=== PATIENT | female | born 1940 | race Caucasian/White ===

== ENCOUNTER 2017-07-09 15:54 | Emergency (ER) | payer MEDICARE, OTHER ==
[~2017-07-09] VITALS: Ht 175.3 cm; Wt 91.2 kg
--- OUTSIDE RECORDS SUMMARY | ~2017-07-09 | XMS | Clinical Summary ---
Demographics + + + | Address | [address] | | | [place] [address] | + + + | Home Phone [...] | + + + + + | luciana Moscoso | ECON | Unknown | | + + + + + | PARKER GOMEZ | ECON | [address] | | | | | [place] | | | | | [phone] | | + + + + + Care Team Providers + +------+ + | Care Trench Digger Name | Role | Phone | + +------+ + | Long Copeland MD | PP | | + +------+ + Source Comments [facility] Allergies + + + + + + [...] | + + + + + + Current Medications + + + +---------+------+------+-------+ | Prescription | Sig. | Disp. | Refills | Star | End | Statu | | | | | | t | Date | s | | | | | | Date | | | + + + +---------+------+------+-------+ | levothyroxine | Take 112 mcg by | | | | | Activ | | (LEVOTHROID) 112 mcg | mouth once daily. | | | | | e | | Oral Tablet | | | | | | | + + + +---------+------+------+-------+ | doxepin 75 mg Oral | Take 10 mg by mouth | | | | | Activ | | Capsule | once daily at | | | | | e | | | bedtime. | | | | | | + + + +---------+------+------+-------+ | gabapentin 300 mg | Take 300 mg by mouth | | | | | Activ | | Oral Capsule | three times daily. | | | | | e | + + + +---------+------+------+-------+ | DULoxetine | Take 60 mg by mouth | | | | | Activ | | (CYMBALTA) 60 mg | once daily. | | | | | e | | Oral Capsule, | | | | | | | | Delayed | | | | | | | | Release(E.C.) | | | | | | | + + + +---------+------+------+-------+ | simvastatin 40 mg | Take 40 mg by mouth | | | | | Activ | | Oral Tablet | once daily in the | | | | | e | | | evening. | | | | | | + + + +---------+------+------+-------+ | nabumetone | Take 750 mg by mouth | | | | | Activ | | (RELAFEN) 750 mg | two times daily. | | | | | e | | Oral Tablet | | | | | | | + + + +---------+------+------+-------+ | lisinopril 20 mg | Take 20 mg by mouth | | | | | Activ | | Oral Tablet | once daily. | | | | | e | + + + +---------+------+------+-------+ | clobetasol 0.05 % | Apply to affected | | | | | Activ | | Topical Cream | area two times | | | | | e | | | daily. Apply for up | | | | | | | | to 2 weeks. | | | | | | + + + +---------+------+------+-------+ | triamcinolone | Apply to affected | | | | | Activ | | acetonide [...] 55 | Instill 2 Sprays | | | | | Activ | | mcg Nasal Aerosol, | into each nostril | | | | | e | | [place] | once daily. | | | | | | + + + +---------+------+------+-------+ | | Take 1 Tab by mouth | | | | | Activ | | oxyCODONE-acetaminop [...] CALCIUM | Take by mouth. | | | | | Activ | | CARBONATE/VITAMIN D3 | | | | | | e | | (CALCIUM 600 + D | | | | | | | | OR) | | | | | | | + + + +---------+------+------+-------+ | ascorbic acid SR | Take 1,000 mg by | | | | | Activ | | (VITAMIN C) 1,000 mg | mouth two times | | | | | e | | Oral Tablet | daily. | | | | | | + + + +---------+------+------+-------+ | cyanocobalamin | Take 1,000 mcg by | | | | | Activ | | (VITAMIN B-12) 1,000 | mouth once daily. | | | | | e | | mcg Oral Tablet | | | | | | | + + + +---------+------+------+-------+ | folic acid 800 mcg | Take 800 mcg by | | | | | Activ | | Oral Tablet | mouth once daily. | | | | | e | + + + +---------+------+------+-------+ | cholecalciferol, | Take 1,000 Units by | | | | | Activ | | Vitamin D3, 1,000 | mouth every seven | | | | | e | | unit Oral Tablet | days. | | | | | | + + + +---------+------+------+-------+ | | Take by mouth. | | | | | Activ | | Glucosamine-Chondroi [...] ORAL | Take by mouth. | | | | | Activ | | | | | | | | e | + + + +---------+------+------+-------+ | Aspirin 81 mg Oral | Take 81 mg by mouth | | | | | Activ | | Tablet | once daily. | | | | | e | + + + +---------+------+------+-------+ | estradiol | Place 1 g into the | 42.5 g | 2 | 05/ | | Activ | | (ESTRACE) 0.01 % | vagina twice weekly | | | 10/29 | | e | | (0.1 mg/g) Vaginal | (on Friday and | | | 11 | | | | Cream | ). | | | | | | + + + +---------+------+------+-------+ | ciprofloxacin | Take 1 Tab by mouth | 14 Tab | 0 | 10/10 | | Activ | | (CIPRO) 500 mg Oral | every twelve hours. | | | 3 | | e | | Tablet | | | | 11 | | | + + + +---------+------+------+-------+ | acetaminophen | Take 1 Tab by mouth | | | 06/ | | Activ | | (TYLENOL) 500 mg | every four hours as | | | 620 | | e | | Oral Tablet | needed. | | | 11 | | | + + + +---------+------+------+-------+ Active Problems Not on file Family History + + +------+ + | [...] + +---------+ + | Alcohol Use | Drinks/We | oz/Week | Comments | | | ek | | | + + +---------+ + | Yes | | | 0-3/day- wine | + + +---------+ + + + + | Sex Assigned at | Date Recorded | | | | + + + | Not on file | | + + + Last Filed Vital Signs + + + + | Vital Sign | Reading | Time Taken | + + + + | Blood Pressure | 140/88 | 11/29/2010 10:56 AM PDT | + + + + | Pulse | 72 | 11/29/2010 10:56 AM PDT | + + + + | Temperature | 36.6 C (97.8 F) | 11/29/2010 10:56 AM PDT | + + + + | Respiratory Rate | 16 | 10/26/2010 9:21 AM PDT | + + + + | Oxygen Saturation | 97% | 10/26/2010 9:21 AM PDT | + + + + | Inhaled Oxygen | - | - | | Concentration | | | + + + + | Weight | 104.3 kg (229 lb 15 | 10/26/2010 6:00 AM PDT | | | oz) | | + + + + | Height | 174.5 cm (5' 8.7") | 10/26/2010 6:00 AM PDT | + + + + | Body Mass Index | 34.25 | 10/26/2010 6:00 AM PDT | + + + + Plan of Treatment + + + + + | Health Maintenance | Due Date | Last Done | Comments | + + + + + | MAMMOGRAM | | | | | | 9 | | | + + + + + | INFLUENZA VACCINE | | | | | (FLU SHOT) | 7 | | | + + + + + Results Not on filefrom Last 3 Months
--- OUTSIDE RECORDS SUMMARY | ~2017-07-09 | XMS | Clinical Summary ---
Demographics + + + | Address | [address] | | | [place] [address] | + + + | Home Phone [...] + | PARKER GOMEZ | ECON | [address] | | | | | [place] | | | | | [phone] | | + + + + + Care Team Providers + +------+ + | Care Reading Aide Name | Role | Phone | + +------+ + | Long Copeland MD | PP | | + +------+ + Source Comments [facility] In[facility] Allergies + + + + + + [...] | | | | e | | Aspers | once daily. | | | | [...]
[~2017-07-09 15:54] MED LIST: ADVAIR 100-501 EACH INH; ALPRAZOLAM0.25 MG PO; BREO ELLIPTA I1 EACH INH; CYCLOBENZAPRINE10 MG PO; CYMBALTA30 MG PO; DOXEPIN HCL75 MG PO; DULOXETINE HCL60 MG PO; GABAPENTIN300 MG PO; LEVAQUIN500 MG PO; LEVOTHYROXINE112 MCG PO; LISINOPRIL20 MG PO; NABUMETONE750 MG PO; NALTREXONE HCL5 GM PO; NASACORT10.8 ML NAS; OXYCODONE HCL5 MG PO; PREDNISONE20 MG PO; SIMVASTATIN20 MG PO; SIMVASTATIN40 MG PO; VENTOLIN HFA18 GM INH
[2017-07-09] MEDS ORDERED: AUGMENTIN 875-1 EACH PO (17:51)
[2017-07-09] MEDS ORDERED: METHYLPREDNISOLO4 M1 PO (17:51)
[2017-07-09] MEDS ORDERED: TESSALON PERLE100 MG PO (17:51)
== END 2017-07-09 18:22 | disposition home or self-care (01) ==
LOC: ED 15:54
DX: J40 Bronchitis, not specified as acute or chronic (principal); J06.9 Acute upper respiratory infection, unspecified; R94.5 Abnormal results of liver function studies; J44.9 Chronic obstructive pulmonary disease, unspecified; I10 Essential (primary) hypertension; E78.00 Pure hypercholesterolemia, unspecified; Z88.2 Allergy status to sulfonamides; Z88.5 Allergy status to narcotic agent; Z79.899 Other long term (current) drug therapy
CPT/HCPCS: 71046; 80053; 81001; 85025; 94640; 99283

== ENCOUNTER 2017-10-18 10:25 | Inpatient (IN) | payer MEDICARE, OTHER ==
[~2017-10-18] VITALS: Ht 175.3 cm; Wt 91.2 kg
[~2017-10-18 10:25] MED LIST changes: +AUGMENTIN 875-1 EACH PO; +METHYLPREDNISOLO4 M1 PO; +TESSALON PERLE100 MG PO
--- NOTE | 2017-10-18 15:30 | NUR ---
PT CAME TO THE UNIT VIA STRETCHER FROM THE ED AT APPROXIMATELY 1455. PT WAS ABLE TO AMBULATE INDEPENDENTLY AND TOLERATED WELL. PT WAS HOOKED UP TO LOW INTERMITTENT SUCTION VIA NG TUBE, LIGHT FROTHY DRAINAGE CONSISTENT. PT DENIES MUCH PAIN BUT TENDERNESS NOTED IN THE LEFT LOWER QUADRANT. PT STATES SHE HAS CHRONIC FIBROMYALGIA. NO DISTRESS.
--- NOTE | 2017-10-18 18:42 | NUR ---
PT HAS HAD A GOOD SHIFT, AND DUE TO HER CHRONIC FIBROMYALGIA, SHE IS HAVING GENERALIZED PAIN PRIOR TO SHIFT END, MEDICATED WITH PRN PAIN MANAGEMENT. NG IS DRAINING CONSISTENTLY, AND PT DENIES NAUSEA. PT IS FORGETFUL, BUT AWARE THAT SHE HAS THIS PROBLEM. SHE IS ALERT AND ORIENTED, AND IS A RELIABLE HISTORIAN, ALTHOUGH SHE STRUGGLES TO RECALL DETAILS. 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
--- NOTE | 2017-10-19 00:39 | NUR ---
medicated with ativan 1mg iv per anxiety
--- NOTE | 2017-10-19 02:33 | NUR ---
PATIENT IS ASLEEP, PER RN LEE LET PATIENT SLEEP, NO V/S TAKEN FOR 0200.
--- NOTE | 2017-10-19 06:16 | NUR ---
Pt continues NPO, NGT r nare patent to Low Intermediate Wall suction, drainnage of green colored thick discharge present.150cc this shift. No c/o abd pain. faint bowel tones present. Has been up to brp x1, voided, no bm. Was medicated with 1mg Ativan last night per increased anxiety and c/o h/a. effective, ice packs and wet cold towel to forehead were not effective prior to Ativan. No 0200 vitals done due to pts requests as she stated "I have been awake more than 24 hours now, I would like some sleep," data acquisition technician in room at at this time. Pt turn self in bed. HOB elevated to 30 degrees. IVF infusing w/o problems
--- NOTE | 2017-10-19 06:47 | NUR ---
Pt ambulated with PART MAKER around hallways, tolerated well, back to bed. NGT back to [facility]. pt on room air
--- NOTE | 2017-10-19 07:30 | NUR ---
PATIENT CALLED FOR [facility], THIS MARKETING ASSISTANT MANAGER LOCATED ONE. PATIENT DENIES ANY OTHER NEEDS. CALL LIGHT IN REACH.
--- NOTE | 2017-10-19 08:30 | NUR ---
PT STATES SHE FEELS MUCH BETTER TODAY, NO DISTRESS, DENIES NAUSEA AND COMPLAINS OF PAIN WITH PALPATION TO ABDOMEN. CONTINUOUS INTERMITTENT SUCTION IN PLACE, NPO, OUTPUT CONSISTENT, AMBULATING IN ROOM WITHOUT DIFFICULTY. DENIES SOB. WILL CONTINUE TO MONITOR.
--- NOTE | 2017-10-19 09:49 | NUR ---
PATIENT AWAKE IN BED, DANA UREÑA TO MOISTEN MOUTH, GIVEN PER VIRI NORRIS. VITALS AND I/OS CHARTED, CALL LIGHT IN REACH
--- NOTE | 2017-10-19 09:56 | CONS ---
[facility] [address] [place], [place] [address] Signed DATE OF CONSULTATION: CHIEF COMPLAINT: Generalized abdominal pain with nausea and vomiting. HISTORY OF PRESENT ILLNESS: Howie is a 76-year-old female with prior abdominal surgeries to include a sigmoid resection for diverticular disease with Dr. Davis, laparoscopic cholecystectomy, and a partial hysterectomy for a positive Pap smear, who over the last day was having generalized abdominal pain and cramping with abdominal distention, nausea, and vomiting. She tried to drink some water later and started vomiting again. She finally came to the emergency room for evaluation. In the emergency room, her laboratory works fine, but she does show a little distention and tenderness just below the umbilicus. A CT scan showed jejunal fluid-filled loops of small bowel measuring about 48 mm. The ileum is decompressed. Consequently, I was asked to admit her as a general surgeon on-call. In the meantime, she has been given some IV fluids and an NG tube was then placed with return of clear gastric fluid. PAST MEDICAL HISTORY: 1. Bronchiolitis. 2. Fibromyalgia. 3. Hypertension. 4. Hypercholesterolemia. 5. Small hiatal hernia. 6. Diverticulosis. 7. Osteoarthritis. 8. Irritable bowel syndrome. 9. Colonic polyps. PAST SURGICAL HISTORY: 1. Sigmoid colectomy for diverticular disease with Dr. Franck Davis. 2. Laparoscopic cholecystectomy. 3. Bilateral carpal tunnel release. 4. Bilateral foot surgeries with metal remaining in her left ankle. 5. A partial hysterectomy for positive Pap smear. 6. Multiple colonoscopies with her last one about [address] Francisco. SOCIAL HISTORY: She has smoked for a couple of years after she was and never any since. She used to drink heavy, but now she says she only has a few drinks in a month. She is re- to Matthew at [phone]. They prefer the [facility]. Howie Boyd is her primary care provider. She has 3 children. 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 They live in [place] just off a town. They prefer the [facility]. Dr. Franck Major is her orthopedic surgeon. Electronically Signed By: KAM SALAS MD 10/19/17 0956 PATIENT NAME: HOWIE GOMEZ CONSULTATION DATE OF : 36 REPORT #: [id number] PHYSICIAN: KAM SALAS MD PCP: HWOIE BAÑUELOS REPORT IS CONFIDENTIAL AND NOT TO BE RELEASED WITHOUT AUTHORIZATION [facility] [address] [place], [place] [address] Signed FAMILY HISTORY: Mom had multiple myeloma, but of congestive heart failure in her 80s. Dad developed multiple myeloma and from that. REVIEW OF SYSTEMS: She had 10 systems reviewed and I put the pertinent positives in the above. ALLERGIES: Sulfa and codeine. MEDICATIONS: 1. Doxepin. 2. Levothyroxine. 3. Oxycodone intermittently throughout the year. 4. Nasacort. 5. Advair. 6. Alprazolam. 7. Cymbalta. 8. Ventolin. 9. Probiotic. PHYSICAL EXAMINATION: VITAL SIGNS: Her blood pressure is 146/71, heart rate is 80, respiratory rate 18, and temperature is 98.5. She is 95% on 2 L nasal cannula. She is 5 feet 9 inches and 90 kg. The NG tube shows just 10 or 15 mL of clear gastric fluid. GENERAL: Howie is a 76-year-old female, lying supine in her hospital bed. She is alert, awake, and interactive. She is not systemically ill or toxic. Her memory is not the best, but given time, she is actually a pretty good historian. LUNGS: Clear to auscultation bilaterally. HEART: Regular rate and rhythm. ABDOMEN: Shows some mild distention. She is a little tender below the umbilicus, really no tympany. LABORATORY DATA: Her white blood cell count is 9.2, hemoglobin 14, neutrophils 73. Her potassium is 3.5, BUN 23, and creatinine 0.9. Liver function tests are negative. Albumin is 4.1. Chest x-ray shows the NG tube in place and her lungs are clear. CT scan of abdomen and pelvis shows her common bile duct fairly dilated after a gallbladder surgery, but it tapers nicely through the pancreas. The pancreatic duct is fine. Her jejunum is fluid-filled in about 48 mm in diameter. The ileum is decompressed, probably is transition somewhere in the middle abdomen or down headed into the pelvis. ASSESSMENT AND PLAN: Electronically Signed By: KAM SALAS MD 10/19/17 0956 PATIENT NAME: HOWIE GOMZE CONSULTATION DATE OF : 36 REPORT #: [id number] PHYSICIAN: KAM SALAS MD PCP: HOWIE BAÑUELOS REPORT IS CONFIDENTIAL AND NOT TO BE RELEASED WITHOUT AUTHORIZATION [address] [address] Signed Howie is a 76-year-old female, who presents with small bowel obstruction, most likely from some adhesions. At this point, we are going to treat her conservatively with IV fluids and NG tube decompression and see if she can straighten this out. If not, she is going to need surgery here in a few days. I have reviewed this with Howie in detail. She has expressed understanding and wishes to proceed. MD JUDD Brown/KATHRINL /[id number] cc: MD Howie Brown PA Copies: KAM SALAS MD, LINDA PA ~ Electronically Signed By: KAM SALAS MD 10/19/17 0956 PATIENT NAME: HOWIE GOMEZ CONSULTATION DATE OF : 36 REPORT #: [id number] PHYSICIAN: KAM SALAS MD PCP: HOWIE BAÑUELOS REPORT IS CONFIDENTIAL AND NOT TO BE RELEASED WITHOUT AUTHORIZATION
--- NOTE | 2017-10-19 12:44 | NUR ---
PT HAS FAMILY VISITING AT BEDSIDE. PT DENIES DISTRESS, NO NAUSEA OR PAIN. OUTPUT VIA NG CONTINUES TO BE CONSISTENT, BROWNISH GREEN. WILL CONTINUE TO MONITOR.
--- NOTE | 2017-10-19 15:08 | NUR ---
CALLED DR SALAS REGARDING PT REQUEST OF ADVAIR VS ALBULEROL. CALLED RT TO MAKE SURE WE HAVE IT, KB STATED WE HAVE PULMICORT. DR ORDERED PULMICORT. AND DC'D THE ALBULTEROL.
--- NOTE | 2017-10-19 16:00 | NUR ---
PT HAS REQUESTED PULMICORT A SUBSTITUTION FOR ADVAIR, WITH RT CONSULT. PT STATES THAT HER ALLERGIES ARE WORSENING THIS AFTERNOON. PT HAS HAD A FEW BREATHING TREATMENTS TODAY, AND DOES NOT WANT PAIN MANAGEMENT UNTIL CLOSE TO BEDTIME, REFUSED ALL OTHER PRNS. ABDOMEN IS LESS TENDER TO PALPATION THIS AFTERNOON.
--- NOTE | 2017-10-19 17:38 | NUR ---
PATIENT RESTING IN BED, TALKING WITH YOSEPH HARRINGTON. VITALS AND I&O'S TAKEN BY YOSEPH HARRINGTON. PATIENT CALL LIGHT IN REACH. NO OTHER NEEDS AT THIS TIME.
--- NOTE | 2017-10-19 18:13 | NUR ---
PT HAS HAD A CONSISTENT AMOUNT OF OUTPUT TO NG WITH INTERMITTENT SUCTION. PT HAS INCREASING ALLERGY SYMPTOMS WHICH WILL HOPEFULLY BE MANAGED BY PULMICORT. PT HAS AMBULATED SUCCESSFULLY TODAY.
--- NOTE | 2017-10-19 20:54 | NUR ---
coop with assessment, ngt r nare patent, draining dark brown-green colored thick discharge. patient stated she was passing gas
--- NOTE | 2017-10-19 22:44 | NUR ---
medicated with ativan 1mg iv c/o anxiety. sleep pack given, cooperative
--- NOTE | 2017-10-20 03:01 | NUR ---
UP TO BRP, VOIDED, BACK TO BED, CONTINUES NPO. NGT R NARE PATENT, DRAINING BROWN-GREEN DISCHARGE. PT STATS PASSING GAS, NOBM, NO C/O ABD PAIN. WAS MEDICATED EARLIER IN SHIGT WITH ATIVAN PER ANXIETY, EFFECTIVE. IVF INFUSING W/O PROBLEMS
--- NOTE | 2017-10-20 03:08 | NUR ---
PATIENT CALLED TO USE THE BATHROOM. 1 PA STANDBY. PATIENT WET THE BED. CHANGED BED LINEN. PATIENT IS BAD IN BED. HOOKED BACK SUCTION. CALL LIGHT IN REACH.
--- NOTE | 2017-10-20 05:41 | NUR ---
PT RESTING, NO FURTHER C/O ANXIETY OR RESTLESSNESS. NGT R ROXIE PATENT, DRAINING GREEN-BROWN DRAINAGE, ON LIWS. PT STATED PASSING GAS, NO BM YET. IVF INFUSING W/O PROBLEMS. NO C/O N/V. NO C/O PAIN
--- NOTE | 2017-10-20 06:33 | NUR ---
UP TO BRP, VOIDED, NO BM YET, NO C/O N/V OR PAIN. ONE PERSON ASSIST, TOLERATED WELL. SAT ON EDGE OF BED FOR SEVERAL MINUTES, BACK TO BED. NGT FLUSHES EASILY, PLACED BACK ON LIWS. NO FURTHER C/O ANXIETY.
--- NOTE | 2017-10-20 08:08 | NUR ---
PT ABOUT TO AMBULATE IN HALLS WITH SBA WITH YOSEPH HOWARD. SHOWERED THIS MORNING. THIS RN ADMINISTERED SCHEDULED MEDICATIONS. REPORTS NO PAIN. DOES HAVE CHRONIC PAIN D/T FIBROMYALGIA. NG TUBE CLAMPED FOR WALK. FLUSHED WITH 35ML TAP WATER. NO NAUSEA.
--- NOTE | 2017-10-20 08:23 | NUR ---
THIS FITNESS AND WELLNESS INSTRUCTOR ASSISTED PATIENT UP TO BATHROOM. PATIENT SET UP IN SHOWER AND SHOWERED INDEPENTLY. PATIENT'S LINENS CHANGED. PATIENT PERFORMED ORAL CARE. THIS FITNESS AND WELLNESS INSTRUCTOR ASSISTED PATIENT TO WALK APPROXIMATELY TWO LAPS [facility]OUND [facility]. PATIENT BACK IN BED. NG TUBE RECONNECTED, RN NOTIFIED TO RECONNECT IV. PATIENT CALL LIGHT IN REACH. PATIENT STATES THE DOCTOR DISCUSSED CUTTING BACK FLUIDS TO HELP WITH HER FREQUENT URINATION AND REQUESTED TO SPEAK TO THE RN ABOUT THE MATTER. RN NOTIFIED. PATIENT RESTING, NO OTHER NEEDS AT THIS TIME.
--- NOTE | 2017-10-20 09:52 | NUR ---
PATIENT UP TO BATHROOM, BACK TO BED. PATIENT DRESSED IN NEW GOWN AFTER NG DRAINAGE SOILED THE PREVIOUS GOWN. PATIENT RESTING IN BED, CALL LIGHT IN REACH. NG TUBE RECONNECTED. NO OTHER NEEDS AT THIS TIME.
--- NOTE | 2017-10-20 10:57 | NUR ---
PT CALL LIGHT ON. PT REQUESTS ASSISTANCE UP TO RESTROOM. NG TUBE CLAMPED AND SEQURED. PT ASSISTED TO RESTROOM. VOIDS W/O DIFFICULTY. PT BACK TO BED. NG TUBE BACK TO INTERMITANT SUCTION. IV INFUSING AND PLUGGED INTO WALL. BED RAILS UP. CALL LIGHT WITHIN REACH. BELONGINGS WITHIN REACH.
[2017-10-20] MEDS ORDERED: CYMBALTA60 MG PO (11:14)
[2017-10-20] MEDS ORDERED: PROBIOTIC1 EAC1 PO (11:21)
[2017-10-20] MEDS ORDERED: FISH OIL 1,0001 EAC3 PO (11:22)
[2017-10-20] MEDS ORDERED: VITAMIN B COMP1 EACH PO (11:23)
--- NOTE | 2017-10-20 11:23 | NUR ---
SISTER UPDATED ON PLAN PER PATIENT REQUEST.
[2017-10-20] MEDS ORDERED: CALCIUM + VITA1 EACH PO (11:24)
[2017-10-20] MEDS ORDERED: VITAMIN C500 M4 PO (11:25)
--- NOTE | 2017-10-20 12:52 | NUR ---
PATIENT RESTING IN BED, EYES CLOSED. PATIENT STATES SHE IS TOO EXHAUSTED TO MOVE TO SHOWER CHAIR AT THIS TIME. THIS OVERHEAD IRRIGATOR WILL REAPPROACH AT A LATER TIME.
--- NOTE | 2017-10-20 12:59 | NUR ---
PATIENT CALLED FOR ASSISTANCE, STATED SHE WAS TOO HOT. THIS RN RESIDENTIAL NOTICED PATIENTS NASOGASTRIC TUBING WAS NOT CORRECTLY CONNECTED AND SUCTION WAS NOT FUNCTIONAL. PATIENT STATES HER LOWER ABDOMEN IS PAINFUL TO TOUCH, AND ACHEY WHILE RESTING AND LAYING STILL. PATIENT RATES PAIN LEVEL AT A 2 AND STATES HER PAIN LEVEL HAD PREVIOUSLY BEEN A 0 UNTIL SHE RETURNED FROM THE BATHROOM WITH ANOTHER STAFF MEMBER'S ASSISTANCE. PATIENT STATES SHE IS UNCOMFORTABLE FROM THE PAIN, BUT HAS DIFFICULTY DESCRIBING THE PAIN. RN NOTIFIED.
--- NOTE | 2017-10-20 13:29 | NUR ---
PT LAYING IN BED, WITH TV ON. SHE WELCOMED ME IN-SHE IS ALERT AND ORIENTED. NG TUBE IN PLACE, AND APPEARS TO BE WORKING. PT EXPRESSED DISCOMFORT FROM NG TUBE. SHE ALSO TOLD ME THAT YEARS AGO SHE HAD A LARGE PART OF HER COLON REMOVED, BUT THIS IS NEW TO HER. PT EXPRESSED CONCERN THAT DR SALAS IS LEAVING OUT OF TOWN WED, AND THAT SHE WILL HAVE TO SEE A NEW SURGEON. PT REQUESTED PRAYER, AND WE PRAYED FOR STRENGTH AND COMFORT. WILL FOLLOW NEEDED
--- NOTE | 2017-10-20 13:29 | NUR ---
PATIENT RESTING IN BED, EYES CLOSED. CALL LIGHT IN REACH, NO OTHER NEEDS AT THIS TIME.
--- NOTE | 2017-10-20 14:59 | NUR ---
PATIENT CALLED FOR ASSISTANCE STATING SHE COULDNT HEAR HER NG TUBE SUCTIONING ANYMORE. THIS DIRECTOR OF STAFF DEVELOPMENT EXAMINED NG TUBE AND NOTICED TUBE DID NOT SUCTION EVEN WHEN HOOKED UP CORRECTLY ON REGULAR SUCTION. RN NOTIFIED, RN RE-EXAMINED NG TUBE AND GOT TUBE FLOWING CORRECTLY. THIS DIRECTOR OF STAFF DEVELOPMENT ASSISTED PATIENT UP TO BATHROOM, BACK TO BED. PATIENT CALL LIGHT IN REACH. NG TUBE FUNCTIONING PROPERLY. NO OTHER NEEDS AT THIS TIME.
--- NOTE | 2017-10-20 15:00 | NUR ---
FLUSHED NGT 25ML. 50ML OUTPUT FROM NGT ON THIS SHIFT.
--- NOTE | 2017-10-20 16:11 | NUR ---
red drainage noted in NG tube. NG to LIS after up to bathroom.
--- NOTE | 2017-10-20 17:09 | NUR ---
PUMP ALARMING, IV FLUID BAG EMPTY. NEW BAG HUNG. PT WATCHING TV. BED RAILSUP.CALL LIGHT WITHIN REACH.
--- NOTE | 2017-10-20 18:01 | NUR ---
NGT TO LIS. SHOWERED THIS MORNING. D5LR DECREASED TO 100ML/HR. SMALL BOWEL STUDY TOMORROW. LABS IN THE MORNING. FLUSHED NGT X2. ENCOURAGE AMBULATION IN HALLS. NPO. CEPACOL LOZENGES PRN. POSITIVE FLATUS.
--- NOTE | 2017-10-20 19:16 | NUR ---
IN ROOM FOR REPORT, PT IS AWAKE IN BED. PT DENIES NEEDS AT THIS TIME. CALL LIGHT IS WITHIN REACH.
--- NOTE | 2017-10-20 21:56 | NUR ---
IN ROOM TO ADMINISTER DILAUDID AND ATIVAN. PT STATES THROAT PAIN AND ABD PAIN ARE BOTHERING HER. ALSO HELPED HER TO THE RESTROOM AND BACK TO BED.
--- NOTE | 2017-10-20 23:07 | NUR ---
PT IS RESTING WITH EYES CLOSED, RESPIRATIONS ARE EVEN AND NONLABORED. CALL LIGHT IS WITHIN REACH.
--- NOTE | 2017-10-21 01:44 | NUR ---
PT STATES SHE IS HAVING A HARD TIME RELAXING AND IS FEELING ANXIOUS ABOUT TESTS TOMORROW. ADMINISTERED 1 MG LORAZEPAM. PT DENIES FURTHER NEEDS.
--- NOTE | 2017-10-21 04:01 | NUR ---
PT IS RESTING WITH EYES CLOSED, RESPIRATIONS ARE EVEN AND NONLABORED. CALL LIGHT IS WITHIN REACH.
--- NOTE | 2017-10-21 05:34 | NUR ---
PT IS A SBA TO THE RESTROOM AND USES A WALKER WHEN AMBULATING IN THE PURDY. NG TUBE IS DRAINING WELL WITH GREEN BILE. SHE IS NPO AT THIS TIME WITH MOUTH SWABS AT BEDSIDE. SHE REQUIRED ATIVAN X2 THROUGH THE NIGHT AND DILAUDID X1. IV IS INFUSING D5LR AT 100MLS/HR. BP IS RUNNING HIGH BUT NOT OVER PARAMETERS FOR CALLING THE DR. PT REPORTS SHE IS PASSING GAS, NO BM OR NAUSEA LAST NIGHT.
--- NOTE | 2017-10-21 06:00 | NUR ---
PT IS RESTING WITH EYES CLOSED, RESPIRATIONS ARE EVEN AND NONLABORED.
--- NOTE | 2017-10-21 08:02 | NUR ---
PATIENT ASSISTED TO RESTROOM. 1 PERSON SBA. PATIENT AMBULATED IN THE HALLWAY - X2 LARGE LAPS. PATIENT NOW SITTING UP IN CHAIR WATCHING TV. CALL LIGHT WITHIN REACH. NO OTHER NEEDS AT THIS TIME.
--- NOTE | 2017-10-21 09:20 | NUR ---
PT OFF FLOOR AT 0900 FOR SMALL BOWEL STUDY
--- NOTE | 2017-10-21 10:35 | NUR ---
PT BACK FROM BOWEL STUDY PROCEDURE.
--- NOTE | 2017-10-21 12:08 | NUR ---
results back from imaging. reported the results to dr garces. new orders received. will advance to full liquid diet. decrease IVF to 55cc/hr. and remove ng tube
--- NOTE | 2017-10-21 12:46 | NUR ---
NG TUBE REMOVED. IVF AT 55CC/HR. K RIDER INFUSING NOW. FULL LIQUID TRAY DELIVERED TO ROOM. PATIENT AMBULATED SEVERAL LAPS IN HALLS AND SITTING UP IN RECLINER NOW EATING LUNCH. PATIENT ECSTATIC ABOUT GOOD RESULTS ON IMAGING THIS MORNING.
--- NOTE | 2017-10-21 13:00 | NUR ---
PATIENT AMBULATED IN HALLWAY - X2. PATIENT SITTING UP IN CHAIR EATING LUNCH NOW. CALL LIGHT WITHIN REACH. NO OTHER NEEDS AT THIS TIME.
--- NOTE | 2017-10-21 14:04 | NUR ---
PT UP AND WALKING IN HALLS WITH YOSEPH EPSTEIN. NG TUBE OUT-PT SAYS THAT GOD HEARD OUR PRAYERS! SHE ALSO MENTIONED THAT HER SON IN LAW'S MED REPORT IS BETTER THAN PREVIOUSLY EXPECTED. PT WAS SO PLEASED AND GRATEFUL. WILL CONTINUE TO FOLLOW NEEDED
--- NOTE | 2017-10-21 14:18 | NUR ---
PATIENT SITTING UP IN BED. PATIENT STATES THAT THERE IS A BURNING FEELING WHERE THE IV IN HER LEFT HAND IS. RN NOTIFIED. RN IN ROOM. CALL LIGHT WITHIN REACH. NO OTHER NEEDS AT THIS TIME.
--- NOTE | 2017-10-21 18:04 | NUR ---
AMBULATED HALLS SEVERAL TIMES TODAY. NG TUBE REMOVED. IVF DECREASED TO 55CC/HR. ADVANCED TO FULL LIQUID DIET. LOOSE STOOLS-- LIKELY D/T CHANGE IN DIET. LIKEY HOME TOMORROW. IND/SBA IN ROOM TO BATHROOM. BP BETTER MANAGED TODAY.
--- NOTE | 2017-10-21 18:18 | NUR ---
PATIENT ASSISTED TO RESTROOM. SBA. PATIENT SITTING UP IN BED WATCHING TV NOW. FRESH ICE WATER. CALL LIGHT WITHIN REACH. NO OTHER NEEDS AT THIS TIME.
--- NOTE | 2017-10-21 19:07 | NUR ---
IN ROOM FOR REPORT, PT IS AWAKE IN BED AND DENIES NEEDS AT THIS TIME. CALL LIGHT IS WITHIN REACH.
--- NOTE | 2017-10-21 20:06 | NUR ---
PATIENT CALLED TO USE THE BATHROOM. 1 PA STANDBY. PATIENT IS BACK IN BED. CALL LIGHT IN REACH.
--- NOTE | 2017-10-21 21:00 | NUR ---
IN ROOM TO ASSESS PT AND ADMINISTER MEDICATIONS. SHE WOULD LIKE TO TAKE ATIVAN A LITTLE LATER. PT STATES SHE HAS A LITTLE PAIN IN ABD BUT STATES IT IS NORMAL FOR HER. SHE HAD SEVERAL BMS TODAY. PT DENIES FURTHER NEEDS AT THIS TIME.
--- NOTE | 2017-10-21 23:00 | NUR ---
PT'S IV INFILTRATED, IV REMOVED AND NEW ONE STARTED. PT TOLERATED WELL. PT DENIES FURTHER NEEDS AT THIS TIME.
--- NOTE | 2017-10-22 01:41 | NUR ---
PT IS RESTING WITH EYES CLOSED, RESPIRATIONS ARE EVEN AND NONLABORED.
--- NOTE | 2017-10-22 02:33 | NUR ---
IN ROOM TO ADMINISTER VASOTEC AND ASSESS PT, ALSO HELPED PT TO THE RESTROOM AND BACK TO BED. PT DENIES FURTHER NEEDS AT THIS TIME.
--- NOTE | 2017-10-22 04:28 | NUR ---
PT IS RESTING WITH EYES CLOSED, RESPIRATIONS ARE EVEN AND NONLABORED. CALL LIGHT IS WITHIN REACH.
--- NOTE | 2017-10-22 05:07 | NUR ---
PT SLEPT WELL THROUGH THE NIGHT AND DENIED PAIN. SHE HAS A NEW IV IN HER RIGHT FOREARM INFUSING D5LR @ 55MLS PER HOUR. SHE IS RECEIVING VASOTEC Q6H WHICH IS CONTROLING HER HTN. SHE AMBULATES WITH SBA AND WHEN WALKING IN PURDY USES A FWW. PLAN IS TO DC TODAY. SHE IS TOLERATING A CLEAR LIQUID DIET.
--- NOTE | 2017-10-22 08:00 | NUR ---
PT SITTING UP IN BED ATE ALL OF BREAKFAST, SVETLANA WELL. REPORTS POSITIVE FLATUS, DENIES PAIN, NAUSEA, OR OTHER CONCERNS. SBA TO RESTROOM. PT UP DOING AM CARES INDEPENDENTLY.
--- NOTE | 2017-10-22 09:25 | NUR ---
PATIENT RESTING IN BED, CALL LIGHT IN REACH, WAITING FOR DISCHARGE INSTRUCTIONS. NO OTHER NEEDS AT THIS TIME.
--- NOTE | 2017-10-28 08:16 | DS ---
[facility] [address] [address], [place] [address] Signed ADMISSION DATE: 10/21/2017 DISCHARGE DATE: 10/22/2017 FINAL DIAGNOSIS: Small bowel obstruction. PROCEDURES: 1. CT scan of abdomen and pelvis. 2. Small bowel follow-through. HISTORY OF PRESENT ILLNESS: Howie is a 76-year-old female with previous abdominal surgery to include her sigmoid colectomy for diverticular disease, laparoscopic cholecystectomy, and a partial hysterectomy. She had presented to the emergency room with 1-day history of generalized abdominal distention and pain with nausea and vomiting. Her exam showed that she had some tenderness just below the umbilicus and was mildly distended throughout. White count was normal and a chest x-ray was fine. The CT scan, however, showed that the jejunum was fluid-filled up to 48 mm in diameter and the ileum was decompressed. She also has a dilated common bile duct after the gallbladder surgery. I was asked to admit her as a general surgeon on-call. HOSPITAL COURSE: Howie was admitted as above and an NG tube was placed with return of moderately clear bilious gastric fluid. She was hydrated off for pain control and nausea medication. She was making improvements and she has a small amount of flatus over a couple of days. Her abdominal distention had resolved and the NG tube output had decreased. We therefore sent her for a small bowel follow-through yesterday and she did absolutely fine. There is no distention to the small bowel and the contrast went through to the colon within 60 minutes. Consequently, we gave her a full liquid diet yesterday, which she has tolerated quite nicely. She has continued to have flatus and a couple of good bowel movements. Her abdomen is completely benign without any distention, pain, or cramping. Due to her progress here, we are going to be discharging her home. DISCHARGE PLANS AND MEDICATIONS: Howie is going to be discharged to home with no new prescriptions. She can resume her chronic medications at home. She is welcome to increase her diet as tolerated. She can have activity as tolerated. She is welcome to follow up in my office as needed. She can certainly return in the emergency room any time if her symptoms return. She has expressed understanding and agrees the above plan. Electronically Signed By: KAM SALAS MD 10/28/17 0816 PATIENT NAME: HOWIE GOMEZ DISCHARGE SUMMARY DATE OF : 36 REPORT #: [id number] PHYSICIAN: KAM SALAS MD PCP: HOWIE BAÑUELOS REPORT IS CONFIDENTIAL AND NOT TO BE RELEASED WITHOUT AUTHORIZATION [facility] [address] [place] [id number] Signed MD JUDD Brown/KATHRINL /[id number] cc: KAY Douglass MD Copies: HOWIE BAÑUELOS ANDREW L MD ~ Electronically Signed By: KAM SALAS MD 10/28/17 0816 PATIENT NAME: HOWIE GOMEZ DISCHARGE SUMMARY DATE OF : 36 REPORT #: [id number] PHYSICIAN: KAM SALAS MD PCP: HOWIE BAÑUELOS REPORT IS CONFIDENTIAL AND NOT TO BE RELEASED WITHOUT AUTHORIZATION
== END 2017-10-22 09:30 | disposition home or self-care (01) | DRG 390 ==
LOC: ED 10:25 → MS 10:27 → ED 13:30 → MS 14:39
PROVIDERS: ADMIT Colon & Rectal Surgery
DX: K56.609 Unspecified intestinal obstruction, unspecified as to partial versus complete obstruction (principal); M79.7 Fibromyalgia; E78.00 Pure hypercholesterolemia, unspecified; I10 Essential (primary) hypertension; K44.9 Diaphragmatic hernia without obstruction or gangrene; E66.9 Obesity, unspecified; K57.90 Diverticulosis of intestine, part unspecified, without perforation or abscess without bleeding; M19.90 Unspecified osteoarthritis, unspecified site; K58.9 Irritable bowel syndrome, unspecified; Z86.010 Personal history of colon polyps; Z87.891 Personal history of nicotine dependence; Z90.49 Acquired absence of other specified parts of digestive tract; Z88.5 Allergy status to narcotic agent; Z88.2 Allergy status to sulfonamides; Z79.891 Long term (current) use of opiate analgesic; Z79.51 Long term (current) use of inhaled steroids; Z79.899 Other long term (current) drug therapy; Z68.29 Body mass index [BMI] 29.0-29.9, adult
CPT/HCPCS: 36415; 43752; 71045; 74177; 74250; 80048; 80053; 81001; 83735; 84100; 84134; 85025; 94640; 94667; 94668; 96361; 96374; 96375; 99285; J1170; J1644; J2060; J2405; J3475; J3480; J7060; J7120; Q9967

== ENCOUNTER 2018-01-26 07:31 | Day surgery (SDC) | payer MEDICARE, OTHER ==
[~2018-01-26] VITALS: Ht 175.3 cm; Wt 91.2 kg
[~2018-01-26 07:31] MED LIST changes: +CALCIUM + VITA1 EACH PO; +CYMBALTA60 MG PO; +FISH OIL 1,0001 EAC3 PO; +PROBIOTIC1 EAC1 PO; +VITAMIN B COMP1 EACH PO; +VITAMIN C500 M4 PO
--- NOTE | 2018-01-26 08:58 | NUR ---
01/26/18 0858 Astrid Parra 0851- PT ARRIVES TO PACU AWAKE AND TALKING WITH STAFF. IS DROWSY. PT REPORTS NO PAIN, NAUSEA, OR DIZZINESS. PT IS ABLE TO PASS FLATUS. 0856- PT TURNED SELF TO BACK. A PILLOW PLACED UNDER HER KNEES PER REQUEST.
--- NOTE | 2018-01-27 11:14 | OR ---
[facility] [address] [place], [place] [address] Signed DATE OF OPERATION: 01/26/2018 SURGEON: Yovana Rocha MD PREOPERATIVE DIAGNOSES: 1. History of sigmoid resection for diverticular disease greater than 10 years ago. 2. Episodic diarrhea and constipation. POSTOPERATIVE DIAGNOSES: 1. Diverticular changes of the remaining left colon, otherwise no evidence of colitis. 2. Small polyp at 60 cm (excised). PROCEDURE PERFORMED: Total colonoscopy to cecum with biopsy of cecum and excision of polyp at 60 cm. ANESTHESIA: Intravenous sedation, fentanyl 100 mcg, and versed 4 mg. INDICATION: This 77-year-old white woman is a patient of Howie Rojo. She underwent sigmoid resection for diverticular disease by Dr. Franck Davis a number of years ago, certainly greater than 10 years. She has complained of episodic diarrhea and constipation, but no blood per rectum. She was admitted to undergo colonoscopy on that basis. FINDINGS: The prep was good. Complete colonoscopy was undertaken to the cecum. There was no sign of colitis or proctitis. She did have remaining diverticular changes of the left colon. There was a polyp at 60 cm, which was excised. A biopsy of the cecum was obtained to rule out occult colitis. DESCRIPTION OF PROCEDURE: The patient was brought to the endoscopy suite and placed in lateral decubitus position and given intravenous sedation to the point of slurred speech and nystagmus. Digital rectal examination was normal. An Olympus video colonoscope was passed in the rectum and manipulated throughout the colon, noting diverticular changes in the left colon. The anastomosis was widely patent. The scope was advanced ultimately to the cecum. Ileocecal valve and appendiceal orifice appeared normal, biopsies were taken of the cecum, it did not appear Electronically Signed By: YOVANA ROCHA MD 01/27/18 1114 PATIENT NAME: HOWIE GOMEZ OPERATIVE REPORT DATE OF : 36 REPORT #: [id number] PHYSICIAN: YOVANA ROCHA MD PCP: HOWIE ROJO REPORT IS CONFIDENTIAL AND NOT TO BE RELEASED WITHOUT AUTHORIZATION [facility] [address] [place], [place] [address] Signed abnormal otherwise, however. The scope was carefully withdrawn from that point and examination undertaken showed no sign of abnormality until approximately 60 cm from the anal verge, where a small sessile polyp was noted, this was excised with cold morcellation technique. Further withdrawal of scope through the area of diverticular change and the anastomosis was without sign of other abnormality, the rectum appeared normal, retroflexed view was normal as well. Scope was removed. The patient was taken to recovery in good condition. CONCLUDING DIAGNOSIS: Symptoms of diarrhea alternating with constipation, most likely related to diverticular disease. Recommend Citrucel 1 tablespoon daily. As regard to the polyp, it is very small, possibly adenomatous, would repeat colonoscopy in 5 years sooner if clinically indicated. MD DENI Tovar/DAVID /[id number] cc: KAY Douglass Copies: HOWIE ROJO ~ Electronically Signed By: YOVANA ROCHA MD 01/27/18 1114 PATIENT NAME: JASONHOWIE DUNHAM OPERATIVE REPORT DATE OF : 36 REPORT #: [id number] PHYSICIAN: YOVANA ROCHA MD PCP: HOWIE ROJO REPORT IS CONFIDENTIAL AND NOT TO BE RELEASED WITHOUT AUTHORIZATION
== END 2018-01-26 09:37 | disposition home or self-care (01) ==
LOC: DS 07:31 → OPS 07:31 → DS 13:00 → OPS 13:00
PROVIDERS: Surgery
PROC: 0DBE8ZZ Excision of Large Intestine, Via Natural or Artificial Opening Endoscopic (ICD-10-PCS; 2018-01-26)
PROC: 0DBH8ZZ Excision of Cecum, Via Natural or Artificial Opening Endoscopic (ICD-10-PCS; principal; 2018-01-26 08:30)
DX: D12.6 Benign neoplasm of colon, unspecified (principal); K36 Other appendicitis; K57.30 Diverticulosis of large intestine without perforation or abscess without bleeding; I10 Essential (primary) hypertension; K59.00 Constipation, unspecified; E66.9 Obesity, unspecified; Z88.2 Allergy status to sulfonamides; Z88.5 Allergy status to narcotic agent; Z86.010 Personal history of colon polyps; Z90.49 Acquired absence of other specified parts of digestive tract; Z68.29 Body mass index [BMI] 29.0-29.9, adult
CPT/HCPCS: 99153; G0500; J0694; J2250; J3010; J7120

== ENCOUNTER 2019-05-06 22:16 | Inpatient (IN) | payer MEDICARE, OTHER ==
[~2019-05-06] VITALS: Ht 175.3 cm; Wt 85.5 kg
--- OUTSIDE RECORDS SUMMARY | ~2019-05-06 | XMS | Encounter Summary ---
Demographics + + + | Address | [address] | | | [place] [address] | + + + | Home Phone | | + + + | Preferred Language | Unknown | + + + | Marital Status | | + + + | Advent Affiliation | Unknown | + + + | Race | Unknown | + + + | Ethnic Group | Unknown | + + + Author + + + | Author | [facility] | | | and [place] | + + + | Organization | [facility] | | | and [place] [...] + | Matthew Ramirez | [place] | [address] | | | | | [place] | | | | | [phone] | | + + + + + Care Team Providers + +------+ + | Care Welding Specialist Name | Role | Phone | + +------+ + PCP | Unavailable | + +------+ + Encounter Details +--------+ + + + + | Date | Type | Department | Care Team | Description | +--------+ + + + + | 09/06/ | Hospital | [facility] | | | | 2004 | Encounter | MED CTR XRAY [address] | | | | | | [address] | | | | | | [place] [address] | | | | | | [phone] | | | +--------+ + + + [...]
--- OUTSIDE RECORDS SUMMARY | ~2019-05-06 | XMS | Encounter Summary ---
Demographics + + + | Address | [address] | | | [place] [address] | + + + | Home Phone | | + + + | Preferred Language | Unknown | + + + | Marital Status | | + + + | Presybeterian Affiliation | Unknown | + + + | Race | Unknown | + + + | Ethnic Group | Unknown | + + + Author + + + | Author | [facility] | | | and [place] | + + + | Organization | [facility] | | | and [place] [...] + | Matthew Ramirez | [place] | [address] | | | | | [place] | | | | | [phone] | | + + + + + Care Team Providers + +------+ + | Care Software Implementation Specialist Name | Role | Phone | + +------+ + PCP | Unavailable | + +------+ + Encounter Details +--------+ + + + + | Date | Type | Department | Care Team | Description | +--------+ + + + + | 06/15/ | Hospital | [facility] | | | | 2004 | Encounter | MED CTR XRAY [address] | | | | | | [address] | | | | | | [place] [address] | | | | | | [phone] | | | +--------+ + + + [...]
--- OUTSIDE RECORDS SUMMARY | ~2019-05-06 | XMS | Encounter Summary ---
Demographics + + + | Address | [address] | | | [place] [address] | + + + | Home Phone | | + + + | Preferred Language | Unknown | + + + | Marital Status | | + + + | Yazdanism Affiliation | NRP | + + + | Race | White | + + + | Ethnic Group | Not or | + + + Author + + + | Author | [facility] | + + + | Organization | [facility] | + + + | Address | Unknown | + + + | Phone | Unavailable | + + + Support + + + + + | Name | Relationship | Address | Phone | + + + + + | Matthew Ramirez | CHRIS | [address] | | | | | [place] | | | | | [address] | | + + + + + | Nella Haque | ECON | Unknown | | + + + + + Care Team Providers + +------+ + | Care Mortgage Advisor Name | Role | Phone | + +------+ + | Long Copeland MD | PCP | | + +------+ + Reason for Referral Diagnostic Testing (Routine) + +--------+ + + + + | Status | Reason | Specialty | Diagnoses / | Referred By | Referred To | | | | | Procedures | Contact | Contact | + +--------+ + + + + | New Request | | Radiology | Diagnoses | Cristel Galicia | | | | | | Tumor | MD [address] | | | | | | Gastric | [address] | | | | | | adenocarcino | [facility], | | | | | | ma (HCC) | [place] | | | | | | Procedures | [id number] | | | | | | PET CT SKULL | Phone: | | | | | | [facility] | [phone] | | | | | | [facility] | Fax: | | | | | | | [phone] | | + +--------+ + + + + Reason for Visit Consultation (Routine) + +--------+ + + + + | Status | Reason | Specialty | Diagnoses / | Referred By | Referred To | | | | | Procedures | Contact | Contact | + +--------+ + + + + | Authorized | | Surgical | | | Cristel Galicia | | | | Oncology | | Arpan, | MD [address] | | | | | | Luis [address], | [address] | | | | | | [address] | [facility], [place] | | | | | | [address] | [address] | | | | | | [place], | Phone: | | | | | | [place] [address] | [phone] | | | | | | Phone: | Fax: | | | | | | [phone] | [phone] | | | | | | Fax: | | | | | | | [phone] | | + +--------+ + + + + Encounter Details +--------+---------+ + + + | Date | Type | Department | Care Team | Description | +--------+---------+ + + + | 02/03/ | Office | Surgical Oncology | Cristel Galicia MD | Gastric | | 2019 | Visit | at [facility] [address] | [address] | adenocarcinoma (HCC) | | | | [address] Mail Code: | [place], [place] | (Primary Dx); Tumor | | | | [address] for [facility] | [address] | | | | | and Healing, | [phone] | | | | | [address] | | | | | | [place], [place] | | | | | | [address] | | | | | | [phone] | | | +--------+---------+ + + + [...] + + + | Blood Pressure | 148/85 | 02/03/2019 9:48 AM | | | | | PDT | | + + + + + | Pulse | 77 | 02/03/2019 9:48 AM | | | | | PDT | | + + + + + | Temperature | 36.4 C (97.6 F) | 02/03/2019 9:48 AM | | | | | PDT | | + + + + + | Respiratory Rate | 16 | 02/03/2019 9:48 AM | | | | | PDT | | + + + + + | Oxygen Saturation | 99% | 02/03/2019 9:48 AM | | | | | PDT | | + + + + + | Inhaled Oxygen | - | - | | | Concentration | | | | + + + + + | Weight | 88.1 kg (194 lb 3.2 | 02/03/2019 9:48 AM | | | | oz) | PDT | | + + + + + | Height | 175.3 cm (5' 9") | 02/03/2019 9:48 AM | | | | | PDT | | + + + + + | Body Mass Index | 28.68 | 02/03/2019 9:48 AM | | | | | PDT | | + + + + + documented in this encounter Patient Instructions Patient Instructions Nelli Vaca RN - 02/03/2019 9:00 AM PDTPlease obtain PET scan at local facility in [place]. Please contact Nelli Vaca, Nurse Coordinator for Dr. Cristel Galicia, with any questions at . We encourage all of our patients to sign up and use [employer] for communication . Please note: I am out of the office on Mondays and unable to monitor voicemail or email. If you need to get ahold of someone urgently, please call [phone]. documented in this encounter Progress Notes Cristel Galicia MD - 02/03/2019 9:00 AM PDTATTENDING PHYSICIAN STATEMENT AND SUMMARY This note has been dictated using [employer] voice recognition software. I saw Ashly Ramirez with Dr. Voss and agree with the findings as documented. I have repe ated the pertinent portions of the history and physical exam. We have discussed the active issues and developed the assessment and plan as described together. This is a 78 y.o. 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 There was no discrete mass seen. She was then sent for an endoscopic evaluation again without any discrete masses seen and multiple biopsi es from her cardia, incisura, body, all of which demonstrated evidence of cancer. A CT scan demonstrates a large gastrohepatic node suspicious for claudia metastasis. There is no evide nce of distant disease to her lungs. The distribution of her disease would require likely a total gastrectomy and I believe that this may represent lienitis plastica given the lack of a discrete lesion. I think she would benefit from a further evaluation with a PET CT scan which is indicated by NCCN guidelines given that she does not have a discrete mass and has q uestion of extra gastric disease and possible radiographically occult metastatic disease on traditional cross-sectional imaging. We discussed that a total gastrectomy with reconstruct ion in an 78-year-old patient is a challenging operation to get through both nutritionally a nd for quality of life. I would be hesitant to offer such a radical resection if she truly has lienitis plastica. I think she would be best served by complete staging with a PET CT s can and if she does appear to have only localized disease to her stomach and possibly any re gional disease I would recommend a staging laparoscopy with placement of a Mediport and plan s for starting systemic chemotherapy for several cycles. I would then have her evaluated an d if she has had a good response and is made a good nutritional recovery possibly have anoth er endoscopic evaluation and then discuss at our multidisciplinary GI tumor board if we feel that she would be a good operative candidate. In addition, there are multiple mutational d acosta for gastric cancer including HER-2 amplification, mismatch repair deficiency, and cau dlin positivity that can provide both predictive response to certain systemic regimens as we ll as clinical trial options. I will have the patient undergo the PET CT scan which will byrnes ve her set up in [facility], I will discuss her case when these results are avai lable in our multidisciplinary GI tumor board, and then contact the patient and a local [facility] oncologist with any treatment recommendations. RECOMMENDATIONS 1. PET CT scan to be ordered and performed in [facility]. 2. We will discuss her case in multidisciplinary GI tumor board and contact patient after t he above imaging is completed. 3. Order gene trails solid tumor panel for cancer profiling. I spent 10 minutes in review of the patient's imaging, historical documents, and review of evaluation up to our clinic visit today. I spent 62 min in person with the patient and family in the process of discussion and couns eling regarding treatment options. Greater than 50% of the time was spent counseling the pa tient regarding the pathology, the potential treatment options, and the next steps in the di agnosis and management of their disease. The patient and family have indicated that all questions and concerns have been addressed t o their satisfaction. Cristel Galicia MD, MPH scrap separator Division of Surgical Oncology [facility] [place], [place] Zac, Desmond Kaur MD - 9:00 AM PDT 02/03/2019 Surgical Oncology Clinic New Patient Consultation--Gastric Cancer Referring Physician: Dr. Luis Antony Reason for consultation: Newly diagnosed gastric adenocarcinoma (This note is structured to facilitate communication among oncology providers) PLAN TODAY: 1. Return to clinic after discussion at tumor board. 2. Return to [facility] for EGD with biopsies for disease surveillance 3. Will need a PET/CT scan 4. Will present case and discuss in upcoming Multi-Disciplinary Tumor board and contact pat ient with recommendations. 5. Solid tumor Gene Trails 6. Follow up [facility] path review of outside records ONCOLOGIC HISTORY Brief initial presentation: Presented on 12/17 with chronic abdominal pain; subsequently u nderwent EGD with random biopsy findings of infiltrating signet ring gastric adenocarcinoma ECOG Status at presentation: 0 Relevant mutational analysis: None yet Pre-operative Imaging: Chest CT on 02/02 demonstrates RUL 2mm nodule, likely post-inflammatory; otherwise notabl e for no metastases CT abdomen and pelvis on 02/02 demonstrates irregular gastrohepatic lymph node mildly nayeli picious for metastatic disease PET/CT - Not performed EUS - 01/13 demonstrates gastric adenocarcinoma within the lamina propria and muscularis p ropria/ submucosa Diagnostic laparoscopy - Not performed Pre-operative systemic and/or chemoradiotherapy None yet HPI: Ashly Ramirez is a 78-year-old woman with history of sigmoid colectomy for diverticular di sease (2002) and TEODORA for cervical cancer (1973), who underwent a EGD for persistent LUQ pain with random stomach biopsies notable for signet ring gastric adenocarcinoma that was found to be invading the lamina propria and muscularis propria/submucosa on subsequent EUS biopsy. She originally presented with "colon problems", and has a long history of abdominal pain. S he attributed this to her chronic pain, her IBS, and to stress because her 's dementi a is worsening. She complained of very specific LUQ pain so her PCP ordered a colonoscopy an d EGD. She underwent an EGD with random biopsies that found incidentally found gastric adeno carcinoma. She subsequently went to [place] and underwent and EUS with Dr. Stevenson on 01/13. As for her current symptoms, she endorses stomach pain all the time that she describes as " not debilitating, but just there." She has attributed this to IBS and fibromyalgia which she has been suffering from for decades.Several months ago she was more debilitated by the abdo marley pain that limited her activity that has since improved. She denies any acute worsenin g in symptoms. She also endorses several episodes of vomiting without inciting cause. Denies hematemesis. She endorses alternating constipation and diarrhea with her IBS. She denies me don, and hematochezia. She is here today from [place] with her daughter who is medical POA and decision maker. Abdominal surgical history notable for remote open appendectomy, sigmoid colectomy, laparos copic cholecystectomy, pubovaginal sling, bladder repair, bladder suspension, and urethropex y. Family history notable for daughter with breast Ca at age 61 and a sister with bilateral breast cancer. She has a 1 pack year smoking history. She drinks 1-2 drinks/week and has a h istory of alcohol use disorder. ROS: All other ROS negative other than HPI and as documented in the clinic notes. General: No constitutional symptoms of fevers, fatigue, chills, weight loss or sweats. Eyes: No changes in vision, double vision, eye pain, eye irritation, discharge, blurred vi roge or light sensitivity. Ears, Nose and Throat: No hearing loss, ringing in the ears, ear discharge, earache, noseb nory, nasal congestion, difficulty swallowing, hoarseness or sore throat. Respiratory: No shortness of breath, coughing up blood, excessive sputum, cough, chest dis comfort or wheezing. Musculoskeletal: No joint pain, swelling, stiffness, back pain, arthritis, muscle aches, m uscle cramps or loss of strength. Cardiovascular: No chest pain, skipping beats, lightheadedness, difficulty breathing uprig ht or lying down, fatigue, near fainting or fainting, palpitations, weight gain, edema, leg cramps. Gastrointestinal: No loss of appetite, excessive appetite, indigestion, vomiting, nausea, constipation, gas, abdominal pain, hemorrhoids, diarrhea, bloating, bloody stools or dark ta rry stools. Genitourinary: No urinary frequency, blood in urine, difficulty in urination, discharge, p ainful urination, incontinence, urinary urgency or genital sores. Neurologic: No unusual headaches, inability to speak, poor balance, numbness, tingling, tr emors, memory loss, disturbances in coordination or sensation of room spinning. Skin: No itching, rash, poor wound healing, night sweats, changes in skin color, dryness, flushing or suspicious lesions. Psychological: No abnormal anxiety, depression, thoughts of suicide or hallucinations. Heme/Lymphatic: No skin discoloration, abnormal bleeding or enlarged lymph nodes. Endocrine: No heat intolerance, cold intolerance, excessive hunger or excessive thirst. Allergic: No seasonal allergies, hives or rash, persistent infections or HIV exposure. PMH: Past Medical History: Diagnosis Date Arthritis Cataracts, bilateral Cervical cancer (HCC) 1996 surgically treated Chronic constipation Chronic pain Depression cymbalta Diverticula of colon Dizziness and giddiness Essential hypertension Fibromyalgia gabapentin GERD (gastroesophageal reflux disease) Hypothyroidism on replacement Lichen sclerosus PSH: Past Surgical History Procedure Laterality Date Total abdominal hysterectomy 1974 age 33, cervical cancer, no chemo/radiation Tubal ligation 1975 Appendectomy 1950 Tonsillectomy and adenoidectomy 1947 Cholecystectomy, laparoscopic 1996 Knee arthroscopy 2001 Colectomy partial / total 2003 diverticulosis, removed 12 inch Bladder surgery 1970 removed urethral scar tissue and part of muscle of bladder for frequent UTIs Bladder suspension 2005 Lynx retropubic sling Colporrhaphy 2006 posterior repair, cadaveric graft Carpal tunnel release 2007 removed part of tendon and reconstructed joint for arthritis Finger trigger release 2009 left thumb Bladder suspension 07/2010 revision of midurethral sling, placement of TOT Cystoscopy 02/2010 coaptite injection Hb tape tvt gynecare 10/26/2010 Hernia repair Cataract removal MED: Current Outpatient Medications: acetaminophen (TYLENOL) 500 mg Oral Tablet, Take 1 Tab by mouth every four hours as needed., Disp: , Rfl: ascorbic acid SR (VITAMIN C) 1,000 mg Oral Tablet, Take 1,000 mg by mouth two times daily., Disp: , Rfl: Aspirin 81 mg Oral Tablet, Take 81 mg by mouth once daily., Disp: , Rfl: BLACK COHOSH ORAL, Take by mouth., Disp: , Rfl: CALCIUM CARBONATE/VITAMIN D3 (CALCIUM 600 + D OR), Take by mouth., Disp: , Rfl: cholecalciferol, Vitamin D3, 1,000 unit Oral Tablet, Take 1,000 Units by mouth every seven days., Disp: , Rfl: ciprofloxacin (CIPRO) 500 mg Oral Tablet, Take 1 Tab by mouth every twelve hours., Disp: 14 Tab, Rfl: 0 clobetasol 0.05 % Topical Cream, Apply to affected area two times daily. Apply for up to 2 weeks. , Disp: , Rfl: cyanocobalamin (VITAMIN B-12) 1,000 mcg Oral Tablet, Take 1,000 mcg by mouth once daily., D isp: , Rfl: doxepin 75 mg Oral Capsule, Take 10 mg by mouth once daily at bedtime., Disp: , Rfl: DULoxetine (CYMBALTA) 60 mg Oral Capsule, Delayed Release(E.C.), Take 60 mg by mouth once d aily., Disp: , Rfl: estradiol (ESTRACE) 0.01 % (0.1 mg/g) Vaginal Cream, Place 1 g into the vagina twice weekly (on Friday and )., Disp: 42.5 g, Rfl: 2 folic acid 800 mcg Oral Tablet, Take 800 mcg by mouth once daily., Disp: , Rfl: gabapentin 300 mg Oral Capsule, Take 300 mg by mouth three times daily., Disp: , Rfl: Mtgouxyvqje-Lnpcgjtmu-Beo C-Mn (GLUCOSAMINE CHONDROITIN MAXSTR) 500-400 mg Oral Capsule, Ta ke by mouth., Disp: , Rfl: levothyroxine (LEVOTHROID) 112 mcg Oral Tablet, Take 112 mcg by mouth once daily., Disp: , Rfl: lisinopril 20 mg Oral Tablet, Take 20 mg by mouth once daily., Disp: , Rfl: nabumetone (RELAFEN) 750 mg Oral Tablet, Take 750 mg by mouth two times daily., Disp: , Rfl : oxyCODONE-acetaminophen 5-325 mg Oral Tablet, Take 1 Tab by mouth every four hours as neede d. Not to exceed 12 tablets per any 24 hour period. , Disp: , Rfl: simvastatin 40 mg Oral Tablet, Take 40 mg by mouth once daily in the evening., Disp: , Rfl: triamcinolone 55 mcg Nasal Aerosol, Bodfish, Instill 2 Sprays into each nostril once daily., Disp: , Rfl: triamcinolone acetonide 0.1 % Topical Cream, Apply to affected area three times daily. Diane ly thin film to affected areas. , Disp: , Rfl: ALL: is allergic to codeine and sulfa (sulfonamide antibiotics). SH: reports that she has never smoked. She has never used smokeless tobacco. She reports t hat she drinks alcohol. She reports that she does not use drugs. FH: Family history includes Cancer in her brother (throat, neck), father, mother (multiple myeloma), and sister and Heart Disease in her mother (CHF). Physical Exam BP 148/85 (BP Location: Right upper arm, Patient Position: Sitting) | Pulse 77 | Temp 36. 4 C (97.6 F) (Oral) | Resp 16 | Ht 1.753 m (5' 9") | Wt 88.1 kg (194 lb 3.2 oz) | Sp O2 99% | BMI 28.68 kg/m | BSA 2.07 m Gen: Alert, well-appearing, NAD Neuro: A&O, normal gait Psych: normal affect, speech HEENT: Anicteric, trachea midline Claudia: No cervical, supraclavicular, axillary, periumbilical or inguinal lymphadenopathy to palpation. Cor: Regular in rate and rhythm Pulm: Breathing comfortably on room air Abd: No visible masses or scars from prior incisions. Soft, nontender, nondistended. No HSM . No periumbilical nodularity. Well healed midline incision without keloid. Extr: Warm and well-perfused without clubbing, cyanosis or edema. Labs: No new labs DATA SUMMARY Cross-sectional Imagin12/31/2018: CT Chest, abdomen and pelvis Endoscopic imagin01/13/2019: EUS Impression: 1. Gastritis involving the gastric body and antrum, now status post mapping biopsies throughout the stomach 2. On EUS, no abnormal wall thickening or hypoechoic mass lesions or perigastric lymphadenopathy identified 3. On endoscopy, the restricted insufflation raised concern for linitis though, but wall layers appeared normal on EUS 4. Small submucosal lesion in the prepyloric gastric antrum which is consistent with a lipoma Pathology: 12/17/2018: Biopsies from EGD 01/13/2019: Biopsies from EUS: 01/13/2019 12:45 PDT01/13/2019 13:25 PDT ANNABELLE FULLER FINAL DIAGNOSIS: A. Gastric antrum at greater curvature, biopsy: Adenocarcinoma. Scant tumor cells are found in muscularis mucosa/submucosa. No intramucosal tumor is seen. Mild inactive chronic gastritis. Helicobacter specific immunohistochemical stain is negative with appropriate s taining of controls. B. Gastric antrum at lesser curvature, biopsy: Mild inactive chronic gastritis. No intestinal metaplasia, dysplasia or malignancy is found. C. Angularis, biopsy: Adenocarcinoma. Sparse tumor cells are found within the the lamina propria in a 1mm focus. Mild inactive chronic gastritis. D. Gastric body at greater curvature, biopsy: Adenocarcinoma. Tumor cells are found within the lamina propria in one biopsy, and within musc ularis propria/ submucosa in all of four biopsy fragments. Mild inactive chronic gastritis. E. Gastric body at lesser curvature, biopsy: Adenocarcinoma. Tumor cells are found within the lamina propria in two biopsy fragments. Mild inactive chronic gastritis. F. Gastric fundus, biopsy: Adenocarcinoma. Tumor cells are found within the lamina propria and muscularis propria/ submuc timmy in four of five biopsy fragments. Mild inactive chronic gastritis Impression: Ashly Ramirez is a 78-year-old active woman limited by her severe osteoarthritis who prese nts with uTx infiltrating signet ring gastric adenocarcinoma and concern for linitis plastic a. Clinically, she requires a complete staging and pre-chemotherapy workup with a PET/CT and Gene Trails evaluation of her tumor biology, and subsequent discussion at tumor board re: c andidacy for chemotherapy and/or surgical resection. 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 Currently, she is functionally good allowing her to regularly anrie en which she greatly enjoys. Today we discussed her diagnosis and that the surgical option f or her pathology, a complete gastrectomy, would be extremely taxing on her and her family. A lengthy discussion was had about goals of care given this information. The idea of chemothe rapy was also raised, and deferred until after her evaluation at GI cancer conference. Laparoscopic staging with peritoneal washings for cytology is indicated for clinical stage higher than T1b (supported by NCCN guidelines). With her clinical uTxNx stage (unable to sta ge during EUS), occult M1 disease is present in up to 30% of these patients. In patients uri ng considered for surgical resection without preoperative therapy, laparoscopy may be useful for the detection of radiographically occult metastatic disease in patients with T3 and/or N+ tumors identified on preoperative imaging. In patients receiving preoperative therapy, la paroscopy along with cytology of peritoneal washings is recommended as part of a separate st aging procedure. Will complete PET/CT. Will complete Gene Trails. Ashly Ramirez case will be discussed at the [facility] Multidisciplinary Gastrointestinal Cancer Conference which includes representatives from Surgical Oncology, Radiation Medicine, Medic al Oncology, Genetics, Pathology, and Body Imaging. I informed the patient that in this for um, the patient's history would be reviewed, radiology studies examined, and any available p athology analyzed. In the subsequent discussion, a treatment plan could be formulated and de tailed with the patient who would then be an active participant in their individualized evelia tment. Desmond Voss MD R1 [facility] General Surgery documented in this enc ounter Plan of Treatment + +---------+--------+ + + | Name | Type | Priori | Associated Diagnoses | Order Schedule | | | | ty | | | + +---------+--------+ + + | PET CT SKULL BASE TO | Imaging | Routin | Tumor Gastric | Expected: | | [facility] | | e | adenocarcinoma (HCC) | 02/03/2019, Expires: | | | | | | 03/05/2020 | + +---------+--------+ + + documented as of this encounter Procedures + +--------+ + + + | Procedure Name | Priori | Date/Time | Associated Diagnosis | Comments | | | ty | | | | + +--------+ + + + | OUTSIDE RADIOLOGY - | | 02/18/2019 | | Results for this | | [facility] | | 12:00 AM | | procedure are in the | | | | PDT | | results section. | + +--------+ + + + | [facility] | Routin | 01/13/2019 | Gastric | Results for this | | COMPREHENSIVE SOLID | e | 12:45 PM | adenocarcinoma (HCC) | procedure are in the | | TUMOR PANEL | | PDT | | results section. | + +--------+ + + + documented in this encounter Results OUTSIDE RADIOLOGY - [facility] (02/18/2019 12:00 AM PDT) + + + | Narrative | Performed At | + + + | | | + + + [facility] (01/13/2019 12:45 PM PDT) + + + + + + | Component | Value | Ref Range | Performed | Pathologist | | | | | At | Signature | + + + + + + | [facility] | Specimen insufficient | | [facility] | | | COMPREHENSI | for testing. | | DIAGNOSTIC | | | VE SOLID | | | | | | TUMOR PANEL | | | LABORATORIE | | | | | | S | | + + + + + + | SAMPLE | Outside sample no. | | [facility] | | | TESTED | [id number] labeled as | | DIAGNOSTIC | | | | gastric body at lesser | | | | | | curvature | | LABORATORIE | | | | | | S | | + + + + + + | INTERPRETAT | Reported diagnosis: | | [facility] | | | ION | AdenocarcinomaInsufficie | | DIAGNOSTIC | | | | nt tumor for testing. | | | | | | Comment: We appreciate | | LABORATORIE | | | | the opportunity to | | S | | | | review this case. | | | | | | Unfortunately, the | | | | | | submitted material | | | | | | contains too little | | | | | | tumor to support the | | | | | | requested testing. If | | | | | | there is another | | | | | | specimen available that | | | | | | is territory service representative of | | | | | | this tumor, we would | | | | | | welcome the opportunity | | | | | | to examine it. | | | | + + + + + + | DISCLAIMER | This test was developed | | [facility] | | | | and its performance | | DIAGNOSTIC | | | | characteristics | | | | | | determined by the [facility] | | LABORATORIE | | | | [facility] | | S | | | | Laboratories. It has | | | | | | not been cleared or | | | | | | approved by the Food and | | | | | | Drug Administration. | | | | | | FDA approval is not | | | | | | required for the | | | | | | clinical use of the | | | | | | test, and therefore | | | | | | validation was done as | | | | | | required under the | | | | | | requirements of the | | | | | | Clinical Laboratory | | | | | | Improvement Act of 1988 | | | | | | (CLIA). The [facility] | | | | | | Diagnostics | | | | | | Laboratories are fully | | | | | | licensed by the state of | | | | | | [place] under CLIA and | | | | | | are accredited by the | | | | | | [employer] | | | | | | Pathologists (CAP). | | | | | | Medical Or Surgical Instrument Maker: | | | | | | Rancho Curiel | | | | | | Liv, Ph.D.Reviewed | | | | | | and electronically | | | | | | signed by Rancho Dominguez | | | | | | Veena | | | | | | ,PhD02/25/2019 1:12 PM | | | | + + + + + + + + | Specimen | + + | Slide-Block - | | Slide-Block | + + + + + + + | Performing | Address | City/State/Zipcode | Phone Number | | Organization | | | | + + + + + | [facility] | [phone] | [place] [address] | | | DIAGNOSTIC | [address] | | | | LABORATORIES | | | | + + + + + documented in this encounter Visit Diagnoses + + | Diagnosis | + + | Gastric adenocarcinoma (HCC) - Primary Malignant neoplasm of stomach, unspecified | | site | + + | Tumor | + + documented in this encounter
--- OUTSIDE RECORDS SUMMARY | ~2019-05-06 | XMS | Encounter Summary ---
Demographics + + + | Address | [address] | | | [place] [address] | + + + | Home Phone | | + + + | Preferred Language | Unknown | + + + | Marital Status | | + + + | Zoroastrian Affiliation | NRP | + + + | Race | White | + + + | Ethnic Group | Not or | + + + Author + + + | Author | [facility] | + + + | Organization | [facility] | + + + | Address | Unknown | + + + | Phone | Unavailable | + + + Support + + + + + | Name | Relationship | Address | Phone | + + + + + | Matthew Ramirez | CHRIS | [address] | | | | | [place] | | | | | [address] | | + + + + + | Nella Lowery ECON | Unknown | | + + + + + Care Team Providers + +------+ + | Care Spindle Sander Name | Role | Phone | + +------+ + | Long Copeland MD | PCP | | + +------+ + Encounter Details +--------+ + + + + | Date | Type | Department | Care Team | Description | +--------+ + + + + | 09/04/ | Document-Sc | [facility] [address] | Cristel Galicia MD | | | 2019 | marv | [address] [facility] | [address] | | | | | [address] [place], [place] | [place], [place] | | | | | [address] | [address] | | | | | | [phone] | | | | | | | [...]
--- OUTSIDE RECORDS SUMMARY | ~2019-05-06 | XMS | Encounter Summary ---
Demographics + + + | Address | [address] | | | [place] [address] | + + + | Home Phone | | + + + | Preferred Language | Unknown | + + + | Marital Status | | + + + | Baptism Affiliation | Unknown | + + + | Race | Unknown | + + + | Ethnic Group | Unknown | + + + Author + + + | Author | [facility] | | | and [place] | + + + | Organization | [facility] | | | and [...] + | Matthew Ramirez | ECON | [address] | | | | | [place] | | | | | [address] | | + + + + + Care Team Providers + +------+ + | Care Black Ash Burner Operator Name | Role | Phone | [...] | 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 | [address] | | | | | adenocarcino | [address] | [place] | | | | | ma (HCC) | [address] | [place] [address] | | | | | Procedures | [place], [place] | Phone: | | | | | CT Chest | [address] | [phone] | | | | | Abdomen | Phone: | Fax: | | | | | Pelvis w | [phone] | [phone] | | | | | Contrast | Fax: | | | | | | CHG CT | [phone] | | | | | | SCAN,ABDOMEN | | | | | | | AND | | | | | | | PELVIS,W | | | | | | | CONTRAST [place] | | | | | | | CAT SCAN OF | | | | | | | CHEST | | | | | | | CONTRAST | | | +--------+--------+ + + + + Reason for Visit Diagnostic/Screening (Routine) +--------+--------+ + + + + | Status | Reason | Specialty | Diagnoses / | Referred By | Referred To | | | | | Procedures | Contact | Contact | +--------+--------+ + + + + | Closed | | Radiology | Diagnoses | Gayla, | [address] | | | | | 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 | [address] | | | | | adenocarcino | [address] | [place] | | | | | ma (HCC) | [address] | [place] [address] | | | | | Procedures | [place], [place] | Phone: | | | | | CT Chest | [address] | [phone] | | | | | Abdomen | Phone: | Fax: | | | | | Pelvis w | [phone] | [phone] | | | | | Contrast | Fax: | | | | | | CHG CT | [phone] | | | | | | SCAN,ABDOMEN | | | | | | | AND | | | | | | | PELVIS,W | | | | | | | CONTRAST [place] | | | | | | | CAT SCAN OF | | | | | | | CHEST | | | | | | | CONTRAST | | | +--------+--------+ + + + + Encounter Details +--------+ + + + + | Date | Type | Department | Care Team | Description | +--------+ + + + + | 12/31/ | Hospital | [facility] | Matthew Shukla MD | Gastric | | 2019 | Encounter | MED CTR [address] | [address] | adenocarcinoma (HCC) | | | | [address] [place], | [place], [place] | | | | | [place] [address] | [address] | | | | | [phone] | [phone] | | | | | | | [...] + + documented as of this encounter Medications at Time of Discharge [...] + +--------+ + + + | CT CHEST ABDOMEN | Routin | 12/31/2018 | Gastric | Results for this | | PELVIS W CONTRAST | e | 11:25 AM | adenocarcinoma (HCC) | procedure are in the | | | | PDT | | results section. | + +--------+ + + + documented in this encounter Results CT Chest Abdomen Pelvis [...] of stomach, unspecified site | + + documented in this encounter Administered Medications + +--------+ +---------+------+------+ | Medication Order | MAR | Action | Dose | Rate | Site | | | Action | Date | | | | + +--------+ +---------+------+------+ | iohexol (OMNIPAQUE 350) 350 | Given | 01/01/20 | 100 mLs | | | | mg/mL injection 100 mL 100 mL, | | 19 11:25 | | | | | Intravenous, ONCE PRN, Other, for | | AM PDT | | | | | CT contrast study, Starting Leona | | | | | | | 12/31/18 at 1125, For 1 dose, | | | | | | | Radiology | | | | | | + +--------+ +---------+------+------+ +---+---+ | | | +---+---+ documented in this encounter"
--- OUTSIDE RECORDS SUMMARY | ~2019-05-06 | XMS | Encounter Summary ---
Demographics + + + | Address | [address] | | | [place] [address] | + + + | Home Phone | | + + + | Preferred Language | Unknown | + + + | Marital Status | | + + + | Denominational Affiliation | NRP | + + + | Race | White | + + + | Ethnic Group | Not or | + + + Author + + + | Author | [facility] | + + + | Organization | [facility] | + + + | Address | Unknown | + + + | Phone | Unavailable | + + + Support + + + + + | Name | Relationship | Address | Phone | + + + + + | Matthew Ramirez | CHRIS | [address] | | | | | [place] | | | | | [address] | | + + + + + | Nella Haque | ECON | Unknown | | + + + + + Care Team Providers + +------+ + | Care Tissue Specialist Name | Role | Phone | [...] | | | | Tumor | MD [address] | | | | | | Gastric | [address] | | | | | | adenocarcino | [facility], | | | | | | ma (HCC) | [place] | | | | | | Procedures | [address] | | | | | | PET CT SKULL | Phone: | | | | | | BASE TO | [phone] | | | | | | [place] | Fax: | | | | | | | [phone] | | + +--------+ + + + [...] | | | | [address] | [facility], [place] | | | | | | [address] | [address] | | | | | | [place], | Phone: | | | | | | [place] [address] | [phone] | | | | | | Phone: | Fax: | | | | | | [phone] | [phone] | | | | | | Fax: | | | | | | | [phone] | | + +--------+ + + + + Encounter Details +--------+---------+ + + + | Date | Type | Department | Care Team | Description | +--------+---------+ + + + | 02/03/ | Office | Surgical Oncology | Cristel Galicia MD | Gastric | | 2019 | Visit | at [facility] [address] | [address] | adenocarcinoma (HCC) | | | | [address] Mail Code: | [place], [place] | (Primary Dx); Tumor | | | | [place] [facility] | [address] | | | | | and Healing, | [phone] | | | | | [address] | | | | | | [place], [place] | | | | | | [address] | | | | | | [phone] | | | +--------+---------+ + + + [...] obtain PET scan at local facility in [place]. Please contact Nelli Vaca, Nurse Coordinator for Dr. Cristel Galicia, with any questions at [phone]. We encourage all of our patients to sign up and use [facility] for communication . Please note: I am out of the office on Mondays and unable to monitor voicemail or email. If you need to get ahold of someone urgently, please call [phone]. documented in this encounter Progress Notes Cristel Galicia MD - 02/03/2019 9:00 AM PDTATTENDING PHYSICIAN STATEMENT AND SUMMARY This note has been dictated using [employer] voice recognition software. I saw Ashly Ramirez [...] undergo the PET CT scan which will brynes ve her set up in [facility], I will discuss her case when these results are avai lable in our multidisciplinary GI tumor board, and then contact the patient and a local [facility] oncologist with any treatment recommendations. RECOMMENDATIONS 1. PET CT scan to be ordered and performed in [facility]. 2. We will discuss her case in [...] o their satisfaction. Cristel Galicia MD, MPH fire tower keeper Division of Surgical Oncology [facility] [place], [place] Zac, Desmond Kaur MD - 9:00 AM PDT 02/03/2019 Surgical Oncology Clinic New Patient Consultation--Gastric Cancer Referring Physician: Dr. Luis Antony Reason for consultation: Newly diagnosed gastric adenocarcinoma (This note is structured to facilitate communication among oncology providers) PLAN TODAY: 1. Return to clinic after discussion at tumor board. 2. Return to [facility] for EGD with biopsies for disease surveillance 3. Will need a PET/CT scan 4. Will present case and discuss in upcoming Multi-Disciplinary Tumor board and contact pat ient with recommendations. 5. Solid tumor Gene Trails 6. Follow up [facility] path review of outside records ONCOLOGIC HISTORY [...] gastric adeno carcinoma. She subsequently went to [place] and underwent and EUS with Dr. Stevenson [...] and hematochezia. 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 Currently, she is functionally good allowing her to regularly arnie en which she greatly enjoys. Today we [...] Ramirez case will be discussed at the [facility] Multidisciplinary Gastrointestinal Cancer Conference which includes representatives [...] individualized evelia tment. Desmond Voss MD R1 [facility] General Surgery documented in this enc ounter [...] + | | | + + + [facility] (01/13/2019 12:45 PM [...] | [facility] | | | TESTED | [id number] E1 labeled as | | DIAGNOSTIC | [...] | | | | | | is delivery representative of | | | | | | this tumor, we would | | | | | | welcome the opportunity | | | | | | to examine it. | | | | + + + + + + | DISCLAIMER | This test was developed | | [facility] | | | | and its performance | | DIAGNOSTIC | | | | characteristics | | | | | | determined by the [facility] | | LABORATORIE | | | | [facility] | | S | | | [...] | | | | | (CLIA). The [facility] | | | | | | Diagnostics | | | | | | Laboratories are fully | | | | | | licensed by the state of | | | | | | [place] under CLIA and | | | | | | are accredited by the | | | | | | [employer] [place] | | | | | | Pathologists (CAP). | | | | | | Gem Setter: | | | | | | Rancho [...] + + + + | [facility] | [address] | [place] [address] | | | DIAGNOSTIC | [address] [...]
--- OUTSIDE RECORDS SUMMARY | ~2019-05-06 | XMS | Encounter Summary ---
Demographics + + + | Address | [address] | | | [place] [address] | + + + | Home Phone | | + + + | Preferred Language | Unknown | + + + | Marital Status | | + + + | Buddhist Affiliation | NRP | + + + [...] + | Matthew Ramirez | ECON | [address] | | | | | [place] | | | | | [address] | | + + + + + | Nella Haque | ECON | Unknown | | + + + + + Care Team Providers + +------+ + | Care Sccm Administrator Name | Role | Phone | + [...]
--- OUTSIDE RECORDS SUMMARY | ~2019-05-06 | XMS | Encounter Summary ---
Demographics + + + | Address | [address] | | | [place] [address] | + + + | Home Phone | | + + + | Preferred Language | Unknown | + + + | Marital Status | | + + + | Caodaism Affiliation | Unknown | + + + | Race | Unknown | + + + | Ethnic Group | Unknown | + + + Author + + + | Author | [facility] | | | and [place] | + + + | Organization | [facility] | | | and [place] | + + + | Address | Unknown | + + + | Phone | Unavailable | + + + Support + + + + + | Name | Relationship | Address | Phone | + + + + + | Nella Haque | ECON | Unknown | | + + + + + | Matthew Rmairez | CHRIS | [address] | | | | | [place] | | | | | [address] | | + + + + + Care Team Providers + +------+ + | Care Coke Drawer Hand Name | Role | Phone | + +------+ + PCP | Unavailable | + +------+ + Encounter Details +--------+ + + + + | Date | Type | Department | Care Team | Description | +--------+ + + + + | 09/06/ | Hospital | [facility] | | | | 2004 | Encounter | MED CTR XRAY [address] | | | | | | [address] | | | | | | [place] [address] | | | | | | [phone] | | | +--------+ + + + [...]
--- OUTSIDE RECORDS SUMMARY | ~2019-05-06 | XMS | Encounter Summary ---
Demographics + + + | Address | [address] | | | [place] [address] | + + + | Home Phone | | + + + | Preferred Language | Unknown | + + + | Marital Status | | + + + | Oriental Orthodox Affiliation | Unknown | + + + | Race | Unknown | + + + | Ethnic Group | Unknown | + + + Author + + + | Author | [facility] | | | and [place] | + + + | Organization | [facility] | | | and [place] [...] + | Matthew Ramirez | CHRIS | [address] | | | | | [place] | | | | | [address] | | + + + + + Care Team Providers + +------+ + | Care Senior Mechanical Engineer Name | Role | Phone | + +------+ + PCP | Unavailable | + +------+ + Encounter Details +--------+ + + + + | Date | Type | Department | Care Team | Description | +--------+ + + + + | 11/27/ | Hospital | [facility] | | | | 1999 | Encounter | MED CTR GENERIC OP | | | | | | CONV DEPT [address] | | | | | | [place], | | | | | | [place] [address] | | | | | | [phone] | | | +--------+ + + + [...]
--- OUTSIDE RECORDS SUMMARY | ~2019-05-06 | XMS | Encounter Summary ---
Demographics + + + | Address | [address] | | | [place] [address] | + + + | Home Phone | | + + + | Preferred Language | Unknown | + + + | Marital Status | | + + + | Congregation Affiliation | Unknown | + + + | Race | Unknown | + + + | Ethnic Group | Unknown | + + + Author + + + | Author | [facility] | | | and [place] | + + + | Organization | [facility] | | | and [place] [...] + | Matthew Ramirez | ECON | [address] | | | | | [place] | | | | | [address] | | + + + + + Care Team Providers + +------+ + | Care Loader Semiconductor Dies Name | Role | Phone | + +------+ + | Ashly Rojo PA-C | PCP | | + +------+ + Encounter Details +--------+ + + + + | Date | Type | Department | Care Team | Description | +--------+ + + + + | 01/01/ | Abstract | [facility] | No, Physician | Acute reaction to | | 2019 | | SURGERY [address] | | stress; H/O neoplasm | | | | [place], [place] | | of uncertain | | | | [address] | | behavior of skin; | | | | [phone] | | Primary localized | | | [...] of this encounter Progress Notes Adia Rosario, BUSINESS INFO CONSULTANT - 01/01/2019 11:27 AM PDTCT Chest Abdomen Pelvis w Contrast on 08/06/19 19 at [facility] FINDINGS: BONES: No osteoblastic or osteolytic lesion. [...]
--- OUTSIDE RECORDS SUMMARY | ~2019-05-06 | XMS | Encounter Summary ---
Demographics + + + | Address | [address] | | | [place] [address] | + + + | Home Phone [...] Author | [facility] | | | and Nenoana | + + + | Organization | [facility] [...] + | Matthew Ramirez | ECON | [address] | | | | | [place] | | | | | [address] | | + + + + + Care Team Providers + +------+ + | Care Front Office Administrator Name | Role | Phone | + +------+ + | Ashly Rojo PA-C | PCP | | + +------+ + Reason for Referral Diagnostic/Screening (Urgent) + +--------+ + + + + | Status | Reason | Specialty | Diagnoses / | Referred By | Referred To | | | | | Procedures | Contact | Contact | + +--------+ + + + + | Pending | | Radiology | Diagnoses | Cristel Galicia | [facility] | | Review | | | Tumor | MD [address] | [facility] | | | | | Gastric | [address] | [place] | | | | | adenocarcino | ATTICA, | MEDICAL | | | | | ma (HCC) | [place] | [place] [address] | | | | | Procedures | [id number] | [place] | | | | | PET CT Skull | Phone: | Melany [place], | | | | | [address] [place] | [phone] | [place] [address] | | | | | Thigh | Fax: | Phone: | | | | | | [phone] | [phone] | | | | | | | Fax: | | | | | | | [phone] | + +--------+ + + + + Reason for Visit Diagnostic/Screening (Urgent) + +--------+ + + + + | Status | Reason | Specialty | Diagnoses / | Referred By | Referred To | | | | | Procedures | Contact | Contact | + +--------+ + + + + | Pending | | Radiology | Diagnoses | Jose Angel Galiciaye | [facility] | | Review | | | Tumor | MD [address] | [facility] | | | | | Gastric | [address] | [facility] | | | | | adenocarcino | ATTICA, | [facility] | | | | | ma (HCC) | [place] | [place] [address] | | | | | Procedures | [id number] | [place] | | | | | PET CT Skull | Phone: | Melany Mosley, | | | | | [place] | [phone] | [place] [address] | | | | | Thigh | Fax: | Phone: | | | | | | [phone] | [phone] | | | | | | | Fax: | | | | | | | [phone] | + +--------+ + + + + Encounter Details +--------+ + + + + | Date | Type | Department | Care Team | Description | +--------+ + + + + | 10/ | Hospital | [facility] | Cristel Galicia MD | Tumor; Gastric | | 2019 | Encounter | [facility] PET SCAN | [address] | adenocarcinoma (HCC) | | | | [address] [place] | [place], [place] | | | | | [place] [address] | [address] | | | | | [phone] | [phone] | | | | | | | [...] +---------+ + + | albuterol (PROAIR | Inhale 2 puffs into | | 0 | | | | HFA) 90 mcg/puff | the lungs EVERY 4 TO | | | | | | inhaler | 6 HOURS NEEDED | | | | | | | for Wheezing. | | | | | + + [...] + +---------+ + + | Calcium | Take 2 tablets by | | 0 | | | | Carb-Cholecalciferol | mouth Daily. | | | | | | 600-200 MG-UNIT | | | | | | | TABS | | | | | | + + + +---------+ + + | Cetirizine HCl (EQ | Take 2 tablets by | | 0 | | | | ALLERGY RELIEF, | mouth 2 times daily. | | | | | | CETIRIZINE, PO) | | | | | | + [...] +---------+ + + | doxepin (SINEQUAN) | Take 75 mg by mouth | | 0 | | | | 75 MG capsule | nightly. | | | | | + + + +---------+ + + | DULoxetine | Take 30 mg by mouth | | 0 | | | | (CYMBALTA) [address] | Daily. | | | | | | capsule | | | [...] + +---------+ + + | fluticasone | 4 sprays by Nasal | | 0 | | | | (FLONASE) 50 | route every evening. | | | | | | mcg/nasal spray | 2 sprays each | | | | | | | nostril once a day | | | | | | | every evening | | | | | + + + +---------+ + + | | Inhale 1 puff into | | 0 | | | | fluticasone-salmeter | the lungs every | | | | | | ol (RHONDA ROSE | morning. Advair | | | | | | INHUB) 250-50 | Diskus 250 mcg-50 | | | | | | mcg/puff diskus | mcg/dose powder for | | | | | | inhaler | inhalation 1 puff in | | | | | | | am 1 puff in PM if | | | | | | | needed | | | | | + + + +---------+ + + | | Inhale 1 puff into | | 0 | | | | fluticasone-salmeter | the lungs Daily as | | | | | | ol (ADVAIR, WIXELA | needed (in evening | | | | | | INHUB) 250-50 | if needed in | | | | | | mcg/puff diskus | addition to the | | | | | | inhaler | daily dose). Advair | | | | | | | Diskus 250 mcg-50 | | | | | | | mcg/dose powder for | | | | | | | inhalation 1 puff in | | | | | | | am 1 puff in PM if [...] + + +---------+ + + | | Take 1 tablet by | | 0 | | | | oxyCODONE-acetaminop | mouth Twice daily | | | | | | hen (PERCOCET) 5-325 | as needed for Pain. | | | | | | mg per tablet | | | | | | + + + +---------+ + + | Probiotic Product | Take 1-2 capsules by | | 0 | | | | (PROBIOTIC DAILY PO) | mouth Daily. " | | | | | | | Perfect Biotic " | | | | | + + + +---------+ + + | vitamin B-12 | Take 1,000 mcg by | | 0 | 01/23/20 | | | (CYANOCOBALAMIN) | mouth Daily. | | | 12 | | | 1000 MCG tablet | | | | | | + + + +---------+ + + | VITAMIN E PO | Take 1 capsule by | | 0 | | | | | mouth Daily. | | | | | + + + +---------+ + + documented as of this encounter Plan of Treatment Not on filedocumented as of this encounter Procedures + +--------+ + + + | Procedure Name | Priori | Date/Time | Associated Diagnosis | Comments | | | ty | | | | + +--------+ + + + | PET CT SKULL BASE TO | DAVID | 02/18/2019 | Tumor Gastric | Results for this | | MID THIGH | | 1:20 PM | adenocarcinoma (HCC) | procedure are in the | | | | PDT | | results section. | + +--------+ + + + documented in this encounter Results PET CT Skull Base To Mid Thigh (02/18/2019 1:20 PM PDT) + + | Specimen | + + | | + + + + + | Impressions | Performed At | + + + | No abnormal activity within the gastric lumen. Very low level | [facility] | | activity in mildly prominent right axillary lymph nodes. These are | | | indeterminate. The likelihood of malignancy related pathology is | | | low given the SUV values. Focal asymmetric activity in the | | | posterior left tongue base. Consider direct visualization. | | | Dictated and Signed by: Raul Goldberg MD Electronically signed: | | | 02/18/2019 2:24 PM | | + + + + +-------- -------+ | Narrative | Perform ed At | + +-------- -------+ | Exam: PET CT | [facility] | | SKULL BASE TO MID THIGH dated 02/18/2019 9:41 AM History: Tumor; | | | Gastric adenocarcinoma (HCC) Comparison: CT chest abdomen pelvis | | | 12/31/2018 Technique: PET/CT imaging was performed from the skull base | | | through the proximalthighs following the uneventful intravenous | | | administration of 10.62 millicuriesof F-18 FDG. The glucose at the | | | time of injection is 103 mg/dL. Injection timeis 10:39 AM and scan | | | start time is 11:34 AM. Attenuation corrected,nonattenuation | | | corrected, and PET/CT fused data are reviewed on a multiplemodality | | | workstation. A low-dose CT is utilized for attenuation correction | | | andlocalization. This should not substitute for a diagnostic CT when | | | clinicallywarranted. Dose: CTDI = 8.83 mGy; DLP = 718.2 mGy per | | | centimeter Findings: PET/CT: Mediastinal background max SUV = 3.01 | | | (image 78).Liver background max SUV = 3.95 (image 121). Very mildly | | | hypermetabolic lymph node in the right retropectoral region. Thishas | | | a maximum SUV of 1.9 (image 65). This node measures 7 mm in short | | | axis. There is low level activity in a prominent lymph node in the | | | right axilla (image75). This has a maximum SUV of 1.42 and measures | | | 1 cm in short axis. No abnormal metabolic activity within the gastric | | | lumen. Mild asymmetric activity on the left posterior tongue base. | | | This is a maximumSUV of 3.7 cm image 31). Asymmetric degenerative | | | related activity in the right sternoclavicular joint. Asymmetric | | | activity in the left posterior shoulder musculature. The remainder of | | | the metabolic activity is physiologic as seen within the baseof the | | | brain, oropharyngeal soft tissues, heart, mediastinum, liver, | | | spleen,kidneys and collecting system. Additional activity is also | | | seen nonfocallythroughout the musculoskeletal system and | | | gastrointestinal tract. INCIDENTALS: Ectasia of the mid ascending | | | aorta measuring 4 cm. Stabledilatation of the common bile duct. | | | [id number] and in the right aspect of L4. | | |No abnormal metabolic activity within the gastric lumen. | | | | | |Mild asymmetric activity on the left posterior tongue base. This is a maximum | | |SUV of 3.7 cm image 31). | | | | | |Asymmetric degenerative related activity in the right sternoclavicular joint. | | |Asymmetric activity in the left posterior shoulder musculature. | | | | | |The remainder of the metabolic activity is physiologic as seen within the base | | |of the brain, oropharyngeal soft tissues, heart, mediastinum, liver, spleen, | | |kidneys and collecting system. Additional activity is also seen nonfocally | | |throughout the musculoskeletal system and gastrointestinal tract. | | | | | |INCIDENTALS: Ectasia of the mid ascending aorta measuring 4 cm. Stable | | |dilatation of the common bile duct. [id number] and in the right aspect of L4. | | | | | + +-------- -------+ + + | Procedure Note | + + | [place], Rad Results In - 02/18/2019 2:27 PM PDT Exam: PET CT SKULL BASE TO MID THIGH | | dated 02/18/2019 9:41 AMHistory: Tumor; Gastric adenocarcinoma (HCC)Comparison: CT chest | | abdomen pelvis 12/31/2018Technique: PET/CT imaging was performed from the skull base | | through the proximalthighs following the uneventful intravenous administration of 10.62 | | millicuriesof F-18 FDG. The glucose at the time of injection is 103 mg/dL. Injection | | timeis 10:39 AM and scan start time is 11:34 AM. Attenuation corrected,nonattenuation | | corrected, and PET/CT fused data are reviewed on a multiplemodality workstation. A | | low-dose CT is utilized for attenuation correction andlocalization. This should not | | substitute for a diagnostic CT when clinicallywarranted.Dose: CTDI = 8.83 mGy; DLP = | | 718.2 mGy per centimeterFindings:PET/CT: Mediastinal background max SUV = 3.01 (image | | 78).Liver background max SUV = 3.95 (image 121).Very mildly hypermetabolic lymph node in | | the right retropectoral region. Thishas a maximum SUV of 1.9 (image 65). This node | | measures 7 mm in short axis.There is low level activity in a prominent lymph node in the | | right axilla (image75). This has a maximum SUV of 1.42 and measures 1 cm in short | | axis.No abnormal metabolic activity within the gastric lumen.Mild asymmetric activity on | | the left posterior tongue base. This is a maximumSUV of 3.7 cm image 31).Asymmetric | | degenerative related activity in the right sternoclavicular joint. Asymmetric activity | | in the left posterior shoulder musculature.The remainder of the metabolic activity is | | physiologic as seen within the baseof the brain, oropharyngeal soft tissues, heart, | | mediastinum, liver, spleen,kidneys and collecting system. Additional activity is also | | seen nonfocallythroughout the musculoskeletal system and gastrointestinal | | tract.INCIDENTALS: Ectasia of the mid ascending aorta measuring 4 cm. Stabledilatation | | of the common bile duct. [id number] and in the right aspect of L4.IMPRESSION: No | | abnormal activity within the gastric lumen.Very low level activity in mildly prominent | | right axillary lymph nodes. Theseare indeterminate. The likelihood of malignancy | | related pathology is low giventhe SUV values.Focal asymmetric activity in the posterior | | left tongue base. Consider directvisualization.Dictated and Signed by: Raul Goldberg, | | Electronically signed: 02/18/2019 2:24 PM | |75). This has a maximum SUV of 1.42 and measures 1 cm in short axis. | | | |No abnormal metabolic activity within the gastric lumen. | | | |Mild asymmetric activity on the left posterior tongue base. This is a maximum | |SUV of 3.7 cm image 31). | | | |Asymmetric degenerative related activity in the right sternoclavicular joint. | |Asymmetric activity in the left posterior shoulder musculature. | | | |The remainder of the metabolic activity is physiologic as seen within the base | |of the brain, oropharyngeal soft tissues, heart, mediastinum, liver, spleen, | |kidneys and collecting system. Additional activity is also seen nonfocally | |throughout the musculoskeletal system and gastrointestinal tract. | | | |INCIDENTALS: Ectasia of the mid ascending aorta measuring 4 cm. Stable | |dilatation of the common bile duct. [id number]-im-deel and in the right aspect of L4. | | | |IMPRESSION: | | | |No abnormal activity within the gastric lumen. | | | |Very low level activity in mildly prominent right axillary lymph nodes. These | |are indeterminate. The likelihood of malignancy related pathology is low given | |the SUV values. | | | |Focal asymmetric activity in the posterior left tongue base. Consider direct | |visualization. | | | |Dictated and Signed by: Raul Goldberg MD | | Electronically signed: 02/18/2019 2:24 PM | + + + +---------+ + + | Performing | Address | City/State/Zipcode | Phone Number | | Organization | | | | + +---------+ + + | [facility] | | | | + +---------+ + + documented in this encounter Visit Diagnoses + + | Diagnosis | + + | Tumor | + + | Gastric adenocarcinoma (HCC) Malignant neoplasm of stomach, unspecified site | + + documented in this encounter Administered Medications + +--------+ + +------+------+ | Medication Order | MAR | Action | Dose | Rate | Site | | | Action | Date | | | | + +--------+ + +------+------+ | fluorine-18 FDG injection 10.62 | Given | 02/19/20 | 10.62 | | | | millicurie 10.62 millicurie, | | 19 10:39 | millicur | | | | Intravenous, ONCE, Leona 02/18/19 | | AM PDT | ies | | | | at 1045, For 1 dose | | | | | | + +--------+ + +------+------+ +---+---+ | | | +---+---+ documented in this encounter
--- OUTSIDE RECORDS SUMMARY | ~2019-05-06 | XMS | Encounter Summary ---
Demographics + + + | Address | [address] | | | [place] [address] | + + + | Home Phone | | + + + | Preferred Language | Unknown | + + + | Marital Status | | + + + | Caodaism Affiliation | NRP | + + + | Race | White | + + + | Ethnic Group | Not or | + + + Author + + + | Author | [facility] | + + + | Organization | [facility] | + + + | Address | Unknown | + + + | Phone | Unavailable | + + + Support + + + + + | Name | Relationship | Address | Phone | + + + + + | Matthew Ramirez | CHRIS | [address] | | | | | [place] | | | | | [address] | | + + + + + | Nella Haque | ECON | Unknown | | + + + + + Care Team Providers + +------+ + | Care Licensed Retail Supervisor Name | Role | Phone | + +------+ + | Long Copeland MD | PCP | | + +------+ + Reason for Visit + + + | Reason | Comments | + + + | Breast cancer | | + + + Consultation (Urgent) + +---------+ + + + + | Status | Reason | Specialty | Diagnoses / | Referred By | Referred To | | | | | Procedures | Contact | Contact | + +---------+ + + + + | Referred | Other | Hematology & | Diagnoses | Cristel Galicai | Hem Faculty | | | | Oncology | Tumor | [address] | [address] [address] | | | | | Procedures | [address] | [address] | | | | | CONSULT TO | [place], | Mailcode: | | | | | HEMATOLOGY / | [place] | [facility] | | | | | ONCOLOGY | [address] | Health and | | | | | PRACTICE | Phone: | [place], | | | | | | [phone] | [address] | | | | | | Fax: | [place], [place] | | | | | | [phone] | [address] | | | | | | | Phone: | | | | | | | [phone] | | | | | | | Fax: | | | | | | | [phone] | + +---------+ + + + + Encounter Details +--------+---------+ + + + | Date | Type | Department | Care Team | Description | +--------+---------+ + + + | 03/18/ | Office | Hematology/Medical | Rodriguez Bower MD | Breast cancer | | 2019 | Visit | [facility] at [place] | [address] | metastasized to | | | | for Health & Healing | [place], [place] | multiple sites, | | | | [address] | [address] | unspecified | | | | Mailcode: [place] | [phone] | laterality (HCC) | | | | for Health and | | (Primary Dx) | | | | Healing, [address] | | | | | | [place], [place] | | | | | | [address] | | | | | | [phone] | | | +--------+---------+ + + + [...] + + + | Blood Pressure | 163/77 | 03/18/2019 1:39 PM | | | | | PST | | + + + + + | Pulse | 89 | 03/18/2019 1:39 PM | | | | | PST | | + + + + + | Temperature | 36.7 C (98 F) | 03/18/2019 1:39 PM | | | | | PST | | + + + + + | Respiratory Rate | - | - | | + + + + + | Oxygen Saturation | 98% | 03/18/2019 1:39 PM | | | | | PST | | + + + + + | Inhaled Oxygen | - | - | | | Concentration | | | | + + + + + | Weight | 87.4 kg (192 lb 9.6 | 03/18/2019 1:39 PM | | | | oz) | PST | | + + + + + | Height | - | - | | + + + + + | Body Mass Index | 28.44 | 02/03/2019 9:48 AM | | | | | PDT | | + + + + + documented in this encounter Progress Notes Ramona Taylor MD - 03/18/2019 1:55 PM PST ONCOLOGY CLINIC NEW VISIT NOTE Author: Ramona Taylor MD Attending: Rodriguez Bower MD Reason for Consult: Metastatic breast cancer HPI: Ms. Ashly Ramirez is a 78 y.o. F with a history of diverticular disease s/p sigmoid brandon ctomy (2002), [facility] for cervical cancer (1973), who recently underwent EGD, with random stomac h biopsies concerning for metastatic breast cancer, presenting to discussion of medical ther apy. Ms. Ramirez presents today with her daughter. She confirms history as noted below. She rep orts several years of ongoing abdominal discomfort and nausea in the mornings. This was at i ts worst earlier this year in the spring, but it has actually improved since then and feels about where it has been for many years currently. She denies abdominal pain. She does feel s lightly nauseous most mornings and doesn't like to eat breakfast, but this resolves later in the day and she is able to eat lunch and dinner. No weight loss. She has alternating diarrh ea/constipation and reports a history of irritable bowel syndrome. She does have a history o f fibromyalgia and reports ongoing discomfort across her whole body; she is in a wheelchair today due to this pain. She lives in [place] with her , whom she cares for due to his dementia. Her daught er lives a few miles away. She manages her own IADLs and remains relatively active, gardenin g when weather is nice and caring for her home in the winter. Oncologic history: 12/2018: Underwent EGD for persistent LUQ pain, with 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 Antony of oncology at [facility], discussed getting EUS for further evaluati on : EUS with gastric adenocarcinoma within the lamina propria and muscularis propria/ submucosa 02/02/19: CT C/A/P with irregular gastrohepatic lymph node mildly suspicious for metastatic disease PET 02/18/19: No abnormal acitivity within gastric lumen, low level activity in mildly prominen t right axillary LNs, felt less likely malignancy given low SUV, focal asymmetric activity i n left posterior tongue base 03/04/19: Case presented at tumor board- overall picture felt to be inconsistent with a aparna gnosis of diffuse gastric cancer; in-depth pathology review showed some markers consistent w ith breast cancer (weakly ER+) Review of Systems: As noted above or in the HPI, but otherwise a 12 system review was negative. Past Medical History: Diagnosis Date Arthritis Cataracts, bilateral Cervical cancer (HCC) 1996 surgically treated Chronic constipation Chronic pain Depression cymbalta Diverticula of colon Dizziness and giddiness Essential hypertension Fibromyalgia gabapentin GERD (gastroesophageal reflux disease) Hypothyroidism on replacement Lichen sclerosus Past Surgical History: Procedure Laterality Date APPENDECTOMY 1950 BLADDER SURGERY 1970 removed urethral scar tissue and part of muscle of bladder for frequent UTIs BLADDER SUSPENSION 2005 Lynx retropubic sling BLADDER SUSPENSION 07/2010 revision of midurethral sling, placement of TOT CARPAL TUNNEL RELEASE 2007 removed part of tendon and reconstructed joint for arthritis CATARACT REMOVAL CHOLECYSTECTOMY, LAPAROSCOPIC 1996 COLECTOMY PARTIAL / TOTAL 2003 diverticulosis, removed 12 inch COLPORRHAPHY 2005 posterior repair, cadaveric graft CYSTOSCOPY 02/2010 coaptite injection FINGER TRIGGER RELEASE 2008 left thumb HB TAPE TVT GYNECARE 10/26/2010 HERNIA REPAIR KNEE ARTHROSCOPY 2001 TONSILLECTOMY AND ADENOIDECTOMY 1948 TOTAL ABDOMINAL HYSTERECTOMY 1974 age 33, cervical cancer, no chemo/radiation TUBAL LIGATION 1975 Allergies Allergen Reactions Codeine Psychosis Sulfa (Sulfonamide Antibiotics) Edema Current Medications acetaminophen (TYLENOL) 500 mg Oral Tablet, Take 1 Tab by mouth every four hours as needed. ascorbic acid SR (VITAMIN C) 1,000 mg Oral Tablet, Take 1,000 mg by mouth two times daily. Aspirin 81 mg Oral Tablet, Take 81 mg by mouth once daily. BLACK COHOSH ORAL, Take by mouth. CALCIUM CARBONATE/VITAMIN D3 (CALCIUM 600 + D OR), Take by mouth. cholecalciferol, Vitamin D3, 1,000 unit Oral Tablet, Take 1,000 Units by mouth every seven days. ciprofloxacin (CIPRO) 500 mg Oral Tablet, Take 1 Tab by mouth every twelve hours. clobetasol 0.05 % Topical Cream, Apply to affected area two times daily. Apply for up to 2 weeks. cyanocobalamin (VITAMIN B-12) 1,000 mcg Oral Tablet, Take 1,000 mcg by mouth once daily. doxepin 75 mg Oral Capsule, Take 10 mg by mouth once daily at bedtime. DULoxetine (CYMBALTA) 60 mg Oral Capsule, Delayed Release(E.C.), Take 60 mg by mouth once d aily. estradiol (ESTRACE) 0.01 % (0.1 mg/g) Vaginal Cream, Place 1 g into the vagina twice weekly (on Friday and ). folic acid 800 mcg Oral Tablet, Take 800 mcg by mouth once daily. gabapentin 300 mg Oral Capsule, Take 300 mg by mouth three times daily. Jqbvojxqjam-Wkqmxyrxp-Nzk C-Mn (GLUCOSAMINE CHONDROITIN MAXSTR) 500-400 mg Oral Capsule, Ta ke by mouth. levothyroxine (LEVOTHROID) 112 mcg Oral Tablet, Take 112 mcg by mouth once daily. lisinopril 20 mg Oral Tablet, Take 20 mg by mouth once daily. nabumetone (RELAFEN) 750 mg Oral Tablet, Take 750 mg by mouth two times daily. oxyCODONE-acetaminophen 5-325 mg Oral Tablet, Take 1 Tab by mouth every four hours as neede d. Not to exceed 12 tablets per any 24 hour period. simvastatin 40 mg Oral Tablet, Take 40 mg by mouth once daily in the evening. triamcinolone 55 mcg Nasal Aerosol, Hart, Instill 2 Sprays into each nostril once daily. triamcinolone acetonide 0.1 % Topical Cream, Apply to affected area three times daily. Diane ly thin film to affected areas. 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 Social Needs Financial resource strain: Not on file Food insecurity: Worry: Not on file Inability: Not on file Transportation needs: Medical: Not on file Non-medical: Not on file Tobacco Use Smoking status: Never Smoker Smokeless tobacco: Never Used Substance and Sexual Activity Alcohol use: Yes Comment: 0-3/day- wine Drug use: No Sexual activity: Never Comment: partner not able Lifestyle Physical activity: Days per week: Not on file Minutes per session: Not on file Stress: Not on file Relationships Social connections: Talks on phone: Not on file Gets together: Not on file Attends tenriism service: Not on file Active member of club or organization: Not on file Attends meetings of clubs or organizations: Not on file Relationship status: Not on file Other Topics Concern Not on file Social History Narrative [place] 32[place]. Son in [place]. 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 Now traveling [facility]. Family History Problem Relation Cancer Mother multiple myeloma Heart Disease Mother CHF Cancer Father multiple myeloma Cancer Sister breast Cancer Brother throat, neck Physical Exam: Last Vitals: BP 163/77 (BP Location: Left upper arm, Patient Position: Sitting) | Pulse 89 | Temp 36.7 C (98 F) (Oral) | Wt 87.4 kg (192 lb 9.6 oz) | SpO2 98% | BMI 28.44 kg/ m | BSA 2.06 m General: Alert, oriented, and does not appear to be in any acute distress. Sitting in wheel chair HEENT: PERRL with no scleral icterus or conjunctival injection. Cardiac: Extremities warm and well-perfused Pulm: Breathing comfortably on room air Extremities: Warm and well perfused, no pitting edema in the lower extremities bilaterally. Skin: No rashes, no bruising/petechiae Neuro: Cranial nerves grossly intact bilaterally. Psych: Pleasant and appropriate affect ECO Data: CBC with diff last 72 hours (or 3 results) No results for input(s): WBC, HB, HCT, PLT, NEUTROPERC, LYMPHPERC, MONOPERC, BASOPERC, EOSP ERC in the last 72 hours. Invalid input(s): BANDPCT Chemistries: Last 72 Hours (or 3 results): No results for input(s): NA, K, CL, BICARB, BUN, CR, GLU, CA, MG, PO4 in the last 72 hours. No results for input(s): AST, ALT, TBILI, AP, ALB, TP in the last 4320 hours. No results found for: FERRITIN No results found for: APTT, FIBRINOGEN Pathology: 01/13/19: Final Pathologic Diagnosis 1. Multiple specimens A to F [id number]; 01/13/19): A. Stomach, antrum at great curvature, biopsy: Rare foci of poorly-differentiated carcinoma (see comment) No evidence of Helicobacter pylori by provided immunostain B. Stomach, antrum at lesser curvature, biopsy: Gastric antral mucosa with mild chronic inflammation No evidence of malignancy C. Stomach, angularis, biopsy: Rare foci of poorly-differentiated carcinoma (see comment) D.Stomach, body at greater curvature, biopsy Rare foci of poorly-differentiated carcinoma (see comment) E. Stomach, body at lesser curvature, biopsy: Rare foci of poorly-differentiated carcinoma (see comment) F. Stomach, fundus, biopsy: Rare foci of poorly-differentiated carcinoma (see comment) Comment: We appreciate the opportunity to review this case and agree with the reported diag nosis. Rare scattered tumor cells are identified between otherwise unremarkable gastric glan ds and underlying muscularis mucosae. The tumor cells are highlighted by provided camarillo-cytoke ratin, RACHANA-3, and ER (weak) immunostains; CDX-2 is negative. No background intestinal metap lasia or dysplasia is identified. The combined immunohistologic findings favor metastatic lobular breast carcinoma, although primary gastric adenocarcinoma cannot fully be excluded. The tumor cells are too rare for ac curate hormone receptor testing. Dr. Mary Moss has reviewed this case and agrees with the interpretation. Case seen by: Rach Lim MD Pathology Resident Bonifacio Resendez MD Pathologist Pathology, [facility] My electronic signature indicates that I have personally reviewed all diagnostic slides, the gross and/or microscopic portion of this report and formulated the final diagno sis. Imagin02/18/19 PET-CT per Care Everywhere: No abnormal activity within the gastric lumen. Very low level activity in mildly prominent right axillary lymph nodes.These are indeterminate.The likelihood of malignancy related pathology is low given the SUV values. Focal asymmetric activity in the posterior left tongue base.Consider direct visualization. Dictated and Signed by: Raul Goldberg MD Electronically signed: 02/18/2019 2:24 PM Assessment and Recommendations: Ms. Ashly Ramirez is a 78 y.o. F with recently diagnosed with likely metastatic lobular breast carcinoma on gastric biopsies. #Metastatic lobular breast carcinoma: While not a common presentation, lobular breast carci noma does have more propensity to metastasize to the GI tract than invasive ductal carcinoma . On CT scan, she does have an enlarged gastrohepatic lymph node which may represent metasta tic disease; otherwise no evidence of distant disease. We discussed that endocrine therapy alone may improve her symptoms; would not add more aggr essive therapy at this point as she is overall asymptomatic. We would plan for tamoxifen rat her than an AI given her ongoing symptoms from arthritis and fibromyalgia. We also discussed further breast imaging to evaluate for primary- she is due for her annual screening mammogram, but we would recommend breast MRI for better evaluation. We also discu ssed given her family history of breast cancer (2 sisters and her daughter), she would be re commended to undergo genetic testing if she is interested in completing this. She would like to have imaging done locally and have 3 month follow-up closer to home if po ssible, especially as the winter months approach. Will discuss with Dr. Antony who she saw before. Plan: -breast MRI now to be done locally, will request Dr. Antony's office to order this to be done locally -start tamoxifen 20mg qday, prescription sent -will request that she follow-up with Dr. Antony in 3 months to see how she's tolerati ng tamoxifen -PET-CT in 6 months, will request Dr. Antony's office to order this to be done locally -follow-up with Dr. Bower in 6 months -consider genetic counseling with future visits The patient's case has been staffed with my attending physician, Dr. oBwer, who agrees with my assessment and recommendations or otherwise as noted in their addendum. Ramona Taylor MD Hematology/Oncology Fellow PGY-5 Pager [phone] Associated attestation - Rodriguez Bower MD - 03/21/2019 5:40 PM PSTI saw and examined the patient with Dr. Taylor, I agree with her assessment and plan Patient with metastatic lobular carcinoma, ER positive on EGD biopsy without any other defi nitive evidence of metastatic disease. Discussed starting endocrine therapy, and monitor steven e effects and response to therapy with PET in 6 months. She will follow with oncology locall y, we will contact their office Rodriguez Bower MD, MS ID#[id number] Office [facility]pers[facility] javascript engineer Division of Hematology and Medical Oncology [facility] Pager#[phone] documented in this encounter Plan of Treatment Not on filedocumented as of this encounter Visit Diagnoses + + | Diagnosis | + + | Breast cancer metastasized to multiple sites, unspecified laterality (HCC) - Primary | + + documented in this encounter"
--- OUTSIDE RECORDS SUMMARY | ~2019-05-06 | XMS | Encounter Summary ---
Demographics + + + | Address | [address] | | | [place] [address] | + + + | Home Phone | | + + + | Preferred Language | Unknown | + + + | Marital Status | | + + + | Faith Affiliation | Unknown | + + + | Race | Unknown | + + + | Ethnic Group | Unknown | + + + Author + + + | Author | [facility] | | | and [place] | + + + | Organization | [facility] | | | and [...] + | Matthew Ramirez | ECON | [address] | | | | | [place] | | | | | [address] | | + + + + + Care Team Providers + +------+ + | Care Special Class Welder Name | Role | Phone | + [...] + + | 01/20/ | Telephone | [facility] | Matthew Shukla MD | Results, Pathology | | 2019 | | GASTROENTEROLOGY | [address] [facility] | | | | | [address] [facility] | [place], [place] | | | | | [address] [place], [place] | [address] | | | | | [address] | [phone] | | | | | [phone] | | | +--------+ + + + [...]
--- OUTSIDE RECORDS SUMMARY | ~2019-05-06 | XMS | Encounter Summary ---
Demographics + + + | Address | [address] | | | [place] [address] | + + + | Home Phone [...] + | Matthew Ramirez | CHRIS | [address] | | | | | [place] | | | | | [address] | | + + + + + | Nella Lowery ECON | Unknown | | + + + + + Care Team Providers + +------+ + | Care Zoo Veterinarian Name | Role | Phone | + +------+ + | Long Copeland MD | PCP | | + +------+ + Encounter Details +--------+ + + + + | Date | Type | Department | Care Team | Description | +--------+ + + + + | 01/26/ | Abstract | Surgical Oncology | Cristel Galicia MD | | | 2019 | | at [facility] [address] | [address] | | | | | [address] Mail Code: | [place], [place] | | | | | [facility] | [address] | | | | | and Healing, | [phone] | | | | | [address] | | | | | | [place], [place] | | | | | | [address] | | | | | | [phone] | | | +--------+ + + + [...]
--- OUTSIDE RECORDS SUMMARY | ~2019-05-06 | XMS | Encounter Summary ---
Demographics + + + | Address | [address] | | | [place] [address] | + + + | Home Phone | | + + + | Preferred Language | Unknown | + + + | Marital Status | | + + + | Anglican Affiliation | NRP | + + + | Race | White | + + + | Ethnic Group | Not or | + + + Author + + + | Author | [facility] | + + + | Organization | [facility] | + + + | Address | Unknown | + + + | Phone | Unavailable | + + + Support + + + + + | Name | Relationship | Address | Phone | + + + + + | Matthew Ramirez | CHRIS | [address] | | | | | [place] | | | | | [address] | | + + + + + | Nella Haque | ECON | Unknown | | + + + + + Care Team Providers + +------+ + | Care Regional Sales Associate Name | Role | Phone | + [...] | | | Gastric | MD [address] | | | | | | [address]ocarcino | [address] | | | | | | ma (HCC) | [place], | | | | | | Procedures | [place] | | | | | | CT ABDOMEN | [address] | | | | | | AND PELVIS W | Phone: | | | | | | IV CONTRAST | [phone] | | | | | | | Fax: | | | | | | | [phone] | | + +--------+ + + + [...] | | | Gastric | MD [address] | | | | | | adenocarcino | [address] | | | | | | ma (HCC) | [place], | | | | | | Procedures | [place] | | | | | | CT ABDOMEN | [address] | | | | | | AND PELVIS W | Phone: | | | | | | IV CONTRAST | [phone] | | | | | | | Fax: | | | | | | | [phone] | | + +--------+ + + + + Encounter Details +--------+ + + + + | Date | Type | Department | Care Team | Description | +--------+ + + + + | 02/02/ | Hospital | Radiology/Imaging | Cristel Galicia MD | | | 2019 | Encounter | Lab at [facility] [address] | [address] | | | | | [address] Mailcode: | [place], [place] | | | | | [address] | [address] | | | | | Health and Healing, | [phone] | | | | | [address] | | | | | | Floor [facility] [place] | | | | | | [address] | | | | | | [phone] | | | +--------+ + + + [...] +---------+ + + | acetaminophen | Take 1 Tab by mouth | | 0 | /16/ | | | (TYLENOL) 500 mg | every four hours as | | | 11 | | | Oral Tablet | needed. | | | | | + + + +---------+ + + | ascorbic acid SR | Take 1,000 mg by | | 0 | | | | (VITAMIN C) 1,000 mg | mouth two times | | | | | | Oral Tablet | daily. | | | | | + + + +---------+ + + | Aspirin 81 mg Oral | Take 81 mg by mouth | | 0 | | | | Tablet | once daily. | | | | | + + + +---------+ + + | BLACK COHOSH ORAL | Take by mouth. | | 0 | | | + + + +---------+ + + | CALCIUM | Take by mouth. | | 0 | | | | CARBONATE/VITAMIN D3 | | | | | | | (CALCIUM 600 + D | | | | | | | OR) | | | | | | + + + +---------+ + + | cholecalciferol, | Take 1,000 Units by | | 0 | | | | Vitamin D3, 1,000 | mouth every seven | | | | | | unit Oral Tablet | days. | | | | | + + + +---------+ + + | ciprofloxacin | Take 1 Tab by mouth | 14 Tab | 0 | 10/22/ | | | (CIPRO) 500 mg Oral | every twelve hours. | | | 11 | | | Tablet | | | | | | + + + +---------+ + + | clobetasol 0.05 % | Apply to affected | | 0 | | | | Topical Cream | area two times | | | | | | | daily. Apply for up | | | | | | | to 2 weeks. | | | | | + + + +---------+ + + | cyanocobalamin | Take 1,000 mcg by | | 0 | | | | (VITAMIN B-12) 1,000 | mouth once daily. | | | | | | mcg Oral Tablet | | | | | | + + + +---------+ + + | doxepin 75 mg Oral | [...] + + + +---------+ + + | estradiol | Place 1 g into the | 42.5 g | 2 | 10/05/19 | | | (ESTRACE) 0.01 % | vagina twice weekly | | | 11 | | | (0.1 mg/g) Vaginal | (on Friday and | | | | | | Cream | ). | | | | | + + + +---------+ + + | folic acid 800 mcg | Take 800 mcg by | | 0 | | | | Oral Tablet | mouth once daily. | | | | | + + + +---------+ + + | gabapentin 300 mg | Take 300 mg by mouth | | 0 | | | | Oral Capsule | three times daily. | | | | | + + + +---------+ + + | | Take by mouth. | | 0 | | | | Glucosamine-Chondroi | | | | | | | t-Vit C-Mn | | | | | | | (GLUCOSAMINE | | | | | | | CHONDROITIN MAXSTR) | | | | | | | 500-400 mg Oral | | | | | | | Capsule | | | | | | + + + +---------+ + + | levothyroxine | Take 112 mcg by | | 0 | | | | (LEVOTHROID) 112 mcg | mouth once daily. | | | | | | Oral Tablet | | | | | | + + + +---------+ + + | lisinopril 20 mg | Take 20 mg by mouth | | 0 | | | | Oral Tablet | once daily. | | | | | + + + +---------+ + + | nabumetone | Take 750 mg by mouth | | 0 | | | | (RELAFEN) 750 mg | two times daily. | | | | | | Oral Tablet | | | | | | + + + +---------+ + + | | Take 1 Tab by mouth | | 0 | | | | oxyCODONE-acetaminop | every four hours as | | | | | | hen 5-325 mg Oral | needed. Not to | | | | | | Tablet | exceed 12 tablets | | | | | | | per any 24 hour | | | | | | | period. | | | | | + + + +---------+ + + | simvastatin 40 mg | Take 40 mg by mouth | | 0 | | | | Oral Tablet | once daily in the | | | | | | | evening. | | | | | + + + +---------+ + + | triamcinolone 55 | Instill 2 Sprays | | 0 | | | | mcg Nasal Aerosol, | into each nostril | | | | | | [place] | once daily. | | | | | + + + +---------+ + + | triamcinolone | Apply to affected | | 0 | | | | acetonide 0.1 % | area three times | | | | | | Topical Cream | daily. Apply thin | | | | | | | film to affected | | | | | | | areas. | | | | | + + [...] necessary, edited the report. I agree with e report as now presented. | | [...] (H) | 0.6 - 1.1 mg/dL | ME[facility] - [facility], | | | POC | | | [...] + + | DANISHA FARIAS | [address] [facility] | [place] [address] | | | OF CARE TESTS | [...]
--- OUTSIDE RECORDS SUMMARY | ~2019-05-06 | XMS | Encounter Summary ---
Demographics + + + | Address | [address] | | | [place] [address] | + + + | Home Phone | | + + + | Preferred Language | Unknown | + + + | Marital Status | | + + + | Taoist Affiliation | NRP | + + + | Race | White | + + + | Ethnic Group | Not or | + + + Author + + + | Author | [facility] | + + + | Organization | [facility] | + + + | Address | Unknown | + + + | Phone | Unavailable | + + + Support + + + + + | Name | Relationship | Address | Phone | + + + + + | Matthew Ramirez | CHRIS | [address] | | | | | [place] | | | | | [address] | | + + + + + | Nella Haque | ECON | Unknown | | + + + + + Care Team Providers + +------+ + | Care Carbon Paper Machine Operator Name | Role | Phone | + +------+ + | Long Copeland MD | PCP | | + +------+ + Encounter Details +--------+ + + + + | Date | Type | Department | Care Team | Description | +--------+ + + + + | 01/28/ | Procedure | Radiology/Imaging | | | | 2018 | Pass | Lab at [facility] [address] | | | | | | [address] Mailcode: | | | | | | [facility] | | | | | | [facility] and Healing, | | | | | | [place] [address] [facility] | | | | | | [place], [place] | | | | | | [address] | | | | | | [phone] | | | +--------+ + + + [...]
--- OUTSIDE RECORDS SUMMARY | ~2019-05-06 | XMS | Encounter Summary ---
Demographics + + + | Address | [address] | | | [place] [address] | + + + | Home Phone | | + + + | Preferred Language | Unknown | + + + | Marital Status | | + + + | Confucianism Affiliation | Unknown | + + + | Race | Unknown | + + + | Ethnic Group | Unknown | + + + Author + + + | Author | [facility] | | | and [place] | + + + | Organization | [facility] | | | and [...] + | Matthew Ramirez | ECON | [address] | | | | | [place] | | | | | [address] | | + + + + + Care Team Providers + +------+ + | Care Licensed And Certified Midwife Name | Role | Phone | + +------+ + | Ashly Rojo PA-C | PCP | | + +------+ + Encounter Details +--------+---------+ + + + | Date | Type | Department | Care Team | Description | +--------+---------+ + + + | 03/06/ | Surgery | [facility] | [facility] | [facility] | | 2017 | | [facility]TRA OP | [address] | Toes 2nd , 3rd, and | | | | [address] [place] | [address] [place], | 4th Toes | | | | [place], [place] | [place] [address] | | | | | [address] | [phone] | | | | | [phone] | | | +--------+---------+ + + + [...] Care Everywhere.Foot Surgery: Maurice pace Fifth Toe (Swedish)Foot Surgery: Flexible and Rigid Hammertoes (Swedish)Mallet, Hammer , and Claw Toes, Treating (Swedish)Mallet, Hammer, and Claw Toes, What Are (Swedish)document ed in this encounter Medications at Time [...] by: Jason BurnsElectronically | | Signed by: aJson Burns on 03/06/2017 12:52 PM | | [...] in this encounter Administered Medications + +--------+ +--------+------+ + | Medication Order | MAR | Action | Dose | Rate | Site | | | Action | Date | | | | + +--------+ +--------+------+ + | bupivacaine (PF) (MARCAINE) | Given | 10/26/20 | 16 mLs | | Foot-Rig | | 0.5% injection PRN, Starting Leona | | 17 11:48 | | | ht | | 03/06/17 at 1148, Intra-op | | AM PDT | | | | + +--------+ +--------+------+ + +---+---+ | | | +---+---+ + +---------+ +---+---+---+ | lactated ringers (LR) infusion | New Bag | 03/06/20 | | | | | at 10-100 mL/hr, Intravenous, | | 17 11:10 | | | | | CONTINUOUS, Starting Leona 03/06/17 | | AM PDT | | | | | at 1100, TKO., Pre-op | | | | | | + +---------+ +---+---+---+ +---+---+ | | | +---+---+ + +-------+ +--------+---+ + | lidocaine (PF) 1% injection | Given | 03/06/20 | 10 mLs | | Foot-Rig | | PRN, Starting Leona 03/06/17 at | | 17 11:30 | | | ht | | 1130, Intra-op | | AM PDT | | | | + +-------+ +--------+---+ + +---+---+ | | | +---+---+ documented in this encounter"
--- OUTSIDE RECORDS SUMMARY | ~2019-05-06 | XMS | Encounter Summary ---
Demographics + + + | Address | [address] | | | [place] [address] | + + + | Home Phone | | + + + | Preferred Language | Unknown | + + + | Marital Status | | + + + | Episcopalian Affiliation | Unknown | + + + | Race | Unknown | + + + | Ethnic Group | Unknown | + + + Author + + + | Author | [facility] | | | and [place] | + + + | Organization | [facility] | | | and [...] + | Matthew Ramirez | ECON | [address] | | | | | [place] | | | | | [address] | | + + + + + Care Team Providers + +------+ + | Care Assistant Signal Maintainer Name | Role | Phone | + +------+ + | Ashly Rojo PA-C | PCP | | + +------+ + Reason for Visit + + + | Reason | Comments | + + + | Coordination Of Care | | + + + Encounter Details +--------+ + + + + | Date | Type | Department | Care Team | Description | +--------+ + + + + | 03/18/ | Telephone | [facility] | Arpan | Coordination Of Care | | 2019 | | MED [facility] | Luis Richards MD [address] | | | | | [facility] [address] | [facility] | | | | | [facility] | [place] [address] | | | | | [place] [address] | [phone] | | | | | [phone] | | | +--------+ + + + [...]
--- OUTSIDE RECORDS SUMMARY | ~2019-05-06 | XMS | Encounter Summary ---
Demographics + + + | Address | [address] | | | [place] [address] | + + + | Home Phone | | + + + | Preferred Language | Unknown | + + + | Marital Status | | + + + | Jehovah'S Witness Affiliation | Unknown | + + + | Race | Unknown | + + + | Ethnic Group | Unknown | + + + Author + + + | Author | [facility] | | | and [place] | + + + | Organization | [facility] | | | and [place] | [...] + | Matthew Ramirez | CHRIS | [address] | | | | | [place] | | | | | [address] | | + + + + + Care Team Providers + +------+ + | Care Lab Head Name | Role | Phone | + +------+ + PCP | Unavailable | + +------+ + Encounter Details +--------+ + + + + | Date | Type | Department | Care Team | Description | +--------+ + + + + | 11/24/ | Hospital | [facility] | [place], | | | 2009 | Encounter | MED CTR GENERIC OP | Katerin Xavier MD | | | | | CONV DEPT [address] | | | | | | [place], | | | | | | [place] [address] | | | | | | [phone] | | | +--------+ + + + [...]
--- OUTSIDE RECORDS SUMMARY | ~2019-05-06 | XMS | Encounter Summary ---
Demographics + + + | Address | [address] | | | [place] [address] | + + + | Home Phone | | + + + | Preferred Language | Unknown | + + + | Marital Status | | + + + | Temple Affiliation | Unknown | + + + | Race | Unknown | + + + | Ethnic Group | Unknown | + + + Author + + + | Author | [facility] | | | and [place] | + + + | Organization | [facility] | | | and [...] + | Matthew Ramirez | ECON | [address] | | | | | [place] | | | | | [address] | | + + + + + Care Team Providers + +------+ + | Care Hotel Yardperson Name | Role | Phone | + +------+ + | Ashly Rojo PA-C | PCP | | + +------+ + Encounter Details +--------+ + + + + | Date | Type | Department | Care Team | Description | +--------+ + + + + | 11/17/ | Abstract | [facility] | Provider, | | | 2018 | | GASTROENTEROLOGY | MD [address] | | | | | [address] [place] | [place] | | | | | [address] | [place] [address] | | | | | [address] | | | | | | [phone] | | | +--------+ + + + [...]
--- OUTSIDE RECORDS SUMMARY | ~2019-05-06 | XMS | Encounter Summary ---
Demographics + + + | Address | [address] | | | [place] [address] | + + + | Home Phone [...] | Author | [facility] | | | and [place] | + + + | Organization | [facility] [...] + | Matthew Ramirez | ECON | [address] | | | | | [place] | | | | | [address] | | + + + + + Care Team Providers + +------+ + | Care Asset Manager Name | Role | Phone | + +------+ + | Ashly Rojo PA-C | PCP | | + +------+ + Encounter Details +--------+ + + + + | Date | Type | Department | Care Team | Description | +--------+ + + + + | 01/06/ | Imaging | [facility] | Provider, | | | 2019 | Exam | MED CTR EXTERNAL | MD [address] | | | | | IMAGING | [place] [address] | | | | | [phone] | [place] [address] | | +--------+ + + + + [...] | + +--------+ + + + | FL SMALL BOWEL WATER | Routin | 10/21/2017 | | Results for this | | SOLUBLE | e | 12:00 AM | | procedure are in the | | | | PDT | | results section. | + +--------+ + + + documented in this encounter Results FL Small Bowel Water Soluble (10/21/2017 12:00 AM PDT) + + | Specimen [...]
--- OUTSIDE RECORDS SUMMARY | ~2019-05-06 | XMS | Encounter Summary ---
Demographics + + + | Address | [address] | | | [place] [address] | + + + | Home Phone [...] | Author | [facility] | | | and [place] | + + + | Organization | [facility] | | | and [...] + | Matthew Ramirez | ECON | [address] | | | | | [place] | | | | | [address] | | + + + + + Care Team Providers + +------+ + | Care Roll Examiner Name | Role | Phone | + +------+ + | Ashly Rojo PA-C | PCP | | + +------+ + Encounter Details +--------+ + + + + | Date | Type | Department | Care Team | Description | +--------+ + + + + | 01/01/ | Imaging | [facility] | Provider, | | | 2019 | Exam | MED CTR EXTERNAL | MD [address] | | | | | IMAGING | [place] [address] | | | | | [phone] | [place] [address] | | +--------+ + + + + [...] CT ABDOMEN PELVIS W | Routin | 10/18/2017 | | Results for this | | CONTRAST | e | 12:00 AM | | procedure are in the | | | | PDT | | results section. | + +--------+ + + + documented in this encounter Results CT Abdomen Pelvis w Contrast (10/18/2017 12:00 AM PDT) + + | Specimen [...]
--- OUTSIDE RECORDS SUMMARY | ~2019-05-06 | XMS | Encounter Summary ---
Demographics + + + | Address | [address] | | | [place] [address] | + + + | Home Phone | | + + + | Preferred Language | Unknown | + + + | Marital Status | | + + + | Jain Affiliation | Unknown | + + + | Race | Unknown | + + + | Ethnic Group | Unknown | + + + Author + + + | Author | [facility] | | | and [place] | + + + | Organization | [facility] | | [...] + | Matthew Ramirez | ECON | [address] | | | | | [place] | | | | | [address] | | + + + + + Care Team Providers + +------+ + | Care Music Assistant Name | Role | Phone | [...] [place] | | | | | [phone] | [place] [address] | | +--------+ + + + + [...]
--- OUTSIDE RECORDS SUMMARY | ~2019-05-06 | XMS | Clinical Summary ---
Demographics + + + | Address | [address] | | | [place] [address] | + + + | Home Phone | | + + + | Preferred Language | Unknown | + + + | Marital Status | | + + + | Baptism Affiliation | NRP | + + + [...] + | Matthew Ramirez | ECON | [address] | | | | | [place] | | | | | [address] | | + + + + + | Nella Haque | ECON | Unknown | | + + + + + Care Team Providers + +------+ + | Care Supply Aide Name | Role | Phone | + +------+ + | Long Copeland MD | PCP | | + +------+ + Source Comments ME[facility] Allergies + + + + + [...] | | + + + +---------+------+------+-------+ | gabapentin 300 mg | Take 300 mg by mouth | | 0 | | | Activ | | Oral Capsule | three times [...] | | + + + +---------+------+------+-------+ | simvastatin 40 mg | Take 40 mg by mouth | | 0 | | | Activ | | Oral Tablet | once daily in the | | | | | e | | | evening. | | | | | | + + + +---------+------+------+-------+ | nabumetone | Take 750 mg by mouth | | 0 | | | Activ | | (RELAFEN) 750 mg | two [...] e | + + + +---------+------+------+-------+ | clobetasol 0.05 % | Apply to affected | | 0 | | | Activ | | Topical Cream | area two times | | | | | e | | | daily. Apply for up | | | | | | | | to 2 weeks. | | | | | | + + + +---------+------+------+-------+ | triamcinolone | Apply to affected | | 0 | | | Activ | | acetonide 0.1 % | area three times | | | | | e | | Topical Cream | daily. Apply thin | | | | | | | | film to affected | | | | | | | | areas. | | | | | | + + + +---------+------+------+-------+ | triamcinolone 55 | Instill 2 Sprays | | 0 | | | Activ | | mcg Nasal Aerosol, | into each nostril | | | | | e | | [place] | once daily. | | | | | | + + + +---------+------+------+-------+ | | Take 1 Tab by mouth | | 0 | | | Activ | | oxyCODONE-acetaminop | every four hours as | | | | | e | | hen 5-325 mg Oral | needed. Not to | | | | | | | Tablet | exceed 12 tablets | | | | | | | | per any 24 hour | | | | | | | | period. | | | | | | + [...] + + +---------+------+------+-------+ | cyanocobalamin | Take 1,000 mcg by | | 0 | | | Activ | | (VITAMIN B-12) 1,000 | mouth once daily. | | | | | e | | mcg Oral Tablet | | | | | | | + + + +---------+------+------+-------+ | folic acid 800 mcg | Take 800 mcg by | | 0 | | | Activ | | Oral Tablet | mouth once daily. | | | | | e | + + + +---------+------+------+-------+ | cholecalciferol, | Take 1,000 Units by | | 0 | | | Activ | | Vitamin D3, 1,000 | mouth every seven | | | | | e | | unit Oral Tablet | days. | | | | | | + + + +---------+------+------+-------+ | | Take by mouth. | | 0 | | | Activ | | Glucosamine-Chondroi | | | | | | e | | t-Vit C-Mn | | | | | | | | (GLUCOSAMINE | | | | | | | | CHONDROITIN MAXSTR) | | | | | | | | 500-400 mg Oral | | | | | | | | Capsule | | | | | | | + + + +---------+------+------+-------+ | BLACK COHOSH ORAL | Take by mouth. | | 0 | | | Activ | | | | | | | | e | + + + +---------+------+------+-------+ | Aspirin 81 mg Oral | Take 81 mg by mouth | | 0 | | | Activ | | Tablet | once daily. | | | | | e | + + + +---------+------+------+-------+ | estradiol | Place 1 g into the | 42.5 g | 2 | 05/2 | | Activ | | (ESTRACE) 0.01 % | vagina twice weekly | | | 6/20 | | e | | (0.1 mg/g) Vaginal | (on Friday and | | | 11 | | | | Cream | ). | | | | | | + + + +---------+------+------+-------+ | ciprofloxacin | Take 1 Tab by mouth | 14 Tab | 0 | 06/1 | | Activ | | (CIPRO) 500 mg Oral | every twelve hours. | | | 3/20 | | e | | Tablet | | | | 11 | | | + + + +---------+------+------+-------+ | acetaminophen | Take 1 Tab by mouth | | 0 | 06/1 | | Activ | | (TYLENOL) 500 mg | every four hours as | | | 6/20 | | e | | Oral Tablet | needed. | | | 11 | | | + + + +---------+------+------+-------+ | tamoxifen 20 mg | Take 1 tablet by | 30 | 5 | | | Activ | | oral | mouth once daily. | tablet | | 12/29 | | e | | tabletIndications: | Indications: Hormone | | | 19 | | | | hormone receptor | Receptor Positive | | | | | | | positive breast | Breast Cancer | | | | | | | cancer | | | | | | | + + + +---------+------+------+-------+ Active Problems Not on file Encounters +--------+ + + + + | Date | Type | Specialty | Care Team | Description | +--------+ + + + + | 03/18/ | Office | Hematology & | Rodriguez Bower MD | Breast cancer | | 2019 | Visit | Oncology | | metastasized to | | | | | | multiple sites, | | | | | | unspecified | | | | | | laterality (HCC) | | | | | | (Primary Dx) | +--------+ + + + + | 03/18/ | Telephone | Hematology & | Gregg Ordoñez PharmD | Oral Chemo | | 2018 | | Oncology | | (tamoxifen) | +--------+ + + + + | 03/18/ | Travel | | | | | 2018 | | | | | +--------+ + + + + | 03/04/ | Client Care Representative | Surgical Oncology | Cristel Galicia MD | Tumor (Primary Dx) | | 2018 | | | | | +--------+ + + + + | 03/04/ | Documentati | Surgical Oncology | Cristel Galicia MD | Tumor Board | | 2018 | on | | | Recommendation | +--------+ + + + + | 02/24/ | Lab | | Cristel Galicia MD | | | 2018 | Requisition | | | | +--------+ + + + + | 02/18/ | Outside | | Other, Faculty | | | 2018 | Records | | | | +--------+ + + [...] | | + + + + + Procedures + +--------+ + + [...] section. | + +--------+ + + + from Last 3 Months Results OUTSIDE RADIOLOGY - NUC MED (02/18/2019 12:00 AM PDT)Only the most recent of 2 results with in the time period is included. + + + | Narrative | Performed At | + + + | | | + + + from Last 3 Months Insurance [...] | B | | sent | | [place] | | | | | | | | [address] | | + +--------+ +--------+ + +--------+ | [employer]ARE | MODA | xxxxxxxxx | 05/12/19 | [phone] | [address] | POS | | SUPPLEMENT | MEDICA | | 19-Pre | 4 | [address] | | | | RE | | sent | | [place], | | | | SUPPLE | | | | [place] [address] | | | | MENT | | | | | | + +--------+ +--------+ + +--------+ + +--------+ +--------+ + + | Guarantor Name | Accoun | Relation to | Date | Phone | Billing Address | | | t Type | Patient | of | | | | | | | | | | + +--------+ +--------+ + + | JamesAshly Alberto | Person | Self | [birth year] | [address] | | | al/Rene | | 1941 | [phone] | [place] | | | amrik | | | [address] (Home) | [address] | + +--------+ +--------+ + + Advance [...]
--- OUTSIDE RECORDS SUMMARY | ~2019-05-06 | XMS | Encounter Summary ---
Demographics + + + | Address | [address] | | | [place] [address] | + + + | Home Phone | | + + + | Preferred Language | Unknown | + + + | Marital Status | | + + + | Episcopalian Affiliation | Unknown | + + + | Race | Unknown | + + + | Ethnic Group | Unknown | + + + Author + + + | Author | [facility] | | | and [place] | + + + | Organization | [facility] | [...] + | Matthew Ramirez | ECON | [address] | | | | | [place] | | | | | [address] | | + + + + + Care Team Providers + +------+ + | Care Cnc Maintenance Technician Name | Role | Phone | [...] | 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 | [address] | | | | | adenocarcino | [address] | [place], | | | | | ma (HCC) | [address] | [place] [address] | | | | | Procedures | [place], [place] | Phone: | | | | | CT Chest | [address] | [phone] | | | | | Abdomen | Phone: | Fax: | | | | | Pelvis w | [phone] | [phone] | | | | | Contrast | Fax: | | | | | | CHG CT | [phone] | | | | | | SCAN,ABDOMEN | | | | | | | AND | | | | | | | PELVIS,W | | | | | | | CONTRAST [place] | | | | | | | [...] | | ma (HCC) | [address] | [address] | | | | | | [place], [place] | [place], | | | | | | [address] | [place] [address] | | | | | | Phone: | Phone: | | | | | | [phone] | [phone] | | | | | | Fax: | Fax: | | | | | | [phone] | [phone] | +--------+ + + + + + Reason for Visit + + + | Reason | Comments | + + + | Results, Pathology | | + + + Encounter Details +--------+ + + + + | Date | Type | Department | Care Team | Description | +--------+ + + + + | 12/29/ | Telephone | [facility] | Matthew Shukla MD | Results, Pathology | | 2019 | | GASTROENTEROLOGY | [address] [facility] | | | | | [address] [facility] | [place], [place] | | | | | [address] [place], [place] | [address] | | | | | [address] | [phone] | | | | | [phone] | | | +--------+ + + + [...] +--------+ + + | AMB REFERRAL TO [facility] | Outpatient | Routin | Gastric | [...]
--- OUTSIDE RECORDS SUMMARY | ~2019-05-06 | XMS | Encounter Summary ---
Demographics + + + | Address | [address] | | | [place] [address] | + + + | Home Phone | | + + + | Preferred Language | Unknown | + + + | Marital Status | | + + + | Taoism Affiliation | NRP | + + + [...] + | Matthew Ramirez | CHRIS | [address] | | | | | [place] | | | | | [address] | | + + + + + | Nella Haque | ECON | Unknown | | + + + + + Care Team Providers + +------+ + | Care School Inspector Name | Role | Phone | + [...] | Hematology & | Diagnoses | Cristel Galicia | Hem Faculty | | | | Oncology | Tumor | MD [address] | [address] | | | | | Procedures | [address] | [address] | | | | | CONSULT TO | [place], | Mailcode: | | | | | HEMATOLOGY / | [place] | [facility] | | | | | ONCOLOGY | [address] | Health and | | | | | PRACTICE | Phone: | [place], | | | | | | [phone] | [address] | | | | | | Fax: | [place], [place] | | | | | | [phone] | [address] | | | | | | | Phone: | | | | | | | [phone] | | | | | | | Fax: | | | | | | | [phone] | + +---------+ + + + + Encounter Details +--------+---------+ + + + | Date | Type | Department | Care Team | Description | +--------+---------+ + + + | 03/18/ | Office | Hematology/Medical | Rodriguez Bower MD | Breast cancer | | 2019 | Visit | Oncology at [place] | [address] | metastasized to | | | | for Health & Healing | [place], [place] | multiple sites, | | | | [address] | [address] | unspecified | | | | Mailcode: [facility] | [phone] | laterality (HCC) | | | | for Health and | | (Primary Dx) | | | | Healing, [address] | | | | | | [place], [place] | | | | | | [address] | | | | | | [phone] | | | +--------+---------+ + + + [...] diverticular disease s/p sigmoid brandon ctomy (2002), [facility] for cervical cancer (1973), who recently [...] due to this pain. She lives in [place] with her , whom she cares for [...] adenocarcinoma -saw Dr. Antony of oncology at [facility], discussed getting EUS for further evaluati on [...] 300 mg by mouth three times daily. Ajfvgzjrzti-Guvevzkmg-Hsz C-Mn (GLUCOSAMINE CHONDROITIN MAXSTR) 500-400 mg Oral [...] the evening. triamcinolone 55 mcg Nasal Aerosol, [place], Instill 2 Sprays into each nostril once [...] file Gets together: Not on file Attends adventist service: Not on file Active member of club or organization: Not on file Attends meetings of clubs or organizations: Not on file Relationship status: Not on file Other Topics Concern Not on file Social History Narrative [place]. Son in [place]. 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 Now traveling [facility]. Family History Problem Relation Cancer Mother multiple [...] Diagnosis 1. Multiple specimens A to F (-[id number]; 01/13/19): A. Stomach, antrum at great curvature, [...] Pathology Resident Bonifacio Resendez MD Pathologist Pathology, [facility] My electronic signature indicates that I have [...] been staffed with my attending physician, Dr. Bower, who agrees with my assessment and recommendations or otherwise as noted in their addendum. Ramona Taylor MD Hematology/Oncology Fellow PGY-5 Pager [phone] Associated attestation - Rodriguez Bower MD - [...] contact their office Rodriguez Bower MD, MS ID#[id number] Calender Machine Operator Helpercentral supply nurse Division of Hematology and Medical Oncology [facility] Pager#[phone] documented in this encounter Plan of Treatment Not on filedocumented as of this encounter Visit Diagnoses + + | Diagnosis | + + | Breast cancer metastasized to multiple sites, unspecified laterality (HCC) - Primary | + + documented in this encounter"
--- OUTSIDE RECORDS SUMMARY | ~2019-05-06 | XMS | Encounter Summary ---
Demographics + + + | Address | [address] | | | [place] [address] | + + + | Home Phone | | + + + | Preferred Language | Unknown | + + + | Marital Status | | + + + | Zoroastrian Affiliation | Unknown | + + + | Race | Unknown | + + + | Ethnic Group | Unknown | + + + Author + + + | Author | [facility] | | | and [place]eno[place] | + + + | Organization | [facility] | [...] + | Matthew Ramirez | ECON | [address] | | | | | [place] | | | | | [address] | | + + + + + Care Team Providers + +------+ + | Care Folder Hand Name | Role | Phone | [...] | | | unspecified | | [place] [address] | | | | | type | | Phone: | | | | | Chronic | | [phone] | | | | | abdominal | | Fax: | | | | | pain | | [phone] | | | | | Benzodiazepi | [...] | | | | | | | CO | | | | | | | ESOPHAGOGAST | | | | | | | RODUODENOSCO | | | | | | | PY TRANSORAL | | | | | | | DIAGNOSTIC | | | | | | | CO EGD | | | | | | | TRANSORAL | | | | | | | BIOPSY | | | | | | | SINGLE/MULTI | | | | | | | PLE CO | | | | | | | COLONOSCOPY | | | | | | | FLX DX | | | | | | | W/COLLJ SPEC | | | | | | | WHEN PFRMD | | | | | | | CO | | | | | | | COLONOSCOPY | | | | | | | W/BIOPSY | | | | | | | SINGLE/MULTI | | | | | | | PLE CO | | | | | | | COLSC FLX | | | | | | | W/RMVL OF | | | | | | | TUMOR POLYP | | | | | | | LESION SNARE | | | | | | | TQ CO | | | | | | [...] | | | | | [address] | [address] [facility] | | | | | [place] | [place] [address] | | | | | [address] | [phone] | | | | | [phone] | | | +--------+ + + + [...] 12/17/18 1622 by | | nicolas | [id number] catheter system; | Gris Davis RN | [...]
--- OUTSIDE RECORDS SUMMARY | ~2019-05-06 | XMS | Encounter Summary ---
Demographics + + + | Address | [address] | | | [place] [address] | + + + | Home Phone [...] Author | [facility] | | | and Nenoana | + + + | Organization | [facility] | | | and Nenoana | [...] + | Matthew Ramirez | ECON | [address] | | | | | [place] | | | | | [address] | | + + + + + Care Team Providers + +------+ + | Care Flight Surgeon Name | Role | Phone | + [...] | | | unspecified | | [place] [address] | | | | | type | | Phone: | | | | | Chronic | | [phone] | | | | | abdominal | | Fax: | | | | | pain | | [phone] | | | | | Benzodiazepi | [...] | | | | | | | [place] | | | | | | | ESOPHAGOGAST | | | | | | | RODUODENOSCO | | | | | | | PY TRANSORAL | | | | | | | DIAGNOSTIC | | | | | | | FL EGD | | | | | | | TRANSORAL | | | | | | | BIOPSY | | | | | | | SINGLE/MULTI | | | | | | | PLE FL | | | | | | | COLONOSCOPY | | | | | | | FLX DX | | | | | | | W/COLLJ SPEC | | | | | | | WHEN PFRMD | | | | | | | FL | | | | | | | COLONOSCOPY | | | | | | | W/BIOPSY | | | | | | | SINGLE/MULTI | | | | | | | PLE FL | | | | | | | COLSC FLX | | | | | | | W/RMVL OF | | | | | | | TUMOR POLYP | | | | | | | LESION SNARE | | | | | | | TQ FL | | | | | | | [...] + + + + | 12/17/ | Hospital | [facility] | aMtthew Shukla MD | Rectal bleeding; | | 2019 | Encounter | [facility] | [address] | Diarrhea, | | | | [address] | [place] | unspecified type; | | | | [place] | [address] | Chronic abdominal | | | | [address] | [phone] | pain; Benzodiazepine | | | | 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 | | dependence (HCC); | | | [...] loss, | | | | | | unintentional; | | | | | | History of colonic | | | | | | polyps | +--------+ + + + + Social [...] | | | | | episodic use ([facility]) | | | | | | LUQ [...] | WAMT | | GastroenterologyPatient Name: Ashly RamirezProcedsandi Date: 12/17/2018 | PROVATION | | 3:06 PMMRN: [id number] #: [id number] of : | | | 1940dmit Type: [...] | | | the anesthesiologist and the emergency response technician in the pre-procedure | | | [...] Out: 3:26:19 | | | PM [facility], [address] [place] [address] | | | [place] [address] | | | - Await pathology results. [...] Out: 3:26:19 PM | | | [facility], [address] [place] [address] | | | [address] | | + + -+ + +---------+ [...] At | + + -+ | | BUZZMT | | GastroenterologyPatient Name: Ashly RamirezRc Date: 12/17/2018 | PROVATION | | 3:04 PMMRN: [id number] #: [id number] of : | | | 9Admit Type: AmbulatoryAge: 78Room: Endo Room 2Gender: | | | FemaleNote Status: FinalizedAttending MD: Matthew Shukla , | | | MDProcedure: ColonoscopyIndications: Abdominal | | | pain in the left upper quadrant, Hematochezia, | | | Chronic diarrhea, Weight lossProviders: Matthew Rosales | | | MD Gayla, Rina Edouard RN, Conrado Kang, [facility], | | | Devon Murdock MD [...] the anesthesiologist and the | | | emergency response technician in the pre-procedure area in the [...] | | | evaluated using the BBPS ([place] Bowel Preparation Scale) with | | | [...] | recommendations were discussed with the patient.Matthew Shukla, | | | 12/17/2018 4:05:18 PMThis report has been signed electronically.Number | | | of Addenda: 0Note Initiated On: 12/17/2018 3:04 PMScope Withdrawal | | | Time: 0 hours 16 minutes 43 seconds Scope In: 3:31:39 PMScope Out: | | | 3:55:04 PM [facility], [address] [facility], | | | [place] [address] | | | - Await pathology results. [...] Out: 3:55:04 PM | | | [facility], [address] [facility], [place] | | | [address] | | + + -+ + +---------+ + + | Performing | Address | City/State/[facility] Center[facility] | Phone Number | | Organization | [...] | COMMENT: A -- As part of [facility]' Quality Improvement | | | Program, this portion of the case has been reviewed by another member | | | of our pathology staff with subspecialty training in gastrointestinal | | | pathology. Results called to Dr. Shukla office [facility]) 12/24/18 | | | 10:15 AM. Discussed results on specimen A with Dr. Shukla 12/10`09/27 | | | 2:15 PM. LJA:smn:C2NR GROSS [...] | and its performance characteristics determined by [facility]. | | | It has not been cleared or approved by the U.S. Food and Drug | | | Administration. The FDA has determined that such clearance or | | | approval is not necessary. This test is used for clinical purposes. | | | It should not be regarded as investigational or for research. | | | [facility] is certified under the Clinical Laboratory | | | Improvement Amendments of 1988 (CLIA) as qualified to perform high | | | complexity clinical laboratory testing. PERFORMING LABORATORY: | | | The technical component was performed by [facility], [address] | | | [place] [address] (Reference Test Clerk: Marilyn Dowell MD; | | | CLIA# [id number]). Professional interpretation was performed by | | | [facility], [address] | | | [address] [place] [address] (Reference Test Clerk: Guevara Ernandez | | | ; CLIA# [id number]). ADDITIONAL NOTES: Immunohistochemical | | | and/or in situ hybridization studies were performed on this case with | | | the appropriate positive controls that react as expected. This test | | | was developed and its performance characteristics determined by | | | [facility]. It has not been cleared or approved by the U.S. | | | Food and Drug Administration. The FDA has determined that such | | | clearance or approval is not necessary. This test is used for | | | clinical purposes. It should not be regarded as investigational or | | | for research. [facility] is certified under the Clinical | | | Laboratory Improvement Amendments of 1988 (CLIA) as qualified to | | | perform high complexity clinical laboratory testing. PERFORMING | | | LABORATORY: The technical component was performed by [facility] | | | [email or web address], [address] [place] [address] (Reference Test Clerk: | | | Marilyn Dowell MD; CLIA# [id number]). Professional interpretation was | | | performed by [facility], [address] [place] [address] | | | [place] [address] (Reference Test Clerk: Darien Kapoor D.O.; CLIA#: | | | [id number]). REASON FOR ADDENDUM: To add results of [...] the FDA-approved HER-2 Pathway is performed at [facility] | | | [email or web address], on accession #[id number] from at the [...] the Vysis PathVysion kit was performed at [facility] | | | [email or web address] The assay has not been validated [...] interpretation was | | | performed by [facility], [address] [place] [address] | | | [place] [address] (Reference Test Clerk: Everardo HillOPeggy; [facility]#: | | | [id number]). Diagnostician: Guevara Ernandez MD Pathologist | | [...] [place] [facility] | | | | | [facility] | | | | + +---------+ + [...] unintentional Loss of weight | + + | History of colonic polyps Personal history of colonic polyps | + + documented in this encounter [...] ONCE PRN, | | | Wheezing, Starting [facility] 12/17/18 at | | | 1346, For 1 dose, Pre-op | | + +---+ | | | + +---+ | albuterol-ipratropium 2.5-0.5 | | | mg/3 mL nebulizer solution 3 mL | | | 3 mL, Nebulization, ONCE PRN, | | | Wheezing, Shortness of Breath, | | | Starting [facility] 12/17/18 at 1615, For | | [...] glucose < 50, | | | Starting [facility] 12/17/18 at 1346, | | | Repeat [...]
--- OUTSIDE RECORDS SUMMARY | ~2019-05-06 | XMS | Encounter Summary ---
Demographics + + + | Address | [address] | | | [place] [address] | + + + | Home Phone | | + + + | Preferred Language | Unknown | + + + | Marital Status | | + + + | Mormonism Affiliation | Unknown | + + + | Race | Unknown | + + + | Ethnic Group | Unknown | + + + Author + + + | Author | [facility] | | | and [place]eno[place] | + + + | Organization | [facility] | | | and Nenoana [...] + | Matthew Ramirez | CHRIS | [address] | | | | | [place] | | | | | [address] | | + + + + + Care Team Providers + +------+ + | Care Metal Patternmaker Apprentice Name | Role | Phone | + +------+ + PCP | Unavailable | + +------+ + Encounter Details +--------+ + + + + | Date | Type | Department | Care Team | Description | +--------+ + + + + | 01/22/ | Abstract | [place] [facility] | [facility] | | | 2011 | | Conversion Location | SR | | | | | [phone] | | | +--------+ + + + [...] + + + | Blood Pressure | 120/64 | 12/08/2009 12:00 AM | | | | | PDT | | + + + + + | Pulse | - | - | | + + + + + | Temperature | - | - | | + + + + + | Respiratory Rate | - | - | | + + + + + | Oxygen Saturation | - | - | | + + + + + | Inhaled Oxygen | - | - | | | Concentration | | | | + + + + + | Weight | 97 kg (213 lb 12.8 | 12/08/2009 12:00 AM | | | | oz) | PDT | | + + + + + | Height | 175.3 cm (5' 9") | 11/24/2009 12:00 AM | | | | | PDT | | + + + + + | Body Mass Index | 31.57 | 11/24/2009 12:00 AM | | | | | PDT | | + + + + + documented in this encounter Plan of Treatment Not on filedocumented as of this encounter Visit Diagnoses Not on filedocumented in this encounter
--- OUTSIDE RECORDS SUMMARY | ~2019-05-06 | XMS | Encounter Summary ---
Demographics + + + | Address | [address] | | | [place] [address] | + + + | Home Phone | | + + + | Preferred Language | Unknown | + + + | Marital Status | | + + + | Hoahaoism Affiliation | Unknown | + + + | Race | Unknown | + + + | Ethnic Group | Unknown | + + + Author + + + | Author | [facility] | | | and [place]eno[place] | + + + | Organization | [facility] | | [...] + | Matthew Ramirez | ECON | [address] | | | | | [place] | | | | | [address] | | + + + + + Care Team Providers + +------+ + | Care Scene And Lighting Design Lecturer Name | Role | Phone | + [...] + + | Closed | Specialty | Liver and | Diagnoses | Gayla, | Elva, | | | Services | Pancreas | 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 | MD Christopher | | | Required | Surgery | adenocarcino | [address] | [address] | | | | | ma (HCC) | [address]VD | [place] [address] | | | | | Gastric mass | [place], [place] | [place] | | | | | Procedures | [address] | [address] Phone: | | | | | Urgent- | Phone: | [phone] | | | | | EGD + EUS | [phone] | Fax: | | | | | NEXT WEEK | Fax: | [phone] | | | | | | [phone] | | +--------+ + + + + + Encounter Details +--------+ + + + + | Date | Type | Department | Care Team | Description | +--------+ + + + + | 01/06/ | Orders Only | [facility] | Matthew Shukla MD | Gastric | | 2019 | | GASTROENTEROLOGY | [address] | adenocarcinoma (HCC) | | | | [address] [facility] | [place], [place] | (Primary Dx) | | | | [address] [place] | [address] | | | | | [address] | [phone] | | | | | [phone] | | | +--------+ + + + [...] documented as of this encounter Progress Notes Arlyn Kirkland RN - 01/06/2019 3:11 PM PDTDr. Shukla notified patient needed Urgent referral to [facility] for Eval Egd/EUS of gastric adenocarcinoma r/o linitus past ica. Once approved will contact Dr. Shukla with provider information as he would like to spe ak with provider. Tdocumented in this encounter Plan of Treatment + + +--------+ + + | Name | Type | Priori | Associated Diagnoses | Order Schedule | | | | ty | | | + + +--------+ + + | AMB Referral to [facility] | Outpatient | Routin | Gastric | Ordered: 01/06/2019 | | [place] | Referral | e | adenocarcinoma (HCC) | | | Gastroenterology | | | | | | ([place]) | | | | | + + +--------+ + + documented as of this encounter Visit Diagnoses + + | Diagnosis | + + | Gastric adenocarcinoma (HCC) - Primary Malignant neoplasm of stomach, unspecified | | site | + + documented in this encounter"
--- OUTSIDE RECORDS SUMMARY | ~2019-05-06 | XMS | Encounter Summary ---
Demographics + + + | Address | [address] | | | [place] [address] | + + + | Home Phone | | + + + | Preferred Language | Unknown | + + + | Marital Status | | + + + | Tenriism Affiliation | NRP | + + + [...] + | Matthew Ramirez | CHRIS | [address] | | | | | [place] | | | | | [address] | | + + + + + | Nella Lowery ECON | Unknown | | + + + + + Care Team Providers + +------+ + | Care Cable Swager Name | Role | Phone | + [...] Amador | | | | | at Amador Neal [facility]et | [facility] | | | | | [address] | [place] [address] | | | | | Loop Mailcode: | | | | | | [id number] [facility] | | | | | | [facility] | | | | | | [place], [place] | | | | | | [address] | | | | | | [phone] | | | +--------+ + + + [...] Tab by mouth | | 0 | 10/26/19 | | | (TYLENOL) 500 mg | [...] mouth | 14 Tab | 0 | 10/23/19 | | | (CIPRO) 500 mg Oral [...] nostril | | | | | | [place] | once daily. | | | | [...] view image for the detailed interpretation from [employer] results. | CARDIOLOGY | + + + + + + + + | Performing | Address | City/State/Zipcode | Phone Number | | Organization | | | | + + + + + | [facility] | [address] | [place], [place] | | | CARDIOLOGY | [address] | [address] | | + + + + + documented in this encounter Visit Diagnoses Not on filedocumented in this encounter
--- OUTSIDE RECORDS SUMMARY | ~2019-05-06 | XMS | Encounter Summary ---
Demographics + + + | Address | [address] | | | [place] [address] | + + + | Home Phone | | + + + | Preferred Language | Unknown | + + + | Marital Status | | + + + | Tenriism Affiliation | Unknown | + + + | Race | Unknown | + + + | Ethnic Group | Unknown | + + + Author + + + | Author | [facility] | | | and [place] | + + + | Organization | [facility] | | | and [place] | [...] + | Matthew Ramirez | ECON | [address] | | | | | [place] | | | | | [address] | | + + + + + Care Team Providers + +------+ + | Care Welder Fitter Apprentice Name | Role | Phone | [...] [place] | | | | | [phone] | [place] [address] | | +--------+ + + + + [...] | + +--------+ + + + | US ABDOMEN LIMITED | Routin | 07/29/2014 | | Results for this | | | e | 12:00 AM | | procedure are in the | | | | PDT | | results section. | + +--------+ + + + documented in this encounter Results US Abdomen Limited (07/29/2014 12:00 AM PDT) + + | Specimen [...]
--- OUTSIDE RECORDS SUMMARY | ~2019-05-06 | XMS | Encounter Summary ---
Demographics + + + | Address | [address] | | | [place] [address] | + + + | Home Phone | | + + + | Preferred Language | Unknown | + + + | Marital Status | | + + + | Cheondoism Affiliation | Unknown | + + + | Race | Unknown | + + + | Ethnic Group | Unknown | + + + Author + + + | Author | [facility] | | | and [place] | + + + | Organization | [facility] | | | and Neno[place] [...] + | Matthew Ramirez | CHRIS | [address] | | | | | [place] | | | | | [address] | | + + + + + Care Team Providers + +------+ + | Care Public Space Attendant Name | Role | Phone | + +------+ + PCP | Unavailable | + +------+ + Encounter Details +--------+ + + + + | Date | Type | Department | Care Team | Description | +--------+ + + + + | 03/12/ | Hospital [facility] | | | [facility] - | Encounter | [facility] | | | | | | [address] [place] | | | | 04/17/ | | [place] [address] | | | | 2005 | | [phone] | | | +--------+ + + + [...]
--- OUTSIDE RECORDS SUMMARY | ~2019-05-06 | XMS | Encounter Summary ---
Demographics + + + | Address | [address] | | | [place] [address] | + + + | Home Phone | | + + + | Preferred Language | Unknown | + + + | Marital Status | | + + + | Jew Affiliation | NRP | + + + [...] + | Matthew Ramirez | CHRIS | [address] | | | | | [place] | | | | | [address] | | + + + + + | Nella Haque | ECON | Unknown | | + + + + + Care Team Providers + +------+ + | Care Hardware Designer Name | Role | Phone | + [...] of bladder | | 2010 | | [facility] | MD Gillian [address] | (surgery 10/26/10, | | | | [address] | [address] | urogyn) | | | | [address] | [place], [place] | | | | | [id number] [facility] | [address] | | | | | [facility], | [phone] | | | | | [place] [address] | | | | | | [phone] | | | +--------+ + + + [...] Acid, Amikacin, Aztreonam, Ciprofloxacin, Ceftriaxone, | - [place] | | Cefazolin, Ertapenem, Cefepime, Ertapenem, Cefepime, [...] [address] | [place] [address] | | | [place] | [address] | | | + + + + + documented in this encounter Visit Diagnoses + + | Diagnosis | + + | UTI (urinary tract infection) - Primary Urinary tract infection, site not specified | + + documented in this encounter"
--- OUTSIDE RECORDS SUMMARY | ~2019-05-06 | XMS | Encounter Summary ---
Demographics + + + | Address | [address] | | | [place] [address] | + + + | Home Phone | | + + + | Preferred Language | Unknown | + + + | Marital Status | | + + + | Hindu Affiliation | NRP | + + + [...] + | Matthew Ramirez | CHRIS | [address] | | | | | [place] | | | | | [address] | | + + + + + | Nella Haque | ECON | Unknown | | + + + + + Care Team Providers + +------+ + | Care Co Op Name | Role | Phone | + [...] 2019 | on | at [facility] [address] | [address] | Recommendation | | | | [address] Mail Code: | [place], [place] | | | | | [facility] | [address] | | | | | and [place], | [phone] | | | | | [address] | | | | | | [place], [place] | | | | | | [address] | | | | | | [phone] | | | +--------+ + + + [...]
--- OUTSIDE RECORDS SUMMARY | ~2019-05-06 | XMS | Encounter Summary ---
Demographics + + + | Address | [address] | | | [place] [address] | + + + | Home Phone | | + + + | Preferred Language | Unknown | + + + | Marital Status | | + + + | Bahai Affiliation | Unknown | + + + | Race | Unknown | + + + | Ethnic Group | Unknown | + + + Author + + + | Author | [facility] | | | and [place]eno[place] | + + + | Organization | [facility] | | | and [...] + | Matthew Ramirez | ECON | [address] | | | | | [place] | | | | | [address] | | + + + + + Care Team Providers + +------+ + | Care Technical Specialist Cytogenetics Name | Role | Phone | + [...] | | Procedures | [address] | [place] [address] | | | | | office visit | [place] | Phone: | | | | | | [place] [address] | [phone] | | | | | | Phone: | Fax: | | | | | | [phone] | [phone] | | | | | | Fax: | | | | | | | [phone] | | +--------+--------+ + + + + Encounter Details +--------+---------+ + + + | Date | Type | Department | Care Team | Description | +--------+---------+ + + + | 12/14/ | Office | [facility] | Matthew Shukla MD | Chronic abdominal | | 2019 | Visit | GASTROENTEROLOGY | [address] | pain (Primary Dx); | | | | [address] [facility] | [place], [place] | Diarrhea, | | | | [address] [place], [place] | [address] | unspecified type; | | | | [address] | [phone] | Rectal bleeding; | | | | [phone] | | Benzodiazepine | | | | [...] 0700 on 12/17, finishing by 0830; 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 Encouraged [...]
--- OUTSIDE RECORDS SUMMARY | ~2019-05-06 | XMS | Encounter Summary ---
Demographics + + + | Address | [address] | | | [place] [address] | + + + | Home Phone [...] Author | [facility] | | | and Nenoana | + + + | Organization | [facility] | | | and [...] + | Matthew Ramirez | CHRIS | [address] | | | | | [place] | | | | | [address] | | + + + + + Care Team Providers + +------+ + | Care Squadron Worker Name | Role | Phone | + +------+ + PCP | Unavailable | + +------+ + Encounter Details +--------+ + + + + | Date | Type | Department | Care Team | Description | +--------+ + + + + | [facility]12/ | [facility] | | | [facility] - | Encounter | [facility] | | | | | | [address] [place] | | | | 04/17/ | | [place] [address] | | | | 2005 | | [phone] | | | +--------+ + + + [...]
--- OUTSIDE RECORDS SUMMARY | ~2019-05-06 | XMS | Encounter Summary ---
Demographics + + + | Address | [address] | | | [place] [address] | + + + | Home Phone [...] | Author | [facility] | | | and [place]enoana | + + + | Organization | [facility] | | | and [...] + | Matthew Ramirez | ECON | [address] | | | | | [place] | | | | | [address] | | + + + + + Care Team Providers + +------+ + | Care Tin Can Feeder Name | Role | Phone | + +------+ + | Ashly Rojo PA-C | PCP | | + +------+ + Encounter Details +--------+ + + + + | Date | Type | Department | Care Team | Description | +--------+ + + + + | 01/05/ | Abstract | [facility] | Provider, | | | 2019 | | SURGERY [address] | MD [address] | | | | | [place], [place] | [place] | | | | | [address] | [place] [address] | | | | | [phone] | | | +--------+ + + + [...]
--- OUTSIDE RECORDS SUMMARY | ~2019-05-06 | XMS | Encounter Summary ---
Demographics + + + | Address | [address] | | | [place] [address] | + + + | Home Phone [...] + | Matthew Ramirez | CHRIS | [address] | | | | | [place] | | | | | [address] | | + + + + + | Nella Haque | ECON | Unknown | | + + + + + Care Team Providers + +------+ + | Care System Archive Analyst Name | Role | Phone | + +------+ + | Long Copeland MD | PCP | | + +------+ + Encounter Details +--------+ + + + + | Date | Type | Department | Care Team | Description | +--------+ + + + + | 01/28/ | Procedure | Radiology/Imaging | | | | 2018 | Pass | Lab at [facility] [address] | | | | | | [place] Mailcode: | | | | | | [facility] | | | | | | [facility], | | | | | | [place] [address] [facility] | | | | | | [place], [place] | | | | | | [address] | | | | | | [phone] | | | +--------+ + + + [...]
--- OUTSIDE RECORDS SUMMARY | ~2019-05-06 | XMS | Encounter Summary ---
Demographics + + + | Address | [address] | | | [place] [address] | + + + | Home Phone | | + + + | Preferred Language | Unknown | + + + | Marital Status | | + + + | Alevism Affiliation | Unknown | + + + | Race | Unknown | + + + | Ethnic Group | Unknown | + + + Author + + + | Author | [facility] | | | and [place] | + + + | Organization | [facility] | | | and [place] [...] + | Matthew Ramirez | CHRIS | [address] | | | | | [place] | | | | | [address] | | + + + + + Care Team Providers + +------+ + | Care Shield Runner Name | Role | Phone | + +------+ + PCP | Unavailable | + +------+ + Encounter Details +--------+ + + + + | Date | Type | Department | Care Team | Description | +--------+ + + + + | 07/15/ | Hospital | [facility] | | | | 2001 | Encounter | MED CTR GENERIC OP | | | | | | CONV DEPT [address] | | | | | | [place], | | | | | | [place] [address] | | | | | | [phone] | | | +--------+ + + + [...]
--- OUTSIDE RECORDS SUMMARY | ~2019-05-06 | XMS | Encounter Summary ---
Demographics + + + | Address | [address] | | | [place] [address] | + + + | Home Phone [...] + | Matthew Ramirez | CHRIS | [address] | | | | | [place] | | | | | [address] | | + + + + + | Nella Garland | ECON | Unknown | | + + + + + Care Team Providers + +------+ + | Care Audio Operator Name | Role | Phone | + +------+ + | Long Copeland MD | PCP | | + +------+ + Reason for Referral Consult to [place] (Routine) +--------+--------+ + + + + | Status | Reason | Specialty | Diagnoses / | Referred By | Referred To | | | | | Procedures | Contact | Contact | +--------+--------+ + + + + | Closed | | Obstetrics & | Diagnoses | Rios, | [facility] | | | | Gynecology | Intrinsic | Avis | [address] | | | | | sphincter | MD Gillian | [address] | | | | | deficiency | [address] | [id number] | | | | | (ISD) | [facility] | [facility] | | | | | Urinary | Rd | [place], | | | | | stress | [place], [place] | [place] [address] | | | | | incontinence | [address] | Phone: | | | | | Procedures | Phone: | [phone] | | | | | REQUEST TO | [phone] | Fax: | | | | | SURGERY | Fax: | [phone] | | | | | IMMIGRATION SERVICES OFFICER | [phone] | | | | | | [place] | | | | | | | CYSTOURETHRO | | | | | | | SCOP[place] | | | | | | | SLING OPER | | | | | | | STRES | | | | | | | INCONTINENCE | | | +--------+--------+ + + + + Reason for Visit + + + | Reason | Comments | + + + | Urinary incontinence | | + + + Benefits Check [...] | | | | | | | [address] | | | | | | | [id number] | | | | | | | [facility] | | | | | | | [facility] | | | | | | | [place] [address] | | | | | | | Phone: | | | | | | | [phone] | | | | | | | Fax: | | | | | | | [phone] | +--------+--------+ + + + + Encounter Details +--------+---------+ + + + | Date | Type | Department | Care Team | Description | +--------+---------+ + + + | 10/03/ | Office [facility] Avis Rios | Intrinsic sphincter | | 2010 | Visit | [facility] | MD Gillian [address] | deficiency (ISD) | | | | [facility] [address] | (Primary Dx); | | | | [address] | [place], [place] | Urinary | | | | /[id number] | [address] | incontinence; | | | | [facility] | [phone] | Urinary stress | | | | [place] [address] | | incontinence | | | | [phone] | | | +--------+---------+ + + + [...] + + + | Blood Pressure | 160/90 | 10/03/2010 9:38 AM | | | | | PDT | | + + + + + | Pulse | 86 | 10/03/2010 9:38 AM | | | | | PDT [...] + + + + | Weight | 102.6 kg (226 lb 3.2 | 10/03/2010 9:38 AM | | | | oz) | PDT | | + + + + + | Height | 174.6 cm (5' 8.75") | 10/03/2010 9:38 AM | | | | | PDT | | + + + + + | Body Mass Index | 33.65 | 10/03/2010 9:38 AM | | | | | PDT | | + + + + + documented in this encounter Progress Notes Avis Rios MD - 10/29/2010 4:30 PM PDTI was present with Dr. Sprague during the h istory, exam and procedures performed. I discussed the case with Dr. Sprague and agree with [facility] findings and plan as documented in her note. Jackie Velázquez M D - 10/03/2010 12:32 PM PDTHPI: Ms. Ramirez is a reporting the following problems: Urinary incontinence Provider requesting consultation: Dr. Kitty Zhou The following is a list of her major symptoms: Enuresis Constant wetness AMOUNT OF URINARY LEAKAGE Soaks maxipad Difficulty with voiding Poor stream No symptoms of prolapse No difficulty with defecation She complains of many years of urinary incontinence. It started in the with some mild stress incontinence where she crossed her legs if she needed to sneeze. Over time it became worse and she found she would spontaneously leak urine. There was no associated urinary urg ency or warning of leaking. It started as drops and slowly has progressed to being constantl y wet and requiring the large incontinence pads. She avoids drinking during the day and her incontinence is better by the afternoon. But at night with her feet up, her leg swelling dec reases and her urine output increases. In 2005 she underwent a retropubic Lynx sling placement and a posterior repair with cadaver ic graft. Her incontinence did not improve after this surgery. Per outside records, summary of urodynamics revealed normal PVR and evidence of ISD (full report not available for review ). In 02/2010 she underwent cystoscopy with coaptite injection. She reports no difference in her leakage with this procedure. In 07/2010 she underwent a TOT procedure for concern for o sherry-angulation of the urethra with the retropubic sling. Since that procedure her leakage byrnes s become much worse. She did have a post op UTI that was treated. Her past medical history is significant for for fibromyalgia and arthitis for which she ta kes gabapentin and cymbalta. She takes doxepin for depression. She also has lichen sclerosis and uses topical clobetasol prn. Her surgical history is significant for a bladder procedure in 1970 where she had transvagi nal resection of utrthral scar tissue and removal of some bladder muscle at the mouth of the bladder. She denies any problems with her incontinence until ~10yrs after that surger y. She also had an abdominal hysterectomy for cervical cancer, but does not recall if it was a radical hysterectomy. Ovaries were left and she did not require chemo/radiation. Addition ally she had the procedures above for incontinence. Dr. Zhou discussed with Ms Ramirez that there may be few treatment options at this point . The past medical history, surgical history, family history, social history, 10-point review of systems and current medications were reviewed on the patient intake questionnaire provid ed at today s visit to be found in the scanned documents in [facility]. They have also been ent ered into the [facility] database. PHYSICAL EXAM BP 160/90 | Pulse 86 | Ht 1.746 m (5' 8.75") | Wt 102.604 kg (226 lb 3.2 oz) | BMI 33.65 kg /(m^2) GENERAL: Healthy Appearing, No acute distress RESPIRATORY: Breathing without difficulty CARDIOVASCULAR: No pedal edema ABDOMEN: Well-healed low transverse incision, Well healed supraumbilical midline incision Well-healed laparoscopic incisions NEUROLOGIC GAIT: Normal SACRAL SENSATION: Grossly Intact LEFT BULBOCAVERNOSUS REFLEX: absent RIGHT BULBOCAVERNOSUS REFLEX: absent ORIENTATION: Oriented to time, place, and person Clear historian AFFECT: Normal GENERAL PELVIC EXAM EXTERNAL GENITALIA: Atrophic, anterior fusion of labia minora, URETHRA: Supine leak with cough Supine leak with valsalva BLADDER: Non tender to palpation RESTING QTIP (DEGREES): 0 STRAINING QTIP (DEGREES): 0 VAGINA Supple narrowed diameter ANTERIOR VAGINAL RUGAE Diminished POSTERIOR VAGINAL RUGAE Diminished CERVIX Surgically absent ANUS & PERINEUM: Normal Appearance SUPINE PELVIC ORGAN PROLAPSE QUANTIFICATION (POPQ) TEST Aa: -2 Ba: -2 C: -9 gh: 2 pb: 3 tvl: 10 Ap: -3 Bp: -3 Anterior Vaginal Wall Rugae Diminished Posterior Vaginal Wall Rugae Diminished The above prolapse grid can be interpreted as the following: While lying supine, her genit al hiatus (gh) is 2 cm wide and her perineal body (pb) is 3 cm during valsalva. Her anterior vaginal wall (Ba) descends -2 cm from the introitus (negative numbers inside the introitus , positive numbers outside), her posterior vaginal wall (Bp) descends -3 cm from the introit us. Her cervix (c) or vaginal cuff (if posthysterectomy) descends -9 cm from the introitus. PELVIC FLOOR MUSCLE TESTS The levator muscles were also assessed. By palpating the levator ani muscles transvaginall y while contracted, the following was noted: TEST: PELVIC FLOOR COORDINATION: Performs Correctly Symmetric TEST: PELVIC FLOOR DISPLACEMENT ABILITY: 4 (Min = 1; Max = 4) TEST: PELVIC FLOOR PRESSURE CREATION: 4 (Min = 1; Max = 4) TOTAL PELVIC FLOOR STRENGTH/ABILITY SCORE: 12 (Min = 3; Max = 12) TEST: RIGHT PELVIC FLOOR MUSCLE TENDERNESS?: Absent TEST: LEFT PELVIC FLOOR MUSCLE TENDERNESS?: Absent PROCEDURE: multichannel urodynamic testing: For full detail of study including tracings please see scanned report in Epic In summary: MCFP 368cc with no DO; MUCP 10 cm H2O and VLPP 80cm H2O at 150cc capacity; roselyn l void ASSESSMENT SYMPTOMS DISCUSSED Leakage without Provocation Continuous Wetness DATA/ LAB TESTS REVIEWED/ORDERED Previous Records Reviewed & Scanned POPQ Urethral Mobility Uroflow Urethral Pressure Profile Voiding Study DIAGNOSES Intrinsic Sphincter Deficiency Ms Ramirez is a with severe stress urinary incontinence without urge. She has failed 2 urethral sling procedures and one coaptite urethral bulking procedure. Urodynamics today reveal severe intrinsic sphincter deficiency with low urethral closure pr essure (10-11) and severe leakage with valsalva and cough. Q-tip test was negative with no u rethral mobility observed. No evidence of detrusor overactivity (max fill 368ml) She is aware that there are no additional options to resolve her urinary leakage given her ISD and fixed urethra. Typically this is addressed with transurethral injections. However, since she had worsening of her leakage after revision of her retropubic sling, we discussed at length that a revision and replacement of her TVT may improve her symptoms to the level they were at prior to her recent revision with a transobturator approach especially given re cent medical literature suggesting that the retropubic approach has better efficacy. Also di scussed the risk of post op urinary retention. RECOMMENDATIONS TREATMENT OPTIONS CONSIDERED: Surgery discussed- Proceed with TVT replacement and likely repeat coaptite injection in the future. Will restart vaginal estrogen (eRx sent). Plan for surgery October 26 with preop October 25. TVT [id number] Patient seen and discussed with Dr. Rios. Christiana Cullen RN - 10/03/2010 11:26 AM PDTUrine dipstick ordered and pt voided 295 mL of urine. Pt prepped with betadine. 14 belarusian straight cath through pts external urethra for 15 mL of clear yell ow urine (PVR). T-DOC air charged catheters placed in urethra and vagina. Verbal orders per Dr. Ernandez, read back performed. documented in this enco unter Plan of Treatment Not on filedocumented as of this encounter Procedures + +--------+ + + + | Procedure Name | Priori | Date/Time | Associated Diagnosis | Comments | | | ty | | | | + +--------+ + + + | [place] CYSTOMETROGRAM | Routin | 11/01/2010 | Intrinsic | | | W/TEMPERATURE REGULATOR PYROMETER&UP | e | 10:19 PM | sphincter deficiency | | | | | PDT | (ISD) Urinary | | | | | | stress incontinence | | + +--------+ + + + | [place] INTRAABDOMINAL | Routin | 11/01/2010 | Intrinsic | | | VOIDING PRESSURE | e | 10:19 PM | sphincter deficiency | | | STUDY,AP,GLOBAL | | PDT | (ISD) Urinary | | | | | | stress incontinence | | + +--------+ + + + | OH | Routin | 11/01/2010 | Intrinsic | | | UROFLOWMETRY,COMPLEX | e | 10:19 PM | sphincter deficiency | | | ,GLOBAL | | PDT | (ISD) Urinary | | | | | | stress incontinence | | + +--------+ + + + | [place] CYSTOMETROGRAM, | Routin | 11/01/2010 | Intrinsic | | | COMPLEX, GLOBAL | e | 10:19 PM | sphincter deficiency | | | | | PDT | (ISD) Urinary | | | | | | stress incontinence | | + +--------+ + + + | [place] INTRAABDOMINAL | Routin | 11/01/2010 | Intrinsic | | | PRESSURE TEST | e | 10:19 PM | sphincter deficiency | | | | | PDT | (ISD) Urinary | | | | | | stress incontinence | | + +--------+ + + + | UA 10 DIP POC | Routin | 10/03/2010 | Urinary | Results for this | | | e | 12:01 PM | incontinence | procedure are in the | | | | PDT | | results section. | + +--------+ + + + | OH NURSE 2 | Routin | 10/03/2010 | Urinary | | | INSERT,NON-INDWELLIN | e | 11:25 AM | incontinence | | | G BLADDER CATHETER | | PDT | | | + +--------+ + + + | LAB REPORTS | | 10/03/2010 | | Results for this | | | | 12:00 AM | | procedure are in the | | | | PDT | | results section. | + +--------+ + + + documented in this encounter Results UA DIPSTICK ONLY W/O MICRO, POC (10/03/2010 12:01 PM PDT) + + + + + + | Component | Value | Ref Range | Performed | Pathologist | | | | | At | Signature | + + + + + + | COLOR (UA | yellow | | [facility] - | | | DIP), POC | | | [facility] | | | | | | [facility] | | | | | | [facility] C[facility] | | | | | | TESTS | | + + + + + + | APPEARANCE | clear | | [facility] - | | | (UA DIP), | | | [facility] | | | POC | | | [facility] | | | | | | OF CARE | | | | | | TESTS | | + + + + + + | LEUKOCYTES | negative | Negative | [facility] - | | | (UA DIP), | | | [facility] | | | POC | | | [facility] | | | | | | OF CARE | | | | | | TESTS | | + + + + + + | NITRITES | negative | Negative | [facility] - | | | (UA DIP), | | | [facility] | | | POC | | | [facility] | | | | | | OF CARE | | | | | | TESTS | | + + + + + + | UROBILINOGE | 0.2 | 0.2 JERICHO | [facility] - | | | N (UA DIP), | | UNITS | [facility] | | | POC | | | [facility] | | | | | | OF CARE | | | | | | TESTS | | + + + + + + | PROTEIN (UA | negative | Negative to | [facility] - | | | DIP), POC | | Trace mg/dL | [facility] | | | | | | [facility] | | | | | | OF CARE | | | | | | TESTS | | + + + + + + | PH (UA | 5.0 | 5 - 8 | [facility] - | | | DIP), POC | | | [facility] | | | | | | [facility] | | | | | | OF CARE | | | | | | TESTS | | + + + + + + | BLOOD (UA | negative | Negative | [facility] - | | | DIP), POC | | | [facility] | | | | | | [facility] | | | | | | OF CARE | | | | | | TESTS | | + + + + + + | SPECIFIC | 1.010 | 1.005 - 1.03 | [facility] - | | | GRAVITY (UA | | | [facility] | | | DIP), POC | | | [facility] | | | | | | OF CARE | | | | | | TESTS | | + + + + + + | KETONES (UA | negative | Negative mg/dL | [facility] - | | | DIP), POC | | | [facility] | | | | | | [facility] | | | | | | OF CARE | | | | | | TESTS | | + + + + + + | BILIRUBIN | negative | Negative | [facility] - | | | (UA DIP), | | | [facility] | | | POC | | | [facility] | | | | | | OF CARE | | | | | | TESTS | | + + + + + + | GLUCOSE (UA | negative | Negative to | [facility] - | | | DIP), POC | | Trace mg/dL | [facility] | | | | | | [facility] | | | | | | OF CARE | | | | | | TESTS | | + + + + + + + + | Specimen | + + | Urine | + + + + + + + | Performing | Address | City/State/Zipcode | Phone Number | | Organization | | | | + + + + + | [facility] | [address] | [place], [place] | | | [facility] | [address] | [address] | | | TESTS | | | | + + + + + LAB REPORTS (10/03/2010 12:00 AM PDT) + + + | Narrative | Performed At | + + + | | | + + + + + | Procedure Note | + + | Derek Sherman - 10/03/2010 12:00 AM PDT | | | + + documented in this encounter Visit Diagnoses + + | Diagnosis | + + | Intrinsic sphincter deficiency (ISD) - Primary Intrinsic (urethral) sphincter | | deficiency (ISD) | + + | Urinary incontinence Unspecified urinary incontinence | + + | Urinary stress incontinence Female stress incontinence | + + documented in this encounter
--- OUTSIDE RECORDS SUMMARY | ~2019-05-06 | XMS | Encounter Summary ---
Demographics + + + | Address | [address] | | | [place] [address] | + + + | Home Phone | | + + + | Preferred Language | Unknown | + + + | Marital Status | | + + + | Cheondoism Affiliation | Unknown | + + + | Race | Unknown | + + + | Ethnic Group | Unknown | + + + Author + + + | Author | [facility] | | | and [place] | + + + | Organization | [facility] | | | and [place] | + + + | Address | Unknown | + + + | Phone | Unavailable | + + + Support + + + + + | Name | Relationship | Address | Phone | + + + + + | Nella Haqeu | ECON | Unknown | | + + + + + | Matthew Ramirez | ECON | [address] | | | | | [place] | | | | | [address] | | + + + + + Care Team Providers + +------+ + | Care Brim Pouncing Machine Operator Name | Role | Phone [...] | | | | | | [place] REPAIR | | | | | | | OF | | | | | | | MAINON | | | | | | | E | | | | | | | CORRECTION | | | | | | | [facility] | | | | | | | [...] Event | HOSPITAL OR INTRA OP | ROUNDING MACHINE OPERATOR [address] | | | | | [address] | [place] [address] | | | | | [place], [place] | [phone] | | | | | [address] | | | | | | [phone] | | | +--------+ + + + + Anesthesia Record + + + + + | Procedure Name | Responsible | Anesthesia Start | Anesthesia Stop Time | | | Anesthesiologist | Time | | + + + + + | CORRECTION | Mayank Honeycutt, | 07/04/17 0912 | 07/04/17 1022 | | [facility] 2, 3, 4 | ROUNDING MACHINE OPERATOR | | | | (Left Foot) | [...]
--- OUTSIDE RECORDS SUMMARY | ~2019-05-06 | XMS | Encounter Summary ---
Demographics + + + | Address | [address] | | | [place] [address] | + + + | Home Phone | | + + + | Preferred Language | Unknown | + + + | Marital Status | | + + + | Orthodox Affiliation | Unknown | + + + | Race | Unknown | + + + | Ethnic Group | Unknown | + + + Author + + + | Author | [facility] | | | and [place] | + + + | Organization | [facility] | [...] + | Matthew Ramirez | CHRIS | [address] | | | | | [place] | | | | | [address] | | + + + + + Care Team Providers + +------+ + | Care Veneer Jointer Name | Role | Phone | + +------+ + PCP | Unavailable | + +------+ + Encounter Details +--------+ + + + + | Date | Type | Department | Care Team | Description | +--------+ + + + + | 07/24/ | Hospital | [facility] | | | | 1999 | Encounter | MED CTR XRAY [address] | | | | | | [address] | | | | | | [place] [address] | | | | | | [phone] | | | +--------+ + + + [...]
--- OUTSIDE RECORDS SUMMARY | ~2019-05-06 | XMS | Encounter Summary ---
Demographics + + + | Address | [address] | | | [place] [address] | + + + | Home Phone [...] | Author | [facility] | | | and [place] | + + + | Organization | [facility] | | | and [place] [...] + | Matthew Ramirez | CHRIS | [address] | | | | | [place] | | | | | [address] | | + + + + + Care Team Providers + +------+ + | Care Locksmith Apprentice Name | Role | Phone | + +------+ + PCP | Unavailable | + +------+ + Encounter Details +--------+ + + + + | Date | Type | Department | Care Team | Description | +--------+ + + + + | 07/15/ | Hospital | [facility] | | | | 2001 | Encounter | MED CTR GENERIC OP | | | | | | CONV DEPT [address] | | | | | | [place], | | | | | | [place] [address] | | | | | | [phone] | | | +--------+ + + + [...]
--- OUTSIDE RECORDS SUMMARY | ~2019-05-06 | XMS | Encounter Summary ---
Demographics + + + | Address | [address] | | | [place] [address] | + + + | Home Phone | | + + + | Preferred Language | Unknown | + + + | Marital Status | | + + + | Mosque Affiliation | Unknown | + + + | Race | Unknown | + + + | Ethnic Group | Unknown | + + + Author + + + | Author | [facility] | | | and [place] | + + + | Organization | [facility] | | [...] + | Matthew Ramirez | ECON | [address] | | | | | [place] | | | | | [address] | | + + + + + Care Team Providers + +------+ + | Care Backup Sawyer Name | Role | Phone | [...] | | | [place], [place] | [place] [address] | | | | | [address] | [phone] | | | | | [phone] | | | +--------+---------+ + + + [...] + documented in this encounter Discharge Instructions Jsoe Vaughn DPM - 02/13/2018Jose puga documented in [...]
--- OUTSIDE RECORDS SUMMARY | ~2019-05-06 | XMS | Encounter Summary ---
Demographics + + + | Address | [address] | | | [place] [address] | + + + | Home Phone | | + + + | Preferred Language | Unknown | + + + | Marital Status | | + + + | Holiness Affiliation | NRP | + + + | Race | White | + + + | Ethnic Group | Not or | + + + Author + + + | Author | [facility] | + + + | Organization | [facility] | + + + | Address | Unknown | + + + | Phone | Unavailable | + + + Support + + + + + | Name | Relationship | Address | Phone | + + + + + | Matthew Ramirez | CHRIS | [address] | | | | | [place] | | | | | [address] | | + + + + + | Nella Lowery ECON | Unknown | | + + + + + Care Team Providers + +------+ + | Care Dock Supervisor Name | Role | Phone | [...] | | | 2018 | Requisition | [address] | [address] | | | | | [address] [place], [place] | [place], [place] | | | | | [address] | [address] | | | | | | [phone] | | | | | | | [...] Type | Priori | Associated Diagnoses | Date/Time | | | | ty | | | + +------+--------+ + + | [facility] PROCESS ONLY | Lab | Routin | Encounter for | 02/24/2019 10:44 AM | | | | e | other screening for | PDT | | | | | genetic and | | | | | | chromosomal | | | | | | anomalies | | + +------+--------+ + + documented as of this encounter Visit Diagnoses + + | Diagnosis | + + | Encounter for other screening for genetic and chromosomal anomalies | + + documented in this encounter"
--- OUTSIDE RECORDS SUMMARY | ~2019-05-06 | XMS | Encounter Summary ---
Demographics + + + | Address | [address] | | | [place] [address] | + + + | Home Phone | | + + + | Preferred Language | Unknown | + + + | Marital Status | | + + + | Orthodoxy Affiliation | Unknown | + + + | Race | Unknown | + + + | Ethnic Group | Unknown | + + + Author + + + | Author | [facility] | | | and Nenoana | + + + | Organization | [facility] | | | and Nenoana [...] + | Matthew Ramirez | ECON | [address] | | | | | [place] | | | | | [address] | | + + + + + Care Team Providers + +------+ + | Care Stringed Instrument Repairer Name | Role | Phone | + [...] | +--------+ + + + + | 01/24/ | Telephone | [facility] | Matthew Shukla MD | Results, Pathology | | 2019 | | GASTROENTEROLOGY | [address] [facility] | | | | | [address] [facility] | [place], [place] | | | | | [address] [place], [place] | [address] | | | | | [address] | [phone] | | | | | [phone] | | | +--------+ + + + [...]
--- OUTSIDE RECORDS SUMMARY | ~2019-05-06 | XMS | Encounter Summary ---
Demographics + + + | Address | [address] | | | [place] [address] | + + + | Home Phone | | + + + | Preferred Language | Unknown | + + + | Marital Status | | + + + | Anabaptism Affiliation | Unknown | + + + | Race | Unknown | + + + | Ethnic Group | Unknown | + + + Author + + + | Author | [facility] | | | and Nenoana | + + + | Organization | [facility] | | | and Nenoana [...] + | Matthew Ramirez | ECON | [address] | | | | | [place] | | | | | [address] | | + + + + + Care Team Providers + +------+ + | Care Business Solutions Consultant Name | Role | Phone | [...] + + | 12/18/ | Telephone | [facility] | Matthew Shukla MD | Sore Throat | | 2019 | | GASTROENTEROLOGY | [address] [facility] | | | | | [address] [facility] | [place], [place] | | | | | [address] [place], [place] | [address] | | | | | [address] | [phone] | | | | | [phone] | | | +--------+ + + + [...]
--- OUTSIDE RECORDS SUMMARY | ~2019-05-06 | XMS | Encounter Summary ---
Demographics + + + | Address | [address] | | | [place] [address] | + + + | Home Phone | | + + + | Preferred Language | Unknown | + + + | Marital Status | | + + + | Sabianist Affiliation | Unknown | + + + | Race | Unknown | + + + | Ethnic Group | Unknown | + + + Author + + + | Author | [facility] | | | and Nenoana | + + + | Organization | [facility] | | | and [...] + | Matthew Ramirez | ECON | [address] | | | | | [place] | | | | | [address] | | + + + + + Care Team Providers + +------+ + | Care Mapping Technician Name | Role | Phone | [...] | HOSPITAL [facility]TRA OP | D, PRODUCTION TESTER [address] | | | | | [address] | [place], [place] | | | | | [place], [place] | [address] | | | | | [address] | | | | | | [phone] | | | +--------+ + + + + Anesthesia Record + + + + + | Procedure Name | Responsible | Anesthesia Start | Anesthesia Stop Time | | | Anesthesiologist | Time | | + + + + + | Correction Josué | Luz Farias, | 03/06/17 1119 | 10/26/17 1228 | | Toes 2nd , 3rd, and | PRODUCTION TESTER | | | | 4th Toes (Right [...] | 2 | | [facility] | | | 7 | [...] | Jacklyn Dominguez | | IV | tpgp-[id number]-wrpjyk catheter system; | | VIRI Barillas | [...] | | | | | CONTINUOUS, Starting [facility] 03/06/17 | | AM PDT | | [...]
--- OUTSIDE RECORDS SUMMARY | ~2019-05-06 | XMS | Encounter Summary ---
Demographics + + + | Address | [address] | | | [place] [address] | + + + | Home Phone | | + + + | Preferred Language | Unknown | + + + | Marital Status | | + + + | Muslim Affiliation | NRP | + + + [...] + | Matthew Ramirez | CHRIS | [address] | | | | | [place] | | | | | [address] | | + + + + + | Nella Haque | ECON | Unknown | | + + + + + Care Team Providers + +------+ + | Care Fiscal Analyst Name | Role | Phone | [...] | | | | ma (HCC) | [place], | | | | | | Procedures | [place] | | | | | [place] | [address] | | | | | | CONTRAST | Phone: | | | | | | | [phone] | | | | | | | Fax: | | | | | | | [phone] | | + +--------+ + + + [...] | | | | adenocarcino | [address] | | | | | | ma (HCC) | [place], | | | | | | Procedures | [place] | | | | | | [place] | [address] | | | | | | CONTRAST | Phone: | | | | | | | [phone] | | | | | | | Fax: | | | | | | | [phone] | | + +--------+ + + + + Encounter Details +--------+ + + + + | Date | Type | Department | Care Team | Description | +--------+ + + + + | 02/02/ | Hospital | Radiology/Imaging | Cristel Galicia MD | | | 2019 | Encounter | Lab at [facility] [address] | [address] | | | | | Ron Villalobos Mailcode: | [place], [place] | | | | | [address] | [address] | | | | | Health and Healing, | [phone] | | | | | [address] | | | | | | Floor [place], [place] | | | | | | [address] | | | | | | [phone] | | | +--------+ + + + [...] + + +---------+ + + | BLACK MIKELOSH ORAL | Take by mouth. | | [...] mouth | 14 Tab | 0 | 06//20 | | | (CIPRO) 500 mg Oral [...] nostril | | | | | | [place] | once daily. | | | | [...]
--- OUTSIDE RECORDS SUMMARY | ~2019-05-06 | XMS | Encounter Summary ---
Demographics + + + | Address | [address] | | | [place] [address] | + + + | Home Phone [...] | Author | [facility] | | | and Nenoana | + + + | Organization | [facility] | | [...] + | Matthew Ramirez | ECON | [address] | | | | | [place] | | | | | [address] | | + + + + + Care Team Providers + +------+ + | Care Plating Tank Operator Name | Role | Phone | [...] [address] | [address] [place], | | | | | [facility], [place] | [place] [address] | | | | | [address] | [phone] | | | | | [phone] | | | +--------+ + + + [...] Care Everywhere.Foot Surgery: Maurice pace Fifth Toe (Norwegian)Foot Surgery: Flexible and Rigid Hammertoes (Norwegian)Mallet, Hammer , and Claw Toes, Treating (Norwegian)Mallet, Hammer, and Claw Toes, What Are (Norwegian)document ed in this encounter Medications at Time [...]
--- OUTSIDE RECORDS SUMMARY | ~2019-05-06 | XMS | Encounter Summary ---
Demographics + + + | Address | [address] | | | [place] [address] | + + + | Home Phone [...] | Author | [facility] | | | and Nenoana | + + + | Organization | [facility] | | | and Nenoana | [...] + | Matthew Ramirez | ECON | [address] | | | | | [place] | | | | | [address] | | + + + + + Care Team Providers + +------+ + | Care Informatics Physician Liaison Name | Role | Phone | + [...] | | [address] | [place] [address] | | | | | [address] | | | | | | [phone] | | | +--------+ + + + [...] | + +-------+ + + + | ESR | 14 | 0 - 20 mm/hr | | | + +-------+ + + [...] | + +---------+ + + External Lab: [facility] (08/04/2018) + +-------+ + + + | [...] | eGFR, | 53 (A) | 60 99,999 | EXTERNAL | | | External [...]
--- OUTSIDE RECORDS SUMMARY | ~2019-05-06 | XMS | Encounter Summary ---
Demographics + + + | Address | [address] | | | [place] [address] | + + + | Home Phone [...] + | Author | [facility] | | | and Nenoana | + + + | Organization | [facility] | | | [...] + | Matthew Ramirez | ECON | [address] | | | | | [place] | | | | | [address] | | + + + + + Care Team Providers + +------+ + | Care Lamp Assembler Name | Role | Phone | + [...] Christie FOLEY | | | | | [phone] | [place] [address] | | +--------+ + + + + [...]
--- OUTSIDE RECORDS SUMMARY | ~2019-05-06 | XMS | Encounter Summary ---
Demographics + + + | Address | [address] | | | [place] [address] | + + + | Home Phone [...] Author | [facility] | | | and Nenoana | + + + | Organization | [facility] | [...] + | Matthew Ramirez | ECON | [address] | | | | | [place] | | | | | [address] | | + + + + + Care Team Providers + +------+ + | Care Watch Train Inspector Name | Role | Phone | [...] + + | 12/18/ | Telephone | [facility] | Matthew Shukla MD | Sore Throat | | 2019 | | GASTROENTEROLOGY | [address] [facility] | | | | | [address] [facility] | [place], [place] | | | | | [address] [place], [place] | [address] | | | | | [address] | [phone] | | | | | [phone] | | | +--------+ + + + [...]
--- OUTSIDE RECORDS SUMMARY | ~2019-05-06 | XMS | Encounter Summary ---
Demographics + + + | Address | [address] | | | [place] [address] | + + + | Home Phone [...] + | Matthew Ramirez | CHRIS | [address] | | | | | [place] | | | | | [address] | | + + + + + | Nella Haque | ECON | Unknown | | + + + + + Care Team Providers + +------+ + | Care Top And Trim Worker Name | Role | Phone | [...] | | sphincter | MD Gillian | [address] | | | | | deficiency | [address] | [id number] | | | | | (ISD) | [facility] | [facility] | | | | | Urinary | Rd | [place], | | | | | stress | [place], [place] | [place] [address] | | | | | incontinence | [address] | Phone: | | | | | Procedures | Phone: | [phone] | | | | | REQUEST TO | [phone] | Fax: | | | | | SURGERY | Fax: | [phone] | | | | | CLINICAL APPEALS SPECIALIST | [phone] | | | | | | CT | | | | | | | CYST[address]RETHRO | | | | | | | [address] | | | | | | | SLING OPER | | | | | | | STRES | | | | | | | INCONTINENCE | | | +--------+--------+ + + + + Encounter Details +--------+---------+ + + + | Date | Type | Department | Care Team | Description | +--------+---------+ + + + | 11/29/ | Office | [facility] | Avis Rios | Postop check | | 2010 | Visit | [facility] | MD Gillian [address] | (Primary Dx) | | | | [address] | | | | | [address] | [place], [place] | | | | | [id number] [facility] | [address] | | | | | [facility], | [phone] | | | | | [place] [address] | | | | | | [phone] | | | +--------+---------+ + + + [...]
--- OUTSIDE RECORDS SUMMARY | ~2019-05-06 | XMS | Encounter Summary ---
Demographics + + + | Address | [address] | | | [place] [address] | + + + | Home Phone | | + + + | Preferred Language | Unknown | + + + | Marital Status | | + + + | Evangelical Affiliation | NRP | + + + | Race | White | + + + | Ethnic Group | Not or | + + + Author + + + | Author | [facility] | + + + | Organization | [facility] | + + + | Address | Unknown | + + + | Phone | Unavailable | + + + Support + + + + + | Name | Relationship | Address | Phone | + + + + + | Matthew Ramirez | CHRIS | [address] | | | | | [place] | | | | | [address] | | + + + + + | Nella Haque | ECON | Unknown | | + + + + + Care Team Providers + +------+ + | Care Spud Grader Name | Role | Phone | + +------+ + | Long Copeland MD | PCP | | + +------+ + Reason for Visit + + + | Reason | Comments | + + + | Preop | | + + + | Stress urinary | | | incontinence | | + + + Consult to [place] (Routine) +--------+--------+ + + + + | Status | Reason | Specialty | Diagnoses / | Referred By | Referred To | | | | | Procedures | Contact | Contact | +--------+--------+ + + + + | Closed | | Obstetrics & | Diagnoses | Gabriel, | Blake Urogyn | | | | Gynecology | Intrinsic | Avis | [address] | | | | | sphincter | MD Gillian | [address] | | | | | deficiency | [address] | [id number] | | | | | (ISD) | [facility] | [facility] | | | | | Urinary | Rd | [place], | | | | | stress | [place], [place] | [place] [address] | | | | | incontinence | [address] | Phone: | | | | | Procedures | Phone: | [phone] | | | | | REQUEST TO | [phone] | Fax: | | | | | SURGERY | Fax: | [phone] | | | | | [employer] | [phone] | | | | | | [place] | | | | | | | CYSTOU[place] | | | | | | | [place] | | | | | | | SLING OPER | | | | | | | STRES | | | | | | | INCONTINENCE | | | +--------+--------+ + + + + Encounter Details +--------+---------+ + + + | Date | Type | Department | Care Team | Description | +--------+---------+ + + + | 10/25/ | Office | [facility] | Avis Rios | Pre-op evaluation | | 2010 | Visit | [facility] | MD Gillian [address] | (Primary Dx); | | | | [address] | [address] | Urinary incontinence | | | | [address] | [place], [place] | | | | | /[id number] [facility] | [address] | | | | | [facility] | [phone] | | | | | [place] [address] | | | | | | [phone] | | | +--------+---------+ + + + [...] + + + | Blood Pressure | 140/90 | 10/25/2010 10:39 AM | | | | | PDT | | + + + + + | Pulse | 86 | 10/25/2010 10:39 AM | | | | | PDT | | + + + + + | Temperature | - | - | | + + + + + | Respiratory Rate | - | - | | + + + + + | Oxygen Saturation | 99% | 10/25/2010 10:39 AM | | | | | PDT | | + + + + + | Inhaled Oxygen | - | - | | | Concentration | | | | + + + + + | Weight | 104.4 kg (230 lb 1.6 | 10/25/2010 10:39 AM | | | | oz) | PDT | | + + + + + | Height | 174.6 cm (5' 8.74") | 10/25/2010 10:39 AM | | | | | PDT | | + + + + + | Body Mass Index | 34.24 | 10/25/2010 10:39 AM | | | | | PDT | | + + + + + documented in this encounter Patient Instructions Patient Instructions Jackie Sprague MD - 10/25/2010 10:59 AM PDTDirections to [facility] in [facility] Exit the Lobby of the [facility] and turn right to take elevator 2 to the 9th floor of the [facility]. Follow signs directing you to the [place] [facility]. The [facility] is located on the 4th floor of the [facility] and [facility] ([facility]) just next to the exit for the tram. To return to the [facility] or to any of the facilities located on [facility], you will need a tram pass. These are available at no charge to patients with scheduled appointme nts and to those people accompanying them. For a tram pass, ask the paper supervisor in the lob by of the [facility] or the person who checks you in for your [facility] appointment. Electronically minnie d by Jackie Sprague MD at 10/25/2010 10:59 AM PDT documented in this encounter Progress Notes Avis Rios MD - 10/25/2010 2:28 PM PDTI was present with Dr. Sprague during the h istory, exam and procedures performed. I discussed the case with Dr. Sprague and agree with th e findings and plan as documented in her note. LShJackie taylor M D - 10/25/2010 9:00 AM PDT Pre-Procedure History & Physical Date of Admission: 10/26/2010 History: 69 y.o. here for pre-operative visit. She has many years of urinary incont inence. Since her last visit on 10/03 she has increased knee pain and is using a cane. She also had UTI symptoms (dysuria without fever, chills or back pain) and started Cipro on Sunday 10/22 a nd has had resolution of her symptoms. In 2005 she underwent a Lynx retropubic sling placement and a posterior repair with [...] post op UTI that was treated. Her surgical history is significant for a bladder procedure in 1970 where she had transvagi nal resection of utethral scar tissue and removal of some bladder [...] she had the procedures above for incontinence. Past Medical History Diagnosis Date Arthritis Cervical cancer 1996 surgically treated Depression cymbalta Fibromyalgia gabapentin Chronic constipation Diverticula of colon Hypothyroidism on replacement Cataracts, bilateral Past Surgical History Procedure Date Total abdominal hysterectomy 1973 age 33, cervical cancer, no chemo/radiation Tubal ligation 1975 Appendectomy 1950 Tonsillectomy and adenoidectomy 1947 Cholecystectomy, laparoscopic 1996 Knee arthroscopy 2001 Colectomy partial / total 2003 diverticulosis, removed 12 inch Bladder surgery 1970 removed urethral scar tissue and part of muscle of bladder for frequent UTIs Bladder suspension 2005 retropubic sling Colporrhaphy 2005 posterior repair, cadaveric graft Carpal tunnel release 2007 removed part of tendon and reconstructed joint for arthritis Finger trigger release 2008 left thumb Bladder suspension 07/2010 revision of midurethral sling, placement of TOT Cystoscopy 02/2010 coaptite injection Current outpatient prescriptions ordered prior to encounter Medication Sig Dispense Refill ascorbic acid SR (VITAMIN C) 1,000 mg Oral Tablet Take 1,000 mg by mouth two times thais y. Aspirin 81 mg Oral Tablet Take 81 mg by mouth once daily. BLACK COHOSH ORAL Take by mouth. CALCIUM CARBONATE/VITAMIN D3 (CALCIUM 600 + D OR) Take by mouth. cholecalciferol, Vitamin D3, 1,000 unit Oral Tablet Take 1,000 Units by mouth every sev en days. ciprofloxacin (CIPRO) 500 mg Oral Tablet Take 1 Tab by mouth every twelve hours. 14 Ta b 0 clobetasol 0.05 % Topical Cream Apply to affected area two times daily. Apply for up t o 2 weeks. cyanocobalamin (VITAMIN B-12) 1,000 mcg Oral Tablet Take 1,000 mcg by mouth once daily. doxepin 75 mg Oral Capsule Take 10 mg by mouth once daily at bedtime. DULoxetine (CYMBALTA) 60 mg Oral Capsule, Delayed Release(E.C.) Take 60 mg by mouth onc e daily. estradiol (ESTRACE) 0.01 % (0.1 mg/g) Vaginal Cream Place 1 g into the vagina twice wee kly (on Friday and ). 42.5 g 2 folic acid 800 mcg Oral Tablet Take 800 mcg by mouth once daily. gabapentin 300 mg Oral Capsule Take 300 mg by mouth three times daily. Zjstekmcfbc-Nhdylqrxj-Cei C-Mn (GLUCOSAMINE CHONDROITIN MAXSTR) 500-400 mg Oral Capsule Take by mouth. levothyroxine (LEVOTHROID) 112 mcg Oral Tablet Take 112 mcg by mouth once daily. lisinopril 20 mg Oral Tablet Take 20 mg by mouth once daily. nabumetone (RELAFEN) 750 mg Oral Tablet Take 750 mg by mouth two times daily. oxyCODONE-acetaminophen 5-325 mg Oral Tablet Take 1 Tab by mouth every four hours as ne eded. Not to exceed 12 tablets per any 24 hour period. simvastatin 40 mg Oral Tablet Take 40 mg by mouth once daily in the evening. triamcinolone 55 mcg Nasal Aerosol, [place] Instill 2 Sprays into each nostril once daily . triamcinolone acetonide 0.1 % Topical Cream Apply to affected area three times daily. Apply thin film to affected areas. Allergies Allergen Reactions Codeine Psychosis Sulfa (Sulfonamide Antibiotics) Swelling Family History Problem Relation Cancer Mother multiple myeloma Cancer Father multiple myeloma Cancer Sister breast Cancer Brother throat, neck Heart Disease Mother CHF History Social History Marital Status: Spouse Name: Matthew Ramirez Number of Children: 3 Occupational History [employer] Social History Main Topics Smoking status: Never Smoker Smokeless tobacco: Never Used Alcohol Use: Yes 0-3/day- wine Drug Use: No Sexually Active: No partner not able Social History Narrative Lives with partner in [place]- 34yrs. Son in [place]. 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 Now traveling [employer]. Review of Systems: Per HPI. All other systems negative PHYSICAL EXAM: BP 140/90 | Pulse 86 | Ht 1.746 m (5' 8.74") | Wt 104.373 kg (230 lb 1.6 oz) | SpO2 99% | B MO 34.24 kg/(m^2) GENERAL: Healthy Appearing, No acute distress Heart: Regular rate. No murmur, gallops, rubs. Lungs: Clear to auscultation bilaterally. ABDOMEN: Well-healed low transverse incision, Well healed [...] as the following: While lying supine, her genita l hiatus (gh) is 2 cm wide and her perineal body (pb) is 3 cm during valsalva. Her anterior vaginal wall (Ba) descends -2 cm from the introitus (negative numbers inside the introitus, positive numbers outside), her posterior vaginal wall (Bp) descends -3 cm from the introitus . Her cervix (c) or vaginal cuff (if posthysterectomy) descends -9 cm from the introitus. PELVIC FLOOR MUSCLE TESTS The levator muscles were also assessed. By palpating the levator ani muscles transvaginally while contracted, the following was noted: TEST: PELVIC FLOOR COORDINATION: Performs Correctly Symmetric TEST: PELVIC FLOOR DISPLACEMENT ABILITY: 4 (Min = 1; Max = 4) TEST: PELVIC FLOOR PRESSURE CREATION: 4 (Min = 1; Max = 4) TOTAL PELVIC FLOOR STRENGTH/ABILITY SCORE: 12 (Min = 3; Max = 12) TEST: RIGHT PELVIC FLOOR MUSCLE TENDERNESS?: Absent TEST: LEFT PELVIC FLOOR MUSCLE TENDERNESS?: Absent Urodynamics 10/03: severe intrinsic sphincter deficiency with low urethral closure pressure (10-11) and severe leakage with valsalva and cough. Q-tip test was negative with no urethral mobility observed. No evidence of detrusor overactivity (max fill 368ml) PROVISIONAL DIAGNOSIS: Stress Urinary Incontinence and Intrinsic Sphincter Deficiency PLANNED COURSE OF ACTION: TVT and cystoscopy Stop ASA, ibuprofen. Will discontinue cipro post op tomorrow. PARQ: A PARQ session was held, additional questions with discussion were completed. Informe d consent was signed and sent to scanning. Patient is aware that goal is for improvement ba ck to where she was with the Lynx sling not for cure. Patient seen and discussed with Dr. Rios. documented in t his encounter Plan of [...] view image for the detailed interpretation from [employer] results. | CARDIOLOGY | + + + + + + + + | Performing | Address | City/State/Zipcode | Phone Number | | Organization | | | | + + + + + | [facility] | [address] | [place], [place] | | | CARDIOLOGY | [address] | [address] | | + + + + + [...] + | [facility] | [address] | [place] [address] | | | PATHOLOGY | [address] [...] | + + + + + | [facility] | [address] | [place] [address] | | | PATHOLOGY | [address] | | | + + + + + documented in this encounter Visit Diagnoses + + | Diagnosis | + + | Pre-op evaluation - Primary Preoperative examination, unspecified | + + | Urinary incontinence Unspecified urinary incontinence | + + documented in this encounter
--- OUTSIDE RECORDS SUMMARY | ~2019-05-06 | XMS | Encounter Summary ---
Demographics + + + | Address | [address] | | | [place] [address] | + + + | Home Phone [...] Author | [facility] | | | and Nenoana | + + + | Organization | [facility] [...] + | Matthew Gomez | ECON | [address] | | | | | [place] | | | | | [address] | | + + + + + Care Team Providers + +------+ + | Care Sterile Process Tech Name | Role | Phone | [...] | | | | [K31.9] | | [address] Phone: | | | | | Procedures | | [phone] | | | | | [place] | | Fax: | | | | | ESOPHAGOGAST | | [phone] | | | | | RODUODENOSCO | | | | | | | PY TRANSORAL | | | | | | | DIAGNOSTIC | | | | | | | [place] | | | | | [...] | | | [address] | [address] | | | | | [address] | | | | | | [phone] | | | +--------+---------+ + + + [...] see. D/C to home. Electronically signed by: oRsie Burgos RN 01/13/2019 13:35 documented in this [...] | [facility] | | ASHLY GOMEZ | [place] | | : 1940 AGE: 78 years SEX: Female | [facility] | | | LABORATORY | | Acct: [id number] Location: | [facility] | | [facility]; [facility] MEDICAL PROCEDURE UNIT [place]; [facility] | | | MEDICAL PROCEDURE UNIT [place] | | | Case #: [id number] Ordering: | | | SUKUMAR STEVENSON MD Client: [facility] | | | [facility] Copy To: | | | Printed: [...] fragments. | | | Mild inactive chronic gastritis.[facility]/SK 01/14/19 01:36 pmVerified | | | by: ANNABELLE FULLER MDVerify Date: 01/20/2019 09:40 [facility] | | | [facility] [address] | | | SURGICAL PATHOLOGY FINAL REPORTCollected: [...] controls stain appropriately.As a part of our design quality engineer | | | policy, this [...] determined by [facility]. This test is used for clinical | | | purposes. It should not be regarded as investigational or for | | | research. [facility] is certified under the Clinical | | | Laboratory Improvement Amendments of 1988 (CLIA) as qualified to | | | perform high complexity clinical laboratory testing. | | + + + + + + + + | Performing | Address | City/State/[facility] Centercode | Phone Number | | Organization | | | | + + + + + | [facility] SCALES | [address] [place] [address]. | [place] [address] | | | [facility] | | | | | LABORATORY EZE | | | | + + + + + EUS Upper (01/13/2019 11:39 AM PDT) + + | Specimen | + + | | + + + + + | Narrative | Performed At | + + + | [facility] | [place] | | [facility] | PROVATION | | CenterGI | | | Patient Name: Ashly Gomez Procedure | | | Date: 01/13/2019 11:39 AMMRN: [id number] | | | of : 1940 | [...] Dr. SanReferring: | | | MATTHEW SAN, [facility] HOSPITALedicines: Monitored | | | Anesthesia CareComplications: No [...] AMNumber | | | of Addenda: 0 [facility] - | | | Endoscopy Services | | | | | |SUKUMAR STEVENSON MD | | |01/13/2019 1:07:25 PM | | |This report has been signed electronically. | | | | | |Note Initiated On: 01/13/2019 11:39 AM | | |Number of Addenda: 0 | | | | | | [facility] - Endoscopy Services | | [...] | TRACEMASTER | | Duration:172 msP Horizontal [place]:28 degP Front [place]:60 degQ Onset:512 | | | msQRSD Interval:136 msQT Interval:448 msQTcB:477 msQTcF:467 msQRS | | | Horizontal [place]:150 degQRS [place]:-35 degI-40 Horizontal [place]:34 degI-40 | | | Front [place]:74 degT-40 Horizontal [place]:151 degT-40 Front [place]:-77 degT | | | Horizontal [place]:8 degT Wave [place]:51 degS-T Horizontal [place]:21 degS-T | | | Front [place]:83 degSeverity:- ABNORMAL ECG -INTERP:SINUS | | | RHYTHMINTERP:VENTRICULAR PREMATURE COMPLEXINTERP:RBBB AND | | | LAFBINTERP:LEFT VENTRICULAR HYPERTROPHYElectronically signed by: | | | ANDREAS MAXWELL 01-18-2019 07:24:33 | | |QTcF:467 ms | | |QRS Horizontal [place]:150 deg | | |QRS [place]:-35 deg | | |I-40 Horizontal [place]:34 deg | | |I-40 Front [place]:74 deg | | |T-40 Horizontal [place]:151 deg | | |T-40 Front [place]:-77 deg | | |T Horizontal [place]:8 deg | | |T Wave [place]:51 deg | | |S-T Horizontal [place]:21 deg | | |S-T Front [place]:83 deg | | |Severity:- ABNORMAL ECG - [...] | + + + + + | BIBI TRACE | [address] | [place] [address] | [phone] | + + + + + POC Glucose (01/13/2019 10:06 AM PDT) + + + + + + | Component | Value | Ref Range | Performed | Pathologist | | | | | At | Signature | + + + + + + | Glucose, | 111 (H)Comment: | 65 - 99 mg/dL | [facility] | | | POC | Performed by [facility] [address] | | [address]ED | | | | [address] [place] | | HEART | | | | [address] | | MEDICAL | | | | [...] + + | [facility] ALATORRE | [address] | [place] [address] | | | [facility] | | | | | LABORATORY [...] scheduled: AC, NPO, Daytime | | | [phone] Use NIGHT DOSE for | | | doses scheduled: HS, 3AM, | | | Nighttime 3555-3309 If the BG is | | | [...]
--- OUTSIDE RECORDS SUMMARY | ~2019-05-06 | XMS | Encounter Summary ---
Demographics + + + | Address | [address] | | | [place] [address] | + + + | Home Phone [...] + + + | Author | [facility] | + + + | Organization | [facility] | + + + | Address | Unknown | + + + | Phone | Unavailable | + + + Support + + + + + | Name | Relationship | Address | Phone | + + + + + | Matthew Ramirez | CHRIS | [address] | | | | | [place] | | | | | [address] | | + + + + + | Nella Haque | ECON | Unknown | | + + + + + Care Team Providers + +------+ + | Care Plant Maintenance Mechanic Name | Role | Phone | + +------+ + | Long Copeland MD | PCP | | + +------+ + Encounter Details +--------+ + + + + | Date | Type | Department | Care Team | Description | +--------+ + + + + | 08/22/ | Outside | UNKNOWN DEPARTMENT | Other, Faculty | | | 2019 | Records | [address] [facility] | [phone] | | | | | [address] | | | | | | [place], [place] | | | | | | [address] | | | +--------+ + + + [...]
--- OUTSIDE RECORDS SUMMARY | ~2019-05-06 | XMS | Encounter Summary ---
Demographics + + + | Address | [address] | | | [place] [address] | + + + | Home Phone [...] + | Matthew Ramirez | CHRIS | [address] | | | | | [place] | | | | | [address] | | + + + + + | Nella Garland | ECON | Unknown | | + + + + + Care Team Providers + +------+ + | Care Director Of Nurses Registry Name | Role | Phone | + [...] | | | | | Procedures | [address] | [address] | | | | | CONSULT TO | [facility], | Mailcode: | | | | | HEMATOLOGY / | [place] | [facility] | | | | | ONCOLOGY | [address] | Health and | | | | | PRACTICE | Phone: | Healing, | | | | | | [phone] | [address] | | | | | | Fax: | [place], [place] | | | | | | [phone] | [address] | | | | | | | Phone: | | | | | | | [phone] | | | | | | | Fax: | | | | | | | [phone] | + +---------+ + + + + Encounter Details +--------+ + + + + | Date | Type | Department | Care Team | Description | +--------+ + + + + | 10/24/ | Network Firewall Engineer | Surgical Oncology | Cristel Galicia MD | Tumor (Primary Dx) | | 2019 | | at [facility] [address] | [address] | | | | | [address] Mail Code: | [place], [place] | | | | | [facility] | [address] | | | | | and Healing, | [phone] | | | | | [address] | | | | | | [place], [place] | | | | | | [address] | | | | | | [phone] | | | +--------+ + + + [...]
--- OUTSIDE RECORDS SUMMARY | ~2019-05-06 | XMS | Encounter Summary ---
Demographics + + + | Address | [address] | | | [place] [address] | + + + | Home Phone [...] + | Matthew Ramirez | CHRIS | [address] | | | | | [place] | | | | | [address] | | + + + + + | Nella Haque | ECON | Unknown | | + + + + + Care Team Providers + +------+ + | Care Slubber Machine Operator Name | Role | Phone [...] | | | | ma (HCC) | [place], | | | | | | Procedures | [place] | | | | | | [place] | [address] | | | | | | CONTRAST | Phone: | | | | | | | [phone] | | | | | | | Fax: | | | | | | | [phone] | | + +--------+ + + + [...] | | | | ma (HCC) | [place], | | | | | | Procedures | [place] | | | | | | [place] | [address] | | | | | | CONTRAST | Phone: | | | | | | | [phone] | | | | | | | Fax: | | | | | | | [phone] | | + +--------+ + + + + Encounter Details +--------+ + + + + | Date | Type | Department | Care Team | Description | +--------+ + + + + | 02/02/ | Hospital | Radiology/Imaging | Cristel Galicia MD | | | 2019 | Encounter | Lab at [facility] [address] | [address] | | | | | [address] Mailcode: | [place], [place] | | | | | [address] | [address] | | | | | Health and Healing, | [phone] | | | | | [address] | | | | | | Floor [place], [place] | | | | | | [address] | | | | | | [phone] | | | +--------+ + + + [...] nostril | | | | | | [place] | once daily. | | | | [...]
--- OUTSIDE RECORDS SUMMARY | ~2019-05-06 | XMS | Encounter Summary ---
Demographics + + + | Address | [address] | | | [place] [address] | + + + | Home Phone | | + + + | Preferred Language | Unknown | + + + | Marital Status | | + + + | Druze Affiliation | Unknown | + + + | Race | Unknown | + + + | Ethnic Group | Unknown | + + + Author + + + | Author | [facility] | | | and Nenoana | + + + | Organization | [facility] [...] + | Matthew Ramirez | CHRIS | [address] | | | | | [place] | | | | | [address] | | + + + + + Care Team Providers + +------+ + | Care Loan Processing Supervisor Name | Role | Phone | + +------+ + PCP | Unavailable | + +------+ + Encounter Details +--------+ + + + + | Date | Type | Department | Care Team | Description | +--------+ + + + + | 09/06/ | Hospital | [facility] | | | | 2004 | Encounter | MED CTR XRAY [address] | | | | | | [address] | | | | | | [place] [address] | | | | | | [phone] | | | +--------+ + + + [...]
--- OUTSIDE RECORDS SUMMARY | ~2019-05-06 | XMS | Encounter Summary ---
Demographics + + + | Address | [address] | | | [place] [address] | + + + | Home Phone [...] Author | [facility] | | | and Nenoana | + + + | Organization | [facility] | | | and Nenoana [...] + | Matthew Ramirez | ECON | [address] | | | | | [place] | | | | | [address] | | + + + + + Care Team Providers + +------+ + | Care Lumber Salvager Name | Role | Phone | + [...] | | | | | | [place] REPAIR OF | | | | | [...] | +--------+ + + + + | 02/13/ | Hospital | [place] [facility] | Jose Randall | | | 2017 | Encounter | HOSPITAL OR INTRA OP | JACKIE Sanon [address] | | | | | [address] [place] | [place], | | | | | [place], [place] | [place] [address] | | | | | [address] | [phone] | | | | | [phone] | | | +--------+ + + + [...] documented in this encounter Discharge Instructions Jose Vaughn, JACKIE - 02/13/2018Jose puga documented in this encounter [...] in this encounter Administered Medications + +---------+ +------+-------+------+ | Medication Order | MAR | Action | Dose | Rate | Site | | | Action | Date | | | | + +---------+ +------+-------+------+ | ceFAZolin in dextrose (ANCEF) | New [...] | | | | | + +---------+ +------+-------+------+ +---+---+ | | | +---+---+ documented in this encounter"
--- OUTSIDE RECORDS SUMMARY | ~2019-05-06 | XMS | Encounter Summary ---
Demographics + + + | Address | [address] | | | [place] [address] | + + + | Home Phone [...] [facility] | | | and Nenoana | + + + | Organization | [facility] | | | and Nenoana | [...] + | Matthew Ramirez | ECON | [address] | | | | | [place] | | | | | [address] | | + + + + + Care Team Providers + +------+ + | Care Office Administrator Name | Role | Phone [...] + + | 03/18/ | Telephone | [facility] | Arpan | Coordination Of Care | | 2019 | | MED [facility] | Luis Richards MD [address] | | | | | ONCOLOGY CLINIC [address] | [facility] | | | | | [facility] | [place] [address] | | | | | [place] [address] | [phone] | | | | | [phone] | | | +--------+ + + + [...]
--- OUTSIDE RECORDS SUMMARY | ~2019-05-06 | XMS | Encounter Summary ---
Demographics + + + | Address | [address] | | | [place] [address] | + + + | Home Phone [...] | Author | [facility] | | | and Nenoana | + + + | Organization | [facility] | [...] + | Matthew Ramirez | ECON | [address] | | | | | [place] | | | | | [address] | | + + + + + Care Team Providers + +------+ + | Care Staff Trainer Name | Role | Phone | + +------+ + | Ashly Rojo PA-C | PCP | | + +------+ + Encounter Details +--------+ + + + + | Date | Type | Department | Care Team | Description | +--------+ + + + + | 01/05/ | Abstract | [facility] | Provider, | | | 2019 | | SURGERY [address] | MD [address] | | | | | [address] [place], [place] | [place] | | | | | [address] | [place] [address] | | | | | [phone] | | | +--------+ + + + [...]
--- OUTSIDE RECORDS SUMMARY | ~2019-05-06 | XMS | Encounter Summary ---
Demographics + + + | Address | [address] | | | [place] [address] | + + + | Home Phone | | + + + | Preferred Language | Unknown | + + + | Marital Status | | + + + | Moravian Affiliation | Unknown | + + + | Race | Unknown | + + + | Ethnic Group | Unknown | + + + Author + + + | Author | [facility] | | | and Nenoana | + + + | Organization | [facility] | | | and [...] + | Matthew Gomez | ECON | [address] | | | | | [place] | | | | | [address] | | + + + + + Care Team Providers + +------+ + | Care Senior Facilities Manager Name | Role | Phone | [...] | | | | [K31.9] | | [address] Phone: | | | | | Procedures | | [phone] | | | | | [place] | | Fax: | | | | | ESOPHAGOGAST | | [phone] | | | | | RODUODENOSCO | | | | | | | PY TRANSORAL | | | | | | | DIAGNOSTIC | | | | | | | [place] | | | | | [...] | | | [address] | [address] | | | | | [address] | | | | | | [phone] | | | +--------+---------+ + + + [...] | [facility] | | ASHLY GOMEZ | [place] | | : 1940 AGE: 78 years SEX: Female | [facility] | | | LABORATORY | | Acct: [id number] Location: | [facility] | | [facility]; [facility] MEDICAL PROCEDURE UNIT [place]; [facility] | | | MEDICAL PROCEDURE UNIT [place] | | | Case #: [id number] Ordering: | | | SUKUMAR STEVENSON MD Client: [facility] | | | [facility] Copy To: | | | [...] fragments. | | | Mild inactive chronic gastritis.[facility]/SK 01/14/19 01:36 pmVerified | | | by: ANNABELLE FULLER MDVerify Date: 01/20/2019 09:40 [facility] | | | [facility] [address] | | | SURGICAL PATHOLOGY FINAL REPORTCollected: [...] appropriately.As a part of our quality assurance technician | | | policy, this case has [...] developed and their performance characteristics determined by [facility]. This test is used for clinical | | | purposes. It should not be regarded as investigational or for | | | research. [facility] is certified under the Clinical | | | Laboratory Improvement Amendments of 1988 (CLIA) as qualified to | | | perform high complexity clinical laboratory testing. | | + + + + + + + + | Performing | Address | City/State/Rust[place] | Phone Number | | Organization | | | | + + + + + | [facility] SCALES | [address] [place] [address]. | [place] [address] | | | [facility] | | | | | LABORATORY EZE | | | | + + + + + EUS Upper (01/13/2019 11:39 AM PDT) + + | Specimen | + + | | + + + + + | Narrative | Performed At | + + + | [facility] | [place]W | | [facility] | [place] | | CenterGI | | | Patient Name: Ashly Gomez Procedure | | | Date: 01/13/2019 11:39 AMMRN: [id number] | | | of : 1940 | [...] Dr. SanReferring: | | | MATTHEW SAN, [facility]OSPITALedicines: Monitored | | | Anesthesia CareComplications: [...] AMNumber | | | of Addenda: 0 - | | | Endoscopy Services | | | | | |SUKUMAR STEVENSON MD | | |01/13/2019 1:07:25 PM | | |This report has been signed electronically. | | | | | |Note Initiated On: 01/13/2019 11:39 AM | | |Number of Addenda: 0 | | | | | | - Endoscopy Services | | + + [...] | TRACEMASTER | | Duration:172 msP Horizontal [place]:28 degP Front [place]:60 degQ Onset:512 | | | msQRSD Interval:136 msQT Interval:448 msQTcB:477 msQTcF:467 msQRS | | | Horizontal [place]:150 degQRS [place]:-35 degI-40 Horizontal [place]:34 degI-40 | | | Front [place]:74 degT-40 Horizontal [place]:151 degT-40 Front [place]:-77 degT | | | Horizontal [place]:8 degT Wave [place]:51 degS-T Horizontal [place]:21 degS-T | | | Front [place]:83 degSeverity:- ABNORMAL ECG -INTERP:SINUS | | | RHYTHMINTERP:VENTRICULAR PREMATURE COMPLEXINTERP:RBBB AND | | | LAFBINTERP:LEFT VENTRICULAR HYPERTROPHYElectronically signed by: | | | ANDREAS MAXWELL 01-18-2019 07:24:33 | | |QTcF:467 ms | | |QRS Horizontal [place]:150 deg | | |QRS [place]:-35 deg | | |I-40 Horizontal [place]:34 deg | | |I-40 Front [place]:74 deg | | |T-40 Horizontal [place]:151 deg | | |T-40 Front [place]:-77 deg | | |T Horizontal [place]:8 deg | | |T Wave [place]:51 deg | | |S-T Horizontal [place]:21 deg | | |S-T Front [place]:83 deg | | |Severity:- ABNORMAL ECG - [...] + + | [facility]I [facility] | [address] | [place] [address] | [phone] | + + + + + POC [...] Performed by [facility] [address] | | [address]CRED | | | | [address] [place] | | HEART | | | | [address] | | MEDICAL | | | | [...] + + | [facility] ALATORRE | [address] | [place] [address] | | | [facility] | | | | | LABORATORY [...] scheduled: AC, NPO, Daytime | | | 8491-8042 Use NIGHT DOSE for | | | doses scheduled: HS, 3AM, | | | Nighttime 5447-4025 If the BG is | | | [...]
--- OUTSIDE RECORDS SUMMARY | ~2019-05-06 | XMS | Encounter Summary ---
Demographics + + + | Address | [address] | | | [place] [address] | + + + | Home Phone [...] Author | [facility] | | | and [place]eno[place] | + + + | Organization | [facility] | | | and [...] + | Matthew Ramirez | ECON | [address] | | | | | [place] | | | | | [address] | | + + + + + Care Team Providers + +------+ + | Care Insight Director Name | Role | Phone | [...] HOSPITAL OR INTRA OP | JACKIE Sanon [address] | [place] 2, 3, 4 | | | | [address] [place] | [facility], | | | | | [place], [place] | [place] [address] | | | | | [address] | [phone] | | | | | [phone] | | | +--------+---------+ + + + [...]
--- OUTSIDE RECORDS SUMMARY | ~2019-05-06 | XMS | Encounter Summary ---
Demographics + + + | Address | [address] | | | [place] [address] | + + + | Home Phone [...] + | Matthew Ramirez | CHRIS | [address] | | | | | [place] | | | | | [address] | | + + + + + | Nella Haque | ECON | Unknown | | + + + + + Care Team Providers + +------+ + | Care Director Of Career Resources Name | Role | Phone | + +------+ + | Long Copeland MD | PCP | | + +------+ + Encounter Details +--------+ + + + + | Date | Type | Department | Care Team | Description | +--------+ + + + + | 08/22/ | Outside | UNKNOWN DEPARTMENT | Other, Faculty | | | 2019 | Records | [address] [facility] | [phone] | | | | | [address] | | | | | | [place], [place] | | | | | | [address] | | | +--------+ + + + [...]
--- OUTSIDE RECORDS SUMMARY | ~2019-05-06 | XMS | Encounter Summary ---
Demographics + + + | Address | [address] | | | [place] [address] | + + + | Home Phone [...] + | Matthew Ramirez | CHRIS | [address] | | | | | [place] | | | | | [address] | | + + + + + | Nella Haque | ECON | Unknown | | + + + + + Care Team Providers + +------+ + | Care Header Machine Operator Name | Role | Phone [...] | | | | ma (HCC) | [place], | | | | | | Procedures | [place] | | | | | | CT ABDOMEN | [address] | | | | | | AND PELVIS W | Phone: | | | | | | IV CONTRAST | [phone] | | | | | | | Fax: | | | | | | | [phone] | | + +--------+ + + + [...] | | | | ma (HCC) | [place], | | | | | | Procedures | [place] | | | | | | [place] | [address] | | | | | | CONTRAST | Phone: | | | | | | | [phone] | | | | | | | Fax: | | | | | | | [phone] | | + +--------+ + + + + Encounter Details +--------+ + + + + | Date | Type | Department | Care Team | Description | +--------+ + + + + | 01/28/ | Nylon Hot Wire Cutter | Surgical Oncology | Cristel Galicia MD | 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
--- OUTSIDE RECORDS SUMMARY | ~2019-05-06 | XMS | Encounter Summary ---
Demographics + + + | Address | [address] | | | [place] [address] | + + + | Home Phone [...] + | Author | [facility] | | | and Nenoana | + + + | Organization | [facility] | | [...] + | Matthew Ramirez | CHRIS | [address] | | | | | [place] | | | | | [address] | | + + + + + Care Team Providers + +------+ + | Care Quality Systems Specialist Name | Role | Phone | + +------+ + PCP | Unavailable | + +------+ + Encounter Details +--------+ + + + + | Date | Type | Department | Care Team | Description | +--------+ + + + + | 06/15/ | Hospital | [facility] | | | | 2004 | Encounter | MED CTR XRAY [address] | | | | | | [address] | | | | | | [place] [address] | | | | | | [phone] | | | +--------+ + + + [...]
--- OUTSIDE RECORDS SUMMARY | ~2019-05-06 | XMS | Encounter Summary ---
Demographics + + + | Address | [address] | | | [place] [address] | + + + | Home Phone | | + + + | Preferred Language | Unknown | + + + | Marital Status | | + + + | Religion Affiliation | NRP | + + + [...] + | Matthew Ramirez | CHRIS | [address] | | | | | [place] | | | | | [address] | | + + + + + | Nella Lowery ECON | Unknown | | + + + + + Care Team Providers + +------+ + | Care Dry Cell And Battery Assembler Name | Role | Phone | [...] | | at Amador Neal Cadet | [facility] | | | | | [address] | [place] [address] | | | | | Loop Mailcode: | | | | | | [id number] [facility] | | | | | | [facility] | | | | | | [place], [place] | | | | | | [address] | | | | | | [phone] | | | +--------+ + + + [...] nostril | | | | | | [place] | once daily. | | | | [...] view image for the detailed interpretation from [facility] results. | CARDIOLOGY | + + + + + + + + | Performing | Address | City/State/Zipcode | Phone Number | | Organization | | | | + + + + + | [facility] | [address] | [place], [place] | | | CARDIOLOGY | [address] | [address] | | + + + + + documented in this encounter Visit Diagnoses Not on filedocumented in this encounter
--- OUTSIDE RECORDS SUMMARY | ~2019-05-06 | XMS | Encounter Summary ---
Demographics + + + | Address | [address] | | | [place] [address] | + + + | Home Phone [...] Author | [facility] | | | and Nenoana | + + + | Organization | [facility] | | | and Nenoana | [...] + | Matthew Ramirez | CHRIS | [address] | | | | | [place] | | | | | [address] | | + + + + + Care Team Providers + +------+ + | Care Biological Technician Name | Role | Phone | + +------+ + PCP | Unavailable | + +------+ + Encounter Details +--------+ + + + + | Date | Type | Department | Care Team | Description | +--------+ + + + + | 06/27/ | Hospital | [facility] | | | | 2003 | Encounter | MED CTR XRAY [address] | | | | | | [address] | | | | | | [place] [address] | | | | | | [phone] | | | +--------+ + + + [...]
--- OUTSIDE RECORDS SUMMARY | ~2019-05-06 | XMS | Encounter Summary ---
Demographics + + + | Address | [address] | | | [place] [address] | + + + | Home Phone [...] + | Matthew Ramirez | CHRIS | [address] | | | | | [place] | | | | | [address] | | + + + + + | Nella Haque | ECON | Unknown | | + + + + + Care Team Providers + +------+ + | Care Rehabilitation Program Manager Name | Role | Phone | [...] | | | | ma (HCC) | [place], | | | | | | Procedures | [place] | | | | | | [place] ABDOMEN | [address] | | | | | | AND PELVIS W | Phone: | | | | | | IV CONTRAST | [phone] | | | | | | | Fax: | | | | | | | [phone] | | + +--------+ + + + [...] | | | | ma (HCC) | [place], | | | | | | Procedures | [place] | | | | | | [place] ABDOMEN | [address] | | | | | | AND PELVIS W | Phone: | | | | | | IV CONTRAST | [phone] | | | | | | | Fax: | | | | | | | [phone] | | + +--------+ + + + + Encounter Details +--------+ + + + + | Date | Type | Department | Care Team | Description | +--------+ + + + + | 02/02/ | Hospital | Radiology/Imaging | Cristel Galicia MD | | | 2019 | Encounter | Lab at [facility] [address] | [address] | | | | | [place]iselda Mailcode: | [place], [place] | | | | | [address] | [address] | | | | | Health and Healing, | [phone] | | | | | [address] | | | | | | Floor [facility] [place] | | | | | | [address] | | | | | | [phone] | | | +--------+ + + + [...] nostril | | | | | | [place] | once daily. | | | | [...] + + | DANISHA FARIAS | [address] [facility] | [place] [address] | | | OF CARE TESTS | [...]
--- OUTSIDE RECORDS SUMMARY | ~2019-05-06 | XMS | Encounter Summary ---
Demographics + + + | Address | [address] | | | [place] [address] | + + + | Home Phone | | + + + | Preferred Language | Unknown | + + + | Marital Status | | + + + | Rastafari Affiliation | Unknown | + + + | Race | Unknown | + + + | Ethnic Group | Unknown | + + + Author + + + | Author | [facility] | | | and Nenoana | + + + | Organization | [facility] | | | [...] + | Matthew Ramirez | ECON | [address] | | | | | [place] | | | | | [address] | | + + + + + Care Team Providers + +------+ + | Care Racing Board Marker Name | Role | Phone | + [...] | | | | | | DE REPAIR | | | | | | [...] HOSPITAL OR INTRA OP | JACKIE Sanon [address] | | | | | [address] [place] | [facility] [place], | | | | | [place], [place] | [place] [address] | | | | | [address] | [phone] | | | | | [phone] | | | +--------+ + + + [...]
--- OUTSIDE RECORDS SUMMARY | ~2019-05-06 | XMS | Encounter Summary ---
Demographics + + + | Address | [address] | | | [place] [address] | + + + | Home Phone [...] Author | [facility] | | | and Nenoana | + + + | Organization | [facility] | | | and [...] + | Matthew Ramirez | ECON | [address] | | | | | [place] | | | | | [address] | | + + + + + Care Team Providers + +------+ + | Care Price Economist Name | Role | Phone | + [...] Clinton Stringer, | | | | | ([facility]) | MD [address] | MD [address] | | | | | [address] | [place] | | | | | | [place], | [place], [place] | | | | | | [place] [address] | [address] | | | | | | Phone: | Phone: | | | | | | [phone] | [phone] | | | | | | Fax: | Fax: | | | | | | [phone] | [phone] | +--------+ + + + + + Encounter Details +--------+ + + + + | Date | Type | Department | Care Team | Description | +--------+ + + + + | 01/25/ | Orders Only | [facility] | Arpan, | Linitis plastica | | 2019 | | MED CTR MEDICAL | Luis Richards MD [address] | ([facility]) (Primary Dx) | | | | ONCOLOGY CLINIC [address] [place] | | | | | [place] | [place] [address] | | | | | [place] [address] | [phone] | | | | | [phone] | | | +--------+ + + + [...]
--- OUTSIDE RECORDS SUMMARY | ~2019-05-06 | XMS | Encounter Summary ---
Demographics + + + | Address | [address] | | | [place] [address] | + + + | Home Phone | | + + + | Preferred Language | Unknown | + + + | Marital Status | | + + + | Sikhism Affiliation | NRP | + + + | Race | White | + + + | Ethnic Group | Not or | + + + Author + + + | Author | [facility] | + + + | Organization | [facility] | + + + | Address | Unknown | + + + | Phone | Unavailable | + + + Support + + + + + | Name | Relationship | Address | Phone | + + + + + | Matthew Ramirez | CHRIS | [address] | | | | | [place] | | | | | [address] | | + + + + + | Nella Haque | ECON | Unknown | | + + + + + Care Team Providers + +------+ + | Care Quality Compliance Consultant Name | Role | Phone | [...] | | 2010 | | [facility] [place] | MD Gillian [address] | | | | | [address] | [facility] | | | | | [address] | [place], [place] | | | | | /[id number] [facility] | [address] | | | | | [facility], | [phone] | | | | | [place] [address] | | | | | | [phone] | | | +--------+ + + + [...]
--- OUTSIDE RECORDS SUMMARY | ~2019-05-06 | XMS | Encounter Summary ---
Demographics + + + | Address | [address] | | | [place] [address] | + + + | Home Phone | | + + + | Preferred Language | Unknown | + + + | Marital Status | | + + + | Taoist Affiliation | Unknown | + + + | Race | Unknown | + + + | Ethnic Group | Unknown | + + + Author + + + | Author | [facility] | | | and Nenoana | + + + | Organization | [facility] | [...] + | Matthew Ramirez | ECON | [address] | | | | | [place] | | | | | [address] | | + + + + + Care Team Providers + +------+ + | Care Laserist Name | Role | Phone | + [...] / | Diagnoses | Gayla | [facility] | | | Services | General | 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 | General | | | Required | Surgery | adenocarcino | [address] | Surgery [address] | | | | | [address]arg[address] ([facility]) | [address] | [address] | | | | | | [place], [place] | [place], | | | | | | [address] | [place] [address] | | | | | | Phone: | Phone: | | | | | | [phone] | [phone] | | | | | | Fax: | Fax: | | | | | | [phone] | [phone] | +--------+ + + + + + Encounter Details +--------+---------+ + + + | Date | Type | Department | Care Team | Description | +--------+---------+ + + + | 01/07/ | Office | [facility] | Ana Mendez MD | Gastric | | 2019 | Visit | SURGERY [address] | [address] [facility] | adenocarcinoma (HCC) | | | | [place], [place] | [place] [address] | (Primary Dx) | | | | [address] | [phone] | | | | | [phone] | | | +--------+---------+ + + + [...] adenoma. COMMENT: A -- As part of [facility] Quality Improvement Program, this portion of the case h as been reviewed by another member of our pathology staff with subspecialty training in lisa rointestinal pathology. Results called to Dr. Shukla office ([place]) 12/24/18 10:15 AM. Discussed results on specimen [...] Procedure: COLONOSCOPY; Surgeon: Matthew Shukla MD; Location: [facility] MEDICAL PROCEDURE UNIT FINGER SURGERY Left 2007 Thumb surgery for osteoarthritis FINGER SURGERY Left 11/2008 FINGER SURGERY Right 04/2012 Thumb surgery HAMMER TOE SURGERY Right 03/06/2017 Procedure: Correction Hammer Toes 2nd , 3rd, and 4th Toes; Surgeon: ANNIE Cuevas; Location: [facility] SURGERY HAMMER TOE SURGERY Left 07/04/2017 Procedure: CORRECTION HAMMERTOES 2, 3, 4; Surgeon: Jose Randall DPM; Location: [facility] [place] [facility] HAMMER TOE SURGERY Left 2018 x3 KNEE ARTHROSCOPY Right 2001 PUBOVAGINAL SLING 10/16/2010 TVT Retropubic sling at [facility] SIGMOID COLECTOMY 12/20/2002 Franck Davis MD - [facility] AND O 1996 TONSILLECTOMY AND ADENOIDECTOMY 1948 TOTAL KNEE ARTHROPLASTY Right 07/11/2011 TUBAL LIGATION 1976 UPPER GASTROINTESTINAL ENDOSCOPY N/A 12/17/2018 Procedure: EGD; Surgeon: Matthew Shukla MD; Location: [facility] MEDICAL PROCEDURE UNIT URETHROPEXY 07/11/2010 Revision [...] MCG tablet Take 800 mcg by mouth. Cfccgggqygm-Xnnfcfdpt-Ior C-Mn (GLUCOSAMINE CHONDR 500 COMPLEX) CAPS 2 [...] has put in an urgent referral to [facility] erologist for a repeat EGD [...] this chart may have been created with Route[employer] voice recognition software. Occasi onal wrong-word or [...]
--- OUTSIDE RECORDS SUMMARY | ~2019-05-06 | XMS | Encounter Summary ---
Demographics + + + | Address | [address] | | | [place] [address] | + + + | Home Phone [...] + | Author | [facility] | | | and Nenoana | + + + | Organization | [facility] | | | and [...] + | Matthew Ramirez | ECON | [address] | | | | | [place] | | | | | [address] | | + + + + + Care Team Providers + +------+ + | Care Property And Equipment Clerk Name | Role | Phone | [...] | | | | | ([facility]) | MD [address] | MD [address] | | | | | [address] | [place] | | | | | | [place], | [place], [place] | | | | | | [place] [address] | [address] | | | | | | Phone: | Phone: | | | | | | [phone] | [phone] | | | | | | Fax: | Fax: | | | | | | [phone] | [phone] | +--------+ + + + + + Encounter Details +--------+ + + + + | Date | Type | Department | Care Team | Description | +--------+ + + + + | 01/25/ | Orders Only | [facility] | Arpan, | Linitis plastica | | 2019 | | MED CTR MEDICAL | Luis Richards MD [address] | ([facility]) (Primary Dx) | | | | ONCOLOGY CLINIC [address] | [address] [place] | | | | | [place] | [place] [address] | | | | | [place] [address] | [phone] | | | | | [phone] | | | +--------+ + + + [...]
--- OUTSIDE RECORDS SUMMARY | ~2019-05-06 | XMS | Encounter Summary ---
Demographics + + + | Address | [address] | | | [place] [address] | + + + | Home Phone | | + + + | Preferred Language | Unknown | + + + | Marital Status | | + + + | Pentecostal Affiliation | NRP | + + + [...] + | Matthew Ramirez | ECON | [address] | | | | | [place] | | | | | [address] | | + + + + + | Nella Haque | ECON | Unknown | | + + + + + Care Team Providers + +------+ + | Care Manager Hematology Name | Role | Phone | + [...]
--- OUTSIDE RECORDS SUMMARY | ~2019-05-06 | XMS | Encounter Summary ---
Demographics + + + | Address | [address] | | | [place] [address] | + + + | Home Phone [...] Author | [facility] | | | and Nenoana | + + + | Organization | [facility] | | [...] + | Matthew Ramirez | ECON | [address] | | | | | [place] | | | | | [address] | | + + + + + Care Team Providers + +------+ + | Care Bliss Press Operator Name | Role | Phone | [...] [address] [place] | [address] [place], | | | | | [facility], [place] | [place] [address] | | | | | [address] | [phone] | | | | | [phone] | | | +--------+ + + + [...] Care Everywhere.Foot Surgery: Maurice pace Fifth Toe (Icelandic)Foot Surgery: Flexible and Rigid Hammertoes (Icelandic)Mallet, Hammer , and Claw Toes, Treating (Icelandic)Mallet, Hammer, and Claw Toes, What Are (Icelandic)document ed in this encounter Medications at Time [...]
--- OUTSIDE RECORDS SUMMARY | ~2019-05-06 | XMS | Encounter Summary ---
Demographics + + + | Address | [address] | | | [place] [address] | + + + | Home Phone [...] Author | [facility] | | | and Nenoana | + + + | Organization | [facility] | | [...] + | Matthew Ramirez | ECON | [address] | | | | | [place] | | | | | [address] | | + + + + + Care Team Providers + +------+ + | Care Senior Health Educator Name | Role | Phone | + [...] + + | 01/15/ | Telephone | [facility] | Arpan, | Patient Concerns | | 2019 | | MED [facility] MEDICAL | Luis Richards MD [address] | | | | | ONCOLOGY CLINIC [address] | [facility] | | | | | [address] [place] | [place] [address] | | | | | [place] [address] | [phone] | | | | | [phone] | | | +--------+ + + + [...]
--- OUTSIDE RECORDS SUMMARY | ~2019-05-06 | XMS | Encounter Summary ---
Demographics + + + | Address | [address] | | | [place] [address] | + + + | Home Phone [...] | Author | [facility] | | | and Nenoana | + + + | Organization | [facility] | | | and [...] + | Matthew Ramirez | CHRIS | [address] | | | | | [place] | | | | | [address] | | + + + + + Care Team Providers + +------+ + | Care Steam Shovelman Name | Role | Phone | + +------+ + PCP | Unavailable | + +------+ + Encounter Details +--------+ + + + + | Date | Type | Department | Care Team | Description | +--------+ + + + + | 03/28/ | Hospital | [facility] | | | | 1996 | Encounter | MED CTR LABORATORY | | | | | | [address] | | | | | | [place] | | | | | | [address] | | | | | | [phone] | | | +--------+ + + + [...]
--- OUTSIDE RECORDS SUMMARY | ~2019-05-06 | XMS | Encounter Summary ---
Demographics + + + | Address | [address] | | | [place] [address] | + + + | Home Phone [...] + | Matthew Ramirez | ECON | [address] | | | | | [place] | | | | | [address] | | + + + + + | Nella Haque | ECON | Unknown | | + + + + + Care Team Providers + +------+ + | Care Data Sme Name | Role | Phone | + [...]
--- OUTSIDE RECORDS SUMMARY | ~2019-05-06 | XMS | Encounter Summary ---
Demographics + + + | Address | [address] | | | [place] [address] | + + + | Home Phone | | + + + | Preferred Language | Unknown | + + + | Marital Status | | + + + | Rastafarian Affiliation | Unknown | + + + | Race | Unknown | + + + | Ethnic Group | Unknown | + + + Author + + + | Author | [facility] | | | and Nenoana | + + + | Organization | [facility] | | | and [...] + | Matthew Gomez | ECON | [address] | | | | | [place] | | | | | [address] | | + + + + + Care Team Providers + +------+ + | Care Metalizer Field Operation Name | Role | Phone | + [...] | | | | [K31.9] | | [address] Phone: | | | | | Procedures | | [phone] | | | | | [place] | | Fax: | | | | | ESOPHAGOGAST | | [phone] | | | | | RODUODENOSCO | | | | | | | PY TRANSORAL | | | | | | | DIAGNOSTIC | | | | | | | [place] | | | | | [...] | | | [address] [place] | [address] | | | | | [address] | | | | | | [phone] | | | +--------+---------+ + + + [...] | [facility] | | [address]OME[address] | [address] | | : 1940 AGE: 78 years SEX: Female | [facility] | | | LABORATORY | | Acct: [id number] Location: | [facility] | | [facility]; [facility] MEDICAL PROCEDURE UNIT [place]; [facility] | | | MEDICAL PROCEDURE UNIT [place] | | | Case #: [id number] Ordering: | | | SUKUMAR STEVENSON MD Client: [facility] | | | [facility] Copy To: | | | Printed: [...] fragments. | | | Mild inactive chronic gastritis.[facility]/SK 01/14/19 01:36 pmVerified | | | by: ANNABELLE FULLER MDVerify Date: 01/20/2019 09:40 [facility] | | | [facility] [address] | | | SURGICAL PATHOLOGY FINAL REPORTCollected: [...] appropriately.As a part of our quality assurance monitor chassis | | | policy, this case has [...] developed and their performance characteristics determined by [facility]. This test is used for clinical | | | purposes. It should not be regarded as investigational or for | | | research. [facility] is certified under the Clinical | | | Laboratory Improvement Amendments of 1988 (CLIA) as qualified to | | | perform high complexity clinical laboratory testing. | | + + + + + + + + | Performing | Address | City/State/[facility] | Phone Number | | Organization | | | | + + + + + | [facility] | [address] [place] [address]. | [place] [address] | | | [facility] | | | | | LABORATORY EZE | | | | + + + + + EUS Upper (01/13/2019 11:39 AM PDT) + + | Specimen | + + | | + + + + + | Narrative | Performed At | + + + | [facility] | [address] | | [facility] | PROVATION | | CenterGI | | | Patient Name: Ashly Gomez Procedure | | | Date: 01/13/2019 11:39 AMMRN: [id number] | | | of : 1940 | [...] Dr. SanReferring: | | | MATTHEW SAN, [facility]ITALedicines: Monitored | | | Anesthesia CareComplications: [...] AMNumber | | | of Addenda: 0 [facility] - | | | Endoscopy Services | | | | | |SUKUMAR STEVENSON MD | | |01/13/2019 1:07:25 PM | | |This report has been signed electronically. | | | | | |Note Initiated On: 01/13/2019 11:39 AM | | |Number of Addenda: 0 | | | | | | [facility] Endoscopy Services | | + + [...] | TRACEMASTER | | Duration:172 msP Horizontal [place]:28 degP Front [place]:60 degQ Onset:512 | | | msQRSD Interval:136 msQT Interval:448 msQTcB:477 msQTcF:467 msQRS | | | Horizontal [place]:150 degQRS [place]:-35 degI-40 Horizontal [place]:34 degI-40 | | | Front [place]:74 degT-40 Horizontal [place]:151 degT-40 Front [place]:-77 degT | | | Horizontal [place]:8 degT Wave [place]:51 degS-T Horizontal [place]:21 degS-T | | | Front [place]:83 degSeverity:- ABNORMAL ECG -INTERP:SINUS | | | RHYTHMINTERP:VENTRICULAR PREMATURE COMPLEXINTERP:RBBB AND | | | LAFBINTERP:LEFT VENTRICULAR HYPERTROPHYElectronically signed by: | | | ANDREAS MAXWELL 01-18-2019 07:24:33 | | |QTcF:467 ms | | |QRS Horizontal [place]:150 deg | | |QRS [place]:-35 deg | | |I-40 Horizontal [place]:34 deg | | |I-40 Front [place]:74 deg | | |T-40 Horizontal [place]:151 deg | | |T-40 Front [place]:-77 deg | | |T Horizontal [place]:8 deg | | |T Wave [place]:51 deg | | |S-T Horizontal [place]:21 deg | | |S-T Front [place]:83 deg | | |Severity:- ABNORMAL ECG - [...] + + | [facility] | [address] | [place] [address] | [phone] | + + + + + POC Glucose (01/13/2019 10:06 AM PDT) + + + + + + | Component | Value | Ref Range | Performed | Pathologist | | | | | At | Signature | + + + + + + | Glucose, | 111 (H)Comment: | 65 - 99 mg/dL | [facility] | | | POC | Performed by [facility] [address] | | SACRED | | | | [address] [place] | | HEART | | | | [address] | | MEDICAL | | | | [...] + + | [facility] | [address] | [place] [address] | | | [facility] | | | | | [...] scheduled: AC, NPO, Daytime | | | 8309-6608 Use NIGHT DOSE for | | | doses scheduled: HS, 3AM, | | | Nighttime 2875-9954 If the BG is | | | [...]
--- OUTSIDE RECORDS SUMMARY | ~2019-05-06 | XMS | Encounter Summary ---
Demographics + + + | Address | [address] | | | [place] [address] | + + + | Home Phone [...] | Author | [facility] | | | and Nenoana | + + + | Organization | [facility] | | | and Nenoana [...] + | Matthew Ramirez | ECON | [address] | | | | | [place] | | | | | [address] | | + + + + + Care Team Providers + +------+ + | Care Pet Technologist Name | Role | Phone | [...] + + | 12/24/ | Telephone | [facility] | Matthew Shukla MD | Results | | 2019 | | GASTROENTEROLOGY | [address] [facility] | | | | | [address] [facility] | [place], [place] | | | | | [address] [place], [place] | [address] | | | | | [address] | [phone] | | | | | [phone] | | | +--------+ + + + [...]
--- OUTSIDE RECORDS SUMMARY | ~2019-05-06 | XMS | Encounter Summary ---
Demographics + + + | Address | [address] | | | [place] [address] | + + + | Home Phone [...] + | Matthew Ramirez | CHRIS | [address] | | | | | [place] | | | | | [address] | | + + + + + | Nella Haque | ECON | Unknown | | + + + + + Care Team Providers + +------+ + | Care Biodiesel Product Development Manager Name | Role | Phone | [...] of bladder | | 2010 | | [facility] | MD Gillian [address] | (surgery 10/26/10, | | | | [address] | [facility] [address] | urogyn) | | | | [address] | [place], [place] | | | | | [id number] | [address] | | | | | [facility], | [phone] | | | | | [place] [address] | | | | | | [phone] | | | +--------+ + + + [...] [address] | [place] [address] | | | [place] | [address] | | | + + + + + documented in this encounter Visit Diagnoses + + | Diagnosis | + + | UTI (urinary tract infection) - Primary Urinary tract infection, site not specified | + + documented in this encounter"
--- OUTSIDE RECORDS SUMMARY | ~2019-05-06 | XMS | Encounter Summary ---
Demographics + + + | Address | [address] | | | [place] [address] | + + + | Home Phone [...] | Author | [facility] | | | and Nenoana | + + + | Organization | [facility] | | [...] + | Matthew Ramirez | ECON | [address] | | | | | [place] | | | | | [address] | | + + + + + Care Team Providers + +------+ + | Care Morgue Attendant Name | Role | Phone | [...] | | | | | | | CT REPAIR OF | | | | | [...] | | | [place], [place] | [place] [address] | | | | | [address] | [phone] | | | | | [phone] | | | +--------+ + + + [...]
--- OUTSIDE RECORDS SUMMARY | ~2019-05-06 | XMS | Encounter Summary ---
Demographics + + + | Address | [address] | | | [place] [address] | + + + | Home Phone [...] + | Matthew Ramirez | CHRIS | [address] | | | | | [place] | | | | | [address] | | + + + + + | Nella Haque | ECON | Unknown | | + + + + + Care Team Providers + +------+ + | Care Loan Service Officer Name | Role | Phone | [...] | | [address] Mail Code: | [place], [place] | | | | | [facility] | [address] | | | | | and [place], | [phone] | | | | | [address] | | | | | | [place], [place] | | | | | | [address] | | | | | | [phone] | | | +--------+ + + + [...]
--- OUTSIDE RECORDS SUMMARY | ~2019-05-06 | XMS | Encounter Summary ---
Demographics + + + | Address | [address] | | | [place] [address] | + + + | Home Phone [...] | Author | [facility] | | | and Nenoana | + + + | Organization | [facility] | [...] + | Matthew Ramirez | ECON | [address] | | | | | [place] | | | | | [address] | | + + + + + Care Team Providers + +------+ + | Care Approver Name | Role | Phone | + [...] | plastica | Luis Richards, | Clinton Strinegr, | | | | | (FORMERLY [facility]) | MD [address] | MD [address] | | | | | [address] | [address] | | | | | | [place], | [place], [place] | | | | | | [place] [address] | [address] | | | | | | Phone: | Phone: | | | | | | [phone] | [phone] | | | | | | Fax: | Fax: | | | | | | [phone] | [phone] | +--------+ + + + + + Encounter Details +--------+ + + + + | Date | Type | Department | Care Team | Description | +--------+ + + + + | 01/25/ | Orders Only | [facility] | Arpan, | Linitis plastica | | 2019 | | [facility] | Luis Richards MD [address] | ([facility]) (Primary Dx) | | | | ONCOLOGY CLINIC [address] [place] | | | | | [place] | [place] [address] | | | | | [place] [address] | [phone] | | | | | [phone] | | | +--------+ + + + [...]
--- OUTSIDE RECORDS SUMMARY | ~2019-05-06 | XMS | Encounter Summary ---
Demographics + + + | Address | [address] | | | [place] [address] | + + + | Home Phone [...] + | Matthew Ramirez | CHRIS | [address] | | | | | [place] | | | | | [address] | | + + + + + | Nella Haque | ECON | Unknown | | + + + + + Care Team Providers + +------+ + | Care Construction Driller Name | Role | Phone | + [...] | | sphincter | MD Gillian | [address] | | | | | deficiency | [address] | [id number] | | | | | (ISD) | [facility] | [facility] | | | | | Urinary | Rd | [place], | | | | | stress | [place], [place] | [place] [address] | | | | | incontinence | [address] | Phone: | | | | | Procedures | Phone: | [phone] | | | | | REQUEST TO | [phone] | Fax: | | | | | SURGERY | Fax: | [phone] | | | | | RADIOLOGY TECHNICIAN | [phone] | | | | | | [place] | | | | | | | CYSTOURETHRO | | | | | | | [place]OP[place] | | | | | | [...] | 2010 | Visit | [facility] | MD Gillian [address] | (Primary Dx) | | | | [place] [address] | | | | | [address] | [place], [place] | | | | | [id number] [facility] | [address] | | | | | [facility], | [phone] | | | | | [place] [address] | | | | | | [phone] | | | +--------+---------+ + + + [...]
--- OUTSIDE RECORDS SUMMARY | ~2019-05-06 | XMS | Encounter Summary ---
Demographics + + + | Address | [address] | | | [place] [address] | + + + | Home Phone | | + + + | Preferred Language | Unknown | + + + | Marital Status | | + + + | Judaism Affiliation | Unknown | + + + | Race | Unknown | + + + | Ethnic Group | Unknown | + + + Author + + + | Author | [facility] | | | and Nenoana | + + + | Organization | [facility] | | [...] + | Matthew Ramirez | ECON | [address] | | | | | [place] | | | | | [address] | | + + + + + Care Team Providers + +------+ + | Care Small Business Representative Name | Role | Phone | + [...] | | | | [K31.9] | | [address] Phone: | | | | | Procedures | | [phone] | | | | | [place] | | Fax: | | | | | ESOPHAGOGAST | | [phone] | | | | | RODUODENOSCO | | | | | | | PY TRANSORAL | | | | | | | DIAGNOSTIC | | | | | | | [place] EDG US | | | | | [...] INTRA OP [address] | [place] [address] | | | | | [place] | [phone] | | | | | [address] | | | | | | [phone] | | | +--------+ + + + [...] handed off to recovery nurse. VSS and [place] airway | | | 2 | | [...] 01/13/19 1323 by | | nicolas | [id number] catheter system; | Jacklyn Gore RN | [...]
--- OUTSIDE RECORDS SUMMARY | ~2019-05-06 | XMS | Encounter Summary ---
Demographics + + + | Address | [address] | | | [place] [address] | + + + | Home Phone [...] + | Matthew Ramirez | CHRIS | [address] | | | | | [place] | | | | | [address] | | + + + + + | Nella Garland | ECON | Unknown | | + + + + + Care Team Providers + +------+ + | Care Vegetable Farmer Name | Role | Phone | + [...] | | | | CONSULT TO | [facility], | Mailcode: | | | | | HEMATOLOGY / | [place] | [facility] | | | | | ONCOLOGY | [address] | Health and | | | | | PRACTICE | Phone: | Healing, | | | | | | [phone] | [address] | | | | | | Fax: | [place], [place] | | | | | | [phone] | [address] | | | | | | | Phone: | | | | | | | [phone] | | | | | | | Fax: | | | | | | | [phone] | + +---------+ + + + + Encounter Details +--------+ + + + + | Date | Type | Department | Care Team | Description | +--------+ + + + + | 10/24/ | [facility] | Surgical Oncology | Cristel Galicia MD | Tumor (Primary Dx) | | 2019 | | at [facility] [address] | [address] | | | | | [place]iselda Mail Code: | [place], [place] | | | | | [facility] | [address] | | | | | and Healing, | [phone] | | | | | [address] | | | | | | [place], [place] | | | | | | [address] | | | | | | [phone] | | | +--------+ + + + [...]
--- OUTSIDE RECORDS SUMMARY | ~2019-05-06 | XMS | Encounter Summary ---
Demographics + + + | Address | [address] | | | [place] [address] | + + + | Home Phone [...] Author | [facility] | | | and Nenoana | + + + | Organization | [facility] | | [...] + + + + + | Matthew Raimrez | ECON | [address] | | | | | [place] | | | | | [address] | | + + + + + Care Team Providers + +------+ + | Care Blast Furnace Keeper Name | Role | Phone | + [...] | | | | | | [place] REPAIR | | | | | | [...] HOSPITAL OR INTRA OP | JACKIE Sanon [address] | | | | | [address] [place] | [address] [facility] [place], | | | | | [place], [place] | [place] [address] | | | | | [address] | [phone] | | | | | [phone] | | | +--------+ + + + [...]
--- OUTSIDE RECORDS SUMMARY | ~2019-05-06 | XMS | Encounter Summary ---
Demographics + + + | Address | [address] | | | [place] [address] | + + + | Home Phone [...] | Author | [facility] | | | and Nenoana | + + + | Organization | [facility] | | | and Nenoana [...] + | Matthew Ramirez | ECON | [address] | | | | | [place] | | | | | [address] | | + + + + + Care Team Providers + +------+ + | Care Residential Builder Name | Role | Phone | + [...] | [address] | [place] [address] | | | | | [address] | | | | | | [phone] | | | +--------+ + + + [...]
--- OUTSIDE RECORDS SUMMARY | ~2019-05-06 | XMS | Encounter Summary ---
Demographics + + + | Address | [address] | | | [place] [address] | + + + | Home Phone [...] Author | [facility] | | | and Nenoana | + + + | Organization | [facility] [...] + | Matthew Ramirez | ECON | [address] | | | | | [place] | | | | | [address] | | + + + + + Care Team Providers + +------+ + | Care Supervisor Microfilm Duplicating Unit Name | Role | Phone | + [...] | | | | | | [place] [address] | | | | | | [phone] | | | +--------+ + + + [...]
--- OUTSIDE RECORDS SUMMARY | ~2019-05-06 | XMS | Encounter Summary ---
Demographics + + + | Address | [address] | | | [place] [address] | + + + | Home Phone [...] + | Matthew Ramirez | CHRIS | [address] | | | | | [place] | | | | | [address] | | + + + + + | Nella Haque | ECON | Unknown | | + + + + + Care Team Providers + +------+ + | Care Cook Helper Juice Name | Role | Phone | + [...] Visit | [facility] at | T, OUTREACH CLINICIAN-C,MPH | Preop examination; | | | | [facility] 4th Floor [address] | | Diabetes mellitus | | | | [address] | | screening; Other | | | | Mailcode: CH4S | | specified | | | | [facility] | | pre-operative | | | | and Healing, | | examination | | | | Building 1,4th Floor | | | | | | [place], [place] | | | | | | [address] | | | | | | [phone] | | | +--------+---------+ + + + [...] % (0.1 mg/g) Vaginal Cream folic acid Otsbnanfany-Kdugqajpp-Naz C-Mn (GLUCOSAMINE CHONDROITIN MAXSTR)- HOLD 7 days [...] OR NON-STEROIDAL ANTI-INFLAMMATORY DRUGS (NSAIDs) Advil, Aleve, Roxanne-Walling, Anacin, Arthopan, Ascriptin, Aspergum, Aspirin with and [...] Phenylbutazone, Piroxicam, Propoxyphene, Relafen, Robomol, Rufen, Sine-aid, [place] s cold tablets, Sulindac, Talwin, Tolectin, Triaminicin, [...] perfume, lotions or powder. Remove any nail bulgarian from at least one fingernail. Do not [...] Surgery Check in Locations Day Stay Unit [phone], [facility], fourth floor Room 4517 Surgery Check in Time Check-in times for Hospital Admissions are not available until the day prior to surgery. So meone from your surgeon's office or the hospital will contact you with your check in time. I f you do not hear from anyone by 3:00 PM please call your surgeons' office for [id number] . Going Home Your surgeon will decide [...] it is after office hours, call the [facility] chopped strand operator at [phone] and ask them to page your doc [...] Scanned H&P. H and P entered into [employer](Chart review, Media tab). Vy Sosa RN, KAELA, MPH [facility] [address] Mail Code: [facility], [place] [address] documente d in this encounter Plan [...] POINT | [address] | [place] [address] | | | OF CARE TESTS | [...] | | | DEPARTMENT | | | PANAMANIAN | | | OF | | | [...] + + | [facility] DEPARTMENT | [address] | [place] [address] | | | PATHOLOGY | [address] [...] DEPARTMENT OF | [address] | [place] [address] | | | PATHOLOGY | [address] [...] | + + + + + | [facility] DEPARTMENT OF | [address] | [place] [address] | | | PATHOLOGY | [address] [...]
--- OUTSIDE RECORDS SUMMARY | ~2019-05-06 | XMS | Encounter Summary ---
Demographics + + + | Address | [address] | | | [place] [address] | + + + | Home Phone [...] | Author | [facility] | | | and Nenoana | + + + | Organization | [facility] | | [...] + | Matthew Ramirez | CHRIS | [address] | | | | | [place] | | | | | [address] | | + + + + + Care Team Providers + +------+ + | Care Mis Manager Name | Role | Phone | [...] | SR | | | | | [phone] | | | +--------+ + + + [...]
--- OUTSIDE RECORDS SUMMARY | ~2019-05-06 | XMS | Encounter Summary ---
Demographics + + + | Address | [address] | | | [place] [address] | + + + | Home Phone [...] Author | [facility] | | | and Nenoana | + + + | Organization | [facility] | | | and [...] [place] | | | | | [address] | | + + + + + Care Team Providers + +------+ + | Care Riverboat Captain Name | Role | Phone | + +------+ + PCP | Unavailable | + +------+ + Encounter Details +--------+ + + + + | Date | Type | Department | Care Team | Description | +--------+ + + + + | 06/27/ | Hospital | [facility] | | | | 2003 | Encounter | MED CTR XRAY [address] | | | | | | [address] | | | | | | [place] [address] | | | | | | [phone] | | | +--------+ + + + [...]
--- OUTSIDE RECORDS SUMMARY | ~2019-05-06 | XMS | Encounter Summary ---
Demographics + + + | Address | [address] | | | [place] [address] | + + + | Home Phone [...] | [facility] | | | and Nenoana | + + + | Organization | [facility] | [...] + | Matthew Ramirez | CHRIS | [address] | | | | | [place] | | | | | [address] | | + + + + + Care Team Providers + +------+ + | Care Clipper Machine Name | Role | Phone | + +------+ + PCP | Unavailable | + +------+ + Encounter Details +--------+ + + + + | Date | Type | Department | Care Team | Description | +--------+ + + + + | 06/15/ | Hospital | [facility] | | | | 2004 | Encounter | MED CTR XRAY [address] | | | | | | [address] | | | | | | [place] [address] | | | | | | [phone] | | | +--------+ + + + [...]
--- OUTSIDE RECORDS SUMMARY | ~2019-05-06 | XMS | Encounter Summary ---
Demographics + + + | Address | [address] | | | [place] [address] | + + + | Home Phone | | + + + | Preferred Language | Unknown | + + + | Marital Status | | + + + | Baptist Affiliation | Unknown | + + + | Race | Unknown | + + + | Ethnic Group | Unknown | + + + Author + + + | Author | [facility] | | | and Nenoana | + + + | Organization | [facility] | [...] + | Matthew Ramirez | ECON | [address] | | | | | [place] | | | | | [address] | | + + + + + [...] | | | | | | [place] [address] | | | | | | [phone] | | | +--------+ + + + [...]
--- OUTSIDE RECORDS SUMMARY | ~2019-05-06 | XMS | Encounter Summary ---
Demographics + + + | Address | [address] | | | [place] [address] | + + + | Home Phone [...] Author | [facility] | | | and Nenoana | + + + | Organization | [facility] | | | and Nenoana | + [...] + | Matthew Ramirez | ECON | [address] | | | | | [place] | | | | | [address] | | + + + + + Care Team Providers + +------+ + | Care Director Of Supply Chain Name | Role | Phone | + [...] | [address] | [place] [address] | | | | | [address] | | | | | | [phone] | | | +--------+ + + + [...]
--- OUTSIDE RECORDS SUMMARY | ~2019-05-06 | XMS | Encounter Summary ---
Demographics + + + | Address | [address] | | | [place] [address] | + + + | Home Phone [...] + | Matthew Ramirez | CHRIS | [address] | | | | | [place] | | | | | [address] | | + + + + + | Nella Garland | ECON | Unknown | | + + + + + Care Team Providers + +------+ + | Care Senior Research Engineer Name | Role | Phone | [...] | | sphincter | MD Gillian | [address] | | | | | deficiency | [address] | [id number] | | | | | (ISD) | [facility] | [facility] | | | | | Urinary | Rd | [place], | | | | | stress | [place], [place] | [place] [address] | | | | | incontinence | [address] | Phone: | | | | | Procedures | Phone: | [phone] | | | | | REQUEST TO | [phone] | Fax: | | | | | SURGERY | Fax: | [phone] | | | | | PROFESSOR OF BIOCHEMISTRY | [phone] | | | | | | [place] | | | | | | | CYSTOURETHRO | | | | | | | [place] | | | | | | | [...] | | | | | | | [address] | | | | | | | [id number] | | | | | | | [facility] | | | | | | | [facility] | | | | | | | [place] [address] | | | | | | | Phone: | | | | | | | [phone] | | | | | | | Fax: | | | | | | | [phone] | +--------+--------+ + + + + Encounter Details +--------+---------+ + + + | Date | Type | Department | Care Team | Description | +--------+---------+ + + + | 10/03/ | [facility] Avis Rios | 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 Sprague and agree with health system findings and plan as documented in her [...] be found in the scanned documents in [facility]. They have also been ent ered into the [facility] database. PHYSICAL EXAM BP 160/90 | [...] see scanned report in Epic In summary: SNF 368cc with no DO; MUCP 10 cm [...] October 26 with preop October 25. TVT [id number] Patient seen and discussed with Dr. Rios. Christiana Cullen RN - 10/03/2010 11:26 AM PDTUrine dipstick ordered and pt voided 295 mL of urine. Pt prepped with betadine. 14 portuguese straight cath through pts external urethra for [...] | + +--------+ + + + | MO CYSTOMETROGRAM | Routin | 11/01/2010 | Intrinsic | | | W/POWDER SHOVELER&UP | e | 10:19 PM | sphincter deficiency | | | | | PDT | (ISD) Urinary | | | | | | stress incontinence | | + +--------+ + + + | [place] INTRAABDOMINAL | Routin | 11/01/2010 | Intrinsic | | | VOIDING PRESSURE | e | 10:19 PM | sphincter deficiency | | | STUDY,AP,GLOBAL | | PDT | (ISD) Urinary | | | | | | stress incontinence | | + +--------+ + + + | MO | Routin | 11/01/2010 | Intrinsic | | | UROFLOWMETRY,COMPLEX | e | 10:19 PM | sphincter deficiency | | | ,GLOBAL | | PDT | (ISD) Urinary | | | | | | stress incontinence | | + +--------+ + + + | [place] CYSTOMETROGRAM, | Routin | 11/01/2010 | Intrinsic | | | COMPLEX, GLOBAL | e | 10:19 PM | sphincter deficiency | | | | | PDT | (ISD) Urinary | | | | | | stress incontinence | | + +--------+ + + + | MO INTRAABDOMINAL | Routin | 11/01/2010 | Intrinsic [...] | + +--------+ + + + | [place] NURSE 2 | Routin | 10/03/2010 | [...] [place] | [address] | [place], [place] | | | [place] POINT OF CARE | [address] | [address] | | | TESTS | | | [...]
--- OUTSIDE RECORDS SUMMARY | ~2019-05-06 | XMS | Encounter Summary ---
Demographics + + + | Address | [address] | | | [place] [address] | + + + | Home Phone [...] Author | [facility] | | | and Nenoana | + + + | Organization | [facility] | | | and Nenoana [...] + | Matthew Ramirez | CHRIS | [address] | | | | | [place] | | | | | [address] | | + + + + + Care Team Providers + +------+ + | Care Lidar Analyst Name | Role | Phone | + +------+ + PCP | Unavailable | + +------+ + Encounter Details +--------+ + + + + | Date | Type | Department | Care Team | Description | +--------+ + + + + | 11/24/ | Hospital | [facility] | [place], | | | 2009 | Encounter | MED CTR GENERIC OP | Katerin Xavier MD | | | | | CONV DEPT [address] | | | | | | [place], | | | | | | [place] [address] | | | | | | [phone] | | | +--------+ + + + [...]
--- OUTSIDE RECORDS SUMMARY | ~2019-05-06 | XMS | Encounter Summary ---
Demographics + + + | Address | [address] | | | [place] [address] | + + + | Home Phone [...] | Author | [facility] | | | and Nenoana | + + + | Organization | [facility] | | | and Nenoana [...] + | Matthew Ramirez | ECON | [address] | | | | | [place] | | | | | [address] | | + + + + + Care Team Providers + +------+ + | Care Mathematical Physicist Name | Role | Phone | + [...] | | | unspecified | | [place] [address] | | | | | type | | Phone: | | | | | Chronic | | [phone] | | | | | abdominal | | Fax: | | | | | pain | | [phone] | | | | | Benzodiazepi | [...] | | | | | | NC | | | | | | | ESOPHAGOGAST | | | | | | | RODUODENOSCO | | | | | | | PY TRANSORAL | | | | | | | DIAGNOSTIC | | | | | | | NC EGD | | | | | | | TRANSORAL | | | | | | | BIOPSY | | | | | | | SINGLE/MULTI | | | | | | | PLE NC | | | | | | | COLONOSCOPY | | | | | | | FLX DX | | | | | | | W/COLLJ SPEC | | | | | | | WHEN PFRMD | | | | | | | NC | | | | | | | COLONOSCOPY | | | | | | | W/BIOPSY | | | | | | | SINGLE/MULTI | | | | | | | PLE NC | | | | | | | COLSC FLX | | | | | | | W/RMVL OF | | | | | | | TUMOR POLYP | | | | | | | LESION SNARE | | | | | | | TQ NC | | | | | | | [...] + + | 12/17/ | Surgery | [facility] | Matthew Shukla MD | EGD | | 2019 | | MED CTR MP INTRA OP | [address] | | | | | [address] | [place] | | | | | [place] | [address] | | | | | [address] | [phone] | | | | | [phone] | | | +--------+---------+ + + + [...] 12/17/2018 | [place]OVATION | | 3:06 PMMRN: [id number] #: [id number] of : | | | 1940dmit Type: [...] | | | the anesthesiologist and the electrical service technician in the pre-procedure | | | [...] PMScope Out: 3:26:19 | | | PM [facility], [address] [facility] | | | [place] [address] | | | - Await pathology results. [...] |Scope Out: 3:26:19 PM | | | [facility], [address] [place], [place] | | | [address] | | + + -+ + +---------+ + + | Performing | Address | City/State[facility] | Phone Number | | Organization [...] 12/17/2018 | [place] | | 3:04 PMMRN: [id number] #: [id number] of : | | | 1940dmit Type: AmbulatoryAge: 78Room: Endo Room 2Gender: | | | FemaleNote Status: FinalizedAttending MD: Matthew Shukla , | | | MDProcedure: ColonoscopyIndications: Abdominal | | | pain in the left upper quadrant, Hematochezia, | | | Chronic diarrhea, Weight lossProviders: Matthew Rosales | | | MD Gayla, Rina Edouard RN, Conrado Kang [facility], | | | Devon Murdock MD (Anesthesia [...] the anesthesiologist and the | | | electrical service technician in the pre-procedure area in the [...] | | | evaluated using the BBPS (Anacortes Bowel Preparation Scale) with | | | [...] PMScope Out: | | | 3:55:04 PM [facility], [address] [place] [address], | | | [place] [address] | | | - Await pathology results. [...] |Scope Out: 3:55:04 PM | | | [facility], [address] [facility], [place], [place] | | | [address] | | + + -+ + +---------+ [...] | COMMENT: A -- As part of [facility]' Quality Improvement | | | Program, this portion of the case has been reviewed by another member | | | of our pathology staff with subspecialty training in gastrointestinal | | | pathology. Results called to Dr. Shukla office [facility]) 12/24/18 | | | 10:15 AM. [...] | and its performance characteristics determined by [facility]. | | | It has not been cleared or approved by the U.S. Food and Drug | | | Administration. The FDA has determined that such clearance or | | | approval is not necessary. This test is used for clinical purposes. | | | It should not be regarded as investigational or for research. | | | [facility] is certified under the Clinical Laboratory | | | Improvement Amendments of 1988 (CLIA) as qualified to perform high | | | complexity clinical laboratory testing. PERFORMING LABORATORY: | | | The technical component was performed by [facility], [address] | | | [place] [address] (Legal Financial Specialist: Marilyn Dowell MD; | | | CLIA# [id number]). Professional interpretation was performed by | | | [facility], [facility], [address] [place] [address]. | | | [address] [place] [address] (Legal Financial Specialist: Guevara Ernandez | | | ; CLIA# [id number]). ADDITIONAL NOTES: Immunohistochemical | | | and/or in situ hybridization studies were performed on this case with | | | the appropriate positive controls that react as expected. This test | | | was developed and its performance characteristics determined by | | | [facility]. It has not been cleared or approved by the U.S. | | | Food and Drug Administration. The FDA has determined that such | | | clearance or approval is not necessary. This test is used for | | | clinical purposes. It should not be regarded as investigational or | | | for research. [facility] is certified under the Clinical | | | Laboratory Improvement Amendments of 1988 (CLIA) as qualified to | | | perform high complexity clinical laboratory testing. PERFORMING | | | LABORATORY: The technical component was performed by [facility] | | | [facility], [address] [place] [address] (Legal Financial Specialist: | | | Marilyn Dowell MD; CLIA# [id number]). Professional interpretation was | | | performed by [facility], [address] [place] | | | [place] [address] (Legal Financial Specialist: aDrien Kapoor D.O.; CLIA#: | | | [id number]). REASON FOR ADDENDUM: To add results of [...] the FDA-approved HER-2 Pathway is performed at [facility] | | | [place], [place], on accession #[id number] from at the [...] the Vysis PathVysion kit was performed at [facility] | | | [place], [place]. The assay has not been validated [...] interpretation was | | | performed by [facility], [address] [facility] | | | [place] [address] (Legal Financial Specialist: Darien Kapoor D.O.; CLIA#: | | | [id number]). Diagnostician: Guevara Ernandez MD Pathologist | | [...] [place] [facility] | | | | | [employer] | | | | + +---------+ + [...] ONCE PRN, | | | Wheezing, Starting [facility] 12/17/18 at | | | 1346, For 1 dose, Pre-op | | + +---+ | | | + +---+ | albuterol-ipratropium 2.5-0.5 | | | mg/3 mL nebulizer solution 3 mL | | | 3 mL, Nebulization, ONCE PRN, | | | Wheezing, Shortness of Breath, | | | Starting [facility] 12/17/18 at 1615, For | | [...]
--- OUTSIDE RECORDS SUMMARY | ~2019-05-06 | XMS | Encounter Summary ---
Demographics + + + | Address | [address] | | | [place] [address] | + + + | Home Phone | | + + + | Preferred Language | Unknown | + + + | Marital Status | | + + + | Synagogue Affiliation | NRP | + + + [...] + | Matthew Ramirez | CHRIS | [address] | | | | | [place] | | | | | [address] | | + + + + + | Nella Haque | ECON | Unknown | | + + + + + Care Team Providers + +------+ + | Care Plate Corrector Name | Role | Phone | + [...] | | | | ma (HCC) | [place], | | | | | | Procedures | [place] | | | | | | CT ABDOMEN | [address] | | | | | | AND PELVIS W | Phone: | | | | | | IV CONTRAST | [phone] | | | | | | | Fax: | | | | | | | [phone] | | + +--------+ + + + [...] | | | | ma (HCC) | [place], | | | | | | Procedures | [place] | | | | | | CT ABDOMEN | [address] | | | | | | AND PELVIS W | Phone: | | | | | | IV CONTRAST | [phone] | | | | | | | Fax: | | | | | | | [phone] | | + +--------+ + + + + Encounter Details +--------+ + + + + | Date | Type | Department | Care Team | Description | +--------+ + + + + | 02/02/ | Hospital | Radiology/Imaging | Cristel Galicia MD | | | 2019 | Encounter | Lab at [facility] [address] | [address] | | | | | [place] Mailcode: | [place], [place] | | | | | [address] | [address] | | | | | Health and Healing, | [phone] | | | | | [address] | | | | | | Floor [facility] [place] | | | | | | [address] | | | | | | [phone] | | | +--------+ + + + [...] nostril | | | | | | [place] | once daily. | | | | [...] + + | DANISHA FARIAS | [address] [facility] | [place] [address] | | | OF CARE TESTS | [...]
--- OUTSIDE RECORDS SUMMARY | ~2019-05-06 | XMS | Encounter Summary ---
Demographics + + + | Address | [address] | | | [place] [address] | + + + | Home Phone [...] | Author | [facility] | | | and Nenoana | + + + | Organization | [facility] [...] + | Matthew Ramirez | CHRIS | [address] | | | | | [place] | | | | | [address] | | + + + + + Care Team Providers + +------+ + | Care Foot Gatherer Name | Role | Phone | + +------+ + PCP | Unavailable | + +------+ + Encounter Details +--------+ + + + + | Date | Type | Department | Care Team | Description | +--------+ + + + + | 11/24/ | Hospital | [facility] | [place], | | | 2009 | Encounter | MED CTR GENERIC OP | Katerin Xavier MD | | | | | CONV DEPT [address] | | | | | | [address] [place], | | | | | | [place] [address] | | | | | | [phone] | | | +--------+ + + + [...]
--- OUTSIDE RECORDS SUMMARY | ~2019-05-06 | XMS | Encounter Summary ---
Demographics + + + | Address | [address] | | | [place] [address] | + + + | Home Phone [...] Author | [facility] | | | and Nenoana | + + + | Organization | [facility] | | | [...] + | Matthew Ramirez | ECON | [address] | | | | | [place] | | | | | [address] | | + + + + + Care Team Providers + +------+ + | Care Radar Engineer Name | Role | Phone | [...] | | | | | | | [place] REPAIR | | | | | | [...] HOSPITAL OR INTRA OP | [address] | MARSHA 2, 3, 4 | | | | [address] [place] | [facility], | | | | | [place], [place] | [place] [address] | | | | | [address] | [phone] | | | | | [phone] | | | +--------+---------+ + + + [...]
--- OUTSIDE RECORDS SUMMARY | ~2019-05-06 | XMS | Encounter Summary ---
Demographics + + + | Address | [address] | | | [place] [address] | + + + | Home Phone [...] [facility] | | | and Nenoana | + + + | Organization | [facility] [...] + | Matthew Ramirez | CHRIS | [address] | | | | | [place] | | | | | [address] | | + + + + + Care Team Providers + +------+ + | Care Corporate Development Manager Name | Role | Phone | + +------+ + PCP | Unavailable | + +------+ + Encounter Details +--------+ + + + + | Date | Type | Department | Care Team | Description | +--------+ + + + + | 02/02/ | Hospital | [facility] | | | | [facility] | Encounter | MED CTR MP INTRA OP | | | | | | [address] | | | | | | [place] | | | | | | [address] | | | | | | [phone] | | | +--------+ + + + [...]
--- OUTSIDE RECORDS SUMMARY | ~2019-05-06 | XMS | Encounter Summary ---
Demographics + + + | Address | [address] | | | [place] [address] | + + + | Home Phone | | + + + | Preferred Language | Unknown | + + + | Marital Status | | + + + | Anglican Affiliation | Unknown | + + + | Race | Unknown | + + + | Ethnic Group | Unknown | + + + Author + + + | Author | [facility] | | | and Nenoana | + + + | Organization | [facility] | [...] + | Matthew Ramirez | ECON | [address] | | | | | [place] | | | | | [address] | | + + + + + Care Team Providers + +------+ + | Care Dye Can Operator Name | Role | Phone | [...] | 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 | [address] [place] | | | | | adenocarcino | [address] | [place], | | | | | ma (HCC) | [address]VD | [place] [address] | | | | | Procedures | [place], [place] | Phone: | | | | | CT Chest | [address] | [phone] | | | | | Abdomen | Phone: | Fax: | | | | | Pelvis w | [phone] | [phone] | | | | | Contrast | Fax: | | | | | | CHG CT | [phone] | | | | | | SCAN,ABDOMEN | | | | | | | AND | | | | | | | PELVIS,W | | | | | | | CONTRAST ME | | | | | | | [...] | | ma (HCC) | [address] | [place] | | | | | | [place], [place] | [place], | | | | | | [address] | [place] [address] | | | | | | Phone: | Phone: | | | | | | [phone] | [phone] | | | | | | Fax: | Fax: | | | | | | [phone] | [phone] | +--------+ + + + + + Reason for Visit + + + | Reason | Comments | + + + | Results, Pathology | | + + + Encounter Details +--------+ + + + + | Date | Type | Department | Care Team | Description | +--------+ + + + + | 12/29/ | Telephone | [facility] | Matthew Shukla MD | Results, Pathology | | 2019 | | GASTROENTEROLOGY | [address] [facility] | | | | | [address] [facility] | [place], [place] | | | | | [address], [place] | [address] | | | | | [address] | [phone] | | | | | [phone] | | | +--------+ + + + [...] +--------+ + + | [facility] REFERRAL TO [facility] | Outpatient | Routin | Gastric [...]
--- OUTSIDE RECORDS SUMMARY | ~2019-05-06 | XMS | Encounter Summary ---
Demographics + + + | Address | [address] | | | [place] [address] | + + + | Home Phone | | + + + | Preferred Language | Unknown | + + + | Marital Status | | + + + | Mormonism Affiliation | Unknown | + + + | Race | Unknown | + + + | Ethnic Group | Unknown | + + + Author + + + | Author | [facility] | | | and Nenoana | + + + | Organization | [facility] | | [...] + | Matthew Ramirez | ECON | [address] | | | | | [place] | | | | | [address] | | + + + + + Care Team Providers + +------+ + | Care Chronograph Operator Name | Role | Phone | [...] | | | | | [place] REPAIR OF | | | | | [...] | | | [place], [place] | [place] [address] | | | | | [address] | [phone] | | | | | [phone] | | | +--------+---------+ + + + [...]
--- OUTSIDE RECORDS SUMMARY | ~2019-05-06 | XMS | Encounter Summary ---
Demographics + + + | Address | [address] | | | [place] [address] | + + + | Home Phone [...] | Author | [facility] | | | and Nenoana | + + + | Organization | [facility] | [...] + | Matthew Ramirez | ECON | [address] | | | | | [place] | | | | | [address] | | + + + + + Care Team Providers + +------+ + | Care Handkerchief Maker Name | Role | Phone | [...] | | | | | | | [place] REPAIR | | | | | | [...] HOSPITAL OR INTRA OP | [address] | | | | | [address] [place] | [facility] [place], | | | | | [place], [place] | [place] [address] | | | | | [address] | [phone] | | | | | [phone] | | | +--------+ + + + [...]
--- OUTSIDE RECORDS SUMMARY | ~2019-05-06 | XMS | Encounter Summary ---
Demographics + + + | Address | [address] | | | [place] [address] | + + + | Home Phone | | + + + | Preferred Language | Unknown | + + + | Marital Status | | + + + | Methodist Affiliation | Unknown | + + + | Race | Unknown | + + + | Ethnic Group | Unknown | + + + Author + + + | Author | [facility] | | | and Nenoana | + + + | Organization | [facility] | [...] + | Matthew Ramirez | ECON | [address] | | | | | [place] | | | | | [address] | | + + + + + Care Team Providers + +------+ + | Care Manager Ecommerce Name | Role | Phone | + [...] | | | | [K31.9] | | [address] Phone: | | | | | Procedures | | [phone] | | | | | [place] | | Fax: | | | | | ESOPHAGOGAST | | [phone] | | | | | RODUODENOSCO | | | | | | | PY TRANSORAL | | | | | | | DIAGNOSTIC | | | | | | | [place] EDG US | | | | | [...] INTRA OP [address] | [place] [address] | | | | | [place] | [phone] | | | | | [address] | | | | | | [phone] | | | +--------+ + + + [...] handed off to recovery nurse. VSS and kaltag airway | | | 2 | | [...] 01/13/19 1323 by | | nicolas | twgr-blf-zpyvxm catheter system; | Jacklyn Gore RN | [...]
--- OUTSIDE RECORDS SUMMARY | ~2019-05-06 | XMS | Encounter Summary ---
Demographics + + + | Address | [address] | | | [place] [address] | + + + | Home Phone [...] | Author | [facility] | | | and Nenoana | + + + | Organization | [facility] | | | and Nenoana [...] + | Matthew Ramirez | ECON | [address] | | | | | [place] | | | | | [address] | | + + + + + Care Team Providers + +------+ + | Care Manufacturing Sr Engineer Name | Role | Phone | [...] [place] | | | | | [phone] | [place] [address] | | +--------+ + + + + [...]
--- OUTSIDE RECORDS SUMMARY | ~2019-05-06 | XMS | Encounter Summary ---
Demographics + + + | Address | [address] | | | [place] [address] | + + + | Home Phone | | + + + | Preferred Language | Unknown | + + + | Marital Status | | + + + | Samaritan Affiliation | Unknown | + + + | Race | Unknown | + + + | Ethnic Group | Unknown | + + + Author + + + | Author | [facility] | | | and [place]eno[place] | + + + | Organization | [facility] | [...] + | Matthew Ramirez | ECON | [address] | | | | | [place] | | | | | [address] | | + + + + + Care Team Providers + +------+ + | Care Training And Development Officer Name | Role | Phone | [...] | | | | [K31.9] | | [address] Phone: | | | | | Procedures | | [phone] | | | | | [place] | | Fax: | | | | | ESOPHAGOGAST | | [phone] | | | | | RODUODENOSCO | | | | | | | PY TRANSORAL | | | | | | | DIAGNOSTIC | | | | | | | [place] EDG US | | | | | [...] INTRA OP [address] | [place] [address] | | | | | [place] | [phone] | | | | | [address] | | | | | | [phone] | | | +--------+ + + + [...] handed off to recovery nurse. VSS and [place] airway | | | 2 | | [...] 01/13/19 1323 by | | nicolas | voxf-jvn-intzrr catheter system; | Jacklyn Gore RN | [...]
--- OUTSIDE RECORDS SUMMARY | ~2019-05-06 | XMS | Encounter Summary ---
Demographics + + + | Address | [address] | | | [place] [address] | + + + | Home Phone [...] | Author | [facility] | | | and [place]eno[place] | + + + | Organization | [facility] | | [...] + | Matthew Ramirez | ECON | [address] | | | | | [place] | | | | | [address] | | + + + + + Care Team Providers + +------+ + | Care Claims Support Specialist Name | Role | Phone | [...] [place] | | | | | [phone] | [place] [address] | | +--------+ + + + + [...]
--- OUTSIDE RECORDS SUMMARY | ~2019-05-06 | XMS | Encounter Summary ---
Demographics + + + | Address | [address] | | | [place] [address] | + + + | Home Phone [...] | Author | [facility] | | | and Nenoana | + + + | Organization | [facility] | [...] + | Matthew Ramirez | ECON | [address] | | | | | [place] | | | | | [address] | | + + + + + Care Team Providers + +------+ + | Care Machinist Apprentice Wood Name | Role | Phone | + [...] | | | | | adenocarcino | [place], | MEDICAL | | | | | ma (HCC) | [place] | [place] [address] | | | | | Procedures | [address] | [place] | | | | | PET CT Skull | Phone: | [place], | | | | | [place] | [phone] | [place] [address] | | | | | Thigh | Fax: | Phone: | | | | | | [phone] | [phone] | | | | | | | Fax: | | | | | | | [phone] | + +--------+ + + + + [...] | | | | | adenocarcino | [place], | [facility] | | | | | ma (HCC) | [place] | [place] [address] [address] | | | | | Procedures | [address] | [place] | | | | | PET CT Skull | Phone: | [place], | | | | | [place] | [phone] | [place] [address] | | | | | Thigh | Fax: | Phone: | | | | | | [phone] | [phone] | | | | | | | Fax: | | | | | | | [phone] | + +--------+ + + + + Encounter Details +--------+ + + + + | Date | Type | Department | Care Team | Description | +--------+ + + + + | 10/ | Hospital | [facility] | Cristel Galicia MD | Tumor; Gastric | | 2019 | Encounter | MED CTR PET SCAN | [address] | adenocarcinoma (HCC) | | | | [address] | [place], [place] | | | | | [place] [address] | [address] | | | | | [phone] | [phone] | | | | | | | [...] the common bile duct. | | | Gqgo-nc-yogp and in the right aspect of L4. [...] | |dilatation of the common bile duct. Oamz-vh-sjqi and in the right aspect of L4. [...] | | of the common bile duct. Qzuf-jg-fsek and in the right aspect of L4.IMPRESSION: [...] | |dilatation of the common bile duct. Pvyo-kv-nady and in the right aspect of L4. [...]
--- OUTSIDE RECORDS SUMMARY | ~2019-05-06 | XMS | Encounter Summary ---
Demographics + + + | Address | [address] | | | [place] [address] | + + + | Home Phone | | + + + | Preferred Language | Unknown | + + + | Marital Status | | + + + | Rastafarian Affiliation | Unknown | + + + | Race | Unknown | + + + | Ethnic Group | Unknown | + + + Author + + + | Author | [facility] | | | and [place] | + + + | Organization | [facility] | [...] + | Matthew Ramirez | ECON | [address] | | | | | [place] | | | | | [address] | | + + + + + Care Team Providers + +------+ + | Care Audio Technician Name | Role | Phone | [...] + + | 01/24/ | Telephone | [facility] | Matthew Shukla MD | Results, Pathology | | 2019 | | GASTROENTEROLOGY | [address] [facility] | | | | | [address] [facility] | [place], [place] | | | | | [address] [place], [place] | [address] | | | | | [address] | [phone] | | | | | [phone] | | | +--------+ + + + [...]
--- OUTSIDE RECORDS SUMMARY | ~2019-05-06 | XMS | Encounter Summary ---
Demographics + + + | Address | [address] | | | [place] [address] | + + + | Home Phone [...] | Author | [facility] | | | and [place]enoana | + + + | Organization | [facility] | | | and [...] + | Matthew Ramirez | ECON | [address] | | | | | [place] | | | | | [address] | | + + + + + Care Team Providers + +------+ + | Care Cafe Server Name | Role | Phone | + [...] | | | | Gastric mass | [place], [place] | [place] | | | | | Procedures | [address] | [address] Phone: | | | | | Urgent- | Phone: | [phone] | | | | | EGD + EUS | [phone] | Fax: | | | | | NEXT WEEK | Fax: | [phone] | | | | | | [phone] | | +--------+ + + + + + Encounter Details +--------+ + + + + | Date | Type | Department | Care Team | Description | +--------+ + + + + | 01/06/ | Orders Only | [facility] | Matthew Shukla MD | Gastric | | 2019 | | GASTROENTEROLOGY | [address] | adenocarcinoma (HCC) | | | | [address] [facility] | [place], [place] | (Primary Dx) | | | | [address] [place] | [address] | | | | | [address] | [phone] | | | | | [phone] | | | +--------+ + + + [...] patient needed Urgent referral to [facility] for Eval Egd/EUS of gastric adenocarcinoma r/o [...] Gastroenterology | | | | | | ([place]) | | | | | + + +--------+ + + documented as of this encounter Visit Diagnoses + + | Diagnosis | + + | Gastric adenocarcinoma (HCC) - Primary Malignant neoplasm of stomach, unspecified | | site | + + documented in this encounter"
--- OUTSIDE RECORDS SUMMARY | ~2019-05-06 | XMS | Encounter Summary ---
Demographics + + + | Address | [address] | | | [place] [address] | + + + | Home Phone [...] + | Author | [facility] | | | and Nenoana | + + + | Organization | [facility] | | [...] + | Matthew Ramirez | ECON | [address] | | | | | [place] | | | | | [address] | | + + + + + Care Team Providers + +------+ + | Care Paste Mixing Supervisor Name | Role | Phone | [...] Christie FOLEY | | | | | [phone] | [place] [address] | | +--------+ + + + + [...]
--- OUTSIDE RECORDS SUMMARY | ~2019-05-06 | XMS | Encounter Summary ---
Demographics + + + | Address | [address] | | | [place] [address] | + + + | Home Phone [...] [facility] | | | and Nenoana | + + + | Organization | [facility] | [...] + | Matthew Ramirez | CHRIS | [address] | | | | | [place] | | | | | [address] | | + + + + + Care Team Providers + +------+ + | Care Medical Office Representative Name | Role | Phone | + +------+ + PCP | Unavailable | + +------+ + Encounter Details +--------+ + + + + | Date | Type | Department | Care Team | Description | +--------+ + + + + | 12/08/ | Hospital | [facility] | [place], | | | 2009 | Encounter | MED CTR GENERIC OP | Katerin Xavier MD | | | | | CONV DEPT [address] | | | | | | [place], | | | | | | [place] [address] | | | | | | [phone] | | | +--------+ + + + [...]
--- OUTSIDE RECORDS SUMMARY | ~2019-05-06 | XMS | Encounter Summary ---
Demographics + + + | Address | [address] | | | [place] [address] | + + + | Home Phone [...] | Author | [facility] | | | and Nenoana | + + + | Organization | [facility] | [...] + | Matthew Ramirez | ECON | [address] | | | | | [place] | | | | | [address] | | + + + + + Care Team Providers + +------+ + | Care Trekking Guide Name | Role | Phone | + [...] [address] | [address] [place], | | | | | [facility], [place] | [place] [address] | | | | | [address] | [phone] | | | | | [phone] | | | +--------+ + + + [...] Everywhere.Foot Surgery: Maurice pace Fifth Toe ([place])Foot Surgery: Flexible and Rigid Hammertoes ([place])Mallet, Hammer , and Claw Toes, Treating ([place])Mallet, Hammer, and Claw Toes, What Are ([place])document ed in this encounter Medications at Time [...]
--- OUTSIDE RECORDS SUMMARY | ~2019-05-06 | XMS | Encounter Summary ---
Demographics + + + | Address | [address] | | | [place] [address] | + + + | Home Phone [...] + | Matthew Ramirez | ECON | [address] | | | | | [place] | | | | | [address] | | + + + + + | Nella Haque | ECON | Unknown | | + + + + + Care Team Providers + +------+ + | Care Insurance Territory Manager Name | Role | Phone | [...]
--- OUTSIDE RECORDS SUMMARY | ~2019-05-06 | XMS | Encounter Summary ---
Demographics + + + | Address | [address] | | | [place] [address] | + + + | Home Phone [...] | Author | [facility] | | | and Nenoana | + + + | Organization | [facility] | | | and Nenoana [...] + | Matthew Ramirez | ECON | [address] | | | | | [place] | | | | | [address] | | + + + + + Care Team Providers + +------+ + | Care Typing Bookkeeper Name | Role | Phone | + [...] + + | 01/24/ | Telephone | [facility] | Matthew Shukla MD | Results, Pathology | | 2019 | | GASTROENTEROLOGY | [address] [facility] | | | | | [address] [facility] | [place], [place] | | | | | [address] [place], [place] | [address] | | | | | [address] | [phone] | | | | | [phone] | | | +--------+ + + + [...]
--- OUTSIDE RECORDS SUMMARY | ~2019-05-06 | XMS | Encounter Summary ---
Demographics + + + | Address | [address] | | | [place] [address] | + + + | Home Phone | | + + + | Preferred Language | Unknown | + + + | Marital Status | | + + + | Bahai Affiliation | Unknown | + + + | Race | Unknown | + + + | Ethnic Group | Unknown | + + + Author + + + | Author | [facility] | | | and [place]enoana | + + + | Organization | [facility] | | | and Nenoana | [...] + | Matthew Ramirez | CHRIS | [address] | | | | | [place] | | | | | [address] | | + + + + + Care Team Providers + +------+ + | Care Grade Tamper Name | Role | Phone | + +------+ + PCP | Unavailable | + +------+ + Encounter Details +--------+ + + + + | Date | Type | Department | Care Team | Description | +--------+ + + + + | 12/30/ | Hospital | [facility] | | | | 2001 | Encounter | MED CTR XRAY [address] | | | | | | [place] | | | | | | [place] [address] | | | | | | [phone] | | | +--------+ + + + [...]
--- OUTSIDE RECORDS SUMMARY | ~2019-05-06 | XMS | Encounter Summary ---
Demographics + + + | Address | [address] | | | [place] [address] | + + + | Home Phone [...] + | Matthew Ramirez | CHRIS | [address] | | | | | [place] | | | | | [address] | | + + + + + | Nella Haque | ECON | Unknown | | + + + + + Care Team Providers + +------+ + | Care Production Packager Name | Role | Phone | [...] | | 2010 | | [facility] | MD Gillian [address] | | | | | [address] | [facility] [address] | | | | | [address] | [place], [place] | | | | | /[id number] [facility] | [address] | | | | | [facility], | [phone] | | | | | [place] [address] | | | | | | [phone] | | | +--------+ + + + [...]
--- OUTSIDE RECORDS SUMMARY | ~2019-05-06 | XMS | Encounter Summary ---
Demographics + + + | Address | [address] | | | [place] [address] | + + + | Home Phone | | + + + | Preferred Language | Unknown | + + + | Marital Status | | + + + | Samaritan Affiliation | NRP | + + + | Race | White | + + + | Ethnic Group | Not or | + + + Author + + + | Author | [facility] | + + + | Organization | [facility] | + + + | Address | Unknown | + + + | Phone | Unavailable | + + + Support + + + + + | Name | Relationship | Address | Phone | + + + + + | Matthew Ramirez | CHRIS | [address] | | | | | [place] | | | | | [address] | | + + + + + | Nella Haque | ECON | Unknown | | + + + + + Care Team Providers + +------+ + | Care Watcher Lookout Tower Name | Role | Phone | + [...] Visit | Medicine Clinic at | T, DISCOVERY GUIDE-C,MPH | Preop examination; | | | | [facility] 4th Floor [address] | | Diabetes mellitus | | | | [address] | | screening; Other | | | | Mailcode: CH4S | | specified | | | | [facility] | | pre-operative | | | | and Healing, | | examination | | | | Building 1,4th Floor | | | | | | [place], [place] | | | | | | [address] | | | | | | [phone] | | | +--------+---------+ + + + [...] % (0.1 mg/g) Vaginal Cream folic acid Osxemrrxgij-Asrxhixmu-Cyp C-Mn (GLUCOSAMINE CHONDROITIN MAXSTR)- HOLD 7 days [...] OR NON-STEROIDAL ANTI-INFLAMMATORY DRUGS (NSAIDs) Advil, Aleve, Roxanne-Whitehouse, Anacin, Arthopan, Ascriptin, Aspergum, Aspirin with and [...] Phenylbutazone, Piroxicam, Propoxyphene, Relafen, Robomol, Rufen, Sine-aid, [place] s cold tablets, Sulindac, Talwin, Tolectin, Triaminicin, [...] perfume, lotions or powder. Remove any nail ukrainian from at least one fingernail. Do not [...] Surgery Check in Locations Day Stay Unit [phone], [facility], fourth floor Room 4516 Surgery Check in Time Check-in times for Hospital Admissions are not available until the day prior to surgery. So meone from your surgeon's office or the hospital will contact you with your check in time. I f you do not hear from anyone by 3:00 PM please call your surgeons' office for [id number] . Going Home Your surgeon will decide [...] it is after office hours, call the [facility] radial drill press operator for plastic at [phone] and ask them to page your doc [...] Scanned H&P. H and P entered into [employer](Chart review, Media tab). Vy Sosa RN, KAELA, MPH PREOPERATIVE MEDICINE CLINIC [address] Mail Code: [facility],4th [facility] [address] documente d in this encounter Plan of Treatment Not on filedocumented as of this encounter Procedures + +--------+ + + + | Procedure Name | Priori | Date/Time | Associated Diagnosis | Comments | | | ty | | | | + +--------+ + + + | [place] COLLECTION VENOUS | Routin | 10/25/2010 | [...] POINT | [address] | [place] [address] | | | OF CARE TESTS | [...] | | | DEPARTMENT | | | MALAGASY | | | OF | | | [...] DEPARTMENT | [address] | [place] [address] | | | PATHOLOGY | [address] [...] DEPARTMENT OF | [address] | [place] [address] | | | PATHOLOGY | [address] [...] | + + + + + | [facility] DEPARTMENT OF | [address] | [place] [address] | | | PATHOLOGY | [address] [...]
--- OUTSIDE RECORDS SUMMARY | ~2019-05-06 | XMS | Encounter Summary ---
Demographics + + + | Address | [address] | | | [place] [address] | + + + | Home Phone [...] + | Author | [facility] | | | and Nenoana | + + + | Organization | [facility] | | | [...] + | Matthew Ramirez | ECON | [address] | | | | | [place] | | | | | [address] | | + + + + + Care Team Providers + +------+ + | Care Building Construction Engineer Name | Role | Phone | [...] | HOSPITAL [facility] INTRA OP | D, RESEARCH AND DEVELOPMENT SPECIALIST [address] | | | | | [address] | [place], [place] | | | | | [place], [place] | [address] | | | | | [address] | | | | | | [phone] | | | +--------+ + + + + Anesthesia Record + + + + + | Procedure Name | Responsible | Anesthesia Start | Anesthesia Stop Time | | | Anesthesiologist | Time | | + + + + + | Correction Josué | Luz Farias, | 03/06/17 1119 | 10/26/17 1228 | | Toes 2nd , 3rd, and | RESEARCH AND DEVELOPMENT SPECIALIST | | | | 4th Toes (Right [...] | 2 | | [facility]. | | | 7 [...] | Jacklyn Dominguez | | IV | qfax-oxd-bxmtue catheter system; | | VIRI Barillas | [...] | | | | | CONTINUOUS, Starting [facility] 03/06/17 | | AM PDT | [...]
--- OUTSIDE RECORDS SUMMARY | ~2019-05-06 | XMS | Encounter Summary ---
Demographics + + + | Address | [address] | | | [place] [address] | + + + | Home Phone [...] | Author | [facility] | | | and [place]enoana | + + + | Organization | [facility] [...] + | Matthew Ramirez | ECON | [address] | | | | | [place] | | | | | [address] | | + + + + + Care Team Providers + +------+ + | Care Avian Keeper Name | Role | Phone | [...] + + | 01/20/ | Telephone | [facility] | Matthew Shukla MD | Results, Pathology | | 2019 | | GASTROENTEROLOGY | [address] [facility] | | | | | [address] [facility] | [place], [place] | | | | | [address] [place], [place] | [address] | | | | | [address] | [phone] | | | | | [phone] | | | +--------+ + + + [...]
--- OUTSIDE RECORDS SUMMARY | ~2019-05-06 | XMS | Encounter Summary ---
Demographics + + + | Address | [address] | | | [place] [address] | + + + | Home Phone [...] | Author | [facility] | | | and Nenoana | + + + | Organization | [facility] | | [...] + | Matthew Ramirez | ECON | [address] | | | | | [place] | | | | | [address] | | + + + + + Care Team Providers + +------+ + | Care Control Equipment Electrician Name | Role | Phone | + [...] Christie FOLEY | | | | | [phone] | [place] [address] | | +--------+ + + + + [...]
--- OUTSIDE RECORDS SUMMARY | ~2019-05-06 | XMS | Encounter Summary ---
Demographics + + + | Address | [address] | | | [place] [address] | + + + | Home Phone [...] + + + | Author | [facility] | + + + | Organization | [facility] | + + + | Address | Unknown | + + + | Phone | Unavailable | + + + Support + + + + + | Name | Relationship | Address | Phone | + + + + + | Matthew Ramirez | CHRIS | [address] | | | | | [place] | | | | | [address] | | + + + + + | Nella Haque | ECON | Unknown | | + + + + + Care Team Providers + +------+ + | Care Forest Manager Name | Role | Phone | [...] | | | | | adenocarcino | [facility], | | | | | | ma (HCC) | [place] | | | | | | Procedures | [address] | | | | | | PET CT SKULL | Phone: | | | | | | BASE TO | [phone] | | | | | | MID-THIGHS | Fax: | | | | | | | [phone] | | + +--------+ + + + [...] | | | | [address] | [facility], [place] | | | | | | [address] | [address] | | | | | | [place], | Phone: | | | | | | [place] [address] | [phone] | | | | | | Phone: | Fax: | | | | | | [phone] | [phone] | | | | | | Fax: | | | | | | | [phone] | | + +--------+ + + + + Encounter Details +--------+---------+ + + + | Date | Type | Department | Care Team | Description | +--------+---------+ + + + | 02/03/ | Office | Surgical Oncology | Cristel Galicia MD | Gastric | | 2019 | Visit | at [facility] [address] | [address] | adenocarcinoma (HCC) | | | | [address] Mail Code: | [place], [place] | (Primary Dx); Tumor | | | | [place] [facility] | [address] | | | | | and Healing, | [phone] | | | | | Building 2 | | | | | | [place], [place] | | | | | | [address] | | | | | | [phone] | | | +--------+---------+ + + + [...] obtain PET scan at local facility in [place]. Please contact Nelli Vaca, Nurse Coordinator for Dr. Cristel Galicia, with any questions at [phone]. We encourage all of our patients to sign up and use [employer] for communication . Please note: I am out of the office on Mondays and unable to monitor voicemail or email. If you need to get ahold of someone urgently, please call [phone]. documented in this encounter Progress Notes Cristel Galicia MD - 02/03/2019 9:00 AM PDTATTENDING PHYSICIAN STATEMENT AND SUMMARY This note has been dictated using [email or web address] voice recognition software. I saw Ashly Ramirez [...] will byrnes ve her set up in [facility], I will discuss her case when these results are avai lable in our multidisciplinary GI tumor board, and then contact the patient and a local [facility] oncologist with any treatment recommendations. RECOMMENDATIONS 1. PET CT scan to be ordered and performed in [facility]. 2. We will discuss her case in [...] o their satisfaction. Cristel Galicia MD, MPH filling station laborer Division of Surgical Oncology [facility] [place], [place] Zac, Desmond Kaur MD - 9:00 AM PDT 02/03/2019 Surgical Oncology Clinic New Patient Consultation--Gastric Cancer Referring Physician: Dr. Luis Antony Reason for consultation: Newly diagnosed gastric adenocarcinoma (This note is structured to facilitate communication among oncology providers) PLAN TODAY: 1. Return to clinic after discussion at tumor board. 2. Return to [facility] for EGD with biopsies for disease surveillance 3. Will need a PET/CT scan 4. Will present case and discuss in upcoming Multi-Disciplinary Tumor board and contact pat ient with recommendations. 5. Solid tumor Gene Trails 6. Follow up [facility] path review of outside records ONCOLOGIC HISTORY [...] gastric adeno carcinoma. She subsequently went to [place] and underwent and EUS with Dr. Stevenson [...] and hematochezia. 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 Currently, she is functionally good allowing [...] Ramirez case will be discussed at the [facility] Multidisciplinary Gastrointestinal Cancer Conference which includes representatives [...] individualized evelia tment. Desmond Voss MD R1 [facility] General Surgery documented in this enc ounter [...] + | | | + + + [facility]EL (01/13/2019 12:45 PM [...] | [facility] | | | TESTED | [id number] E1 labeled as | | DIAGNOSTIC | [...] | | | | | | is healthcare representative of | | | | | | this tumor, we would | | | | | | welcome the opportunity | | | | | | to examine it. | | | | + + + + + + | DISCLAIMER | This test was developed | | [facility] | | | | and its performance | | DIAGNOSTIC | | | | characteristics | | | | | | determined by the [facility] | | LABORATORIE | | | | [facility] | | S | [...] of | | | | | | [place] under CLIA and | | | | | | are accredited by the | | | | | | [employer] | | | | | | Pathologists (CAP). | | | | | | [place]: | | | | | | [place] [...] + + + + | PINKY | [address] | [place] [address] | | | DIAGNOSTIC | [address] [...]
--- OUTSIDE RECORDS SUMMARY | ~2019-05-06 | XMS | Encounter Summary ---
Demographics + + + | Address | [address] | | | [place] [address] | + + + | Home Phone [...] + | Matthew Ramirez | CHRIS | [address] | | | | | [place] | | | | | [address] | | + + + + + | Nella Haque | ECON | Unknown | | + + + + + Care Team Providers + +------+ + | Care Medical Education Coordinator Name | Role | Phone | [...] Visit | Medicine Clinic at | T, HEAVY LIFT RIGGER-C,MPH | Preop examination; | | | | [facility] 4th Floor [address] | | Diabetes mellitus | | | | [address] | | screening; Other | | | | Mailcode: CH4S | | specified | | | | [facility] | | pre-operative | | | | and Healing, | | examination | | | | Building 1,4th Floor | | | | | | [place], [place] | | | | | | [address] | | | | | | [phone] | | | +--------+---------+ + + + [...] % (0.1 mg/g) Vaginal Cream folic acid Cdruovribvh-Pzyglizop-Rkr C-Mn (GLUCOSAMINE CHONDROITIN MAXSTR)- HOLD 7 days [...] OR NON-STEROIDAL ANTI-INFLAMMATORY DRUGS (NSAIDs) Advil, Aleve, Roxanne-[place], Anacin, Arthopan, Ascriptin, Aspergum, Aspirin with and [...] Phenylbutazone, Piroxicam, Propoxyphene, Relafen, Robomol, Rufen, Sine-aid, [place] s cold tablets, Sulindac, Talwin, Tolectin, Triaminicin, [...] perfume, lotions or powder. Remove any nail tamazight from at least one fingernail. Do not [...] Surgery Check in Locations Day Stay Unit [phone], [facility], fourth floor Room 451 Surgery Check in Time Check-in times for Hospital Admissions are not available until the day prior to surgery. So meone from your surgeon's office or the hospital will contact you with your check in time. I f you do not hear from anyone by 3:00 PM please call your surgeons' office for [id number] . Going Home Your surgeon will decide [...] is after office hours, call the [facility] bark press operator at [phone] and ask them to page your doc [...] Scanned H&P. H and P entered into [employer](Chart review, Media tab). Vy Sosa RN, KAELA, MPH PREOPERATIVE MEDICINE CLINIC [address] Mail Code: [facility],4th [facility] [address] documente d in this encounter Plan of Treatment Not on filedocumented as of this encounter Procedures + +--------+ + + + | Procedure Name | Priori | Date/Time | Associated Diagnosis | Comments | | | ty | | | | + +--------+ + + + | [place] COLLECTION VENOUS | Routin | 10/25/2010 | [...] POINT | [address] | [place] [address] | | | OF CARE TESTS | [...] | | | DEPARTMENT | | | [place] | | | OF | | | [...] DEPARTMENT | [address] | [place] [address] | | | PATHOLOGY | [address] [...] DEPARTMENT OF | [address] | [place] [address] | | | PATHOLOGY | [address] [...] + + + + + | [facility] DEPARTMENT OF | [address] | [place] [address] | | | PATHOLOGY | [address] [...]
--- OUTSIDE RECORDS SUMMARY | ~2019-05-06 | XMS | Encounter Summary ---
Demographics + + + | Address | [address] | | | [place] [address] | + + + | Home Phone [...] | Author | [facility] | | | and [place] | + + + | Organization | [facility] | | [...] + | Matthew Ramirez | ECON | [address] | | | | | [place] | | | | | [address] | | + + + + + Care Team Providers + +------+ + | Care Media Arts Professor Name | Role | Phone | [...] | 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 | [address] | | | | | adenocarcino | [address] | [place], | | | | | ma (HCC) | [address] | [place] [address] | | | | | Procedures | [place], [place] | Phone: | | | | | CT Chest | [address] | [phone] | | | | | Abdomen | Phone: | Fax: | | | | | Pelvis w | [phone] | [phone] | | | | | Contrast | Fax: | | | | | | CHG CT | [phone] | | | | | | SCAN,ABDOMEN | | | | | | | AND | | | | | | | PELVIS,W | | | | | | | CONTRAST NH | | | | | | | [...] | 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 | [address] | | | | | adenocarcino | [address] | [place], | | | | | ma (HCC) | [address] | [place] [address] | | | | | Procedures | [place], [place] | Phone: | | | | | CT Chest | [address] | [phone] | | | | | Abdomen | Phone: | Fax: | | | | | Pelvis w | [phone] | [phone] | | | | | Contrast | Fax: | | | | | | CHG CT | [phone] | | | | | | SCAN,ABDOMEN | | | | | | | AND | | | | | | | PELVIS,W | | | | | | | CONTRAST NH | | | | | | | CAT SCAN OF | | | | | | | CHEST | | | | | | | CONTRAST | | | +--------+--------+ + + + + Encounter Details +--------+ + + + + | Date | Type | Department | Care Team | Description | +--------+ + + + + | 12/31/ | Hospital | [facility] | Matthew Shukla MD | Gastric | | 2019 | Encounter | MED CTR [address] | [address] | adenocarcinoma (HCC) | | | | [address] [place], | [place], [place] | | | | | [place] [address] | [address] | | | | | [phone] | [phone] | | | | | | | [...]
--- OUTSIDE RECORDS SUMMARY | ~2019-05-06 | XMS | Clinical Summary ---
Demographics + + + | Address | [address] | | | [place] [address] | + + + | Home Phone [...] | Author | [facility] | | | and Nenoana | + + + | Organization | [facility] | | | and Nenoana [...] + | Matthew Ramirez | ECON | [address] | | | | | [place] | | | | | [address] | | + + + + + Care Team Providers + +------+ + | Care Aligner Typewriter Name | Role | Phone | + [...] 2003.2. Screening | | colonoscopy in 2009 ([facility]) notable for polyps.3. Chronic | | abdominal pain, evaluated by Dr. Julien Francisco in 2015. Colonoscopy | | on October 30, 2015 ([facility]) was notable for 3 tubular adenomas and | | one hyperplastic polyp.4. Repeat colonoscopy January 26, 2018 | | ([facility]) notable for a tubular adenoma.5. Admit [facility], October 18, 2017 | | for partial small bowel obstruction. CT scan of abdomen/pelvis | | with contrast demonstrated small bowel obstruction. Symptoms | | resolved with conservative management.6. Presentation on July | | 2018 with abdominal pain, nausea and one episode of vomiting. | | CT abdomen/pelvis with contrast August 05, [address] [place] | | [facility] in [facility] demonstrated no acute inflammatory | | changes in the abdomen or pelvis.7. EGD/ Colonoscopy with random | | biopsies by Dr. Shukla, [facility] on December 17, 2018; Specimen # | | [id number] ([id number]). "A-Mucosa, stomach, | | biopsy-infiltrating gastric adenocarcinoma." Specimens | | B-duodenum, C-antrum, D-gastroesophageal junction, E-ascending | | colon, F-transverse colon, G-descending colon, and H, sigmoid | | colon were all negative for invasive malignancy.8. CT | | chest/abdomen/pelvis on December 31, 2018; No concerning gastric | | mass, no findings to suggest metastatic disease. Last Assessment | | & Plan: Ashly Ramirez is referred by Matthew Shukla Md | | [address] [place] [address] for evaluation | | and management of gastric adenocarcinoma.I met with Ashly and her | | daughter Nella, on 01/05/2019 at the [facility] | | Cancer Center. The patient's history includes chronic abdominal | | pain.Surgical history includes TEODORA/BSO for cervical cancer.Family | | history is notable for a daughter with breast cancer age 61, and | | a sister with bilateral breast cancer.Review of systems is | | notable for weight loss.Clinical exam is negative for | | sarcopenia.Laboratory exam is negative for anemia.Imaging is | | negative for metastatic disease.Assessment: gastric | | adenocarcinoma. Consider linitis plastica. Consider Brca-related | | biology.Plan; Case was discussed extensively with Dr. Shukla, who | | affirms that there was no evidence for gastric mass or ulcer and | | that the biopsy of the stomach was random. Dr. Shukla also | | reported that he discussed the pathological findings with Dr. | | Guevara Ernandez at [facility], who affirmed that the biopsy could be | | consistent with Linitis Plastica. Dr. Shukla agreed that the lack | | of endoscopic or radiographic findings is atypical and agreed | | that endoscopic ultrasound is indicated for further evaluation. | | Dr. Shukla' office will co-ordinate endoscopic ultrasound with | | [facility] in [place]. I will follow up with | | Ashly Ramirez after her next procedure to review the results | | and to establish a plan of management. | + + + + + | Rectal bleeding | 12/16/2018 | + + + + + | Overview: Added automatically from request for surgery | | [id number] | + + + + + | Diarrhea, unspecified type | 12/16/2018 | + + + + + | Overview: Added automatically from request for surgery | | [id number] | + + + + + | Chronic abdominal pain | 12/16/2018 | + + + + + | Overview: Added automatically from request for surgery | | [id number] | + + + + + | Benzodiazepine dependence | 12/16/2018 | + + + + + | Overview: Added automatically from request for surgery | | [id number] | + + + + + | Narcotic dependence, episodic use | 12/16/2018 | + + + + + | Overview: Added automatically from request for surgery | | [id number] | + + + + + | LUQ pain | 12/16/2018 | + + + + + | Overview: Added automatically from request for surgery | | [id number] | + + + + + | Alternating constipation and diarrhea | 12/16/2018 | + + + + + | Overview: Added automatically from request for surgery | | [id number] | + + + + + | Hematochezia | 12/16/2018 | + + + + + | Overview: Added automatically from request for surgery | | [id number] | + + + + + | Weight loss, unintentional | 12/16/2018 | + + + + + | Overview: Added automatically from request for surgery | | [id number] | + + + + + | [...] + + | 03/18/ | Telephone | Oncology | [facility], | Coordination Of Care | | 2018 | | | Luis Richards MD | | +--------+ + + + + | 02/18/ | Hospital | Radiology | Cristel Galicia MD | Tumor; Gastric | | 2018 | Encounter | | | adenocarcinoma (HCC) | +--------+ + + + + [...] | + + + + | INFLUENZA, [id number], | 04/29/2009 | | | UNSPECIFIED | [...] + + + + | Vaccine: Zoster (2 | | 01/07/2019 | | | of 2) | 9 | | | + + [...] | Left: | CONMED | | | [id number] | | on 07/04/2017 by Prakash, | | Toe | JOHN- 25052 | | | [id number] | | Jose Sanon DPM at [facility] | | | | | | /[address] | | [facility] | | | | | | 009833 | | | | | | | | 495040 | | | | | | | | 231229 | | | | | | | | 178399 | | | | | | | | 970445 | | | | | | | | | | | | | | | | /08979 | | | | | | | | 6 | + +------+--------+ +--------+--------+--------+ | .045 C-WireImplanted: Qty: 1 | | Left: | CONMED | | | [id number] | | on 07/04/2017 by Prakash, | | Toe | CONMED | | | [id number] | | Jose Sanon DPM at [facility] | | | JOHN. | | | /76146 | | [facility] | | | | | | 179452 | | | | | | | | 234408 | | | | | | | | 041118 | | | | | | | | 022290 | | | | | | | | 315083 | | | | | | | | | | | | | | | | /88460 | | | | | | | | 7 | + +------+--------+ +--------+--------+--------+ | .045 C-WireImplanted: Qty: 1 | | Left: | CONMED | | | [id number] | | on 07/04/2017 by Prakash | | Toe | CONMED | | | 31569 | | Jose Sanon DPM at [facility] | | | JOHN. | | | /63909 | | [facility] | | | | | | 102724 | | | | | | | | 638220 | | | | | | | | 479018 | | | | | | | | 547570 | | | | | | | | 814386 | | | | | | | | | | | | | | | | /99095 | | | | | | | | 6 | + +------+--------+ +--------+--------+--------+ | Pip DartImplanted: Qty: 1 on | | Right: | ARTHREX | | 06/11/ | AR-415 | | 02/13/2018 by Jose Randall | | Toe | ARTHREX | | 2021 | 5PS-30 | Beverley Sanon DPM at [facility] | | | INC. | | | 10 | | [facility] | | | | | | /+$$80 | | | | | | | | [id number] | | | | | | | | 059760 | | | | | | | | 77U | | | | | | | | /90876 | | | | | | | | 817 | + +------+--------+ +--------+--------+--------+ | Pip Dart Implanted: Qty: 1 on | | Right: | ARTHREX | | 11/08/ | AR-415 | | 02/13/2018 by Prakash, | | Toe | ARTHREX | | 2022 | 4PS-30 | | Jose Sanon DPM at [facility] | | | INC. | | | 10 | | [facility] | | | | | | /+$$80 | | | | | | | | [id number] | | | | | | | | 637636 | | | | | | | | 47$ | | | | | | | | /99495 | | | | | | | [...] Toe | ARTHREX | | 2020 | /[id number] | | Qty: 1 on 02/13/2018 at [facility] | | | INC. | | | [id number] | | [facility] | | | | | | 394119 | | | | | | | | 457511 | | | | | | | | 777139 | | | | | | | | 716650 | | | | | | | | 761 | | | | | | | | /47611 | | | | | | | [...] the common bile duct. | | | Swni-sc-riyp and in the right aspect of L4. [...] | |dilatation of the common bile duct. Gxlz-ve-tpgy and in the right aspect of L4. [...] | | of the common bile duct. Kqwl-tw-bbba and in the right aspect of L4.IMPRESSION: [...] | |dilatation of the common bile duct. Bypu-zm-tsnf and in the right aspect of L4. [...] + +--------+ | MEDICARE | MEDICA | [id number] | 10/11/19 | [phone] | | Medica | | | RE | | 04-Pre | 5 | | re | | | PART A | | sent | | | | | | AND B | | | | | | + +--------+ +--------+ + +--------+ | MODA | MODA | [id number] | 05/12/19 | [id number] | [address] | Indemn | | | HEALTH | | 17-Pre | 9 | [phone] | ity | | | MDCR | | sent | | [place], | | | | [place] | | | | [place] [address] | | + +--------+ +--------+ + +--------+ | MEDICARE | MEDICA | [id number] | 10/11/19 | [phone] | | Medica | | | RE | | 04-Pre | 5 | | re | | | PART A | | sent | | | | | | AND B | | | | | | + +--------+ +--------+ + +--------+ | MODA | MODA | [id number] | 05/12/19 | [id number] | [address] | Indemn | | | HEALTH | | 19-Pre | 9 | [phone] | ity | | | MDCR | | sent | | [place], | | | | [place] | | | | [place] [address] | | + +--------+ +--------+ + +--------+ + +--------+ +--------+ + + | Guarantor Name | Accoun | Relation to | Date | Phone | Billing Address | | | t Type | Patient | of | | | | | | | | | | + +--------+ +--------+ + + | Ashly Ramirez | Person | Self | [birth year] | [address] | | | al/Fam | | 1941 | [phone] | [place], [place] | | | amrik | | | 9 (Home) | [address] | + +--------+ +--------+ + + | Ashly Ramirez | Person | Self | [birth year] | | [address] | | | al/Fam | | 1941 | [phone] | [place], [place] | | | amrik | | | 9 (Home) | [address] | + +--------+ +--------+ + + Advance Directives + + + + + | Type | Date Recorded | Patient | Explanation | | | | Email Campaign Manager | | + + + + + | Power of | | | | | Hide Puller | | | | + + + [...]
--- OUTSIDE RECORDS SUMMARY | ~2019-05-06 | XMS | Encounter Summary ---
Demographics + + + | Address | [address] | | | [place] [address] | + + + | Home Phone [...] Author | [facility] | | | and Nenoana | + + + | Organization | [facility] | | | and Nenoana [...] + | Matthew Ramirez | ECON | [address] | | | | | [place] | | | | | [address] | | + + + + + Care Team Providers + +------+ + | Care Benzene Still Utility Operator Name | Role | Phone | [...] + + | 12/18/ | Telephone | [facility] | Matthew Shukla MD | Sore Throat | | 2019 | | GASTROENTEROLOGY | [address] [facility] | | | | | [address] [facility] | [place], [place] | | | | | [address] [place], [place] | [address] | | | | | [address] | [phone] | | | | | [phone] | | | +--------+ + + + [...]
--- OUTSIDE RECORDS SUMMARY | ~2019-05-06 | XMS | Encounter Summary ---
Demographics + + + | Address | [address] | | | [place] [address] | + + + | Home Phone [...] + | Matthew Ramirez | CHRIS | [address] | | | | | [place] | | | | | [address] | | + + + + + | Nella Haque | ECON | Unknown | | + + + + + Care Team Providers + +------+ + | Care Wrap Turner Name | Role | Phone | + [...] | | | | | | | [address] | | | | | | | [id number] | | | | | | | [facility] | | | | | | | [place], | | | | | | | [place] [address] | | | | | | | Phone: | | | | | | | [phone] | | | | | | | Fax: | | | | | | | [phone] | +--------+--------+ + + + + Encounter [...] [address] | | | | | [address] | [place], [place] | | | | | [id number] [facility] | [address] | | | | | [facility], | [phone] | | | | | [place] [address] | | | | | | [phone] | | | +--------+ + + + [...]
--- OUTSIDE RECORDS SUMMARY | ~2019-05-06 | XMS | Encounter Summary ---
Demographics + + + | Address | [address] | | | [place] [address] | + + + | Home Phone [...] | Author | [facility] | | | and Nenoana | + + + | Organization | [facility] | | [...] + | Matthew Ramirez | ECON | [address] | | | | | [place] | | | | | [address] | | + + + + + Care Team Providers + +------+ + | Care Inbound Ingredient Logistics Specialist Name | Role | Phone | [...] + + | 01/15/ | Telephone | [facility] | [facility], | Patient Concerns | | 2019 | | [facility] | Luis Richards MD [address] | | | | | [facility] [address] | [facility] | | | | | [address] | [place] [address] | | | | | [place] [address] | [phone] | | | | | [phone] | | | +--------+ + + + [...]
--- OUTSIDE RECORDS SUMMARY | ~2019-05-06 | XMS | Encounter Summary ---
Demographics + + + | Address | [address] | | | [place] [address] | + + + | Home Phone [...] + | Matthew Ramirez | CHRIS | [address] | | | | | [place] | | | | | [address] | | + + + + + | Nella Garland | ECON | Unknown | | + + + + + Care Team Providers + +------+ + | Care Television Analyzer Name | Role | Phone | + [...] | | | | CONSULT TO | [facility], | Mailcode: | | | | | HEMATOLOGY / | [place] | [facility] | | | | | ONCOLOGY | [address] | Health and | | | | | PRACTICE | Phone: | Healing, | | | | | | [phone] | [address] | | | | | | Fax: | [place], [place] | | | | | | [phone] | [address] | | | | | | | Phone: | | | | | | | [phone] | | | | | | | Fax: | | | | | | | [phone] | + +---------+ + + + + Encounter Details +--------+ + + + + | Date | Type | Department | Care Team | Description | +--------+ + + + + | 10/24/ | Auto Body [employer]airer [employer] | Surgical Oncology | Cristel Galicia MD | Tumor (Primary Dx) | | 2019 | | at [facility] [address] | [address] | | | | | [address] Mail Code: | [place], [place] | | | | | [facility] | [address] | | | | | and Healing, | [phone] | | | | | [address] | | | | | | [place], [place] | | | | | | [address] | | | | | | [phone] | | | +--------+ + + + [...]
--- OUTSIDE RECORDS SUMMARY | ~2019-05-06 | XMS | Encounter Summary ---
Demographics + + + | Address | [address] | | | [place] [address] | + + + | Home Phone [...] + | Matthew Ramirez | CHRIS | [address] | | | | | [place] | | | | | [address] | | + + + + + | Nella Lowery ECON | Unknown | | + + + + + Care Team Providers + +------+ + | Care Bearing Machine Operator Name | Role | Phone [...] | Requisition | [address] | [address] | | | | | [address] [place], [place] | [place], [place] | | | | | [address] | [address] | | | | | | [phone] | | | | | | | [...]
--- OUTSIDE RECORDS SUMMARY | ~2019-05-06 | XMS | Encounter Summary ---
Demographics + + + | Address | [address] | | | [place] [address] | + + + | Home Phone | | + + + | Preferred Language | Unknown | + + + | Marital Status | | + + + | Christian Affiliation | NRP | + + + [...] + | Matthew Ramirez | CHRIS | [address] | | | | | [place] | | | | | [address] | | + + + + + | Nella Lowery ECON | Unknown | | + + + + + Care Team Providers + +------+ + | Care Wardrobe Specialist Name | Role | Phone | [...] | | [address] Mail Code: | [place], [place] | | | | | [facility] | [address] | | | | | and Healing, | [phone] | | | | | [address] | | | | | | [place], [place] | | | | | | [address] | | | | | | [phone] | | | +--------+ + + + [...]
--- OUTSIDE RECORDS SUMMARY | ~2019-05-06 | XMS | Encounter Summary ---
Demographics + + + | Address | [address] | | | [place] [address] | + + + | Home Phone [...] Author | [facility] | | | and Nenoana | + + + | Organization | [facility] | | | [...] + | Matthew Ramirez | ECON | [address] | | | | | [place] | | | | | [address] | | + + + + + Care Team Providers + +------+ + | Care Labor Commissioner Name | Role | Phone | + [...] | | | unspecified | | [place] [address] | | | | | type | | Phone: | | | | | Chronic | | [phone] | | | | | abdominal | | Fax: | | | | | pain | | [phone] | | | | | Benzodiazepi | [...] | | | | | | IN | | | | | | | ESOPHAGOGAST | | | | | | | RODUODENOSCO | | | | | | | PY TRANSORAL | | | | | | | DIAGNOSTIC | | | | | | | IN EGD | | | | | | | TRANSORAL | | | | | | | BIOPSY | | | | | | | SINGLE/MULTI | | | | | | | PLE IN | | | | | | | COLONOSCOPY | | | | | | | FLX DX | | | | | | | W/COLLJ SPEC | | | | | | | WHEN PFRMD | | | | | | | IN | | | | | | | COLONOSCOPY | | | | | | | W/BIOPSY | | | | | | | SINGLE/MULTI | | | | | | | PLE IN | | | | | | | COLSC FLX | | | | | | | W/RMVL OF | | | | | | | TUMOR POLYP | | | | | | | LESION SNARE | | | | | | | TQ IN | | | | | | | [...] | | | | | [address] | [address] [facility] | | | | | [place] | [place] [address] | | | | | [address] | [phone] | | | | | [phone] | | | +--------+ + + + [...] 12/17/18 1622 by | | nicolas | [id number]-[id number] catheter system; | Gris Davis RN | [...]
--- OUTSIDE RECORDS SUMMARY | ~2019-05-06 | XMS | Encounter Summary ---
Demographics + + + | Address | [address] | | | [place] [address] | + + + | Home Phone [...] | Author | [facility] | | | and Nenoana | + + + | Organization | [facility] [...] + | Matthew Ramirez | CHRIS | [address] | | | | | [place] | | | | | [address] | | + + + + + Care Team Providers + +------+ + | Care Personnel Manager Name | Role | Phone | + +------+ + PCP | Unavailable | + +------+ + Encounter Details +--------+ + + + + | Date | Type | Department | Care Team | Description | +--------+ + + + + | 03/28/ | Hospital | [facility] | | | | 1996 | Encounter | [facility] | | | | | | [address] | | | | | | [place] | | | | | | [address] | | | | | | [phone] | | | +--------+ + + + [...]
--- OUTSIDE RECORDS SUMMARY | ~2019-05-06 | XMS | Encounter Summary ---
Demographics + + + | Address | [address] | | | [place] [address] | + + + | Home Phone [...] + | Author | [facility] | | | and Nenoana | + + + | Organization | [facility] | | | and [place]eno[place] | + + + | Address | Unknown | + + + | Phone | Unavailable | + + + Support + + + + + | Name | Relationship | Address | Phone | + + + + + | Nella Haque | ECON | Unknown | | + + + + + | aMtthew Ramirez | ECON | [address] | | | | | [place] | | | | | [address] | | + + + + + Care Team Providers + +------+ + | Care Oleo Hasher And Renderer Name | Role | Phone | + [...] | | | | | [address] [facility] | [place], [place] | | | | | [address] [place], [place] | [address] | | | | | [address] | [phone] | | | | | [phone] | | | +--------+ + + + [...]
--- OUTSIDE RECORDS SUMMARY | ~2019-05-06 | XMS | Encounter Summary ---
Demographics + + + | Address | [address] | | | [place] [address] | + + + | Home Phone [...] + + | Author | [facility] | | | and Nenoana | + + + | Organization | [facility] | | [...] + | Matthew Ramirez | ECON | [address] | | | | | [place] | | | | | [address] | | + + + + + Care Team Providers + +------+ + | Care Bobcat Driver/Labor Name | Role | Phone | + [...] | | | | | | [place] [address] | | | | | | [phone] | | | +--------+ + + + [...]
--- OUTSIDE RECORDS SUMMARY | ~2019-05-06 | XMS | Encounter Summary ---
Demographics + + + | Address | [address] | | | [place] [address] | + + + | Home Phone [...] + | Matthew Ramirez | CHRIS | [address] | | | | | [place] | | | | | [address] | | + + + + + | Nella Lowery ECON | Unknown | | + + + + + Care Team Providers + +------+ + | Care Teaching Associate Name | Role | Phone | [...] | 2019 | marv | [address] [facility] | [address] | | | | | Rd [place], [place] | [place], [place] | | | | | [address] | [address] | | | | | | [phone] | | | | | | | [...]
--- OUTSIDE RECORDS SUMMARY | ~2019-05-06 | XMS | Encounter Summary ---
Demographics + + + | Address | [address] | | | [place] [address] | + + + | Home Phone [...] + | Matthew Ramirez | CHRIS | [address] | | | | | [place] | | | | | [address] | | + + + + + | Nella Haque | ECON | Unknown | | + + + + + Care Team Providers + +------+ + | Care Outreach Consultant Name | Role | Phone | [...] | | | | ma (HCC) | [place], | | | | | | Procedures | [place] | | | | | | CT ABDOMEN | [address] | | | | | | AND PELVIS W | Phone: | | | | | | IV CONTRAST | [phone] | | | | | | | Fax: | | | | | | | [phone] | | + +--------+ + + + [...] | | | | ma (HCC) | [place], | | | | | | Procedures | [place] | | | | | | [place] | [address] | | | | | | CONTRAST | Phone: | | | | | | | [phone] | | | | | | | Fax: | | | | | | | [phone] | | + +--------+ + + + + Encounter Details +--------+ + + + + | Date | Type | Department | Care Team | Description | +--------+ + + + + | 01/28/ | [employer] | Surgical Oncology | Cristel Galicia MD | Gastric | | 2019 | | at [facility] [address] | [address] | adenocarcinoma (HCC) | | | | [address] Mail Code: | [place], [place] | (Primary Dx) | | | | [place] for [facility] | [address] | | | | | and Healing, | [phone] | | | | | [address] | | | | | | [place], [place] | | | | | | [address] | | | | | | [phone] | | | +--------+ + + + [...] MD 02/03/2019 9:53 AM | |Preliminary: Nataliya Mosie MD 02/03/2019 9:23 AM | |Dictation initiated: [...]
--- OUTSIDE RECORDS SUMMARY | ~2019-05-06 | XMS | Encounter Summary ---
Demographics + + + | Address | [address] | | | [place] [address] | + + + | Home Phone [...] Author | [facility] | | | and Nenoana | + + + | Organization | [facility] | [...] + | Matthew Ramirez | ECON | [address] | | | | | [place] | | | | | [address] | | + + + + + Care Team Providers + +------+ + | Care Adult Family Home Program Manager Name | Role | Phone [...] | | | | | | [place] [facility] | | | | | [...] | | | [place], [place] | [place] [address] | | | | | [address] | [phone] | | | | | [phone] | | | +--------+ + + + [...]
--- OUTSIDE RECORDS SUMMARY | ~2019-05-06 | XMS | Encounter Summary ---
Demographics + + + | Address | [address] | | | [place] [address] | + + + | Home Phone [...] + | Matthew Ramirez | CHRIS | [address] | | | | | [place] | | | | | [address] | | + + + + + | Nella Haque | ECON | Unknown | | + + + + + Care Team Providers + +------+ + | Care Cutter And Presser Name | Role | Phone | + +------+ + | Long Copeland MD | PCP | | + +------+ + Encounter Details +--------+ + + + + | Date | Type | Department | Care Team | Description | +--------+ + + + + | 08/22/ | Outside | UNKNOWN DEPARTMENT | Other, Faculty | | | 2019 | Records | [address] [facility] | [phone] | | | | | [address] | | | | | | [place], [place] | | | | | | [address] | | | +--------+ + + + [...]
--- OUTSIDE RECORDS SUMMARY | ~2019-05-06 | XMS | Encounter Summary ---
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 | Cristel Galicia MD | Gastric | | 2019 | | at [facility] [address] | [address] | adenocarcinoma (HCC) | | | | [address] Mail Code: | [place], [place] | (Primary Dx) | | | | [facility] | [address] | | | | | and Healing, | [phone] | | | | | Building [address] | | | | | | [place], [place] | | | | | | [address] | | | | | | [phone] | | | +--------+ + + + [...] Electronically | | Pathologic | to F [id number]; | | DEPARTMENT | signed by Bonifacio [...] PathologistPathology, | | | | | | [facility] | | | | | | UniversityMy [...] [facility] | | | Received | Institution: [place] | | DEPARTMENT | | | | [facility] | | OF | | | | [place], [place] | | PATHOLOGY | | | | [id number] Accession | | | | | | Number: | | | | | | [id number] | | | | | | Collection [...] | + + + + + | [facility] | [address] | [place] [address] | | | PATHOLOGY | [address] | | | + + + + + documented in this encounter Visit Diagnoses + + | Diagnosis | + + | Gastric adenocarcinoma (HCC) - Primary Malignant neoplasm of stomach, unspecified | | site | + + documented in this encounter"
--- OUTSIDE RECORDS SUMMARY | ~2019-05-06 | XMS | Clinical Summary ---
Demographics + + + | Address | [address] | | | [place] [address] | + + + | Home Phone [...] Author | [facility] | | | and Nenoana | + + + | Organization | [facility] | [...] + | Matthew Ramirez | ECON | [address] | | | | | [place] | | | | | [address] | | + + + + + Care Team Providers + +------+ + | Care Lead Coater Name | Role | Phone | [...] 2003.2. Screening | | colonoscopy in 2009 ([facility]) notable for polyps.3. Chronic | | abdominal pain, evaluated by Dr. Julien Francisco in 2015. Colonoscopy | | on October 30, 2015 ([facility] was notable for 3 tubular adenomas and | | one hyperplastic polyp.4. Repeat colonoscopy January 26, 2018 | | ([facility]) notable for a tubular adenoma.5. Admit [facility], October 18, 2017 | | for partial small bowel obstruction. CT scan of abdomen/pelvis | | with contrast demonstrated small bowel obstruction. Symptoms | | resolved with conservative management.6. Presentation on July | | 2018 with abdominal pain, nausea and one episode of vomiting. | | CT abdomen/pelvis with contrast August 05, 2018 at [place] | | [facility] in [facility] demonstrated no acute inflammatory | | changes in the abdomen or pelvis.7. EGD/ Colonoscopy with random | | biopsies by Dr. Shukla, [facility] on December 17, 2018; Specimen # | | [id number] (rPath). "A-Mucosa, stomach, | | biopsy-infiltrating gastric adenocarcinoma." [...] referred by Matthew Shukla Md | | [address] [place] [address] for evaluation | | and management of gastric adenocarcinoma.I met with Ashly and her | | daughter Nella, on 01/05/2019 at the [facility] | | Cancer Center. The patient's history [...] with Dr. | | Guevara Ernandez at [facility], who affirmed that the biopsy could be | | consistent with Linitis Plastica. Dr. Shukla agreed that the lack | | of endoscopic or radiographic findings is atypical and agreed | | that endoscopic ultrasound is indicated for further evaluation. | | Dr. Shukla' office will co-ordinate endoscopic ultrasound with | | [facility] in [place]. I will follow up with | | Ashly Ramirez after her next procedure to review the results | | and to establish a plan of management. | + + + + + | Rectal bleeding | 12/16/2018 | + + + + + | Overview: Added automatically from request for surgery | | [id number] | + + + + + | Diarrhea, unspecified type | 12/16/2018 | + + + + + | Overview: Added automatically from request for surgery | | [id number] | + + + + + | Chronic abdominal pain | 12/16/2018 | + + + + + | Overview: Added automatically from request for surgery | | [id number] | + + + + + | Benzodiazepine dependence | 12/16/2018 | + + + + + | Overview: Added automatically from request for surgery | | [id number] | + + + + + | Narcotic dependence, episodic use | 12/16/2018 | + + + + + | Overview: Added automatically from request for surgery | | [id number] | + + + + + | LUQ pain | 12/16/2018 | + + + + + | Overview: Added automatically from request for surgery | | [id number] | + + + + + | Alternating constipation and diarrhea | 12/16/2018 | + + + + + | Overview: Added automatically from request for surgery | | [id number] | + + + + + | Hematochezia | 12/16/2018 | + + + + + | Overview: Added automatically from request for surgery | | [id number] | + + + + + | Weight loss, unintentional | 12/16/2018 | + + + + + | Overview: Added automatically from request for surgery | | [id number] | + + + + + | [...] | + + + + | INFLUENZA, [id number], | 04/29/2009 | | | UNSPECIFIED | [...] | Left: | CONMED | | | [id number] | | on 07/04/2017 by Prakash, | | Toe | JOHN- [id number] | | | [id number] | | Jose Sanon DPM at [facility] | | | | | | /[id number] | | [facility] | | | | | | 059114 | | | | | | | | 756856 | | | | | | | | 305058 | | | | | | | | 912620 | | | | | | | | 492122 | | | | | | | | | | | | | | | | /11232 | | | | | | | | 6 | + +------+--------+ +--------+--------+--------+ | .045 C-WireImplanted: Qty: 1 | | Left: | CONMED | | | [id number] | | on 07/04/2017 by Prakash, | | Toe | CONMED | | | [id number] | | Jose Sanon DPM at [facility] | | | JOHN. | | | /[id number] | | [facility] | | | | | | 531044 | | | | | | | | 939454 | | | | | | | | 207998 | | | | | | | | 189004 | | | | | | | | 807655 | | | | | | | | | | | | | | | | /67328 | | | | | | | | 7 | + +------+--------+ +--------+--------+--------+ | .045 C-WireImplanted: Qty: 1 | | Left: | CONMED | | | [id number] | | on 07/04/2017 by Prakash | | Toe | CONMED | | | 26965 | | Jose Sanon DPM at [facility] | | | JOHN. | | | /[id number] | | [facility] | | | | | | 048140 | | | | | | | | 906441 | | | | | | | | 062507 | | | | | | | | 415571 | | | | | | | | 560817 | | | | | | | | | | | | | | | | /81074 | | | | | | | | 6 | + +------+--------+ +--------+--------+--------+ | Pip DartImplanted: Qty: 1 on | | Right: | ARTHREX | | 06/11/ | AR-415 | | 02/13/2018 by Jose Randall | | Toe | ARTHREX | | 2021 | 5PS-30 | Beverley Sanon DPM at [facility] | | | INC. | | | 10 | | [facility] | | | | | | /+$$80 | | | | | | | | [id number] | | | | | | | | [id number] | | | | | | | | 77U | | | | | | | | /09690 | | | | | | | | 817 | + +------+--------+ +--------+--------+--------+ | Pip Dart Implanted: Qty: 1 on | | Right: | ARTHREX | | 11/08/ | AR-415 | | 02/13/2018 by Prakash, | | Toe | ARTHREX | | 2022 | 4PS-30 | | Jose Sanon DPM at [facility] | | | INC[employer] | | | 10 | | [facility] | | | | | | /+$$80 | | | | | | | | [id number] | | | | | | | | 421317 | | | | | | | | 47$ | | | | | | | | /93696 | | | | | | | [...] Toe | ARTHREX | | 2020 | /[id number] | | Qty: 1 on 02/13/2018 at [facility] | | | INC. | | | [id number] | | [facility] | | | | | | 937393 | | | | | | | | 509347 | | | | | | | | 478771 | | | | | | | | 507515 | | | | | | | | 761 | | | | | | | | /42983 | | | | | | | [...] the common bile duct. | | | Unzq-jw-ngga and in the right aspect of L4. [...] | |dilatation of the common bile duct. Hdot-mg-zlkl and in the right aspect of L4. [...] | | of the common bile duct. Tmui-up-umfm and in the right aspect of L4.IMPRESSION: [...] | |dilatation of the common bile duct. Lxws-ki-xrdn and in the right aspect of L4. [...] + +--------+ | MEDICARE | MEDICA | [id number] | 10/11/19 | [phone] | | Medica | | | RE | | 04-Pre | 5 | | re | | | PART A | | sent | | | | | | AND B | | | | | | + +--------+ +--------+ + +--------+ | MODA | MODA | [id number] | 05/12/19 | [id number] | [address] | Indemn | | | HEALTH | | 17-Pre | 9 | [address] | ity | | | MDCR | | sent | | [place], | | | | [place] | | | | [place] [address] | | + +--------+ +--------+ + +--------+ | MEDICARE | MEDICA | [id number] | 10/11/19 | [phone] | | Medica | | | RE | | 04-Pre | 5 | | re | | | PART A | | sent | | | | | | AND B | | | | | | + +--------+ +--------+ + +--------+ | MODA | MODA | [id number] | 05/12/19 | [id number] | [address] | Indemn | | | HEALTH | | 19-Pre | 9 | [address] | ity | | | MDCR | | sent | | [place], | | | | [place] | | | | [place] [address] | | + +--------+ +--------+ + +--------+ + +--------+ +--------+ + + | Guarantor Name | Accoun | Relation to | Date | Phone | Billing Address | | | t Type | Patient | of | | | | | | | | | | + +--------+ +--------+ + + | Ashly Ramirez | Person | Self | [birth year] | [address] | | | al/Fam | | 1941 | [phone] | [place], [place] | | | amrik | | | 9 (Home) | [address] | + +--------+ +--------+ + + | Ashly Ramirez | Person | Self | [birth year] | | [address] | | | al/Fam | | 1941 | [phone] | [place], [place] | | | amrik | | | 9 (Home) | [address] | + +--------+ +--------+ + + Advance Directives + + + + + | Type | Date Recorded | Patient | Explanation | | | | Plate Painter Apprentice | | + + + + + | Power of | | | | | Real Estate Coordinator | | | | + + + [...]
--- OUTSIDE RECORDS SUMMARY | ~2019-05-06 | XMS | Encounter Summary ---
Demographics + + + | Address | [address] | | | [place] [address] | + + + | Home Phone [...] + | Matthew Ramirez | CHRIS | [address] | | | | | [place] | | | | | [address] | | + + + + + | Nella Haque | ECON | Unknown | | + + + + + Care Team Providers + +------+ + | Care Corn Breeder Name | Role | Phone | + [...] + + | 03/18/ | Telephone | Hematology/Medical | Gregg Ordoñez PharmD | Oral Chemo | | 2019 | | [facility] at [place] | [address] | (tamoxifen) | | | | for Health & Healing | [facility], | | | | | [address] | [place] [address] | | | | | Mailcode: [place] | | | | | | for Health and | | | | | | Healing, [facility] | | | | | | [place], [place] | | | | | | [address] | | | | | | [phone] | | | +--------+ + + + [...]
--- OUTSIDE RECORDS SUMMARY | ~2019-05-06 | XMS | Encounter Summary ---
Demographics + + + | Address | [address] | | | [place] [address] | + + + | Home Phone | | + + + | Preferred Language | Unknown | + + + | Marital Status | | + + + | Confucianism Affiliation | NRP | + + + | Race | White | + + + | Ethnic Group | Not or | + + + Author + + + | Author | [facility] | + + + | Organization | [facility] | + + + | Address | Unknown | + + + | Phone | Unavailable | + + + Support + + + + + | Name | Relationship | Address | Phone | + + + + + | Matthew Ramirez | CHRIS | [address] | | | | | [place] | | | | | [address] | | + + + + + | Nella Haque | ECON | Unknown | | + + + + + Care Team Providers + +------+ + | Care Binding Dyer Name | Role | Phone | + [...] | | | | | | | [facility] | | | | | | | [place] | | | | | | | [facility] | | | | | | | ([facility]) | | | | | | | [place], | | | | | | | [place] [address] | | | | | | | Phone: | | | | | | | [phone] | | | | | | | Fax: | | | | | | | [phone] | +--------+--------+ + + + + Encounter Details +--------+ + + + + | Date | Type | Department | Care Team | Description | +--------+ + + + + | 10/26/ | Hospital | [facility] [address] | Avis Rios | | | 2010 | Encounter | [address] | MD Gillian [address] | | | | | [facility] | [address] | | | | | [place] [facility] | [place], [place] | | | | | ([facility]) | [address] | | | | | [place], [place] | [phone] | | | | | [address] | | | | | | [phone] | | | +--------+ + + + [...] Discharge Instructions Instructions Laura Mendes RN - 10/26/2010[facility] Transvaginal Suburethral Sling WHAT YOU SHOULD KNOW A transvaginal suburethral sling is surgery to treat stress incontinence (cd-EYK-xxj-nasima) . The goal of surgery is to [...] TO REACH YOUR DOCTOR Friday call the [facility] at [phone] After hours, weekend and holidays call the Hospital Driver Utility Worker at [phone]. Ask them to page your doctor. RETURN [...] nostril | | | | | | Annona | once daily. | | | | [...]
--- OUTSIDE RECORDS SUMMARY | ~2019-05-06 | XMS | Encounter Summary ---
Demographics + + + | Address | [address] | | | [place] [address] | + + + | Home Phone [...] | [facility] | | | and Nenoana | + + + | Organization | [facility] | | [...] + | Matthew Ramirez | ECON | [address] | | | | | [place] | | | | | [address] | | + + + + + Care Team Providers + +------+ + | Care Personnel Coordinator Name | Role | Phone | [...] | | | | | | | [place] REPAIR | | | | | | [...] Event | HOSPITAL OR INTRA OP | LUMBER HANDLER [address] | | | | | [address] | [place] [address] | | | | | [place], [place] | [phone] | | | | | [address] | | | | | | [phone] | | | +--------+ + + + + Anesthesia Record + + + + + | Procedure Name | Responsible | Anesthesia Start | Anesthesia Stop Time | | | Anesthesiologist | Time | | + + + + + | CORRECTION | Mayank Honeycutt, | 07/04/17 0912 | 07/04/17 1022 | | MARSHA 2, 3, 4 | LUMBER HANDLER | | | | (Left Foot) | [...]
--- OUTSIDE RECORDS SUMMARY | ~2019-05-06 | XMS | Encounter Summary ---
Demographics + + + | Address | [address] | | | [place] [address] | + + + | Home Phone [...] | Author | [facility] | | | and Nenoana | + + + | Organization | [facility] [...] + | Matthew Ramirez | ECON | [address] | | | | | [place] | | | | | [address] | | + + + + + Care Team Providers + +------+ + | Care Mandrel Maker Name | Role | Phone | [...] | | Procedures | [address] | [place] [address] | | | | | office visit | [place] | Phone: | | | | | | [place] [address] | [phone] | | | | | | Phone: | Fax: | | | | | | [phone] | [phone] | | | | | | Fax: | | | | | | | [phone] | | +--------+--------+ + + + + Encounter Details +--------+---------+ + + + | Date | Type | Department | Care Team | Description | +--------+---------+ + + + | 12/14/ | Office | [facility] | Matthew Shukla MD | Chronic abdominal | | 2019 | Visit | GASTROENTEROLOGY | [address] | pain (Primary Dx); | | | | [address] [facility] | [place], [place] | Diarrhea, | | | | [address] [place], [place] | [address] | unspecified type; | | | | [address] | [phone] | Rectal bleeding; | | | | [phone] | | Benzodiazepine | | | | [...] 0700 on 12/17, finishing by 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 Encouraged [...]
--- OUTSIDE RECORDS SUMMARY | ~2019-05-06 | XMS | Encounter Summary ---
Demographics + + + | Address | [address] | | | [place] [address] | + + + | Home Phone [...] | Author | [facility] | | | and Nenoana | + + + | Organization | [facility] | | | and [...] + | Matthew Ramirez | ECON | [address] | | | | | [place] | | | | | [address] | | + + + + + Care Team Providers + +------+ + | Care Wood Technologist Name | Role | Phone | [...] | | | | | | | [place] REPAIR | | | | | | [...] HOSPITAL OR INTRA OP | J[address]IE [address] | MARSHA 2, 3, 4 | | | | [address] [place] | [facility] | | | | | [place], [place] | [place] [address] | | | | | [address] | [phone] | | | | | [phone] | | | +--------+---------+ + + + [...]
--- OUTSIDE RECORDS SUMMARY | ~2019-05-06 | XMS | Encounter Summary ---
Demographics + + + | Address | [address] | | | [place] [address] | + + + | Home Phone [...] | Author | [facility] | | | and Nenoana | + + + | Organization | [facility] | | | and [...] + | Matthew Ramirez | CHRIS | [address] | | | | | [place] | | | | | [address] | | + + + + + Care Team Providers + +------+ + | Care Plaster Molder Name | Role | Phone | + +------+ + PCP | Unavailable | + +------+ + Encounter Details +--------+ + + + + | Date | Type | Department | Care Team | Description | +--------+ + + + + | 12/30/ | Hospital | [facility] | | | | 2001 | Encounter | MED CTR XRAY [address] | | | | | | [address] | | | | | | [place] [address] | | | | | | [phone] | | | +--------+ + + + [...]
--- OUTSIDE RECORDS SUMMARY | ~2019-05-06 | XMS | Encounter Summary ---
Demographics + + + | Address | [address] | | | [place] [address] | + + + | Home Phone [...] Author | [facility] | | | and Nenoana | + + + | Organization | [facility] | | | [...] + | Matthew Ramirez | CHRIS | [address] | | | | | [place] | | | | | [address] | | + + + + + Care Team Providers + +------+ + | Care Activities Officer Name | Role | Phone | + +------+ + PCP | Unavailable | + +------+ + Encounter Details +--------+ + + + + | Date | Type | Department | Care Team | Description | +--------+ + + + + | 03/12/ | Hospital [facility] | | | | [facility] - | Encounter | MED CTR OP REHAB | | | | | | [address] | | | | 04/17/ | | [place] [address] | | | | 2005 | | [phone] | | | +--------+ + + + [...]
--- OUTSIDE RECORDS SUMMARY | ~2019-05-06 | XMS | Encounter Summary ---
Demographics + + + | Address | [address] | | | [place] [address] | + + + | Home Phone [...] | Author | [facility] | | | and Nenoana | + + + | Organization | [facility] | | [...] + | Matthew Ramirez | ECON | [address] | | | | | [place] | | | | | [address] | | + + + + + Care Team Providers + +------+ + | Care Supervisor Plate Forming Name | Role | Phone | + [...] + | 01/25/ | Telephone | [facility] | Arpan, | Family/caregiver | | 2019 | | [facility] | Luis Richards MD [address] | Concerns | | | | [facility] [address] [facility] | | | | | [address] | [place] [address] | | | | | [place] [address] | [phone] | | | | | [phone] | | | +--------+ + + + [...]
--- OUTSIDE RECORDS SUMMARY | ~2019-05-06 | XMS | Encounter Summary ---
Demographics + + + | Address | [address] | | | [place] [address] | + + + | Home Phone [...] | Author | [facility] | | | and Nenoana | + + + | Organization | [facility] [...] + | Matthew Ramirez | ECON | [address] | | | | | [place] | | | | | [address] | | + + + + + Care Team Providers + +------+ + | Care Warehouse Operations Associate Name | Role | Phone | [...] | | | unspecified | | [place] [address] | | | | | type | | Phone: | | | | | Chronic | | [phone] | | | | | abdominal | | Fax: | | | | | pain | | [phone] | | | | | Benzodiazepi | [...] | | | | | | VA | | | | | | | ESOPHAGOGAST | | | | | | | RODUODENOSCO | | | | | | | PY TRANSORAL | | | | | | | DIAGNOSTIC | | | | | | | VA EGD | | | | | | | TRANSORAL | | | | | | | BIOPSY | | | | | | | SINGLE/MULTI | | | | | | | PLE VA | | | | | | | COLONOSCOPY | | | | | | | FLX DX | | | | | | | W/COLLJ SPEC | | | | | | | WHEN PFRMD | | | | | | | VA | | | | | | | COLONOSCOPY | | | | | | | W/BIOPSY | | | | | | | SINGLE/MULTI | | | | | | | PLE VA | | | | | | | COLSC FLX | | | | | | | W/RMVL OF | | | | | | | TUMOR POLYP | | | | | | | LESION SNARE | | | | | | | TQ VA | | | | | | | [...] + + | 12/17/ | Hospital | [facility] | Matthew Shukla MD | Rectal bleeding; | | 2019 | Encounter | MED CTR MP INTRA OP | [address] | Diarrhea, | | | | [address] | [place] | unspecified type; | | | | [place] | [address] | Chronic abdominal | | | | [address] | [phone] | pain; Benzodiazepine | | | | [phone] | | dependence (HCC); | | | [...] 12/17/2018 | [employer] | | 3:06 PMMRN: [id number] #: [id number] of : | | | 1938dmit Type: [...] | | | the anesthesiologist and the train control electronic technician in the pre-procedure | | | [...] Out: 3:26:19 | | | PM [facility], [address] [place] [address] | | | [place] [address] | | | - Await pathology results. [...] Out: 3:26:19 PM | | | [facility], [address] [place] [address] | | | [address] | | + + -+ + +---------+ [...] 12/17/2018 | [facility]OVATION | | 3:04 PMMRN: [id number] #: [id number] of : | | | 9Admit Type: AmbulatoryAge: 78Room: Endo Room 2Gender: | | | FemaleNote Status: FinalizedAttending MD: Matthew Shukla , | | | MDProcedure: ColonoscopyIndications: Abdominal | | | pain in the left upper quadrant, Hematochezia, | | | Chronic diarrhea, Weight lossProviders: Matthew Rosales | | | MD Gayla, Rina Edouard RN, Conrado Kang, [facility], | | | Devon Murdock MD [...] the anesthesiologist and the | | | train control electronic technician in the pre-procedure area in the [...] | | | evaluated using the BBPS (Gracey Bowel Preparation Scale) with | | | [...] Out: | | | 3:55:04 PM [facility], [address] [facility], | | | [place] [address] | | | - Await pathology results. [...] Out: 3:55:04 PM | | | [facility], [address] [facility], [place] | | | [address] | | + + -+ + +---------+ + + | Performing | Address | City/State/[facility] Centercode | Phone Number | | [...] | COMMENT: A -- As part of [facility]' Quality Improvement | | | Program, this [...] | and its performance characteristics determined by [facility]. | | | It has not been cleared or approved by the U.S. Food and Drug | | | Administration. The FDA has determined that such clearance or | | | approval is not necessary. This test is used for clinical purposes. | | | It should not be regarded as investigational or for research. | | | [facility] is certified under the Clinical Laboratory | | | Improvement Amendments of 1988 (CLIA) as qualified to perform high | | | complexity clinical laboratory testing. PERFORMING LABORATORY: | | | The technical component was performed by [facility], [address] | | | [place] [address] (Hotel Supp[employer] Salesperson: Marilyn Dowell MD; | | | CLIA# [id number]). Professional interpretation was performed by | | | [facility], [address] | | | [address] [place] [address] (Hotel Supplies Salesperson: Guevara Ernandez | | | ; CLIA# [id number]). ADDITIONAL NOTES: Immunohistochemical | | | and/or in situ hybridization studies were performed on this case with | | | the appropriate positive controls that react as expected. This test | | | was developed and its performance characteristics determined by | | | [facility]. It has not been cleared or approved by the U.S. | | | Food and Drug Administration. The FDA has determined that such | | | clearance or approval is not necessary. This test is used for | | | clinical purposes. It should not be regarded as investigational or | | | for research. [facility] is certified under the Clinical | | | Laboratory Improvement Amendments of 1988 (CLIA) as qualified to | | | perform high complexity clinical laboratory testing. PERFORMING | | | LABORATORY: The technical component was performed by [facility] | | | [facility], [address] [place] [address] (Hotel Supplies Salesperson: | | | Marilyn Dowell MD; CLIA# [id number]). Professional interpretation was | | | performed by [facility], [address] [place] [address] | | | [place] [address] ([employer]el Supp[employer] Salesperson: Darien Kapoor D.O.; CLIA#: | | | [id number]). REASON FOR ADDENDUM: To add results of [...] the FDA-approved HER-2 Pathway is performed at [facility] | | | [place], on accession #[id number] from at the [...] the Vysis PathVysion kit was performed at [facility] | | | [place]. The assay has not been validated [...] interpretation was | | | performed by [facility], [address] [place] [address] | | | [place] [address] ([employer]el Supplies Salesperson: Everardo HillOPeggy; [facility]#: | | | [id number]). Diagnostician: Guevara Ernandez MD Pathologist | | [...] PRN, | | | Wheezing, Starting [facility] 12/17/18 at | | | 1346, For 1 dose, Pre-op | | + +---+ | | | + +---+ | albuterol-ipratropium 2.5-0.5 | | | mg/3 mL nebulizer solution 3 mL | | | 3 mL, Nebulization, ONCE PRN, | | | Wheezing, Shortness of Breath, | | | Starting [facility] 12/17/18 at 1615, For | | [...] < 50, | | | Starting [facility] 12/17/18 at 1346, | | | [...]
--- OUTSIDE RECORDS SUMMARY | ~2019-05-06 | XMS | Encounter Summary ---
Demographics + + + | Address | [address] | | | [place] [address] | + + + | Home Phone [...] | Author | [facility] | | | and Nenoana | + + + | Organization | [facility] | | | and Nenoana [...] + | Matthew Ramirez | ECON | [address] | | | | | [place] | | | | | [address] | | + + + + + Care Team Providers + +------+ + | Care Quality Assurance Qa Lab Technician Name | Role | Phone | [...] + | 01/25/ | Telephone | [facility] | Arpan, | Family/caregiver | | 2019 | | MED [facility] | Luis Richards MD [address] | Concerns | | | | [facility] [address] | [facility] | | | | | [address] | [place] [address] | | | | | [place] [address] | [phone] | | | | | [phone] | | | +--------+ + + + [...]
--- OUTSIDE RECORDS SUMMARY | ~2019-05-06 | XMS | Encounter Summary ---
Demographics + + + | Address | [address] | | | [place] [address] | + + + | Home Phone | | + + + | Preferred Language | Unknown | + + + | Marital Status | | + + + | Shinto Affiliation | Unknown | + + + | Race | Unknown | + + + | Ethnic Group | Unknown | + + + Author + + + | Author | [facility] | | | and Nenoana | + + + | Organization | [facility] [...] + | Matthew Ramirez | ECON | [address] | | | | | [place] | | | | | [address] | | + + + + + Care Team Providers + +------+ + | Care Television Specialist Name | Role | Phone | [...] | | | unspecified | | [place] [address] | | | | | type | | Phone: | | | | | Chronic | | [phone] | | | | | abdominal | | Fax: | | | | | pain | | [phone] | | | | | Benzodiazepi | [...] | | | | | | OR | | | | | | | ESOPHAGOGAST | | | | | | | RODUODENOSCO | | | | | | | PY TRANSORAL | | | | | | | DIAGNOSTIC | | | | | | | OR EGD | | | | | | | TRANSORAL | | | | | | | BIOPSY | | | | | | | SINGLE/MULTI | | | | | | | PLE OR | | | | | | | COLONOSCOPY | | | | | | | FLX DX | | | | | | | W/COLLJ SPEC | | | | | | | WHEN PFRMD | | | | | | | OR | | | | | | | COLONOSCOPY | | | | | | | W/BIOPSY | | | | | | | SINGLE/MULTI | | | | | | | PLE OR | | | | | | | COLSC FLX | | | | | | | W/RMVL OF | | | | | | | TUMOR POLYP | | | | | | | LESION SNARE | | | | | | | TQ OR | | | | | | [...] + + | 12/17/ | [facility] | [facility] | Matthew Shukla MD | EGD | | 2019 | | MED CTR MP INTRA OP | [address] | | | | | [address] | [place] | | | | | [place] | [address] | | | | | [address] | [phone] | | | | | [phone] | | | +--------+---------+ + + + [...] | | | | | episodic use ([facility]) | | | | | | LUQ [...] 12/17/2018 | [employer] | | 3:06 PMMRN: [id number] #: [id number] of : | | | 1940dmit Type: [...] | | | the anesthesiologist and the education technician in the pre-procedure | | | [...] PMScope Out: 3:26:19 | | | PM [facility], [address] [facility] | | | [place] [address] | | | - Await pathology results. [...] |Scope Out: 3:26:19 PM | | | [facility], [address] [place], [place] | | | [address] | | + + -+ + +---------+ + + | Performing | Address | City/State/[facility] Centercode | Phone Number | [...] 12/17/2018 | [facility]ATION | | 3:04 PMMRN: [id number] #: [id number] of : | | | 1940dmit Type: AmbulatoryAge: 78Room: Endo Room 2Gender: | | | FemaleNote Status: FinalizedAttending MD: Matthew Shukla , | | | MDProcedure: ColonoscopyIndications: Abdominal | | | pain in the left upper quadrant, Hematochezia, | | | Chronic diarrhea, Weight lossProviders: Matthew Rosales | | | MD Gayla, Rina Edouard RN, Conrado Kang [facility], | | | Devon Murdock MD (Anesthesia [...] the anesthesiologist and the | | | education technician in the pre-procedure area in the [...] | | | evaluated using the BBPS (Roy Bowel Preparation Scale) with | | | [...] PMScope Out: | | | 3:55:04 PM [facility], [address] [place] [address], | | | [place] [address] | | | - Await pathology results. [...] |Scope Out: 3:55:04 PM | | | [facility], [address] [facility], [place], [place] | | | [address] | | + + -+ + +---------+ [...] | COMMENT: A -- As part of [employer] [facility]' Quality Improvement | | | Program, this [...] | and its performance characteristics determined by [facility]. | | | It has not been cleared or approved by the U.S. Food and Drug | | | Administration. The FDA has determined that such clearance or | | | approval is not necessary. This test is used for clinical purposes. | | | It should not be regarded as investigational or for research. | | | [facility] is certified under the Clinical Laboratory | | | Improvement Amendments of 1988 (CLIA) as qualified to perform high | | | complexity clinical laboratory testing. PERFORMING LABORATORY: | | | The technical component was performed by [facility], [address] | | | [place] [address] (Plastics Worker: Marilyn Dowell MD; | | | CLIA# [id number]). Professional interpretation was performed by | | | [facility], [facility], [address] [place] [address]. | | | [address] [place] [address] (Plastics Worker: Guevara Ernandez | | | ; CLIA# [id number]). ADDITIONAL NOTES: Immunohistochemical | | | and/or in situ hybridization studies were performed on this case with | | | the appropriate positive controls that react as expected. This test | | | was developed and its performance characteristics determined by | | | [facility]. It has not been cleared or approved by the U.S. | | | Food and Drug Administration. The FDA has determined that such | | | clearance or approval is not necessary. This test is used for | | | clinical purposes. It should not be regarded as investigational or | | | for research. [facility] is certified under the Clinical | | | Laboratory Improvement Amendments of 1988 (CLIA) as qualified to | | | perform high complexity clinical laboratory testing. PERFORMING | | | LABORATORY: The technical component was performed by [facility] | | | [facility], [address] [place] [address] (Plastics Worker: | | | Marilyn Dowell MD; CLIA# [id number]). Professional interpretation was | | | performed by [facility], [address] [place] | | | [place] [address] (Plastics Worker: Darien Kapoor D.O.; CLIA#: | | | [id number]). REASON FOR ADDENDUM: To add results of [...] the FDA-approved HER-2 Pathway is performed at [facility] | | | [place], on accession #[id number] from at the [...] the Vysis PathVysion kit was performed at [facility] | | | [place]. The assay has not been validated [...] interpretation was | | | performed by [facility], [address] [facility] | | | [place] [address] (Plastics Worker: Darien Kapoor D.O.; CLIA#: | | | [id number]). Diagnostician: Guevara Ernandez MD Pathologist | | [...] [place] PATHOLOGY | | | | | [facility] | | | | + +---------+ + [...] ONCE PRN, | | | Wheezing, Starting [facility] 12/17/18 at | | | 1346, For 1 dose, Pre-op | | + +---+ | | | + +---+ | albuterol-ipratropium 2.5-0.5 | | | mg/3 mL nebulizer solution 3 mL | | | 3 mL, Nebulization, ONCE PRN, | | | Wheezing, Shortness of Breath, | | | Starting [facility] 12/17/18 at 1615, For | | [...]
--- OUTSIDE RECORDS SUMMARY | ~2019-05-06 | XMS | Encounter Summary ---
Demographics + + + | Address | [address] | | | [place] [address] | + + + | Home Phone [...] + | Matthew Ramirez | CHRIS | [address] | | | | | [place] | | | | | [address] | | + + + + + | Nella Lowery ECON | Unknown | | + + + + + Care Team Providers + +------+ + | Care Contract Driver Name | Role | Phone | [...] | | Ron Villalobos Mail Code: | [place], [place] | | | | | [facility] | [address] | | | | | and Healing, | [phone] | | | | | [address] | | | | | | [place], [place] | | | | | | [address] | | | | | | [phone] | | | +--------+ + + + [...]
--- OUTSIDE RECORDS SUMMARY | ~2019-05-06 | XMS | Encounter Summary ---
Demographics + + + | Address | [address] | | | [place] [address] | + + + | Home Phone [...] + | Matthew Ramirez | CHRIS | [address] | | | | | [place] | | | | | [address] | | + + + + + | Nella Mitchellox Beverley ECON | Unknown | | + + + + + Care Team Providers + +------+ + | Care Bilingual Interpreter Name | Role | Phone | + +------+ + | Long Copeland MD | PCP | | + +------+ + Encounter Details +--------+ + + + + | Date | Type | Department | Care Team | Description | +--------+ + + + + | 01/28/ | Sales Marketing Director | Surgical Oncology | Cristel Galicia MD | Gastric | | 2019 | | at [facility] [address] | [address] | adenocarcinoma (HCC) | | | | [address] Mail Code: | [place], [place] | (Primary Dx) | | | | [facility] | [address] | | | | | and Healing, | [phone] | | | | | [address] | | | | | | [place], [place] | | | | | | [address] | | | | | | [phone] | | | +--------+ + + + [...] Electronically | | Pathologic | to F [id number]; | | DEPARTMENT | signed by Bonifacio [...] PathologistPathology, | | | | | | [facility] [employer] [facility] | | | | | | UniversityMy [...] [facility] | | | Received | Institution: [place] | | DEPARTMENT | | | | [facility] | | OF | | | | [place], [place] | | PATHOLOGY | | | | [id number] Accession | | | | | | Number: | | | | | | [id number] | | | | | | Collection [...] | + + + + + | [facility] | [address] | [place] [address] | | | PATHOLOGY | [address] | | | + + + + + documented in this encounter Visit Diagnoses + + | Diagnosis | + + | Gastric adenocarcinoma (HCC) - Primary Malignant neoplasm of stomach, unspecified | | site | + + documented in this encounter"
--- OUTSIDE RECORDS SUMMARY | ~2019-05-06 | XMS | Encounter Summary ---
Demographics + + + | Address | [address] | | | [place] [address] | + + + | Home Phone [...] | Author | [facility] | | | and Nenoana | + + + | Organization | [facility] | | | and [...] + | Matthew Ramirez | CHRIS | [address] | | | | | [place] | | | | | [address] | | + + + + + Care Team Providers + +------+ + | Care Cafeteria Food Server Name | Role | Phone | + +------+ + PCP | Unavailable | + +------+ + Encounter Details +--------+ + + + + | Date | Type | Department | Care Team | Description | +--------+ + + + + | 11/27/ | Hospital | [facility] | | | | 1999 | Encounter | MED CTR GENERIC OP | | | | | | CONV DEPT [address] | | | | | | [place], | | | | | | [place] [address] | | | | | | [phone] | | | +--------+ + + + [...]
--- OUTSIDE RECORDS SUMMARY | ~2019-05-06 | XMS | Encounter Summary ---
Demographics + + + | Address | [address] | | | [place] [address] | + + + | Home Phone [...] | Author | [facility] | | | and Nenoana | + + + | Organization | [facility] | [...] + | Matthew Ramirez | ECON | [address] | | | | | [place] | | | | | [address] | | + + + + + Care Team Providers + +------+ + | Care Sheriff'S Sergeant Name | Role | Phone | [...] | 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 | [address] | | | | | adenocarcino | [address] | [place], | | | | | ma (HCC) | [address] | [place] [address] | | | | | Procedures | [place], [place] | Phone: | | | | | CT Chest | [address] | [phone] | | | | | Abdomen | Phone: | Fax: | | | | | Pelvis w | [phone] | [phone] | | | | | Contrast | Fax: | | | | | | CHG CT | [phone] | | | | | | SCAN,ABDOMEN | | | | | | | AND | | | | | | | PELVIS,W | | | | | | | CONTRAST MD | | | | | | [...] | | ma (HCC) | [address] | [place] | | | | | | [place], [place] | [place], | | | | | | [address] | [place] [address] | | | | | | Phone: | Phone: | | | | | | [phone] | [phone] | | | | | | Fax: | Fax: | | | | | | [phone] | [phone] | +--------+ + + + + + Reason for Visit + + + | Reason | Comments | + + + | Results, Pathology | | + + + Encounter Details +--------+ + + + + | Date | Type | Department | Care Team | Description | +--------+ + + + + | 12/29/ | Telephone | [facility] | Matthew Shukla MD | Results, Pathology | | 2019 | | GASTROENTEROLOGY | [address] [facility] | | | | | [address] [facility] | [place], [place] | | | | | [address] [place], [place] | [address] | | | | | [address] | [phone] | | | | | [phone] | | | +--------+ + + + [...] +--------+ + + | AMB REFERRAL TO [facility] | Outpatient | Routin | Gastric [...]
--- OUTSIDE RECORDS SUMMARY | ~2019-05-06 | XMS | Encounter Summary ---
Demographics + + + | Address | [address] | | | [place] [address] | + + + | Home Phone [...] | Author | [facility] | | | and Nenoana | + + + | Organization | [facility] | [...] + | Matthew Ramirez | CHRIS | [address] | | | | | [place] | | | | | [address] | | + + + + + Care Team Providers + +------+ + | Care Dog Food Dough Mixer Name | Role | Phone | + +------+ + PCP | Unavailable | + +------+ + Encounter Details +--------+ + + + + | Date | Type | Department | Care Team | Description | +--------+ + + + + | 03/20/ | Hospital | [facility] | | | | 1994 | Encounter | MED CTR XRAY [address] | | | | | | [place] | | | | | | [place] [address] | | | | | | [phone] | | | +--------+ + + + [...]
--- OUTSIDE RECORDS SUMMARY | ~2019-05-06 | XMS | Encounter Summary ---
Demographics + + + | Address | [address] | | | [place] [address] | + + + | Home Phone [...] + | Author | [facility] | | | and Nenoana | + + + | Organization | [facility] | [...] + | Matthew Ramirez | ECON | [address] | | | | | [place] | | | | | [address] | | + + + + + Care Team Providers + +------+ + | Care Director Of Purchasing Name | Role | Phone | + [...] / | Diagnoses | Gayla | [facility] | | | Services | General | 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 | General | | | Required | Surgery | adenocarcino | [address] | Surgery [address] | | | | | bhargav ([facility]) | [address] | [address] | | | | | | [place], [place] | [place], | | | | | | [address] | [place] [address] | | | | | | Phone: | Phone: | | | | | | [phone] | [phone] | | | | | | Fax: | Fax: | | | | | | [phone] | [phone] | +--------+ + + + + + Encounter Details +--------+---------+ + + + | Date | Type | Department | Care Team | Description | +--------+---------+ + + + | 01/07/ | Office | [facility] | Ana Mendez MD | Gastric | | 2019 | Visit | SURGERY [address] | [address] [facility] | adenocarcinoma (HCC) | | | | [place], [place] | [place] [address] | (Primary Dx) | | | | [address] | [phone] | | | | | [phone] | | | +--------+---------+ + + + [...] adenoma. COMMENT: A -- As part of [employer] Quality Improvement Program, this portion of the case h as been reviewed by another member of our pathology staff with subspecialty training in lisa rointestinal pathology. Results called to Dr. Shukla office ([place]) 12/24/18 10:15 AM. Discussed results on specimen [...] Impalnt Revision; Surgeon: Jose Randall DPM; Location: [facility] BLADDER REPAIR 1971 BLADDER SUSPENSION 2007 CARPAL TUNNEL RELEASE Bilateral CATARACT REMOVAL Right 03/2016 CHOLECYSTECTOMY, LAPAROSCOPIC 1997 COLECTOMY 2004 recurrent diverticulitis COLONOSCOPY 01/2018 One diminutive polyp COLONOSCOPY N/A 12/17/2018 Procedure: COLONOSCOPY; Surgeon: Matthew Shukla MD; Location: [facility] MEDICAL PROCEDURE UNIT FINGER SURGERY Left 2007 Thumb surgery for osteoarthritis FINGER SURGERY Left 11/2008 FINGER SURGERY Right 04/2012 Thumb surgery HAMMER TOE SURGERY Right 03/06/2017 Procedure: Correction Hammer Toes 2nd , 3rd, and 4th Toes; Surgeon: ANNIE Cuevas; Location: [facility] SURGERY HAMMER TOE SURGERY Left 07/04/2017 Procedure: CORRECTION HAMMERTOES 2, 3, 4; Surgeon: Jose Randall DPM; Location: [facility] [place] [facility] HAMMER TOE SURGERY Left 2018 x3 KNEE ARTHROSCOPY Right 2001 PUBOVAGINAL SLING 10/16/2010 TVT Retropubic sling at [facility] SIGMOID COLECTOMY 12/20/2002 Franck Davis MD - [facility] AND O 1996 TONSILLECTOMY AND ADENOIDECTOMY 1948 TOTAL KNEE ARTHROPLASTY Right 07/11/2011 TUBAL LIGATION 1976 UPPER GASTROINTESTINAL ENDOSCOPY N/A 12/17/2018 Procedure: EGD; Surgeon: Matthew Shukla MD; Location: [facility] MEDICAL PROCEDURE UNIT URETHROPEXY 07/11/2010 Revision [...] MCG tablet Take 800 mcg by mouth. Xmfqnsvirtv-Fdtavvguy-Nwt C-Mn (GLUCOSAMINE CHONDR 500 COMPLEX) CAPS 2 [...] has put in an urgent referral to [facility] erologist for a repeat EGD with additional [...] this chart may have been created with [employer] It [employer] Check voice recognition software. Occasi onal wrong-word or [...]
--- OUTSIDE RECORDS SUMMARY | ~2019-05-06 | XMS | Encounter Summary ---
Demographics + + + | Address | [address] | | | [place] [address] | + + + | Home Phone [...] | Author | [facility] | | | and Nenoana | + + + | Organization | [facility] | | [...] + | Matthew Ramirez | ECON | [address] | | | | | [place] | | | | | [address] | | + + + + + Care Team Providers + +------+ + | Care Supply Chain Design Manager Name | Role | Phone | [...] H/O neoplasm | | | | [place], [place] | | of uncertain | | | | [address] | | behavior of skin; | | | | [phone] | | Primary localized | | | [...] of this encounter Progress Notes Adia Rosario, MANAGER PROPERTY - 01/01/2019 11:27 AM PDTCT Chest Abdomen Pelvis w Contrast on 08/06/19 19 at [facility] FINDINGS: BONES: No osteoblastic or osteolytic [...]
--- OUTSIDE RECORDS SUMMARY | ~2019-05-06 | XMS | Encounter Summary ---
Demographics + + + | Address | [address] | | | [place] [address] | + + + | Home Phone [...] + | Matthew Ramirez | CHRIS | [address] | | | | | [place] | | | | | [address] | | + + + + + | Nella Haque | ECON | Unknown | | + + + + + Care Team Providers + +------+ + | Care Manager Lpn Name | Role | Phone | + +------+ + | Long Copeland MD | PCP | | + +------+ + Encounter Details +--------+ + + + + | Date | Type | Department | Care Team | Description | +--------+ + + + + | 10/10/ | Outside | UNKNOWN DEPARTMENT | Other, Faculty | | | 2019 | Records | [address] [facility] | [phone] | | | | | [address] | | | | | | [place], [place] | | | | | | [address] | | | +--------+ + + + [...]
--- OUTSIDE RECORDS SUMMARY | ~2019-05-06 | XMS | Encounter Summary ---
Demographics + + + | Address | [address] | | | [place] [address] | + + + | Home Phone [...] Author | [facility] | | | and Nenoana | + + + | Organization | [facility] | | [...] + | Matthew Ramirez | ECON | [address] | | | | | [place] | | | | | [address] | | + + + + + Care Team Providers + +------+ + | Care Veneer Slicing Machine Operator Name | Role | Phone [...] | | | [place], [place] | [place] [address] | | | | | [address] | [phone] | | | | | [phone] | | | +--------+---------+ + + + [...] Care Everywhere.Foot Surgery: Maurice pace Fifth Toe (Bulgarian)Foot Surgery: Flexible and Rigid Hammertoes (Bulgarian)Mallet, Hammer , and Claw Toes, Treating (Bulgarian)Mallet, Hammer, and Claw Toes, What Are (Bulgarian)document ed in this encounter Medications at Time [...]
--- OUTSIDE RECORDS SUMMARY | ~2019-05-06 | XMS | Encounter Summary ---
Demographics + + + | Address | [address] | | | [place] [address] | + + + | Home Phone [...] + | Matthew Ramirez | CHRIS | [address] | | | | | [place] | | | | | [address] | | + + + + + | Nella Haque | ECON | Unknown | | + + + + + Care Team Providers + +------+ + | Care Vocal Teacher Name | Role | Phone | [...] | | | | ma (HCC) | [place], | | | | | | Procedures | [place] | | | | | | CT ABDOMEN | [address] | | | | | | AND PELVIS W | Phone: | | | | | | IV CONTRAST | [phone] | | | | | | | Fax: | | | | | | | [phone] | | + +--------+ + + + [...] | | | | ma (HCC) | [place], | | | | | | Procedures | [place] | | | | | | [place] | [address] | | | | | | CONTRAST | Phone: | | | | | | | [phone] | | | | | | | Fax: | | | | | | | [phone] | | + +--------+ + + + + Encounter Details +--------+ + + + + | Date | Type | Department | Care Team | Description | +--------+ + + + + | 01/28/ | Gauge Maker Apprentice | Surgical Oncology | Cristel Galicia MD | Gastric | | 2019 | | at [facility] [address] | [address] | adenocarcinoma (HCC) | | | | [address] Mail Code: | [place], [place] | (Primary Dx) | | | | [place] [facility] | [address] | | | | | and Healing, | [phone] | | | | | [address] | | | | | | [place], [place] | | | | | | [address] | | | | | | [phone] | | | +--------+ + + + [...]
--- OUTSIDE RECORDS SUMMARY | ~2019-05-06 | XMS | Encounter Summary ---
Demographics + + + | Address | [address] | | | [place] [address] | + + + | Home Phone [...] [facility] | | | and [place]enoana | + + + | Organization | [facility] | | [...] + | Matthew Ramirez | ECON | [address] | | | | | [place] | | | | | [address] | | + + + + + Care Team Providers + +------+ + | Care Director Airport Name | Role | Phone | + [...] + | 01/25/ | Telephone | [facility] | Arpan, | Family/caregiver | | 2019 | | MED [facility] | Luis Richards MD [address] | Concerns | | | | ONCOLOGY CLINIC [address] | [facility] | | | | | [address] | [place] [address] | | | | | [place] [address] | [phone] | | | | | [phone] | | | +--------+ + + + [...]
--- OUTSIDE RECORDS SUMMARY | ~2019-05-06 | XMS | Encounter Summary ---
Demographics + + + | Address | [address] | | | [place] [address] | + + + | Home Phone [...] + + | Author | [facility] | | | and [place]eno[place] | + + + | Organization | [facility] | | [...] + | Matthew Ramirez | ECON | [address] | | | | | [place] | | | | | [address] | | + + + + + Care Team Providers + +------+ + | Care Needle Bar Molder Name | Role | Phone | [...] | | | | | | | [place] REPAIR OF | | | | | [...] Event | HOSPITAL OR INTRA OP | RADIOLOGY TECHNICIAN [address] | | | | | [address] | [place] [address] | | | | | [place], [place] | [phone] | | | | | [address] | | | | | | [phone] | | | +--------+ + + + + Anesthesia Record + + + + + | Procedure Name | Responsible | Anesthesia Start | Anesthesia Stop Time | | | Anesthesiologist | Time | | + + + + + | ARTHROPLASTY 3rd and | Mayank Honeycutt, | 02/13/18 1306 | 02/13/18 1440 | | 4th Digits with | RADIOLOGY TECHNICIAN | | | | Impalnt Revision | [...] Pt A&O x3, comfortable, conversing, return to [facility] in bed. | | | 4 [...] 1530 by | | eral | Antecubital; [id number] | Steve Parry RN | [place] [...]
--- OUTSIDE RECORDS SUMMARY | ~2019-05-06 | XMS | Encounter Summary ---
Demographics + + + | Address | [address] | | | [place] [address] | + + + | Home Phone [...] + | Matthew Ramirez | CHRIS | [address] | | | | | [place] | | | | | [address] | | + + + + + | Nella Haque | ECON | Unknown | | + + + + + Care Team Providers + +------+ + | Care Aluminum Molding Machine Operator Name | Role | Phone [...] | | | | ma (HCC) | [place], | | | | | | Procedures | [place] | | | | | [place] | [address] | | | | | | CONTRAST | Phone: | | | | | | | [phone] | | | | | | | Fax: | | | | | | | [phone] | | + +--------+ + + + [...] | | | | ma (HCC) | [place], | | | | | | Procedures | [place] | | | | | | [place] | [address] | | | | | | CONTRAST | Phone: | | | | | | | [phone] | | | | | | | Fax: | | | | | | | [phone] | | + +--------+ + + + + Encounter Details +--------+ + + + + | Date | Type | Department | Care Team | Description | +--------+ + + + + | 02/02/ | Hospital | Radiology/Imaging | Cristel Galicia MD | | | 2019 | Encounter | Lab at [facility] [address] | [address] | | | | | [address] Mailcode: | [place], [place] | | | | | [address] | [address] | | | | | Health and Healing, | [phone] | | | | | [address] | | | | | | Floor [place], [place] | | | | | | [address] | | | | | | [phone] | | | +--------+ + + + [...] nostril | | | | | | [place] | once daily. | | | | [...]
--- OUTSIDE RECORDS SUMMARY | ~2019-05-06 | XMS | Encounter Summary ---
Demographics + + + | Address | [address] | | | [place] [address] | + + + | Home Phone [...] Author | [facility] | | | and [place] | + + + | Organization | [facility] | | | and [place] | [...] + | Matthew Ramirez | CHRIS | [address] | | | | | [place] | | | | | [address] | | + + + + + Care Team Providers + +------+ + | Care Electric Golf Cart Repairers Name | Role | Phone | + +------+ + PCP | Unavailable | + +------+ + Encounter Details +--------+ + + + + | Date | Type | Department | Care Team | Description | +--------+ + + + + | 06/27/ | Hospital | [facility] | | | | 2003 | Encounter | MED CTR XRAY [address] | | | | | | [place] | | | | | | [place] [address] | | | | | | [phone] | | | +--------+ + + + [...]
--- OUTSIDE RECORDS SUMMARY | ~2019-05-06 | XMS | Encounter Summary ---
Demographics + + + | Address | [address] | | | [place] [address] | + + + | Home Phone [...] + | Author | [facility] | | | and [place]enoana | + + + | Organization | [facility] | | [...] + | Matthew Ramirez | ECON | [address] | | | | | [place] | | | | | [address] | | + + + + + Care Team Providers + +------+ + | Care Taffy Puller Name | Role | Phone | [...] | | | | | | [place] REPAIR OF | | | | | [...] Event | HOSPITAL OR INTRA OP | ELEMENTARY SCHOOL ART TEACHER [address] | | | | | [address] | [place] [address] | | | | | [place], [place] | [phone] | | | | | [address] | | | | | | [phone] | | | +--------+ + + + + Anesthesia Record + + + + + | Procedure Name | Responsible | Anesthesia Start | Anesthesia Stop Time | | | Anesthesiologist | Time | | + + + + + | ARTHROPLASTY 3rd and | Mayank Honeycutt, | 02/13/18 1306 | 02/13/18 1440 | | 4th Digits with | ELEMENTARY SCHOOL ART TEACHER | | | | Impalnt Revision | [...] Pt A&O x3, comfortable, conversing, return to [facility] in bed. | | | 4 [...] 1530 by | | eral | Antecubital; [id number] | Steve Parry RN | [place] [...]
--- OUTSIDE RECORDS SUMMARY | ~2019-05-06 | XMS | Encounter Summary ---
Demographics + + + | Address | [address] | | | [place] [address] | + + + | Home Phone [...] + | Matthew Ramirez | CHRIS | [address] | | | | | [place] | | | | | [address] | | + + + + + | Nella Haque | ECON | Unknown | | + + + + + Care Team Providers + +------+ + | Care Consumer Science Teacher Name | Role | Phone | [...] | | 2019 | | Oncology at [place] | [address] | (tamoxifen) | | | | for Health & Healing | [facility], | | | | | [address] | [place] [address] | | | | | Mailcode: [place] | | | | | | for Health and | | | | | | Healing, [facility] | | | | | | [place], [place] | | | | | | [address] | | | | | | [phone] | | | +--------+ + + + [...]
--- OUTSIDE RECORDS SUMMARY | ~2019-05-06 | XMS | Encounter Summary ---
Demographics + + + | Address | [address] | | | [place] [address] | + + + | Home Phone [...] Author | [facility] | | | and [place]eno[place] | + + + | Organization | [facility] [...] + | Matthew Ramirez | CHRIS | [address] | | | | | [place] | | | | | [address] | | + + + + + Care Team Providers + +------+ + | Care Etcher Electrolytic Name | Role | Phone | + +------+ + PCP | Unavailable | + +------+ + Encounter Details +--------+ + + + + | Date | Type | Department | Care Team | Description | +--------+ + + + + | 12/08/ | Hospital | [facility] | [place], | | | 2009 | Encounter | MED CTR GENERIC OP | Katerin Xavier MD | | | | | CONV DEPT [address] | | | | | | [place], | | | | | | [place] [address] | | | | | | [phone] | | | +--------+ + + + [...]
--- OUTSIDE RECORDS SUMMARY | ~2019-05-06 | XMS | Encounter Summary ---
Demographics + + + | Address | [address] | | | [place] [address] | + + + | Home Phone [...] | Author | [facility] | | | and [place] | + + + | Organization | [facility] [...] + | Matthew Ramirez | ECON | [address] | | | | | [place] | | | | | [address] | | + + + + + Care Team Providers + +------+ + | Care Cork Tile Floor Layer Name | Role | Phone | + [...] [place] | | | | | [phone] | [place] [address] | | +--------+ + + + + [...]
--- OUTSIDE RECORDS SUMMARY | ~2019-05-06 | XMS | Encounter Summary ---
Demographics + + + | Address | [address] | | | [place] [address] | + + + | Home Phone [...] | [facility] | | | and [place]eno[place] | + + + | Organization | [facility] | [...] + | Matthew Ramirez | ECON | [address] | | | | | [place] | | | | | [address] | | + + + + + Care Team Providers + +------+ + | Care Health Policy Nurse Name | Role | Phone | [...] | | | | | adenocarcino | [place], | MEDICAL | | | | | ma (HCC) | [place] | [place] [address] | | | | | Procedures | [address] | [place] | | | | | PET CT Skull | Phone: | [place], | | | | | [place] | [phone] | [place] [address] | | | | | Thigh | Fax: | Phone: | | | | | | [phone] | [phone] | | | | | | | Fax: | | | | | | | [phone] | + +--------+ + + + + [...] | | | | | adenocarcino | [place], | [facility] | | | | | ma (HCC) | [place] | [place] [address] | | | | | Procedures | [address] | [place] | | | | | PET CT Skull | Phone: | [place], | | | | | [place] | [phone] | [place] [address] | | | | | Thigh | Fax: | Phone: | | | | | | [phone] | [phone] | | | | | | | Fax: | | | | | | | [phone] | + +--------+ + + + + Encounter Details +--------+ + + + + | Date | Type | Department | Care Team | Description | +--------+ + + + + | 10/ | Hospital | [facility] | Cristel Galicia MD | Tumor; Gastric | | 2019 | Encounter | MED CTR PET SCAN | [address] | adenocarcinoma (HCC) | | | | [address] [place] [address] | [place], [place] | | | | | [place] [address] | [address] | | | | | [phone] | [phone] | | | | | | | [...] the common bile duct. | | | Rthh-hl-ccib and in the right aspect of L4. [...] | |dilatation of the common bile duct. Lfyj-wx-vsjv and in the right aspect of L4. [...] | | of the common bile duct. Tevc-rx-zsel and in the right aspect of L4.IMPRESSION: [...] | |dilatation of the common bile duct. Szps-aw-vhtn and in the right aspect of L4. [...]
--- OUTSIDE RECORDS SUMMARY | ~2019-05-06 | XMS | Encounter Summary ---
Demographics + + + | Address | [address] | | | [place] [address] | + + + | Home Phone [...] + | Matthew Ramirez | CHRIS | [address] | | | | | [place] | | | | | [address] | | + + + + + | Nella Lowery ECON | Unknown | | + + + + + Care Team Providers + +------+ + | Care Roller Painter Name | Role | Phone | + [...] | 2019 | marv | [address] [facility] | [address] | | | | | Rd [place], [place] | [place], [place] | | | | | [address] | [address] | | | | | | [phone] | | | | | | | [...]
--- OUTSIDE RECORDS SUMMARY | ~2019-05-06 | XMS | Encounter Summary ---
Demographics + + + | Address | [address] | | | [place] [address] | + + + | Home Phone [...] Author | [facility] | | | and [place] | + + + | Organization | [facility] [...] + | Matthew Ramirez | CHRIS | [address] | | | | | [place] | | | | | [address] | | + + + + + Care Team Providers + +------+ + | Care Bag Mender Name | Role | Phone | + +------+ + PCP | Unavailable | + +------+ + Encounter Details +--------+ + + + + | Date | Type | Department | Care Team | Description | +--------+ + + + + | 12/30/ | Hospital | [facility] | | | | 2001 | Encounter | MED CTR XRAY [address] | | | | | | [place] | | | | | | [place] [address] | | | | | | [phone] | | | +--------+ + + + [...]
--- OUTSIDE RECORDS SUMMARY | ~2019-05-06 | XMS | Encounter Summary ---
Demographics + + + | Address | [address] | | | [place] [address] | + + + | Home Phone [...] + | Author | [facility] | | | and [place] | + + + | Organization | [facility] | | [...] + | Matthew Ramirez | ECON | [address] | | | | | [place] | | | | | [address] | | + + + + + Care Team Providers + +------+ + | Care Strip Polisher Name | Role | Phone | + [...] | | | [place], [place] | [place] [address] | | | | | [address] | [phone] | | | | | [phone] | | | +--------+---------+ + + + [...] Care Everywhere.Foot Surgery: Maurice pace Fifth Toe (Honduran)Foot Surgery: Flexible and Rigid Hammertoes (Honduran)Mallet, Hammer , and Claw Toes, Treating (Honduran)Mallet, Hammer, and Claw Toes, What Are (Honduran)document ed in this encounter Medications at Time [...]
--- OUTSIDE RECORDS SUMMARY | ~2019-05-06 | XMS | Encounter Summary ---
Demographics + + + | Address | [address] | | | [place] [address] | + + + | Home Phone [...] | Author | [facility] | | | and [place] | + + + | Organization | [facility] [...] + | Matthew Ramirez | ECON | [address] | | | | | [place] | | | | | [address] | | + + + + + Care Team Providers + +------+ + | Care Tugboat Dispatcher Name | Role | Phone | + [...] Event | HOSPITAL OR INTRA OP | [facility] [address] | | | | | [address] | [place] [address] | | | | | [place], [place] | [phone] | | | | | [address] | | | | | | [phone] | | | +--------+ + + + + Anesthesia Record + + + + + | Procedure Name | Responsible | Anesthesia Start | Anesthesia Stop Time | | | Anesthesiologist | Time | | + + + + + | ARTHROPLASTY 3rd and | Mayank Honeycutt, | 02/13/18 1306 | 02/13/18 1440 | | 4th Digits with | [employer] LEAD | | | | Impalnt Revision | [...] Pt A&O x3, comfortable, conversing, return to [facility] in bed. | | | 4 [...] 1530 by | | eral | Antecubital; [id number]-[id number] | Steve Parry RN | [place] [...]
--- OUTSIDE RECORDS SUMMARY | ~2019-05-06 | XMS | Encounter Summary ---
Demographics + + + | Address | [address] | | | [place] [address] | + + + | Home Phone [...] + | Matthew Ramirez | CHRIS | [address] | | | | | [place] | | | | | [address] | | + + + + + | Nella Lowery ECON | Unknown | | + + + + + Care Team Providers + +------+ + | Care Pellet Post Inspector Name | Role | Phone | [...] | | at [address] | [facility] | | | | | [address] | [place] [address] | | | | | Loop Mailcode: | | | | | | [id number] [facility] | | | | | | [facility] | | | | | | [place], [place] | | | | | | [address] | | | | | | [phone] | | | +--------+ + + + [...] nostril | | | | | | [place] | once daily. | | | | [...] view image for the detailed interpretation from [employer] results. | CARDIOLOGY | + + + + + + + + | Performing | Address | City/State/Zipcode | Phone Number | | Organization | | | | + + + + + | [facility] | [address] | [place], [place] | | | CARDIOLOGY | [address] | [address] | | + + + + + documented in this encounter Visit Diagnoses Not on filedocumented in this encounter
--- OUTSIDE RECORDS SUMMARY | ~2019-05-06 | XMS | Clinical Summary ---
Demographics + + + | Address | [address] | | | [place] [address] | + + + | Home Phone [...] + | Matthew Ramirez | ECON | [address] | | | | | [place] | | | | | [address] | | + + + + + | Nella Haque | ECON | Unknown | | + + + + + Care Team Providers + +------+ + | Care Infrastructure Manager Name | Role | Phone | + +------+ + | Long Copeland MD | PCP | | + +------+ + Source Comments MEÑO is fully live on both [facility] and [facility] InPatient.[facility] Allergies + + + + [...] | | | | e | | Mans[place] | once daily. | | | | [...] + + + + | 03/04/ | Sales Utility Representative | Surgical Oncology | Cristel Galicia [...] | | | | | | | [address] | | + +--------+ +--------+ + +--------+ | MODA MEDICARE | MODA | xxxxxxxxx | 05/12/19 | [phone] | [address] | [address] | | SUPPLEMENT | MEDICA | | 19-Pre | 4 | [phone] | | | | RE | | sent | | [place], | | | | SUPPLE | | | | [place] [address] | | | | MENT | | [...] Person | Self | [birth year] | | [address] | | | al/Rene | | 1941 | [phone] | [place] | | | [place] | | | 9 (Home) | [address] | + +--------+ +--------+ + + Advance [...]
--- OUTSIDE RECORDS SUMMARY | ~2019-05-06 | XMS | Encounter Summary ---
Demographics + + + | Address | [address] | | | [place] [address] | + + + | Home Phone [...] | Author | [facility] | | | and Nenoana | + + + | Organization | [facility] | [...] + | Matthew Ramirez | ECON | [address] | | | | | [place] | | | | | [address] | | + + + + + Care Team Providers + +------+ + | Care Truck Guard Name | Role | Phone | + [...] | | [address] | [place] [address] | | | | | [address] | | | | | | [phone] | | | +--------+ + + + [...]
--- OUTSIDE RECORDS SUMMARY | ~2019-05-06 | XMS | Encounter Summary ---
Demographics + + + | Address | [address] | | | [place] [address] | + + + | Home Phone [...] + | Matthew Ramirez | CHRIS | [address] | | | | | [place] | | | | | [address] | | + + + + + | Nella Haque | ECON | Unknown | | + + + + + Care Team Providers + +------+ + | Care Entry Level Marketing Assistant Name | Role | Phone | [...] | | | | CONSULT TO | [place], | Mailcode: | | | | | HEMATOLOGY / | [place] | [facility] | | | | | ONCOLOGY | [address] | Health and | | | | | PRACTICE | Phone: | [place], | | | | | | [phone] | [address] | | | | | | Fax: | [place], [place] | | | | | | [phone] | [address] | | | | | | | Phone: | | | | | | | [phone] | | | | | | | Fax: | | | | | | | [phone] | + +---------+ + + + + Encounter Details +--------+---------+ + + + | Date | Type | Department | Care Team | Description | +--------+---------+ + + + | 03/18/ | Office | Hematology/Medical | Rodriguez Bower MD | Breast cancer | | 2019 | Visit | [facility] at [facility] | [address] | metastasized to | | | | for Health & Healing | [place], [place] | multiple sites, | | | | [address] | [address] | unspecified | | | | Mailcode: [facility] | [phone] | laterality (HCC) | | | | for Health and | | (Primary Dx) | | | | Healing, [address] | | | | | | [place], [place] | | | | | | [address] | | | | | | [phone] | | | +--------+---------+ + + + [...] diverticular disease s/p sigmoid brandon ctomy (2002), [facility] for cervical cancer (1973), who recently underwent [...] due to this pain. She lives in [place] with her , whom she cares for [...] adenocarcinoma -saw Dr. Antony of oncology at [facility], discussed getting EUS for further evaluati on [...] 300 mg by mouth three times daily. Ahupmhbyeem-Orvcepgkx-Avh C-Mn (GLUCOSAMINE CHONDROITIN MAXSTR) 500-400 mg Oral [...] the evening. triamcinolone 55 mcg Nasal Aerosol, Watson, Instill 2 Sprays into each nostril once [...] file Gets together: Not on file Attends roman catholic service: Not on file Active member of club or organization: Not on file Attends meetings of clubs or organizations: Not on file Relationship status: Not on file Other Topics Concern Not on file Social History Narrative [place] 34[place]. Son in [place]. 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 Now traveling memorial [...] Diagnosis 1. Multiple specimens A to F (-[id number]; 01/13/19): A. Stomach, antrum at great curvature, [...] Pathology Resident Bonifacio Resendez MD Pathologist Pathology, [facility] My electronic signature indicates that [...] Ramona Taylor MD Hematology/Oncology Fellow PGY-5 Pager [phone] Associated attestation - Rodriguez Bower MD - [...] contact their office Rodriguez Bower MD, MS ID#[id number] Intensive Care Unit Registered Nursebiology internship Division of Hematology and Medical Oncology [facility] Pager#[phone] documented in this encounter Plan of Treatment Not on filedocumented as of this encounter Visit Diagnoses + + | Diagnosis | + + | Breast cancer metastasized to multiple sites, unspecified laterality (HCC) - Primary | + + documented in this encounter"
--- OUTSIDE RECORDS SUMMARY | ~2019-05-06 | XMS | Encounter Summary ---
Demographics + + + | Address | [address] | | | [place] [address] | + + + | Home Phone [...] | Author | [facility] | | | and Nenoana | + + + | Organization | [facility] | | | and Nenoana [...] + | Matthew Ramirez | ECON | [address] | | | | | [place] | | | | | [address] | | + + + + + Care Team Providers + +------+ + | Care Research Manufacturing Operator Name | Role | Phone | [...] + + | 01/15/ | Telephone | [facility] | Arpan, | Patient Concerns | | 2019 | | MED [facility] | Luis Richards MD [address] | | | | | ONCOLOGY CLINIC [address] | [facility] | | | | | [address] [place] | [place] [address] | | | | | [place] [address] | [phone] | | | | | [phone] | | | +--------+ + + + [...]
--- OUTSIDE RECORDS SUMMARY | ~2019-05-06 | XMS | Encounter Summary ---
Demographics + + + | Address | [address] | | | [place] [address] | + + + | Home Phone [...] Author | [facility] | | | and Nenoana | + + + | Organization | [facility] | | | and Nenoana [...] + | Matthew Ramirez | ECON | [address] | | | | | [place] | | | | | [address] | | + + + + + Care Team Providers + +------+ + | Care Senior Program Manager Name | Role | Phone [...] | | ma (HCC) | [address] | [place] | | | | | | [place] | [place], | | | | | | [address] | [place] [address] | | | | | | Phone: | Phone: | | | | | | [phone] | [phone] | | | | | | Fax: | Fax: | | | | | | [phone] | [phone] | +--------+ + + + + + [...] W | | | | | bhargav ([facility]) | BL[address] | [place] | | | | | | [place], [place] | [place], | | | | | | [address] | [place] [address] | | | | | | Phone: | Phone: | | | | | | [phone] | [phone] | | | | | | Fax: | Fax: | | | | | | [phone] | [phone] | +--------+ + + + + + Encounter Details +--------+ + + + + | Date | Type | Department | Care Team | Description | +--------+ + + + + | 01/05/ | Hospital | [facility] | Arpan, | Gastric | | 2019 | Encounter | [facility] MED[facility] | Luis Richards MD [address] | adenocarcinoma | | | | ONCOLOGY CLINIC [address] | [address] [place] | (HCC); Malignant | | | | [address] [place] | [place] [address] | neoplasm of | | | | [place] [address] | [phone] | overlapping sites of | | | | [phone] | | stomach (HCC) | +--------+ + [...] adenocarcinoma (HCC) | starting 01/05/2019 | | ([facility]) | | | | until 01/05/2019 | [...]
--- OUTSIDE RECORDS SUMMARY | ~2019-05-06 | XMS | Encounter Summary ---
Demographics + + + | Address | [address] | | | [place] [address] | + + + | Home Phone [...] Author | [facility] | | | and Nenoana | + + + | Organization | [facility] | [...] [place] | | | | | [address] | | + + + + + Care Team Providers + +------+ + | Care Stock Broker Supervisor Name | Role | Phone | [...] | | | unspecified | | [place] [address] | | | | | type | | Phone: | | | | | Chronic | | [phone] | | | | | abdominal | | Fax: | | | | | pain | | [phone] | | | | | Benzodiazepi | [...] | | | | | [address] | [address] [facility] | | | | | [address] | [place] [address] | | | | | [address] | [phone] | | | | | [phone] | | | +--------+ + + + [...] 12/17/18 1622 by | | nicolas | iixl-xah-xkjvfz catheter system; | Gris Davis RN | [...]
--- OUTSIDE RECORDS SUMMARY | ~2019-05-06 | XMS | Encounter Summary ---
Demographics + + + | Address | [address] | | | [place] [address] | + + + | Home Phone [...] + + | Author | [facility] | | | and Nenoana | + + + | Organization | [facility] | | [...] + | Matthew Ramirez | ECON | [address] | | | | | [place] | | | | | [address] | | + + + + + Care Team Providers + +------+ + | Care Jewelry Casting Model Maker Name | Role | Phone | [...] | 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 | [address] [place] | | | | | adenocarcino | [address] | [place], | | | | | ma (HCC) | [address]VD | [place] [address] | | | | | Procedures | [place], [place] | Phone: | | | | | CT Chest | [address] | [phone] | | | | | Abdomen | Phone: | Fax: | | | | | Pelvis w | [phone] | [phone] | | | | | Contrast | Fax: | | | | | | CHG CT | [phone] | | | | | | SCAN,ABDOMEN [...] | 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 | [address] [place] | | | | | adenocarcino | [address] | [place], | | | | | ma (HCC) | [address] | [place] [address] | | | | | Procedures | [place], [place] | Phone: | | | | | CT Chest | [address] | [phone] | | | | | Abdomen | Phone: | Fax: | | | | | Pelvis w | [phone] | [phone] | | | | | Contrast | Fax: | | | | | | CHG CT | [phone] | | | | | | SCAN,ABDOMEN [...] + + | 12/31/ | Hospital | [facility] | Matthew Shukla MD | Gastric | | 2019 | Encounter | MED [facility] [address] | [address] | adenocarcinoma (HCC) | | | | [place], | [place], [place] | | | | | [place] [address] | [address] | | | | | [phone] | [phone] | | | | | | | [...]
--- OUTSIDE RECORDS SUMMARY | ~2019-05-06 | XMS | Encounter Summary ---
Demographics + + + | Address | [address] | | | [place] [address] | + + + | Home Phone [...] | Author | [facility] | | | and Nenoana | + + + | Organization | [facility] | | [...] + | Matthew Ramirez | ECON | [address] | | | | | [place] | | | | | [address] | | + + + + + Care Team Providers + +------+ + | Care Manager Portable Name | Role | Phone | + [...] + + | 12/24/ | Telephone | [facility] | Matthew Shukla MD | Results | | 2019 | | GASTROENTEROLOGY | [address] [facility] | | | | | [address] [facility] | [place], [place] | | | | | [address] [place], [place] | [address] | | | | | [address] | [phone] | | | | | [phone] | | | +--------+ + + + [...]
--- OUTSIDE RECORDS SUMMARY | ~2019-05-06 | XMS | Clinical Summary ---
Demographics + + + | Address | [address] | | | [place] [address] | + + + | Home Phone [...] Author | [facility] | | | and Nenoana | + + + | Organization | [facility] | | | and Nenoana [...] + | Matthew Ramirez | ECON | [address] | | | | | [place] | | | | | [address] | | + + + + + Care Team Providers + +------+ + | Care Band Saw Runner Name | Role | Phone | [...] 2003.2. Screening | | colonoscopy in 2009 ([place]) notable for polyps.3. Chronic | | abdominal pain, evaluated by Dr. Julien Francisco in 2015. Colonoscopy | | on October 30, 2015 ([facility]) was notable for 3 tubular adenomas and | | one hyperplastic polyp.4. Repeat colonoscopy January 26, 2018 | | ([facility]) notable for a tubular adenoma.5. Admit [facility], October 18, 2017 | | for partial small bowel obstruction. CT scan of abdomen/pelvis | | with contrast demonstrated small bowel obstruction. Symptoms | | resolved with conservative management.6. Presentation on July | | 2018 with abdominal pain, nausea and one episode of vomiting. | | CT abdomen/pelvis with contrast August 05, 2018 at [place] | | [facility] in [facility] demonstrated no acute inflammatory | | changes in the abdomen or pelvis.7. EGD/ Colonoscopy with random | | biopsies by Dr. Shukla, [facility] on December 17, 2018; Specimen # | | [id number] ([place]). "A-Mucosa, stomach, | | biopsy-infiltrating gastric adenocarcinoma." Specimens | | B-duodenum, C-antrum, D-gastroesophageal junction, E-ascending | | colon, F-transverse colon, G-descending colon, and H, sigmoid | | colon were all negative for invasive malignancy.8. CT | | chest/abdomen/pelvis on December 31, 2018; No concerning gastric | | mass, no findings to suggest metastatic disease. Last Assessment | | & Plan: Ashly Rmairez is referred by Matthew Shukla Md | | [address] [place] [address] for evaluation | | and management of gastric adenocarcinoma.I met with Ashly and her | | daughter Nella, on 01/05/2019 at the [facility] | | Cancer Center. The [...] with Dr. | | Guevara Ernandez at [facility], who affirmed that the biopsy could be | | consistent with Linitis Plastica. Dr. Shukla agreed that the lack | | of endoscopic or radiographic findings is atypical and agreed | | that endoscopic ultrasound is indicated for further evaluation. | | Dr. Shukla' office will co-ordinate endoscopic ultrasound with | | [facility] in [place]. I will follow up with | | Ashly Ramirez after her next procedure to review the results | | and to establish a plan of management. | + + + + + | Rectal bleeding | 12/16/2018 | + + + + + | Overview: Added automatically from request for surgery | | [id number] | + + + + + | Diarrhea, unspecified type | 12/16/2018 | + + + + + | Overview: Added automatically from request for surgery | | [id number] | + + + + + | Chronic abdominal pain | 12/16/2018 | + + + + + | Overview: Added automatically from request for surgery | | [id number] | + + + + + | Benzodiazepine dependence | 12/16/2018 | + + + + + | Overview: Added automatically from request for surgery | | [id number] | + + + + + | Narcotic dependence, episodic use | 12/16/2018 | + + + + + | Overview: Added automatically from request for surgery | | [id number] | + + + + + | LUQ pain | 12/16/2018 | + + + + + | Overview: Added automatically from request for surgery | | [id number] | + + + + + | Alternating constipation and diarrhea | 12/16/2018 | + + + + + | Overview: Added automatically from request for surgery | | [id number] | + + + + + | Hematochezia | 12/16/2018 | + + + + + | Overview: Added automatically from request for surgery | | [id number] | + + + + + | Weight loss, unintentional | 12/16/2018 | + + + + + | Overview: Added automatically from request for surgery | | [id number] | + + + + + | [...] | + + + + | INFLUENZA, [id number], | 04/29/2009 | | | UNSPECIFIED | [...] | Left: | CONMED | | | [id number] | | on 07/04/2017 by Prakash, | | Toe | JOHN- 14633 | | | [address] | | Jose Sanon DPM at [facility] | | | | | | /[id number] | | [facility] | | | | | | 258710 | | | | | | | | 361141 | | | | | | | | 493877 | | | | | | | | 248627 | | | | | | | | 472794 | | | | | | | | | | | | | | | | /36374 | | | | | | | | 6 | + +------+--------+ +--------+--------+--------+ | .045 C-WireImplanted: Qty: 1 | | Left: | CONMED | | | [id number] | | on 07/04/2017 by Prakash, | | Toe | CONMED | | | 05191 | | Jose Sanon DPM at [facility] | | | JOHN. | | | /[address] | | [facility] | | | | | | 815110 | | | | | | | | 314181 | | | | | | | | 764337 | | | | | | | | 401349 | | | | | | | | 403235 | | | | | | | | | | | | | | | | /11083 | | | | | | | | 7 | + +------+--------+ +--------+--------+--------+ | .045 C-WireImplanted: Qty: 1 | | Left: | CONMED | | | [id number] | | on 07/04/2017 by Prakash | | Toe | CONMED | | | [address] | | Jose Sanon DPM at [facility] | | | JOHN. | | | /28043 | | [facility] | | | | | | 703024 | | | | | | | | 320094 | | | | | | | | 088481 | | | | | | | | 871575 | | | | | | | | 284765 | | | | | | | | | | | | | | | | /19332 | | | | | | | | 6 | + +------+--------+ +--------+--------+--------+ | Pip DartImplanted: Qty: 1 on | | Right: | ARTHREX | | 06/11/ | AR-415 | | 02/13/2018 by Jose Randall | | Toe | ARTHREX | | 2021 | 5PS-30 | Beverley Sanon DPM at [facility] | | | INC. | | | 10 | | [facility] | | | | | | /+$$80 | | | | | | | | [id number] | | | | | | | | 375762 | | | | | | | | 77U | | | | | | | | /88042 | | | | | | | | 817 | + +------+--------+ +--------+--------+--------+ | Pip Dart Implanted: Qty: 1 on | | Right: | ARTHREX | | 11/08/ | AR-415 | | 02/13/2018 by Prakash, | | Toe | ARTHREX | | 2022 | 4PS-30 | | Jose Sanon DPM at [facility] | | | INC[employer] | | | 10 | | [facility] | | | | | | /+$$80 | | | | | | | | 813540 | | | | | | | | 640768 | | | | | | | | 47$ | | | | | | | | /59589 | | | | | | | [...] Toe | ARTHREX | | 2020 | /23190 | | Qty: 1 on 02/13/2018 at [facility] | | | INC. | | | [id number] | | [facility] | | | | | | 180391 | | | | | | | | 959216 | | | | | | | | 016041 | | | | | | | | 115050 | | | | | | | | 761 | | | | | | | | /13778 | | | | | | | [...] the common bile duct. | | | Qkzx-kb-zjrj and in the right aspect of L4. [...] | |dilatation of the common bile duct. Teyn-gi-gbuw and in the right aspect of L4. [...] | | of the common bile duct. Kjal-bj-kzwu and in the right aspect of L4.IMPRESSION: [...] | |dilatation of the common bile duct. Dkgh-ai-abmg and in the right aspect of L4. [...] + +--------+ | MEDICARE | MEDICA | [id number] | 10/11/19 | [phone] | | Medica | | | RE | | 04-Pre | 5 | | re | | | PART A | | sent | | | | | | AND B | | | | | | + +--------+ +--------+ + +--------+ | MODA | MODA | [id number] | 05/12/19 | [id number] | [address] | Indemn | | | HEALTH | | 17-Pre | 9 | [address] | ity | | | MDCR | | sent | | [place], | | | | [place] | | | | [place] [address] | | + +--------+ +--------+ + +--------+ | MEDICARE | MEDICA | [id number] | 10/11/19 | [phone] | | Medica | | | RE | | 04-Pre | 5 | | re | | | PART A | | sent | | | | | | AND B | | | | | | + +--------+ +--------+ + +--------+ | MODA | MODA | [id number] | 05/12/19 | [id number] | [address] | Indemn | | | HEALTH | | 19-Pre | 9 | [address] | ity | | | MDCR | | sent | | [place], | | | | [place] | | | | [place] [address] | | + +--------+ +--------+ + +--------+ + +--------+ +--------+ + + | Guarantor Name | Accoun | Relation to | Date | Phone | Billing Address | | | t Type | Patient | of | | | | | | | | | | + +--------+ +--------+ + + | Ashly Ramirez | Person | Self | [birth year] | | [address] | | | al/Fam | | 1941 | [phone] | [place], [place] | | | amrik | | | 9 (Home) | [address] | + +--------+ +--------+ + + | Ashly Ramirez | Person | Self | [birth year] | | [address] | | | al/Fam | | 1941 | [phone] | [place], [place] | | | amrik | | | 9 (Home) | [address] | + +--------+ +--------+ + + Advance Directives + + + + + | Type | Date Recorded | Patient | Explanation | | | | Rn Float | | + + + + + | Power of | | | | | Hand Candle Dipper | | | | + + + [...]
--- OUTSIDE RECORDS SUMMARY | ~2019-05-06 | XMS | Encounter Summary ---
Demographics + + + | Address | [address] | | | [place] [address] | + + + | Home Phone [...] | Author | [facility] | | | and Nenoana | + + + | Organization | [facility] [...] + | Matthew Ramirez | ECON | [address] | | | | | [place] | | | | | [address] | | + + + + + Care Team Providers + +------+ + | Care Stripper And Opaquer Apprentice Name | Role | Phone | [...] | HOSPITAL [facility] | D, SPOT FACER [address] | | | | [address] | [address] [place], [place] | | | | | [place], [place] | [address] | | | | | [address] | | | | | | [phone] | | | +--------+ + + + + Anesthesia Record + + + + + | Procedure Name | Responsible | Anesthesia Start | Anesthesia Stop Time | | | Anesthesiologist | Time | | + + + + + | Correction Josué | Luz Farias, | 03/06/17 1119 | 10/26/17 1228 | | Toes 2nd , 3rd, and | SPOT FACER | | | | 4th Toes (Right [...] | 2 | | [facility]. | | | 7 [...] | Jacklyn Dominguez | | IV | lgni-aev-kznjik catheter system; | | VIRI Barillas | [...] | | | | | CONTINUOUS, Starting [facility] 03/06/17 | | AM PDT | [...]
--- OUTSIDE RECORDS SUMMARY | ~2019-05-06 | XMS | Encounter Summary ---
Demographics + + + | Address | [address] | | | [place] [address] | + + + | Home Phone [...] | Author | [facility] | | | and Neno[place] | + + + | Organization | [facility] [...] + | Matthew Ramirez | ECON | [address] | | | | | [place] | | | | | [address] | | + + + + + Care Team Providers + +------+ + | Care Gate Person Name | Role | Phone | [...] | | | | [K31.9] | | [address] Phone: | | | | | Procedures | | [phone] | | | | | [place] | | Fax: | | | | | ESOPHAGOGAST | | [phone] | | | | | RODUODENOSCO | [...] + + | 01/13/ | Hospital | [facility] | Sukumar Stevenson MD | 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 | Encounter | [facility] | [address] [place] | of overlapping sites | | | | INTRA OP [address] | [address] | of stomach (HCC) | | | | [address] [place] | [address] | | | | | [address] | | | | | | [phone] | | | +--------+ + + + [...] | | | LABORATORY | | Acct: [id number] Location: | [facility] | | [facility]; [facility] MEDICAL PROCEDURE UNIT POOL; [facility] | | | MEDICAL PROCEDURE UNIT POOL | | | Case #: [id number] Ordering: | | | SUKUMAR STEVENSON MD Client: [facility] Sacred | | | [facility] Copy To: | | | Printed: 01/20/2019 09:40 PDT | | | SURGICAL PATHOLOGY FINAL REPORTCollected: | | | Received: | | | Responsible Pathologist:01/13/2019 12:45 PDT | | | 01/13/2019 13:25 PDT [facility] | | | DIAGNOSIS:A. Gastric [...] | | Mild inactive chronic gastritis.[facility]/SK 01/14/19 01:36 pmVerified | | | by: ANNABELLE FULLER MDVerify Date: 01/20/2019 09:40 [facility] | | | [facility] [address] | | | SURGICAL PATHOLOGY FINAL REPORTCollected: [...] controls stain appropriately.As a part of our automotive quality engineer | | | policy, this [...] developed and their performance characteristics determined by [facility]. This test is used for clinical | | | purposes. It should not be regarded as investigational or for | | | research. [facility] is certified under the Clinical | | | Laboratory Improvement Amendments of 1988 (CLIA) as qualified to | | | perform high complexity clinical laboratory testing. | | + + + + + + + + | Performing | Address | City/State/Zipcode | Phone Number | | Organization | | | | + + + + + | [facility] | [address] | [place] [address] | | | [facility] | | | | | LABORATORY EZE | | | | + + + + + EUS Upper (01/13/2019 11:39 AM PDT) + + | Specimen | + + | | + + + + + | Narrative | Performed At | + + + | [facility] | [address] | | [facility] | [place]OVATION | | CenterGI | | | Patient Name: Ashly Ramirez Procedure | | | Date: 01/13/2019 11:39 AMMRN: [id number] | | | of : 1940 | [...] AMNumber | | | of Addenda: 0 [facility] - | | | Endoscopy Services | | | | | |SUKUMAR STEVENSON MD | | |01/13/2019 1:07:25 PM | | |This report has been signed electronically. | | | | | |Note Initiated On: 01/13/2019 11:39 AM | | |Number of Addenda: 0 | | | | | | [facility] Endoscopy Services | | + [...] | TRACEMASTER | | Duration:172 msP Horizontal [place]:28 degP Front [place]:60 degQ Onset:512 | | | msQRSD Interval:136 msQT Interval:448 msQTcB:477 msQTcF:467 msQRS | | | Horizontal [place]:150 degQRS [place]:-35 degI-40 Horizontal [place]:34 degI-40 | | | Front [place]:74 degT-40 Horizontal [place]:151 degT-40 Front [place]:-77 degT | | | Horizontal [place]:8 degT Wave [place]:51 degS-T Horizontal [place]:21 degS-T | | | Front [place]:83 degSeverity:- ABNORMAL ECG -INTERP:SINUS | | | RHYTHMINTERP:VENTRICULAR PREMATURE COMPLEXINTERP:RBBB AND | | | LAFBINTERP:LEFT VENTRICULAR HYPERTROPHYElectronically signed by: | | | ANDREAS MAXWELL 01-18-2019 07:24:33 | | |QTcF:467 ms | | |QRS Horizontal [place]:150 deg | | |QRS [place]:-35 deg | | |I-40 Horizontal [place]:34 deg | | |I-40 Front [place]:74 deg | | |T-40 Horizontal [place]:151 deg | | |T-40 Front [place]:-77 deg | | |T Horizontal [place]:8 deg | | |T Wave [place]:51 deg | | |S-T Horizontal [place]:21 deg | | |S-T Front [place]:83 deg | | |Severity:- ABNORMAL ECG - [...] + + + + + | [facility]ACEMAST[facility] | [address] | [place] [address] | [phone] | + + + + + POC Glucose (01/13/2019 10:06 AM PDT) + + + + + + | Component | Value | Ref Range | Performed | Pathologist | | | | | At | Signature | + + + + + + | Glucose, | 111 (H)Comment: | 65 - 99 mg/dL | [facility] | | | POC | Performed by [facility] [address] | | [address] | | | | [address] [place], [place] | | HEART | | | | [address] | | MEDICAL | | | | [...] + + | [facility] | [address] | [place] [address] | | | [facility] | | | | | LABORATORY [...] scheduled: AC, NPO, Daytime | | | [id number] Use NIGHT DOSE for | | | doses scheduled: HS, 3AM, | | | Nighttime 5895-0240 If the BG is | | | [...]
--- OUTSIDE RECORDS SUMMARY | ~2019-05-06 | XMS | Encounter Summary ---
Demographics + + + | Address | [address] | | | [place] [address] | + + + | Home Phone [...] [facility] | | | and [place]eno[place] | + + + | Organization | [facility] | | | [...] + | Matthew Ramirez | CHRIS | [address] | | | | | [place] | | | | | [address] | | + + + + + Care Team Providers + +------+ + | Care Tobacco Drying Machine Operator Name | Role | Phone | + +------+ + PCP | Unavailable | + +------+ + Encounter Details +--------+ + + + + | Date | Type | Department | Care Team | Description | +--------+ + + + + | 01/26/ | Hospital | [facility] | | | | 2008 | Encounter | MED CTR XRAY [address] | | | | | | [address] | | | | | | [place] [address] | | | | | | [phone] | | | +--------+ + + + [...]
--- OUTSIDE RECORDS SUMMARY | ~2019-05-06 | XMS | Encounter Summary ---
Demographics + + + | Address | [address] | | | [place] [address] | + + + | Home Phone [...] + | Matthew Ramirez | CHRIS | [address] | | | | | [place] | | | | | [address] | | + + + + + | Nella Haque | ECON | Unknown | | + + + + + Care Team Providers + +------+ + | Care Compound Finisher Name | Role | Phone | [...] | | Ron Villalobos Mail Code: | [place], [place] | | | | | [facility] | [address] | | | | | and [place], | [phone] | | | | | [address] | | | | | | [place], [place] | | | | | | [address] | | | | | | [phone] | | | +--------+ + + + [...]
--- OUTSIDE RECORDS SUMMARY | ~2019-05-06 | XMS | Encounter Summary ---
Demographics + + + | Address | [address] | | | [place] [address] | + + + | Home Phone [...] Author | [facility] | | | and Nenoana | + + + | Organization | [facility] | | [...] + | Matthew Ramirez | ECON | [address] | | | | | [place] | | | | | [address] | | + + + + + Care Team Providers + +------+ + | Care Skiver Sock Linings Name | Role | Phone | + [...] | | [address] | [place] [address] | | | | | [address] | | | | | | [phone] | | | +--------+ + + + [...]
--- OUTSIDE RECORDS SUMMARY | ~2019-05-06 | XMS | Encounter Summary ---
Demographics + + + | Address | [address] | | | [place] [address] | + + + | Home Phone [...] + | Matthew Ramirez | CHRIS | [address] | | | | | [place] | | | | | [address] | | + + + + + | Nella Haque | ECON | Unknown | | + + + + + Care Team Providers + +------+ + | Care Sales Representative Business Courses Name | Role | Phone | + [...] of bladder | | 2010 | | [facility] | MD Gillian [address] | (surgery 10/26/10, | | | | [address] | [address] | urogyn) | | | | [address] | [place], [place] | | | | | [id number] | [address] | | | | | [facility], | [phone] | | | | | [place] [address] | | | | | | [phone] | | | +--------+ + + + [...] [address] | [place] [address] | | | [place] | [address] | | | + + + + + documented in this encounter Visit Diagnoses + + | Diagnosis | + + | UTI (urinary tract infection) - Primary Urinary tract infection, site not specified | + + documented in this encounter"
--- OUTSIDE RECORDS SUMMARY | ~2019-05-06 | XMS | Clinical Summary ---
Demographics + + + | Address | [address] | | | [place] [address] | + + + | Home Phone [...] + | Matthew Ramirez | ECON | [address] | | | | | [place] | | | | | [address] | | + + + + + | Nella Haque | ECON | Unknown | | + + + + + Care Team Providers + +------+ + | Care Supervisor Wire Rope Fabrication Name | Role | Phone | + +------+ + | Long Copeland MD | PCP | | + +------+ + Source Comments MEÑO is fully live on both [facility] Ambulatory and [employer] InPatient.[facility] Allergies + + + + [...] | | | | e | | Warren | once daily. | [...] + + + + | 03/04/ | Junior Software Engineer | Surgical Oncology | Cristel Galicia [...] | | | | | | | [address] | | + +--------+ +--------+ + +--------+ | [employer]A MEDICARE | MODA | xxxxxxxxx | 05/12/19 | [phone] | [address] | [address] | | SUPPLEMENT | MEDICA | | 19-Pre | 4 | [address] | | | | RE | | sent | | [place], | | | | SUPPLE | | | | [place] [address] | | | | MENT | | [...] Person | Self | [birth year] | | [address] | | | al/Rene | | 1941 | [phone] | [place] | | | amrik | | | 9 (Home) | [address] | + +--------+ +--------+ + + Advance [...]
--- OUTSIDE RECORDS SUMMARY | ~2019-05-06 | XMS | Encounter Summary ---
Demographics + + + | Address | [address] | | | [place] [address] | + + + | Home Phone [...] Author | [facility] | | | and Nenoana | + + + | Organization | [facility] | | | [...] + | Matthew Ramirez | ECON | [address] | | | | | [place] | | | | | [address] | | + + + + + Care Team Providers + +------+ + | Care Coil Former Name | Role | Phone | + [...] | | | unspecified | | [place] [address] | | | | | type | | Phone: | | | | | Chronic | | [phone] | | | | | abdominal | | Fax: | | | | | pain | | [phone] | | | | | Benzodiazepi | [...] | | | | | | [place] | | | | | | | ESOPHAGOGAST | | | | | | | RODUODENOSCO | | | | | | | PY TRANSORAL | | | | | | | DIAGNOSTIC | | | | | | | GA EGD | | | | | | | TRANSORAL | | | | | | | BIOPSY | | | | | | | SINGLE/MULTI | | | | | | | PLE GA | | | | | | | COLONOSCOPY | | | | | | | FLX DX | | | | | | | W/COLLJ SPEC | | | | | | | WHEN PFRMD | | | | | | | GA | | | | | | | COLONOSCOPY | | | | | | | W/BIOPSY | | | | | | | SINGLE/MULTI | | | | | | | PLE GA | | | | | | | COLSC FLX | | | | | | | W/RMVL OF | | | | | | | TUMOR POLYP | | | | | | | LESION SNARE | | | | | | | TQ GA | | | | | | | [...] + | 12/17/ | [facility] | [facility] | Matthew Shukla MD | EGD | | 2019 | | MED CTR MP INTRA OP | [address] | | | | | [address] | [place] | | | | | [place] | [address] | | | | | [address] | [phone] | | | | | [phone] | | | +--------+---------+ + + + [...] | | | | | episodic use ([facility]) | | | | | | LUQ [...] 12/17/2018 | [place]OVATION | | 3:06 PMMRN: [id number] #: [id number] of : | | | 1940dmit Type: [...] | | | the anesthesiologist and the ct technician in the pre-procedure | | | [...] PMScope Out: 3:26:19 | | | PM [facility], [address] [facility] | | | [place] [address] | | | - Await pathology results. [...] |Scope Out: 3:26:19 PM | | | [facility], [address] [place], [place] | | | [address] | | + + -+ + +---------+ [...] 12/17/2018 | [place]OVATION | | 3:04 PMMRN: [id number] #: [id number] of : | | | 1940dmit Type: [...] [facility], | | | Devon Murdock MD (Anesthesia [...] the anesthesiologist and the | | | ct technician in the pre-procedure area in the [...] | | | evaluated using the BBPS ([place] Bowel Preparation Scale) with | | | [...] PMScope Out: | | | 3:55:04 PM [facility], [address] [place] [address], | | | [place] [address] | | | - Await pathology results. [...] |Scope Out: 3:55:04 PM | | | [facility], [address] [facility], [place], [place] | | | [address] | | + + -+ + +---------+ [...] | COMMENT: A -- As part of [facility]' Quality Improvement | | | Program, this portion of the case has been reviewed by another member | | | of our pathology staff with subspecialty training in gastrointestinal | | | pathology. Results called to Dr. Shukla office [facility]) 12/24/18 | | | 10:15 AM. [...] | and its performance characteristics determined by [facility]. | | | It has not been cleared or approved by the U.S. Food and Drug | | | Administration. The FDA has determined that such clearance or | | | approval is not necessary. This test is used for clinical purposes. | | | It should not be regarded as investigational or for research. | | | [facility] is certified under the Clinical Laboratory | | | Improvement Amendments of 1988 (CLIA) as qualified to perform high | | | complexity clinical laboratory testing. PERFORMING LABORATORY: | | | The technical component was performed by [facility], [address] | | | [place] [address] (Dance Historian: Marilyn Dowell MD; | | | CLIA# [id number]). Professional interpretation was performed by | | | [facility], [facility], [address] [place] [address]. | | | [address] [place] [address] (Dance Historian: Guevara Ernandez | | | ; CLIA# [id number]). ADDITIONAL NOTES: Immunohistochemical | | | and/or in situ hybridization studies were performed on this case with | | | the appropriate positive controls that react as expected. This test | | | was developed and its performance characteristics determined by | | | [facility]. It has not been cleared or approved by the U.S. | | | Food and Drug Administration. The FDA has determined that such | | | clearance or approval is not necessary. This test is used for | | | clinical purposes. It should not be regarded as investigational or | | | for research. [facility] is certified under the Clinical | | | Laboratory Improvement Amendments of 1988 (CLIA) as qualified to | | | perform high complexity clinical laboratory testing. PERFORMING | | | LABORATORY: The technical component was performed by [facility] | | | [facility], [address] [place] [address] (Dance Historian: | | | Marilyn Dowell MD; CLIA# [id number]). Professional interpretation was | | | performed by [facility], [address] [place] | | | [place] [address] (Dance Historian: Darien Kapoor D.O.; CLIA#: | | | [id number]). REASON FOR ADDENDUM: To add results of [...] the FDA-approved HER-2 Pathway is performed at [facility] | | | [place], on accession #[id number] from at the [...] the Vysis PathVysion kit was performed at [facility] | | | [place]. The assay has not been validated [...] interpretation was | | | performed by [facility], [address] [facility] | | | [place] [address] (Dance Historian: Darien Kapoor D.O.; CLIA#: | | | [id number]). Diagnostician: Guevara Ernandez MD Pathologist | | [...] [place] PATHOLOGY | | | | | [employer] | | | | + +---------+ + [...] ONCE PRN, | | | Wheezing, Starting [facility] 12/17/18 at | | | 1346, For 1 dose, Pre-op | | + +---+ | | | + +---+ | albuterol-ipratropium 2.5-0.5 | | | mg/3 mL nebulizer solution 3 mL | | | 3 mL, Nebulization, ONCE PRN, | | | Wheezing, Shortness of Breath, | | | Starting [facility] 12/17/18 at 1615, For | | [...]
--- OUTSIDE RECORDS SUMMARY | ~2019-05-06 | XMS | Encounter Summary ---
Demographics + + + | Address | [address] | | | [place] [address] | + + + | Home Phone [...] + | Matthew Ramirez | CHRIS | [address] | | | | | [place] | | | | | [address] | | + + + + + | Nella Haque | ECON | Unknown | | + + + + + Care Team Providers + +------+ + | Care Apiculturist Name | Role | Phone | + +------+ + | Long Copeland MD | PCP | | + +------+ + Encounter Details +--------+ + + + + | Date | Type | Department | Care Team | Description | +--------+ + + + + | 10/10/ | Outside | UNKNOWN DEPARTMENT | Other, Faculty | | | 2019 | Records | [address] [facility] | [phone] | | | | | [address] | | | | | | [place], [place] | | | | | | [address] | | | +--------+ + + + [...]
--- OUTSIDE RECORDS SUMMARY | ~2019-05-06 | XMS | Encounter Summary ---
Demographics + + + | Address | [address] | | | [place] [address] | + + + | Home Phone | | + + + | Preferred Language | Unknown | + + + | Marital Status | | + + + | Rastafari Affiliation | Unknown | + + + | Race | Unknown | + + + | Ethnic Group | Unknown | + + + Author + + + | Author | and [facility] | | | and [place] | + + + | Organization | [facility] | | [...] + | Matthew Ramirez | ECON | [address] | | | | | [place] | | | | | [address] | | + + + + + Care Team Providers + +------+ + | Care Repair Servicer Name | Role | Phone | + [...] + + | 12/17/ | Telephone | [facility] | Matthew Shukla MD | Procedure | | 2019 | | GASTROENTEROLOGY | [address] [facility] | | | | | [address] [facility] | [place], [place] | | | | | [address] [place], [place] | [address] | | | | | [address] | [phone] | | | | | [phone] | | | +--------+ + + + [...]
--- OUTSIDE RECORDS SUMMARY | ~2019-05-06 | XMS | Encounter Summary ---
Demographics + + + | Address | [address] | | | [place] [address] | + + + | Home Phone [...] + | Author | [facility] | | | and Nenoana | + + + | Organization | [facility] | | | [...] + | Matthew Ramirez | CHRIS | [address] | | | | | [place] | | | | | [address] | | + + + + + Care Team Providers + +------+ + | Care Tanner Rotary Drum Continuous Process Name | Role | Phone | + +------+ + PCP | Unavailable | + +------+ + Encounter Details +--------+ + + + + | Date | Type | Department | Care Team | Description | +--------+ + + + + | 03/20/ | Hospital | [facility] | | | | 1994 | Encounter | MED CTR XRAY [address] | | | | | | [address] | | | | | | [place] [address] | | | | | | [phone] | | | +--------+ + + + [...]
--- OUTSIDE RECORDS SUMMARY | ~2019-05-06 | XMS | Encounter Summary ---
Demographics + + + | Address | [address] | | | [place] [address] | + + + | Home Phone [...] Author | [facility] | | | and [place]eno[place] | + + + | Organization | [facility] | [...] + | Matthew Ramirez | ECON | [address] | | | | | [place] | | | | | [address] | | + + + + + Care Team Providers + +------+ + | Care Wash House Supervisor Name | Role | Phone [...] / | Diagnoses | Gayla | [facility] | | | Services | General | 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 | General | | | Required | Surgery | adenocarcino | [address] | Surgery [address] | | | | | bhargav ([facility]) | [address] | [address] | | | | | | [place], [place] | [place], | | | | | | [address] | [place] [address] | | | | | | Phone: | Phone: | | | | | | [phone] | [phone] | | | | | | Fax: | Fax: | | | | | | [phone] | [phone] | +--------+ + + + + + Encounter Details +--------+---------+ + + + | Date | Type | Department | Care Team | Description | +--------+---------+ + + + | 01/07/ | Office | [facility] | Ana Mendez MD | Gastric | | 2019 | Visit | SURGERY [address] | [address] [facility] | adenocarcinoma (HCC) | | | | [place], [place] | [place] [address] | (Primary Dx) | | | | [address] | [phone] | | | | | [phone] | | | +--------+---------+ + + + [...] adenoma. COMMENT: A -- As part of [facility] Quality Improvement Program, this portion of the case h as been reviewed by another member of our pathology staff with subspecialty training in lisa rointestinal pathology. Results called to Dr. Shukla office ([place]) 12/24/18 10:15 AM. Discussed results on specimen [...] Impalnt Revision; Surgeon: Jose Randall DPM; Location: [facility] BLADDER REPAIR 1971 BLADDER SUSPENSION 2007 CARPAL TUNNEL RELEASE Bilateral CATARACT REMOVAL Right 03/2016 CHOLECYSTECTOMY, LAPAROSCOPIC 1997 COLECTOMY 2004 recurrent diverticulitis COLONOSCOPY 01/2018 One diminutive polyp COLONOSCOPY N/A 12/17/2018 Procedure: COLONOSCOPY; Surgeon: Matthew Shukla MD; Location: [facility] MEDICAL PROCEDURE UNIT FINGER SURGERY Left 2007 Thumb surgery for osteoarthritis FINGER SURGERY Left 11/2008 FINGER SURGERY Right 04/2012 Thumb surgery HAMMER TOE SURGERY Right 03/06/2017 Procedure: Correction Hammer Toes 2nd , 3rd, and 4th Toes; Surgeon: ANNIE Cuevas; Location: [facility] SURGERY HAMMER TOE SURGERY Left 07/04/2017 Procedure: CORRECTION HAMMERTOES 2, 3, 4; Surgeon: Jose Randall DPM; Location: [facility] DIONICIO WHEAT[facility]CT SURGERY HAMMER TOE SURGERY Left 2018 x3 KNEE ARTHROSCOPY Right 2001 PUBOVAGINAL SLING 10/16/2010 TVT Retropubic sling at [facility] SIGMOID COLECTOMY 12/20/2002 Franck Davis MD - [facility] AND O 1996 TONSILLECTOMY AND ADENOIDECTOMY 1948 TOTAL KNEE ARTHROPLASTY Right 07/11/2011 TUBAL LIGATION 1976 UPPER GASTROINTESTINAL ENDOSCOPY N/A 12/17/2018 Procedure: EGD; Surgeon: Matthew Shukla MD; Location: [facility] MEDICAL PROCEDURE UNIT URETHROPEXY 07/11/2010 [...] MCG tablet Take 800 mcg by mouth. Mdzpqfbetqa-Votggvsru-Vaq C-Mn (GLUCOSAMINE CHONDR 500 COMPLEX) CAPS 2 [...] has put in an urgent referral to [facility] erologist for a repeat EGD with [...] this chart may have been created with Shurop[employer] voice recognition software. Occasi onal wrong-word or [...]
--- OUTSIDE RECORDS SUMMARY | ~2019-05-06 | XMS | Encounter Summary ---
Demographics + + + | Address | [address] | | | [place] [address] | + + + | Home Phone [...] + | Matthew Ramirez | CHRIS | [address] | | | | | [place] | | | | | [address] | | + + + + + | Nella Mitchellox Beverley ECON | Unknown | | + + + + + Care Team Providers + +------+ + | Care Silk Screen Etcher Name | Role | Phone | + +------+ + | Long Copeland MD | PCP | | + +------+ + Encounter Details +--------+ + + + + | Date | Type | Department | Care Team | Description | +--------+ + + + + | 01/28/ | Ems Educator | Surgical Oncology | Cristel Galicia MD | Gastric | | 2019 | | at [facility] [address] | [address] | adenocarcinoma (HCC) | | | | [address] Mail Code: | [place], [place] | (Primary Dx) | | | | [facility] | [address] | | | | | and Healing, | [phone] | | | | | Building [address] | | | | | | [place], [place] | | | | | | [address] | | | | | | [phone] | | | +--------+ + + + [...] Electronically | | Pathologic | to F [id number]; | | DEPARTMENT | signed by Bonifacio [...] PathologistPathology, | | | | | | [facility] | | | | [...] [facility] | | | Received | Institution: [place] | | DEPARTMENT | | | | [facility] | | OF | | | | [place], [place] | | PATHOLOGY | | | | [id number] Accession | | | | | | Number: | | | | | | [id number] | | | | | | Collection [...] [facility] | [address] | [place] [address] | | | PATHOLOGY | [address] | | | + + + + + documented in this encounter Visit Diagnoses + + | Diagnosis | + + | Gastric adenocarcinoma (HCC) - Primary Malignant neoplasm of stomach, unspecified | | site | + + documented in this encounter"
--- OUTSIDE RECORDS SUMMARY | ~2019-05-06 | XMS | Encounter Summary ---
Demographics + + + | Address | [address] | | | [place] [address] | + + + | Home Phone [...] + | Author | [facility] | | | and Nenoana | + + + | Organization | [facility] | | [...] + | Matthew Ramirez | ECON | [address] | | | | | [place] | | | | | [address] | | + + + + + Care Team Providers + +------+ + | Care Display Fabrication Supervisor Name | Role | Phone | [...] | [address] | [place] [address] | | | | | [address] | | | | | | [phone] | | | +--------+ + + + [...]
--- OUTSIDE RECORDS SUMMARY | ~2019-05-06 | XMS | Encounter Summary ---
Demographics + + + | Address | [address] | | | [place] [address] | + + + | Home Phone [...] | Author | [facility] | | | and Nenoana | + + + | Organization | [facility] | [...] + | Matthew Ramirez | ECON | [address] | | | | | [place] | | | | | [address] | | + + + + + Care Team Providers + +------+ + | Care Coding Team Lead Name | Role | Phone | [...] + + | 01/20/ | Telephone | [facility] | Matthew Shukla MD | Results, Pathology | | 2019 | | GASTROENTEROLOGY | [address] [facility] | | | | | [address] [facility] | [place], [place] | | | | | [address] [place], [place] | [address] | | | | | [address] | [phone] | | | | | [phone] | | | +--------+ + + + [...]
--- OUTSIDE RECORDS SUMMARY | ~2019-05-06 | XMS | Encounter Summary ---
Demographics + + + | Address | [address] | | | [place] [address] | + + + | Home Phone [...] Author | [facility] | | | and Nenoana | + + + | Organization | [facility] [...] + | Matthew Ramirez | CHRIS | [address] | | | | | [place] | | | | | [address] | | + + + + + Care Team Providers + +------+ + | Care Director Of Convention Services Name | Role | Phone | + +------+ + PCP | Unavailable | + +------+ + Encounter Details +--------+ + + + + | Date | Type | Department | Care Team | Description | +--------+ + + + + | 02/02/ | [facility] | | [facility] | Encounter | MED CTR MP INTRA OP | | | | | | [address] | | | | | | [place] | | | | | | [address] | | | | | | [phone] | | | +--------+ + + + [...]
--- OUTSIDE RECORDS SUMMARY | ~2019-05-06 | XMS | Encounter Summary ---
Demographics + + + | Address | [address] | | | [place] [address] | + + + | Home Phone [...] | Author | [facility] | | | and Nenoana | + + + | Organization | [facility] | | [...] + | Matthew Ramirez | CHRIS | [address] | | | | | [place] | | | | | [address] | | + + + + + Care Team Providers + +------+ + | Care Geography Faculty Member Name | Role | Phone | + +------+ + PCP | Unavailable | + +------+ + Encounter Details +--------+ + + + + | Date | Type | Department | Care Team | Description | +--------+ + + + + | 11/27/ | Hospital | [facility] | | | | 1999 | Encounter | MED CTR GENERIC OP | | | | | | CONV DEPT [address] | | | | | | [place], | | | | | | [place] [address] | | | | | | [phone] | | | +--------+ + + + [...]
--- OUTSIDE RECORDS SUMMARY | ~2019-05-06 | XMS | Encounter Summary ---
Demographics + + + | Address | [address] | | | [place] [address] | + + + | Home Phone [...] + | Author | [facility] | | | and [place]eno[place] | + + + | Organization | [facility] | [...] + | Matthew Ramirez | CHRIS | [address] | | | | | [place] | | | | | [address] | | + + + + + Care Team Providers + +------+ + | Care Manager Shift Name | Role | Phone | + +------+ + PCP | Unavailable | + +------+ + Encounter Details +--------+ + + + + | Date | Type | Department | Care Team | Description | +--------+ + + + + | 01/26/ | Hospital | [facility] | | | | 2008 | Encounter | MED CTR XRAY [address] | | | | | | [address] | | | | | | [place] [address] | | | | | | [phone] | | | +--------+ + + + [...]
--- OUTSIDE RECORDS SUMMARY | ~2019-05-06 | XMS | Encounter Summary ---
Demographics + + + | Address | [address] | | | [place] [address] | + + + | Home Phone [...] | [facility] | | | and Nenoana | + + + | Organization | [facility] | | | [...] + | Matthew Ramirez | ECON | [address] | | | | | [place] | | | | | [address] | | + + + + + Care Team Providers + +------+ + | Care Advanced Seal Delivery System Name | Role | Phone | + [...] | | | [place], [place] | [place] [address] | | | | | [address] | [phone] | | | | | [phone] | | | +--------+---------+ + + + [...]
--- OUTSIDE RECORDS SUMMARY | ~2019-05-06 | XMS | Encounter Summary ---
Demographics + + + | Address | [address] | | | [place] [address] | + + + | Home Phone | | + + + | Preferred Language | Unknown | + + + | Marital Status | | + + + | Methodist Affiliation | NRP | + + + [...] + | Matthew Ramirez | ECON | [address] | | | | | [place] | | | | | [address] | | + + + + + | Nella Haque | ECON | Unknown | | + + + + + Care Team Providers + +------+ + | Care Automobile Glass Technician Name | Role | Phone | [...]
--- OUTSIDE RECORDS SUMMARY | ~2019-05-06 | XMS | Encounter Summary ---
Demographics + + + | Address | [address] | | | [place] [address] | + + + | Home Phone [...] + | Matthew Ramirez | CHRIS | [address] | | | | | [place] | | | | | [address] | | + + + + + | Nella Haque | ECON | Unknown | | + + + + + Care Team Providers + +------+ + | Care Director Of Golf Name | Role | Phone | + [...] | | 2010 | | [facility] | MD Gillian [address] | | | | | [address] | [facility] | | | | | [address] | [place], [place] | | | | | /[id number] [facility] | [address] | | | | | [facility], | [phone] | | | | | [place] [address] | | | | | | [phone] | | | +--------+ + + + [...]
--- OUTSIDE RECORDS SUMMARY | ~2019-05-06 | XMS | Encounter Summary ---
Demographics + + + | Address | [address] | | | [place] [address] | + + + | Home Phone [...] | Author | [facility] | | | and [place]eno[place] | + + + | Organization | [facility] | | | and [...] + | Matthew Ramirez | ECON | [address] | | | | | [place] | | | | | [address] | | + + + + + Care Team Providers + +------+ + | Care Sports Information Director Name | Role | Phone | [...] | | Procedures | [address] | [place] [address] | | | | | office visit | [place] | Phone: | | | | | | [place] [address] | [phone] | | | | | | Phone: | Fax: | | | | | | [phone] | [phone] | | | | | | Fax: | | | | | | | [phone] | | +--------+--------+ + + + + Encounter Details +--------+---------+ + + + | Date | Type | Department | Care Team | Description | +--------+---------+ + + + | 12/14/ | Office | [facility] | Matthew Shukla MD | Chronic abdominal | | 2019 | Visit | GASTROENTEROLOGY | [address] | pain (Primary Dx); | | | | [address] [facility] | [place], [place] | Diarrhea, | | | | [address] [place], [place] | [address] | unspecified type; | | | | [address] | [phone] | Rectal bleeding; | | | | [phone] | | Benzodiazepine | | | | [...] 0700 on 12/17, finishing by 0830; 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 [...]
--- OUTSIDE RECORDS SUMMARY | ~2019-05-06 | XMS | Encounter Summary ---
Demographics + + + | Address | [address] | | | [place] [address] | + + + | Home Phone [...] Author | [facility] | | | and [place]enoana | + + + | Organization | [facility] [...] + | Matthew Ramirez | ECON | [address] | | | | | [place] | | | | | [address] | | + + + + + Care Team Providers + +------+ + | Care Delivery Rep Name | Role | Phone | [...] | [address] | [place] [address] | | | | | [address] | | | | | | [phone] | | | +--------+ + + + [...]
--- OUTSIDE RECORDS SUMMARY | ~2019-05-06 | XMS | Encounter Summary ---
Demographics + + + | Address | [address] | | | [place] [address] | + + + | Home Phone [...] + | Author | [facility] | | | and Nenoana | + + + | Organization | [facility] | | [...] + | Matthew Ramirez | CHRIS | [address] | | | | | [place] | | | | | [address] | | + + + + + Care Team Providers + +------+ + | Care Control Inspector Name | Role | Phone | + +------+ + PCP | Unavailable | + +------+ + Encounter Details +--------+ + + + + | Date | Type | Department | Care Team | Description | +--------+ + + + + | 07/24/ | Hospital | [facility] | | | | 1999 | Encounter | MED CTR XRAY [address] | | | | | | [address] | | | | | | [place] [address] | | | | | | [phone] | | | +--------+ + + + [...]
--- OUTSIDE RECORDS SUMMARY | ~2019-05-06 | XMS | Encounter Summary ---
Demographics + + + | Address | [address] | | | [place] [address] | [...] Author | [facility] | | | and [place]eno[place] | + + + | Organization | [facility] | | [...] + | Matthew Ramirez | ECON | [address] | | | | | [place] | | | | | [address] | | + + + + + Care Team Providers + +------+ + | Care Conductor Symphonic Orchestra Name | Role | Phone | + +------+ + | Ashly Rojo PA-C | PCP | | + +------+ + Encounter Details +--------+ + + + + | Date | Type | Department | Care Team | Description | +--------+ + + + + | 01/05/ | Abstract | [facility] | Provider, | | | 2019 | | SURGERY [address] | [address] | | | | | [place], [place] | [address] | | | | | [address] | [place] [address] | | | | | [phone] | | | +--------+ + + + [...]
--- OUTSIDE RECORDS SUMMARY | ~2019-05-06 | XMS | Encounter Summary ---
Demographics + + + | Address | [address] | | | [place] [address] | + + + | Home Phone [...] | Author | [facility] | | | and [place] | + + + | Organization | [facility] [...] + | Matthew Ramirez | ECON | [address] | | | | | [place] | | | | | [address] | | + + + + + Care Team Providers + +------+ + | Care Virtual Assistant For Advertisers Name | Role | Phone | + [...] | | ma (HCC) | [address] | [place] | | | | | | [place] | [place], | | | | | | [address] | [place] [address] | | | | | | Phone: | Phone: | | | | | | [phone] | [phone] | | | | | | Fax: | Fax: | | | | | | [phone] | [phone] | +--------+ + + + + + [...] [address] | | | | | bhargav ([facility]) | [address] | [address] | | | | | | [place], [place] | [place], | | | | | | [address] | [place] [address] | | | | | | Phone: | Phone: | | | | | | [phone] | [phone] | | | | | | Fax: | Fax: | | | | | | [phone] | [phone] | +--------+ + + + + + Encounter Details +--------+ + + + + | Date | Type | Department | Care Team | Description | +--------+ + + + + | 01/05/ | Hospital | [facility] | Arpan, | Gastric | | 2019 | Encounter | MED CTR MEDICAL | Luis Richards MD [address] | adenocarcinoma | | | | [facility] [address] | [address] [place] | (HCC); Malignant | | | | [address] [place] | [place] [address] | neoplasm of | | | | [place] [address] | [phone] | overlapping sites of | | | | [phone] | | stomach (HCC) | +--------+ + [...] adenocarcinoma (HCC) | [facility]05/2019 | [facility] | | | | until 01/05/2019 | [...]
--- OUTSIDE RECORDS SUMMARY | ~2019-05-06 | XMS | Encounter Summary ---
Demographics + + + | Address | [address] | | | [place] [address] | + + + | Home Phone [...] | [facility] | | | and [place]eno[place] | + + + | Organization | [facility] [...] + | Matthew Ramirez | ECON | [address] | | | | | [place] | | | | | [address] | | + + + + + Care Team Providers + +------+ + | Care Street Light Inspector Name | Role | Phone | + +------+ + | Ashly Rojo PA-C | PCP | | + +------+ + Encounter Details +--------+ + + + + | Date | Type | Department | Care Team | Description | +--------+ + + + + | 12/31/ | Imaging | [facility] | Provider, | | | 2019 | Exam | MED CTR EXTERNAL | [address] | | | | | IMAGING | [address] | | | | | [phone] | [address] [place] [address] | | +--------+ + + + + [...]
--- OUTSIDE RECORDS SUMMARY | ~2019-05-06 | XMS | Encounter Summary ---
Demographics + + + | Address | [address] | | | [place] [address] | + + + | Home Phone [...] + | Matthew Ramirez | CHRIS | [address] | | | | | [place] | | | | | [address] | | + + + + + | Nella Haque | ECON | Unknown | | + + + + + Care Team Providers + +------+ + | Care Pattern Cleaner Name | Role | Phone | [...] | | 2019 | | [facility] | [address] | (tamoxifen) | | | | for Health & Healing | [facility], | | | | | [address] | [place] [address] | | | | | Mailcode: [facility] | | | | | | for Health and | | | | | | Healing, [facility] [address] | | | | | | [place], [place] | | | | | | [address] | | | | | | [phone] | | | +--------+ + + + [...]
--- OUTSIDE RECORDS SUMMARY | ~2019-05-06 | XMS | Encounter Summary ---
Demographics + + + | Address | [address] | | | [place] [address] | + + + | Home Phone [...] Author | [facility] | | | and Neno[place] | + + + | Organization | [facility] | | | [...] + | Matthew Ramirez | ECON | [address] | | | | | [place] | | | | | [address] | | + + + + + Care Team Providers + +------+ + | Care Marina Manager Name | Role | Phone | [...] + | 12/17/ | Telephone | [facility] | Matthew Shukla MD | Procedure | | 2019 | | GASTROENTEROLOGY | [address] [facility] | | | | | [address] [facility] | [place], [place] | | | | | [address] [place], [place] | [address] | | | | | [address] | [phone] | | | | | [phone] | | | +--------+ + + + [...]
--- OUTSIDE RECORDS SUMMARY | ~2019-05-06 | XMS | Encounter Summary ---
Demographics + + + | Address | [address] | | | [place] [address] | + + + | Home Phone [...] + | Matthew Ramirez | CHRIS | [address] | | | | | [place] | | | | | [address] | | + + + + + | Nella Haque | ECON | Unknown | | + + + + + Care Team Providers + +------+ + | Care Advertisement Distributor Name | Role | Phone | + [...] | | sphincter | MD Gillian | [address] | | | | | deficiency | [address] | [id number] | | | | | (ISD) | [facility] | [facility] | | | | | Urinary | Rd | [place], | | | | | stress | [place], [place] | [place] [address] | | | | | incontinence | [address] | Phone: | | | | | Procedures | Phone: | [phone] | | | | | REQUEST TO | [phone] | Fax: | | | | | SURGERY | Fax: | [phone] | | | | | MAINTENANCE SERVICE DISPATCHER | [phone] | | | | | | [place] [...] | 2010 | Visit | [facility] | MD Gillian [address] | (Primary Dx) | | | | [address] | [address] | | | | | [address] | [place], [place] | | | | | [id number] [facility] | [address] | | | | | [facility], | [phone] | | | | | [place] [address] | | | | | | [phone] | | | +--------+---------+ + + + [...]
--- OUTSIDE RECORDS SUMMARY | ~2019-05-06 | XMS | Encounter Summary ---
Demographics + + + | Address | [address] | | | [place] [address] | + + + | Home Phone [...] + | Author | [facility] | | | and [place]eno[place] | + + + | Organization | [facility] | | | [...] + | Matthew Ramirez | CHRIS | [address] | | | | | [place] | | | | | [address] | | + + + + + Care Team Providers + +------+ + | Care Hedge Trimmer Name | Role | Phone | + +------+ + PCP | Unavailable | + +------+ + Encounter Details +--------+ + + + + | Date | Type | Department | Care Team | Description | +--------+ + + + + | 07/15/ | Hospital | [facility] | | | | 2001 | Encounter | MED CTR GENERIC OP | | | | | | CONV DEPT [address] | | | | | | [place], | | | | | | [place] [address] | | | | | | [phone] | | | +--------+ + + + [...]
--- OUTSIDE RECORDS SUMMARY | ~2019-05-06 | XMS | Encounter Summary ---
Demographics + + + | Address | [address] | | | [place] [address] | + + + | Home Phone [...] + | Matthew Ramirez | CHRIS | [address] | | | | | [place] | | | | | [address] | | + + + + + | Nella Haque | ECON | Unknown | | + + + + + Care Team Providers + +------+ + | Care Re Examiner Name | Role | Phone | [...] | | | | | | | [address] | | | | | | | [id number] | | | | | | | [facility] | | | | | | | [place], | | | | | | | [place] [address] | | | | | | | Phone: | | | | | | | [phone] | | | | | | | Fax: | | | | | | | [phone] | +--------+--------+ + + + + Encounter [...] [address] | | | | | [address] | [place], [place] | | | | | [id number] [facility] | [address] | | | | | [facility], | [phone] | | | | | [place] [address] | | | | | | [phone] | | | +--------+ + + + [...]
--- OUTSIDE RECORDS SUMMARY | ~2019-05-06 | XMS | Encounter Summary ---
Demographics + + + | Address | [address] | | | [place] [address] | + + + | Home Phone [...] + | Matthew Ramirez | CHRIS | [address] | | | | | [place] | | | | | [address] | | + + + + + | Nella Haque | ECON | Unknown | | + + + + + Care Team Providers + +------+ + | Care Sql Consultant Name | Role | Phone | [...] | | sphincter | MD Gillian | [address] | | | | | deficiency | [address] | [id number] | | | | | (ISD) | [facility] | [facility] | | | | | Urinary | Rd | [place], | | | | | stress | [place], [place] | [place] [address] | | | | | incontinence | [address] | Phone: | | | | | Procedures | Phone: | [phone] | | | | | REQUEST TO | [phone] | Fax: | | | | | SURGERY | Fax: | [phone] | | | | | PLAYER PIANO TECHNICIAN | [phone] | | | | | | [place] | [...] evaluation | | 2010 | Visit | [facility] | MD Gillian [address] | (Primary Dx); | | | | [address] | [address] | Urinary incontinence | | | | [address] | [place], [place] | | | | | /[id number] [facility] | [address] | | | | | [facility] | [phone] | | | | | [place] [address] | | | | | | [phone] | | | +--------+---------+ + + + [...] to [facility] Clinic in [facility] Exit the Lobby of the [facility] and turn right to take elevator 2 to the 9th floor [facility] the [facility]. Follow signs directing you to the [place] Aerial Tram. The PMC is located on the 4th floor of the [facility] and [facility] ([facility]) just next to the exit for the tram. To return to the [facility] or to any of the facilities located on [facility], you will need a tram pass. These are available at no charge to patients with scheduled appointme nts and to those people accompanying them. For a tram pass, ask the spa receptionist in the lob by of the [facility] or the person who checks you in [...] 300 mg by mouth three times daily. Ecxvuubrcwy-Dnvcligoo-Oag C-Mn (GLUCOSAMINE CHONDROITIN MAXSTR) 500-400 mg Oral [...] the evening. triamcinolone 55 mcg Nasal Aerosol, Terry Instill 2 Sprays into each nostril once [...] Ramirez Number of Children: 3 Occupational History [employer] Social History Main Topics Smoking status: Never Smoker Smokeless tobacco: Never Used Alcohol Use: Yes 0-3/day- wine Drug Use: No Sexually Active: No partner not able Social History Narrative Lives with partner in [place]- 34yrs. Son in [place]. 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 Now traveling [employer]. Review of Systems: Per HPI. All other systems negative PHYSICAL EXAM: BP 140/90 | Pulse 86 | Ht 1.746 m (5' 8.74") | Wt 104.373 kg (230 lb 1.6 oz) | SpO2 99% | B AR 34.24 kg/(m^2) GENERAL: Healthy Appearing, No acute [...] view image for the detailed interpretation from [facility] results. | CARDIOLOGY | + + + + + + + + | Performing | Address | City/State/Zipcode | Phone Number | | Organization | | | | + + + + + | [facility] | [address] | [place], [place] | | | CARDIOLOGY | [address] | [address] | | + + + + + [...] DEPARTMENT OF | [address] | [place] [address] | | | PATHOLOGY | [address] [...] | + + + + + | [facility] | [address] | [place] [address] | | | PATHOLOGY | [address] | | | + + + + + documented in this encounter Visit Diagnoses + + | Diagnosis | + + | Pre-op evaluation - Primary Preoperative examination, unspecified | + + | Urinary incontinence Unspecified urinary incontinence | + + documented in this encounter
--- OUTSIDE RECORDS SUMMARY | ~2019-05-06 | XMS | Encounter Summary ---
Demographics + + + | Address | [address] | | | [place] [address] | + + + | Home Phone [...] + | Matthew Ramirez | CHRIS | [address] | | | | | [place] | | | | | [address] | | + + + + + | Nella Haque | ECON | Unknown | | + + + + + Care Team Providers + +------+ + | Care Group Cio Name | Role | Phone | + [...] | | | | | | | [address] | | | | | | | [id number] | | | | | | | [facility] | | | | | | | [place], | | | | | | | [place] [address] | | | | | | | Phone: | | | | | | | [phone] | | | | | | | Fax: | | | | | | | [phone] | +--------+--------+ + + + + Encounter [...] [address] | | | | | [address] | [place], [place] | | | | | [id number] | [address] | | | | | [facility], | [phone] | | | | | [place] [address] | | | | | | [phone] | | | +--------+ + + + [...]
--- OUTSIDE RECORDS SUMMARY | ~2019-05-06 | XMS | Encounter Summary ---
Demographics + + + | Address | [address] | | | [place] [address] | + + + | Home Phone [...] + | Author | [facility] | | | and Nenoana | + + + | Organization | [facility] | | | [...] + | Matthew Ramirez | ECON | [address] | | | | | [place] | | | | | [address] | | + + + + + Care Team Providers + +------+ + | Care Quality Assurance Engineer Name | Role | Phone | [...] H/O neoplasm | | | | [place], [place] | | of uncertain | | | | [address] | | behavior of skin; | | | | [phone] | | Primary localized | | | [...] of this encounter Progress Notes Adia Rosario, AUTOMATIC PAINT SPRAYER OPERATOR - 01/01/2019 11:27 AM PDTCT Chest Abdomen Pelvis w Contrast on 08/06/19 19 at [facility] FINDINGS: BONES: No osteoblastic or osteolytic [...]
--- OUTSIDE RECORDS SUMMARY | ~2019-05-06 | XMS | Encounter Summary ---
Demographics + + + | Address | [address] | | | [place] [address] | + + + | Home Phone [...] | Author | [facility] | | | and Nenoana | + + + | Organization | [facility] [...] + | Matthew Ramirez | ECON | [address] | | | | | [place] | | | | | [address] | | + + + + + Care Team Providers + +------+ + | Care Arabic Teacher Name | Role | Phone | [...] | | | | [K31.9] | | [address] Phone: | | | | | Procedures | | [phone] | | | | | [place] | | Fax: | | | | | ESOPHAGOGAST | | [phone] | | | | | RODUODENOSCO | [...] | 01/13/ | Hospital | [facility] | Sukumar Stevenson MD | 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 | Encounter | [facility] MP | [address] [place] | of overlapping sites | | | | INTRA OP [address] | [address] | of stomach (HCC) | | | | [address] [place] | [address] | | | | | [address] | | | | | | [phone] | | | +--------+ + + + [...] | | | LABORATORY | | Acct: [id number] Location: | [facility] | | [facility]; [facility] MEDICAL PROCEDURE UNIT POOL; [facility] | | | MEDICAL PROCEDURE UNIT POOL | | | Case #: [id number] Ordering: | | | SUKUMAR STEVENSON MD Client: [facility] | | | [facility] Copy To: | | | Printed: 01/20/2019 09:40 PDT | | | SURGICAL PATHOLOGY FINAL REPORTCollected: | | | Received: | | | Responsible Pathologist:01/13/2019 12:45 PDT | | | 01/13/2019 13:25 PDT ANNABELLE FULLERFORMERLY [facility] | | | DIAGNOSIS:A. Gastric antrum at [...] fragments. | | | Mild inactive chronic gastritis.[facility] 01/14/19 01:36 pmVerified | | | by: ANNABELLE FULLER MDVerify Date: 01/20/2019 09:40 [facility] | | | [facility] [address] | | | SURGICAL PATHOLOGY FINAL REPORTCollected: [...] stain appropriately.As a part of our quality control operator | | | policy, this case has [...] developed and their performance characteristics determined by [facility]. This test is used for clinical | | | purposes. It should not be regarded as investigational or for | | | research. [facility] is certified under the Clinical | | | Laboratory Improvement Amendments of 1988 (CLIA) as qualified to | | | perform high complexity clinical laboratory testing. | | + + + + + + + + | Performing | Address | City/State/Zipcode | Phone Number | | Organization | | | | + + + + + | [facility] | [address] | [place] [address] | | | [facility] | | | | | LABORATORY EZE | | | | + + + + + EUS Upper (01/13/2019 11:39 AM PDT) + + | Specimen | + + | | + + + + + | Narrative | Performed At | + + + | [place] | [place] | | [facility] | [place] | | CenterGI | | | Patient Name: Ashly Ramirez Procedure | | | Date: 01/13/2019 11:39 AMMRN: [id number] | | | of : 1940 | [...] | | | of Addenda: [address] [facility] - | | | Endoscopy Services | | | | | |SUKUMAR STEVENSON MD | | |01/13/2019 1:07:25 PM | | |This report has been signed electronically. | | | | | |Note Initiated On: 01/13/2019 11:39 AM | | |Number of Addenda: 0 | | | | | | [facility] - Endoscopy Services | | + [...] | TRACEMASTER | | Duration:172 msP Horizontal [place]:28 degP [place]:60 degQ Onset:512 | | | msQRSD Interval:136 msQT Interval:448 msQTcB:477 msQTcF:467 msQRS | | | Horizontal [place]:150 degQRS [place]:-35 degI-40 Horizontal [place]:34 degI-40 | | | Front [place]:74 degT-40 Horizontal [place]:151 degT-40 [place]:-77 degT | | | Horizontal [place]:8 degT Wave [place]:51 degS-T [place]:21 degS-T | | | [place]:83 degSeverity:- ABNORMAL ECG -INTERP:SINUS | | | RHYTHMINTERP:VENTRICULAR PREMATURE COMPLEXINTERP:RBBB AND | | | LAFBINTERP:LEFT VENTRICULAR HYPERTROPHYElectronically signed by: | | | ANDREAS MAXWELL 01-18-2019 07:24:33 | | |QTcF:467 ms | | |QRS Horizontal [place]:150 deg | | |QRS [place]:-35 deg | | |I-40 Horizontal [place]:34 deg | | |I-40 [place]:74 deg | | |T-40 Horizontal [place]:151 deg | | |T-40 [place]:-77 deg | | |T Horizontal [place]:8 deg | | |T Wave [place]:51 deg | | |S-T Horizontal [place]:21 deg | | |S-T [place]:83 deg | | |Severity:- ABNORMAL ECG - [...] + + | [facility]AST[facility] | [address] | [place] [address] | [phone] | + + + + + POC Glucose (01/13/2019 10:06 AM PDT) + + + + + + | Component | Value | Ref Range | Performed | Pathologist | | | | | At | Signature | + + + + + + | Glucose, | 111 (H)Comment: | 65 - 99 mg/dL | [facility] | | | POC | Performed by [facility] [address] | | [address] | | | | [address] [place], [place] | | HEART | | | | [address] | | MEDICAL | | | | [...] + + | [facility] | [address] | [place] [address] | | | [facility] | | | | | LABORATORY [...] scheduled: AC, NPO, Daytime | | | 2914-9224 Use NIGHT DOSE for | | | doses scheduled: HS, 3AM, | | | Nighttime 1340-6866 If the BG is | | | [...]
--- OUTSIDE RECORDS SUMMARY | ~2019-05-06 | XMS | Encounter Summary ---
Demographics + + + | Address | [address] | | | [place] [address] | + + + | Home Phone [...] + | Matthew Ramirez | CHRIS | [address] | | | | | [place] | | | | | [address] | | + + + + + | Nella Haque | ECON | Unknown | | + + + + + Care Team Providers + +------+ + | Care Forklift Picker Name | Role | Phone | [...] | | | | | | | [facility] | | | | | | | [place] | | | | | | | [facility] | | | | | | | ([facility]) | | | | | | | [place], | | | | | | | [place] [address] | | | | | | | Phone: | | | | | | | [phone] | | | | | | | Fax: | | | | | | | [phone] | +--------+--------+ + + + + Encounter Details +--------+ + + + + | Date | Type | Department | Care Team | Description | +--------+ + + + + | 10/26/ | Hospital | [facility] [address] | Avis Rios | | | 2010 | Encounter | [address] | MD Gillian [address] | | | | | [facility] | [address] | | | | | [facility] | [place], [place] | | | | | ([place]) | [address] | | | | | [place], [place] | [phone] | | | | | [address] | | | | | | [phone] | | | +--------+ + + + [...] Discharge Instructions Instructions Laura Mendes RN - 10/26/2010[facility] Transvaginal Suburethral Sling WHAT YOU SHOULD KNOW A transvaginal suburethral sling is surgery to treat stress incontinence (rx-OGB-bhl-nasima) . The goal of surgery is to [...] TO REACH YOUR DOCTOR Friday call the [facility] at [phone] After hours, weekend and holidays call the [facility] at [phone]. Ask them to page your doctor. RETURN [...] nostril | | | | | | [place] | once daily. | | | | [...]
--- OUTSIDE RECORDS SUMMARY | ~2019-05-06 | XMS | Encounter Summary ---
Demographics + + + | Address | [address] | | | [place] [address] | + + + | Home Phone [...] Author | [facility] | | | and Nenoana | + + + | Organization | [facility] [...] + | Matthew Ramirez | ECON | [address] | | | | | [place] | | | | | [address] | | + + + + + Care Team Providers + +------+ + | Care Fowl Blood Tester Name | Role | Phone | [...] | | | unspecified | | [place] [address] | | | | | type | | Phone: | | | | | Chronic | | [phone] | | | | | abdominal | | Fax: | | | | | pain | | [phone] | | | | | Benzodiazepi | [...] + + | 12/17/ | Hospital | [facility] | Matthew Shukla MD | Rectal bleeding; | | 2019 | Encounter | MED CTR MP INTRA OP | [address] | Diarrhea, | | | | [address] | [place] | unspecified type; | | | | [place] | [address] | Chronic abdominal | | | | [address] | [phone] | pain; Benzodiazepine | | | | 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 [...] |Scope Out: 3:26:19 PM | | | [facility], [address] [place] [address] | | | [address] | | + + -+ + +---------+ [...] 12/17/2018 | [facility] | | 3:04 PMMRN: [id number] #: [id number] of : | | | 9Admit Type: AmbulatoryAge: 78Room: Endo Room 2Gender: | | | FemaleNote Status: FinalizedAttending MD: Matthew Shukla , | | | MDProcedure: ColonoscopyIndications: Abdominal | | | pain in the left upper quadrant, Hematochezia, | | | Chronic diarrhea, Weight lossProviders: Matthew Rosales | | | MD Gayla, Rina Edouard RN, Conrado Kang, [facility], | | | Devon Murdock MD (Anesthesia [...] the anesthesiologist and the | | | senior engineering technician in the pre-procedure area in [...] | | | evaluated using the BBPS (Providence Bowel Preparation Scale) with | | | [...] PMScope Out: | | | 3:55:04 PM [facility], [address] [facility], | | | [place] [address] | | | - Await pathology results. [...] |Scope Out: 3:55:04 PM | | | [facility], [address] [facility], [place] | | | [address] | | + + -+ + +---------+ + + | Performing | Address | City/State/[facility] Health Servicescode | Phone Number | | Organization | [...] | COMMENT: A -- As part of [facility]' Quality Improvement | | | Program, this portion of the case has been reviewed by another member | | | of our pathology staff with subspecialty training in gastrointestinal | | | pathology. Results called to Dr. Shukla office [facility]) 12/24/18 | | | 10:15 [...] | and its performance characteristics determined by [facility]. | | | It has not been cleared or approved by the U.S. Food and Drug | | | Administration. The FDA has determined that such clearance or | | | approval is not necessary. This test is used for clinical purposes. | | | It should not be regarded as investigational or for research. | | | [facility] is certified under the Clinical Laboratory | | | Improvement Amendments of 1988 (CLIA) as qualified to perform high | | | complexity clinical laboratory testing. PERFORMING LABORATORY: | | | The technical component was performed by [facility], [address] | | | [place] [address] (Crusher Plant Operator: Marilyn Dowell MD; | | | CLIA# [id number]). Professional interpretation was performed by | | | [facility], [address] | | | [address] [place] [address] (Crusher Plant Operator: Guevara Ernandez | | | ; CLIA# [id number]). ADDITIONAL NOTES: Immunohistochemical | | | and/or in situ hybridization studies were performed on this case with | | | the appropriate positive controls that react as expected. This test | | | was developed and its performance characteristics determined by | | | [facility]. It has not been cleared or approved by the U.S. | | | Food and Drug Administration. The FDA has determined that such | | | clearance or approval is not necessary. This test is used for | | | clinical purposes. It should not be regarded as investigational or | | | for research. [facility] is certified under the Clinical | | | Laboratory Improvement Amendments of 1988 (CLIA) as qualified to | | | perform high complexity clinical laboratory testing. PERFORMING | | | LABORATORY: The technical component was performed by [facility] | | | [facility], [address] [place] [address] (Crusher Plant Operator: | | | Marilyn Dowell MD; CLIA# [id number]). Professional interpretation was | | | performed by [facility], [address] [place] [address] | | | [place] [address] (Crusher Plant Operator: Darien Kapoor D.O.; CLIA#: | | | [id number]). REASON FOR ADDENDUM: To add results of [...] the FDA-approved HER-2 Pathway is performed at [facility] | | | [place], [place], on accession #[id number] from at the [...] the Vysis PathVysion kit was performed at [facility] | | | [place]. The assay has not been validated [...] interpretation was | | | performed by [facility], [address] [place] [address] | | | [place] [address] (Crusher Plant Operator: Everardo HillOPeggy; [facility]#: | | | [id number]). Diagnostician: Guevara Ernandez MD Pathologist | | [...] ONCE PRN, | | | Wheezing, Starting [facility] 12/17/18 at | | | 1346, For 1 dose, Pre-op | | + +---+ | | | + +---+ | albuterol-ipratropium 2.5-0.5 | | | mg/3 mL nebulizer solution 3 mL | | | 3 mL, Nebulization, ONCE PRN, | | | Wheezing, Shortness of Breath, | | | Starting [facility] 12/17/18 at 1615, For | | [...] glucose < 50, | | | Starting [facility] 12/17/18 at 1346, | | | Repeat [...]
--- OUTSIDE RECORDS SUMMARY | ~2019-05-06 | XMS | Encounter Summary ---
Demographics + + + | Address | [address] | | | [place] [address] | + + + | Home Phone [...] + | Matthew Ramirez | CHRIS | [address] | | | | | [place] | | | | | [address] | | + + + + + | Nella Haque | ECON | Unknown | | + + + + + Care Team Providers + +------+ + | Care Chef Manager Name | Role | Phone | [...] | | sphincter | MD Gillian | [address] | | | | | deficiency | [address] | [id number] | | | | | (ISD) | [facility] | [facility] | | | | | Urinary | Rd | [place], | | | | | stress | [place], [place] | [place] [address] | | | | | incontinence | [address] | Phone: | | | | | Procedures | Phone: | [phone] | | | | | REQUEST TO | [phone] | Fax: | | | | | SURGERY | Fax: | [phone] | | | | | CYTOGENETICIST | [phone] | | | | | | [place] | | | | | | | CYSTOURETHRO | | | | | | | [place] | | | | | | [...] evaluation | | 2010 | Visit | [facility] | MD Gillian [address] | (Primary Dx); | | | | [address] | [address] | Urinary incontinence | | | | [address] | [place], [place] | | | | | /[id number] [facility] | [address] | | | | | [facility] | [phone] | | | | | [place] [address] | | | | | | [phone] | | | +--------+---------+ + + + [...] PDTDirections to [facility] Clinic in [facility] Exit the Lobby of the [facility] and turn right to take elevator 2 to the 9th floor of the [facility]. Follow signs directing you to the [place] [facility]. The [facility] is located on the 4th floor of the [facility] ([facility]) just next to the exit for the tram. To return to the [facility] or to any of the facilities located on [facility], you will need a tram pass. These are available at no charge to patients with scheduled appointme nts and to those people accompanying them. For a tram pass, ask the medical receptionist medical assistant in the lob by of the [facility] or the person who checks you in for your [facility] appointment. Electronically minnie d by Jackie Sprague [...] 300 mg by mouth three times daily. Giprhszdrja-Lggvtkqqn-Rtx C-Mn (GLUCOSAMINE CHONDROITIN MAXSTR) 500-400 mg Oral [...] the evening. triamcinolone 55 mcg Nasal Aerosol, [place] Instill 2 Sprays into each nostril once [...] Ramirez Number of Children: 3 Occupational History [employer] Social History Main Topics Smoking status: Never Smoker Smokeless tobacco: Never Used Alcohol Use: Yes 0-3/day- wine Drug Use: No Sexually Active: No partner not able Social History Narrative Lives with partner in [place]- 34yrs. Son in [place]. 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 Now traveling [employer]. Review of Systems: Per HPI. All other systems negative PHYSICAL EXAM: BP 140/90 | Pulse 86 | Ht 1.746 m (5' 8.74") | Wt 104.373 kg (230 lb 1.6 oz) | SpO2 99% | B MA 34.24 kg/(m^2) GENERAL: Healthy Appearing, No acute [...] view image for the detailed interpretation from [employer] results. | CARDIOLOGY | + + + + + + + + | Performing | Address | City/State/Zipcode | Phone Number | | Organization | | | | + + + + + | [facility] | [address] | [place], [place] | | | CARDIOLOGY | [address] | [address] | | + + + + + [...] DEPARTMENT OF | [address] | [place] [address] | | | PATHOLOGY | [address] [...] | + + + + + | [facility] | [address] | [place] [address] | | | PATHOLOGY | [address] | | | + + + + + documented in this encounter Visit Diagnoses + + | Diagnosis | + + | Pre-op evaluation - Primary Preoperative examination, unspecified | + + | Urinary incontinence Unspecified urinary incontinence | + + documented in this encounter
--- OUTSIDE RECORDS SUMMARY | ~2019-05-06 | XMS | Encounter Summary ---
Demographics + + + | Address | [address] | | | [place] [address] | + + + | Home Phone [...] | Author | [facility] | | | and eNnoana | + + + | Organization | [facility] | | [...] + | Matthew Ramirez | ECON | [address] | | | | | [place] | | | | | [address] | | + + + + + Care Team Providers + +------+ + | Care Creative Services Coordinator Name | Role | Phone | [...] | | | | Gastric mass | [place], [place] | [place] | | | | | Procedures | [address] | [address] Phone: | | | | | Urgent- | Phone: | [phone] | | | | | EGD + EUS | [phone] | Fax: | | | | | NEXT WEEK | Fax: | [phone] | | | | | | [phone] | | +--------+ + + + + [...] | | | | [address] [facility] | [place], [place] | (Primary Dx) | | | | [address] [place] | [address] | | | | | [address] | [phone] | | | | | [phone] | | | +--------+ + + + [...] patient needed Urgent referral to [facility] for Eval Egd/EUS of gastric adenocarcinoma r/o [...] Gastroenterology | | | | | | ([place]) | | | | | + + +--------+ + + documented as of this encounter Visit Diagnoses + + | Diagnosis | + + | Gastric adenocarcinoma (HCC) - Primary Malignant neoplasm of stomach, unspecified | | site | + + documented in this encounter"
--- OUTSIDE RECORDS SUMMARY | ~2019-05-06 | XMS | Encounter Summary ---
Demographics + + + | Address | [address] | | | [place] [address] | + + + | Home Phone [...] Author | [facility] | | | and Nenoana | + + + | Organization | [facility] [...] + | Matthew Ramirez | CHRIS | [address] | | | | | [place] | | | | | [address] | | + + + + + Care Team Providers + +------+ + | Care Ground Systems Engineer Name | Role | Phone | + +------+ + PCP | Unavailable | + +------+ + Encounter Details +--------+ + + + + | Date | Type | Department | Care Team | Description | +--------+ + + + + | 02/02/ | Hospital [facility] | | | | [facility] | Encounter | MED CTR MP INTRA OP | | | | | | [address] | | | | | | [place] | | | | | | [address] | | | | | | [phone] | | | +--------+ + + + [...]
--- OUTSIDE RECORDS SUMMARY | ~2019-05-06 | XMS | Encounter Summary ---
Demographics + + + | Address | [address] | | | [place] [address] | + + + | Home Phone [...] [facility] | | | and Nenoana | + + + | Organization | [facility] | [...] + | Matthew Ramirez | CHRIS | [address] | | | | | [place] | | | | | [address] | | + + + + + Care Team Providers + +------+ + | Care Buyer Grain Name | Role | Phone | + +------+ + PCP | Unavailable | + +------+ + Encounter Details +--------+ + + + + | Date | Type | Department | Care Team | Description | +--------+ + + + + | 01/26/ | Hospital | [facility] | | | | 2008 | Encounter | MED CTR XRAY [address] | | | | | [address] | | | | | | [place] [address] | | | | | | [phone] | | | +--------+ + + + [...]
--- OUTSIDE RECORDS SUMMARY | ~2019-05-06 | XMS | Encounter Summary ---
Demographics + + + | Address | [address] | | | [place] [address] | + + + | Home Phone [...] | [facility] | | | and Nenoana | + + + | Organization | [facility] | | | and [...] + | Matthew Ramirez | ECON | [address] | | | | | [place] | | | | | [address] | | + + + + + Care Team Providers + +------+ + | Care Program Director/Traffic Director Name | Role | Phone | [...] | | [address] | [place] [address] | | | | | [address] | | | | | | [phone] | | | +--------+ + + + [...]
--- OUTSIDE RECORDS SUMMARY | ~2019-05-06 | XMS | Encounter Summary ---
Demographics + + + | Address | [address] | | | [place] [address] | + + + | Home Phone [...] Author | [facility] | | | and Nenoana | + + + | Organization | [facility] [...] + | Matthew Ramirez | ECON | [address] | | | | | [place] | | | | | [address] | | + + + + + Care Team Providers + +------+ + | Care Administrative Professional Name | Role | Phone | [...] | | | | | | | ME REPAIR | | | | | | [...] Event | HOSPITAL OR INTRA OP | REAL ESTATE PHOTOGRAPHER [address] | | | | | [address] | [place] [address] | | | | | [place], [place] | [phone] | | | | | [address] | | | | | | [phone] | | | +--------+ + + + + Anesthesia Record + + + + + | Procedure Name | Responsible | Anesthesia Start | Anesthesia Stop Time | | | Anesthesiologist | Time | | + + + + + | CORRECTION | Mayank Honeycutt, | 07/04/17 0912 | 07/04/17 1022 | | MARSHA 2, 3, 4 | REAL ESTATE PHOTOGRAPHER | | | | (Left Foot) | [...]
--- OUTSIDE RECORDS SUMMARY | ~2019-05-06 | XMS | Encounter Summary ---
Demographics + + + | Address | [address] | | | [place] [address] | + + + | Home Phone [...] Author | [facility] | | | and Nenoana | + + + | Organization | [facility] [...] + | Matthew Ramirez | CHRIS | [address] | | | | | [place] | | | | | [address] | | + + + + + Care Team Providers + +------+ + | Care Air Route Traffic Controller Name | Role | Phone | + [...] | SR | | | | | [phone] | | | +--------+ + + + [...]
--- OUTSIDE RECORDS SUMMARY | ~2019-05-06 | XMS | Encounter Summary ---
Demographics + + + | Address | [address] | | | [place] [address] | + + + | Home Phone [...] + | Matthew Ramirez | CHRIS | [address] | | | | | [place] | | | | | [address] | | + + + + + | Nella Haque | ECON | Unknown | | + + + + + Care Team Providers + +------+ + | Care President Mortgage Company Name | Role | Phone | + +------+ + | Long Copeland MD | PCP | | + +------+ + Encounter Details +--------+ + + + + | Date | Type | Department | Care Team | Description | +--------+ + + + + | 01/28/ | Procedure | Radiology/Imaging | | | | 2018 | Pass | Lab at [facility] [address] | | | | | | [address]da Mailcode: | | | | | | [facility] | | | | | | Health and Healing, | | | | | | [place] [address] [facility] | | | | | | [place], [place] | | | | | | [address] | | | | | | [phone] | | | +--------+ + + + [...]
--- OUTSIDE RECORDS SUMMARY | ~2019-05-06 | XMS | Encounter Summary ---
Demographics + + + | Address | [address] | | | [place] [address] | + + + | Home Phone [...] + | Matthew Ramirez | CHRIS | [address] | | | | | [place] | | | | | [address] | | + + + + + | Nella Haque | ECON | Unknown | | + + + + + Care Team Providers + +------+ + | Care Sewer Pipe Press Operator Name | Role | Phone [...] | | 2019 | Records | [address] [facility] | [phone] | | | | | [address] | | | | | | [place], [place] | | | | | | [address] | | | +--------+ + + + [...]
--- OUTSIDE RECORDS SUMMARY | ~2019-05-06 | XMS | Encounter Summary ---
Demographics + + + | Address | [address] | | | [place] [address] | + + + | Home Phone [...] + | Matthew Ramirez | CHRIS | [address] | | | | | [place] | | | | | [address] | | + + + + + | Nella Haque | ECON | Unknown | | + + + + + Care Team Providers + +------+ + | Care Saw Runner Name | Role | Phone [...] | | | | | | | [facility] | | | | | | | [facility] | | | | | | | [facility] | | | | | | | ([facility]) | | | | | | | [place], | | | | | | | [place] [address] | | | | | | | Phone: | | | | | | | [phone] | | | | | | | Fax: | | | | | | | [phone] | +--------+--------+ + + + + Encounter Details +--------+ + + + + | Date | Type | Department | Care Team | Description | +--------+ + + + + | 10/26/ | Hospital | [facility] [address] | Avis Rios | | | 2010 | Encounter | [address] | MD Gillian [address] | | | | | [facility] | [address] | | | | | [facility] | [place], [place] | | | | | ([place] [facility]) | [address] | | | | | [place], [place] | [phone] | | | | | [address] | | | | | | [phone] | | | +--------+ + + + [...] Discharge Instructions Instructions Laura Mendes RN - 10/26/2010[facility] Transvaginal Suburethral Sling WHAT YOU SHOULD KNOW A transvaginal suburethral sling is surgery to treat stress incontinence (de-OSJ-lvo-nasima) . The goal of surgery is to [...] TO REACH YOUR DOCTOR Friday call the [facility] at [phone] After hours, weekend and holidays call the Hospital Proposal Engineer at [phone]. Ask them to page your doctor. RETURN [...] nostril | | | | | | Andrews | once daily. | | | | [...]
--- OUTSIDE RECORDS SUMMARY | ~2019-05-06 | XMS | Encounter Summary ---
Demographics + + + | Address | [address] | | | [place] [address] | + + + | Home Phone [...] | [facility] | | | and Neno[place] | + + + | Organization | [facility] | | [...] + | Matthew Ramirez | ECON | [address] | | | | | [place] | | | | | [address] | | + + + + + Care Team Providers + +------+ + | Care Or First Assist Registered Nurse Name | Role | Phone [...] + + | 03/18/ | Telephone | [facility] | Arpan | Coordination Of Care | | 2019 | | MED [facility] | Luis Richadrs MD [address] | | | | | ONCOLOGY CLIN[facility] [address] | [facility] | | | | | [address] [facility] | [place] [address] | | | | | [place] [address] | [phone] | | | | | [phone] | | | +--------+ + + + [...]
--- OUTSIDE RECORDS SUMMARY | ~2019-05-06 | XMS | Encounter Summary ---
Demographics + + + | Address | [address] | | | [place] [address] | + + + | Home Phone [...] | Author | [facility] | | | and [place]eno[place] | + + + | Organization | [facility] | [...] + | Matthew Ramirez | ECON | [address] | | | | | [place] | | | | | [address] | | + + + + + Care Team Providers + +------+ + | Care Quality Assurance Tester Name | Role | Phone | [...] | | | | [K31.9] | | [address] Phone: | | | | | Procedures | | [phone] | | | | | [place] | | Fax: | | | | | ESOPHAGOGAST | | [phone] | | | | | RODUODENOSCO | [...] + + | 01/13/ | Hospital | [facility] | Skuumar Stevenson MD | 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 | Encounter | [facility] | [address] [place] | of overlapping sites | | | | INTRA OP [address] | [address] | of stomach (HCC) | | | | [address] [place] | [address] | | | | | [address] | | | | | | [phone] | | | +--------+ + + + [...] | | | LABORATORY | | Acct: [id number] Location: | [facility] | | [facility]; [facility] MEDICAL PROCEDURE UNIT POOL; [facility] | | | MEDICAL PROCEDURE UNIT POOL | | | Case #: [id number] Ordering: | | | SUKUMAR STEVENSON MD Client: [facility] | | | [facility] Copy To: | | | Printed: 01/20/2019 09:40 PDT | | | SURGICAL PATHOLOGY FINAL REPORTCollected: | | | Received: | | | Responsible Pathologist:01/13/2019 12:45 PDT | | | 01/13/2019 13:25 PDT [facility] | | | DIAGNOSIS:A. Gastric antrum at [...] | | | Mild inactive chronic gastritis.[facility] 01/14/19 01:36 pmVerified | | | by: ANNABELLE FULLER MDVerify Date: 01/20/2019 09:40 [facility] | | | [facility] [address] | | | SURGICAL PATHOLOGY FINAL REPORTCollected: [...] stain appropriately.As a part of our quality engineering manager | | | policy, this case has [...] and their performance characteristics determined by [facility]. This test is used for clinical | | | purposes. It should not be regarded as investigational or for | | | research. [facility] is certified under the Clinical [...] + + | [facility] | [address] | [place] [address] | | | [facility] | | | | | LABORATORY EZE | | | | + + + + + EUS Upper (01/13/2019 11:39 AM PDT) + + | Specimen | + + | | + + + + + | Narrative | Performed At | + + + | Corinne | [address] | | [facility] | PROVATION | | CenterGI | | | Patient Name: Ashly Ramirez Procedure | | | Date: 01/13/2019 11:39 AMMRN: [id number] | | | of : 1940 | [...] AMNumber | | | of Addenda: 0 [facility] | | Endoscopy Services | | | | | |SUKUMAR STEVENSON MD | | |01/13/2019 1:07:25 PM | | |This report has been signed electronically. | | | | | |Note Initiated On: 01/13/2019 11:39 AM | | |Number of Addenda: 0 | | | | | | [facility] | | + + [...] | TRACEMASTER | | Duration:172 msP Horizontal Palmer:28 degP Front Palmer:60 degQ Onset:512 | | | msQRSD Interval:136 msQT Interval:448 msQTcB:477 msQTcF:467 msQRS | | | Horizontal Palmer:150 degQRS Palmer:-35 degI-40 Horizontal Palmer:34 degI-40 | | | Front Palmer:74 degT-40 Horizontal Palmer:151 degT-40 Front Palmer:-77 degT | | | Horizontal Palmer:8 degT Wave Palmer:51 degS-T Horizontal Palmer:21 degS-T | | | Front Palmer:83 degSeverity:- ABNORMAL ECG -INTERP:SINUS | | | RHYTHMINTERP:VENTRICULAR PREMATURE COMPLEXINTERP:RBBB AND | | | LAFBINTERP:LEFT VENTRICULAR HYPERTROPHYElectronically signed by: | | | ANDREAS MAXWELL 01-18-2019 07:24:33 | | |QTcF:467 ms | | |QRS Horizontal Palmer:150 deg | | |QRS Palmer:-35 deg | | |I-40 Horizontal Palmer:34 deg | | |I-40 Front Palmer:74 deg | | |T-40 Horizontal Palmer:151 deg | | |T-40 Front Palmer:-77 deg | | |T Horizontal Palmer:8 deg | | |T Wave Palmer:51 deg | | |S-T Horizontal Palmer:21 deg | | |S-T Front Palmer:83 deg | | |Severity:- ABNORMAL ECG - [...] + + | [facility]AST[facility] | [address] | [place] [address] | [phone] | + + + + + POC Glucose (01/13/2019 10:06 AM PDT) + + + + + + | Component | Value | Ref Range | Performed | Pathologist | | | | | At | Signature | + + + + + + | Glucose, | 111 (H)Comment: | 65 - 99 mg/dL | [facility] | | | POC | Performed by [facility] [address] | | [address] | | | | [address] [place], [place] | | HEART | | | | [address] | | MEDICAL | | | | [...] + + | [facility] | [address] | [place] [address] | | | [facility] | | | | | [...] scheduled: AC, NPO, Daytime | | | 5299-5522 Use NIGHT DOSE for | | | doses scheduled: HS, 3AM, | | | Nighttime 0764-4474 If the BG is | | | [...]
--- OUTSIDE RECORDS SUMMARY | ~2019-05-06 | XMS | Encounter Summary ---
Demographics + + + | Address | [address] | | | [place] [address] | + + + | Home Phone [...] + | Matthew Ramirez | ECON | [address] | | | | | [place] | | | | | [address] | | + + + + + | Nella Haque | ECON | Unknown | | + + + + + Care Team Providers + +------+ + | Care Chief Learning Officer Name | Role | Phone | [...]
--- OUTSIDE RECORDS SUMMARY | ~2019-05-06 | XMS | Encounter Summary ---
Demographics + + + | Address | [address] | | | [place] [address] | + + + | Home Phone [...] [facility] | | | and [place] | + + + | Organization | [facility] | [...] + | Matthew Ramirez | CHRIS | [address] | | | | | [place] | | | | | [address] | | + + + + + Care Team Providers + +------+ + | Care Director Of Occupational Therapy Name | Role | Phone | + +------+ + PCP | Unavailable | + +------+ + Encounter Details +--------+ + + + + | Date | Type | Department | Care Team | Description | +--------+ + + + + | 03/20/ | Hospital | [facility] | | | | 1994 | Encounter | MED CTR XRAY [address] | | | | | | [address] | | | | | | [place] [address] | | | | | | [phone] | | | +--------+ + + + [...]
--- OUTSIDE RECORDS SUMMARY | ~2019-05-06 | XMS | Encounter Summary ---
Demographics + + + | Address | [address] | | | [place] [address] | + + + | Home Phone [...] + | Author | [facility] | | | and [place]eno[place] | + + + | Organization | [facility] [...] + | Matthew Ramirez | ECON | [address] | | | | | [place] | | | | | [address] | | + + + + + Care Team Providers + +------+ + | Care Advanced Manufacturing Consultant Name | Role | Phone | [...] + + | 12/24/ | Telephone | [facility] | Matthew Shukla MD | Results | | 2019 | | GASTROENTEROLOGY | [address] [facility] | | | | | [address] [facility] | [place], [place] | | | | | [address] [place], [place] | [address] | | | | | [address] | [phone] | | | | | [phone] | | | +--------+ + + + [...]
--- OUTSIDE RECORDS SUMMARY | ~2019-05-06 | XMS | Encounter Summary ---
Demographics + + + | Address | [address] | | | [place] [address] | + + + | Home Phone [...] + | Matthew Ramirez | CHRIS | [address] | | | | | [place] | | | | | [address] | | + + + + + | Nella Garland | ECON | Unknown | | + + + + + Care Team Providers + +------+ + | Care Vice Chair Name | Role | Phone | + [...] | | sphincter | MD Gillian | [address] | | | | | deficiency | [address] | [id number] | | | | | (ISD) | [facility] | [facility] | | | | | Urinary | Rd | [place], | | | | | stress | [place], [place] | [place] [address] | | | | | incontinence | [address] | Phone: | | | | | Procedures | Phone: | [phone] | | | | | REQUEST TO | [phone] | Fax: | | | | | SURGERY | Fax: | [phone] | | | | | LEAD SYSTEMS ARCHITECT | [phone] | | | | | | [place] | | | | | | | CYSTOURETHRO | | | | | | | SCOP[place] | | | | | | [...] | | | | | | | [place] | | | | | | | [id number] | | | | | | | [facility] | | | | | | | [facility] | | | | | | | [place] [address] | | | | | | | Phone: | | | | | | | [phone] | | | | | | | Fax: | | | | | | | [phone] | +--------+--------+ + + + + Encounter Details +--------+---------+ + + + | Date | Type | Department | Care Team | Description | +--------+---------+ + + + | 10/03/ | [facility] Avis Rios | 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 Sprague and agree with [facility] findings and plan as documented in her [...] be found in the scanned documents in [facility]. They have also been ent ered into the [facility] database. PHYSICAL EXAM BP 160/90 | [...] October 26 with preop October 25. TVT [id number] Patient seen and discussed with Dr. Rios. Christiana Cullen RN - 10/03/2010 11:26 AM PDTUrine dipstick ordered and pt voided 295 mL of urine. Pt prepped with betadine. 14 iranian straight cath through pts external urethra for [...] + +--------+ + + + | OR CYSTOMETROGRAM | Routin | 11/01/2010 | Intrinsic | | | W/WINCH RUNNER&UP | e | 10:19 PM | sphincter deficiency | | | | | PDT | (ISD) Urinary | | | | | | stress incontinence | | + +--------+ + + + | OR INTRAABDOMINAL | Routin | 11/01/2010 | Intrinsic | | | VOIDING PRESSURE | e | 10:19 PM | sphincter deficiency | | | STUDY,AP,GLOBAL | | PDT | (ISD) Urinary | | | | | | stress incontinence | | + +--------+ + + + | [place] | Routin | 11/01/2010 | Intrinsic | | | UROFLOWMETRY,COMPLEX | e | 10:19 PM | sphincter deficiency | | | ,GLOBAL | | PDT | (ISD) Urinary | | | | | | stress incontinence | | + +--------+ + + + | OR CYSTOMETROGRAM, | Routin | 11/01/2010 | Intrinsic | | | COMPLEX, GLOBAL | e | 10:19 PM | sphincter deficiency | | | | | PDT | (ISD) Urinary | | | | | | stress incontinence | | + +--------+ + + + | OR INTRAABDOMINAL | Routin | 11/01/2010 | Intrinsic [...] + +--------+ + + + | OR NURSE 2 | Routin | 10/03/2010 | [...] [facility] | [address] | [place], [place] | | | [facility] | [address] | [address] | | | TESTS | | | [...]
--- OUTSIDE RECORDS SUMMARY | ~2019-05-06 | XMS | Encounter Summary ---
Demographics + + + | Address | [address] | | | [place] [address] | + + + | Home Phone [...] | Author | [facility] | | | and [place] | + + + | Organization | [facility] [...] + | Matthew Ramirez | CHRIS | [address] | | | | | [place] | | | | | [address] | | + + + + + Care Team Providers + +------+ + | Care Rotary Surface Grinder Name | Role | Phone | + +------+ + PCP | Unavailable | + +------+ + Encounter Details +--------+ + + + + | Date | Type | Department | Care Team | Description | +--------+ + + + + | 07/24/ | Hospital | [facility] | | | | 1999 | Encounter | MED CTR XRAY [address] | | | | | | [address] | | | | | | [place] [address] | | | | | | [phone] | | | +--------+ + + + [...]
--- OUTSIDE RECORDS SUMMARY | ~2019-05-06 | XMS | Encounter Summary ---
Demographics + + + | Address | [address] | | | [place] [address] | + + + | Home Phone [...] | [facility] | | | and [place] | + + + | Organization | [facility] | | | and Neno[place] [...] + | Matthew Ramirez | CHRIS | [address] | | | | | [place] | | | | | [address] | | + + + + + Care Team Providers + +------+ + | Care Patch Press Operator Name | Role | Phone | + +------+ + PCP | Unavailable | + +------+ + Encounter Details +--------+ + + + + | Date | Type | Department | Care Team | Description | +--------+ + + + + | 12/08/ | Hospital | [facility] | Offenstein, | | | 2009 | Encounter | MED CTR GENERIC OP | Katerin Xavier MD | | | | | CONV DEPT [address] | | | | | | [place], | | | | | | [place] [address] | | | | | | [phone] | | | +--------+ + + + [...]
--- OUTSIDE RECORDS SUMMARY | ~2019-05-06 | XMS | Encounter Summary ---
Demographics + + + | Address | [address] | | | [place] [address] | + + + | Home Phone [...] | Author | [facility] | | | and Nenoana | + + + | Organization | [facility] | | [...] + | Matthew Ramirez | ECON | [address] | | | | | [place] | | | | | [address] | | + + + + + Care Team Providers + +------+ + | Care Custom Shop Worker Name | Role | Phone | [...] | | ma (HCC) | [address] | [place] | | | | | | [place] | [place], | | | | | | [address] | [place] [address] | | | | | | Phone: | Phone: | | | | | | [phone] | [phone] | | | | | | Fax: | Fax: | | | | | | [phone] | [phone] | +--------+ + + + + + [...] | | | | bhargav ([facility]) | [address] | [address] | | | | | | [place], [place] | [place], | | | | | | [address] | [place] [address] | | | | | | Phone: | Phone: | | | | | | [phone] | [phone] | | | | | | Fax: | Fax: | | | | | | [phone] | [phone] | +--------+ + + + + + Encounter Details +--------+ + + + + | Date | Type | Department | Care Team | Description | +--------+ + + + + | 01/05/ | Hospital | [facility] | Arpan, | 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
--- OUTSIDE RECORDS SUMMARY | ~2019-05-06 | XMS | Encounter Summary ---
Demographics + + + | Address | [address] | | | [place] [address] | + + + | Home Phone [...] | Author | [facility] | | | and Nenoana | + + + | Organization | [facility] | | | and [...] + | Matthew Ramirez | ECON | [address] | | | | | [place] | | | | | [address] | | + + + + + Care Team Providers + +------+ + | Care Dairy Manufacturing Technologist Name | Role | Phone | [...] Christie [address]LEY | | | | | [phone] | [place] [address] | | +--------+ + + + + [...]
--- OUTSIDE RECORDS SUMMARY | ~2019-05-06 | XMS | Encounter Summary ---
Demographics + + + | Address | [address] | | | [place] [address] | + + + | Home Phone [...] + | Matthew Ramirez | CHRIS | [address] | | | | | [place] | | | | | [address] | | + + + + + | Nella Lowery ECON | Unknown | | + + + + + Care Team Providers + +------+ + | Care Electrical Engineering Professor Name | Role | Phone | [...] | Requisition | [address] | [address] | | | | | [address] [place], [place] | [place], [place] | | | | | [address] | [address] | | | | | | [phone] | | | | | | | [...]
--- OUTSIDE RECORDS SUMMARY | ~2019-05-06 | XMS | Encounter Summary ---
Demographics + + + | Address | [address] | | | [place] [address] | + + + | Home Phone [...] + | Author | [facility] | | | and Neno[place] | + + + | Organization | [facility] | [...] + | Matthew Ramirez | CHRIS | [address] | | | | | [place] | | | | | [address] | | + + + + + Care Team Providers + +------+ + | Care Python Developer Name | Role | Phone | + +------+ + PCP | Unavailable | + +------+ + Encounter Details +--------+ + + + + | Date | Type | Department | Care Team | Description | +--------+ + + + + | 03/28/ | Hospital | [facility] | | | | 1996 | Encounter | MED CTR LABORATORY | | | | | | [address] | | | | | | [place] | | | | | | [address] | | | | | | [phone] | | | +--------+ + + + [...]
[~2019-05-06 22:16] MED LIST changes: -ADVAIR 100-501 EACH INH; +ADVAIR 250-501 EACH INH
--- OUTSIDE RECORDS SUMMARY | 2019-05-06 22:18 | XMS ---
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 [place] VISIT COUNT (12 MO.) 1 PABLO Gilbert TOTAL 1 NOTE: Visits indicate total known visits. ED/UCC VISIT TRACKING (12 MO.) 05/06/2019 22:17 PABLO Hernandez OR TYPE: Emergency COMPLAINT: - VOMITING INPATIENT VISIT TRACKING (12 MO.) No inpatient visits to display in this time frame [email or web address]
[2019-05-06] MEDS ORDERED: TAMOXIFEN CITRA20 MG PO (22:58)
--- NOTE | 2019-05-07 04:18 | NUR ---
PT ASSESSMENT COMPLETED. SCHEDULED IV FLUIDS PROVIDED. PRN PAIN MED PROVIDED FOR LOWER ABD PAIN 5/10. PT DENIES NAUSEA. IV FLUSHED WELL. WARM BLANKET PROVIDED. NO OTHER NEEDS, CALL LIGHT IN REACH.
--- NOTE | 2019-05-07 06:10 | NUR ---
PT RESTING IN BED, EYES CLOSED. RR 16, EVEN, UNLABORED. CALL LIGHT IN REACH.
--- NOTE | 2019-05-07 06:37 | NUR ---
PT HAS SLEPT WELL THIS SHIFT. PAIN 5/10 IN LOWER ABD, WELL MANAGED WITH PRN PAIN MED. PT HAS NOT HAD NAUSEA. PT TOLERATED NG TUBE WELL WITH MILD IRRITATION TO THE BACK OF THE THROAT. IV CDI, WNL, FLUSHED WELL.
--- NOTE | 2019-05-07 07:49 | NUR ---
PT IS AWAKE EARLY, STATES SHE NAPPED ON AND OFF. ACTIVE BT'S THIS AM, STATES SHE IS PASSING FLATUS. DENIES NAUSEA THIS AM, NG PATENT. RATES PAIN 4/10 DUE TO HER FIBROMYALGIA. CALL LIGHT IN EASY REACH.
--- NOTE | 2019-05-07 09:12 | NUR ---
SBA TO WALK INTO BATHROOM TO VOID, REPORTS NAUSEA IS BETTER THIS MORNING. STATES SHE IS REALLY TIRED, DECLINED SITTING UP IN RECLINER YET, ASKED IF SHE CAN NAP A BIT LONGER. NG TO LIS. CALL LIGHT IN EASY REACH.
--- NOTE | 2019-05-07 09:20 | NUR ---
PT RESTING SUPINE IN BED ALERT AND ORIENTED. ASSESSMENT COMPLETED. CALL LIGHT AND H2O IN REACH. PT REPORTS THAT SHE IS PASSING SOME FLATUS AND DENIES NAUSEA, PAIN OR SOB. BT'S ACTIVE IN ALL QUADRANTS AND PT HAS HAD ONLY LITTLE OUTPUT THROUGH NG THROUGHOUT THE NIGHT. NO NEEDS OR CONCERNS VOICED.
--- NOTE | 2019-05-07 09:30 | NUR ---
In and spoke with Ashly. She is retired at [employer] in [place] with with dementia. Daughter, Nella, helps her and is staying with spouse while she is hospitalized. Pt. states concern she is having issues with her memory also. Retired but worked in [employer] programs. Awaiting visit from Dr. Arellano and may have procedure this afternoon. She is unsure what procedure. Would like to dc to home when she is able.
--- NOTE | 2019-05-07 10:32 | NUR ---
PT RESTING IN SEMIFOWLERS POSITION IN BED WITH NG TO LIWS. PT REPORTS GENERALIZED BODY ACHES. PT SWTATES "IT'S MY NORMAL PAIN I GET FROM MY FIBROMYALGIA". PT REQEUSTED AND RECEIVED PRN IV OFIRMEV -SEE EMAR. PT UP TO RESTROOM WITH SBA. PT AMBULATES WITH STEADY GAIT. PT BACK TO BED, NG BACK TO LIWS. PT STATES SHE IS STILL PASSING SMALL AMOUNTS OF FLATUS. CALL LIGHT IN REACH.
--- NOTE | 2019-05-07 12:58 | NUR ---
PATIENT TO SURGERY WITH VIRI TONG
[2019-05-07] MEDS ORDERED: ZESTRIL20 MG PO (14:18)
--- NOTE | 2019-05-07 16:36 | NUR ---
05/07/19 1636 Astrid Parra 1608- PT ARRIVES TO PACU EASILY AROUSABLE TO VOICE. PT FALLS BACK TO SLEEP WHEN NOT BEING STIMULATED. RESP EVEN AND UNLABORED. OXYGEN SAT LOW 90'S ON RA. 1611- PT'X OXYGEN SAT DECREASED TO 89% ON RA. PT ENCOURAGED TO TAKE DEEP BREATHS. PT IS ABLE TO DO THIS AND OXYGEN SAT INCREASED TO THE MID TO HIGH 90'S ON RA. LUNGS ARE CLEAR THROUGHOUT ON AUSCULATION.
--- NOTE | 2019-05-07 17:15 | NUR ---
Patient arrives to unit via hospital bed from PACU. Patient on RA with cpox in place, SpO2 of 92%. Report received, orders acknowledged. Assessment complete. Midline incision is covered with allevyn, no shadowing present. Patient has a TONI drain in her RLQ, draining serosanginous fluid. RLQ has a gauze taped over two laparoscopic sites. Hypoactive bowel tones in all quadrants. Patient denies pain or nausea. LR running at 125 mls/hr, IV abx running at 200 mls/hr. Pillow in place over abdomen to splint while coughing. Fuentes cath in place, NG tube in place. NG tube connected to LIWS, 150 mls of drainage noted upon arrival. Patient denies needs at this time, call light within reach.
--- NOTE | 2019-05-07 18:40 | NUR ---
Patient laying in bed watching tv. Denies pain or nausea. LR running at 125 mls/hr. NG tube in place connected to LIWS, fenton cath in place. Dressing over midline incision is C/D/I. Gauze over two lap sites in RLQ have increased shadowing from prior assesment. Shadowing outlined with pen. TONI drained 75 mls of of sanginous fluid. Patient denies further needs at this time, call light within reach.
--- NOTE | 2019-05-07 19:35 | NUR ---
PT RESTING IN BED, WATCHING TV. PT DENIES PAIN. INCISION SITES HAVE SANGUINOUS BLOOD, SMALL. BANDAGES CHANGED. TONI EMPTIED. NO OTHER NEEDS. CALL LIGHT IN REACH.
--- NOTE | 2019-05-07 19:51 | NUR ---
VITALS DONE AND CHARTED. PT NEEDS NOTHING MORE AT THIS TIME. BEDSIDE TABLE AND CALL LIGHT IN REACH.
--- NOTE | 2019-05-07 20:35 | NUR ---
ASSESSMENT, I&O AND VS COMPLETED. NG ON LOW INTERMITTENT, FIGUEROA WNL. IV FLUSHED WELL, SCDs ON. INCISION DRY AND INTACT WITH DRIED BLOOD SPOTS ON COVERING. PT DENIES PAIN. UP TO BSC. CPOX ON. NO OTHER NEEDS. CALL LIGHT IN REACH.
--- NOTE | 2019-05-07 23:25 | NUR ---
PT CALLS TO USE BR. PT BACK IN BED. NG TUBE LOW INTERMITTENT, CPOX 96@ RA, FIGUEROA INTACT, TONI DRAIN INTACT. NO OTHER NEEDS. CALL LIGHT IN REACH.
--- NOTE | 2019-05-07 23:31 | NUR ---
PT CALLED ASKING ABOUT A PILLOW FOR HER STOMACH. I GAVE HER ONE . SHE NEEDS NOTHING MORE AT THIS TIME.
--- NOTE | 2019-05-08 00:24 | NUR ---
PT RESTING IN BED, EYES CLOSED. SCHEDULED MED PROVIDED. PT WAKES, NO NEEDS. CALL LIGHT IN REACH.
--- NOTE | 2019-05-08 02:13 | NUR ---
PT UP TO BR. PRN PAIN MED PROVIDED FOR 5/10 ABD PAIN. NEW BAG OF IV FLUIDS PROVIDED. INCISION SITE BANDAGING CHANGED DUE TO DRAINAGE. TONI DRAIN EMPTIED BY August. NO OTHER NEEDS, CALL LIGHT IN REACH.
--- NOTE | 2019-05-08 05:34 | NUR ---
PT HAS SLEPT OFF AND ON THIS SHIFT. PAIN MANAGED WITH PRN PAIN MEDS. INCISION BANDAGING HAS BEEN CHANGED TWICE DUE TO SATURATION. INCISIONS WNL, STERI STRIPS OVER MIDLINE INCISION WITH ACTICOAT SURGICAL COVERING. TONI SITE COVERED WITH GAUZE AND FOAM TAPE. PT TOLERATED NG TUBE AND FIGUEROA WELL.
--- NOTE | 2019-05-08 05:57 | NUR ---
PT AWAKE IN ROOM. SCHEDULED MED PROVIDED. I&O AND VS COMPLETED. NO OTHER NEEDS. CALL LIGHT IN REACH.
--- NOTE | 2019-05-08 07:17 | NUR ---
PT UP TO TOILET PASSING LOOSE STOOL. REPORT RECEIVED
--- NOTE | 2019-05-08 08:21 | NUR ---
XRAY COMPLETE. PT RETURNS TO THE TOILET PASSING LOOSE STOOL. PERSONAL CARE ITEMS PROVIDED. PT DENIES PAIN OR OTHER DISCOMFORTS JUST C/O LOOSE STOOL REQUESTING MEDICATIONS FOR THIS. DISCUSSED MED REGIMEN AT LENGTH ENCOURAGED PT TO ENDURE THIS PASSES AND ANTICIPATE SPEAKING WITH THE MD
--- NOTE | 2019-05-08 08:53 | NUR ---
PATIENT AMBULATED TO BEDSIDE RECLIINER, THEN DECIDED TO GO BACK TO BED INSTEAD. PATIENT HOOKED BACK UP TO SUCTION, CALL LIGHT IN REACH. PATIENT STATES SHE DOES NOT FEEL UP TO A SHOWER TODAY BUT WOULD RATHER DO ONE TOMORROW. NO OTHER NEEDS AT THIS TIME.
--- NOTE | 2019-05-08 10:50 | NUR ---
Medications reconciled using pharmacy records and patient interview. Patient takes tamoxifin HX Breast CA
--- NOTE | 2019-05-08 11:48 | NUR ---
PT RESTING IN BED EYES CLOSED APPEARS COMFORTABLE
--- NOTE | 2019-05-08 12:14 | NUR ---
PT SATS 100% PULSE OX DC'D, UP AMBULATES THE [facility] SBA WITH CANE, WELL TOLERATED. PT UP IN THE CHAIR AT THIS TIME. DENIES PAIN OR DISCOMFORTS. CALL LIGHT IN HAND
--- NOTE | 2019-05-08 13:39 | NUR ---
pt resting in bed visiting with friends x2
--- NOTE | 2019-05-08 13:50 | EKG ---
[facility] [address] [facility] [place], [place] [address] Signed Normal sinus rhythm Left axis deviation Right bundle branch block Left ventricular hypertrophy with repolarization abnormality Abnormal ECG No previous ECGs available Confirmed by MARIA VICTORIA BRADFORD MD ([id number]) on 05/08/2019 1:50:28 PM Electronically Signed By: MARIA VICTORIA BRADFORD MD 05/08/19 1350 PATIENT NAME: HOWIE GOMEZ Electrocardiogram DATE OF : 36 PHYSICIAN: MARIA VICTORIA BRADFORD MD REPORT #: [id number] REPORT IS CONFIDENTIAL AND NOT TO BE RELEASED WITHOUT AUTHORIZATION
--- NOTE | 2019-05-08 14:30 | OR ---
[facility] [address] [place], [place] [address] Signed DATE OF OPERATION: 05/07/2019 SURGEON: Yovana Rocha MD PREOPERATIVE DIAGNOSES: 1. Small bowel obstruction, possible internal hernia or segmental volvulus. 2. 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 POSTOPERATIVE DIAGNOSES: 1. 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 2. Mesh entrapment of small bowel. 3. No evidence of carcinomatosis. PROCEDURE PERFORMED: Laparotomy with extensive lysis of adhesions and partial mesh excision. ANESTHESIA: General endotracheal. ANESTHESIOLOGIST: Gerard Lira CRNA. INDICATIONS: This 78-year-old white woman was admitted last night, 05/06/2019, with relatively sudden onset of low abdominal pain in the mid to suprapubic area. She has undergone sigmoid resection in the distant past for diverticular disease. She is relatively uninformed as to her other operations, which as it turns out are multiple including abdominal wall reconstruction with mesh, probable bladder suspension with retrocystic implantation of mesh, but is aware of what has been discovered as metastatic breast cancer to the stomach based on endoscopic biopsies and other evaluations elsewhere. Her CT scan which was performed last night shows a segment of bowel which appears dilated and suggestive of volvulus or possible internal hernia. Notably she suffered a mid small bowel obstruction, which was managed conservatively by Dr. Adorno in 2018. She shows no sign of toxicity or peritonitis, but given the findings on CT scan, laparotomy has been recommended. The risk of bleeding, infection, failure to cure the problem, need for other indicated procedures, particularly if metastatic breast cancer should be discovered. All reviewed in detail. She understands as does her to Electronically Signed By: YOVANA ROCHA MD 05/08/19 1430 PATIENT NAME: HOWIE GOMEZ OPERATIVE REPORT DATE OF : 36 REPORT #: [id number] PHYSICIAN: YOVANA ROCHA MD PCP: HOWIE BAÑUELOS REPORT IS CONFIDENTIAL AND NOT TO BE RELEASED WITHOUT AUTHORIZATION [facility] [address] [place], [place] [address] Signed the extent he can (dementia) and her daughter assuredly. FINDINGS: A hostile abdomen was encountered. Midline laparotomy was extended from the umbilicus to the symphysis pubis. There were dense adhesions throughout the abdomen and it is quite unlikely that an internal hernia or volvulus could have resulted in such an abdominal confine. Adhesions were noted from mesh that had been implanted for abdominal reconstruction (evidently not recalled by the patient), which formed adenitis, inflammatory change, and likely contributory to the area of apparent obstruction on CT scan. Portions of the mesh were excised. There was no free space within the peritoneal cavity essentially at all. Interloop adhesions and essentially fusion to the abdominal wall laterally on both sides was noted. The area in question showing bowel loop distention was not ischemic by any means nor compromise in any way. Adhesiolysis was undertaken to the extent possible, but full laparotomy and complete lysis of adhesions could not safely be undertaken without extreme hazard of enterotomy and likely development of fistula formation so forth. On that basis, adhesions were freed from the abdominal wall to the segment that was affected by that. Additionally, dissection was carried into the space of Retzius, where mesh was noted bilaterally. This was not a site of obstruction by any means, but may have been a secondary site of inflammation contributing to the obstructive appearance on CT scan. A drain was placed in that space as well. DESCRIPTION OF PROCEDURE: The patient was brought to the operating room, given a general endotracheal anesthetic. Note is made of a difficult intubation due to anatomic factors, but it was accomplished by the legislative aide with a bougie safely. A Fuentes catheter was placed. The abdomen was then prepared with a chlorhexidine solution and draped sterilely. She received preoperative antibiotic cefoxitin. Incisions of her abdomen included a long midline incision and a Pfannenstiel type incision along the line of skin tension. An incision was made in the previous incision just to the left of the umbilicus. Dissection carried to the symphysis pubis. Thick abdominal wall pannus was divided and electrocautery used for hemostasis. Entry of the abdomen was undertaken at the apex of the wound, showing dense omental adhesions to the area. Meticulous care was maintained to incise the fascia and develop a plane between the fascia and the abdominal contents. This was very dense in the midportion of the lower aspect of the abdomen, where mesh appeared to have been implanted in the past. Dissection was begun on the right side initially using sharp and limited amounts of electrocautery, freeing abdominal fat (omentum) from the abdominal contents. Further dissection was taken inferiorly. A plane was developed inferiorly, which ultimately proved to be the space of Retzius, where bilateral mesh implant was noted. This was not Electronically Signed By: YOVANA ROCHA MD 05/08/19 1430 PATIENT NAME: HOWIE GOMEZ OPERATIVE REPORT DATE OF : 36 REPORT #: [id number] PHYSICIAN: YOVANA ROCHA MD PCP: HOWIE BAÑUELOS REPORT IS CONFIDENTIAL AND NOT TO BE RELEASED WITHOUT AUTHORIZATION [facility] [address] [place], [place] [address] Signed into the peritoneal cavity. The Fuentes catheter and bulb could be felt in the area. The area was packed off with laparotomy packs and dissection re-initiated more proximally. Left and right-sided dissection was undertaken ultimately freeing the abdominal wall from the abdominal contents. Review of the enteric contents showed essentially a frozen abdomen. Omentum was covering much of it and was fused contiguously with some mesh as well. A plane was created between the mesh on the right side of the abdomen and omentum ultimately identifying bowel loops, which were frozen in place with interloop adhesions. There was essentially no free space within the peritoneal cavity for which a volvulus or internal hernia would likely develop and is considered most likely the obstructed appearance of the bowel was in the area contiguous with the mesh implant from the past. Attention was turned to freeing this up as much as possible. Ultimately, on the left side bowel loops could be identified, which were quite viable, but were similarly fused to the abdominal wall fascia. They were freed up as much as possible, but extreme care was taken to avoid enterotomy in any sense. It became clear that further dissection to free loops of bowel entirely would be quite unlikely, beneficial, and almost assuredly detrimental in the long run. Since the area of dense adhesions overlying the area are somewhat dilated but completely viable bowel, the operation was considered concluded and with probable but uncertain benefit in aggregate. Bowel rest and resolution of additional obstructive symptoms will be necessary in this situation. A small stab incision was made in the right lower quadrant allowing for placement of a Chucho drain in the space of Retzius. The drain was secured with nylon suture. Irrigation was undertaken in the abdomen and elsewhere fully. Clips were applied to blood vessels in the space of Retzius as needed. Midline fascia was then reapproximated with running bidirectional #1 PDS suture. Skin was closed with running subcuticular 3-0 Vicryl after irrigation of the subcutaneous space with saline. A silver sponge adherent dressing was then applied. Drain was attached to bulb suction. The patient was ultimately extubated without complication, anticipating transfer to the recovery room in good condition. Blood loss was less than 50 mL in aggregate. MD DENI Tovar/KATHRINL /[id number] Electronically Signed By: YOVANA ROCHA MD 05/08/19 1430 PATIENT NAME: HOWIE GOMEZ OPERATIVE REPORT DATE OF : 36 REPORT #: [id number] PHYSICIAN: YOVANA ROCHA MD PCP: HOWIE BAÑUELOS REPORT IS CONFIDENTIAL AND NOT TO BE RELEASED WITHOUT AUTHORIZATION [address] [address] Signed cc: MD Kassandra King, KAY Domingo Copies: AKUA GONZALEZ MD, KELLY DEAN MD HARRIES, LINDA PA ~ Electronically Signed By: YOVANA ROCHA MD 05/08/19 1430 PATIENT NAME: HOWIE GOMEZ OPERATIVE REPORT DATE OF : 36 REPORT #: [id number] PHYSICIAN: YOVANA RCOHA MD PCP: HOWIE BAÑUELOS REPORT IS CONFIDENTIAL AND NOT TO BE RELEASED WITHOUT AUTHORIZATION
--- NOTE | 2019-05-08 14:30 | HP ---
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 She is considered refuted to have linitis plastica as was possibly documented with initial endoscopy. It is notable that no breast biopsy, mastectomy, or other intervention has been done on the breast, only therapy with tamoxifen. This will not materially affect our plan for laparotomy to remedy the small bowel obstruction whatever its cause. I discussed with the patient and her , who is now present and of course her daughter Nella Frias, the particulars of operation to remedy the small bowel obstruction. They understand and wished to proceed. MD DENI Tovar/DAVID /[id number] cc: KAY Douglass MD Copies: HOWIE BAÑUELOS ROBERT C MD ~ Electronically Signed By: YOVANA ROCHA MD 05/08/19 1430 PATIENT NAME: HOWIE GOMEZ HISTORY AND PHYSICAL DATE OF : 36 REPORT #: [id number] PHYSICIAN: YOVANA ROCHA MD PCP: HOWIE BAÑUELOS REPORT IS CONFIDENTIAL AND NOT TO BE RELEASED WITHOUT AUTHORIZATION
--- NOTE | 2019-05-08 14:30 | HP ---
[facility] [address], [place] [address] Signed ADMISSION DATE: 05/06/2019 REASON FOR ADMISSION: Pelvic small bowel obstruction. HISTORY OF PRESENT ILLNESS: This 78-year-old white woman is known to me from the past having undergone surveillance colonoscopy. She has undergone a sigmoid resection more than 20 years ago for diverticular disease, but has always had left lower abdominal pain related to that. She presented to the emergency room with rather severe left lower abdominal and central pelvic abdominal pain and evaluated by Dr. Armstrong at approximately 10:20 p.m. last night. She had noted several days of abdominal pain and decreased bowel movements, pain worsening and ultimately becoming rather constant. Notably, she had a mid small bowel obstruction in 2018, managed by Dr. Adorno with nasogastric tube decompression, IV fluids and so forth, which resolved over time. Her evaluation by Dr. Armstrong included a urinalysis, which was essentially normal. White count elevation of 13.5, creatinine of 1.40. A CT scan was performed, which showed isolated dilated loops of small bowel in the left pelvis and lower abdomen considered either partial or early small bowel obstruction related to either internal hernia or adhesions. There is mild mesenteric edema. No pneumatosis. No free air. Additionally noted was prior cholecystectomy and normal kidneys. She was admitted and nasogastric tube was placed. She has had scant output from it really and she does feel somewhat better. She describes a mysterious underlying diagnosis of "breast cancer" that began as abnormal findings on upper endoscopy. Upon reviewing with personnel at the [facility], some notes were made available showing a biopsy of the stomach showing gastric adenocarcinoma. Multiple referrals ultimately culminated in consultation with Dr. Gonzalez and others, for which tamoxifen is now given as an adjunct medication for her problem. There was no breast cancer noted and mammograms have been negative. She has never had breast biopsy in relation to this issue. Biopsies as noted on upper endoscopy showed "infiltrating signet ring gastric adenocarcinoma" in the background of mild inactive chronic gastritis, also negative for H. pylori. This noted in December of 2018. It is noted on the CT scan performed that there was no sign of gastric dilatation and gastric wall thickening was not particularly appreciated. Electronically Signed By: YOVANA ROCHA MD 05/08/19 1430 PATIENT NAME: HOWIE GOMEZ HISTORY AND PHYSICAL DATE OF : 36 REPORT #: [id number] PHYSICIAN: YOVANA ROCHA MD PCP: HOWIE BAÑUELOS REPORT IS CONFIDENTIAL AND NOT TO BE RELEASED WITHOUT AUTHORIZATION [facility] [address] [place] [id number] Signed At present, the patient feels low-grade abdominal pain in the left lower and mid suprapubic area. She has had no nausea or vomiting since placement of nasogastric tube. The patient's current medication list includes albuterol inhaler 2 puffs q.4 to 6 hours for shortness of breath, alprazolam 0.25 mg p.o. t.i.d. as needed for anxiety, vitamin C 500 mg p.o. daily, calcium supplement with vitamin D3, vitamin C 500 mg daily, doxepin 75 mg at bedtime, duloxetine (Cymbalta) 60 mg p.o. daily, fluticasone Advair Diskus 1 each inhaler b.i.d., probiotic one tab daily, Synthroid 112 mcg daily, oxycodone one to two 5 mg tablets as needed for pain, tamoxifen 20 mg p.o. daily, Nasacort 1 spray each nostril daily, and vitamin B complex. REVIEW OF SYSTEMS: She denies any dysphagia or shortness of breath. She has had no hematemesis or blood per rectum. Denies dysuria. SOCIAL HISTORY: The patient is . Her has developed significant dementia. The patient sees KAY Douglass, for primary care. Her sees now Dr. Gomez. He formally saw Dr. Cabello. PHYSICAL EXAMINATION: GENERAL: This is a pleasant white woman, who does not look systemically toxic. VITAL SIGNS: Current vital signs show temperature 98.1, pulse 79, respirations 16, blood pressure 145/71, pulse oximetry 92% on room air. HEENT: Mucous membranes are reasonably moist. She has a nasogastric tube in place. There is some clear biliary fluid noted in the suction container. Trachea is midline. CHEST: Clear bilaterally. HEART: Regular. I detect no murmur. ABDOMEN: Broad and scaphoid and nondistended. There is a midline incision. She has no significant focal tenderness at this time. Mild diffuse tenderness in the lower abdomen. EXTREMITIES: Show no clubbing, cyanosis, or edema. She does not currently have sequential compression device stockings in place just yet. LABORATORY STUDIES: Showed a white count of 13.5, hematocrit 40.6, platelets 202,000. Chem profile showed elevated creatinine of 1.40, glucose 168, magnesium 2.0, potassium 4.3. Liver enzymes normal. Lipase 27. Urinalysis essentially normal. Specific gravity 1.016, white cells 5 per high-powered field, squames 2+. Imaging report as previously noted showed initial chest x-ray with nasogastric tube at GE junction, recommendation for advancement. The abdominal CT and pelvic CT show isolated dilated loops of ileum in the left pelvis and lower abdomen, questioning partial or early small bowel obstruction related to internal Electronically Signed By: YOVANA ROCHA MD 05/08/19 6032 PATIENT NAME: HOWIE GOMEZ HISTORY AND PHYSICAL DATE OF : 36 REPORT #: [id number] PHYSICIAN: YOVANA ROCHA MD PCP: HOWIE BAÑUELOS REPORT IS CONFIDENTIAL AND NOT TO BE RELEASED WITHOUT AUTHORIZATION [facility] [address], [place] [address] Signed hernia or adhesion. Note was made of prior cholecystectomy. Stomach and bowel loops were considered decompressed. ASSESSMENT: The patient has what appears to be distal small-bowel obstruction in the pelvis. She has had multiple operations in that area related to diverticular disease including sigmoid resection and possibly other interventions. She carries mysterious diagnosis of adenocarcinoma of the stomach with consideration for linitis plastica, for which ultimately tamoxifen was initiated as a palliative measure. Likely, there were receptors within tumor cells indicating a benefit from such an endeavor. She has not had gastric resection and she certainly has not had diagnosis of breast cancer proper. I have reviewed the CT scan in detail with the radiologist. There does appear to be a loop of bowel in the low pelvis that may well be related to adhesion or internal herniation for which operative management would be preferable. Additionally, however, if she does have in fact gastric adenocarcinoma, it is a rather classic and typical presentation of drop metastases to the pelvis that can cause obstructive symptoms either with a Blumer's shelf as regard to colonic obstruction or metastatic disease causing tethering of bowel loops causing obstruction in that manner. Although continued nasogastric tube decompression would be expected to be possibly beneficial for bowel obstruction as it was previously for mid bowel obstruction and without signs of internal herniation. It is likely necessary that operative intervention be undertaken in her situation. The risks of bleeding, infection, failure to cure the problem, and particularly possible need for bowel resection or bypass depending on operative findings was reviewed in detail. I had anticipated, discussed with her daughter, Nella Frias at [phone] further these findings. Her is essentially dysfunctional as regard to his dementia and the patient provides his general care. Her daughter is usually present at most of her medical interventions and will be helpful in defining patient and family expectations and goals. MD DENI Tovar/MODL /[id number] Electronically Signed By: YOVANA ROCHA MD 05/08/19 1430 PATIENT NAME: HOWIE GOMEZ HISTORY AND PHYSICAL DATE OF : 36 REPORT #: [id number] PHYSICIAN: YOVANA ROCHA MD PCP: HOWIE BAÑUELOS REPORT IS CONFIDENTIAL AND NOT TO BE RELEASED WITHOUT AUTHORIZATION [address] [address] Signed cc: MD Howie King PA Copies: AKUA GONZALEZ MD, LINDA PA ~ Electronically Signed By: YOVANA ROCHA MD 05/08/19 1430 PATIENT NAME: HOWIE GOMEZ HISTORY AND PHYSICAL DATE OF : 36 REPORT #: [id number] PHYSICIAN: YOVANA ROCHA MD PCP: HOWIE BAÑUELOS REPORT IS CONFIDENTIAL AND NOT TO BE RELEASED WITHOUT AUTHORIZATION
--- NOTE | 2019-05-08 16:51 | NUR ---
PT RESTING SOUNDLY NG TUBE AND FIGUEROA DC'D
--- NOTE | 2019-05-08 17:59 | NUR ---
PATIENT HAS BEEN RESTING AND SITTING UP VISITING WITH FAMILY MOST OF THE EVENING. PATIENT CURRENTLY SITTING UP IN BED, WATCHING TV. CALL LIGHT IN REACH. NO OTHER NEEDS AT THIS TIME.
--- NOTE | 2019-05-08 19:17 | NUR ---
SHIFT REPORT RECIEVED FROM MARCELINO MEREDITH. PT AWAKE IN ROOM, WATCHING TV. PAIN 3/10 IN LOWER ABD. PT DENIES NEED FOR FURTHER PAIN MANAGEMENT. NO OTHER NEEDS. CALL LIGHT IN REACH.
--- NOTE | 2019-05-08 19:59 | NUR ---
PT CALLED FROM RESTROOM FOR ASSISTANCE BACK TO BED. SHE STATES SHE FEELS SO MUCH BETTER AFTER HAVING THE NG TUBE REMOVED. SHE DENIES FURTHER NEEDS AT THIS TIME CALL LIGHT IS WITHIN REACH.
--- NOTE | 2019-05-08 20:23 | NUR ---
HELPED PT INTO THE BATHROOM. SHE WILL CALL WHEN SHE IS DONE.
--- NOTE | 2019-05-08 21:14 | NUR ---
PT ASSESSMENT, VS AND I&O COMPLETED. INCISIONS DRY AND WNL. TONI CDI, WNL. IV CDI, WNL, FLUSHED WELL. WARM BLANKET PROVIDED. NO OTHER NEEDS. CALL LIGHT IN REACH.
--- NOTE | 2019-05-08 23:08 | NUR ---
PT CALLS TO USE BR. UPT TO BR AND BACK TO BED. NO OTHER NEDDS. CALL LIGHT IN REACH.
--- NOTE | 2019-05-08 23:29 | NUR ---
HELPED PT TO THE BATHROOM AND BACK TO BED . SCD'S PUT BACK ON . BEDSIDE TABLE AND CALL LIGHT IN REACH. PT NEEDS NOTHING MORE AT THIS TIME.
--- NOTE | 2019-05-09 01:03 | NUR ---
HELPED PT TO THE BATHROOM AND BACK TO BED. GOT HER A WARM PACK FOR HER BED. BEDSIDE TABLE AND CALL LIGHT IN REACH. PT NEEDS NOTHING MORE AT THIS TIMEL.
--- NOTE | 2019-05-09 01:23 | NUR ---
PT RESTING IN BED, EYES CLOSED. RR 16, EVEN, UNLABORED. CALL LIGHT IN REACH.
--- NOTE | 2019-05-09 02:56 | NUR ---
PT UP TO BR. WARM PACK PROVIDED FOR NECK. ASSESSMENT COMPLETED. INCISIONS WNL.NO OTHER NEEDS. CALL LIGHT IN REACH.
--- NOTE | 2019-05-09 04:26 | NUR ---
HELPED PT TO THE BATHROOM AND BACK TO BED. POSITIONED HER IN BED TO HER COMFORT. BEDSIDE TABLE AND CALL LIGHT IN REACH. PT NEEDS NOTHING MORE AT THIS TIME.
--- NOTE | 2019-05-09 04:47 | NUR ---
PT HAS SLEPT OFF AND ON THIS SHIFT. PAIN HAS BEEN 3/10 IN ABD, PT HAS NOT WANTED MEDS FOR PAIN. PT COMPLAINS OF NECK PAIN, MANAGED WITH WARM PACKS. INCISIONS ARE WNL. SMALL AMOUNT OF RED DRAINAGE TO BANDAGES. TONI WNL. IV CDI, WNL. PT TOLERATED NPOS STATUS, SCDs AND IV WELL.
--- NOTE | 2019-05-09 05:57 | NUR ---
VS AND I&O COMPLETED. NEW BAG IV FLUIDS PROVIDED. PAIN 7/10 IN NECK AND LOWER ABD, PRN PAIN MED PROVIDED. TONI DRAINED. TONI SITE DRESSING CHANGED. PT UP TO RECLINER. WARM PACK PROVIDED FOR NECK. WASH CLOTH PROVIDED FOR FACE. NO OTHER NEEDS. CALL LIGHT IN REACH.
--- NOTE | 2019-05-09 06:02 | NUR ---
PT HAS SLEPT OFF AND ON THIS SHIFT. PAIN HAS BEEN MANAGED WITH PRN PAIN MED AND WARM PACKS. PT COMPLAINS OF NECK PAIN, MANAGED WITH WARM PACKS. INCISIONS ARE WNL. SMALL AMOUNT OF RED DRAINAGE TO BANDAGES. TONI WNL. IV CDI, WNL. PT TOLERATED NPOS STATUS, SCDs AND IV WELL.
--- NOTE | 2019-05-09 06:29 | NUR ---
PT CALLS TO HAVE NURSE CHECK IF THE IV PUMP IS PLUGGED IN WHILE SHE IS IN THE CHAIR. PUMP IS PLUGGED IN AND WORKING PROPERLY. NO OTHER NEEDS, CALL LIGHT IN REACH.
--- NOTE | 2019-05-09 07:35 | NUR ---
BEDSIDE REPORT RECEIVED PT SITTING IN CHAIR SBA BACK TO BED PT STATES SHE DOESN'T FEEL WELL, NON-SPECIFIC COMPLAINT STATES SHE JUST WA TS TO SAY DOWN FOR A BIT. REFUSES SCD'S STATES SHE WILL WALK A LOT TODAY AND HAS BEEN UP AND DOWN MUCH OF THE NIGHT
--- NOTE | 2019-05-09 07:51 | NUR ---
PATIENT RESTING IN BED, EYES CLOSED. PATIENT STATES SHE DID NOT SLEEP WELL BECAUSE SHE KEPT HAVING TO GET UP TO GO TO THE BATHROOM. PATIENT PERFORMED AM CARE. PATIENT STATES SHE WOULD LIKE TO SHOWER LATER TODAY, CALL LIGHT IN REACH. NO OTHER NEEDS AT THIS TIME.
--- NOTE | 2019-05-09 08:59 | NUR ---
PT CONTINUES RESTING IN BED APPEARS CHEERFUL AND TALKATIVE. REQUESTING NORMAL DAILY MEDS THAT ARE NOT YET SCHEDULED. ENCOURAGED PT TO SPEAK TO DR ROCHA ABOUT RESTARTING THESE MEDICATIONS WHEN HE COMES IN. PT AGREES TO WORK TOWARD GOAL OF WALKING SEVERAL TIMES TODAY. SHE CONTINUES TO TOLERATE SIPS OF CLEAR LIQUIDS. DENIES PAIN THOUGH SHE DESCRIBES "KNOWING THERE IS SOMETHING THERE" DENIES NEED OF INTERVENTION AT THIS TIME.
--- NOTE | 2019-05-09 10:51 | NUR ---
PT UP AMBULATES 2 FULL LAPS IN THE PURDY WELL TOLERATED. SHE REPORTS PASSING GAS NO LIQUID STOOL TODAY. NO NAUSEA OR OTHER DISCOMFORTS
--- NOTE | 2019-05-09 11:23 | NUR ---
PATIENT AMBULATED HALLWAY AND TOOK A SHOWER. PATIENT BACK IN BED WAITING FOR RN TO CHECK DRESSING. CALL LIGHT IN REACH. NO OTHER NEEDS AT THIS TIME.
--- NOTE | 2019-05-09 13:59 | NUR ---
DR ROCHA IN TO SEE PT NEW ORDERS WRITTEN. PT VISITING WITH FAMILY AT THIS TIME. JELLO PROVIDED AND WELL TOLERATED. HOME MEDS ORDERED PER PT REQUEST
--- NOTE | 2019-05-09 14:13 | NUR ---
PATIENT RESTING IN BED. FAMILY IN ROOM. VITAL SIGNS AND I&O DONE. CALL LIGHT WITHIN REACH. NO OTHER NEEDS AT THIS TIME
--- NOTE | 2019-05-09 15:55 | NUR ---
DR ROCHA IN TO SEE PT FOOD ORDERS ADVANCED PT TOLERATES CLEARS EATING JELLO, TEA, AND WATER NO C/O PAIN OR NAUSEA. UP IN THE ROOM SEVERAL TIMES RESTING IN BED AT THIS TIME PRESENT
--- NOTE | 2019-05-09 18:00 | NUR ---
PT HAS MASHED POTATOES AND GRAVY FOR EVENING MEAL, ALONG WITH PUDDING TOLERATES THIS WELL WITH NO C/O NAUSEA OR PAIN
--- NOTE | 2019-05-09 18:04 | NUR ---
PATIENT RESTING IN BED. VITAL SIGNS AND I&O DONE. CALL LIGHT WITHIN REACH. NO OTHER NEEDS AT THIS TIME
--- NOTE | 2019-05-09 18:55 | NUR ---
RECEIVED REPORT FROM VIRI BENSON. pt RESTING IN BED. NO REQUESTS AT THIS TIME. DISCUSSED PLAN OF CARE. WHITEBOARD UPDATED. CALL LIGHT WITHIN REACH.
--- NOTE | 2019-05-09 19:45 | NUR ---
ROUNDED CHARGE PATIENT IS RESTING IN BED CISITING WITH FAMILY AND FRIENDS. PATIENT HAS CONCERNS OF PAIN. PATIENT STATED "MY RN IS COMING AT 9PM WITH MY PAIN MEDICATION" PATIENT PROVIDED WITH WARM PACK. PATIENTS FAMILY PROVIDED WITH DRINKS. NO FURTHER NEEDS NOTED. PATIENT AND FAMMILY DENY ANY COMMENTS, QUESTIONS, OR CONCERNS.
--- NOTE | 2019-05-09 21:04 | NUR ---
VITALS AND I&OS DONE AND CHARTED. GARBAGES EMPTIED. FRESH ICE WATER GIVEN. BEDSIDE TABLE AND CALL LIGHT IN REACH. PT NEEDS NOTHING MORE AT THIS TIME.
--- NOTE | 2019-05-09 21:10 | NUR ---
ASSESSMENT DONE. pt REQUESTED PRN PAIN MEDS FOR NECK PAIN 06/21. VISITOR AT [facility]. NO FURTHER REQUESTS AT THIS TIME. MIDLINE INCISION DRESSING CDI. TONI DRAINING SCANT AMOUNT. CALL LIGHT WITHIN REACH.
--- NOTE | 2019-05-09 21:49 | NUR ---
PT CALLED TO GET HER DOOR SHUT. I WENT DOWN TO SHUT IT AND IT WAS ALREADY SHUT.
--- NOTE | 2019-05-09 21:52 | NUR ---
HELPED PT TO THE BATHROOM AND BACK TO BED WITH HER CANE. SCD'S PUT BACK ON . BEDSIDE TABLE AND CALL LIGHT IN REACH.
--- NOTE | 2019-05-09 22:14 | NUR ---
ROUNDED ON pt. RESTING WITH EYES CLOSED, RESPIRATIONS REGULAR AND UNLABORED. CALL LIGHT WITHIN REACH.
--- NOTE | 2019-05-09 23:01 | NUR ---
CALL LIGHT ON. pt UP TO TOILET AND BACK TO BED. REPORTED "I HAD A REALLY BAD DREAM." SMALL LIGHT ON FOR COMFORT. NO FURTHER REQUESTS AT THIS TIME. CALL LIGHT WITHIN REACH.
--- NOTE | 2019-05-10 01:50 | NUR ---
HELPED PT BACK TO BED FROM THE BATHROOM WITH HER CANE. SCD'S PLUGGED BACK IN. BEDSIDE TABLE AND CALL LIGHT IN REACH.
--- NOTE | 2019-05-10 02:00 | NUR ---
pt GETTING BACK IN BED. ASSESSMENT DONE. NO NEW DRAINAGE NOTED ON MIDLINE DRESSING, CDI. TONI SCANT DRAINAGE. NO REQUESTS AT THIS TIME. CALL LIGHT WITHIN REACH.
--- NOTE | 2019-05-10 03:30 | NUR ---
CALL LIGHT ON. VIRI ANDRADE TO ROOM TO ASSIST pt.
--- NOTE | 2019-05-10 05:19 | NUR ---
HELPED PT BACK FROM THE BATHROOM TO HER CHAIR WITH HER CANE. VITALS AND I&OS DONE AND CHARTED. GARBAGES EMPTIED. BEDSIDE TABLE AND CALL LIGHT NEXT TO HER IN THE CHAIR. SHE NEEDS NOTHING MORE AT THIS TIME WHEN ASKED.
--- NOTE | 2019-05-10 05:40 | NUR ---
THYROID MED GIVEN AT TIME pt NORMALLY TAKES AT HOME (SEE MAR). SITTING IN CHAIR. NO REQUESTS AT THIS TIME. CALL LIGHT WITHIN REACH.
--- NOTE | 2019-05-10 07:55 | NUR ---
CALL LIGHT ANSWERED. PATIENT RESTING IN BED. PATIENT GOES TO USE THE BATHROOM. ONE PERSON ASSISTING. LINENS CHANGED. PATIENT BACKS TO BED. PATIENT REFUSED TO TAKE A SHOWER TODAY BECAUSE SHE SAYS THAT SHE TOOK A SHOWER YESTERDAY. CALL LIGHT WITHIN REACH. NO OTHER NEEDS AT THIS TIME
--- NOTE | 2019-05-10 09:00 | NUR ---
PT UP EARLY THIS MORNING, STATES SHE IS HUNGRY TODAY, DENIES ANY PAIN, CALL LIGHT IN EASY REACH.
--- NOTE | 2019-05-10 09:46 | NUR ---
PATIENT RESTING IN BED. VITAL SIGNS AND I&O DONE. CALL LIGHT WITHIN REACH. NO OTHER NEEDS AT THIS TIME
--- NOTE | 2019-05-10 13:02 | NUR ---
PATIENT RESTING IN BED. IN ROOM. VITAL SIGNS AND I&O DONE. CALL LIGHT WITHIN REACH. NO OTHER NEEDS AT THIS TIME
--- NOTE | 2019-05-10 14:38 | NUR ---
AMBULATED LOOP AROUND NURSES STATION X2 WITH SBA USING HER CANE. IN GOOD SPIRITS, JACOBY JUST GOT HERE TO VISIT.
--- NOTE | 2019-05-10 16:03 | NUR ---
TALKED WITH PT REGARDING HER SURGERY AND ALL. PT ABLE TO REPEAT BACK COUGHING AND DEEP BREATHING MEDTHODS, CARE OF WOUND AFTER SHE GOES HOME. DIET PT STATES SHE IS NOT SURE OF SHE LIKES SALADS AND FRUITS AND NOW SHE HAS TO BE LO FIBER. STATES SHE WOULD REALLY LIKE TO TALK WITH MANAGER EDITORIAL. I TALKED WITH STEWART MEREDITH AND MESSAGE LEFT FOR GERA MANAGER EDITORIAL. PT STATES GOOD UNDERSTANDING OF HER SURGICAL PROCESS AND THE SBO. SHE ALSO TALKS FREELY ABOUT THE CHEMO SHE IS GETTING FOR HER BREAST CANCER.
--- NOTE | 2019-05-10 16:36 | NUR ---
Discussed plan for dc with Ashly. Spouse is in room and she whispers, "He has dementia." She plans on discharging when improved to home with help from daughter. [employer] brochure given for paid help. She states can vacume and do laundry. Denies further needs at home.
--- NOTE | 2019-05-10 16:49 | NUR ---
EDUCATION FOR LOW FIBER DIET REVIEWED WITH PT, HELPED HER LOOK AND MENU AND ORDER APPROP.
--- NOTE | 2019-05-10 17:21 | NUR ---
PT HAS HAD A GOOD DAY, AMBULATED LOOP AROUND NURSES STATION, DIET ADVANCED TO LOW FIBER, INDEP. NOW IN ROOM. MID LINE INCISION WELL APPROX WITH STERI STRIPS, OLD DRAINAGE ON STRIPS. DENIES PAIN. BM TODAY. GOOD URINE OUTPUT.
--- NOTE | 2019-05-10 17:34 | NUR ---
PATIENT RESTING IN BED. VITAL SIGNS AND I&O DONE. CALL LIGHT WITHIN REACH. NO OTHER NEEDS AT THIS TIME
--- NOTE | 2019-05-10 20:13 | NUR ---
RECEIVED REPORT FROM DAY SHIFT RN. PATIENT UP TO AMBULATE IN HALLWAY W/CANE. PATIENT COMPLETED X1 LAP. PATIENT DENIES ANY PAIN OR SOB. PATIENT IS BACK IN BED RESTING. CALL LIGHT IN REACH.
--- NOTE | 2019-05-10 21:05 | NUR ---
PATIENT ASSESEMENT COMPLETED. PATIENTS VITALS TAKEN AND RECORDED. INTAKE AND OUPUT RECORDED. PATIENTS EVENING MEDICATIONS GIVEN PER ORDER. PATIENT GIVEN PRN TYLENOL PER REQUEST FOR 4/10 NECK PAIN. PATIENT ALSO GIVEN PRN ANXIETY MEDICATION PER PATIENT REQUEST. PATIENT DENIES ANY ABD PAIN ONLY DISOMFORT WITH ABD MUSCLE USE. PATIENT DENIES ANY FURTHE NEEDS. CALL LIGHT IN REACH.
--- NOTE | 2019-05-10 23:23 | NUR ---
PATIENT IS RESTING IN BED WITH EYES CLOSED, RR 17. CALL LIGHT IN REACH.
--- NOTE | 2019-05-11 00:27 | NUR ---
PATIENT IS RESTING IN BED WITH EYES CLOSED, RR 16. CALL LIGHT IN REACH.
--- NOTE | 2019-05-11 02:08 | NUR ---
PATIENT IS RESTING IN BED WITH EYES CLOSED, RR 17. CALL LIGHT IN REACH.
--- NOTE | 2019-05-11 03:50 | NUR ---
PATIENT IS RESTING IN BED WITH EYES CLOSED, RR 17. CALL LIGHT IN REACH.
--- NOTE | 2019-05-11 04:34 | NUR ---
PATIENT RESTED WELL THROUGHOUT THE SHIFT. PATIENT IS ON A LOW FIBER DIET, TOLERATING WELL, AND NO COMPLAINTS OF NAUSEA NOTED. PATIENT IS A SBA W/CANE AND TO BR. PATIENT AMBULATED X1 LAP IN THE HALLWAY. SARABJIT IS IN RA. PATIENT REFUSED SCDS. PATIENT IS SL AND IV FLUSHES WELL. PATIENT RECEIVED PRN TYENOL FOR NECK PAIN. PATIENT HAS MID LINE ABD SURGICAL INCISION, STERI STRIPS PRESENT, AND SITE IS WELL APPROXIMATED AND C/D/I. PATIENT HAS DENIED ABD PAIN ONLY MILD DISCOMFORT WITH MOVEMENT. PATIENT HAS DENIED ANY NAUSEA.
--- NOTE | 2019-05-11 06:10 | NUR ---
PATIENTS VITALS TAKEN AND RECORDED. INTAKE AND OUTPUT RECORDED. PATIENTS MORNING MEDICATIONS GIVNE PER ORDER. NO FURTHER NEEDS NOTED. CALL LIGHT IN REACH.
--- NOTE | 2019-05-11 07:44 | NUR ---
CALL LIGHT ANSWERED. PATIENT SITTING UP IN BED. PATIENT ASKS FOR WIPES, CLEAN GOWN AND SOCKS. WIPES, GOWN AND SOCKS PROVIDED. PATIENT DID HER BEDBATH. CALL LIGHT WITHIN REACH. NO OTHER NEEDS AT THIS TIME
--- NOTE | 2019-05-11 08:55 | NUR ---
PT IS IN GOOD SPIRITS THIS AM, SITTING UP IN RECLINER, ATE 100% OF BREAKFAST, STATES SHE SLEPT WELL LAST NIGHT. NO PAIN OR NAUSEA THIS AM. MIDLINE INCISION WITH STERI STRIPS, OLD DRAINAGE ON STRIPS UNCHANGED. ACTIVE BOWEL SOUNDS. CALL LIGHT IN EASY REACH.
--- NOTE | 2019-05-11 09:43 | NUR ---
PATIENT SITTING UP IN CHAIR. VITAL SIGNS AND I&O DONE. CALL LIGHT WITHIN REACH. NO OTHER NEEDS AT THIS TIME
--- NOTE | 2019-05-11 10:17 | NUR ---
PATIENT ON A LOW-FIBER DIET. SHE HAS QUESTIONS, SO A NUTRITION CONSULT WAS PLACED. SHE NORMALLY LIKES THE SALAD KITS FROM [employer], BUT THE DOCTOR TOLD HER SHE CAN'T HAVE THEM FOR A LITTLE WHILE DUE TO BEING RAW AND FIBROUS. I GAVE HER A HANDOUT ON LOW-FIBER WHICH SEEMED TO HELP EASE HER MIND. I MENTIONED THAT THIS ISN'T FOREVER, JUST FOR A LITTLE WHILE FOR HER GUT TO HEAL. SHE APPRECIATED THE INFO. MY NAME AND OFFICE # PROVIDED IN CASE QUESTIONS ARISE IN THE FUTURE.
--- NOTE | 2019-05-11 11:03 | NUR ---
In to speak with Ashly. She plans go home today. Stated my concern she will be caring for her spouse with dementia. 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 Daughter will check in and out and will cook for her. Pt plans on eating soup as she is on low fiber diet now.
--- NOTE | 2019-05-11 13:07 | NUR ---
PATIENT RESTING IN BED. VITAL SIGNS AND I&O DONE. CALL LIGHT WITHIN REACH. NO OTHER NEEDS AT THIS TIME
[2019-05-11] MEDS ORDERED: IBUPROFEN600 MG PO (13:24)
[2019-05-11] MEDS ORDERED: TYLENOL EXTRA500 MG PO (13:24)
--- NOTE | 2019-05-11 14:01 | NUR ---
DISCHARGE INSTRUCTIONS REVIEWED WITH PATIENT, VEBALIZES UNDERSTANDING OF MEDICATIONS AND FOLLOW UP APPOINTMENT, DENIES ANY QUESTIONS OR CONCERNS. EXCITED TO GO HOME. DAUGHTER WILL BE HERE IN ABOUT 20 MINUTES.
== END 2019-05-11 14:20 | disposition home or self-care (01) | DRG 336 ==
LOC: ED 22:16 → MS 22:18
PROVIDERS: ADMIT Surgery
PROC: 0WCG0ZZ Extirpation of Matter from Peritoneal Cavity, Open Approach (ICD-10-PCS; 2019-05-07)
PROC: 0DN80ZZ Release Small Intestine, Open Approach (ICD-10-PCS; principal; 2019-05-07 12:33)
DX: K56.50 Intestinal adhesions [bands], unspecified as to partial versus complete obstruction (principal); C78.89 Secondary malignant neoplasm of other digestive organs; C50.919 Malignant neoplasm of unspecified site of unspecified female breast; Z88.2 Allergy status to sulfonamides; Z79.51 Long term (current) use of inhaled steroids; Z79.810 Long term (current) use of selective estrogen receptor modulators (SERMs); Z79.899 Other long term (current) drug therapy
CPT/HCPCS: 00790; 36415; 71045; 74018; 74176; 80048; 80053; 81001; 83690; 83735; 85025; 87493; 93005; 93010; 94640; 96374; 99285-25; J0131; J0330; J0694; J1644; J1885; J2060; J2405; J2704; J3010; J3475; J7030; J7060; J7121

== ENCOUNTER 2019-06-25 09:13 | Emergency (ER) | payer MEDICARE, OTHER ==
[~2019-06-25] VITALS: Ht 175.3 cm; Wt 85.5 kg
[~2019-06-25 09:13] MED LIST changes: +IBUPROFEN600 MG PO; -OXYCODONE HCL5 MG PO; +PERCOCET 10-321 EACH PO; +TAMOXIFEN CITRA20 MG PO; +TYLENOL EXTRA500 MG PO; +ZESTRIL20 MG PO
--- OUTSIDE RECORDS SUMMARY | 2019-06-25 09:16 | XMS ---
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 [place] VISIT COUNT (12 MO.) 2 [facility] TOTAL 2 NOTE: Visits indicate total known visits. ED/UCC VISIT TRACKING (12 MO.) 06/25/2019 09:14 [facility] TYPE: Emergency COMPLAINT: - ABD PAIN 05/06/2019 22:17 [facility] TYPE: Emergency COMPLAINT: - VOMITING INPATIENT VISIT TRACKING (12 MO.) 05/07/2019 12:[address] 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 - Lng trm (crnt) use of slctv estrog receptor modulators - Intestnl adhesions, unsp as to partial versus complete obst - Other long term care social worker (current) drug therapy - Unsp intestnl obst, unsp as to partial versus complete obst - Allergy status to sulfonamides status - Secondary malignant neoplasm of other digestive organs - Allergy status to sulfonamides status - Malignant neoplasm of unsp site of unspecified female breast - Intestnl adhesions, unsp as to partial versus complete obst - Lng trm (crnt) use of slctv estrog receptor modulators - Secondary malignant neoplasm of other digestive organs [email or web address]
== END 2019-06-25 13:14 | disposition home or self-care (01) ==
LOC: ED 09:13
DX: K66.0 Peritoneal adhesions (postprocedural) (postinfection) (principal); R79.89 Other specified abnormal findings of blood chemistry; J44.9 Chronic obstructive pulmonary disease, unspecified; Z85.3 Personal history of malignant neoplasm of breast; I10 Essential (primary) hypertension; Z87.891 Personal history of nicotine dependence; Z88.2 Allergy status to sulfonamides; Z79.899 Other long term (current) drug therapy; Z79.891 Long term (current) use of opiate analgesic
CPT/HCPCS: 80053; 81001; 85025; 96361; 96374; 96375; 99284-25; J1170; J2405; J7030

== ENCOUNTER 2019-06-27 18:35 | Inpatient (IN) | payer MEDICARE, OTHER ==
[~2019-06-27] VITALS: Ht 175.3 cm; Wt 85.4 kg
--- OUTSIDE RECORDS SUMMARY | 2019-06-27 18:38 | XMS ---
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 [place] VISIT COUNT (12 MO.) [address] [place] [address] TOTAL 3 NOTE: Visits indicate total known visits. ED/UCC VISIT TRACKING (12 MO.) 06/27/2019 18:36 [facility] TYPE: Emergency COMPLAINT: - ABDOMINAL PAIN 06/25/2019 09:14 [facility] TYPE: Emergency COMPLAINT: - ABD PAIN 05/06/2019 22:17 [facility] TYPE: Emergency COMPLAINT: - VOMITING INPATIENT VISIT TRACKING (12 MO.) 05/07/2019 12:[address] 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
--- NOTE | 2019-06-27 22:14 | NUR ---
14F NGT PLACED TO RIGHT NARE WITHOUT DIFFICULTY USING UROJET. PT SVETLANA WELL. XR ORDERED PER PROTOCOL.
--- NOTE | 2019-06-27 22:26 | NUR ---
PT ADMITTED TO ROOM 119 FROM ED, A/O WITH STATED MEMORY LOSS. SHE STRUGGLES TO REMEMBER PRISON/SHORT TERM EVENTS. DID REMEMBER THIS RN, AND AUTOMOTIVE TIRE TESTING SUPERVISOR FROM A PREVIOUS ADMISSION. SBA OFF STRETCHER TO BATHROOM TO VOID, IS INCONT, WEARS INCONT PRODUCTS. HAS NG TUBE IN PLACE, AWAITING CHEST XRAY FOR TUBE PLACEMENT.
--- NOTE | 2019-06-27 22:52 | NUR ---
PT ADMITTED TO ROOM 119, VIA STRECHER. AMBULATED TO BR, VOIDED, BACK TO BED. NGT R ROXIE, WAITING FOR CHEST XR TO CONFIRM PLACEMENT. AWARE OF NPO STATUS. COOPERATIVE WITH ADMIT QUESTIONS AND ASSESSMENT. ORIENTED TO ROOM AND PROCEDURES. IVF INFUSING
--- NOTE | 2019-06-27 23:12 | NUR ---
RECEIVED A PHONE CALL FROM DR CHILDS, ED PHYSICIAN REGARDING THE CHEST XRAY, NG TUBE PLACEMENT. STATED IT WAS IN STOMACH, OK TO USE.
--- NOTE | 2019-06-27 23:21 | NUR ---
LUISR OBTAINED AND READ, OK TO START NGT TO YASIR
--- NOTE | 2019-06-28 00:01 | NUR ---
PT CALLED, NEEDED BATHROOM. SBA WITH EQUIPMENT, NOTE THE DRAINAGE IN NG TUBE IS YELLOW, THICK SECRETIONS. VOIDED, BRUSHED HER TEETH AND WASHED FACE. BACK TO BED, LIGHTS OFF. DENIED NEEDS.
--- NOTE | 2019-06-28 01:14 | NUR ---
Resting, NGT patent to ILWS, draining thick clear phlegm. no cough. tolerating well, turns self in bed NPO, does own mouth care, call light at bedside, IVF infusing
--- NOTE | 2019-06-28 02:25 | NUR ---
UP TO BR, VOIDED LARGE AMOUNT OF YELLOW URINE, BACK TO BED, TOLERATED WELL. NGT ON R NARE, PATENT, DRAINING THICK GREEN COLORED DRAINAGE SCANT AMOUNT. NPO, DOES OWN MOUTH CARE, HOB ELEVATED, IVF INFUSING, NO C/O PAIN OR N/V AT THIS TIME
--- NOTE | 2019-06-28 04:17 | NUR ---
UP TO BR, VOIDED, BACK TO BED, 1PA, TOLERATED WELL, NGT PATENT, DRAINING SCANT AMOUNT OF NOW YELLOW-ORANGE COLORED THICK DRAINAGE, ILWS. IVF INFUSING
--- NOTE | 2019-06-28 04:34 | NUR ---
NGT R NARE, PATENT, ILWS, DRAINING DARK YELLOW-ORANGE COLORED THICK SMALL AMOUNT OF DRAINAGE.HOB ELEVATED. DOES OWN MOUTH CARE. IVANA, TENDER ABD. UP TO BR WITH 1PA, SLIGHTLY WEAK GAIT, DECLINED TO USE WALKER. HAS VOIDED FREQUENT AND LARGE AMOUNT OF DARK YELLOW URINE. TOLERATD BACK TO BED WELL. NO C/O ABD PAIN OR N/V. IVF INFUSING.
--- NOTE | 2019-06-28 05:55 | NUR ---
PT CALLED TO USE BATHROOM. ASSIST WITH EQUIPMENT, NG CLAMPED, DENIES NAUSEA. COLOR OF DRAINAGE IS MUCH DARKER THAN ADMIT, GREEN-BROWN. BACK TO BED, CALL LIGHT WITHIN REACH.
--- NOTE | 2019-06-28 07:43 | NUR ---
DR SALAS IN TO SEE PT WRITES RX FOR ATIVAN. PT RESTING IN BED REQUESTS ATIVAN STATES SHE IS JUST CLIMBING THE CLEMENTS. DENIES PAIN.
--- NOTE | 2019-06-28 09:00 | NUR ---
PATIENT RESTING IN BED. RN IN ROOM. VITAL SIGNS AND I&O DONE. PATIENT REFUSED TO TAKE A SHOWER TODAY. CALL LIGHT WITHIN REACH. NO OTHER NEEDS AT THIS TIME
--- NOTE | 2019-06-28 09:15 | NUR ---
SPOKE WITH PATIENT IN ROOM. PATIENT STATES SHE LIVES WITH WHO HAS SOME DEMENTIA. SHE STATES IT IS A STRESS FOR HER BECAUSE HE IS HOME ALONE WITH THEIR CATS. SHE STATES SHE HAS SOME ADULT CHILDREN WHO ARE CHECKING ON HIM. SHE INTENDS TO RETURN HOME AT DISCHARGE. PATIENT USES A CANE TO AMBULATE. SHE STILL DRIVES, DOES NOT DRIVE ANYMORE. THEY HAVE NO STAIRS SHE NEEDS TO NAVIGATE. SHE DENIES WORRY ABOUT PAYING FOR MEDICATIONS, FOOD OR UTILITIES. SHE STATES SHE WOULD LIKE RESOURCES TO POSSIBLY HELP HER WITH BEING ABLE TO LEAVE AT HOME TO DO ERRANDS, ETC. IS A . THEY LIKELY HAVE TO HIGH INCOME FOR STATE HELP. DISCUSSED I CAN HAVE CHW CALL HER AFTER DISCHARGE TO GIVE HER IDEAS. SHE IS AGREEABLE TO THIS. REFERRAL MADE TO [facility].
--- NOTE | 2019-06-28 09:44 | NUR ---
PT AGREES ATIVAN WAS HELPFUL TO HER. SHE STATES SHE IS ABLE TO DOZE OFF AND ON AND FEELS MORE RELAXED. AGREES TO CALL FOR SBA OUT OF BED
--- NOTE | 2019-06-28 11:13 | NUR ---
PT RESTING EYES CLOSED
[2019-06-28] MEDS ORDERED: ZOFRAN8 MG PO (11:30)
--- NOTE | 2019-06-28 12:16 | NUR ---
MED REC COMPLETE
--- NOTE | 2019-06-28 13:11 | NUR ---
PATIENT USING THE BATHROOM. PATIENT BACKS TO BED. ONE PERSON ASSISTING. VITAL SIGNS AND I&O DONE. CALL LIGHT WITHIN REACH. NO OTHER NEEDS AT THIS TIME
--- NOTE | 2019-06-28 14:02 | NUR ---
PT C/O GENERALIZED BODY PAIN MEDICATED PER REQUEST
--- NOTE | 2019-06-28 17:05 | NUR ---
PATIENT RESTING IN BED. VITAL SIGNS AND I&O DONE. CALL LIGHT WITHIN REACH. NO OTHER NEEDS AT THIS TIME
--- NOTE | 2019-06-28 19:00 | NUR ---
BEDSIDE REPORT RECEIVED FROM VIRI BENSON. pt RESTING IN BED. NGT TO SUCTION. IVF INFUSING WNL ORDERED. CALL CENTER OPERATOR IN ROOM TO ASSIST TO RESTROOM.
--- NOTE | 2019-06-28 21:07 | NUR ---
CALL LIGHT ANSWERED. pt C/O 11/18 LOMAS, BACK PAIN. PRN MEDICATION ADMINSITERED. ASSESSMENT COMPLETE. NGT TO LOW INT SUCTION, FLUSHED WITH 30 MLS WATER. IVF INFUSING WNL ORDERED. BOWEL TONES ACTIVE X 4, ABD SOFT, TENDER LUQ. DENIES NAUSEA. CALL LIGHT IN REACH.
--- NOTE | 2019-06-28 22:00 | NUR ---
PT CALLED, NEEDED BATHROOM, SBA. UNSTEADINSS NOTED AMBULATING BACK TO BED, PREVIOUSLY MEDICATED, MOST LIKELY MEDICATION CAUSED. BACK TO BED, PT STATED SHE WANTED DOOR SHUT SO SHE COULD SLEEP. DURING CONVERSATOIN, PT FELL ASLEEP SEVERAL TIMES. DOOR SHUT, CALL LIGHT WITH REACH. NG TO LIWS, IV INFUSING PER ORDER
--- NOTE | 2019-06-28 23:52 | NUR ---
CHECKED ON pt. RESTING IN BED WITH EYES CLOSED. BREAHTHING UNLABORED, SNORING. NGT TO LOW INT SUCTION. IVF INFUSING WNL. CALL LIGHT IN REACH.
--- NOTE | 2019-06-29 03:38 | NUR ---
CALL LIGHT ANSWERED. pt PROVIDED WITH MOUTH SWAB. NGT TO LOW INT SUCTION WITH LIGHT BROWN DRAINAGE. NEW BAG IVF INFUSING WNL ORDERED. pt DENIES ANY PAIN AT THIS TIME. REQUESTING TO SLEEP AFTER NOTING TIME OF DAY. CALL LIGHT IN REACH.
--- NOTE | 2019-06-29 05:32 | NUR ---
pt UP IN CHAIR, DROWSY. DENIES NEED FOR PRN MEDICATION, STATES "I WAIT UNTIL I REALLY NEED IT, I ALWAYS HAVE PAIN." VSS. NGT TO LOW INT SUCTION. 300 ML BROWN DRAINAGE RECORDED, NO PREVIOUS DOCUMENTATION NOTED. DENIES ADDITIONAL NEEDS AT THIS TIME. IVF INFUSING WNL ORDERED. CALL LIGHT IN REACH.
--- NOTE | 2019-06-29 06:19 | NUR ---
CALL LIGHT ANSWERED. SBA BACK TO BED FROM RESTROOM. NGT TO LOW INT SUCTION. MEDIUM FORMED BOWEL MOVEMENT NOTED WITH VOID. pt DENIES PAIN. PRN ANXIETY MEDICATION ADMINISTERED REQUESTED. RADIO PROGRAM DIRECTOR IN ROOM. IVF INFUSING WNL. CALL LIGHT IN REACH.
--- NOTE | 2019-06-29 06:24 | CONS ---
[facility] [address], [place] [address] Signed DATE OF CONSULTATION: 06/28/2019 CHIEF COMPLAINT: Generalized abdominal pain. HISTORY OF PRESENT ILLNESS: Howie is an 78-year-old female who has had multiple abdominal surgeries over her life. She had a sigmoid resection for diverticular disease many years ago with Dr. Davis. She has also had a hysterectomy for cervical cancer many years ago. She has had her bladder suspended three times and she believes mesh was placed twice. Unknown to her memory, she has had a ventral hernia repair with mesh as well. In April of this year, she just had a limited laparotomy with small bowel resection to help for a small-bowel obstruction. Apparently, she has a hostile abdomen. She has been admitted overnight and placed under with an NG tube with mild bilious fluid. When she came to emergency room, her vital signs were fine. White count was normal. The CT scan showed dilated loops of bowel, apparently that have been present previously. PAST MEDICAL HISTORY: COPD, diverticulosis, metastatic breast cancer, fibromyalgia, hypertension, hypercholesterolemia, small bowel obstructions, and cervical cancer. PAST SURGICAL HISTORY: Includes her sigmoid colectomy, right knee replacement, small bowel resection in April 2012, cholecystectomy, hand surgery, left foot surgery, hysterectomy, ventral hernia repair with mesh and bladder suspension with mesh. SOCIAL HISTORY: She quit smoking years ago. She does not drink. Howie Rojo is her primary care provider. She prefers the [facility] pharmacy. Matthew is her . FAMILY HISTORY: Not reviewed today. REVIEW OF SYSTEMS: She had 10 systems reviewed and we covered mostly her abdominal surgeries. ALLERGIES: Sulfa. MEDICATIONS: Ibuprofen, Tylenol, doxepin, levothyroxine, oxycodone, Nasacort, Advair, alprazolam, lisinopril, Cymbalta, Ventolin, probiotic, fish oil, vitamin B, calcium, vitamin D, and tamoxifen. Electronically Signed By: KAM SALAS MD 06/29/19 0624 PATIENT NAME: HOWIE GOMEZ CONSULTATION DATE OF : 36 REPORT #: [id number] PHYSICIAN: KAM SALAS MD PCP: HOWIE ROJO REPORT IS CONFIDENTIAL AND NOT TO BE RELEASED WITHOUT AUTHORIZATION [facility] [address], [place] [address] Signed PHYSICAL EXAMINATION: VITAL SIGNS: Her blood pressure is 143/70, heart rate 78, respiratory rate 16, temperature is 98.5 degrees. She is 97% on room air. She is 5 feet 9 inches and 85 kg. GENERAL: Howie is an 78-year-old female, who is lying supine in her hospital bed. She is anxious and she did ask me about having Ativan. LUNGS: Clear to auscultation bilaterally. HEART: Regular rate and rhythm. ABDOMEN: Mildly distended, but it is soft and flat. There is no peritonitis. LABORATORY DATA: Her white blood cell count 6.5, hemoglobin 10.6, neutrophils 54, BUN 18, creatinine 1.0, albumin 3.2. Liver function tests are negative. Urinalysis negative. RADIOGRAPHIC STUDIES: Chest x-ray shows clear lungs and the NG tube in place. The CT scan shows the dilated loops of small bowel particularly in the pelvis. ASSESSMENT AND PLAN: Howie is an 78-year-old female, who returns with a recurrent small-bowel obstruction, just having a small-bowel resection in April 2019. At this point, she is on conservative treatment. She was asking me for Ativan for anxiety and that is certainly reasonable. She also asked me to contact her prior surgeon, Dr. Francisco. Apparently, I took care of her once while Dr. Francisco was in. Otherwise, she always requests Dr. Francisco, certainly give him a call here within next hour or so. In the meantime, we will continue her conservative treatment. Kam Salas MD [facility] /[id number] cc: KAY Douglass MD Copies: HOWIE ROJO Electronically Signed By: KAM SALAS MD 06/29/19 0624 PATIENT NAME: HOWIE GOMEZ CONSULTATION DATE OF : 36 REPORT #: [id number] PHYSICIAN: KAM SALAS MD PCP: HOWIE ROJO REPORT IS CONFIDENTIAL AND NOT TO BE RELEASED WITHOUT AUTHORIZATION [address] [address] Signed KAM SALAS MD ~ Electronically Signed By: KAM SALAS MD 06/29/19 0624 PATIENT NAME: HOWIE GOMEZ CONSULTATION DATE OF : 36 REPORT #: [id number] PHYSICIAN: KAM SALAS MD PCP: HOWIE ROJO REPORT IS CONFIDENTIAL AND NOT TO BE RELEASED WITHOUT AUTHORIZATION
--- NOTE | 2019-06-29 06:34 | NUR ---
MEDIUM FORMED BM THIS SHIFT. BOWEL TONES ACTIVE. NGT TO LOW INT SUCTION. 300 MLS OUT OF NGT DOCUMENTED, NO PREVIOUS DOCUMENTATION NOTED, GREENISH BROWN DRAINAGE. NPO. PRN ATIVAN FOR ANXIETY. PRN DILAUDID X 2 FOR BACK AND LOMAS PAIN. ABD TENDER LUQ W PALPATION. USING CALL LIGHT APPROPRIATELY.
--- NOTE | 2019-06-29 08:17 | NUR ---
PT RESTING IN BED DOSES OFF WHEN NOT ENGAGED IN CONVERSATION, AM ASSESSMENT COMPLETE, UPPER QUADRANTS X2 ACTIVE, LOWER QUANDRANTS X2 HYPOACTIVE. NGT REPOSITIONED FOR SKIN INTEGRITY AND COMFORT. PT REPORTS SHE DOES NOT WANT NAUSEA OR PAIN MEDICATIONS AT THIS TIME.
--- NOTE | 2019-06-29 10:48 | NUR ---
PT REPORTED FEELING VERY ANXIOUS, WORRIED ABOUT HER SPOUSE. 1MG ATIVAN IV PRN GIVEN. PT REPORTS NO PAIN OR NAUSEA.
--- NOTE | 2019-06-29 12:05 | NUR ---
PT REPORTS MILD NAUSEA, 8MG IV ZOFRAN GIVEN, NGT TO GRAVITY DRAIN AT THIS TIME. PT NOW UP IN HALLS AMBULATING WITH SPOUSE
--- NOTE | 2019-06-29 12:53 | NUR ---
pt up to bathroom, pt verbalizes she thinks she might have a bm
--- NOTE | 2019-06-29 12:59 | NUR ---
pt had small formed bm.
--- NOTE | 2019-06-29 14:45 | NUR ---
PT RESTING IN BED AFTER UP TO BATHROOM, SHE HAD SMALL HARD BM AFTER SUPPOSITORY. SHE WANTS TO REST NOW FOR AN HOUR THEN SHE IS WILLING TO WALK, THEN HAVE ENEMA. PT REPORTS SHE DOES NOT NEED PAIN MEDICATION AT THIS TIME.
--- NOTE | 2019-06-29 16:15 | NUR ---
PT REQUESTED ENEMA, GIVEN, PT HAD SMALL FORMED HARD BM. PT VOICED FEELING TIRED AND WANTING TO REST AFTER ASSISTED WITH FULL BATH IN BATHROOM, SHE THEN WILL WALK AGAIN IN AN HOUR.
--- NOTE | 2019-06-29 17:58 | NUR ---
PT UP IN THE BATHROOM AFTER HAVING TWO BM, NOW HAVING ANOTHER LARGE LOOSE BM.
--- NOTE | 2019-06-29 18:09 | NUR ---
PT HAS BEEN UP AMBULATING IN HALLS THIS SHIFT. HAS HAD SUPPOSITORY AND ENEMA, HAS ACTIVE BT X4, HAS DENIED NEEDED PAIN MEDICATION THIS SHIFT, SHE DID REQUEST ANXIETY MEDICATION ONCE AND AND ZOFRAN ONCE THIS AM. SHE IS NOW HAVING MULTIPLE LOOSE BM FOLLOWING VERY HARD FORMED SMALL STOOL EARLIER.
--- NOTE | 2019-06-29 18:23 | NUR ---
PT REQUEST PAIN MEDICATION AT THIS TIME FOR 7/10 PAIN AFTER BM. RESTING IN BED NOW ALERT AND ORIENTED.
--- NOTE | 2019-06-29 19:30 | NUR ---
BEDSIDE REPORT RECEIVED FROM VIRI WRAY. SBA TO RESTROOM FOR VOID AND BACK TO BED. pt DENIES PAIN. IVF INFUSING WNL ORDERED. NGT TO GRAVITY FIGUEROA. DENIES NAUSEA. CALL LIGHT IN REACH. NO ADDITIONAL REQUESTS.
--- NOTE | 2019-06-29 21:20 | NUR ---
pt ASSESSMENT COMPLETE. pt RESTING IN BED, "UNCOMFORTABLE". PRN ATIVAN ADMINISTERED REQUESTED. DENIES PAIN AT THIS TIME, "SOME BACK PAIN". IV FLUSHED, INFUSING WNL ORDERED. NGT TO GRAVITY SUCTION, NO DRAINAGE NOTED. CALL LIGHT IN REACH. NO REQUESTS AT THIS TIME.
--- NOTE | 2019-06-29 23:29 | NUR ---
CHECKED ON pt. RESTING IN BED WITH EYES CLOSED, SNORING. BREATHING UNLABORED.
--- NOTE | 2019-06-30 00:30 | NUR ---
IV PUMP ALARMING. IV NO LONGER PATENT, D/C'D WNL. NEW IV STARTED, pt TOLERATED WELL. SBA TO RESTROOM FOR VOID AND BACK TO BED. NGT TO GRAVITY FIGUEROA DRAIN IN PLACE. IVF INFUSING WNL. CALL LIGHT IN REACH. WARM BLANKETS PROVIDED.
--- NOTE | 2019-06-30 01:34 | NUR ---
CALL LIGHT ANSWERED. SBA TO RESTROOM FOR VOID, LARGE INCONTINENCE IN ATTENDS, ATTENDS AND GOWN CHANGED. BACK IN BED. pt C/O ANXIETY, PRN MEDICATION ADMINISTERED. IVF INFUSING WNL. ASSESSMENT COMPLETE. pt WITH DELIRIUM R/T TIME OF DAY. REORIENTATION PROVIDED. CALL LIGHT IN REACH.
--- NOTE | 2019-06-30 03:15 | NUR ---
CALL LIGHT ANSWERED. pt BACK IN BED AFTER VOID INDEPENDENTLY. BED ALARM PLACED. EDUCATION PROVIDED. pt VERBALIZES UNDERSTANDING TO USE CALL LIGHT STATES "I JUST FEEL LIKE A PEST CALLING SO MUCH". CALL LIGHT IN REACH. IVF INFUSING WNL ORDERED.
--- NOTE | 2019-06-30 05:17 | NUR ---
pt ANXIOUS THIS SHIFT. PRN ATIVAN ADMINISTERED IV. NGT TO GRAVITY DRAIN, pt TOLERATING WELL. NO C/O NAUSEA OR ABD PAIN. NPO. IVF INFUSING WNL NEW IV SITE RIGHT FOREARM. BOWEL TONES ACTIVE. NO BM NOTED THIS SHIFT. SOME INCONTINENCE IN ATTENDS. pt IMPULSIVE THIS SHIFT, OUT OF BED WITHOUT USING CALL LIGHT, BED ALARM IN USE. ORIENTED TO ALL, FORGETFUL TO TIME OF DAY UPON AWAKENING.
--- NOTE | 2019-06-30 05:57 | NUR ---
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 SCRATCHING AT NOSE, TAPE LOOSENING, NGT REINFORCED WITH TAPE. SBA TO RESTROOM FOR VOID, SMALL INCONTINENCE IN ATTENDS. VSS. BACK IN BED. IVF INFUSING WNL. BED ALARM ON.
--- NOTE | 2019-06-30 06:45 | NUR ---
NGT D/C'D PER ORDER BY SN JACKSON. pt TOLERATED WELL. PROVIDED WITH PO FLUIDS. INSTRUCTED TO START SLOWLY WITH PO INTAKE, VERBALIZES UNDERSTANDING. CALL LIGHT IN REACH. BED ALARM ON.
--- NOTE | 2019-06-30 07:25 | NUR ---
PT AWAKENS TO VOICE AT BEDSIDE REPORT RETURNS TO SLEEP SNORING SOFTLY. PT APPEARS COMFORTABLE BED ALARM IS SET
--- NOTE | 2019-06-30 07:59 | NUR ---
PATIENT SLEEPING. CALL LIGHT WITHIN REACH. BED ALAR ON.
--- NOTE | 2019-06-30 09:14 | NUR ---
PATIENT SITTING UP IN CHAIR. VITAL SIGNS AND I&O DONE. CALL LIGHT WITHIN REACH. NO OTHER NEEDS AT THIS TIME
--- NOTE | 2019-06-30 10:45 | NUR ---
Spoke with Ashly. She is ambulating in the lopez. States she is feeling well. Denies needs.
--- NOTE | 2019-06-30 11:01 | NUR ---
PT UP TO THE CHAIR FOR BREAKFAST EATS A SMALL AMOUNT TOLERATES THIS WELL. CONTINUES UP IN THE CHAIR AT THIS TIME, APPEARS MORE ALERT AND CLEAR THAN AT MORNING REPORT. PT WANTS TO RETURN HOME TODAY. SHE DENIES ANY ABDOMINAL PAIN
--- NOTE | 2019-06-30 14:06 | NUR ---
PATIENT SITTING UP IN CHAIR. IN ROOM. VITAL SIGNS AND I&O OBTAINED BY STUDENT RN.
--- NOTE | 2019-06-30 14:12 | NUR ---
PT HAS SPENT MOST OF THE DAY UP IN THE CHAIR WELL AMBULATING THE PURDY. NO C/O PAIN OR NAUSEA, TOLERATES BOTH BREAKFAST AND LUNCH WELL. PRESENT IN ROOM AT THIS TIME
--- NOTE | 2019-06-30 16:18 | NUR ---
PT RESTING SOUNDLY APPEARS COMFORTABLE
--- NOTE | 2019-06-30 17:50 | NUR ---
PATIENT SITTING UP IN CHAIR. VITAL SIGNS AND I&O DONE. CALL LIGHT WITHIN REACH. NO OTHER NEEDS AT THIS TIME
--- NOTE | 2019-06-30 18:15 | NUR ---
PT UP AND AMBULATES SEVERAL LAPS AROUND THE PURDY RETURNS TO THE CHAIR IN HER ROOM FOR EVENING MEAL. CALL LIGHT AND NEEDED ITEMS IN REACH.
--- NOTE | 2019-06-30 19:15 | NUR ---
BEDSIDE REPORT RECEIVED FROM VIRI BENSON. SBA FROM CHAIR TO BED. pt DENIES PAIN. IVF INFUSING WNL ORDERED. CALL LIGHT IN REACH. NO REQUESTS AT THIS TIME. TRAY TABLE CLEARED.
--- NOTE | 2019-06-30 21:26 | NUR ---
ROUNDED CHARGE. PATIENT IS RESTING IN BED. PATIENT DENIES ANY COMMENTS, QUESTIONS OR CONCERNS. NO NEEDS NOTED. CALL LIGHT IN REACH.
--- NOTE | 2019-06-30 21:40 | NUR ---
pt ASSESSMENT COMPLETE. pt DENIES PAIN AND NAUSEA. BOWEL TONES ACTIVE, ABD SOFT, NON-TENDER. TOLERATING FULL LIQUID DIET WELL. IV FLUSHED WNL, IVF INFUSING ORDERED. PRN ANXIETY MEDICATION ADMINISTERED REQUESTED. CALL LIGHT IN REACH. WARM BLANKET PROVIDED. LIGHTS OFF IN ROOM.
--- NOTE | 2019-06-30 23:09 | NUR ---
CHECKED ON pt. RESTING IN BED WITH EYES CLOSED, SNORING. IVF INFUSING ORDERED. CALL LIGHT NEXT TO pt.
--- NOTE | 2019-06-30 23:36 | NUR ---
CALL LIGHT ANSWERED. SBA TO RESTROOM FOR VOID AND BACK TO BED. DRIBBLING NOTED ON JENNIFER PAD, CHANGED. CALL LIGHT IN REACH. IVF INFUSING WNL ORDERED.
--- NOTE | 2019-07-01 02:00 | NUR ---
CALL LIGHT ANSWERED. SBA TO RESTROOM FOR VOID AND BACK TO BED. ATTENDS CHANGED D/T DRIBBLING. pt C/O 02/18 LOMAS. COOL CLOTH PROVIDED FOR FOREHEAD, PRN TYLENOL ADMINISTERED. ASSESSMENT COMPLETE. BOWEL TONES ACTIVE X 4, ABD SOFT. DENIES NAUSEA. CALL LIGHT IN REACH. IVF INFUSING WNL ORDERED.
--- NOTE | 2019-07-01 03:53 | NUR ---
CALL LIGHT ANSWERED. SBA TO RESTROOM. VERBALIZES UNDERSTANDING TO USE CALL LIGHT WHEN FINISHED.
--- NOTE | 2019-07-01 04:51 | NUR ---
pt TOLERATING FULL LIQUID DIET, NO NAUSEA OR ABDOMINAL PAIN REPORTED. BOWEL TONES ACTIVE. PRN PAIN MEDICATIONS FOR LOMAS. SBA TO RESTROOM FOR QS VOIDS. USING CALL LIGHT APPROPRIATELY. IVF INFUSING WNL ORDERED. PRN PO ANXIETY MEDICATION X 1.
--- NOTE | 2019-07-01 05:54 | NUR ---
CALL LIGHT ANSWERED. IV PUMP ALARMING, INFUSING WNL ORDERED. pt DENIES PAIN. VSS. DENIES TOILETING NEEDS. ICE WATER PROVIDED. CALL LIGHT IN REACH.
--- NOTE | 2019-07-01 07:33 | NUR ---
PATIENT LYING IN BED AWAKE. NO REPORTS OF PAIN. PATIENT STATES SHE IS ANXIOUS TO GET HOME TO CONTINUE CARING FOR HER WHO HAS DEMENTIA. RESPIRATIONS EQUAL AND UNLABORED ON RA. CALL LIGHT IN REACH.
--- NOTE | 2019-07-01 09:30 | NUR ---
PATIENT SITTING UP IN BED DRESSED IN PERSONAL CLOTHES. SATS 99% ON RA. RESPIRATIONS EQUAL AND UNLABORED. ADMINISTERED MEDICATIONS. PATIENT REPORTED 0/10 PAIN. REFUSED TYLENOL. 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 NURSE WILL FOLLOW UP AND PROVIDE CAREGIVER SUPPORT GROUP INFORMATION TO PATIENT. CALL LIGHT IN REACH.
[2019-07-01] MEDS ORDERED: MIRALAX119 GM PO (09:34)
[2019-07-01] MEDS ORDERED: CITRUCEL500 MG PO (09:36)
--- NOTE | 2019-07-02 07:08 | DS ---
[facility] [address], [place] [address] Signed ADMISSION DATE: 06/29/2019 DISCHARGE DATE: 07/01/2019 FINAL DIAGNOSES: 1. Small bowel obstruction. 2. Constipation. PROCEDURE: CT scan of abdomen and pelvis. HISTORY OF PRESENT ILLNESS: Ashly is an 78-year-old female, who actually looks younger than her stated age. She has had multiple abdominal surgeries including a previous sigmoid colectomy, cholecystectomy, hysterectomy, ventral hernia repair with mesh, and bladder suspension x3 with mesh and more recently small bowel resection in April [address] Francisco. She came to hospital with what appeared to be generalized abdominal pain and a small bowel obstruction on her CT scan. I had been asked to admit her as a general surgeon on-call. HOSPITAL COURSE: Ashly was admitted as above and treated with conservative measures. She had an NG tube in place with IV fluids. We did review her previous records and Dr. 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 If she would need surgery, she should consider a tertiary referral center. I had reviewed that with Ashly in detail each day. She is very aware of the scar tissue she has in the abdomen. Eventually, she did quite well and was passing gas. We did give her Dulcolax suppositories and Fleet's Phospho-Soda enemas and she had multiple large bowel movements for several days, lots of flatus and we were able to increase her diet. Her abdominal exam remained quite benign, it is soft, flat, nontender without any tympany or dullness to percussion. At this point, she has made marked improvement. Yesterday, we put her on a full liquid diet along with her chronic p.o. medications. She did quite well. At this point, we are going to be discharging her to home. DISCHARGE PLANS AND MEDICATIONS: She will be discharged home without any new prescriptions. She can resume her chronic medications. We have made no changes. She does use MiraLAX and Citrucel for her constipation. I spent quite some time with Ashly instructing her on MiraLAX and Citrucel dosing. She is more than welcome to increase her dosing as needed for her constipation. However, she must stay well hydrated if she is going to use MiraLAX and Citrucel, otherwise it will actually lead to constipation. She is welcome to follow regular diet at home. She can perform her usual activities of daily living including Electronically Signed By: KAM SALAS MD 07/02/19 0708 PATIENT NAME: ASHLY GOMEZ DISCHARGE SUMMARY DATE OF : 36 REPORT #: [id number] PHYSICIAN: KAM SALAS MD PCP: ASHLY BAÑUELOS REPORT IS CONFIDENTIAL AND NOT TO BE RELEASED WITHOUT AUTHORIZATION [address] [address] Signed walking up and down stairs and showering and bathing as usual. She can follow up my office as needed. She has been with Dr. Francisco for many years and she is welcome to follow up with him in his office as needed. She has expressed understanding and agrees to above plan. Kam Salas MD ALB/MODL /[id number] cc: MD Ashly Brown PA Copies: KAM SALAS MD, LINDA PA ~ Electronically Signed By: KAM SALAS MD 07/02/19 0708 PATIENT NAME: ASHLY GOMEZ DISCHARGE SUMMARY DATE OF : 36 REPORT #: [id number] PHYSICIAN: KAM SALAS MD PCP: ASHLY BAÑUELOS REPORT IS CONFIDENTIAL AND NOT TO BE RELEASED WITHOUT AUTHORIZATION
== END 2019-07-01 10:10 | disposition home or self-care (01) | DRG 389 ==
LOC: ED 18:35 → MS 18:37
PROVIDERS: ADMIT Colon & Rectal Surgery
DX: K56.609 Unspecified intestinal obstruction, unspecified as to partial versus complete obstruction (principal); C79.9 Secondary malignant neoplasm of unspecified site; K59.00 Constipation, unspecified; K57.90 Diverticulosis of intestine, part unspecified, without perforation or abscess without bleeding; J44.9 Chronic obstructive pulmonary disease, unspecified; C50.919 Malignant neoplasm of unspecified site of unspecified female breast; M79.7 Fibromyalgia; I10 Essential (primary) hypertension; E78.00 Pure hypercholesterolemia, unspecified; Z87.891 Personal history of nicotine dependence; Z88.2 Allergy status to sulfonamides; Z85.41 Personal history of malignant neoplasm of cervix uteri; Z79.1 Long term (current) use of non-steroidal anti-inflammatories (NSAID); Z79.891 Long term (current) use of opiate analgesic; Z79.51 Long term (current) use of inhaled steroids; Z79.899 Other long term (current) drug therapy
CPT/HCPCS: 36415; 71045; 74177; 80048; 80053; 81001; 83690; 83735; 84100; 85025; 96361; 99285-25; C9113; J1170; J1650; J2060; J2405; J3475; J7030; J7121

== ENCOUNTER 2019-09-12 19:30 | Inpatient (IN) | payer MEDICARE, OTHER ==
[~2019-09-12] VITALS: Ht 175.3 cm; Wt 73.0 kg
--- OUTSIDE RECORDS SUMMARY | ~2019-09-12 | XMS | Encounter Summary ---
Demographics + + + | Address | [address] | | | [place] [address] | + + + | Home Phone | | + + + | Preferred Language | Unknown | + + + | Marital Status | | + + + | Samaritan Affiliation | NRP | + + + | Race | White | + + + | Ethnic Group | Not or | + + + Author + + + | Author | [facility] | + + + | Organization | [facility] | + + + | Address | Unknown | + + + | Phone | Unavailable | + + + Support + + + + + | Name | Relationship | Address | Phone | + + + + + | Matthew Ramirez | CHRIS | [address] | | | | | [place] | | | | | [address] | | + + + + + | Nella Lowery ECON | Unknown | | + + + + + Care Team Providers + +------+ + | Care Certified Nurse Operating Room Name | Role | Phone | + +------+ + | Long Copeland MD | PCP | | + +------+ + Encounter Details +--------+ + + + + | Date | Type | Department | Care Team | Description | +--------+ + + + + | 09/04/ | Document-Sc | [facility] [address] | Cristel Galicia MD | | | 2019 | marv | [facility] | [address] | | | | | [address] [place], [place] | [place], [place] | | | | | [address] | [address] | | | | | | [phone] | | | | | | | | +--------+ + + + + Social History + +-------+ +--------+------+ | Tobacco Use | Types | Packs/Day | Years | Date | | | | | Used | | + +-------+ +--------+------+ | Never Smoker | | | | | + +-------+ +--------+------+ + +---+---+---+ | Smokeless Tobacco: | | | | | Never Used | | | | + +---+---+---+ + + +---------+ + | Alcohol Use | Drinks/Week | oz/Week | Comments | + + +---------+ + | Yes | | | 0-3/day- wine | + + +---------+ + + + + | Sex Assigned at [...] Not on filedocumented as of this encounter Procedures + +--------+ + + + | Procedure Name | Priori | Date/Time | Associated Diagnosis | Comments | | | ty | | | | + +--------+ + + + | OUTSIDE LAB - | | 01/13/2019 | | Results for this | | PATHOLOGY | | 12:00 AM | | procedure are in the | | | | PDT | | results section. | + +--------+ + + + documented in this encounter Results OUTSIDE LAB - PATHOLOGY (01/13/2019 12:00 AM PDT) + + + | Narrative | Performed At | + + + | | | + + + documented in this encounter Visit Diagnoses Not on filedocumented in this encounter"
--- OUTSIDE RECORDS SUMMARY | ~2019-09-12 | XMS | Encounter Summary ---
Demographics + + + | Address | [address] | | | [place] [address] | + + + | Home Phone | | + + + | Preferred Language | Unknown | + + + | Marital Status | | + + + | Restorationism Affiliation | NRP | + + + | Race | White | + + + | Ethnic Group | Not or | + + + Author + + + | Author | [facility] | + + + | Organization | [facility] | + + + | Address | Unknown | + + + | Phone | Unavailable | + + + Support + + + + + | Name | Relationship | Address | Phone | + + + + + | Matthew Ramirez | CHRIS | [address] | | | | | [place] | | | | | [address] | | + + + + + | Nella Haque | ECON | Unknown | | + + + + + Care Team Providers + +------+ + | Care Bleach Supervisor Name | Role | Phone | + +------+ + | Long Copeland MD | PCP | | + +------+ + Reason for Visit + + + | Reason | Comments | + + + | Tumor Board | | | Recommendation | | + + + Encounter Details +--------+ + + + + | Date | Type | Department | Care Team | Description | +--------+ + + + + | 03/04/ | Documentati | Surgical Oncology | Cristel Galicia MD | Tumor Board | | 2019 | on | at [facility] [address] | [address] | Recommendation | | | | Ave Mail Code: | [place], [place] | | | | | [facility] | [address] | | | | | and [place], | [phone] | | | | | [address] | | | | | | [place], [place] | | | | | | [address] | | | | | | [phone] | | | +--------+ + + + [...]
--- OUTSIDE RECORDS SUMMARY | ~2019-09-12 | XMS | Encounter Summary ---
Demographics + + + | Address | [address] | | | [place] [address] | + + + | Home Phone | | + + + | Preferred Language | Unknown | + + + | Marital Status | | + + + | Restorationist Affiliation | Unknown | + + + | Race | Unknown | + + + | Ethnic Group | Unknown | + + + Author + + + | Author | [facility] | | | and Nenoana | + + + | Organization | [facility] | | | and Nenoana [...] + | Matthew Ramirez | ECON | [address] | | | | | [place] | | | | | [address] | | + + + + + Care Team Providers + +------+ + | Care Sign Manufacturer Name | Role | Phone | + +------+ + | Ashly Rojo PA-C | PCP | | + +------+ + Reason for Referral Evaluate & Treat (Urgent) +--------+ + + + + + | Status | Reason | Specialty | Diagnoses / | Referred By | Referred To | | | | | Procedures | Contact | Contact | +--------+ + + + + + | Closed | Specialty | Oncology / | Diagnoses | Gayla | [facility] | | | Services | Pediatric | 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 | Oncology | | | Required | Oncology | adenocarcino | [address] | Clinic [address] | | | | [address] (HCC) | [address] | [place] | | | | | | [place] | [place], | | | | | | [address] | [place] [address] | | | | | | Phone: | Phone: | | | | | | [phone] | [phone] | | | | | | Fax: | Fax: | | | | | | [phone] | [phone] | +--------+ + + + + + Reason for Visit + + + | Reason | Comments | + + + | Advice Only | | + + + Evaluate & Treat (Urgent) +--------+ + + + + + | Status | Reason | Specialty | Diagnoses / | Referred By | Referred To | | | | | Procedures | Contact | Contact | +--------+ + + + + + | Closed | Specialty | Oncology / | Diagnoses | Gayla | [facility] | | | Services | Pediatric | 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 | Oncology | | | Required | Oncology | adenocarcino | [address] | Clinic [address] | | | | | [address] ([facility]) | [address] | [place] | | | | | | [place], [place] | [place], | | | | | | [address] | [place] [address] | | | | | | Phone: | Phone: | | | | | | [phone] | [phone] | | | | | | Fax: | Fax: | | | | | | [phone] | [phone] | +--------+ + + + + + Encounter Details +--------+ + + + + | Date | Type | Department | Care Team | Description | +--------+ + + + + | 01/05/ | Hospital | [facility] | Arpan, | Gastric | | 2019 | Encounter | [facility] | Luis Richards MD [address] | adenocarcinoma | | | | ONCOLOGY CLINIC [address] [place] | (HCC); Malignant | | | | [address] [place] | [place] [address] | neoplasm of | | | | [place] [address] | [phone] | overlapping sites of | | | | [phone] | | stomach (HCC) | +--------+ + + + + Social [...] Comments | + + +---------+ + | Never | | | | + + +---------+ + + + + + | Alcohol Habits | Answer | Date Recorded | + + + + | How often do you have a drink containing | Never | 11/17/2018 | | alcohol? | | | + + + + | How many drinks containing alcohol do you | Not asked | | | have on a typical day when you are | | | | drinking? | | | + + + + | How often do you have six or more drinks on | Not asked | | | one occasion? | | | + + + + + + + | Sex Assigned [...] + + + | Blood Pressure | 155/83 | 01/05/2019 1:41 PM | | | | | PDT | | + + + + + | Pulse | 88 | 01/05/2019 1:41 PM | | | | | PDT | | + + + + + | Temperature | 36.5 C (97.7 F) | 01/05/2019 1:41 PM | | | | | PDT | | + + + + + | Respiratory Rate | 16 | 01/05/2019 1:41 PM | | | | | PDT | | + + + + + | Oxygen Saturation | 95% | 01/05/2019 1:41 PM | | | | | PDT | | + + + + + | Inhaled Oxygen | - | - | | | Concentration | | | | + + + + + | Weight | 86.2 kg (190 lb 0.6 | 01/05/2019 1:41 PM | | | | oz) | PDT | | + + + + + | Height | 175.3 cm (5' 9.02") | 01/05/2019 1:41 PM | | | | | PDT | | + + + + + | Body Mass Index | 28.05 | 01/05/2019 1:41 PM | | | | | PDT | | + + + + + documented in this encounter Medications at Time of Discharge + + + +---------+ + + | Medication | Sig | Dispensed | Refills | Start | End Date | | | | | | Date | | + + + +---------+ + + | acetaminophen | Take 650 mg by mouth | | 0 | | | | (TYLENOL 8 HOUR | every 8 hours as | | | | | | ARTHRITIS PAIN) 650 | needed for Pain. | | | | | | MG CR tablet | | | | | | [...] + + + +---------+ + + | Cinnamon 500 MG | Take 500 mg by mouth | | 0 | | | | CAPS | Daily. | | | | | + + + +---------+ + + | DULoxetine | Take 60 mg by mouth | | 0 | 02/15/20 | | | (CYMBALTA) [address] | Daily. | | | 17 | | | capsule | | | | | | + + + +---------+ + + | fish oil 1,000 mg | Take 1,000 mg by | | 0 | | | | capsule | mouth Daily. | | | | | + + + +---------+ + + | levothyroxine | Take 112 mcg by | | 0 | 01/23/20 | | | (SYNTHROID, | mouth Daily. | | | 12 | | | LEVOTHROID) 112 mcg | | | | | | | tablet | | | | | | + + + +---------+ + + | lisinopril | Take 20 mg by mouth | | 0 | | | | (PRINIVIL, ZESTRIL) | Daily. | | | | | | 20 mg tablet | | | | | | [...] + + + +---------+ + + | fluticasone | fluticasone | | 0 | | | | (FLONASE) 50 | propionate 50 | | | | 9 | | mcg/nasal spray | mcg/actuation nasal | | | | | | | spray,suspension | | | | | | | current 2 sprays | | | | | | | each nostril every | | | | | | | evening | | | | | + + + +---------+ + + | | Advair Diskus 250 | | 0 | | | | fluticasone-salmeter | mcg-50 mcg/dose | | | | 9 | | ol (ADVAIR DISKUS) | powder for | | | | | | 250-50 mcg/puff | inhalation 1 puff in | | | | | | diskus inhaler | am 1 puff in PM if | | | | | | | needed | | | | | + + + +---------+ + + | folic acid | Take 800 mcg by | | 0 | | | | (FOLVITE) 800 MCG | mouth Daily. | | | | 9 | | tablet | | | | [...] + + + +---------+ + + | meloxicam (MOBIC) | Take 15 mg by mouth | | 0 | | | | 15 mg tablet | Daily. | | | | 9 [...] as of this encounter Plan of Treatment + + +--------+ + + | Name | Type | Priori | Associated Diagnoses | Order Schedule | | | | ty | | | + + +--------+ + + | AMB REFERRAL TO [facility] | Outpatient | Routin | Gastric | 1 Occurrences | | Medical Oncology | Referral | e | adenocarcinoma (HCC) | starting 01/05/2019 | | ([facility]) | | | | until 01/05/2019 | + + +--------+ + + documented as of this encounter Procedures + +--------+ + + + | Procedure Name | Priori | Date/Time | Associated Diagnosis | Comments | | | ty | | | | + +--------+ + + + | LABS - EXTERNAL SCAN | | 09/21/2018 | | Results for this | | | | 12:00 AM | | procedure are in the | | | | PDT | | results section. | + +--------+ + + + | IMAGING REPORT - | | 08/05/2018 | | Results for this | | EXTERNAL SCAN | | 12:00 AM | | procedure are in the | | | | PDT | | results section. | + +--------+ + + + | PATHOLOGY - EXTERNAL | | 01/26/2018 | | Results for this | | SCAN | | 12:00 AM | | procedure are in the | | | | PDT | | results section. | + +--------+ + + + | DIAGNOSTIC REPORT - | | 01/26/2018 | | Results for this | | EXTERNAL SCAN | | 12:00 AM | | procedure are in the | | | | PDT | | results section. | + +--------+ + + + | IMAGING REPORT - | | 10/21/2017 | | Results for this | | EXTERNAL SCAN | | 12:00 AM | | procedure are in the | | | | PDT | | results section. | + +--------+ + + + documented in this encounter Results LABS - EXTERNAL SCAN (09/21/2018 12:00 AM PDT) + + + | Narrative | Performed At | + + + | Ordered by an | | | unspecified provider. | | + + + IMAGING REPORT - EXTERNAL SCAN (08/05/2018 12:00 AM PDT) + + + | Narrative | Performed At | + + + | Ordered by an | | | unspecified provider. | | + + + DIAGNOSTIC REPORT - EXTERNAL SCAN (01/26/2018 12:00 AM PDT) + + + | Narrative | Performed At | + + + | Ordered by an | | | unspecified provider. | | + + + PATHOLOGY - EXTERNAL SCAN (01/26/2018 12:00 AM PDT) + + + | Narrative | Performed At | + + + | Ordered by an | | | unspecified provider. | | + + + IMAGING REPORT - EXTERNAL SCAN (10/21/2017 12:00 AM PDT) + + + | Narrative | Performed At | + + + | Ordered by an | | | unspecified provider. | | + + + documented in this encounter Visit Diagnoses + + | Diagnosis | + + | Gastric adenocarcinoma (HCC) Malignant neoplasm of stomach, unspecified site | + + | Malignant neoplasm of overlapping sites of stomach (HCC) Malignant neoplasm of other | | specified sites of stomach | + + documented in this encounter
--- OUTSIDE RECORDS SUMMARY | ~2019-09-12 | XMS | Encounter Summary ---
Demographics + + + | Address | [address] | | | [place] [address] | + + + | Home Phone | | + + + | Preferred Language | Unknown | + + + | Marital Status | | + + + | Hoahaoism Affiliation | NRP | + + + | Race | White | + + + | Ethnic Group | Not or | + + + Author + + + | Author | [facility] | + + + | Organization | [facility] | + + + | Address | Unknown | + + + | Phone | Unavailable | + + + Support + + + + + | Name | Relationship | Address | Phone | + + + + + | Matthew Ramirez | CHRIS | [address] | | | | | [place] | | | | | [address] | | + + + + + | Nella Haque | ECON | Unknown | | + + + + + Care Team Providers + +------+ + | Care Snack Foods Mixer Operator Name | Role | Phone | + +------+ + | Long Copeland MD | PCP | | + +------+ + Reason for Visit + + + | Reason | Comments | + + + | Refill Request | | + + + Encounter Details +--------+--------+ + + + | Date | Type | Department | Care Team | Description | +--------+--------+ + + + | 08/15/ | Refill | [facility] | Rodriguez Bower MD | Refill Request | | 2020 | | [facility] | [address] [facility] | | | | | [facility] | [place], [place] | | | | | [facility] | [address] | | | | | [facility]aling [address] | [phone] | | | | | [address] [place], [place] | | | | | | [address] | | | | | | [phone] | | | +--------+--------+ + + + Social History + +-------+ [...]
--- OUTSIDE RECORDS SUMMARY | ~2019-09-12 | XMS | Encounter Summary ---
Demographics + + + | Address | [address] | | | [place] [address] | + + + | Home Phone | | + + + | Preferred Language | Unknown | + + + | Marital Status | | + + + | Islam Affiliation | Unknown | + + + | Race | Unknown | + + + | Ethnic Group | Unknown | + + + Author + + + | Author | [facility] | | | and [place]eno[place] | + + + | Organization | [facility] | | | and [...] + | Matthew Ramirez | ECON | [address] | | | | | [place] | | | | | [address] | | + + + + + Care Team Providers + +------+ + | Care Lottery Manager Name | Role | Phone | + +------+ + | Ashly Rojo PA-C | PCP | | + +------+ + Encounter Details +--------+ + + + + | Date | Type | Department | Care Team | Description | +--------+ + + + + | 01/01/ | Abstract | [facility] | No, Physician p | Acute reaction to | | 2019 | | SURGERY [address] | | stress; H/O neoplasm | | | | [place], [place] | | of uncertain | | | | [address] | | behavior of skin; | | | | [phone] | | Primary localized | | | | | | osteoarthritis of | | | | | | left knee; Mitral | | | | | | valve insufficiency, | | | | | | unspecified | | | | | | etiology; Left lower | | | | | | quadrant pain; | | | | | | Hypothyroidism, | | | | | | unspecified type; | | | | | | Fibromyalgia; | | | | | | Dysfunction of left | | | | | | eustachian tube; | | | | | | Vertigo | +--------+ + + + + Social [...] + + documented as of this encounter Progress Notes 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 No acute osseous abnormality. CHEST: Chest Wall: No subclavicular or axillary lymphadenopathy. Mediastinum and maggie: No lymphadenopathy. Heart and pericardium: Heart size is normal. No pericardial effusion. Vessels: Normal caliber of the thoracic aorta. Lungs: No significant noncalcified nodule. Punctate calcified nodule at the left lower lobe. No airspace consolidation. Minimal dependent atelectasis. Probable mild centrilobular emphysematous changes. Large airways: Unremarkable. Pleura: No pleural effusion or pneumothorax. ABDOMEN/PELVIS: Abdominal wall: No inguinal lymphadenopathy. Liver: Intrahepatic and extrahepatic biliary ductal dilatation with the common bile duct measuring up to 2.1 cm, stable appearance from prior and this setting of cholecystectomy. No mass lesion identified. Gallbladder: Surgically absent. Pancreas: Fatty infiltration. No mass or ductal dilatation. Spleen: Unremarkable. Adrenals: No nodule. Kidneys: No nephrolithiasis or hydronephrosis. No evidence of a mass lesion. Ureters: No hydroureter. Urinary Bladder: No wall thickening. Reproductive organs: Hysterectomy changes. No adnexal mass. Bowel: No concerning gastric mass lesion identified. There is a stable 10 mm lipoma at the anterior wall of the gastric antrum. No bowel obstruction. Probable appendectomy changes. Scattered colonic diverticula without pericolonic inflammation. Mild to moderate amount stool throughout the majority of the colon. Peritoneum/retroperitoneum: No ascites, free air, or lymphadenopathy. Stable postoperative changes at the anterior abdomen and posterior and left pelvis. Vessels: Normal caliber of the abdominal aorta with after sclerotic vascular disease of the aorta and major branching vessels. IMPRESSION - No concerning gastric mass identified. No findings to suggest metastatic disease. Lipoma within the anterior wall of the gastric antrum. Diverticulosis without diverticulitis. Mild to moderate colonic stool retention. Unchanged biliary ductal dilatation in the setting of prior cholecystectomy. Anterior pelvic and anterior abdominal wall postoperative changes. Dictated and Signed by: Jose Snyder MD documented in this e ncounter Plan of Treatment Not on filedocumented as of this encounter Visit Diagnoses + + | Diagnosis | + + | Acute reaction to stress Other acute reactions to stress | + + | H/O neoplasm of uncertain behavior of skin Personal history of diseases of skin and | | subcutaneous tissue | + + | Primary localized osteoarthritis of left knee | + + | Mitral valve insufficiency, unspecified etiology | + + | Left lower quadrant pain Abdominal pain, left lower quadrant | + + | Hypothyroidism, unspecified type | + + | Fibromyalgia Mylagia and myositis, unspecified | + + | Dysfunction of left eustachian tube Dysfunction of Eustachian tube | + + | Vertigo Dizziness and giddiness | + + documented in this encounter"
--- OUTSIDE RECORDS SUMMARY | ~2019-09-12 | XMS | Encounter Summary ---
Demographics + + + | Address | [address] | | | [place] [address] | + + + | Home Phone | | + + + | Preferred Language | Unknown | + + + | Marital Status | | + + + | Mu-Ism Affiliation | Unknown | + + + | Race | Unknown | + + + | Ethnic Group | Unknown | + + + Author + + + | Author | [facility] | | | and [place] | + + + | Organization | [facility] | | | and [place] [...] + | Matthew Ramirez | ECON | [address] | | | | | [place] | | | | | [address] | | + + + + + Care Team Providers + +------+ + | Care Pharmacology Teacher Name | Role | Phone | + +------+ + | Ashly Rojo PA-C | PCP | | + +------+ + Reason for Visit + + + | Reason | Comments | + + + | Patient Concerns | | + + + Encounter Details +--------+ + + + + | Date | Type | Department | Care Team | Description | +--------+ + + + + | 01/15/ | Telephone | [facility] | [place], | Patient Concerns | | 2019 | | [facility] | Luis Richards MD [address] | | | | [address] | [facility] | | | | | [address] | [place] [address] | | | | | [place] [address] | [phone] | | | | | [phone] | | | +--------+ + + + + Social History + +-------+ +--------+------+ | Tobacco Use | Types | Packs/Day | Years | Date | | | | | Used | | + +-------+ +--------+------+ | Former Smoker | | | | | + +-------+ +--------+------+ + +---+---+---+ | Smokeless Tobacco: | | | | | Never Used | | | | + +---+---+---+ + + | Comments: only smoked for 1 year | + + + + +---------+ + | Alcohol Use | Drinks/Week | oz/Week | Comments | + + +---------+ + | Yes | 3 Glasses of wine | 3.0 | | + + +---------+ + + [...]
--- OUTSIDE RECORDS SUMMARY | ~2019-09-12 | XMS | Encounter Summary ---
Demographics + + + | Address | [address] | | | [place] [address] | + + + | Home Phone | | + + + | Preferred Language | Unknown | + + + | Marital Status | | + + + | Samaritan Affiliation | Unknown | + + + | Race | Unknown | + + + | Ethnic Group | Unknown | + + + Author + + + | Author | [facility] | | | and [place] | + + + | Organization | [facility] | | | and [...] + | Matthew Ramirez | [place] | [address] | | | | | [place] | | | | | [address] | | + + + + + Care Team Providers + +------+ + | Care Director Of Global Marketing Name | Role | Phone | + +------+ + PCP | Unavailable | + +------+ + Encounter Details +--------+ + + + + | Date | Type | Department | Care Team | Description | +--------+ + + + + | 07/24/ | Hospital | [facility] | | | | 1999 | Encounter | MED CTR XRAY [address] | | | | | | [address] | | | | | | [place] [address] | | | | | | [phone] | | | +--------+ + + + [...]
--- OUTSIDE RECORDS SUMMARY | ~2019-09-12 | XMS | Encounter Summary ---
Demographics + + + | Address | [address] | | | [place] [address] | + + + | Home Phone | | + + + | Preferred Language | Unknown | + + + | Marital Status | | + + + | Yazidi Affiliation | Unknown | + + + | Race | Unknown | + + + | Ethnic Group | Unknown | + + + Author + + + | Author | [facility] | | | and [place] | + + + | Organization | [facility] | | | and [...] + | Matthew Ramirez | [place] | [address] | | | | | [place] | | | | | [address] | | + + + + + Care Team Providers + +------+ + | Care Director Funeral Name | Role | Phone | + +------+ + PCP | Unavailable | + +------+ + Encounter Details +--------+ + + + + | Date | Type | Department | Care Team | Description | +--------+ + + + + | 03/20/ | Hospital | [facility] | | | | 1994 | Encounter | MED CTR XRAY [address] | | | | | | [address] | | | | | | [place] [address] | | | | | | [phone] | | | +--------+ + + + [...]
--- OUTSIDE RECORDS SUMMARY | ~2019-09-12 | XMS | Encounter Summary ---
Demographics + + + | Address | [address] | | | [place] [address] | + + + | Home Phone | | + + + | Preferred Language | Unknown | + + + | Marital Status | | + + + | Quaker Affiliation | Unknown | + + + | Race | Unknown | + + + | Ethnic Group | Unknown | + + + Author + + + | Author | [facility] | | | and [place] | + + + | Organization | [facility] | | | and [place] [...] + | Matthew Ramirez | ECON | [address] | | | | | [place] | | | | | [address] | | + + + + + Care Team Providers + +------+ + | Care Technical Account Executive Name | Role | Phone | + +------+ + | Ashly Rojo PA-C | PCP | | + +------+ + Reason for Visit +---------+ + | Reason | Comments | +---------+ + | Results | | +---------+ + Encounter Details +--------+ + + + + | Date | Type | Department | Care Team | Description | +--------+ + + + + | 12/24/ | Telephone | [facility] | Matthew Shukla MD | Results | | 2019 | | GASTROENTEROLOGY | [address] [facility] | | | | | [address] | [place], [place] | | | | | [address] [place], [place] | [address] | | | | | [address] | [phone] | | | | | [phone] | | | +--------+ + + + [...]
--- OUTSIDE RECORDS SUMMARY | ~2019-09-12 | XMS | Encounter Summary ---
Demographics + + + | Address | [address] | | | [place] [address] | + + + | Home Phone | | + + + | Preferred Language | Unknown | + + + | Marital Status | | + + + | Baptism Affiliation | Unknown | + + + | Race | Unknown | + + + | Ethnic Group | Unknown | + + + Author + + + | Author | [facility] | | | and [place]eno[place] | + + + | Organization | [facility] | | | and [place]eno[place] | [...] + | Matthew Ramirez | ECON | [address] | | | | | [place] | | | | | [address] | | + + + + + Care Team Providers + +------+ + | Care Senior Engineering Technician Name | Role | Phone | + [...] | | | unspecified | | [place] [address] | | | | | type | | Phone: | | | | | Chronic | | [phone] | | | | | abdominal | | Fax: | | | | | pain | | [phone] | | | | | Benzodiazepi | [...] | | | | | | | MT | | | | | | | ESOPHAGOGAST | | | | | | | RODUODENOSCO | | | | | | | PY TRANSORAL | | | | | | | DIAGNOSTIC | | | | | | | MT EGD | | | | | | | TRANSORAL | | | | | | | BIOPSY | | | | | | | SINGLE/MULTI | | | | | | | PLE MT | | | | | | | COLONOSCOPY | | | | | | | FLX DX | | | | | | | W/COLLJ SPEC | | | | | | | WHEN PFRMD | | | | | | | MT | | | | | | | COLONOSCOPY | | | | | | | W/BIOPSY | | | | | | | SINGLE/MULTI | | | | | | | PLE MT | | | | | | | COLSC FLX | | | | | | | W/RMVL OF | | | | | | | TUMOR POLYP | | | | | | | LESION SNARE | | | | | | | TQ MT | | | | | | | [...] Description | +--------+---------+ + + + | 12/17/ | Surgery | [facility] | Matthew Shukla MD | EGD | | 2019 | | [facility] | [address] | | | | | [address] | [place] | | | | | [place] | [address] | | | | | [address] | [phone] | | | | | [phone] | | | +--------+---------+ + + + [...] + + + | Blood Pressure | 143/78 | 12/17/2018 4:15 PM | | | | | PDT | | + + + + + | Pulse | 77 | 12/17/2018 4:15 PM | | | | | PDT | | + + + + + | Temperature | 36.5 C (97.7 F) | 12/17/2018 4:02 PM | | | | | PDT | | + + + + + | Respiratory Rate | 12 | 12/17/2018 4:02 PM | | | | | PDT | | + + + + + | Oxygen Saturation | 99% | 12/17/2018 4:15 PM | | | | | PDT | | + + + + + | Inhaled Oxygen | - | - | | | Concentration | | | | + + + + + | Weight | 88.5 kg (195 lb 1.7 | 12/17/2018 1:45 PM | | | | oz) | PDT | | + + + + + | Height | 175.3 cm (5' 9") | 12/17/2018 1:45 PM | | | | | PDT | | + + + + + | Body Mass Index | 28.81 | 12/17/2018 1:45 PM | | | | | PDT [...] + + + +---------+ + + | ondansetron | Take 1 tablet by | 2 | 0 | 12/15/19 | | | (ZOFRAN) 4 mg tablet | mouth See Admin | tablet | | 19 | 9 | | | Instructions. If | | | | | | | nausea with prep. 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) | | | | | | Narcotic dependence, | | | | | | episodic use ([facility]) | | | | | | LUQ pain | | | | | | Alternating | | | | | | constipation and | | | | | | diarrhea | | | | | | Hematochezia Weight | | | | | | loss, unintentional | | + +--------+ + + + | EGD | | 12/17/2018 | Rectal bleeding | | | | | 3:07 PM | Diarrhea, | | | | | PDT | unspecified type | | | | | | Chronic abdominal | | | | | | pain 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 | + +--------+ + + + | COLONOSCOPY | Routin | 12/17/2018 | | Results for this | | | e | 3:04 PM | | procedure are in the | | | | PDT | | results section. | + +--------+ + + + | SURGICAL PATHOLOGY | Routin | 12/17/2018 | | Results for this | | EXAM | e | 12:00 AM | | procedure are in the | | | | PDT | | results section. | + +--------+ + + + documented in this encounter Results EGD (12/17/2018 3:06 PM PDT) + + | Specimen | + + | | + + + + -+ | Narrative | Performed At | + + -+ | | [facility] | | GastroenterologyPatient Name: Ashly RamirezPromathew Date: 12/17/2018 | [facility] | | 3:06 PMMRN: [id number] #: [id number] of : | | | 1940[place] Type: AmbulatoryAge: 78Room: Endo Room 2Gender: | | | FemaleNote Status: FinalizedAttending MD: Matthew Shukla , | | | MDProcedure: Upper GI endoscopyIndications: | | | Abdominal pain in the left upper quadrant, Heartburn, | | | Suspected esophageal reflux, Nausea with | | | vomitingProviders: Matthew Shukla MD, Rina Edouard RN, | | | Conrado Kang CMA, Devon Murdock MD | | | (Anesthesia Staff)Medicines: Monitored Anesthesia | | | CareComplications: No immediate complications.Procedure: | | | Pre-Anesthesia Assessment: - Prior to the procedure, a History | | | and Physical was performed, and patient medications and | | | allergies were reviewed. The patient is competent. The risks | | | and benefits of the procedure and the sedation options and | | | risks were discussed with the patient. All questions were | | | answered and informed consent was obtained. Patient identification and | | | proposed procedure were verified by the physician, the nurse, | | | the anesthesiologist and the furniture repair technician in the pre-procedure | | | area in the procedure room. Mental Status Examination: alert | | | and oriented. Airway Examination: normal oropharyngeal airway | | | and neck mobility. Respiratory Examination: clear to | | | auscultation. CV Examination: normal. Prophylactic Antibiotics: | | | The patient does not require prophylactic antibiotics. Prior | | | Anticoagulants: The patient has taken no previous anticoagulant or | | | antiplatelet agents. ASA Grade Assessment: III - A patient with | | | severe systemic disease. After reviewing the risks and | | | benefits, the patient was deemed in satisfactory condition to | | | undergo the procedure. The anesthesia plan was to use monitored | | | anesthesia care (MAC). Immediately prior to administration of | | | medications, the patient was re-assessed for adequacy to | | | receive sedatives. The heart rate, respiratory rate, oxygen | | | saturations, blood pressure, adequacy of pulmonary ventilation, and | | | response to care were monitored throughout the procedure. The | | | physical status of the patient was re-assessed after the | | | procedure. After obtaining informed consent, the endoscope was | | | passed under direct vision. Throughout the procedure, the | | | patient's blood pressure, pulse, and oxygen saturations were | | | monitored continuously. The Endoscope was introduced through | | | the mouth, and advanced to the third part of duodenum. The | | | upper GI endoscopy was accomplished without difficulty. The | | | patient tolerated the procedure well.Findings: LA Grade A (one | | | or more mucosal breaks less than 5 mm, not extending between | | | tops of 2 mucosal folds) esophagitis with no bleeding was found. | | | Biopsies were taken with a cold forceps for histology. Verification | | | of patient identification for the specimen was done by the | | | physician and nurse using the patient's name and date. | | | Estimated blood loss was minimal. No other significant | | | abnormalities were identified in a careful examination of the | | | esophagus. Diffuse moderate inflammation with hemorrhage | | | characterized by adherent blood, erosions, erythema and | | | friability was found in the gastric antrum. Biopsies were taken | | | with a cold forceps for histology. Verification of patient | | | identification for the specimen was done by the physician and | | | nurse using the patient's name and date. Estimated blood | | | loss was minimal. No other significant abnormalities were | | | identified in a careful examination of the stomach. The | | | cardia and gastric fundus were normal on retroflexion. The | | | examined duodenum was normal. Biopsies were taken with a cold | | | forceps for histology. Verification of patient identification for the | | | specimen was done by the physician and nurse using the | | | patient's name and date. Estimated blood loss was | | | minimal.Impression: - LA Grade A reflux esophagitis. Rule out | | | Ramirez's esophagus. Biopsied. - Chronic gastritis with | | | hemorrhage. Biopsied. - Normal examined duodenum. | | | Biopsied.Recommendation: - Patient has a contact number | | | available for emergencies. The signs and symptoms of potential | | | delayed complications were discussed with the patient. Return | | | to normal activities tomorrow. Written discharge instructions | | | were provided to the patient. - Resume previous diet. - | | | Continue present medications. - Await pathology results. - | | | Repeat upper endoscopy for surveillance based on pathology results. | | | - Return to GI clinic PRN. - Follow an antireflux regimen. | | | - No aspirin, ibuprofen, naproxen, or other non-steroidal | | | anti-inflammatory drugs. - The findings and recommendations | | | were discussed with the patient.Matthew Shukla MD12/17/2018 3:30:22 | | | PMThis report has been signed electronically.Number of Addenda: 0Note | | | Initiated On: 12/17/2018 3:06 PMScope In: 3:17:45 PMScope Out: 3:26:19 | | | PM [facility], [address] [facility] | | | [place] [address] | | | - Await pathology results. | | | - Repeat upper endoscopy for surveillance based on pathology results. | | | - Return to GI clinic PRN. | | | - Follow an antireflux regimen. | | | - No aspirin, ibuprofen, naproxen, or other non-steroidal | | | anti-inflammatory drugs. | | | - The findings and recommendations were discussed with the patient. | | |Matthew Shukla MD | | |12/17/2018 3:30:22 PM | | |This report has been signed electronically. | | |Number of Addenda: 0 | | |Note Initiated On: 12/17/2018 3:06 PM | | |Scope In: 3:17:45 PM | | |Scope Out: 3:26:19 PM | | | [facility], [address], [place] | | | [address] | | + + -+ + +---------+ + + | Performing | Address | City/State/[place] [facility]code | Phone Number | | Organization | | | | + +---------+ + + | [facility] | | | | + +---------+ + + COLONOSCOPY (12/17/2018 3:04 PM PDT) + + | Specimen | + + | | + + + + -+ | Narrative | Performed At | + + -+ | | [facility] | | GastroenterologyPatient Name: Ashly RamirezPronolanure Date: 12/17/2018 | [place] | | 3:04 PMMRN: [id number] #: [id number] of : | | | 1940dmit Type: AmbulatoryAge: 78Room: Endo Room 2Gender: | | | FemaleNote Status: FinalizedAttending MD: Matthew Shukla , | | | MDProcedure: ColonoscopyIndications: Abdominal | | | pain in the left upper quadrant, Hematochezia, | | | Chronic diarrhea, Weight lossProviders: Matthew Rosales | | | MD Gayla, Rina Edouard RN, Conrado Kang [facility], | | | Devon Murdock MD (Anesthesia Staff)Medicines: | | | Monitored Anesthesia CareComplications: No immediate | | | complications.Procedure: Pre-Anesthesia Assessment: - | | | Prior to the procedure, a History and Physical was performed, and | | | patient medications and allergies were reviewed. The patient is | | | competent. The risks and benefits of the procedure and the | | | sedation options and risks were discussed with the patient. All | | | questions were answered and informed consent was obtained. | | | Patient identification and proposed procedure were verified by | | | the physician, the nurse, the anesthesiologist and the | | | furniture repair technician in the pre-procedure area in the procedure room. | | | Mental Status Examination: alert and oriented. Airway | | | Examination: normal oropharyngeal airway and neck mobility. | | | Respiratory Examination: clear to auscultation. CV Examination: | | | normal. Prophylactic Antibiotics: The patient does not require | | | prophylactic antibiotics. Prior Anticoagulants: The patient | | | has taken no previous anticoagulant or antiplatelet agents. ASA | | | Grade Assessment: III - A patient with severe systemic | | | disease. After reviewing the risks and benefits, the patient | | | was deemed in satisfactory condition to undergo the procedure. The | | | anesthesia plan was to use monitored anesthesia care (MAC). | | | Immediately prior to administration of medications, the patient | | | was re-assessed for adequacy to receive sedatives. The heart | | | rate, respiratory rate, oxygen saturations, blood pressure, | | | adequacy of pulmonary ventilation, and response to care were | | | monitored throughout the procedure. The physical status of the | | | patient was re-assessed after the procedure. After I obtained | | | informed consent, the scope was passed under direct vision. | | | Throughout the procedure, the patient's blood pressure, pulse, | | | and oxygen saturations were monitored continuously. The Colonoscope | | | was introduced through the anus and advanced to the cecum, | | | identified by appendiceal orifice and ileocecal valve. The | | | colonoscopy was somewhat difficult due to restricted mobility | | | of the colon, a redundant colon, significant looping, a | | | tortuous colon and the patient's body habitus. The patient | | | tolerated the procedure well. The quality of the bowel | | | preparation was fair. The quality of the bowel preparation was | | | evaluated using the BBPS ([place] Bowel Preparation Scale) with | | | scores of: Right Colon = 2 (minor amount of residual staining, | | | small fragments of stool and/or opaque liquid, but mucosa seen | | | well), Transverse Colon = 2 (minor amount of residual staining, | | | small fragments of stool and/or opaque liquid, but mucosa seen | | | well) and Left Colon = 2 (minor amount of residual staining, | | | small fragments of stool and/or opaque liquid, but mucosa seen | | | well). The total BBPS score equals 6. The quality of the bowel | | | preparation was fair.Findings: The perianal and digital rectal | | | examinations were normal. A 3 mm polyp was found in the sigmoid | | | colon. The polyp was sessile. The polyp was removed with a cold | | | biopsy forceps. Resection and retrieval were complete. | | | Verification of patient identification for the specimen was | | | done by the physician and nurse using the patient's name and | | | date. Estimated blood loss was minimal. Many medium-mouthed | | | diverticula were found in the sigmoid colon. No other | | | significant abnormalities were identified in a careful | | | examination of the remainder of the colon. Unable to intubate | | | the terminal ileum despite multiple attempts and maneuvers | | | Biopsies for histology were taken with a cold forceps from the | | | right colon, left colon and transverse colon for evaluation of | | | microscopic colitis. Verification of patient identification for | | | the specimen was done by the physician and nurse using the | | | patient's name and date. Estimated blood loss was | | | minimal. Non-bleeding internal hemorrhoids were found during | | | retroflexion. The hemorrhoids were moderate, medium-sized and | | | Grade II (internal hemorrhoids that prolapse but reduce | | | spontaneously). No additional abnormalities were found on | | | retroflexion. A large amount of semi-liquid semi-solid stool was | | | found in the entire colon, making visualization difficult. | | | Lavage of the area was performed using copious amounts of tap | | | water, resulting in clearance with fair | | | visualization.Impression: - Preparation of the colon was fair. | | | - Preparation of the colon was fair. - One 3 mm polyp in | | | the sigmoid colon, removed with a cold biopsy forceps. Resected | | | and retrieved. - Diverticulosis in the sigmoid colon. - | | | Non-bleeding internal hemorrhoids. - Biopsies were taken with a | | | cold forceps from the right colon, left colon and transverse | | | colon for evaluation of microscopic colitis.Recommendation: - | | | Patient has a contact number available for emergencies. The signs and | | | symptoms of potential delayed complications were discussed with | | | the patient. Return to normal activities tomorrow. Written | | | discharge instructions were provided to the patient. - | | | High fiber diet. - Continue present medications. - Await | | | pathology results. - Repeat colonoscopy in 5 years for | | | surveillance based on pathology results. - Return to GI | | | office PRN. - No aspirin, ibuprofen, naproxen, or other | | | non-steroidal anti-inflammatory drugs. - The findings and | | | recommendations were discussed with the patient.Matthew Shukla | | | 12/17/2018 4:05:18 PMThis report has been signed electronically.Number | | | of Addenda: 0Note Initiated On: 12/17/2018 3:04 PMScope Withdrawal | | | Time: 0 hours 16 minutes 43 seconds Scope In: 3:31:39 PMScope Out: | | | 3:55:04 PM [facility], [address] [place] [address], | | | [place] [address] | | | - Await pathology results. | | | - Repeat colonoscopy in 5 years for surveillance based on pathology | | | results. | | | - Return to GI office PRN. | | | - No aspirin, ibuprofen, naproxen, or other non-steroidal | | | anti-inflammatory drugs. | | | - The findings and recommendations were discussed with the patient. | | |Matthew Shukla MD | | |12/17/2018 4:05:18 PM | | |This report has been signed electronically. | | |Number of Addenda: 0 | | |Note Initiated On: 12/17/2018 3:04 PM | | |Scope Withdrawal Time: 0 hours 16 minutes 43 seconds | | |Scope In: 3:31:39 PM | | |Scope Out: 3:55:04 PM | | | [facility], [address] [facility], [place], [place] | | | [address] | | + + -+ + +---------+ + + | Performing | Address | City/State/Zipcode | Phone Number | | Organization | | | | + +---------+ + + | [facility] | | | | + +---------+ + + Surgical Pathology Exam (12/17/2018 12:00 AM PDT) + + | Specimen | + + | | + + + + + | Narrative | Performed At | + + + | THIS IS AN ADDENDUM REPORT SPECIMEN(S): A GASTRIC | [facility] | | BIOPSY SPECIMEN(S): B DUODENAL BIOPSY SPECIMEN(S): C GASTRIC ANTRUM | INCYTE | | SPECIMEN(S): D GE JUNCTION SPECIMEN(S): E ASCENDING COLON | | | SPECIMEN(S): F TRANSVERSE COLON SPECIMEN(S): G DESCENDING COLON | | | SPECIMEN(S): H SIGMOID POLYP SPECIMEN SOURCE: A. GASTRIC BIOPSY | | | B. DUODENAL BIOPSY C. GASTRIC ANTRUM D. GE JUNCTION E. ASCENDING | | | COLON F. TRANSVERSE COLON G. DESCENDING COLON H. SIGMOID POLYP | | | CLINICAL HISTORY: K62.5 (rectal bleeding), R19.7 (diarrhea, | | | unspecified), R10.9, G89.29 (chronic abdominal pain), F13.20 | | | (benzodiazepine dependence), F11.20 (narcotic dependence, episodic | | | use), R10.12 (LUQ pain), R19.8 (alternating constipation and | | | diarrhea), K92.1 (hematochezia), R63.4 (weight loss, unintentional). | | | MICROSCOPIC DESCRIPTION: A. Sections reveal biopsies of gastric | | | mucosa. The epithelial surface is intact has retained | | | mucous-secreting ability. The lamina propria is mildly expanded by a | | | population of plasma cells, lymphocytes, and infrequent eosinophils. | | | No acute inflammatory cells, goblet cells, Paneth cells, or | | | bacteria morphologically consistent with Helicobacter are seen on | | | HE-stained sections. One of the biopsies contains an atypical | | | infiltrate on somewhat cohesive-appearing cells interspersed between | | | benign glandular epithelium. Individual cells have enlarged, | | | minimally hyperchromatic nuclei with one large red macronucleolus | | | and moderate amounts of fluffy-appearing, somewhat vacuolated | | | cytoplasm. Immunostains are obtained for CK AE1/A3, CD 138, CD 68, | | | and Melan-A, along with appropriately positive controls. The cells | | | of interest are positive for CK AE1/AE3 and negative for CD138, CD68, | | | and Melan A, though there is a background of CD138 and CD68 positive | | | cells mixed in. 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 C. | | | Sections reveal a biopsy of gastric mucosa. The epithelial surface | | | is intact and has retained mucous-secreting ability. The lamina | | | propria is mildly expanded by a population of plasma cells, | | | lymphocytes, and occasional eosinophils. No acute inflammatory | | | cells, goblet cells, Paneth cells, or bacteria morphologically | | | consistent with Helicobacter are seen on HE-stained sections. | | | Given the presence of signet ring carcinoma in specimen A, immunostain | | | for CK AE1/AE3 is obtained, along with an appropriately positive | | | control, looking for occult single malignant cells in the interstices | | | between glands. No such cells are found, and thus there is no | | | evidence of malignancy or atypia. D. Sections of | | | gastroesophageal junction reveal multiple pieces of glandular mucosa | | | consistent with proximal gastric origin. The epithelial surface is | | | intact and has retained mucous secreting ability. The lamina | | | propria is mildly expanded by a population of plasma cells, | | | lymphocytes, and occasional eosinophils. No acute inflammatory cells | | | or goblet cells are seen. No squamous mucosa is present. | | | Immunostain for CK AE1/AE3 is obtained along with an appropriately | | | positive control, and is negative for occult malignant cells in the | | | interstices between glands. E. Sections reveal biopsies of | | | colonic mucosa. The epithelial surface is intact and has retained | | | mucous-secreting ability. The basement membrane is not thickened. | | | Glands are simple and tubular and reach all the way to the | | | muscularis mucosae. The lamina propria is minimally expanded by a | | | population of plasma cells, lymphocytes, and infrequent eosinophils. | | | A small amount of edema and intramucosal hemorrhage is present. | | | No acute inflammatory cells, excess intraepithelial lymphocytes, | | | crypt abscesses, areas of fibrosis, or granulomas are seen. There is | | | no evidence of malignancy or atypia. LJA:smn FINAL PATHOLOGIC | | | DIAGNOSIS: A. 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 - Background of mild | | | inactive chronic gastritis. - Negative for the presence of bacteria | | | morphologically consistent with Helicobacter on HE-stained sections. | | | B. Mucosa, duodenum, biopsy: - Small intestinal mucosa with | | | normal villous architecture, no microscopic pathologic diagnosis. | | | C. Mucosa, antrum, biopsy: - Mild inactive chronic gastritis. - | | | Negative for signet ring carcinoma. - Negative for the presence | | | of bacteria morphologically consistent with Helicobacter on HE-stained | | | sections. D. Mucosa, gastroesophageal junction, biopsy: - | | | Glandular mucosa with mild chronic inflammation. - Negative for | | | signet ring carcinoma. E. Mucosa, ascending colon, biopsy: - | | | Minimal intramucosal hemorrhage and mild chronic colitis without | | | other distinguishing features. F. Mucosa, transverse colon, | | | biopsy: - No microscopic pathologic diagnosis. G. Mucosa, | | | descending colon, biopsy: - No microscopic pathologic diagnosis. | | | H. Mucosa, sigmoid colon, biopsy: - Tubular adenoma. | | | COMMENT: A -- As part of [email or web address]' Quality Improvement | | | Program, this portion of the case has been reviewed by another member | | | of our pathology staff with subspecialty training in gastrointestinal | | | pathology. Results called to Dr. Shukla office [facility]) 12/24/18 | | | 10:15 AM. Discussed results on specimen A with Dr. Shukla | | | 2:15 PM. LJA:smn:[id number] GROSS DESCRIPTION: Eight specimens are | | | received in eight containers, labeled "Ashly Unger." A. The | | | specimen, labeled "LS, gastric," is received in formalin and consists | | | of three caraballo soft tissue fragment(s) that measure 0.3-0.8 cm in | | | greatest dimension. The specimen is entirely submitted in cassette | | | (A1). B. The specimen, labeled "LS, duodenal biopsy," is | | | received in formalin and consists of six caraballo soft tissue fragment(s) | | | that measure 0.1-0.4 cm in greatest dimension. The specimen is | | | entirely submitted in cassette (B1). C. The specimen, labeled | | | "LS, antrum," is received in formalin and consists of seven caraballo soft | | | tissue fragment(s) that measure 0.1-0.4 cm in greatest dimension. The | | | specimen is entirely submitted in cassette (C1). D. The | | | specimen, labeled "LS, GE junction," is received in formalin and | | | consists of three caraballo soft tissue fragment(s) that measure 0.4-0.7 cm | | | in greatest dimension. The specimen is entirely submitted in cassette | | | (D1). E. The specimen, labeled "LS, ascending colon," is | | | received in formalin and consists of three caraballo soft tissue fragment(s) | | | that measure 0.2-0.4 cm in greatest dimension. The specimen is | | | entirely submitted in cassette (E1). F. The specimen, labeled | | | "LS, transverse colon," is received in formalin and consists of one | | | caraballo soft tissue fragment that measures 0.4 cm in greatest dimension. | | | The specimen is entirely submitted in cassette (F1). G. The | | | specimen, labeled "LS, descending colon," is received in formalin and | | | consists of three caraballo soft tissue fragment(s) that measure 0.2-0.3 cm | | | in greatest dimension. The specimen is entirely submitted in cassette | | | (G1). H. The specimen, labeled "LS, sigmoid polyp," is | | | received in formalin and consists of one caraballo soft tissue fragment that | | | measures 0.4 cm in greatest dimension. The specimen is entirely | | | submitted in cassette (H1). FB (under the direct supervision of a | | | pathologist) The Gross Description was prepared using a voice | | | recognition system. The report was reviewed for accuracy; however, | | | sound-alike word errors, addition and/or deletions may occur. If | | | there is any question about this report, please contact Client | | | Services. ADDITIONAL NOTES: Immunohistochemical and/or in situ | | | hybridization studies were performed on this case with the appropriate | | | positive controls that react as expected. This test was developed | | | and its performance characteristics determined by [email or web address]. | | | It has not been cleared or approved by the U.S. Food and Drug | | | Administration. The FDA has determined that such clearance or | | | approval is not necessary. This test is used for clinical purposes. | | | It should not be regarded as investigational or for research. | | | [email or web address] is certified under the Clinical Laboratory | | | Improvement Amendments of 1988 (CLIA) as qualified to perform high | | | complexity clinical laboratory testing. PERFORMING LABORATORY: | | | The technical component was performed by [email or web address], [address] | | [place] [address] (Restorative Rehab Aide: Marilyn Dowell MD; | | | CLIA# [id number]). Professional interpretation was performed by | | | [email or web address], [facility], [address] [place] [address]. | | | [address] [place] [address] (Restorative Rehab Aide: Guevara Ernandez | | | ; CLIA# [id number]). ADDITIONAL NOTES: Immunohistochemical | | | and/or in situ hybridization studies were performed on this case with | | | the appropriate positive controls that react as expected. This test | | | was developed and its performance characteristics determined by | | | [email or web address]. It has not been cleared or approved by the U.S. | | | Food and Drug Administration. The FDA has determined that such | | | clearance or approval is not necessary. This test is used for | | | clinical purposes. It should not be regarded as investigational or | | | for research. [email or web address] is certified under the Clinical | | | Laboratory Improvement Amendments of 1988 (CLIA) as qualified to | | | perform high complexity clinical laboratory testing. PERFORMING | | | LABORATORY: The technical component was performed by [facility] | | [facility], [address] [place] [address] (Restorative Rehab Aide: | | | Marilyn Dowell MD; CLIA# [id number]). Professional interpretation was | | | performed by [email or web address], [address] [place] | | | [place] [address] (Restorative Rehab Aide: Darien Kapoor D.O.; CLIA#: | | | [id number]). REASON FOR ADDENDUM: To add results of additional | | | testing. ADDENDUM PATHOLOGIC DIAGNOSIS: HER-2 protein by | | | IHC, stomach: - Negative; IHC score 1+. ARW:glc ADDENDUM | | | MICROSCOPIC EXAMINATION: Specimen type: Endoscopic biopsy. Block: | | | A1. The fixation is 10% buffered formalin. The length of fixation | | | is unknown. HER-2 protein expression by immunohistochemistry | | | using the FDA-approved HER-2 Pathway is performed at [facility] | | | [place], on accession #[id number] from at the request | | | of Dr. Ernanedz. Standardized batch control materials react | | | appropriately. The specimen is satisfactory. The presence of tumor | | | is confirmed. Scoring is according to Ruschoff validation of the | | | Tsai ToGA guidelines. Negative; tumor cell cluster of five or | | | more cells with faint or barely perceptible membranous reactivity; | | | score 1+. ARW:glc REASON FOR ADDENDUM: To add results of | | | additional testing. ADDENDUM PATHOLOGIC DIAGNOSIS: HER-2 gene | | | by FISH: - Negative for amplification. MZ:caw ADDENDUM | | | MICROSCOPIC EXAMINATION: Block: A1. Cold ischemia time: Unknown. | | | The fixation is 10% buffered formalin. The length of fixation is | | | unknown. Scoring method: Manual. Fluorescence in situ | | | hybridization (FISH) study (multiplex probe) for HER-2 gene | | | amplification using the Vysis PathVysion kit was performed at [facility] | | | [place]. The assay has not been validated for | | | decalcified specimens. Controls were processed in the same batch as | | | the patient and reacted appropriately. The patient's sample was | | | considered adequate for interpretation. - Number of | | | nuclei counted: 40. - Number of HER-2 signals counted: | | | 47. - Number of CEP 17 signals counted: 41. - | | | Average number of HER-2 signals per cell: 1.18 - | | | Average number of CEP 17 signals per cell: 1.03. - | | | HER-2:CEP 17 ratio: 1.15. Negative for HER-2 amplification | | | (ratio less than 2.0 or average HER-2 signals per cell less than 4.0 | | | regardless of ratio). MZ:caw Professional interpretation was | | | performed by [email or web address], [address] [facility] | | | [place] [address] (Restorative Rehab Aide: Darien Kapoor D.O.; CLIA#: | | | [id number]). Diagnostician: Guevara Ernandez MD Pathologist | | | Diagnostician: Darien Kapoor DO Pathologist Diagnostician: | | | Lizett Spear MD, PhD Pathologist Electronically Signed 01/29/2019 | | | | | + + + + +---------+ + + | Performing | Address | City/State/Zipcode | Phone Number | | Organization | | | | + +---------+ + + | [facility] | | | | | [employer] | | | | + +---------+ + + documented in this encounter Visit Diagnoses + + | Diagnosis | + + | Rectal bleeding Hemorrhage of rectum and anus | + + | Diarrhea, unspecified type | + + | Chronic abdominal pain Abdominal pain, unspecified site | + + | Benzodiazepine dependence (HCC) Sedative, hypnotic or anxiolytic dependence, | | unspecified | + + | Narcotic dependence, episodic use (HCC) Unspecified drug dependence, episodic | + + | LUQ pain Abdominal pain, left upper quadrant | + + | Alternating constipation and diarrhea Other symptoms involving digestive system | + + | Hematochezia Blood in stool | + + | Weight loss, unintentional Loss of weight | + + documented in this encounter Admitting Diagnoses + + | Diagnosis | + + | Rectal bleeding Hemorrhage of rectum and anus | + + | Diarrhea, unspecified type | + + | Chronic abdominal pain Abdominal pain, unspecified site | + + | Benzodiazepine dependence (HCC) Sedative, hypnotic or anxiolytic dependence, | | unspecified | + + | Narcotic dependence, episodic use (HCC) Unspecified drug dependence, episodic | + + | LUQ pain Abdominal pain, left upper quadrant | + + | Alternating constipation and diarrhea Other symptoms involving digestive system | + + | Hematochezia Blood in stool | + + | Weight loss, unintentional Loss of weight | + + documented in this encounter Administered Medications + +--------+---------+------+------+------+ | Medication Order | MAR | Action | Dose | Rate | Site | | | Action | Date | | | | + +--------+---------+------+------+------+ + +---+ | albuterol-ipratropium 2.5-0.5 | | | mg/3 mL nebulizer solution 3 mL | | | 3 mL, Nebulization, ONCE PRN, | | | Wheezing, Starting [facility] 12/17/18 at | | | 1346, For 1 dose, Pre-op | | + +---+ | | | + +---+ | albuterol-ipratropium 2.5-0.5 | | | mg/3 mL nebulizer solution 3 mL | | | 3 mL, Nebulization, ONCE PRN, | | | Wheezing, Shortness of Breath, | | | Starting [facility] 12/17/18 at 1615, For | | | 1 dose, Recovery/Phase I | | + +---+ | | | + +---+ | dextrose 50% injection 12.5-25 | | | g 12.5-25 g, Intravenous, EVERY | | | 15 MIN PRN, Low Blood Sugar, Give | | | 12.5g (25 mL) IV if blood | | | glucose 50-69 mg/dL. Give 25g | | | (50 mL) IV if blood glucose < 50, | | | Starting [facility] 12/17/18 at 1346, | | | Repeat in 15 min if blood glucose | | | remains < 70 mg/dL. Repeat | | | blood glucose in 30 min once | | | blood glucose > 70., Pre-op | | + +---+ | | | + +---+ | dextrose 50% injection 12.5-25 | | | g 12.5-25 g, Intravenous, EVERY | | | 15 MIN PRN, Low Blood Sugar, For | | | hypoglycemia. Give 12.5g (25ml) | | | IV if blood glucose 50-69 | | | mg/dL. Give 25g (50ml) IV if | | | blood glucose < 50, Starting [facility] | | | 12/17/18 at 1615, Give over 2 min. | | | Repeat in 15 min if blood | | | glucose remains < 70 mg/dL. | | | Repeat blood glucose in 30 min | | | once blood glucose > 70., | | | Recovery/Phase I | | + +---+ | | | + +---+ + +---------+ +--------+-------+---+ | lactated ringers (LR) infusion | New Bag | 12/18/19 | 1,000 | 100 | | | at 100 mL/hr, Intravenous, | | 19 2:14 | mLs | mL/hr | | | CONTINUOUS, Starting [facility] 12/17/18 | | PM PDT | | | | | at 1415, Pre-op | | | | | | + +---------+ +--------+-------+---+ + +---+ | | | + +---+ | lactated ringers (LR) infusion | | | at 10-100 mL/hr, Intravenous, | | | CONTINUOUS, Starting [facility] 12/17/18 | | | at 1415, Use this instead of NS | | | unless patient is on dialysis., | | | Pre-op | | + +---+ | | | + +---+ | ondansetron (ZOFRAN ODT) | | | disintegrating tablet 4 mg 4 mg, | | | Oral, EVERY 6 HOURS PRN, Nausea, | | | Vomiting, Starting [facility] 12/17/18 at | | | 1615, First line agent, | | | Post-op/Phase II | | + +---+ | | | + +---+ | ondansetron (ZOFRAN) injection | | | 4 mg 4 mg, Intravenous, EVERY 6 | | | HOURS PRN, Nausea, Vomiting, | | | Starting [facility] 12/17/18 at 1615, | | | First line agent. Use PO option | | | unless NPO status or unable to | | | tolerate., Post-op/Phase II | | + +---+ | | | + +---+ | sodium chloride 0.9% (NS) | | | infusion at 10-100 mL/hr, | | | Intravenous, CONTINUOUS, Starting | | | [facility] 12/17/18 at 1415, TKO. Use | | | this instead of LR if patient is | | | on dialysis., Pre-op | | + +---+ | | | + +---+ documented in this encounter
--- OUTSIDE RECORDS SUMMARY | ~2019-09-12 | XMS | Encounter Summary ---
Demographics + + + | Address | [address] | | | [place] [address] | + + + | Home Phone | | + + + | Preferred Language | Unknown | + + + | Marital Status | | + + + | Zoroastrianism Affiliation | NRP | + + + [...] + | Matthew Ramirez | CHRIS | [address] | | | | | [place] | | | | | [address] | | + + + + + | Nella Haque | ECON | Unknown | | + + + + + Care Team Providers + +------+ + | Care Bolt Sawyer Name | Role | Phone | + +------+ + | Long Copeland MD | PCP | | + +------+ + Reason for Visit + + + | Reason | Comments | + + + | Symptom Management | Constipation | + + + Encounter Details +--------+ + + + + | Date | Type | Department | Care Team | Description | +--------+ + + + + | 07/27/ | Telephone | [facility] | Rodriguez Bower MD | Symptom Management | | 2020 | | [facility] | [address] | (Constipation) | | | | [facility] | [place], [place] | | | | | for Health and | [address] | | | | | [facility] [address] | [phone] | | | | | [place], [place] | | | | | | [address] | | | | | | [phone] | | | +--------+ + + + [...]
--- OUTSIDE RECORDS SUMMARY | ~2019-09-12 | XMS | Encounter Summary ---
Demographics + + + | Address | [address] | | | [place] [address] | + + + | Home Phone | | + + + | Preferred Language | Unknown | + + + | Marital Status | | + + + | Anabaptism Affiliation | Unknown | + + + | Race | Unknown | + + + | Ethnic Group | Unknown | + + + Author + + + | Author | [facility] | | | and [place] | + + + | Organization | [facility] | | | and [place]eno[place] [...] + | Matthew Ramirez | ECON | [address] | | | | | [place] | | | | | [address] | | + + + + + Care Team Providers + +------+ + | Care Dissolver Operator Name | Role | Phone | + +------+ + | Ashly Rojo PA-C | PCP | | + +------+ + Encounter Details +--------+ + + + + | Date | Type | Department | Care Team | Description | +--------+ + + + + | 05/12/ | Documentati | [facility] | [place], | | | 2019 | on | [facility] | Luis Richards MD [address] | | | | [facility] [address] [place] | | | | | [address] | [place] [address] | | | | | [place] [address] | [phone] | | | | | [phone] | | | +--------+ + + + [...] + | Diagnosis | + + | Malignant neoplasm of overlapping sites of stomach (HCC) Malignant neoplasm of other | | specified sites of stomach | + + documented in this encounter"
--- OUTSIDE RECORDS SUMMARY | ~2019-09-12 | XMS | Encounter Summary ---
Demographics + + + | Address | [address] | | | [place] [address] | + + + | Home Phone | | + + + | Preferred Language | Unknown | + + + | Marital Status | | + + + | Adventism Affiliation | Unknown | + + + | Race | Unknown | + + + | Ethnic Group | Unknown | + + + Author + + + | Author | [facility] | | | and [place] | + + + | Organization | [facility] | | | and [place] [...] + | Matthew Ramirez | CHRIS | [address] | | | | | [place] | | | | | [address] | | + + + + + Care Team Providers + +------+ + | Care Web Press Operator Helper Offset Name | Role | Phone | + +------+ + PCP | Unavailable | + +------+ + Encounter Details +--------+ + + + + | Date | Type | Department | Care Team | Description | +--------+ + + + + | 12/08/ | Hospital | [facility] | [place], | | | 2009 | Encounter | MED [facility] OP | Katerin Xavier MD | | | | | CONV DEPT [address] | | | | | | [place], | | | | | | [place] [address] | | | | | | [phone] | | | +--------+ + + + [...]
--- OUTSIDE RECORDS SUMMARY | ~2019-09-12 | XMS | Encounter Summary ---
Demographics + + + | Address | [address] | | | [place] [address] | + + + | Home Phone | | + + + | Preferred Language | Unknown | + + + | Marital Status | | + + + | Yazidi Affiliation | Unknown | + + + | Race | Unknown | + + + | Ethnic Group | Unknown | + + + Author + + + | Author | [facility] | | | and [place] | + + + | Organization | [facility] | | | and [...] + | Matthew Ramirez | CHRIS | [address] | | | | | [place] | | | | | [address] | | + + + + + Care Team Providers + +------+ + | Care Dump Truck Operator Name | Role | Phone | + +------+ + PCP | Unavailable | + +------+ + Encounter Details +--------+ + + + + | Date | Type | Department | Care Team | Description | +--------+ + + + + | 11/27/ | Hospital | [facility] | | | | 1999 | Encounter | [facility] | | | | | | CONV DEPT [address] | | | | | | [place], | | | | | | [place] [address] | | | | | | [phone] | | | +--------+ + + + [...]
--- OUTSIDE RECORDS SUMMARY | ~2019-09-12 | XMS | Encounter Summary ---
Demographics + + + | Address | [address] | | | [place] [address] | + + + | Home Phone | | + + + | Preferred Language | Unknown | + + + | Marital Status | | + + + | Restoration Affiliation | Unknown | + + + | Race | Unknown | + + + | Ethnic Group | Unknown | + + + Author + + + | Author | [facility] | | | and [place] | + + + | Organization | [facility] | | | and [...] + | Matthew Ramirez | ECON | [address] | | | | | [place] | | | | | [address] | | + + + + + Care Team Providers + +------+ + | Care Sales Enablement Consultant Name | Role | Phone | [...] | +--------+ + + + + | 01/20/ | Telephone | [facility] | Matthew Shukla MD | Results, Pathology | | 2019 | | GASTROENTEROLOGY | [address] [facility] | | | | | [address] [facility] | [place], [place] | | | | | [address] [place], [place] | [address] | | | | | [address] | [phone] | | | | | [phone] | | | +--------+ + + + [...] | + + | Malignant neoplasm of stomach, unspecified location (HCC) - Primary | + + documented in this encounter"
--- OUTSIDE RECORDS SUMMARY | ~2019-09-12 | XMS | Encounter Summary ---
Demographics + + + | Address | [address] | | | [place] [address] | + + + | Home Phone | | + + + | Preferred Language | Unknown | + + + | Marital Status | | + + + | Jehovah'S Witness Affiliation | Unknown | + + + | Race | Unknown | + + + | Ethnic Group | Unknown | + + + Author + + + | Author | [facility] | | | and Nenoana | + + + | Organization | [facility] | | | and Nenoana [...] + | Matthew Ramirez | ECON | [address] | | | | | [place] | | | | | [address] | | + + + + + Care Team Providers + +------+ + | Care System Software Programmer Name | Role | Phone | + [...] | | | unspecified | | [place] [address] | | | | | type | | Phone: | | | | | Chronic | | [phone] | | | | | abdominal | | Fax: | | | | | pain | | [phone] | | | | | Benzodiazepi | [...] | | | | | | | NM | | | | | | | ESOPHAGOGAST | | | | | | | RODUODENOSCO | | | | | | | PY TRANSORAL | | | | | | | DIAGNOSTIC | | | | | | | NM EGD | | | | | | | TRANSORAL | | | | | | | BIOPSY | | | | | | | SINGLE/MULTI | | | | | | | PLE NM | | | | | | | COLONOSCOPY | | | | | | | FLX DX | | | | | | | W/COLLJ SPEC | | | | | | | WHEN PFRMD | | | | | | | NM | | | | | | | COLONOSCOPY | | | | | | | W/BIOPSY | | | | | | | SINGLE/MULTI | | | | | | | PLE NM | | | | | | | COLSC FLX | | | | | | | W/RMVL OF | | | | | | | TUMOR POLYP | | | | | | | LESION SNARE | | | | | | | TQ NM | | | | | | | [...] + + | 12/17/ | [facility] | [facility] | Matthew Shukla MD | EGD | | 2019 | | MED CTR MP INTRA OP | [address] | | | | | [address] | [place] | | | | | [place] | [address] | | | | | [address] | [phone] | | | | | [phone] | | | +--------+---------+ + + + [...] | | | | | episodic use ([facility]) | | | | | [...] 12/17/2018 | [place]OVATION | | 3:06 PMMRN: [id number] #: [id number] of : | | | 1940dmit Type: [...] | | | the anesthesiologist and the cryptologic technician operator/analyst in the pre-procedure | | | area [...] PMScope Out: 3:26:19 | | | PM [facility], [address] | | | [place] [address] | | | - Await pathology results. [...] |Scope Out: 3:26:19 PM | | | [facility], [address] [place], [place] | | | [address] | | + + -+ + +---------+ + + | Performing | Address | City/State[facility] | Phone Number | | Organization | [...] 12/17/2018 | [place] | | 3:04 PMMRN: [id number] #: [id number] of : | | | 1940dmit Type: AmbulatoryAge: 78Room: Endo Room 2Gender: | | | FemaleNote Status: FinalizedAttending MD: Matthew Shukla , | | | MDProcedure: ColonoscopyIndications: Abdominal | | | pain in the left upper quadrant, Hematochezia, | | | Chronic diarrhea, Weight lossProviders: Matthew Rosales | | | MD Gayla, Rina Edouard RN, Conrado Kang [facility], | | | Devon Murdock MD [...] the anesthesiologist and the | | | cryptologic technician operator/analyst in the pre-procedure area in the procedure [...] | | | evaluated using the BBPS (Tuttle Bowel Preparation Scale) with | | | [...] | recommendations were discussed with the patient.Matthew Shkula | | | 12/17/2018 4:05:18 PMThis report has been signed electronically.Number | | | of Addenda: 0Note Initiated On: 12/17/2018 3:04 PMScope Withdrawal | | | Time: 0 hours 16 minutes 43 seconds Scope In: 3:31:39 PMScope Out: | | | 3:55:04 PM [facility], [address] [place] [address], | | | [place] [address] | | | - Await pathology results. [...] |Scope Out: 3:55:04 PM | | | [facility], [address] [facility], [place], [place] | | | [address] | | + + -+ + +---------+ [...] | COMMENT: A -- As part of [facility]' Quality Improvement | | | Program, this portion of the case has been reviewed by another member | | | of our pathology staff with subspecialty training in gastrointestinal | | | pathology. Results called to Dr. Shukla office [facility]) 12/24/18 | | | 10:15 AM. Discussed [...] | and its performance characteristics determined by [facility]. | | | It has not been cleared or approved by the U.S. Food and Drug | | | Administration. The FDA has determined that such clearance or | | | approval is not necessary. This test is used for clinical purposes. | | | It should not be regarded as investigational or for research. | | | [facility] is certified under the Clinical Laboratory | | | Improvement Amendments of 1988 (CLIA) as qualified to perform high | | | complexity clinical laboratory testing. PERFORMING LABORATORY: | | | The technical component was performed by [facility], [address] | | | [place] [address] (Insurance Claims Clerk: Marilyn Dowell MD; | | | CLIA# [id number]). Professional interpretation was performed by | | | [facility], [facility], [address] [place] [address]. | | | [address] [place] [address] (Insurance Claims Clerk: Guevara Ernandez | | | ; CLIA# [id number]). ADDITIONAL NOTES: Immunohistochemical | | | and/or in situ hybridization studies were performed on this case with | | | the appropriate positive controls that react as expected. This test | | | was developed and its performance characteristics determined by | | | [facility]. It has not been cleared or approved by the U.S. | | | Food and Drug Administration. The FDA has determined that such | | | clearance or approval is not necessary. This test is used for | | | clinical purposes. It should not be regarded as investigational or | | | for research. [facility] is certified under the Clinical | | | Laboratory Improvement Amendments of 1988 (CLIA) as qualified to | | | perform high complexity clinical laboratory testing. PERFORMING | | | LABORATORY: The technical component was performed by [facility] | | | [facility], [address] [place] [address] (Insurance Claims Clerk: | | | Marilyn Dowell MD; CLIA# [id number]). Professional interpretation was | | | performed by [facility], [address] | | | [place] [address] (Insurance Claims Clerk: Darien Kapoor D.O.; CLIA#: | | | [id number]). REASON FOR ADDENDUM: To add results of [...] the FDA-approved HER-2 Pathway is performed at [facility] | | | [place], [place], on accession #[id number] from at the request | | | of Dr. Ernandez. Standardized batch control materials react | | [...] the Vysis PathVysion kit was performed at [facility] | | | [place]. The assay has not been validated [...] interpretation was | | | performed by [facility], [address] [facility] [facility] | | | [place] [address] (Insurance Claims Clerk: Darien Kapoor D.O.; CLIA#: | | | [id number]). Diagnostician: Guevara Ernandez MD Pathologist | | [...] [place] [facility] | | | | | [facility] | | | | + +---------+ + [...] ONCE PRN, | | | Wheezing, Starting [facility] 12/17/18 at | | | 1346, For 1 dose, Pre-op | | + +---+ | | | + +---+ | albuterol-ipratropium 2.5-0.5 | | | mg/3 mL nebulizer solution 3 mL | | | 3 mL, Nebulization, ONCE PRN, | | | Wheezing, Shortness of Breath, | | | Starting [facility] 12/17/18 at 1615, For | | | [...]
--- OUTSIDE RECORDS SUMMARY | ~2019-09-12 | XMS | Encounter Summary ---
Demographics + + + | Address | [address] | | | [place] [address] | + + + | Home Phone | | + + + | Preferred Language | Unknown | + + + | Marital Status | | + + + | Nondenominational Affiliation | Unknown | + + + | Race | Unknown | + + + | Ethnic Group | Unknown | + + + Author + + + | Author | [facility] | | | and Nenoana | + + + | Organization | [facility] | | | and Nenoana [...] + | Matthew Ramirez | CHRIS | [address] | | | | | [place] | | | | | [address] | | + + + + + Care Team Providers + +------+ + | Care Zipper Cutter Name | Role | Phone | + +------+ + PCP | Unavailable | + +------+ + Encounter Details +--------+ + + + + | Date | Type | Department | Care Team | Description | +--------+ + + + + | 03/12/ | Hospital | [facility] | | | | 2005 - | Encounter | [facility] OP [facility]AB | | | | | | [address] [place] | | | | 04/17/ | | [place] [address] | | | | 2005 | | [phone] | | | +--------+ + + + [...]
--- OUTSIDE RECORDS SUMMARY | ~2019-09-12 | XMS | Encounter Summary ---
Demographics + + + | Address | [address] | | | [place] [address] | + + + | Home Phone | | + + + | Preferred Language | Unknown | + + + | Marital Status | | + + + | Voodoo Affiliation | Unknown | + + + | Race | Unknown | + + + | Ethnic Group | Unknown | + + + Author + + + | Author | [facility] | | | and Nenoana | + + + | Organization | [facility] | | | and Nenoana [...] + | Matthew Ramirez | ECON | [address] | | | | | [place] | | | | | [address] | | + + + + + Care Team Providers + +------+ + | [facility] [place] Name | Role | Phone | + +------+ + | Ashly Rojo PA-C | PCP | | + +------+ + Reason for Visit + + + | Reason | Comments | + + + | New Patient | Gastric adenocarcinoma | + + + Evaluate & Treat (Urgent) +--------+ + + + + + | Status | Reason | Specialty | Diagnoses / | Referred By | Referred To | | | | | Procedures | Contact | Contact | +--------+ + + + + + | Closed | Specialty | Surgery / | Diagnoses | [facility] | [facility] | | | Services | General | 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 | General | | | Required | Surgery | adenocarcino | [address] | Surgery [address] | | | | | [address]hargav ([facility]) | [address] | | | | | | [place], [place] | [place], | | | | | | [address] | [place] [address] | | | | | | Phone: | Phone: | | | | | | [phone] | [phone] | | | | | | Fax: | Fax: | | | | | | [phone] | [phone] | +--------+ + + + + + Encounter Details +--------+---------+ + + + | Date | Type | Department | Care Team | Description | +--------+---------+ + + + | 01/07/ | Office | [facility] | Ana Mendez MD | Gastric | | 2019 | Visit | SURGERY [address] | [address] [facility] | adenocarcinoma (HCC) | | | | [place], [place] | [place] [address] | (Primary Dx) | | | | [address] | [phone] | | | | | [phone] | | | +--------+---------+ + + + [...] +---------+ + | Yes | | | occasionally | + + +---------+ + + + [...] + + + | Blood Pressure | 120/60 | 01/07/2019 2:20 PM | | | | | PDT | | + + + + + | Pulse | 64 | 01/07/2019 2:20 PM | | | | | PDT | | + + + + + | Temperature | 35.8 C (96.5 F) | 01/07/2019 2:20 PM | | | | | PDT | | + + + + + | Respiratory Rate | - | - | | + + + + + | Oxygen Saturation | 97% | 01/07/2019 2:20 PM | | | | | PDT | | + + + + + | Inhaled Oxygen | - | - | | | Concentration | | | | + + + + + | Weight | 86 kg (189 lb 9.5 | 01/07/2019 2:20 PM | | | | oz) | PDT | | + + + + + | Height | 175.3 cm (5' 9.02") | 01/07/2019 2:20 PM | | | | | PDT | | + + + + + | Body Mass Index | 27.99 | 01/07/2019 2:20 PM | | | | | PDT | | + + + + + documented in this encounter Progress Notes Ana Mendez MD - 01/07/2019 2:30 PM PDT Consult Note Referring Provider: Matthew Shukla MD HISTORY OF PRESENT ILLNESS Ashly Ramirez is a 78 y.o. female patient of Ashly Rojo PA-C here today for evalua tion of Gastric adenocarcinoma . Physician notes: Ashly is an 78-year-old female here for new diagnosis of gastric adenocarcinoma. She also has a history of IBS, fibromyalgia, and sigmoid colectomy for recurrent diverticulitis in 29 07. Recently, patient had increasing complaints of left upper quadrant abdominal pain, diar yvrose, and bloody stools. She was taken for a EGD and colonoscopy by Dr. Shukla on 12/17/2018. The appearance of the stomach showed diffuse gastritis. The biopsy labeled stomach mucosa was positive for infiltrating signet ring gastric adenocarcinoma with a background of mild c hronic gastritis. Biopsies from the duodenum, antrum, and GE junction were negative for sig net ring carcinoma. Colon biopsies were also negative. She had a CT scan of the chest/abdo men/pelvis on 12/31/2018. There was no concerning gastric mass identified or findings to sug gest metastatic disease. There is a lipoma within the anterior wall of the gastric antrum. Recent labs from 12/30/2018 demonstrate WBC of 6.5, hemoglobin 13, platelets 230 and LFTs al l within normal limits. JAMEEL Score: 3 JAMEEL Risk Score 01/07/2019 Risk for Obstructive Sleep Apnea Suspected Risk for JAMEEL Opioid Risk Tool (ORT): Total Score 1 (01/07/19 1406) Interpretation of Total Score: 0 to 3 = Low risk: 6% chance of developing problematic behav iors, 4 to 7 = Moderate risk: 28% chance of developing problematic behaviors, 8 or more = Hi gh risk: 90% chance of developing problematic behaviors. Imaging/ Pathology: SPECIMEN SOURCE: A. GASTRIC BIOPSY B. DUODENAL BIOPSY C. GASTRIC ANTRUM D. GE JUNCTION E. ASCENDING COLON F. TRANSVERSE COLON G. DESCENDING COLON H. SIGMOID POLYP FINAL PATHOLOGIC DIAGNOSIS: A. Mucosa, stomach, biopsy: - Infiltrating signet ring gastric adenocarcinoma (See comment). - Background of mild inactive chronic gastritis. - Negative for the presence of bacteria morphologically consistent with Helicobacter on H E-stained sections. B. Mucosa, duodenum, biopsy: - Small intestinal mucosa with normal villous architecture, no microscopic pathologic aparna gnosis. C. Mucosa, antrum, biopsy: - Mild inactive chronic gastritis. - Negative for signet ring carcinoma. - Negative for the presence of bacteria morphologically consistent with Helicobacter on H E-stained sections. D. Mucosa, gastroesophageal junction, biopsy: - Glandular mucosa with mild chronic inflammation. - Negative for signet ring carcinoma. E. Mucosa, ascending colon, biopsy: - Minimal intramucosal hemorrhage and mild chronic colitis without other distinguishing f eatures. F. Mucosa, transverse colon, biopsy: - No microscopic pathologic diagnosis. G. Mucosa, descending colon, biopsy: - No microscopic pathologic diagnosis. H. Mucosa, sigmoid colon, biopsy: - Tubular adenoma. COMMENT: A -- As part of [facility] Quality Improvement Program, this portion of the case h as been reviewed by another member of our pathology staff with subspecialty training in lisa rointestinal pathology. Results called to Dr. Shukla office ([place]) 12/24/18 10:15 AM. Discussed results on specimen A with Dr. Shukla 12/10`09/27 2:15 PM. LJA:smn:C2NR CT Chest abdomen pelvis on 12/31/18 FINDINGS: BONES: No osteoblastic or osteolytic lesion. [...] Dictated and Signed by: Jose Snyder MD Electronically signed: 12/31/2018 Ashly Rojo PA-C's notes were reviewed in clinic today as well as notes from Dr. Shukla. PAST MEDICAL HISTORY Past Medical History: Diagnosis Date Abdominal pain Abnormal Hepatic Enzyme Acid reflux Acute reaction to stress Allergic rhinitis Anxiety disorder Arthritis Benign paroxysmal positional vertigo Benign paroxysmal vertigo Bladder irritability Bronchitis Cataract, right eye Cervical cancer (HCC) Chronic sinusitis Complete intestinal obstruction, unspecified as to cause (HCC) COPD, mild (HCC) Diverticulitis Dizziness Esophageal reflux Essential hypertension Eustachian tube dysfunction, left Fatigue Fibromyalgia H/O alcohol abuse H/O: depression Heart murmur History of alcohol abuse History of cervical cancer History of depression Hyperlipidemia Hypertension Hypothyroidism IBS (irritable bowel syndrome) Irritable bowel disease Left lower quadrant pain Mitral regurgitation Moderate persistent asthma Neoplasm of uncertain behavior of skin Osteoarthritis Primary localized osteoarthritis of left knee Sepsis (HCC) 2016 Hx of urosepsis and sepsis Sinus infection Thyroid activity decreased Vertigo Vision loss of left eye secondary to amblyopia as a child Past Surgical History: Procedure Laterality Date APPENDECTOMY 1950 ARTHROPLASTY Left 02/13/2018 Procedure: ARTHROPLASTY 3rd and 4th Digits with Impalnt Revision; Surgeon: Jose Randall DPM; Location: [facility] BLADDER REPAIR 1971 BLADDER SUSPENSION 2007 CARPAL TUNNEL RELEASE Bilateral CATARACT REMOVAL Right 03/2016 CHOLECYSTECTOMY, LAPAROSCOPIC 1997 COLECTOMY 2004 recurrent diverticulitis COLONOSCOPY 01/2018 One diminutive polyp COLONOSCOPY N/A 12/17/2018 Procedure: COLONOSCOPY; Surgeon: Matthew Shukla MD; Location: [facility] FINGER SURGERY Left 2007 Thumb surgery for osteoarthritis FINGER SURGERY Left 11/2008 FINGER SURGERY Right 04/2012 Thumb surgery HAMMER TOE SURGERY Right 03/06/2017 Procedure: Correction Hammer Toes 2nd , 3rd, and 4th Toes; Surgeon: ANNIE Cuevas; Location: [facility] SURGERY HAMMER TOE SURGERY Left 07/04/2017 Procedure: CORRECTION HAMMERTOES 2, 3, 4; Surgeon: Jose Randall DPM; Location: [facility] SURGERY HAMMER TOE SURGERY Left 2018 x3 KNEE ARTHROSCOPY Right 2001 PUBOVAGINAL SLING 10/16/2010 TVT Retropubic sling at [facility] SIGMOID COLECTOMY 12/20/2002 Franck Davis MD - [facility] AND O 1996 TONSILLECTOMY AND ADENOIDECTOMY 1948 TOTAL KNEE ARTHROPLASTY Right 07/11/2011 TUBAL LIGATION 1976 UPPER GASTROINTESTINAL ENDOSCOPY N/A 12/17/2018 Procedure: EGD; Surgeon: Matthew Shukla MD; Location: [facility] PROC[facility]URE UNIT URETHROPEXY 07/11/2010 Revision sling urethropexy Allergies: Allergies Allergen Reactions Sulfa Antibiotics Anaphylaxis Codeine Sulfate Medications: Outpatient Encounter Medications as of 01/07/2019 Medication Sig Dispense Refill acetaminophen (TYLENOL 8 HOUR ARTHRITIS PAIN) 650 MG CR tablet Take 650 mg by mouth abraham ry 8 hours as needed for Pain. albuterol (PROAIR HFA) 90 mcg/puff inhaler 2 puffs every 4 to 6 hours as needed ALPRAZolam (XANAX) 0.25 mg tablet Take 0.25 mg by mouth as needed. Ascorbic Acid (VITAMIN C) 1000 MG tablet Take 1,000 mg by mouth Daily. Calcium Carbonate-Vitamin D (CALCIUM + D) 600-200 MG-UNIT TABS 2 tablets by mouth daily cholecalciferol (VITAMIN D-3) 1000 UNITS TABS Take 1,000 Units by mouth Daily. Cinnamon 500 MG CAPS Take 500 mg by mouth. doxepin (SINEQUAN) 75 MG capsule 2 capsules by mouth at bedtime DULoxetine (CYMBALTA) [address] capsule fish oil 1,000 mg capsule Take 1,000 mg by mouth Daily. fluticasone (FLONASE) 50 mcg/nasal spray fluticasone propionate 50 mcg/actuation nasal spray,suspension current fluticasone-salmeterol (ADVAIR DISKUS) 250-50 mcg/puff diskus inhaler Advair Diskus 250 mcg-50 mcg/dose powder for inhalation folic acid (FOLVITE) 800 MCG tablet Take 800 mcg by mouth. Wcvgkuhzxze-Apcwgmztd-Ewl C-Mn (GLUCOSAMINE CHONDR 500 COMPLEX) CAPS 2 capsules by mout h daily levothyroxine (SYNTHROID, LEVOTHROID) 112 mcg tablet Take 112 mcg by mouth Daily. lisinopril (PRINIVIL, ZESTRIL) 20 mg tablet Take 20 mg by mouth Daily. meloxicam (MOBIC) 15 mg tablet Take 15 mg by mouth Daily. oxyCODONE-acetaminophen (PERCOCET) 5-325 mg per tablet 1 to 2 tablets by mouth every 8 hours as needed vitamin B-12 (CYANOCOBALAMIN) 1000 MCG tablet Take 1,000 mcg by mouth Daily. No facility-administered encounter medications on file as of 01/07/2019. Family History Problem Relation Age of Onset Heart failure Mother Other (see comment) Mother multiple myeloma Other (see comment) Father Multiple myeloma Breast cancer Sister Both breast Cancer Sister Cervical Cancer Brother throat cancer Cancer Daughter 61 breast cancer Social History Socioeconomic History Marital status: Spouse name: Not on file Number of children: Not on file Years of education: Not on file Highest education level: Not on file Tobacco Use Smoking status: Former Smoker Smokeless tobacco: Never Used Substance and Sexual Activity Alcohol use: Yes Comment: occasionally Drug use: Never REVIEW OF SYSTEMS: Unmarked boxes mean negative response. General: []Weight loss/gain (over 10 lbs) []Fever/chills []Night sweats Hematologic: []Bleeding/brusing tendencies []Blood transfusion []Anemia Heent: []Vision loss []Hearing loss []Sinus problems/nose bleeds []Hoarseness Respiratory: []Wheezing [x]Shortness of breath [x]Cough []Spitting up blood []On oxygen []Use CPAP machine Cardiac: []Chest pain []Palpitations/heart racing []Swelling of ankles/hands []Unusual shortness of breath []Difficulty sleeping flat Gastrointestinal: []Nausea/vomiting []Difficulty swallowing [x]Heartburn []Loss of appetite []Abdominal pain [x]Stoma ch Ulcers []Diarrhea [x]Constipation []B lack or bloody stools Vascular: []Strokes/TIAs []Fainting []Difficulty with speech []Leg cramps [x]Pain in feet/legs at rest []Foot ulcers/s ores [x]Varicose veins []Phlebitis/blood clots Musculoskeletal: []Joint stiffness/swelling [x]Joint pain [x]Back pain [x]Arthritis []Gout Urologic: []Blood in urine [x]Frequent urination at night []Burning/painful urination []Kidney stones []Difficult urination []Sexual difficulties Neuro/Psychiatric: []Headaches []Seizures []Depression [x]Anxiety attacks [x]Memory loss or confusion PHYSICAL EXAM BP 120/60 | Pulse 64 | Temp 35.8 C (96.5 F) (Temporal) | Ht 1.753 m (5' 9.02") | Wt 86 kg (189 lb 9.5 oz) | SpO2 97% | BMI 27.99 kg/m Gen Diane - alert, cooperative and no distress Head - normocephalic, without obvious abnormality, atraumatic Eyes - PERRL, conjunctiva/corneas clear, EOM's intact both eyes, sclera non-icteric ENT - mucous membranes moist Neck - trachea midline Lungs - no respiratory distress, no wheezing Heart - regular rate and rhythm Abdomen - soft, nondistended and Tender to palpation in the left upper quadrant Extremities - no tenderness, no deformities Integument - well hydrated, no obvious lesions on exposed skin, non-icteric Neurologic - alert and oriented, CN II-XII grossly intact. Psychiatric - speech and behavior appropriate, normal affect Assessment /Plan Ashly was seen today for new patient. Diagnoses and all orders for this visit: Gastric adenocarcinoma (HCC) I discussed the case with Dr. Shukla. He has put in an urgent referral to [facility] erologist for a repeat EGD with additional biopsies for gastric mapping and EUS. He stated that in discussion with pathology, the biopsy was concerning for possible early lienitis reva stica. Discussed with the patient that the location of the gastric cancer will ultimately d ictate the type of surgery (distal versus subtotal versus total gastrectomy). Will follow u p on repeat biopsies and EUS. Ana Mendez MD CC PCP: Ashly Rojo PA-C Portions of this chart may have been created with [employer] voice recognition software. Occasi onal wrong-word or sound-alike substitutions may have occurred due to the inherent hidalgo itations of voice recognition software. Please read the chart carefully and recognize, using context, where these substitutions have occurred. documented in this encounter Plan of Treatment Not on filedocumented as of this encounter Visit Diagnoses + + | Diagnosis | + + | Gastric adenocarcinoma (HCC) - Primary Malignant neoplasm of stomach, unspecified | | site | + + documented in this encounter
--- OUTSIDE RECORDS SUMMARY | ~2019-09-12 | XMS | Encounter Summary ---
Demographics + + + | Address | [address] | | | [place] [address] | + + + | Home Phone [...] + + + | Author | [facility] | + + + | Organization | [facility] | + + + | Address | Unknown | + + + | Phone | Unavailable | + + + Support + + + + + | Name | Relationship | Address | Phone | + + + + + | Matthew Ramirez | CHRIS | [address] | | | | | [place] | | | | | [address] | | + + + + + | Nella Haque | ECON | Unknown | | + + + + + Care Team Providers + +------+ + | Care Baggage Checker Name | Role | Phone | + +------+ + | Long Copeland MD | PCP | | + +------+ + Reason for Visit + + + | Reason | Comments | + + + | Medication | Acetaminophen adjustment | | Adjustment | | + + + Encounter Details +--------+ + + + + | Date | Type | Department | Care Team | Description | +--------+ + + + + | 08/02/ | Telephone | [facility] | Rodriguez Bower MD | Medication | | 2020 | | Clinics at S | [address] | Adjustment | | | | [facility] | [place], [place] | (Acetaminophen | | | | for Health and | [address] | adjustment ) | | | | Healing [address] | [phone] | | | | | [place], [place] | | | | | | [address] | | | | | | [phone] | | | +--------+ + + + [...]
--- OUTSIDE RECORDS SUMMARY | ~2019-09-12 | XMS | Encounter Summary ---
Demographics + + + | Address | [address] | | | [place] [address] | + + + | Home Phone | | + + + | Preferred Language | Unknown | + + + | Marital Status | | + + + | Voodoo Affiliation | NRP | + + + | Race | White | + + + | Ethnic Group | Not or | + + + Author + + + | Author | [facility] | + + + | Organization | [facility] | + + + | Address | Unknown | + + + | Phone | Unavailable | + + + Support + + + + + | Name | Relationship | Address | Phone | + + + + + | Matthew Ramirez | CHRIS | [address] | | | | | [place] | | | | | [address] | | + + + + + | Nella Haque | ECON | Unknown | | + + + + + Care Team Providers + +------+ + | Care Coating Manager Name | Role | Phone | [...] Clinics at S | [address] [facility] | | | | | [facility] | [place], [place] | | | | | [facility] and | [address] | | | | | Healing [address] | [phone] | | | | | [address] [place], [place] | | | | | | [address] | | | | | | [phone] | | | +--------+--------+ + + + [...]
--- OUTSIDE RECORDS SUMMARY | ~2019-09-12 | XMS | Encounter Summary ---
Demographics + + + | Address | [address] | | | [place] [address] | + + + | Home Phone | | + + + | Preferred Language | Unknown | + + + | Marital Status | | + + + | Hinduism Affiliation | NRP | + + + [...] + | Matthew Ramirez | CHRIS | [address] | | | | | [place] | | | | | [address] | | + + + + + | Nella Haque | ECON | Unknown | | + + + + + Care Team Providers + +------+ + | Care Roller Name | Role | Phone | + +------+ + | Long Copeland MD | PCP | | + +------+ + Reason for Referral Diagnostic Testing (Urgent) + +--------+ + + + + | Status | Reason | Specialty | Diagnoses / | Referred By | Referred To | | | | | Procedures | Contact | Contact | + +--------+ + + + + | New Request | | Radiology | Diagnoses | Cristel Galicia | | | | | | Gastric | MD Luh Richards | | | | | | adenocarcino | [address] | | | | | | ma (HCC) | [place], | | | | | | Procedures | [place] | | | | | | CT ABDOMEN | [address] | | | | | | AND PELVIS W | Phone: | | | | | | IV CONTRAST | [phone] | | | | | | | Fax: | | | | | | | [phone] | | + +--------+ + + + + Reason for Visit Diagnostic Testing (Urgent) + +--------+ + + + + | Status | Reason | Specialty | Diagnoses / | Referred By | Referred To | | | | | Procedures | Contact | Contact | + +--------+ + + + + | New Request | | Radiology | Diagnoses | Cristel Galicia | | | | | | Gastric | MD [address] | | | | | | adenocarcino | [address] | | | | | | ma (HCC) | [place], | | | | | | Procedures | [place] | | | | | | CT ABDOMEN | [address] | | | | | | AND PELVIS W | Phone: | | | | | | IV CONTRAST | [phone] | | | | | | | Fax: | | | | | | | [phone] | | + +--------+ + + + + Encounter Details +--------+ + + + + | Date | Type | Department | Care Team | Description | +--------+ + + + + | 02/02/ | Hospital | Radiology/Imaging | Cristel Galicia MD | | | 2019 | Encounter | Lab at [facility] [address] | [address] | | | | | [address] Mailcode: | [place], [place] | | | | | [address] | [address] | | | | | Health and Healing, | [phone] | | | | | [address] | | | | | | Floor [facility] [place] | | | | | | [address] | | | | | | [phone] | | | +--------+ + + + [...] at Time of Discharge + + + +---------+--------+ + | Medication | Sig | Dispensed | Refills | Start | End Date | | | | | | Date | | + + + +---------+--------+ + | ascorbic acid SR | Take 1,000 mg by | | 0 | | | | (VITAMIN C) 1,000 mg | mouth two times | | | | | | Oral Tablet | daily. | | | | | + + + +---------+--------+ + | CALCIUM | Take by mouth. | | 0 | | | | CARBONATE/VITAMIN D3 | | | | | | | (CALCIUM 600 + D | | | | | | | OR) | | | | | | + + + +---------+--------+ + | cyanocobalamin | Take 5,000 mcg by | | 0 | | | | (VITAMIN B-12) 1,000 | mouth once daily. | | | | | | mcg Oral Tablet | | | | | | + + + +---------+--------+ + | doxepin 75 mg Oral | Take 10 mg by mouth | | 0 | | | | Capsule | once daily at | | | | | | | bedtime. | | | | | + + + +---------+--------+ + | DULoxetine | Take 60 mg by mouth | | 0 | | | | (CYMBALTA) 60 mg | once daily. | | | | | | Oral Capsule, | | | | | | | Delayed | | | | | | | Release(E.C.) | | | | | | + + + +---------+--------+ + | levothyroxine | Take 112 mcg by | | 0 | | | | (LEVOTHROID) 112 mcg | mouth once daily. | | | | | | Oral Tablet | | | | | | + + + +---------+--------+ + | lisinopril 20 mg | Take 20 mg by mouth | | 0 | | | | Oral Tablet | once daily. | | | | | + + + +---------+--------+ + | triamcinolone 55 | Instill 2 Sprays | | 0 | | | | mcg Nasal Aerosol, | into each nostril | | | | | | [place] | once daily. | | | | | + + + +---------+--------+ + documented as of this encounter Plan of Treatment Not on filedocumented as of this encounter Procedures + +--------+ + + + | Procedure Name | Priori | Date/Time | Associated Diagnosis | Comments | | | ty | | | | + +--------+ + + + | CT ABDOMEN AND | Urgent | 02/02/2019 | Gastric | Results for this | | PELVIS W IV CONTRAST | | 4:54 PM | adenocarcinoma (HCC) | procedure are in the | | | | PDT | | results section. | + +--------+ + + + | CREATININE, POC | Routin | 02/02/2019 | Gastric | Results for this | | | e | 4:15 PM | adenocarcinoma (HCC) | procedure are in the | | | | PDT | | results section. | + +--------+ + + + documented in this encounter Results CT ABDOMEN AND PELVIS W IV CONTRAST (02/02/2019 4:54 PM PDT) + + | Specimen | + + | | + + + + + | Narrative | Performed At | + + + | EXAM: CT of the abdomen and pelvis WITH intravenous contrast. | [facility] | | HISTORY: Hx of gastric adenocarcinoma, eval for surgical options. | RADIOLOGY VOICE | | COMPARISON: Outside CT chest abdomen and pelvis 12/31/2018. | RECOGNITION 2 | | TECHNIQUE: CT of the abdomen and pelvis with non-ionic iodinated | | | intravenous contrast. Coronal and sagittal reformats were generated | | | and reviewed. FINDINGS: LOWER THORAX: Unremarkable. LIVER: | | | Small, well-circumscribed hepatic dome hypodensity is stable, likely a | | | small cyst. BILIARY: Intrahepatic and extrahepatic biliary duct | | | dilation with common duct measuring up to 2.2 cm, unchanged and likely | | | secondary to prior cholecystectomy versus occult stones. The | | | gallbladder is surgically absent. PANCREAS: Marked fatty | | | infiltration, no mass or ductal dilation. SPLEEN: Unremarkable. | | | ADRENALS: Unremarkable. KIDNEYS/URETERS: Unremarkable. PELVIC | | | ORGANS/BLADDER: The uterus is surgically absent. Postsurgical changes | | | of prior bladder suspension surgeries. GI TRACT: Unchanged | | | appearance of 9 x 11 mm gastric antral lipoma. The appendix is | | | surgically absent. Stable changes of prior partial colectomy. No | | | suspicious mass identified. PERITONEUM: No free air or fluid. | | | LYMPH NODES: There is a 14 x 10 mm lymph node at the gastrohepatic | | | ligament (axial 33) that is slightly enlarged from previously measured | | | 12 x 8 mm and has border irregularity. VESSELS: Moderate | | | atherosclerotic calcifications. BONES AND SOFT TISSUES: Multilevel | | | degenerative disc disease. IMPRESSION: Since 12/31/2018, | | | irregular gastrohepatic lymph node mildly suspicious for metastatic | | | disease. I have personally reviewed the images and, if necessary, | | | edited the report. I agree with the report as now presented. | | | Final signature: Gatito Ruelas MD 02/03/2019 9:53 AM | | | Preliminary: Nataliya Moise MD 02/03/2019 9:23 AM Dictation | | | initiated: Nataliya Moise MD 02/03/2019 8:07 AM | | + + + + + | Procedure Note | + + | Service Account, Radiant Res In Interface - 02/03/2019 9:54 AM PDT EXAM: CT of the | | abdomen and pelvis WITH intravenous contrast. HISTORY: Hx of gastric adenocarcinoma, | | eval for surgical options. COMPARISON: Outside CT chest abdomen and pelvis 12/31/2018. | | TECHNIQUE: CT of the abdomen and pelvis with non-ionic iodinated intravenous contrast. | | Coronal and sagittal reformats were generated and reviewed. FINDINGS:LOWER THORAX: | | Unremarkable. LIVER: Small, well-circumscribed hepatic dome hypodensity is stable, | | likely a small cyst.BILIARY: Intrahepatic and extrahepatic biliary duct dilation with | | common duct measuring up to 2.2 cm, unchanged and likely secondary to prior | | cholecystectomy versus occult stones. The gallbladder is surgically absent.PANCREAS: | | Marked fatty infiltration, no mass or ductal dilation. SPLEEN: Unremarkable.ADRENALS: | | Unremarkable.KIDNEYS/URETERS: Unremarkable.PELVIC ORGANS/BLADDER: The uterus is | | surgically absent. Postsurgical changes of prior bladder suspension surgeries. 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 The appendix is surgically | | absent. Stable changes of prior partial colectomy. No suspicious mass | | identified.PERITONEUM: No free air or fluid. LYMPH NODES: There is a 14 x 10 mm lymph | | node at the gastrohepatic ligament (axial 33) that is slightly enlarged from previously | | measured 12 x 8 mm and has border irregularity.VESSELS: Moderate atherosclerotic | | calcifications. BONES AND SOFT TISSUES: Multilevel degenerative disc disease. | | IMPRESSION: Since 12/31/2018, irregular gastrohepatic lymph node mildly suspicious for | | metastatic disease. I have personally reviewed the images and, if necessary, edited the | | report. I agree with the report as now presented. Final signature: Gatito Ruelas MD | | 02/03/2019 9:53 AM Preliminary: Nataliya Moise MD 02/03/2019 9:23 AM Dictation | | initiated: Nataliya Moise MD 02/03/2019 8:07 AM | |LYMPH NODES: There is a 14 x 10 mm lymph node at the gastrohepatic ligament (axial 33) that is slightly enlarged from previously measured 12 x 8 mm and has border irregularity. | |VESSELS: Moderate atherosclerotic calcifications. | | | |BONES AND SOFT TISSUES: Multilevel degenerative disc disease. | | | |IMPRESSION: | | | |Since 12/31/2018, irregular gastrohepatic lymph node mildly suspicious for metastatic diseas e. | | | |I have personally reviewed the images and, if necessary, edited the report. I agree with th e report as now presented. | | | |Final signature: Gatito Ruelas MD 02/03/2019 9:53 AM | |Preliminary: Nataliya Moise MD 02/03/2019 9:23 AM | |Dictation initiated: Nataliya Moise MD 02/03/2019 8:07 AM | + + + +---------+ + + | Performing | Address | City/State/Zipcode | Phone Number | | Organization | | | | + +---------+ + + | [facility] | | | | | VOICE RECOGNITION 2 | | | | + +---------+ + + CREATININE, POC (02/02/2019 4:15 PM PDT) + +---------+ + + + | Component | Value | Ref Range | Performed | Pathologist | | | | | At | Signature | + +---------+ + + + | CREATININE, | 1.2 (H) | 0.6 - 1.1 mg/dL | [facility], | | | POC | | | POINT OF | | | | | | CARE TESTS | | + +---------+ + + + + + | Specimen | + + | Blood - Blood | | (substance) | + + + + + + + | Performing | Address | City/State/Zipcode | Phone Number | | Organization | | | | + + + + + | [facility] | [address] [facility] | [place] [address] | | | OF CARE TESTS | | | | + + + + + documented in this encounter Visit Diagnoses + + | Diagnosis | + + | Gastric adenocarcinoma (HCC) Malignant neoplasm of stomach, unspecified site | + + documented in this encounter Administered Medications + +---------+ +--------+------+------+ | Medication Order | MAR | Action | Dose | Rate | Site | | | Action | Date | | | | + +---------+ +--------+------+------+ | iohexol (OMNIPAQUE) 350 mg | IV Push | 02/03/20 | 100 mL | | | | iodine/mL injection 100 mL 100 | | 19 4:54 | | | | | mL, intravenous, ONCE, 1 dose, | | PM PDT | | | | | 02/02/19 at 1730 | | | | | | + +---------+ +--------+------+------+ +---+---+ | | | +---+---+ documented in this encounter"
--- OUTSIDE RECORDS SUMMARY | ~2019-09-12 | XMS | Encounter Summary ---
Demographics + + + | Address | [address] | | | [place] [address] | + + + | Home Phone | | + + + | Preferred Language | Unknown | + + + | Marital Status | | + + + | Spiritism Affiliation | Unknown | + + + | Race | Unknown | + + + | Ethnic Group | Unknown | + + + Author + + + | Author | [facility] | | | and [place] | + + + | Organization | [facility] | | [...] + | Matthew Ramirez | ECON | [address] | | | | | [place] | | | | | [address] | | + + + + + Care Team Providers + +------+ + | Care Senior Financial Reporting Analyst Name | Role | Phone | + +------+ + | Ashly Rojo PA-C | PCP | | + +------+ + Reason for Referral Evaluate & Treat (Routine) +--------+ + + + + + | Status | Reason | Specialty | Diagnoses / | Referred By | Referred To | | | | | Procedures | Contact | Contact | +--------+ + + + + + | Closed | Specialty | Surgical | Diagnoses | | | | | Services | Oncology | Linitis | Arpan, | Ochoa, | | | Required | | plastica | Luis Richards, | Clinton Stringer, | | | | | ([facility]) | MD [address] | MD [address] | | | | | [address] | [address] | | | | | | [place], | [place], [place] | | | | | | [place] [address] | [address] | | | | | | Phone: | Phone: | | | | | | [phone] | [phone] | | | | | | Fax: | Fax: | | | | | | [phone] | [phone] | +--------+ + + + + + Encounter Details +--------+ + + + + | Date | Type | Department | Care Team | Description | +--------+ + + + + | 01/25/ | Orders Only | [facility] | Arpan, | Linitis plastica | | 2019 | | [facility] | Luis Richards MD [address] | ([facility]) (Primary Dx) | | | | [facility] [address] [place] | | | | | [address] [place] | [place] [address] | | | | | [place] [address] | [phone] | | | | | [phone] | | | +--------+ + + + [...] | + + +--------+ + + | Surgical Oncology, | Outpatient | Routin | Linitis plastica | Ordered: 01/25/2019 | | External - AMB | Referral | e | (HCC) | | | Referral | | | | | + + +--------+ + + documented as of this encounter Visit Diagnoses + + | Diagnosis | + + | Linitis plastica (HCC) - Primary Malignant neoplasm of stomach, unspecified site | + + documented in this encounter"
--- OUTSIDE RECORDS SUMMARY | ~2019-09-12 | XMS | Encounter Summary ---
Demographics + + + | Address | [address] | | | [place] [address] | + + + | Home Phone | | + + + | Preferred Language | Unknown | + + + | Marital Status | | + + + | Faith Affiliation | NRP | + + + [...] + | Matthew Ramirez | CHRIS | [address] | | | | | [place] | | | | | [address] | | + + + + + | Nella Haque | ECON | Unknown | | + + + + + Care Team Providers + +------+ + | Care Clinical Advisor Name | Role | Phone | [...] Clinics at S | [address] [facility] | | | | | [facility] | [place], [place] | | | | | [facility] and | [address] | | | | | Healing [address] | [phone] | | | | | [address] [place], [place] | | | | | | [address] | | | | | | [phone] | | | +--------+--------+ + + + [...]
--- OUTSIDE RECORDS SUMMARY | ~2019-09-12 | XMS | Encounter Summary ---
Demographics + + + | Address | [address] | | | [place] [address] | + + + | Home Phone | | + + + | Preferred Language | Unknown | + + + | Marital Status | | + + + | Rastafarian Affiliation | Unknown | + + + | Race | Unknown | + + + | Ethnic Group | Unknown | + + + Author + + + | Author | [facility] | | | and Nenoana | + + + | Organization | [facility] | | | and Nenoana [...] + | Matthew Ramirez | ECON | [address] | | | | | [place] | | | | | [address] | | + + + + + Care Team Providers + +------+ + | Care Cost Recorder Name | Role | Phone | + [...] | | | | | | | Other | | | | | | | hammer | | | | | | | toe(s) | | | | | | | (acquired), | | | | | | | left foot | | | | | | | Procedures | | | | | | | MI REPAIR | | | | | | | OF | | | | | | | MAINON | | | | | | | E | | | | | | | CORRECTION | | | | | | | MARSHA | | | | | | | 2, 3, 4 | | | +--------+--------+ + + + + Encounter Details +--------+ + + + + | Date | Type | Department | Care Team | Description | +--------+ + + + + | 07/04/ | Anesthesia | [facility] | Mayank Honeycutt, | | | 2018 | Event | HOSP[facility] OP | PALLIATIVE CARE PHYSICIAN [address] | | | | | [address] | [place] [address] | | | | | [place], [place] | [phone] | | | | | [address] | | | | | | [phone] | | | +--------+ + + + + Anesthesia Record + + + + + | Procedure Name | Responsible | Anesthesia Start | Anesthesia Stop Time | | | Anesthesiologist | Time | | + + + + + | CORRECTION | Mayank Honeycutt, | 07/04/17 0912 | 07/04/17 1022 | | MARSHA 2, 3, 4 | PALLIATIVE CARE PHYSICIAN | | | | (Left Foot) | | | | + + + + + +----+---+ + + | Da | T | Event | Comment | | te | i | | | | | m | | | | | e | | | +----+---+ + + | 02 | 0 | | | | /2 | 9 | | | | 3/ | 0 | | | | 20 | 1 | | | | 18 | | | | +----+---+ + + | | 0 | An Checkout | Pre-use anesthesia machine/equipment checkout. | | | 9 | | | | | 1 | | | | | 2 | | | +----+---+ + + | | 0 | An Start | Reassessment prior to anesthesia induction/procedure. | | | 9 | | | | | 1 | | | | | 2 | | | +----+---+ + + | | 0 | Breathing | | | | 9 | Spontaneous | | | | 1 | ly | | | | 7 | | | +----+---+ + + | | 0 | First | | | | 9 | Inc/Proc St | | | | 2 | | | | | 9 | | | +----+---+ + + | | 1 | Moving | | | | 0 | Purposefull | | | | 2 | y | | | | 0 | | | +----+---+ + + | | 1 | An Stop | Patient handed off to recovery nurse. | | | 2 | | | | | 2 | | | +----+---+ + + +------+ | Meds | +------+ + +--------+ | Name | Total | + +--------+ | midazolam 1 mg/mL (2 mL vial) | 2 mg | + +--------+ | fentaNYL | 75 mcg | + +--------+ | propofol | 40 mg | + +--------+ | propofol | 216 mg | + +--------+ | lidocaine (PF) injection 2% | 60 mg | + +--------+ | metoprolol | 5 mg | + +--------+ | ketorolac (30 mg/mL) | 15 mg | + +--------+ | ondansetron | 4 mg | + +--------+ | ceFAZolin in dextrose (ANCEF) | 2 g | | IVPB 2 g | | + +--------+ | lactated ringers (LR) infusion | 600 mL | + +--------+ + + | Name | + + | N2O Flow Rate (L/Min) | + + | O2 Flow Rate (L/Min) | + + | Insp O2 | + + | Exp N2O | + + | Exp SEV | + + | Exp ISO | + + | Exp MATTY | + + | Air Flow Rate (L/Min) | + + + + | No blood administrations on file. | + + +--------+ + + + | Type | Details | Placement | Removal | +--------+ + + + | Periph | 07/04/17; 0855; Left; | 07/04/17 0855 by | 07/04/173 by | | nicolas | Antecubital; 20 gauge; 0; | China Rao RN | China Rao RN | | IV | catheter/device intact; short | | | | | term use; 07/04/17; 1133 | | | +--------+ + + + | Read | 07/04/17; 937; Left; foot; | 07/04/17 0938 by | 08/04/18 1342 by | | only - | 08/04/18 (Completed/Removed by | Jessica Mckeon RN | User Epic | | | Utility); 1342 (Completed/Removed | | | | Incisi | by Utility) | | | | on | | | | +--------+ + + + | Drain/ | 07/04/17; 51; #1; Left; foot; | 07/04/17950 by | 08/03/18 1643 by | | Device | evacuation tube; 08/03/18 | Jessica Mckeon RN | User Epic | | Site | (Removed/Completed by utility); | | | | | 1643 (Removed/Completed by | | | | | utility) | | | +--------+ + + + [...] in this encounter Administered Medications + +--------+ +------+------+------+ | Medication Order | MAR | Action | Dose | Rate | Site | | | Action | Date | | | | + +--------+ +------+------+------+ | ceFAZolin in dextrose (ANCEF) | Given | 07/04/19 | 2 g | | | | IVPB 2 g 2 g, Intravenous, | | 18 9:05 | | | | | Administer over 30 Minutes, Prior | | AM PST | | | | | to Incision, Starting Fri | | | | | | | 07/04/17 at 0817, For 1 dose, Give | | | | | | | within one hour prior to | | | | | | | incision., Pre-op, Indications: | | | | | | | Surgical Prophylaxis | | | | | | + +--------+ +------+------+------+ +---+---+ | | | +---+---+ + +-------+ +--------+---+---+ | fentaNYL (PF) injection | Given | 07/04/19 | 25 mcg | | | | Intravenous, PRN, Pain, Starting | | 18 9:36 | | | | | 07/04/17 at 0917, Anesthesia | | AM PST | | | | | Intra-op | | | | | | + +-------+ +--------+---+---+ +-------+ +--------+---+---+ | Given | 07/04/19 | 25 mcg | | | | | 18 9:21 | | | | | | AM PST | | | | +-------+ +--------+---+---+ | Given | 07/04/19 | 25 mcg | | | | | 18 9:17 | | | | | | AM PST | | | | +-------+ +--------+---+---+ +---+---+ | | | +---+---+ + +-------+ +-------+---+---+ | ketorolac (TORADOL) injection | Given | 07/04/19 | 15 mg | | | | Intravenous, PRN, Pain, Starting | | 18 10:01 | | | | | 07/04/17 at 1001, Anesthesia | | AM PST | | | | | Intra-op | | | | | | + +-------+ +-------+---+---+ +---+---+ | | | +---+---+ + +-------+ +-------+---+---+ | lidocaine (PF) 2% injection | Given | 07/04/19 | 60 mg | | | | Intravenous, PRN, Starting Fri | | 18 9:17 | | | | | 07/04/17 at 0917, Anesthesia | | AM PST | | | | | Intra-op | | | | | | + +-------+ +-------+---+---+ +---+---+ | | | +---+---+ + +-------+ +------+---+---+ | metoprolol tartrate (LOPRESSOR) | Given | 07/04/19 | 5 mg | | | | injection Intravenous, PRN, | | 18 9:47 | | | | | Starting 07/04/17 at 0947, | | AM PST | | | | | Anesthesia Intra-op | | | | | | + +-------+ +------+---+---+ +---+---+ | | | +---+---+ + +-------+ +------+---+---+ | midazolam (VERSED) 1 mg/mL | Given | 07/04/19 | 2 mg | | | | injection Intravenous, PRN, | | 18 9:16 | | | | | Anxiety, Starting Fri07/04/17 at | | AM PST | | | | | 0916, Anesthesia Intra-op | | | | | | + +-------+ +------+---+---+ +---+---+ | | | +---+---+ + +-------+ +------+---+---+ | ondansetron (ZOFRAN) injection | Given | 07/04/19 | 4 mg | | | | Intravenous, PRN, Nausea, | | 18 10:02 | | | | | Vomiting, Starting Fri07/04/17 at | | AM PST | | | | | 1002, Anesthesia Intra-op | | | | | | + +-------+ +------+---+---+ +---+---+ | | | +---+---+ + + + + + +---+ | propofol (DIPRIVAN) injection | Rate/Dos | 07/04/19 | 50 | 27 mL/hr | | | Intravenous, CONTINUOUS PRN, | e Change | 18 9:30 | mcg/kg/m | | | | Starting 07/04/17 at 0917, | | AM PST | in | | | | Anesthesia Intra-op | | | | | | + + + + + +---+ + + + + +---+ | Rate/Dose Change | 07/04/19 | 75 | 40.5 | | | | 18 9:20 | mcg/kg/m | mL/hr | | | | AM PST | in | | | + + + + +---+ | New Bag | 07/04/19 | 50 | 27 mL/hr | | | | 18 9:17 | mcg/kg/m | | | | | AM PST | in | | | + + + + +---+ +---+---+ | | | +---+---+ + +-------+ +-------+---+---+ | propofol (DIPRIVAN) injection | Given | 07/04/19 | 40 mg | | | | Intravenous, PRN, Starting Fri | | 18 9:17 | | | | | 07/04/17 at 0917, Anesthesia | | AM PST | | | | | Intra-op | | | | | | + +-------+ +-------+---+---+ +---+---+ | | | +---+---+ documented in this encounter"
--- OUTSIDE RECORDS SUMMARY | ~2019-09-12 | XMS | Encounter Summary ---
Demographics + + + | Address | [address] | | | [place] [address] | + + + | Home Phone | | + + + | Preferred Language | Unknown | + + + | Marital Status | | + + + | Mandaen Affiliation | Unknown | + + + | Race | Unknown | + + + | Ethnic Group | Unknown | + + + Author + + + | Author | [facility] | | | and Nenoana | + + + | Organization | [facility] | | | and Nenoana [...] + | Matthew Ramirez | CHRIS | [address] | | | | | [place] | | | | | [address] | | + + + + + Care Team Providers + +------+ + | Care Over Short And Damage Clerk Name | Role | Phone | + +------+ + PCP | Unavailable | + +------+ + Encounter Details +--------+ + + + + | Date | Type | Department | Care Team | Description | +--------+ + + + + | 07/24/ | Hospital | [facility] | | | | 1999 | Encounter | MED CTR XRAY [address] | | | | | | [address] | | | | | | [place] [address] | | | | | | [phone] | | | +--------+ + + + [...]
--- OUTSIDE RECORDS SUMMARY | ~2019-09-12 | XMS | Encounter Summary ---
Demographics + + + | Address | [address] | | | [place] [address] | + + + | Home Phone | | + + + | Preferred Language | Unknown | + + + | Marital Status | | + + + | Baptist Affiliation | Unknown | + + + | Race | Unknown | + + + | Ethnic Group | Unknown | + + + Author + + + | Author | [facility] | | | and Nenoana | + + + | Organization | [facility] | | | and [...] + | Matthew Ramirez | ECON | [address] | | | | | [place] | | | | | [address] | | + + + + + Care Team Providers + +------+ + | Care Pipeliner Name | Role | Phone | + +------+ + | Ashly Rojo PA-C | PCP | | + +------+ + Encounter Details +--------+ + + + + | Date | Type | Department | Care Team | Description | +--------+ + + + + | 03/06/ | Hospital | [facility] | [facility] | Josué toe of right | | 2017 | Encounter | HOSP[facility] OP | Fab, DPM [address] | foot | | | | [address] [place] | [address] [place], | | | | | [facility], [place] | [place] [address] | | | | | [address] | [phone] | | | | | [phone] | | | +--------+ + + + [...] + + + | Blood Pressure | 152/59 | 03/06/2017 1:30 PM | | | | | PDT | | + + + + + | Pulse | 73 | 03/06/2017 1:30 PM | | | | | PDT | | + + + + + | Temperature | 36.4 C (97.5 F) | 03/06/2017 1:30 PM | | | | | PDT | | + + + + + | Respiratory Rate | 16 | 03/06/2017 1:30 PM | | | | | PDT | | + + + + + | Oxygen Saturation | 96% | 03/06/2017 1:30 PM | | | | | PDT | | + + + + + | Inhaled Oxygen | - | - | | | Concentration | | | | + + + + + | Weight | 93 kg (205 lb) | 03/06/2017 10:14 AM | | | | | PDT | | + + + + + | Height | - | - | | + + + + + | Body Mass Index | 30.27 | 11/24/2009 12:00 AM | | | | | PDT | | + + + + + documented in this encounter Discharge Instructions AttachmentsThe following attachments cannot be sent through Care Everywhere.Foot Surgery: Maurice pace Fifth Toe (Belizean)Foot Surgery: Flexible and Rigid Hammertoes (Belizean)Mallet, Hammer , and Claw Toes, Treating (Belizean)Mallet, Hammer, and Claw Toes, What Are (Belizean)document ed in this encounter Medications at Time of [...] + + + +---------+ + + | Black Cohosh 160 | Take 160 mg by mouth | | 0 | 01/23/20 | | | MG CAPS | Daily. | | | 12 | 8 | + + + +---------+ + + [...] +--------+ + + + | XR FOOT RIGHT 2 VW | Routin | 03/06/2017 | Hammer toe of | Results for this | | | e | 12:19 PM | right foot | procedure are in the | | | | PDT | | results section. | + +--------+ + + + | CORRECTION HAMMERTOE | | 03/06/2017 | Hammer Toes | | | | | 11:04 AM | | | | | | PDT | | | + +--------+ + + + documented in this encounter Results XR Foot Right 2 Vw (03/06/2017 12:19 PM PDT) + + | Specimen | + + | | + + + + + | Impressions | Performed At | + + + | IMPRESSION: Fluoroscopic assistance provided Dr. Randall during | [facility] | | surgery. Dictated by: Jason Burns | | + + + + + + | Narrative | Performed At | + + + | EXAMINATION: XR FOOT RIGHT 2 VW HISTORY: Correction of hammer | [facility] | | toes on right 2nd, 3rd, and 4th digits COMPARISON STUDY: None | | | FINDINGS: Pin devices are present at the 2nd, 3rd, and 4th toes. | | | At the 2nd and 3rd toes the distal tip of the pin projects over the | | | mid diaphysis of the metatarsal. At the 4th toe the the distal tip | | | of the pin extends near the joint space of the metatarsal and | | | proximal phalanges. . | | + + + + + | Procedure Note | + + | [place], Rad Results In - 03/06/2017 12:56 PM PDT EXAMINATION:XR FOOT RIGHT 2 | | VWHISTORY:Correction of hammer toes on right 2nd, 3rd, and 4th digitsCOMPARISON | | STUDY:NoneFINDINGS:Pin devices are present at the 2nd, 3rd, and 4th toes. At the 2nd | | and 3rd toes the distal tip of the pin projects over the mid diaphysis of the | | metatarsal. At the 4th toe the the distal tip of the pin extends near the joint space | | of the metatarsal and proximal phalanges. .IMPRESSION: IMPRESSION:Fluoroscopic | | assistance provided Dr. Randall during surgery.Dictated by: Jason BurnsElectronically | | Signed by: Jason Burns on 03/06/2017 12:52 PM | | | |FINDINGS: | |Pin devices are present at the 2nd, 3rd, and 4th toes. At the 2nd and 3rd toes the distal tip of the pin projects over the mid diaphysis of the metatarsal. At the 4th toe the the di stal tip of the pin extends near the | |joint space of the metatarsal and | |proximal phalanges. | | | | | | . | | | |IMPRESSION: | |IMPRESSION: | |Fluoroscopic assistance provided Dr. Randall during surgery. | | | |Dictated by: [...] + | Diagnosis | + + | Hammer toe of right foot | + + documented in this encounter Administered Medications + +---------+ +------+------+------+ | Medication Order | MAR | Action | Dose | Rate | Site | | | Action | Date | | | | + +---------+ +------+------+------+ | lactated ringers (LR) infusion | New Bag | 03/06/20 | | | | | at 10-100 mL/hr, Intravenous, | | 17 11:10 | | | | | CONTINUOUS, Starting Leona 03/06/17 | | AM PDT | | | | | at 1100, TKO., Pre-op | | | | | | + +---------+ +------+------+------+ +---+---+ | | | +---+---+ documented in this encounter"
--- OUTSIDE RECORDS SUMMARY | ~2019-09-12 | XMS | Encounter Summary ---
Demographics + + + | Address | [address] | | | [place] [address] | + + + | Home Phone | | + + + | Preferred Language | Unknown | + + + | Marital Status | | + + + | Lutheran Affiliation | NRP | + + + | Race | White | + + + | Ethnic Group | Not or | + + + Author + + + | Author | [facility] | + + + | Organization | [facility] | + + + | Address | Unknown | + + + | Phone | Unavailable | + + + Support + + + + + | Name | Relationship | Address | Phone | + + + + + | Matthew Ramirez | CHRIS | [address] | | | | | [place] | | | | | [address] | | + + + + + | Nella Haque | ECON | Unknown | | + + + + + Care Team Providers + +------+ + | Care Van Owner Operator Name | Role | Phone | [...] Visit | Medicine Clinic at | T, HOME CARE MUSIC THERAPIST-C,MPH | Preop examination; | | | | [facility] 4th Floor [address] | | Diabetes mellitus | | | | [address] | | screening; Other | | | | Mailcode: CH4S | | specified | | | | [facility] | | pre-operative | | | | and Healing, | | examination | | | | Building 1,4th Floor | | | | | | [place], [place] | | | | | | [address] | | | | | | [phone] | | | +--------+---------+ + + + [...] % (0.1 mg/g) Vaginal Cream folic acid Wcfhhpmamju-Fzaqxpvge-Bra C-Mn (GLUCOSAMINE CHONDROITIN MAXSTR)- HOLD 7 days [...] OR NON-STEROIDAL ANTI-INFLAMMATORY DRUGS (NSAIDs) Advil, Aleve, Roxanne-Brigantine, Anacin, Arthopan, Ascriptin, Aspergum, Aspirin with and [...] Phenylbutazone, Piroxicam, Propoxyphene, Relafen, Robomol, Rufen, Sine-aid, [place] s cold tablets, Sulindac, Talwin, Tolectin, Triaminicin, [...] perfume, lotions or powder. Remove any nail burmese from at least one fingernail. Do not [...] Surgery Check in Locations Day Stay Unit [phone], [facility], fourth floor Room 451 Surgery Check in Time Check-in times for Hospital Admissions are not available until the day prior to surgery. So meone from your surgeon's office or the hospital will contact you with your check in time. I f you do not hear from anyone by 3:00 PM please call your surgeons' office for [id number] . Going Home Your surgeon will decide [...] it is after office hours, call the [facility] stone operator at [phone] and ask them to page your doc [...] Scanned H&P. H and P entered into [employer](Chart review, Media tab). Vy Sosa RN, KAELA, MPH [facility] [address] Mail Code: [facility],4th [facility] [address] documente d in this encounter Plan of Treatment Not on filedocumented as of this encounter Procedures + +--------+ + + + | Procedure Name | Priori | Date/Time | Associated Diagnosis | Comments | | | ty | | | | + +--------+ + + + | [place] COLLECTION VENOUS | Routin | 10/25/2010 | [...] POINT | [address] | [place] [address] | | | OF CARE TESTS | [...] | | | DEPARTMENT | | | [place] CITIZEN | | | OF | | | [...] | + + + + + | [facility] | [address] | [place] [address] | | | PATHOLOGY | [address] [...] + | [facility] DEPARTMENT OF | [address] [facility] | [place] [address] | | | PATHOLOGY | [address] [...] | + + + + + | [facility] | [address] | [place] [address] | | | PATHOLOGY | [address] [...]
--- OUTSIDE RECORDS SUMMARY | ~2019-09-12 | XMS | Encounter Summary ---
Demographics + + + | Address | [address] | | | [place] [address] | + + + | Home Phone | | + + + | Preferred Language | Unknown | + + + | Marital Status | | + + + | Pentecostalism Affiliation | Unknown | + + + | Race | Unknown | + + + | Ethnic Group | Unknown | + + + Author + + + | Author | [facility] | | | and [place]eno[place] | + + + | Organization | [facility] | | | and [...] + | Matthew Ramirez | ECON | [address] | | | | | [place] | | | | | [address] | | + + + + + Care Team Providers + +------+ + | Care Forestry Extension Specialist Name | Role | Phone | [...] | 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 | [address] | | | | | adenocarcino | [address] | [place], | | | | | ma (HCC) | [address] | [place] [address] | | | | | Procedures | [place], [place] | Phone: | | | | | CT Chest | [address] | [phone] | | | | | Abdomen | Phone: | Fax: | | | | | Pelvis w | [phone] | [phone] | | | | | Contrast | Fax: | | | | | | CHG CT | [phone] | | | | | | SCAN,ABDOMEN | | | | | | | AND | | | | | | | PELVIS,W | | | | | | | CONTRAST [place] | | | | | | | [...] | 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 | [address] | | | | | adenocarcino | [address] | [place], | | | | | ma (HCC) | [address] | [place] [address] | | | | | Procedures | [place], [place] | Phone: | | | | | CT Chest | [address] | [phone] | | | | | Abdomen | Phone: | Fax: | | | | | Pelvis w | [phone] | [phone] | | | | | Contrast | Fax: | | | | | | CHG CT | [phone] | | | | | | SCAN,ABDOMEN | | | | | | | AND | | | | | | | PELVIS,W | | | | | | | CONTRAST [place] | | | | | | | CAT SCAN OF | | | | | | | CHEST | | | | | | | CONTRAST | | | +--------+--------+ + + + + Encounter Details +--------+ + + + + | Date | Type | Department | Care Team | Description | +--------+ + + + + | 12/31/ | Hospital | [facility] | Matthew Shukla MD | 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
--- OUTSIDE RECORDS SUMMARY | ~2019-09-12 | XMS | Encounter Summary ---
Demographics + + + | Address | [address] | | | [place] [address] | + + + | Home Phone | | + + + | Preferred Language | Unknown | + + + | Marital Status | | + + + | Latter Day Affiliation | NRP | + + + | Race | White | + + + | Ethnic Group | Not or | + + + Author + + + | Author | [facility] | + + + | Organization | [facility] | + + + | Address | Unknown | + + + | Phone | Unavailable | + + + Support + + + + + | Name | Relationship | Address | Phone | + + + + + | Matthew Ramirez | CHRIS | [address] | | | | | [place] | | | | | [address] | | + + + + + | Nella Lowery ECON | Unknown | | + + + + + Care Team Providers + +------+ + | Care Eeg Technician Name | Role | Phone | + +------+ + | Long Copeland MD | PCP | | + +------+ + Encounter Details +--------+ + + + + | Date | Type | Department | Care Team | Description | +--------+ + + + + | 10/16/ | Lab | [facility] | Cristel Galicia MD | | | 2019 | Requisition | [address] | [address] | | | | | [address] [place], [place] | [place], [place] | | | | | [address] | [address] | | | | | | [phone] | | | | | | | [...] | + +--------+ + + + | HSR PROCESS ONLY | Routin | 05/18/2019 | Encounter for | | | | e | 4:39 PM | other screening for | | | | | PST | genetic and | | | | | | chromosomal | | | | | | anomalies | | + +--------+ + + + documented in this encounter Results HSR PROCESS ONLY (05/18/2019 4:39 PM PST) + + | Specimen | + + | Slide-Block - | | Slide-Block | + + + + + + + | Performing | Address | City/State/Zipcode | Phone Number | | Organization | | | | + + + + + | [facility] | [address] | [place] [address] | | | DIAGNOSTIC | [address] | | | | LABORATORIES | | | | + + + + + documented in this encounter Visit Diagnoses + + | Diagnosis | + + | Encounter for other screening for genetic and chromosomal anomalies | + + documented in this encounter"
--- OUTSIDE RECORDS SUMMARY | ~2019-09-12 | XMS | Encounter Summary ---
Demographics + + + | Address | [address] | | | [place] [address] | + + + | Home Phone | | + + + | Preferred Language | Unknown | + + + | Marital Status | | + + + | Mandaen Affiliation | NRP | + + + [...] + | Matthew Ramirez | ECON | [address] | | | | | [place] | | | | | [address] | | + + + + + | Nella Haque | ECON | Unknown | | + + + + + Care Team Providers + +------+ + | Care Divorce Attorney Name | Role | Phone | + [...]
--- OUTSIDE RECORDS SUMMARY | ~2019-09-12 | XMS | Encounter Summary ---
Demographics + + + | Address | [address] | | | [place] [address] | + + + | Home Phone | | + + + | Preferred Language | Unknown | + + + | Marital Status | | + + + | Zoroastrian Affiliation | Unknown | + + + | Race | Unknown | + + + | Ethnic Group | Unknown | + + + Author + + + | Author | [facility] | | | and [place] | + + + | Organization | [facility] | | | and Nenoana [...] + | Matthew Ramirez | ECON | [address] | | | | | [place] | | | | | [address] | | + + + + + Care Team Providers + +------+ + | Care Process Control Engineer Name | Role | Phone | [...] | | | | | | | [facility] REPAIR OF | | | | | [...] | | | [place], [place] | [place] [address] | | | | | [address] | [phone] | | | | | [phone] | | | +--------+---------+ + + + [...]
--- OUTSIDE RECORDS SUMMARY | ~2019-09-12 | XMS | Encounter Summary ---
Demographics + + + | Address | [address] | | | [place] [address] | + + + | Home Phone | | + + + | Preferred Language | Unknown | + + + | Marital Status | | + + + | Confucianism Affiliation | NRP | + + + [...] + | Matthew Ramirez | CHRIS | [address] | | | | | [place] | | | | | [address] | | + + + + + | Nella Haque | ECON | Unknown | | + + + + + Care Team Providers + +------+ + | Care Stripper Machine Operator Name | Role | Phone [...] | | | | | stress | [place], [place] | [place], [place] | | | | | incontinence | [address] | [address] | | | | | Procedures | Phone: | Phone: | | | | | REQUEST TO | [phone] | [phone] | | | | | SURGERY | Fax: | Fax: | | | | | [employer] S[employer]AGGER | [phone] | [phone] | | | | | [place] | | | | | | | CYSTOURETHRO | | | | | | | [place] | | | | | | | SLING OPER | | | | | | | STRES | | | | | | | INCONTINENCE | | | +--------+--------+ + + + + Encounter Details +--------+---------+ + + + | Date | Type | Department | Care Team | Description | +--------+---------+ + + + | 11/29/ | Office | [facility] | Avis Rios | Postop check | | 2010 | Visit | [facility] | MD Gillian [address] | (Primary Dx) | | | | [place] [address] | [place] [address] | | | | | [address] | [place], [place] | | | | | [place], [facility] floor | [address] | | | | | [place], [place] | [phone] | | | | | [address] | | | | | | [phone] | | | +--------+---------+ + + + [...]
--- OUTSIDE RECORDS SUMMARY | ~2019-09-12 | XMS | Encounter Summary ---
Demographics + + + | Address | [address] | | | [place] [address] | + + + | Home Phone | | + + + | Preferred Language | Unknown | + + + | Marital Status | | + + + | Restorationism Affiliation | Unknown | + + + | Race | Unknown | + + + | Ethnic Group | Unknown | + + + Author + + + | Author | [facility] | | | and Nenoana | + + + | Organization | [facility] | | | and Nenoana | [...] + | Matthew Ramirez | ECON | [address] | | | | | [place] | | | | | [address] | | + + + + + Care Team Providers + +------+ + | Care Major Assembly Lineman Name | Role | Phone | + +------+ + | Ahsly Rojo PA-C | PCP | | + [...] Clinton Stringer, | | | | | ([facility]) | MD [address] | MD [address] | | | | | | [address] | [address] | | | | | | [place], | [place], [place] | | | | | | [place] [address] | [address] | | | | | | Phone: | Phone: | | | | | | [phone] | [phone] | | | | | | Fax: | Fax: | | | | | | [phone] | [phone] | +--------+ + + + + + Encounter Details +--------+ + + + + | Date | Type | Department | Care Team | Description | +--------+ + + + + | 01/25/ | Orders Only | [facility] | Arpan, | Linitis plastica | | 2019 | | [facility] MED[facility] | Luis Richards MD [address] | ([facility]) (Primary Dx) | | | | ONCOLOGY CLINIC [address] | [address] [place] | | | | | [address] [place] | [place] [address] | | | | | [place] [address] | [phone] | | | | | [phone] | | | +--------+ + + + [...]
--- OUTSIDE RECORDS SUMMARY | ~2019-09-12 | XMS | Encounter Summary ---
Demographics + + + | Address | [address] | | | [place] [address] | + + + | Home Phone | | + + + | Preferred Language | Unknown | + + + | Marital Status | | + + + | Orthodoxy Affiliation | Unknown | + + + | Race | Unknown | + + + | Ethnic Group | Unknown | + + + Author + + + | Author | [facility] | | | and Nenoana | + + + | Organization | [facility] | | | and [...] + | Matthew Ramirez | CHRIS | [address] | | | | | [place] | | | | | [address] | | + + + + + Care Team Providers + +------+ + | Care Lead Bi Developer Name | Role | Phone | + +------+ + PCP | Unavailable | + +------+ + Encounter Details +--------+ + + + + | Date | Type | Department | Care Team | Description | +--------+ + + + + | 06/15/ | Hospital | [facility] | | | | 2004 | Encounter | MED CTR XRAY [address] | | | | | | [address] | | | | | | [place] [address] | | | | | | [phone] | | | +--------+ + + + [...]
--- OUTSIDE RECORDS SUMMARY | ~2019-09-12 | XMS | Encounter Summary ---
Demographics + + + | Address | [address] | | | [place] [address] | + + + | Home Phone | | + + + | Preferred Language | Unknown | + + + | Marital Status | | + + + | Presybeterian Affiliation | NRP | + + + [...] + | Matthew Ramirez | CHRIS | [address] | | | | | [place] | | | | | [address] | | + + + + + | Nella Haque | ECON | Unknown | | + + + + + Care Team Providers + +------+ + | Care Solid Glass Rod Dowel Machine Operator Name | Role | Phone [...] (TRAMADOL 50 mg) | | | | [facility] | [place], [place] | | | | | for Health and | [address] | | | | | Healing [address] | [phone] | | | | | [place], [place] | | | | | | [address] | | | | | | [phone] | | | +--------+--------+ + + + [...]
--- OUTSIDE RECORDS SUMMARY | ~2019-09-12 | XMS | Encounter Summary ---
Demographics + + + | Address | [address] | | | [place] [address] | + + + | Home Phone | | + + + | Preferred Language | Unknown | + + + | Marital Status | | + + + | Amish Affiliation | Unknown | + + + | Race | Unknown | + + + | Ethnic Group | Unknown | + + + Author + + + | Author | [facility] | | | and Nenoana | + + + | Organization | [facility] | | | and Nenoana | + + + | Address | Unknown | + + + | Phone | Unavailable | + + + Support + + + + + | Name | Relationship | Address | Phone | + + + + + | eNlla Haque | ECON | Unknown | | + + + + + | Matthew Ramirez | ECON | [address] | | | | | [place] | | | | | [address] | | + + + + + Care Team Providers + +------+ + | Care Personal Lines Underwriter Name | Role | Phone | + [...] | | cancer | Luis Richards, | [place] | | | | | metastasized | MD [address] | [place], [place] | | | | | to multiple | [address] | [address] | | | | | sites, left | [place], | Phone: | | | | | (HCC) | [place] [address] | [phone] | | | | | Procedures | Phone: | Fax: | | | | | PET CT Skull | [phone] | [phone] | | | | | Base To Mid | Fax: | | | | | | Thigh | [phone] | | +--------+--------+ + + + + [...] | | cancer | Luis Richards, | [place] | | | | | metastasized | MD [address] | [place], [place] | | | | | to multiple | [address] | [address] | | | | | sites, left | [place], | Phone: | | | | | (HCC) | [place] [address] | [phone] | | | | | Procedures | Phone: | Fax: | | | | | PET CT Skull | [phone] | [phone] | | | | | Base To Mid | Fax: | | | | | | Thigh | [phone] | | +--------+--------+ + + + + Encounter Details +--------+ + + + + | Date | Type | Department | Care Team | Description | +--------+ + + + + | 07/21/ | Hospital | [facility] | Arpan, | Breast cancer | | 2020 | Encounter | MED CTR PET SCAN | Luis Richards MD [address] | metastasized to | | | | [address] [place] | [address] [place] | multiple sites, left | | | | [place] [address] | [place] [address] | (HCC) | | | | [phone] | [phone] | | | | | | | [...] | | | | | | ol (ADVSANDY MARINOXELA | needed (in evening | | | [...] + -----+ | Exam: PET CT | TMAMY DAVISA GING | | SKULL BASE TO MID [...] (HCC) | + + documented in this encounter Administered Medications + +--------+ + +------+------+ | Medication Order | MAR | Action | Dose | Rate | Site | | | Action | Date | | | | + +--------+ + +------+------+ | fluorine-18 FDG injection 10.37 | Given | 07/22/19 | 10.37 | | | | millicurie 10.37 millicurie, | | 20 9:26 | millicur | | | | Intravenous, ONCE, [facility] 07/22/19 at | | AM PDT | ies | | | | 0930, For 1 dose | | | | | | + +--------+ + +------+------+ +---+---+ | | | +---+---+ documented in this encounter
--- OUTSIDE RECORDS SUMMARY | ~2019-09-12 | XMS | Clinical Summary ---
Demographics + + + | Address | [address] | | | [place] [address] | + + + | Home Phone [...] | Author | [facility] | | | and Nenoana | + + + | Organization | [facility] | | | and Nenoana [...] + | Matthew Ramirez | ECON | [address] | | | | | [place] | | | | | [address] | | + + + + + Care Team Providers + +------+ + | Care Filler Machine Operator Name | Role | Phone [...] Repeat colonoscopy January 26, 2018 | | [place] notable for a tubular adenoma.5. Admit [facility], October 18, 2017 | | for partial small bowel obstruction. CT scan of abdomen/pelvis | | with contrast demonstrated small bowel obstruction. Symptoms | | resolved with conservative management.6. Presentation on July | | 2018 with abdominal pain, nausea and one episode of vomiting. | | CT abdomen/pelvis with contrast August 05, 2018 at [place] | | [facility] in [facility] demonstrated no acute inflammatory | | changes in the abdomen or pelvis.7. EGD/ Colonoscopy with random | | biopsies by Dr. Shukla, [facility] on December 17, 2018; Specimen # | | [id number] ([facility]). "A-Mucosa, stomach, | | biopsy-infiltrating gastric adenocarcinoma." Specimens | | B-duodenum, C-antrum, D-gastroesophageal junction, E-ascending | | colon, F-transverse colon, G-descending colon, and H, sigmoid | | colon were all negative for invasive malignancy.8. CT | | chest/abdomen/pelvis on December 31, 2018; No concerning gastric | | mass, no findings to suggest metastatic disease.9. Admit to [facility] | | on May 06, 2019 for small bowel obstruction, with laparotomy | | and extensive lysis of adhesions May 07, 2019 ([facility]). | | Last Assessment & Plan: Ashly Ramirez is referred by | | Matthew Shukla Md [address] | | [address] for evaluation and management of gastric adenocarcinoma.I | | met with Ashly and her daughter Nella, on 01/05/2019 at the | | [facility]. The patient's history | | includes [...] pathological findings with Dr. 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 Dr. Shukla agreed that the lack of endoscopic or | | radiographic findings is atypical and agreed that endoscopic | | ultrasound is indicated for further evaluation. Dr. Shukla' office | | will co-ordinate endoscopic ultrasound with [facility] | | Group in [place]. I will follow up with Ashly Ramirez after | | her next procedure to review the results and to establish a plan | | of management. | + + + + + | Rectal bleeding | 12/16/2018 | + + + + + | Overview: Added automatically from request for surgery | | [id number] | + + + + + | Diarrhea, unspecified type | 12/16/2018 | + + + + + | Overview: Added automatically from request for surgery | | [id number] | + + + + + | Chronic abdominal pain | 12/16/2018 | + + + + + | Overview: Added automatically from request for surgery | | [id number] | + + + + + | Benzodiazepine dependence | 12/16/2018 | + + + + + | Overview: Added automatically from request for surgery | | [id number] | + + + + + | Narcotic dependence, episodic use | 12/16/2018 | + + + + + | Overview: Added automatically from request for surgery | | [id number] | + + + + + | LUQ pain | 12/16/2018 | + + + + + | Overview: Added automatically from request for surgery | | [id number] | + + + + + | Alternating constipation and diarrhea | 12/16/2018 | + + + + + | Overview: Added automatically from request for surgery | | [id number] | + + + + + | Hematochezia | 12/16/2018 | + + + + + | Overview: Added automatically from request for surgery | | [id number] | + + + + + | Weight loss, unintentional | 12/16/2018 | + + + + + | Overview: Added automatically from request for surgery | | [id number] | + + + + + | [...] (HCC) | +--------+ + + + + | 07/09/ | Telephone | Oncology | Arpan, | Care Coordination | | 2020 | | | Luis Richards MD | | +--------+ + + + + [...] | + + + + | INFLUENZA, [id number], | 04/29/2009 | | | UNSPECIFIED | [...] | Left: | CONMED | | | [id number] | | on 07/04/2017 by Prakash, | | Toe | JOHN- [address] | | | [address] | | Jose Sanon DPM at [facility] | | | | | | /[id number] | | [facility] | | | | | | 687377 | | | | | | | | 053333 | | | | | | | | 240991 | | | | | | | | 184275 | | | | | | | | 392972 | | | | | | | | | | | | | | | | /[address] | | | | | | | | 6 | + +------+--------+ +--------+--------+--------+ | .045 C-WireImplanted: Qty: 1 | | Left: | CONMED | | | [id number] | | on 07/04/2017 by Prakash, | | Toe | CONMED | | | [address] | | Jose San[facility] DPM at [facility] | | | JOHN. | | | /[address] | | [facility] | | | | | | 183815 | | | | | | | | 262878 | | | | | | | | 543510 | | | | | | | | 698805 | | | | | | | | 085122 | | | | | | | | | | | | | | | | /[address] | | | | | | | | 7 | + +------+--------+ +--------+--------+--------+ | .045 C-WireImplanted: Qty: 1 | | Left: | CONMED | | | [id number] | | on 07/04/2017 by Prakash, | | Toe | CONMED | | | 39082 | | Jose Sanon DPM at [facility] | | | JOHN. | | | /[address] | | [facility] | | | | | | 735451 | | | | | | | | 218910 | | | | | | | | 837086 | | | | | | | | 131394 | | | | | | | | 514616 | | | | | | | | | | | | | | | | /[address]14[address] | | | | | | | | 6 | + +------+--------+ +--------+--------+--------+ | Pip DartImplanted: Qty: 1 on | | Right: | ARTHREX | | 06/11/ | AR-415 | | 02/13/2018 by Jose Randall | | Toe | ARTHREX | | 2021 | 5PS-30 | | JACKIE Sanon at [facility] | | | INC. | | | 10 | | [facility] | | | | | | /+$$80 | | | | | | | | 659264 | | | | | | | | 515655 | | | | | | | | 77U | | | | | | | | /38194 | | | | | | | | 817 | + +------+--------+ +--------+--------+--------+ | Pip Trevor Implanted: Qty: 1 on | | Right: | ARTHREX | | 11/08/ | AR-415 | | 02/13/2018 by Prakash, | | Toe | ARTHREX | | 2022 | 4PS-30 | | Jose Sanon DPM at [facility] | | | INC. | | | 10 | | [facility] | | | | | | /+$$80 | | | | | | | | 574934 | | | | | | | | 252375 | | | | | | | | 47$ | | | | | | | | /40842 | | | | | | | [...] Toe | ARTHREX | | 2020 | /[id number] | | Qty: 1 on 02/13/2018 at [facility] | | | INC. | | | [id number] | | [facility] | | | | | | [id number] | | | | | | | | 174565 | | | | | | | | 050254 | | | | | | | | 101524 | | | | | | | | 761 | | | | | | | | /35232 | | | | | | | [...] + +--------+ | MEDICARE | MEDICA | [id number] | 10/11/19 | [phone] | | Medica | | | RE | | 04-Pre | 5 | | re | | | PART A | | sent | | | | | | AND B | | | | | | + +--------+ +--------+ + +--------+ | MODA | MODA | [id number] | 05/12/19 | [phone] | [address] | Indemn | | | HEALTH | | 17-Pre | 9 | [address] | ity | | | MDCR | | sent | | [place], | | | | [place] | | | | [place] [address] | | + +--------+ +--------+ + +--------+ | MEDICARE | MEDICA | [id number] | 10/11/19 | [phone] | | Medica | | | RE | | 04-Pre | 5 | | re | | | PART A | | sent | | | | | | AND B | | | | | | + +--------+ +--------+ + +--------+ | MODA | MODA | [id number] | 05/12/19 | [phone] | [address] | Indemn | | | HEALTH | | 19-Pre | 9 | [address] | ity | | | MDCR | | sent | | [place], | | | | [place] | | | | [place] [address] | | + +--------+ +--------+ + +--------+ + +--------+ +--------+ + + | Guarantor Name | Accoun | Relation to | Date | Phone | Billing Address | | | t Type | Patient | of | | | | | | | | | | + +--------+ +--------+ + + | Ashly Ramirez | Person | Self | [birth year] | [address] | | | al/Fam | | 1941 | [phone] | [place], [place] | | | amrik | | | 9 (Home) | [address] | + +--------+ +--------+ + + | Ashly Ramirez | Person | Self | [birth year] | | [address] | | | al/Fam | | 1941 | [phone] | [place], [place] | | | [place] | | | 9 (Home) | [address] | + +--------+ +--------+ + + Advance Directives + + + + + | Type | Date Recorded | Patient | Explanation | | | | Shredding Machine Tender | | + + + + + | Power of | | | | | Ventilation Mechanic | | | | + + + [...]
--- OUTSIDE RECORDS SUMMARY | ~2019-09-12 | XMS | Encounter Summary ---
Demographics + + + | Address | [address] | | | [place] [address] | + + + | Home Phone [...] Author + + + | Author | [facility] | + + + | Organization | [facility] | + + + | Address | Unknown | + + + | Phone | Unavailable | + + + Support + + + + + | Name | Relationship | Address | Phone | + + + + + | Matthew Ramirez | CHRIS | [address] | | | | | [place] | | | | | [address] | | + + + + + | Nella Haque | ECON | Unknown | | + + + + + Care Team Providers + +------+ + | Care Insurance Advisor Name | Role | Phone | + +------+ + | Long Copeland MD | PCP | | + +------+ + Reason for Visit + + + | Reason | Comments | + + + | Scheduling | | + + + | Care Coordination | | + + + Encounter Details +--------+ + + + + | Date | Type | Department | Care Team | Description | +--------+ + + + + | 07/07/ | Telephone | [facility] | Rodriguez Bower MD | Scheduling; Care | | 2019 | | Clinics at S | [address] | Coordination | | | | [facility] | [place], [place] | | | | | for Health and | [address] | | | | | Healing [address] | [phone] | | | | | [place], [place] | | | | | | [address] | | | | | | [phone] | | | +--------+ + + + [...]
--- OUTSIDE RECORDS SUMMARY | ~2019-09-12 | XMS | Encounter Summary ---
Demographics + + + | Address | [address] | | | [place] [address] | + + + | Home Phone [...] + + | Author | [facility] | + + + | Organization | [facility] | + + + | Address | Unknown | + + + | Phone | Unavailable | + + + Support + + + + + | Name | Relationship | Address | Phone | + + + + + | Matthew Ramirez | CHRIS | [address] | | | | | [place] | | | | | [address] | | + + + + + | Nella Haque | ECON | Unknown | | + + + + + Care Team Providers + +------+ + | Care Low Altitude Air Defense Gunner Name | Role | Phone | + +------+ + | Long Copeland MD | PCP | | + +------+ + Encounter Details +--------+ + + + + | Date | Type | Department | Care Team | Description | +--------+ + + + + | 10/10/ | Outside | UNKNOWN DEPARTMENT | Other, Faculty | | | 2019 | Records | [address] [facility] | [phone] | | | | | [address] | | | | | | [place], [place] | | | | | | [address] | | | +--------+ + + + [...]
--- OUTSIDE RECORDS SUMMARY | ~2019-09-12 | XMS | Encounter Summary ---
Demographics + + + | Address | [address] | | | [place] [address] | + + + | Home Phone | | + + + | Preferred Language | Unknown | + + + | Marital Status | | + + + | Christianity Affiliation | Unknown | + + + | Race | Unknown | + + + | Ethnic Group | Unknown | + + + Author + + + | Author | [facility] | | | and Nenoana | + + + | Organization | [facility] | | | and Nenoana [...] + | Matthew Ramirez | ECON | [address] | | | | | [place] | | | | | [address] | | + + + + + Care Team Providers + +------+ + | Care Automobile Assembly Supervisor Name | Role | Phone | [...] | | ma (HCC) | [address] | [place] | | | | | | [place] | [place], | | | | | | [address] | [place] [address] | | | | | | Phone: | Phone: | | | | | | [phone] | [phone] | | | | | | Fax: | Fax: | | | | | | [phone] | [phone] | +--------+ + + + + + [...] [address] | | | | | bhargav ([facility]) | [address] | [place] | | | | | | [place], [place] | [place], | | | | | | [address] | [place] [address] | | | | | | Phone: | Phone: | | | | | | [phone] | [phone] | | | | | | Fax: | Fax: | | | | | | [phone] | [phone] | +--------+ + + + + + Encounter Details +--------+ + + + + | Date | Type | Department | Care Team | Description | +--------+ + + + + | 01/05/ | Hospital | [facility] | Arpan, | Gastric | | 2019 | Encounter | MED CTR MEDICAL | Luis Richards MD [address] | adenocarcinoma | | | | ONCOLOGY CLINIC [address] | [address] [place] | (HCC); Malignant | | | | [address] [place] | [place] [address] | neoplasm of | | | | [place] [address] | [phone] | overlapping sites of | | | | [phone] | | stomach (HCC) | +--------+ + [...] adenocarcinoma (HCC) | starting 01/05/2019 | | ([facility]) | | | | until 01/05/2019 | [...]
--- OUTSIDE RECORDS SUMMARY | ~2019-09-12 | XMS | Encounter Summary ---
Demographics + + + | Address | [address] | | | [place] [address] | + + + | Home Phone | | + + + | Preferred Language | Unknown | + + + | Marital Status | | + + + | Lutheran Affiliation | NRP | + + + | Race | White | + + + | Ethnic Group | Not or | + + + Author + + + | Author | [facility] | + + + | Organization | [facility] | + + + | Address | Unknown | + + + | Phone | Unavailable | + + + Support + + + + + | Name | Relationship | Address | Phone | + + + + + | Matthew Ramirez | CHRIS | [address] | | | | | [place] | | | | | [address] | | + + + + + | Nella Haque | ECON | Unknown | | + + + + + Care Team Providers + +------+ + | Care Stock Worker And Deliverer Name | Role | Phone | + +------+ + | Long Copeland MD | PCP | | + +------+ + Reason for Visit + + + | Reason | Comments | + + + | Medication | Letrozole | + + + Encounter Details +--------+--------+ + + + | Date | Type | Department | Care Team | Description | +--------+--------+ + + + | 07/28/ | Refill | [facility] | Larissa Colón, | Medication | | 2019 | | Clinics at S | PharmD [address] | (Letrozole) | | | | [facility] | [facility] | | | | | [facility] and | [place], [place] | | | | | Healing [address] | [address] | | | | | [place], [place] | | | | | | [address] | | | | | | [phone] | | | +--------+--------+ + + + [...]
--- OUTSIDE RECORDS SUMMARY | ~2019-09-12 | XMS | Encounter Summary ---
Demographics + + + | Address | [address] | | | [place] [address] | + + + | Home Phone | | + + + | Preferred Language | Unknown | + + + | Marital Status | | + + + | Pentecostal Affiliation | Unknown | + + + | Race | Unknown | + + + | Ethnic Group | Unknown | + + + Author + + + | Author | [facility] | | | and Nenoana | + + + | Organization | [facility] | | | and [...] + | Matthew Ramirez | ECON | [address] | | | | | [place] | | | | | [address] | | + + + + + Care Team Providers + +------+ + | Care Shot Grinder Operator Name | Role | Phone | [...] | | [address] | [place] [address] | | | | | [address] | | | | | | [phone] | | | +--------+ + + + [...]
--- OUTSIDE RECORDS SUMMARY | ~2019-09-12 | XMS | Encounter Summary ---
Demographics + + + | Address | [address] | | | [place] [address] | + + + | Home Phone | | + + + | Preferred Language | Unknown | + + + | Marital Status | | + + + | Lutheran Affiliation | Unknown | + + + | Race | Unknown | + + + | Ethnic Group | Unknown | + + + Author + + + | Author | [facility] | | | and Nenoana | + + + | Organization | [facility] | [...] + | Matthew Ramirez | [place] | [address] | | | | | [place] | | | | | [address] | | + + + + + Care Team Providers + +------+ + | Care Grain Weigher Name | Role | Phone | + +------+ + PCP | Unavailable | + +------+ + Encounter Details +--------+ + + + + | Date | Type | Department | Care Team | Description | +--------+ + + + + | 12/08/ | Hospital | [facility] | [place], | | | 2009 | Encounter | MED CTR GENERIC OP | Katerin Xavier MD | | | | | CONV DEPT [address] | | | | | | [place], | | | | | | [place] [address] | | | | | | [phone] | | | +--------+ + + + [...]
--- OUTSIDE RECORDS SUMMARY | ~2019-09-12 | XMS | Encounter Summary ---
Demographics + + + | Address | [address] | | | [place] [address] | + + + | Home Phone | | + + + | Preferred Language | Unknown | + + + | Marital Status | | + + + | Yarsani Affiliation | NRP | + + + [...] + | Matthew Ramirez | [place] | [address] | | | | | [place] | | | | | [address] | | + + + + + | Nella Garland | ECON | Unknown | | + + + + + Care Team Providers + +------+ + | Care Wildlife Biology Internship Name | Role | Phone | + +------+ + | Long Copeland MD | PCP | | + +------+ + Reason for Referral Consultation (Urgent) + +---------+ + + + [...] Tumor | [address] | [facility] | | | | | Procedures | [address] | for Health | | | | | CONSULT TO | [place], | and Healing | | | | | HEMATOLOGY / | [place] | [address] | | | | | ONCOLOGY | [address] | Ave | | | | | PRACTICE | Phone: | [place], [place] | | | | | | [phone] | [address] | | | | | | Fax: | Phone: | | | | | | [phone] | [phone] | | | | | | | Fax: | | | | | | | [phone] | + +---------+ + + + + Encounter Details +--------+ + + + + | Date | Type | Department | Care Team | Description | +--------+ + + + + | 03/04/ | Marketing Communications Leader | Surgical Oncology | Cristel Galicia MD | Tumor (Primary Dx) | | 2019 | | at [facility] [address] | [address] | | | | | Ave Mail Code: | [place], [place] | | | | | [facility] | [address] | | | | | and Healing, | [phone] | | | | | [address] | | | | | | [place], [place] | | | | | | [address] | | | | | | [phone] | | | +--------+ + + + [...] | Diagnosis | + + | Tumor - Primary | + + documented in this encounter"
--- OUTSIDE RECORDS SUMMARY | ~2019-09-12 | XMS | Encounter Summary ---
Demographics + + + | Address | [address] | | | [place] [address] | + + + | Home Phone | | + + + | Preferred Language | Unknown | + + + | Marital Status | | + + + | Religion Affiliation | Unknown | + + + | Race | Unknown | + + + | Ethnic Group | Unknown | + + + Author + + + | Author | [facility] | | | and Nenoana | + + + | Organization | [facility] | | | [...] | + + + + + | Matthwe Ramirez | [place] | [address] | | | | | [place] | | | | | [address] | | + + + + + Care Team Providers + +------+ + | Care Pan Washer Name | Role | Phone | + +------+ + PCP | Unavailable | + +------+ + Encounter Details +--------+ + + + + | Date | Type | Department | Care Team | Description | +--------+ + + + + | 07/15/ | Hospital | [facility] | | | | 2001 | Encounter | MED CTR GENERIC OP | | | | | | CONV DEPT [address] | | | | | | [place], | | | | | | [place] [address] | | | | | | [phone] | | | +--------+ + + + [...]
--- OUTSIDE RECORDS SUMMARY | ~2019-09-12 | XMS | Encounter Summary ---
Demographics + + + | Address | [address] | | | [place] [address] | + + + | Home Phone | | + + + | Preferred Language | Unknown | + + + | Marital Status | | + + + | Christianity Affiliation | Unknown | + + + | Race | Unknown | + + + | Ethnic Group | Unknown | + + + Author + + + | Author | [facility] | | | and Nenoana | + + + | Organization | [facility] | | [...] + | Matthew Ramirez | [place] | [address] | | | | | [place] | | | | | [address] | | + + + + + Care Team Providers + +------+ + | Care Reel Hooker Name | Role | Phone | + +------+ + PCP | Unavailable | + +------+ + Encounter Details +--------+ + + + + | Date | Type | Department | Care Team | Description | +--------+ + + + + | 02/02/ | Hospital [facility] | | | | [facility] | Encounter | MED CTR MP INTRA OP | | | | | | [address] | | | | | | [place] | | | | | | [address] | | | | | | [phone] | | | +--------+ + + + [...]
--- OUTSIDE RECORDS SUMMARY | ~2019-09-12 | XMS | Clinical Summary ---
Demographics + + + | Address | [address] | | | [place] [address] | + + + | Home Phone | | + + + | Preferred Language | Unknown | + + + | Marital Status | | + + + | Mandaeism Affiliation | Unknown | + + + | Race | Unknown | + + + | Ethnic Group | Unknown | + + + Author + + + | Author | [facility] | | | and Nenoana | + + + | Organization | [facility] | | | and [...] + | Matthew Ramirez | ECON | [address] | | | | | [place] | | | | | [address] | | + + + + + Care Team Providers + +------+ + | Care Barrel Planer Name | Role | Phone | + [...] Repeat colonoscopy January 26, 2018 | | ([facility]) notable for a tubular adenoma.5. Admit [facility], October 18, 2017 | | for partial small bowel obstruction. CT scan of abdomen/pelvis | | with contrast demonstrated small bowel obstruction. Symptoms | | resolved with conservative management.6. Presentation on July | | 2018 with abdominal pain, nausea and one episode of vomiting. | | CT abdomen/pelvis with contrast August 05, 2018 at [place] | | [facility] in [facility] demonstrated no acute inflammatory | | changes in the abdomen or pelvis.7. EGD/ Colonoscopy with random | | biopsies by Dr. Shukla, [facility] on December 17, 2018; Specimen # | | [id number] ([employer]). "A-Mucosa, stomach, | | biopsy-infiltrating gastric adenocarcinoma." Specimens | | B-duodenum, C-antrum, D-gastroesophageal junction, E-ascending | | colon, F-transverse colon, G-descending colon, and H, sigmoid | | colon were all negative for invasive malignancy.8. CT | | chest/abdomen/pelvis on December 31, 2018; No concerning gastric | | mass, no findings to suggest metastatic disease.9. Admit to [facility] | | on May 06, 2019 for small bowel obstruction, with laparotomy | | and extensive lysis of adhesions May 07, 2019 ([place]). | | Last Assessment & Plan: Ashly Ramirez is referred by | | Matthew Shukla Md [address] | | [address] for evaluation and management of gastric adenocarcinoma.I | | met with Ashly and her daughter Nella, on 01/05/2019 at the | | [facility]. The patient's history | | includes chronic [...] pathological findings with Dr. Guevara Ernandez at [facility], who | | affirmed that the biopsy could be consistent with Linitis | | Plastica. Dr. Shukla agreed that the lack of endoscopic or | | radiographic findings is atypical and agreed that endoscopic | | ultrasound is indicated for further evaluation. Dr. Shukla' office | | will co-ordinate endoscopic ultrasound with [facility] | | Group in [place]. I will follow up with Ashly Ramirez after | | her next procedure to review the results and to establish a plan | | of management. | + + + + + | Rectal bleeding | 12/16/2018 | + + + + + | Overview: Added automatically from request for surgery | | [id number] | + + + + + | Diarrhea, unspecified type | 12/16/2018 | + + + + + | Overview: Added automatically from request for surgery | | [id number] | + + + + + | Chronic abdominal pain | 12/16/2018 | + + + + + | Overview: Added automatically from request for surgery | | [id number] | + + + + + | Benzodiazepine dependence | 12/16/2018 | + + + + + | Overview: Added automatically from request for surgery | | [id number] | + + + + + | Narcotic dependence, episodic use | 12/16/2018 | + + + + + | Overview: Added automatically from request for surgery | | [id number] | + + + + + | LUQ pain | 12/16/2018 | + + + + + | Overview: Added automatically from request for surgery | | [id number] | + + + + + | Alternating constipation and diarrhea | 12/16/2018 | + + + + + | Overview: Added automatically from request for surgery | | [id number] | + + + + + | Hematochezia | 12/16/2018 | + + + + + | Overview: Added automatically from request for surgery | | [id number] | + + + + + | Weight loss, unintentional | 12/16/2018 | + + + + + | Overview: Added automatically from request for surgery | | [id number] | + + + + + | [...] | + + + + | INFLUENZA, [id number], | 04/29/2009 | | | UNSPECIFIED | [...] | Left: | CONMED | | | [id number] | | on 07/04/2017 by Prakash, | | Toe | JOHN- 60020 | | | [address]28 | | Jose Sanon DPM at [facility] | | | | | | /[address] | | [facility] | | | | | | [phone] | | | | | | | | 952088 | | | | | | | | 968988 | | | | | | | | 653832 | | | | | | | | 356196 | | | | | | | | | | | | | | | | /[id number] | | | | | | | | 6 | + +------+--------+ +--------+--------+--------+ | .045 C-WireImplanted: Qty: 1 | | Left: | CONMED | | | [id number] | | on 07/04/2017 by Prakash, | | Toe | CONMED | | | 21273 | | [facility] | | | JOHN. | | | /[id number] | | [facility] | | | | | | 622377 | | | | | | | | 582667 | | | | | | | | 382275 | | | | | | | | 988043 | | | | | | | | 975912 | | | | | | | | | | | | | | | | /50666 | | | | | | | | 7 | + +------+--------+ +--------+--------+--------+ | .045 C-WireImplanted: Qty: 1 | | Left: | CONMED | | | [id number] | | on 07/04/2017 by Prakash, | | Toe | CONMED | | | 52838 | | Jose Sanon DPM at [facility] | | | JOHN. | | | /[address] | | [facility] | | | | | | 397602 | | | | | | | | 884879 | | | | | | | | 596014 | | | | | | | | 308100 | | | | | | | | 074979 | | | | | | | | | | | | | | | | /95120 | | | | | | | | 6 | + +------+--------+ +--------+--------+--------+ | Pip DartImplanted: Qty: 1 on | | Right: | ARTHREX | | 06/11/ | AR-415 | | 02/13/2018 by Jose Randall | | Toe | ARTHREX | | 2021 | 5PS-30 | | JACKIE Sanon at [facility] | | | INC. | | | 10 | | [facility] | | | | | | /+$$80 | | | | | | | | 559314 | | | | | | | | 936402 | | | | | | | | 77U | | | | | | | | /06870 | | | | | | | | 817 | + +------+--------+ +--------+--------+--------+ | Pip Trevor Implanted: Qty: 1 on | | Right: | ARTHREX | | 11/08/ | AR-415 | | 02/13/2018 by Prakash, | | Toe | ARTHREX | | 2022 | 4PS-30 | | Jose Sanon DPM at [facility] | | | INC. | | | 10 | | [facility] | | | | | | /+$$80 | | | | | | | | [phone] | | | | | | | | [phone] | | | | | | | | 47$ | | | | | | | | /09211 | | | | | | | [...] Toe | ARTHREX | | 2020 | /[id number] | | Qty: 1 on 02/13/2018 at [facility] | | | INC. | | | [id number] | | [facility] | | | | | | 004208 | | | | | | | | 204536 | | | | | | | | 151826 | | | | | | | | 965143 | | | | | | | | 761 | | | | | | | | /61849 | | | | | | | [...] + +--------+ | MEDICARE | MEDICA | [id number] | 10/11/19 | [phone] | | Medica | | | RE | | 04-Pre | 5 | | re | | | PART A | | sent | | | | | | AND B | | | | | | + +--------+ +--------+ + +--------+ | MODA | MODA | [id number] | 05/12/19 | [phone] | [address] | Indemn | | | HEALTH | | 17-Pre | 9 | [phone] | ity | | | MDCR | | sent | | [place], | | | | [place] | | | | [place] [address] | | + +--------+ +--------+ + +--------+ | MEDICARE | MEDICA | [id number] | 10/11/19 | [phone] | | Medica | | | RE | | 04-Pre | 5 | | re | | | PART A | | sent | | | | | | AND B | | | | | | + +--------+ +--------+ + +--------+ | MODA | MODA | [id number] | 05/12/19 | [phone] | [address] | Indemn | | | HEALTH | | 19-Pre | 9 | [address] | ity | | | MDCR | | sent | | [place], | | | | [place] | | | | [place] [address] | | + +--------+ +--------+ + +--------+ + +--------+ +--------+ + + | Guarantor Name | Accoun | Relation to | Date | Phone | Billing Address | | | t Type | Patient | of | | | | | | | | | | + +--------+ +--------+ + + | Ashly Ramirez | Person | Self | [birth year] | [address] | | | al/Fam | | 1941 | [phone] | [place], [place] | | | amrik | | | 9 (Home) | [address] | + +--------+ +--------+ + + | Ashly Ramirez | Person | Self | [birth year] | | [address] | | | al/Fam | | 1941 | [phone] | [place], [place] | | | [place] | | | 9 (Home) | [address] | + +--------+ +--------+ + + Advance Directives + + + + + | Type | Date Recorded | Patient | Explanation | | | | Cake 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
--- OUTSIDE RECORDS SUMMARY | ~2019-09-12 | XMS | Encounter Summary ---
Demographics + + + | Address | [address] | | | [place] [address] | + + + | Home Phone [...] [facility] | | | and Nenoana | + + + | Organization | [facility] | | | and [...] + | Matthew Ramirez | ECON | [address] | | | | | [place] | | | | | [address] | | + + + + + Care Team Providers + +------+ + | Care Wing Scorer Name | Role | Phone | + [...] / | Diagnoses | Gayla | [facility] | | | Services | General | 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 | General | | | Required | Surgery | adenocarcino | [address] | Surgery [address] | | | | | [address]hargav ([facility]) | [address] | [address] | | | | | | [place], [place] | [place], | | | | | | [address] | [place] [address] | | | | | | Phone: | Phone: | | | | | | [phone] | [phone] | | | | | | Fax: | Fax: | | | | | | [phone] | [phone] | +--------+ + + + + + Encounter Details +--------+---------+ + + + | Date | Type | Department | Care Team | Description | +--------+---------+ + + + | 01/07/ | Office | [facility] | Ana Mendez MD | Gastric | | 2019 | Visit | SURGERY [address] | [address] [facility] | adenocarcinoma (HCC) | | | | [place], [place] | [place] [address] | (Primary Dx) | | | | [address] | [phone] | | | | | [phone] | | | +--------+---------+ + + + [...] adenoma. COMMENT: A -- As part of [facility] Quality Improvement Program, this portion of the case h as been reviewed by another member of our pathology staff with subspecialty training in lisa rointestinal pathology. Results called to Dr. Shukla office ([place]) 12/24/18 10:15 AM. Discussed results on specimen [...] Impalnt Revision; Surgeon: Jose Randall DPM; Location: [facility] BLADDER REPAIR 1971 BLADDER SUSPENSION 2007 CARPAL TUNNEL RELEASE Bilateral CATARACT REMOVAL Right 03/2016 CHOLECYSTECTOMY, LAPAROSCOPIC 1997 COLECTOMY 2004 recurrent diverticulitis COLONOSCOPY 01/2018 One diminutive polyp COLONOSCOPY N/A 12/17/2018 Procedure: COLONOSCOPY; Surgeon: Matthew Shukla MD; Location: [facility] MEDICAL PROCEDURE UNIT FINGER SURGERY Left 2007 Thumb surgery for osteoarthritis FINGER SURGERY Left 11/2008 FINGER SURGERY Right 04/2012 Thumb surgery HAMMER TOE SURGERY Right 03/06/2017 Procedure: Correction Hammer Toes 2nd , 3rd, and 4th Toes; Surgeon: ANNIE Cuevas; Location: [facility] SURGERY HAMMER TOE SURGERY Left 07/04/2017 Procedure: CORRECTION HAMMERTOES 2, 3, 4; Surgeon: Jose Randall DPM; Location: [facility] DIONICIO WHEATLEYMO SURGERY HAMMER TOE SURGERY Left 2018 x3 KNEE ARTHROSCOPY Right 2001 PUBOVAGINAL SLING 10/16/2010 TVT Retropubic sling at [facility] SIGMOID COLECTOMY 12/20/2002 Franck Davis MD - [facility] AND O 1996 TONSILLECTOMY AND ADENOIDECTOMY 1948 TOTAL KNEE ARTHROPLASTY Right 07/11/2011 TUBAL LIGATION 1976 UPPER GASTROINTESTINAL ENDOSCOPY N/A 12/17/2018 Procedure: EGD; Surgeon: Matthew Shukla MD; Location: [facility] MEDICAL PROCEDURE UNIT URETHROPEXY 07/11/2010 Revision sling [...] MCG tablet Take 800 mcg by mouth. Plsgwcggwkl-Eotekbdkz-Jpm C-Mn (GLUCOSAMINE CHONDR 500 COMPLEX) CAPS 2 [...] has put in an urgent referral to [facility] erologist for a repeat EGD with [...] this chart may have been created with [employer] voice recognition software. Occasi onal wrong-word or [...]
--- OUTSIDE RECORDS SUMMARY | ~2019-09-12 | XMS | Encounter Summary ---
Demographics + + + | Address | [address] | | | [place] [address] | + + + | Home Phone | | + + + | Preferred Language | Unknown | + + + | Marital Status | | + + + | Voodoo Affiliation | Unknown | + + + | Race | Unknown | + + + | Ethnic Group | Unknown | + + + Author + + + | Author | [facility] | | | and Nenoana | + + + | Organization | [facility] | | | and Nenoana [...] + | Matthew Ramirez | ECON | [address] | | | | | [place] | | | | | [address] | | + + + + + Care Team Providers + +------+ + | Care Spot Welder Line Name | Role | Phone | + [...] | | [address] | [place] [address] | | | | | [address] | | | | | | [phone] | | | +--------+ + + + [...] | EXTERNAL LAB: ODAL[facility] | Routin | 08/04/2018 | | Results [...] | EXTERNAL LAB: ALT | Routin | 08/04/2018 | | Results for this | | | e | | | procedure are in the | | | | | | results section. | + +--------+ + + + | EXTERNAL LAB: AST | Routin | 08/04/2018 | | Results [...] | Blood | + + External Lab: [facility] (08/04/2018) + +-------+ + + + | [...]
--- OUTSIDE RECORDS SUMMARY | ~2019-09-12 | XMS | Encounter Summary ---
Demographics + + + | Address | [address] | | | [place] [address] | + + + | Home Phone | | + + + | Preferred Language | Unknown | + + + | Marital Status | | + + + | Mandaeism Affiliation | Unknown | + + + | Race | Unknown | + + + | Ethnic Group | Unknown | + + + Author + + + | Author | [facility] | | | and [place] | + + + | Organization | [facility] [...] + | Matthew Ramirez | ECON | [address] | | | | | [place] | | | | | [address] | | + + + + + Care Team Providers + +------+ + | Care Acquisition Consultant Name | Role | Phone | [...] | | Disease of | | MD Sukumar | | | | | stomach | | [address] | | | | | Disease of | | [address] [address] | | | | | stomach | | [place] | | | | | [K31.9] | | [address] Phone: | | | | | Procedures | | [phone] | | | | | [place] | | Fax: | | | | | ESOPHAGOGAST | | [phone] | | | | | RODUODENOSCO | | | | | | | PY TRANSORAL | | | | | | | DIAGNOSTIC | | | | | | | DE EDG US | | | | | [...] + + + + | 01/13/ | Hospital | [facility] | Sukumar Stevenson MD | 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 | Encounter | [facility] | [address] [place] | of overlapping sites | | | | INTRA OP [address] | [address] [place] | of stomach (HCC) | | | | [address] [place] | [address] | | | | | [address] | | | | | | [phone] | | | +--------+ + + + [...] | | | ol (ADVAIR, WIXELA | morning. [...] | | | ol (RHONDA ROSE | needed (in evening | | | [...] documented as of this encounter Progress Notes Rosie Burgos RN - 01/13/2019 1:35 PM PDTAVS discussed w/pt and ride home. Denies nause a and pain. PIV d/c'd. Feels comfortable w/plan. Belongings gathered, nothing missing. No ot her issues. MD in to see. D/C to home. Electronically signed by: Rosie Burgos RN 01/13/2019 13:35 documented in this en counter Plan of Treatment Not on filedocumented as of this encounter Procedures + +--------+ + + + | Procedure Name | Priori | Date/Time | Associated Diagnosis | Comments | | | ty | | | | + +--------+ + + + | TISSUE REQUEST FOR | Routin | 01/13/2019 | | Results for this | | PATHOLOGY (NON-ORD) | e | 12:45 PM | | procedure are in the | | | | PDT | | results section. | + +--------+ + + + | EGD | | 01/13/2019 | Disease of stomach | | | | | 12:10 PM | | | | | | PDT | | | + +--------+ + + + +---+--------+ | | | | | Specia | | | l | | | Needs | | | GA | +---+--------+ + +---+ + +---+ | ENDOSCOPIC | | 01/13/2019 | Disease of stomach | | | ULTRASOUND (UPPER) | | 12:10 PM | | | | | | PDT | | | + +---+ + +---+ +---+--------+ | | | | | Specia | | | l | | | Needs | | | GA | +---+--------+ + +--------+ +---+ + | ENDOSCOPIC | Routin | 01/13/2019 | | Results for this | | ULTRASOUND (UPPER) | e | 11:39 AM | | procedure are in the | | | | PDT | | results section. | + +--------+ +---+ + | ECG 12 LEAD | Routin | 01/13/2019 | | Results for this | | | e | 10:07 AM | | procedure are in the | | | | PDT | | results section. | + +--------+ +---+ + | POC GLUCOSE | Routin | 01/13/2019 | | Results for this | | | e | 10:06 AM | | procedure are in the | | | | PDT | | results section. | + +--------+ +---+ + documented in this encounter Results Tissue Request For Pathology (01/13/2019 12:45 PM PDT) + + | Specimen | + + | | + + + + + | Narrative | Performed At | + + + | | [facility] | | [facility] | [facility] | | : 1940 AGE: 78 years SEX: Female | [facility]ENTER | | | LABORATORY | | Acct: [id number] Location: | [facility] | | [facility]; [facility] MEDICAL PROCEDURE UNIT POOL; [facility] | | | MEDICAL PROCEDURE UNIT POOL | | | Case #: [id number] Ordering: | | | SUKUMAR STEVENSON MD Client: [facility] | | | [facility] Copy To: | | | Printed: 01/20/2019 09:40 PDT | | | SURGICAL PATHOLOGY FINAL REPORTCollected: | | | Received: | | | Responsible Pathologist:01/13/2019 12:45 PDT | | | 01/13/2019 13:25 PDT [facility] | | | DIAGNOSIS:A. Gastric antrum at greater curvature, biopsy: | | | Adenocarcinoma. | | | Scant tumor cells are found in muscularis mucosa/submucosa. | | | No intramucosal tumor is seen. | | | Mild inactive chronic gastritis. | | | Helicobacter specific immunohistochemical stain is negative with | | | appropriate staining of controls.B. Gastric antrum at lesser | | | curvature, biopsy: | | | Mild inactive chronic gastritis. | | | No intestinal metaplasia, dysplasia or malignancy is found.C. | | | Angularis, biopsy: | | | Adenocarcinoma. | | | Sparse tumor cells are found within the the lamina propria in a | | | 1mm focus. | | | Mild inactive chronic gastritis.D. Gastric body at greater | | | curvature, biopsy: | | | Adenocarcinoma. | | | Tumor cells are found within the lamina propria in one biopsy, | | | and within muscularis propria/ submucosa in all of four biopsy | | | fragments. | | | Mild inactive chronic gastritis.E. Gastric body at lesser | | | curvature, biopsy: | | | Adenocarcinoma. | | | Tumor cells are found within the lamina propria in two biopsy | | | fragments. | | | Mild inactive chronic gastritis.F. Gastric fundus, biopsy: | | | Adenocarcinoma. | | | Tumor cells are found within the lamina propria and muscularis | | | propria/ submucosa in four of five biopsy fragments. | | | Mild inactive chronic gastritis.[facility] 01/14/19 01:36 pmVerified | | | by: ANNABELLE FULLER MDVerify Date: 01/20/2019 09:40 [facility] | | | [facility] [address] | | | SURGICAL PATHOLOGY FINAL REPORTCollected: | | | Received: | | | Responsible Pathologist:01/13/2019 12:45 PDT | | | 01/13/2019 13:25 PDT ANNABELLE FULLER | | | TCOMMENT:The slides show a somewhat sparse infiltrate of epithelioid | | | cells consistent with adenocarcinoma with a wide distribution within | | | the stomach. Most of the cells are found in the deep mucosa and | | | submucosa. An in situ component or clear epicenter is not | | | identified. Due to the histologic subtlety of the invasive tumor, | | | pancytokeratin stains were performed on all blocks (A1-F1) and most of | | | these stains highlight additional tumor foci that were not evident on | | | H&E. The tumor cells express pancytokeratin and Mary-3 (blocks D1, | | | E1, F1) and are negative for CDX-2 (block E1) and mucicarmine (block | | | C1). There is focal weak estrogen receptor expression (blocks D1, | | | F1). A Ki-67 stain (block C1) shows a low proliferative fraction. | | | The findings raise the possibility of a metastasis, especially | | | metastatic lobular breast cancer rather than a primary gastric tumor. | | | All controls stain appropriately.As a part of our quality process lead | | | policy, this case has been reviewed by Dr. Tan, specialist in | | | gastrointestinal pathology.GROSS DESCRIPTION:The specimen is received | | | in six parts, each in formalin.Labeled and designated "Showaker, A: | | | antrum/greater curve biopsies" are three fragments of caraballo soft tissue | | | 0.3 to 0.4 cm. Submitted entirely in "A1".Labeled and designated | | | "Showaker, B: antrum/lesser curve biopsies" are four fragments of caraballo | | | soft tissue 0.3 to 0.5 cm. Submitted entirely in "B1".Labeled and | | | designated "Showaker, C: angularis biopsies" are three fragments of | | | caraballo soft tissue 0.3 to 0.6 cm. Submitted entirely in "C1".Labeled | | | and designated "Showaker, D: gastric body/greater curve biopsies" are | | | four fragments of caraballo soft tissue 0.2 to 0.5 cm. Submitted entirely | | | in "D1".Labeled and designated "Showaker, E: gastric body/lesser curve | | | biopsies" are three fragments of caraballo soft tissue 0.1 to 0.4 cm. | | | Submitted entirely in "E1".Labeled and designated "Showaker, F: | | | fundus biopsies" are five fragments of caraballo soft tissue 0.1 to 0.4 cm. | | | Submitted entirely in "F1".CZ/DB09/04/19MICROSCOPIC | | | DESCRIPTION:Histologic sections of all submitted blocks are examined | | | by light microscopy. Thesefindings, together with the gross | | | examination, support the pathologic diagnosis.Ancillary studies were | | | performed on this case with appropriate controls showing appropriate | | | reactivity. These tests may not have been cleared or approved by the | | | U.S. Food and Drug Administration. The FDA has determined that such | | | clearance or approval is not necessary, since such tests were | | | developed and their performance characteristics determined by [facility]. This test is used for clinical | | | purposes. It should not be regarded as investigational or for | | | research. [facility] is certified under the Clinical | | | Laboratory Improvement Amendments of 1988 (CLIA) as qualified to | | | perform high complexity clinical laboratory testing. | | + + + + + + + + | Performing | Address | City/State/Zipcode | Phone Number | | Organization | | | | + + + + + | [facility] | [address] | [place] [address] | | | [facility] | | | | | LABORATORY EZE | | | | + + + + + EUS Upper (01/13/2019 11:39 AM PDT) + + | Specimen | + + | | + + + + + | Narrative | Performed At | + + + | [facility] | [place] | | [facility] | [place] | | CenterGI | | | Patient Name: Ashly Ramirez Procedure | | | Date: 01/13/2019 11:39 AMMRN: [id number] | | | of : 1940 | | | Note Status: FinalizedAttending MD: SUKUMAR STEVENSON MD | | | | | | Procedure Type: Upper EUSIndications: | | | Abnormal endoscopyPatient Profile: Patient presents to | | | endoscopy for evaluation of recently | | | diagnosed gastric adenocarcinoma on 1 of the | | | random biopsies during EGD performed by Dr. SanReferring: | | | MATTHEW SAN, MDMedicines: Monitored | | | Anesthesia CareComplications: No immediate | | | complications. | | | Procedure: Pre-Anesthesia Assessment: | | | - Prior to the procedure, a History and Physical was performed, and | | | patient medications and allergies were reviewed. The patient's | | | tolerance of previous anesthesia was also reviewed. The risks | | | and benefits of the procedure and the sedation options and | | | risks were discussed with the patient. All questions were | | | answered, and informed consent was obtained. Prior | | | Anticoagulants: The patient has taken no previous anticoagulant or | | | antiplatelet agents. ASA Grade Assessment: III - A patient with | | | severe systemic disease. After reviewing the risks and | | | benefits, the patient was deemed in satisfactory condition to | | | undergo the procedure. After informed consent was obtained | | | including risks, benefits and alternatives, the endoscope was | | | passed under direct vision. Throughout the procedure, the | | | patient's blood pressure, pulse, and oxygen saturations were | | | monitored continuously. The endoscope was introduced through | | | the mouth, and advanced to the duodenal bulb. The endoscope was | | | introduced through the mouth, and advanced to the second part of | | | duodenum. The upper EUS was accomplished without difficulty. The | | | patient tolerated the procedure well. | | | | | | Findings: ENDOSCOPIC FINDING: : | | | The examined esophagus was normal. The Z-line was regular and | | | was found 44 cm from the incisors. There were multiple specks of | | | altered blood seen throughout the gastric lumen. There was | | | moderate erythema of the gastric body and antrum. It appeared | | | that the gastric body and was not insufflating well and was | | | restricted raising concern for linitis. No ulcers or mass lesions were | | | identified. In the gastric antrum, in the prepyloric region, a | | | small submucosal lesion was seen. The duodenal bulb and | | | second portion of the duodenum were normal. A radial | | | echoendoscope was then introduced. The entire gastric mucosa | | | was carefully examined. There was no abnormal wall thickening seen | | | throughout the stomach. No hypoechoic lesions were identified. No | | | perigastric lymphadenopathy was seen. Even in the gastric body, | | | the wall layers did not appear thickened. The submucosal | | | lesion in the gastric prepyloric antrum was consistent with a | | | small lipoma After that, the upper endoscope was reintroduced | | | and gastric mapping biopsies were performed with multiple | | | biopsies taken from gastric antrum greater curvature, gastric | | | antrum lesser curvature, angularis, gastric body greater | | | curvature, gastric body lesser curvature and gastric fundus | | | | | | Impression: 1. Gastritis | | | involving the gastric body and antrum, now status post mapping | | | biopsies throughout the stomach 2. On EUS, no abnormal wall | | | thickening or hypoechoic mass lesions or perigastric | | | lymphadenopathy identified 3. On endoscopy, the restricted | | | insufflation raised concern for linitis though, but wall layers | | | appeared normal on EUS 4. Small submucosal lesion in the | | | prepyloric gastric antrum which is consistent with a lipoma | | | | | | Recommendation: - | | | Patient has a contact number available for emergencies. The signs and | | | symptoms of potential delayed complications were discussed with | | | the patient. Return to normal activities tomorrow. Written | | | discharge instructions were provided to the patient. - | | | Resume previous diet. - Continue present medications. - | | | Await path results. - Return to referring physician in 1 week. | | | | | | | | | SUKUMAR STEVENSON MD01/13/2019 1:07:25 PMThis report has | | | been signed electronically. Note Initiated On: 01/13/2019 11:39 AMNumber | | | of Addenda: 0 [facility] - | | | Endoscopy Services | | | | | |SUKUMAR STEVENSON MD | | |01/13/2019 1:07:25 PM | | |This report has been signed electronically. | | | | | |Note Initiated On: 01/13/2019 11:39 AM | | |Number of Addenda: 0 | | | | | | [facility] | | + + + + +---------+ + + | Performing | Address | City/State/Zipcode | Phone Number | | Organization | | | | + +---------+ + + | [place] | | | | + +---------+ + + ECG 12 lead (01/13/2019 10:07 AM PDT) + + | Specimen | + + | | + + + + + | Narrative | Performed At | + + + | HEART RATE:68 | [facility] | | bpmRR Interval:882 msAtrial Rate:68 msP-R Interval:172 msP | [facility] | | Duration:172 msP Horizontal Surrey:28 degP Front [place]:60 degQ Onset:512 | | | msQRSD Interval:136 msQT Interval:448 msQTcB:477 msQTcF:467 msQRS | | | Horizontal Surrey:150 degQRS Surrey:-35 degI-40 Horizontal [place]:34 degI-40 | | | Front [place]:74 degT-40 Horizontal [place]:151 degT-40 Front [place]:-77 degT | | | Horizontal [place]:8 degT Wave [place]:51 degS-T Horizontal [place]:21 degS-T | | | Front [place]:83 degSeverity:- ABNORMAL ECG -INTERP:SINUS | | | RHYTHMINTERP:VENTRICULAR PREMATURE COMPLEXINTERP:RBBB AND | | | LAFBINTERP:LEFT VENTRICULAR HYPERTROPHYElectronically signed by: | | | ANDREAS MAXWELL 01-18-2019 07:24:33 | | |QTcF:467 ms | | |QRS Horizontal Surrey:150 deg | | |QRS Surrey:-35 deg | | |I-40 Horizontal [place]rey:34 deg | | |I-40 Front [place]:74 deg | | |T-40 Horizontal [place]:151 deg | | |T-40 Front [place]:-77 deg | | |T Horizontal [place]:8 deg | | |T Wave [place]:51 deg | | |S-T Horizontal [place]:21 deg | | |S-T Front [place]:83 deg | | |Severity:- ABNORMAL ECG - | | |INTERP:SINUS RHYTHM | | |INTERP:VENTRICULAR PREMATURE COMPLEX | | |INTERP:RBBB AND LAFB | | |INTERP:LEFT VENTRICULAR HYPERTROPHY | | |Electronically signed by: ANDREAS MAXWELL 01-18-2019 07:24:33 | | + + + + + + + + | Performing | Address | City/State/Zipcode | Phone Number | | Organization | | | | + + + + + | [facility] | [address] | [place] [address] | [phone] | + + + + + POC Glucose (01/13/2019 10:06 AM PDT) + + + + + + | Component | Value | Ref Range | Performed | Pathologist | | | | | At | Signature | + + + + + + | Glucose, | 111 (H)Comment: | 65 - 99 mg/dL | [facility] | | | POC | Performed by [facility] [address] | | [facility] | | | [address] [place] | | HEART | | | | [address] | | MEDICAL | | | | | | CENTER | | | | | | LABORATORY | | | | | | [place] | | + + + + + + + + | Specimen | + + | Blood specimen | | (specimen) | + + + + + + + | Performing | Address | City/State/Zipcode | Phone Number | | Organization | | | | + + + + + | [facility] | [address] | [place] [address] | | | [facility] | | | | | LABORATORY [facility] | | | | + + + [...] | | + +--------+---------+------+------+------+ + +---+ | atenolol (TENORMIN) tablet 12.5 | | | mg 12.5 mg, Oral, PRN, SEE | | | ADMIN INST., Starting Fri01/13/19 | | | at 0931, Only for patients who | | | take a DAILY beta-josep as | | | listed on "home" or "current" | | | medication lists. Hold if any of | | | the following apply: 1) Patient | | | took a beta-josep the day prior | | | to surgery OR the day of | | | surgery; 2) SBP < 100 mmHg; 3) | | | HR < 50; 4) Patient is | | | having or underwent cardiac | | | procedure today (surgery, | | | electophysiology procedure, | | | cardioversion.), Pre-op | | + +---+ | | | + +---+ | balanced electrolytes in water | | | (PLASMALYTE-148/NORMOSOL-R) | | | infusion at 10-100 mL/hr, | | | Intravenous, CONTINUOUS, Starting | | | Fri01/13/19 at 1000, TKO. Use | | | this instead of LR if both are | | | ordered., Pre-op | | + +---+ | | [...] glucose < 50, | | | Starting Fri01/13/19 at 0931, | | | Repeat in 15 min if blood glucose | | | remains < 70 mg/dL. Repeat | | | blood glucose in 30 min once | | | blood glucose > 70., Pre-op | | + +---+ | | | + +---+ | insulin lispro (humaLOG) | | | injection (vial) 0-12 Units 0-12 | | | Units, Subcutaneous, 4 TIMES | | | DAILY WITH MEALS & NIGHTLY, First | | | dose on Fri01/13/19 at 1200, | | | CORRECTION SCALE: Blood Glucose | | | (BG) < 150: None | | | BG 150-200: DAY: 2 units. | | | NIGHT: 0 units BG 201-250: DAY: | | | 4 units. NIGHT: 2 units BG | | | 251-300: DAY: 6 units. NIGHT: | | | 4 units BG 301-350: DAY: 8 | | | units. NIGHT: 6 units BG | | | 351-400: DAY: 10 units. NIGHT: 8 | | | units BG > 400 : DAY: 12 | | | units. NIGHT: 10 units | | | AND CALL PROVIDER | | | , Use DAY DOSE for doses | | | scheduled: AC, NPO, Daytime | | | 7877-2136 Use NIGHT DOSE for | | | doses scheduled: HS, 3AM, | | | Nighttime 9205-7427 If the BG is | | | not checked before the patient | | | starts eating, do not give | | | correction insulin. If HS insulin | | | given, check blood glucose at | | | 3AM. Only for use with U-100 | | | insulin syringe., Pre-op | | + +---+ | | | + +---+ + +---------+ +---+-------+---+ | lactated ringers (LR) infusion | New Bag | 01/14/20 | | 100 | | | at 100 mL/hr, Intravenous, | | 19 10:20 | | mL/hr | | | CONTINUOUS, Starting Fri01/13/19 | | AM PDT | | | | | at 1000, Pre-op | | | | | | + +---------+ +---+-------+---+ +---+---+ | | | +---+---+ documented in this encounter
--- OUTSIDE RECORDS SUMMARY | ~2019-09-12 | XMS | Encounter Summary ---
Demographics + + + | Address | [address] | | | [place] [address] | + + + | Home Phone | | + + + | Preferred Language | Unknown | + + + | Marital Status | | + + + | Gnosticism Affiliation | Unknown | + + + | Race | Unknown | + + + | Ethnic Group | Unknown | + + + Author + + + | Author | [facility] | | | and [place] | + + + | Organization | [facility] | | | and [...] + | Matthew Ramirez | ECON | [address] | | | | | [place] | | | | | [address] | | + + + + + Care Team Providers + +------+ + | Care Automobile Drivers Name | Role | Phone | + [...] + | 01/25/ | Telephone | [facility] | Arpan, | Family/caregiver | | 2019 | | MED [facility] | Lius Richards MD [address] | Concerns | | | | [facility] [address] | [facility] | | | | | [address] | [place] [address] | | | | | [place] [address] | [phone] | | | | | [phone] | | | +--------+ + + + [...]
--- OUTSIDE RECORDS SUMMARY | ~2019-09-12 | XMS | Encounter Summary ---
Demographics + + + | Address | [address] | | | [place] [address] | + + + | Home Phone | | + + + | Preferred Language | Unknown | + + + | Marital Status | | + + + | Mosque Affiliation | NRP | + + + [...] + | Matthew Ramirez | ECON | [address] | | | | | [place] | | | | | [address] | | + + + + + | Nella Haque | ECON | Unknown | | + + + + + Care Team Providers + +------+ + | Care Produce Department Supervisor Name | Role | Phone [...]
--- OUTSIDE RECORDS SUMMARY | ~2019-09-12 | XMS | Encounter Summary ---
Demographics + + + | Address | [address] | | | [place] [address] | + + + | Home Phone | | + + + | Preferred Language | Unknown | + + + | Marital Status | | + + + | Buddhist Affiliation | Unknown | + + + | Race | Unknown | + + + | Ethnic Group | Unknown | + + + Author + + + | Author | [facility] | | | and [place] | + + + | Organization | [facility] | | | and [place] | [...] + | Matthew Ramirez | ECON | [address] | | | | | [place] | | | | | [address] | | + + + + + Care Team Providers + +------+ + | Care Outbound Sales Executive Name | Role | Phone | [...] | | | | Gastric mass | [place], [place] | [place] | | | | | Procedures | [address] | [address] Phone: | | | | | Urgent- | Phone: | [phone] | | | | | EGD + EUS | [phone] | Fax: | | | | | NEXT WEEK | Fax: | [phone] | | | | | | [phone] | | +--------+ + + + + + Encounter Details +--------+ + + + + | Date | Type | Department | Care Team | Description | +--------+ + + + + | 01/06/ | Orders Only | [facility] | Matthew Shukla MD | Gastric | | 2019 | | GASTROENTEROLOGY | [address] | adenocarcinoma (HCC) | | | | [address] [facility] | [place], [place] | (Primary Dx) | | | | [address] [place] | [address] | | | | | [address] | [phone] | | | | | [phone] | | | +--------+ + + + [...] Shukla notified patient needed Urgent referral to [facility] for Eval Egd/EUS of gastric adenocarcinoma r/o [...] Gastroenterology | | | | | | ([place]) | | | | | + + +--------+ + + documented as of this encounter Visit Diagnoses + + | Diagnosis | + + | Gastric adenocarcinoma (HCC) - Primary Malignant neoplasm of stomach, unspecified | | site | + + documented in this encounter"
--- OUTSIDE RECORDS SUMMARY | ~2019-09-12 | XMS | Encounter Summary ---
Demographics + + + | Address | [address] | | | [place] [address] | + + + | Home Phone | | + + + | Preferred Language | Unknown | + + + | Marital Status | | + + + | Anabaptist Affiliation | Unknown | + + + | Race | Unknown | + + + | Ethnic Group | Unknown | + + + Author + + + | Author | [facility] | | | and Nenoana | + + + | Organization | [facility] | | [...] + | Matthew Gomez | ECON | [address] | | | | | [place] | | | | | [address] | | + + + + + Care Team Providers + +------+ + | Care Business Analyst Intern Name | Role | Phone | + [...] | | | | [K31.9] | | [address] Phone: | | | | | Procedures | | [phone] | | | | | [place] | | Fax: | | | | | ESOPHAGOGAST | | [phone] | | | | | RODUODENOSCO | | | | | | | PY TRANSORAL | | | | | | | DIAGNOSTIC | | | | | | | OK EDG US | | | | | [...] Description | +--------+---------+ + + + | 01/13/ | Surgery | [facility] | Sukumar Stevenson MD | ENDOSCOPIC | | 2019 | | [facility] | [address] [place] | ULTRASOUND, EGD | | | | INTRA OP [address] | [address] | | | | | [address] | [address] | | | | | [address] | | | | | | [phone] | | | +--------+---------+ + + + [...] 0.25 mg by | | 0 | // | | | 0.25 mg tablet | [...] gathered, nothing missing. No ot her issues. in to see. D/C to home. Electronically [...] + + | | [facility] | | ASHLY GOMEZ | BATH | | : 1940 AGE: 78 years SEX: Female | [facility] | | | LABORATORY | | Acct: [id number] Location: | [facility] | | [facility]; [facility] MEDICAL PROCEDURE UNIT BULGER; [facility] | | | MEDICAL PROCEDURE UNIT BULGER | | | Case #: [id number] Ordering: | | | SUKUMAR STEVENSON MD Client: [facility] | | | [facility] Copy To: | | | Printed: 01/20/2019 09:40 PDT | | | SURGICAL PATHOLOGY FINAL REPORTCollected: | | | Received: | | | Responsible Pathologist:01/13/2019 12:45 PDT | | | 01/13/2019 13:25 PDT ANNABELLE FULLER | | | DIAGNOSIS:A. Gastric antrum at [...] fragments. | | | Mild inactive chronic gastritis.[facility]/SK 01/14/19 01:36 pmVerified | | | by: ANNABELLE FULLER MDVerify Date: 01/20/2019 09:40 [facility] | | | [facility] [address] | | | SURGICAL PATHOLOGY FINAL REPORTCollected: [...] controls stain appropriately.As a part of our principal quality engineer | | | policy, this case has [...] cm. | | | Submitted entirely in "F1".CZ/DB09/08/28MICROSCOPIC | | | DESCRIPTION:Histologic sections of all [...] developed and their performance characteristics determined by [facility]. This test is used for clinical | | | purposes. It should not be regarded as investigational or for | | | research. [facility] is certified under the Clinical | | | Laboratory Improvement Amendments of 1988 (CLIA) as qualified to | | | perform high complexity clinical laboratory testing. | | + + + + + + + + | Performing | Address | City/State/[facility] [[email or web address] | Phone Number | | Organization | | | | + + + + + | [facility] | [address] [place] [address]. | [place] [address] | | | [facility] | | | | | LABORATORY [place] | | | | + + + + + EUS Upper (01/13/2019 11:39 AM PDT) + + | Specimen | + + | | + + + + + | Narrative | Performed At | + + + | [facility] | [facility]ZZ [facility]REW | | [facility] | PROVATION | | CenterGI | | | Patient Name: Ashly Gomez Procedure | | | Date: 01/13/2019 11:39 AMMRN: [id number] | | | of : 1940 | [...] Dr. SanReferring: | | | MATTHEW SAN, [facility]ENTERedicines: Monitored | | | Anesthesia CareComplications: No [...] AMNumber | | | of Addenda: 0 [facility] - | | | Endoscopy Services | | | | | |SUKUMAR STEVENSON MD | | |01/13/2019 1:07:25 PM | | |This report has been signed electronically. | | | | | |Note Initiated On: 01/13/2019 11:39 AM | | |Number of Addenda: 0 | | | | | | [facility] End[facility] | | + [...] | TRACEMASTER | | Duration:172 msP Horizontal [place]:28 degP Front [place]:60 degQ Onset:512 | | | msQRSD Interval:136 msQT Interval:448 msQTcB:477 msQTcF:467 msQRS | | | Horizontal [place]:150 degQRS [place]:-35 degI-40 Horizontal [place]:34 degI-40 | | | Front [place]:74 degT-40 Horizontal [place]:151 degT-40 Front [place]:-77 degT | | | Horizontal [place]:8 degT Wave [place]:51 degS-T Horizontal [place]:21 degS-T | | | Front [place]:83 degSeverity:- ABNORMAL ECG -INTERP:SINUS | | | RHYTHMINTERP:VENTRICULAR PREMATURE COMPLEXINTERP:RBBB AND | | | LAFBINTERP:LEFT VENTRICULAR HYPERTROPHYElectronically signed by: | | | ANDREAS MAXWELL 01-18-2019 07:24:33 | | |QTcF:467 ms | | |QRS Horizontal [place]:150 deg | | |QRS [place]:-35 deg | | |I-40 Horizontal [place]:34 deg | | |I-40 Front [place]:74 deg | | |T-40 Horizontal [place]:151 deg | | |T-40 Front [place]:-77 deg | | |T Horizontal [place]:8 deg | | |T Wave [place]:51 deg | | |S-T Horizontal [place]:21 deg | | |S-T Front [place]:83 deg | | |Severity:- ABNORMAL ECG - [...] | + + + + + | [facility] | [address] | [place] [address] | [phone] | + + + + + POC Glucose (01/13/2019 10:06 AM PDT) + + + + + + | Component | Value | Ref Range | Performed | Pathologist | | | | | At | Signature | + + + + + + | Glucose, | 111 (H)Comment: | 65 - 99 mg/dL | [facility] | | | POC | Performed by [facility] [address] | | SACRED | | | | [address] [place] | | HEART | | | | [address] | | MEDICAL | | | | [...] + + | [facility] | [address] | [place] [address] | | | [facility] | | | | | LABORATORY CERNER | | | | + + + + + documented in this encounter Visit Diagnoses + + | Diagnosis | + + | Disease of stomach Unspecified disorder of stomach and duodenum | + + documented in this encounter [...] scheduled: AC, NPO, Daytime | | | 9437-6664 Use NIGHT DOSE for | | | doses scheduled: HS, 3AM, | | | Nighttime 7587-2979 If the BG is | | | [...] | mL/hr | | | CONTINUOUS, Starting 01/13/19 | | AM PDT | | | | | at 1000, Pre-op | | | | | | + +---------+ +---+-------+---+ +---+---+ | | | +---+---+ documented in this encounter
--- OUTSIDE RECORDS SUMMARY | ~2019-09-12 | XMS | Encounter Summary ---
Demographics + + + | Address | [address] | | | [place] [address] | + + + | Home Phone [...] + | Matthew Ramirez | CHRIS | [address] | | | | | [place] | | | | | [address] | | + + + + + | Nella Haque | ECON | Unknown | | + + + + + Care Team Providers + +------+ + | Care Streetcar Conductor Name | Role | Phone | + [...] [place] | (Constipation) | | | | [facility] | [place], [place] | | | | | for Health and | [address] | | | | | Healing [address] | [phone] | | | | | [place], [place] | | | | | | [address] | | | | | | [phone] | | | +--------+ + + + [...]
--- OUTSIDE RECORDS SUMMARY | ~2019-09-12 | XMS | Encounter Summary ---
Demographics + + + | Address | [address] | | | [place] [address] | + + + | Home Phone [...] Author | [facility] | | | and Nenoana | + + + | Organization | [facility] | | | and [...] + | Matthew Ramirez | ECON | [address] | | | | | [place] | | | | | [address] | | + + + + + Care Team Providers + +------+ + | Care Director Student Union Name | Role | Phone | + [...] + + | 03/18/ | Telephone | [facility] | Arpan | Coordination Of Care | | 2019 | | MED [facility] | Luis Richards MD [address] | | | | | [address] | [facility] | | | | | [facility] | [place] [address] | | | | | [place] [address] | [phone] | | | | | [phone] | | | +--------+ + + + [...]
--- OUTSIDE RECORDS SUMMARY | ~2019-09-12 | XMS | Encounter Summary ---
Demographics + + + | Address | [address] | | | [place] [address] | + + + | Home Phone [...] + | Matthew Ramirez | ECON | [address] | | | | | [place] | | | | | [address] | | + + + + + | Nella Haque | ECON | Unknown | | + + + + + Care Team Providers + +------+ + | Care Wardrobe Consultant Name | Role | Phone | [...]
--- OUTSIDE RECORDS SUMMARY | ~2019-09-12 | XMS | Encounter Summary ---
Demographics + + + | Address | [address] | | | [place] [address] | + + + | Home Phone | | + + + | Preferred Language | Unknown | + + + | Marital Status | | + + + | Christian Affiliation | Unknown | + + + | Race | Unknown | + + + | Ethnic Group | Unknown | + + + Author + + + | Author | [facility] | | | and Nenoana | + + + | Organization | [facility] [...] + | Matthew Ramirez | ECON | [address] | | | | | [place] | | | | | [address] | | + + + + + Care Team Providers + +------+ + | Care Tangled Yarn Spool Straightener Name | Role | Phone | + [...] | | | [address] | [place] [address] | | | | | [place] [address] | | | | | | [phone] | | | +--------+ + + + [...]
--- OUTSIDE RECORDS SUMMARY | ~2019-09-12 | XMS | Encounter Summary ---
Demographics + + + | Address | [address] | | | [place] [address] | + + + | Home Phone [...] Author | [facility] | + + + | Organization | [facility] | + + + | Address | Unknown | + + + | Phone | Unavailable | + + + Support + + + + + | Name | Relationship | Address | Phone | + + + + + | Matthew Ramirez | CHRIS | [address] | | | | | [place] | | | | | [address] | | + + + + + | Nella Haque | ECON | Unknown | | + + + + + Care Team Providers + +------+ + | Care Tour Coordinator Name | Role | Phone | [...] (call back requested | | | | [facility] | [place], [place] | ) | | | | for Health and | [address] | | | | | Healing [address] | [phone] | | | | | Ave [place], [place] | | | | | | [address] | | | | | | [phone] | | | +--------+ + + + [...]
--- OUTSIDE RECORDS SUMMARY | ~2019-09-12 | XMS | Encounter Summary ---
Demographics + + + | Address | [address] | | | [place] [address] | + + + | Home Phone | | + + + | Preferred Language | Unknown | + + + | Marital Status | | + + + | Sabianism Affiliation | NRP | + + + [...] + | Matthew Ramirez | CHRIS | [address] | | | | | [place] | | | | | [address] | | + + + + + | Nella Haque | ECON | Unknown | | + + + + + Care Team Providers + +------+ + | Care White Hat Hacker Name | Role | Phone | + [...] | | | | | | | [place] | | | | | | | [address] | | | | | | | [address] | | | | | | | [facility] | | | | | | | [place], [place] | | | | | | | [address] | | | | | | | Phone: | | | | | | | [phone] | | | | | | | Fax: | | | | | | | [phone] | +--------+--------+ + + + + Encounter [...] | | | [address] | [facility] | | | | | [address] | [place], [place] | | | | | Pavilion, 7th floor | [address] | | | | | [place], [place] | [phone] | | | | | [address] | | | | | | [phone] | | | +--------+ + + + [...]
--- OUTSIDE RECORDS SUMMARY | ~2019-09-12 | XMS | Encounter Summary ---
Demographics + + + | Address | [address] | | | [place] [address] | + + + | Home Phone | | + + + | Preferred Language | Unknown | + + + | Marital Status | | + + + | Gnosticism Affiliation | NRP | + + + [...] + | Matthew Ramirez | CHRIS | [address] | | | | | [place] | | | | | [address] | | + + + + + | Nella Haque | ECON | Unknown | | + + + + + Care Team Providers + +------+ + | Care Needle Loom Tender Name | Role | Phone | + +------+ + | Long Copeland MD | PCP | | + +------+ + Encounter Details +--------+ + + + + | Date | Type | Department | Care Team | Description | +--------+ + + + + | 08/22/ | Outside | UNKNOWN DEPARTMENT | Other, Faculty | | | 2019 | Records | [address] [facility] | [phone] | | | | | [place] | | | | | | [place], [place] | | | | | | [address] | | | +--------+ + + + [...]
--- OUTSIDE RECORDS SUMMARY | ~2019-09-12 | XMS | Encounter Summary ---
Demographics + + + | Address | [address] | | | [place] [address] | + + + | Home Phone [...] + | Author | [facility] | | | and Nenoana | + + + | Organization | [facility] | | | and [...] + | Matthew Ramirez | ECON | [address] | | | | | [place] | | | | | [address] | | + + + + + [...] + + + + | 03/06/ | Anesthesia | [place] [facility] | Luz Farias | | | 2017 | Event | HOSPITAL OR INTRA OP | D, CRUISE AGENT [address] | | | | [address] | [address] [place], [place] | | | | | [place], [place] | [address] | | | | | [address] | | | | | | [phone] | | | +--------+ + + + + Anesthesia Record + + + + + | Procedure Name | Responsible | Anesthesia Start | Anesthesia Stop Time | | | Anesthesiologist | Time | | + + + + + | Correction Josué | Luz Farias, | 03/06/17 1119 | 10/26/17 1228 | | Toes 2nd , 3rd, and | CRUISE AGENT | | | | 4th Toes (Right | | | | | Foot) | | | | + + + + + +----+---+ + + | Da | T | Event | Comment | | te | i | | | | | m | | | | | e | | | +----+---+ + + | 10 | 1 | | | | /2 | 1 | | | | 6/ | 0 | | | | 20 | 9 | | | | 17 | | | | +----+---+ + + | | 1 | An Checkout | Pre-use anesthesia machine/equipment checkout. | | | 1 | | | | | 1 | | | | | 4 | | | +----+---+ + + | | 1 | An Start | ETCO2 by sample tube, readings may be inaccurate. O2 2LPM NC via | | | 1 | | supplemental source. | | | 1 | | | | | 9 | | | +----+---+ + + | | 1 | Quick Note | ETCO2 by sample tube, readings may be inaccurate. O2 2LPM NC via | | | 1 | | supplemental source. | | | 2 | | | | | 1 | | | +----+---+ + + | | 1 | Pre-Procedu | | | | 1 | ral Timeout | | | | 3 | Completed | | | | 1 | | | +----+---+ + + | | 1 | An Tourn | Right calf tourniquet with padding up 225 mm HG, applied by | | | 1 | Inflated | surgeon. | | | 3 | | | | | 5 | | | +----+---+ + + | | 1 | First | | | | 1 | Inc/Proc St | | | | 3 | | | | | 7 | | | +----+---+ + + | | 1 | An Tourn | | | | 2 | Deflated | | | | 2 | | | | | 6 | | | +----+---+ + + | | 1 | Quick Note | Patient alert and oriented x 3. Patient meets criteria for | | | 2 | | discharge from the PACU at time of discharge from operating room. | | | 2 | | [facility] | | | 7 | | | +----+---+ + + | | 1 | an stop | | | | 2 | data | | | | 2 | | | | | 8 | | | +----+---+ + + | | 1 | An Stop | Patient handed off to recovery nurse. | | | 2 | | | | | 8 | | | +----+---+ + + +------+ | Meds | +------+ + + + | Name | Total | + + + | midazolam 1 mg/mL (2 mL vial) | 2 mg | + + + | fentaNYL | 50 mcg | + + + | propofol | 157.64 mg | + + + | ceFAZolin in dextrose (ANCEF) | 2 g | | IVPB 2 g | | + + + | lactated ringers (LR) infusion | 500 mL | + + + + + [...] +--------+ + + + | Periph | 03/06/17; 1022; yes; Right; | 03/06/17 1022 by | 03/06/17 1411 by | | francesl | Proximal; Forearm; | China Rao RN | Jacklyn Dominguez | | IV | [id number] catheter system; | | VIRI Barillas | | | 20 gauge, 1 1/4 in length; 0; | | | | | distraction; 03/06/17; 1411 | | | +--------+ + + + | Read | 03/06/17; 1224; Right; foot; | 03/06/17 1224 by | 03/06/17 1411 by | | only - | 03/06/17; 1411 | Haim Kapoor, VIRI | Jacklyn Dominguez | | | | | VIRI Barillas | | Nina | | | | | on | | [...] ceFAZolin in dextrose (ANCEF) | Given | 03/06/20 | 2 g | | | | IVPB 2 g 2 g, Intravenous, | | 17 11:22 | | | | | Administer over 30 Minutes, Prior | | AM PDT | | | | | to Incision, Starting Leona | | | | | | | 03/06/17 at 1043, For 1 dose, | | | | | | | Give within one hour prior to | | | | | | | incision., Pre-op, Indications: | | | | | | | Surgical Prophylaxis | | | | | | + +--------+ +------+------+------+ +---+---+ | | | +---+---+ + +-------+ +--------+---+---+ | fentaNYL (PF) injection | Given | 03/06/20 | 50 mcg | | | | Intravenous, PRN, Pain, Starting | | 17 11:23 | | | | | Leona 03/06/17 at 1123, Anesthesia | | AM PDT | | | | | Intra-op | | | | | | + +-------+ +--------+---+---+ +---+---+ | | | +---+---+ + +---------+ +---+---+---+ | lactated ringers (LR) infusion | New Bag | 03/06/20 | | | | | at 10-100 mL/hr, Intravenous, | | 17 11:10 | | | | | CONTINUOUS, Starting [facility] 03/06/17 | | AM PDT | | | | | at 1100, TKO., Pre-op | | | | | | + +---------+ +---+---+---+ +---+---+ | | | +---+---+ + +-------+ +------+---+---+ | midazolam (VERSED) 1 mg/mL | Given | 03/06/20 | 2 mg | | | | injection Intravenous, PRN, | | 17 11:22 | | | | | Anxiety, Starting Leona 03/06/17 at | | AM PDT | | | | | 1122, Anesthesia Intra-op | | | | | | + +-------+ +------+---+---+ +---+---+ | | | +---+---+ + + + + +-------+---+ | propofol (DIPRIVAN) injection | Rate/Dos | 03/06/20 | 50 | 27.9 | | | Intravenous, CONTINUOUS PRN, | e Change | 17 11:30 | mcg/kg/m | mL/hr | | | Starting Leona 03/06/17 at 1124, | | AM PDT | in | | | | Anesthesia Intra-op | | | | | | + + + + +-------+---+ + + + + +---+ | Rate/Dose Change | 03/06/20 | 25 | 14 mL/hr | | | | 17 11:25 | mcg/kg/m | | | | | AM PDT | in | | | + + + + +---+ | New Bag | 03/06/20 | 70 | 39.1 | | | | 17 11:24 | mcg/kg/m | mL/hr | | | | AM PDT | in | | | + + + + +---+ +---+---+ | | | +---+---+ documented in this encounter"
--- OUTSIDE RECORDS SUMMARY | ~2019-09-12 | XMS | Encounter Summary ---
Demographics + + + | Address | [address] | | | [place] [address] | + + + | Home Phone [...] Author | [facility] | | | and Nenoana | + + + | Organization | [facility] | | | and [...] + | Matthew Ramirez | ECON | [address] | | | | | [place] | | | | | [address] | | + + + + + Care Team Providers + +------+ + | Care Outcomes Manager Name | Role | Phone | [...] + + | 01/15/ | Telephone | [facility] | Arpan, | Patient Concerns | | 2019 | | MED [facility] | Luis Richards MD [address] | | | | | [address] | [facility] | | | | | [address] | [place] [address] | | | | | [place] [address] | [phone] | | | | | [phone] | | | +--------+ + + + [...]
--- OUTSIDE RECORDS SUMMARY | ~2019-09-12 | XMS | Encounter Summary ---
Demographics + + + | Address | [address] | | | [place] [address] | + + + | Home Phone | | + + + | Preferred Language | Unknown | + + + | Marital Status | | + + + | Sabianism Affiliation | NRP | + + + | Race | White | + + + | Ethnic Group | Not or | + + + Author + + + | Author | [facility] | + + + | Organization | [facility] | + + + | Address | Unknown | + + + | Phone | Unavailable | + + + Support + + + + + | Name | Relationship | Address | Phone | + + + + + | Matthew Ramirez | CHRIS | [address] | | | | | [place] | | | | | [address] | | + + + + + | Nella Haque | ECON | Unknown | | + + + + + Care Team Providers + +------+ + | Care Single Stroke Preformer Name | Role | Phone | + +------+ + | Long Copeland MD | PCP | | + +------+ + Encounter Details +--------+ + + + + | Date | Type | Department | Care Team | Description | +--------+ + + + + | 01/28/ | Procedure | Radiology/Imaging | | | | 2019 | Pass | Lab at [facility] [address] | | | | | | [address] [place] Mailcode: | | | | | | [facility] | | | | | | Health and Healing, | | | | | | [place] [address] [facility] | | | | | | [place], [place] | | | | | | [address] | | | | | | [phone] | | | +--------+ + + + [...]
--- OUTSIDE RECORDS SUMMARY | ~2019-09-12 | XMS | Encounter Summary ---
Demographics + + + | Address | [address] | | | [place] [address] | + + + | Home Phone | | + + + | Preferred Language | Unknown | + + + | Marital Status | | + + + | Islam Affiliation | NRP | + + + [...] + | Matthew Ramirez | CHRIS | [address] | | | | | [place] | | | | | [address] | | + + + + + | Nella Haque | ECON | Unknown | | + + + + + Care Team Providers + +------+ + | Care Lens Coater Name | Role | Phone | + [...] at S | [address] [facility] | | | | | [facility] | [place], [place] | | | | | Health and | [address] | | | | | Healing [address] | [phone] | | | | | [address] [place], [place] | | | | | | [address] | | | | | | [phone] | | | +--------+--------+ + + + [...]
--- OUTSIDE RECORDS SUMMARY | ~2019-09-12 | XMS | Encounter Summary ---
Demographics + + + | Address | [address] | | | [place] [address] | + + + | Home Phone [...] + | Matthew Ramirez | CHRIS | [address] | | | | | [place] | | | | | [address] | | + + + + + | Nella Haque | ECON | Unknown | | + + + + + Care Team Providers + +------+ + | Care Dish Up Person Name | Role | Phone | + [...] | | | | | Procedures | [address] | | | | | | PET CT SKULL | Phone: | | | | | | B[place] | [phone] | | | | | | [place] | Fax: | | | | | | | [phone] | | +--------+--------+ + + + + [...] | | | | [address] | [address] | | | | | | [place], | Phone: | | | | | | [place] [address] | [phone] | | | | | | Phone: | Fax: | | | | | | [phone] | [phone] | | | | | | Fax: | | | | | | | [phone] | | +--------+--------+ + + + + [...] | | | Ave Mail Code: | [place], [place] | (Primary Dx); Tumor | | | | [place] for [facility] | [address] | | | | | and Healing, | [phone] | | | | | Building [address] | | | | | | [place], [place] | | | | | | [address] | | | | | | [phone] | | | +--------+---------+ + + + [...] obtain PET scan at local facility in [place]. Please contact Nelli Vaca, Nurse Coordinator for Dr. Cristel Galicia, with any questions at . We encourage all of our patients to sign up and use Tealet for communication . Please note: I am out of the office on Mondays and unable to monitor voicemail or email. If you need to get ahold of someone urgently, please call [phone]. documented in this encounter Progress Notes Cristel Galicia MD - 02/03/2019 9:00 AM PDTATTENDING PHYSICIAN STATEMENT AND SUMMARY This note has been dictated using Play for Job voice recognition software. I saw Ashly Ramirez [...] will byrnes ve her set up in [facility], I will discuss her case when these results are avai lable in our multidisciplinary GI tumor board, and then contact the patient and a local [facility] oncologist with any treatment recommendations. RECOMMENDATIONS 1. PET CT scan to be ordered and performed in [facility]. 2. We will discuss her [...] o their satisfaction. Cristel Galicia MD, MPH paraplanner Division of Surgical Oncology [facility] [place], [place] Desmond Frank MD - 9:00 AM PDT 02/03/2019 Surgical Oncology Clinic New Patient Consultation--Gastric Cancer Referring Physician: Dr. Luis Antony Reason for consultation: Newly diagnosed gastric adenocarcinoma (This note is structured to facilitate communication among oncology providers) PLAN TODAY: 1. Return to clinic after discussion at tumor board. 2. Return to [facility] for EGD with biopsies for disease surveillance 3. Will need a PET/CT scan 4. Will present case and discuss in upcoming Multi-Disciplinary Tumor board and contact pat ient with recommendations. 5. Solid tumor Gene Trails 6. Follow up [facility] path review of outside records ONCOLOGIC [...] gastric adeno carcinoma. She subsequently went to [place] and underwent and EUS with Dr. Stevenson [...] and hematochezia. 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 Currently, she is functionally good allowing [...] case will be discussed at the [facility] Multidisciplinary Gastrointestinal Cancer Conference which includes [...] evelia tment. Desmond Voss MD R1 [facility] General Surgery documented in this enc [...] | [facility] | | | TESTED | [id number] E1 labeled as | | DIAGNOSTIC | [...] | | | | | | is artists' booking representative of | | | | | | this tumor, we would | | | | | | welcome the opportunity | | | | | | to examine it. | | | | + + + + + + | DISCLAIMER | This test was developed | | [facility] | | | | and its performance | | DIAGNOSTIC | | | | characteristics | | | | | | determined by the [facility] | | LABORATORIE | | | | [facility] Diagnostic | | S | | | [...] | | | | | (CLIA). [facility] | | | | | | Diagnostics | | | | | | Laboratories are fully | | | | | | licensed by the state of | | | | | | [place] under CLIA and | | | | | | are accredited by the | | | | | | [employer] [place] | | | | | | Pathologists (CAP). | | | | | | University Relations Director: | | | | | | Rancho [...] + + + | [facility] | [address] | [place] [address] | | | DIAGNOSTIC | [address] [...]
--- OUTSIDE RECORDS SUMMARY | ~2019-09-12 | XMS | Encounter Summary ---
Demographics + + + | Address | [address] | | | [place] [address] | + + + | Home Phone [...] + | Author | [facility] | | | and [place] | + + + | Organization | [facility] | | | and [...] + | Matthew Ramirez | ECON | [address] | | | | | [place] | | | | | [address] | | + + + + + Care Team Providers + +------+ + | Care Religious Activities Director Name | Role | Phone | + +------+ + | Ashly Rojo PA-C | PCP | | + +------+ + Encounter Details +--------+ + + + + | Date | Type | Department | Care Team | Description | +--------+ + + + + | 01/05/ | Abstract | [facility] | Provider, | | | 2019 | | SURGERY [address] | MD [address] | | | | | [address] [place], [place] | [place] | | | | | [address] | [place] [address] | | | | | [phone] | | | +--------+ + + + [...]
--- OUTSIDE RECORDS SUMMARY | ~2019-09-12 | XMS | Encounter Summary ---
Demographics + + + | Address | [address] | | | [place] [address] | + + + | Home Phone | | + + + | Preferred Language | Unknown | + + + | Marital Status | | + + + | Latter-Day Affiliation | Unknown | + + + | Race | Unknown | + + + | Ethnic Group | Unknown | + + + Author + + + | Author | [facility] | | | and [place]eno[place] | + + + | Organization | [facility] | | [...] + | Matthew Ramirez | ECON | [address] | | | | | [place] | | | | | [address] | | + + + + + Care Team Providers + +------+ + | Care Product Consultant Name | Role | Phone | [...] | | | | [K31.9] | | [address] Phone: | | | | | Procedures | | [phone] | | | | | [place] | | Fax: | | | | | ESOPHAGOGAST | | [phone] | | | | | RODUODENOSCO | | | | | | | PY TRANSORAL | | | | | | | DIAGNOSTIC | | | | | | | [place] EDG US | | | | | [...] + + | 01/13/ | Hospital | [facility] | Sukumar Stevenson MD | 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 | Encounter | [facility] | [address] [place] | of overlapping sites | | | | INTRA OP [address] | [address] [place] | of stomach (HCC) | | | | [address] | [address] | | | | | [address] | | | | | | [phone] | | | +--------+ + + + [...] | | | LABORATORY | | Acct: [id number] Location: | [facility] | | [facility]; [facility] MEDICAL PROCEDURE UNIT POOL; [facility] | | | MEDICAL PROCEDURE UNIT POOL | | | Case #: [id number] Ordering: | | | SUKUMAR STEVENSON MD Client: [facility] Sacred | | | [facility] Copy To: | | | Printed: 01/20/2019 09:40 PDT | | | SURGICAL PATHOLOGY FINAL REPORTCollected: | | | Received: | | | Responsible Pathologist:01/13/2019 12:45 PDT | | | 01/13/2019 13:25 PDT [facility] | | | DIAGNOSIS:A. Gastric antrum at [...] fragments. | | | Mild inactive chronic gastritis.[facility]/SK 01/14/19 01:36 pmVerified | | | by: ANNABELLE FULLER MDVerify Date: 01/20/2019 09:40 [facility] | | | [facility] [address] | | | SURGICAL PATHOLOGY FINAL REPORTCollected: [...] appropriately.As a part of our quality assurance group leader | | | policy, this case has [...] developed and their performance characteristics determined by [facility]. This test is used for clinical | | | purposes. It should not be regarded as investigational or for | | | research. [facility] is certified under the Clinical | | | Laboratory Improvement Amendments of 1988 (CLIA) as qualified to | | | perform high complexity clinical laboratory testing. | | + + + + + + + + | Performing | Address | City/State/Zipcode | Phone Number | | Organization | | | | + + + + + | [facility] | [address] | [place] [address] | | | [facility] | | | | | LABORATORY EZE | | | | + + + + + EUS Upper (01/13/2019 11:39 AM PDT) + + | Specimen | + + | | + + + + + | Narrative | Performed At | + + + | [place] | [place] | | [facility] | PROVATION | | CenterGI | | | Patient Name: Ashly Ramirez Procedure | | | Date: 01/13/2019 11:39 AMMRN: [id number] | | | of : 1940 | [...] | | | | | | | SUUKMAR STEVENSON MD01/13/2019 1:07:25 PMThis report has | | | been signed electronically. Note Initiated On: 01/13/2019 11:39 AMNumber | | | of Addenda: 0 [facility] - | | | Endoscopy Services | | | | | |SKUUMAR STEVENSON MD | | |01/13/2019 1:07:25 PM | | |This report has been signed electronically. | | | | | |Note Initiated On: 01/13/2019 11:39 AM | | |Number of Addenda: 0 | | | | | | [facility] | | + + [...] | TRACEMASTER | | Duration:172 msP Horizontal [place]:28 degP Front [place]:60 degQ Onset:512 | | | msQRSD Interval:136 msQT Interval:448 msQTcB:477 msQTcF:467 msQRS | | | Horizontal [place]:150 degQRS Hampton:-35 degI-40 Horizontal [place]:34 degI-40 | | | Front [place]:74 degT-40 Horizontal [place]:151 degT-40 Front [place]:-77 degT | | | Horizontal [place]:8 degT Wave [place]:51 degS-T Horizontal [place]:21 degS-T | | | Front [place]:83 degSeverity:- ABNORMAL ECG -INTERP:SINUS | | | RHYTHMINTERP:VENTRICULAR PREMATURE COMPLEXINTERP:RBBB AND | | | LAFBINTERP:LEFT VENTRICULAR HYPERTROPHYElectronically signed by: | | | ANDREAS MAXWELL 01-18-2019 07:24:33 | | |QTcF:467 ms | | |QRS Horizontal Hampton:150 deg | | |QRS Hampton:-35 deg | | |I-40 Horizontal [place]:34 deg | | |I-40 Front [place]:74 deg | | |T-40 Horizontal [place]:151 deg | | |T-40 Front [place]:-77 deg | | |T Horizontal [place]:8 deg | | |T Wave [place]:51 deg | | |S-T Horizontal [place]:21 deg | | |S-T Front [place]:83 deg | | |Severity:- ABNORMAL ECG - [...] + + + + + | [facility] | [address] | [place] [address] | [phone] | + + + + + POC Glucose (01/13/2019 10:06 AM PDT) + + + + + + | Component | Value | Ref Range | Performed | Pathologist | | | | | At | Signature | + + + + + + | Glucose, | 111 (H)Comment: | 65 - 99 mg/dL | [facility] | | | POC | Performed by [facility] [address] | | [address]CR[address] | | | | [address] [place] | | HEART | | | | [address] | | MEDICAL | | | | [...] + | [facility] | [address] | [place] [address] | | | [facility] | | | | | LABORATORY [...] scheduled: AC, NPO, Daytime | | | [id number] Use NIGHT DOSE for | | | doses scheduled: HS, 3AM, | | | Nighttime [id number] If the BG is | | | [...]
--- OUTSIDE RECORDS SUMMARY | ~2019-09-12 | XMS | Encounter Summary ---
Demographics + + + | Address | [address] | | | [place] [address] | + + + | Home Phone | | + + + | Preferred Language | Unknown | + + + | Marital Status | | + + + | Yazidi Affiliation | Unknown | + + + | Race | Unknown | + + + | Ethnic Group | Unknown | + + + Author + + + | Author | [facility] | | | and [place] | + + + | Organization | [facility] | | | and [...] + | Matthew Ramirez | ECON | [address] | | | | | [place] | | | | | [address] | | + + + + + Care Team Providers + +------+ + | Care Wastewater Treatment Plant Supervisor Name | Role | Phone | [...] | | | [address] | [place] [address] | | | | | [place] [address] | | | | | | [phone] | | | +--------+ + + + [...]
--- OUTSIDE RECORDS SUMMARY | ~2019-09-12 | XMS | Encounter Summary ---
Demographics + + + | Address | [address] | | | [place] [address] | + + + | Home Phone [...] + | Author | [facility] | | | and [place] | + + + | Organization | [facility] | | | and [place]eno[place] [...] + | Matthew Ramirez | ECON | [address] | | | | | [place] | | | | | [address] | | + + + + + Care Team Providers + +------+ + | Care Engineering Mechanic Name | Role | Phone | [...] [place] | | | | | [address] | [place] [address] | | | | | [place] [address] | [phone] | | | | | [phone] | | | +--------+ + + + [...]
--- OUTSIDE RECORDS SUMMARY | ~2019-09-12 | XMS | Encounter Summary ---
Demographics + + + | Address | [address] | | | [place] [address] | + + + | Home Phone | | + + + | Preferred Language | Unknown | + + + | Marital Status | | + + + | Bahai Affiliation | Unknown | + + + | Race | Unknown | + + + | Ethnic Group | Unknown | + + + Author + + + | Author | [facility] | | | and [place]eno[place] | + + + | Organization | [facility] | | | and [place]eno[place] [...] + | Matthew Ramirez | ECON | [address] | | | | | [place] | | | | | [address] | | + + + + + Care Team Providers + +------+ + | Care Network Systems Engineer Name | Role | Phone | [...] | | | | | | | [facility] | | | | | | [...] Event | HOSPITAL OR INTRA OP | [address] | | | | | [address] | [place] [address] | | | | | [place], [place] | [phone] | | | | | [address] | | | | | | [phone] | | | +--------+ + + + + Anesthesia Record + + + + + | Procedure Name | Responsible | Anesthesia Start | Anesthesia Stop Time | | | Anesthesiologist | Time | | + + + + + | CORRECTION | Mayank Honeycutt, | 07/04/17 0912 | 07/04/17 1022 | | MARSHA 2, 3, 4 | ROLLER HAND | | | | (Left Foot) | [...]
--- OUTSIDE RECORDS SUMMARY | ~2019-09-12 | XMS | Encounter Summary ---
Demographics + + + | Address | [address] | | | [place] [address] | + + + | Home Phone | | + + + | Preferred Language | Unknown | + + + | Marital Status | | + + + | Sikhism Affiliation | Unknown | + + + | Race | Unknown | + + + | Ethnic Group | Unknown | + + + Author + + + | Author | [facility] | | | and [place] | + + + | Organization | [facility] | [...] + | Matthew Ramirez | ECON | [address] | | | | | [place] | | | | | [address] | | + + + + + Care Team Providers + +------+ + | Care Desk Attendant Name | Role | Phone | [...] | 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 | [address] | | | | | adenocarcino | [address] | [place], | | | | | ma (HCC) | [address]VD | [place] [address] | | | | | Procedures | [place], [place] | Phone: | | | | | CT Chest | [address] | [phone] | | | | | Abdomen | Phone: | Fax: | | | | | Pelvis w | [phone] | [phone] | | | | | Contrast | Fax: | | | | | | CHG CT | [phone] | | | | | | SCAN,ABDOMEN | | | | | | | AND | | | | | | | PELVIS,W | | | | | | | CONTRAST SC | | | | | | | [...] | 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 | [address] | | | | | adenocarcino | [address] | [place], | | | | | ma (HCC) | [address] | [place] [address] | | | | | Procedures | [place], [place] | Phone: | | | | | CT Chest | [address] | [phone] | | | | | Abdomen | Phone: | Fax: | | | | | Pelvis w | [phone] | [phone] | | | | | Contrast | Fax: | | | | | | CHG CT | [phone] | | | | | | SCAN,ABDOMEN | | | | | | | AND | | | | | | | PELVIS,W | | | | | | | CONTRAST SC | | | | | | | CAT SCAN OF | | | | | | | CHEST | | | | | | | CONTRAST | | | +--------+--------+ + + + + Encounter Details +--------+ + + + + | Date | Type | Department | Care Team | Description | +--------+ + + + + | 12/31/ | Hospital | [facility] | Matthew Shukla MD | 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
--- OUTSIDE RECORDS SUMMARY | ~2019-09-12 | XMS | Encounter Summary ---
Demographics + + + | Address | [address] | | | [place] [address] | + + + | Home Phone | | + + + | Preferred Language | Unknown | + + + | Marital Status | | + + + | Baptism Affiliation | Unknown | + + + | Race | Unknown | + + + | Ethnic Group | Unknown | + + + Author + + + | Author | [facility] | | | and [place] | + + + | Organization | [facility] | | | and [place] [...] + | Matthew Ramirez | ECON | [address] | | | | | [place] | | | | | [address] | | + + + + + Care Team Providers + +------+ + | Care Roll Setter Name | Role | Phone | + [...] | | | | | | | IN REPAIR | | | | | | [...] + + + + | 07/04/ | Hospital | [place] | oJse Randall | | | 2018 | Encounter | HOSPITAL OR INTRA OP | [address] | | | | | [address] [place] | [facility] [place], | | | | | [place], [place] | [place] [address] | | | | | [address] | [phone] | | | | | [phone] | | | +--------+ + + + [...] + + + +---------+ + + | Shaka Ricketts 160 | Take 160 mg by mouth [...] filedocumented in this encounter Administered Medications + +---------+ +--------+-------+------+ | Medication Order | MAR | Action | Dose | Rate | Site | | | Action | Date | | | | + +---------+ +--------+-------+------+ | lactated ringers (LR) infusion | New Bag | 07/04/19 | 1,000 | 100 | | | at 10-100 mL/hr, Intravenous, | | 18 8:56 | mLs | mL/hr | | | CONTINUOUS, Starting 07/04/17 | | AM PST | | | | | at 0915, TKO, Pre-op | | | | | | + +---------+ +--------+-------+------+ +---+---+ | | | +---+---+ documented in this encounter"
--- OUTSIDE RECORDS SUMMARY | ~2019-09-12 | XMS | Encounter Summary ---
Demographics + + + | Address | [address] | | | [place] [address] | + + + | Home Phone | | + + + | Preferred Language | Unknown | + + + | Marital Status | | + + + | Anabaptist Affiliation | NRP | + + + [...] + | Matthew Ramirez | CHRIS | [address] | | | | | [place] | | | | | [address] | | + + + + + | Nella Haque | ECON | Unknown | | + + + + + Care Team Providers + +------+ + | Care Greenskeeper Name | Role | Phone | + +------+ + | Long Copeland MD | PCP | | + +------+ + Reason for Visit + + + | Reason | Comments | + + + | Scheduling | | + + + Encounter Details +--------+ + + + + | Date | Type | Department | Care Team | Description | +--------+ + + + + | 07/25/ | Telephone | [facility] | Rodriguez Bower MD | Scheduling | | 2020 | | Clinics at S | [address] | | | | | [facility] | [place], [place] | | | | | for Health and | [address] | | | | | Healing [address] | [phone] | | | | | Ave [place], [place] | | | | | | [address] | | | | | | [phone] | | | +--------+ + + + [...]
--- OUTSIDE RECORDS SUMMARY | ~2019-09-12 | XMS | Encounter Summary ---
Demographics + + + | Address | [address] | | | [place] [address] | + + + | Home Phone | | + + + | Preferred Language | Unknown | + + + | Marital Status | | + + + | Moravian Affiliation | Unknown | + + + | Race | Unknown | + + + | Ethnic Group | Unknown | + + + Author + + + | Author | [facility] | | | and [place] | + + + | Organization | [facility] | | [...] + | Matthew Ramirez | CHRIS | [address] | | | | | [place] | | | | | [address] | | + + + + + Care Team Providers + +------+ + | Care Rehab Manager Name | Role | Phone | + +------+ + PCP | Unavailable | + +------+ + Encounter Details +--------+ + + + + | Date | Type | Department | Care Team | Description | +--------+ + + + + | 06/27/ | Hospital | [facility] | | | | 2003 | Encounter | MED CTR XRAY [address] | | | | | | [address] | | | | | | [place] [address] | | | | | | [phone] | | | +--------+ + + + [...]
--- OUTSIDE RECORDS SUMMARY | ~2019-09-12 | XMS | Encounter Summary ---
Demographics + + + | Address | [address] | | | [place] [address] | + + + | Home Phone [...] Author | [facility] | | | and [place]eno[place] | + + + | Organization | [facility] | [...] + | Matthew Ramirez | CHRIS | [address] | | | | | [place] | | | | | [address] | | + + + + + Care Team Providers + +------+ + | Care Sales Representative Wire Rope Name | Role | Phone | + +------+ + PCP | Unavailable | + +------+ + Encounter Details +--------+ + + + + | Date | Type | Department | Care Team | Description | +--------+ + + + + | 03/28/ | Hospital | [facility] | | | | 1996 | Encounter | MED CTR LABORATORY | | | | | | [address] | | | | | | [place] | | | | | | [address] | | | | | | [phone] | | | +--------+ + + + [...]
--- OUTSIDE RECORDS SUMMARY | ~2019-09-12 | XMS | Encounter Summary ---
Demographics + + + | Address | [address] | | | [place] [address] | + + + | Home Phone | | + + + | Preferred Language | Unknown | + + + | Marital Status | | + + + | Jew Affiliation | Unknown | + + + | Race | Unknown | + + + | Ethnic Group | Unknown | + + + Author + + + | Author | [facility] | | | and [place] | + + + | Organization | [facility] | [...] + | Matthew Ramirez | CHRIS | [address] | | | | | [place] | | | | | [address] | | + + + + + Care Team Providers + +------+ + | Care Real Estate Analyst Name | Role | Phone | + +------+ + PCP | Unavailable | + +------+ + Encounter Details +--------+ + + + + | Date | Type | Department | Care Team | Description | +--------+ + + + + | 12/30/ | Hospital | [facility] | | | | 2001 | Encounter | MED CTR XRAY [address] | | | | | | [address] | | | | | | [place] [address] | | | | | | [phone] | | | +--------+ + + + [...]
--- OUTSIDE RECORDS SUMMARY | ~2019-09-12 | XMS | Encounter Summary ---
Demographics + + + | Address | [address] | | | [place] [address] | + + + | Home Phone | | + + + | Preferred Language | Unknown | + + + | Marital Status | | + + + | Denominational Affiliation | NRP | + + + | Race | White | + + + | Ethnic Group | Not or | + + + Author + + + | Author | [facility] | + + + | Organization | [facility] | + + + | Address | Unknown | + + + | Phone | Unavailable | + + + Support + + + + + | Name | Relationship | Address | Phone | + + + + + | Matthew Ramirez | CHRIS | [address] | | | | | [place] | | | | | [address] | | + + + + + | Nella Haque | ECON | Unknown | | + + + + + Care Team Providers + +------+ + | Care Embroiderer Name | Role | Phone | + [...] | | | Ave Mail Code: | [place], [place] | | | | | [facility] | [address] | | | | | and [place], | [phone] | | | | | [address] | | | | | | [place], [place] | | | | | | [address] | | | | | | [phone] | | | +--------+ + + + [...]
--- OUTSIDE RECORDS SUMMARY | ~2019-09-12 | XMS | Encounter Summary ---
Demographics + + + | Address | [address] | | | [place] [address] | + + + | Home Phone [...] + | Matthew Ramirez | CHRIS | [address] | | | | | [place] | | | | | [address] | | + + + + + | Nella Haque | ECON | Unknown | | + + + + + Care Team Providers + +------+ + | Care Front Line Leader Name | Role | Phone | + [...] Ron Villalobos | | | | | [facility] | [place], [place] | | | | | for Health and | [address] | | | | | Healing [address] | [phone] | | | | | Ave [place], [place] | | | | | | [address] | | | | | | [phone] | | | +--------+ + + + [...]
--- OUTSIDE RECORDS SUMMARY | ~2019-09-12 | XMS | Encounter Summary ---
Demographics + + + | Address | [address] | | | [place] [address] | + + + | Home Phone | | + + + | Preferred Language | Unknown | + + + | Marital Status | | + + + | Episcopal Affiliation | Unknown | + + + | Race | Unknown | + + + | Ethnic Group | Unknown | + + + Author + + + | Author | [facility] | | | and [place] | + + + | Organization | [facility] | | | and [place] [...] + | Matthew Ramirez | CHRIS | [address] | | | | | [place] | | | | | [address] | | + + + + + Care Team Providers + +------+ + | Care Bale Breaker Operator Name | Role | Phone | + +------+ + PCP | Unavailable | + +------+ + Encounter Details +--------+ + + + + | Date | Type | Department | Care Team | Description | +--------+ + + + + | 11/24/ | Hospital | [facility] | [place], | | | 2009 | Encounter | MED CTR GENERIC OP | Katerin Xavier MD | | | | | CONV DEPT [address] | | | | | | [place], | | | | | | [place] [address] | | | | | | [phone] | | | +--------+ + + + [...]
--- OUTSIDE RECORDS SUMMARY | ~2019-09-12 | XMS | Encounter Summary ---
Demographics + + + | Address | [address] | | | [place] [address] | + + + | Home Phone [...] + | Author | [facility] | | | and [place]enoana | + + + | Organization | [facility] | | | and [...] + | Matthew Ramirez | ECON | [address] | | | | | [place] | | | | | [address] | | + + + + + Care Team Providers + +------+ + | Care Business Planning Manager Name | Role | Phone | [...] | | | | | | | [place] REPAIR | | | | | | [...] 07/04/ | Hospital | [facility] | Jose Randall | | | 2018 | Encounter | HOSPITAL OR INTRA OP | JACKIE Sanon [address] | | | | | [address] [place] | [facility] [place], | | | | | [place], [place] | [place] [address] | | | | | [address] | [phone] | | | | | [phone] | | | +--------+ + + + [...]
--- OUTSIDE RECORDS SUMMARY | ~2019-09-12 | XMS | Encounter Summary ---
Demographics + + + | Address | [address] | | | [place] [address] | + + + | Home Phone | | + + + | Preferred Language | Unknown | + + + | Marital Status | | + + + | Faith Affiliation | NRP | + + + | Race | White | + + + | Ethnic Group | Not or | + + + Author + + + | Author | [facility] | + + + | Organization | [facility] | + + + | Address | Unknown | + + + | Phone | Unavailable | + + + Support + + + + + | Name | Relationship | Address | Phone | + + + + + | Matthew Ramirez | CHRIS | [address] | | | | | [place] | | | | | [address] | | + + + + + | Nella Garland | ECON | Unknown | | + + + + + Care Team Providers + +------+ + | Care Stevedoring Supervisor Name | Role | Phone | [...] | | | | | ONCOLOGY | [address] | Ave | | | | | PRACTICE | Phone: | [place], [place] | | | | | | [phone] | [address] | | | | | | Fax: | Phone: | | | | | | [phone] | [phone] | | | | | | | Fax: | | | | | | | [phone] | + +---------+ + + + + Encounter Details +--------+ + + + + | Date | Type | Department | Care Team | Description | +--------+ + + + + | 03/04/ | [employer] | Surgical Oncology | Cristel Galicia MD | Tumor (Primary Dx) | | 2019 | | at [facility] [address] | [address] | | | | | Ave Mail Code: | [place], [place] | | | | | [facility] | [address] | | | | | and Healing, | [phone] | | | | | [address] | | | | | | [place], [place] | | | | | | [address] | | | | | | [phone] | | | +--------+ + + + [...]
--- OUTSIDE RECORDS SUMMARY | ~2019-09-12 | XMS | Encounter Summary ---
Demographics + + + | Address | [address] | | | [place] [address] | + + + | Home Phone [...] + | Matthew Ramirez | CHRIS | [address] | | | | | [place] | | | | | [address] | | + + + + + | Nella Haque | ECON | Unknown | | + + + + + Care Team Providers + +------+ + | Care Relay Checker Name | Role | Phone | [...] (TRAMADOL 50 mg) | | | | [facility] | [place], [place] | | | | | for Health and | [address] | | | | | Healing [address] | [phone] | | | | | [place], [place] | | | | | | [address] | | | | | | [phone] | | | +--------+--------+ + + + [...]
--- OUTSIDE RECORDS SUMMARY | ~2019-09-12 | XMS | Encounter Summary ---
Demographics + + + | Address | [address] | | | [place] [address] | + + + | Home Phone [...] + | Matthew Ramirez | CHRIS | [address] | | | | | [place] | | | | | [address] | | + + + + + | Nella Lowery ECON | Unknown | | + + + + + Care Team Providers + +------+ + | Care Financial Recruiter Name | Role | Phone | + [...] [place] | | | | | at [facility] | [facility] | | | | | [address] | [address] | | | | | [address] [facility] | | | | | | [place], 2nd floor | | | | | | [place], [place] | | | | | | [address] | | | | | | [phone] | | | +--------+ + + + [...] nostril | | | | | | [place] | once daily. | | | | [...] view image for the detailed interpretation from [employer] results. | CARDIOLOGY | + + + + + + + + | Performing | Address | City/State/Zipcode | Phone Number | | Organization | | | | + + + + + | [facility] | [address] | [place], [place] | | | CARDIOLOGY | [address] | [address] | | + + + + + documented in this encounter Visit Diagnoses Not on filedocumented in this encounter
--- OUTSIDE RECORDS SUMMARY | ~2019-09-12 | XMS | Encounter Summary ---
Demographics + + + | Address | [address] | | | [place] [address] | + + + | Home Phone | | + + + | Preferred Language | Unknown | + + + | Marital Status | | + + + | Jainism Affiliation | NRP | + + + | Race | White | + + + | Ethnic Group | Not or | + + + Author + + + | Author | [facility] | + + + | Organization | [facility] | + + + | Address | Unknown | + + + | Phone | Unavailable | + + + Support + + + + + | Name | Relationship | Address | Phone | + + + + + | Matthew Ramirez | CHRIS | [address] | | | | | [place] | | | | | [address] | | + + + + + | Nella Haque | ECON | Unknown | | + + + + + Care Team Providers + +------+ + | Care Director Career Services Name | Role | Phone | [...] | | sphincter | MD Gillian | [address] | | | | | deficiency | [address] | [place] | | | | | (ISD) | [address] | [address] | | | | | Urinary | Rd | floor | | | | | stress | [place], [place] | [place], [place] | | | | | incontinence | [address] | [address] | | | | | Procedures | Phone: | Phone: | | | | | REQUEST TO | [phone] | [phone] | | | | | SURGERY | Fax: | Fax: | | | | | PROJECT ENGINEER | [phone] | [phone] | | | | | [place] | | | | | | | [place] | | | | | | | [place] | | | | | | [...] evaluation | | 2010 | Visit | [facility] | MD Gillian [address] | (Primary Dx); | | | | [address] | [address] | Urinary incontinence | | | | [address] | [place], [place] | | | | | [place], [facility] floor | [address] | | | | | [place], [place] | [phone] | | | | | [address] | | | | | | [phone] | | | +--------+---------+ + + + [...] - 10/25/2010 10:59 AM PDTDirections to [facility] Clinic in [facility] Exit the Lobby of the [facility] and turn right to take elevator 2 to the 9th floor of the [facility]. Follow signs directing you to the [place] [facility]. The PM[facility] is located on the 4th floor of the [facility] and [facility] ([facility]) just next to the exit for the tram. To return to the [facility] or to any of the facilities located on [facility], you will need a tram pass. These are available at no charge to patients with scheduled appointme nts and to those people accompanying them. For a tram pass, ask the manufacturer's service representative in the lob by of the [facility] or the person who checks you in for your [facility] appointment. Electronically minnie d by Jackie [...] her note. Jackie Velázquez M D - 10/25/2010 9:00 AM PDT [...] 1 g into the vagina twice wee kl (on Friday and ). 42.5 g 2 folic acid 800 mcg Oral Tablet Take 800 mcg by mouth once daily. gabapentin 300 mg Oral Capsule Take 300 mg by mouth three times daily. Kbzrjuronry-Tamhxxzmm-Cjq C-Mn (GLUCOSAMINE CHONDROITIN MAXSTR) 500-400 mg Oral [...] the evening. triamcinolone 55 mcg Nasal Aerosol, Bradley Instill 2 Sprays into each nostril once [...] Ramirez Number of Children: 3 Occupational History [facility] Social History Main Topics Smoking status: Never Smoker Smokeless tobacco: Never Used Alcohol Use: Yes 0-3/day- wine Drug Use: No Sexually Active: No partner not able Social History Narrative Lives with partner in [facility]- 34yrs. Son in [place]. 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 Now traveling [facility]. Review of Systems: Per HPI. All other systems negative PHYSICAL EXAM: BP 140/90 | Pulse 86 | Ht 1.746 m (5' 8.74") | Wt 104.373 kg (230 lb 1.6 oz) | SpO2 99% | B WA 34.24 kg/(m^2) GENERAL: Healthy Appearing, No acute [...] view image for the detailed interpretation from [employer] results. | CARDIOLOGY | + + + + + + + + | Performing | Address | City/State/Zipcode | Phone Number | | Organization | | | | + + + + + | [facility] | [address] | [place], [place] | | | CARDIOLOGY | [address] | [address] | | + + + + + [...] DEPARTMENT OF | [address] | [place] [address] | | | PATHOLOGY | [address] [...] + + + + + | [facility] | [address] | [place] [address] | | | PATHOLOGY | [address] | | | + + + + + documented in this encounter Visit Diagnoses + + | Diagnosis | + + | Pre-op evaluation - Primary Preoperative examination, unspecified | + + | Urinary incontinence Unspecified urinary incontinence | + + documented in this encounter
--- OUTSIDE RECORDS SUMMARY | ~2019-09-12 | XMS | Encounter Summary ---
Demographics + + + | Address | [address] | | | [place] [address] | + + + | Home Phone [...] + + + | Author | [facility] | + + + | Organization | [facility] | + + + | Address | Unknown | + + + | Phone | Unavailable | + + + Support + + + + + | Name | Relationship | Address | Phone | + + + + + | Matthew Ramirez | CHRIS | [address] | | | | | [place] | | | | | [address] | | + + + + + | Nella Lowery ECON | Unknown | | + + + + + Care Team Providers + +------+ + | Care Forklift Technician Name | Role | Phone | [...] | | | Ave Mail Code: | [place], [place] | | | | | [facility] | [address] | | | | | and Healing, | [phone] | | | | | Building [address] | | | | | | [place], [place] | | | | | | [address] | | | | | | [phone] | | | +--------+ + + + [...]
--- OUTSIDE RECORDS SUMMARY | ~2019-09-12 | XMS | Encounter Summary ---
Demographics + + + | Address | [address] | | | [place] [address] | + + + | Home Phone [...] + | Matthew Ramirez | CHRIS | [address] | | | | | [place] | | | | | [address] | | + + + + + | Nella Lowery ECON | Unknown | | + + + + + Care Team Providers + +------+ + | Care Inspector Advanced Composite Name | Role | Phone | + [...] 2019 | Requisition | [address] [place] | [address] | | | | | Rd [place], [place] | [place], [place] | | | | | [address] | [address] | | | | | | [phone] | | | | | | | [...] + + + + | [facility] | [address] [facility] [address] | [place] [address] | | | DIAGNOSTIC | [address] | | | | LABORATORIES | | | | + + + + + documented in this encounter Visit Diagnoses + + | Diagnosis | + + | Encounter for other screening for genetic and chromosomal anomalies | + + documented in this encounter"
--- OUTSIDE RECORDS SUMMARY | ~2019-09-12 | XMS | Encounter Summary ---
Demographics + + + | Address | [address] | | | [place] [address] | + + + | Home Phone | | + + + | Preferred Language | Unknown | + + + | Marital Status | | + + + | Mormon Affiliation | Unknown | + + + | Race | Unknown | + + + | Ethnic Group | Unknown | + + + Author + + + | Author | [facility] | | | and [place]eno[place] | + + + | Organization | [facility] [...] + | Matthew Ramirez | ECON | [address] | | | | | [place] | | | | | [address] | | + + + + + Care Team Providers + +------+ + | Care Supply Chain Logistics Manager Name | Role | Phone | [...] | Gastric | [address] | [place] | | | | | adenocarcino | [email or web address], | [place], [place] | | | | | ma (HCC) | [place] | [address] | | | | | Procedures | [address] | Phone: | | | | | PET CT Skull | Phone: | [phone] | | | | | Base To Mid | [phone] | Fax: | | | | | Thigh | Fax: | [phone] | | | | | | [phone] | | +--------+--------+ + + + + [...] | Gastric | [address] | [place] | | | | | adenocarcino | [place], | [place], [place] | | | | | ma (HCC) | [place] | [address] | | | | | Procedures | [address] | Phone: | | | | | PET CT Skull | Phone: | [phone] | | | | | Base To Mid | [phone] | Fax: | | | | | Thigh | Fax: | [phone] | | | | | | [phone] | | +--------+--------+ + + + + Encounter Details +--------+ + + + + | Date | Type | Department | Care Team | Description | +--------+ + + + + | 02/18/ | Hospital | [facility] | Cristel Galicia MD | Tumor; 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 | | | Bbau-hk-arpn and in the right aspect of L4. [...] | |dilatation of the common bile duct. Wsgj-sl-jdfm and in the right aspect of L4. [...] | | of the common bile duct. Qzmt-nr-lrpx and in the right aspect of L4.IMPRESSION: No | | abnormal activity within the gastric lumen.Very low level activity in mildly prominent | | right axillary lymph nodes. Theseare indeterminate. The likelihood of malignancy | | related pathology is low giventhe SUV values.Focal asymmetric activity in the posterior | | left tongue base. Consider directvisualization.Dictated and Signed by: Raul Goldberg, | | MD Electronically signed: 02/18/2019 2:24 PM | |75). [...] | |dilatation of the common bile duct. Puqk-vy-nnjo and in the right aspect of L4. [...]
--- OUTSIDE RECORDS SUMMARY | ~2019-09-12 | XMS | Encounter Summary ---
Demographics + + + | Address | [address] | | | [place] [address] | + + + | Home Phone | | + + + | Preferred Language | Unknown | + + + | Marital Status | | + + + | Confucianist Affiliation | Unknown | + + + | Race | Unknown | + + + | Ethnic Group | Unknown | + + + Author + + + | Author | [facility] | | | and [place]eno[place] | + + + | Organization | [facility] | | | and [...] + | Matthew Ramirez | ECON | [address] | | | | | [place] | | | | | [address] | | + + + + + Care Team Providers + +------+ + | Care Nuclear Medicine Chief Technologist Name | Role | Phone | [...] H/O neoplasm | | | | [place], [place] | | of uncertain | | | | [address] | | behavior of skin; | | | | [phone] | | Primary localized | | | [...] of this encounter Progress Notes Adia Rosario, GIRLS SWIMMING COACH - 01/01/2019 11:27 AM PDTCT Chest Abdomen Pelvis w Contrast on 08/06/19 19 at [facility] FINDINGS: BONES: No osteoblastic or osteolytic [...]
--- OUTSIDE RECORDS SUMMARY | ~2019-09-12 | XMS | Encounter Summary ---
Demographics + + + | Address | [address] | | | [place] [address] | + + + | Home Phone | | + + + | Preferred Language | Unknown | + + + | Marital Status | | + + + | Buddhism Affiliation | Unknown | + + + | Race | Unknown | + + + | Ethnic Group | Unknown | + + + Author + + + | Author | [facility] | | | and [place] | + + + | Organization | [facility] | | | and [place] | + + + | Address | Unknown | + + + | Phone | Unavailable | + + + Support + + + + + | Name | Relationship | Address | Phone | + + + + + | Nella Haque | ECON | Unknown | | + + + + + | Matthew Ramirez | ECON | [address] | | | | | [place] | | | | | [address] | | + + + + + Care Team Providers + +------+ + | Care Dispatcher Clerk Name | Role | Phone | [...] + + | 01/20/ | Telephone | [facility] | Matthew Shukla MD | Results, Pathology | | 2019 | | GASTROENTEROLOGY | [address] [facility] | | | | | [address] [facility] | [place], [place] | | | | | [address] [place], [place] | [address] | | | | | [address] | [phone] | | | | | [phone] | | | +--------+ + + + [...]
--- OUTSIDE RECORDS SUMMARY | ~2019-09-12 | XMS | Encounter Summary ---
Demographics + + + | Address | [address] | | | [place] [address] | + + + | Home Phone [...] Author | [facility] | | | and [place]eno[place] | + + + | Organization | [facility] | [...] + | Matthew Ramirez | CHRIS | [address] | | | | | [place] | | | | | [address] | | + + + + + Care Team Providers + +------+ + | Care Magnetic Tape Winder Name | Role | Phone | + +------+ + PCP | Unavailable | + +------+ + Encounter Details +--------+ + + + + | Date | Type | Department | Care Team | Description | +--------+ + + + + | 12/30/ | Hospital | [facility] | | | | 2001 | Encounter | MED CTR XRAY [address] | | | | | | [address] | | | | | | [place] [address] | | | | | | [phone] | | | +--------+ + + + [...]
--- OUTSIDE RECORDS SUMMARY | ~2019-09-12 | XMS | Encounter Summary ---
Demographics + + + | Address | [address] | | | [place] [address] | + + + | Home Phone | | + + + | Preferred Language | Unknown | + + + | Marital Status | | + + + | Religion Affiliation | NRP | + + + | Race | White | + + + | Ethnic Group | Not or | + + + Author + + + | Author | [facility] | + + + | Organization | [facility] | + + + | Address | Unknown | + + + | Phone | Unavailable | + + + Support + + + + + | Name | Relationship | Address | Phone | + + + + + | Matthew Ramirez | CHRIS | [address] | | | | | [place] | | | | | [address] | | + + + + + | Nella Haque | ECON | Unknown | | + + + + + Care Team Providers + +------+ + | Care Social Sciences Lecturer Name | Role | Phone | [...] of bladder | | 2010 | | [facility] | MD Gillian [address] | (surgery 10/26/10, | | | | [address] | [facility] | urogyn) | | | | [address] | [place], [place] | | | | | [place], [address] [place] [address] | [address] | | | | | [place], [place] | [phone] | | | | | [address] | | | | | | [phone] | | | +--------+ + + + [...] | | | [place] | [address] | [address] | | + + + + + documented in this encounter Visit Diagnoses + + | Diagnosis | + + | UTI (urinary tract infection) - Primary Urinary tract infection, site not specified | + + documented in this encounter"
--- OUTSIDE RECORDS SUMMARY | ~2019-09-12 | XMS | Encounter Summary ---
Demographics + + + | Address | [address] | | | [place] [address] | + + + | Home Phone [...] + | Author | [facility] | | | and [place]eno[place] | + + + | Organization | [facility] | | | and [place]eno[place] [...] + | Matthew Ramirez | CHRIS | [address] | | | | | [place] | | | | | [address] | | + + + + + Care Team Providers + +------+ + | Care Explosion Welder Name | Role | Phone | + +------+ + PCP | Unavailable | + +------+ + Encounter Details +--------+ + + + + | Date | Type | Department | Care Team | Description | +--------+ + + + + | 06/15/ | Hospital | [facility] | | | | 2004 | Encounter | MED CTR XRAY [address] | | | | | | [address] | | | | | | [place] [address] | | | | | | [phone] | | | +--------+ + + + [...]
--- OUTSIDE RECORDS SUMMARY | ~2019-09-12 | XMS | Encounter Summary ---
Demographics + + + | Address | [address] | | | [place] [address] | + + + | Home Phone [...] | Author | [facility] | | | and [place]eno[place] | + + + | Organization | [facility] | [...] + | Matthew Ramirez | ECON | [address] | | | | | [place] | | | | | [address] | | + + + + + Care Team Providers + +------+ + | Care Slot Shift Supervisor Name | Role | Phone | [...] + + | 01/24/ | Telephone | [facility] | Matthew Shukla MD | Results, Pathology | | 2019 | | GASTROENTEROLOGY | [address] [facility] | | | | | [address] [facility] | [place], [place] | | | | | [address] [place], [place] | [address] | | | | | [address] | [phone] | | | | | [phone] | | | +--------+ + + + [...]
--- OUTSIDE RECORDS SUMMARY | ~2019-09-12 | XMS | Encounter Summary ---
Demographics + + + | Address | [address] | | | [place] [address] | + + + | Home Phone | | + + + | Preferred Language | Unknown | + + + | Marital Status | | + + + | Mormonism Affiliation | NRP | + + + [...] + | Matthew Ramirez | CHRIS | [address] | | | | | [place] | | | | | [address] | | + + + + + | Nella Haque | ECON | Unknown | | + + + + + Care Team Providers + +------+ + | Care Extrusion Operator Name | Role | Phone | [...] [address] | (Constipation) | | | | [facility] | [place], [place] | | | | | for Health and | [address] | | | | | Healing [address] | [phone] | | | | | [place], [place] | | | | | | [address] | | | | | | [phone] | | | +--------+ + + + [...]
--- OUTSIDE RECORDS SUMMARY | ~2019-09-12 | XMS | Encounter Summary ---
Demographics + + + | Address | [address] | | | [place] [address] | + + + | Home Phone | | + + + | Preferred Language | Unknown | + + + | Marital Status | | + + + | Latter-Day Affiliation | NRP | + + + | Race | White | + + + | Ethnic Group | Not or | + + + Author + + + | Author | [facility] | + + + | Organization | [facility] | + + + | Address | Unknown | + + + | Phone | Unavailable | + + + Support + + + + + | Name | Relationship | Address | Phone | + + + + + | Matthew Ramirez | CHRIS | [address] | | | | | [place] | | | | | [address] | | + + + + + | Nella Haque | ECON | Unknown | | + + + + + Care Team Providers + +------+ + | Care Carpenter Form Name | Role | Phone | + [...] | | | | ma (HCC) | [place], | | | | | | Procedures | [place] | | | | | | CT ABDOMEN | [address] | | | | | | AND PELVIS W | Phone: | | | | | | IV CONTRAST | [phone] | | | | | | | Fax: | | | | | | | [phone] | | + +--------+ + + + [...] | | | | ma (HCC) | [place], | | | | | | Procedures | [place] | | | | | | [place] | [address] | | | | | | CONTRAST | Phone: | | | | | | | [phone] | | | | | | | Fax: | | | | | | | [phone] | | + +--------+ + + + + Encounter Details +--------+ + + + + | Date | Type | Department | Care Team | Description | +--------+ + + + + | 01/28/ | Handle Machine Operator | Surgical Oncology | Cristel Galicia MD | Gastric | | 2019 | | at [facility] [address] | [address] | adenocarcinoma (HCC) | | | | Ave Mail Code: | [place], [place] | (Primary Dx) | | | | [place] for [facility] | [address] | | | | | and Healing, | [phone] | | | | | [address] | | | | | | [place], [place] | | | | | | [address] | | | | | | [phone] | | | +--------+ + + + [...]
--- OUTSIDE RECORDS SUMMARY | ~2019-09-12 | XMS | Encounter Summary ---
Demographics + + + | Address | [address] | | | [place] [address] | + + + | Home Phone [...] Author | [facility] | | | and Nenoana | + + + | Organization | [facility] [...] + | Matthew Ramirez | ECON | [address] | | | | | [place] | | | | | [address] | | + + + + + Care Team Providers + +------+ + | Care Waterproof Bag Sewer Name | Role | Phone | + [...] | | | | | | | PA REPAIR OF | | | | | [...] | | | [place], [place] | [place] [address] | | | | | [address] | [phone] | | | | | [phone] | | | +--------+---------+ + + + [...]
--- OUTSIDE RECORDS SUMMARY | ~2019-09-12 | XMS | Encounter Summary ---
Demographics + + + | Address | [address] | | | [place] [address] | + + + | Home Phone | | + + + | Preferred Language | Unknown | + + + | Marital Status | | + + + | Methodist Affiliation | Unknown | + + + | Race | Unknown | + + + | Ethnic Group | Unknown | + + + Author + + + | Author | [facility] | | | and Nenoana | + + + | Organization | [facility] | | | and Nenoana | [...] + | Matthew Ramirez | ECON | [address] | | | | | [place] | | | | | [address] | | + + + + + Care Team Providers + +------+ + | Care Dialysis Tech Name | Role | Phone | [...] | | [address] | [place] [address] | | | | | [address] | | | | | | [phone] | | | +--------+ + + + [...]
--- OUTSIDE RECORDS SUMMARY | ~2019-09-12 | XMS | Encounter Summary ---
Demographics + + + | Address | [address] | | | [place] [address] | + + + | Home Phone | | + + + | Preferred Language | Unknown | + + + | Marital Status | | + + + | Evangelical Affiliation | Unknown | + + + | Race | Unknown | + + + | Ethnic Group | Unknown | + + + Author + + + | Author | [facility] | | | and Nenoana | + + + | Organization | [facility] [...] + | Matthew Ramirez | CHRIS | [address] | | | | | [place] | | | | | [address] | | + + + + + Care Team Providers + +------+ + | Care Senior Principal Architect Name | Role | Phone | + +------+ + PCP | Unavailable | + +------+ + Encounter Details +--------+ + + + + | Date | Type | Department | Care Team | Description | +--------+ + + + + | 11/24/ | Hospital | [facility] | [place], | | | 2009 | Encounter | MED CTR GENERIC OP | Katerin Xavier MD | | | | | CONV DEPT [address] | | | | | | [place], | | | | | | [place] [address] | | | | | | [phone] | | | +--------+ + + + [...]
--- OUTSIDE RECORDS SUMMARY | ~2019-09-12 | XMS | Encounter Summary ---
Demographics + + + | Address | [address] | | | [place] [address] | + + + | Home Phone [...] [facility] | | | and Nenoana | + + + | Organization | [facility] | | | and [...] + | Matthew Ramirez | ECON | [address] | | | | | [place] | | | | | [address] | | + + + + + Care Team Providers + +------+ + | Care Core Carrier Name | Role | Phone | + [...] | | cancer | Luis Richards, | [place] | | | | | metastasized | MD [address] | [place], [place] | | | | | to multiple | [address] | [address] | | | | | sites, left | [place], | Phone: | | | | | (HCC) | [place] [address] | [phone] | | | | | Procedures | Phone: | Fax: | | | | | PET CT Skull | [phone] | [phone] | | | | | Base To Mid | Fax: | | | | | | Thigh | [phone] | | +--------+--------+ + + + + [...] [address] | | | | | [address] [place] [place] | [place] [address] | | | | | [place] [address] | [phone] | | | | | [phone] | | | +--------+ + + + [...]
--- OUTSIDE RECORDS SUMMARY | ~2019-09-12 | XMS | Encounter Summary ---
Demographics + + + | Address | [address] | | | [place] [address] | + + + | Home Phone | | + + + | Preferred Language | Unknown | + + + | Marital Status | | + + + | Judaism Affiliation | NRP | + + + [...] + | Matthew Ramirez | CHRIS | [address] | | | | | [place] | | | | | [address] | | + + + + + | Nella Haque | ECON | Unknown | | + + + + + Care Team Providers + +------+ + | Care Marine Engine Driver Name | Role | Phone | [...] | | | | ma (HCC) | [place], | | | | | | Procedures | [place] | | | | | | CT ABDOMEN | [address] | | | | | | AND PELVIS W | Phone: | | | | | | IV CONTRAST | [phone] | | | | | | | Fax: | | | | | | | [phone] | | + +--------+ + + + [...] | | | | ma (HCC) | [place], | | | | | | Procedures | [place] | | | | | | [place] | [address] | | | | | | CONTRAST | Phone: | | | | | | | [phone] | | | | | | | Fax: | | | | | | | [phone] | | + +--------+ + + + + Encounter Details +--------+ + + + + | Date | Type | Department | Care Team | Description | +--------+ + + + + | 01/28/ | Telephone Instrument Supervisor | Surgical Oncology | Cristel Galicia MD | Gastric | | 2019 | | at [facility] [address] | [address] | adenocarcinoma (HCC) | | | | Ave Mail Code: | [place], [place] | (Primary Dx) | | | | [place] for [facility] | [address] | | | | | and Healing, | [phone] | | | | | [address] | | | | | | [place], [place] | | | | | | [address] | | | | | | [phone] | | | +--------+ + + + [...]
--- OUTSIDE RECORDS SUMMARY | ~2019-09-12 | XMS | Encounter Summary ---
Demographics + + + | Address | [address] | | | [place] [address] | + + + | Home Phone [...] Author | [facility] | | | and Nenoana | + + + | Organization | [facility] | [...] + | Matthew Ramirez | CHRIS | [address] | | | | | [place] | | | | | [address] | | + + + + + Care Team Providers + +------+ + | Care Clay Machine Operator Name | Role | Phone | + +------+ + PCP | Unavailable | + +------+ + Encounter Details +--------+ + + + + | Date | Type | Department | Care Team | Description | +--------+ + + + + | 01/26/ | Hospital | [facility] | | | | 2008 | Encounter | MED CTR XRAY [address] | | | | | | [place] | | | | | | [place] [address] | | | | | | [phone] | | | +--------+ + + + [...]
--- OUTSIDE RECORDS SUMMARY | ~2019-09-12 | XMS | Encounter Summary ---
Demographics + + + | Address | [address] | | | [place] [address] | + + + | Home Phone | | + + + | Preferred Language | Unknown | + + + | Marital Status | | + + + | Zoroastrianism Affiliation | Unknown | + + + | Race | Unknown | + + + | Ethnic Group | Unknown | + + + Author + + + | Author | [facility] | | | and Nenoana | + + + | Organization | [facility] | | | and [...] + | Matthew Ramirez | ECON | [address] | | | | | [place] | | | | | [address] | | + + + + + Care Team Providers + +------+ + | Care Mold Yarn Supervisor Name | Role | Phone | [...] Clinton Stringer, | | | | | ([facility]) | MD [address] | MD [address] | | | | | | [address] | [place] | | | | | | [place], | [place], [place] | | | | | | [place] [address] | [address] | | | | | | Phone: | Phone: | | | | | | [phone] | [phone] | | | | | | Fax: | Fax: | | | | | | [phone] | [phone] | +--------+ + + + + + Encounter Details +--------+ + + + + | Date | Type | Department | Care Team | Description | +--------+ + + + + | 01/25/ | Orders Only | [facility] | Arpan, | Linitis plastica | | 2019 | | MED CTR MEDICAL | Luis Richards MD [address] | ([facility]) (Primary Dx) | | | | ONCOLOGY CLINIC [address] | [address] [place] | | | | | [address] [place] | [place] [address] | | | | | [place] [address] | [phone] | | | | | [phone] | | | +--------+ + + + [...]
--- OUTSIDE RECORDS SUMMARY | ~2019-09-12 | XMS | Encounter Summary ---
Demographics + + + | Address | [address] | | | [place] [address] | + + + | Home Phone | | + + + | Preferred Language | Unknown | + + + | Marital Status | | + + + | Yazidism Affiliation | Unknown | + + + | Race | Unknown | + + + | Ethnic Group | Unknown | + + + Author + + + | Author | [facility] | | | and Nenoana | + + + | Organization | [facility] | | | and [...] + | Matthew Ramirez | ECON | [address] | | | | | [place] | | | | | [address] | | + + + + + Care Team Providers + +------+ + | Care Helix Coil Winder Name | Role | Phone | [...] | HOSPITAL OR INTRA OP | D, SMOKE CONTROL SUPERVISOR [address] | | | | | [address] [place] | [place], [place] | | | | | [place], [place] | [address] | | | | | [address] | | | | | | [phone] | | | +--------+ + + + + Anesthesia Record + + + + + | Procedure Name | Responsible | Anesthesia Start | Anesthesia Stop Time | | | Anesthesiologist | Time | | + + + + + | Correction Josué | Luz Farias, | 03/06/17 1119 | 10/26/17 1228 | | Toes 2nd , 3rd, and | SMOKE CONTROL SUPERVISOR | | | | 4th Toes (Right [...] | 2 | | [facility] | | | 7 | [...] | Jacklyn Dominguez | | IV | cdnd-pyh-[id number] catheter system; | | VIRI Barillas | [...] | | | | | CONTINUOUS, Starting [facility] 03/06/17 | | AM PDT | | [...]
--- OUTSIDE RECORDS SUMMARY | ~2019-09-12 | XMS | Encounter Summary ---
Demographics + + + | Address | [address] | | | [place] [address] | + + + | Home Phone [...] + | Author | [facility] | | | and Nenoana | + + + | Organization | [facility] | [...] + | Matthew Ramirez | CHRIS | [address] | | | | | [place] | | | | | [address] | | + + + + + Care Team Providers + +------+ + | Care Field Contact Technician Name | Role | Phone | + +------+ + PCP | Unavailable | + +------+ + Encounter Details +--------+ + + + + | Date | Type | Department | Care Team | Description | +--------+ + + + + | 07/15/ | Hospital | [facility] | | | | 2001 | Encounter | MED CTR GENERIC OP | | | | | | CONV DEPT [address] | | | | | | [place], | | | | | | [place] [address] | | | | | | [phone] | | | +--------+ + + + [...]
--- OUTSIDE RECORDS SUMMARY | ~2019-09-12 | XMS | Encounter Summary ---
Demographics + + + | Address | [address] | | | [place] [address] | + + + | Home Phone [...] + | Matthew Ramirez | CHRIS | [address] | | | | | [place] | | | | | [address] | | + + + + + | Nella Haque | ECON | Unknown | | + + + + + Care Team Providers + +------+ + | Care Heavy Equipment Supervisor Name | Role | Phone | [...] | | | | | stress | [place], [place] | [place], [place] | | | | | incontinence | [address] | [address] | | | | | Procedures | Phone: | Phone: | | | | | REQUEST TO | [phone] | [phone] | | | | | SURGERY | Fax: | Fax: | | | | | FLARE BREAKER | [phone] | [phone] | | | | | [place] | | | | | | | CYSTOURETHRO | | | | | | | [place] | | | | | | | SLING OPER | | | | | | | STRES | | | | | | | INCONTINENCE | | | +--------+--------+ + + + + Encounter Details +--------+---------+ + + + | Date | Type | Department | Care Team | Description | +--------+---------+ + + + | 11/29/ | Office | [facility] | Avis Rios | Postop check | | 2010 | Visit | [facility] | MD Gillian [address] | (Primary Dx) | | | | [place] [address] | [address] | | | | | [address] | [place], [place] | | | | | [place], [facility] floor | [address] | | | | | [place], [place] | [phone] | | | | | [address] | | | | | | [phone] | | | +--------+---------+ + + + [...]
--- OUTSIDE RECORDS SUMMARY | ~2019-09-12 | XMS | Encounter Summary ---
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 | [address] | [place], | | | | | ma (HCC) | [address] | [place] [address] | | | | | Procedures | [place], [place] | Phone: | | | | | CT Chest | [address] | [phone] | | | | | Abdomen | Phone: | Fax: | | | | | Pelvis w | [phone] | [phone] | | | | | Contrast | Fax: | | | | | | CHG CT | [phone] | | | | | | SCAN,ABDOMEN | | | | | | | AND | | | | | | | PELVIS,W | | | | | | | CONTRAST [place] | | | | | | | [...] | 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 | [address] | | | | | adenocarcino | [address] | [place], | | | | | ma (HCC) | [address] | [place] [address] | | | | | Procedures | [place], [place] | Phone: | | | | | CT Chest | [address] | [phone] | | | | | Abdomen | Phone: | Fax: | | | | | Pelvis w | [phone] | [phone] | | | | | Contrast | Fax: | | | | | | CHG CT | [phone] | | | | | | SCAN,ABDOMEN | | | | | | | AND | | | | | | | PELVIS,W | | | | | | | CONTRAST [place] | | | | | | | CAT SCAN OF | | | | | | | CHEST | | | | | | | CONTRAST | | | +--------+--------+ + + + + Encounter Details +--------+ + + + + | Date | Type | Department | Care Team | Description | +--------+ + + + + | 12/31/ | Hospital | [facility] | Matthew Shukla MD | 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
--- OUTSIDE RECORDS SUMMARY | ~2019-09-12 | XMS | Encounter Summary ---
Demographics + + + | Address | [address] | | | [place] [address] | + + + | Home Phone | | + + + | Preferred Language | Unknown | + + + | Marital Status | | + + + | Pentecostal Affiliation | Unknown | + + + | Race | Unknown | + + + | Ethnic Group | Unknown | + + + Author + + + | Author | [facility] | | | and Nenoana | + + + | Organization | [facility] | [...] + | Matthew Ramirez | ECON | [address] | | | | | [place] | | | | | [address] | | + + + + + Care Team Providers + +------+ + | Care Recoater Name | Role | Phone | + [...] + + | 01/24/ | Telephone | [facility] | Matthew Shukla MD | Results, Pathology | | 2019 | | GASTROENTEROLOGY | [address] [facility] | | | | | [address] [facility] | [place], [place] | | | | | [address] [place], [place] | [address] | | | | | [address] | [phone] | | | | | [phone] | | | +--------+ + + + [...]
--- OUTSIDE RECORDS SUMMARY | ~2019-09-12 | XMS | Encounter Summary ---
Demographics + + + | Address | [address] | | | [place] [address] | + + + | Home Phone | | + + + | Preferred Language | Unknown | + + + | Marital Status | | + + + | Methodist Affiliation | Unknown | + + + | Race | Unknown | + + + | Ethnic Group | Unknown | + + + Author + + + | Author | [facility] | | | and Nenoana | + + + | Organization | [facility] | | | and Nenoana [...] + | Matthew Ramirez | ECON | [address] | | | | | [place] | | | | | [address] | | + + + + + Care Team Providers + +------+ + | Care Certified Novell Engineer Name | Role | Phone | [...] | | | [place], [place] | [place] [address] | | | | | [address] | [phone] | | | | | [phone] | | | +--------+---------+ + + + [...] Care Everywhere.Foot Surgery: Maurice pace Fifth Toe (Turkish)Foot Surgery: Flexible and Rigid Hammertoes (Turkish)Mallet, Hammer , and Claw Toes, Treating (Turkish)Mallet, Hammer, and Claw Toes, What Are (Turkish)document ed in this encounter Medications at Time [...]
--- OUTSIDE RECORDS SUMMARY | ~2019-09-12 | XMS | Encounter Summary ---
Demographics + + + | Address | [address] | | | [place] [address] | + + + | Home Phone | | + + + | Preferred Language | Unknown | + + + | Marital Status | | + + + | Evangelical Affiliation | Unknown | + + + | Race | Unknown | + + + | Ethnic Group | Unknown | + + + Author + + + | Author | [facility] | | | and Nenoana | + + + | Organization | [facility] | | [...] + | Matthew Ramirez | ECON | [address] | | | | | [place] | | | | | [address] | | + + + + + Care Team Providers + +------+ + | Care Hearing And Speech Assistant Name | Role | Phone | [...] | | | | | | [place] [address] | | | | | | [phone] | | | +--------+ + + + [...]
--- OUTSIDE RECORDS SUMMARY | ~2019-09-12 | XMS | Encounter Summary ---
Demographics + + + | Address | [address] | | | [place] [address] | + + + | Home Phone [...] | Author | [facility] | | | and Nenoana | + + + | Organization | [facility] [...] + | Matthew Ramirez | ECON | [address] | | | | | [place] | | | | | [address] | | + + + + + Care Team Providers + +------+ + | Care Attending Ambulatory Care Name | Role | Phone | [...] | | | | | | CO REPAIR | | | | | | [...] HOSPITAL OR INTRA OP | JACKIE Sanon [address] | | | | | [address] [place] | [place] [place], | | | | | [place], [place] | [place] [address] | | | | | [address] | [phone] | | | | | [phone] | | | +--------+ + + + [...]
--- OUTSIDE RECORDS SUMMARY | ~2019-09-12 | XMS | Encounter Summary ---
Demographics + + + | Address | [address] | | | [place] [address] | + + + | Home Phone [...] + | Matthew Ramirez | CHRIS | [address] | | | | | [place] | | | | | [address] | | + + + + + | Nella Haque | ECON | Unknown | | + + + + + Care Team Providers + +------+ + | Care Certified Professional Ergonomist Name | Role | Phone | + +------+ + | Long Copeland MD | PCP | | + +------+ + Encounter Details +--------+ + + + + | Date | Type | Department | Care Team | Description | +--------+ + + + + | 10/10/ | Outside | UNKNOWN DEPARTMENT | Other, Faculty | | | 2019 | Records | [address] [facility] | [phone] | | | | | [address] | | | | | | [place], [place] | | | | | | [address] | | | +--------+ + + + [...]
--- OUTSIDE RECORDS SUMMARY | ~2019-09-12 | XMS | Encounter Summary ---
Demographics + + + | Address | [address] | | | [place] [address] | + + + | Home Phone | | + + + | Preferred Language | Unknown | + + + | Marital Status | | + + + | Hinduism Affiliation | Unknown | + + + | Race | Unknown | + + + | Ethnic Group | Unknown | + + + Author + + + | Author | [facility] | | | and Nenoana | + + + | Organization | [facility] | [...] + | Matthew Ramirez | ECON | [address] | | | | | [place] | | | | | [address] | | + + + + + Care Team Providers + +------+ + | Care General Cleaner Name | Role | Phone | + [...] | | | [address] [place] | [place] [address] | | | | | [place] [address] | | | | | | [phone] | | | +--------+ + + + [...]
--- OUTSIDE RECORDS SUMMARY | ~2019-09-12 | XMS | Clinical Summary ---
Demographics + + + | Address | [address] | | | [place] [address] | + + + | Home Phone [...] + | Matthew Ramirez | ECON | [address] | | | | | [place] | | | | | [address] | | + + + + + | Nella Haque | ECON | Unknown | | + + + + + Care Team Providers + +------+ + | Care Freight Broker Name | Role | Phone | + +------+ + | Long Copeland MD | PCP | | + +------+ + Source Comments MEÑO is fully live on both [facility] and [facility] In[facility] Allergies + + + + [...] | | | | e | | [place] | once daily. | | | | [...] | | + + + +---------+------+------+-------+ | traMADoL 50 mg | Take 1 tablet by | 90 | 0 | 04/1 | | Activ | | oral | mouth every eight | tablet | | /20 | | e | | tabletIndications: | hours as needed for | | | 20 | | | | pain | moderate pain. | | | | | | | | Indications: pain | | | | | | [...] Bower MD | Metastatic breast | | 2020 | Visit | Oncology | | cancer (HCC) | | | | | | (Primary Dx) | +--------+ + + + + | 07/28/ | Refill | Hematology & | Larissa Colón, | Medication | | 2019 | | Oncology | PharmD | (Letrozole) | +--------+ + + + + | 07/27/ | Telephone | Hematology & | Rodriguez Bower MD | Symptom Management | | 2019 | | Oncology | | (Constipation) | +--------+ + + + + | 07/25/ | Telephone | Hematology & | Rodriguez Bower MD | Scheduling | | 2019 | | Oncology | | | +--------+ + + + + | 07/07/ | Telephone | Hematology & | Rodriguez Bower MD | Scheduling; Care | | 2020 | | Oncology | | Coordination | +--------+ + + + + | 06/23/ | Refill | Hematology & | Rodriguez Bower MD | Refill Request | | 2019 | | Oncology | | (Tamoxifen) | +--------+ + + + + | 06/22/ | Telephone | Hematology & | Rodriguez Bower MD | Care Coordination | | 2020 | | Oncology | | (call back requested | | | | | | ) | +--------+ + + + + from [...] | | | | | | | [address] | | + +--------+ +--------+ + +--------+ | MODA MEDICARE | MODA | xxxxxxxxx | 05/12/19 | [phone] | [address] | [address] | | SUPPLEMENT | MEDICA | | 19-Pre | 4 | [phone] | | | | RE | | sent | | [place], | | | | SUPPLE | | | | [place] [address] | | | | MENT | | [...] Person | Self | [birth year] | [address] | | | al/Rene | | [phone] | [phone] | [place] | | | amrik | | | 9 (Home) | [address] | + +--------+ +--------+ + + Advance [...]
--- OUTSIDE RECORDS SUMMARY | ~2019-09-12 | XMS | Encounter Summary ---
Demographics + + + | Address | [address] | | | [place] [address] | + + + | Home Phone | | + + + | Preferred Language | Unknown | + + + | Marital Status | | + + + | Jainism Affiliation | Unknown | + + + | Race | Unknown | + + + | Ethnic Group | Unknown | + + + Author + + + | Author | [facility] | | | and Nenoana | + + + | Organization | [facility] [...] + | Matthew Ramirez | ECON | [address] | | | | | [place] | | | | | [address] | | + + + + + Care Team Providers + +------+ + | Care Laboratory Animal Facility Supervisor Name | Role | Phone | [...] | | [address] | [place] [address] | | | | | [address] | | | | | | [phone] | | | +--------+ + + + [...]
--- OUTSIDE RECORDS SUMMARY | ~2019-09-12 | XMS | Encounter Summary ---
Demographics + + + | Address | [address] | | | [place] [address] | + + + | Home Phone [...] | Author | [facility] | | | and Nenoana | + + + | Organization | [facility] [...] + | Matthew Ramirez | ECON | [address] | | | | | [place] | | | | | [address] | | + + + + + Care Team Providers + +------+ + | Care Block Machine Operator Name | Role | Phone [...] | | | | | | [place] [facility] OF | | | | | [...] | | | [place], [place] | [place] [address] | | | | | [address] | [phone] | | | | | [phone] | | | +--------+ + + + [...]
--- OUTSIDE RECORDS SUMMARY | ~2019-09-12 | XMS | Encounter Summary ---
Demographics + + + | Address | [address] | | | [place] [address] | + + + | Home Phone | | + + + | Preferred Language | Unknown | + + + | Marital Status | | + + + | Pentecostalism Affiliation | NRP | + + + [...] + | Matthew Ramirez | CHRIS | [address] | | | | | [place] | | | | | [address] | | + + + + + | Nella Haque | ECON | Unknown | | + + + + + Care Team Providers + +------+ + | Care Director Of Research And Development Name | Role | Phone | + [...] | | | | | | | [facility] | | | | | | | [facility] | | | | | | | [facility] | | | | | | | ([facility]) | | | | | | | [place], | | | | | | | [place] [address] | | | | | | | Phone: | | | | | | | [phone] | | | | | | | Fax: | | | | | | | [phone] | +--------+--------+ + + + + Encounter Details +--------+ + + + + | Date | Type | Department | Care Team | Description | +--------+ + + + + | 10/26/ | Hospital | [facility] [address] | Avis Rios | | | 2010 | Encounter | [address] | MD Gillian [address] | | | | | [facility] | [address] | | | | | [facility] | [place], [place] | | | | | ([facility]) | [address] | | | | | [place], [place] | [phone] | | | | | [address] | | | | | | [phone] | | | +--------+ + + + [...] Discharge Instructions Instructions Laura Mendes RN - 10/26/2010[facility] Transvaginal Suburethral Sling WHAT YOU SHOULD KNOW A transvaginal suburethral sling is surgery to treat stress incontinence (of-OYT-hop-nasima) . The goal of surgery is to [...] TO REACH YOUR DOCTOR Friday call the [facility] at [phone] After hours, weekend and holidays call the [facility] at [phone]. Ask them to page your doctor. RETURN [...] nostril | | | | | | [place] | once daily. | | | | [...]
--- OUTSIDE RECORDS SUMMARY | ~2019-09-12 | XMS | Encounter Summary ---
Demographics + + + | Address | [address] | | | [place] [address] | + + + | Home Phone [...] | Author | [facility] | | | and Nenoana | + + + | Organization | [facility] | | [...] + | Matthew Ramirez | ECON | [address] | | | | | [place] | | | | | [address] | | + + + + + Care Team Providers + +------+ + | Care Civil Project Engineer Name | Role | Phone | [...] | | [address] | [place] [address] | | | | | [address] | | | | | | [phone] | | | +--------+ + + + [...]
--- OUTSIDE RECORDS SUMMARY | ~2019-09-12 | XMS | Encounter Summary ---
Demographics + + + | Address | [address] | | | [place] [address] | + + + | Home Phone [...] | [facility] | | | and Nenoana | + + + | Organization | [facility] | | | and Nenoana [...] + | Matthew Ramirez | ECON | [address] | | | | | [place] | | | | | [address] | | + + + + + Care Team Providers + +------+ + | Care Wool Cleaner Name | Role | Phone | [...] | H[facility] | [address], [address] | | | | | [address] | [place], [place] | | | | | [place], [place] | [address] | | | | | [address] | | | | | | [phone] | | | +--------+ + + + + Anesthesia Record + + + + + | Procedure Name | Responsible | Anesthesia Start | Anesthesia Stop Time | | | Anesthesiologist | Time | | + + + + + | Correction Josué | Luz Farias, | 03/06/17 1119 | 10/26/17 1228 | | Toes 2nd , 3rd, and | LISW | | | | 4th Toes (Right [...] | 2 | | [facility]. | | | 7 [...] | Jacklyn Dominguez | | IV | ybpo-vkj-nizqhh catheter system; | | VIRI Barillas | [...] | | | | | CONTINUOUS, Starting [facility] 03/06/17 | | AM PDT | | [...]
--- OUTSIDE RECORDS SUMMARY | ~2019-09-12 | XMS | Encounter Summary ---
Demographics + + + | Address | [address] | | | [place] [address] | + + + | Home Phone [...] [facility] | | | and Nenoana | + + + | Organization | [facility] [...] + | Matthew Ramirez | ECON | [address] | | | | | [place] | | | | | [address] | | + + + + + Care Team Providers + +------+ + | Care Rigging Slinger Name | Role | Phone | + [...] | | [address] | [place] [address] | | | | | [address] | | | | | | [phone] | | | +--------+ + + + [...]
--- OUTSIDE RECORDS SUMMARY | ~2019-09-12 | XMS | Encounter Summary ---
Demographics + + + | Address | [address] | | | [place] [address] | + + + | Home Phone [...] + | Author | [facility] | | | and Nenoana | + + + | Organization | [facility] | | | and Nenoana [...] + | Matthew Ramirez | ECON | [address] | | | | | [place] | | | | | [address] | | + + + + + Care Team Providers + +------+ + | Care Shake Splitter Name | Role | Phone | + +------+ + | Ashly Rojo PA-C | PCP | | + +------+ + Reason for Visit + + + | Reason | Comments | + + + | Procedure | | + + + Encounter Details +--------+ + + + + | Date | Type | Department | Care Team | Description | +--------+ + + + + | 12/17/ | Telephone | [facility] | Matthew Shukla MD | Procedure | | 2019 | | GASTROENTEROLOGY | [address] [facility] | | | | | [address] | [place], [place] | | | | | [address] [place], [place] | [address] | | | | | [address] | [phone] | | | | | [phone] | | | +--------+ + + + [...]
--- OUTSIDE RECORDS SUMMARY | ~2019-09-12 | XMS | Encounter Summary ---
Demographics + + + | Address | [address] | | | [place] [address] | + + + | Home Phone | | + + + | Preferred Language | Unknown | + + + | Marital Status | | + + + | Adventist Affiliation | Unknown | + + + | Race | Unknown | + + + | Ethnic Group | Unknown | + + + Author + + + | Author | [facility] | | | and Nenoana | + + + | Organization | [facility] | | | and Nenoana [...] + | Matthew Ramirez | ECON | [address] | | | | | [place] | | | | | [address] | | + + + + + Care Team Providers + +------+ + | Care Lead Programmer Analyst Name | Role | Phone | [...] | | Procedures | [address] | [place] [address] | | | | | office visit | [place] | Phone: | | | | | | [place] [address] | [phone] | | | | | | Phone: | Fax: | | | | | | [phone] | [phone] | | | | | | Fax: | | | | | | | [phone] | | +--------+--------+ + + + + Encounter Details +--------+---------+ + + + | Date | Type | Department | Care Team | Description | +--------+---------+ + + + | 12/14/ | Office | [facility] | Matthew Shukla MD | Chronic abdominal | | 2019 | Visit | GASTROENTEROLOGY | [address] | pain (Primary Dx); | | | | [address] [facility] | [place], [place] | Diarrhea, | | | | [address] [place], [place] | [address] | unspecified type; | | | | [address] | [phone] | Rectal bleeding; | | | | [phone] | | Benzodiazepine | | | | [...] 0700 on 12/17, finishing by 0830; 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 Encouraged [...]
--- OUTSIDE RECORDS SUMMARY | ~2019-09-12 | XMS | Encounter Summary ---
Demographics + + + | Address | [address] | | | [place] [address] | + + + | Home Phone | | + + + | Preferred Language | Unknown | + + + | Marital Status | | + + + | Jainism Affiliation | NRP | + + + | Race | White | + + + | Ethnic Group | Not or | + + + Author + + + | Author | [facility] | + + + | Organization | [facility] | + + + | Address | Unknown | + + + | Phone | Unavailable | + + + Support + + + + + | Name | Relationship | Address | Phone | + + + + + | Matthew Ramirez | CHRIS | [address] | | | | | [place] | | | | | [address] | | + + + + + | Nella Haque | ECON | Unknown | | + + + + + Care Team Providers + +------+ + | Care Talend Etl Developer Name | Role | Phone | [...] Villal[place]os | Adjustment | | | | [facility] | [place], [place] | (Acetaminophen | | | | for Health and | [address] | adjustment ) | | | | Healing [address] | [phone] | | | | | [place], [place] | | | | | | [address] | | | | | | [phone] | | | +--------+ + + + [...]
--- OUTSIDE RECORDS SUMMARY | ~2019-09-12 | XMS | Encounter Summary ---
Demographics + + + | Address | [address] | | | [place] [address] | + + + | Home Phone [...] + | Author | [facility] | | | and Nenoana | + + + | Organization | [facility] [...] + | Matthew Ramirez | ECON | [address] | | | | | [place] | | | | | [address] | | + + + + + Care Team Providers + +------+ + | Care Welder Manufacture Name | Role | Phone | + [...] | | [address] | [place] [address] | | | | | [address] | | | | | | [phone] | | | +--------+ + + + [...]
--- OUTSIDE RECORDS SUMMARY | ~2019-09-12 | XMS | Encounter Summary ---
Demographics + + + | Address | [address] | | | [place] [address] | + + + | Home Phone | | + + + | Preferred Language | Unknown | + + + | Marital Status | | + + + | Mandaeism Affiliation | NRP | + + + [...] + | Matthew Ramirez | CHRIS | [address] | | | | | [place] | | | | | [address] | | + + + + + | Nella Mitchellox Beverley ECON | Unknown | | + + + + + Care Team Providers + +------+ + | Care Audit Intern Name | Role | Phone | + +------+ + | Long Copeland MD | PCP | | + +------+ + Encounter Details +--------+ + + + + | Date | Type | Department | Care Team | Description | +--------+ + + + + | 01/28/ | Drier Feeder | Surgical Oncology | Cristel Galicia MD | Gastric | | 2019 | | at [facility] [address] | [address] | adenocarcinoma (HCC) | | | | Ave Mail Code: | [place], [place] | (Primary Dx) | | | | [facility] | [address] | | | | | and Healing, | [phone] | | | | | [address] | | | | | | [place], [place] | | | | | | [address] | | | | | | [phone] | | | +--------+ + + + [...] + +--------+ + + + | PATHOLOGY CONSULT - | Routin | 01/13/2019 | Gastric | Results for this | | REVIEW OUTSIDE | e | 7:00 PM | adenocarcinoma (HCC) | procedure are in the | | SLIDES | | PDT | | results section. | + +--------+ + + + documented in this encounter Results PATHOLOGY CONSULT - REVIEW OUTSIDE SLIDES (01/13/2019 7:00 PM PDT) + + + + + + | Component | Value | Ref Range | Performed | Pathologist | | | | | At | Signature | + + + + + + | Clinical | Random gastric biopsies | | [facility] | | | History | | | DEPARTMENT | | | | | | OF | | | | | | PATHOLOGY | | + + + + + + | Final | 1. Multiple specimens A | | [facility] | Electronically | | Pathologic | to F [id number]; | | DEPARTMENT | signed by Bonifacio | | Diagnosis | 01/13/19):A. Stomach, | | OF | T Dipti, | | | antrum at great | | PATHOLOGY | MD on | | | curvature, biopsy: | | | 02/09/2019 at | | | Rare foci of | | | 1:13 PM | | | poorly-differentiated | | | | | | carcinoma (see | | | | | | comment) No evidence | | | | | | of Helicobacter pylori | | | | | | by provided | | | | | | immunostainB. Stomach, | | | | | | antrum at lesser | | | | | | curvature, biopsy: | | | | | | Gastric antral mucosa | | | | | | with mild chronic | | | | | | inflammation No | | | | | | evidence of malignancyC. | | | | | | Stomach, angularis, | | | | | | biopsy: Rare foci of | | | | | | poorly-differentiated | | | | | | carcinoma (see | | | | | | comment)D.Stomach, body | | | | | | at greater curvature, | | | | | | biopsy Rare foci of | | | | | | poorly-differentiated | | | | | | carcinoma (see | | | | | | comment)E. Stomach, body | | | | | | at lesser curvature, | | | | | | biopsy: Rare foci of | | | | | | poorly-differentiated | | | | | | carcinoma (see | | | | | | comment)F. Stomach, | | | | | | fundus, biopsy: Rare | | | | | | foci of | | | | | | poorly-differentiated | | | | | | carcinoma (see | | | | | | comment)Comment: We | | | | | | appreciate the | | | | | | opportunity to review | | | | | | this case and agree with | | | | | | the reported diagnosis. | | | | | | Rare scattered tumor | | | | | | cells are identified | | | | | | between otherwise | | | | | | unremarkable gastric | | | | | | glands and underlying | | | | | | muscularis mucosae. The | | | | | | tumor cells are | | | | | | highlighted by provided | | | | | | [place]-cytokeratin, RACHANA-3, | | | | | | and ER (weak) | | | | | | immunostains; CDX-2 is | | | | | | negative. No background | | | | | | intestinal metaplasia or | | | | | | dysplasia is | | | | | | identified. The combined | | | | | | immunohistologic | | | | | | findings favor | | | | | | metastatic lobular | | | | | | breast carcinoma, | | | | | | although primary gastric | | | | | | adenocarcinoma cannot | | | | | | fully be excluded. The | | | | | | tumor cells are too rare | | | | | | for accurate hormone | | | | | | receptor testing. | | | | | | aMry Moss has reviewed | | | | | | this case and agrees | | | | | | with the | | | | | | interpretation.Case seen | | | | | | by:Rach Garcia | | | | | | MD Raphael | | | | | | | | | | | | Pathology ResidentBrian | | | | | | MD Dipti | | | | | | | | | | | | PathologistPathology, | | | | | | [facility] [employer] [facility] | | | | | | UniversityMy electronic | | | | | | signature indicates that | | | | | | I have personally | | | | | | reviewed all diagnostic | | | | | | slides, the gross and/or | | | | | | microscopic portion of | | | | | | this report and | | | | | | formulated the final | | | | | | diagnosis. | | | | + + + + + + | Materials | Specimen AReferring | | [facility] | | | Received | Institution: [place] | | DEPARTMENT | | | | [facility] | | OF | | | | [place], [place] | | PATHOLOGY | | | | [id number] Accession | | | | | | Number: | | | | | | [id number] | | | | | | Collection Date: | | | | | | 01/13/2019Sublabeled H&E | | | | | | IHC's A to F 6 h15 | | | | + + + + + + | Ancillary | Analyte specific | | [facility] | | | Information | reagents are used in | | DEPARTMENT | | | | many laboratory tests | | OF | | | | necessary for standard | | PATHOLOGY | | | | medical care. This test | | | | | | was developed and its | | | | | | performance | | | | | | characteristics | | | | | | determined by [facility] | | | | | | laboratories. It has not | | | | | | been cleared or | | | | | | approved by the US Food | | | | | | and Drug Administration | | | | | | (FDA). FDA does not | | | | | | require this test to go | | | | | | through premarket FDA | | | | | | review. This test is | | | | | | used for clinical | | | | | | purposes. It should not | | | | | | be regarded as | | | | | | investigational or for | | | | | | research. This | | | | | | laboratory is certified | | | | | | under the Clinical | | | | | | Laboratory Improvement | | | | | | Amendments (CLIA) as | | | | | | qualified to perform | | | | | | high complexity clinical | | | | | | laboratory testing. If | | | | | | immunohistochemical | | | | | | analysis (IHC) was | | | | | | performed concurrently | | | | | | with flow cytometry, the | | | | | | IHC was done to allow | | | | | | assessment of | | | | | | immunoarchitecture, | | | | | | which is not supplied by | | | | | | flow cytometry. Flow | | | | | | cytometry enables better | | | | | | assessment of clonality | | | | | | and antigen aberrancy | | | | | | than IHC. Appropriate | | | | | | positive controls and/or | | | | | | negative controls were | | | | | | used for all stains, | | | | | | including | | | | | | immunohistochemical | | | | | | stains, special stains, | | | | | | and in situ | | | | | | hybridization, and these | | | | | | reacted appropriately. | | | | + + + + + + + + | Specimen | + + | Slide-Block | + + + + + + + | Performing | Address | City/State/Zipcode | Phone Number | | Organization | | | | + + + + + | [facility] | [address] | [place] [address] | | | PATHOLOGY | [address] | | | + + + + + documented in this encounter Visit Diagnoses + + | Diagnosis | + + | Gastric adenocarcinoma (HCC) - Primary Malignant neoplasm of stomach, unspecified | | site | + + documented in this encounter"
--- OUTSIDE RECORDS SUMMARY | ~2019-09-12 | XMS | Encounter Summary ---
Demographics + + + | Address | [address] | | | [place] [address] | + + + | Home Phone [...] + | Matthew Ramirez | CHRIS | [address] | | | | | [place] | | | | | [address] | | + + + + + | Nella Haque | ECON | Unknown | | + + + + + Care Team Providers + +------+ + | Care Recreation Program Specialist Name | Role | Phone | [...] | | | | ma (HCC) | [place], | | | | | | Procedures | [place] | | | | | | CT ABDOMEN | [address] | | | | | | AND PELVIS W | Phone: | | | | | | IV CONTRAST | [phone] | | | | | | | Fax: | | | | | | | [phone] | | + +--------+ + + + [...] | | | | ma (HCC) | [place], | | | | | | Procedures | [place] | | | | | | [place] | [address] | | | | | | CONTRAST | Phone: | | | | | | | [phone] | | | | | | | Fax: | | | | | | | [phone] | | + +--------+ + + + + Encounter Details +--------+ + + + + | Date | Type | Department | Care Team | Description | +--------+ + + + + | 01/28/ | [facility] | Surgical Oncology | Cristel Galicia MD | Gastric | | 2019 | | at [facility] [address] | [address] | adenocarcinoma (HCC) | | | | Ave Mail Code: | [place], [place] | (Primary Dx) | | | | [place] [facility] | [address] | | | | | and Healing, | [phone] | | | | | [address] | | | | | | [place], [place] | | | | | | [address] | | | | | | [phone] | | | +--------+ + + + [...]
--- OUTSIDE RECORDS SUMMARY | ~2019-09-12 | XMS | Encounter Summary ---
Demographics + + + | Address | [address] | | | [place] [address] | + + + | Home Phone | | + + + | Preferred Language | Unknown | + + + | Marital Status | | + + + | Quaker Affiliation | Unknown | + + + | Race | Unknown | + + + | Ethnic Group | Unknown | + + + Author + + + | Author | [facility] | | | and Nenoana | + + + | Organization | [facility] | | | and [...] + | Matthew Ramirez | ECON | [address] | | | | | [place] | | | | | [address] | | + + + + + Care Team Providers + +------+ + | Care Manager Of Sales Name | Role | Phone | [...] + + | 12/18/ | Telephone | [facility] | Matthew Shukla MD | Sore Throat | | 2019 | | GASTROENTEROLOGY | [address] [facility] | | | | | [address] [facility] | [place], [place] | | | | | [address] [place], [place] | [address] | | | | | [address] | [phone] | | | | | [phone] | | | +--------+ + + + [...]
--- OUTSIDE RECORDS SUMMARY | ~2019-09-12 | XMS | Encounter Summary ---
Demographics + + + | Address | [address] | | | [place] [address] | + + + | Home Phone [...] Author | [facility] | | | and Nenoana | + + + | Organization | [facility] | | [...] + | Matthew Ramirez | ECON | [address] | | | | | [place] | | | | | [address] | | + + + + + Care Team Providers + +------+ + | Care Evp Of Products & Co Founder Name | Role | Phone | + [...] + | 01/25/ | Telephone | [facility] | Arpan, | Family/caregiver | | 2019 | | MED [facility] | Luis Richards MD [address] | Concerns | | | | [facility] [address] | [facility] | | | | | [address] | [place] [address] | | | | | [place] [address] | [phone] | | | | | [phone] | | | +--------+ + + + [...]
--- OUTSIDE RECORDS SUMMARY | ~2019-09-12 | XMS | Encounter Summary ---
Demographics + + + | Address | [address] | | | [place] [address] | + + + | Home Phone | | + + + | Preferred Language | Unknown | + + + | Marital Status | | + + + | Temple Affiliation | NRP | + + + | Race | White | + + + | Ethnic Group | Not or | + + + Author + + + | Author | [facility] | + + + | Organization | [facility] | + + + | Address | Unknown | + + + | Phone | Unavailable | + + + Support + + + + + | Name | Relationship | Address | Phone | + + + + + | Matthew Ramirez | CHRIS | [address] | | | | | [place] | | | | | [address] | | + + + + + | Nella Haque | ECON | Unknown | | + + + + + Care Team Providers + +------+ + | Care Electric Power Machine Operator Name | Role | Phone [...] | | | | CONSULT TO | [place], | and [facility] | | | | | HEMATOLOGY / | [place] | [address] | | | | | ONCOLOGY | [address] | Ave | | | | | PRACTICE | Phone: | [place], [place] | | | | | | [phone] | [address] | | | | | | Fax: | Phone: | | | | | | [phone] | [phone] | | | | | | | Fax: | | | | | | | [phone] | + +---------+ + + + + [...] to | | | | [facility] | [facility] [place] | multiple sites, | | | | for Health and | [address] | unspecified | | | | Healing [address] | [phone] | laterality (HCC) | | | | Ave [place], [place] | | (Primary Dx) | | | | [address] | | | | | | [phone] | | | +--------+---------+ + + + [...] due to this pain. She lives in [place] with her , whom she cares for [...] adenocarcinoma -saw Dr. Antony of oncology at [place], discussed getting EUS for further evaluati on [...] 300 mg by mouth three times daily. Xkjfedbshwo-Dohkdzysb-Smh C-Mn (GLUCOSAMINE CHONDROITIN MAXSTR) 500-400 mg Oral [...] the evening. triamcinolone 55 mcg Nasal Aerosol, [place], Instill 2 Sprays into each nostril once [...] file Gets together: Not on file Attends holiness service: Not on file Active member of club or organization: Not on file Attends meetings of clubs or organizations: Not on file Relationship status: Not on file Other Topics Concern Not on file Social History Narrative Lives with partner in [facility]- 34yrs. Son in [place]. 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 Now traveling [facility]. Family History Problem Relation Cancer Mother [...] Diagnosis 1. Multiple specimens A to F (-[id number]; 01/13/19): A. Stomach, antrum at great curvature, [...] Bonifacio Resendez MD Pathologist Pathology, [facility] My electronic signature indicates that I [...] Ramona Taylor MD Hematology/Oncology Fellow PGY-5 Pager [phone] Associated attestation - Rodriguez Bower MD - [...] contact their office Rodriguez Bower MD, MS ID#[id number] Addressing Machine Operatorschool office assistant Division of Hematology and Medical Oncology [facility] Pager#[phone] documented in this encounter Plan of Treatment Not on filedocumented as of this encounter Visit Diagnoses + + | Diagnosis | + + | Breast cancer metastasized to multiple sites, unspecified laterality (HCC) - Primary | + + documented in this encounter"
--- OUTSIDE RECORDS SUMMARY | ~2019-09-12 | XMS | Encounter Summary ---
Demographics + + + | Address | [address] | | | [place] [address] | + + + | Home Phone [...] + | Matthew Ramirez | CHRIS | [address] | | | | | [place] | | | | | [address] | | + + + + + | Nella Haque | ECON | Unknown | | + + + + + Care Team Providers + +------+ + | Care Bevel Operator Name | Role | Phone | [...] | | | Ave Mail Code: | [place], [place] | | | | | [facility] | [address] | | | | | and [place], | [phone] | | | | | [address] | | | | | | [place], [place] | | | | | | [address] | | | | | | [phone] | | | +--------+ + + + [...]
--- OUTSIDE RECORDS SUMMARY | ~2019-09-12 | XMS | Encounter Summary ---
Demographics + + + | Address | [address] | | | [place] [address] | + + + | Home Phone [...] | Author | [facility] | | | and Nenoana | + + + | Organization | [facility] | [...] + | Matthew Ramirez | ECON | [address] | | | | | [place] | | | | | [address] | | + + + + + Care Team Providers + +------+ + | Care Traveling Freight Agent Name | Role | Phone | [...] + + | 12/24/ | Telephone | [facility] | Matthew Shukla MD | Results | | 2019 | | GASTROENTEROLOGY | [address] [facility] | | | | | [address] [facility] | [place], [place] | | | | | [address] [place], [place] | [address] | | | | | [address] | [phone] | | | | | [phone] | | | +--------+ + + + [...]
--- OUTSIDE RECORDS SUMMARY | ~2019-09-12 | XMS | Encounter Summary ---
Demographics + + + | Address | [address] | | | [place] [address] | + + + | Home Phone | | + + + | Preferred Language | Unknown | + + + | Marital Status | | + + + | Adventism Affiliation | Unknown | + + + | Race | Unknown | + + + | Ethnic Group | Unknown | + + + Author + + + | Author | [facility] | | | and Nenoana | + + + | Organization | [facility] | | | and Nenoana [...] + | Matthew Ramirez | CHRIS | [address] | | | | | [place] | | | | | [address] | | + + + + + Care Team Providers + +------+ + | Care Crane Service Technician Name | Role | Phone | + +------+ + PCP | Unavailable | + +------+ + Encounter Details +--------+ + + + + | Date | Type | Department | Care Team | Description | +--------+ + + + + | 03/28/ | Hospital | [facility] | | | | 1996 | Encounter | [facility] LAB[facility]ORY | | | | | | [address] | | | | | | [place] | | | | | | [address] | | | | | | [phone] | | | +--------+ + + + [...]
--- OUTSIDE RECORDS SUMMARY | ~2019-09-12 | XMS | Encounter Summary ---
Demographics + + + | Address | [address] | | | [place] [address] | + + + | Home Phone | | + + + | Preferred Language | Unknown | + + + | Marital Status | | + + + | Druze Affiliation | NRP | + + + [...] + | Matthew Ramirez | CHRIS | [address] | | | | | [place] | | | | | [address] | | + + + + + | Nella Haque | ECON | Unknown | | + + + + + Care Team Providers + +------+ + | Care Superior Court Justice Name | Role | Phone | + [...] | | sphincter | MD Gillian | [address] | | | | | deficiency | [address] | [place] | | | | | (ISD) | Neal Parker | [address] | | | | | Urinary | Rd | floor | | | | | stress | [place], [place] | [place], [place] | | | | | incontinence | [address] | [address] | | | | | Procedures | Phone: | Phone: | | | | | REQUEST TO | [phone] | [phone] | | | | | SURGERY | Fax: | Fax: | | | | | PURCHASING ENGINEER | [phone] | [phone] | | | | | ID | | | | | | | CYSTOURETHRO | | | | | | | SCOPY ID | | | | | | | [...] evaluation | | 2010 | Visit | [facility] | MD Gillian [address] | (Primary Dx); | | | | [address] | Urinary incontinence | | | | [address] | [place], [place] | | | | | [place], [facility] floor | [address] | | | | | [place], [place] | [phone] | | | | | [address] | | | | | | [phone] | | | +--------+---------+ + + + [...] MD - 10/25/2010 10:59 AM PDTDirections to [facility] in [facility] Exit the Lobby of the [facility] and turn right to take elevator 2 to the 9th floor of the [facility]. Follow signs directing you to the [place] [facility]. The PMC is located on the 4th floor of the [facility] ([facility]) just next to the exit for the tram. To return to the [facility] or to any of the facilities located on [facility], you will need a tram pass. These are available at no charge to patients with scheduled appointme nts and to those people accompanying them. For a tram pass, ask the organic extractions technician in the lob by of the [facility] or the person who checks you in for your [facility] appointment. Electronically minnie d by [...] 300 mg by mouth three times daily. Ietpdaslrld-Ewlskxvyh-Qsh C-Mn (GLUCOSAMINE CHONDROITIN MAXSTR) 500-400 mg Oral [...] the evening. triamcinolone 55 mcg Nasal Aerosol, [place] Instill 2 Sprays into each nostril once [...] Ramirez Number of Children: 3 Occupational History [employer] Social History Main Topics Smoking status: Never Smoker Smokeless tobacco: Never Used Alcohol Use: Yes 0-3/day- wine Drug Use: No Sexually Active: No partner not able Social History Narrative Lives with partner in [facility]- 34yrs. Son in [place]. 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 Review of Systems: Per HPI. All other [...] view image for the detailed interpretation from [facility] results. | CARDIOLOGY | + + + + + + + + | Performing | Address | City/State/Zipcode | Phone Number | | Organization | | | | + + + + + | [facility] | [address] | [place], [place] | | | CARDIOLOGY | [address] | [address] | | + + + + + [...] DEPARTMENT OF | [address] | [place] [address] | | | PATHOLOGY | [address] [...] + + + + + | [facility] | [address] | [place] [address] | | | PATHOLOGY | [address] | | | + + + + + documented in this encounter Visit Diagnoses + + | Diagnosis | + + | Pre-op evaluation - Primary Preoperative examination, unspecified | + + | Urinary incontinence Unspecified urinary incontinence | + + documented in this encounter
--- OUTSIDE RECORDS SUMMARY | ~2019-09-12 | XMS | Encounter Summary ---
Demographics + + + | Address | [address] | | | [place] [address] | + + + | Home Phone | | + + + | Preferred Language | Unknown | + + + | Marital Status | | + + + | Buddhism Affiliation | NRP | + + + | Race | White | + + + | Ethnic Group | Not or | + + + Author + + + | Author | [facility] | + + + | Organization | [facility] | + + + | Address | Unknown | + + + | Phone | Unavailable | + + + Support + + + + + | Name | Relationship | Address | Phone | + + + + + | Matthew Ramirez | CHRIS | [address] | | | | | [place] | | | | | [address] | | + + + + + | Nella Haque | ECON | Unknown | | + + + + + Care Team Providers + +------+ + | Care Box Toe Cementer Name | Role | Phone | + [...] of bladder | | 2010 | | [facility] | MD Gillian [address] | (surgery 10/26/10, | | | | [address] | [facility] | urogyn) | | | | [address] | [place], [place] | | | | | [place], [address] [place] [address] | [address] | | | | | [place], [place] | [phone] | | | | | [address] | | | | | | [phone] | | | +--------+ + + + [...] | | | [place] | [address] | [address] | | + + + + + documented in this encounter Visit Diagnoses + + | Diagnosis | + + | UTI (urinary tract infection) - Primary Urinary tract infection, site not specified | + + documented in this encounter"
--- OUTSIDE RECORDS SUMMARY | ~2019-09-12 | XMS | Encounter Summary ---
Demographics + + + | Address | [address] | | | [place] [address] | + + + | Home Phone [...] + | Matthew Ramirez | CHRIS | [address] | | | | | [place] | | | | | [address] | | + + + + + | Nella Mitchellox Beverley ECON | Unknown | | + + + + + Care Team Providers + +------+ + | Care Seed Technician Name | Role | Phone | + +------+ + | Long Copeland MD | PCP | | + +------+ + Encounter Details +--------+ + + + + | Date | Type | Department | Care Team | Description | +--------+ + + + + | 01/28/ | Sales Coach | Surgical Oncology | Cristel Galicia MD | Gastric | | 2019 | | at [facility] [address] | [address] | adenocarcinoma (HCC) | | | | Ave Mail Code: | [place], [place] | (Primary Dx) | | | | [facility] | [address] | | | | | and Healing, | [phone] | | | | | Building [address] | | | | | | [place], [place] | | | | | | [address] | | | | | | [phone] | | | +--------+ + + + [...] Electronically | | Pathologic | to F [id number]; | | DEPARTMENT | signed by Bonifacio [...] testing. | | | | | | Mary Moss has reviewed | | | | [...] PathologistPathology, | | | | | | [facility] | | | | | | University[facility] [...] [facility] | | | Received | Institution: [place] | | DEPARTMENT | | | | [facility] | | OF | | | | [place], [place] | | PATHOLOGY | | | | [id number] Accession | | | | | | Number: | | | | | | [id number] | | | | | | Collection [...] + + + + | [facility] | [address] | [place] [address] | | | PATHOLOGY | [address] | | | + + + + + documented in this encounter Visit Diagnoses + + | Diagnosis | + + | Gastric adenocarcinoma (HCC) - Primary Malignant neoplasm of stomach, unspecified | | site | + + documented in this encounter"
--- OUTSIDE RECORDS SUMMARY | ~2019-09-12 | XMS | Encounter Summary ---
Demographics + + + | Address | [address] | | | [place] [address] | + + + | Home Phone [...] Author | [facility] | | | and Nenoana | + + + | Organization | [facility] | | | and [...] + | Matthew Ramirez | ECON | [address] | | | | | [place] | | | | | [address] | | + + + + + Care Team Providers + +------+ + | Care Quantitative Software Engineer Name | Role | Phone [...] | | Procedures | [address] | [place] [address] | | | | | office visit | [place] | Phone: | | | | | | [place] [address] | [phone] | | | | | | Phone: | Fax: | | | | | | [phone] | [phone] | | | | | | Fax: | | | | | | | [phone] | | +--------+--------+ + + + + Encounter Details +--------+---------+ + + + | Date | Type | Department | Care Team | Description | +--------+---------+ + + + | 12/14/ | Office | [facility] | Matthew Shukla MD | Chronic abdominal | | 2019 | Visit | GASTROENTEROLOGY | [address] | pain (Primary Dx); | | | | [address] 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 Encouraged [...]
--- OUTSIDE RECORDS SUMMARY | ~2019-09-12 | XMS | Encounter Summary ---
Demographics + + + | Address | [address] | | | [place] [address] | + + + | Home Phone [...] | Author | [facility] | | | and Nenoana | + + + | Organization | [facility] | | | and [...] + | Matthew Ramirez | ECON | [address] | | | | | [place] | | | | | [address] | | + + + + + Care Team Providers + +------+ + | Care Artificial Marble Worker Name | Role | Phone | [...] | | | [address] | [place] [address] | | | | | [place] [address] | | | | | | [phone] | | | +--------+ + + + [...]
--- OUTSIDE RECORDS SUMMARY | ~2019-09-12 | XMS | Encounter Summary ---
Demographics + + + | Address | [address] | | | [place] [address] | + + + | Home Phone [...] | Author | [facility] | | | and Nenoana | + + + | Organization | [facility] | | | and [...] + | Matthew Ramirez | CHRIS | [address] | | | | | [place] | | | | | [address] | | + + + + + Care Team Providers + +------+ + | Care Rn Occupational Health Name | Role | Phone | + +------+ + PCP | Unavailable | + +------+ + Encounter Details +--------+ + + + + | Date | Type | Department | Care Team | Description | +--------+ + + + + | 09/06/ | Hospital | [facility] | | | | 2004 | Encounter | MED CTR XRAY [address] | | | | | | [address] | | | | | | [place] [address] | | | | | | [phone] | | | +--------+ + + + [...]
--- OUTSIDE RECORDS SUMMARY | ~2019-09-12 | XMS | Encounter Summary ---
Demographics + + + | Address | [address] | | | [place] [address] | + + + | Home Phone [...] + + | Author | [facility] | | | and Nenoana | + + + | Organization | [facility] | | [...] + | Matthew Ramirez | ECON | [address] | | | | | [place] | | | | | [address] | | + + + + + Care Team Providers + +------+ + | Care Huc Name | Role | Phone | + [...] | | | [address] | [place] [address] | | | | | [place] [address] | | | | | | [phone] | | | +--------+ + + + [...]
--- OUTSIDE RECORDS SUMMARY | ~2019-09-12 | XMS | Encounter Summary ---
Demographics + + + | Address | [address] | | | [place] [address] | + + + | Home Phone [...] + | Matthew Ramirez | CHRIS | [address] | | | | | [place] | | | | | [address] | | + + + + + | Nella Haque | ECON | Unknown | | + + + + + Care Team Providers + +------+ + | Care General Farm Hand Name | Role | Phone | + +------+ + | Long Copeland MD | PCP | | + +------+ + Reason for Visit + + + | Reason | Comments | + + + | Follow-up visit | | + + + | Telephone follow-up | | + + + Encounter Details +--------+---------+ + + + | Date | Type | Department | Care Team | Description | +--------+---------+ + + + | 07/28/ | Office | [facility] | Rodriguez Bower MD | Metastatic breast | | 2020 | Visit | Clinics at S | [address] | cancer (HCC) | | | | [facility] | [place], [place] | (Primary Dx) | | | | for Health and | [address] | | | | | Healing [address] | [phone] | | | | | [place], [place] | | | | | | [address] | | | | | | [phone] | | | +--------+---------+ + + + [...] documented as of this encounter Progress Notes Rodriguez Bower MD - 07/29/2019 1:35 PM PDT [facility] CL[facility]IC FOLLOW UP VISIT ONCOLOGIC HISTORY: 12/2018: Underwent EGD for persistent LUQ pain, with 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 Antony of oncology at [place], discussed getting EUS for further evaluati on [...] consistent w ith breast cancer (weakly ER+) 03/2019: started tamoxifen 06/2019: emergent GI surgery for obstruction (adhesion, metastatic carcinoma) 07/29/2019: switch to Letrozole HPI: (Encounter was done as a telephone encounter secondary to the COVID- pandemic) I called the patient today to follow up, she agreed to do this by phone, daughter also pres ent. She has not been doing well, has required emergency GI surgery due to adhesions which h elped with bowel movements, but she still has quite a bit of pain. She unfortunately cannot take much opiates as those can worsen the obstruction. Daughter on the phone reports her mom is in significant pain that is interfering with her daily activities. She lives in [place] with her , whom she cares for due to his dementia. Her daught er lives a few miles away. She manages her own IADLs and remains relatively active, gardenin g when weather is nice and caring for her home in the winter. Review of Systems: As noted above or [...] cervical cancer, no chemo/radiation TUBAL LIGATION 1975 Family History Problem Relation Cancer Mother multiple myeloma Heart Disease Mother CHF Cancer Father multiple myeloma Cancer Sister breast Cancer Brother throat, neck Physical Exam: Last Vitals: There were no vitals taken for this visit. ECO Physical exam not performed secondary to encounter being done via telephone. Data: CBC with diff last 72 hours [...] Diagnosis 1. Multiple specimens A to F (-[id number]; 01/13/19): A. Stomach, antrum at great curvature, [...] Pathology Resident Bonifacio Resendez MD Pathologist Pathology, [facility] My electronic signature indicates that I have personally reviewed all diagnostic slides, the gross and/or microscopic portion of this report and formulated the final diagno sis. Imaging: ASSESSMENT/PLAN Ms. Ashly Ramirez is a 78 y.o. F with metastatic lobular breast carcinoma who presents f or follow up 1. Metastatic Lobular Cancer: - ECOG PS 2 - PET scan with no evidence of progression however may be underestimating burden of disease as patient has required multiple admissions (and surgery) to release adhesions likely relat ed to the breast cancer. She also is in significant pain that is not well managed currently - reviewed that we can consider switching to letrozole from tamoxifen and see if that can h ave added efficacy to help with reducing risk of obstruction. She was hesitant about AI ther apy at our first visit due to hx of joint pains, fibromyalgias, but is open to it now - plan: -->stop tamoxifen -->start letrozole -->will communicate with Dr. Antony -->restaging scans in 3-4 months 2. Pain: - likely related to adhesions/GI surgeries - will make some recommendations to try and avoid significant opioid use, and will connect with her PCP to manage moving forward. I spent 30 minutes with the patient over the phone reviewing all of the issues noted above. Rodriguez Bower MD, MS ID#[id number] [employer] Stewardassociate principal Division of Hematology and Medical Oncology [facility] [place] Pager#[phone] documented in this enco unter Plan of Treatment Not on filedocumented as of this encounter Visit Diagnoses + + | Diagnosis | + + | Metastatic breast cancer (HCC) - Primary | + + documented in this encounter"
--- OUTSIDE RECORDS SUMMARY | ~2019-09-12 | XMS | Encounter Summary ---
Demographics + + + | Address | [address] | | | [place] [address] | + + + | Home Phone [...] + + | Author | [facility] | | | and Nenoana | + + + | Organization | [facility] | | | [...] + | Matthew Ramirez | CHRIS | [address] | | | | | [place] | | | | | [address] | | + + + + + Care Team Providers + +------+ + | Care Smocking Machine Operator Name | Role | Phone | + +------+ + PCP | Unavailable | + +------+ + Encounter Details +--------+ + + + + | Date | Type | Department | Care Team | Description | +--------+ + + + + | 12/08/ | Hospital | [facility] | [place], | | | 2009 | Encounter | MED CTR GENERIC OP | Katerin Xavier MD | | | | | CONV DEPT [address] | | | | | | [place], | | | | | | [place] [address] | | | | | | [phone] | | | +--------+ + + + [...]
--- OUTSIDE RECORDS SUMMARY | ~2019-09-12 | XMS | Encounter Summary ---
Demographics + + + | Address | [address] | | | [place] [address] | + + + | Home Phone [...] + | Author | [facility] | | | and Nenoana | + + + | Organization | [facility] | | [...] + | Matthew Ramirez | ECON | [address] | | | | | [place] | | | | | [address] | | + + + + + Care Team Providers + +------+ + | Care Sales Associate Cashier Name | Role | Phone | [...] | | | | | | [facility] | | | | | [...] | | | [place], [place] | [place] [address] | | | | | [address] | [phone] | | | | | [phone] | | | +--------+ + + + [...]
--- OUTSIDE RECORDS SUMMARY | ~2019-09-12 | XMS | Encounter Summary ---
Demographics + + + | Address | [address] | | | [place] [address] | + + + | Home Phone [...] + + | Author | [facility] | + + + | Organization | [facility] | + + + | Address | Unknown | + + + | Phone | Unavailable | + + + Support + + + + + | Name | Relationship | Address | Phone | + + + + + | Matthew Ramirez | CHRIS | [address] | | | | | [place] | | | | | [address] | | + + + + + | Nella Haque | ECON | Unknown | | + + + + + Care Team Providers + +------+ + | Care Group Exercise Manager Name | Role | Phone | [...] Clinics at S | [address] [facility] | | | | | [facility] | [place], [place] | | | | | [facility] and | [address] | | | | | Healing [address] | [phone] | | | | | [address] [place], [place] | | | | | | [address] | | | | | | [phone] | | | +--------+--------+ + + + [...]
--- OUTSIDE RECORDS SUMMARY | ~2019-09-12 | XMS | Encounter Summary ---
Demographics + + + | Address | [address] | | | [place] [address] | + + + | Home Phone [...] + | Matthew Ramirez | CHRIS | [address] | | | | | [place] | | | | | [address] | | + + + + + | Nella Haque | ECON | Unknown | | + + + + + Care Team Providers + +------+ + | Care Pan Dumper Name | Role | Phone | + [...] Amador | (Letrozole) | | | | [facility] | [facility] | | | | | [facility] and | [place], [place] | | | | | Healing [address] | [address] | | | | | [place], [place] | | | | | | [address] | | | | | | [phone] | | | +--------+--------+ + + + [...]
--- OUTSIDE RECORDS SUMMARY | ~2019-09-12 | XMS | Encounter Summary ---
Demographics + + + | Address | [address] | | | [place] [address] | + + + | Home Phone [...] | Author | [facility] | | | and Nenoana | + + + | Organization | [facility] [...] + | Matthew Ramirez | ECON | [address] | | | | | [place] | | | | | [address] | | + + + + + Care Team Providers + +------+ + | Care Dress Draper Name | Role | Phone | + [...] | | | | [K31.9] | | [address] Phone: | | | | | Procedures | | [phone] | | | | | [place] | | Fax: | | | | | ESOPHAGOGAST | | [phone] | | | | | RODUODENOSCO | | | | | | | PY TRANSORAL | | | | | | | DIAGNOSTIC | | | | | | | NM EDG US | | | | | [...] INTRA OP [address] | [place] [address] | | | | | Ave [place] | [phone] | | | | | [address] | | | | | | [phone] | | | +--------+ + + + [...] handed off to recovery nurse. VSS and [place] airway | | | 2 | | [...] 01/13/19 1323 by | | nicolas | [id number] catheter system; | Jacklyn Gore RN | [...]
--- OUTSIDE RECORDS SUMMARY | ~2019-09-12 | XMS | Encounter Summary ---
Demographics + + + | Address | [address] | | | [place] [address] | + + + | Home Phone | | + + + | Preferred Language | Unknown | + + + | Marital Status | | + + + | Worship Affiliation | Unknown | + + + | Race | Unknown | + + + | Ethnic Group | Unknown | + + + Author + + + | Author | [facility] | | | and Nenoana | + + + | Organization | [facility] | | | and [...] + | Matthew Ramirez | CHRIS | [address] | | | | | [place] | | | | | [address] | | + + + + + Care Team Providers + +------+ + | Care Service Advisor Name | Role | Phone | + +------+ + PCP | Unavailable | + +------+ + Encounter Details +--------+ + + + + | Date | Type | Department | Care Team | Description | +--------+ + + + + | 11/24/ | Hospital | [facility] | [place], | | | 2009 | Encounter | MED CTR GENERIC OP | Katerin Xavier MD | | | | | CONV DEPT [address] | | | | | | [place], | | | | | | [place] [address] | | | | | | [phone] | | | +--------+ + + + [...]
--- OUTSIDE RECORDS SUMMARY | ~2019-09-12 | XMS | Encounter Summary ---
Demographics + + + | Address | [address] | | | [place] [address] | + + + | Home Phone [...] + | Matthew Ramirez | CHRIS | [address] | | | | | [place] | | | | | [address] | | + + + + + | Nella Haque | ECON | Unknown | | + + + + + Care Team Providers + +------+ + | Care Flower Buncher Or Picker Name | Role | Phone | + +------+ + | Logn Copeland MD | PCP | | + [...] | | | | | | | [place] | | | | | | | [place] | | | | | | | [address], [address] | | | | | | | [facility] | | | | | | | [place], [place] | | | | | | | [address] | | | | | | | Phone: | | | | | | | [phone] | | | | | | | Fax: | | | | | | | [phone] | +--------+--------+ + + + + Encounter [...] | | | Pav[address] | [facility] | | | | | [address] | [place], [place] | | | | | Pavilion, 7th floor | [address] | | | | | [place], [place] | [phone] | | | | | [address] | | | | | | [phone] | | | +--------+ + + + [...]
--- OUTSIDE RECORDS SUMMARY | ~2019-09-12 | XMS | Encounter Summary ---
Demographics + + + | Address | [address] | | | [place] [address] | + + + | Home Phone [...] + | Matthew Ramirez | CHRIS | [address] | | | | | [place] | | | | | [address] | | + + + + + | Nella Haque | ECON | Unknown | | + + + + + Care Team Providers + +------+ + | Care Otr Flatbed [employer] Truck Driver Name | Role | Phone [...] Ave | (Tamoxifen) | | | | [facility] | [place], [place] | | | | | [facility] and | [address] | | | | | Healing [address] | [phone] | | | | | Ave [place], [place] | | | | | | [address] | | | | | | [phone] | | | +--------+--------+ + + + [...]
--- OUTSIDE RECORDS SUMMARY | ~2019-09-12 | XMS | Encounter Summary ---
Demographics + + + | Address | [address] | | | [place] [address] | + + + | Home Phone | | + + + | Preferred Language | Unknown | + + + | Marital Status | | + + + | Caodaism Affiliation | Unknown | + + + | Race | Unknown | + + + | Ethnic Group | Unknown | + + + Author + + + | Author | [facility] | | | and Nenoana | + + + | Organization | [facility] | | [...] + | Matthew Ramirez | ECON | [address] | | | | | [place] | | | | | [address] | | + + + + + Care Team Providers + +------+ + | Care Spot Man Name | Role | Phone | + +------+ + | Aslhy Rojo PA-C | PCP | | + [...] | | | | | | | SD REPAIR | | | | | | [...] Event | HOSPITAL OR INTRA OP | WOOD BORING MACHINE OPERATOR [address] | | | | | [address] | [place] [address] | | | | | [place], [place] | [phone] | | | | | [address] | | | | | | [phone] | | | +--------+ + + + + Anesthesia Record + + + + + | Procedure Name | Responsible | Anesthesia Start | Anesthesia Stop Time | | | Anesthesiologist | Time | | + + + + + | CORRECTION | Mayank Honeyctut, | 07/04/17 0912 | 07/04/17 1022 | | MARSHA 2, 3, 4 | WOOD BORING MACHINE OPERATOR | | | | (Left [...]
--- OUTSIDE RECORDS SUMMARY | ~2019-09-12 | XMS | Encounter Summary ---
Demographics + + + | Address | [address] | | | [place] [address] | + + + | Home Phone [...] [facility] | | | and Nenoana | + + + | Organization | [facility] | | | and Nenoana [...] + | Matthew Ramirez | ECON | [address] | | | | | [place] | | | | | [address] | | + + + + + Care Team Providers + +------+ + | Care Tank Wagon Operator Name | Role | Phone | [...] | | | unspecified | | [place] [address] | | | | | type | | Phone: | | | | | Chronic | | [phone] | | | | | abdominal | | Fax: | | | | | pain | | [phone] | | | | | Benzodiazepi | [...] | | | | | | MS | | | | | | | ESOPHAGOGAST | | | | | | | RODUODENOSCO | | | | | | | PY TRANSORAL | | | | | | | DIAGNOSTIC | | | | | | | MS EGD | | | | | | | TRANSORAL | | | | | | | BIOPSY | | | | | | | SINGLE/MULTI | | | | | | | PLE MS | | | | | | | COLONOSCOPY | | | | | | | FLX DX | | | | | | | W/COLLJ SPEC | | | | | | | WHEN PFRMD | | | | | | | MS | | | | | | | COLONOSCOPY | | | | | | | W/BIOPSY | | | | | | | SINGLE/MULTI | | | | | | | PLE MS | | | | | | | COLSC FLX | | | | | | | W/RMVL OF | | | | | | | TUMOR POLYP | | | | | | | LESION SNARE | | | | | | | TQ MS | | | | | | | [...] + + | 12/17/ | Hospital | [facility] | Matthew Shukla MD | Rectal bleeding; | | 2019 | Encounter | MED CTR MP INTRA OP | [address] | Diarrhea, | | | | [address] | [place] | unspecified type; | | | | [place] | [address] | Chronic abdominal | | | | [address] | [phone] | pain; Benzodiazepine | | | | [phone] | | dependence (HCC); | | | [...] | | | | | episodic use ([facility]) | | | | | | [...] 12/17/2018 | [facility] | | 3:06 PMMRN: [id number] #: [id number] of : | | | 1938dmit Type: [...] | | | the anesthesiologist and the aviation electrical technician in the pre-procedure | | | [...] PMScope Out: 3:26:19 | | | PM [facility], [address] [place] [address] | | | [place] [address] | | | - Await pathology results. [...] |Scope Out: 3:26:19 PM | | | [facility], [address] [place] [address] | | | [address] | | + + -+ + +---------+ [...] 12/17/2018 | [facility] | | 3:04 PMMRN: [id number] #: [id number] of : | | | 9Admit Type: AmbulatoryAge: 78Room: Endo Room 2Gender: | | | FemaleNote Status: FinalizedAttending MD: Matthew Shukla , | | | MDProcedure: ColonoscopyIndications: Abdominal | | | pain in the left upper quadrant, Hematochezia, | | | Chronic diarrhea, Weight lossProviders: Matthew Rosales | | | MD Gayla, Rina Edouard RN, Conrado Kang, [facility], | | | Devon Murdock MD [...] the anesthesiologist and the | | | aviation electrical technician in the pre-procedure area in the [...] | | | evaluated using the BBPS ([place] Bowel Preparation Scale) with | | | [...] PMScope Out: | | | 3:55:04 PM [facility], [address] [facility], | | | [place] [address] | | | - Await pathology results. [...] |Scope Out: 3:55:04 PM | | | [facility], [address] [facility], [place] | | | [address] | | + + -+ + +---------+ + + | Performing | Address | City/State[facility] | Phone Number | | Organization [...] | COMMENT: A -- As part of [employer] Quality Improvement | | | Program, this portion of the case has been reviewed by another member | | | of our pathology staff with subspecialty training in gastrointestinal | | | pathology. Results called to Dr. Shukla office [facility]) 12/24/18 | | | 10:15 AM. Discussed [...] | and its performance characteristics determined by [employer] | | | It has not been cleared or approved by the U.S. Food and Drug | | | Administration. The FDA has determined that such clearance or | | | approval is not necessary. This test is used for clinical purposes. | | | It should not be regarded as investigational or for research. | | | [employer] is certified under the Clinical Laboratory | | | Improvement Amendments of 1988 (CLIA) as qualified to perform high | | | complexity clinical laboratory testing. PERFORMING LABORATORY: | | | The technical component was performed by [employer], [address] | | | [place] [address] (Disabilities Caregiver: Marilyn Dowell MD; | | | CLIA# [id number]). Professional interpretation was performed by | | | [employer], [address] | | | [address] [place] [address] (Disabilities Caregiver: Guevara Ernandez | | | ; CLIA# [id number]). ADDITIONAL NOTES: Immunohistochemical | | | and/or in situ hybridization studies were performed on this case with | | | the appropriate positive controls that react as expected. This test | | | was developed and its performance characteristics determined by | | | [employer] It has not been cleared or approved by the U.S. | | | Food and Drug Administration. The FDA has determined that such | | | clearance or approval is not necessary. This test is used for | | | clinical purposes. It should not be regarded as investigational or | | | for research. [employer] is certified under the Clinical | | | Laboratory Improvement Amendments of 1988 (CLIA) as qualified to | | | perform high complexity clinical laboratory testing. PERFORMING | | | LABORATORY: The technical component was performed by [facility] | | | [place], [address] [place] [address] (Disabilities Caregiver: | | | Marilyn Dowell MD; CLIA# [id number]). Professional interpretation was | | | performed by [employer], [address] [place] [address] | | | [place] [address] (Disabilities Caregiver: Darien Kapoor D.O.; CLIA#: | | | [id number]). REASON FOR ADDENDUM: To add results of [...] the FDA-approved HER-2 Pathway is performed at [facility] | | | [place], [place], on accession #[id number] from at the [...] the Vysis PathVysion kit was performed at [facility] | | | [place], [place]. The assay has not been validated [...] interpretation was | | | performed by [employer], [address] [place] [address] | | | [place] [address] (Disabilities Caregiver: Everardo HillOPeggy; [facility]#: | | | [id number]). Diagnostician: Guevara Ernandez MD Pathologist | | [...]
--- OUTSIDE RECORDS SUMMARY | ~2019-09-12 | XMS | Encounter Summary ---
Demographics + + + | Address | [address] | | | [place] [address] | + + + | Home Phone | | + + + | Preferred Language | Unknown | + + + | Marital Status | | + + + | Oriental Orthodox Affiliation | Unknown | + + + | Race | Unknown | + + + | Ethnic Group | Unknown | + + + Author + + + | Author | [facility] | | | and Nenoana | + + + | Organization | [facility] | | [...] + | Matthew Ramirez | ECON | [address] | | | | | [place] | | | | | [address] | | + + + + + Care Team Providers + +------+ + | Care Marble Setter Name | Role | Phone | [...] | | [address] | [place] [address] | | | | | [address] | | | | | | [phone] | | | +--------+ + + + [...]
--- OUTSIDE RECORDS SUMMARY | ~2019-09-12 | XMS | Encounter Summary ---
Demographics + + + | Address | [address] | | | [place] [address] | + + + | Home Phone [...] | Author | [facility] | | | and Nenoana | + + + | Organization | [facility] | | | and Nenoana [...] + | Matthew Ramirez | ECON | [address] | | | | | [place] | | | | | [address] | | + + + + + Care Team Providers + +------+ + | Care Commercial Sheet Metal Foreman Name | Role | Phone | + [...] | | | unspecified | | [place] [address] | | | | | type | | Phone: | | | | | Chronic | | [phone] | | | | | abdominal | | Fax: | | | | | pain | | [phone] | | | | | Benzodiazepi | [...] | | | | | | | [place] | | | | | | | ESOPHAGOGAST | | | | | | | RODUODENOSCO | | | | | | | PY TRANSORAL | | | | | | | DIAGNOSTIC | | | | | | | IL EGD | | | | | | | TRANSORAL | | | | | | | BIOPSY | | | | | | | SINGLE/MULTI | | | | | | | PLE IL | | | | | | | COLONOSCOPY | | | | | | | FLX DX | | | | | | | W/COLLJ SPEC | | | | | | | WHEN PFRMD | | | | | | | IL | | | | | | | COLONOSCOPY | | | | | | | W/BIOPSY | | | | | | | SINGLE/MULTI | | | | | | | PLE IL | | | | | | | COLSC FLX | | | | | | | W/RMVL OF | | | | | | | TUMOR POLYP | | | | | | | LESION SNARE | | | | | | | TQ IL | | | | | | | [...] + + | 12/17/ | Hospital | [facility] | Matthew Shukla MD | Rectal bleeding; | | 2019 | Encounter | MED CTR MP INTRA OP | [address] | Diarrhea, | | | | [address] | [place] | unspecified type; | | | | [place] | [address] | Chronic abdominal | | | | [address] | [phone] | pain; 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 [...] |Scope Out: 3:26:19 PM | | | [facility], [address] [place] [address] | | | [address] | | + + -+ + +---------+ [...] 12/17/2018 | [facility] | | 3:04 PMMRN: [id number] #: [id number] of : | | | 9Admit Type: AmbulatoryAge: 78Room: Endo Room 2Gender: | | | FemaleNote Status: FinalizedAttending MD: Matthew Shukla , | | | MDProcedure: ColonoscopyIndications: Abdominal | | | pain in the left upper quadrant, Hematochezia, | | | Chronic diarrhea, Weight lossProviders: Matthew Rosales | | | MD Gayla, Rina Edouard RN, Conrado Kang, [facility], | | | Devon Murdock MD (Anesthesia [...] the anesthesiologist and the | | | fresh foods technician in the pre-procedure area in the [...] | | | evaluated using the BBPS ([place] Bowel Preparation Scale) with | | | [...] PMScope Out: | | | 3:55:04 PM [facility], [address] [facility], | | | [place] [address] | | | - Await pathology results. [...] |Scope Out: 3:55:04 PM | | | [facility], [address] [facility], [place] | | | [address] | | + + -+ + +---------+ + + | Performing | Address | City/State/[facility] | Phone Number | | Organization [...] | COMMENT: A -- As part of [facility]' Quality Improvement | | | Program, this [...] | and its performance characteristics determined by [facility]. | | | It has not been cleared or approved by the U.S. Food and Drug | | | Administration. The FDA has determined that such clearance or | | | approval is not necessary. This test is used for clinical purposes. | | | It should not be regarded as investigational or for research. | | | [facility] is certified under the Clinical Laboratory | | | Improvement Amendments of 1988 (CLIA) as qualified to perform high | | | complexity clinical laboratory testing. PERFORMING LABORATORY: | | | The technical component was performed by [facility], [address] | | | [place] [address] (Rubber Goods Tester: Marilyn Dowell MD; | | | CLIA# [id number]). Professional interpretation was performed by | | | [facility], [address] | | | [address] [place] [address] (Rubber Goods Tester: Guevara Ernandez | | | ; CLIA# [id number]). ADDITIONAL NOTES: Immunohistochemical | | | and/or in situ hybridization studies were performed on this case with | | | the appropriate positive controls that react as expected. This test | | | was developed and its performance characteristics determined by | | | [facility]. It has not been cleared or approved by the U.S. | | | Food and Drug Administration. The FDA has determined that such | | | clearance or approval is not necessary. This test is used for | | | clinical purposes. It should not be regarded as investigational or | | | for research. [facility] is certified under the Clinical | | | Laboratory Improvement Amendments of 1988 (CLIA) as qualified to | | | perform high complexity clinical laboratory testing. PERFORMING | | | LABORATORY: The technical component was performed by [facility] | | | [facility], [address] [place] [address] (Rubber Goods Tester: | | | Marilyn Dowell MD; CLIA# [id number]). Professional interpretation was | | | performed by [facility], [address] [place] [address] | | | [place] [address] (Rubber Goods Tester: Darien Kapoor D.O.; CLIA#: | | | [id number]). REASON FOR ADDENDUM: To add results of [...] the FDA-approved HER-2 Pathway is performed at [facility] | | | [place], [place], on accession #[id number] from at the [...] the Vysis PathVysion kit was performed at [facility] | | | [place]. The assay has not been validated [...] interpretation was | | | performed by [facility], [address] [place] [address] | | | [place] [address] (Rubber Goods Tester: Everardo HillOPeggy; [facility]#: | | | [id number]). Diagnostician: Guevara Ernandez MD Pathologist | | [...] ONCE PRN, | | | Wheezing, Starting [facility] 12/17/18 at | | | 1346, For 1 dose, Pre-op | | + +---+ | | | + +---+ | albuterol-ipratropium 2.5-0.5 | | | mg/3 mL nebulizer solution 3 mL | | | 3 mL, Nebulization, ONCE PRN, | | | Wheezing, Shortness of Breath, | | | Starting [facility] 12/17/18 at 1615, For | | [...] glucose < 50, | | | Starting [facility] 12/17/18 at 1346, | | | [...]
--- OUTSIDE RECORDS SUMMARY | ~2019-09-12 | XMS | Encounter Summary ---
Demographics + + + | Address | [address] | | | [place] [address] | + + + | Home Phone [...] | Author | [facility] | | | and Nenoana | + + + | Organization | [facility] [...] + | Matthew Ramirez | ECON | [address] | | | | | [place] | | | | | [address] | | + + + + + Care Team Providers + +------+ + | Care Weaving Instructor Name | Role | Phone | [...] + | 01/15/ | Telephone | [facility] | Arpan, | Patient Concerns | | 2019 | | MED [facility] | Luis Richards MD [address] | | | | | [facility] CL[facility] [address] | [facility] | | | | | [address] | [place] [address] | | | | | [place] [address] | [phone] | | | | | [phone] | | | +--------+ + + + [...]
--- OUTSIDE RECORDS SUMMARY | ~2019-09-12 | XMS | Encounter Summary ---
Demographics + + + | Address | [address] | | | [place] [address] | + + + | Home Phone [...] + | Author | [facility] | | | and Nenoana | + + + | Organization | [facility] | | | and Nenoana [...] + | Matthew Ramirez | ECON | [address] | | | | | [place] | | | | | [address] | | + + + + + Care Team Providers + +------+ + | Care Cigar Maker Name | Role | Phone | [...] | | | [address] | [place] [address] | | | | | [place] [address] | | | | | | [phone] | | | +--------+ + + + [...]
--- OUTSIDE RECORDS SUMMARY | ~2019-09-12 | XMS | Encounter Summary ---
Demographics + + + | Address | [address] | | | [place] [address] | + + + | Home Phone [...] + + + | Author | [facility] | + + + | Organization | [facility] | + + + | Address | Unknown | + + + | Phone | Unavailable | + + + Support + + + + + | Name | Relationship | Address | Phone | + + + + + | Matthew Ramirez | CHRIS | [address] | | | | | [place] | | | | | [address] | | + + + + + | Nella Haque | ECON | Unknown | | + + + + + Care Team Providers + +------+ + | Care Operations Research Group Manager Name | Role | Phone | [...] | Clinics at | [address] [facility] | (tamoxifen) | | | | [facility] | [facility], | | | | | [facility] and | [place] [address] | | | | | Healing [address] | | | | | | [place], [place] | | | | | | [address] | | | | | | [phone] | | | +--------+ + + + [...]
--- OUTSIDE RECORDS SUMMARY | ~2019-09-12 | XMS | Encounter Summary ---
Demographics + + + | Address | [address] | | | [place] [address] | + + + | Home Phone [...] | [facility] | | | and Nenoana | + + + | Organization | [facility] | [...] + | Matthew Ramirez | ECON | [address] | | | | | [place] | | | | | [address] | | + + + + + Care Team Providers + +------+ + | Care Underwriting Intern Name | Role | Phone | [...] | | | unspecified | | [place] [address] | | | | | type | | Phone: | | | | | Chronic | | [phone] | | | | | abdominal | | Fax: | | | | | pain | | [phone] | | | | | Benzodiazepi | [...] | | | | | | MI | | | | | | | ESOPHAGOGAST | | | | | | | RODUODENOSCO | | | | | | | PY TRANSORAL | | | | | | | DIAGNOSTIC | | | | | | | MI EGD | | | | | | | TRANSORAL | | | | | | | BIOPSY | | | | | | | SINGLE/MULTI | | | | | | | PLE MI | | | | | | | COLONOSCOPY | | | | | | | FLX DX | | | | | | | W/COLLJ SPEC | | | | | | | WHEN PFRMD | | | | | | | MI | | | | | | | COLONOSCOPY | | | | | | | W/BIOPSY | | | | | | | SINGLE/MULTI | | | | | | | PLE MI | | | | | | | COLSC FLX | | | | | | | W/RMVL OF | | | | | | | TUMOR POLYP | | | | | | | LESION SNARE | | | | | | | TQ MI | | | | | | | [...] | | | | | [address] | [address] [facility] | | | | | [place] | [place] [address] | | | | | [address] | [phone] | | | | | [phone] | | | +--------+ + + + [...] 12/17/18 1622 by | | nicolas | jhzu-pvp-cufalb catheter system; | Gris Davis RN | [...]
--- OUTSIDE RECORDS SUMMARY | ~2019-09-12 | XMS | Encounter Summary ---
Demographics + + + | Address | [address] | | | [place] [address] | + + + | Home Phone | | + + + | Preferred Language | Unknown | + + + | Marital Status | | + + + | Cheondoism Affiliation | NRP | + + + | Race | White | + + + | Ethnic Group | Not or | + + + Author + + + | Author | [facility] | + + + | Organization | [facility] | + + + | Address | Unknown | + + + | Phone | Unavailable | + + + Support + + + + + | Name | Relationship | Address | Phone | + + + + + | Matthew Ramirez | CHRIS | [address] | | | | | [place] | | | | | [address] | | + + + + + | Nella Haque | ECON | Unknown | | + + + + + Care Team Providers + +------+ + | Care Master Certified Rv Technician Name | Role | Phone | [...] 2019 | | Clinics at | [address] [facility] | (tamoxifen) | | | | [facility] | [facility], | | | | | [facility] and | [place] [address] | | | | | Healing [address] | | | | | | [place], [place] | | | | | | [address] | | | | | | [phone] | | | +--------+ + + + [...]
--- OUTSIDE RECORDS SUMMARY | ~2019-09-12 | XMS | Encounter Summary ---
Demographics + + + | Address | [address] | | | [place] [address] | + + + | Home Phone [...] + | Matthew Ramirez | CHRIS | [address] | | | | | [place] | | | | | [address] | | + + + + + Care Team Providers + +------+ + | Care Clipper Machine Name | Role | Phone | + +------+ + PCP | Unavailable | + +------+ + Encounter Details +--------+ + + + + | Date | Type | Department | Care Team | Description | +--------+ + + + + | 07/24/ | Hospital | [facility] | | | | 1999 | Encounter | MED CTR XRAY [address] | | | | | | [address] | | | | | | [place] [address] | | | | | | [phone] | | | +--------+ + + + [...]
--- OUTSIDE RECORDS SUMMARY | ~2019-09-12 | XMS | Encounter Summary ---
Demographics + + + | Address | [address] | | | [place] [address] | + + + | Home Phone [...] | [facility] | | | and Nenoana | + + + | Organization | [facility] | | | and Neno[place] [...] + | Matthew Ramirez | ECON | [address] | | | | | [place] | | | | | [address] | | + + + + + Care Team Providers + +------+ + | Care Transfer Machine Operator Name | Role | Phone [...] | | | [address] [place] | [place] [address] | | | | | [place] [address] | | | | | | [phone] | | | +--------+ + + + [...]
--- OUTSIDE RECORDS SUMMARY | ~2019-09-12 | XMS | Encounter Summary ---
Demographics + + + | Address | [address] | | | [place] [address] | + + + | Home Phone | | + + + | Preferred Language | Unknown | + + + | Marital Status | | + + + | Anabaptism Affiliation | NRP | + + + [...] + | Matthew Ramirez | CHRIS | [address] | | | | | [place] | | | | | [address] | | + + + + + | Nella Haque | ECON | Unknown | | + + + + + Care Team Providers + +------+ + | Care Machine Woodworking Sander Name | Role | Phone | [...] | | | | CONSULT TO | ALHAMBRA, | and [facility] | | | | | HEMATOLOGY / | [place] | [address] | | | | | ONCOLOGY | [address] | Ave | | | | | PRACTICE | Phone: | [place], [place] | | | | | | [phone] | [address] | | | | | | Fax: | Phone: | | | | | | [phone] | [phone] | | | | | | | Fax: | | | | | | | [phone] | + +---------+ + + + + [...] | metastasized to | | | | [facility] | [facility] [place] | multiple sites, | | | | for Health and | [address] | unspecified | | | | Healing [address] | [phone] | laterality (HCC) | | | | [address] [place], [place] | | (Primary Dx) | | | | [address] | | | | | | [phone] | | | +--------+---------+ + + + [...] due to this pain. She lives in [place] with her , whom she cares for [...] adenocarcinoma -saw Dr. Antony of oncology at [place], discussed getting EUS for further evaluati on [...] 300 mg by mouth three times daily. Hiwskbxlnhn-Rsddsahkl-Zdm C-Mn (GLUCOSAMINE CHONDROITIN MAXSTR) 500-400 mg Oral [...] the evening. triamcinolone 55 mcg Nasal Aerosol, [place], Instill 2 Sprays into each nostril once [...] file Gets together: Not on file Attends cheondoism service: Not on file Active member of club or organization: Not on file Attends meetings of clubs or organizations: Not on file Relationship status: Not on file Other Topics Concern Not on file Social History Narrative Lives with partner in [facility]- 34yrs. Son in [place]. 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 Now traveling [facility]. Family History Problem Relation Cancer Mother multiple [...] Diagnosis 1. Multiple specimens A to F [id number]; 01/13/19): A. Stomach, antrum at great curvature, [...] Pathology Resident Bonifacio Resendez MD Pathologist Pathology, [facility] My electronic signature indicates that [...] Ramona Taylor MD Hematology/Oncology Fellow PGY-5 Pager [phone] Associated attestation - Rodriguez Bower MD - [...] contact their office Rodriguez Bower MD, MS ID#[id number] Tar Heater Operatordebt and budget counselor Division of Hematology and Medical Oncology [facility] Pager#[phone] documented in this encounter Plan of Treatment Not on filedocumented as of this encounter Visit Diagnoses + + | Diagnosis | + + | Breast cancer metastasized to multiple sites, unspecified laterality (HCC) - Primary | + + documented in this encounter"
--- OUTSIDE RECORDS SUMMARY | ~2019-09-12 | XMS | Encounter Summary ---
Demographics + + + | Address | [address] | | | [place] [address] | + + + | Home Phone [...] Author | [facility] | | | and [place]enoana | + + + | Organization | [facility] | | | [...] + | Matthew Ramirez | ECON | [address] | | | | | [place] | | | | | [address] | | + + + + + [...] | | | | | [place] REPAIR OF | | | | | [...] | | | [place], [place] | [place] [address] | | | | | [address] | [phone] | | | | | [phone] | | | +--------+ + + + [...]
--- OUTSIDE RECORDS SUMMARY | ~2019-09-12 | XMS | Encounter Summary ---
Demographics + + + | Address | [address] | | | [place] [address] | + + + | Home Phone | | + + + | Preferred Language | Unknown | + + + | Marital Status | | + + + | Zoroastrian Affiliation | Unknown | + + + | Race | Unknown | + + + | Ethnic Group | Unknown | + + + Author + + + | Author | [facility] | | | and Nenoana | + + + | Organization | [facility] | | [...] + | Matthew Ramirez | ECON | [address] | | | | | [place] | | | | | [address] | | + + + + + Care Team Providers + +------+ + | Care Core Shaper Name | Role | Phone | + [...] + + | 12/18/ | Telephone | [facility] | Matthew Shukla MD | Sore Throat | | 2019 | | GASTROENTEROLOGY | [address] [facility] | | | | | [address] [facility] | [place], [place] | | | | | [address] [place], [place] | [address] | | | | | [address] | [phone] | | | | | [phone] | | | +--------+ + + + [...]
--- OUTSIDE RECORDS SUMMARY | ~2019-09-12 | XMS | Encounter Summary ---
Demographics + + + | Address | [address] | | | [place] [address] | + + + | Home Phone [...] Author | [facility] | | | and Nenoana | + + + | Organization | [facility] | | | and Neno[place] [...] + | Matthew Ramirez | CHRIS | [address] | | | | | [place] | | | | | [address] | | + + + + + Care Team Providers + +------+ + | Care Syrup Mixer Helper Name | Role | Phone | + +------+ + PCP | Unavailable | + +------+ + Encounter Details +--------+ + + + + | Date | Type | Department | Care Team | Description | +--------+ + + + + | 03/12/ | [facility] | | | [facility] - | Encounter | MED CTR OP REHAB | | | | | | [address] | | | | 04/17/ | | [place] [address] | | | | 2005 | | [phone] | | | +--------+ + + + [...]
--- OUTSIDE RECORDS SUMMARY | ~2019-09-12 | XMS | Encounter Summary ---
Demographics + + + | Address | [address] | | | [place] [address] | + + + | Home Phone [...] Author | [facility] | | | and Neno[place] | + + + | Organization | [facility] | | [...] + | Matthew Ramirez | CHRIS | [address] | | | | | [place] | | | | | [address] | | + + + + + Care Team Providers + +------+ + | Care Car Body Inspector Name | Role | Phone | + +------+ + PCP | Unavailable | + +------+ + Encounter Details +--------+ + + + + | Date | Type | Department | Care Team | Description | +--------+ + + + + | 06/15/ | Hospital | [facility] | | | | 2004 | Encounter | MED CTR XRAY [address] | | | | | | [address] | | | | | | [place] [address] | | | | | | [phone] | | | +--------+ + + + [...]
--- OUTSIDE RECORDS SUMMARY | ~2019-09-12 | XMS | Encounter Summary ---
Demographics + + + | Address | [address] | | | [place] [address] | + + + | Home Phone [...] | Author | [facility] | | | and Neno[place] | + + + | Organization | [facility] | | | and [place]eno[place] [...] + | Matthew Gomez | ECON | [address] | | | | | [place] | | | | | [address] | | + + + + + Care Team Providers + +------+ + | Care Senior Qa Tester Name | Role | Phone | [...] | | | | [K31.9] | | [address] Phone: | | | | | Procedures | | [phone] | | | | | [place] | | Fax: | | | | | ESOPHAGOGAST | | [phone] | | | | | RODUODENOSCO | | | | | | | PY TRANSORAL | | | | | | | DIAGNOSTIC | | | | | | | [place] EDG US | | | | | [...] | | | [address] | [address] | | | | | [address] | | | | | | [phone] | | | +--------+---------+ + + + [...] | [facility] | | ASHLY GOMEZ | [place] | | : 1940 AGE: 78 years SEX: Female | [facility] | | | LABORATORY | | Acct: [id number] Location: | [facility] | | [facility] MEDICAL PROCEDURE UNIT [place]; [facility] | | | MEDICAL PROCEDURE UNIT [place] | | | Case #: [id number] Ordering: | | | SUKUMAR STEVENSON MD Client: [facility] | | | [facility] Copy To: | | | [...] fragments. | | | Mild inactive chronic gastritis.[facility]/SK 01/14/19 01:36 pmVerified | | | by: ANNABELLE FULLER MDVerify Date: 01/20/2019 09:40 [facility] | | | [facility] [address] | | | SURGICAL PATHOLOGY FINAL REPORTCollected: [...] controls stain appropriately.As a part of our manager quality systems | | | policy, this case has [...] and their performance characteristics determined by [facility]. This test is used for clinical | | | purposes. It should not be regarded as investigational or for | | | research. [facility] is certified under the Clinical | | | Laboratory Improvement Amendments of 1988 (CLIA) as qualified to | | | perform high complexity clinical laboratory testing. | | + + + + + + + + | Performing | Address | City/State/[facility] | Phone Number | | Organization | | | | + + + + + | [facility] | [address] [place] [address]. | [place] [address] | | | [facility] | | | | | LABORATORY [facility] | | | | + + + + + EUS Upper (01/13/2019 11:39 AM PDT) + + | Specimen | + + | | + + + + + | Narrative | Performed At | + + + | [facility] | [place] [place] | | [facility] | PROVATION | | CenterGI | | | Patient Name: Ashly Gomez Procedure | | | Date: 01/13/2019 11:39 AMMRN: [id number] | | | of : 1940 | [...] Dr. SanReferring: | | | MATTHEW SAN, [facility]OSPITALedicines: Monitored | | | Anesthesia CareComplications: [...] AMNumber | | | of Addenda: 0 [facility] - | | | Endoscopy Services | | | | | |SUKUMAR STEVENSON MD | | |01/13/2019 1:07:25 PM | | |This report has been signed electronically. | | | | | |Note Initiated On: 01/13/2019 11:39 AM | | |Number of Addenda: 0 | | | | | | [facility] | | [...] | TRACEMASTER | | Duration:172 msP Horizontal [place]:28 degP Front [place]:60 degQ Onset:512 | | | msQRSD Interval:136 msQT Interval:448 msQTcB:477 msQTcF:467 msQRS | | | Horizontal [place]:150 degQRS [place]:-35 degI-40 Horizontal [place]:34 degI-40 | | | Front [place]:74 degT-40 Horizontal [place]:151 degT-40 Front [place]:-77 degT | | | Horizontal [place]:8 degT Wave [place]:51 degS-T Horizontal [place]:21 degS-T | | | Front [place]:83 degSeverity:- ABNORMAL ECG -INTERP:SINUS | | | RHYTHMINTERP:VENTRICULAR PREMATURE COMPLEXINTERP:RBBB AND | | | LAFBINTERP:LEFT VENTRICULAR HYPERTROPHYElectronically signed by: | | | [facility] 01-18-2019 07:24:33 | | |QTcF:467 ms | | |QRS Horizontal [place]:150 deg | | |QRS [place]:-35 deg | | |I-40 Horizontal [place]:34 deg | | |I-40 Front [place]:74 deg | | |T-40 Horizontal [place]:151 deg | | |T-40 Front [place]:-77 deg | | |T Horizontal [place]:8 deg | | |T Wave [place]:51 deg | | |S-T Horizontal [place]:21 deg | | |S-T Front [place]:83 deg | | |Severity:- ABNORMAL ECG - [...] + + | [facility]AC[facility]ASTER | [address] | [place] [address] | [phone] | + + + + + POC Glucose (01/13/2019 10:06 AM PDT) + + + + + + | Component | Value | Ref Range | Performed | Pathologist | | | | | At | Signature | + + + + + + | Glucose, | 111 (H)Comment: | 65 - 99 mg/dL | [facility] | | | POC | Performed by [facility] [address] | | SACRED | | | | [address] [place] | | HEART | | | | [address] | | MEDICAL | | | | [...] + + | [facility] | [address] | [place] [address] | | | [facility] | | | | | LABORATORY CERNER [...] scheduled: AC, NPO, Daytime | | | 6806-1489 Use NIGHT DOSE for | | | doses scheduled: HS, 3AM, | | | Nighttime 0428-1236 If the BG is | | | [...]
--- OUTSIDE RECORDS SUMMARY | ~2019-09-12 | XMS | Encounter Summary ---
Demographics + + + | Address | [address] | | | [place] [address] | + + + | Home Phone [...] | [facility] | | | and [place] | + + + | Organization | [facility] | | | and [place]eno[place] [...] + | Matthew Ramirez | ECON | [address] | | | | | [place] | | | | | [address] | | + + + + + Care Team Providers + +------+ + | Care Body And Fender Worker Name | Role | Phone | [...] | Gastric | [address] | [place] | | | | | adenocarcino | [facility], | [place], [place] | | | | | ma (HCC) | [place] | [address] | | | | | Procedures | [address] | Phone: | | | | | PET CT Skull | Phone: | [phone] | | | | | Base To Mid | [phone] | Fax: | | | | | Thigh | Fax: | [phone] | | | | | | [phone] | | +--------+--------+ + + + + [...] | Gastric | [address] | [place] | | | | | adenocarcino | [place], | [place], [place] | | | | | ma (HCC) | [place] | [address] | | | | | Procedures | [address] | Phone: | | | | | PET CT Skull | Phone: | [phone] | | | | | Base To Mid | [phone] | Fax: | | | | | Thigh | Fax: | [phone] | | | | | | [phone] | | +--------+--------+ + + + + Encounter Details +--------+ + + + + | Date | Type | Department | Care Team | Description | +--------+ + + + + | 02/18/ | Hospital | [facility] | Cristel Galicia MD | Tumor; Gastric | | 2019 | Encounter | MED CTR PET SCAN | [address] | adenocarcinoma (HCC) | | | | [address] [place] | [place], [place] | | | | | [place] [address] | [address] | | | | | [phone] | [phone] | | | | | | | [...] the common bile duct. | | | Jdtu-bw-dibw and in the right aspect of L4. [...] | |dilatation of the common bile duct. Ubey-tp-kcdf and in the right aspect of L4. [...] | | of the common bile duct. Redu-bl-juwv and in the right aspect of L4.IMPRESSION: [...] | |dilatation of the common bile duct. Jdne-kz-xnmm and in the right aspect of L4. [...]
--- OUTSIDE RECORDS SUMMARY | ~2019-09-12 | XMS | Encounter Summary ---
Demographics + + + | Address | [address] | | | [place] [address] | + + + | Home Phone [...] Author | [facility] | | | and [place]eno[place] | + + + | Organization | [facility] | | | and Nenoana [...] + | Matthew Ramirez | ECON | [address] | | | | | [place] | | | | | [address] | | + + + + + Care Team Providers + +------+ + | Care Formal Wear Rental Clerk Name | Role | Phone | [...] | | cancer | Luis Richards, | [place] | | | | | metastasized | MD [address] | [place], [place] | | | | | to multiple | [address] | [address] | | | | | sites, left | [place], | Phone: | | | | | (HCC) | [place] [address] | [phone] | | | | | Procedures | Phone: | Fax: | | | | | PET CT Skull | [phone] | [phone] | | | | | Base To Mid | Fax: | | | | | | Thigh | [phone] | | +--------+--------+ + + + + [...] POTTER | | | | | [address] [place] | [place] [address] | | | | | [place] [address] | [phone] | | | | | [phone] | | | +--------+ + + + [...]
--- OUTSIDE RECORDS SUMMARY | ~2019-09-12 | XMS | Encounter Summary ---
Demographics + + + | Address | [address] | | | [place] [address] | + + + | Home Phone [...] + | Matthew Ramirez | CHRIS | [address] | | | | | [place] | | | | | [address] | | + + + + + | Nella Haque | ECON | Unknown | | + + + + + Care Team Providers + +------+ + | Care Converting Technician Name | Role | Phone | + +------+ + | Long Copeland MD | PCP | | + +------+ + Encounter Details +--------+ + + + + | Date | Type | Department | Care Team | Description | +--------+ + + + + | 08/22/ | Outside | UNKNOWN DEPARTMENT | Other, Faculty | | | 2019 | Records | [address] [facility] | [phone] | | | | | [address] | | | | | | [place], [place] | | | | | | [address] | | | +--------+ + + + [...]
--- OUTSIDE RECORDS SUMMARY | ~2019-09-12 | XMS | Encounter Summary ---
Demographics + + + | Address | [address] | | | [place] [address] | + + + | Home Phone [...] + | Matthew Ramirez | CHRIS | [address] | | | | | [place] | | | | | [address] | | + + + + + | Nella Garland | ECON | Unknown | | + + + + + Care Team Providers + +------+ + | Care Air Pollution Compliance Inspector Name | Role | Phone | [...] | | sphincter | MD Gillian | [address] | | | | | deficiency | [address] | [place] | | | | | (ISD) | [address] | [address] | | | | | Urinary | Rd | floor | | | | | stress | [facility] [place] | [place], [place] | | | | | incontinence | [address] | [address] | | | | | Procedures | Phone: | Phone: | | | | | REQUEST TO | [phone] | [phone] | | | | | SURGERY | Fax: | Fax: | | | | | COMMERCIAL ROOFER | [phone] | [phone] | | | | | [place] | | | | | | | [place] | | | | | | | [place] | | | | | | [...] | | | | | | | [address] | | | | | | | [address] | | | | | | | [address] [facility] | | | | | | | floor | | | | | | | [place], [place] | | | | | | | [address] | | | | | | | Phone: | | | | | | | [phone] | | | | | | | Fax: | | | | | | | [phone] | +--------+--------+ + + + + Encounter Details +--------+---------+ + + + | Date | Type | Department | Care Team | Description | +--------+---------+ + + + | 10/03/ | [facility] Avis Rios | 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 Sprague and agree with [facility] findings and plan as documented in [...] be found in the scanned documents in [facility]. They have also been ent ered into the [facility] database. PHYSICAL EXAM BP 160/90 | [...] see scanned report in Epic In summary: NURSING HOME 368cc with no DO; MUCP 10 cm [...] October 26 with preop October 25. TVT 14221 Patient seen and discussed with Dr. Rios. Christiana Cullen RN - 10/03/2010 11:26 AM PDTUrine dipstick ordered and pt voided 295 mL of urine. Pt prepped with betadine. 14 mohawk straight cath through pts external urethra for [...] | + +--------+ + + + | [place] CYSTOMETROGRAM | Routin | 11/01/2010 | Intrinsic | | | W/HELPER DRIVER&UP | e | 10:19 PM | sphincter deficiency | | | | | PDT | (ISD) Urinary | | | | | | stress incontinence | | + +--------+ + + + | [place] INTRAABDOMINAL | Routin | 11/01/2010 | Intrinsic | | | VOIDING PRESSURE | e | 10:19 PM | sphincter deficiency | | | STUDY,AP,GLOBAL | | PDT | (ISD) Urinary | | | | | | stress incontinence | | + +--------+ + + + | [place] | Routin | 11/01/2010 | Intrinsic | | | UROFLOWMETRY,COMPLEX | e | 10:19 PM | sphincter deficiency | | | ,GLOBAL | | PDT | (ISD) Urinary | | | | | | stress incontinence | | + +--------+ + + + | [place] CYSTOMETROGRAM, | Routin | 11/01/2010 | Intrinsic | | | COMPLEX, GLOBAL | e | 10:19 PM | sphincter deficiency | | | | | PDT | (ISD) Urinary | | | | | | stress incontinence | | + +--------+ + + + | [place] INTRAABDOMINAL | Routin | 11/01/2010 | Intrinsic [...] | + +--------+ + + + | [place] NURSE 2 | Routin | 10/03/2010 | [...] MARQU[place] | [address] | [place], [place] | | | [place] POINT OF CARE | [address] | [address] | | | TESTS | | | [...]
--- OUTSIDE RECORDS SUMMARY | ~2019-09-12 | XMS | Encounter Summary ---
Demographics + + + | Address | [address] | | | [place] [address] | + + + | Home Phone [...] + | Matthew Ramirez | CHRIS | [address] | | | | | [place] | | | | | [address] | | + + + + + | Nella Haque | ECON | Unknown | | + + + + + Care Team Providers + +------+ + | Care Internal Control Consultant Name | Role | Phone | [...] of bladder | | 2010 | | [facility] | MD Gillian [address] | (surgery 10/26/10, | | | | [address] | [facility] | urogyn) | | | | [address] | [place], [place] | | | | | [place], [address] [place] [address] | [address] | | | | | [place], [place] | [phone] | | | | | [address] | | | | | | [phone] | | | +--------+ + + + [...] | | | VALARIE | 120 | [address] | | + + + + + documented in this encounter Visit Diagnoses + + | Diagnosis | + + | UTI (urinary tract infection) - Primary Urinary tract infection, site not specified | + + documented in this encounter"
--- OUTSIDE RECORDS SUMMARY | ~2019-09-12 | XMS | Clinical Summary ---
Demographics + + + | Address | [address] | | | [place] [address] | + + + | Home Phone [...] + | Matthew Ramirez | ECON | [address] | | | | | [place] | | | | | [address] | | + + + + + | Nella Haque | ECON | Unknown | | + + + + + Care Team Providers + +------+ + | Care Commercial Field Inspector Name | Role | Phone | + +------+ + | Long Copeland MD | PCP | | + +------+ + Source Comments MEÑO is fully live on both [facility] and [facility] InPatient.[facility] Allergies + + + + + [...] | | | | e | | [place] | once daily. | | | | [...] | | | | | | | [address] | | + +--------+ +--------+ + +--------+ | MODA MEDICARE | MODA | xxxxxxxxx | 05/12/19 | [phone] | [address] | [address] | | SUPPLEMENT | MEDICA | | 19-Pre | 4 | [phone] | | | | RE | | sent | | [place], | | | | SUPPLE | | | | [place] [address] | | | | MENT | | [...] Person | Self | [birth year] | [address] | | | al/Rene | | [phone] | [phone] | [place] | | | amrik | | | 9 (Home) | [address] | + +--------+ +--------+ + + Advance [...]
--- OUTSIDE RECORDS SUMMARY | ~2019-09-12 | XMS | Encounter Summary ---
Demographics + + + | Address | [address] | | | [place] [address] | + + + | Home Phone [...] Author | [facility] | | | and Nenoana | + + + | Organization | [facility] | [...] + | Matthew Ramirez | ECON | [address] | | | | | [place] | | | | | [address] | | + + + + + Care Team Providers + +------+ + | Care Lock Plater Name | Role | Phone | + [...] | 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 | [address] | | | | | adenocarcino | [address] | [place], | | | | | ma (HCC) | [address] | [place] [address] | | | | | Procedures | [place], [place] | Phone: | | | | | CT Chest | [address] | [phone] | | | | | Abdomen | Phone: | Fax: | | | | | Pelvis w | [phone] | [phone] | | | | | Contrast | Fax: | | | | | | CHG CT | [phone] | | | | | | SCAN,ABDOMEN [...] | | ma (HCC) | [address] | [place] | | | | | | [place], [place] | [place], | | | | | | [address] | [place] [address] | | | | | | Phone: | Phone: | | | | | | [phone] | [phone] | | | | | | Fax: | Fax: | | | | | | [phone] | [phone] | +--------+ + + + + + Reason for Visit + + + | Reason | Comments | + + + | Results, Pathology | | + + + Encounter Details +--------+ + + + + | Date | Type | Department | Care Team | Description | +--------+ + + + + | 12/29/ | Telephone | [facility] | Matthew Shukla MD | Results, Pathology | | 2019 | | GASTROENTEROLOGY | [address] [facility] | | | | | [address] [facility] | [place], [place] | | | | | [address] [place], [place] | [address] | | | | | [address] | [phone] | | | | | [phone] | | | +--------+ + + + [...] +--------+ + + | AMB REFERRAL TO [facility] | Outpatient | Routin | Gastric | [...]
--- OUTSIDE RECORDS SUMMARY | ~2019-09-12 | XMS | Encounter Summary ---
Demographics + + + | Address | [address] | | | [place] [address] | + + + | Home Phone [...] + | Matthew Ramirez | CHRIS | [address] | | | | | [place] | | | | | [address] | | + + + + + | Nella Haque | ECON | Unknown | | + + + + + Care Team Providers + +------+ + | Care Range Feeder Name | Role | Phone | [...] Villalobos | Adjustment | | | | [facility] | [place], [place] | (Acetaminophen | | | | for Health and | [address] | adjustment ) | | | | Healing [address] | [phone] | | | | | [place], [place] | | | | | | [address] | | | | | | [phone] | | | +--------+ + + + [...]
--- OUTSIDE RECORDS SUMMARY | ~2019-09-12 | XMS | Encounter Summary ---
Demographics + + + | Address | [address] | | | [place] [address] | + + + | Home Phone [...] | Author | [facility] | | | and Nenoana | + + + | Organization | [facility] | [...] + | Matthew Ramirez | ECON | [address] | | | | | [place] | | | | | [address] | | + + + + + Care Team Providers + +------+ + | Care Custodial Engineer Name | Role | Phone | [...] [address] [place] | [address] [place], | | | | | [facility], [place] | [place] [address] | | | | | [address] | [phone] | | | | | [phone] | | | +--------+ + + + [...] Care Everywhere.Foot Surgery: Maurice pace Fifth Toe (Taiwanese)Foot Surgery: Flexible and Rigid Hammertoes (Taiwanese)Mallet, Hammer , and Claw Toes, Treating (Taiwanese)Mallet, Hammer, and Claw Toes, What Are (Taiwanese)document ed in this encounter Medications at Time [...]
--- OUTSIDE RECORDS SUMMARY | ~2019-09-12 | XMS | Encounter Summary ---
Demographics + + + | Address | [address] | | | [place] [address] | + + + | Home Phone [...] + | Matthew Ramirez | CHRIS | [address] | | | | | [place] | | | | | [address] | | + + + + + | Nella Lowery ECON | Unknown | | + + + + + Care Team Providers + +------+ + | Care Documentation Analyst Name | Role | Phone | [...] | | | Ave Mail Code: | [place], [place] | | | | | [facility] | [address] | | | | | and Healing, | [phone] | | | | | [address] | | | | | | [place], [place] | | | | | | [address] | | | | | | [phone] | | | +--------+ + + + [...]
--- OUTSIDE RECORDS SUMMARY | ~2019-09-12 | XMS | Encounter Summary ---
Demographics + + + | Address | [address] | | | [place] [address] | + + + | Home Phone [...] + | Matthew Ramirez | CHRIS | [address] | | | | | [place] | | | | | [address] | | + + + + + | Nella Haque | ECON | Unknown | | + + + + + Care Team Providers + +------+ + | Care Health Services Director Name | Role | Phone | [...] | | | | | Procedures | [address] | | | | | | PET CT SKULL | Phone: | | | | | | BASE TO | [phone] | | | | | | MID-THIGHS | Fax: | | | | | | | [phone] | | +--------+--------+ + + + + [...] | | | | [address] | [address] | | | | | | [place], | Phone: | | | | | | [place] [address] | [phone] | | | | | | Phone: | Fax: | | | | | | [phone] | [phone] | | | | | | Fax: | | | | | | | [phone] | | +--------+--------+ + + + + [...] | | | Ave Mail Code: | [place], [place] | (Primary Dx); Tumor | | | | [place] [facility] | [address] | | | | | and Healing, | [phone] | | | | | [address] | | | | | | [place], [place] | | | | | | [address] | | | | | | [phone] | | | +--------+---------+ + + + [...] obtain PET scan at local facility in [place]. Please contact Nelli Vaca, Nurse Coordinator for Dr. Cristel Galicia, with any questions at [phone]. We encourage all of our patients to sign up and use HumanAPI for communication . Please note: I am out of the office on Mondays and unable to monitor voicemail or email. If you need to get ahold of someone urgently, please call [phone]. documented in this encounter Progress Notes Cristel Galicia MD - 02/03/2019 9:00 AM PDTATTENDING PHYSICIAN STATEMENT AND SUMMARY This note has been dictated using Mopapp voice recognition software. I saw Ashly Ramirez [...] then contact the patient and a local [facility] oncologist with any treatment recommendations. RECOMMENDATIONS [...] have been addressed t o their satisfaction. Cristle Galicia MD, MPH division toll wire chief Division of Surgical Oncology [facility] [place], [place] Desmond Frank MD - 9:00 AM PDT 02/03/2019 Surgical Oncology Clinic New Patient Consultation--Gastric Cancer Referring Physician: Dr. Luis Antony Reason for consultation: Newly diagnosed gastric adenocarcinoma (This note is structured to facilitate communication among oncology providers) PLAN TODAY: 1. Return to clinic after discussion at tumor board. 2. Return to [facility] for EGD with biopsies for disease surveillance 3. Will need a PET/CT scan 4. Will present case and discuss in upcoming Multi-Disciplinary Tumor board and contact pat ient with recommendations. 5. Solid tumor Gene Trails 6. Follow up [facility] path review of outside records ONCOLOGIC HISTORY [...] gastric adeno carcinoma. She subsequently went to [place] and underwent and EUS with Dr. Stevenson [...] and hematochezia. 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 Currently, she is functionally good allowing [...] Ramirez case will be discussed at the [facility] Multidisciplinary Gastrointestinal Cancer Conference which includes representatives [...] individualized evelia tment. Desmond Voss MD R1 [facility] General Surgery documented in this enc ounter [...] | [facility] | | | TESTED | [id number] E1 labeled as | | DIAGNOSTIC | [...] | | | | | | is direct customer service representative of | | | | | | this tumor, we would | | | | | | welcome the opportunity | | | | | | to examine it. | | | | + + + + + + | DISCLAIMER | This test was developed | | [facility] | | | | and its performance | | DIAGNOSTIC | | | | characteristics | | | | | | determined by the [facility] | | LABORATORIE | | | | [facility] Diagnostic | | S | [...] | | | | | (CLIA). The [facility] | | | | | | Diagnostics | | | | | | Laboratories are fully | | | | | | licensed by the state of | | | | | | [place] under CLIA and | | | | | | are accredited by the | | | | | | [employer] [place] | | | | | | Pathologists (CAP). | | | | | | Facility Assistant: | | | | | | Rancho [...] + + | PINK[facility] | [address] | [place] [address] | | | DIAGNOSTIC | [address] [...]
--- OUTSIDE RECORDS SUMMARY | ~2019-09-12 | XMS | Encounter Summary ---
Demographics + + + | Address | [address] | | | [place] [address] | + + + | Home Phone | | + + + | Preferred Language | Unknown | + + + | Marital Status | | + + + | Latter-Day Affiliation | NRP | + + + | Race | White | + + + | Ethnic Group | Not or | + + + Author + + + | Author | [facility] | + + + | Organization | [facility] | + + + | Address | Unknown | + + + | Phone | Unavailable | + + + Support + + + + + | Name | Relationship | Address | Phone | + + + + + | Matthew Ramirez | CHRIS | [address] | | | | | [place] | | | | | [address] | | + + + + + | Nella Haque | ECON | Unknown | | + + + + + Care Team Providers + +------+ + | Care Peanut Picker Name | Role | Phone | [...] | | | | ma (HCC) | [place], | | | | | | Procedures | [place] | | | | | | CT ABDOMEN | [address] | | | | | | AND PELVIS W | Phone: | | | | | | IV CONTRAST | [phone] | | | | | | | Fax: | | | | | | | [phone] | | + +--------+ + + + [...] | | | | ma (HCC) | [place], | | | | | | Procedures | [place] | | | | | | CT ABDOMEN | [address] | | | | | | AND PELVIS W | Phone: | | | | | | IV CONTRAST | [phone] | | | | | | | Fax: | | | | | | | [phone] | | + +--------+ + + + [...] | | | [address] Mailcode: | [place], [place] | | | | | [address] | [address] | | | | | Health and Healing, | [phone] | | | | | [address] | | | | | | Floor [facility] [place] | | | | | | [address] | | | | | | [phone] | | | +--------+ + + + [...] nostril | | | | | | [place] | once daily. | | | | [...] (H) | 0.6 - 1.1 mg/dL | [facility], | | | POC | | [...] + + | DANISHA FARIAS | [address] | [place] [address] | | | OF CARE TESTS | [...]
--- OUTSIDE RECORDS SUMMARY | ~2019-09-12 | XMS | Encounter Summary ---
Demographics + + + | Address | [address] | | | [place] [address] | + + + | Home Phone | | + + + | Preferred Language | Unknown | + + + | Marital Status | | + + + | Gnosticist Affiliation | NRP | + + + [...] + | Matthew Ramirez | CHRIS | [address] | | | | | [place] | | | | | [address] | | + + + + + | Nella Haque | ECON | Unknown | | + + + + + Care Team Providers + +------+ + | Care Scheduling Coordinator Name | Role | Phone | [...] | | sphincter | MD Gillian | [address] | | | | | deficiency | [address] | [place] | | | | | (ISD) | [address] | [address] | | | | | Urinary | Rd | floor | | | | | stress | [place], [place] | [place], [place] | | | | | incontinence | [address] | [address] | | | | | Procedures | Phone: | Phone: | | | | | REQUEST TO | [phone] | [phone] | | | | | SURGERY | Fax: | Fax: | | | | | ROBOT OPERATOR | [phone] | [phone] | | | | | [place] | | | | | | | [place] | | | | | | | [place] | | | | | | [...] evaluation | | 2010 | Visit | [facility] | MD Gillian [address] | (Primary Dx); | | | | [address] | [address] | Urinary incontinence | | | | [address] | [place], [place] | | | | | [place], [facility] floor | [address] | | | | | [place], [place] | [phone] | | | | | [address] | | | | | | [phone] | | | +--------+---------+ + + + [...] MD - 10/25/2010 10:59 AM PDTDirections to [facility] Clinic in [facility] Exit the Lobby of the [facility] and turn right to take elevator 2 to the 9th floor of the [place] [facility]. Follow signs directing you to the [place] [facility]. The [facility] is located on the 4th floor of the [facility] and [facility] ([facility]) just next to the exit for the tram. To return to the [facility] or to any of the facilities located on [facility], you will need a tram pass. These are available at no charge to patients with scheduled appointme nts and to those people accompanying them. For a tram pass, ask the cashier receptionist in the lob by of the [facility] or the person who checks you in for your [facility] appointment. Electronically minnie d by Jackie Sprague [...] 300 mg by mouth three times daily. Pjxfqakdcnu-Lxnvivfrs-Csu C-Mn (GLUCOSAMINE CHONDROITIN MAXSTR) 500-400 mg Oral [...] the evening. triamcinolone 55 mcg Nasal Aerosol, [place] Instill 2 Sprays into each nostril once [...] Ramirez Number of Children: 3 Occupational History [employer] Social History Main Topics Smoking status: Never Smoker Smokeless tobacco: Never Used Alcohol Use: Yes 0-3/day- wine Drug Use: No Sexually Active: No partner not able Social History Narrative Lives with partner in [place]- 34yrs. Son in [place]. 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 Now traveling [facility]. Review of Systems: Per HPI. All other systems negative PHYSICAL EXAM: BP 140/90 | Pulse 86 | Ht 1.746 m (5' 8.74") | Wt 104.373 kg (230 lb 1.6 oz) | SpO2 99% | B CA 34.24 kg/(m^2) GENERAL: Healthy Appearing, No acute [...] view image for the detailed interpretation from [employer] results. | CARDIOLOGY | + + + + + + + + | Performing | Address | City/State/Zipcode | Phone Number | | Organization | | | | + + + + + | [facility] | [address] | [place], [place] | | | CARDIOLOGY | [address] | [address] | | + + + + + [...] DEPARTMENT OF | [address] | [place] [address] | | | PATHOLOGY | [address] [...] | + + + + + | [facility] | [address] | [place] [address] | | | PATHOLOGY | [address] | | | + + + + + documented in this encounter Visit Diagnoses + + | Diagnosis | + + | Pre-op evaluation - Primary Preoperative examination, unspecified | + + | Urinary incontinence Unspecified urinary incontinence | + + documented in this encounter
--- OUTSIDE RECORDS SUMMARY | ~2019-09-12 | XMS | Encounter Summary ---
Demographics + + + | Address | [address] | | | [place] [address] | + + + | Home Phone [...] + | Matthew Ramirez | CHRIS | [address] | | | | | [place] | | | | | [address] | | + + + + + | Nella Lowery ECON | Unknown | | + + + + + Care Team Providers + +------+ + | Care Court Bailiff Name | Role | Phone | + [...] [address] | | | | | at [facility] | [facility] | | | | | [address] | [place] [address] | | | | | [address] [facility] | | | | | | [place], 2nd floor | | | | | | [place], [place] | | | | | | [address] | | | | | | [phone] | | | +--------+ + + + [...] nostril | | | | | | [place] | once daily. | [...] view image for the detailed interpretation from [employer] results. | CARDIOLOGY | + + + + + + + + | Performing | Address | City/State/Zipcode | Phone Number | | Organization | | | | + + + + + | [facility] | [address] | [place], [place] | | | CARDIOLOGY | [address] | [address] | | + + + + + documented in this encounter Visit Diagnoses Not on filedocumented in this encounter
--- OUTSIDE RECORDS SUMMARY | ~2019-09-12 | XMS | Encounter Summary ---
Demographics + + + | Address | [address] | | | [place] [address] | + + + | Home Phone [...] Author | [facility] | | | and Nenoana | + + + | Organization | [facility] | | [...] + | Matthew Ramirez | ECON | [address] | | | | | [place] | | | | | [address] | | + + + + + Care Team Providers + +------+ + | Care Silver Designer Name | Role | Phone | [...] | | | unspecified | | [place] [address] | | | | | type | | Phone: | | | | | Chronic | | [phone] | | | | | abdominal | | Fax: | | | | | pain | | [phone] | | | | | Benzodiazepi | [...] | | | | | | | NH | | | | | | | ESOPHAGOGAST | | | | | | | RODUODENOSCO | | | | | | | PY TRANSORAL | | | | | | | DIAGNOSTIC | | | | | | | NH EGD | | | | | | | TRANSORAL | | | | | | | BIOPSY | | | | | | | SINGLE/MULTI | | | | | | | PLE NH | | | | | | | COLONOSCOPY | | | | | | | FLX DX | | | | | | | W/COLLJ SPEC | | | | | | | WHEN PFRMD | | | | | | | NH | | | | | | | COLONOSCOPY | | | | | | | W/BIOPSY | | | | | | | SINGLE/MULTI | | | | | | | PLE NH | | | | | | | COLSC FLX | | | | | | | W/RMVL OF | | | | | | | TUMOR POLYP | | | | | | | LESION SNARE | | | | | | | TQ NH | | | | | | [...] + + | 12/17/ | Hospital | [facility] | Matthew Shukla MD | Rectal bleeding; | | 2019 | Encounter | MED CTR [facility] INTRA OP | [address] | Diarrhea, | | | | [address] | [place] | unspecified type; | | | | [place] | [address] | Chronic abdominal | | | | [address] | [phone] | pain; Benzodiazepine | | | | 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 [...] |Scope Out: 3:26:19 PM | | | [facility], [address] [place] [address] | | | [address] | | + + -+ + +---------+ [...] 12/17/2018 | PROVATION | | 3:04 PMMRN: [id number] #: [id number] of : | | | 9Admit Type: AmbulatoryAge: 78Room: Endo Room 2Gender: | | | FemaleNote Status: FinalizedAttending MD: Matthew Shukla , | | | MDProcedure: ColonoscopyIndications: Abdominal | | | pain in the left upper quadrant, Hematochezia, | | | Chronic diarrhea, Weight lossProviders: Matthew Rosales | | | MD Gayla, Rina Edouard RN, Conrado Kang, [facility], | | | Devon Murdock MD [...] the anesthesiologist and the | | | health technician in the pre-procedure area in the [...] | | | evaluated using the BBPS ([place] Bowel Preparation Scale) with | | | [...] PMScope Out: | | | 3:55:04 PM [facility], [address] [facility], | | | [place] [address] | | | - Await pathology results. [...] |Scope Out: 3:55:04 PM | | | [facility], [address] [facility], [place] | | | [address] | | + + -+ + +---------+ + + | Performing | Address | City/State/[facility]code | Phone Number | | [...] | COMMENT: A -- As part of [facility]' Quality Improvement | | | Program, this portion of the case has been reviewed by another member | | | of our pathology staff with subspecialty training in gastrointestinal | | | pathology. Results called to Dr. Shukla office [facility] [place]) 12/24/18 | | | 10:15 AM. Discussed [...] | and its performance characteristics determined by [facility]. | | | It has not been cleared or approved by the U.S. Food and Drug | | | Administration. The FDA has determined that such clearance or | | | approval is not necessary. This test is used for clinical purposes. | | | It should not be regarded as investigational or for research. | | | [facility] is certified under the Clinical Laboratory | | | Improvement Amendments of 1988 (CLIA) as qualified to perform high | | | complexity clinical laboratory testing. PERFORMING LABORATORY: | | | The technical component was performed by [facility], [address] | | | [place] [address] (Executive Producer: Marilyn Dowell MD; | | | CLIA# [id number]). Professional interpretation was performed by | | | [facility], [address] | | | [address] [place] [address] (Executive Producer: Guevara Ernandez | | | ; CLIA# [id number]). ADDITIONAL NOTES: Immunohistochemical | | | and/or in situ hybridization studies were performed on this case with | | | the appropriate positive controls that react as expected. This test | | | was developed and its performance characteristics determined by | | | [facility]. It has not been cleared or approved by the U.S. | | | Food and Drug Administration. The FDA has determined that such | | | clearance or approval is not necessary. This test is used for | | | clinical purposes. It should not be regarded as investigational or | | | for research. [facility] is certified under the Clinical | | | Laboratory Improvement Amendments of 1988 (CLIA) as qualified to | | | perform high complexity clinical laboratory testing. PERFORMING | | | LABORATORY: The technical component was performed by [facility] | | | [employer], [address] [place] [address] (Executive Producer: | | | Marilyn Dowell MD; CLIA# [id number]). Professional interpretation was | | | performed by [facility], [address] [place] [address] | | | [place] [address] (Executive Producer: Darien Kapoor D.O.; CLIA#: | | | [id number]). REASON FOR ADDENDUM: To add results of [...] the FDA-approved HER-2 Pathway is performed at [facility] | | | [place], on accession #[id number] from at the [...] the Vysis PathVysion kit was performed at [facility] | | | [place] The assay has not been validated [...] interpretation was | | | performed by [facility], [address] [place] [address] | | | [place] [address] (Executive Producer: Everardo HillOPeggy; [facility]#: | | | [id number]). Diagnostician: Guevara Ernandez MD Pathologist | | [...] ONCE PRN, | | | Wheezing, Starting [facility] 12/17/18 at | | | 1346, For 1 dose, Pre-op | | + +---+ | | | + +---+ | albuterol-ipratropium 2.5-0.5 | | | mg/3 mL nebulizer solution 3 mL | | | 3 mL, Nebulization, ONCE PRN, | | | Wheezing, Shortness of Breath, | | | Starting [facility] 12/17/18 at 1615, For | [...] glucose < 50, | | | Starting [facility] 12/17/18 at 1346, | | | [...]
--- OUTSIDE RECORDS SUMMARY | ~2019-09-12 | XMS | Encounter Summary ---
Demographics + + + | Address | [address] | | | [place] [address] | + + + | Home Phone [...] + | Author | [facility] | | | and Nenoana | + + + | Organization | [facility] | [...] + | Matthew Ramirez | ECON | [address] | | | | | [place] | | | | | [address] | | + + + + + Care Team Providers + +------+ + | Care Risk Lead Name | Role | Phone | + [...] | | | unspecified | | [place] [address] | | | | | type | | Phone: | | | | | Chronic | | [phone] | | | | | abdominal | | Fax: | | | | | pain | | [phone] | | | | | Benzodiazepi | [...] | | | | | | | MD | | | | | | | ESOPHAGOGAST | | | | | | | RODUODENOSCO | | | | | | | PY TRANSORAL | | | | | | | DIAGNOSTIC | | | | | | | MD EGD | | | | | | | TRANSORAL | | | | | | | BIOPSY | | | | | | | SINGLE/MULTI | | | | | | | PLE MD | | | | | | | COLONOSCOPY | | | | | | | FLX DX | | | | | | | W/COLLJ SPEC | | | | | | | WHEN PFRMD | | | | | | | MD | | | | | | | COLONOSCOPY | | | | | | | W/BIOPSY | | | | | | | SINGLE/MULTI | | | | | | | PLE MD | | | | | | | COLSC FLX | | | | | | | W/RMVL OF | | | | | | | TUMOR POLYP | | | | | | | LESION SNARE | | | | | | | TQ MD | | | | | | | [...] + + | 12/17/ | [facility] | [facility] | Matthew Shukla MD | EGD | | 2019 | | MED CTR MP INTRA OP | [address] | | | | | [address] | [place] | | | | | [place] | [address] | | | | | [address] | [phone] | | | | | [phone] | | | +--------+---------+ + + + [...] | | | | | episodic use ([facility]) | | | | | [...] 12/17/2018 | [facility]OVATION | | 3:06 PMMRN: [id number] #: [id number] of : | | | 1940dmit Type: [...] | | | the anesthesiologist and the construction services technician in the pre-procedure | | | [...] PMScope Out: 3:26:19 | | | PM [facility], [address] [facility] | | | [place] [address] | | | - Await pathology results. [...] |Scope Out: 3:26:19 PM | | | [facility], [address] [place], [place] | | | [address] | | + + -+ + +---------+ + + | Performing | Address | City/State/[facility] Centercode | Phone Number | | [...] 12/17/2018 | PROVATION | | 3:04 PMMRN: [id number] #: [id number] of : | | | 1940dmit Type: AmbulatoryAge: 78Room: Endo Room 2Gender: | | | FemaleNote Status: FinalizedAttending MD: Matthew Shukla , | | | MDProcedure: ColonoscopyIndications: Abdominal | | | pain in the left upper quadrant, Hematochezia, | | | Chronic diarrhea, Weight lossProviders: Matthew Rosales | | | MD Gayla, Rina Edouard RN, Conrado Kang [facility], | | | Devon Murdock [...] the anesthesiologist and the | | | construction services technician in the pre-procedure area in the [...] | | | evaluated using the BBPS ([place] Bowel Preparation Scale) with | | | [...] PMScope Out: | | | 3:55:[address] [facility], [address] [place] [address], | | | [place] [address] | | | - Await pathology results. [...] |Scope Out: 3:55:04 PM | | | [facility], [address] [facility], [place], [place] | | | [address] | | + + -+ + +---------+ [...] | COMMENT: A -- As part of [facility]' Quality Improvement | | | Program, this portion of the case has been reviewed by another member | | | of our pathology staff with subspecialty training in gastrointestinal | | | pathology. Results called to Dr. Shukla office [facility]) 12/24/18 | | | 10:15 AM. Discussed [...] | and its performance characteristics determined by [facility]. | | | It has not been cleared or approved by the U.S. Food and Drug | | | Administration. The FDA has determined that such clearance or | | | approval is not necessary. This test is used for clinical purposes. | | | It should not be regarded as investigational or for research. | | | [facility] is certified under the Clinical Laboratory | | | Improvement Amendments of 1988 (CLIA) as qualified to perform high | | | complexity clinical laboratory testing. PERFORMING LABORATORY: | | | The technical component was performed by [facility], [address] | | | [place] [address] (Cafeteria Aide: Marilyn Dowell MD; | | | CLIA# [id number]). Professional interpretation was performed by | | | [facility], [facility], [address] [place] [address]. | | | [address] [place] [address] (Cafeteria Aide: Guevara Ernandez | | | ; CLIA# [id number]). ADDITIONAL NOTES: Immunohistochemical | | | and/or in situ hybridization studies were performed on this case with | | | the appropriate positive controls that react as expected. This test | | | was developed and its performance characteristics determined by | | | [facility]. It has not been cleared or approved by the U.S. | | | Food and Drug Administration. The FDA has determined that such | | | clearance or approval is not necessary. This test is used for | | | clinical purposes. It should not be regarded as investigational or | | | for research. [facility] is certified under the Clinical | | | Laboratory Improvement Amendments of 1988 (CLIA) as qualified to | | | perform high complexity clinical laboratory testing. PERFORMING | | | LABORATORY: The technical component was performed by [facility] | | | [facility], [address] [place] [address] (Cafeteria Aide: | | | Marilyn Dowell MD; CLIA# [id number]). Professional interpretation was | | | performed by [facility], [address] [place] | | | [place] [address] (Cafeteria Aide: Darien Kapoor D.O.; CLIA#: | | | [id number]). REASON FOR ADDENDUM: To add results of [...] the FDA-approved HER-2 Pathway is performed at [facility] | | | [place], on accession #[id number] from at the [...] the Vysis PathVysion kit was performed at [facility] | | | [place]. The assay has not been validated [...] interpretation was | | | performed by [facility], [address] [facility] | | | [place] [address] (Cafeteria Aide: Darien Kapoor D.O.; CLIA#: | | | [id number]). Diagnostician: Guevara Ernandez MD Pathologist | | [...] [place] PATHOLOGY | | | | | INCDoctor kinetic | | | | + +---------+ + [...] PRN, | | | Wheezing, Starting [facility] 12/17/18 at | | | 1346, For 1 dose, Pre-op | | + +---+ | | | + +---+ | albuterol-ipratropium 2.5-0.5 | | | mg/3 mL nebulizer solution 3 mL | | | 3 mL, Nebulization, ONCE PRN, | | | Wheezing, Shortness of Breath, | | | Starting [facility] 12/17/18 at 1615, For | | | [...]
--- OUTSIDE RECORDS SUMMARY | ~2019-09-12 | XMS | Encounter Summary ---
Demographics + + + | Address | [address] | | | [place] [address] | + + + | Home Phone | | + + + | Preferred Language | Unknown | + + + | Marital Status | | + + + | Shinto Affiliation | Unknown | + + + | Race | Unknown | + + + | Ethnic Group | Unknown | + + + Author + + + | Author | [facility] | | | and Nenoana | + + + | Organization | [facility] | | [...] + | Matthew Ramirez | ECON | [address] | | | | | [place] | | | | | [address] | | + + + + + Care Team Providers + +------+ + | Care Predatory Hunter Name | Role | Phone | + [...] | | | | Gastric mass | [place], [place] | [place] | | | | | Procedures | [address] | [address] Phone: | | | | | Urgent- | Phone: | [phone] | | | | | EGD + EUS | [phone] | Fax: | | | | | NEXT WEEK | Fax: | [phone] | | | | | | [phone] | | +--------+ + + + + + Encounter Details +--------+ + + + + | Date | Type | Department | Care Team | Description | +--------+ + + + + | 01/06/ | Orders Only | [facility] | Matthew Shukla MD | Gastric | | 2019 | | GASTROENTEROLOGY | [address] | adenocarcinoma (HCC) | | | | [address] [facility] | [place], [place] | (Primary Dx) | | | | [address] [place] | [address] | | | | | [address] | [phone] | | | | | [phone] | | | +--------+ + + + [...] Shukla notified patient needed Urgent referral to [facility] for Eval Egd/EUS of gastric adenocarcinoma [...] Gastroenterology | | | | | | ([place]) | | | | | + + +--------+ + + documented as of this encounter Visit Diagnoses + + | Diagnosis | + + | Gastric adenocarcinoma (HCC) - Primary Malignant neoplasm of stomach, unspecified | | site | + + documented in this encounter"
--- OUTSIDE RECORDS SUMMARY | ~2019-09-12 | XMS | Encounter Summary ---
Demographics + + + | Address | [address] | | | [place] [address] | + + + | Home Phone [...] Author | [facility] | | | and Nenoana | + + + | Organization | [facility] [...] + | Matthew Ramirez | ECON | [address] | | | | | [place] | | | | | [address] | | + + + + + Care Team Providers + +------+ + | Care Alpine Patroller Name | Role | Phone | + [...] + + | 12/17/ | Telephone | [facility] | Matthew Shukla MD | Procedure | | 2019 | | GASTROENTEROLOGY | [address] [facility] | | | | | [address] [facility] | [place], [place] | | | | | [address] [place], [place] | [address] | | | | | [address] | [phone] | | | | | [phone] | | | +--------+ + + + [...]
--- OUTSIDE RECORDS SUMMARY | ~2019-09-12 | XMS | Encounter Summary ---
Demographics + + + | Address | [address] | | | [place] [address] | + + + | Home Phone | | + + + | Preferred Language | Unknown | + + + | Marital Status | | + + + | Adventism Affiliation | NRP | + + + [...] + | Matthew Ramirez | CHRIS | [address] | | | | | [place] | | | | | [address] | | + + + + + | Nella Haque | ECON | Unknown | | + + + + + Care Team Providers + +------+ + | Care Lacemaker Name | Role | Phone | + [...] | | | | | | | [facility] | | | | | | | [address] | | | | | | | [facility] | | | | | | | ([place]) | | | | | | | [place], | | | | | | | [place] [address] | | | | | | | Phone: | | | | | | | [phone] | | | | | | | Fax: | | | | | | | [phone] | +--------+--------+ + + + + Encounter Details +--------+ + + + + | Date | Type | Department | Care Team | Description | +--------+ + + + + | 10/26/ | Hospital | [facility] [address] | Avis Rios | | | 2010 | Encounter | [address] | MD Gillian [address] | | | | | [facility] | [address] | | | | | [facility] | [place], [place] | | | | | ([place] [facility]) | [address] | | | | | [place], [place] | [phone] | | | | | [address] | | | | | | [phone] | | | +--------+ + + + [...] Discharge Instructions Instructions Laura Mendes RN - 10/26/2010[facility] Transvaginal Suburethral Sling WHAT YOU SHOULD KNOW A transvaginal suburethral sling is surgery to treat stress incontinence (wc-FCW-siw-nasima) . The goal of surgery is to [...] TO REACH YOUR DOCTOR Friday call the [facility] at [phone] After hours, weekend and holidays call the [facility] at [phone]. Ask them to page your doctor. RETURN [...] nostril | | | | | | [place] | once daily. | | | | [...]
--- OUTSIDE RECORDS SUMMARY | ~2019-09-12 | XMS | Encounter Summary ---
Demographics + + + | Address | [address] | | | [place] [address] | + + + | Home Phone [...] | Author | [facility] | | | and Nenoana | + + + | Organization | [facility] | [...] + | Matthew Ramirez | ECON | [address] | | | | | [place] | | | | | [address] | | + + + + + Care Team Providers + +------+ + | Care Plate Hanger Name | Role | Phone | + [...] H/O neoplasm | | | | [place], [place] | | of uncertain | | | | [address] | | behavior of skin; | | | | [phone] | | Primary localized | | | [...] of this encounter Progress Notes Adia Rosario, MEDICAL OFFICE ASSISTANT - 01/01/2019 11:27 AM PDTCT Chest Abdomen Pelvis w Contrast on 08/06/19 19 at [facility] FINDINGS: BONES: No osteoblastic or osteolytic [...]
--- OUTSIDE RECORDS SUMMARY | ~2019-09-12 | XMS | Encounter Summary ---
Demographics + + + | Address | [address] | | | [place] [address] | + + + | Home Phone | | + + + | Preferred Language | Unknown | + + + | Marital Status | | + + + | Tenriism Affiliation | Unknown | + + + | Race | Unknown | + + + | Ethnic Group | Unknown | + + + Author + + + | Author | and [facility] | | | and Nenoana | + + + | Organization | [facility] [...] + | Matthew Ramirez | CHRIS | [address] | | | | | [place] | | | | | [address] | | + + + + + Care Team Providers + +------+ + | Care Computer Architect Name | Role | Phone | + +------+ + PCP | Unavailable | + +------+ + Encounter Details +--------+ + + + + | Date | Type | Department | Care Team | Description | +--------+ + + + + | 09/06/ | Hospital | [facility] | | | | 2004 | Encounter | MED CTR XRAY [address] | | | | | | [place] | | | | | | [place] [address] | | | | | | [phone] | | | +--------+ + + + [...]
--- OUTSIDE RECORDS SUMMARY | ~2019-09-12 | XMS | Encounter Summary ---
Demographics + + + | Address | [address] | | | [place] [address] | + + + | Home Phone [...] | Author | [facility] | | | and Nenoana | + + + | Organization | [facility] | [...] + | Matthew Ramirez | ECON | [address] | | | | | [place] | | | | | [address] | | + + + + + Care Team Providers + +------+ + | Care Instrument Lens Grinder Name | Role | Phone | + [...] + + | 12/24/ | Telephone | [facility] | Matthew Shukla MD | Results | | 2019 | | GASTROENTEROLOGY | [address] [facility] | | | | | [address] [facility] | [place], [place] | | | | | [address] [place], [place] | [address] | | | | | [address] | [phone] | | | | | [phone] | | | +--------+ + + + [...]
--- OUTSIDE RECORDS SUMMARY | ~2019-09-12 | XMS | Encounter Summary ---
Demographics + + + | Address | [address] | | | [place] [address] | + + + | Home Phone [...] | [facility] | | | and Nenoana | + + + | Organization | [facility] | | | and [...] + | Matthew Ramirez | ECON | [address] | | | | | [place] | | | | | [address] | | + + + + + Care Team Providers + +------+ + | Care Toll Test Desk Worker Name | Role | Phone | + +------+ + | Ashly Rojo PA-C | PCP | | + +------+ + Encounter Details +--------+ + + + + | Date | Type | Department | Care Team | Description | +--------+ + + + + | 01/05/ | Abstract | [facility] | Provider, | | | 2019 | | SURGERY [address] | MD [address] | | | | | [place], [place] | [place] | | | | | [address] | [place] [address] | | | | | [phone] | | | +--------+ + + + [...]
--- OUTSIDE RECORDS SUMMARY | ~2019-09-12 | XMS | Encounter Summary ---
Demographics + + + | Address | [address] | | | [place] [address] | + + + | Home Phone [...] Author | [facility] | | | and Nenoana | + + + | Organization | [facility] | | | [...] + | Matthew Gomez | ECON | [address] | | | | | [place] | | | | | [address] | | + + + + + Care Team Providers + +------+ + | Care Pickle Water Pump Operator Name | Role | Phone | [...] | | | | [K31.9] | | [address] Phone: | | | | | Procedures | | [phone] | | | | | [place] | | Fax: | | | | | ESOPHAGOGAST | | [phone] | | | | | RODUODENOSCO | | | | | | | PY TRANSORAL | | | | | | | DIAGNOSTIC | | | | | | | IN EDG US | | | | | [...] | | | [address] | [address] | | | | | [address] | | | | | | [phone] | | | +--------+---------+ + + + [...] | [facility] | | ASHLY GOMEZ | C[place] | | : 1940 AGE: 78 years SEX: Female | [facility] | | | LABORATORY | | Acct: [id number] Location: | [facility] | | [facility]; [facility] MEDICAL PROCEDURE UNIT STAR; [facility] | | | MEDICAL PROCEDURE UNIT STAR | | | Case #: [id number] Ordering: | | | SUKUMAR STEVENSON MD Client: [facility] | | | [facility] Copy To: | | | Printed: 01/20/2019 [...] fragments. | | | Mild inactive chronic gastritis.[facility]/SK 01/14/19 01:36 pmVerified | | | by: ANNABELLE FULLER MDVerify Date: 01/20/2019 09:40 [facility] | | | [facility] [address] | | | SURGICAL PATHOLOGY FINAL REPORTCollected: [...] controls stain appropriately.As a part of our personnel quality assurance auditor | | | policy, this case has [...] developed and their performance characteristics determined by [facility]. This test is used for clinical | | | purposes. It should not be regarded as investigational or for | | | research. [facility] is certified under the Clinical | | | Laboratory Improvement Amendments of 1988 (CLIA) as qualified to | | | perform high complexity clinical laboratory testing. | | + + + + + + + + | Performing | Address | City/State/[facility] | Phone Number | | Organization | | | | + + + + + | [facility] | [address] [place] [address]. | [place] [address] | | | [facility] | | | | | LABORATORY [place] | | | | + + + + + EUS Upper (01/13/2019 11:39 AM PDT) + + | Specimen | + + | | + + + + + | Narrative | Performed At | + + + | [facility] | [facility] | | [facility] | PROVATION | | CenterGI | | | Patient Name: Ashly Gomez Procedure | | | Date: 01/13/2019 11:39 AMMRN: [id number] | | | of : 1940 | [...] Dr. SanReferring: | | | MATTHEW [facility], [facility] HEALTHedicines: Monitored | | | Anesthesia CareComplications: No [...] AMNumber | | | of Addenda: 0 [facility] - | | | Endoscopy Services | | | | | |SUKUMAR STEVENSON MD | | |01/13/2019 1:07:25 PM | | |This report has been signed electronically. | | | | | |Note Initiated On: 01/13/2019 11:39 AM | | |Number of Addenda: 0 | | | | | | [facility] | | + + [...] | TRACEMASTER | | Duration:172 msP Horizontal [place]:28 degP Front [place]:60 degQ Onset:512 | | | msQRSD Interval:136 msQT Interval:448 msQTcB:477 msQTcF:467 msQRS | | | Horizontal [place]:150 degQRS [place]:-35 degI-40 Horizontal [place]:34 degI-40 | | | Front [place]:74 degT-40 Horizontal [place]:151 degT-40 Front [place]:-77 degT | | | Horizontal [place]:8 degT Wave [place]:51 degS-T Horizontal [place]:21 degS-T | | | Front [place]:83 degSeverity:- ABNORMAL ECG -INTERP:SINUS | | | RHYTHMINTERP:VENTRICULAR PREMATURE COMPLEXINTERP:RBBB AND | | | LAFBINTERP:LEFT VENTRICULAR HYPERTROPHYElectronically signed by: | | | ANDREAS MAXWELL 01-18-2019 07:24:33 | | |QTcF:467 ms | | |QRS Horizontal [place]:150 deg | | |QRS [place]:-35 deg | | |I-40 Horizontal [place]:34 deg | | |I-40 Front [place]:74 deg | | |T-40 Horizontal [place]:151 deg | | |T-40 Front [place]:-77 deg | | |T Horizontal [place]:8 deg | | |T Wave [place]:51 deg | | |S-T Horizontal [place]:21 deg | | |S-T Front [place]:83 deg | | |Severity:- ABNORMAL ECG - [...] + + | [facility]ACEMASTER | [address] | [place] [address] | [phone] | + + + + + POC Glucose (01/13/2019 10:06 AM PDT) + + + + + + | Component | Value | Ref Range | Performed | Pathologist | | | | | At | Signature | + + + + + + | Glucose, | 111 (H)Comment: | 65 - 99 mg/dL | [facility] | | | POC | Performed by [facility] [address] | | SACRED | | | | [address] [place], [place] | | HEART | | | | [address] | | MEDICAL | | | | [...] + + | [facility] | [address] | [place] [address] | | | [facility] | | | | | LABORATORY [...] scheduled: AC, NPO, Daytime | | | 3616-6641 Use NIGHT DOSE for | | | doses scheduled: HS, 3AM, | | | Nighttime 8581-0125 If the BG is | | | [...]
--- OUTSIDE RECORDS SUMMARY | ~2019-09-12 | XMS | Encounter Summary ---
Demographics + + + | Address | [address] | | | [place] [address] | + + + | Home Phone [...] Author | [facility] | | | and Nenoana | + + + | Organization | [facility] | | | and Nenoana [...] + | Matthew Ramirez | ECON | [address] | | | | | [place] | | | | | [address] | | + + + + + Care Team Providers + +------+ + | Care Verification Specialist Name | Role | Phone | [...] | | | | [K31.9] | | [address] Phone: | | | | | Procedures | | [phone] | | | | | [place] | | Fax: | | | | | ESOPHAGOGAST | | [phone] | | | | | RODUODENOSCO | | | | | | | PY TRANSORAL | | | | | | | DIAGNOSTIC | | | | | | | [place] EDG US | | | | | [...] INTRA OP [address] | [place] [address] | | | | | [place] | [phone] | | | | | [address] | | | | | | [phone] | | | +--------+ + + + [...] handed off to recovery nurse. VSS and venetie ira airway | | | 2 | | [...] 01/13/19 1323 by | | nicolas | [id number] catheter system; | Jacklyn Gore RN | [...]
--- OUTSIDE RECORDS SUMMARY | ~2019-09-12 | XMS | Encounter Summary ---
Demographics + + + | Address | [address] | | | [place] [address] | + + + | Home Phone [...] + | Author | [facility] | | | and Nenoana | + + + | Organization | [facility] | [...] + | Matthew Ramirez | ECON | [address] | | | | | [place] | | | | | [address] | | + + + + + Care Team Providers + +------+ + | Care Buckle Sewer Name | Role | Phone | [...] + + | 01/20/ | Telephone | [facility] | Matthew Shukla MD | Results, Pathology | | 2019 | | GASTROENTEROLOGY | [address] [facility] | | | | | [address] [facility] | [place], [place] | | | | | [address] [place], [place] | [address] | | | | | [address] | [phone] | | | | | [phone] | | | +--------+ + + + [...]
--- OUTSIDE RECORDS SUMMARY | ~2019-09-12 | XMS | Encounter Summary ---
Demographics + + + | Address | [address] | | | [place] [address] | + + + | Home Phone [...] + | Matthew Ramirez | CHRIS | [address] | | | | | [place] | | | | | [address] | | + + + + + | Nella Haque | ECON | Unknown | | + + + + + Care Team Providers + +------+ + | Care Chipper Operator Name | Role | Phone | [...] | Telephone | [facility] | Rdoriguez Bower MD | Care Coordination | | 2020 | | Clinics at S | [address] | (call back requested | | | | [facility] | [place], [place] | ) | | | | for Health and | [address] | | | | | Healing [address] | [phone] | | | | | Ave [place], [place] | | | | | | [address] | | | | | | [phone] | | | +--------+ + + + [...]
--- OUTSIDE RECORDS SUMMARY | ~2019-09-12 | XMS | Encounter Summary ---
Demographics + + + | Address | [address] | | | [place] [address] | + + + | Home Phone [...] + | Matthew Ramirez | CHRIS | [address] | | | | | [place] | | | | | [address] | | + + + + + | Nella Haque | ECON | Unknown | | + + + + + Care Team Providers + +------+ + | Care Slubber Operator Name | Role | Phone | [...] | | | | | | ma ([facility]) | [place], | | | | | | Procedures | [place] | | | | | [place] | [address] | | | | | | CONTRAST | Phone: | | | | | | | [phone] | | | | | | | Fax: | | | | | | | [phone] | | + +--------+ + + + [...] | | | | ma (HCC) | [place], | | | | | | Procedures | [place] | | | | | | [place] | [address] | | | | | | CONTRAST | Phone: | | | | | | | [phone] | | | | | | | Fax: | | | | | | | [phone] | | + +--------+ + + + [...] | | | [address] Mailcode: | [place], [place] | | | | | [address] | [address] | | | | | Health and Healing, | [phone] | | | | | [address] | | | | | | Floor [place], [place] | | | | | | [address] | | | | | | [phone] | | | +--------+ + + + [...] nostril | | | | | | [place] | once daily. | | | | [...]
--- OUTSIDE RECORDS SUMMARY | ~2019-09-12 | XMS | Encounter Summary ---
Demographics + + + | Address | [address] | | | [place] [address] | + + + | Home Phone [...] | Author | [facility] | | | and Nenoana | + + + | Organization | [facility] [...] + | Matthew Ramirez | ECON | [address] | | | | | [place] | | | | | [address] | | + + + + + Care Team Providers + +------+ + | Care Autism Teacher Name | Role | Phone | [...] | | cancer | Luis Richards, | [place] | | | | | metastasized | MD [address] | [place], [place] | | | | | to multiple | [address] | [address] | | | | | sites, left | [place], | Phone: | | | | | (HCC) | [place] [address] | [phone] | | | | | Procedures | Phone: | Fax: | | | | | PET CT Skull | [phone] | [phone] | | | | | Base To Mid | Fax: | | | | | | Thigh | [phone] | | +--------+--------+ + + + + [...] [place] | | | | | [address] [place] | [place] [address] | | | | | [place] [address] | [phone] | | | | | [phone] | | | +--------+ + + + [...]
--- OUTSIDE RECORDS SUMMARY | ~2019-09-12 | XMS | Encounter Summary ---
Demographics + + + | Address | [address] | | | [place] [address] | + + + | Home Phone [...] | Author | [facility] | | | and Nenoana | + + + | Organization | [facility] | | | and [...] + | Matthew Ramirez | ECON | [address] | | | | | [place] | | | | | [address] | | + + + + + Care Team Providers + +------+ + | Care Applications Support Analyst Name | Role | Phone | [...] Event | HOSPITAL OR INTRA OP | DENTAL TECHNICIAN APPRENTICE [address] | | | | | [address] | [place] [address] | | | | | [place], [place] | [phone] | | | | | [address] | | | | | | [phone] | | | +--------+ + + + + Anesthesia Record + + + + + | Procedure Name | Responsible | Anesthesia Start | Anesthesia Stop Time | | | Anesthesiologist | Time | | + + + + + | ARTHROPLASTY 3rd and | Mayank Honeycutt, | 02/13/18 1306 | 02/13/18 1440 | | 4th Digits with | DENTAL TECHNICIAN APPRENTICE | | | | Impalnt Revision | [...] Pt A&O x3, comfortable, conversing, return to [facility] in bed. | | | 4 | [...] 1530 by | | eral | Antecubital; [id number] | Steve Parry RN | [place] [...]
--- OUTSIDE RECORDS SUMMARY | ~2019-09-12 | XMS | Encounter Summary ---
Demographics + + + | Address | [address] | | | [place] [address] | + + + | Home Phone [...] | Author | [facility] | | | and Nenoana | + + + | Organization | [facility] [...] + | Matthew Ramirez | ECON | [address] | | | | | [place] | | | | | [address] | | + + + + + Care Team Providers + +------+ + | Care Blood Bank Supervisor Name | Role | Phone | [...] | | [address] | [place] [address] | | | | | [address] | | | | | | [phone] | | | +--------+ + + + [...]
--- OUTSIDE RECORDS SUMMARY | ~2019-09-12 | XMS | Encounter Summary ---
Demographics + + + | Address | [address] | | | [place] [address] | + + + | Home Phone [...] + | Matthew Ramirez | ECON | [address] | | | | | [place] | | | | | [address] | | + + + + + Care Team Providers + +------+ + | Care Pin Ticket Machine Operator Name | Role | Phone [...] | | cancer | Luis Richards, | [place] | | | | | metastasized | MD [address] | [place], [place] | | | | | to multiple | [address] | [address] | | | | | sites, left | [place], | Phone: | | | | | (HCC) | [place] [address] | [phone] | | | | | Procedures | Phone: | Fax: | | | | | PET CT Skull | [phone] | [phone] | | | | | Base To Mid | Fax: | | | | | | Thigh | [phone] | | +--------+--------+ + + + + [...] | | cancer | Luis Richards, | [place] | | | | | metastasized | MD [address] | [place], [place] | | | | | to multiple | [address] | [address] | | | | | sites, left | [place], | Phone: | | | | | (HCC) | [place] [address] | [phone] | | | | | Procedures | Phone: | Fax: | | | | | PET CT Skull | [phone] | [phone] | | | | | Base To Mid | Fax: | | | | | | Thigh | [phone] | | +--------+--------+ + + + + Encounter Details +--------+ + + + + | Date | Type | Department | Care Team | Description | +--------+ + + + + | 07/21/ | Hospital | [facility] | Ar[place], | Breast cancer | | 2020 | Encounter | MED CTR PET SCAN | Luis Richards MD [address] | metastasized to | | | | [address] [place] [place] | [address] [place] | multiple sites, left | | | | [place] [address] | [place] [address] | (HCC) | | | | [phone] | [phone] | | | | | | | [...] millicur | | | | Intravenous, ONCE, [facility] 07/22/19 at | | AM PDT | ies | | | | 0930, For 1 dose | | | | | | + +--------+ + +------+------+ +---+---+ | | | +---+---+ documented in this encounter
--- OUTSIDE RECORDS SUMMARY | ~2019-09-12 | XMS | Encounter Summary ---
Demographics + + + | Address | [address] | | | [place] [address] | + + + | Home Phone [...] + | Matthew Ramirez | CHRIS | [address] | | | | | [place] | | | | | [address] | | + + + + + | Nella Haque | ECON | Unknown | | + + + + + Care Team Providers + +------+ + | Care Sales Representative Health Insurance Name | Role | Phone | + [...] + + | 07/28/ | Office | [facility] | Rodriguez Bower MD | Metastatic breast | | 2020 | Visit | Clinics at S | [address] | cancer (HCC) | | | | [facility] | [place], [place] | (Primary Dx) | | | | for Health and | [address] | | | | | Healing [address] | [phone] | | | | | [place], [place] | | | | | | [address] | | | | | | [phone] | | | +--------+---------+ + + + [...] adenocarcinoma -saw Dr. Antony of oncology at [place], discussed getting EUS for further evaluati on [...] with her daily activities. She lives in [place] with her , whom she cares for [...] Diagnosis 1. Multiple specimens A to F (-[id number]; 01/13/19): A. Stomach, antrum at great curvature, [...] Bonifacio Resendez MD Pathologist Pathology, [facility] My electronic signature indicates [...] issues noted above. Rodriguez Bower MD, MS ID#[id number] [employer] Architectophthalmic dispenser Division of Hematology and Medical Oncology [facility] [place] Pager#[phone] documented in this enco unter Plan of Treatment Not on filedocumented as of this encounter Visit Diagnoses + + | Diagnosis | + + | Metastatic breast cancer (HCC) - Primary | + + documented in this encounter"
--- OUTSIDE RECORDS SUMMARY | ~2019-09-12 | XMS | Encounter Summary ---
Demographics + + + | Address | [address] | | | [place] [address] | + + + | Home Phone [...] + | Matthew Ramirez | CHRIS | [address] | | | | | [place] | | | | | [address] | | + + + + + | Nella Haque | ECON | Unknown | | + + + + + Care Team Providers + +------+ + | Care Baseball Player Name | Role | Phone | + [...] Ave | (Tamoxifen) | | | | [facility] | [place], [place] | | | | | [facility] and | [address] | | | | | Healing [address] | [phone] | | | | | Ave [place], [place] | | | | | | [address] | | | | | | [phone] | | | +--------+--------+ + + + [...]
--- OUTSIDE RECORDS SUMMARY | ~2019-09-12 | XMS | Encounter Summary ---
Demographics + + + | Address | [address] | | | [place] [address] | + + + | Home Phone [...] + | Matthew Ramirez | CHRIS | [address] | | | | | [place] | | | | | [address] | | + + + + + | Nella Haque | ECON | Unknown | | + + + + + Care Team Providers + +------+ + | Care Numerologist Name | Role | Phone | + [...] | | 2010 | | [facility] at [place] | MD Gillian [address] | | | | | [place] [address] | [facility] | | | | | [address] | [place], [place] | | | | | [place], [facility] floor | [address] | | | | | [place], [place] | [phone] | | | | | [address] | | | | | | [phone] | | | +--------+ + + + [...]
--- OUTSIDE RECORDS SUMMARY | ~2019-09-12 | XMS | Encounter Summary ---
Demographics + + + | Address | [address] | | | [place] [address] | + + + | Home Phone [...] + | Matthew Ramirez | CRHIS | [address] | | | | | [place] | | | | | [address] | | + + + + + | Nella Haque | ECON | Unknown | | + + + + + Care Team Providers + +------+ + | Care Pipe Manufacture Supervisor Name | Role | Phone | [...] | | 2010 | | [facility] [place] | MD Gillian [address] | | | | | [place] [address] | [facility] | | | | | [address] | [place], [place] | | | | | [place], [facility] floor | [address] | | | | | [place], [place] | [phone] | | | | | [address] | | | | | | [phone] | | | +--------+ + + + [...]
--- OUTSIDE RECORDS SUMMARY | ~2019-09-12 | XMS | Encounter Summary ---
Demographics + + + | Address | [address] | | | [place] [address] | + + + | Home Phone | | + + + | Preferred Language | Unknown | + + + | Marital Status | | + + + | Caodaism Affiliation | Unknown | + + + | Race | Unknown | + + + | Ethnic Group | Unknown | + + + Author + + + | Author | [facility] | | | and Nenoana | + + + | Organization | [facility] [...] + | Matthew Ramirez | ECON | [address] | | | | | [place] | | | | | [address] | | + + + + + Care Team Providers + +------+ + | Care Cleaning Laborer Name | Role | Phone | + [...] + + | 03/18/ | Telephone | [facility] | Arpan | Coordination Of Care | | 2019 | | [facility] | Luis Richards MD [address] | | | | | ONCOLOGY CLINIC [address] | [facility] | | | | | [address] [facility] | [place] [address] | | | | | [place] [address] | [phone] | | | | | [phone] | | | +--------+ + + + [...]
--- OUTSIDE RECORDS SUMMARY | ~2019-09-12 | XMS | Encounter Summary ---
Demographics + + + | Address | [address] | | | [place] [address] | + + + | Home Phone [...] + | Matthew Ramirez | CHRIS | [address] | | | | | [place] | | | | | [address] | | + + + + + | Nella Haque | ECON | Unknown | | + + + + + Care Team Providers + +------+ + | Care Nursing Home Manager Name | Role | Phone | [...] | | | | | stress | [place], [place] | [place], [place] | | | | | incontinence | [address] | [address] | | | | | Procedures | Phone: | Phone: | | | | | REQUEST TO | [phone] | [phone] | | | | | SURGERY | Fax: | Fax: | | | | | YARD TRUCK DRIVER | [phone] | [phone] | | | | | NE | | | | | | | CYSTOURETHRO | | | | | | | SCOPY NE | | | | | | | SLING OPER | | | | | | | STRES | | | | | | | INCONTINENCE | | | +--------+--------+ + + + + Encounter Details +--------+---------+ + + + | Date | Type | Department | Care Team | Description | +--------+---------+ + + + | 11/29/ | Office | [facility] | Avis Rios | Postop check | | 2010 | Visit | [facility] [place] | MD [address] | (Primary Dx) | | | | [address] [address] | [address] | | | | | [address] | [place], [place] | | | | | [place], [facility] floor | [address] | | | | | [place], [place] | [phone] | | | | | [address] | | | | | | [phone] | | | +--------+---------+ + + + [...]
--- OUTSIDE RECORDS SUMMARY | ~2019-09-12 | XMS | Encounter Summary ---
Demographics + + + | Address | [address] | | | [place] [address] | + + + | Home Phone [...] | [facility] | | | and Nenoana | + + + | Organization | [facility] | [...] + | Matthew Ramirez | CHRIS | [address] | | | | | [place] | | | | | [address] | | + + + + + Care Team Providers + +------+ + | Care Marketing Services Vice President Name | Role | Phone | + +------+ + PCP | Unavailable | + +------+ + Encounter Details +--------+ + + + + | Date | Type | Department | Care Team | Description | +--------+ + + + + | 03/20/ | Hospital | [facility] | | | | 1994 | Encounter | MED CTR XRAY [address] | | | | | | [address]ad [address] | | | | | | [place] [address] | | | | | | [phone] | | | +--------+ + + + [...]
--- OUTSIDE RECORDS SUMMARY | ~2019-09-12 | XMS | Encounter Summary ---
Demographics + + + | Address | [address] | | | [place] [address] | + + + | Home Phone [...] Author | [facility] | | | and Nenoana | + + + | Organization | [facility] | [...] + | Matthew Ramirez | ECON | [address] | | | | | [place] | | | | | [address] | | + + + + + Care Team Providers + +------+ + | Care Packaging Operator Name | Role | Phone | [...] | | | | | [place] [facility] | | | | | | [...] | Surgery | [place] | Jose Rnadall | CORRECTION | | 2018 | | HOSPITAL OR INTRA OP | [address] | MARSHA 2, 3, 4 | | | | [address] | [facility], | | | | | [place], [place] | [place] [address] | | | | | [address] | [phone] | | | | | [phone] | | | +--------+---------+ + + + [...]
--- OUTSIDE RECORDS SUMMARY | ~2019-09-12 | XMS | Encounter Summary ---
Demographics + + + | Address | [address] | | | [place] [address] | + + + | Home Phone [...] + | Author | [facility] | | | and Nenoana | + + + | Organization | [facility] | | [...] + | Matthew Ramirez | ECON | [address] | | | | | [place] | | | | | [address] | | + + + + + Care Team Providers + +------+ + | Care Crop Research Scientist Name | Role | Phone | + [...] | | | | | | [place] [address] | | | | | | [phone] | | | +--------+ + + + [...]
--- OUTSIDE RECORDS SUMMARY | ~2019-09-12 | XMS | Encounter Summary ---
Demographics + + + | Address | [address] | | | [place] [address] | + + + | Home Phone [...] Author | [facility] | | | and Nenoana | + + + | Organization | [facility] | | [...] + | Matthew Ramirez | CHRIS | [address] | | | | | [place] | | | | | [address] | | + + + + + Care Team Providers + +------+ + | Care Hvac/R Instructor Name | Role | Phone | + +------+ + PCP | Unavailable | + +------+ + Encounter Details +--------+ + + + + | Date | Type | Department | Care Team | Description | +--------+ + + + + | 01/26/ | Hospital | [facility] | | | | 2008 | Encounter | MED CTR XRAY [address] | | | | | | [address] | | | | | | [place] [address] | | | | | | [phone] | | | +--------+ + + + [...]
--- OUTSIDE RECORDS SUMMARY | ~2019-09-12 | XMS | Encounter Summary ---
Demographics + + + | Address | [address] | | | [place] [address] | + + + | Home Phone [...] + | Matthew Ramirez | CHRIS | [address] | | | | | [place] | | | | | [address] | | + + + + + | Nella Haque | ECON | Unknown | | + + + + + Care Team Providers + +------+ + | Care Brass And Wind Instrument Repairer Name | Role | Phone [...] Visit | Medicine Clinic at | T, FRONT COUNTER CLERK-C,MPH | Preop examination; | | | | [facility] 4th Floor [address] | | Diabetes mellitus | | | | [address] | | screening; Other | | | | Mailcode: CH4S | | specified | | | | [facility] | | pre-operative | | | | and Healing, | | examination | | | | Building 1,4th Floor | | | | | | [place], [place] | | | | | | [address] | | | | | | [phone] | | | +--------+---------+ + + + [...] % (0.1 mg/g) Vaginal Cream folic acid Dyylpqpylfr-Zmpqehftt-Lhv C-Mn (GLUCOSAMINE CHONDROITIN MAXSTR)- HOLD 7 days [...] OR NON-STEROIDAL ANTI-INFLAMMATORY DRUGS (NSAIDs) Advil, Aleve, Roxanne-Woodbridge, Anacin, Arthopan, Ascriptin, Aspergum, Aspirin with and [...] Phenylbutazone, Piroxicam, Propoxyphene, Relafen, Robomol, Rufen, Sine-aid, Au S[place] s cold tablets, Sulindac, Talwin, Tolectin, Triaminicin, [...] perfume, lotions or powder. Remove any nail chadian from at least one fingernail. Do not [...] Surgery Check in Locations Day Stay Unit [phone], [facility], fourth floor Room 4513 Surgery Check in Time Check-in times for Hospital Admissions are not available until the day prior to surgery. So meone from your surgeon's office or the hospital will contact you with your check in time. I f you do not hear from anyone by 3:00 PM please call your surgeons' office for [id number] . Going Home Your surgeon will decide [...] it is after office hours, call the [facility] drop wire operator at [phone] and ask them to page your doc [...] Scanned H&P. H and P entered into [employer](Chart review, Media tab). Vy Sosa RN, KAELA, MPH [facility] [address] Mail Code: [facility],4th [facility] [address] documente d in this encounter Plan of Treatment Not on filedocumented as of this encounter Procedures + +--------+ + + + | Procedure Name | Priori | Date/Time | Associated Diagnosis | Comments | | | ty | | | | + +--------+ + + + | KS COLLECTION VENOUS | Routin | 10/25/2010 | [...] POINT | [address] | [place] [address] | | | OF CARE TESTS | [...] | | | DEPARTMENT | | | CHADIAN | | | OF | | | [...] | + + + + + | [facility] | [address] | [place] [address] | | | PATHOLOGY | [address] [...] + | [facility] DEPARTMENT OF | [address] [facility] | [place] [address] | | | PATHOLOGY | [address] [...] | + + + + + | [facility] | [address] | [place] [address] | | | PATHOLOGY | [address] [...]
--- OUTSIDE RECORDS SUMMARY | ~2019-09-12 | XMS | Encounter Summary ---
Demographics + + + | Address | [address] | | | [place] [address] | + + + | Home Phone [...] Author | [facility] | | | and Nenoana | + + + | Organization | [facility] | | | and Nenoana [...] + | Matthew Ramirez | ECON | [address] | | | | | [place] | | | | | [address] | | + + + + + Care Team Providers + +------+ + | Care Planned Giving Officer Name | Role | Phone | [...] | | | | | | [place] REPAIR OF | | | | | [...] Event | HOSPITAL OR INTRA OP | MANAGER SOCIAL MEDIA [address] | | | | | [address] | [place] [address] | | | | | [place], [place] | [phone] | | | | | [address] | | | | | | [phone] | | | +--------+ + + + + Anesthesia Record + + + + + | Procedure Name | Responsible | Anesthesia Start | Anesthesia Stop Time | | | Anesthesiologist | Time | | + + + + + | ARTHROPLASTY 3rd and | Mayank Honeycutt, | 02/13/18 1306 | 02/13/18 1440 | | 4th Digits with | MANAGER SOCIAL MEDIA | | | | Impalnt Revision | [...] Pt A&O x3, comfortable, conversing, return to [facility] in bed. | | | [...] 1530 by | | eral | Antecubital; [id number] | Steve Parry RN | [place] [...]
--- OUTSIDE RECORDS SUMMARY | ~2019-09-12 | XMS | Encounter Summary ---
Demographics + + + | Address | [address] | | | [place] [address] | + + + | Home Phone [...] | Author | [facility] | | | and Nenoana | + + + | Organization | [facility] | | | and Nenoana [...] + | Matthew Ramirez | CHRIS | [address] | | | | | [place] | | | | | [address] | | + + + + + Care Team Providers + +------+ + | Care Slag Dumper Name | Role | Phone | + +------+ + PCP | Unavailable | + +------+ + Encounter Details +--------+ + + + + | Date | Type | Department | Care Team | Description | +--------+ + + + + | 02/02/ | Hospital | [facility] | | | | 2001 | Encounter | MED CTR MP INTRA OP | | | | | | [address] | | | | | | [place] | | | | | | [address] | | | | | | [phone] | | | +--------+ + + + [...]
--- OUTSIDE RECORDS SUMMARY | ~2019-09-12 | XMS | Encounter Summary ---
Demographics + + + | Address | [address] | | | [place] [address] | + + + | Home Phone [...] [facility] | | | and Nenoana | + + + | Organization | [facility] [...] + | Matthew Ramirez | ECON | [address] | | | | | [place] | | | | | [address] | | + + + + + Care Team Providers + +------+ + | Care Agricultural Aircraft Pilot Name | Role | Phone | + [...] [address] | [address] [place], | | | | | [facility], [place] | [place] [address] | | | | | [address] | [phone] | | | | | [phone] | | | +--------+ + + + [...] Care Everywhere.Foot Surgery: Maurice pace Fifth Toe (Israeli)Foot Surgery: Flexible and Rigid Hammertoes (Israeli)Mallet, Hammer , and Claw Toes, Treating (Israeli)Mallet, Hammer, and Claw Toes, What Are (Israeli)document ed in this encounter Medications at Time [...]
--- OUTSIDE RECORDS SUMMARY | ~2019-09-12 | XMS | Encounter Summary ---
Demographics + + + | Address | [address] | | | [place] [address] | + + + | Home Phone [...] + | Matthew Ramirez | CHRIS | [address] | | | | | [place] | | | | | [address] | | + + + + + | Nella Haque | ECON | Unknown | | + + + + + Care Team Providers + +------+ + | Care Embroidery Machine Operator Name | Role | Phone | + +------+ + | Long Copeland MD | PCP | | + +------+ + Encounter Details +--------+ + + + + | Date | Type | Department | Care Team | Description | +--------+ + + + + | 01/28/ | Procedure | Radiology/Imaging | | | | 2019 | Pass | Lab at [facility] [address] | | | | | | [address] Mailcode: | | | | | | [facility] | | | | | | Health and Healing, | | | | | | [place] [address] [facility] | | | | | | [place], [place] | | | | | | [address] | | | | | | [phone] | | | +--------+ + + + [...]
--- OUTSIDE RECORDS SUMMARY | ~2019-09-12 | XMS | Encounter Summary ---
Demographics + + + | Address | [address] | | | [place] [address] | + + + | Home Phone [...] Author | [facility] | | | and Nenoana | + + + | Organization | [facility] | | [...] + | Matthew Ramirez | ECON | [address] | | | | | [place] | | | | | [address] | | + + + + + Care Team Providers + +------+ + | Care Health Education Director Name | Role | Phone | [...] | | | | | | [place] REPAIR OF | | | | | [...] Event | HOSPITAL OR INTRA OP | JOURNALISM INSTRUCTOR [address] | | | | | [address] | [place] [address] | | | | | [place], [place] | [phone] | | | | | [address] | | | | | | [phone] | | | +--------+ + + + + Anesthesia Record + + + + + | Procedure Name | Responsible | Anesthesia Start | Anesthesia Stop Time | | | Anesthesiologist | Time | | + + + + + | ARTHROPLASTY 3rd and | Mayank Honeycutt, | 02/13/18 1306 | 02/13/18 1440 | | 4th Digits with | JOURNALISM INSTRUCTOR | | | | Impalnt Revision | [...] Pt A&O x3, comfortable, conversing, return to [facility] in bed. | | | [...] 1530 by | | eral | Antecubital; [id number] | Steve Parry RN | [place] [...]
--- OUTSIDE RECORDS SUMMARY | ~2019-09-12 | XMS | Encounter Summary ---
Demographics + + + | Address | [address] | | | [place] [address] | + + + | Home Phone [...] + | Matthew Ramirez | CHRIS | [address] | | | | | [place] | | | | | [address] | | + + + + + | Nella Haque | ECON | Unknown | | + + + + + Care Team Providers + +------+ + | Care Icu Clerk Name | Role | Phone | [...] (TRAMADOL 50 mg) | | | | [facility] | [place], [place] | | | | | for Health and | [address] | | | | | Healing [address] | [phone] | | | | | [place], [place] | | | | | | [address] | | | | | | [phone] | | | +--------+--------+ + + + [...]
--- OUTSIDE RECORDS SUMMARY | ~2019-09-12 | XMS | Encounter Summary ---
Demographics + + + | Address | [address] | | | [place] [address] | + + + | Home Phone [...] | Author | [facility] | | | and Nenoana | + + + | Organization | [facility] | | | [...] + | Matthew Ramirez | CHRIS | [address] | | | | | [place] | | | | | [address] | | + + + + + Care Team Providers + +------+ + | Care Transition Rn Name | Role | Phone | [...] [address] | | | | | | [place], [place] | | | | | | [address] | | | | | | [phone] | | | +--------+ + + + [...]
--- OUTSIDE RECORDS SUMMARY | ~2019-09-12 | XMS | Encounter Summary ---
Demographics + + + | Address | [address] | | | [place] [address] | + + + | Home Phone [...] + | Author | [facility] | | | and Nenoana | + + + | Organization | [facility] | | | and Nenoana [...] + | Matthew Ramirez | ECON | [address] | | | | | [place] | | | | | [address] | | + + + + + Care Team Providers + +------+ + | Care Stock Unloader Name | Role | Phone | + [...] | | | [place], [place] | [place] [address] | | | | | [address] | [phone] | | | | | [phone] | | | +--------+---------+ + + + [...] Care Everywhere.Foot Surgery: Maurice pace Fifth Toe (Japanese)Foot Surgery: Flexible and Rigid Hammertoes (Japanese)Mallet, Hammer , and Claw Toes, Treating (Japanese)Mallet, Hammer, and Claw Toes, What Are (Japanese)document ed in this encounter Medications at Time [...]
--- OUTSIDE RECORDS SUMMARY | ~2019-09-12 | XMS | Encounter Summary ---
Demographics + + + | Address | [address] | | | [place] [address] | + + + | Home Phone [...] + | Matthew Ramirez | CHRIS | [address] | | | | | [place] | | | | | [address] | | + + + + + | Nella Haque | ECON | Unknown | | + + + + + Care Team Providers + +------+ + | Care Ratoprinter Name | Role | Phone | + [...] | | | | | | ma ([facility]) | [place], | | | | | | Procedures | [place] | | | | | | [place] | [address] | | | | | | CONTRAST | Phone: | | | | | | | [phone] | | | | | | | Fax: | | | | | | | [phone] | | + +--------+ + + + [...] | | | | ma ([facility]) | [place], | | | | | | Procedures | [place] | | | | | | [place] | [address] | | | | | | CONTRAST | Phone: | | | | | | | [phone] | | | | | | | Fax: | | | | | | | [phone] | | + +--------+ + + + [...] | | | [address] Mailcode: | [place], [place] | | | | | [address] | [address] | | | | | Health and Healing, | [phone] | | | | | [address] | | | | | | Floor [place], [place] | | | | | | [address] | | | | | | [phone] | | | +--------+ + + + [...] nostril | | | | | | Glennie | once daily. | | | | [...]
--- OUTSIDE RECORDS SUMMARY | ~2019-09-12 | XMS | Encounter Summary ---
Demographics + + + | Address | [address] | | | [place] [address] | + + + | Home Phone [...] + | Matthew Ramirez | CHRIS | [address] | | | | | [place] | | | | | [address] | | + + + + + | Nella Haque | ECON | Unknown | | + + + + + Care Team Providers + +------+ + | Care Pediatric Geneticist Name | Role | Phone | + [...] 2019 | | Clinics at | [address] [facility] | (tamoxifen) | | | | [facility] | [facility], | | | | | [facility] and | [place] [address] | | | | | Healing [address] | | | | | | [place], [place] | | | | | | [address] | | | | | | [phone] | | | +--------+ + + + [...]
--- OUTSIDE RECORDS SUMMARY | ~2019-09-12 | XMS | Encounter Summary ---
Demographics + + + | Address | [address] | | | [place] [address] | + + + | Home Phone [...] + | Matthew Ramirez | CHRIS | [address] | | | | | [place] | | | | | [address] | | + + + + + | Nella Haque | ECON | Unknown | | + + + + + Care Team Providers + +------+ + | Care Adjunct Philosophy Faculty Name | Role | Phone | + [...] Clinics at S | [address] | | | | | [facility] | [place], [place] | | | | | for Health and | [address] | | | | | Healing [address] | [phone] | | | | | [address] [place], [place] | | | | | | [address] | | | | | | [phone] | | | +--------+ + + + [...]
--- OUTSIDE RECORDS SUMMARY | ~2019-09-12 | XMS | Encounter Summary ---
Demographics + + + | Address | [address] | | | [place] [address] | + + + | Home Phone [...] + | Matthew Ramirez | CHRIS | [address] | | | | | [place] | | | | | [address] | | + + + + + | Nella Haque | ECON | Unknown | | + + + + + Care Team Providers + +------+ + | Care Hot Wort Settler Name | Role | Phone | + [...] Amador | (Letrozole) | | | | [facility] | [facility] | | | | | [facility] and | [place], [place] | | | | | Healing [address] | [address] | | | | | [place], [place] | | | | | | [address] | | | | | | [phone] | | | +--------+--------+ + + + [...]
--- OUTSIDE RECORDS SUMMARY | ~2019-09-12 | XMS | Encounter Summary ---
Demographics + + + | Address | [address] | | | [place] [address] | + + + | Home Phone [...] + | Matthew Ramirez | CHRIS | [address] | | | | | [place] | | | | | [address] | | + + + + + | Nella Lowery ECON | Unknown | | + + + + + Care Team Providers + +------+ + | Care Presser All Around Name | Role | Phone | + [...] | 2019 | marv | [address] [facility] | [address] | | | | | Rd [place], [place] | [place], [place] | | | | | [address] | [address] | | | | | | [phone] | | | | | | | [...]
--- OUTSIDE RECORDS SUMMARY | ~2019-09-12 | XMS | Encounter Summary ---
Demographics + + + | Address | [address] | | | [place] [address] | + + + | Home Phone [...] + | Matthew Ramirez | CHRIS | [address] | | | | | [place] | | | | | [address] | | + + + + + [...] | | sphincter | MD Gillian | [address] | | | | | deficiency | [address] | [address] | | | | | (ISD) | [address] | [address] | | | | | Urinary | Rd | floor | | | | | stress | [facility] [place] | [place], [place] | | | | | incontinence | [address] | [address] | | | | | Procedures | Phone: | Phone: | | | | | REQUEST TO | [phone] | [phone] | | | | | SURGERY | Fax: | Fax: | | | | | MEDICAL TRANSCRIPTION EDITOR | [phone] | [phone] | | | | | [place] | | | | | | | [place] | | | | | | | [place] | | | | | | [...] | | | | | | | [address] | | | | | | | [address] | | | | | | | [address] [facility] | | | | | | | floor | | | | | | | [place], [place] | | | | | | | [address] | | | | | | | Phone: | | | | | | | [phone] | | | | | | | Fax: | | | | | | | [phone] | +--------+--------+ + + + + Encounter Details +--------+---------+ + + + | Date | Type | Department | Care Team | Description | +--------+---------+ + + + | 10/03/ | [facility] Avis Rios | 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 Sprague and agree with [facility] findings and plan as documented in [...] be found in the scanned documents in [facility]. They have also been ent ered into the [facility] database. PHYSICAL EXAM BP 160/90 | [...] see scanned report in Epic In summary: ALF 368cc with no DO; MUCP 10 cm [...] October 26 with preop October 25. TVT 16740 Patient seen and discussed with Dr. Rios. Christiana Cullen RN - 10/03/2010 11:26 AM PDTUrine dipstick ordered and pt voided 295 mL of urine. Pt prepped with betadine. 14 indonesian straight cath through pts external urethra for [...] | + +--------+ + + + | CO CYSTOMETROGRAM | Routin | 11/01/2010 | Intrinsic | | | W/PRESS TOOL MAKER&UP | e | 10:19 PM | sphincter deficiency | | | | | PDT | (ISD) Urinary | | | | | | stress incontinence | | + +--------+ + + + | CO INTRAABDOMINAL | Routin | 11/01/2010 | Intrinsic | | | VOIDING PRESSURE | e | 10:19 PM | sphincter deficiency | | | STUDY,AP,GLOBAL | | PDT | (ISD) Urinary | | | | | | stress incontinence | | + +--------+ + + + | CO | Routin | 11/01/2010 | Intrinsic | | | UROFLOWMETRY,COMPLEX | e | 10:19 PM | sphincter deficiency | | | ,GLOBAL | | PDT | (ISD) Urinary | | | | | | stress incontinence | | + +--------+ + + + | CO CYSTOMETROGRAM, | Routin | 11/01/2010 | Intrinsic | | | COMPLEX, GLOBAL | e | 10:19 PM | sphincter deficiency | | | | | PDT | (ISD) Urinary | | | | | | stress incontinence | | + +--------+ + + + | CO INTRAABDOMINAL | Routin | 11/01/2010 | Intrinsic [...] | + +--------+ + + + | CO NURSE 2 | Routin | 10/03/2010 | [...] | | DIP), POC | | | MARKUORTNEYAM | | | | | | DANISHA [...] MARQUAM | [address] | [place], [place] | | | [place] POINT OF CARE | [address] | [address] | | | TESTS | | | [...]
--- OUTSIDE RECORDS SUMMARY | ~2019-09-12 | XMS | Encounter Summary ---
Demographics + + + | Address | [address] | | | [place] [address] | + + + | Home Phone [...] + | Matthew Ramirez | CHRIS | [address] | | | | | [place] | | | | | [address] | | + + + + + | Nella Haque | ECON | Unknown | | + + + + + Care Team Providers + +------+ + | Care Professor Of Oceanography Name | Role | Phone | + [...] | | | | | Procedures | [address] | | | | | | PET CT SKULL | Phone: | | | | | | [place] | [phone] | | | | | | [place] | Fax: | | | | | | | [phone] | | +--------+--------+ + + + + [...] | | | | [address] | [address] | | | | | | [place], | Phone: | | | | | | [place] [address] | [phone] | | | | | | Phone: | Fax: | | | | | | [phone] | [phone] | | | | | | Fax: | | | | | | | [phone] | | +--------+--------+ + + + + [...] | | | Ave Mail Code: | [place], [place] | (Primary Dx); Tumor | | | | [place] [facility] | [address] | | | | | and Healing, | [phone] | | | | | Building [address] | | | | | | [place], [place] | | | | | | [address] | | | | | | [phone] | | | +--------+---------+ + + + [...] obtain PET scan at local facility in [place]. Please contact Nelli Vaca, Nurse Coordinator for Dr. Cristel Galicia, with any questions at . We encourage all of our patients to sign up and use Tango for communication . Please note: I am out of the office on Mondays and unable to monitor voicemail or email. If you need to get ahold of someone urgently, please call [phone]. documented in this encounter Progress Notes Cristel Galicia MD - 02/03/2019 9:00 AM PDTATTENDING PHYSICIAN STATEMENT AND SUMMARY This note has been dictated using [employer] voice recognition software. I saw Ashly Ramirez [...] will byrnes ve her set up in [facility], I will discuss her case when these results are avai lable in our multidisciplinary GI tumor board, and then contact the patient and a local [facility] oncologist with any treatment recommendations. RECOMMENDATIONS 1. PET CT scan to be ordered and performed in [facility]. 2. We will discuss her [...] o their satisfaction. Cristel Galicia MD, MPH piece work inspector Division of Surgical Oncology Formerly [facility] [place], [place] Desmond Frakn MD - 9:00 AM PDT 02/03/2019 Surgical Oncology Clinic New Patient Consultation--Gastric Cancer Referring Physician: Dr. uLis Antony Reason for consultation: Newly diagnosed gastric adenocarcinoma (This note is structured to facilitate communication among oncology providers) PLAN TODAY: 1. Return to clinic after discussion at tumor board. 2. Return to [facility] for EGD with biopsies for disease surveillance 3. Will need a PET/CT scan 4. Will present case and discuss in upcoming Multi-Disciplinary Tumor board and contact pat ient with recommendations. 5. Solid tumor Gene Trails 6. Follow up [facility] path review of outside records [...] gastric adeno carcinoma. She subsequently went to [place] and underwent and EUS with Dr. Stevenson [...] and hematochezia. 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 Currently, she is functionally good allowing [...] case will be discussed at the [facility] Multidisciplinary Gastrointestinal Cancer Conference which [...] active participant in their individualized evelia tment. eDsmond Voss MD R1 [facility] General Surgery documented in this [...] | [facility] | | | TESTED | [id number] labeled as | | DIAGNOSTIC | [...] | | | | | | is ambulatory service representative of | | | | | | this tumor, we would | | | | | | welcome the opportunity | | | | | | to examine it. | | | | + + + + + + | DISCLAIMER | This test was developed | | [facility] | | | | and its performance | | DIAGNOSTIC | | | | characteristics | | | | | | determined by the [facility] | | LABORATORIE | | | | [facility] Diagnostic | | S | | [...] | | | | | (CLIA). The [facility] | | | | | | Diagnostics | | | | | | Laboratories are fully | | | | | | licensed by the state of | | | | | | [place] under CLIA and | | | | | | are accredited by the | | | | | | [employer] [place] | | | | | | Pathologists (CAP). | | | | | | Oyster Washer: | | | | | | Rancho [...] + + + | PINKY | [address] | [place] [address] | | | DIAGNOSTIC | [address] [...]
--- OUTSIDE RECORDS SUMMARY | ~2019-09-12 | XMS | Encounter Summary ---
Demographics + + + | Address | [address] | | | [place] [address] | + + + | Home Phone [...] Author | [facility] | | | and Nenoana | + + + | Organization | [facility] | [...] + | Matthew Ramirez | ECON | [address] | | | | | [place] | | | | | [address] | | + + + + + Care Team Providers + +------+ + | Care Mds Coordinator Name | Role | Phone | [...] [place] | | | | | [address] | [place] [address] | | | | | [place] [address] | [phone] | | | | | [phone] | | | +--------+ + + + [...]
--- OUTSIDE RECORDS SUMMARY | ~2019-09-12 | XMS | Encounter Summary ---
Demographics + + + | Address | [address] | | | [place] [address] | + + + | Home Phone [...] | [facility] | | | and Nenoana | + + + | Organization | [facility] | [...] + | Matthew Ramirez | ECON | [address] | | | | | [place] | | | | | [address] | | + + + + + Care Team Providers + +------+ + | Care Corporate Travel Consultant Name | Role | Phone | [...] | 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 | [address] | | | | | adenocarcino | [address] | [place], | | | | | ma (HCC) | [address]VD | [place] [address] | | | | | Procedures | [place], [place] | Phone: | | | | | CT Chest | [address] | [phone] | | | | | Abdomen | Phone: | Fax: | | | | | Pelvis w | [phone] | [phone] | | | | | Contrast | Fax: | | | | | | CHG CT | [phone] | | | | | | SCAN,ABDOMEN | | | | | | | AND | | | | | | | PELVIS,W | | | | | | | CONTRAST CO | | | | | | [...] | | ma (HCC) | [address] | [place] | | | | | | [place], [place] | [place], | | | | | | [address] | [place] [address] | | | | | | Phone: | Phone: | | | | | | [phone] | [phone] | | | | | | Fax: | Fax: | | | | | | [phone] | [phone] | +--------+ + + + + + Reason for Visit + + + | Reason | Comments | + + + | Results, Pathology | | + + + Encounter Details +--------+ + + + + | Date | Type | Department | Care Team | Description | +--------+ + + + + | 12/29/ | Telephone | [facility] | Matthew Shukla MD | Results, Pathology | | 2019 | | GASTROENTEROLOGY | [address] [facility] | | | | | [address] [facility] | [place], [place] | | | | | [address] [place], [place] | [address] | | | | | [address] | [phone] | | | | | [phone] | | | +--------+ + + + [...] +--------+ + + | AMB REFERRAL TO [facility] | Outpatient | Routin | Gastric [...]
--- OUTSIDE RECORDS SUMMARY | ~2019-09-12 | XMS | Encounter Summary ---
Demographics + + + | Address | [address] | | | [place] [address] | + + + | Home Phone [...] | Author | [facility] | | | and Neonana | + + + | Organization | [facility] | [...] + | Matthew Ramirez | ECON | [address] | | | | | [place] | | | | | [address] | | + + + + + Care Team Providers + +------+ + | Care Manager Of Administration Name | Role | Phone | + [...] | 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 | [address] | | | | | adenocarcino | [address] | [place], | | | | | ma (HCC) | [address] | [place] [address] | | | | | Procedures | [place], [place] | Phone: | | | | | CT Chest | [address] | [phone] | | | | | Abdomen | Phone: | Fax: | | | | | Pelvis w | [phone] | [phone] | | | | | Contrast | Fax: | | | | | | CHG CT | [phone] | | | | | | SCAN,ABDOMEN | | | | | | | AND | | | | | | | PELVIS,W | | | | | | | CONTRAST DC | | | | | | | [...] | | ma (HCC) | [address]VD | [place] | | | | | | [place], [place] | [place], | | | | | | [address] | [place] [address] | | | | | | Phone: | Phone: | | | | | | [phone] | [phone] | | | | | | Fax: | Fax: | | | | | | [phone] | [phone] | +--------+ + + + + + Reason for Visit + + + | Reason | Comments | + + + | Results, Pathology | | + + + Encounter Details +--------+ + + + + | Date | Type | Department | Care Team | Description | +--------+ + + + + | 12/29/ | Telephone | [facility] | Matthew Shulka MD | Results, Pathology | | 2019 | | GASTROENTEROLOGY | [address] [facility] | | | | | [address] [facility] | [place], [place] | | | | | [address] [place], [place] | [address] | | | | | [address] | [phone] | | | | | [phone] | | | +--------+ + + + [...]
--- OUTSIDE RECORDS SUMMARY | ~2019-09-12 | XMS | Encounter Summary ---
Demographics + + + | Address | [address] | | | [place] [address] | + + + | Home Phone [...] Author | [facility] | | | and Nenoana | + + + | Organization | [facility] | | | and Nenoana [...] + | Matthew Ramirez | ECON | [address] | | | | | [place] | | | | | [address] | | + + + + + Care Team Providers + +------+ + | Care Ward Maid Name | Role | Phone | + [...] | | Procedures | [address] | [place] [address] | | | | | office visit | [place] | Phone: | | | | | | [place] [address] | [phone] | | | | | | Phone: | Fax: | | | | | | [phone] | [phone] | | | | | | Fax: | | | | | | | [phone] | | +--------+--------+ + + + + Encounter Details +--------+---------+ + + + | Date | Type | Department | Care Team | Description | +--------+---------+ + + + | 12/14/ | Office | [facility] | Matthew Shukla MD | Chronic abdominal | | 2019 | Visit | GASTROENTEROLOGY | [address] | pain (Primary Dx); | | | | [address] [facility] | [place], [place] | Diarrhea, | | | | [address] [place], [place] | [address] | unspecified type; | | | | [address] | [phone] | Rectal bleeding; | | | | [phone] | | Benzodiazepine | | | | [...]
--- OUTSIDE RECORDS SUMMARY | ~2019-09-12 | XMS | Encounter Summary ---
Demographics + + + | Address | [address] | | | [place] [address] | + + + | Home Phone [...] Author | [facility] | | | and Nenoana | + + + | Organization | [facility] | [...] + | Matthew Ramirez | ECON | [address] | | | | | [place] | | | | | [address] | | + + + + + Care Team Providers + +------+ + | Care Liquefaction Plant Operator Name | Role | Phone [...] | | | | [K31.9] | | [address] Phone: | | | | | Procedures | | [phone] | | | | | [place] | | Fax: | | | | | ESOPHAGOGAST | | [phone] | | | | | RODUODENOSCO | | | | | | | PY TRANSORAL | | | | | | | DIAGNOSTIC | | | | | | | [place] EDG US | | | | | [...] INTRA OP [address] | [place] [address] | | | | | [place] | [phone] | | | | | [address] | | | | | | [phone] | | | +--------+ + + + [...] handed off to recovery nurse. VSS and [place] airway | | | 2 | | [...] 01/13/19 1323 by | | nicolas | [id number] catheter system; | Jacklyn Gore RN | [...]
--- OUTSIDE RECORDS SUMMARY | ~2019-09-12 | XMS | Encounter Summary ---
Demographics + + + | Address | [address] | | | [place] [address] | + + + | Home Phone [...] + | Matthew Ramirez | CHRIS | [address] | | | | | [place] | | | | | [address] | | + + + + + | Nella Mitchellox Beverley ECON | Unknown | | + + + + + Care Team Providers + +------+ + | Care Social Director Name | Role | Phone | + +------+ + | Long Copeland MD | PCP | | + +------+ + Encounter Details +--------+ + + + + | Date | Type | Department | Care Team | Description | +--------+ + + + + | 01/28/ | Extraction Supervisor | Surgical Oncology | Cristel Galicia MD | Gastric | | 2019 | | at [facility] [address] | [address] | adenocarcinoma (HCC) | | | | Ave Mail Code: | [place], [place] | (Primary Dx) | | | | [facility] | [address] | | | | | and Healing, | [phone] | | | | | Building [address] | | | | | | [place], [place] | | | | | | [address] | | | | | | [phone] | | | +--------+ + + + [...] Electronically | | Pathologic | to [id number]; | | DEPARTMENT | signed by Bonifacio [...] PathologistPathology, | | | | | | [facility] [employer] [facility] | | | | | | [employer] [...] [facility] | | | Received | Institution: [facility] | | DEPARTMENT | | | | [facility] | | OF | | | | [place], [place] | | PATHOLOGY | | | | [id number] Accession | | | | | | Number: | | | | | | [id number] | | | | | | Collection [...] | + + + + + | [facility] | [address] | [place] [address] | | | PATHOLOGY | [address] | | | + + + + + documented in this encounter Visit Diagnoses + + | Diagnosis | + + | Gastric adenocarcinoma (HCC) - Primary Malignant neoplasm of stomach, unspecified | | site | + + documented in this encounter"
--- OUTSIDE RECORDS SUMMARY | ~2019-09-12 | XMS | Encounter Summary ---
Demographics + + + | Address | [address] | | | [place] [address] | + + + | Home Phone [...] + | Matthew Ramirez | CHRIS | [address] | | | | | [place] | | | | | [address] | | + + + + + | Nella Lowery ECON | Unknown | | + + + + + Care Team Providers + +------+ + | Care Asbestos Siding Mechanic Name | Role | Phone | [...] | | | Ave Mail Code: | [place], [place] | | | | | [facility] | [address] | | | | | and Healing, | [phone] | | | | | [address] | | | | | | [place], [place] | | | | | | [address] | | | | | | [phone] | | | +--------+ + + + [...]
--- OUTSIDE RECORDS SUMMARY | ~2019-09-12 | XMS | Encounter Summary ---
Demographics + + + | Address | [address] | | | [place] [address] | + + + | Home Phone [...] | Author | [facility] | | | and Nenoana | + + + | Organization | [facility] | | | and Neonana | [...] + | Matthew Ramirez | ECON | [address] | | | | | [place] | | | | | [address] | | + + + + + Care Team Providers + +------+ + | Care Diversional Therapist Name | Role | Phone | + [...] + | 12/17/ | Telephone | [facility] | Matthew Shukla MD | Procedure | | 2019 | | GASTROENTEROLOGY | [address] [facility] | | | | | [address] [facility] | [place], [place] | | | | | [address] [place], [place] | [address] | | | | | [address] | [phone] | | | | | [phone] | | | +--------+ + + + [...]
--- OUTSIDE RECORDS SUMMARY | ~2019-09-12 | XMS | Encounter Summary ---
Demographics + + + | Address | [address] | | | [place] [address] | + + + | Home Phone [...] + | Matthew Ramirez | ECON | [address] | | | | | [place] | | | | | [address] | | + + + + + | Nella Haque | ECON | Unknown | | + + + + + Care Team Providers + +------+ + | Care Cabinet Abrasive Sandblaster Name | Role | Phone | + [...]
--- OUTSIDE RECORDS SUMMARY | ~2019-09-12 | XMS | Encounter Summary ---
Demographics + + + | Address | [address] | | | [place] [address] | + + + | Home Phone [...] Author | [facility] | | | and Nenoana | + + + | Organization | [facility] [...] + | Matthew Ramirez | ECON | [address] | | | | | [place] | | | | | [address] | | + + + + + Care Team Providers + +------+ + | Care Planogrammer Name | Role | Phone | + +------+ + | Ashly Rojo PA-C | PCP | | + +------+ + Encounter Details +--------+ + + + + | Date | Type | Department | Care Team | Description | +--------+ + + + + | 01/05/ | Abstract | [facility] | Provider, | | | 2019 | | SURGERY [address] | MD [address] | | | | | [place], [place] | [place] | | | | | [address] | [place] [address] | | | | | [phone] | | | +--------+ + + + [...]
--- OUTSIDE RECORDS SUMMARY | ~2019-09-12 | XMS | Encounter Summary ---
Demographics + + + | Address | [address] | | | [place] [address] | + + + | Home Phone [...] Author | [facility] | | | and Nenoana | + + + | Organization | [facility] | | [...] + | Matthew Ramirez | ECON | [address] | | | | | [place] | | | | | [address] | | + + + + + Care Team Providers + +------+ + | Care Chief Operator Synthesis Name | Role | Phone | + [...] | | | | | | [place] [address] | | | | | | [phone] | | | +--------+ + + + [...]
--- OUTSIDE RECORDS SUMMARY | ~2019-09-12 | XMS | Encounter Summary ---
Demographics + + + | Address | [address] | | | [place] [address] | + + + | Home Phone [...] + | Matthew Ramirez | CHRIS | [address] | | | | | [place] | | | | | [address] | | + + + + + | Nella Haque | ECON | Unknown | | + + + + + Care Team Providers + +------+ + | Care Cosmetics And Toiletries Salesperson Name | Role | Phone | + [...] | | 2010 | | [facility] | MD Gillian [address] | | | | | [address] | [facility] | | | | | [address] | [place], [place] | | | | | [address], [facility] | [address] | | | | | [place], [place] | [phone] | | | | | [address] | | | | | | [phone] | | | +--------+ + + + [...]
--- OUTSIDE RECORDS SUMMARY | ~2019-09-12 | XMS | Encounter Summary ---
Demographics + + + | Address | [address] | | | [place] [address] | + + + | Home Phone [...] Author | [facility] | | | and Nenoana | + + + | Organization | [facility] | | | [...] + | Matthew Ramirez | CHRIS | [address] | | | | | [place] | | | | | [address] | | + + + + + Care Team Providers + +------+ + | Care Pocket Setter Name | Role | Phone | [...] [address] | | | | | | [place], [place] | | | | | | [address] | | | | | | [phone] | | | +--------+ + + + [...]
--- OUTSIDE RECORDS SUMMARY | ~2019-09-12 | XMS | Encounter Summary ---
Demographics + + + | Address | [address] | | | [place] [address] | + + + | Home Phone [...] Author | [facility] | | | and Nenoana | + + + | Organization | [facility] [...] + | Matthew Ramirez | ECON | [address] | | | | | [place] | | | | | [address] | | + + + + + Care Team Providers + +------+ + | Care Cruise Coordinator Name | Role | Phone | [...] + + | 03/18/ | Telephone | [facility] | Arpan | Coordination Of Care | | 2019 | | [facility] | Luis Richards MD [address] | | | | | [facility] [address] | [facility] | | | | | [facility] | [place] [address] | | | | | [place] [address] | [phone] | | | | | [phone] | | | +--------+ + + + [...]
--- OUTSIDE RECORDS SUMMARY | ~2019-09-12 | XMS | Encounter Summary ---
Demographics + + + | Address | [address] | | | [place] [address] | + + + | Home Phone [...] Author | [facility] | | | and Nenoana | + + + | Organization | [facility] [...] + | Matthew Ramirez | ECON | [address] | | | | | [place] | | | | | [address] | | + + + + + Care Team Providers + +------+ + | Care Strapper Name | Role | Phone | + [...] | | | [address] | [place] [address] | | | | | [place] [address] | | | | | | [phone] | | | +--------+ + + + [...]
--- OUTSIDE RECORDS SUMMARY | ~2019-09-12 | XMS | Encounter Summary ---
Demographics + + + | Address | [address] | | | [place] [address] | + + + | Home Phone [...] | Author | [facility] | | | and Nenoana | + + + | Organization | [facility] [...] + | Matthew Ramirez | ECON | [address] | | | | | [place] | | | | | [address] | | + + + + + Care Team Providers + +------+ + | Care Straightener Name | Role | Phone | [...] | | | unspecified | | [place] [address] | | | | | type | | Phone: | | | | | Chronic | | [phone] | | | | | abdominal | | Fax: | | | | | pain | | [phone] | | | | | Benzodiazepi | [...] | | | | | [address] [place] | [address] | | | | | [place] | [place] [address] | | | | | [address] | [phone] | | | | | [phone] | | | +--------+ + + + [...] 12/17/18 1622 by | | nicolas | [id number] catheter system; | Gris Davis RN | [...]
--- OUTSIDE RECORDS SUMMARY | ~2019-09-12 | XMS | Encounter Summary ---
Demographics + + + | Address | [address] | | | [place] [address] | + + + | Home Phone [...] + | Author | [facility] | | | and Nenoana | + + + | Organization | [facility] | [...] + | Matthew Ramirez | CHRIS | [address] | | | | | [place] | | | | | [address] | | + + + + + Care Team Providers + +------+ + | Care Provider Relations Representative Name | Role | Phone | + +------+ + PCP | Unavailable | + +------+ + Encounter Details +--------+ + + + + | Date | Type | Department | Care Team | Description | +--------+ + + + + | 02/02/ | [facility] | En[facility] | [facility] INTRA OP | | | | | | [address] | | | | | | [place] | | | | | | [address] | | | | | | [phone] | | | +--------+ + + + [...]
--- OUTSIDE RECORDS SUMMARY | ~2019-09-12 | XMS | Encounter Summary ---
Demographics + + + | Address | [address] | | | [place] [address] | + + + | Home Phone [...] | Author | [facility] | | | and Nenoana | + + + | Organization | [facility] | | | [...] + | Matthew Ramirez | ECON | [address] | | | | | [place] | | | | | [address] | | + + + + + Care Team Providers + +------+ + | Care Electrical Test Technician Name | Role | Phone | + +------+ + | sAhly Rojo PA-C | PCP | | + [...] | | | [address] [place] | [place] [address] | | | | | [place] [address] | | | | | | [phone] | | | +--------+ + + + [...]
--- OUTSIDE RECORDS SUMMARY | ~2019-09-12 | XMS | Encounter Summary ---
Demographics + + + | Address | [address] | | | [place] [address] | + + + | Home Phone [...] | [facility] | | | and Neno[place] | + + + | Organization | [facility] | | | [...] + | Matthew Ramirez | CHRIS | [address] | | | | | [place] | | | | | [address] | | + + + + + Care Team Providers + +------+ + | Care Acetylene Torch Burner Name | Role | Phone | + +------+ + PCP | Unavailable | + +------+ + Encounter Details +--------+ + + + + | Date | Type | Department | Care Team | Description | +--------+ + + + + | 11/27/ | Hospital | [facility] | | | | 1999 | Encounter | MED CTR GENERIC OP | | | | | | CONV DEPT [address] | | | | | | [place], | | | | | | [place] [address] | | | | | | [phone] | | | +--------+ + + + [...]
--- OUTSIDE RECORDS SUMMARY | ~2019-09-12 | XMS | Encounter Summary ---
Demographics + + + | Address | [address] | | | [place] [address] | + + + | Home Phone [...] + | Matthew Ramirez | CHRIS | [address] | | | | | [place] | | | | | [address] | | + + + + + | Nella Haque | ECON | Unknown | | + + + + + Care Team Providers + +------+ + | Care Pricing Strategist Name | Role | Phone | + +------+ + | Long Copeland MD | PCP | | + +------+ + Encounter Details +--------+ + + + + | Date | Type | Department | Care Team | Description | +--------+ + + + + | 10/10/ | Outside | UNKNOWN DEPARTMENT | Other, Faculty | | | 2019 | Records | [address] [facility] | [phone] | | | | | [place] | | | | | | [place], [place] | | | | | | [address] | | | +--------+ + + + [...]
--- OUTSIDE RECORDS SUMMARY | ~2019-09-12 | XMS | Encounter Summary ---
Demographics + + + | Address | [address] | | | [place] [address] | + + + | Home Phone [...] + | Matthew Ramirez | CHRIS | [address] | | | | | [place] | | | | | [address] | | + + + + + | Nella Haque | ECON | Unknown | | + + + + + Care Team Providers + +------+ + | Care Pathology Manager Name | Role | Phone | [...] S | [address] [facility] | | | | | [facility] | [place], [place] | | | | | [facility] | [address] | | | | | Healing [address] | [phone] | | | | | [address] [place], [place] | | | | | | [address] | | | | | | [phone] | | | +--------+--------+ + + + [...]
--- OUTSIDE RECORDS SUMMARY | ~2019-09-12 | XMS | Encounter Summary ---
Demographics + + + | Address | [address] | | | [place] [address] | + + + | Home Phone [...] + | Matthew Ramirez | CHRIS | [address] | | | | | [place] | | | | | [address] | | + + + + + | Nella Lowery ECON | Unknown | | + + + + + Care Team Providers + +------+ + | Care Registration Scheduling Specialist Name | Role | Phone | [...] Amador | | | | | at [facility] | [facility] | | | | | [address] | [place] [address] | | | | | [facility] | | | | | | [place], 2nd floor | | | | | | [place], [place] | | | | | | [address] | | | | | | [phone] | | | +--------+ + + + [...] nostril | | | | | | [place] | once daily. | | | | [...] view image for the detailed interpretation from [employer] results. | CARDIOLOGY | + + + + + + + + | Performing | Address | City/State/Zipcode | Phone Number | | Organization | | | | + + + + + | [facility] | [address] | [place], [place] | | | CARDIOLOGY | [address] | [address] | | + + + + + documented in this encounter Visit Diagnoses Not on filedocumented in this encounter
--- OUTSIDE RECORDS SUMMARY | ~2019-09-12 | XMS | Encounter Summary ---
Demographics + + + | Address | [address] | | | [place] [address] | + + + | Home Phone [...] + | Matthew Ramirez | CHRIS | [address] | | | | | [place] | | | | | [address] | | + + + + + | Nella Haque | ECON | Unknown | | + + + + + Care Team Providers + +------+ + | Care Graphics Production Specialist Name | Role | Phone | + +------+ + | Long Copeland MD | PCP | | + +------+ + Encounter Details +--------+ + + + + | Date | Type | Department | Care Team | Description | +--------+ + + + + | 01/28/ | Procedure | Radiology/Imaging | | | | 2019 | Pass | Lab at [facility] [address] | | | | | | [address] Mailcode: | | | | | | [facility] | | | | | | Health and Healing, | | | | | | [place] [address] [facility] | | | | | | [place], [place] | | | | | | [address] | | | | | | [phone] | | | +--------+ + + + [...]
--- OUTSIDE RECORDS SUMMARY | ~2019-09-12 | XMS | Encounter Summary ---
Demographics + + + | Address | [address] | | | [place] [address] | + + + | Home Phone [...] + | Author | [facility] | | | and Nenoana | + + + | Organization | [facility] | [...] + | Matthew Ramirez | CHRIS | [address] | | | | | [place] | | | | | [address] | | + + + + + Care Team Providers + +------+ + | Care Monogram Technician Name | Role | Phone | + +------+ + PCP | Unavailable | + +------+ + Encounter Details +--------+ + + + + | Date | Type | Department | Care Team | Description | +--------+ + + + + | 07/15/ | Hospital | [facility] | | | | 2001 | Encounter | MED CTR GENERIC OP | | | | | | CONV DEPT [address] | | | | | | [place], | | | | | | [place] [address] | | | | | | [phone] | | | +--------+ + + + [...]
--- OUTSIDE RECORDS SUMMARY | ~2019-09-12 | XMS | Encounter Summary ---
Demographics + + + | Address | [address] | | | [place] [address] | + + + | Home Phone [...] | Author | [facility] | | | and Nenoana | + + + | Organization | [facility] | [...] + | Matthew Ramirez | ECON | [address] | | | | | [place] | | | | | [address] | | + + + + + Care Team Providers + +------+ + | Care Logistics Planning Engineer Name | Role | Phone | [...] | | | [address] | [place] [address] | | | | | [place] [address] | | | | | | [phone] | | | +--------+ + + + [...]
--- OUTSIDE RECORDS SUMMARY | ~2019-09-12 | XMS | Encounter Summary ---
Demographics + + + | Address | [address] | | | [place] [address] | + + + | Home Phone [...] Author | [facility] | | | and Nenoana | + + + | Organization | [facility] [...] + | Matthew Ramirez | CHRIS | [address] | | | | | [place] | | | | | [address] | | + + + + + Care Team Providers + +------+ + | Care Shipping Weigher Name | Role | Phone | + +------+ + PCP | Unavailable | + +------+ + Encounter Details +--------+ + + + + | Date | Type | Department | Care Team | Description | +--------+ + + + + | 01/26/ | Hospital | [facility] | | | | 2008 | Encounter | MED CTR XRAY [address] | | | | | | [address] | | | | | | [place] [address] | | | | | | [phone] | | | +--------+ + + + [...]
--- OUTSIDE RECORDS SUMMARY | ~2019-09-12 | XMS | Encounter Summary ---
Demographics + + + | Address | [address] | | | [place] [address] | + + + | Home Phone [...] + | Matthew Ramirez | CHRIS | [address] | | | | | [place] | | | | | [address] | | + + + + + | Nella Haque | ECON | Unknown | | + + + + + Care Team Providers + +------+ + | Care Equipment Planner Name | Role | Phone | [...] Visit | Medicine Clinic at | T, FOREMAN OR SUPERVISOR AND OPERATOR-C,MPH | Preop examination; | | | | [facility] 4th Floor [address] | | Diabetes mellitus | | | | [address] | | screening; Other | | | | Mailcode: CH4S | | specified | | | | [facility] | | pre-operative | | | | and Healing, | | examination | | | | Building 1,4th Floor | | | | | | [place], [place] | | | | | | [address] | | | | | | [phone] | | | +--------+---------+ + + + [...] % (0.1 mg/g) Vaginal Cream folic acid Misyjfvmcao-Swqauvtpk-Irz C-Mn (GLUCOSAMINE CHONDROITIN MAXSTR)- HOLD 7 days [...] OR NON-STEROIDAL ANTI-INFLAMMATORY DRUGS (NSAIDs) Advil, Aleve, Roxanne-Kenner, Anacin, Arthopan, Ascriptin, Aspergum, Aspirin with and [...] Phenylbutazone, Piroxicam, Propoxyphene, Relafen, Robomol, Rufen, Sine-aid, [place] s cold tablets, Sulindac, Talwin, Tolectin, Triaminicin, [...] perfume, lotions or powder. Remove any nail qatari from at least one fingernail. Do not [...] Surgery Check in Locations Day Stay Unit [phone], [facility], fourth floor Room 4510 Surgery Check in Time Check-in times for Hospital Admissions are not available until the day prior to surgery. So meone from your surgeon's office or the hospital will contact you with your check in time. I f you do not hear from anyone by 3:00 PM please call your surgeons' office for [id number] . Going Home Your surgeon will decide [...] it is after office hours, call the [facility] kiss machine operator at [phone] and ask them to page your doc [...] Scanned H&P. H and P entered into [employer](Chart review, Media tab). Vy Sosa RN, KAELA, MPH [facility] [address] Mail Code: [facility] [address] documente d in this encounter Plan of Treatment Not on filedocumented as of this encounter Procedures + +--------+ + + + | Procedure Name | Priori | Date/Time | Associated Diagnosis | Comments | | | ty | | | | + +--------+ + + + | OR COLLECTION VENOUS | Routin | 10/25/2010 | [...] POINT | [address] | [place] [address] | | | OF CARE TESTS | [...] | | | DEPARTMENT | | | UKRAINIAN | | | OF | | | [...] | + + + + + | [facility] | [address] | [place] [address] | | | PATHOLOGY | [address] [...] + | [facility] DEPARTMENT OF | [address] [facility] | [place] [address] | | | PATHOLOGY | [address] [...] | + + + + + | [facility] | [address] | [place] [address] | | | PATHOLOGY | [address] [...]
--- OUTSIDE RECORDS SUMMARY | ~2019-09-12 | XMS | Encounter Summary ---
Demographics + + + | Address | [address] | | | [place] [address] | + + + | Home Phone | | + + + | Preferred Language | Unknown | + + + | Marital Status | | + + + | Yazidi Affiliation | Unknown | + + + | Race | Unknown | + + + | Ethnic Group | Unknown | + + + Author + + + | Author | and [facility] | | | and Neno[place] | + + + | Organization | [facility] | | [...] + | Matthew Ramirez | ECON | [address] | | | | | [place] | | | | | [address] | | + + + + + Care Team Providers + +------+ + | Care Florist Manager Name | Role | Phone | [...] + | 01/25/ | Telephone | [facility] | Arpan, | Family/caregiver | | 2019 | | MED [facility] | Luis Richards MD [address] | Concerns | | | | ONCOLOGY CLINIC [address] | [facility] | | | | | [address] | [place] [address] | | | | | [place] [address] | [phone] | | | | | [phone] | | | +--------+ + + + [...]
--- OUTSIDE RECORDS SUMMARY | ~2019-09-12 | XMS | Encounter Summary ---
Demographics + + + | Address | [address] | | | [place] [address] | + + + | Home Phone [...] [facility] | | | and [place]eno[place] | + + + | Organization | [facility] | | | and [place] | + + + | Address | Unknown | + + + | Phone | Unavailable | + + + Support + + + + + | Name | Relationship | Address | Phone | + + + + + | Nella Haque | ECON | Unknown | | + + + + + | Matthew Ramirez | CHRIS | [address] | | | | | [place] | | | | | [address] | | + + + + + Care Team Providers + +------+ + | Care Director Of Content Marketing Name | Role | Phone | + +------+ + PCP | Unavailable | + +------+ + Encounter Details +--------+ + + + + | Date | Type | Department | Care Team | Description | +--------+ + + + + | 03/20/ | Hospital | [facility] | | | | 1994 | Encounter | MED CTR XRAY [address] | | | | | | [address] | | | | | | [place] [address] | | | | | | [phone] | | | +--------+ + + + [...]
--- OUTSIDE RECORDS SUMMARY | ~2019-09-12 | XMS | Encounter Summary ---
Demographics + + + | Address | [address] | | | [place] [address] | + + + | Home Phone [...] + | Matthew Ramirez | CHRIS | [address] | | | | | [place] | | | | | [address] | | + + + + + | Nella Lowery ECON | Unknown | | + + + + + Care Team Providers + +------+ + | Care Medical Typist Name | Role | Phone | + [...] | 2019 | marv | [address] [facility] | [address] | | | | | [place], [place] | [place], [place] | | | | | [address] | [address] | | | | | | [phone] | | | | | | | [...]
--- OUTSIDE RECORDS SUMMARY | ~2019-09-12 | XMS | Encounter Summary ---
Demographics + + + | Address | [address] | | | [place] [address] | + + + | Home Phone | | + + + | Preferred Language | Unknown | + + + | Marital Status | | + + + | Scientology Affiliation | Unknown | + + + | Race | Unknown | + + + | Ethnic Group | Unknown | + + + Author + + + | Author | [facility] | | | and [place]eno[place] | + + + | Organization | [facility] | | | and Neno[place] [...] + | Matthew Ramirez | CHRIS | [address] | | | | | [place] | | | | | [address] | | + + + + + Care Team Providers + +------+ + | Care Senior Computer Specialist Name | Role | Phone | + +------+ + PCP | Unavailable | + +------+ + Encounter Details +--------+ + + + + | Date | Type | Department | Care Team | Description | +--------+ + + + + | 03/28/ | Hospital | [facility] | | | | 1996 | Encounter | MED CTR LABORATORY | | | | | | [address] | | | | | | [place] | | | | | | [address] | | | | | | [phone] | | | +--------+ + + + [...]
--- OUTSIDE RECORDS SUMMARY | ~2019-09-12 | XMS | Encounter Summary ---
Demographics + + + | Address | [address] | | | [place] [address] | + + + | Home Phone [...] + | Matthew Ramirez | CHRIS | [address] | | | | | [place] | | | | | [address] | | + + + + + | Nella Garland | ECON | Unknown | | + + + + + Care Team Providers + +------+ + | Care Last Repairer Helper Name | Role | Phone | [...] | | sphincter | MD Gillian | [address] | | | | | deficiency | [address] | [place] | | | | | (ISD) | [place] | [address] | | | | | Urinary | Rd | floor | | | | | stress | [facility], [place] | [address], [place] | | | | | incontinence | [address] | [address] | | | | | Procedures | Phone: | Phone: | | | | | REQUEST TO | [phone] | [phone] | | | | | SURGERY | Fax: | Fax: | | | | | EDITOR MAP | [phone] | [phone] | | | | | [place] | | | | | | | CYSTOURETHRO | | | | | | | [place] | | | | | | [...] | | | | | | | [address] | | | | | | | [place] | | | | | | | [address] [facility] | | | | | | | floor | | | | | | | [place], [place] | | | | | | | [address] | | | | | | | Phone: | | | | | | | [phone] | | | | | | | Fax: | | | | | | | [phone] | +--------+--------+ + + + + Encounter Details +--------+---------+ + + + | Date | Type | Department | Care Team | Description | +--------+---------+ + + + | 10/03/ | [facility] Avis Rios | 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 Sprague and agree with [facility] findings and plan as documented in [...] be found in the scanned documents in [facility]. They have also been ent ered into the [facility] database. PHYSICAL EXAM BP 160/90 | Pulse [...] see scanned report in Epic In summary: ASSISTED 368cc with no DO; MUCP 10 cm [...] October 26 with preop October 25. [id number] Patient seen and discussed with Dr. Rios. Christiana Cullen RN - 10/03/2010 11:26 AM PDTUrine dipstick ordered and pt voided 295 mL of urine. Pt prepped with betadine. 14 turkmen straight cath through pts external urethra for [...] | + +--------+ + + + | IN CYSTOMETROGRAM | Routin | 11/01/2010 | Intrinsic | | | W/CLOTH INSPECTOR&UP | e | 10:19 PM | sphincter deficiency | | | | | PDT | (ISD) Urinary | | | | | | stress incontinence | | + +--------+ + + + | IN INTRAABDOMINAL | Routin | 11/01/2010 | Intrinsic | | | VOIDING PRESSURE | e | 10:19 PM | sphincter deficiency | | | STUDY,AP,GLOBAL | | PDT | (ISD) Urinary | | | | | | stress incontinence | | + +--------+ + + + | IN | Routin | 11/01/2010 | Intrinsic | | | UROFLOWMETRY,COMPLEX | e | 10:19 PM | sphincter deficiency | | | ,GLOBAL | | PDT | (ISD) Urinary | | | | | | stress incontinence | | + +--------+ + + + | IN CYSTOMETROGRAM, | Routin | 11/01/2010 | Intrinsic | | | COMPLEX, GLOBAL | e | 10:19 PM | sphincter deficiency | | | | | PDT | (ISD) Urinary | | | | | | stress incontinence | | + +--------+ + + + | IN INTRAABDOMINAL | Routin | 11/01/2010 | Intrinsic [...] | + +--------+ + + + | IN NURSE 2 | Routin | 10/03/2010 | [...] [facility] | [address] | [place], [place] | | | [place] POINT OF CARE | [address] | [address] | | | TESTS | | | [...]
--- OUTSIDE RECORDS SUMMARY | ~2019-09-12 | XMS | Encounter Summary ---
Demographics + + + | Address | [address] | | | [place] [address] | + + + | Home Phone [...] + | Matthew Ramirez | CHRIS | [address] | | | | | [place] | | | | | [address] | | + + + + + | Nella Haque | ECON | Unknown | | + + + + + Care Team Providers + +------+ + | Care Salt Plant Operator Name | Role | Phone [...] + + | 07/28/ | Office | [facility] | Rodriguez Bower MD | Metastatic breast | | 2020 | Visit | Clinics at S | [address] | cancer (HCC) | | | | [facility] | [place], [place] | (Primary Dx) | | | | for Health and | [address] | | | | | Healing [address] | [phone] | | | | | [place], [place] | | | | | | [address] | | | | | | [phone] | | | +--------+---------+ + + + [...] adenocarcinoma -saw Dr. Antony of oncology at [facility], discussed getting EUS for further evaluati on [...] with her daily activities. She lives in [place] with her , whom she cares for [...] Diagnosis 1. Multiple specimens A to F [id number]; 01/13/19): A. Stomach, antrum at great curvature, [...] MD Pathologist Pathology, [facility] My electronic signature indicates that [...] issues noted above. Rodriguez Bower MD, MS ID#[id number] Assistant Chief Of Policephlebotomist medical lab assistant Division of Hematology and Medical Oncology [facility] [place] Pager#[phone] documented in this enco unter Plan of Treatment Not on filedocumented as of this encounter Visit Diagnoses + + | Diagnosis | + + | Metastatic breast cancer (HCC) - Primary | + + documented in this encounter"
--- OUTSIDE RECORDS SUMMARY | ~2019-09-12 | XMS | Encounter Summary ---
Demographics + + + | Address | [address] | | | [place] [address] | + + + | Home Phone | | + + + | Preferred Language | Unknown | + + + | Marital Status | | + + + | Muslim Affiliation | Unknown | + + + | Race | Unknown | + + + | Ethnic Group | Unknown | + + + Author + + + | Author | [facility] | | | and [place]eno[place] | + + + | Organization | [facility] [...] + | Matthew Ramirez | ECON | [address] | | | | | [place] | | | | | [address] | | + + + + + Care Team Providers + +------+ + | Care Packaging Mechanic Name | Role | Phone | [...] | | | unspecified | | [place] [address] | | | | | type | | Phone: | | | | | Chronic | | [phone] | | | | | abdominal | | Fax: | | | | | pain | | [phone] | | | | | Benzodiazepi | [...] | | | | | | | [place] | | | | | | | ESOPHAGOGAST | | | | | | | RODUODENOSCO | | | | | | | PY TRANSORAL | | | | | | | DIAGNOSTIC | | | | | | | [place] EGD | | | | | | | TRANSORAL | | | | | | | BIOPSY | | | | | | | SINGLE/MULTI | | | | | | | PLE [place] | | | | | | | COLONOSCOPY | | | | | | | FLX DX | | | | | | | W/COLLJ SPEC | | | | | | | WHEN PFRMD | | | | | | | [place] | | | | | | | COLONOSCOPY | | | | | | | W/BIOPSY | | | | | | | SINGLE/MULTI | | | | | | | PLE [place] | | | | | | | COLSC FLX | | | | | | | W/RMVL OF | | | | | | | TUMOR POLYP | | | | | | | LESION SNARE | | | | | | | TQ [place] | | | | | | [...] | | | | | [address] | [address] [facility] | | | | | [address] | [place] [address] | | | | | [address] | [phone] | | | | | [phone] | | | +--------+ + + + [...] 12/17/18 1622 by | | nicolas | [id number] catheter system; | Gris Davis RN | [...]
--- OUTSIDE RECORDS SUMMARY | ~2019-09-12 | XMS | Encounter Summary ---
Demographics + + + | Address | [address] | | | [place] [address] | + + + | Home Phone [...] + | Author | [facility] | | | and [place]eno[place] | + + + | Organization | [facility] [...] + | Matthew Ramirez | ECON | [address] | | | | | [place] | | | | | [address] | | + + + + + Care Team Providers + +------+ + | Care Senior Systems Engineer Name | Role | Phone [...] [facility] [place] [facility] | JACKIE [address] | [address] 2, 3, 4 | | | | [address] [place] | [facility], | | | | | [place], [place] | [place] [address] | | | | | [address] | [phone] | | | | | [phone] | | | +--------+---------+ + + + [...]
--- OUTSIDE RECORDS SUMMARY | ~2019-09-12 | XMS | Encounter Summary ---
Demographics + + + | Address | [address] | | | [place] [address] | + + + | Home Phone [...] + | Matthew Ramirez | CHRIS | [address] | | | | | [place] | | | | | [address] | | + + + + + | Nella Haque | ECON | Unknown | | + + + + + Care Team Providers + +------+ + | Care County Agricultural Agent Name | Role | Phone | + +------+ + | Long Copeland MD | PCP | | + +------+ + Encounter Details +--------+ + + + + | Date | Type | Department | Care Team | Description | +--------+ + + + + | 08/22/ | Outside | UNKNOWN DEPARTMENT | Other, Faculty | | | 2019 | Records | [address] [facility] | [phone] | | | | | [address] | | | | | | [place], [place] | | | | | | [address] | | | +--------+ + + + [...]
--- OUTSIDE RECORDS SUMMARY | ~2019-09-12 | XMS | Encounter Summary ---
Demographics + + + | Address | [address] | | | [place] [address] | + + + | Home Phone [...] | Author | [facility] | | | and Nenoana | + + + | Organization | [facility] [...] + | Matthew Ramirez | CHRIS | [address] | | | | | [place] | | | | | [address] | | + + + + + Care Team Providers + +------+ + | Care Instructor Industrial Design Name | Role | Phone | + +------+ + PCP | Unavailable | + +------+ + Encounter Details +--------+ + + + + | Date | Type | Department | Care Team | Description | +--------+ + + + + | 06/27/ | Hospital | [facility] | | | | 2003 | Encounter | MED CTR XRAY [address] | | | | | | [address] | | | | | | [place] [address] | | | | | | [phone] | | | +--------+ + + + [...]
--- OUTSIDE RECORDS SUMMARY | ~2019-09-12 | XMS | Encounter Summary ---
Demographics + + + | Address | [address] | | | [place] [address] | + + + | Home Phone | | + + + | Preferred Language | Unknown | + + + | Marital Status | | + + + | Catholic Affiliation | NRP | + + [...] + | Matthew Ramirez | CHRIS | [address] | | | | | [place] | | | | | [address] | | + + + + + | Nella Haque | ECON | Unknown | | + + + + + Care Team Providers + +------+ + | Care Civil Engineering Project Manager Name | Role | Phone [...] [address] | Coordination | | | | [facility] | [place], [place] | | | | | for Health and | [address] | | | | | Healing [address] | [phone] | | | | | [place], [place] | | | | | | [address] | | | | | | [phone] | | | +--------+ + + + [...]
--- OUTSIDE RECORDS SUMMARY | ~2019-09-12 | XMS | Encounter Summary ---
Demographics + + + | Address | [address] | | | [place] [address] | + + + | Home Phone [...] + | Matthew Ramirez | CHRIS | [address] | | | | | [place] | | | | | [address] | | + + + + + | Nella Lowery ECON | Unknown | | + + + + + Care Team Providers + +------+ + | Care Silver Solution Mixer Name | Role | Phone | [...] 2019 | Requisition | [address] [facility] | [address] | | | | | Rd [place], [place] | [place], [place] | | | | | [address] | [address] | | | | | | [phone] | | | | | | | [...] + + + + | PINKY | [address] | [place] [address] | | | DIAGNOSTIC | [address] | | | | LABORATORIES | | | | + + + + + documented in this encounter Visit Diagnoses + + | Diagnosis | + + | Encounter for other screening for genetic and chromosomal anomalies | + + documented in this encounter"
--- OUTSIDE RECORDS SUMMARY | ~2019-09-12 | XMS | Encounter Summary ---
Demographics + + + | Address | [address] | | | [place] [address] | + + + | Home Phone [...] | Author | [facility] | | | and Nenoana | + + + | Organization | [facility] | | [...] + | Matthew Ramirez | ECON | [address] | | | | | [place] | | | | | [address] | | + + + + + Care Team Providers + +------+ + | Care Alumina Plant Supervisor Name | Role | Phone [...] | | cancer | Luis Richards, | [place] | | | | | metastasized | MD [address] | [place], [place] | | | | | to multiple | [address] | [address] | | | | | sites, left | [place], | Phone: | | | | | (HCC) | [place] [address] | [phone] | | | | | Procedures | Phone: | Fax: | | | | | PET CT Skull | [phone] | [phone] | | | | | Base To Mid | Fax: | | | | | | Thigh | [phone] | | +--------+--------+ + + + + [...] | | cancer | Luis Richards, | [place] | | | | | metastasized | MD [address] | [place], [place] | | | | | to multiple | [address] | [address] | | | | | sites, left | [place], | Phone: | | | | | (HCC) | [place] [address] | [phone] | | | | | Procedures | Phone: | Fax: | | | | | PET CT Skull | [phone] | [phone] | | | | | Base To Mid | Fax: | | | | | | Thigh | [phone] | | +--------+--------+ + + + + Encounter Details +--------+ + + + + | Date | Type | Department | Care Team | Description | +--------+ + + + + | 07/21/ | Hospital | [facility] | [place], | Breast cancer | | 2020 | Encounter | MED CTR PET SCAN | Luis Richards MD [address] | metastasized to | | | | [address] [place] | [address] [place] | multiple sites, left | | | | [place] [address] | [place] [address] | (HCC) | | | | [phone] | [phone] | | | | | | | [...] millicur | | | | Intravenous, ONCE, [facility] 07/22/19 at | | AM PDT | ies | | | | 0930, For 1 dose | | | | | | + +--------+ + +------+------+ +---+---+ | | | +---+---+ documented in this encounter
--- OUTSIDE RECORDS SUMMARY | ~2019-09-12 | XMS | Encounter Summary ---
Demographics + + + | Address | [address] | | | [place] [address] | + + + | Home Phone [...] + | Matthew Ramirez | CHRIS | [address] | | | | | [place] | | | | | [address] | | + + + + + | Nella Haque | ECON | Unknown | | + + + + + Care Team Providers + +------+ + | Care Supervisor Char House Name | Role | Phone | + [...] Ave | (Tamoxifen) | | | | [facility] | [place], [place] | | | | | [facility] and | [address] | | | | | Healing [address] | [phone] | | | | | Ave [place], [place] | | | | | | [address] | | | | | | [phone] | | | +--------+--------+ + + + [...]
--- OUTSIDE RECORDS SUMMARY | ~2019-09-12 | XMS | Encounter Summary ---
Demographics + + + | Address | [address] | | | [place] [address] | + + + | Home Phone [...] + | Matthew Ramirez | CHRIS | [address] | | | | | [place] | | | | | [address] | | + + + + + | Nella Haque | ECON | Unknown | | + + + + + Care Team Providers + +------+ + | Care Trap Puller Name | Role | Phone | [...] | | | | | | | [facility] | | | | | | | [facility] | | | | | | | [facility] | | | | | | | ([facility]) | | | | | | | [place], | | | | | | | [place] [address] | | | | | | | Phone: | | | | | | | [phone] | | | | | | | Fax: | | | | | | | [phone] | +--------+--------+ + + + + Encounter Details +--------+ + + + + | Date | Type | Department | Care Team | Description | +--------+ + + + + | 10/26/ | Hospital | [facility] [address] | Avis Rios | | | 2010 | Encounter | [address] | MD Gillian [address] | | | | | [facility] | [address] | | | | | [facility] | [place], [place] | | | | | ([facility]) | [address] | | | | | [place], [place] | [phone] | | | | | [address] | | | | | | [phone] | | | +--------+ + + + [...] Discharge Instructions Instructions Laura Mendes RN - 10/26/2010[facility] Transvaginal Suburethral Sling WHAT YOU SHOULD KNOW A transvaginal suburethral sling is surgery to treat stress incontinence (bg-HAH-dib-nasima) . The goal of surgery is to [...] TO REACH YOUR DOCTOR Friday call the [facility] at [phone] After hours, weekend and holidays call the Hospital Business Attorney at [phone]. Ask them to page your doctor. RETURN [...] nostril | | | | | | [place] | once daily. | | | | [...]
--- OUTSIDE RECORDS SUMMARY | ~2019-09-12 | XMS | Encounter Summary ---
Demographics + + + | Address | [address] | | | [place] [address] | + + + | Home Phone [...] [facility] | | | and Nenoana | + + + | Organization | [facility] | [...] + | Matthew Ramirez | CHRIS | [address] | | | | | [place] | | | | | [address] | | + + + + + Care Team Providers + +------+ + | Care Weapons Officer Name | Role | Phone | + +------+ + PCP | Unavailable | + +------+ + Encounter Details +--------+ + + + + | Date | Type | Department | Care Team | Description | +--------+ + + + + | 11/27/ | Hospital | [facility] | | | | 1999 | Encounter | MED CTR GENERIC OP | | | | | | CONV DEPT [address] | | | | | | [place], | | | | | | [place] [address] | | | | | | [phone] | | | +--------+ + + + [...]
--- OUTSIDE RECORDS SUMMARY | ~2019-09-12 | XMS | Encounter Summary ---
Demographics + + + | Address | [address] | | | [place] [address] | + + + | Home Phone [...] + | Author | [facility] | | | and Nenoana | + + + | Organization | [facility] | [...] + | Matthew Ramirez | ECON | [address] | | | | | [place] | | | | | [address] | | + + + + + Care Team Providers + +------+ + | Care Prosthetics Technician Name | Role | Phone | [...] + + | 01/24/ | Telephone | [facility] | Matthew Shukla MD | Results, Pathology | | 2019 | | GASTROENTEROLOGY | [address] [facility] | | | | | [address] [facility] | [place], [place] | | | | | [address] [place], [place] | [address] | | | | | [address] | [phone] | | | | | [phone] | | | +--------+ + + + [...]
--- OUTSIDE RECORDS SUMMARY | ~2019-09-12 | XMS | Encounter Summary ---
Demographics + + + | Address | [address] | | | [place] [address] | + + + | Home Phone [...] + | Matthew Ramirez | CHRIS | [address] | | | | | [place] | | | | | [address] | | + + + + + | Nella Haque | ECON | Unknown | | + + + + + Care Team Providers + +------+ + | Care Ladle Handler Name | Role | Phone | [...] | | | | ma (HCC) | [place], | | | | | | Procedures | [place] | | | | | | CT ABDOMEN | [address] | | | | | | AND PELVIS W | Phone: | | | | | | IV CONTRAST | [phone] | | | | | | | Fax: | | | | | | | [phone] | | + +--------+ + + + [...] | | | | ma (HCC) | [place], | | | | | | Procedures | [place] | | | | | | CT ABDOMEN | [address] | | | | | | AND PELVIS W | Phone: | | | | | | IV CONTRAST | [phone] | | | | | | | Fax: | | | | | | | [phone] | | + +--------+ + + + [...] | | | [address] Mailcode: | [place], [place] | | | | | [address] | [address] | | | | | Health and Healing, | [phone] | | | | | [address] | | | | | | Floor [facility] [place] | | | | | | [address] | | | | | | [phone] | | | +--------+ + + + [...] nostril | | | | | | [place] | once daily. | | | | [...] (H) | 0.6 - 1.1 mg/dL | [facility]YULI Bermudez [facility], | | | POC | | [...] + + | DANISHA FARIAS | [address] [facility] | [place] [address] | | | OF CARE TESTS | [...]
--- OUTSIDE RECORDS SUMMARY | ~2019-09-12 | XMS | Encounter Summary ---
Demographics + + + | Address | [address] | | | [place] [address] | + + + | Home Phone [...] Author | [facility] | | | and Nenoana | + + + | Organization | [facility] | | | [...] + | Matthew Ramirez | CHRIS | [address] | | | | | [place] | | | | | [address] | | + + + + + Care Team Providers + +------+ + | Care Assistant Professor Of Radiology Name | Role | Phone | + +------+ + PCP | Unavailable | + +------+ + Encounter Details +--------+ + + + + | Date | Type | Department | Care Team | Description | +--------+ + + + + | 06/27/ | Hospital | [facility] | | | | 2003 | Encounter | MED CTR XRAY [address] | | | | | | [address] | | | | | | [place] [address] | | | | | | [phone] | | | +--------+ + + + [...]
--- OUTSIDE RECORDS SUMMARY | ~2019-09-12 | XMS | Clinical Summary ---
Demographics + + + | Address | [address] | | | [place] [address] | + + + | Home Phone [...] Author | [facility] | | | and Nenoana | + + + | Organization | [facility] | [...] + | Matthew Ramirez | ECON | [address] | | | | | [place] | | | | | [address] | | + + + + + Care Team Providers + +------+ + | Care Perioperative Manager Name | Role | Phone | [...] Repeat colonoscopy January 26, 2018 | | ([facility]) notable for a tubular adenoma.5. Admit [facility], October 18, 2017 | | for partial small bowel obstruction. CT scan of abdomen/pelvis | | with contrast demonstrated small bowel obstruction. Symptoms | | resolved with conservative management.6. Presentation on July | | 2018 with abdominal pain, nausea and one episode of vomiting. | | CT abdomen/pelvis with contrast August 05, 2018 at [place] | | [facility] in [facility] demonstrated no acute inflammatory | | changes in the abdomen or pelvis.7. EGD/ Colonoscopy with random | | biopsies by Dr. Shukla, [facility] on December 17, 2018; Specimen # | | [id number] ([employer] "A-Mucosa, stomach, | | biopsy-infiltrating gastric adenocarcinoma." Specimens | | B-duodenum, C-antrum, D-gastroesophageal junction, E-ascending | | colon, F-transverse colon, G-descending colon, and H, sigmoid | | colon were all negative for invasive malignancy.8. CT | | chest/abdomen/pelvis on December 31, 2018; No concerning gastric | | mass, no findings to suggest metastatic disease.9. Admit to [facility] | | on May 06, 2019 for small bowel obstruction, with laparotomy | | and extensive lysis of adhesions May 07, 2019 ([place]). | | Last Assessment & Plan: Ashly Ramirez is referred by | | Matthew Shukla Md [address] | | [address] for evaluation and management of gastric adenocarcinoma.I | | met with Ashly and her daughter Nella, on 01/05/2019 at the | | [facility]. The patient's history | | [...] pathological findings with Dr. 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 Dr. Shukla agreed that the lack of endoscopic or | | radiographic findings is atypical and agreed that endoscopic | | ultrasound is indicated for further evaluation. Dr. Shukla' office | | will co-ordinate endoscopic ultrasound with [facility] | | Group in [place]. I will follow up with Ashly Ramirez after | | her next procedure to review the results and to establish a plan | | of management. | + + + + + | Rectal bleeding | 12/16/2018 | + + + + + | Overview: Added automatically from request for surgery | | [id number] | + + + + + | Diarrhea, unspecified type | 12/16/2018 | + + + + + | Overview: Added automatically from request for surgery | | [id number] | + + + + + | Chronic abdominal pain | 12/16/2018 | + + + + + | Overview: Added automatically from request for surgery | | [id number] | + + + + + | Benzodiazepine dependence | 12/16/2018 | + + + + + | Overview: Added automatically from request for surgery | | [id number] | + + + + + | Narcotic dependence, episodic use | 12/16/2018 | + + + + + | Overview: Added automatically from request for surgery | | [id number] | + + + + + | LUQ pain | 12/16/2018 | + + + + + | Overview: Added automatically from request for surgery | | [id number] | + + + + + | Alternating constipation and diarrhea | 12/16/2018 | + + + + + | Overview: Added automatically from request for surgery | | [id number] | + + + + + | Hematochezia | 12/16/2018 | + + + + + | Overview: Added automatically from request for surgery | | [id number] | + + + + + | Weight loss, unintentional | 12/16/2018 | + + + + + | Overview: Added automatically from request for surgery | | [id number] | + + + + + | [...] | + + + + | INFLUENZA, [id number], | 04/29/2009 | | | UNSPECIFIED | [...] | Left: | CONMED | | | [id number] | | on 07/04/2017 by Prakash, | | Toe | JOHN- [address] | | | [address] | | Jose Sanon DPM at [facility] | | | | | | /[id number] | | [facility] | | | | | | [id number] | | | | | | | | 648002 | | | | | | | | 210122 | | | | | | | | 356676 | | | | | | | | 856339 | | | | | | | | | | | | | | | | /88270 | | | | | | | | 6 | + +------+--------+ +--------+--------+--------+ | .045 C-WireImplanted: Qty: 1 | | Left: | CONMED | | | [id number] | | on 07/04/2017 by Prakash, | | Toe | CONMED | | | 91355 | | [facility] D[facility] | | | JOHN. | | | /[id number] | | [facility] | | | | | | 612655 | | | | | | | | 083780 | | | | | | | | 716019 | | | | | | | | 150949 | | | | | | | | 835555 | | | | | | | | | | | | | | | | /18603 | | | | | | | | 7 | + +------+--------+ +--------+--------+--------+ | .045 C-WireImplanted: Qty: 1 | | Left: | CONMED | | | [id number] | | on 07/04/2017 by Prakash, | | Toe | CONMED | | | 48128 | | Jose Sanon DPM at [facility] | | | JOHN. | | | /[id number] | | [facility] | | | | | | 457657 | | | | | | | | 044647 | | | | | | | | 215766 | | | | | | | | 049445 | | | | | | | | 449779 | | | | | | | | | | | | | | | | /70017 | | | | | | | [...] INC. | | | 10 | | [facility] | | | | | | /+$$80 | | | | | | | | [id number] | | | | | | | | 793251 | | | | | | | | 77U | | | | | | | | /30123 | | | | | | | | 817 | + +------+--------+ +--------+--------+--------+ | Pip Trevor Implanted: Qty: 1 on | | Right: | ARTHREX | | 11/08/ | AR-415 | | 02/13/2018 by Prakash, | | Toe | ARTHREX | | 2022 | 4PS-30 | | Jose Sanon DPM at [facility] | | | INC. | | | 10 | | [facility] | | | | | | /+$$80 | | | | | | | | [id number] | | | | | | | | 563336 | | | | | | | | 47$ | | | | | | | | /86692 | | | | | | | [...] Toe | ARTHREX | | 2020 | /[id number] | | Qty: 1 on 02/13/2018 at [facility] | | | INC. | | | [id number] | | [facility] | | | | | | [id number] | | | | | | | | [id number] | | | | | | | | 286746 | | | | | | | | 279677 | | | | | | | | 761 | | | | | | | | /83895 | | | | | | | [...] + +--------+ | MEDICARE | MEDICA | [id number] | 10/11/19 | [phone] | | Medica | | | RE | | 04-Pre | 5 | | re | | | PART A | | sent | | | | | | AND B | | | | | | + +--------+ +--------+ + +--------+ | MODA | MODA | [id number] | 05/12/19 | [phone] | [address] | Indemn | | | HEALTH | | 17-Pre | 9 | [phone] | ity | | | MDCR | | sent | | [place], | | | | [place] | | | | [place] [address] | | + +--------+ +--------+ + +--------+ | MEDICARE | MEDICA | [id number] | 10/11/19 | [phone] | | Medica | | | RE | | 04-Pre | 5 | | re | | | PART A | | sent | | | | | | AND B | | | | | | + +--------+ +--------+ + +--------+ | MODA | MODA | [id number] | 05/12/19 | [phone] | [address] | Indemn | | | HEALTH | | 19-Pre | 9 | [address] | ity | | | MDCR | | sent | | [place], | | | | [place] | | | | [place] [address] | | + +--------+ +--------+ + +--------+ + +--------+ +--------+ + + | Guarantor Name | Accoun | Relation to | Date | Phone | Billing Address | | | t Type | Patient | of | | | | | | | | | | + +--------+ +--------+ + + | Ashly Ramirez | Person | Self | [birth year] | [address] | | | al/Fam | | 1941 | [phone] | [place], [place] | | | amrik | | | 9 (Home) | [address] | + +--------+ +--------+ + + | Ashly Ramirez | Person | Self | [birth year] | | [address] | | | al/Fam | | 1941 | [phone] | [place], [place] | | | [place] | | | 9 (Home) | [address] | + +--------+ +--------+ + + Advance Directives + + + + + | Type | Date Recorded | Patient | Explanation | | | | Last Model Maker | | + + + + + | Power of | | | | | Auto Body Worker | | | | + + + [...]
--- OUTSIDE RECORDS SUMMARY | ~2019-09-12 | XMS | Encounter Summary ---
Demographics + + + | Address | [address] | | | [place] [address] | + + + | Home Phone [...] + | Matthew Ramirez | CHRIS | [address] | | | | | [place] | | | | | [address] | | + + + + + | Nella Haque | ECON | Unknown | | + + + + + Care Team Providers + +------+ + | Care Finishing Area Operator Name | Role | Phone | [...] | | | | | | | [place] | | | | | | | [address] | | | | | | | [address] | | | | | | | [facility] | | | | | | | [place], [place] | | | | | | | [address] | | | | | | | Phone: | | | | | | | [phone] | | | | | | | Fax: | | | | | | | [phone] | +--------+--------+ + + + + Encounter [...] | | | [address] | [facility] | | | | | [address] | [place], [place] | | | | | Pavilion, 7th floor | [address] | | | | | [place], [place] | [phone] | | | | | [address] | | | | | | [phone] | | | +--------+ + + + [...]
--- OUTSIDE RECORDS SUMMARY | ~2019-09-12 | XMS | Encounter Summary ---
Demographics + + + | Address | [address] | | | [place] [address] | + + + | Home Phone [...] + | Author | [facility] | | | and Nenoana | + + + | Organization | [facility] | | [...] + | Matthew Ramirez | CHRIS | [address] | | | | | [place] | | | | | [address] | | + + + + + Care Team Providers + +------+ + | Care Database Marketing Analyst Name | Role | Phone | + +------+ + PCP | Unavailable | + +------+ + Encounter Details +--------+ + + + + | Date | Type | Department | Care Team | Description | +--------+ + + + + | 12/30/ | Hospital | [facility] | | | | 2001 | Encounter | MED CTR XRAY [address] | | | | | | [address] | | | | | | [place] [address] | | | | | | [phone] | | | +--------+ + + + [...]
--- OUTSIDE RECORDS SUMMARY | ~2019-09-12 | XMS | Encounter Summary ---
Demographics + + + | Address | [address] | | | [place] [address] | + + + | Home Phone [...] + | Matthew Ramirez | CHRIS | [address] | | | | | [place] | | | | | [address] | | + + + + + | Nella Haque | ECON | Unknown | | + + + + + Care Team Providers + +------+ + | Care Extension Course Coordinator Name | Role | Phone | [...] | | | | CONSULT TO | [facility], | and [facility] | | | | | HEMATOLOGY / | [place] | [address] | | | | | ONCOLOGY | [address] | Ave | | | | | PRACTICE | Phone: | [place], [place] | | | | | | [phone] | [address] | | | | | | Fax: | Phone: | | | | | | [phone] | [phone] | | | | | | | Fax: | | | | | | | [phone] | + +---------+ + + + + [...] | metastasized to | | | | [facility] | [facility] [place] | multiple sites, | | | | for Health and | [address] | unspecified | | | | Healing [address] | [phone] | laterality (HCC) | | | | Ave [place], [place] | | (Primary Dx) | | | | [address] | | | | | | [phone] | | | +--------+---------+ + + + [...] due to this pain. She lives in [place] with her , whom she cares for [...] adenocarcinoma -saw Dr. Antony of oncology at [place], discussed getting EUS for further evaluati on [...] 300 mg by mouth three times daily. Sbzeaoanwfj-Ygdmtwnvb-Ihb C-Mn (GLUCOSAMINE CHONDROITIN MAXSTR) 500-400 mg Oral [...] the evening. triamcinolone 55 mcg Nasal Aerosol, Celestine, Instill 2 Sprays into each nostril once [...] file Gets together: Not on file Attends latter day service: Not on file Active member of club or organization: Not on file Attends meetings of clubs or organizations: Not on file Relationship status: Not on file Other Topics Concern Not on file Social History Narrative Lives with partner in [facility]- 34yrs. Son in [place]. 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 Now traveling [facility]. Family History Problem Relation Cancer Mother [...] Diagnosis 1. Multiple specimens A to F [id number]; 01/13/19): A. Stomach, antrum at great curvature, [...] Pathology Resident Bonifacio Resendez MD Pathologist Pathology, [facility] My electronic signature indicates that I have [...] Ramona Taylor MD Hematology/Oncology Fellow PGY-5 Pager [phone] Associated attestation - Rodriguez Bower MD - [...] contact their office Rodriguez Bower MD, MS ID#[id number] Commercial Decoratordiabetes manager Division of Hematology and Medical Oncology [facility] [phone] documented in this encounter Plan of Treatment Not on filedocumented as of this encounter Visit Diagnoses + + | Diagnosis | + + | Breast cancer metastasized to multiple sites, unspecified laterality (HCC) - Primary | + + documented in this encounter"
--- OUTSIDE RECORDS SUMMARY | ~2019-09-12 | XMS | Encounter Summary ---
Demographics + + + | Address | [address] | | | [place] [address] | + + + | Home Phone [...] | Author | [facility] | | | and Nenoana | + + + | Organization | [facility] | | [...] + | Matthew Ramirez | ECON | [address] | | | | | [place] | | | | | [address] | | + + + + + Care Team Providers + +------+ + | Care Process Tank Tender Name | Role | Phone [...] | HOSPITAL OR INTRA OP | JACKIE [address] | 4th Digits with | | | | [address] [place] | [place], | Impalnt Revision | | | | [place], [place] | [place] [address] | | | | | [address] | [phone] | | | | | [phone] | | | +--------+---------+ + + + [...]
--- OUTSIDE RECORDS SUMMARY | ~2019-09-12 | XMS | Clinical Summary ---
Demographics + + + | Address | [address] | | | [place] [address] | + + + | Home Phone [...] + | Matthew Ramirez | ECON | [address] | | | | | [place] | | | | | [address] | | + + + + + | Nella Haque | ECON | Unknown | | + + + + + Care Team Providers + +------+ + | Care Interceptor Operator Name | Role | Phone | + +------+ + | Long Copeland MD | PCP | | + +------+ + Source Comments MEÑO is fully live on both [facility] and [facility] Allergies + + + [...] | | | | e | | Ozan | once daily. | | | | [...] | | | | | | | [address] | | + +--------+ +--------+ + +--------+ | MODA MEDICARE | MODA | xxxxxxxxx | 05/12/19 | [phone] | [address] | [address] | | SUPPLEMENT | MEDICA | | 19-Pre | 4 | [id number] | | | | RE | | sent | | [place], | | | | SUPPLE | | | | [place] [address] | | | | MENT | | [...] Person | Self | [birth year] | [address] | | | al/Rene | | 193 | [phone] | [place] | | | amrik | | | 9 (Home) | [address] | + +--------+ +--------+ + + Advance [...]
--- OUTSIDE RECORDS SUMMARY | ~2019-09-12 | XMS | Encounter Summary ---
Demographics + + + | Address | [address] | | | [place] [address] | + + + | Home Phone [...] | Author | [facility] | | | and Nenoana | + + + | Organization | [facility] | [...] + | Matthew Ramirez | CHRIS | [address] | | | | | [place] | | | | | [address] | | + + + + + Care Team Providers + +------+ + | Care Electronic Game Developer Name | Role | Phone | + +------+ + PCP | Unavailable | + +------+ + Encounter Details +--------+ + + + + | Date | Type | Department | Care Team | Description | +--------+ + + + + | 09/06/ | Hospital | [facility] | | | | 2004 | Encounter | MED CTR XRAY [address] | | | | | | [address] | | | | | | [place] [address] | | | | | | [phone] | | | +--------+ + + + [...]
--- OUTSIDE RECORDS SUMMARY | ~2019-09-12 | XMS | Encounter Summary ---
Demographics + + + | Address | [address] | | | [place] [address] | + + + | Home Phone [...] + | Matthew Ramirez | ECON | [address] | | | | | [place] | | | | | [address] | | + + + + + | Nella Haque | ECON | Unknown | | + + + + + Care Team Providers + +------+ + | Care Towel Sorter Name | Role | Phone | + [...]
--- OUTSIDE RECORDS SUMMARY | ~2019-09-12 | XMS | Encounter Summary ---
Demographics + + + | Address | [address] | | | [place] [address] | + + + | Home Phone [...] Author | [facility] | | | and Nenoana | + + + | Organization | [facility] | | | and Nenoana | [...] + | Matthew Ramirez | ECON | [address] | | | | | [place] | | | | | [address] | | + + + + + Care Team Providers + +------+ + | Care Rn Transplant Name | Role | Phone | + [...] | | | | Gastric mass | [place], [place] | [place] | | | | | Procedures | [address] | [address] Phone: | | | | | Urgent- | Phone: | [phone] | | | | | EGD + EUS | [phone] | Fax: | | | | | NEXT WEEK | Fax: | [phone] | | | | | | [phone] | | +--------+ + + + + [...] | | | [address] [facility] | [place], [place] | (Primary Dx) | | | | [address] [place] | [address] | | | | | [address] | [phone] | | | | | [phone] | | | +--------+ + + + [...] Shukla notified patient needed Urgent referral to [facility] for Eval Egd/EUS of gastric adenocarcinoma [...] Gastroenterology | | | | | | ([place]) | | | | | + + +--------+ + + documented as of this encounter Visit Diagnoses + + | Diagnosis | + + | Gastric adenocarcinoma (HCC) - Primary Malignant neoplasm of stomach, unspecified | | site | + + documented in this encounter"
--- OUTSIDE RECORDS SUMMARY | ~2019-09-12 | XMS | Encounter Summary ---
Demographics + + + | Address | [address] | | | [place] [address] | + + + | Home Phone [...] + | Matthew Ramirez | CHRIS | [address] | | | | | [place] | | | | | [address] | | + + + + + | Nella Haque | ECON | Unknown | | + + + + + Care Team Providers + +------+ + | Care Acid Leveler Name | Role | Phone | + [...] (call back requested | | | | [facility] | [place], [place] | ) | | | | for Health and | [address] | | | | | Healing [address] | [phone] | | | | | Ave [place], [place] | | | | | | [address] | | | | | | [phone] | | | +--------+ + + + [...]
--- OUTSIDE RECORDS SUMMARY | ~2019-09-12 | XMS | Encounter Summary ---
Demographics + + + | Address | [address] | | | [place] [address] | + + + | Home Phone [...] Author | [facility] | | | and Nenoana | + + + | Organization | [facility] | [...] + | Matthew Ramirez | CHRIS | [address] | | | | | [place] | | | | | [address] | | + + + + + Care Team Providers + +------+ + | Care Honing Machine Operator Tool Name | Role | Phone | + +------+ + PCP | Unavailable | + +------+ + Encounter Details +--------+ + + + + | Date | Type | Department | Care Team | Description | +--------+ + + + + | 03/12/ | Hospital [facility] | | | [facility] - | Encounter | MED CTR OP REHAB | | | | | | [address] | | | | 04/17/ | | [place] [address] | | | | 2005 | | [phone] | | | +--------+ + + + [...]
--- OUTSIDE RECORDS SUMMARY | ~2019-09-12 | XMS | Encounter Summary ---
Demographics + + + | Address | [address] | | | [place] [address] | + + + | Home Phone [...] Author | [facility] | | | and Nenoana | + + + | Organization | [facility] | [...] + | Matthew Ramirez | ECON | [address] | | | | | [place] | | | | | [address] | | + + + + + Care Team Providers + +------+ + | Care Travel Professional Name | Role | Phone | [...] | | | [address] [place] | [place] [address] | | | | | [place] [address] | | | | | | [phone] | | | +--------+ + + + [...]
--- OUTSIDE RECORDS SUMMARY | ~2019-09-12 | XMS | Encounter Summary ---
Demographics + + + | Address | [address] | | | [place] [address] | + + + | Home Phone [...] + | Author | [facility] | | | and Nenoana | + + + | Organization | [facility] | | | and Nenoana | [...] + | Matthew Ramirez | ECON | [address] | | | | | [place] | | | | | [address] | | + + + + + Care Team Providers + +------+ + | Care Cylinder Machine Operator Name | Role | Phone [...] + + | 12/18/ | Telephone | [facility] | Matthew Shukla MD | Sore Throat | | 2019 | | GASTROENTEROLOGY | [address] [facility] | | | | | [address] [facility] | [place], [place] | | | | | [address] [place], [place] | [address] | | | | | [address] | [phone] | | | | | [phone] | | | +--------+ + + + [...]
--- OUTSIDE RECORDS SUMMARY | ~2019-09-12 | XMS | Encounter Summary ---
Demographics + + + | Address | [address] | | | [place] [address] | + + + | Home Phone [...] | [facility] | | | and Nenoana | + + + | Organization | [facility] | | [...] + | Matthew Ramirez | ECON | [address] | | | | | [place] | | | | | [address] | | + + + + + Care Team Providers + +------+ + | Care Pie Icer Machine Name | Role | Phone | [...] / | Diagnoses | Gayla | [facility] | | | Services | General | 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 | General | | | Required | Surgery | adenocarcino | [address] | | | | [address] ([facility]) | [address] | [address] | | | | | | [place], [place] | [place], | | | | | | [address] | [place] [address] | | | | | | Phone: | Phone: | | | | | | [phone] | [phone] | | | | | | Fax: | Fax: | | | | | | [phone] | [phone] | +--------+ + + + + + Encounter Details +--------+---------+ + + + | Date | Type | Department | Care Team | Description | +--------+---------+ + + + | 01/07/ | Office | [facility] | Ana Mendez MD | Gastric | | 2019 | Visit | SURGERY [address] | [address] [facility] | adenocarcinoma (HCC) | | | | [place], [place] | [place] [address] | (Primary Dx) | | | | [address] | [phone] | | | | | [phone] | | | +--------+---------+ + + + [...] adenoma. COMMENT: A -- As part of [employer]' Quality Improvement Program, this portion of the case h as been reviewed by another member of our pathology staff with subspecialty training in lisa rointestinal pathology. Results called to Dr. Shukla office ([place]) 12/24/18 10:15 AM. Discussed results on specimen [...] 4th Digits with Impalnt Revision; Surgeon: Jose aRndall DPM; Location: [facility] BLADDER REPAIR 1971 BLADDER SUSPENSION 2007 CARPAL TUNNEL RELEASE Bilateral CATARACT REMOVAL Right 03/2016 CHOLECYSTECTOMY, LAPAROSCOPIC 1997 COLECTOMY 2004 recurrent diverticulitis COLONOSCOPY 01/2018 One diminutive polyp COLONOSCOPY N/A 12/17/2018 Procedure: COLONOSCOPY; Surgeon: Matthew Shukla MD; Location: [facility] MEDICAL PROCEDURE UNIT FINGER SURGERY Left 2007 Thumb surgery for osteoarthritis FINGER SURGERY Left 11/2008 FINGER SURGERY Right 04/2012 Thumb surgery HAMMER TOE SURGERY Right 03/06/2017 Procedure: Correction Hammer Toes 2nd , 3rd, and 4th Toes; Surgeon: ANNIE Cuevas; Location: [facility] SURGERY HAMMER TOE SURGERY Left 07/04/2017 Procedure: CORRECTION HAMMERTOES 2, 3, 4; Surgeon: Jose Randall DPM; Location: [facility] [place] [facility] HAMMER TOE SURGERY Left 2018 x3 KNEE ARTHROSCOPY Right 2001 PUBOVAGINAL SLING 10/16/2010 TVT Retropubic sling at [facility] SIGMOID COLECTOMY 12/20/2002 Franck Davis MD - [facility] AND O 1996 TONSILLECTOMY AND ADENOIDECTOMY 1948 TOTAL KNEE ARTHROPLASTY Right 07/11/2011 TUBAL LIGATION 1976 UPPER GASTROINTESTINAL ENDOSCOPY N/A 12/17/2018 Procedure: EGD; Surgeon: Matthew Shukla MD; Location: [facility] MEDICAL PROCEDURE UNIT URETHROPEXY 07/11/2010 Revision sling [...] MCG tablet Take 800 mcg by mouth. Otifxfbidxh-Draqcucqk-Qll C-Mn (GLUCOSAMINE CHONDR 500 COMPLEX) CAPS 2 [...] has put in an urgent referral to [facility] erologist for a repeat EGD [...] this chart may have been created with [employer] voice recognition software. Occasi onal wrong-word or [...]
--- OUTSIDE RECORDS SUMMARY | ~2019-09-12 | XMS | Encounter Summary ---
Demographics + + + | Address | [address] | | | [place] [address] | + + + | Home Phone [...] + | Matthew Ramirez | CHRIS | [address] | | | | | [place] | | | | | [address] | | + + + + + | Nella Haque | ECON | Unknown | | + + + + + Care Team Providers + +------+ + | Care Link Machine Operator Name | Role | Phone [...] | | | | | | ma ([facility]) | [place], | | | | | | Procedures | [place] | | | | | [place] | [address] | | | | | | CONTRAST | Phone: | | | | | | | [phone] | | | | | | | Fax: | | | | | | | [phone] | | + +--------+ + + + [...] | | | | ma (HCC) | [place], | | | | | | Procedures | [place] | | | | | | [place] | [address] | | | | | | CONTRAST | Phone: | | | | | | | [phone] | | | | | | | Fax: | | | | | | | [phone] | | + +--------+ + + + [...] | | | [address] Mailcode: | [place], [place] | | | | | [address] | [address] | | | | | Health and Healing, | [phone] | | | | | [address] | | | | | | Floor [place], [place] | | | | | | [address] | | | | | | [phone] | | | +--------+ + + + [...] nostril | | | | | | [place] | once daily. | | | | [...]
--- OUTSIDE RECORDS SUMMARY | ~2019-09-12 | XMS | Encounter Summary ---
Demographics + + + | Address | [address] | | | [place] [address] | + + + | Home Phone [...] + | Matthew Ramirez | CHRIS | [address] | | | | | [place] | | | | | [address] | | + + + + + | Nella Haque | ECON | Unknown | | + + + + + Care Team Providers + +------+ + | Care Channeler Insole Name | Role | Phone | + [...] Villal[place] | Coordination | | | | [facility] | [place], [place] | | | | | for Health and | [address] | | | | | Healing [address] | [phone] | | | | | [place], [place] | | | | | | [address] | | | | | | [phone] | | | +--------+ + + + [...]
--- OUTSIDE RECORDS SUMMARY | ~2019-09-12 | XMS | Encounter Summary ---
Demographics + + + | Address | [address] | | | [place] [address] | + + + | Home Phone | | + + + | Preferred Language | Unknown | + + + | Marital Status | | + + + | Spiritism Affiliation | Unknown | + + + | Race | Unknown | + + + | Ethnic Group | Unknown | + + + Author + + + | Author | [facility] | | | and Nenoana | + + + | Organization | [facility] [...] + | Matthew Ramirez | ECON | [address] | | | | | [place] | | | | | [address] | | + + + + + Care Team Providers + +------+ + | Care Bead Supervisor Name | Role | Phone | [...] | | | [address] [place] | [place] [address] | | | | | [place] [address] | | | | | | [phone] | | | +--------+ + + + [...]
--- OUTSIDE RECORDS SUMMARY | ~2019-09-12 | XMS | Encounter Summary ---
Demographics + + + | Address | [address] | | | [place] [address] | + + + | Home Phone [...] | Author | [facility] | | | and Nenoana | + + + | Organization | [facility] [...] + | Matthew Ramirez | CHRIS | [address] | | | | | [place] | | | | | [address] | | + + + + + Care Team Providers + +------+ + | Care Electrical Logging Operator Name | Role | Phone | [...] [address] | | | | | | [place], [place] | | | | | | [address] | | | | | | [phone] | | | +--------+ + + + [...]
--- OUTSIDE RECORDS SUMMARY | ~2019-09-12 | XMS | Encounter Summary ---
Demographics + + + | Address | [address] | | | [place] [address] | + + + | Home Phone [...] + | Matthew Ramirez | CHRIS | [address] | | | | | [place] | | | | | [address] | | + + + + + | Nella Garland | ECON | Unknown | | + + + + + Care Team Providers + +------+ + | Care Sheep Or Calf Grader Name | Role | Phone | [...] | | | | | ONCOLOGY | [address] | Ave | | | | | PRACTICE | Phone: | [place], [place] | | | | | | [phone] | [address] | | | | | | Fax: | Phone: | | | | | | [phone] | [phone] | | | | | | | Fax: | | | | | | | [phone] | + +---------+ + + + + Encounter Details +--------+ + + + + | Date | Type | Department | Care Team | Description | +--------+ + + + + | 03/04/ | Conservation Planner | Surgical Oncology | Cristel Galicia MD | Tumor (Primary Dx) | | 2019 | | at [facility] [address] | [address] | | | | | Ave Mail Code: | [place], [place] | | | | | [facility] | [address] | | | | | and Healing, | [phone] | | | | | Building [address] | | | | | | [place], [place] | | | | | | [address] | | | | | | [phone] | | | +--------+ + + + [...]
--- OUTSIDE RECORDS SUMMARY | ~2019-09-12 | XMS | Encounter Summary ---
Demographics + + + | Address | [address] | | | [place] [address] | + + + | Home Phone [...] + | Author | [facility] | | | and Nenoana | + + + | Organization | [facility] | | [...] + | Matthew Ramirez | ECON | [address] | | | | | [place] | | | | | [address] | | + + + + + [...] | | | [place], [place] | [place] [address] | | | | | [address] | [phone] | | | | | [phone] | | | +--------+---------+ + + + [...] Care Everywhere.Foot Surgery: Maurice pace Fifth Toe (Hong Konger)Foot Surgery: Flexible and Rigid Hammertoes (H[place] Konger)Mallet, Hammer , and Claw Toes, Treating (Hong Konger)Mallet, Hammer, and Claw Toes, What Are (Hong Konger)document ed in this encounter Medications at Time [...]
--- OUTSIDE RECORDS SUMMARY | ~2019-09-12 | XMS | Encounter Summary ---
Demographics + + + | Address | [address] | | | [place] [address] | + + + | Home Phone [...] + + | Author | [facility] | | | and Nenoana | + + + | Organization | [facility] | | [...] + | Matthew Ramirez | ECON | [address] | | | | | [place] | | | | | [address] | | + + + + + Care Team Providers + +------+ + | Care Floor Waxer Name | Role | Phone | + [...] | | ma (HCC) | [address] | [place] | | | | | | [place] | [place], | | | | | | [address] | [place] [address] | | | | | | Phone: | Phone: | | | | | | [phone] | [phone] | | | | | | Fax: | Fax: | | | | | | [phone] | [phone] | +--------+ + + + + + [...] W | | | | | bhargav ([facility]) | [address] | [address] | | | | | | [place], [place] | [place], | | | | | | [address] | [place] [address] | | | | | | Phone: | Phone: | | | | | | [phone] | [phone] | | | | | | Fax: | Fax: | | | | | | [phone] | [phone] | +--------+ + + + + + Encounter Details +--------+ + + + + | Date | Type | Department | Care Team | Description | +--------+ + + + + | 01/05/ | Hospital | [facility] | Arpan, | Gastric | | 2019 | Encounter | MED CTR MEDICAL | Luis Richards MD [address] | adenocarcinoma | | | | ONCOLOGY CLINIC [address] | [address] [place] | (HCC); Malignant | | | | [address] [place] | [place] [address] | neoplasm of | | | | [place] [address] | [phone] | overlapping sites of | | | | [phone] | | stomach (HCC) | +--------+ + [...]
--- OUTSIDE RECORDS SUMMARY | ~2019-09-12 | XMS | Encounter Summary ---
Demographics + + + | Address | [address] | | | [place] [address] | + + + | Home Phone [...] + | Author | [facility] | | | and Nenoana | + + + | Organization | [facility] | [...] + | Matthew Ramirez | ECON | [address] | | | | | [place] | | | | | [address] | | + + + + + Care Team Providers + +------+ + | Care Operations Label Clerk Name | Role | Phone | [...] HOSPITAL OR INTRA OP | JACKIE [address]on [address] | [place] 2, 3, 4 | | | | [address] [place] | [facility], | | | | | [place], [place] | [place] [address] | | | | | [address] | [phone] | | | | | [phone] | | | +--------+---------+ + + + [...]
--- OUTSIDE RECORDS SUMMARY | ~2019-09-12 | XMS | Encounter Summary ---
Demographics + + + | Address | [address] | | | [place] [address] | + + + | Home Phone [...] + | Matthew Ramirez | ECON | [address] | | | | | [place] | | | | | [address] | | + + + + + | Nella Haque | ECON | Unknown | | + + + + + Care Team Providers + +------+ + | Care Competitive Intelligence Manager Name | Role | Phone | [...]
--- OUTSIDE RECORDS SUMMARY | ~2019-09-12 | XMS | Encounter Summary ---
Demographics + + + | Address | [address] | | | [place] [address] | + + + | Home Phone [...] + | Author | [facility] | | | and Nenoana | + + + | Organization | [facility] | [...] + | Matthew Ramirez | ECON | [address] | | | | | [place] | | | | | [address] | | + + + + + Care Team Providers + +------+ + | Care Dub Room Engineer Name | Role | Phone | [...] | | | | [K31.9] | | [address] Phone: | | | | | Procedures | | [phone] | | | | | AL | | Fax: | | | | | ESOPHAGOGAST | | [phone] | | | | | RODUODENOSCO | | | | | | | PY TRANSORAL | | | | | | | DIAGNOSTIC | | | | | | | AL EDG US | | | | | [...] + + | 01/13/ | Hospital | [facility] | Sukumar Stevenson MD | 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 | Encounter | [facility] | [address] [place] | of overlapping sites | | | | INTRA OP [address] | [address] [place] | of stomach (HCC) | | | | [address] [place] | [address] | | | | | [address] | | | | | | [phone] | | | +--------+ + + + [...] | | | LABORATORY | | Acct: [id number] Location: | [facility] | | [facility]; [facility] MEDICAL PROCEDURE UNIT POOL; [facility] | | | MEDICAL PROCEDURE UNIT POOL | | | Case #: [id number] Ordering: | | | SUKUMAR STEVENSON MD Client: [facility] | | | [facility] Copy To: | | | Printed: 01/20/2019 09:40 PDT | | | SURGICAL PATHOLOGY FINAL REPORTCollected: | | | Received: | | | Responsible Pathologist:01/13/2019 12:45 PDT | | | 01/13/2019 13:25 PDT [facility] | | | DIAGNOSIS:A. Gastric antrum at [...] fragments. | | | Mild inactive chronic gastritis.[facility]/SK 01/14/19 01:36 pmVerified | | | by: ANNABELLE FULLER MDVerify Date: 01/20/2019 09:40 [facility] | | | [facility] [address] | | | SURGICAL PATHOLOGY FINAL REPORTCollected: [...] H&E. The tumor cells express pancytokeratin and Mayr-3 (blocks D1, | | | E1, F1) [...] and their performance characteristics determined by [facility]. This test is used for clinical | | | purposes. It should not be regarded as investigational or for | | | research. [facility] is certified under the Clinical | | | Laboratory Improvement Amendments of 1988 (CLIA) as qualified to | | | perform high complexity clinical laboratory testing. | | + + + + + + + + | Performing | Address | City/State/Zipcode | Phone Number | | Organization | | | | + + + + + | [facility] | [address] | [place] [address] | | | [facility] | | | | | LABORATORY EZE | | | | + + + + + EUS Upper (01/13/2019 11:39 AM PDT) + + | Specimen | + + | | + + + + + | Narrative | Performed At | + + + | [facility] | [place] | | [facility] | [facility] | | [facility] | | | Patient Name: Ashly Ramirez Procedure | | | Date: 01/13/2019 11:39 AMMRN: [id number] | | | of : 1940 | [...] | TRACEMASTER | | Duration:172 msP Horizontal Bronaugh:28 degP Front Bronaugh:60 degQ Onset:512 | | | msQRSD Interval:136 msQT Interval:448 msQTcB:477 msQTcF:467 msQRS | | | Horizontal Bronaugh:150 degQRS Bronaugh:-35 degI-40 Horizontal Bronaugh:34 degI-40 | | | Front Bronaugh:74 degT-40 Horizontal Bronaugh:151 degT-40 Front Bronaugh:-77 degT | | | Horizontal Bronaugh:8 degT Wave Bronaugh:51 degS-T Horizontal Bronaugh:21 degS-T | | | Front Bronaugh:83 degSeverity:- ABNORMAL ECG -INTERP:SINUS | | | RHYTHMINTERP:VENTRICULAR PREMATURE COMPLEXINTERP:RBBB AND | | | LAFBINTERP:LEFT VENTRICULAR HYPERTROPHYElectronically signed by: | | | ANDREAS MAXWELL 01-18-2019 07:24:33 | | |QTcF:467 ms | | |QRS Horizontal Bronaugh:150 deg | | |QRS Bronaugh:-35 deg | | |I-40 Horizontal Bronaugh:34 deg | | |I-40 Front Bronaugh:74 deg | | |T-40 Horizontal Bronaugh:151 deg | | |T-40 Front Bronaugh:-77 deg | | |T Horizontal Bronaugh:8 deg | | |T Wave Bronaugh:51 deg | | |S-T Horizontal Bronaugh:21 deg | | |S-T Front Bronaugh:83 deg | | |Severity:- ABNORMAL ECG - [...] + + + + + | [facility] | [address] | [place] [address] | [phone] | + + + + + POC Glucose (01/13/2019 10:06 AM PDT) + + + + + + | Component | Value | Ref Range | Performed | Pathologist | | | | | At | Signature | + + + + + + | Glucose, | 111 (H)Comment: | 65 - 99 mg/dL | [facility] | | | POC | Performed by [facility] [address] | | [address] | | | | [address] [place] | | HEART | | | | [address] | | MEDICAL | | | | [...] + + | [facility] | [address] | [place] [address] | | | [facility] | | | | [...] scheduled: AC, NPO, Daytime | | | [id number] Use NIGHT DOSE for | | | doses scheduled: HS, 3AM, | | | Nighttime 7002-1892 If the BG is | | | [...]
--- OUTSIDE RECORDS SUMMARY | ~2019-09-12 | XMS | Encounter Summary ---
Demographics + + + | Address | [address] | | | [place] [address] | + + + | Home Phone [...] Author | [facility] | | | and [place] | + + + | Organization | [facility] | | [...] + | Matthew Ramirez | ECON | [address] | | | | | [place] | | | | | [address] | | + + + + + Care Team Providers + +------+ + | Care Home Care Giver Name | Role | Phone | + [...] | Gastric | [address] | [place] | | | | | adenocarcino | [facility] | [place], [place] | | | | | ma (HCC) | [place] | [address] | | | | | Procedures | [address] | Phone: | | | | | PET CT Skull | Phone: | [phone] | | | | | Base To Mid | [phone] | Fax: | | | | | Thigh | Fax: | [phone] | | | | | | [phone] | | +--------+--------+ + + + + [...] | Gastric | [address] | [place] | | | | | adenocarcino | [place], | [place], [place] | | | | | ma (HCC) | [place] | [address] | | | | | Procedures | [address] | Phone: | | | | | PET CT Skull | Phone: | [phone] | | | | | Base To Mid | [phone] | Fax: | | | | | Thigh | Fax: | [phone] | | | | | | [phone] | | +--------+--------+ + + + + Encounter Details +--------+ + + + + | Date | Type | Department | Care Team | Description | +--------+ + + + + | 02/18/ | Hospital | [facility] | Cristel Galicia MD | Tumor; Gastric | | 2019 | Encounter | MED CTR PET SCAN | [address] | adenocarcinoma (HCC) | | | | [address] [place] | [place], [place] | | | | | [place] [address] | [address] | | | | | [phone] | [phone] | | | | | | | [...] the common bile duct. | | | Tfcs-uf-syly and in the right aspect of L4. [...] | |dilatation of the common bile duct. Nxbi-cq-gqvt and in the right aspect of L4. [...] | | of the common bile duct. Sjmm-et-znxm and in the right aspect of L4.IMPRESSION: [...] | |dilatation of the common bile duct. Ncjt-ys-eslo and in the right aspect of L4. [...]
[~2019-09-12 19:30] MED LIST changes: +CITRUCEL500 MG PO; +MIRALAX119 GM PO; +ZOFRAN8 MG PO
--- OUTSIDE RECORDS SUMMARY | 2019-09-12 19:34 | XMS ---
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 Byron VISIT COUNT (12 MO.) Lilian Gilbert TOTAL 4 NOTE: Visits indicate total known visits. ED/UCC VISIT TRACKING (12 MO.) 09/12/2019 19:31 [facility] [place] TYPE: Emergency COMPLAINT: - VOMITING 06/27/2019 18:36 [facility] [place] TYPE: Emergency COMPLAINT: - ABDOMINAL PAIN 06/25/2019 09:14 [facility] [place] TYPE: Emergency COMPLAINT: - ABD PAIN DIAGNOSES: - Personal history of nicotine dependence - Chronic obstructive pulmonary disease, unspecified - Allergy status to sulfonamides status - Personal history of malignant neoplasm of breast - Peritoneal adhesions (postprocedural) (postinfection) - Essential (primary) hypertension - Other penitentiary (current) drug therapy - Other specified abnormal findings of blood chemistry - Nausea with vomiting, unspecified - nursing home (current) use of opiate analgesic 05/06/2019 22:17 [facility] [place] TYPE: Emergency COMPLAINT: - VOMITING INPATIENT VISIT TRACKING (12 MO.) 06/29/2019 07:00 [facility] [place] TYPE: Medical Surgical COMPLAINT: - BOWEL OBSTRUCTION DIAGNOSES: - Pure hypercholesterolemia, unspecified - Essential (primary) hypertension - Pure hypercholesterolemia, unspecified - 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 - Fibromyalgia - Constipation, unspecified - Secondary malignant neoplasm of unspecified site - Allergy status to sulfonamides status - Personal history of malignant neoplasm of cervix uteri - Unspecified intestinal obstruction, unspecified as to partial - Chronic obstructive pulmonary disease, unspecified - Generalized abdominal pain - Unspecified intestinal obstruction, unspecified as to partial - Essential (primary) hypertension - nursing home (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 - 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 - Diverticulosis of intestine, part unspecified, without perfor - Allergy status to sulfonamides status - Constipation, unspecified - Fibromyalgia - Other penitentiary (current) drug therapy - Malignant neoplasm of unspecified site of unspecified female - Chronic obstructive pulmonary disease, unspecified - 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 - Secondary malignant neoplasm of unspecified site - Personal history of malignant neoplasm of cervix uteri - Personal history of nicotine dependence - nursing home (current) use of opiate analgesic - Other long term care pharmacist (current) drug therapy - Diverticulosis of intestine, part unspecified, without perfor - 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 teacher (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 - Malignant neoplasm of unspecified site of unspecified female - Personal history of nicotine dependence 05/07/2019 12:09 [facility] [place] TYPE: Medical Surgical COMPLAINT: - SBO DIAGNOSES: - nursing home (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 - Other penitentiary (current) drug therapy - Malignant neoplasm of unspecified site of unspecified female - nursing home (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 - 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 - Intestinal adhesions [bands], unspecified as to partial versu - Other long term care pharmacist (current) drug therapy - Unspecified intestinal obstruction, unspecified as to partial - Allergy status to sulfonamides status - Secondary malignant neoplasm of other digestive organs - Allergy status to sulfonamides status - Malignant neoplasm of unspecified site of unspecified female - Intestinal adhesions [bands], unspecified as to partial versu - nursing home (current) use of selective estrogen receptor modula - Secondary malignant neoplasm of other digestive organs [email or web address]
[2019-09-12] MEDS ORDERED: ULTRAM50 MG PO (19:49)
--- NOTE | 2019-09-12 23:50 | NUR ---
VA ARRIVED TO THE UNIT VIA STRETCHER. WAS ABLE TO TRANSFER HERSELD TO BED. NG TUBE WAS PLACED BY STUDENT NURSE, HR COORDINATOR OBSERVED. PT TOLERATED WELL. CHEST RX WAS DONE TO CONFIRM THE PLACEMENT OF NG TUBE. VSS. PT IN BED, CALL LIGHT WITHIN REACH.
--- NOTE | 2019-09-13 01:43 | NUR ---
NO RESULT YET FROM IMAGING. SPOKE TO KONG FROM IMAGING REGARDING INFORMATION ON RESULTS FROM CHEST XRAY. INSTRUCTED BY KONG HE WILL CALL BACK WITH INFORMATION.
--- NOTE | 2019-09-13 01:45 | NUR ---
COVID19 SPECIMEN COLLECTED PER PROTOCOL. PT VOIDED AT THE BEDSIDE COMMODE. BED IN LOW POSITION, CALL LIGHT IN REACH. NO NEEDS AT THE MOMENT.
--- NOTE | 2019-09-13 02:02 | NUR ---
IMAGING RESULTS SHOW NG TUBE IS IN CORRECT PLACEMENT. NG TUBE CONNECTED TO WALL AND ON LOW INTERMITTENT SUCTION. 200MLS YELLOW OUTPUT NOTED.
--- NOTE | 2019-09-13 02:18 | NUR ---
pt reported pain 5/10. prn med was given, see mar. pt resting in bed, lights off. earplugs provided. call light in reach.
--- NOTE | 2019-09-13 03:05 | NUR ---
PT RESTING IN BED WITH EYES CLOSED, RESPIRATIONS EVEN AND UNLABORED. NO DISTRESS NOTED. IV FLUIDS INFUSING AT 125MLS/HR. NG TUBE CONNECTED TO WALL SUCTION, LOW INTERMITTENT. CALL LIGHT IN REACH.
--- NOTE | 2019-09-13 04:12 | NUR ---
pt called to use a bathroom. ambulated ad orquidea to the bathroom. voided. vss.
--- NOTE | 2019-09-13 06:52 | NUR ---
HELPED PT TO THE BATHROOM AND BACK TO BED. CHANGED HER GOWN AND THE DRAW SHEET ON HER BED. BEDSIDE TABLE AND CALL LIGHT IN REACH. WARM BLANKET GIVEN. PT NEEDS NOTHING ELSE AT THIS TIME.
--- NOTE | 2019-09-13 06:53 | NUR ---
PT REPORTED PAIN 11/18. PRN MEDICATION GIVEN, SEE MAR.
--- NOTE | 2019-09-13 07:02 | NUR ---
PT ADMIITED TO THE FLOOR YESTERDAY AROUND 2345. NG TUBE WAS PLACED BY STUDENT NURSE, CHARGE NURSE OBSERVED. NG TUBE DRAINING YELLOW LIQUID ON INTERMITTEN SUCTION. PT REPORTED PAIN DUIRNG THIS SHIFT, MEDICATED WITH PRN MED, SEE JUL. ABDOMEN TENDER, BOWEL SOUND PRESENT. RUNNING CONT FLUIDS AT THE RATE 125 ML PER HOUR. PT CONCERNED ABOUT HER BEING AT HOME BY HIMSELF WITH DEMENTIA. THERAPUITIC COMMUNICATION PRN, CALL LIGHT WITHIN REACH.
--- NOTE | 2019-09-13 08:07 | NUR ---
PT AWAKE AND INTERACTIVE FOR BEDSIDE REPORT. PAIN MEDS BEING GIVEN AT THAT TIME. RETURNING A SHORT TIME LATER PT IS UPBEAT AND TALKATIVE, UP TO THE TOILET THEN TO RECLINER, THEN CHANGING TO RETURN TO BED FOR COMFORT. DENIES NEEDS AT THIS TIME
--- NOTE | 2019-09-13 11:09 | NUR ---
PATIENT IN BED WATCHING TV. CALL LIGHT IN REACH. NO FURTHER NEEDS AT THIS TIME.
--- NOTE | 2019-09-13 11:12 | NUR ---
PATIENT REFUSED WARM WASHCLOTH AND AM CARE.
--- NOTE | 2019-09-13 11:42 | NUR ---
PT AGREES ABDOMINAL PAIN HAS SUBSIDED. SHE CONTINUES RESTING IN BED STATES SHE WANTS TO SEE IF SHE CAN SLEEP A LITTLE BECAUSE SHE DIDN'T SLEEP WELL LAST NIGHT
--- NOTE | 2019-09-13 12:37 | NUR ---
Spoke with Ashly. She states this is her 4th time for admission for SBO. States she was planting connell and her pain became so bad, she had to stop. Has NG in place. Her main concern at this time, is her spouse who is home alone with her daughter checking in. She states he has worsening Alzheimers and is at the point he should not be staying alone. He does not like to leave their house and does better at home, daughter takes him with her when he will go. Ashly states she has not been been able to find a neurolgist close by. Updated to Dr. Crespo in [facility]. She asks for the phone number and that I call her daughter with it, so she can schedule an appt. Phone number called to daughter and name, address, phone number written on paper and placed with pt s education materials. Pt care for spouse and use a cane at times. States she is active. 1 step into house, no financial issues. Daughter, Nella, assists her when needed. Plans to discharge to home when sbo resolves. States don't like to operate on her as she has had so many abd. surgeries. If she nees surgery, will more than likely have to go to [place].
--- NOTE | 2019-09-13 14:02 | NUR ---
PATIENT IN BED WATCHING TV. PATIENT WANTED WIPES FOR BED BATH INSTEAD OF SHOWER, WIPES AND SHOWER CAP GIVEN. CALL LIGHT IN REACH. NO FURTHER NEEDS AT THIS TIME.
--- NOTE | 2019-09-13 15:17 | NUR ---
pt resting in bed uses i/s appropriately with reminders. no c/o pain or nausea at this time. ng draining greenish fluid
--- NOTE | 2019-09-13 15:44 | CONS ---
[facility] [address] [place], [place] [address] Signed DATE OF CONSULTATION: 09/13/2019 CHIEF COMPLAINT: Mid epigastric/periumbilical abdominal pain. HISTORY OF PRESENT ILLNESS: Howie is an 78-year-old female, who has had multiple abdominal surgeries over her lifetime. These include a sigmoid colectomy, cholecystectomy, hysterectomy, ventral hernia repair with mesh and bladder suspension x3 with mesh. More recently in April 2019, Dr. Julien Francisco had performed a lower abdominal laparotomy with small bowel resection for small-bowel obstruction. It was quite difficult. 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 He felt strongly that if she needed any additional surgery in the future, she should consider a tertiary referral center. Howie reminded me today that her metastatic breast cancer is treated by the Medical Oncology Department [facility]. Once again, Howie has developed abdominal distention. She says it is not as bad this time it was previously. She had the crampy abdominal pain. She came to emergency room for evaluation. She had an NG tube placed and there is some feculent material there. However, she told me she is already passing some flatus this morning. Once again, her white count is normal. Vital signs were fine. I was asked to admit her as a general surgeon on-call. PAST MEDICAL HISTORY: COPD, diverticulosis, metastatic breast cancer treated in [facility] Medical Oncology Department, fibromyalgia, hypertension, hypercholesterolemia, small bowel obstructions, and remote cervical cancer. PAST SURGICAL HISTORY: Includes the sigmoid colectomy, right knee replacement, small bowel resection in April 2019, cholecystectomy, hand surgery, left foot surgery, hysterectomy, ventral hernia repair with mesh and bladder suspension with mesh x3. SOCIAL HISTORY: She quit smoking. She does not drink. 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 She prefers a [facility] pharmacy. She lives with her , Matthew, who has dementia. FAMILY HISTORY: Not reviewed. REVIEW OF SYSTEMS: She had 10 systems reviewed and there were no new issues today. ALLERGIES: Sulfa. Electronically Signed By: KAM SALAS MD 09/13/19 1544 PATIENT NAME: HOWIE GOMEZ CONSULTATION DATE OF : 36 REPORT #: [id number] PHYSICIAN: KAM SALAS MD PCP: HOWIE ROJO REPORT IS CONFIDENTIAL AND NOT TO BE RELEASED WITHOUT AUTHORIZATION [facility] [address] [place] [id number] Signed MEDICATIONS: Ibuprofen, Tylenol, doxepin, levothyroxine, oxycodone, Nasacort, Advair, alprazolam, lisinopril, Cymbalta, Ventolin, probiotic, fish oil, vitamin D, calcium, and amoxicillin. PHYSICAL EXAMINATION: VITAL SIGNS: Blood pressure 135/54, heart rate 83, respiratory rate is 15, temperature is 98. She is 95% on room air. GENERAL: Howie is an 78-year-old female, lying supine in her hospital bed with an NG tube in place. The NG tube shows light brown to almost yellow soft feculent material. LUNGS: Clear to auscultation. HEART: Regular rate and rhythm. ABDOMEN: Soft, flat, nontender. She said it is very minimally distended on this occasion. LABORATORY DATA: Her white blood count 7, hemoglobin 10.4, her mean cell volume is 89, platelets 170. Electrolytes unremarkable. Her BUN is 17, creatinine 0.97, glucose 128. Liver function tests are negative. Her albumin is 3.5. Urine shows little bit of cloudiness of a small amount of ketones, positive nitrite and some white blood cells along with 3+ bacteria with some squamous cells. Her urine culture was pending. A chest x-ray had been performed and her NG tubes in the stomach. The CT scan of abdomen and pelvis was also performed and once again, she has an area on the mid small bowel that seems to be her transition point. No obvious pneumatosis, free air etc. ASSESSMENT AND PLAN: Howie is an 78-year-old female, who returns with her recurrent and/or persistent partial small bowel obstruction as described above. Again, we are going to place her on conservative treatment. She is very anxious, who always ask for Ativan. We are certainly happy to provide that. She is well aware of this issue of a difficult hostile abdomen. She is well aware if she needed surgery, she would be calling [facility] for further input. At this point, we will proceed with a conservative basis. She has expressed understanding and agrees to above plan. Kam Salas MD ALB/MODL /[id number] Electronically Signed By: KAM SALAS MD 09/13/19 1544 PATIENT NAME: HOWIE GOMEZ CONSULTATION DATE OF : 36 REPORT #: [id number] PHYSICIAN: KAM SALAS MD PCP: HOWIE ROJO REPORT IS CONFIDENTIAL AND NOT TO BE RELEASED WITHOUT AUTHORIZATION [facility] [address] [place], [place] [address] Signed cc: MD Howie Brown PA Copies: KAM SALAS MD, LINDA PA ~ Electronically Signed By: KAM SALAS MD 09/13/19 1544 PATIENT NAME: JASONHOWIE DUNHAM CONSULTATION DATE OF : 36 REPORT #: [id number] PHYSICIAN: KAM SALAS MD PCP: HOWIE ROJO REPORT IS CONFIDENTIAL AND NOT TO BE RELEASED WITHOUT AUTHORIZATION
--- NOTE | 2019-09-13 17:40 | NUR ---
PT RESTING AWAKE IN BED DENIES DISCOMFORTS AT THIS TIME
--- NOTE | 2019-09-13 17:58 | NUR ---
PATIENT IN BED WATCHING TV. CALL LIGHT IN REACH. NO FURTHER NEEDS AT THIS TIME.
--- NOTE | 2019-09-13 19:17 | NUR ---
RECEIVED REPORT FROM DAY SHIFT. PT AWAKE, ALERT. CHARGE NURSE IN THE ROOM FOR REPORT. WILL BE BACK TO ASSESS.
--- NOTE | 2019-09-13 19:31 | NUR ---
IN THE PT ROOM TO RE-ASSESS FOR PAIN. PT ALERT, STATED SHE WAS "GIVEN A SHOT" AND FEELS MUCH BETTER. NG TUBE DRAINS BROUN LIQUID, LOW INTERMITTENT SUCTION IS ON. PT TOLERATES WELL. CALL LIGHT WITHIN REACH, NO NEED AT THE MOMENT.
--- NOTE | 2019-09-13 20:15 | NUR ---
VS and I&Os complete. pt toileted. No further needed at this time.
--- NOTE | 2019-09-13 21:17 | NUR ---
in the pt room for assessment. pt easy wakes up to voice. done with assessment. pt stated she is comfortable, her pain is min and she feels "much much better". done with assessment. pt has no needs at the moment. light off, bed in low position, call light within reach.
--- NOTE | 2019-09-13 23:26 | NUR ---
pt reported pain, some anxiety. pt was medicated with prn medications, see mar. reported nausea "all of a sudden". medicated with pen med, see mar. pt alert, cooperative with care. bed in low positition, call light withtin reach. no needs at the moment.
--- NOTE | 2019-09-14 01:25 | NUR ---
IN THE PT ROOM, PT AMBULATED TO THE BATHROOM AND BACK TO BED AD TURNER. VOIDED. ALERT, ORIENTED, DENIED PAIN AT THE MOMENT. BED IN LOW POSITION, CALL LIGHT IN REACH. DIM LIGHT IN THE ROOM.
--- NOTE | 2019-09-14 05:16 | NUR ---
in the pt room to hang up a new bag of ivf. pt in bed, awake. pt reported to be anxious. stated she needs her inhalor which is at home. prn med was given, see mar. pt reassured that inhalor will be adressed by md. call light within reach.
--- NOTE | 2019-09-14 06:30 | NUR ---
PT ALERT, ORIENTED, PLEASANT. NG TUBE IN PLACE ON LOW INTERMITTEN SUCTION. DRAINAGE HAS BROWN COLOR. PT ANXIOUS. REPORTED THAT SHE FEELS CONGESTED AND NEEDS HER INHALER WHICH IS AT HOME. SPO2 90% ON RA. PRN MEDS WERE GIVEN, SEE MAR. PAIN MANAGEMENT UNDER CONTROL WITH PRN MEDS. SEE JUL. IV PATENT. DRESSING IS CLEAN, DRY, INTACT. PT AMBULATED TO THE BATHROOM 1 PERSON STAND BY ASSIST. COOPERATIVE WITH CARE.
--- NOTE | 2019-09-14 07:33 | NUR ---
PT AWAKE IN BED. NG DRAINING MODERATE AMT BROWN FLUID. STATES SHE WOULD LIKE HER HOME INHALER.
--- NOTE | 2019-09-14 08:00 | NUR ---
PATIENT RESTING IN BED. PATIENT GOES TO USE THE BATHROOM. ONE PERSON ASSISTING. PATIENT BACKS TO BED. CALL LIGHT WITHIN REACH. NO OTHER NEEDS AT THIS TIME
--- NOTE | 2019-09-14 08:45 | NUR ---
PT IN GOOD SPIRITS. GIVEN WARM BLANKET. NG PUTTING MODERATE AMT BROWN FLUID OUT. AB STARTED. IV FLUSHES WELL. DENIES PAIN OR NAUSEA ATT.
--- NOTE | 2019-09-14 09:52 | NUR ---
PATIENT RESTING IN BED. VITAL SIGNS DONE BY RN. I&O DONE. CALL LIGHT WITHIN REACH. NO OTHER NEEDS AT THIS TIME
--- NOTE | 2019-09-14 11:18 | NUR ---
PT STATES HER DAUGHTER WILL BE BRINGING IN HER ADVAIR.
--- NOTE | 2019-09-14 11:38 | NUR ---
CALL LIGHT ANSWERED. PATIENT RESTING IN BED. PATIENT GOES TO USE THE BATHROOM. ONE PERSON ASSISTING. PATIENT BACKS TO BED. CALL LIGHT WITHIN REACH. NO OTHER NEEDS AT THIS TIME
--- NOTE | 2019-09-14 12:07 | NUR ---
ADMINISTERED DILAUIDID AND ATIVAN FOR ANXIETY AND 8\\10 ALL OVER PAIN. STATES SHE IS "MISERABLE". UNPLUGGED PHONE IN ROOM AND LOWERED BLINDS SO THAT SHE COULD TAKE A NAP. WARM PACK PLACED AT LOWER BACK WITH TOWEL WRAPPED AROUND IT.
--- NOTE | 2019-09-14 12:39 | NUR ---
VIRI NORRIS REQUESTED I LET PT SLEEP. WILL CHECK BACK
--- NOTE | 2019-09-14 13:58 | NUR ---
PATIENT RESTING IN BED. VITAL SIGNS OBTAINED BY STUDENT RN. VITAL SIGNS AND I&O DONE. HIGH BLOOD PRESSURE. RN NOTIFIED. CALL LIGHT WITHIN REACH. NO OTHER NEEDS AT THIS TIME
--- NOTE | 2019-09-14 14:00 | NUR ---
Spoke with Ashly. She is up in room. Pain is better today. Wanting to change into her own nightgown. NG remains in place.
[2019-09-14] MEDS ORDERED: FLUTICASONE PRO16 GM NAS (14:06)
[2019-09-14] MEDS ORDERED: FEMARA2.5 MG NG (14:07)
--- NOTE | 2019-09-14 15:02 | NUR ---
MED REC COMPLETE
--- NOTE | 2019-09-14 17:30 | NUR ---
PATIENT SITTING UP IN BED. VITAL SIGNS AND I&O DONE. CALL LIGHT WITHIN REACH. NO OTHER NEEDS AT THIS TIME
--- NOTE | 2019-09-14 18:21 | NUR ---
PT AMBULATED IN PURDY, 2 LOOPS. RA. D5LR @125. U\O QS. NG @ [facility], MODERATE OUTPUT.
--- NOTE | 2019-09-14 19:28 | NUR ---
RECEIVED REPORT FROM DAY SHIFT. PT IN BED, ALERT. NG TUBE IN PLACE, ON INTERMITTENT SUCTION, BROWN LIQUID DRAINS TO THE CANISTRA. BED IN LOW POSITION. CALL LIGHT IN REACH.
--- NOTE | 2019-09-14 19:51 | NUR ---
pt USED CALL LIGHT TO SEE IF HER NG WAS WORKING. I REASSURED HER IT WAS BUT SHE NEEDS AN "RN TO TELL HER". CHARGE NURSE NOTIFIED ALONG WITH PRIMARY RN
--- NOTE | 2019-09-14 20:46 | NUR ---
IN THE PT ROOM. PT DENIED PAIN. SCHEDULED IV MED GIVEN, SEE MAR. NG TUBE FLASHING WELL. CHANGED CANISTRA ON THE WALL. DONE WITH ASSESSMENT. FLASED IV WITH 10 ML OF NS. PATENT. DRESSING IS DRY, CLEAN, INTACT. BED IN LOW POSITION, CALL LIGHT WITHIN REACH.
--- NOTE | 2019-09-14 20:55 | NUR ---
IN ROOM TO ASSESS PT'S NG TUBE, PT WAS CONCERNED THAT IT WAS NOT WORKING. NG SUCTION IS WORKING FINE ASSURED PT IT IS WORKING. PT DENIES BLOATING/NAUSEA. PT DENIES FURTHER NEEDS AT THIS TIME. CALL LIGHT IS CLOSE.
--- NOTE | 2019-09-14 21:16 | NUR ---
pt reported pain and anxiety. prn meds were given. see mar. flashed ng tube. pt ambulated to the bathroom. back to bed. call light in reach.
--- NOTE | 2019-09-14 22:38 | NUR ---
ANSWERED CALL LIGHT. SBA TO THE BATHROOM AND BACK TO BED. NGT BACK ON.
--- NOTE | 2019-09-14 22:52 | NUR ---
CHECKED ON PT TO RE-ASSESS FOR PAIN. PT RESTING IN BED WITH EYES CLOSED. BREATHING EVEN, NO DISTRESS NOTED. CALL LIGHT WITHIN REACH.
--- NOTE | 2019-09-14 23:14 | NUR ---
pt in bed, hob elevated 35 degrees, breathing even, not labored, eyes closed. dim light in the room. bed in low position. call light in reach.
--- NOTE | 2019-09-15 02:35 | NUR ---
in the pt room, scheduled iv med given, new bag of ivf started. pt woke up to voice, ambulated by 1 person assist to the bathroom and back to bed. voided. resting in bed, call light in reach. no needs at the moment.
--- NOTE | 2019-09-15 05:12 | NUR ---
pt called to bathroom. ambulated to the bathroom and back to bed, 1 person stand by. voided. stated her pain "is not bad at all". back to bed. ng tubing drains brown liquid. turned hit up in the room. checked vs. pt resting in bed. call light in reach. no needs at the moment.
--- NOTE | 2019-09-15 05:15 | NUR ---
PT REPORTED PAIN AND ANXIETY AT THE BEGINNING OF THE SHIFT. PRN MEDS WERE GIVEN, SEE MAR. NG TUBE PLACED ON INT SUCTION. BROWN DISCHARGE. IV PATENT, DRESSING CLEAN, DRY, INTACT. PT USED HER HOME INHALER ONCE AT THE BEGINNING OF THE SHIFT. STATED IN THE MORNING "IT IS SO WONDERFUL TO WAKE UP IN THE MORNING AND NOT TO BE HURTING".
--- NOTE | 2019-09-15 07:15 | NUR ---
RECIEVED REPORT FROM STATION SUPERINTENDENT. ENTERED pt ROOM TO CHECK ON pT. pt SLEEPING WITH HEAD RAILS UP X2, CALL LIGHT WITHIN REACH, AND BED IN LOWEST POSITION. NG TUBE SET TO INTERMITTENT SUCTION. RESPIRATIONS EVEN AND UNLABORED. LEFT pt IN SAME POSITION FOUND.
--- NOTE | 2019-09-15 07:50 | NUR ---
ENTERED pt ROOM TO PERFORM ASSESSMENT. pt JUST GETTING BACK IN BED FROM USING BATHRROM. NG TUBE HOOKED BACK UP TO INTERMITTENT SUNCTION. ASSESSMENT COMPLETED. LEFT pt LAYING IN BED WITH WHEELS LOCKED, CALL LIGHT WITHIN REACH AND HEAD RAILS UP X2
--- NOTE | 2019-09-15 09:09 | NUR ---
ENTERED ROOM TO CHECK ON pt. pt SLEEPING. RESPIRATIONS EVEN AND UNLABORED. CALL LIGHT WITHIN REACH.
--- NOTE | 2019-09-15 09:45 | NUR ---
PT HAS BEEN UP TO THE BATHROOM AND VOIDED AND THEN BACK TO BED. PT DOES WELL WITH NG CLAMPED TO AMBULATE. PT AMBULATES WELL WITHOUT ASSISTANCE. SHE JUST NEEDS HELP GETTING TUBES AND LINES UNPLUGED.
--- NOTE | 2019-09-15 09:51 | NUR ---
ENTERED pt ROOM TO DOCUMENT I&O. pt LAYING IN BED WITH CALL LIGHT WITHIN REACH. BED IN LOWEST POSITION AND WHEELS LOCKED. pt NEEDED NOTHING ELSE AT THIS TIME.
--- NOTE | 2019-09-15 09:55 | NUR ---
PT UP TO BATHROOM AND CONTIOUE TO DO WELL. STUDENTS NURSES ARE HELPING WITH PT THIS AM.
--- NOTE | 2019-09-15 10:42 | NUR ---
ENTERED pt ROOM TO CHECK ON pt. pt SLEEPING IN BED. CALL LIGHT WITHIN REACH AND HEAD RAILS UP X2. RESPIRATIONS EVEN AND UNLABORED. pt LEFT IN SAME POSITION FOUND.
--- NOTE | 2019-09-15 11:18 | NUR ---
ENTERED pt ROOM. pt SLEEPING. RESPIRATIONS EVEN AND UNLABORED. CALL LIGHT WITHIN REACH WHEN CLASSIFICATION COUNSELOR LEFT.
--- NOTE | 2019-09-15 11:50 | NUR ---
In to see pt. She is sleeping soundly. Not awakened.
--- NOTE | 2019-09-15 13:30 | NUR ---
ENTERED pt ROOM TO CHECK ON pt. pt IS SLEEPING IN BED WITH SIDE RAILS UP X2. CALL LIGHT IS WITHIN REACH. RESPIRATIONS EVEN AND UNLABORED. CASING TIER ASKED pt HOW SHE WAS FEELING AND SHE SAID "I AM DOING OKAY." pt LEFT FOUND.
--- NOTE | 2019-09-15 14:34 | NUR ---
ENTERED ROOM TO CHECK ON pt. pt WALKED A LAP AROUND THE UNIT WITH SN ZEESHAN Richards. pt IS SLEEPING IN BED WITH HEAD RAILS UP X2. RESPIRATIONS ARE EVEN AND UNLABORED. CALL LIGHT IS WITHIN REACH.
--- NOTE | 2019-09-15 15:26 | NUR ---
ENTERED pt ROOM TO CHECK ON pt. YOSEPH SCHUSTER IN THE ROOM WITH pt. pt NEEDED NOTHING AT THIS TIME. LEFT pt TALKING TO MARIELY, SITTING UP IN BED WITH HEAD RAILS UP X2, AND CALL LIGHT WITHIN REACH.
--- NOTE | 2019-09-15 15:39 | NUR ---
PT AWAKE AND UP TO THE BATHROOM. THEN BACK TO BED.
--- NOTE | 2019-09-15 15:53 | NUR ---
PT MADE TO LAPS AROUND THE M/S UNIT. TOLERATED WELL.
--- NOTE | 2019-09-15 16:48 | NUR ---
ENTERED pt ROOM TO PERFORM ASSESSMENT. pt SITTING IN BED WITH HEAD OF BED ELEVATED, CALL LIGHT WITHIN REACH, AND HEAD RAILS UP X2. pt NEEDED NOTHING ELSE AT THIS TIME.
--- NOTE | 2019-09-15 17:11 | NUR ---
THIS EMAIL PRODUCER AGREES WITH STUDENT NURSE CHARTING. NOTES, ASSESSMENTS AND VITAL SIGNS.
--- NOTE | 2019-09-15 17:22 | NUR ---
ENTERED pt ROOM TO CHECK ON pt. pt SITTING UP IN BED WATCHING TV. pt DID NOT NEED ANYTHING AT THIS TIME. pt STATED "I WOULD LIKE TO GET UP AND GO FOR A WALK SOON." POULTRY FIELD SERVICE TECHNICIAN TOLD pt TO JUST PUSH THE CALL BUTTON WHEN SHE IS READY.
--- NOTE | 2019-09-15 18:00 | NUR ---
PT BACK TO BED AFTER BATHROOM HAD MEDIUM FORMED BM
--- NOTE | 2019-09-15 18:42 | NUR ---
ENTERED pt ROOM pt NOT THERE. pt IS WALKING LAPS IN PURDY WITH YOSEPH SCHUSTER. CUSTODIAL OPERATIONS MANAGER FOUND pt AND pt NEEDED NOTHING AT THIS TIME.
--- NOTE | 2019-09-15 19:00 | NUR ---
IN ROOM FOR REPORT, PT DENIES NEEDS AT THIS TIME. CALL LIGHT IS CLOSE.
--- NOTE | 2019-09-15 20:41 | NUR ---
VITALS AND I&os DONE AND CHARTED. BEDSIDE TABLE AND CALL LIGHT IN REACH.PT NEEDS NOTHING MORE AT THIS TIME.
--- NOTE | 2019-09-15 20:56 | NUR ---
ADMINISTERED MEDICATIONS AND ASSESSED PT. SHE REPORTS FEELING MUCH BETTER AFTER HAVING A BM TODAY. NG TUBE CANISTER IS EMPTY. PT REPORTS USUAL ACHES/PAINS AND WANTS TO CALL LATER TO TAKE PAIN MEDICINE. PT DENIES FURTHER NEEDS AT THIS TIME. CALL LIGHT IS CLOSE.
--- NOTE | 2019-09-15 21:59 | NUR ---
PT IS RESTING WITH EYES CLOSED, RR IS EVEN AND NONLABORED. CALL LIGHT IS CLOSE AND IV IS INFUSING FINE.
--- NOTE | 2019-09-15 22:30 | NUR ---
THIS PIPE CHIPPER ASSISTED PATIENT TO BATHROOM, PATIENT PERFORMS HER OWN PERICARE. LINENS CHANGED PER PATIENT REQUEST, PATIENT HOOKED BACK UP TO SUCTION. PATIENT REQUESTING SCHEDULED MEDICATIONS, RN NOTIFIED. CALL LIGHT IN REACH. NO OTHER NEEDS AT THIS TIME.
--- NOTE | 2019-09-15 22:55 | NUR ---
ADMINISTERED ATIVAN AND DILAUDID, PT REPORTS PAIN 10/10 ALL OVER. SHE DENIES FURTHER NEEDS AT THIS TIME. CALL LIGHT IS CLOSE.
--- NOTE | 2019-09-16 00:25 | NUR ---
PT IS RESTING WITH EYES CLOSED, RR IS EVEN AND NONLABORED. CALL LIGHT IS CLOSE.
--- NOTE | 2019-09-16 01:50 | NUR ---
IN ROOM TO ADMINSITER VASOTEC, NAE YOSEPH ASSISTED HER TO THE RESTROOM AND BACK TO BED. PT DENIES FURTHER NEEDS. CALL LIGHT IS CLOSE.
--- NOTE | 2019-09-16 01:54 | NUR ---
HELPED PT TO THE BATHROOM AND BACK TO BED. VITALS AND I&OS DONE AND CHARTED. BEDSIDE TABLE AND CALL LIGHT IN REACH. WARM BLANKET GIVEN PER PT REQUEST.
--- NOTE | 2019-09-16 01:57 | NUR ---
PT DECIDED SHE NEEDS PAIN MEDICINE, ADMINISTERED DILAUDID. PT DENIES FURTHER NEEDS CALL LIGHT IS CLOSE.
--- NOTE | 2019-09-16 04:34 | NUR ---
HELPED PT WITH A BED BATH AND A SHAMPOO CAP. CHANGED HER GOWN, HELPED HER INTO THE BATHROOM. PT WILL CALL WHEN SHE IS DONE IN THE BATHROOM.
--- NOTE | 2019-09-16 04:53 | NUR ---
ASSISTED PT BACK TO BED, NG TUBE BACK TO INTERMITENT SUCTION. IV IS INFUSING FINE. PT DENIES FURTHER NEEDS AT THIS TIME. CALL LIGHT IS CLOSE.
--- NOTE | 2019-09-16 06:24 | NUR ---
VITALS AND I&OS DONE AND CHARTED. GARBAGES EMPTIED. REPLACED HER SIDE TABLE GARBAGE WITH A NEW ONE. BEDSIDE TABLE AND CALL LIGHT IN REACH. PT NEEDS NOTHING MORE AT THIS TIME.
--- NOTE | 2019-09-16 06:54 | NUR ---
IN ROOM TO [facility] NEW IV BAG. ASSISTED PT TO THE RESTROOM, SHE WILL CALL WHEN FINISHED.
--- NOTE | 2019-09-16 07:08 | NUR ---
HELPED PT TO THE BATHROOM AND BACK TO THE CHAIR. BLANKET GIVEN. BEDSIDE TABLE AND CALL LIGHT IN REACH. PT NEEDS NOTHING MORE AT THIS TIME.
--- NOTE | 2019-09-16 08:37 | NUR ---
PT UP IN CHAIR THIS AM, DENIES THE NEED FOR PAIN MEDICATIONS AT THIS TIME. PT REMAINS NPO AT THIS TIME, NG TO LIWS AND NO DRAINAGE NOTED THIS AM.
--- NOTE | 2019-09-16 09:42 | NUR ---
DR SALAS INTO SEE PT THIS AM, NEW ORDERS RECEIVED, NG TUBE REMOVED BY FOOD SAFETY SCIENTIST [employer] FROM [facility]. PT TOLERATED THIS PROCESS WELL. PT GIVEN SOME BROTH AT THIS TIME.
--- NOTE | 2019-09-16 11:00 | NUR ---
Spoke with Sulma. Her NG is out. Had sips of water and c/o of nausea and pain. She is limiting her intake.
--- NOTE | 2019-09-16 11:06 | NUR ---
PT TOLERATED SOME CLEAR LIQUIDS SO FAR THIS AM.
--- NOTE | 2019-09-16 11:32 | NUR ---
PT C/O ABD PAIN, EXPLAINED TO HER TO NOT DRINK ANYTHING AT THIS TIME.
--- NOTE | 2019-09-16 14:23 | NUR ---
PT ASKE FOR HER MDI GIVEN AT THIS TIME 2 PUFFS. PT PAIN HAS INPROVED AND ALSO GAVE HER EAR PLUGS TO CUT THE NOISE.
--- NOTE | 2019-09-16 17:52 | NUR ---
PT ATE SOME OF HER CLEAR LIQUID TRAY, TOLERATED IT SO FAR. PT UNDERSTOOD THE GO SLOW IWTH ORAL LIQUIDS. SHE DID NOT TRY THE BROTH THIS TIME. SHE ATE THE JELLO, JUICE AND IS STILL WORKING ON HER TEA. PT IS HAVING A BETTER AFTERNOON.
--- NOTE | 2019-09-16 20:58 | NUR ---
ASSISTED PT TO THE RESTROOM SHE WILL CALL WHEN SHE IS DONE.
--- NOTE | 2019-09-16 22:32 | NUR ---
c/o 10/10 generalized and back pain, medicated with dilaudid 1mg IV, and c/o restlessness, medicated with Ativan 1mg IV, coop. Up to br earlier and voided dark yellow urine. tolerataing liquids well, fresh water given, call light at bedside, IVF infusing
--- NOTE | 2019-09-16 23:08 | NUR ---
BROUGHT HER A CUP TO RINSE HER MOUTH OUT WITH. ALSO GOT HER PURSE FOR HER. SHE NEEDS NOTHING ELSE AT THIS TIME.
--- NOTE | 2019-09-16 23:42 | NUR ---
HELPED PT TO THE BATHROOM AND BACK TO BED. BEDSIDE TABLE AND CALL LIGHT IN REACH.
--- NOTE | 2019-09-17 02:53 | NUR ---
CONTINOUES ON URINARY CONTACT PRECAUTIONS, UP TO BR, VOIDED, BACK TO BED. IVF INFUSING W/O PROBLEMS, NO C.O URINARY BURNING, SOB OR PAIN, NO N/V, USES CALL LIHGT APPROPRIATELY
--- NOTE | 2019-09-17 04:29 | NUR ---
Resting, eyes closed, resp even, unlabored, fluids and call light at bedside, on room air, ivf infusing w/o problems
--- NOTE | 2019-09-17 05:22 | NUR ---
ALERT AND ORIENTED. C/O FIBROMYALGIA PAIN AND BACK PAIN, MEDICATED WITH DILAUDID 1MG IV. IVF INFUSING W.O PROBLEMS,
--- NOTE | 2019-09-17 05:58 | NUR ---
ALERT AND ORIENTED, ON ROOM AIR, WAS MEDICATED SEVERAL TIMES WITH DILAUDID PER C/O BACK AND FIBROMYALGIA PAIN WITH GOOD PAIN RELIEF. AND 1X WITH ATIVAN PER ANXIETY, EASILY REDIRECTED, PASSING GAS. CONTINUES ON URINARY CONTACT PRECAUTIONS. VOIDING QS. IVF INFUSING W/O PROBLEMS. GETS VASOTEC IV FOR HTN. TOLERATING FLUIDS, NO N/V. USES CALL LIGHT APPROPRIATELY
--- NOTE | 2019-09-17 07:12 | NUR ---
SHIFT CHANGE REPORT RECIEVED FROM NIGHT NURSE. pt LAYING IN BED WITH SIDE RAILS UP X2, CALL LIGHT WITHIN REACH, AND BED IN LOWEST POSITION. pt NEEDED NOTHING AT THIS TIME.
--- NOTE | 2019-09-17 09:19 | NUR ---
ENTERED pt ROOM TO CHECK ON pt. pt SLEEPING IN BED. RESPIRATIONS EVEN AND UNLABORED. CALL LIGHT WITHIN REACH.
--- NOTE | 2019-09-17 10:30 | NUR ---
ENTERED pt ROOM TO ADMINISTER MEDICATIONS. pt SITTING UP IN BED. MEDICATIONS ADMINISTERED. pt NEEDED NOTHING AT THIS TIME.
--- NOTE | 2019-09-17 10:50 | NUR ---
PT IS DISCHARGED TO HOME TODAY, BUT RIDE WILL NOT BE HERE TILL 1 PM OR LATER. PT TOOK AM MEDICATIONS AND WILL GET DRESSED AND EAT SOME LUNCH.
--- NOTE | 2019-09-17 13:08 | NUR ---
ENTERED pt ROOM TO CHECK ON pt. pt SITTING IN CHAIR WITH LEGS UP LOOKING OUT THE WINDOW. pt WAITING FOR DAUGHTER SO SHE CAN BE DISCHARGED. pt NEEDED NOTHING AT THIS TIME.
--- NOTE | 2019-09-17 13:18 | NUR ---
DISCHARGE INSTRUCTIONS GIVEN ALL QUESTIONS ANSWERED AT THIS TIME, PT IS DRESSED AND JUST WAITING FOR HER RIDE TO COME. EXPLAINED TO PT TO WELDING PROCESS SPECIALIST ALL QUESTIONS DOWN FOR HER FOLLOW UP APPOINTMENT WITH DR SALAS. MEDICATIONS FROM MEDICATION TOWER GIVEN TO PT, PT WILL GET THE ONES IN THE SAFE WHEN SHE GOES OUT TO THE CAR.
--- NOTE | 2019-09-17 13:41 | NUR ---
PT TAKEN OUT VIA WC BY OVERHEAD CRANE OPERATOR [employer] [facility]. ALL PERSONAL BELONGINS TAKEN WITH HER. THIS TARGET AIRCRAFT CONTROLLER AGREES WITH ALL CHARTING FROM STUDENT .
--- NOTE | 2019-09-18 07:25 | DS ---
[facility] [address], [place] [address] Signed ADMISSION DATE: 09/13/2019 DISCHARGE DATE: 09/17/2019 FINAL DIAGNOSES: 1. Partial small bowel obstruction. 2. Metastatic breast cancer with unknown primary. PROCEDURE: CT scan of abdomen and pelvis. HISTORY OF PRESENT ILLNESS: Howie is an 78-year-old female, who apparently has a metastatic lobular breast cancer of unknown primary. She has been following along with the Medical Oncology Department, [facility]. She had a laparotomy last winter and had a small bowel resection. Apparently, the upper portion of the abdomen was completely frozen in. She has been back twice now with recurrent partial small-bowel obstruction. With conservative treatment, she does well. She did have urinary tract infection on this occasion with Klebsiella pneumoniae. It was sensitive to the Levaquin. This morning, she has already had several good bowel movements. She is tolerating a full clear liquid diet and her abdomen is completely benign. She said the fibromyalgia started back up. She would love to go home. DISCHARGE PLANS AND MEDICATIONS: Howie is going to be discharged to home without any new prescriptions. She can resume all her chronic prescriptions. She should follow a soft low residue diet for at least a few days. She should probably consider a low residue diet even in the future. She is welcome to perform her activities of daily living including walking up and down stairs and showering, bathing as usual. She can follow up my office as needed. She will continue her usual follow up with her primary care provider in [facility] Medical Oncology Department. She has expressed understanding and agrees above plan. MD JUDD Brown/DAVID /[id number] Electronically Signed By: KAM SALAS MD 09/18/19 0725 PATIENT NAME: HOWIE GOMEZ DISCHARGE SUMMARY DATE OF : 36 REPORT #: [id number] PHYSICIAN: KAM SALAS MD PCP: HOWIE BAÑUELOS REPORT IS CONFIDENTIAL AND NOT TO BE RELEASED WITHOUT AUTHORIZATION [address] [address] Signed cc: KAY Douglass MD Copies: HWOIE BAÑUELOS ANDREW L MD ~ Electronically Signed By: KAM SALAS MD 09/18/19 0725 PATIENT NAME: HOWIE GOMEZ DISCHARGE SUMMARY DATE OF : 36 REPORT #: [id number] PHYSICIAN: KAM SALAS MD PCP: HOWIE BAÑUELOS REPORT IS CONFIDENTIAL AND NOT TO BE RELEASED WITHOUT AUTHORIZATION
== END 2019-09-17 13:40 | disposition home or self-care (01) | DRG 389 ==
LOC: ED 19:30 → MS 19:32
PROVIDERS: ADMIT Colon & Rectal Surgery
DX: K56.600 Partial intestinal obstruction, unspecified as to cause (principal); N39.0 Urinary tract infection, site not specified; C79.81 Secondary malignant neoplasm of breast; B96.1 Klebsiella pneumoniae [K. pneumoniae] as the cause of diseases classified elsewhere; J44.9 Chronic obstructive pulmonary disease, unspecified; M79.7 Fibromyalgia; C80.1 Malignant (primary) neoplasm, unspecified; I10 Essential (primary) hypertension; E78.00 Pure hypercholesterolemia, unspecified; E87.6 Hypokalemia; E83.42 Hypomagnesemia; Z85.41 Personal history of malignant neoplasm of cervix uteri; Z88.2 Allergy status to sulfonamides; Z87.891 Personal history of nicotine dependence; Z79.1 Long term (current) use of non-steroidal anti-inflammatories (NSAID); Z79.891 Long term (current) use of opiate analgesic; Z79.51 Long term (current) use of inhaled steroids; Z79.899 Other long term (current) drug therapy
CPT/HCPCS: 36415; 71045; 74177; 80048; 80053; 81001; 83690; 83735; 84100; 84134; 85025; 87077; 87088; 87186; 94640; 94760; 96375; 99285-25; C9113; G0378; J1170; J1956; J2060; J2405; J3475; J3480; J7040; J7060; J7121; Q9967; U0002

== ENCOUNTER 2019-10-14 14:40 | Observation (INO) | payer MEDICARE, OTHER ==
[~2019-10-14] VITALS: Ht 175.3 cm; Wt 76.2 kg
--- OUTSIDE RECORDS SUMMARY | ~2019-10-14 | XMS | Encounter Summary ---
Demographics + + + | Address | [address] | | | [place] [address] | + + + | Home Phone | | + + + | Preferred Language | Unknown | + + + | Marital Status | | + + + | Mormonism Affiliation | Unknown | + + + | Race | Unknown | + + + | Ethnic Group | Unknown | + + + Author + + + | Author | [facility] | | | and [place] | + + + | Organization | [facility] | | | and [place] | + + + | Address | Unknown | + + + | Phone | Unavailable | + + + Support + + + + + | Name | Relationship | Address | Phone | + + + + + | Nella Haque | ECON | Unknown | | + + + + + | Matthew Ramirez | CHRIS | [address] | | | | | [place] | | | | | [address] | | + + + + + Care Team Providers + +------+ + | Care Shrimp Packer Name | Role | Phone | + +------+ + PCP | Unavailable | + +------+ + Encounter Details +--------+ + + + + | Date | Type | Department | Care Team | Description | +--------+ + + + + | 12/08/ | Hospital | [facility] | [place], | | | 2009 | Encounter | [facility] | Katerin Xavier MD | | | | | CONV DEPT [address] | | | | | | [place], | | | | | | [place] [address] | | | | | | [phone] | | | +--------+ + + + + Social History + +-------+ +--------+------+ | Tobacco Use | Types | Packs/Day | Years | Date | | | | | Used | | + +-------+ +--------+------+ | Never Assessed | | | | | + +-------+ +--------+------+ + + + | Sex Assigned at | Date Recorded | | | | + + + | Not on file | | + + + + + + + | Job Start Date | Occupation | Industry | + + + + | Not on file | Not on file | Not on file | + + + + + + + + | Travel History | Travel Start | Travel End | + + + + + + | No recent travel history available. | + + documented as of this encounter Plan of Treatment Not on filedocumented as of this encounter Visit Diagnoses Not on filedocumented in this encounter"
--- OUTSIDE RECORDS SUMMARY | ~2019-10-14 | XMS | Encounter Summary ---
Demographics + + + | Address | [address] | | | [place] [address] | + + + | Home Phone | | + + + | Preferred Language | Unknown | + + + | Marital Status | | + + + | Jehovah'S Witness Affiliation | NRP | + + + | Race | White | + + + | Ethnic Group | Not or | + + + Author + + + | Author | [facility] | + + + | Organization | [facility] | + + + | Address | Unknown | + + + | Phone | Unavailable | + + + Support + + + + + | Name | Relationship | Address | Phone | + + + + + | Matthew Ramirez | CHRIS | [address] | | | | | [place] | | | | | [address] | | + + + + + | Nella Haque | ECON | Unknown | | + + + + + Care Team Providers + +------+ + | Care Embossing Machine Tender Name | Role | Phone | + +------+ + | Long Copeland MD | PCP | | + +------+ + Reason for Visit +--------+ + | Reason | Comments | +--------+ + | Preop | | +--------+ + Encounter Details +--------+---------+ + + + | Date | Type | Department | Care Team | Description | +--------+---------+ + + + | 10/25/ | Office | Preoperative | Vy Sosa | Pre-op evaluation; | | 2010 | Visit | Medicine Clinic at | T, SHAPE [facility]-C,MPH | Preop examination; | | | | [facility] 4th Floor [address] | | Diabetes mellitus | | | | [address] | | screening; Other | | | | Mailcode: CH4S | | specified | | | | [facility] | | pre-operative | | | | and Healing, | | examination | | | | Building 1,4th Floor | | | | | | [place], [place] | | | | | | [address] | | | | | | [phone] | | | +--------+---------+ + + + Social History + +-------+ [...] + + documented as of this encounter Last Filed Vital Signs + + + + + | Vital Sign | Reading | Time Taken | Comments | + + + + + | Blood Pressure | 133/66 | 10/25/2010 12:38 PM | | | | | PDT | | + + + + + | Pulse | 88 | 10/25/2010 12:38 PM | | | | | PDT | | + + + + + | Temperature | 36.4 C (97.5 F) | 10/25/2010 12:38 PM | | | | | PDT | | + + + + + | Respiratory Rate | 14 | 10/25/2010 12:38 PM | | | | | PDT | | + + + + + | Oxygen Saturation | 96% | 10/25/2010 12:38 PM | | | | | PDT | | + + + + + | Inhaled Oxygen | - | - | | | Concentration | | | | + + + + + | Weight | 104.3 kg (230 lb) | 10/25/2010 12:38 PM | | | | | PDT | | + + + + + | Height | 174.6 cm (5' 8.75") | 10/25/2010 12:38 PM | | | | | PDT | | + + + + + | Body Mass Index | 34.21 | 10/25/2010 12:38 PM | | | | | PDT | | + + + + + documented in this encounter Patient Instructions Patient Instructions Vy Sosa, JUANC,MPH - 10/25/2010 1:01 PM PDTPREOPERATIVE INSTRUCTIONS Do not eat or drink anything after midnight the night before surgery. TAKE the following medications with a sip of water on the morning of surgery: DULoxetine (CYMBALTA) gabapentin ciprofloxacin (CIPRO) levothyroxine (LEVOTHROID) If needed- acetaminophen (TYLENOL) If needed- oxyCODONE-acetaminophen Do NOT take the following medications on the morning of surgery: ascorbic acid SR (VITAMIN C) Aspirin HOLD 7 days before and day of surgery BLACK COHOSH ORAL HOLD 7 days before and day of surgery CALCIUM CARBONATE/VITAMIN D3 (CALCIUM 600 + D OR) cholecalciferol, Vitamin D3 clobetasol 0.05 % Topical Cream cyanocobalamin (VITAMIN B-12) doxepin estradiol (ESTRACE) 0.01 % (0.1 mg/g) Vaginal Cream folic acid Rvdlblvxxch-Ebwchduyn-Pfv C-Mn (GLUCOSAMINE CHONDROITIN MAXSTR)- HOLD 7 days before and day of surgery lisinopril nabumetone (RELAFEN) HOLD 7 days before and day of surgery simvastatin 40 mg Oral Tablet- May take as usual the night before surgery triamcinolone 55 mcg Nasal Aerosol, triamcinolone acetonide 0.1 % Topical Cream Do not take any Aspirin, vitamin E or non-steroidal anti-inflammatory (NSAIDs i.e. Advil , Aleve, Ibuprofen) or herbal supplements seven days prior to your surgery. These drugs may interfere with normal blood clotting and may cause excessive bleeding and bruising during or after the surgery. Please see the list below for more products that contain Aspirin, Ibupro fen, or Vitamin E If you are taking Coumadin (warfarin), Plavix or any other blood thinners please let you r surgical team know as medication changes will be necessary. If you need a pain medication for general purposes, use Tylenol as directed. If you are in doubt about any medications that you are taking, please contact our office . AVOID THESE MEDICATIONS FOR 7 DAYS BEFORE SURGERY PRODUCTS CONTAINING ASPIRIN OR NON-STEROIDAL ANTI-INFLAMMATORY DRUGS (NSAIDs) Advil, Aleve, Roxanne-Washington, Anacin, Arthopan, Ascriptin, Aspergum, Aspirin with and without codeine, Feli aspirin. Bufferin, Butalbital, Butazone, Cataflam, Clinoril, Co-Advil, Coges ic, Daypro, Diclofenac, Diflunisal, Dipyridamole, Disalcid, Live s, Dolene, Dolobid, Easpi rin, Etodolac, Feldene, Fenoprofen, Ibuprofen, Indocin, Indomethacin, Lodine, Meclofenamate, Menadol, Meprobamate/Aspirin, Midol, Motrin and Motrin IB, Nabumetone, Naproxen, Norgesic, Nuprin, Nytol, Nyquil, Orudis, Oruvail, Oxycodone and aspirin, Oxyphenbutazone, Pamprin, Pep to Bismol, Percodan, Persantine, Phenylbutazone, Piroxicam, Propoxyphene, Relafen, Robomol, Rufen, Sine-aid, Sutter s cold tablets, Sulindac, Talwin, Tolectin, Triaminicin, Trige sic, Voltaren, Zorprin. OTHER PRODUCTS WHICH MAY PROMOTE BLEEDING Vitamin E, Gingko Biloba Important Guidelines Please do not to shave the surgical site at home before the surgery Do not smoke, drink alcohol or use recreational drugs for 24 hours before your surgery Do not eat any hard candy or chew gum after midnight the night before your surgery. Watch for any change in your health condition. Let your surgeon know right away if you do not feel well. Please remember to brush your teeth the night before and the morning of your procedure. Do not wear makeup, perfume, lotions or powder. Remove any nail german from at least one fingernail. Do not wear any jewelry to the hospital. Wear loose, comfortable clothing. Bring the case and solution for your contact lenses or wear your glasses. Leave all your valuables at home. Allow enough travel time so you re not late for your check in for surgery. Take a bath or shower and remember to shampoo your hair using your usual hair product be fore your arrival at the hospital. HIBICLENS GUIDE TO GENERAL SKIN CLEANSING AT HOME BEFORE SURGERY General Skin Cleansing Instructions: Hibiclens is not to be used on the head or face, keep out of the eyes, ears and mouth. Hibiclens is not to be used in the genital area. Hibiclens should not be used if you are allergic to chlorhexidine gluconate or any other in gredients in this preparation. *See Hibiclens label for full product information and precautions. When you bathe or shower the night before your surgery: If you plan to wash your hair, do so with your regular shampoo. Then rinse hair and body th oroughly to remove any shampoo residue. Wash your face with your regular soap or water only. Thoroughly rinse your body with warm water from neck down. Use Hibiclens as you would any other liquid soap. Please do not put the Hibiclens on a wash cloth, apply directly to the skin and wash gently. Apply the minimum amount of Hibiclens n ecessary to cover the skin. Leave the Hibiclens on your skin for 1 minute, then rinse off. Rinse thoroughly with warm water. Do not use your regular soap after applying and rinsing Hibiclens. When using Hibiclens for a second day in a row (morning of surgery, as soon as you wake up) : Shower/bathe again using Hibiclens in the same method as described above. Do not apply any lotions, deodorants, powders or perfumes to the body areas that have been cleaned with Hibiclens. Pain management after surgery Following surgery, at regular intervals, your nurse will ask you to rate your pain on a scale of 0-10 (0 is no pain and 10 is the worst pain you can imagine). A variety of pain management strategies may be appropriate, such as intravenous medicati ons, oral medications, peripheral nerve bocks or epidural catheters that can deliver local a nesthetic to cover the area of your surgical incision. Please discuss this with your anesth esiologist to receive additional information about what might be appropriate for you. The goal for pain control therapy is to be comfortable enough to change your position, c ough and take deep breaths. You will be asked to do such activities to help prevent complic ations. Preventing post op complications Use an incentive spirometer or peep breathe to keep your lungs working properly an d to help prevent respiratory complications. It helps you take long, deep breaths. Use it at least once every hour while you are awake. Leg and feet exercises will maintain good circulation and help prevent blood clots in yo ur legs. Sometimes your doctor will order air compression stockings. Compressed air helps the circulation in your legs. Walking and moving will help stimulate normal circulation and deep breathing. After you r surgery, your nurse may ask you to sit, stand or walk. Surgery Check in Locations Day Stay Unit [phone], [facility], fourth floor Room 4515 Surgery Check in Time Check-in times for Hospital Admissions are not available until the day prior to surgery. So meone from your surgeon's office or the hospital will contact you with your check in time. I f you do not hear from anyone by 3:00 PM please call your surgeons' office for [id number] . Going Home Your surgeon will decide when you are medically ready to go home. If you are released to go home on the same day as your procedure/surgery please note the following: You will not be competent to drive and will require someone else to transport y ou home on the day of discharge since pain medications and physical activity restrictions li jaymie your ability to drive safely. It is also required that you have someone assist you and look after you on the first night after you have undergone regional blocks, deep sedation, a nd/or general anesthesia. If you stayed in the hospital after surgery, please arrange for your ride to come for yo u around 9AM on the day your doctor says you can go home. Check out time is 11AM. If you have questions or concerns after you go home, call your doctor s office. If it is after office hours, call the [facility] drop machine operator at [phone] and ask them to page your doc tor. You will require transportation home on the day of discharge. Pain medications and physi kirk activity restrictions may limit your ability to drive safely. It is also recommended th at you have someone assist you and look after you on the first night after you are released to go home. documented in this encounter Progress Notes Mark Gotti MA - 10/25/2010 1:33 PM PDTVenipuncture performed in clinic, blood vandana ple obtained from Right antecubital site Hemoglobin A1C POCT performed during clinic visit. Blood sample obtained from venipuncture performed to obtain other lab tests. y Sosa FNP-C,MPH - 10/25/2010 12:53 PM PDTSee Scanned H&P. H and P entered into [employer](Chart review, Media tab). Vy Sosa RN, KAELA, MPH [facility] [address] Mail Code: [facility] [address] documente d in this encounter Plan of Treatment Not on filedocumented as of this encounter Procedures + +--------+ + + + | Procedure Name | Priori | Date/Time | Associated Diagnosis | Comments | | | ty | | | | + +--------+ + + + | AZ COLLECTION VENOUS | Routin | 10/25/2010 | Other specified | | | BLOOD,VENIPUNCTURE | e | 1:33 PM | pre-operative | | | | | PDT | examination | | + +--------+ + + + | HEMOGLOBIN A1C, POC | Routin | 10/25/2010 | Diabetes mellitus | Results for this | | | e | 1:04 PM | screening | procedure are in the | | | | PDT | | results section. | + +--------+ + + + | COMPLETE METABOLIC | Routin | 10/25/2010 | Pre-op evaluation | Results for this | | SET | e | 12:46 PM | | procedure are in the | | (NA,K,CL,CO2,BUN,CRE | | PDT | | results section. | | AT,GLUC,CA,AST,ALT,B | | | | | | MONTSE TOTAL,ALK | | | | | | PHOS,ALB,PROT TOTAL) | | | | | + +--------+ + + + | CBC ONLY | Routin | 10/25/2010 | Pre-op evaluation | Results for this | | | e | 12:46 PM | | procedure are in the | | | | PDT | | results section. | + +--------+ + + + | TYPE AND SCREEN | Routin | 10/25/2010 | Pre-op evaluation | Results for this | | | e | 12:46 PM | | procedure are in the | | | | PDT | | results section. | + +--------+ + + + documented in this encounter Results HEMOGLOBIN A1C, POC (10/25/2010 1:04 PM PDT) + +-------+ + + + | Component | Value | Ref Range | Performed | Pathologist | | | | | At | Signature | + +-------+ + + + | HEMOGLOBIN | 5.4 | 4.0 - 5.7 % | [facility], | | | A1C,POC | | | POINT OF | | | | | | CARE TESTS | | + +-------+ + + + + + | Specimen | + + | Blood | + + + + + + + | Performing | Address | City/State/Zipcode | Phone Number | | Organization | | | | + + + + + | [facility], POINT | [address] | [place] [address] | | | OF CARE TESTS | | | | + + + + + COMPLETE METABOLIC SET (NA,K,CL,CO2,BUN,CREAT,GLUC,CA,AST,ALT,BILI TOTAL,ALK PHOS,ALB,PROT TOTAL) (10/25/2010 12:46 PM PDT) + + + + + + | Component | Value | Ref Range | Performed | Pathologist | | | | | At | Signature | + + + + + + | GLUCOSE, | 111 (H) | 60 - 99 mg/dL | [facility] | | | PLASMA | | | DEPARTMENT | | | (LAB) | | | OF | | | | | | PATHOLOGY | | + + + + + + | BUN, PLASMA | 16 | 6 - 20 mg/dL | [facility] | | | (LAB) | | | DEPARTMENT | | | | | | OF | | | | | | PATHOLOGY | | + + + + + + | CREATININE | 1.10 | 0.60 - 1.10 | [facility] | | | PLASMA | | mg/dL | DEPARTMENT | | | (LAB) | | | OF | | | | | | PATHOLOGY | | + + + + + + | TOTAL | 6.3 | 6.1 - 7.9 g/dL | [facility] | | | PROTEIN, | | | DEPARTMENT | | | PLASMA | | | OF | | | (LAB) | | | PATHOLOGY | | + + + + + + | ALBUMIN, | 3.7 | 3.5 - 4.7 g/dL | [facility] | | | PLASMA | | | DEPARTMENT | | | (LAB) | | | OF | | | | | | PATHOLOGY | | + + + + + + | CALCIUM, | 9.3 | 8.6 - 10.2 | [facility] | | | PLASMA | | mg/dL | DEPARTMENT | | | (LAB) | | | OF | | | | | | PATHOLOGY | | + + + + + + | BILIRUBIN | 0.6 | 0.3 - 1.2 mg/dL | [facility] | | | TOTAL | | | DEPARTMENT | | | | | | OF | | | | | | PATHOLOGY | | + + + + + + | ALK PHOS | 107 | 53 - 141 U/L | [facility] | | | | | | DEPARTMENT | | | | | | OF | | | | | | PATHOLOGY | | + + + + + + | AST(SGOT) | 23 | 15 - 41 U/L | [facility] | | | | | | DEPARTMENT | | | | | | OF | | | | | | PATHOLOGY | | + + + + + + | SODIUM, | 141 | 134 - 143 | [facility] | | | PLASMA | | mmol/L | DEPARTMENT | | | (LAB) | | | OF | | | | | | PATHOLOGY | | + + + + + + | POTASSIUM, | 3.9 | 3.4 - 5.0 | [facility] | | | PLASMA | | mmol/L | DEPARTMENT | | | (LAB) | | | OF | | | | | | PATHOLOGY | | + + + + + + | CHLORIDE, | 108 | 97 - 108 mmol/L | [facility] | | | PLASMA | | | DEPARTMENT | | | (LAB) | | | OF | | | | | | PATHOLOGY | | + + + + + + | TOTAL CO2, | 25 | 22 - 29 mmol/L | [facility] | | | PLASMA | | | DEPARTMENT | | | (LAB) | | | OF | | | | | | PATHOLOGY | | + + + + + + | ALT (SGPT) | 26 | 13 - 48 U/L | [facility] | | | | | | DEPARTMENT | | | | | | OF | | | | | | PATHOLOGY | | + + + + + + | EGFR | 59 (L) | >60 mL/min | [facility] | | | - | | | DEPARTMENT | | | ARMENIAN | | | OF | | | | | | PATHOLOGY | | + + + + + + | EGFR NON | 49 (L)Comment: GFR is | >60 mL/min | [facility] | | | -HARMEET | estimated using the MDRD | | DEPARTMENT | | | RICAN | equation recommended by | | OF | | | | theNational Kidney | | PATHOLOGY | | | | Disease Education | | | | | | Program. Estimated GFR | | | | | | Interpretive | | | | | | Information: <60 | | | | | | mL/min/1.73 sq m | | | | | | Chronic Kidney Disease | | | | | | <15 mL/min/1.73 sq m | | | | | | Kidney Failure | | | | | | Estimated GFR greater | | | | | | than 60mL/min/1.73 is of | | | | | | limited clinical Value. | | | | | | The MDRD equation is | | | | | | not valid in the | | | | | | following situations: - | | | | | | Patients under 18 years | | | | | | of age - Severe | | | | | | malnutrition or obesity | | | | | | - Vegetarian diet - | | | | | | Rapidly changing kidney | | | | | | function | | | | + + + + + + | ANION GAP | 8 | 4 - 11 mmol/L | [facility] | | | | | | DEPARTMENT | | | | | | OF | | | | | | PATHOLOGY | | + + + + + + | ANION | 8 | 4 - 11 mmol/L | [facility] | | | GAP(ALB | | | DEPARTMENT | | | CORRECTED) | | | OF | | | | | | PATHOLOGY | | + + + + + + + + | Specimen | + + | Blood - Blood | + + + + + + + | Performing | Address | City/State/Zipcode | Phone Number | | Organization | | | | + + + + + | [facility] | [address] | [place] [address] | | | PATHOLOGY | [address] | | | + + + + + CBC ONLY (10/25/2010 12:46 PM PDT) + + + + + + | Component | Value | Ref Range | Performed | Pathologist | | | | | At | Signature | + + + + + + | WHITE CELL | 5.5 | 4.4 - 11.0 K/cu | [facility] | | | COUNT | | mm | DEPARTMENT | | | | | | OF | | | | | | PATHOLOGY | | + + + + + + | RED CELL | 3.79 (L) | 4.00 - 5.20 | [facility] | | | COUNT | | M/cu mm | DEPARTMENT | | | | | | OF | | | | | | PATHOLOGY | | + + + + + + | HEMOGLOBIN | 12.4 | 12.0 - 16.0 | [facility] | | | | | g/dL | DEPARTMENT | | | | | | OF | | | | | | PATHOLOGY | | + + + + + + | HEMATOCRIT | 35.7 (L) | 36.0 - 46.0 % | [facility] | | | | | | DEPARTMENT | | | | | | OF | | | | | | PATHOLOGY | | + + + + + + | MCV | 94.1 | 80.0 - 96.0 fL | [facility] | | | | | | DEPARTMENT | | | | | | OF | | | | | | PATHOLOGY | | + + + + + + | MCHC | 34.8 | 33.4 - 35.5 | [facility] | | | | | g/dL | DEPARTMENT | | | | | | OF | | | | | | PATHOLOGY | | + + + + + + | RDW | 13.7 | 11.5 - 15.0 % | [facility] | | | | | | DEPARTMENT | | | | | | OF | | | | | | PATHOLOGY | | + + + + + + | PLATELET | 268 | 150 - 400 K/cu | [facility] | | | COUNT | | mm | DEPARTMENT | | | | | | OF | | | | | | PATHOLOGY | | + + + + + + + + | Specimen | + + | Blood - Blood | + + + + + + + | Performing | Address | City/State/Zipcode | Phone Number | | Organization | | | | + + + + + | [facility] DEPARTMENT OF | [address] [facility] [facility] [facility] [facility] | [place] [address] | | | PATHOLOGY | [address] | | | + + + + + TYPE AND SCREEN (10/25/2010 12:46 PM PDT) + + + + + + | Component | Value | Ref Range | Performed | Pathologist | | | | | At | Signature | + + + + + + | ABO GROUP | B | | [facility] | | | | | | DEPARTMENT | | | | | | OF | | | | | | PATHOLOGY | | + + + + + + | RH TYPE | Positive | | [facility] | | | | | | DEPARTMENT | | | | | | OF | | | | | | PATHOLOGY | | + + + + + + | Antibody | Negative | | [facility] | | | Screen | | | DEPARTMENT | | | | | | OF | | | | | | PATHOLOGY | | + + + + + + + + | Specimen | + + | Blood - Blood | + + + + + + + | Performing | Address | City/State/Zipcode | Phone Number | | Organization | | | | + + + + + | [facility] | [address] | [place] [address] | | | PATHOLOGY | [address] | | | + + + + + documented in this encounter Visit Diagnoses + + | Diagnosis | + + | Pre-op evaluation Preoperative examination, unspecified | + + | Preop examination Preoperative examination, unspecified | + + | Diabetes mellitus screening Screening for diabetes mellitus | + + | Other specified pre-operative examination | + + documented in this encounter
--- OUTSIDE RECORDS SUMMARY | ~2019-10-14 | XMS | Encounter Summary ---
Demographics + + + | Address | [address] | | | [place] [address] | + + + | Home Phone | | + + + | Preferred Language | Unknown | + + + | Marital Status | | + + + | Protestant Affiliation | NRP | + + + | Race | White | + + + | Ethnic Group | Not or | + + + Author + + + | Author | [facility] | + + + | Organization | [facility] | + + + | Address | Unknown | + + + | Phone | Unavailable | + + + Support + + + + + | Name | Relationship | Address | Phone | + + + + + | Matthew Ramirez | CHRIS | [address] | | | | | [place] | | | | | [address] | | + + + + + | Nella Haque | ECON | Unknown | | + + + + + Care Team Providers + +------+ + | Care Law Clerk Name | Role | Phone | + +------+ + | Long Copeland MD | PCP | | + +------+ + Reason for Visit + + + | Reason | Comments | + + + | Oral Chemo | tamoxifen | + + + Encounter Details +--------+ + + + + | Date | Type | Department | Care Team | Description | +--------+ + + + + | 03/18/ | Telephone | [facility] | Gregg Ordoñez PharmD | Oral Chemo | | 2019 | | Clinics at | [address] [facility] | (tamoxifen) | | | | [facility] | [address] [facility], | | | | | [facility] and | [place] [address] | | | | | Healing [address] | | | | | | [place], [place] | | | | | | [address] | | | | | | [phone] | | | +--------+ + + + [...]
--- OUTSIDE RECORDS SUMMARY | ~2019-10-14 | XMS | Encounter Summary ---
Demographics + + + | Address | [address] | | | [place] [address] | + + + | Home Phone | | + + + | Preferred Language | Unknown | + + + | Marital Status | | + + + | Gnosticist Affiliation | Unknown | + + + | Race | Unknown | + + + | Ethnic Group | Unknown | + + + Author + + + | Author | [facility] | | | and [place] | + + + | Organization | [facility] | | | and [place] | [...] + + + | Matthew Ramirez | ECON | [address] | | | | | [place] | | | | | [address] | | + + + + + Care Team Providers + +------+ + | Care Ammonia Print Operator Name | Role | Phone | + +------+ + | Ashly Rojo PA-C | PCP | | + +------+ + Reason for Visit Auth/Cert +--------+--------+ + + + + | Status | Reason | Specialty | Diagnoses / | Referred By | Referred To | | | | | Procedures | Contact | Contact | +--------+--------+ + + + + | | | | Diagnoses | | | | | | | Unknown | | | | | | | Procedures | | | | | | | OR REPAIR OF | | | | | | | | | | | | | | REENA QUACH | | | | | | | E | | | | | | | ARTHROPLASTY | | | | | | | 3rd and 4th | | | | | | | Digits with | | | | | | | Impalnt | | | | | | | Revision | | | +--------+--------+ + + + + Encounter Details +--------+---------+ + + + | Date | Type | Department | Care Team | Description | +--------+---------+ + + + | 02/13/ | Surgery | [facility] | Jose Randall | ARTHROPLASTY 3rd and | | 2018 | | [facility] | JACKIE [address]on [address] | 4th Digits with | | | | [address] [place] | RAJWINDER CAIN, | Impalnt Revision | | | | [place], [place] | [place] [address] | | | | | [address] | [phone] | | | | | [phone] | | | +--------+---------+ + + + [...] + + + | Blood Pressure | 128/50 | 02/13/2018 3:25 PM | | | | | PDT | | + + + + + | Pulse | 73 | 02/13/2018 3:25 PM | | | | | PDT | | + + + + + | Temperature | 36.6 C (97.9 F) | 02/13/2018 3:25 PM | | | | | PDT | | + + + + + | Respiratory Rate | 16 | 02/13/2018 3:25 PM | | | | | PDT | | + + + + + | Oxygen Saturation | 95% | 02/13/2018 3:25 PM | | | | | PDT | | + + + + + | Inhaled Oxygen | - | - | | | Concentration | | | | + + + + + | Weight | 90.7 kg (200 lb) | 02/12/2018 11:33 AM | | | | | PDT | | + + + + + | Height | - | - | | + + + + + | Body Mass Index | 29.53 | 11/24/2009 12:00 AM | | | | | PDT | | + + + + + documented in this encounter Discharge Instructions Jose Vaughn DPM - 02/13/2018Jose puga documented in this encounter Medications at Time of Discharge + + + +---------+ + + | Medication | Sig | Dispensed | Refills | Start | End Date | | | | | | Date | | + + + +---------+ + + | ALPRAZolam (XANAX) | Take 0.25 mg by | | 0 | 01/23/20 | | | 0.25 mg tablet | mouth as needed. | | | 12 | | + + + +---------+ + + | Ascorbic Acid | Take 1,000 mg by | | 0 | 01/23/20 | | | (VITAMIN C) 1000 MG | mouth Daily. | | | 12 | | | tablet | | | | | | + + + +---------+ + + | cholecalciferol | Take 1,000 Units by | | 0 | 01/23/20 | | | (VITAMIN D-3) 1000 | mouth Daily. | | | 12 | | | UNITS TABS | | | | | | + + + +---------+ + + | DULoxetine | Take 60 mg by mouth | | 0 | 02/15/20 | | | (CYMBALTA) [address] | Daily. | | | 17 | | | capsule | | | | | | + + + +---------+ + + | levothyroxine | Take 112 mcg by | | 0 | 01/23/20 | | | (SYNTHROID, | mouth Daily. | | | 12 | | | LEVOTHROID) 112 mcg | | | | | | | tablet | | | | | | + + + +---------+ + + | vitamin B-12 | Take 1,000 mcg by | | 0 | 01/23/20 | | | (CYANOCOBALAMIN) | mouth Daily. | | | 12 | | | 1000 MCG tablet | | | | | | + + + +---------+ + + | albuterol (PROAIR | 2 puffs every 4 to 6 | | 0 | 01/23/20 | | | HFA) 90 mcg/puff | hours as needed | | | 12 | 9 | | inhaler | | | | | | + + + +---------+ + + | Calcium | 2 tablets by mouth | | 0 | 01/23/20 | | | Carbonate-Vitamin D | daily | | | 12 | 9 | | (CALCIUM + D) | | | | | | | 600-200 MG-UNIT TABS | | | | | | + + + +---------+ + + | CINNAMON PO | Take by mouth | | 0 | | | | | Daily. | | | | 9 | + + + +---------+ + + | doxepin (SINEQUAN) | 2 capsules by mouth | | 0 | 01/23/20 | | | 75 MG capsule | at bedtime | | | 12 | 9 | + + + +---------+ + + | DULoxetine | | | 0 | 02/15/20 | | | (CYMBALTA) [address] | | | | 17 | 9 | | capsule | | | | | | + + + +---------+ + + | esomeprazole | Take 40 mg by mouth | | 0 | 01/23/20 | | | (NEXIUM) 40 mg | 2 times daily. | | | 12 | 9 | | capsule | | | | | | + + + +---------+ + + | | Inhale 1 puff into | | 0 | | | | fluticasone-salmeter | the lungs Twice | | | | 9 | | ol (ADVAIR) 250-50 | Daily. | | | | | | mcg/puff diskus | | | | | | | inhaler | | | | | | + + + +---------+ + + | | 2 capsules by mouth | | 0 | 01/23/20 | | | Glucosamine-Chondroi | daily | | | 12 | 9 | | t-Vit C-Mn | | | | | | | (GLUCOSAMINE CHONDR | | | | | | | 500 COMPLEX) CAPS | | | | | | + + + +---------+ + + | | | | 0 | 02/15/20 | | | HYDROcodone-acetamin | | | | 17 | 9 | | ophen (NORCO) 5-325 | | | | | | | mg per tablet | | | | | | + + + +---------+ + + | | 1 to 2 tablets by | | 0 | 01/23/20 | | | oxyCODONE-acetaminop | mouth every 8 hours | | | 12 | 9 | | hen (PERCOCET) 5-325 | as needed | | | | | | mg per tablet | | | | | | + + + +---------+ + + | Triamcinolone | AERS Nasal spray as | | 0 | 01/23/20 | | | Acetonide (NASACORT | needed | | | 12 | 9 | | AQ NA) | | | | | | + + + +---------+ + + documented as of this encounter Plan of Treatment Not on filedocumented as of this encounter Procedures + +--------+ + + + | Procedure Name | Priori | Date/Time | Associated Diagnosis | Comments | | | ty | | | | + +--------+ + + + | XR FOOT LEFT 2 VW | Routin | 02/13/2018 | | Results for this | | | e | 2:33 PM | | procedure are in the | | | | PDT | | results section. | + +--------+ + + + | ARTHROPLASTY TOE | | 02/13/2018 | Unknown | | | | | 1:05 PM | | | | | | PDT | | | + +--------+ + + + documented in this encounter Results XR Foot Left 2 Vw (02/13/2018 2:33 PM PDT) + + | Specimen | + + | | + + + + + | Impressions | Performed At | + + + | IMPRESSION: Fluoroscopic assistance provided during surgery. | [facility] | | Dictated by: Jason Burns | | + + + + + + | Narrative | Performed At | + + + | EXAMINATION: XR FOOT LEFT 2 VW HISTORY: Surgical | [facility] | | COMPARISON STUDY: 07/04/2017 FINDINGS: Interval removal of pins | | | from the 2nd, 3rd, and 4th toe noted. Fluoroscopic assistance | | | intraoperatively provided. 2 images are captured. 35 seconds | | | fluoroscopic time utilized. If concern for acute fracture remains | | | clinically follow-up images in 10 to 14 days recommended. . | | + + + + + | Procedure Note | + + | [place], Rad Results In - 02/13/2018 3:47 PM PDT EXAMINATION:XR FOOT LEFT 2 | | VWHISTORY:SurgicalCOMPARISON STUDY:07/04/2017FINDINGS:Interval removal of pins from the | | 2nd, 3rd, and 4th toe noted. Fluoroscopic assistance intraoperatively provided. 2 | | images are captured. 35 seconds fluoroscopic time utilized.If concern for acute | | fracture remains clinically follow-up images in 10 to 14 days recommended. .IMPRESSION: | | IMPRESSION:Fluoroscopic assistance provided during surgery.Dictated by: Jason | | Grant | |07/04/2017 | | | |FINDINGS: | |Interval removal of pins from the 2nd, 3rd, and 4th toe noted. Fluoroscopic assistance int raoperatively provided. 2 images are captured. 35 seconds fluoroscopic time utilized. | |If concern for acute fracture remains clinically follow-up images in 10 to 14 days recommen ded. . | | | |IMPRESSION: | |IMPRESSION: | |Fluoroscopic assistance provided during surgery. | | | |Dictated by: Jason Burns | | | | | + + + +---------+ + + | Performing | Address | City/State/Zipcode | Phone Number | | Organization | | | | + +---------+ + + | [facility] | | | | + +---------+ + + documented in this encounter Visit Diagnoses Not on filedocumented in this encounter Administered Medications + +--------+ +--------+------+------+ | Medication Order | MAR | Action | Dose | Rate | Site | | | Action | Date | | | | + +--------+ +--------+------+------+ | bupivacaine (PF) (MARCAINE) | Given | 02/14/20 | 10 mLs | | | | 0.5% injection PRN, Starting Fri | | 18 2:30 | | | | | 02/13/18 at 1430, Intra-op | | PM PDT | | | | + +--------+ +--------+------+------+ +---+---+ | | | +---+---+ + +---------+ +-----+-------+---+ | ceFAZolin in dextrose (ANCEF) | New Bag | 02/14/20 | 2 g | 100 | | | IVPB 2 g 2 g, Intravenous, | | 18 12:57 | | mL/hr | | | Administer over 30 Minutes, Prior | | PM PDT | | | | | to Incision, Starting Fri | | | | | | | 02/13/18 at 1213, For 1 dose, Give | | | | | | | within one hour prior to | | | | | | | incision., Pre-op, Indications: | | | | | | | Surgical Prophylaxis | | | | | | + +---------+ +-----+-------+---+ +---+---+ | | | +---+---+ + +-------+ +--------+---+ + | lidocaine (PF) 1% injection | Given | 02/14/20 | 20 mLs | | Foot-Lef | | PRN, Starting 02/13/18 at | | 18 1:28 | | | t | | 1328, Intra-op | | PM PDT | | | | + +-------+ +--------+---+ + +---+---+ | | | +---+---+ documented in this encounter"
--- OUTSIDE RECORDS SUMMARY | ~2019-10-14 | XMS | Encounter Summary ---
Demographics + + + | Address | [address] | | | [place] [address] | + + + | Home Phone | | + + + | Preferred Language | Unknown | + + + | Marital Status | | + + + | Rastafarian Affiliation | NRP | + + + | Race | White | + + + | Ethnic Group | Not or | + + + Author + + + | Author | [facility] | + + + | Organization | [facility] | + + + | Address | Unknown | + + + | Phone | Unavailable | + + + Support + + + + + | Name | Relationship | Address | Phone | + + + + + | Matthew Ramirez | CHRIS | [address] | | | | | [place] | | | | | [address] | | + + + + + | Nella Haque | ECON | Unknown | | + + + + + Care Team Providers + +------+ + | Care Hydro Mechanic Name | Role | Phone | + +------+ + | Long Copeland MD | PCP | | + +------+ + Encounter Details +--------+ + + + + | Date | Type | Department | Care Team | Description | +--------+ + + + + | 01/28/ | Procedure | Radiology/Imaging | | | | 2019 | Pass | Lab at [facility] [address] | | | | | | [address] Mailcode: | | | | | | [facility] | | | | | | [facility], | | | | | | [place] [address] [facility] | | | | | | [place], [place] | | | | | | [address] | | | | | | [phone] | | | +--------+ + + + [...]
--- OUTSIDE RECORDS SUMMARY | ~2019-10-14 | XMS | Encounter Summary ---
Demographics + + + | Address | [address] | | | [place] [address] | + + + | Home Phone | | + + + | Preferred Language | Unknown | + + + | Marital Status | | + + + | Worship Affiliation | NRP | + + + | Race | White | + + + | Ethnic Group | Not or | + + + Author + + + | Author | [facility] | + + + | Organization | [facility] | + + + | Address | Unknown | + + + | Phone | Unavailable | + + + Support + + + + + | Name | Relationship | Address | Phone | + + + + + | Matthew Ramirez | CHRIS | [address] | | | | | [place] | | | | | [address] | | + + + + + | Nella Haque | ECON | Unknown | | + + + + + Care Team Providers + +------+ + | Care Fruit Tester Name | Role | Phone | + +------+ + | Long Copeland MD | PCP | | + +------+ + Reason for Visit + + + | Reason | Comments | + + + | Infection of bladder | surgery 10/26/10, urogyn | + + + Encounter Details +--------+ + + + + | Date | Type | Department | Care Team | Description | +--------+ + + + + | 10/22/ | [facility]phone [facility] Avis Rios | Infection of bladder | | 2010 | | [facility] | MD Gillian [address] | (surgery 10/26/10, | | | | [address] [address] | [facility] | urogyn) | | | | [address] [place] [address] | [place], [place] | | | | | [place], [address] [place] [address] | [address] | | | | | [place], [place] | [phone] | | | | | [address] | | | | | | [phone] | | | +--------+ + + + [...] | + +--------+ + + + | CULTURE, URINE BACTI | Routin | 10/22/2010 | UTI (urinary tract | Results for this | | | e | 1:35 PM | infection) | procedure are in the | | | | PDT | | results section. | + +--------+ + + + documented in this encounter Results CULTURE, URINE BACTI (10/22/2010 1:35 PM PDT) + + | Specimen | + + | Urine - Clean catch | | midstream. | + + + + + | Narrative | Performed At | + + + | > 100,000 CFU/mL Escherichia Coli Susceptible to: Ampicillin, | [facility] | | Amox/Clav Acid, Amikacin, Aztreonam, Ciprofloxacin, Ceftriaxone, | - [place] | | Cefazolin, Ertapenem, Cefepime, Ertapenem, Cefepime, Nitrofurantion, | | | Gentamicin, Imipenem, Levofloxacin, Meropenem, Trimethoprim/Sulfa, | | | Tetracycline | | + + + + + + + + | Performing | Address | City/State/Zipcode | Phone Number | | Organization | | | | + + + + + | [facility] - | [address] | [place], [place] | | | [place] | [address] | [address] | | + + + + + documented in this encounter Visit Diagnoses + + | Diagnosis | + + | UTI (urinary tract infection) - Primary Urinary tract infection, site not specified | + + documented in this encounter"
--- OUTSIDE RECORDS SUMMARY | ~2019-10-14 | XMS | Encounter Summary ---
Demographics + + + | Address | [address] | | | [place] [address] | + + + | Home Phone | | + + + | Preferred Language | Unknown | + + + | Marital Status | | + + + | Restorationism Affiliation | NRP | + + + | Race | White | + + + | Ethnic Group | Not or | + + + Author + + + | Author | [facility] | + + + | Organization | [facility] | + + + | Address | Unknown | + + + | Phone | Unavailable | + + + Support + + + + + | Name | Relationship | Address | Phone | + + + + + | Matthew Ramirez | CHRIS | [address] | | | | | [place] | | | | | [address] | | + + + + + | Nella Haque | ECON | Unknown | | + + + + + Care Team Providers + +------+ + | Care Ultrasound Sonographer Name | Role | Phone | + +------+ + | Long Copeland MD | PCP | | + +------+ + Reason for Visit +---------+ + | Reason | Comments | +---------+ + | Post Op | | +---------+ + Consult to [place] (Routine) +--------+--------+ + + + + | Status | Reason | Specialty | Diagnoses / | Referred By | Referred To | | | | | Procedures | Contact | Contact | +--------+--------+ + + + + | Closed | | Obstetrics & | Diagnoses | Rios, | [facility] | | | | Gynecology | 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 | [address] | [place] | | | | | (ISD) | [address] | [address] | | | | | Urinary | Rd | floor | | | | | stress | [place], [place] | [place], [place] | | | | | incontinence | [address] | [address] | | | | | Procedures | Phone: | Phone: | | | | | REQUEST TO | [phone] | [phone] | | | | | SURGERY | Fax: | Fax: | | | | | SOLAR FABRICATION TECHNICIAN | [phone] | [phone] | | | | | [place] | | | | | | | [place]ST[place] | | | | | | | [place] | | | | | | | SLING OPER | | | | | | | STRES | | | | | | | INCONTINENCE | | | +--------+--------+ + + + + Encounter Details +--------+---------+ + + + | Date | Type | Department | Care Team | Description | +--------+---------+ + + + | 11/29/ | Office | [facility] | Avis Rios | Postop check | | 2010 | Visit | [facility] | MD [place]ian [address] | (Primary Dx) | | | | [address] | [address] | | | | | [address] | [place], [place] | | | | | [place], [facility] floor | [address] | | | | | [place], [place] | [phone] | | | | | [address] | | | | | | [phone] | | | +--------+---------+ + + + [...] + + + | Blood Pressure | 140/88 | 11/29/2010 10:56 AM | | | | | PDT | | + + + + + | Pulse | 72 | 11/29/2010 10:56 AM | | | | | PDT | | + + + + + | Temperature | 36.6 C (97.8 F) | 11/29/2010 10:56 AM | | | | | PDT | | + + + + + | Respiratory Rate | - | - | | + + + + + | Oxygen Saturation | - | - | | + + + + + | Inhaled Oxygen | - | - | | | Concentration | | | | + + + + + | Weight | - | - | | + + + + + | Height | - | - | | + + + + + | Body Mass Index | - | - | | + + + + + documented in this encounter Patient Instructions Patient Instructions Avis Rios MD - 11/29/2010 11:24 AM PDTHydrochlorothiazide (HCTZ) common water pill for patients with hypertension documented in this encounter Progress Notes Avis Rios MD - 11/29/2010 11:16 AM PDTHPI: Ms. Ramirez is a reporting the following problems: Very pleased with her surgical procedure as she is back to her much smaller baseline of chantell kage that she previously experienced - this was her goal, not complete resolution of her chantell kage which we knew was unlikely given her ISD Main time she leaks is at night and with urgency Doesn't wake up to go to the BR at night; takes doxepin to sleep and wears a pad to control leakage rather than get up multiple times during the night to void; she is aware that this is from her bilateral pedal edema; she previously was on spironolactone but had to d/c due t o dizziness Gets urge to void now when previously she had continuous wetness so never even felt an urge ; Continuous leakage is gone GENERAL PELVIC EXAM BP 140/88 | Pulse 72 | Temp 36.6 C (97.8 F) EXTERNAL GENITALIA: Atrophic; lichen sclerosis URETHRA: Normal BLADDER: Non tender to palpation VAGINA Well-supported no suture or mesh erosion seen ANUS & PERINEUM: Normal Appearance SUPINE PELVIC ORGAN PROLAPSE QUANTIFICATION (POPQ) TEST Character of Anterior Vaginal Defect None Character of Posterior Vaginal Defect None ASSESSMENT SYMPTOMS DISCUSSED Mixed incontinence - sounds by history urge predominant although may also be overflow relat ed to large nocturnal diuresis; markedly improved relative to pre-op and manageable Does not leak with coughing even with her bronchitis PHYSICAL FINDINGS well healed surgical wounds RECOMMENDATIONS Follow up PRN review of urodynamics shows no DO but only filled to 350cc due to severe ISD; pt is not int erested in taking any additional meds so would not choose to start anti-cholinergics as jaun peña recommended talking with her PCP about resuming a diuretic for bilateral pedal edema that i s leading to nocturia and leakage documented in t his encounter Plan of Treatment Not on filedocumented as of this encounter Visit Diagnoses + + | Diagnosis | + + | Postop check - Primary Follow-up examination, following unspecified surgery | + + documented in this encounter"
--- OUTSIDE RECORDS SUMMARY | ~2019-10-14 | XMS | Encounter Summary ---
Demographics + + + | Address | [address] | | | [place] [address] | + + + | Home Phone | | + + + | Preferred Language | Unknown | + + + | Marital Status | | + + + | Anglican Affiliation | Unknown | + + + | Race | Unknown | + + + | Ethnic Group | Unknown | + + + Author + + + | Author | [facility] | | | and [place] | + + + | Organization | [facility] | | | and [place] [...] + | Matthew Ramirez | ECON | [address] | | | | | [place] | | | | | [address] | | + + + + + Care Team Providers + +------+ + | Care Senior Sustainability Consultant Name | Role | Phone | + [...] | | | | Diagnoses | | [place], | | | | | Rectal | | Matthew MD | | | | | bleeding | | [address] | | | | | Diarrhea, | | [place], | | | | | unspecified | | [place] [address] | | | | | type | | Phone: | | | | | Chronic | | [phone] | | | | | abdominal | | Fax: | | | | | pain | | [phone] | | | | | 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 | | | | | | | (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, | | | | | | | episodic use | | | | | | | (HCC) LUQ | | | | | | | pain | | | | | | | Alternating | | | | | | | constipation | | | | | | | and | | | | | | | diarrhea | | | | | | | Hematochezia | | | | | | | Weight | | | | | | | loss, | | | | | | | unintentiona | | | | | | | l | | | | | | | Procedures | | | | | | | AL | | | | | | | ESOPHAGOGAST | | | | | | | RODUODENOSCO | | | | | | | PY TRANSORAL | | | | | | | DIAGNOSTIC | | | | | | | AL EGD | | | | | | | TRANSORAL | | | | | | | BIOPSY | | | | | | | SINGLE/MULTI | | | | | | | PLE AL | | | | | | | COLONOSCOPY | | | | | | | FLX DX | | | | | | | W/COLLJ SPEC | | | | | | | WHEN PFRMD | | | | | | | AL | | | | | | | COLONOSCOPY | | | | | | | W/BIOPSY | | | | | | | SINGLE/MULTI | | | | | | | PLE AL | | | | | | | COLSC FLX | | | | | | | W/RMVL OF | | | | | | | TUMOR POLYP | | | | | | | LESION SNARE | | | | | | | TQ AL | | | | | | | ANESTHESIA | | | | | | | COMBINED | | | | | | | UPPER&LOWER | | | | | | | GI | | | | | | | ENDOSCOPIC | | | | | | | PX EGD | | | | | | | COLONOSCOPY | | | +--------+--------+ + + + + Encounter Details +--------+ + + + + | Date | Type | Department | Care Team | Description | +--------+ + + + + | 12/17/ | Anesthesia | [facility] | Devon Murdock | | | 2019 | Event | [facility] | DO Matthew [address] | | | | | [address] | [address] | | | | | [place] | [place] [address] | | | | | [address] | [phone] | | | | | [phone] | | | +--------+ + + + + Anesthesia Record + + + + + | Procedure Name | Responsible | Anesthesia Start | Anesthesia Stop Time | | | Anesthesiologist | Time | | + + + + + | EKATERINA (N/A Brendan) | Devon Murdock, | 12/17/18 1510 | 12/17/18 1603 | | | DO | | | + + + + + +----+---+ + + | Da | T | Event | Comment | | te | i | | | | | m | | | | | e | | | +----+---+ + + | 08 | 1 | An Checkout | Pre-use anesthesia machine/equipment checkout. | | /0 | 4 | | | | 8/ | 5 | | | | 20 | 8 | | | | 19 | | | | +----+---+ + + | | 1 | | | | | 5 | | | | | 0 | | | | | 4 | | | +----+---+ + + | | 1 | An Start | Reassessment prior to anesthesia induction/procedure. | | | 5 | | | | | 1 | | | | | 0 | | | +----+---+ + + | | 1 | AN | Per surgeon request | | | 5 | Antibiotic | | | | 1 | declined | | | | 1 | | | +----+---+ + + | | 1 | Pre-Procedu | | | | 5 | ral Timeout | | | | 1 | Completed | | | | 2 | | | +----+---+ + + | | 1 | An | | | | 5 | Induction | | | | 1 | | | | | 5 | | | +----+---+ + + | | 1 | Breathing | | | | 5 | Spontaneous | | | | 1 | ly | | | | 5 | | | +----+---+ + + | | 1 | First | | | | 5 | Inc/Proc St | | | | 1 | | | | | 6 | | | +----+---+ + + | | 1 | An Stop | Patient handed off to recovery nurse. | | | 0 | | | | | 3 | | | +----+---+ + + +------+ | Meds | +------+ + + + | Name | Total | + + + | propofol (DIPRIVAN) injection | 70 mg | | (bolus) (20 mL) | | + + + | propofol | 598.26 mg | + + + | lidocaine 2% | 100 mg | + + + | lactated ringers (LR) infusion | 1,000 mL | + + + + + | No agents on file. | + + + + | No blood administrations on file. | + + +--------+ + + + | Type | Details | Placement | Removal | +--------+ + + + | Periph | 12/17/18; 1413; Right; Forearm; | 12/17/18 1413 by | 12/17/18 1622 by | | nicolas | utbs-dzk-haehva catheter system; | Gris Davis RN | Gris Davis RN | | IV | 20 gauge; distraction, | | | | | intradermal injection; no longer | | | | | indicated; 12/17/18; 1622 | | | +--------+ + + + documented in this encounter Social History + +-------+ +--------+------+ | Tobacco [...] | | | + +--------+ +--------+------+------+ | lidocaine (PF) 2% injection | Given | 12/18/19 | 100 mg | | | | Intravenous, PRN, Starting Leona | | 19 3:13 | | | | | 12/17/18 at 1513, Anesthesia | | PM PDT | | | | | Intra-op | | | | | | + +--------+ +--------+------+------+ +---+---+ | | | +---+---+ + + + + + +---+ | propofol (DIPRIVAN) injection | Rate/Dos | 12/18/19 | 160 | 85 mL/hr | | | Intravenous, CONTINUOUS PRN, | e Change | 19 3:38 | mcg/kg/m | | | | Starting Leona 12/17/18 at 1513, | | PM PDT | in | | | | Anesthesia Intra-op | | | | | | + + + + + +---+ +---------+ + +--------+---+ | New Bag | 12/18/19 | 200 | 106.2 | | | | 19 3:13 | mcg/kg/m | mL/hr | | | | PM PDT | in | | | +---------+ + +--------+---+ +---+---+ | | | +---+---+ + +-------+ +-------+---+---+ | propofol (DIPRIVAN) injection | Given | 12/18/19 | 30 mg | | | | Intravenous, PRN, Starting Leona | | 19 3:17 | | | | | 12/17/18 at 1513, Anesthesia | | PM PDT | | | | | Intra-op | | | | | | + +-------+ +-------+---+---+ +-------+ +-------+---+---+ | Given | 12/18/19 | 40 mg | | | | | 19 3:13 | | | | | | PM PDT | | | | +-------+ +-------+---+---+ +---+---+ | | | +---+---+ documented in this encounter"
--- OUTSIDE RECORDS SUMMARY | ~2019-10-14 | XMS | Encounter Summary ---
Demographics + + + | Address | [address] | | | [place] [address] | + + + | Home Phone | | + + + | Preferred Language | Unknown | + + + | Marital Status | | + + + | Scientologist Affiliation | NRP | + + + | Race | White | + + + | Ethnic Group | Not or | + + + Author + + + | Author | [facility] | + + + | Organization | [facility] | + + + | Address | Unknown | + + + | Phone | Unavailable | + + + Support + + + + + | Name | Relationship | Address | Phone | + + + + + | Matthew Ramirez | CHRIS | [address] | | | | | [place] | | | | | [address] | | + + + + + | Nella Haque | ECON | Unknown | | + + + + + Care Team Providers + +------+ + | Care Mechanical Design Technician Name | Role | Phone | + +------+ + | Long Copeland MD | PCP | | + +------+ + Reason for Visit + + + | Reason | Comments | + + + | Prescription | TRAMADOL 50 mg | + + + Encounter Details +--------+--------+ + + + | Date | Type | Department | Care Team | Description | +--------+--------+ + + + | 08/23/ | Refill | [facility] | Rodriguez Bower MD | Prescription | | 2019 | | [facility] | [address] | (TRAMADOL 50 mg) | | | | [facility] | [place], [place] | | | | | for Health and | [address] | | | | | Healing [address] | [phone] | | | | | [place], [place] | | | | | | [address] | | | | | | [phone] | | | +--------+--------+ + + + [...]
--- OUTSIDE RECORDS SUMMARY | ~2019-10-14 | XMS | Encounter Summary ---
Demographics + + + | Address | [address] | | | [place] [address] | + + + | Home Phone | | + + + | Preferred Language | Unknown | + + + | Marital Status | | + + + | Sabianist Affiliation | NRP | + + + | Race | White | + + + | Ethnic Group | Not or | + + + Author + + + | Author | [facility] | + + + | Organization | [facility] | + + + | Address | Unknown | + + + | Phone | Unavailable | + + + Support + + + + + | Name | Relationship | Address | Phone | + + + + + | Matthew Ramirez | CHRIS | [address] | | | | | [place] | | | | | [address] | | + + + + + | Nella Haque | ECON | Unknown | | + + + + + Care Team Providers + +------+ + | Care Pediatric Assistant Name | Role | Phone | + [...] Clin[facility] | [address] [facility] | | | | | [facility] | [place], [place] | | | | | Health and | [address] | | | | | Healing [address] | [phone] | | | | | [address] [place], [place] | | | | | | [address] | | | | | | [phone] | | | +--------+--------+ + + + [...]
--- OUTSIDE RECORDS SUMMARY | ~2019-10-14 | XMS | Encounter Summary ---
Demographics + + + | Address | [address] | | | [place] [address] | + + + | Home Phone | | + + + | Preferred Language | Unknown | + + + | Marital Status | | + + + | Catholic Affiliation | Unknown | + + + | Race | Unknown | + + + | Ethnic Group | Unknown | + + + Author + + + | Author | [facility] | | | and [place] | + + + | Organization | [facility] | [...] + | Matthew Ramirez | ECON | [address] | | | | | [place] | | | | | [address] | | + + + + + Care Team Providers + +------+ + | Care Notching Machine Operator Name | Role | Phone | [...] + + | 01/15/ | Telephone | [facility] | Arpan, | Patient Concerns | | 2019 | | MED [facility] | Luis Richards MD [address] | | | | | [facility] [address] | [facility] | | | | | [address] | [place] [address] | | | | | [place] [address] | [phone] | | | | | [phone] | | | +--------+ + + + [...]
--- OUTSIDE RECORDS SUMMARY | ~2019-10-14 | XMS | Encounter Summary ---
Demographics + + + | Address | [address] | | | [place] [address] | + + + | Home Phone | | + + + | Preferred Language | Unknown | + + + | Marital Status | | + + + | Shinto Affiliation | NRP | + + + | Race | White | + + + | Ethnic Group | Not or | + + + Author + + + | Organization | Unknown | + + + | Address | Unknown | + + + | Phone | Unavailable | + + + Support + + + + + | Name | Relationship | Address | Phone | + + + + + | Matthew Ramirez | ECON | [address] | | | | | [place] | | | | | [address] | | + + + + + | Nella Haque | ECON | Unknown | | + + + + + Care Team Providers + +------+ + | Care Health Social Work Professor Name | Role | Phone | + +------+ + | Long Copeland MD | PCP | | + +------+ + Encounter Details +--------+--------+ + + + | Date | Type | Department | Care Team | Description | +--------+--------+ + + + | 02/02/ | Travel | | | | | 2018 | | | | | +--------+--------+ + + + [...]
--- OUTSIDE RECORDS SUMMARY | ~2019-10-14 | XMS | Encounter Summary ---
Demographics + + + | Address | [address] | | | [place] [address] | + + + | Home Phone | | + + + | Preferred Language | Unknown | + + + | Marital Status | | + + + | Pentecostal Affiliation | Unknown | + + + | Race | Unknown | + + + | Ethnic Group | Unknown | + + + Author + + + | Author | [facility] | | | and [place] | + + + | Organization | [facility] | | | and [place] [...] + | Matthew Ramirez | ECON | [address] | | | | | [place] | | | | | [address] | | + + + + + Care Team Providers + +------+ + | Care Mailroom Coordinator Name | Role | Phone | + +------+ + | Ashly Rojo PA-C | PCP | | + +------+ + Reason for Referral Diagnostic/Screening (Routine) +--------+--------+ + + + + | Status | Reason | Specialty | Diagnoses / | Referred By | Referred To | | | | | Procedures | Contact | Contact | +--------+--------+ + + + + | Closed | | Radiology | Diagnoses | [place], | [address] | | | | | 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 | [address] | | | | | adenocarcino | [address] | [place], | | | | | ma (HCC) | [address] | [place] [address] | | | | | Procedures | [place], [place] | Phone: | | | | | CT Chest | [address] | [phone] | | | | | Abdomen | Phone: | Fax: | | | | | Pelvis w | [phone] | [phone] | | | | | Contrast | Fax: | | | | | | CHG CT | [phone] | | | | | | SCAN,ABDOMEN | | | | | | | AND | | | | | | | PELVIS,W | | | | | | | CONTRAST MT | | | | | | | CAT SCAN OF | | | | | | | CHEST | | | | | | | CONTRAST | | | +--------+--------+ + + + + Evaluate & Treat (Urgent) [...] | | ma (HCC) | [address] | [address] | | | | | | [place], [place] | [place], | | | | | | [address] | [place] [address] | | | | | | Phone: | Phone: | | | | | | [phone] | [phone] | | | | | | Fax: | Fax: | | | | | | [phone] | [phone] | +--------+ + + + + + Reason for Visit + + + | Reason | Comments | + + + | Results, Pathology | | + + + Encounter Details +--------+ + + + + | Date | Type | Department | Care Team | Description | +--------+ + + + + | 12/29/ | Telephone | [facility] | Matthew Shukla MD | Results, Pathology | | 2019 | | GASTROENTEROLOGY | [address] [facility] | | | | | [address] [facility] | [place], [place] | | | | | [address] [place], [place] | [address] | | | | | [address] | [phone] | | | | | [phone] | | | +--------+ + + + [...] +--------+ + + | AMB REFERRAL TO [facility] | Outpatient | Routin | Gastric | Expected: 12/29/2018 | | Medical Oncology | Referral | e | adenocarcinoma (HCC) | (Approximate), | | (cancer center) | | | | Expires: 12/30/2019 | + + +--------+ + + documented as of this encounter Results CT Chest Abdomen Pelvis w Contrast (12/31/2018 11:25 AM PDT) + + | Specimen | + + | | + + + + + | Narrative | Performed At | + + + | TECHNIQUE: After administration of 100 mL Omnipaque 350 | [facility] | | intravenously, axial CT imaging was obtained through the chest, | | | abdomen, and pelvis with coronal and sagittal reformats. CLINICAL | | | INFORMATION: gastric adenocarcinoma COMPARISON: CT dated | | | 08/05/2018 chest radiograph 10/11/2009. FINDINGS: BONES: No | | | osteoblastic or osteolytic lesion. No acute osseous abnormality. | | | CHEST: Chest Wall: No subclavicular or axillary lymphadenopathy. | | | Mediastinum and maggie: No lymphadenopathy. Heart and pericardium: | | | Heart size is normal. No pericardial effusion. Vessels: Normal | | | caliber of the thoracic aorta. Lungs: No significant noncalcified | | | nodule. Punctate calcified nodule at the left lower lobe. No | | | airspace consolidation. Minimal dependent atelectasis. Probable | | | mild centrilobular emphysematous changes. Large airways: | | | Unremarkable. Pleura: No pleural effusion or pneumothorax. | | | ABDOMEN/PELVIS: Abdominal wall: No inguinal lymphadenopathy. | | | Liver: Intrahepatic and extrahepatic biliary ductal dilatation with | | | the common bile duct measuring up to 2.1 cm, stable appearance from | | | prior and this setting of cholecystectomy. No mass lesion | | | identified. Gallbladder: Surgically absent. Pancreas: Fatty | | | infiltration. No mass or ductal dilatation. Spleen: Unremarkable. | | | Adrenals: No nodule. Kidneys: No nephrolithiasis or | | | hydronephrosis. No evidence of a mass lesion. Ureters: No | | | hydroureter. Urinary Bladder: No wall thickening. Reproductive | | | organs: Hysterectomy changes. No adnexal mass. Bowel: No | | | concerning gastric mass lesion identified. There is a stable 10 mm | | | lipoma at the anterior wall of the gastric antrum. No bowel | | | obstruction. Probable appendectomy changes. Scattered colonic | | | diverticula without pericolonic inflammation. Mild to moderate | | | amount stool throughout the majority of the colon. | | | Peritoneum/retroperitoneum: No ascites, free air, or lymphadenopathy. | | | Stable postoperative changes at the anterior abdomen and posterior | | | and left pelvis. Vessels: Normal caliber of the abdominal aorta with | | | after sclerotic vascular disease of the aorta and major branching | | | vessels. IMPRESSION - No concerning gastric mass | | | identified. No findings to suggest metastatic disease. Lipoma | | | within the anterior wall of the gastric antrum. Diverticulosis | | | without diverticulitis. Mild to moderate colonic stool retention. | | | Unchanged biliary ductal dilatation in the setting of prior | | | cholecystectomy. Anterior pelvic and anterior abdominal wall | | | postoperative changes. Dictated and Signed by: Jose | | | MD Claudio Electronically signed: 12/31/2018 3:23 PM | | + + + + + | Procedure Note | + + | [place], Rad Results In - 12/31/2018 3:26 PM PDT TECHNIQUE: After administration of 100 | | mL Omnipaque 350 intravenously, axial CTimaging was obtained through the chest, abdomen, | | and pelvis with coronal andsagittal reformats.CLINICAL INFORMATION: gastric | | adenocarcinomaCOMPARISON: CT dated 08/05/2018 chest radiograph 10/11/2009.FINDINGS:BONES: | | No osteoblastic or osteolytic lesion. No acute osseous abnormality.CHEST:Chest Wall: No | | subclavicular or axillary lymphadenopathy.Mediastinum and maggie: No | | lymphadenopathy.Heart and pericardium: Heart size is normal. No pericardial effusion. | | Vessels: Normal caliber of the thoracic aorta. Lungs: No significant noncalcified | | nodule. Punctate calcified nodule at theleft lower lobe. No airspace consolidation. | | Minimal dependent atelectasis. Probable mild centrilobular emphysematous changes.Large | | airways: Unremarkable.Pleura: No pleural effusion or pneumothorax. | | ABDOMEN/PELVIS:Abdominal wall: No inguinal lymphadenopathy.Liver: Intrahepatic and | | extrahepatic biliary ductal dilatation with the commonbile duct measuring up to 2.1 cm, | | stable appearance from prior and this settingof cholecystectomy. No mass lesion | | identified.Gallbladder: Surgically absent.Pancreas: Fatty infiltration. No mass or | | ductal dilatation.Spleen: Unremarkable.Adrenals: No nodule.Kidneys: No nephrolithiasis | | or hydronephrosis. No evidence of a mass lesion.Ureters: No hydroureter. Urinary | | Bladder: No wall thickening.Reproductive organs: Hysterectomy changes. No adnexal | | mass.Bowel: No concerning gastric mass lesion identified. There is a stable 10 mmlipoma | | at the anterior wall of the gastric antrum. No bowel obstruction. Probable | | appendectomy changes. Scattered colonic diverticula withoutpericolonic inflammation. | | Mild to moderate amount stool throughout the majorityof the | | colon.Peritoneum/retroperitoneum: No ascites, free air, or lymphadenopathy. | | Stablepostoperative changes at the anterior abdomen and posterior and left | | pelvis.Vessels: Normal caliber of the abdominal aorta with after sclerotic | | vasculardisease of the aorta and major branching vessels.IMPRESSION - No concerning | | gastric mass identified. No findings to suggest metastaticdisease.Lipoma within the | | anterior wall of the gastric antrum.Diverticulosis without diverticulitis.Mild to | | moderate colonic stool retention.Unchanged biliary ductal dilatation in the setting of | | prior cholecystectomy.Anterior pelvic and anterior abdominal wall postoperative | | changes.Dictated and Signed by: Jose Snyder MD Electronically signed: 12/31/2018 | | 3:23 PM | |of cholecystectomy. No mass lesion identified. | |Gallbladder: Surgically absent. | |Pancreas: Fatty infiltration. No mass or ductal dilatation. | |Spleen: Unremarkable. | | | |Adrenals: No nodule. | |Kidneys: No nephrolithiasis or hydronephrosis. No evidence of a mass lesion. | |Ureters: No hydroureter. | |Urinary Bladder: No wall thickening. | |Reproductive organs: Hysterectomy changes. No adnexal mass. | | | |Bowel: No concerning gastric mass lesion identified. There is a stable 10 mm | |lipoma at the anterior wall of the gastric antrum. No bowel obstruction. | |Probable appendectomy changes. Scattered colonic diverticula without | |pericolonic inflammation. Mild to moderate amount stool throughout the majority | |of the colon. | |Peritoneum/retroperitoneum: No ascites, free air, or lymphadenopathy. Stable | |postoperative changes at the anterior abdomen and posterior and left pelvis. | |Vessels: Normal caliber of the abdominal aorta with after sclerotic vascular | |disease of the aorta and major branching vessels. | | | | | |IMPRESSION - | | | |No concerning gastric mass identified. No findings to suggest metastatic | |disease. | | | |Lipoma within the anterior wall of the gastric antrum. | | | |Diverticulosis without diverticulitis. | | | |Mild to moderate colonic stool retention. | | | |Unchanged biliary ductal dilatation in the setting of prior cholecystectomy. | | | |Anterior pelvic and anterior abdominal wall postoperative changes. | | | | | | | |Dictated and Signed by: Jose Snyder MD | | Electronically signed: 12/31/2018 3:23 PM | + + + +---------+ + + [...] unspecified | | site | + + documented in this encounter"
--- OUTSIDE RECORDS SUMMARY | ~2019-10-14 | XMS | Encounter Summary ---
Demographics + + + | Address | [address] | | | [place] [address] | + + + | Home Phone | | + + + | Preferred Language | Unknown | + + + | Marital Status | | + + + | Oriental Orthodox Affiliation | NRP | + + + | Race | White | + + + | Ethnic Group | Not or | + + + Author + + + | Author | [facility] | + + + | Organization | [facility] | + + + | Address | Unknown | + + + | Phone | Unavailable | + + + Support + + + + + | Name | Relationship | Address | Phone | + + + + + | Matthew Ramirez | CHRIS | [address] | | | | | [place] | | | | | [address] | | + + + + + | Nella Haque | ECON | Unknown | | + + + + + Care Team Providers + +------+ + | Care Retail Department Supervisor Name | Role | Phone | + +------+ + | Long Copeland MD | PCP | | + +------+ + Reason for Visit + + + | Reason | Comments | + + + | Erroneous Encounter | | | - Disregard | | + + + Benefits Check (Routine) +--------+--------+ + + + + | Status | Reason | Specialty | Diagnoses / | Referred By | Referred To | | | | | Procedures | Contact | Contact | +--------+--------+ + + + + | Closed | | Obstetrics & | | Non[facility] | [facility] | | | | Gynecology | | Epic Dept | [facility] [address] | | | | | | | [place] | | | | | | | [place] | | | | | | | [address] | | | | | | | [facility] | | | | | | | [place], [place] | | | | | | | [address] | | | | | | | Phone: | | | | | | | [phone] | | | | | | | Fax: | | | | | | | [phone] | +--------+--------+ + + + + Encounter Details +--------+ + + + + | Date | Type | Department | Care Team | Description | +--------+ + + + + | 10/03/ | Procedure [facility] Avis Rios | Erroneous Encounter | | 2010 | | [facility] [place] | MD Gillian [address] | - Disregard | | | | [address] | [facility] | | | | | [address] | [place], [place] | | | | | Pavilion, [address]th floor | [address] | | | | | [place], [place] | [phone] | | | | | [address] | | | | | | [phone] | | | +--------+ + + + [...] documented as of this encounter Progress Notes Avis Rios MD - 10/04/2010 2:51 PM PDTThis encounter was opened in error. Ple ase disregard this note. 2 :51 PM PDTdocumented in this encounter Plan of Treatment Not on filedocumented as of this encounter Visit Diagnoses + + | Diagnosis | + + | ERRONEOUS ENCOUNTER - NO DIAGNOSIS - Primary | + + documented in this encounter"
--- OUTSIDE RECORDS SUMMARY | ~2019-10-14 | XMS | Encounter Summary ---
Demographics + + + | Address | [address] | | | [place] [address] | + + + | Home Phone [...] | Author | [facility] | | | and [place] | + + + | Organization | [facility] | | | and [...] + | Matthew Ramirez | ECON | [address] | | | | | [place] | | | | | [address] | | + + + + + Care Team Providers + +------+ + | Care Fish Receiver Name | Role | Phone | + +------+ + | Ashly Rojo PA-C | PCP | | + +------+ + Encounter Details +--------+ + + + + | Date | Type | Department | Care Team | Description | +--------+ + + + + | 01/05/ | Abstract | [facility] | Provider, | | | 2018 | | GASTROENTEROLOGY | MD [address] | | | | | [address] [place] | [place] | | | | | [address] | [place] [address] | | | | | [address] | | | | | | [phone] | | | +--------+ + + + [...] | + +--------+ + + + | EXTERNAL LAB: ODALYS | Routin | 12/30/2018 | | Results for this | | | e | | | procedure are in the | | | | | | results section. | + +--------+ + + + | EXTERNAL LAB: | Routin | 12/30/2018 | | Results for this | | GLUCOSE | e | | | procedure are in the | | | | | | results section. | + +--------+ + + + | EXTERNAL LAB: ALT | Routin | 12/30/2018 | | Results for this | | | e | | | procedure are in the | | | | | | results section. | + +--------+ + + + | EXTERNAL LAB: AST | Routin | 12/30/2018 | | Results for this | | | e | | | procedure are in the | | | | | | results section. | + +--------+ + + + | EXTERNAL LAB: | Routin | 12/30/2018 | | Results for this | | ALKALINE PHOSPHATASE | e | | | procedure are in the | | | | | | results section. | + +--------+ + + + | EXTERNAL LAB: | Routin | 12/30/2018 | | Results for this | | BILIRUBIN, TOTAL | e | | | procedure are in the | | | | | | results section. | + +--------+ + + + | EXTERNAL LAB: | Routin | 12/30/2018 | | Results for this | | ALBUMIN | e | | | procedure are in the | | | | | | results section. | + +--------+ + + + | EXTERNAL LAB: | Routin | 12/30/2018 | | Results for this | | PROTEIN, TOTAL | e | | | procedure are in the | | | | | | results section. | + +--------+ + + + | EXTERNAL LAB: | Routin | 12/30/2018 | | Results for this | | CALCIUM | e | | | procedure are in the | | | | | | results section. | + +--------+ + + + | EXTERNAL LAB: CARBON | Routin | 12/30/2018 | | Results for this | | DIOXIDE | e | | | procedure are in the | | | | | | results section. | + +--------+ + + + | EXTERNAL LAB: | Routin | 12/30/2018 | | Results for this | | CHLORIDE | e | | | procedure are in the | | | | | | results section. | + +--------+ + + + | EXTERNAL LAB: | Routin | 12/30/2018 | | Results for this | | POTASSIUM | e | | | procedure are in the | | | | | | results section. | + +--------+ + + + | EXTERNAL LAB: SODIUM | Routin | 12/30/2018 | | Results for this | | | e | | | procedure are in the | | | | | | results section. | + +--------+ + + + | EXTERNAL LAB: CBC | Routin | 12/30/2018 | | Results for this | | | e | | | procedure are in the | | | | | | results section. | + +--------+ + + + | EXTERNAL LAB: EGFR | Routin | 12/30/2018 | | Results for this | | | e | | | procedure are in the | | | | | | results section. | + +--------+ + + + | EXTERNAL LAB: | Routin | 12/30/2018 | | Results for this | | CREATININE | e | | | procedure are in the | | | | | | results section. | + +--------+ + + + | CBC WITH | Routin | 12/30/2018 | | Results for this | | DIFFERENTIAL | e | | | procedure are in the | | | | | | results section. | + +--------+ + + + | COMPREHENSIVE | Routin | 12/30/2018 | | Results for this | | METABOLIC PANEL | e | | | procedure are in the | | | | | | results section. | + +--------+ + + + documented in this encounter Results External Lab: Glucose (12/30/2018) + +---------+ + + + | Component | Value | Ref Range | Performed | Pathologist | | | | | At | Signature | + +---------+ + + + | Glucose, | 106 (A) | 70 - 100 | EXTERNAL | | | External | | | LAB | | + +---------+ + + + + +---------+ + + | Performing | Address | City/State/Zipcode | Phone Number | | Organization | | | | + +---------+ + + | EXTERNAL LAB | | | | + +---------+ + + CBC with Differential (12/30/2018) + +-------+ + + + | Component | Value | Ref Range | Performed | Pathologist | | | | | At | Signature | + +-------+ + + + | MCH | 31.0 | 27.0 - 33.0 pg | | | + +-------+ + + + | MCHC | 34.0 | 30.0 - 36.0 | | | | | | g/dL | | | + +-------+ + + + | % Basophils | 0.5 | 0.0 - 2.0 % | | | + +-------+ + + + + + | Specimen | + + | Blood | + + Comprehensive Metabolic Panel (12/30/2018) + +-------+ + + + | Component | Value | Ref Range | Performed | Pathologist | | | | | At | Signature | + +-------+ + + + | Anion Gap | 15 | 7 - 21 mmol/L | | | + +-------+ + + + | Bun/Creatin | 17.0 | 6.0 - 28.6 | | | | ine | | Ratio | | | + +-------+ + + + | Globulin | 2.7 | 1.8 - 3.5 g/dl | | | + +-------+ + + + | Albumin/Rocío | 1.6 | 1.1 - 2.4 Ratio | | | | bulin Ratio | | | | | + +-------+ + + + + + | Specimen | + + | Blood | + + External Lab: BUN (12/30/2018) + +-------+ + + + | Component | Value | Ref Range | Performed | Pathologist | | | | | At | Signature | + +-------+ + + + | BUN, | 17 | 6 - 23 | EXTERNAL | | | External | | | LAB | | + +-------+ + + + + +---------+ + + | Performing | Address | City/State/Zipcode | Phone Number | | Organization | | | | + +---------+ + + | EXTERNAL LAB | | | | + +---------+ + + External Lab: ALT (12/30/2018) + +-------+ + + + | Component | Value | Ref Range | Performed | Pathologist | | | | | At | Signature | + +-------+ + + + | ALT, | 16 | 7 - 52 | EXTERNAL | | | External | | | LAB | | + +-------+ + + + + +---------+ + + | Performing | Address | City/State/Zipcode | Phone Number | | Organization | | | | + +---------+ + + | EXTERNAL LAB | | | | + +---------+ + + External Lab: AST (12/30/2018) + +-------+ + + + | Component | Value | Ref Range | Performed | Pathologist | | | | | At | Signature | + +-------+ + + + | AST, | 18 | 13 - 39 | EXTERNAL | | | External | | | LAB | | + +-------+ + + + + +---------+ + + | Performing | Address | City/State/Zipcode | Phone Number | | Organization | | | | + +---------+ + + | EXTERNAL LAB | | | | + +---------+ + + External Lab: Alkaline Phosphatase (12/30/2018) + +-------+ + + + | Component | Value | Ref Range | Performed | Pathologist | | | | | At | Signature | + +-------+ + + + | ALP, | 101 | 31 - 130 | EXTERNAL | | | External | | | LAB | | + +-------+ + + + + +---------+ + + | Performing | Address | City/State/Zipcode | Phone Number | | Organization | | | | + +---------+ + + | EXTERNAL LAB | | | | + +---------+ + + External Lab: Bilirubin, Total (12/30/2018) + +-------+ + + + | Component | Value | Ref Range | Performed | Pathologist | | | | | At | Signature | + +-------+ + + + | Bilirubin, | 0.5 | 0 - 1.2 | EXTERNAL | | | Total, | | | LAB | | | External | | | | | + +-------+ + + + + +---------+ + + | Performing | Address | City/State/Zipcode | Phone Number | | Organization | | | | + +---------+ + + | EXTERNAL LAB | | | | + +---------+ + + External Lab: Albumin (12/30/2018) + +-------+ + + + | Component | Value | Ref Range | Performed | Pathologist | | | | | At | Signature | + +-------+ + + + | Albumin, | 4.2 | 3.5 - 5 | EXTERNAL | | | External | | | LAB | | + +-------+ + + + + +---------+ + + | Performing | Address | City/State/Zipcode | Phone Number | | Organization | | | | + +---------+ + + | EXTERNAL LAB | | | | + +---------+ + + External Lab: Protein, Total (12/30/2018) + +-------+ + + + | Component | Value | Ref Range | Performed | Pathologist | | | | | At | Signature | + +-------+ + + + | Protein, | 6.9 | 6 - 8.3 | EXTERNAL | | | Total, | | | LAB | | | External | | | | | + +-------+ + + + + +---------+ + + | Performing | Address | City/State/Zipcode | Phone Number | | Organization | | | | + +---------+ + + | EXTERNAL LAB | | | | + +---------+ + + External Lab: Calcium (12/30/2018) + +-------+ + + + | Component | Value | Ref Range | Performed | Pathologist | | | | | At | Signature | + +-------+ + + + | Calcium, | 9.9 | 8.5 - 10.3 | EXTERNAL | | | External | | | LAB | | + +-------+ + + + + +---------+ + + | Performing | Address | City/State/Zipcode | Phone Number | | Organization | | | | + +---------+ + + | EXTERNAL LAB | | | | + +---------+ + + External Lab: Carbon Dioxide (12/30/2018) + +-------+ + + + | Component | Value | Ref Range | Performed | Pathologist | | | | | At | Signature | + +-------+ + + + | Carbon | 26 | 19 - 31 | EXTERNAL | | | Dioxide, | | | LAB | | | External | | | | | + +-------+ + + + + +---------+ + + | Performing | Address | City/State/Zipcode | Phone Number | | Organization | | | | + +---------+ + + | EXTERNAL LAB | | | | + +---------+ + + External Lab: Chloride (12/30/2018) + +-------+ + + + | Component | Value | Ref Range | Performed | Pathologist | | | | | At | Signature | + +-------+ + + + | Chloride, | 104 | 95 - 112 | EXTERNAL | | | External | | | LAB | | + +-------+ + + + + +---------+ + + | Performing | Address | City/State/Zipcode | Phone Number | | Organization | | | | + +---------+ + + | EXTERNAL LAB | | | | + +---------+ + + External Lab: Potassium (12/30/2018) + +-------+ + + + | Component | Value | Ref Range | Performed | Pathologist | | | | | At | Signature | + +-------+ + + + | Potassium, | 4.3 | 3.6 - 5.1 | EXTERNAL | | | External | | | LAB | | + +-------+ + + + + +---------+ + + | Performing | Address | City/State/Zipcode | Phone Number | | Organization | | | | + +---------+ + + | EXTERNAL LAB | | | | + +---------+ + + External Lab: Sodium (12/30/2018) + +-------+ + + + | Component | Value | Ref Range | Performed | Pathologist | | | | | At | Signature | + +-------+ + + + | Sodium, | 141 | 132 - 143 | EXTERNAL | | | External | | | LAB | | + +-------+ + + + + +---------+ + + | Performing | Address | City/State/Zipcode | Phone Number | | Organization | | | | + +---------+ + + | EXTERNAL LAB | | | | + +---------+ + + External Lab: CBC (12/30/2018) + +-------+ + + + | Component | Value | Ref Range | Performed | Pathologist | | | | | At | Signature | + +-------+ + + + | WBC, | 6.5 | 4.5 - 11 | EXTERNAL | | | External | | | LAB | | + +-------+ + + + | HGB, | 12.9 | 12 - 16 | EXTERNAL | | | External | | | LAB | | + +-------+ + + + | HCT, | 37.8 | 35 - 45 | EXTERNAL | | | External | | | LAB | | + +-------+ + + + | PLT, | 230 | 140 - 440 | EXTERNAL | | | External | | | LAB | | + +-------+ + + + | Neutrophils | 47.8 | 39 - 80 | EXTERNAL | | | %, | | | LAB | | | External | | | | | + +-------+ + + + | Lymphocytes | 39.8 | 24 - 44 | EXTERNAL | | | %, | | | LAB | | | External | | | | | + +-------+ + + + | Monocytes | 9.1 | 0 - 12 | EXTERNAL | | | %, External | | | LAB | | + +-------+ + + + | Eosinophils | 2.8 | 0 - 6 | EXTERNAL | | | %, | | | LAB | | | External | | | | | + +-------+ + + + | RBC, | 4.21 | 3.8 - 5.1 | EXTERNAL | | | External | | | LAB | | + +-------+ + + + | MCV, | 90 | 81 - 99 | EXTERNAL | | | External | | | LAB | | + +-------+ + + + | RDW, | 14.8 | 10.5 - 15 | EXTERNAL | | | External | | | LAB | | + +-------+ + + + + +---------+ + + | Performing | Address | City/State/Zipcode | Phone Number | | Organization | | | | + +---------+ + + | EXTERNAL LAB | | | | + +---------+ + + External Lab: eGFR (12/30/2018) + +--------+ + + + | Component | Value | Ref Range | Performed | Pathologist | | | | | At | Signature | + +--------+ + + + | eGFR, | 53 (A) | 60 - 99,999 | EXTERNAL | | | External | | | LAB | | + +--------+ + + + + + | Specimen | + + | Blood | + + + +---------+ + + | Performing | Address | City/State/Zipcode | Phone Number | | Organization | | | | + +---------+ + + | EXTERNAL LAB | | | | + +---------+ + + External Lab: Creatinine (12/30/2018) + +-------+ + + + | Component | Value | Ref Range | Performed | Pathologist | | | | | At | Signature | + +-------+ + + + | Creatinine, | 1.00 | 0.7 - 1.11 | EXTERNAL | | | External | | | LAB | | + +-------+ + + + + + | Specimen | + + | Blood | + + + +---------+ + + | Performing | Address | City/State/Zipcode | Phone Number | | Organization | | | | + +---------+ + + | EXTERNAL LAB | | | | + +---------+ + + documented in this encounter Visit Diagnoses Not on filedocumented in this encounter"
--- OUTSIDE RECORDS SUMMARY | ~2019-10-14 | XMS | Encounter Summary ---
Demographics + + + | Address | [address] | | | [place] [address] | + + + | Home Phone | | + + + | Preferred Language | Unknown | + + + | Marital Status | | + + + | Taoist Affiliation | Unknown | + + + | Race | Unknown | + + + | Ethnic Group | Unknown | + + + Author + + + | Author | [facility] | | | and [place] | + + + | Organization | [facility] | | | and [place] [...] + | Matthew Ramirez | CHRIS | [address] | | | | | [place] | | | | | [address] | | + + + + + Care Team Providers + +------+ + | Care Wildlife Biology Technician Name | Role | Phone | + +------+ + PCP | Unavailable | + +------+ + Encounter Details +--------+ + + + + | Date | Type | Department | Care Team | Description | +--------+ + + + + | 07/24/ | Hospital | [facility] | | | | 1999 | Encounter | MED CTR XRAY [address] | | | | | | [address] | | | | | | [place] [address] | | | | | | [phone] | | | +--------+ + + + [...]
--- OUTSIDE RECORDS SUMMARY | ~2019-10-14 | XMS | Encounter Summary ---
Demographics + + + | Address | [address] | | | [place] [address] | + + + | Home Phone | | + + + | Preferred Language | Unknown | + + + | Marital Status | | + + + | Amish Affiliation | NRP | + + + | Race | White | + + + | Ethnic Group | Not or | + + + Author + + + | Author | [facility] | + + + | Organization | [facility] | + + + | Address | Unknown | + + + | Phone | Unavailable | + + + Support + + + + + | Name | Relationship | Address | Phone | + + + + + | Matthew Ramirez | CHRIS | [address] | | | | | [place] | | | | | [address] | | + + + + + | Nella Haque | ECON | Unknown | | + + + + + Care Team Providers + +------+ + | Care Oracle Manager Name | Role | Phone | + +------+ + | Long Copeland MD | PCP | | + +------+ + Reason for Visit +---------+ + | Reason | Comments | +---------+ + | Post Op | | +---------+ + Encounter Details +--------+ + + + + | Date | Type | Department | Care Team | Description | +--------+ + + + + | 10/30/ | [facility]phone | [facility] Avis Rios | Post Op | | 2010 | | [facility] | MD Gillian [address] | | | | | [address] [address] | [facility] | | | | | [address] | [place], [place] | | | | | [place], [facility] floor | [address] | | | | | [place], [place] | [phone] | | | | | [address] | | | | | | [phone] | | | +--------+ + + + [...]
--- OUTSIDE RECORDS SUMMARY | ~2019-10-14 | XMS | Encounter Summary ---
Demographics + + + | Address | [address] | | | [place] [address] | + + + | Home Phone | | + + + | Preferred Language | Unknown | + + + | Marital Status | | + + + | Buddhist Affiliation | NRP | + + + | Race | White | + + + | Ethnic Group | Not or | + + + Author + + + | Author | [facility] | + + + | Organization | [facility] | + + + | Address | Unknown | + + + | Phone | Unavailable | + + + Support + + + + + | Name | Relationship | Address | Phone | + + + + + | Matthew Ramirez | CHRIS | [address] | | | | | [place] | | | | | [address] | | + + + + + | Nella Haque | ECON | Unknown | | + + + + + Care Team Providers + +------+ + | Care Block Out Machine Operator Name | Role | Phone | + +------+ + | Long Copeland MD | PCP | | + +------+ + Reason for Visit + + + | Reason | Comments | + + + | Care Coordination | call back requested | + + + Encounter Details +--------+ + + + + | Date | Type | Department | Care Team | Description | +--------+ + + + + | 06/22/ | Telephone | [facility] | Rodriguez Bower MD | Care Coordination | | 2020 | | [facility] at S | [address] | (call back requested | | | | [facility] | [place], [place] | ) | | | | for Health and | [address] | | | | | Healing [address] | [phone] | | | | | [address] [place], [place] | | | | | | [address] | | | | | | [phone] | | | +--------+ + + + [...]
--- OUTSIDE RECORDS SUMMARY | ~2019-10-14 | XMS | Encounter Summary ---
Demographics + + + | Address | [address] | | | [place] [address] | + + + | Home Phone | | + + + | Preferred Language | Unknown | + + + | Marital Status | | + + + | Jewish Affiliation | NRP | + + + [...] + | Matthew Ramirez | CHRIS | [address] | | | | | [place] | | | | | [address] | | + + + + + | Nella Haque | ECON | Unknown | | + + + + + Care Team Providers + +------+ + | Care Asl Interpreter Name | Role | Phone | + [...] | | | | ma (HCC) | [place], | | | | | | Procedures | [place] | | | | | | [place] ABDOMEN | [address] | | | | | | AND PELVIS W | Phone: | | | | | | IV CONTRAST | [phone] | | | | | | | Fax: | | | | | | | [phone] | | + +--------+ + + + [...] | | | | ma (HCC) | [place], | | | | | | Procedures | [place] | | | | | | [place] ABDOMEN | [address] | | | | | | AND PELVIS W | Phone: | | | | | | IV CONTRAST | [phone] | | | | | | | Fax: | | | | | | | [phone] | | + +--------+ + + + [...] | | | [address] Mailcode: | [place], [place] | | | | | [address] | [address] | | | | | Health and Healing, | [phone] | | | | | [address] | | | | | | Floor [facility] [place] | | | | | | [address] | | | | | | [phone] | | | +--------+ + + + [...] nostril | | | | | | Canon | once daily. | | | | [...] (H) | 0.6 - 1.1 mg/dL | VTYULI Bermudez [facility], | | | POC | | [...] + + | DANISHA FARIAS | [address] | [place] [address] | | | OF CARE TESTS | [...]
--- OUTSIDE RECORDS SUMMARY | ~2019-10-14 | XMS | Encounter Summary ---
Demographics + + + | Address | [address] | | | [place] [address] | + + + | Home Phone | | + + + | Preferred Language | Unknown | + + + | Marital Status | | + + + | Spiritism Affiliation | NRP | + + + | Race | White | + + + | Ethnic Group | Not or | + + + Author + + + | Author | [facility] | + + + | Organization | [facility] | + + + | Address | Unknown | + + + | Phone | Unavailable | + + + Support + + + + + | Name | Relationship | Address | Phone | + + + + + | Matthew Ramirez | CHRIS | [address] | | | | | [place] | | | | | [address] | | + + + + + | Nella Haque | ECON | Unknown | | + + + + + Care Team Providers + +------+ + | Care Stock And Station Agent Name | Role | Phone | + +------+ + | Long Copeland MD | PCP | | + +------+ + Encounter Details +--------+ + + + + | Date | Type | Department | Care Team | Description | +--------+ + + + + | 10/10/ | Outside | UNKNOWN DEPARTMENT | Other, Faculty | | | 2019 | Records | [address] [facility] | [phone] | | | | | [address] | | | | | | [place], [place] | | | | | | [address] | | | +--------+ + + + [...]
--- OUTSIDE RECORDS SUMMARY | ~2019-10-14 | XMS | Clinical Summary ---
Demographics + + + | Address | [address] | | | [place] [address] | + + + | Home Phone | | + + + | Preferred Language | Unknown | + + + | Marital Status | | + + + | Moravian Affiliation | Unknown | + + + | Race | Unknown | + + + | Ethnic Group | Unknown | + + + Author + + + | Author | [facility] | | | and Nenoana | + + + | Organization | [facility] | | | and Nenoana | [...] + | Matthew Ramirez | ECON | [address] | | | | | [place] | | | | | [address] | | + + + + + Care Team Providers + +------+ + | Care Caser Name | Role | Phone | + [...] 1000 | mouth Daily. | | | 3/20 | | e | | UNITS TABS [...] | | | e | | ol (RHONDA ROSE | morning. [...] 2003.2. Screening | | colonoscopy in 2009 ([facility]) notable for polyps.3. Chronic | | abdominal pain, evaluated by Dr. Julien Francisco in 2015. Colonoscopy | | on October 30, 2015 ([facility]) was notable for 3 tubular adenomas and | | one hyperplastic polyp.4. Repeat colonoscopy January 26, 2018 | | ([facility]) notable for a tubular adenoma.5. Admit [facility], October 18, 2017 | | for partial small bowel obstruction. CT scan of abdomen/pelvis | | with contrast demonstrated small bowel obstruction. Symptoms | | resolved with conservative management.6. Presentation on July | | 2018 with abdominal pain, nausea and one episode of vomiting. | | CT abdomen/pelvis with contrast August 05, 2018 at [facility] | | [facility] in [facility] demonstrated no acute inflammatory | | changes in the abdomen or pelvis.7. EGD/ Colonoscopy with random | | biopsies by Dr. Shukla, [facility] on December 17, 2018; Specimen # | | [id number] ([place]). "A-Mucosa, stomach, | | biopsy-infiltrating gastric adenocarcinoma." Specimens | | B-duodenum, C-antrum, D-gastroesophageal junction, E-ascending | | colon, F-transverse colon, G-descending colon, and H, sigmoid | | colon were all negative for invasive malignancy.8. CT | | chest/abdomen/pelvis on December 31, 2018; No concerning gastric | | mass, no findings to suggest metastatic disease.9. Admit to [facility] | | on May 06, 2019 for small bowel obstruction, with laparotomy | | and extensive lysis of adhesions May 07, 2019 ([place]). | | Last Assessment & Plan: Ashly Ramirez is referred by | | Matthew Shukla Md [address] | | [address] for evaluation and management of gastric adenocarcinoma.I | | met with Ashly and her daughter Nella, on 01/05/2019 at the | | [facility]. The patient's history | | includes chronic [...] pathological findings with Dr. Guevara Ernandez at [facility], who | | affirmed that the biopsy could be consistent with Linitis | | Plastica. Dr. Shukla agreed that the lack of endoscopic or | | radiographic findings is atypical and agreed that endoscopic | | ultrasound is indicated for further evaluation. Dr. Shukla' office | | will co-ordinate endoscopic ultrasound with [facility] | | [facility] in [place]. I will follow up with Ashly Ramirez after | | her next procedure to review the results and to establish a plan | | of management. | + + + + + | Rectal bleeding | 12/16/2018 | + + + + + | Overview: Added automatically from request for surgery | | [id number] | + + + + + | Diarrhea, unspecified type | 12/16/2018 | + + + + + | Overview: Added automatically from request for surgery | | [id number] | + + + + + | Chronic abdominal pain | 12/16/2018 | + + + + + | Overview: Added automatically from request for surgery | | [id number] | + + + + + | Benzodiazepine dependence | 12/16/2018 | + + + + + | Overview: Added automatically from request for surgery | | [id number] | + + + + + | Narcotic dependence, episodic use | 12/16/2018 | + + + + + | Overview: Added automatically from request for surgery | | [id number] | + + + + + | LUQ pain | 12/16/2018 | + + + + + | Overview: Added automatically from request for surgery | | [id number] | + + + + + | Alternating constipation and diarrhea | 12/16/2018 | + + + + + | Overview: Added automatically from request for surgery | | [id number] | + + + + + | Hematochezia | 12/16/2018 | + + + + + | Overview: Added automatically from request for surgery | | [id number] | + + + + + | Weight loss, unintentional | 12/16/2018 | + + + + + | Overview: Added automatically from request for surgery | | [id number] | + + + + + | [...] | Vertigo | | + + + Encounters +--------+ + + + + | Date | Type | Specialty | Care Team | Description | +--------+ + + + + | 10/12/ | Telephone | Oncology | [facility], | Family Concerns/ | | 2019 | | | Luis Richards MD | Communication | +--------+ + + + + | 07/21/ | Hospital | Radiology | [facility], | Breast cancer | | 2019 | Encounter | | Luis Richards MD | metastasized to | | | | | | multiple sites, left | | | | | | (HCC) | +--------+ + + + + from Last 3 Months Immunizations + + + + | Name [...] | + + + + | INFLUENZA, [id number], | 04/29/2009 | | | UNSPECIFIED | [...] recent travel history available. | + + Last Filed Vital Signs + [...] Health Maintenance | Due Date | Last Done | Comments | + + + + + | Vaccine: | | | | | Pneumococcal 65+ (1 | 4 | | | | of 2 - PCV13) | | | | + + + + + | Adult Annual | | | | | Wellness Visit | 5 | | | + + + + + | Vaccine: | | 07/28/2014 | | | Dtap/Tdap/Td (2 - | 5 | | | | Td) | | | | + + + + + | Vaccine: Influenza | Completed | 01/30/2019, 01/13/2018, | | | | | 01/29/2017, Additional history | | | | | exists | | + + + + + | Vaccine: Zoster | Completed | 04/06/2019, 01/07/2019 | | + + + + + [...] | Left: | CONMED | | | [phone] | | on 07/04/2017 by Prakash, | | Toe | JOHN- [id number] | | | [phone] | | Jose Sanon DPM at [facility] | | | | | | /[id number] | | [facility] | | | | | | [phone] | | | | | | | | [phone] | | | | | | | | [phone] | | | | | | | | [phone] | | | | | | | | 650044 | | | | | | | | | | | | | | | | /43417 | | | | | | | | 6 | + +------+--------+ +--------+--------+--------+ | .045 C-WireImplanted: Qty: 1 | | Left: | CONMED | | | [id number] | | on 07/04/2017 by Prakash, | | Toe | CONMED | | | [phone] | | [facility] | | | JOHN. | | | /[id number] | | [facility] | | | | | | [id number] | | | | | | | | [phone] | | | | | | | | [id number] | | | | | | | | [phone] | | | | | | | | [phone] | | | | | | | | | | | | | | | | /60014 | | | | | | | | 7 | + +------+--------+ +--------+--------+--------+ | .045 C-WireImplanted: Qty: 1 | | Left: | CONMED | | | [id number] | | on 07/04/2017 by Prakash, | | Toe | CONMED | | | [phone] | | Joes Sanon DPM at [facility] | | | JOHN. | | | /[id number] | | [facility] | | | | | | [phone] | | | | | | | | [phone] | | | | | | | | [phone] | | | | | | | | [phone] | | | | | | | | [phone] | | | | | | | | | | | | | | | | /10041 | | | | | | | | 6 | + +------+--------+ +--------+--------+--------+ | Pip DartImplanted: Qty: 1 on | | Right: | ARTHREX | | 06/11/ | [id number] | | 02/13/2018 by Jose Randall | | Toe | ARTHREX | | 2021 | 5PS-30 | | JACKIE Sanon at [facility] | | | INC[employer] | | | 10 | | [facility] | | | | | | /+$$80 | | | | | | | | [id number] | | | | | | | | [phone] | | | | | | | | 77U | | | | | | | | /26735 | | | | | | | | 817 | + +------+--------+ +--------+--------+--------+ | Pip Trevor Implanted: Qty: 1 on | | Right: | ARTHREX | | 11/08/ | AR-[id number] | | 02/13/2018 by Prakash, | | Toe | ARTHREX | | 2022 | 4PS-30 | | Jose Sanon DPM at [facility] | | | INC[employer] | | | 10 | | [facility] | | | | | | /+$$80 | | | | | | | | [id number] | | | | | | | | [phone] | | | | | | | | 47$ | | | | | | | | /[id number] | | | | | | | [...] Toe | ARTHREX | | 2020 | /[id number] | | Qty: 1 on 02/13/2018 at [facility] | | | INC[employer] | | | [phone] | | [facility] | | | | | | [phone] | | | | | | | | [phone] | | | | | | | | [phone] | | | | | | | | [id number] | | | | | | | | 761 | | | | | | | | /57623 | | | | | | | | 761 | + +------+--------+ +--------+--------+--------+ + + | Description:3rd toe | + + Procedures + +--------+ + + + | Procedure Name | Priori | Date/Time | Associated Diagnosis | Comments | | | ty | | | | + +--------+ + + + | PET CT SKULL BASE TO | Routin | 07/22/2019 | Breast cancer | Results for this | | MID THIGH | e | 11:13 AM | metastasized to | procedure are in the | | | | PDT | multiple sites, left | results section. | | | | | (HCC) | | + +--------+ + + + from Last [address] Skull Base To Mid Thigh (07/22/2019 11:13 AM PDT) + + | Specimen | + + | | + + + + + | Impressions | Performed At | + + + | Stable morphology and low-level metabolic activity in the right | [facility] | | retropectoral and low axillary lymph nodes. No additional | | | abnormal activity to suggest active malignancy. Dictated and | | | Signed by: Raul Goldberg MD Electronically signed: 07/23/2019 | | | 4:22 PM | | + + + + + -----+ | Narrative | Performed At | + + -----+ | Exam: PET CT | [facility] | | SKULL BASE TO MID THIGH dated 07/22/2019 9:06 AM History: Progress | | | study, metastatic breast cancer. Comparison: PET CT 02/18/2019 | | | Technique: PET/CT imaging was performed from the skull base through | | | the proximalthighs following the uneventful intravenous administration | | | of 10.37 millicuriesof F-18 FDG. The glucose at the time of | | | injection is 112 mg/dL. Injection timeis 9:26 AM and scan start time | | | is 10:26 AM. Attenuation corrected,nonattenuation corrected, and | | | PET/CT fused data are reviewed on a multiplemodality workstation. A | | | low-dose CT is utilized for attenuation correction andlocalization. | | | This should not substitute for a diagnostic CT when | | | clinicallywarranted. Dose: CTDI = 8.07 mGy; DLP = 713.97 mGy per | | | centimeter Findings: PET/CT: Mediastinal background max SUV = 2.68 | | | (image 79) Liver background max SUV = 3.27 (image 120) Lymph node in | | | the right retropectoral region. This again has a maximum SUV ofless | | | than 2 and measures about 7 mm in short axis. No significant | | | intervalchanges. Low level activity persists in a prominent lymph node | | | in the right axilla. Thishas a maximum SUV of less than 2 and | | | measures about 1 cm in short axis. Nosignificant interval changes. | | | No asymmetric activity in the base of the tongue on today's study. | | | Focal activity in the left abdomen associated with the | | | gastrointestinal tract. This was not present on the prior study. | | | This is likely physiologic orinflammatory. Symmetric activity in the | | | region of the hypopharynx and larynx. This isprobably related to | | | phonation during the exam. The remainder of the metabolic activity is | | | physiologic as seen within the baseof the brain, oropharyngeal soft | | | tissues, heart, mediastinum, liver, spleen,kidneys and collecting | | | system. Additional activity is also seen nonfocallythroughout the | | | musculoskeletal system and gastrointestinal tract. INCIDENTALS: | | | Postsurgical changes in the probable: Midline. Postsurgicalchanges | | | in the anterior abdominal wall. Anastomosis in the sigmoid | | | withoutevidence for proximal obstruction. Splenomegaly. | | | | | |No asymmetric activity in the base of the tongue on today's study. | | | | | |Focal activity in the left abdomen associated with the gastrointestinal tract. | | |This was not present on the prior study. This is likely physiologic or | | |inflammatory. | | | | | |Symmetric activity in the region of the hypopharynx and larynx. This is | | |probably related to phonation during the exam. | | | | | |The remainder of the metabolic activity is physiologic as seen within the base | | |of the brain, oropharyngeal soft tissues, heart, mediastinum, liver, spleen, | | |kidneys and collecting system. Additional activity is also seen nonfocally | | |throughout the musculoskeletal system and gastrointestinal tract. | | | | | |INCIDENTALS: Postsurgical changes in the probable: Midline. Postsurgical | | |changes in the anterior abdominal wall. Anastomosis in the sigmoid without | | |evidence for proximal obstruction. Splenomegaly. | | | | | + + -----+ + + | Procedure Note | + + | [place], Rad Results In - 07/23/2019 4:25 PM PDT Exam: PET CT SKULL BASE TO MID THIGH | | dated 07/22/2019 9:06 AMHistory: Progress study, metastatic breast cancer.Comparison: PET | | CT 02/18/2019Technique: PET/CT imaging was performed from the skull base through the | | proximalthighs following the uneventful intravenous administration of 10.37 | | millicuriesof F-18 FDG. The glucose at the time of injection is 112 mg/dL. Injection | | timeis 9:26 AM and scan start time is 10:26 AM. Attenuation corrected,nonattenuation | | corrected, and PET/CT fused data are reviewed on a multiplemodality workstation. A | | low-dose CT is utilized for attenuation correction andlocalization. This should not | | substitute for a diagnostic CT when clinicallywarranted.Dose: CTDI = 8.07 mGy; DLP = | | 713.97 mGy per centimeterFindings:PET/CT:Mediastinal background max SUV = 2.68 (image | | 79)Liver background max SUV = 3.27 (image 120)Lymph node in the right retropectoral | | region. This again has a maximum SUV ofless than 2 and measures about 7 mm in short | | axis. No significant intervalchanges.Low level activity persists in a prominent lymph | | node in the right axilla. Thishas a maximum SUV of less than 2 and measures about 1 cm | | in short axis. Nosignificant interval changes.No asymmetric activity in the base of the | | tongue on today's study.Focal activity in the left abdomen associated with the | | gastrointestinal tract. This was not present on the prior study. This is likely | | physiologic orinflammatory.Symmetric activity in the region of the hypopharynx and | | larynx. This isprobably related to phonation during the exam.The remainder of the | | metabolic activity is physiologic as seen within the baseof the brain, oropharyngeal | | soft tissues, heart, mediastinum, liver, spleen,kidneys and collecting system. | | Additional activity is also seen nonfocallythroughout the musculoskeletal system and | | gastrointestinal tract.INCIDENTALS: Postsurgical changes in the probable: Midline. | | Postsurgicalchanges in the anterior abdominal wall. Anastomosis in the sigmoid | | withoutevidence for proximal obstruction. Splenomegaly.IMPRESSION: Stable morphology | | and low-level metabolic activity in the right retropectoraland low axillary lymph | | nodes.No additional abnormal activity to suggest active malignancy.Dictated and Signed | | by: Raul Goldberg MD Electronically signed: 07/23/2019 4:22 PM | | | |Low level activity persists in a prominent lymph node in the right axilla. This | |has a maximum SUV of less than 2 and measures about 1 cm in short axis. No | |significant interval changes. | | | |No asymmetric activity in the base of the tongue on today's study. | | | |Focal activity in the left abdomen associated with the gastrointestinal tract. | |This was not present on the prior study. This is likely physiologic or | |inflammatory. | | | |Symmetric activity in the region of the hypopharynx and larynx. This is | |probably related to phonation during the exam. | | | |The remainder of the metabolic activity is physiologic as seen within the base | |of the brain, oropharyngeal soft tissues, heart, mediastinum, liver, spleen, | |kidneys and collecting system. Additional activity is also seen nonfocally | |throughout the musculoskeletal system and gastrointestinal tract. | | | |INCIDENTALS: Postsurgical changes in the probable: Midline. Postsurgical | |changes in the anterior abdominal wall. Anastomosis in the sigmoid without | |evidence for proximal obstruction. Splenomegaly. | | | |IMPRESSION: | | | |Stable morphology and low-level metabolic activity in the right retropectoral | |and low axillary lymph nodes. | | | |No additional abnormal activity to suggest active malignancy. | | | |Dictated and Signed by: Raul Goldberg MD | | Electronically signed: 07/23/2019 4:22 PM | + + + +---------+ + + | Performing | Address | City/State/Zipcode | Phone Number | | Organization | | | | + +---------+ + + | [facility] | | | | + +---------+ + + from Last 3 Months Insurance + +--------+ +--------+ [...] + +--------+ | MEDICARE | MEDICA | [id number] | 10/11/19 | [phone] | | Medica | | | RE | | 04-Pre | 5 | | re | | | PART A | | sent | | | | | | AND B | | | | | | + +--------+ +--------+ + +--------+ | MODA | MODA | [id number] | 05/12/19 | [phone] | [address] | Indemn | | | HEALTH | | 17-Pre | 9 | [phone] | ity | | | MDCR | | sent | | [place], | | | | [place] | | | | [place] [address] | | + +--------+ +--------+ + +--------+ | MEDICARE | MEDICA | [id number] | 10/11/19 | [phone] | | Medica | | | RE | | 04-Pre | 5 | | re | | | PART A | | sent | | | | | | AND B | | | | | | + +--------+ +--------+ + +--------+ | MODA | MODA | [id number] | 05/12/19 | [phone] | [address] | Indemn | | | HEALTH | | 19-Pre | 9 | [phone] | ity | | | MDCR | | sent | | [place], | | | | [place] | | | | [place] [address] | | + +--------+ +--------+ + +--------+ + +--------+ +--------+ + + | Guarantor Name | Accoun | Relation to | Date | Phone | Billing Address | | | t Type | Patient | of | | | | | | | | | | + +--------+ +--------+ + + | Ashly Ramirez | Person | Self | [birth year] | [address] | | | al/Fam | | 1941 | [phone] | [place], [place] | | | amrik | | | 9 (Home) | [address] | + +--------+ +--------+ + + | Ashly Ramirez | Person | Self | [birth year] | | [address] | | | al/Fam | | 1941 | [phone] | [place], [place] | | | amrik | | | 9 (Home) | [address] | + +--------+ +--------+ + + Advance Directives + + + + + | Type | Date Recorded | Patient | Explanation | | | | 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
--- OUTSIDE RECORDS SUMMARY | ~2019-10-14 | XMS | Encounter Summary ---
Demographics + + + | Address | [address] | | | [place] [address] | + + + | Home Phone | | + + + | Preferred Language | Unknown | + + + | Marital Status | | + + + | Pentecostalism Affiliation | Unknown | + + + | Race | Unknown | + + + | Ethnic Group | Unknown | + + + Author + + + | Author | [facility] | | | and [place]eno[place] | + + + | Organization | [facility] | | | and [place] [...] + | Matthew Ramirez | ECON | [address] | | | | | [place] | | | | | [address] | | + + + + + Care Team Providers + +------+ + | Care Cattle Dehorner Name | Role | Phone | + +------+ + | Ashly Rojo PA-C | PCP | | + +------+ + Reason for Visit + + + | Reason | Comments | + + + | Abdominal Pain | | + + + Evaluate & Treat (Routine) +--------+--------+ + + + + | Status | Reason | Specialty | Diagnoses / | Referred By | Referred To | | | | | Procedures | Contact | Contact | +--------+--------+ + + + + | Closed | | Gastroenterol | Diagnoses | Alia, | Gayla, | | | | ogdipak | Left lower | RAMESH Limon | MD Matthew | | | | | quadrant | [address] | [address] | | | | | pain | [place] | [place], | | | | | Procedures | [address] | [place] [address] | | | | | office visit | [place] | Phone: | | | | | | [place] [address] | [phone] | | | | | | Phone: | Fax: | | | | | | [phone] | [phone] | | | | | | Fax: | | | | | | | [phone] | | +--------+--------+ + + + + Encounter Details +--------+---------+ + + + | Date | Type | Department | Care Team | Description | +--------+---------+ + + + | 12/14/ | Office | [facility] | Matthew Shukla MD | Chronic abdominal | | 2019 | Visit | GASTROENTEROLOGY | [address] | pain (Primary Dx); | | | | [address] [facility] | [place], [place] | Diarrhea, | | | | [address] [place], [place] | [address] | unspecified type; | | | | [address] | [phone] | Rectal bleeding; | | | | [phone] | | Benzodiazepine | | | | | | dependence (HCC); | | | | | | Narcotic dependence, | | | | | | episodic use (HCC); | | | | | | LUQ pain; | | | | | | Alternating | | | | | | constipation and | | | | | | diarrhea; | | | | | | Hematochezia; Weight | | | | | | loss, unintentional | +--------+---------+ + + + Social History [...] + + + | Blood Pressure | 162/70 | 12/14/2018 1:54 PM | | | | | PDT | | + + + + + | Pulse | 87 | 12/14/2018 1:54 PM | | | | | PDT | | + + + + + | Temperature | 37.1 C (98.8 F) | 12/14/2018 1:54 PM | | | | | PDT | | + + + + + | Respiratory Rate | 16 | 12/14/2018 1:54 PM | | | | | PDT | | + + + + + | Oxygen Saturation | 94% | 12/14/2018 1:54 PM | | | | | PDT | | + + + + + | Inhaled Oxygen | - | - | | | Concentration | | | | + + + + + | Weight | 88.8 kg (195 lb 12.3 | 12/14/2018 1:54 PM | | | | oz) | PDT | | + + + + + | Height | - | - | | + + + + + | Body Mass Index | 28.91 | 11/24/2009 12:00 AM | | | | | PDT | | + + + + + documented in this encounter Progress Notes Nathaly Hatch RN - 12/14/2018 2:30 PM PDTScheduled for egd/colon prop on 12/[address] 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 Encouraged patient to seek support group for stress due to having spouse with dementia/ariella castaneda, she agreed. do cumented in this encounter Plan of Treatment Not on filedocumented as of this encounter Visit Diagnoses + + | Diagnosis | + + | Chronic abdominal pain - Primary Abdominal pain, unspecified site | + + | Diarrhea, unspecified type | + + | Rectal bleeding Hemorrhage of rectum and anus | + + | Benzodiazepine dependence (HCC) [...] weight | + + documented in this encounter"
--- OUTSIDE RECORDS SUMMARY | ~2019-10-14 | XMS | Encounter Summary ---
Demographics + + + | Address | [address] | | | [place] [address] | + + + | Home Phone | | + + + | Preferred Language | Unknown | + + + | Marital Status | | + + + | Gnosticism Affiliation | Unknown | + + + | Race | Unknown | + + + | Ethnic Group | Unknown | + + + Author + + + | Author | [facility] | | | and [place] | + + + | Organization | [facility] | | | and [place] [...] + | Matthew Ramirez | ECON | [address] | | | | | [place] | | | | | [address] | | + + + + + Care Team Providers + +------+ + | Care Isotope Technologist Name | Role | Phone | + +------+ + | Ashly Rojo PA-C | PCP | | + +------+ + Reason for Visit + + + | Reason | Comments | + + + | Sore Throat | | + + + Encounter Details +--------+ + + + + | Date | Type | Department | Care Team | Description | +--------+ + + + + | 12/18/ | Telephone | [facility] | Matthew Shukla MD | Sore Throat | | 2019 | | GASTROENTEROLOGY | [address] [facility] | | | | | [address] [facility] | [place], [place] | | | | | [address] [place], [place] | [address] | | | | | [address] | [phone] | | | | | [phone] | | | +--------+ + + + [...]
--- OUTSIDE RECORDS SUMMARY | ~2019-10-14 | XMS | Encounter Summary ---
Demographics + + + | Address | [address] | | | [place] [address] | + + + | Home Phone | | + + + | Preferred Language | Unknown | + + + | Marital Status | | + + + | Quaker Affiliation | Unknown | + + + | Race | Unknown | + + + | Ethnic Group | Unknown | + + + Author + + + | Author | [facility] | | | and Nenoana | + + + | Organization | [facility] | [...] + | Matthew Ramirez | ECON | [address] | | | | | [place] | | | | | [address] | | + + + + + Care Team Providers + +------+ + | Care Mmd Unit Teacher Name | Role | Phone | [...] | 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 | [address] | | | | | adenocarcino | [address] | [place], | | | | | ma (HCC) | [address] | [place] [address] | | | | | Procedures | [place], [place] | Phone: | | | | | CT Chest | [address] | [phone] | | | | | Abdomen | Phone: | Fax: | | | | | Pelvis w | [phone] | [phone] | | | | | Contrast | Fax: | | | | | | CHG CT | [phone] | | | | | | SCAN,ABDOMEN | | | | | | | AND | | | | | | | PELVIS,W | | | | | | | CONTRAST ND | | | | | | | [...] | | ma (HCC) | [address] | [address] | | | | | | [place], [place] | [place], | | | | | | [address] | [place] [address] | | | | | | Phone: | Phone: | | | | | | [phone] | [phone] | | | | | | Fax: | Fax: | | | | | | [phone] | [phone] | +--------+ + + + + + Reason for Visit + + + | Reason | Comments | + + + | Results, Pathology | | + + + Encounter Details +--------+ + + + + | Date | Type | Department | Care Team | Description | +--------+ + + + + | 12/29/ | Telephone | [facility] | Matthew Shukla MD | Results, Pathology | | 2019 | | GASTROENTEROLOGY | [address] [facility] | | | | | [address] [facility] | [place], [place] | | | | | [address] [place], [place] | [address] | | | | | [address] | [phone] | | | | | [phone] | | | +--------+ + + + [...] +--------+ + + | AMB REFERRAL TO [facility] | Outpatient | Routin | Gastric [...]
--- OUTSIDE RECORDS SUMMARY | ~2019-10-14 | XMS | Encounter Summary ---
Demographics + + + | Address | [address] | | | [place] [address] | + + + | Home Phone | | + + + | Preferred Language | Unknown | + + + | Marital Status | | + + + | Scientologist Affiliation | NRP | + + + | Race | White | + + + | Ethnic Group | Not or | + + + Author + + + | Author | [facility] | + + + | Organization | [facility] | + + + | Address | Unknown | + + + | Phone | Unavailable | + + + Support + + + + + | Name | Relationship | Address | Phone | + + + + + | Matthew Ramirez | CHRIS | [address] | | | | | [place] | | | | | [address] | | + + + + + | Nella Lowery ECON | Unknown | | + + + + + Care Team Providers + +------+ + | Care Stave Log Cut Off Saw Operator Name | Role | Phone | + +------+ + | Long Copeland MD | PCP | | + +------+ + Encounter Details +--------+ + + + + | Date | Type | Department | Care Team | Description | +--------+ + + + + | 10/25/ | Hospital | Cardiac | Sjh, Car Ecg Tech | | | 2010 | Encounter | Non-Invasive Testing | [address] | | | | | at [facility] | [facility] | | | | | [address] | [place] [address] | | | | | Loop [facility] | | | | | | [place], 2nd floor | | | | | | [place], [place] | | | | | | [address] | | | | | | [phone] | | | +--------+ + + + [...] nostril | | | | | | Shell Knob | once daily. | | | | | + + + +---------+--------+ + documented as of this encounter Plan of Treatment Not on filedocumented as of this encounter Procedures + +--------+ + + + | Procedure Name | Priori | Date/Time | Associated Diagnosis | Comments | | | ty | | | | + +--------+ + + + | 12 LEAD ECG | Routin | 10/25/2010 | Pre-op evaluation | Results for this | | | e | 12:47 PM | | procedure are in the | | | | PDT | | results section. | + +--------+ + + + documented in this encounter Results 12 LEAD ECG (10/25/2010 12:47 PM PDT) + + + + + + | Component | Value | Ref Range | Performed | Pathologist | | | | | At | Signature | + + + + + + | VENTRICULAR | 84 | BPM | [facility] | | | RATE | | | OF | | | | | | CARDIOLOGY | | + + + + + + | ATRIAL RATE | 84 | BPM | [facility] | | | | | | OF | | | | | | CARDIOLOGY | | + + + + + + | P-R | 156 | ms | [facility] | | | INTERVAL | | | OF | | | | | | CARDIOLOGY | | + + + + + + | QRS | 102 | ms | [facility] | | | DURATION | | | OF | | | | | | CARDIOLOGY | | + + + + + + | QT | 394 | ms | [facility] | | | | | | OF | | | | | | CARDIOLOGY | | + + + + + + | QTC | 465 | ms | [facility] | | | | | | OF | | | | | | CARDIOLOGY | | + + + + + + | P AXIS | 63 | degrees | [facility] | | | | | | OF | | | | | | CARDIOLOGY | | + + + + + + | R AXIS | -44 | degrees | [facility] | | | | | | OF | | | | | | CARDIOLOGY | | + + + + + + | T AXIS | 73 | degrees | [facility] | | | | | | OF | | | | | | CARDIOLOGY | | + + + + + + | EKG | Normal sinus rhythmLeft | | [facility] | | | DIAGNOSIS | axis deviationMinimal | | OF | | | | voltage criteria for | | CARDIOLOGY | | | | LVH, may be normal | | | | | | variantAbnormal ECG"I | | | | | | have personally | | | | | | interpreted this report, | | | | | | either alone or with a | | | | | | trainee."Confirmed by | | | | | | RADHA MO ([id number]) on | | | | | | 10/27/2010 6:34:18 AM | | | | + + + + + + + + | Specimen | + + | | + + + + + | Narrative | Performed At | + + + | Please click | [facility] OF | | on view image for the detailed interpretation from [employer] results. | CARDIOLOGY | + + + + + + + + | Performing | Address | City/State/Zipcode | Phone Number | | Organization | | | | + + + + + | [facility] | [address] | [place], [place] | | | CARDIOLOGY | [address] | [address] | | + + + + + documented in this encounter Visit Diagnoses Not on filedocumented in this encounter
--- OUTSIDE RECORDS SUMMARY | ~2019-10-14 | XMS | Encounter Summary ---
Demographics + + + | Address | [address] | | | [place] [address] | + + + | Home Phone | | + + + | Preferred Language | Unknown | + + + | Marital Status | | + + + | Mu-Ism Affiliation | Unknown | + + + | Race | Unknown | + + + | Ethnic Group | Unknown | + + + Author + + + | Author | [facility] | | | and Nenoana | + + + | Organization | [facility] | | | and [...] + | Matthew Ramirez | CHRIS | [address] | | | | | [place] | | | | | [address] | | + + + + + Care Team Providers + +------+ + | Care Message Clerk Name | Role | Phone | + +------+ + PCP | Unavailable | + +------+ + Encounter Details +--------+ + + + + | Date | Type | Department | Care Team | Description | +--------+ + + + + | 09/06/ | Hospital | [facility] | | | | 2004 | Encounter | MED CTR XRAY [address] | | | | | | [address] | | | | | | [place] [address] | | | | | | [phone] | | | +--------+ + + + [...]
--- OUTSIDE RECORDS SUMMARY | ~2019-10-14 | XMS | Clinical Summary ---
Demographics + + + | Address | [address] | | | [place] [address] | + + + | Home Phone | | + + + | Preferred Language | Unknown | + + + | Marital Status | | + + + | Faith Affiliation | NRP | + + + | Race | White | + + + | Ethnic Group | Not or | + + + Author + + + | Author | NON REVENUE LOCATIONS | + + + | Organization | NON REVENUE LOCATIONS | + + + | Address | Unknown | + + + | Phone | Unavailable | + + + Support + + + + + | Name | Relationship | Address | Phone | + + + + + | Matthew Ramirez | ECON | [address] | | | | | [place] | | | | | [address] | | + + + + + | Nella Haque | ECON | Unknown | | + + + + + Care Team Providers + +------+ + | Care Director Patient Accounting Name | Role | Phone | + +------+ + | Long Copeland MD | PCP | | + +------+ + Source Comments [facility] is fully live on [facility] and [facility] Allergies + + + + + + | Active Allergy | Reactions | Severity | Noted | Comments | | | | | Date | | + + + + + + | Codeine | Psychosis | Medium | 05/25/20 | | | | | | 11 | | + + + + + + | Sulfa (Sulfonamide | Edema | Medium | 10/04/19 | | | Antibiotics) | | | 11 | | + + + + + [...] 0 | | | Activ | | (LEVOTHROID) 112 mcg | mouth once daily. | | | | | e | | Oral Tablet | | | | | | | + + + +---------+------+------+-------+ | doxepin 75 mg Oral | Take 10 mg by mouth | | 0 | | | Activ | | Capsule | once daily at | | | | | e | | | bedtime. | | | | | | + + + +---------+------+------+-------+ | DULoxetine | Take 60 mg by mouth | | 0 | | | Activ | | (CYMBALTA) 60 mg | once daily. | | | | | e | | Oral Capsule, | | | | | | | | Delayed | | | | | | | | Release(E.C.) | | | | | | | + + + +---------+------+------+-------+ | lisinopril 20 mg | Take 20 mg by mouth | | 0 | | | Activ | | Oral Tablet | once daily. | | | | | e | + + + +---------+------+------+-------+ | triamcinolone 55 | Instill 2 Sprays | | 0 | | | Activ | | mcg Nasal Aerosol, | into each nostril | | | | | e | | [place] | once daily. | | | | | | + + + +---------+------+------+-------+ | CALCIUM | Take by mouth. | | 0 | | | Activ | | CARBONATE/VITAMIN D3 | | | | | | e | | (CALCIUM 600 + D | | | | | | | | OR) | | | | | | | + + + +---------+------+------+-------+ | ascorbic acid SR | Take 1,000 mg by | | 0 | | | Activ | | (VITAMIN C) 1,000 mg | mouth two times | | | | | e | | Oral Tablet | daily. | | | | | | + + + +---------+------+------+-------+ | cyanocobalamin | Take 5,000 mcg by | | 0 | | | Activ | | (VITAMIN B-12) 1,000 | mouth once daily. | | | | | e | | mcg Oral Tablet | | | | | | | + + + +---------+------+------+-------+ | polyethylene | Mix 1 packet and | | 0 | | | Activ | | glycol 17 gram oral | take orally two | | | | | e | | powder in packet | times daily. | | | | | | + + + +---------+------+------+-------+ | Psyllium | Mix 1 packet and | | 0 | | | Activ | | Husk-Aspartame 3.4 | take orally once | | | | | e | | gram oral powder in | daily. | | | | | | | packet | | | | | | | + + + +---------+------+------+-------+ | acetaminophen 500 | Take 1,000 mg by | | 0 | | | Activ | | mg oral tablet | mouth three times | | | | | e | | | daily. | | | | | | + + + +---------+------+------+-------+ | letrozole 2.5 mg | Take 1 tablet by | 90 | 3 | 03/1 | | Activ | | oral tablet | mouth once daily. | tablet | | 01/29 | | e | | | | | | 20 | | | + + + +---------+------+------+-------+ | ALPRAZolam 0.25 mg | Take 0.25 mg by | | 0 | | | Activ | | oral tablet | mouth three times | | | | | e | | | daily as needed. | | | | | | + + + +---------+------+------+-------+ | fluticasone | Inhale 1 puff two | | 0 | | | Activ | | propion-salmeteroL | times daily. | | | | | e | | 250-50 mcg/dose | | | | | | | | inhalation blister | | | | | | | | with device | | | | | | | + + + +---------+------+------+-------+ | Acetaminophen 500 | Take 2 capsules by | 180 | 5 | 03/1 | | Activ | | mg oral capsule | mouth three times | capsule | | 9/20 | | e | | | daily. | | | 20 | | | + + + +---------+------+------+-------+ | TRAMADOL 50 mg | TAKE ONE TABLET BY | 90 | 0 | 05/2 | | Activ | | oral tablet | MOUTH EVERY 8 HOURS | tablet | | 10/29 | | e | | | NEEDED FOR | | | 20 | | | | | MODERATE PAIN | | | | | | + + + +---------+------+------+-------+ Active Problems + + + | Problem | Noted Date | + + + | Metastatic breast cancer | 07/29/2019 | + + + Encounters +--------+ + + + + | Date | Type | Specialty | Care Team | Description | +--------+ + + + + | 10/13/ | Telephone | Hematology & | Gail Mckeon MD | Hospital Admission | | 2019 | | Oncology | | | +--------+ + + + + | 10/13/ | Intake | | | N/A | | 2019 | | | | | +--------+ + + + + | 10/01/ | Telephone | Hematology & | Rodriguez Bower MD | Refill Request | 2019 | | Oncology | | | +--------+ + + + + | 08/23/ | Refill | Hematology & | Rodriguez Bower MD | Prescription | 2019 | | Oncology | | (TRAMADOL 50 mg) | +--------+ + + + + | 08/15/ | Refill | Hematology & | Rodriguez Bower MD | Refill Request | 2019 | | Oncology | | | +--------+ + + + + | 08/15/ | Refill | Hematology & | Rodriguez Bower MD | Refill Request | | 2019 | | Oncology | | | +--------+ + + + + | 08/02/ | Telephone | Hematology & | Rodriguez Bower MD | Medication | | 2020 | | Oncology | | Adjustment | | | | | | (Acetaminophen | | | | | | adjustment ) | +--------+ + + + + | 07/28/ | Office | Hematology & | Rodriguez Bower MD | Metastatic breast | | 2019 | Visit | Oncology | | cancer (HCC) | | | | | | (Primary Dx) | +--------+ + + + + | 07/28/ | Refill | Hematology & | Larissa Colón | Medication | | 2020 | | Oncology | PharmD | (Letrozole) | +--------+ + + + + | 07/27/ | Telephone | Hematology & | Rodriguez Bower MD | Symptom Management | | 2020 | | Oncology | | (Constipation) | +--------+ + + + + | 07/25/ | Telephone | Hematology & | Rodriguez Bower MD | Scheduling | | 2019 | | Oncology | | | +--------+ + + + + from Last 3 Months Family History + + +------+ + | Medical History | Relation | Name | Comments | + + +------+ + | Cancer | Brother | | throat, neck | + + +------+ + | Cancer | Father | | multiple myeloma | + + +------+ + | Cancer | Mother | | multiple myeloma | + + +------+ + | Heart Disease | Mother | | CHF | + + +------+ + | Cancer | Sister | | breast | + + +------+ + + +------+--------+ + | Relation | Name | Status | Comments | + +------+--------+ + | Brother | | | | + +------+--------+ + | Father | | | | + +------+--------+ + | Mother | | | | + +------+--------+ + | Sister | | | | + +------+--------+ + Social History + +-------+ +--------+------+ | [...] | + + + + + | Mammogram | | | | | | 9 | | | + + + + + | Pneumococcal | | | | | vaccination (1 of 2 | 4 | | | | - PCV13) | | | | + + + + + | Influenza (Flu) | Completed | 01/30/2019, 01/13/2018, | | | vaccination | | 01/29/2017, Additional history | | | | | exists | | + + + + + Results Not on filefrom Last [...] + +--------+ | MEDICARE | MEDICA | xxxxxxxxxxx | 10/11/19 | [phone] | [address] | Medica | | | RE A & | | 04-Pre | 1 | [address] | re | | | B | | sent | | [place] | | | | | | | | [address] | | + +--------+ +--------+ + +--------+ | MODA MEDICARE | MODA | xxxxxxxxx | 05/12/19 | [phone] | [address] | POS | | SUPPLEMENT | MEDICA | | 19-Pre | 4 | [address] | | | | RE | | sent | | [place], | | | | SUPPLE | | | | [place] [address] | | | | MENT | | | | | | + [...] Person | Self | [birth year] | [address] | | | simeon/Rene | | 1941 | [phone] | [place] | | | amrik | | | 9 (Home) | [address] | + +--------+ +--------+ + + Advance Directives + + + + + | Code Status | Date | Date | Comments | | | Activated | Inactivated | | + + + + + | Full Code | 10/26/2010 | 10/26/2010 | | | | 6:04 AM | 5:33 PM | | + + + + +
--- OUTSIDE RECORDS SUMMARY | ~2019-10-14 | XMS | Encounter Summary ---
Demographics + + + | Address | [address] | | | [place] [address] | + + + | Home Phone | | + + + | Preferred Language | Unknown | + + + | Marital Status | | + + + | Worship Affiliation | Unknown | + + + | Race | Unknown | + + + | Ethnic Group | Unknown | + + + Author + + + | Author | [facility] | | | and Nenoana | + + + | Organization | [facility] | | | and [...] + | Matthew Ramirez | ECON | [address] | | | | | [place] | | | | | [address] | | + + + + + Care Team Providers + +------+ + | Care Group Dynamics Instructor Name | Role | Phone | + [...] Closed | | Radiology | Diagnoses | | [facility] | | | | | Breast | [facility], | Scan [address] | | | | | cancer | [place], | [place] | | | | | metastasized | MD [address] | [place], [place] | | | | | to multiple | [address] | [address] | | | | | sites, left | [place], | Phone: | | | | | (HCC) | [place] [address] | [phone] | | | | | Procedures | Phone: | Fax: | | | | | PET CT Skull | [phone] | [phone] | | | | | Base To Mid | Fax: | | | | | | Thigh | [phone] | | +--------+--------+ + + + + Reason for Visit + + + | Reason | Comments | + + + | Care Coordination | | + + + Encounter Details +--------+ + + + + | Date | Type | Department | Care Team | Description | +--------+ + + + + | 07/09/ | Telephone | [facility] | [facility], | Care Coordination | | 2019 | | MED CTR MEDICAL | Luis Richards MD [address] | | | | | [facility]OGY CLIN[facility] [address] | [address] | | | | | [address] [place] | [place] [address] | | | | | [place] [address] | [phone] | | | | | [phone] | | | +--------+ + + + [...] Not on filedocumented as of this encounter Results PET CT Skull Base [...] + | Diagnosis | + + | Metastatic breast cancer (HCC) - Primary | + + | Malignant neoplasm of central portion of left female breast (HCC) Malignant neoplasm | | of central portion of female breast | + + | Breast cancer metastasized to multiple sites, left (HCC) | + + documented in this encounter"
--- OUTSIDE RECORDS SUMMARY | ~2019-10-14 | XMS | Encounter Summary ---
Demographics + + + | Address | [address] | | | [place] [address] | + + + | Home Phone | | + + + | Preferred Language | Unknown | + + + | Marital Status | | + + + | Restoration Affiliation | NRP | + + + | Race | White | + + + | Ethnic Group | Not or | + + + Author + + + | Author | [facility] | + + + | Organization | [facility] | + + + | Address | Unknown | + + + | Phone | Unavailable | + + + Support + + + + + | Name | Relationship | Address | Phone | + + + + + | Matthew Ramirez | CHRIS | [address] | | | | | [place] | | | | | [address] | | + + + + + | Nella Haque | ECON | Unknown | | + + + + + Care Team Providers + +------+ + | Care Gun Stocker Name | Role | Phone | + [...] Clinics at S | [address] [facility] | | | | | [facility] | [place], [place] | | | | | [facility] and | [address] | | | | | Healing [address] | [phone] | | | | | Ave [place], [place] | | | | | | [address] | | | | | | [phone] | | | +--------+--------+ + + + [...]
--- OUTSIDE RECORDS SUMMARY | ~2019-10-14 | XMS | Encounter Summary ---
Demographics + + + | Address | [address] | | | [place] [address] | + + + | Home Phone | | + + + | Preferred Language | Unknown | + + + | Marital Status | | + + + | Taoist Affiliation | NRP | + + + | Race | White | + + + | Ethnic Group | Not or | + + + Author + + + | Author | [facility] | + + + | Organization | [facility] | + + + | Address | Unknown | + + + | Phone | Unavailable | + + + Support + + + + + | Name | Relationship | Address | Phone | + + + + + | Matthew Ramirez | CHRIS | [address] | | | | | [place] | | | | | [address] | | + + + + + | Nella Haque | ECON | Unknown | | + + + + + Care Team Providers + +------+ + | Care Recreation Clerk Name | Role | Phone | [...] | | | | ma (HCC) | [place], | | | | | | Procedures | [place] | | | | | | [place] A[place]OM[place] | [address] | | | | | | AND PELVIS W | Phone: | | | | | | IV CONTRAST | [phone] | | | | | | | Fax: | | | | | | | [phone] | | + +--------+ + + + [...] | | | | ma (HCC) | [place], | | | | | | Procedures | [place] | | | | | | [place] ABDOM[place] | [address] | | | | | | AND PELVIS W | Phone: | | | | | | IV CONTRAST | [phone] | | | | | | | Fax: | | | | | | | [phone] | | + +--------+ + + + [...] | | | [address] Mailcode: | [place], [place] | | | | | [address] | [address] | | | | | Health and Healing, | [phone] | | | | | [address] | | | | | | Floor [facility] [place] | | | | | | [address] | | | | | | [phone] | | | +--------+ + + + [...] nostril | | | | | | [place] | once daily. | | | | [...] (H) | 0.6 - 1.1 mg/dL | AKYULI Bermudez [facility], | | | POC | | | [...] + + | DANISHA FARIAS | [address] [facility] | [place] [address] | | | OF CARE TESTS | [...]
--- OUTSIDE RECORDS SUMMARY | ~2019-10-14 | XMS | Encounter Summary ---
Demographics + + + | Address | [address] | | | [place] [address] | + + + | Home Phone | | + + + | Preferred Language | Unknown | + + + | Marital Status | | + + + | Methodist Affiliation | Unknown | + + + | Race | Unknown | + + + | Ethnic Group | Unknown | + + + Author + + + | Author | [facility] | | | and Nenoana | + + + | Organization | [facility] | | | and Nenoana [...] + | Matthew Ramirez | ECON | [address] | | | | | [place] | | | | | [address] | | + + + + + Care Team Providers + +------+ + | Care Emergency Communications Officer Name | Role | Phone | + +------+ + | Ashly Rojo PA-C | PCP | | + +------+ + Reason for Referral Diagnostic/Screening (Routine) + +--------+ + + + + | Status | Reason | Specialty | Diagnoses / | Referred By | Referred To | | | | | Procedures | Contact | Contact | + +--------+ + + + + | Authorized | | | Diagnoses | | [address] ST | | | | | Abnormal | Arpan, | [facility] | | | | | findings on | Luis Richards, | [facility] | | | | | diagnostic | MD [address] | [address] | | | | | imaging of | [address] | AVE | | | | | liver and | [place], | [place], [place] | | | | | biliary | [place] [address] | [address] | | | | | tract | Phone: | Phone: | | | | | Metastatic | [phone] | [phone] | | | | | breast | Fax: | | | | | | cancer (HCC) | [phone] | | | | | | Procedures | | | | | | | PET CT | | | | | | | Skull Base | | | | | | | To Mid Thigh | | | + +--------+ + + + + Reason for Visit + + + | Reason | Comments | + + + | Family Concerns/ | | | Communication | | + + + Encounter Details +--------+ + + + + | Date | Type | Department | Care Team | Description | +--------+ + + + + | 10/12/ | Telephone | [facility] | [facility], | Family Concerns/ | | 2019 | | MED CTR MEDICAL | Luis Richards MD [address] | Communication | | | | [facility]OGY CLINIC [address] | [facility] | | | | | [facility] | [place] [address] | | | | | [place] [address] | [phone] | | | | | [phone] | | | +--------+ + + + [...] of this encounter Plan of Treatment + +---------+--------+ + + | Name | Type | Priori | Associated Diagnoses | Order Schedule | | | | ty | | | + +---------+--------+ + + | PET CT Skull Base To | Imaging | Routin | Abnormal findings | Expected: | | Mid Thigh | | e | on diagnostic | 10/14/2019, Expires: | | | | | imaging of liver and | 10/13/2020 | | | | | biliary tract | | | | | | Metastatic breast | | | | | | cancer (HCC) | | + +---------+--------+ + + documented as of this encounter Visit Diagnoses + + | Diagnosis | + + | Metastatic breast cancer (HCC) - Primary | + + | Abnormal findings on diagnostic imaging of liver and biliary tract | + + documented in this encounter"
--- OUTSIDE RECORDS SUMMARY | ~2019-10-14 | XMS | Encounter Summary ---
Demographics + + + | Address | [address] | | | [place] [address] | + + + | Home Phone | | + + + | Preferred Language | Unknown | + + + | Marital Status | | + + + | Scientology Affiliation | NRP | + + + | Race | White | + + + | Ethnic Group | Not or | + + + Author + + + | Author | [facility] | + + + | Organization | [facility] | + + + | Address | Unknown | + + + | Phone | Unavailable | + + + Support + + + + + | Name | Relationship | Address | Phone | + + + + + | Matthew Ramirez | CHRIS | [address] | | | | | [place] | | | | | [address] | | + + + + + | Nella Haque | ECON | Unknown | | + + + + + Care Team Providers + +------+ + | Care Laborer Wrecking And Salvaging Name | Role | Phone | + +------+ + | Long Copeland MD | PCP | | + +------+ + Encounter Details +--------+ + + + + | Date | Type | Department | Care Team | Description | +--------+ + + + + | 08/22/ | Outside | UNKNOWN DEPARTMENT | Other, Faculty | | | 2019 | Records | [address] [facility] | [phone] | | | | | [address] | | | | | | [place], [place] | | | | | | [address] | | | +--------+ + + + [...] + | OUTSIDE RADIOLOGY - | | 12/31/2018 | | Results for this | | CT | | 12:00 AM | | procedure are in the | | | | PDT | | results section. | + +--------+ + + + documented in this encounter Results OUTSIDE RADIOLOGY - CT (12/31/2018 12:00 AM PDT) + + + | Narrative | Performed At | + + + | | | + + + documented in this encounter Visit Diagnoses Not on filedocumented in this encounter"
--- OUTSIDE RECORDS SUMMARY | ~2019-10-14 | XMS | Encounter Summary ---
Demographics + + + | Address | [address] | | | [place] [address] | + + + | Home Phone [...] + | Matthew Ramirez | CHRIS | [address] | | | | | [place] | | | | | [address] | | + + + + + | Nella Haque | ECON | Unknown | | + + + + + Care Team Providers + +------+ + | Care Customer Acquisition Manager Name | Role | Phone | + +------+ + | Long Copeland MD | PCP | | + +------+ + Reason for Visit + + + | Reason | Comments | + + + | Refill Request | Tamoxifen | + + + Encounter Details +--------+--------+ + + + | Date | Type | Department | Care Team | Description | +--------+--------+ + + + | 06/23/ | Refill | [facility] | Rodriguez Bower MD | Refill Request | | 2019 | | Clinics at S | [address] | (Tamoxifen) | | | | [facility] | [place], [place] | | | | | [facility] and | [address] | | | | | Healing [address] | [phone] | | | | | [address] [place], [place] | | | | | | [address] | | | | | | [phone] | | | +--------+--------+ + + + [...]
--- OUTSIDE RECORDS SUMMARY | ~2019-10-14 | XMS | Encounter Summary ---
Demographics + + + | Address | [address] | | | [place] [address] | + + + | Home Phone | | + + + | Preferred Language | Unknown | + + + | Marital Status | | + + + | Congregation Affiliation | NRP | + + + [...] + | Matthew Ramirez | CHRIS | [address] | | | | | [place] | | | | | [address] | | + + + + + | Nella Haque | ECON | Unknown | | + + + + + Care Team Providers + +------+ + | Care Elementary School Counselor Name | Role | Phone | + +------+ + | Long Copeland MD | PCP | | + +------+ + Encounter Details +--------+ + + + + | Date | Type | Department | Care Team | Description | +--------+ + + + + | 08/22/ | Outside | UNKNOWN DEPARTMENT | Other, Faculty | | | 2019 | Records | [address] [facility] | [phone] | | | | | [address] | | | | | | [place], [place] | | | | | | [address] | | | +--------+ + + + [...]
--- OUTSIDE RECORDS SUMMARY | ~2019-10-14 | XMS | Encounter Summary ---
Demographics + + + | Address | [address] | | | [place] [address] | + + + | Home Phone | | + + + | Preferred Language | Unknown | + + + | Marital Status | | + + + | Zoroastrian Affiliation | Unknown | + + + | Race | Unknown | + + + | Ethnic Group | Unknown | + + + Author + + + | Author | [facility] | | | and [place] | + + + | Organization | [facility] | | | and [...] + | Matthew Ramirez | CHRIS | [address] | | | | | [place] | | | | | [address] | | + + + + + Care Team Providers + +------+ + | Care Vault Manager Name | Role | Phone | + +------+ + PCP | Unavailable | + +------+ + Encounter Details +--------+ + + + + | Date | Type | Department | Care Team | Description | +--------+ + + + + | 06/27/ | Hospital | [facility] | | | | 2003 | Encounter | MED CTR XRAY [address] | | | | | | [address] | | | | | | [place] [address] | | | | | | [phone] | | | +--------+ + + + [...]
--- OUTSIDE RECORDS SUMMARY | ~2019-10-14 | XMS | Encounter Summary ---
Demographics + + + | Address | [address] | | | [place] [address] | + + + | Home Phone | | + + + | Preferred Language | Unknown | + + + | Marital Status | | + + + | Amish Affiliation | Unknown | + + + | Race | Unknown | + + + | Ethnic Group | Unknown | + + + Author + + + | Author | [facility] | | | and [place] | + + + | Organization | [facility] | | | and [place]eno[place] [...] + | Matthew Ramirez | ECON | [address] | | | | | [place] | | | | | [address] | | + + + + + Care Team Providers + +------+ + | Care Wood Type Finisher Name | Role | Phone | + +------+ + | Ashly Rojo PA-C | PCP | | + +------+ + Encounter Details +--------+ + + + + | Date | Type | Department | Care Team | Description | +--------+ + + + + | 01/05/ | Abstract | [facility] | Provider, | | | 2019 | | SURGERY [address] | MD [address] | | | | | [place], [place] | [place] | | | | | [address] | [place] [address] | | | | | [phone] | | | +--------+ + + + [...] + | SURGICAL PATHOLOGY | Routin | 12/20/2002 | | Results for this | | EXAM | e | | | procedure are in the | | | | | | results section. | + +--------+ + + + documented in this encounter Results Surgical Pathology Exam (12/20/2002) + + | Specimen | + + | Tissue | + + + + + | Narrative | Performed At | + + + | Surgical Pathology Report Collected: December 20, 2002 | | | Specimen source: A. Sigmoid colon. Final pathologic Diagnosis: | | | Sigmoid colon, segmental excision. - Diverticulosis. | | + + + documented in this encounter Visit Diagnoses Not on filedocumented in this encounter"
--- OUTSIDE RECORDS SUMMARY | ~2019-10-14 | XMS | Encounter Summary ---
Demographics + + + | Address | [address] | | | [place] [address] | + + + | Home Phone | | + + + | Preferred Language | Unknown | + + + | Marital Status | | + + + | Episcopalian Affiliation | NRP | + + + [...] + | Matthew Ramirez | CHRIS | [address] | | | | | [place] | | | | | [address] | | + + + + + | Nella Haque | ECON | Unknown | | + + + + + Care Team Providers + +------+ + | Care Disposal Operator Name | Role | Phone | + +------+ + | Long Copeland MD | PCP | | + +------+ + Reason for Visit AUTH/CERT +--------+--------+ + + + + | Status | Reason | Specialty | Diagnoses / | Referred By | Referred To | | | | | Procedures | Contact | Contact | +--------+--------+ + + + + | Closed | | | | | [facility] | | | | | | | Short Stay | | | | | | | [address] | | | | | | | [address] | | | | | | | [address] | | | | | | | [facility] | | | | | | | [place] | | | | | | | [facility] | | | | | | | ([facility]) | | | | | | | [place], | | | | | | | [place] [address] | | | | | | | Phone: | | | | | | | [phone] | | | | | | | Fax: | | | | | | | [phone] | +--------+--------+ + + + + Encounter Details +--------+ + + + + | Date | Type | Department | Care Team | Description | +--------+ + + + + | 10/26/ | Hospital | [facility] [address] | Avis Rios | | | 2010 | Encounter | [address] | MD Gillian [address] | | | | | [facility] | [address] | | | | | [place] [facility] | [place], [place] | | | | | ([facility]) | [address] | | | | | [place], [place] | [phone] | | | | | [address] | | | | | | [phone] | | | +--------+ + + + [...] + + + | Blood Pressure | 135/74 | 10/26/2010 9:21 AM | | | | | PDT | | + + + + + | Pulse | 72 | 10/26/2010 9:21 AM | | | | | PDT | | + + + + + | Temperature | 36.4 C (97.5 F) | 10/26/2010 8:40 AM | | | | | PDT | | + + + + + | Respiratory Rate | 16 | 10/26/2010 9:21 AM | | | | | PDT | | + + + + + | Oxygen Saturation | 97% | 10/26/2010 9:21 AM | | | | | PDT | | + + + + + | Inhaled Oxygen | - | - | | | Concentration | | | | + + + + + | Weight | 104.3 kg (229 lb 15 | 10/26/2010 6:00 AM | | | | oz) | PDT | | + + + + + | Height | 174.5 cm (5' 8.7") | 10/26/2010 6:00 AM | | | | | PDT | | + + + + + | Body Mass Index | 34.25 | 10/26/2010 6:00 AM | | | | | PDT | | + + + + + documented in this encounter Discharge Instructions Instructions Laura Mendes RN - 10/26/2010[facility] Transvaginal Suburethral Sling WHAT YOU SHOULD KNOW A transvaginal suburethral sling is surgery to treat stress incontinence (bi-RGL-tqy-nasima) . The goal of surgery is to support the urethra in its correct position. Doing this may mi ect stress incontinence. AFTER YOU LEAVE: Your medicines: You should have received a medication prescription(s) for post-operative pain from your provider either today or at your pre-operative clinic visit. Please use these as instructed and call your doctor s office if your pain is not adequately managed or you need a refill . Please resume all of your other routine medications unless you were instructed otherwise by your doctor. Activity Guidelines: You may drive as soon as you are no longer using narcotic pain medicine. You may return to work at the time previously discussed at your pre-operative visit. You may shower. NO tub baths for 2 weeks. Do not lift anything heavier than 5 pounds until you are seen for your postop visit. Do not place anything into your vagina. Fuentes Catheter: You may go home from the hospital with a Fuentes catheter in your bladder. B ecause the catheter is in your urethra, you may feel like you have to urinate but the cathet er will drain urine for you. Do not pull on the catheter because this will make you hurt or bleed. Do not kink the catheter because your urine will not be able to drain. If you have any questions about your catheter, please contact your doctor s office. CALL _Dr. Rios_ IF: You have a temperature greater than 100.5 Your stitches come apart. Your bandage becomes soaked with blood. You cannot urinate. The skin around your stitches is red, swollen, or has pus coming from the incision (cut) . You have chills, a cough, or feel weak and achy. Your skin is itchy, swollen or has a red rash. Your medicine may be causing these sympt oms. You have questions or concerns about your surgery, medicine, or recovery. SEEK CARE IMMEDIATELY if you have chest pain or trouble breathing. HOW TO REACH YOUR DOCTOR Friday call the [facility] at [phone] After hours, weekend and holidays call the Hospital [employer] Coating Machine Setter at [phone]. Ask them to page your doctor. RETURN APPOINTMENT Date__11/29/10__ Time _11:00__ Place__Dr. Rios office_ ___x____ Already pre-scheduled Please call the clinic if you need to cancel or reschedule your appointment. documented in this encounter Medications at Time [...] nostril | | | | | | Tate | once daily. | | | | | + + + +---------+--------+ + documented as of this encounter Plan of Treatment Not on filedocumented as of this encounter Procedures + +--------+ + + + | Procedure Name | Priori | Date/Time | Associated Diagnosis | Comments | | | ty | | | | + +--------+ + + + | HB TAPE TVT GYNECARE | Routin | 06/16/2015 | | Results for this | | | e | 6:28 AM | | procedure are in the | | | | PST | | results section. | + +--------+ + + + | ANESTHESIA/SEDATION | | 10/26/2010 | | Results for this | | | | 12:00 AM | | procedure are in the | | | | PDT | | results section. | + +--------+ + + + | ANESTHESIA/SEDATION | | 10/26/2010 | | Results for this | | | | 12:00 AM | | procedure are in the | | | | PDT | | results section. | + +--------+ + + + documented in this encounter Results HB TAPE TVT GYNECARE (06/16/2015 6:28 AM PST)ANESTHESIA/SEDATION (10/26/2010 12:00 AM PDT) + + + | Narrative | Performed At | + + + | | | + + + + + | Procedure Note | + + | Avis Rios MD - 10/26/2010 10:30 AM PDT | | | + + ANESTHESIA/SEDATION (10/26/2010 12:00 AM PDT) + + + | Narrative | Performed At | + + + | | | + + + + + | Procedure Note | + + | Derek Sherman - 10/26/2010 8:44 AM PDT | | | + + documented in this encounter Visit Diagnoses Not on filedocumented in this encounter Administered Medications + +--------+---------+------+------+------+ | Medication Order | MAR | Action | Dose | Rate | Site | | | Action | Date | | | | + +--------+---------+------+------+------+ + +---+ | oxyCODONE (immediate release) | | | (aka ROXICODONE) tablet 1 dose, | | | Starting Fri10/26/10 at 1036, | | | Until Fri10/26/10 at 1040 | | + +---+ | | | + +---+ + +-------+ +------+---+---+ | oxyCODONE immediate release | Given | 10/27/19 | 5 mg | | | | (aka ROXICODONE) tablet 5 mg 5 | | 11 10:40 | | | | | mg, oral, EVERY 4 HOURS | | AM PDT | | | | | NEEDED, Starting Fri10/26/10 at | | | | | | | 0732, Until Fri10/26/10 at 1733, | | | | | | | severe pain | | | | | | + +-------+ +------+---+---+ +---+---+ | | | +---+---+ documented in this encounter
--- OUTSIDE RECORDS SUMMARY | ~2019-10-14 | XMS | Encounter Summary ---
Demographics + + + | Address | [address] | | | [place] [address] | + + + | Home Phone [...] + + + | Author | [facility] | + + + | Organization | [facility] | + + + | Address | Unknown | + + + | Phone | Unavailable | + + + Support + + + + + | Name | Relationship | Address | Phone | + + + + + | Matthew Ramirez | CHRIS | [address] | | | | | [place] | | | | | [address] | | + + + + + | Nella Haque | ECON | Unknown | | + + + + + Care Team Providers + +------+ + | Care Elementary Supervisor Name | Role | Phone | [...] Ave | (Tamoxifen) | | | | [facility] | [place], [place] | | | | | [facility] and | [address] | | | | | Healing [address] | [phone] | | | | | Ave [place], [place] | | | | | | [address] | | | | | | [phone] | | | +--------+--------+ + + + [...]
--- OUTSIDE RECORDS SUMMARY | ~2019-10-14 | XMS | Encounter Summary ---
Demographics + + + | Address | [address] | | | [place] [address] | + + + | Home Phone | | + + + | Preferred Language | Unknown | + + + | Marital Status | | + + + | Rastafarian Affiliation | NRP | + + + | Race | White | + + + | Ethnic Group | Not or | + + + Author + + + | Author | [facility] | + + + | Organization | [facility] | + + + | Address | Unknown | + + + | Phone | Unavailable | + + + Support + + + + + | Name | Relationship | Address | Phone | + + + + + | Matthew Ramirez | CHRIS | [address] | | | | | [place] | | | | | [address] | | + + + + + | Nella Haque | ECON | Unknown | | + + + + + Care Team Providers + +------+ + | Care Child Watch Attendant Name | Role | Phone | + [...] [address] | Coordination | | | | [facility] | [place], [place] | | | | | for Health and | [address] | | | | | Healing [address] | [phone] | | | | | [place], [place] | | | | | | [address] | | | | | | [phone] | | | +--------+ + + + [...]
--- OUTSIDE RECORDS SUMMARY | ~2019-10-14 | XMS | Encounter Summary ---
Demographics + + + | Address | [address] | | | [place] [address] | + + + | Home Phone | | + + + | Preferred Language | Unknown | + + + | Marital Status | | + + + | Taoism Affiliation | Unknown | + + + | Race | Unknown | + + + | Ethnic Group | Unknown | + + + Author + + + | Author | [facility] | | | and [place] | + + + | Organization | [facility] | | | and [...] + | Matthew Ramirez | ECON | [address] | | | | | [place] | | | | | [address] | | + + + + + Care Team Providers + +------+ + | Care Filbert Grower Name | Role | Phone | + +------+ + | Ashly Rojo PA-C | PCP | | + +------+ + Reason for Visit + + + | Reason | Comments | + + + | Family/caregiver | | | Concerns | | + + + Encounter Details +--------+ + + + + | Date | Type | Department | Care Team | Description | +--------+ + + + + | 01/25/ | Telephone | [facility] | [place], | Family/caregiver | | 2019 | | MED [facility] | Luis Richards MD [address] | Concerns | | | | [facility] [address] | [facility] | | | | | [address] | [place] [address] | | | | | [place] [address] | [phone] | | | | | [phone] | | | +--------+ + + + [...]
--- OUTSIDE RECORDS SUMMARY | ~2019-10-14 | XMS | Encounter Summary ---
Demographics + + + | Address | [address] | | | [place] [address] | + + + | Home Phone [...] + | Matthew Ramirez | CHRIS | [address] | | | | | [place] | | | | | [address] | | + + + + + | Nella Haque | ECON | Unknown | | + + + + + Care Team Providers + +------+ + | Care Film Sound Engineer Name | Role | Phone | [...] Clinics at S | [address] [facility] | | | | | [facility] | [place], [place] | | | | | [facility] Health and | [address] | | | | | Healing [address] | [phone] | | | | | Ave [place], [place] | | | | | | [address] | | | | | | [phone] | | | +--------+--------+ + + + [...]
--- OUTSIDE RECORDS SUMMARY | ~2019-10-14 | XMS | Encounter Summary ---
Demographics + + + | Address | [address] | | | [place] [address] | + + + | Home Phone | | + + + | Preferred Language | Unknown | + + + | Marital Status | | + + + | Scientologist Affiliation | Unknown | + + + | Race | Unknown | + + + | Ethnic Group | Unknown | + + + Author + + + | Author | [facility] | | | and [place] | + + + | Organization | [facility] | | | and [place] | [...] + | Matthew Ramirez | ECON | [address] | | | | | [place] | | | | | [address] | | + + + + + Care Team Providers + +------+ + | Care Overhead Crane Inspector Name | Role | Phone | [...] + + | 01/20/ | Telephone | [facility] | Matthew Shukla MD | Results, Pathology | | 2019 | | GASTROENTEROLOGY | [address] | | | | | [address] [facility] | [place], [place] | | | | | [address] [place], [place] | [address] | | | | | [address] | [phone] | | | | | [phone] | | | +--------+ + + + [...]
--- OUTSIDE RECORDS SUMMARY | ~2019-10-14 | XMS | Encounter Summary ---
Demographics + + + | Address | [address] | | | [place] [address] | + + + | Home Phone [...] + | Matthew Ramirez | CHRIS | [address] | | | | | [place] | | | | | [address] | | + + + + + | Nella Haque | ECON | Unknown | | + + + + + Care Team Providers + +------+ + | Care Scanning Supervisor Name | Role | Phone | + +------+ + | Long Copeland MD | PCP | | + +------+ + Encounter Details +--------+ + + + + | Date | Type | Department | Care Team | Description | +--------+ + + + + | 10/10/ | Outside | UNKNOWN DEPARTMENT | Other, Faculty | | | 2019 | Records | [address] [facility] | [phone] | | | | | [address] | | | | | | [place], [place] | | | | | | [address] | | | +--------+ + + + [...]
--- OUTSIDE RECORDS SUMMARY | ~2019-10-14 | XMS | Encounter Summary ---
Demographics + + + | Address | [address] | | | [place] [address] | + + + | Home Phone [...] + | Matthew Ramirez | CHRIS | [address] | | | | | [place] | | | | | [address] | | + + + + + | Nella Haque | ECON | Unknown | | + + + + + Care Team Providers + +------+ + | Care Charge Account Authorizer Name | Role | Phone | + [...] | | | | ma (HCC) | [place], | | | | | | Procedures | [place] | | | | | | CT ABDOMEN | [address] | | | | | | AND PELVIS W | Phone: | | | | | | IV CONTRAST | [phone] | | | | | | | Fax: | | | | | | | [phone] | | + +--------+ + + + + Diagnostic Testing (Urgent) + +--------+ + + + + | Status | Reason | Specialty | Diagnoses / | Referred By | Referred To | | | | | Procedures | Contact | Contact | + +--------+ + + + + | New Request | | Radiology | Diagnoses | Cristel Galicia | | | | | | Gastric | MD Maurice [address] | | | | | | adenocarcino | [address] | | | | | | ma (HCC) | [place], | | | | | | Procedures | [place] | | | | | | [place] | [address] | | | | | | CONTRAST | Phone: | | | | | | | [phone] | | | | | | | Fax: | | | | | | | [phone] | | + +--------+ + + + + Encounter Details +--------+ + + + + | Date | Type | Department | Care Team | Description | +--------+ + + + + | 01/28/ | Ampoule Examiner | Surgical Oncology | Cristel Galicia MD | Gastric | | 2019 | | at [facility] [address] | [address] | adenocarcinoma (HCC) | | | | Ave Mail Code: | [place], [place] | (Primary Dx) | | | | [place] for [facility] | [address] | | | | | and Healing, | [phone] | | | | | Building [address] | | | | | | [place], [place] | | | | | | [address] | | | | | | [phone] | | | +--------+ + + + [...] of this encounter Plan of Treatment + +------+--------+ + + | Name | Type | Priori | Associated Diagnoses | Order Schedule | | | | ty | | | + +------+--------+ + + | COMPLETE METABOLIC | Lab | Routin | Gastric | Expected: 01/28/2019 | | SET | | e | adenocarcinoma (HCC) | (Approximate), | | (NA,K,CL,CO2,BUN,CRE | | | | Expires: 02/28/2020 | | AT,GLUC,CA,AST,ALT,B | | | | | | MONTSE TOTAL,ALK | | | | | | PHOS,ALB,PROT TOTAL) | | | | | + +------+--------+ + + | CBC, WITH | Lab | Routin | Gastric | Expected: 01/28/2019 | | DIFFERENTIAL | | e | adenocarcinoma (HCC) | (Approximate), | | | | | | Expires: 02/28/2020 | + +------+--------+ + + | INR | Lab | Routin | Gastric | Expected: 01/28/2019 | | | | e | adenocarcinoma (HCC) | (Approximate), | | | | | | Expires: 02/28/2020 | + +------+--------+ + + | PREALBUMIN | Lab | Routin | Gastric | Expected: 01/28/2019 | | | | e | adenocarcinoma (HCC) | (Approximate), | | | | | | Expires: 02/28/2020 | + +------+--------+ + + | [facility] [facility], | Lab | Routin | Gastric | Expected: 01/28/2019 | | SERUM | | e | adenocarcinoma (HCC) | (Approximate), | | | | | | Expires: 02/28/2020 | + +------+--------+ + + documented as of this encounter Results CT ABDOMEN AND PELVIS [...] | | | + +---------+ + + CT CHEST WO CONTRAST (02/02/2019 4:53 PM PDT) + + | Specimen | + + | | + + + + + | Narrative | Performed At | + + + | EXAM: CT CHEST WO CONTRAST HISTORY: Hx of gastric | [facility] | | adenocarcinoma, eval for surgical options COMPARISON: Outside CT | RADIOLOGY VOICE | | chest 12/31/2018 TECHNIQUE: Helical scanning was obtained of the | RECOGNITION 2 | | chest without intravenous contrast and reviewed in soft tissue and | | | lung algorithm. Coronal and sagittal images were also generated. | | | FINDINGS: There is no thoracic lymphadenopathy. Visualized | | | portions of the thyroid are unremarkable. Thoracic aorta and central | | | pulmonary arteries are normal in size. Heart size is normal. There is | | | no pericardial effusion. There is no pleural effusion. Right upper | | | lobe peripheral 2 mm nodule (axial 56) is unchanged. Punctate density | | | calcified nodule in the left lower lobe unchanged consistent with | | | healed granuloma. The lungs are otherwise clear. There is no | | | consolidation. Airways are clear. Osseous structures are | | | unremarkable. Please refer to separate abdominal CT report for | | | abdominal findings. IMPRESSION: Right upper lobe 2 mm nodule, | | | statistically most likely postinflammatory. However, attention on | | | follow-up. I have personally reviewed the images and, if | | | necessary, edited the report. I agree with the report as now | | | presented. Final signature: Ravindra Allison MD 02/02/2019 5:14 | | | PM Preliminary: Ravindra Allison MD Dictation initiated: Ravindra Allison MD 02/02/2019 5:11 PM | | + + + + + | Procedure Note | + + | Service Account, Radiant Res In Interface - 02/02/2019 5:15 PM PDT EXAM: CT CHEST WO | | CONTRAST HISTORY: Hx of gastric adenocarcinoma, eval for surgical options COMPARISON: | | Outside CT chest 12/31/2018 TECHNIQUE: Helical scanning was obtained of the chest without | | intravenous contrast and reviewed in soft tissue and lung algorithm. Coronal and | | sagittal images were also generated. FINDINGS: There is no thoracic lymphadenopathy. | | Visualized portions of the thyroid are unremarkable. Thoracic aorta and central | | pulmonary arteries are normal in size. Heart size is normal. There is no pericardial | | effusion. There is no pleural effusion. Right upper lobe peripheral 2 mm nodule (axial | | 56) is unchanged. Punctate density calcified nodule in the left lower lobe unchanged | | consistent with healed granuloma. The lungs are otherwise clear. There is no | | consolidation. Airways are clear. Osseous structures are unremarkable. Please refer to | | separate abdominal CT report for abdominal findings. IMPRESSION: Right upper lobe 2 mm | | nodule, statistically most likely postinflammatory. However, attention on follow-up. I | | have personally reviewed the images and, if necessary, edited the report. I agree with | | the report as now presented. Final signature: Ravindra Allison MD 02/02/2019 5:14 PM | | Preliminary: Ravindra Allison MD Dictation initiated: Ravindra Allison MD 02/02/2019 | | 5:11 PM | | | |IMPRESSION: | | | |Right upper lobe 2 mm nodule, statistically most likely postinflammatory. However, attentio n on follow-up. | | | |I have personally reviewed the images and, if necessary, edited the report. I agree with th e report as now presented. | | | |Final signature: Ravindra Allison MD 02/02/2019 5:14 PM | |Preliminary: Ravindra Allison MD | |Dictation initiated: Ravindra Allison MD 02/02/2019 5:11 PM | + + + +---------+ + [...]
--- OUTSIDE RECORDS SUMMARY | ~2019-10-14 | XMS | Encounter Summary ---
Demographics + + + | Address | [address] | | | [place] [address] | + + + | Home Phone | | + + + | Preferred Language | Unknown | + + + | Marital Status | | + + + | Nondenominational Affiliation | NRP | + + + | Race | White | + + + | Ethnic Group | Not or | + + + Author + + + | Author | [facility] | + + + | Organization | [facility] | + + + | Address | Unknown | + + + | Phone | Unavailable | + + + Support + + + + + | Name | Relationship | Address | Phone | + + + + + | Matthew Ramirez | CHRIS | [address] | | | | | [place] | | | | | [address] | | + + + + + | Nella Haque | ECON | Unknown | | + + + + + Care Team Providers + +------+ + | Care Ledge Man Name | Role | Phone | + [...] Visit | Medicine Clinic at | T, SHAKE SPLITTER-C,MPH | Preop examination; | | | | [facility] 4th Floor [address] | | Diabetes mellitus | | | | [address] | | screening; Other | | | | Mailcode: CH4S | | specified | | | | [facility] | | pre-operative | | | | and Healing, | | examination | | | | Building 1,4th Floor | | | | | | [place], [place] | | | | | | [address] | | | | | | [phone] | | | +--------+---------+ + + + [...] % (0.1 mg/g) Vaginal Cream folic acid Ygizeywisrn-Cqccewtpc-Iqu C-Mn (GLUCOSAMINE CHONDROITIN MAXSTR)- HOLD 7 days [...] OR NON-STEROIDAL ANTI-INFLAMMATORY DRUGS (NSAIDs) Advil, Aleve, Roxanne-Norfolk, Anacin, Arthopan, Ascriptin, Aspergum, Aspirin with and [...] Phenylbutazone, Piroxicam, Propoxyphene, Relafen, Robomol, Rufen, Sine-aid, [place] s cold tablets, Sulindac, Talwin, Tolectin, Triaminicin, [...] perfume, lotions or powder. Remove any nail togolese from at least one fingernail. Do not [...] Surgery Check in Locations Day Stay Unit [phone], [facility], fourth floor Room 4512 Surgery Check in Time Check-in times for Hospital Admissions are not available until the day prior to surgery. So meone from your surgeon's office or the hospital will contact you with your check in time. I f you do not hear from anyone by 3:00 PM please call your surgeons' office for [id number] . Going Home Your surgeon will decide [...] it is after office hours, call the [facility] dump truck operator at [phone] and ask them to page your doc [...] Scanned H&P. H and P entered into [employer](Chart review, Media tab). Vy Sosa RN, KAELA, MPH PREOPERATIVE MEDICINE CLINIC [address] Mail Code: [facility],4th [facility] [address] documente d in this encounter Plan of Treatment Not on filedocumented as of this encounter Procedures + +--------+ + + + | Procedure Name | Priori | Date/Time | Associated Diagnosis | Comments | | | ty | | | | + +--------+ + + + | IA COLLECTION VENOUS | Routin | 10/25/2010 | [...] POINT | [address] | [place] [address] | | | OF CARE TESTS | [...] | | | DEPARTMENT | | | [place] | | | OF | | | [...] | + + + + + | [facility] | [address] | [place] [address] | | | PATHOLOGY | [address] [...] + | [facility] DEPARTMENT OF | [address] [facility] | [place] [address] | | | PATHOLOGY | [address] [...] | + + + + + | [facility] | [address] | [place] [address] | | | PATHOLOGY | [address] [...]
--- OUTSIDE RECORDS SUMMARY | ~2019-10-14 | XMS | Encounter Summary ---
Demographics + + + | Address | [address] | | | [place] [address] | + + + | Home Phone [...] Author | [facility] | | | and Nenoana | + + + | Organization | [facility] | | [...] + | Matthew Ramirez | ECON | [address] | | | | | [place] | | | | | [address] | | + + + + + Care Team Providers + +------+ + | Care Habitat Conservation Planner Name | Role | Phone | + [...] | | | [place], [place] | [place] [address] | | | | | [address] | [phone] | | | | | [phone] | | | +--------+---------+ + + + [...] Care Everywhere.Foot Surgery: Maurice pace Fifth Toe (Kenyan)Foot Surgery: Flexible and Rigid Hammertoes (Kenyan)Mallet, Hammer , and Claw Toes, Treating (Kenyan)Mallet, Hammer, and Claw Toes, What Are (Kenyan)document ed in this encounter Medications at Time [...]
--- OUTSIDE RECORDS SUMMARY | ~2019-10-14 | XMS | Encounter Summary ---
Demographics + + + | Address | [address] | | | [place] [address] | + + + | Home Phone [...] + + + | Author | [facility] | + + + | Organization | [facility] | + + + | Address | Unknown | + + + | Phone | Unavailable | + + + Support + + + + + | Name | Relationship | Address | Phone | + + + + + | Matthew Ramirez | CHRIS | [address] | | | | | [place] | | | | | [address] | | + + + + + | Nella Haque | ECON | Unknown | | + + + + + Care Team Providers + +------+ + | Care Infrastructure Analyst Name | Role | Phone | [...] | | | | | | ma ([facility]) | [place], | | | | | | Procedures | [place] | | | | | | [place] | [address] | | | | | | CONTRAST | Phone: | | | | | | | [phone] | | | | | | | Fax: | | | | | | | [phone] | | + +--------+ + + + [...] | | | | ma (HCC) | [place], | | | | | | Procedures | [place] | | | | | | [place] | [address] | | | | | | CONTRAST | Phone: | | | | | | | [phone] | | | | | | | Fax: | | | | | | | [phone] | | + +--------+ + + + + Encounter Details +--------+ + + + + | Date | Type | Department | Care Team | Description | +--------+ + + + + | 02/02/ | Hospital | Radiology/Imaging | Cristel Galicia MD | | | 2019 | Encounter | Lab at [facility] [address] | [address] | | | | | [address] Mailcode: | [place], [place] | | | | | [address] | [address] | | | | | Health and Healing, | [phone] | | | | | [address] | | | | | | Floor [place], [place] | | | | | | [address] | | | | | | [phone] | | | +--------+ + + + [...] nostril | | | | | | Warren | once daily. | | | | | + + + +---------+--------+ + documented as of this encounter Plan of Treatment Not on filedocumented as of this encounter Procedures + +--------+ + + + | Procedure Name | Priori | Date/Time | Associated Diagnosis | Comments | | | ty | | | | + +--------+ + + + | CT CHEST WO CONTRAST | Urgent | 02/02/2019 | Gastric | Results for this | | | | 4:53 PM | adenocarcinoma (HCC) | procedure are in the | | | | PDT | | results section. | + +--------+ + + + documented in this encounter Results CT CHEST WO CONTRAST (02/02/2019 4:53 PM [...]
--- OUTSIDE RECORDS SUMMARY | ~2019-10-14 | XMS | Encounter Summary ---
Demographics + + + | Address | [address] | | | [place] [address] | + + + | Home Phone | | + + + | Preferred Language | Unknown | + + + | Marital Status | | + + + | Moravian Affiliation | Unknown | + + + | Race | Unknown | + + + | Ethnic Group | Unknown | + + + Author + + + | Author | [facility] | | | and Nenoana | + + + | Organization | [facility] | | | and Nenoana | [...] + | Matthew Ramirez | CHRIS | [address] | | | | | [place] | | | | | [address] | | + + + + + Care Team Providers + +------+ + | Care Wildlife And Game Protector Name | Role | Phone | + +------+ + PCP | Unavailable | + +------+ + Encounter Details +--------+ + + + + | Date | Type | Department | Care Team | Description | +--------+ + + + + | 06/27/ | Hospital | [facility] | | | | 2003 | Encounter | MED CTR XRAY [address] | | | | | | [address] | | | | | | [place] [address] | | | | | | [phone] | | | +--------+ + + + [...]
--- OUTSIDE RECORDS SUMMARY | ~2019-10-14 | XMS | Encounter Summary ---
Demographics + + + | Address | [address] | | | [place] [address] | + + + | Home Phone [...] | Author | [facility] | | | and Nenoana | + + + | Organization | [facility] | | [...] + | Matthew Ramirez | ECON | [address] | | | | | [place] | | | | | [address] | | + + + + + Care Team Providers + +------+ + | Care Plant Sprayer Name | Role | Phone | + [...] + + | 12/24/ | Telephone | [facility] | Matthew Shukla MD | Results | | 2019 | | GASTROENTEROLOGY | [address] [facility] | | | | | [address] [facility] | [place], [place] | | | | | [address] [place], [place] | [address] | | | | | [address] | [phone] | | | | | [phone] | | | +--------+ + + + [...]
--- OUTSIDE RECORDS SUMMARY | ~2019-10-14 | XMS | Encounter Summary ---
Demographics + + + | Address | [address] | | | [place] [address] | + + + | Home Phone | | + + + | Preferred Language | Unknown | + + + | Marital Status | | + + + | Presybeterian Affiliation | Unknown | + + + | Race | Unknown | + + + | Ethnic Group | Unknown | + + + Author + + + | Author | [facility] | | | and Nenoana | + + + | Organization | [facility] | | | and [...] + | Matthew Ramirez | ECON | [address] | | | | | [place] | | | | | [address] | | + + + + + Care Team Providers + +------+ + | Care Printing Press Machine Operator Name | Role | Phone [...] + + | 12/24/ | Telephone | [facility] | Matthew hSukla MD | Results | | 2019 | | GASTROENTEROLOGY | [address] [facility] | | | | | [address] [facility] | [place], [place] | | | | | [address] [place], [place] | [address] | | | | | [address] | [phone] | | | | | [phone] | | | +--------+ + + + [...]
--- OUTSIDE RECORDS SUMMARY | ~2019-10-14 | XMS | Encounter Summary ---
Demographics + + + | Address | [address] | | | [place] [address] | + + + | Home Phone | | + + + | Preferred Language | Unknown | + + + | Marital Status | | + + + | Jew Affiliation | NRP | + + + | Race | White | + + + | Ethnic Group | Not or | + + + Author + + + | Author | [facility] | + + + | Organization | [facility] | + + + | Address | Unknown | + + + | Phone | Unavailable | + + + Support + + + + + | Name | Relationship | Address | Phone | + + + + + | Matthew Ramirez | CHRIS | [address] | | | | | [place] | | | | | [address] | | + + + + + | Nella Haque | ECON | Unknown | | + + + + + Care Team Providers + +------+ + | Care Head Char Filter Tank Tender Name | Role | Phone | [...] | | | Tumor | MD [address] | | | | | | Gastric | [address] | | | | | | adenocarcino | [place], | | | | | | ma (HCC) | [place] | | | | | | Procedures | [address] | | | | | | PET CT SKULL | Phone: | | | | | | BASE TO | [phone] | | | | | | MID-THIGHS | Fax: | | | | | | | [phone] | | +--------+--------+ + + + + [...] | Oncology | | Beverley Antony MD [address] | | | | | | Luis Richards, | [address] | | | | | | [address] | [place], [place] | | | | | | [address] | [address] | | | | | | [place], | Phone: | | | | | | [place] [address] | [phone] | | | | | | Phone: | Fax: | | | | | | [phone] | [phone] | | | | | | Fax: | | | | | | | [phone] | | +--------+--------+ + + + + Encounter Details +--------+---------+ + + + | Date | Type | Department | Care Team | Description | +--------+---------+ + + + | 02/03/ | Office | Surgical Oncology | Cristel Galicia MD | Gastric | | 2019 | Visit | at [facility] [address] | [address] | adenocarcinoma (HCC) | | | | Ave Mail Code: | [place], [place] | (Primary Dx); Tumor | | | | [place] for [facility] | [address] | | | | | and Healing, | [phone] | | | | | Building 2 | | | | | | [place], [place] | | | | | | [address] | | | | | | [phone] | | | +--------+---------+ + + + [...] obtain PET scan at local facility in [place]. Please contact Nelli Vaca, Nurse Coordinator for Dr. Cristel Galicia, with any questions at [phone]. We encourage all of our patients to sign up and use Moxie [employer] for communication . Please note: I am out of the office on Mondays and unable to monitor voicemail or email. If you need to get ahold of someone urgently, please call [phone]. documented in this encounter Progress Notes Cristel Galicia MD - 02/03/2019 9:00 AM PDTATTENDING PHYSICIAN STATEMENT AND SUMMARY This note has been dictated using [employer] voice recognition software. I saw Ashly Ramirez [...] will byrnes ve her set up in [facility], I will discuss her case when these results are avai lable in our multidisciplinary GI tumor board, and then contact the patient and a local [facility] oncologist with any treatment recommendations. RECOMMENDATIONS 1. PET CT scan to be ordered and performed in [facility]. 2. We will discuss her case [...] o their satisfaction. Cristel Galicia MD, MPH farm loan inspector Division of Surgical Oncology [facility] [place], [place] Desmond Frank MD - 9:00 AM PDT 02/03/2019 Surgical Oncology Clinic New Patient Consultation--Gastric Cancer Referring Physician: Dr. Luis Antony Reason for consultation: Newly diagnosed gastric adenocarcinoma (This note is structured to facilitate communication among oncology providers) PLAN TODAY: 1. Return to clinic after discussion at tumor board. 2. Return to [facility] for EGD with biopsies for disease surveillance 3. Will need a PET/CT scan 4. Will present case and discuss in upcoming Multi-Disciplinary Tumor board and contact pat ient with recommendations. 5. Solid tumor Gene Trails 6. Follow up [facility] path review of outside records ONCOLOGIC [...] gastric adeno carcinoma. She subsequently went to [place] and underwent and EUS with Dr. Stevenson [...] and hematochezia. 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 Currently, she is functionally good allowing [...] Ramirez case will be discussed at the [facility] Multidisciplinary Gastrointestinal Cancer Conference which includes [...] individualized evelia tment. Desmond Voss MD R1 [facility] General Surgery documented in this enc [...] | [facility] | | | TESTED | [id number] E1 labeled as | | DIAGNOSTIC | [...] | | | | | | is commercial representative of | | | | | | this tumor, we would | | | | | | welcome the opportunity | | | | | | to examine it. | | | | + + + + + + | DISCLAIMER | This test was developed | | [facility] | | | | and its performance | | DIAGNOSTIC | | | | characteristics | | | | | | determined by the [facility] | | LABORATORIE | | | | [facility] | | S | | [...] | | | | | (CLIA). The [facility] | | | | | | Diagnostics | | | | | | Laboratories are fully | | | | | | licensed by the state of | | | | | | [place] under CLIA and | | | | | | are accredited by the | | | | | | [employer] | | | | | | Pathologists (CAP). | | | | | | Lockstitch Front Maker: | | | | | | [...] + + + | [facility] | [address] | [place] [address] | | | DIAGNOSTIC | [address] [...]
--- OUTSIDE RECORDS SUMMARY | ~2019-10-14 | XMS | Encounter Summary ---
Demographics + + + | Address | [address] | | | [place] [address] | + + + | Home Phone | | + + + | Preferred Language | Unknown | + + + | Marital Status | | + + + | Spiritism Affiliation | Unknown | + + + | Race | Unknown | + + + | Ethnic Group | Unknown | + + + Author + + + | Author | [facility] | | | and Nenoana | + + + | Organization | [facility] | | | and [...] + | Matthew Ramirez | CHRIS | [address] | | | | | [place] | | | | | [address] | | + + + + + Care Team Providers + +------+ + | Care Skewer Up Name | Role | Phone | + [...] | SR | | | | | [address] | | | | | | [place], [place] | | | | | | [address] | | | | | | [phone] | | | +--------+ + + + [...]
--- OUTSIDE RECORDS SUMMARY | ~2019-10-14 | XMS | Encounter Summary ---
Demographics + + + | Address | [address] | | | [place] [address] | + + + | Home Phone [...] + | Matthew Ramirez | CHRIS | [address] | | | | | [place] | | | | | [address] | | + + + + + | Nella Haque | ECON | Unknown | | + + + + + Care Team Providers + +------+ + | Care Chick Grader Name | Role | Phone | + [...] | | | | CONSULT TO | EOLIA, | and [facility] | | | | | HEMATOLOGY / | [place] | [address] | | | | | ONCOLOGY | [address] | Ave | | | | | PRACTICE | Phone: | [place], [place] | | | | | | [phone] | [address] | | | | | | Fax: | Phone: | | | | | | [phone] | [phone] | | | | | | | Fax: | | | | | | | [phone] | + +---------+ + + + + Encounter Details +--------+---------+ + + + | Date | Type | Department | Care Team | Description | +--------+---------+ + + + | 03/18/ | Office | [facility] | Rodriguez Bower MD | Breast cancer | | 2019 | Visit | Clinics at S | [address] | metastasized to | | | | [facility] | [facility] [place] | multiple sites, | | | | for Health and | [address] | unspecified | | | | Healing [address] | [phone] | laterality (HCC) | | | | Ave [place], [place] | | (Primary Dx) | | | | [address] | | | | | | [phone] | | | +--------+---------+ + + + [...] diverticular disease s/p sigmoid brandon ctomy (2002), TEODORA for cervical cancer (1973), who recently underwent [...] due to this pain. She lives in [place] with her , whom she cares for [...] adenocarcinoma -saw Dr. Antony of oncology at [facility], discussed getting EUS for further evaluati on [...] 300 mg by mouth three times daily. Ajrqwzbjuqe-Dqjkzgpua-Pxe C-Mn (GLUCOSAMINE CHONDROITIN MAXSTR) 500-400 mg Oral [...] the evening. triamcinolone 55 mcg Nasal Aerosol, [place], Instill 2 Sprays into each nostril once [...] file Gets together: Not on file Attends scientology service: Not on file Active member of club or organization: Not on file Attends meetings of clubs or organizations: Not on file Relationship status: Not on file Other Topics Concern Not on file Social History Narrative Lives with partner in [facility]- 34yrs. Son in [place]. 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 [facility]. Family History Problem Relation Cancer [...] Diagnosis 1. Multiple specimens A to F (-[id number]; 01/13/19): A. Stomach, antrum at great curvature, [...] Pathology Resident Bonifacio Resendez MD Pathologist Pathology, [facility] My electronic signature indicates that I have [...] Ramona Taylor MD Hematology/Oncology Fellow PGY-5 Pager [phone] Associated attestation - Rodriguez Bower MD - [...] 6 months. She will follow with oncology local y, we will contact their office Rodriguez Bower MD, MS ID#[id number] Barrel Racerautomatic line set up mechanic Division of Hematology and Medical Oncology [facility] Pager#[phone] documented in this encounter Plan of Treatment Not on filedocumented as of this encounter Visit Diagnoses + + | Diagnosis | + + | Breast cancer metastasized to multiple sites, unspecified laterality (HCC) - Primary | + + documented in this encounter"
--- OUTSIDE RECORDS SUMMARY | ~2019-10-14 | XMS | Encounter Summary ---
Demographics + + + | Address | [address] | | | [place] [address] | + + + | Home Phone | | + + + | Preferred Language | Unknown | + + + | Marital Status | | + + + | Quaker Affiliation | NRP | + + + [...] + | Matthew Ramirez | CHRIS | [address] | | | | | [place] | | | | | [address] | | + + + + + | Nella Haque | ECON | Unknown | | + + + + + Care Team Providers + +------+ + | Care Principal Cyber Engineer Name | Role | Phone | [...] [address] | (Constipation) | | | | [facility] | [place], [place] | | | | | for Health and | [address] | | | | | Healing [address] | [phone] | | | | | [place], [place] | | | | | | [address] | | | | | | [phone] | | | +--------+ + + + [...]
--- OUTSIDE RECORDS SUMMARY | ~2019-10-14 | XMS | Encounter Summary ---
Demographics + + + | Address | [address] | | | [place] [address] | + + + | Home Phone [...] + + + | Author | [facility] | + + + | Organization | [facility] | + + + | Address | Unknown | + + + | Phone | Unavailable | + + + Support + + + + + | Name | Relationship | Address | Phone | + + + + + | Matthew Ramirez | CHRIS | [address] | | | | | [place] | | | | | [address] | | + + + + + | Nella Haque | ECON | Unknown | | + + + + + Care Team Providers + +------+ + | Care Flying I Instructor Name | Role | Phone | [...] 2019 | | Clinics at | [address] [facility] | (tamoxifen) | | | | [facility] | [facility], | | | | | [facility] and | [place] [address] | | | | | Healing [address] | | | | | | [place], [place] | | | | | | [address] | | | | | | [phone] | | | +--------+ + + + [...]
--- OUTSIDE RECORDS SUMMARY | ~2019-10-14 | XMS | Encounter Summary ---
Demographics + + + | Address | [address] | | | [place] [address] | + + + | Home Phone | | + + + | Preferred Language | Unknown | + + + | Marital Status | | + + + | Church Affiliation | Unknown | + + + | Race | Unknown | + + + | Ethnic Group | Unknown | + + + Author + + + | Author | [facility] | | | and Nenoana | + + + | Organization | [facility] | | | [...] + | Matthew Ramirez | ECON | [address] | | | | | [place] | | | | | [address] | | + + + + + Care Team Providers + +------+ + | Care Training Assistant Name | Role | Phone | [...] | | Procedures | [address] | [place] [address] | | | | | office visit | [place] | Phone: | | | | | | [place] [address] | [phone] | | | | | | Phone: | Fax: | | | | | | [phone] | [phone] | | | | | | Fax: | | | | | | | [phone] | | +--------+--------+ + + + + Encounter Details +--------+---------+ + + + | Date | Type | Department | Care Team | Description | +--------+---------+ + + + | 12/14/ | Office | [facility] | Matthew Shukla MD | Chronic abdominal | | 2019 | Visit | GASTROENTEROLOGY | [address] | pain (Primary Dx); | | | | [address] [facility] | [place], [place] | Diarrhea, | | | | [address] [place], [place] | [address] | unspecified type; | | | | [address] | [phone] | Rectal bleeding; | | | | [phone] | | Benzodiazepine | | | | [...] 0700 on 12/17, finishing by 0830; 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 Encouraged [...]
--- OUTSIDE RECORDS SUMMARY | ~2019-10-14 | XMS | Encounter Summary ---
Demographics + + + | Address | [address] | | | [place] [address] | + + + | Home Phone [...] Author | [facility] | | | and Nenoana | + + + | Organization | [facility] | [...] + | Matthew Ramirez | ECON | [address] | | | | | [place] | | | | | [address] | | + + + + + Care Team Providers + +------+ + | Care Cleaner And Trimmer Name | Role | Phone | + [...] | | cancer | Luis Richards, | [place] | | | | | metastasized | MD [address] | [place], [place] | | | | | to multiple | [address] | [address] | | | | | sites, left | [place], | Phone: | | | | | (HCC) | [place] [address] | [phone] | | | | | Procedures | Phone: | Fax: | | | | | PET CT Skull | [phone] | [phone] | | | | | Base To Mid | Fax: | | | | | | Thigh | [phone] | | +--------+--------+ + + + + [...] POTTER | | | | | [address] [place] | [place] [address] | | | | | [place] [address] | [phone] | | | | | [phone] | | | +--------+ + + + [...] malignancy.Dictated and Signed | | by: Raul Golbderg MD Electronically signed: 07/23/2019 4:22 PM | [...]
--- OUTSIDE RECORDS SUMMARY | ~2019-10-14 | XMS | Encounter Summary ---
Demographics + + + | Address | [address] | | | [place] [address] | + + + | Home Phone [...] + | Matthew Ramirez | CHRIS | [address] | | | | | [place] | | | | | [address] | | + + + + + | Nella Haque | ECON | Unknown | | + + + + + Care Team Providers + +------+ + | Care Zigzag Elastic Attacher Name | Role | Phone | + [...] (TRAMADOL 50 mg) | | | | [facility] | [place], [place] | | | | | for Health and | [address] | | | | | Healing [address] | [phone] | | | | | [place], [place] | | | | | | [address] | | | | | | [phone] | | | +--------+--------+ + + + [...]
--- OUTSIDE RECORDS SUMMARY | ~2019-10-14 | XMS | Encounter Summary ---
Demographics + + + | Address | [address] | | | [place] [address] | + + + | Home Phone [...] | Author | [facility] | | | and Nenoana | + + + | Organization | [facility] | | | and [...] + | Matthew Ramirez | ECON | [address] | | | | | [place] | | | | | [address] | | + + + + + Care Team Providers + +------+ + | Care Technology Specialist Name | Role | Phone | [...] | | | unspecified | | [place] [address] | | | | | type | | Phone: | | | | | Chronic | | [phone] | | | | | abdominal | | Fax: | | | | | pain | | [phone] | | | | | Benzodiazepi | [...] + + | 12/17/ | [facility] | Matthew Shukla MD | EGD | | 2019 | | MED CTR MP INTRA OP | [address] | | | | | [address] | [place] | | | | | [place] | [address] | | | | | [address] | [phone] | | | | | [phone] | | | +--------+---------+ + + + [...] | | | | | episodic use ([facility]) | | | | | | [...] 12/17/2018 | [facility] | | 3:06 PMMRN: [id number] #: [id number] of : | | | 1940dmit Type: [...] | | | the anesthesiologist and the lawn technician in the pre-procedure | | | [...] PMScope Out: 3:26:19 | | | PM [facility], [address] [facility] | | | [place] [address] | | | - Await pathology results. [...] |Scope Out: 3:26:19 PM | | | [facility], [address] [place], [place] | | | [address] | | + + -+ + +---------+ + + | Performing | Address | City/State/Un[facility] Cancer Centercode | Phone Number | | Organization | [...] 12/17/2018 | [place] | | 3:04 PMMRN: [id number] #: [id number] of : | | | 1940dmit Type: AmbulatoryAge: 78Room: Endo Room 2Gender: | | | FemaleNote Status: FinalizedAttending MD: Matthew Shukla , | | | MDProcedure: ColonoscopyIndications: Abdominal | | | pain in the left upper quadrant, Hematochezia, | | | Chronic diarrhea, Weight lossProviders: Matthew Rosales | | | MD Gayla, Rina Edouard RN, Conrado Kang [facility], | | | Devon Murdock MD [...] the anesthesiologist and the | | | lawn technician in the pre-procedure area in the [...] | | | evaluated using the BBPS (Josephine Bowel Preparation Scale) with | | | [...] PMScope Out: | | | 3:55:04 PM [facility], [address] [place] [address], | | | [place] [address] | | | - Await pathology results. [...] |Scope Out: 3:55:04 PM | | | [facility], [address] [facility], [place], [place] | | | [address] | | + + -+ + +---------+ [...] | COMMENT: A -- As part of [facility]' Quality Improvement | | | Program, this portion of the case has been reviewed by another member | | | of our pathology staff with subspecialty training in gastrointestinal | | | pathology. Results called to Dr. Shukla office [facility]) 12/24/18 | | | 10:15 AM. Discussed [...] | and its performance characteristics determined by [facility]. | | | It has not been cleared or approved by the U.S. Food and Drug | | | Administration. The FDA has determined that such clearance or | | | approval is not necessary. This test is used for clinical purposes. | | | It should not be regarded as investigational or for research. | | | [facility] is certified under the Clinical Laboratory | | | Improvement Amendments of 1988 (CLIA) as qualified to perform high | | | complexity clinical laboratory testing. PERFORMING LABORATORY: | | | The technical component was performed by [facility], [address] | | | [place] [address] (Food Service Helper: Marilyn Dowell MD; | | | CLIA# [id number]). Professional interpretation was performed by | | | [facility], [facility], [address] [place] [address]. | | | [address] [place] [address] (Food Service Helper: Guevara Ernandez | | | ; CLIA# [id number]). ADDITIONAL NOTES: Immunohistochemical | | | and/or in situ hybridization studies were performed on this case with | | | the appropriate positive controls that react as expected. This test | | | was developed and its performance characteristics determined by | | | [facility]. It has not been cleared or approved by the U.S. | | | Food and Drug Administration. The FDA has determined that such | | | clearance or approval is not necessary. This test is used for | | | clinical purposes. It should not be regarded as investigational or | | | for research. [facility] is certified under the Clinical | | | Laboratory Improvement Amendments of 1988 (CLIA) as qualified to | | | perform high complexity clinical laboratory testing. PERFORMING | | | LABORATORY: The technical component was performed by [facility] | | [facility], [address] [place] [address] (Food Service Helper: | | | Marilyn Dowell MD; CLIA# [id number]). Professional interpretation was | | | performed by [facility], [address] [place] | | | [place] [address] (Food Service Helper: Darien Kapoor D.O.; CLIA#: | | | [id number]). REASON FOR ADDENDUM: To add results of [...] the FDA-approved HER-2 Pathway is performed at [facility] | | | [place], [place], on accession #[id number] from at the [...] the Vysis PathVysion kit was performed at [facility] | | | [place], [place]. The assay has not been validated [...] interpretation was | | | performed by [facility], [address] [facility] | | | [place] [address] (Food Service Helper: Darien Kapoor D.O.; CLIA#: | | | [id number]). Diagnostician: Guevara Ernandez MD Pathologist | | [...] [place] PATHOLOGY | | | | | [facility] | | | | + +---------+ + [...] ONCE PRN, | | | Wheezing, Starting [facility] 12/17/18 at | | | 1346, For 1 dose, Pre-op | | + +---+ | | | + +---+ | albuterol-ipratropium 2.5-0.5 | | | mg/3 mL nebulizer solution 3 mL | | | 3 mL, Nebulization, ONCE PRN, | | | Wheezing, Shortness of Breath, | | | Starting [facility] 12/17/18 at 1615, For | | [...]
--- OUTSIDE RECORDS SUMMARY | ~2019-10-14 | XMS | Encounter Summary ---
Demographics + + + | Address | [address] | | | [place] [address] | + + + | Home Phone [...] Author | [facility] | | | and Nenoana | + + + | Organization | [facility] | | | and [...] + | Matthew Ramirez | ECON | [address] | | | | | [place] | | | | | [address] | | + + + + + Care Team Providers + +------+ + | Care Concrete Mixing Truck Driver Name | Role | Phone | + [...] | | | | [K31.9] | | [address] Phone: | | | | | Procedures | | [phone] | | | | | [place] | | Fax: | | | | | ESOPHAGOGAST | | [phone] | | | | | RODUODENOSCO | | | | | | | PY TRANSORAL | | | | | | | DIAGNOSTIC | | | | | | | OR EDG US | | | | | [...] + + | 01/13/ | Hospital | [facility] | Sukumar Stevenson MD | 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 | Encounter | HEART MED CTR MP | [address] [place] | of overlapping sites | | | | INTRA OP [address] | [address] [place] | of stomach (HCC) | | | | [address] [place] | [address] | | | | | [address] | | | | | | [phone] | | | +--------+ + + + [...] | | | LABORATORY | | Acct: [id number] Location: | [facility] | | [facility]; [facility] MEDICAL PROCEDURE UNIT POOL; [facility] | | | MEDICAL PROCEDURE UNIT POOL | | | Case #: [id number] Ordering: | | | SUKUMAR STEVENSON MD Client: [facility] | | | [facility] Copy To: | | | Printed: 01/20/2019 09:40 PDT | | | SURGICAL PATHOLOGY FINAL REPORTCollected: | | | Received: | | | Responsible Pathologist:01/13/2019 12:45 PDT | | | 01/13/2019 13:25 PDT [facility] | | | DIAGNOSIS:A. Gastric antrum at [...] fragments. | | | Mild inactive chronic gastritis.[facility]/SK 01/14/19 01:36 pmVerified | | | by: ANNABELLE FULLER MDVerify Date: 01/20/2019 09:40 [facility] | | | [facility] [address] | | | SURGICAL PATHOLOGY FINAL REPORTCollected: [...] stain appropriately.As a part of our quality assurance nurse | | | policy, this case has [...] developed and their performance characteristics determined by [facility]. This test is used for clinical | | | purposes. It should not be regarded as investigational or for | | | research. [facility] is certified under the Clinical | | | Laboratory Improvement Amendments of 1988 (CLIA) as qualified to | | | perform high complexity clinical laboratory testing. | | + + + + + + + + | Performing | Address | City/State/Zipcode | Phone Number | | Organization | | | | + + + + + | [facility] | [address] | [place] [address] | | | [facility] | | | | | LABORATORY EZE | | | | + + + + + EUS Upper (01/13/2019 11:39 AM PDT) + + | Specimen | + + | | + + + + + | Narrative | Performed At | + + + | [facility] | [place] | | [facility] | [place] | | CenterGI | | | Patient Name: Ashly Ramirez Procedure | | | Date: 01/13/2019 11:39 AMMRN: [id number] | | | of : 1940 | [...] AMNumber | | | of Addenda: 0 [facility] - | | | Endoscopy Services | | | | | |SUKUMAR STEVENSON MD | | |01/13/2019 1:07:25 PM | | |This report has been signed electronically. | | | | | |Note Initiated On: 01/13/2019 11:39 AM | | |Number of Addenda: 0 | | | | | | [facility] Endoscopy Services | | + + [...] | TRACEMASTER | | Duration:172 msP Horizontal Monson:28 degP Front Monson:60 degQ Onset:512 | | | msQRSD Interval:136 msQT Interval:448 msQTcB:477 msQTcF:467 msQRS | | | Horizontal Monson:150 degQRS Monson:-35 degI-40 Horizontal Monson:34 degI-40 | | | Front Monson:74 degT-40 Horizontal Monson:151 degT-40 Front Monson:-77 degT | | | Horizontal Monson:8 degT Wave Monson:51 degS-T Horizontal Monson:21 degS-T | | | Front Monson:83 degSeverity:- ABNORMAL ECG -INTERP:SINUS | | | RHYTHMINTERP:VENTRICULAR PREMATURE COMPLEXINTERP:RBBB AND | | | LAFBINTERP:LEFT VENTRICULAR HYPERTROPHYElectronically signed by: | | | ANDREAS MAXWELL 01-18-2019 07:24:33 | | |QTcF:467 ms | | |QRS Horizontal Monson:150 deg | | |QRS Monson:-35 deg | | |I-40 Horizontal Monson:34 deg | | |I-40 Front Monson:74 deg | | |T-40 Horizontal Monson:151 deg | | |T-40 Front Monson:-77 deg | | |T Horizontal Monson:8 deg | | |T Wave Monson:51 deg | | |S-T Horizontal Monson:21 deg | | |S-T Front Monson:83 deg | | |Severity:- ABNORMAL ECG - [...] + + + + + | [facility] | [address] | [place] [address] | [phone] | + + + + + POC Glucose (01/13/2019 10:06 AM PDT) + + + + + + | Component | Value | Ref Range | Performed | Pathologist | | | | | At | Signature | + + + + + + | Glucose, | 111 (H)Comment: | 65 - 99 mg/dL | [facility] | | | POC | Performed by [facility] [address] | | [address] | | | | [address] [place] | | HEART | | | | [address] | | MEDICAL | | | | [...] + + | [facility] | [address] | [place] [address] | | | [facility] | | | | | LABORATORY [...] scheduled: AC, NPO, Daytime | | | 6999-8042 Use NIGHT DOSE for | | | doses scheduled: HS, 3AM, | | | Nighttime 9011-0766 If the BG is | | | [...]
--- OUTSIDE RECORDS SUMMARY | ~2019-10-14 | XMS | Encounter Summary ---
Demographics + + + | Address | [address] | | | [place] [address] | + + + | Home Phone | | + + + | Preferred Language | Unknown | + + + | Marital Status | | + + + | Hindu Affiliation | Unknown | + + + | Race | Unknown | + + + | Ethnic Group | Unknown | + + + Author + + + | Author | [facility] | | | and Nenoana | + + + | Organization | [facility] | | | and Nenoana [...] + | Matthew Ramirez | ECON | [address] | | | | | [place] | | | | | [address] | | + + + + + Care Team Providers + +------+ + | Care Computer Operations Technician Name | Role | Phone | [...] | | | | | | | ID REPAIR | | | | | | [...] Description | +--------+---------+ + + + | 07/04/ | Surgery | [facility] | Jose Randall | CORRECTION | | 2018 | | [facility] OP | JACKIE Sanon [address] | MARSHA 2, 3, 4 | | | | [address] [place] | [facility] | | | | | [place], [place] | [place] [address] | | | | | [address] | [phone] | | | | | [phone] | | | +--------+---------+ + + + [...] + + + | Blood Pressure | 145/80 | 07/04/2017 11:00 AM | | | | | PST | | + + + + + | Pulse | 73 | 07/04/2017 11:00 AM | | | | | PST | | + + + + + | Temperature | 36.2 C (97.2 F) | 07/04/2017 8:37 AM | | | | | PST | | + + + + + | Respiratory Rate | 16 | 07/04/2017 11:00 AM | | | | | PST | | + + + + + | Oxygen Saturation | 91% | 07/04/2017 11:00 AM | | | | | PST | [...] + + +---------+ + + | Black Liliam 160 | Take 160 mg by mouth [...] + + +---------+ + + | gabapentin | Take by mouth | | 0 | | | | (NEURONTIN) 100 mg | Daily. | | | | 8 | | capsule | | | | [...] FOOT LEFT 2 VW | Routin | 07/04/2017 | | Results for this | | | e | 10:01 AM | | procedure are in the | | | | PST | | results section. | + +--------+ + + + | CORRECTION VARSHAE | | 07/04/2017 | | | | | | 9:11 AM | | | | | | PST | | | + +--------+ + + + documented in this encounter Results XR Foot Left 2 Vw (07/04/2017 10:01 AM PST) + + | Specimen | + + | | + + + + + | Impressions | Performed At | + + + | IMPRESSION: Fluoroscopic assistance is provided during surgery. | [facility] | | Dictated by: Jsaon Burns | | + + + + + + | Narrative | Performed At | + + + | EXAMINATION: XR FOOT LEFT 2 VW HISTORY: Surgery COMPARISON | [facility] | | STUDY: None FINDINGS: Pin devices are present at the 2nd, 3rd, | | | and 4th toes. At the 2nd toe the pin device projects over the | | | phalanges and distal 3rd of the metatarsal. On the 3rd and 4th toes | | | the pin device projects over the phalanges. | | + + + + + | Procedure Note | + + | [place], Rad Results In - 07/04/2017 10:21 AM PST EXAMINATION:XR FOOT LEFT 2 | | VWHISTORY:SurgeryCOMPARISON STUDY:NoneFINDINGS:Pin devices are present at the 2nd, 3rd, | | and 4th toes. At the 2nd toe the pin device projects over the phalanges and distal 3rd | | of the metatarsal. On the 3rd and 4th toes the pin device projects over the | | phalanges.IMPRESSION: IMPRESSION:Fluoroscopic assistance is provided during | | surgery.Dictated by: Jason Burns | | 10:17 AM | |None | | | |FINDINGS: | |Pin devices are present at the 2nd, 3rd, and 4th toes. At the 2nd toe the pin device proje cts over the phalanges and distal 3rd of the metatarsal. On the 3rd and 4th toes the pin de vice projects over the phalanges. | | | |IMPRESSION: | |IMPRESSION: | |Fluoroscopic assistance is provided during surgery. | | | |Dictated [...] | bupivacaine (PF) (MARCAINE) | Given | 07/04/19 | 10 mLs | | Surgical | | 0.5% injection PRN, Starting Fri | | 18 10:15 | | | Site | | 07/04/17 at 1015, Intra-op | | AM PST | | | | + +--------+ +--------+------+ + +---+---+ | | | +---+---+ + +---------+ +--------+-------+---+ | lactated ringers (LR) infusion | New Bag | 07/04/19 | 1,000 | 100 | | | at 10-100 mL/hr, Intravenous, | | 18 8:56 | mLs | mL/hr | | | CONTINUOUS, Starting Fri07/04/17 | | AM PST | | | | | at 0915, TKO, Pre-op | | | | | | + +---------+ +--------+-------+---+ +---+---+ | | | +---+---+ + +-------+ +--------+---+ + | lidocaine (PF) 1% injection | Given | 07/04/19 | 20 mLs | | Surgical | | PRN, Starting Fri07/04/17 at | | 18 9:52 | | | Site | | 0952, Intra-op | | AM PST | | | | + +-------+ +--------+---+ + +---+---+ | | | +---+---+ documented in this encounter"
--- OUTSIDE RECORDS SUMMARY | ~2019-10-14 | XMS | Encounter Summary ---
Demographics + + + | Address | [address] | | | [place] [address] | + + + | Home Phone | | + + + | Preferred Language | Unknown | + + + | Marital Status | | + + + | Jewish Affiliation | Unknown | + + + | Race | Unknown | + + + | Ethnic Group | Unknown | + + + Author + + + | Author | [facility] | | | and Nenoana | + + + | Organization | [facility] | | | and [...] + | Matthew Ramirez | ECON | [address] | | | | | [place] | | | | | [address] | | + + + + + Care Team Providers + +------+ + | Care Application Trainer Name | Role | Phone | + [...] | findings on | Luis Richards, | [facility] | | | | | diagnostic | MD [address] | | | | | imaging of | [address] | | | | | liver and | [place], | [place], [place] | | | | | biliary | [place] [address] | [address] | | | | | tract | Phone: | Phone: | | | | | Metastatic | [phone] | [phone] | | | | | breast | Fax: | | | | | | cancer (HCC) | [phone] | | | | | | Procedures [...] | | | ONCOLOGY CLINIC [address] | [facility] | | | | | [facility] | [place] [address] | | | | | [place] [address] | [phone] | | | | | [phone] | | | +--------+ + + + [...]
--- OUTSIDE RECORDS SUMMARY | ~2019-10-14 | XMS | Encounter Summary ---
Demographics + + + | Address | [address] | | | [place] [address] | + + + | Home Phone | | + + + | Preferred Language | Unknown | + + + | Marital Status | | + + + | Sikh Affiliation | Unknown | + + + | Race | Unknown | + + + | Ethnic Group | Unknown | + + + Author + + + | Author | [facility] | | | and Nenoana | + + + | Organization | [facility] | | | and Nenoana [...] + | Matthew Ramirez | ECON | [address] | | | | | [place] | | | | | [address] | | + + + + + Care Team Providers + +------+ + | Care Shuttle Spotter Name | Role | Phone | + [...] | | | | Gastric mass | [place], [place] | [place] | | | | | Procedures | [address] | [address] Phone: | | | | | Urgent- | Phone: | [phone] | | | | | EGD + EUS | [phone] | Fax: | | | | | NEXT WEEK | Fax: | [phone] | | | | | | [phone] | | +--------+ + + + + + Encounter Details +--------+ + + + + | Date | Type | Department | Care Team | Description | +--------+ + + + + | 01/06/ | Orders Only | [facility] | Matthew Shukla MD | Gastric | | 2019 | | GASTROENTEROLOGY | [address] | adenocarcinoma (HCC) | | | | [address] [facility] | [place], [place] | (Primary Dx) | | | | [address] [place] | [address] | | | | | [address] | [phone] | | | | | [phone] | | | +--------+ + + + [...] Shukla notified patient needed Urgent referral to [facility] for Eval Egd/EUS of gastric [...] Gastroenterology | | | | | | ([place]) | | | | | + + +--------+ + + documented as of this encounter Visit Diagnoses + + | Diagnosis | + + | Gastric adenocarcinoma (HCC) - Primary Malignant neoplasm of stomach, unspecified | | site | + + documented in this encounter"
--- OUTSIDE RECORDS SUMMARY | ~2019-10-14 | XMS | Encounter Summary ---
Demographics + + + | Address | [address] | | | [place] [address] | + + + | Home Phone [...] + | Author | [facility] | | | and Nenoana | + + + | Organization | [facility] | | [...] + | Matthew Ramirez | ECON | [address] | | | | | [place] | | | | | [address] | | + + + + + Care Team Providers + +------+ + | Care Assembler Watch Train Name | Role | Phone | + [...] | | [address] | [place] [address] | | | | | [address] | | | | | | [phone] | | | +--------+ + + + [...]
--- OUTSIDE RECORDS SUMMARY | ~2019-10-14 | XMS | Encounter Summary ---
Demographics + + + | Address | [address] | | | [place] [address] | + + + | Home Phone [...] + + | Author | [facility] | | | and Nenoana | + + + | Organization | [facility] | | | and Nenoana [...] + | Matthew Ramirez | ECON | [address] | | | | | [place] | | | | | [address] | | + + + + + Care Team Providers + +------+ + | Care Financial Counselor Name | Role | Phone | [...] + + | 03/18/ | Telephone | [facility] | Arpan | Coordination Of Care | | 2019 | | [facility] | Luis Richards MD [address] | | | | | ONCOLOGY CLINIC [address] | [facility] | | | | | [address] [facility] | [place] [address] | | | | | [place] [address] | [phone] | | | | | [phone] | | | +--------+ + + + [...]
--- OUTSIDE RECORDS SUMMARY | ~2019-10-14 | XMS | Encounter Summary ---
Demographics + + + | Address | [address] | | | [place] [address] | + + + | Home Phone [...] | [facility] | | | and Nenoana | + + + | Organization | [facility] | | | and [...] + | Matthew Ramirez | ECON | [address] | | | | | [place] | | | | | [address] | | + + + + + Care Team Providers + +------+ + | Care Global Implementation Manager Name | Role | Phone | + +------+ + | Ashly Rojo PA-C | PCP | | + +------+ + Encounter Details +--------+ + + + + | Date | Type | Department | Care Team | Description | +--------+ + + + + | 01/05/ | Abstract | [facility] | Provider, | | | 2019 | | SURGERY [address] | MD [address] | | | | | [address] [place], [place] | [place] | | | | | [address] | [place] [address] | | | | | [phone] | | | +--------+ + + + [...]
--- OUTSIDE RECORDS SUMMARY | ~2019-10-14 | XMS | Encounter Summary ---
Demographics + + + | Address | [address] | | | [place] [...] + | Matthew Ramirez | CHRIS | [address] | | | | | [place] | | | | | [address] | | + + + + + | Nella Haque | ECON | Unknown | | + + + + + Care Team Providers + +------+ + | Care Cytology Supervisor Name | Role | Phone | + +------+ + | Long Copeland MD | PCP | | + +------+ + Encounter Details +--------+--------+ + + + | Date | Type | Department | Care Team | Description | +--------+--------+ + + + | 10/13/ | Intake | Transfer Center | | N/A | | 2020 | | [address] | | | | | | [place], | | | | | | [place] [address] | | | +--------+--------+ + + + [...]
--- OUTSIDE RECORDS SUMMARY | ~2019-10-14 | XMS | Encounter Summary ---
Demographics + + + | Address | [address] | | | [place] [address] | + + + | Home Phone | | + + + | Preferred Language | Unknown | + + + | Marital Status | | + + + | Yazidism Affiliation | NRP | + + + [...] + | Matthew Ramirez | CHRIS | [address] | | | | | [place] | | | | | [address] | | + + + + + | Nella Garland | ECON | Unknown | | + + + + + Care Team Providers + +------+ + | Care Chiropractic Care Name | Role | Phone | + [...] | | sphincter | MD Gillian | [address] | | | | | deficiency | [address] | [place] | | | | | (ISD) | Neal Elena | [address] | | | | | Urinary | Rd | floor | | | | | stress | [facility], [place] | [place], [place] | | | | | incontinence | [address] | [address] | | | | | Procedures | Phone: | Phone: | | | | | REQUEST TO | [phone] | [phone] | | | | | SURGERY | Fax: | Fax: | | | | | SENIOR ENGINEER | [phone] | [phone] | | | | | [place] | | | | | | | [place] | | | | | | | [place] | | | | | | [...] | | | | | | | [address] | | | | | | | [address] | | | | | | | [address] [facility] | | | | | | | floor | | | | | | | [place], [place] | | | | | | | [address] | | | | | | | Phone: | | | | | | | [phone] | | | | | | | Fax: | | | | | | | [phone] | +--------+--------+ + + + + Encounter Details +--------+---------+ + + + | Date | Type | Department | Care Team | Description | +--------+---------+ + + + | 10/03/ | [facility] Avis Rios | 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 Sprague and agree with [facility] findings and plan as documented in her [...] be found in the scanned documents in [facility]. They have also been ent ered into the [facility] database. PHYSICAL EXAM BP 160/90 | Pulse [...] see scanned report in Epic In summary: [facility] 368cc with no DO; MUCP 10 cm [...] October 26 with preop October 25. TVT 52770 Patient seen and discussed with Dr. Rios. Christiana Cullen RN - 10/03/2010 11:26 AM PDTUrine dipstick ordered and pt voided 295 mL of urine. Pt prepped with betadine. 14 azeri straight cath through pts external urethra for [...] | + +--------+ + + + | MT CYSTOMETROGRAM | Routin | 11/01/2010 | Intrinsic | | | W/METAL PLATER&UP | e | 10:19 PM | sphincter deficiency | | | | | PDT | (ISD) Urinary | | | | | | stress incontinence | | + +--------+ + + + | MT INTRAABDOMINAL | Routin | 11/01/2010 | Intrinsic | | | VOIDING PRESSURE | e | 10:19 PM | sphincter deficiency | | | STUDY,AP,GLOBAL | | PDT | (ISD) Urinary | | | | | | stress incontinence | | + +--------+ + + + | MT | Routin | 11/01/2010 | Intrinsic | | | UROFLOWMETRY,COMPLEX | e | 10:19 PM | sphincter deficiency | | | ,GLOBAL | | PDT | (ISD) Urinary | | | | | | stress incontinence | | + +--------+ + + + | MT CYSTOMETROGRAM, | Routin | 11/01/2010 | Intrinsic | | | COMPLEX, GLOBAL | e | 10:19 PM | sphincter deficiency | | | | | PDT | (ISD) Urinary | | | | | | stress incontinence | | + +--------+ + + + | MT INTRAABDOMINAL | Routin | 11/01/2010 | Intrinsic [...] | + +--------+ + + + | MT NURSE 2 | Routin | 10/03/2010 | [...] | | DIP), POC | | | MARKOURTNEYAM | | | | | | DANISHA [...] | | DIP), POC | | | MARKOURTNEYAM | | | | | | DANISHA [...] MARQUAM | [address] | [place], [place] | | | [facility]ARE | [address] | [address] | | | TESTS | | | [...]
--- OUTSIDE RECORDS SUMMARY | ~2019-10-14 | XMS | Encounter Summary ---
Demographics + + + | Address | [address] | | | [place] [address] | + + + | Home Phone | | + + + | Preferred Language | Unknown | + + + | Marital Status | | + + + | Jainism Affiliation | Unknown | + + + | Race | Unknown | + + + | Ethnic Group | Unknown | + + + Author + + + | Author | [facility] | | | and Nenoana | + + + | Organization | [facility] | | | and Nenoana [...] + | Matthew Ramirez | ECON | [address] | | | | | [place] | | | | | [address] | | + + + + + Care Team Providers + +------+ + | Care [facility] Facility Psychiatrist Name | Role | Phone | + [...] | | | unspecified | | [place] [address] | | | | | type | | Phone: | | | | | Chronic | | [phone] | | | | | abdominal | | Fax: | | | | | pain | | [phone] | | | | | Benzodiazepi | [...] | | | | | | LA | | | | | | | ESOPHAGOGAST | | | | | | | RODUODENOSCO | | | | | | | PY TRANSORAL | | | | | | | DIAGNOSTIC | | | | | | | LA EGD | | | | | | | TRANSORAL | | | | | | | BIOPSY | | | | | | | SINGLE/MULTI | | | | | | | PLE LA | | | | | | | COLONOSCOPY | | | | | | | FLX DX | | | | | | | W/COLLJ SPEC | | | | | | | WHEN PFRMD | | | | | | | LA | | | | | | | COLONOSCOPY | | | | | | | W/BIOPSY | | | | | | | SINGLE/MULTI | | | | | | | PLE LA | | | | | | | COLSC FLX | | | | | | | W/RMVL OF | | | | | | | TUMOR POLYP | | | | | | | LESION SNARE | | | | | | | TQ LA | | | | | | | [...] + + | 12/17/ | Hospital | [facility] | Matthew Shukla MD | Rectal bleeding; | | 2019 | Encounter | [facility] | [address] | Diarrhea, | | | | [address] | [place] | unspecified type; | | | | [address] | [address] | Chronic abdominal | | | | [address] | [phone] | pain; 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 [...] |Scope Out: 3:26:19 PM | | | [facility], [address] [place] [address] | | | [address] | | + + -+ + +---------+ [...] 12/17/2018 | [facility]ATION | | 3:04 PMMRN: [id number] #: [id number] of : | | | 9Admit Type: AmbulatoryAge: 78Room: Endo Room 2Gender: | | | FemaleNote Status: FinalizedAttending MD: Matthew Shukla , | | | MDProcedure: ColonoscopyIndications: Abdominal | | | pain in the left upper quadrant, Hematochezia, | | | Chronic diarrhea, Weight lossProviders: Matthew Rosales | | | MD Gayla, Rina Edouard RN, oCnrado Kang, [facility], | | | Devon Murdock MD [...] the anesthesiologist and the | | | chemical engineering technician in the pre-procedure area in the [...] | | | evaluated using the BBPS (Kaaawa Bowel Preparation Scale) with | | | [...] PMScope Out: | | | 3:55:04 PM [facility], [address] [facility], | | | [place] [address] | | | - Await pathology results. [...] |Scope Out: 3:55:04 PM | | | [facility], [address] [facility], [place] | | | [address] | | + + -+ + +---------+ + + | Performing | Address | City/State/[facility] Cent[facility]ode | Phone Number | | Organization [...] | COMMENT: A -- As part of [facility]' Quality Improvement | | | Program, this portion of the case has been reviewed by another member | | | of our pathology staff with subspecialty training in gastrointestinal | | | pathology. Results called to Dr. Shukla office [facility]) 12/24/18 | | | 10:15 AM. Discussed [...] | and its performance characteristics determined by [facility]. | | | It has not been cleared or approved by the U.S. Food and Drug | | | Administration. The FDA has determined that such clearance or | | | approval is not necessary. This test is used for clinical purposes. | | | It should not be regarded as investigational or for research. | | | [facility] is certified under the Clinical Laboratory | | | Improvement Amendments of 1988 (CLIA) as qualified to perform high | | | complexity clinical laboratory testing. PERFORMING LABORATORY: | | | The technical component was performed by [facility], [address] | | | [place] [address] (Mud Analysis Operator: Marilyn Dowell MD; | | | CLIA# [id number]). Professional interpretation was performed by | | | [facility], [address] | | | [address] [place] [address] (Mud Analysis Operator: Guevara Ernandez | | | ; CLIA# [id number]). ADDITIONAL NOTES: Immunohistochemical | | | and/or in situ hybridization studies were performed on this case with | | | the appropriate positive controls that react as expected. This test | | | was developed and its performance characteristics determined by | | | [facility]. It has not been cleared or approved by the U.S. | | | Food and Drug Administration. The FDA has determined that such | | | clearance or approval is not necessary. This test is used for | | | clinical purposes. It should not be regarded as investigational or | | | for research. [facility] is certified under the Clinical | | | Laboratory Improvement Amendments of 1988 (CLIA) as qualified to | | | perform high complexity clinical laboratory testing. PERFORMING | | | LABORATORY: The technical component was performed by [facility] | | | [facility], [address] [place] [address] (Mud Analysis Operator: | | | Marilyn Dowell MD; CLIA# [id number]). Professional interpretation was | | | performed by [facility], [address] [place] [address] | | | [place] [address] (Mud Analysis Operator: Darien Kapoor D.O.; CLIA#: | | | [id number]). REASON FOR ADDENDUM: To add results of [...] the FDA-approved HER-2 Pathway is performed at [facility] | | | [place], on accession #[id number] from at the [...] the Vysis PathVysion kit was performed at [facility] | | | [place]. The assay has not been validated [...] interpretation was | | | performed by [facility], [address] [place] [address] | | | [place] [address] (Mud Analysis Operator: Everardo HillOPeggy; [facility]#: | | | [id number]). Diagnostician: Guevara Ernandez MD Pathologist | | [...] ONCE PRN, | | | Wheezing, Starting [facility] 12/17/18 at | | | 1346, For 1 dose, Pre-op | | + +---+ | | | + +---+ | albuterol-ipratropium 2.5-0.5 | | | mg/3 mL nebulizer solution 3 mL | | | 3 mL, Nebulization, ONCE PRN, | | | Wheezing, Shortness of Breath, | | | Starting [facility] 12/17/18 at 1615, For | | [...] glucose < 50, | | | Starting [facility] 12/17/18 at 1346, | | | [...]
--- OUTSIDE RECORDS SUMMARY | ~2019-10-14 | XMS | Encounter Summary ---
Demographics + + + | Address | [address] | | | [place] [address] | + + + | Home Phone [...] + + | Author | [facility] | + + + | Organization | [facility] | + + + | Address | Unknown | + + + | Phone | Unavailable | + + + Support + + + + + | Name | Relationship | Address | Phone | + + + + + | Matthew Ramirez | CHRIS | [address] | | | | | [place] | | | | | [address] | | + + + + + | Nella Haque | ECON | Unknown | | + + + + + Care Team Providers + +------+ + | Care Head Filter Press Tender Name | Role | Phone | [...] | | | | CONSULT TO | [place], | and [facility] | | | | | HEMATOLOGY / | [place] | [address] | | | | | ONCOLOGY | [address] | Ave | | | | | PRACTICE | Phone: | [place], [place] | | | | | | [phone] | [address] | | | | | | Fax: | Phone: | | | | | | [phone] | [phone] | | | | | | | Fax: | | | | | | | [phone] | + +---------+ + + + + [...] | metastasized to | | | | [facility] | [facility] [place] | multiple sites, | | | | for Health and | [address] | unspecified | | | | Healing [address] | [phone] | laterality (HCC) | | | | Ave [place], [place] | | (Primary Dx) | | | | [address] | | | | | | [phone] | | | +--------+---------+ + + + [...] due to this pain. She lives in [place] with her , whom she cares for [...] adenocarcinoma -saw Dr. Antony of oncology at [place], discussed getting EUS for further evaluati on [...] 300 mg by mouth three times daily. Qgohxzgtusg-Ewttuvlui-Yaq C-Mn (GLUCOSAMINE CHONDROITIN MAXSTR) 500-400 mg Oral [...] the evening. triamcinolone 55 mcg Nasal Aerosol, [place], Instill 2 Sprays into each nostril once [...] file Gets together: Not on file Attends restorationist service: Not on file Active member of club or organization: Not on file Attends meetings of clubs or organizations: Not on file Relationship status: Not on file Other Topics Concern Not on file Social History Narrative Lives with partner in [place] [facility] [place]- 34yrs. Son in [place]. 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 Now traveling [facility]. Family History Problem Relation Cancer Mother multiple [...] Diagnosis 1. Multiple specimens A to F [id number]; 01/13/19): A. Stomach, antrum at great curvature, [...] Pathology Resident Bonifacio Resendez MD Pathologist Pathology, [facility] My electronic signature indicates that [...] or otherwise as noted in their addendum. Ramnoa Taylor MD Hematology/Oncology Fellow PGY-5 Pager [phone] Associated attestation - Rodriguez Bower MD - [...] contact their office Rodriguez Bower MD, MS ID#[id number] Rack Washerprotection specialist Division of Hematology and Medical Oncology [facility] Pager#[phone] documented in this encounter Plan of Treatment Not on filedocumented as of this encounter Visit Diagnoses + + | Diagnosis | + + | Breast cancer metastasized to multiple sites, unspecified laterality (HCC) - Primary | + + documented in this encounter"
--- OUTSIDE RECORDS SUMMARY | ~2019-10-14 | XMS | Encounter Summary ---
Demographics + + + | Address | [address] | | | [place] [address] | + + + | Home Phone [...] | [facility] | | | and [place]eno[place] | + + + | Organization | [facility] | | | and Nenoana [...] + | Matthew Ramirez | ECON | [address] | | | | | [place] | | | | | [address] | | + + + + + Care Team Providers + +------+ + | Care Transit Coach Operator Name | Role | Phone | [...] | | | | Gastric mass | [place], [place] | [place] | | | | | Procedures | [address] | [address] Phone: | | | | | Urgent- | Phone: | [phone] | | | | | EGD + EUS | [phone] | Fax: | | | | | NEXT WEEK | Fax: | [phone] | | | | | | [phone] | | +--------+ + + + + + Encounter Details +--------+ + + + + | Date | Type | Department | Care Team | Description | +--------+ + + + + | 01/06/ | Orders Only | [facility] | Matthew Shukla MD | Gastric | | 2019 | | GASTROENTEROLOGY | [address] | adenocarcinoma (HCC) | | | | [address] [facility] | [place], [place] | (Primary Dx) | | | | [address] [place] | [address] | | | | | [address] | [phone] | | | | | [phone] | | | +--------+ + + + [...] Shukla notified patient needed Urgent referral to [facility] for Eval Egd/EUS of gastric adenocarcinoma [...] Gastroenterology | | | | | | ([place]) | | | | | + + +--------+ + + documented as of this encounter Visit Diagnoses + + | Diagnosis | + + | Gastric adenocarcinoma (HCC) - Primary Malignant neoplasm of stomach, unspecified | | site | + + documented in this encounter"
--- OUTSIDE RECORDS SUMMARY | ~2019-10-14 | XMS | Encounter Summary ---
Demographics + + + | Address | [address] | | | [place] [address] | + + + | Home Phone | | + + + | Preferred Language | Unknown | + + + | Marital Status | | + + + | Gnosticism Affiliation | Unknown | + + + | Race | Unknown | + + + | Ethnic Group | Unknown | + + + Author + + + | Author | [facility] | | | and Nenoana | + + + | Organization | [facility] [...] + | Matthew Ramirez | CHRIS | [address] | | | | | [place] | | | | | [address] | | + + + + + Care Team Providers + +------+ + | Care Supervisor Correspondence Section Name | Role | Phone | + +------+ + PCP | Unavailable | + +------+ + Encounter Details +--------+ + + + + | Date | Type | Department | Care Team | Description | +--------+ + + + + | 03/20/ | Hospital | [facility] | | | | 1994 | Encounter | MED CTR XRAY [address] | | | | | | [address] | | | | | | [place] [address] | | | | | | [phone] | | | +--------+ + + + [...]
--- OUTSIDE RECORDS SUMMARY | ~2019-10-14 | XMS | Encounter Summary ---
Demographics + + + | Address | [address] | | | [place] [address] | + + + | Home Phone [...] | Author | [facility] | | | and [place]enoana | + + + | Organization | [facility] | | | and Nenoana [...] + | Matthew Ramirez | CHRIS | [address] | | | | | [place] | | | | | [address] | | + + + + + Care Team Providers + +------+ + | Care Dirt Shoveler Name | Role | Phone | + [...] [address] | | | | | | [place], [place] | | | | | | [address] | | | | | | [phone] | | | +--------+ + + + [...]
--- OUTSIDE RECORDS SUMMARY | ~2019-10-14 | XMS | Encounter Summary ---
Demographics + + + | Address | [address] | | | [place] [address] | + + + | Home Phone | | + + + | Preferred Language | Unknown | + + + | Marital Status | | + + + | Muslim Affiliation | Unknown | + + + | Race | Unknown | + + + | Ethnic Group | Unknown | + + + Author + + + | Author | [facility] | | | and Nenoana | + + + | Organization | [facility] | | [...] + | Matthew Ramirez | ECON | [address] | | | | | [place] | | | | | [address] | | + + + + + Care Team Providers + +------+ + | Care Human Resource Internship Name | Role | Phone | + +------+ + | Ashly Rojo PA-C | PCP | | + +------+ + Reason for Visit +--------+ + | Reason | Comments | +--------+ + | Other | | +--------+ + Encounter Details +--------+ + + + + | Date | Type | Department | Care Team | Description | +--------+ + + + + | 01/04/ | Telephone | [facility] | Tanya Huerta RN | Other | | 2019 | | [facility] | | | | | | [facility]OGY CLINIC [address] | | | | | | [address] | | | | | | [place] [address] | | | | | | [phone] | | | +--------+ + + + [...]
--- OUTSIDE RECORDS SUMMARY | ~2019-10-14 | XMS | Encounter Summary ---
Demographics + + + | Address | [address] | | | [place] [address] | + + + | Home Phone | | + + + | Preferred Language | Unknown | + + + | Marital Status | | + + + | Restorationist Affiliation | NRP | + + + [...] + | Matthew Ramirez | CHRIS | [address] | | | | | [place] | | | | | [address] | | + + + + + | Nella Haque | ECON | Unknown | | + + + + + Care Team Providers + +------+ + | Care Peanut Blancher Name | Role | Phone | + +------+ + | Long Copleand MD | PCP | | + +------+ [...] of bladder | | 2010 | | [facility] | MD Gillian [address] | (surgery 10/26/10, | | | | [address] | [facility] | urogyn) | | | | [address] | [place], [place] | | | | | [place], [address] [place] [address] | [address] | | | | | [place], [place] | [phone] | | | | | [address] | | | | | | [phone] | | | +--------+ + + + [...] | | | [place] | [address] | [address] | | + + + + + documented in this encounter Visit Diagnoses + + | Diagnosis | + + | UTI (urinary tract infection) - Primary Urinary tract infection, site not specified | + + documented in this encounter"
--- OUTSIDE RECORDS SUMMARY | ~2019-10-14 | XMS | Encounter Summary ---
Demographics + + + | Address | [address] | | | [place] [address] | + + + | Home Phone [...] | Author | [facility] | | | and [place]enoana | + + + | Organization | [facility] | | | and [...] + | Matthew Ramirez | CHRIS | [address] | | | | | [place] | | | | | [address] | | + + + + + Care Team Providers + +------+ + | Care Management And Budget Analyst Name | Role | Phone | + +------+ + PCP | Unavailable | + +------+ + Encounter Details +--------+ + + + + | Date | Type | Department | Care Team | Description | +--------+ + + + + | 12/30/ | Hospital | [facility] | | | | 2001 | Encounter | MED CTR XRAY [address] | | | | | | [address] | | | | | | [place] [address] | | | | | | [phone] | | | +--------+ + + + [...]
--- OUTSIDE RECORDS SUMMARY | ~2019-10-14 | XMS | Encounter Summary ---
Demographics + + + | Address | [address] | | | [place] [address] | + + + | Home Phone [...] | Author | [facility] | | | and [place]eno[place] | + + + | Organization | [facility] | | | and [place] [...] + | Matthew Ramirez | ECON | [address] | | | | | [place] | | | | | [address] | | + + + + + Care Team Providers + +------+ + | Care Deputy United [place] Marshal Name | Role | Phone | + [...] | | | [address] | [place] [address] | | | | | [place] [address] | | | | | | [phone] | | | +--------+ + + + [...]
--- OUTSIDE RECORDS SUMMARY | ~2019-10-14 | XMS | Encounter Summary ---
Demographics + + + | Address | [address] | | | [place] [address] | + + + | Home Phone | | + + + | Preferred Language | Unknown | + + + | Marital Status | | + + + | Christianity Affiliation | NRP | + + + [...] + | Matthew Ramirez | CHRIS | [address] | | | | | [place] | | | | | [address] | | + + + + + | Nella Haque | ECON | Unknown | | + + + + + Care Team Providers + +------+ + | Care Instrument And Electrical Technician Name | Role | Phone | [...] (call back requested | | | | [facility] | [place], [place] | ) | | | | for Health and | [address] | | | | | Healing [address] | [phone] | | | | | Ave [place], [place] | | | | | | [address] | | | | | | [phone] | | | +--------+ + + + [...]
--- OUTSIDE RECORDS SUMMARY | ~2019-10-14 | XMS | Encounter Summary ---
Demographics + + + | Address | [address] | | | [place] [address] | + + + | Home Phone [...] | Author | [facility] | | | and [place] | + + + | Organization | [facility] | | | and [...] + | Matthew Ramirez | ECON | [address] | | | | | [place] | | | | | [address] | | + + + + + Care Team Providers + +------+ + | Care Research Chef Name | Role | Phone | + [...] Surgery / | Diagnoses | Gayla | [facility] | | | Services | General | 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 | General | | | Required | Surgery | adenocarcino | [address] | Surgery [address] | | | | | [address]argav ([facility]) | [address] | [place]EL | | | | | | [place], [place] | [place], | | | | | | [address] | [place] [address] | | | | | | Phone: | Phone: | | | | | | [phone] | [phone] | | | | | | Fax: | Fax: | | | | | | [phone] | [phone] | +--------+ + + + + + Encounter Details +--------+---------+ + + + | Date | Type | Department | Care Team | Description | +--------+---------+ + + + | 01/07/ | Office | [facility] | Ana Mendez MD | Gastric | | 2019 | Visit | SURGERY [address] | [address] | adenocarcinoma (HCC) | | | | [place], [place] | [place] [address] | (Primary Dx) | | | | [address] | [phone] | | | | | [phone] | | | +--------+---------+ + + + [...] adenoma. COMMENT: A -- As part of [employer] Quality Improvement Program, this portion of the case h as been reviewed by another member of our pathology staff with subspecialty training in lisa rointestinal pathology. Results called to Dr. Shukla office ([place]) 12/24/18 10:15 AM. Discussed results on specimen [...] today as well as notes from Dr. Shkula. PAST MEDICAL HISTORY Past Medical History: Diagnosis [...] Impalnt Revision; Surgeon: Jose Randall DPM; Location: [facility] BLADDER REPAIR 1971 BLADDER SUSPENSION 2007 CARPAL TUNNEL RELEASE Bilateral CATARACT REMOVAL Right 03/2016 CHOLECYSTECTOMY, LAPAROSCOPIC 1997 COLECTOMY 2004 recurrent diverticulitis COLONOSCOPY 01/2018 One diminutive polyp COLONOSCOPY N/A 12/17/2018 Procedure: COLONOSCOPY; Surgeon: Matthew Shukla MD; Location: [facility] MEDICAL PROCEDURE UNIT FINGER SURGERY Left 2007 Thumb surgery for osteoarthritis FINGER SURGERY Left 11/2008 FINGER SURGERY Right 04/2012 Thumb surgery HAMMER TOE SURGERY Right 03/06/2017 Procedure: Correction Hammer Toes 2nd , 3rd, and 4th Toes; Surgeon: ANNIE Cuevas; Location: [facility] SURGERY HAMMER TOE SURGERY Left 07/04/2017 Procedure: CORRECTION HAMMERTOES 2, 3, 4; Surgeon: Jose Randall DPM; Location: [facility] DIONICIO WHEATLEYAR SURGERY HAMMER TOE SURGERY Left 2018 x3 KNEE ARTHROSCOPY Right 2001 PUBOVAGINAL SLING 10/16/2010 TVT Retropubic sling at [facility] SIGMOID COLECTOMY 12/20/2002 Franck Davis MD - [facility] AND O 1996 TONSILLECTOMY AND ADENOIDECTOMY 1948 TOTAL KNEE ARTHROPLASTY Right 07/11/2011 TUBAL LIGATION 1976 UPPER GASTROINTESTINAL ENDOSCOPY N/A 12/17/2018 Procedure: EGD; Surgeon: Matthew Shukla MD; Location: [facility] MEDICAL PROCEDURE UNIT URETHROPEXY 07/11/2010 [...] MCG tablet Take 800 mcg by mouth. Fqfuelwgkjx-Etdzovwxl-Cks C-Mn (GLUCOSAMINE CHONDR 500 COMPLEX) CAPS 2 [...] has put in an urgent referral to [facility] erologist for a repeat EGD [...] this chart may have been created with [employer] voice recognition software. Occasi onal wrong-word or [...]
--- OUTSIDE RECORDS SUMMARY | ~2019-10-14 | XMS | Encounter Summary ---
Demographics + + + | Address | [address] | | | [place] [address] | + + + | Home Phone [...] Author | [facility] | | | and [place]eno[place] | + + + | Organization | [facility] | | | and Nenoana | [...] + | Matthew Ramirez | ECON | [address] | | | | | [place] | | | | | [address] | | + + + + + Care Team Providers + +------+ + | Care It Administrator Name | Role | Phone | [...] | | | | [K31.9] | | [address] Phone: | | | | | Procedures | | [phone] | | | | | [place] | | Fax: | | | | | ESOPHAGOGAST | | [phone] | | | | | RODUODENOSCO | [...] + + | 01/13/ | Anesthesia | [facility] | Hiren Streeter MD | | | 2019 | Event | [facility] | [address] | | | | | INTRA OP [address] | [place] [address] | | | | | [place], [place] | [phone] | | | | | [address] | | | | | | [phone] | | | +--------+ + + + + Anesthesia Record + + + + + | Procedure Name | Responsible | Anesthesia Start | Anesthesia Stop Time | | | Anesthesiologist | Time | | + + + + + | ENDOSCOPIC | Hiren Streeter MD | 01/13/19 1208 | 01/13/19 1253 | | ULTRASOUND, EGMarisol (N/A | | | | | ) [...] handed off to recovery nurse. VSS and jamul airway | | | 2 | | [...] by | 01/13/19 1323 by | | nicolas | gbqu-tqk-teuofz catheter system; | Jacklyn Gore RN | [...]
--- OUTSIDE RECORDS SUMMARY | ~2019-10-14 | XMS | Encounter Summary ---
Demographics + + + | Address | [address] | | | [place] [address] | + + + | Home Phone [...] Author | [facility] | | | and [place]eno[place] | + + + | Organization | [facility] | [...] + + + | Matthew Ramirez | CRHIS | [address] | | | | | [place] | | | | | [address] | | + + + + + Care Team Providers + +------+ + | Care Gin Pole Operator Name | Role | Phone | + +------+ + PCP | Unavailable | + +------+ + Encounter Details +--------+ + + + + | Date | Type | Department | Care Team | Description | +--------+ + + + + | 01/26/ | Hospital | [facility] | | | | 2008 | Encounter | MED CTR XRAY [address] | | | | | | [address] | | | | | | [place] [address] | | | | | | [phone] | | | +--------+ + + + [...]
--- OUTSIDE RECORDS SUMMARY | ~2019-10-14 | XMS | Encounter Summary ---
Demographics + + + | Address | [address] | | | [place] [address] | + + + | Home Phone [...] + | Matthew Ramirez | CHRIS | [address] | | | | | [place] | | | | | [address] | | + + + + + | Nella Haque | ECON | Unknown | | + + + + + Care Team Providers + +------+ + | Care Hospice Plan Administrator Name | Role | Phone | [...] [place] | Adjustment | | | | [facility] | [place], [place] | (Acetaminophen | | | | for Health and | [address] | adjustment ) | | | | Healing [address] | [phone] | | | | | [place], [place] | | | | | | [address] | | | | | | [phone] | | | +--------+ + + + [...]
--- OUTSIDE RECORDS SUMMARY | ~2019-10-14 | XMS | Encounter Summary ---
Demographics + + + | Address | [address] | | | [place] [address] | + + + | Home Phone [...] | Author | [facility] | | | and Neno[place] | + + + | Organization | [facility] | | [...] + | Matthew Ramirez | CHRIS | [address] | | | | | [place] | | | | | [address] | | + + + + + Care Team Providers + +------+ + | Care Demo Coordinator Name | Role | Phone | + +------+ + PCP | Unavailable | + +------+ + Encounter Details +--------+ + + + + | Date | Type | Department | Care Team | Description | +--------+ + + + + | 12/08/ | Hospital | [facility] | [place], | | | 2009 | Encounter | MED CTR GENERIC OP | Katerin Xavier MD | | | | | CONV DEPT [address] | | | | | | [place], | | | | | | [place] [address] | | | | | | [phone] | | | +--------+ + + + [...]
--- OUTSIDE RECORDS SUMMARY | ~2019-10-14 | XMS | Encounter Summary ---
Demographics + + + | Address | [address] | | | [place] [address] | + + + | Home Phone [...] Author | [facility] | | | and Nenoana | + + + | Organization | [facility] [...] + | Matthew Ramirez | CHRIS | [address] | | | | | [place] | | | | | [address] | | + + + + + Care Team Providers + +------+ + | Care Supervisor Painting Name | Role | Phone | + +------+ + PCP | Unavailable | + +------+ + Encounter Details +--------+ + + + + | Date | Type | Department | Care Team | Description | +--------+ + + + + | 11/27/ | Hospital | [facility] | | | | 1999 | Encounter | MED CTR GENERIC OP | | | | | | CONV DEPT [address] | | | | | | [place], | | | | | | [place] [address] | | | | | | [phone] | | | +--------+ + + + [...]
--- OUTSIDE RECORDS SUMMARY | ~2019-10-14 | XMS | Encounter Summary ---
Demographics + + + | Address | [address] | | | [place] [address] | + + + | Home Phone | | + + + | Preferred Language | Unknown | + + + | Marital Status | | + + + | Tenriism Affiliation | Unknown | + + + | Race | Unknown | + + + | Ethnic Group | Unknown | + + + Author + + + | Author | [facility] | | | and Nenoana | + + + | Organization | [facility] | | [...] + | Matthew Ramirez | CHRIS | [address] | | | | | [place] | | | | | [address] | | + + + + + Care Team Providers + +------+ + | Care Clothing Pattern Preparer Name | Role | Phone | + +------+ + PCP | Unavailable | + +------+ + Encounter Details +--------+ + + + + | Date | Type | Department | Care Team | Description | +--------+ + + + + | 06/15/ | Hospital | [facility] | | | | 2004 | Encounter | MED CTR XRAY [address] | | | | | | [address] | | | | | | [place] [address] | | | | | | [phone] | | | +--------+ + + + [...]
--- OUTSIDE RECORDS SUMMARY | ~2019-10-14 | XMS | Encounter Summary ---
Demographics + + + | Address | [address] | | | [place] [address] | + + + | Home Phone | | + + + | Preferred Language | Unknown | + + + | Marital Status | | + + + | Orthodoxy Affiliation | NRP | + + + [...] + | Matthew Ramirez | CHRIS | [address] | | | | | [place] | | | | | [address] | | + + + + + | Nella Haque | ECON | Unknown | | + + + + + Care Team Providers + +------+ + | Care Investigation Division Captain Name | Role | Phone | + +------+ + | Long Copeland MD | PCP | | + +------+ + Encounter Details +--------+ + + + + | Date | Type | Department | Care Team | Description | +--------+ + + + + | 01/28/ | Procedure | Radiology/Imaging | | | | 2019 | Pass | Lab at [facility] [address] | | | | | | [address] [place] Mailcode: | | | | | | [facility] | | | | | | Health and Healing, | | | | | | [place] [address] [facility] | | | | | | [place], [place] | | | | | | [address] | | | | | | [phone] | | | +--------+ + + + [...]
--- OUTSIDE RECORDS SUMMARY | ~2019-10-14 | XMS | Encounter Summary ---
Demographics + + + | Address | [address] | | | [place] [address] | + + + | Home Phone [...] + | Matthew Ramirez | CHRIS | [address] | | | | | [place] | | | | | [address] | | + + + + + Care Team Providers + +------+ + | Care Search Engine Optimization Strategist Name | Role | Phone | + +------+ + PCP | Unavailable | + +------+ + Encounter Details +--------+ + + + + | Date | Type | Department | Care Team | Description | +--------+ + + + + | 03/20/ | Hospital | [facility] | | | | 1994 | Encounter | MED CTR XRAY [address] | | | | | | [address] | | | | | | [place] [address] | | | | | | [phone] | | | +--------+ + + + [...]
--- OUTSIDE RECORDS SUMMARY | ~2019-10-14 | XMS | Encounter Summary ---
Demographics + + + | Address | [address] | | | [place] [address] | + + + | Home Phone | | + + + | Preferred Language | Unknown | + + + | Marital Status | | + + + | Sikh Affiliation | NRP | + + + | Race | White | + + + | Ethnic Group | Not or | + + + Author + + + | Author | [facility] | + + + | Organization | [facility] | + + + | Address | Unknown | + + + | Phone | Unavailable | + + + Support + + + + + | Name | Relationship | Address | Phone | + + + + + | Matthew Ramirez | CHRIS | [address] | | | | | [place] | | | | | [address] | | + + + + + | Nella Haque | ECON | Unknown | | + + + + + Care Team Providers + +------+ + | Care Entry Rep Name | Role | Phone | + [...] of bladder | | 2010 | | [facility] | MD Gillian [address] | (surgery 10/26/10, | | | | [address] | [facility] | urogyn) | | | | [address] | [place], [place] | | | | | [place], [address] [place] [address] | [address] | | | | | [place], [place] | [phone] | | | | | [address] | | | | | | [phone] | | | +--------+ + + + [...] | | | VALARIE | [address] | [address] | | + + + + + documented in this encounter Visit Diagnoses + + | Diagnosis | + + | UTI (urinary tract infection) - Primary Urinary tract infection, site not specified | + + documented in this encounter"
--- OUTSIDE RECORDS SUMMARY | ~2019-10-14 | XMS | Encounter Summary ---
Demographics + + + | Address | [address] | | | [place] [address] | + + + | Home Phone [...] + | Matthew Ramirez | CHRIS | [address] | | | | | [place] | | | | | [address] | | + + + + + | Nella Garland | ECON | Unknown | | + + + + + Care Team Providers + +------+ + | Care Junior Staff Accountant Name | Role | Phone | + [...] | | sphincter | MD Gillian | [address] | | | | | deficiency | [address] | [place] | | | | | (ISD) | Neal Elena | [address] | | | | | Urinary | Rd | floor | | | | | stress | [facility] [place] | [place], [place] | | | | | incontinence | [address] | [address] | | | | | Procedures | Phone: | Phone: | | | | | REQUEST TO | [phone] | [phone] | | | | | SURGERY | Fax: | Fax: | | | | | ESCROW CLERK | [phone] | [phone] | | | | | [place] | | | | | | | CYSTOURETHRO | | | | | | | [place] | | | | | | | [...] | | | | | | | [address] | | | | | | | [address] | | | | | | | El[facility] | | | | | | | floor | | | | | | | [place], [place] | | | | | | | [address] | | | | | | | Phone: | | | | | | | [phone] | | | | | | | Fax: | | | | | | | [phone] | +--------+--------+ + + + + Encounter Details +--------+---------+ + + + | Date | Type | Department | Care Team | Description | +--------+---------+ + + + | 10/03/ | Office [facility] Avis Rois | 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 Sprague and agree with [facility] findings and plan as documented in her [...] be found in the scanned documents in [facility]. They have also been ent ered into the [facility] database. PHYSICAL EXAM BP 160/90 | [...] see scanned report in Epic In summary: SHELTER 368cc with no DO; MUCP 10 cm [...] October 26 with preop October 25. TVT 59976 Patient seen and discussed with Dr. Rios. Christiana Cullen RN - 10/03/2010 11:26 AM PDTUrine dipstick ordered and pt voided 295 mL of urine. Pt prepped with betadine. 14 welsh straight cath through pts external urethra for [...] | + +--------+ + + + | [place] CYSTOMETROGRAM | Routin | 11/01/2010 | Intrinsic | | | W/C 40A CREW CHIEF&UP | e | 10:19 PM | sphincter deficiency | | | | | PDT | (ISD) Urinary | | | | | | stress incontinence | | + +--------+ + + + | [place] INTRAABDOMINAL | Routin | 11/01/2010 | Intrinsic | | | VOIDING PRESSURE | e | 10:19 PM | sphincter deficiency | | | STUDY,AP,GLOBAL | | PDT | (ISD) Urinary | | | | | | stress incontinence | | + +--------+ + + + | [place] | Routin | 11/01/2010 | Intrinsic | | | UROFLOWMETRY,COMPLEX | e | 10:19 PM | sphincter deficiency | | | ,GLOBAL | | PDT | (ISD) Urinary | | | | | | stress incontinence | | + +--------+ + + + | [place] CYSTOMETROGRAM, | Routin | 11/01/2010 | Intrinsic | | | COMPLEX, GLOBAL | e | 10:19 PM | sphincter deficiency | | | | | PDT | (ISD) Urinary | | | | | | stress incontinence | | + +--------+ + + + | [place] INTRAABDOMINAL | Routin | 11/01/2010 | Intrinsic [...] | + +--------+ + + + | RI NURSE 2 | Routin | 10/03/2010 | [...] MARQUAM | [address] | [place], [place] | | | [place]A POINT OF CARE | [address] | [address] | | | TESTS | | | [...]
--- OUTSIDE RECORDS SUMMARY | ~2019-10-14 | XMS | Encounter Summary ---
Demographics + + + | Address | [address] | | | [place] [address] | + + + | Home Phone | | + + + | Preferred Language | Unknown | + + + | Marital Status | | + + + | Synagogue Affiliation | Unknown | + + + | Race | Unknown | + + + | Ethnic Group | Unknown | + + + Author + + + | Author | [facility] | | | and Nenoana | + + + | Organization | [facility] | | | and Nenoana [...] + | Matthew Ramirez | ECON | [address] | | | | | [place] | | | | | [address] | | + + + + + Care Team Providers + +------+ + | Care Deaf Interpreter Name | Role | Phone | [...] | | | | [K31.9] | | [address] Phone: | | | | | Procedures | | [phone] | | | | | [place] | | Fax: | | | | | ESOPHAGOGAST | | [phone] | | | | | RODUODENOSCO | | | | | | | PY TRANSORAL | | | | | | | DIAGNOSTIC | | | | | | | [place] EDG US | | | | | [...] INTRA OP [address] | [place] [address] | | | | | [place] | [phone] | | | | | [address] | | | | | | [phone] | | | +--------+ + + + [...] handed off to recovery nurse. VSS and buckland airway | | | 2 | | [...] 01/13/19 1323 by | | nicolas | sukd-htf-orojay catheter system; | Jacklyn Gore RN | [...]
--- OUTSIDE RECORDS SUMMARY | ~2019-10-14 | XMS | Encounter Summary ---
Demographics + + + | Address | [address] | | | [place] [address] | + + + | Home Phone | | + + + | Preferred Language | Unknown | + + + | Marital Status | | + + + | Moravian Affiliation | NRP | + + + | Race | White | + + + | Ethnic Group | Not or | + + + Author + + + | Author | [facility] | + + + | Organization | [facility] | + + + | Address | Unknown | + + + | Phone | Unavailable | + + + Support + + + + + | Name | Relationship | Address | Phone | + + + + + | Matthew Ramirez | CHRIS | [address] | | | | | [place] | | | | | [address] | | + + + + + | Nella Haque | ECON | Unknown | | + + + + + Care Team Providers + +------+ + | Care Collision Center Manager Name | Role | Phone | [...] | | sphincter | MD Gillian | [address] | | | | | deficiency | [address] | [place] | | | | | (ISD) | [address] | [address] | | | | | Urinary | Rd | floor | | | | | stress | | [place], [place] | | | | | incontinence | [address] | [address] | | | | | Procedures | Phone: | Phone: | | | | | REQUEST TO | [phone] | [phone] | | | | | SURGERY | Fax: | Fax: | | | | | SEGMENTAL WALL INSTALLER | [phone] | [phone] | | | | | [place] | [...] evaluation | | 2010 | Visit | [facility] | MD Gillian [address] | (Primary Dx); | | | | [address] | [address] | Urinary incontinence | | | | [address] | | | | | | [place], [facility] floor | [address] | | | | | [place], [place] | [phone] | | | | | [address] | | | | | | [phone] | | | +--------+---------+ + + + [...] to [facility] in [facility] Exit the Lobby of the [facility] and turn right to take elevator 2 to the 9th floor of the [facility]. Follow signs directing you to the [place] [facility]. The [facility] is located on the 4th floor of the [facility] and [facility] ([facility]) just next to the exit for the tram. To return to the [facility] or to any of the facilities located on [facility], you will need a tram pass. These are available at no charge to patients with scheduled appointme nts and to those people accompanying them. For a tram pass, ask the law office receptionist in the lob by of the [facility] or the person who checks you [...] 300 mg by mouth three times daily. Xtjkqlgniht-Bqscwdqio-Wla C-Mn (GLUCOSAMINE CHONDROITIN MAXSTR) 500-400 mg Oral [...] the evening. triamcinolone 55 mcg Nasal Aerosol, Smock Instill 2 Sprays into each nostril once [...] Ramirez Number of Children: 3 Occupational History [employer] Social History Main Topics Smoking status: Never Smoker Smokeless tobacco: Never Used Alcohol Use: Yes 0-3/day- wine Drug Use: No Sexually Active: No partner not able Social History Narrative Lives with partner in [facility]- 34yrs. Son in [place]. 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 Now traveling [employer]. Review of Systems: Per HPI. All other systems negative PHYSICAL EXAM: BP 140/90 | Pulse 86 | Ht 1.746 m (5' 8.74") | Wt 104.373 kg (230 lb 1.6 oz) | SpO2 99% | B DC 34.24 kg/(m^2) GENERAL: Healthy Appearing, No acute [...] view image for the detailed interpretation from [employer] results. | CARDIOLOGY | + + + + + + + + | Performing | Address | City/State/Zipcode | Phone Number | | Organization | | | | + + + + + | [facility] | [address] | [place], [place] | | | CARDIOLOGY | [address] | [address] | | + + + + + [...] DEPARTMENT OF | [address] | [place] [address] | | | PATHOLOGY | [address] [...] | + + + + + | [facility] | [address] | [place] [address] | | | PATHOLOGY | [address] | | | + + + + + documented in this encounter Visit Diagnoses + + | Diagnosis | + + | Pre-op evaluation - Primary Preoperative examination, unspecified | + + | Urinary incontinence Unspecified urinary incontinence | + + documented in this encounter
--- OUTSIDE RECORDS SUMMARY | ~2019-10-14 | XMS | Encounter Summary ---
Demographics + + + | Address | [address] | | | [place] [address] | + + + | Home Phone | | + + + | Preferred Language | Unknown | + + + | Marital Status | | + + + | Mormonism Affiliation | Unknown | + + + | Race | Unknown | + + + | Ethnic Group | Unknown | + + + Author + + + | Author | [facility] | | | and Nenoana | + + + | Organization | [facility] | | | [...] + | Matthew Ramirez | ECON | [address] | | | | | [place] | | | | | [address] | | + + + + + Care Team Providers + +------+ + | Care Printed Circuit Board Designer Name | Role | Phone | [...] | | | unspecified | | [place] [address] | | | | | type | | Phone: | | | | | Chronic | | [phone] | | | | | abdominal | | Fax: | | | | | pain | | [phone] | | | | | Benzodiazepi | [...] | | | | | | [place] | | | | | | | ESOPHAGOGAST | | | | | | | RODUODENOSCO | | | | | | | PY TRANSORAL | | | | | | | DIAGNOSTIC | | | | | | | UT EGD | | | | | | | TRANSORAL | | | | | | | BIOPSY | | | | | | | SINGLE/MULTI | | | | | | | PLE UT | | | | | | | COLONOSCOPY | | | | | | | FLX DX | | | | | | | W/COLLJ SPEC | | | | | | | WHEN PFRMD | | | | | | | UT | | | | | | | COLONOSCOPY | | | | | | | W/BIOPSY | | | | | | | SINGLE/MULTI | | | | | | | PLE UT | | | | | | | COLSC FLX | | | | | | | W/RMVL OF | | | | | | | TUMOR POLYP | | | | | | | LESION SNARE | | | | | | | TQ UT | | | | | | [...] + + | 12/17/ | [facility] | [facility] | Matthew Shukla MD | EGD | | 2019 | | MED CTR MP INTRA OP | [address] | | | | | [address] | [place] | | | | | [place] | [address] | | | | | [address] | [phone] | | | | | [phone] | | | +--------+---------+ + + + [...] | | | episodic use ([facility]) | | | | | | [...] 12/17/2018 | [place] | | 3:06 PMMRN: [id number] #: [id number] of : | | | 1940dmit Type: [...] | | | the anesthesiologist and the medic technician in the pre-procedure | | | [...] PMScope Out: 3:26:19 | | | PM [facility], [address] [facility] | | | [place] [address] | | | - Await pathology results. [...] |Scope Out: 3:26:19 PM | | | [facility], [address], [place] | | | [address] | | + + -+ + +---------+ + + | Performing | Address | City/State[facility] | Phone Number | | Organization [...] 12/17/2018 | [place] | | 3:04 PMMRN: [id number] #: [id number] of : | | | 1940dmit Type: AmbulatoryAge: 78Room: Endo Room 2Gender: | | | FemaleNote Status: FinalizedAttending MD: Matthew Shukla , | | | MDProcedure: ColonoscopyIndications: Abdominal | | | pain in the left upper quadrant, Hematochezia, | | | Chronic diarrhea, Weight lossProviders: Matthew Rosales | | | MD Gayla, Rina Edouard RN, Conrado Kang [facility], | | | Devon Mudrock MD (Anesthesia Staff)Medicines: | | | Monitored [...] the anesthesiologist and the | | | medic technician in the pre-procedure area in the [...] | | | evaluated using the BBPS ([place] Bowel Preparation Scale) with | | | [...] PMScope Out: | | | 3:55:04 PM [facility], [address] [place] [address], | | | [place] [address] | | | - Await pathology results. [...] |Scope Out: 3:55:04 PM | | | [facility], [address] [facility], [place], [place] | | | [address] | | + + -+ + +---------+ [...] | COMMENT: A -- As part of [facility]' Quality Improvement | | | Program, this portion of the case has been reviewed by another member | | | of our pathology staff with subspecialty training in gastrointestinal | | | pathology. Results called to Dr. Shukla office [facility]) 12/24/18 | | | 10:15 [...] | and its performance characteristics determined by [facility]. | | | It has not been cleared or approved by the U.S. Food and Drug | | | Administration. The FDA has determined that such clearance or | | | approval is not necessary. This test is used for clinical purposes. | | | It should not be regarded as investigational or for research. | | | [facility] is certified under the Clinical Laboratory | | | Improvement Amendments of 1988 (CLIA) as qualified to perform high | | | complexity clinical laboratory testing. PERFORMING LABORATORY: | | | The technical component was performed by [facility], [address] | | | [place] [address] (Horticulture Teacher: Marilyn Dowell MD; | | | CLIA# [id number]). Professional interpretation was performed by | | | [facility], [facility], [address] [place] [address]. | | | [address] [place] [address] (Horticulture Teacher: Guevara Ernandez | | | ; CLIA# [id number]). ADDITIONAL NOTES: Immunohistochemical | | | and/or in situ hybridization studies were performed on this case with | | | the appropriate positive controls that react as expected. This test | | | was developed and its performance characteristics determined by | | | [facility]. It has not been cleared or approved by the U.S. | | | Food and Drug Administration. The FDA has determined that such | | | clearance or approval is not necessary. This test is used for | | | clinical purposes. It should not be regarded as investigational or | | | for research. [facility] is certified under the Clinical | | | Laboratory Improvement Amendments of 1988 (CLIA) as qualified to | | | perform high complexity clinical laboratory testing. PERFORMING | | | LABORATORY: The technical component was performed by [facility] | | | [facility], [address] [place] [address] (Horticulture Teacher: | | | Marilyn Dowell MD; CLIA# [id number]). Professional interpretation was | | | performed by [facility], [address] [place] | | | [place] [address] (Horticulture Teacher: Darien Kapoor D.O.; CLIA#: | | | [id number]). REASON FOR ADDENDUM: To add results of [...] the FDA-approved HER-2 Pathway is performed at [facility] | | | [place], on accession #[id number] from at the [...] the Vysis PathVysion kit was performed at [facility] | | | [place]. The assay has not been validated [...] interpretation was | | | performed by [facility], [address] [facility] | | | [place] [address] (Horticulture Teacher: Darien Kapoor D.O.; CLIA#: | | | [id number]). Diagnostician: Guevara Ernandez MD Pathologist | | [...] [place] PATHOLOGY | | | | | [employer] | | | | + +---------+ + [...] ONCE PRN, | | | Wheezing, Starting [facility] 12/17/18 at | | | 1346, For 1 dose, Pre-op | | + +---+ | | | + +---+ | albuterol-ipratropium 2.5-0.5 | | | mg/3 mL nebulizer solution 3 mL | | | 3 mL, Nebulization, ONCE PRN, | | | Wheezing, Shortness of Breath, | | | Starting [facility] 12/17/18 at 1615, For | | | [...]
--- OUTSIDE RECORDS SUMMARY | ~2019-10-14 | XMS | Encounter Summary ---
Demographics + + + | Address | [address] | | | [place] [address] | + + + | Home Phone [...] Author | [facility] | | | and Nenoana | + + + | Organization | [facility] | | [...] + | Matthew Ramirez | ECON | [address] | | | | | [place] | | | | | [address] | | + + + + + Care Team Providers + +------+ + | Care Manager China Name | Role | Phone | + [...] | | | [address] [place] | [place] [address] | | | | | [place] [address] | | | | | | [phone] | | | +--------+ + + + [...]
--- OUTSIDE RECORDS SUMMARY | ~2019-10-14 | XMS | Encounter Summary ---
Demographics + + + | Address | [address] | | | [place] [address] | + + + | Home Phone [...] + | Matthew Ramirez | CHRIS | [address] | | | | | [place] | | | | | [address] | | + + + + + | Nella Haque | ECON | Unknown | | + + + + + Care Team Providers + +------+ + | Care Metal Template Maker Name | Role | Phone | + [...] (TRAMADOL 50 mg) | | | | [facility] | [place], [place] | | | | | for Health and | [address] | | | | | Healing [address] | [phone] | | | | | [place], [place] | | | | | | [address] | | | | | | [phone] | | | +--------+--------+ + + + [...]
--- OUTSIDE RECORDS SUMMARY | ~2019-10-14 | XMS | Encounter Summary ---
Demographics + + + | Address | [address] | | | [place] [address] | + + + | Home Phone | | + + + | Preferred Language | Unknown | + + + | Marital Status | | + + + | Roman Catholic Affiliation | Unknown | + + + | Race | Unknown | + + + | Ethnic Group | Unknown | + + + Author + + + | Author | [facility] | | | and Nenoana | + + + | Organization | [facility] | | [...] + | Matthew Ramirez | ECON | [address] | | | | | [place] | | | | | [address] | | + + + + + Care Team Providers + +------+ + | Care Farm Demonstrator Name | Role | Phone | + [...] | | cancer | Luis Richards, | [place] | | | | | metastasized | MD [address] | [place], [place] | | | | | to multiple | [address] | [address] | | | | | sites, left | [place], | Phone: | | | | | (HCC) | [place] [address] | [phone] | | | | | Procedures | Phone: | Fax: | | | | | PET CT Skull | [phone] | [phone] | | | | | Base To Mid | Fax: | | | | | | Thigh | [phone] | | +--------+--------+ + + + + [...] | | cancer | Luis Richards, | [place] | | | | | metastasized | MD [address] | [place], [place] | | | | | to multiple | [address] | [address] | | | | | sites, left | [place], | Phone: | | | | | (HCC) | [place] [address] | [phone] | | | | | Procedures | Phone: | Fax: | | | | | PET CT Skull | [phone] | [phone] | | | | | Base To Mid | Fax: | | | | | | Thigh | [phone] | | +--------+--------+ + + + + Encounter Details +--------+ + + + + | Date | Type | Department | Care Team | Description | +--------+ + + + + | 07/21/ | Hospital | [facility] | [place], | Breast cancer | | 2020 | Encounter | MED CTR PET SCAN | Luis Richards MD [address] | metastasized to | | | | [address] [place] | [address] [place] | multiple sites, left | | | | [place] [address] | [place] [address] | (HCC) | | | | [phone] | [phone] | | | | | | | [...] + -----+ | Exam: PET CT | TAMMY DAVISA GING | | SKULL BASE TO [...] millicur | | | | Intravenous, ONCE, [facility] 07/22/19 at | | AM PDT | ies | | | | 0930, For 1 dose | | | | | | + +--------+ + +------+------+ +---+---+ | | | +---+---+ documented in this encounter
--- OUTSIDE RECORDS SUMMARY | ~2019-10-14 | XMS | Encounter Summary ---
Demographics + + + | Address | [address] | | | [place] [address] | + + + | Home Phone [...] | Author | [facility] | | | and Nenoana | + + + | Organization | [facility] | | | and [...] + | Matthew Ramirez | ECON | [address] | | | | | [place] | | | | | [address] | | + + + + + Care Team Providers + +------+ + | Care Boarding Specialist Name | Role | Phone | [...] | | | | [K31.9] | | [address] Phone: | | | | | Procedures | | [phone] | | | | | MS | | Fax: | | | | | ESOPHAGOGAST | | [phone] | | | | | RODUODENOSCO | | | | | | | PY TRANSORAL | | | | | | | DIAGNOSTIC | | | | | | | MS EDG US | | | | | [...] + + | 01/13/ | Hospital | [facility] | Sukumar Stevenson MD | 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 | Encounter | [facility] | [address] [place] | of overlapping sites | | | | INTRA OP [address] | [address] [place] | of stomach (HCC) | | | | [address] [place] | [address] | | | | | [address] | | | | | | [phone] | | | +--------+ + + + [...] + + | | [facility] | | [facility] | [facility] | | : 1940 AGE: 78 years SEX: Female | MEDICAL CENTER | | | LABORATORY | | Acct: [id number] Location: | [facility] | | [facility]; [facility] MEDICAL PROCEDURE UNIT POOL; [facility] | | | MEDICAL PROCEDURE UNIT POOL | | | Case #: [id number] Ordering: | | | SUKUMAR STEVENSON MD Client: [facility] | | | [facility] Copy To: | | | Printed: 01/20/2019 09:40 PDT | | | SURGICAL PATHOLOGY FINAL REPORTCollected: | | | Received: | | | Responsible Pathologist:01/13/2019 12:45 PDT | | | 01/13/2019 13:25 PDT [facility] | | | DIAGNOSIS:A. Gastric antrum at [...] fragments. | | | Mild inactive chronic gastritis.[facility]/SK 01/14/19 01:36 pmVerified | | | by: ANNABELLE FULLER MDVerify Date: 01/20/2019 09:40 [facility] | | | [facility] [address] | | | SURGICAL PATHOLOGY FINAL REPORTCollected: [...] controls stain appropriately.As a part of our air quality technician | | | policy, this case [...] their performance characteristics determined by [facility]. This test is used for clinical | | | purposes. It should not be regarded as investigational or for | | | research. [facility] is certified under the Clinical | | | Laboratory Improvement Amendments of 1988 (CLIA) as qualified to | | | perform high complexity clinical laboratory testing. | | + + + + + + + + | Performing | Address | City/State/Zipcode | Phone Number | | Organization | | | | + + + + + | [facility] | [address] | [place] [address] | | | [facility] | | | | | LABORATORY EZE | | | | + + + + + EUS Upper (01/13/2019 11:39 AM PDT) + + | Specimen | + + | | + + + + + | Narrative | Performed At | + + + | [facility] | [place] | | [facility] | PROVATION | | CenterGI | | | Patient Name: Ashly Ramirez Procedure | | | Date: 01/13/2019 11:39 AMMRN: [id number] | | | of : 1940 | [...] AMNumber | | | of Addenda: 0 [facility] - | | | Endoscopy Services | | | | | |SUKUMAR STEVENSON MD | | |01/13/2019 1:07:25 PM | | |This report has been signed electronically. | | | | | |Note Initiated On: 01/13/2019 11:39 AM | | |Number of Addenda: 0 | | | | | | [facility] | | + + [...] | TRACEMASTER | | Duration:172 msP Horizontal [place]:28 degP Front [place]:60 degQ Onset:512 | | | msQRSD Interval:136 msQT Interval:448 msQTcB:477 msQTcF:467 msQRS | | | Horizontal [place]:150 degQRS [place]:-35 degI-40 Horizontal [place]:34 degI-40 | | | Front [place]:74 degT-40 Horizontal [place]:151 degT-40 Front [place]:-77 degT | | | Horizontal [place]:8 degT Wave [place]:51 degS-T Horizontal [place]:21 degS-T | | | Front [place]:83 degSeverity:- ABNORMAL ECG -INTERP:SINUS | | | RHYTHMINTERP:VENTRICULAR PREMATURE COMPLEXINTERP:RBBB AND | | | LAFBINTERP:LEFT VENTRICULAR HYPERTROPHYElectronically signed by: | | | ANDREAS MAXWELL 01-18-2019 07:24:33 | | |QTcF:467 ms | | |QRS Horizontal [place]:150 deg | | |QRS [place]:-35 deg | | |I-40 Horizontal [place]:34 deg | | |I-40 Front [place]:74 deg | | |T-40 Horizontal [place]:151 deg | | |T-40 Front [place]:-77 deg | | |T Horizontal [place]:8 deg | | |T Wave [place]:51 deg | | |S-T Horizontal [place]:21 deg | | |S-T Front [place]:83 deg | | |Severity:- ABNORMAL ECG - [...] + + + + + | [facility] | [address] | [place] [address] | [phone] | + + + + + POC [...] POC | Performed by [facility] [address] | | [facility] | | | | [address] [place] | | HEART | | | | [address] | | MEDICAL | | | | [...] + + | [facility] | [address] | [place] [address] | | | [facility] | | | | | LABORATORY [...] scheduled: AC, NPO, Daytime | | | 9264-6788 Use NIGHT DOSE for | | | doses scheduled: HS, 3AM, | | | Nighttime 2382-0918 If the BG is | | | [...]
--- OUTSIDE RECORDS SUMMARY | ~2019-10-14 | XMS | Encounter Summary ---
Demographics + + + | Address | [address] | | | [place] [address] | + + + | Home Phone [...] | Author | [facility] | | | and Nenoana | + + + | Organization | [facility] | [...] + | Matthew Ramirez | [place] | [address] | | | | | [place] | | | | | [address] | | + + + + + Care Team Providers + +------+ + | Care Head Librarian Name | Role | Phone | + +------+ + PCP | Unavailable | + +------+ + Encounter Details +--------+ + + + + | Date | Type | Department | Care Team | Description | +--------+ + + + + | 07/15/ | Hospital | [facility] | | | | 2001 | Encounter | MED CTR GENERIC OP | | | | | | CONV DEPT [address] | | | | | | [place], | | | | | | [place] [address] | | | | | | [phone] | | | +--------+ + + + [...]
--- OUTSIDE RECORDS SUMMARY | ~2019-10-14 | XMS | Encounter Summary ---
Demographics + + + | Address | [address] | | | [place] [address] | + + + | Home Phone [...] + + + | Author | [facility] | + + + | Organization | [facility] | + + + | Address | Unknown | + + + | Phone | Unavailable | + + + Support + + + + + | Name | Relationship | Address | Phone | + + + + + | Matthew Ramirez | CHRIS | [address] | | | | | [place] | | | | | [address] | | + + + + + | Nella Haque | ECON | Unknown | | + + + + + Care Team Providers + +------+ + | Care Solid Waste Disposal Manager Name | Role | Phone | [...] | | | | | Procedures | [address] | | | | | | PET CT SKULL | Phone: | | | | | | [place] | [phone] | | | | | | [place] | Fax: | | | | | | | [phone] | | +--------+--------+ + + + + [...] | | | | [address] | [address] | | | | | | [place], | Phone: | | | | | | [place] [address] | [phone] | | | | | | Phone: | Fax: | | | | | | [phone] | [phone] | | | | | | Fax: | | | | | | | [phone] | | +--------+--------+ + + + + [...] | | | Ave Mail Code: | [place], [place] | (Primary Dx); Tumor | | | | [place] [facility] | [address] | | | | | and Healing, | [phone] | | | | | [address] | | | | | | [place], [place] | | | | | | [address] | | | | | | [phone] | | | +--------+---------+ + + + [...] obtain PET scan at local facility in [place]. Please contact Nelli Vaca, Nurse Coordinator for Dr. Cristel Galicia, with any questions at [phone]. We encourage all of our patients to sign up and use [employer] for communication . Please note: I am out of the office on Mondays and unable to monitor voicemail or email. If you need to get ahold of someone urgently, please call [phone]. documented in this encounter Progress Notes Cristel Galicia MD - 02/03/2019 9:00 AM PDTATTENDING PHYSICIAN STATEMENT AND SUMMARY This note has been dictated using Personal Estate Manager voice recognition software. I saw Ashly Ramirez [...] will byrnes ve her set up in [facility], I will discuss her case when these results are avai lable in our multidisciplinary GI tumor board, and then contact the patient and a local [facility] oncologist with any treatment recommendations. RECOMMENDATIONS 1. PET CT scan to be ordered and performed in [facility]. 2. We will discuss her case [...] o their satisfaction. Cristel Galicia MD, MPH production supv Division of Surgical Oncology [facility] [place], [place] Desmond Frank MD - 9:00 AM PDT 02/03/2019 Surgical Oncology Clinic New Patient Consultation--Gastric Cancer Referring Physician: Dr. Luis Antony Reason for consultation: Newly diagnosed gastric adenocarcinoma (This note is structured to facilitate communication among oncology providers) PLAN TODAY: 1. Return to clinic after discussion at tumor board. 2. Return to [facility] for EGD with biopsies for disease surveillance 3. Will need a PET/CT scan 4. Will present case and discuss in upcoming Multi-Disciplinary Tumor board and contact pat ient with recommendations. 5. Solid tumor Gene Trails 6. Follow up [facility] path review of outside [...] gastric adeno carcinoma. She subsequently went to [place] and underwent and EUS with Dr. Stevenson [...] and hematochezia. 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 Currently, she is functionally good allowing [...] Ramirez case will be discussed at the [facility] Multidisciplinary Gastrointestinal Cancer Conference [...] individualized evelia tment. Desmond Voss MD R1 [facility] General Surgery documented in [...] | [facility] | | | TESTED | [id number] E1 labeled as | | DIAGNOSTIC | [...] | | | | | | is security representative of | | | | | | this tumor, we would | | | | | | welcome the opportunity | | | | | | to examine it. | | | | + + + + + + | DISCLAIMER | This test was developed | | [facility] | | | | and its performance | | DIAGNOSTIC | | | | characteristics | | | | | | determined by the [facility] | | LABORATORIE | | | | [facility] Diagnostic | | S | | [...] | | | | | (CLIA). The [facility] | | | | | | Diagnostics | | | | | | Laboratories are fully | | | | | | licensed by the state of | | | | | | [place] under CLIA and | | | | | | are accredited by the | | | | | | [employer] | | | | | | Pathologists (CAP). | | | | | | Cut Plug Packer: | | | | | | [place] [...] + + + | [facility] | [address] | [place] [address] | | | DIAGNOSTIC | [address] [...]
--- OUTSIDE RECORDS SUMMARY | ~2019-10-14 | XMS | Clinical Summary ---
Demographics + + + | Address | [address] | | | [place] [address] | + + + | Home Phone [...] Author | [facility] | | | and Nenoana | + + + | Organization | [facility] | | | and Nenoana [...] + | Matthew Ramirez | ECON | [address] | | | | | [place] | | | | | [address] | | + + + + + Care Team Providers + +------+ + | Care Disease Case Manager Rn Name | Role | Phone | + [...] Repeat colonoscopy January 26, 2018 | | ([facility]) notable for a tubular adenoma.5. Admit [facility], October 18, 2017 | | for partial small bowel obstruction. CT scan of abdomen/pelvis | | with contrast demonstrated small bowel obstruction. Symptoms | | resolved with conservative management.6. Presentation on July | | 2018 with abdominal pain, nausea and one episode of vomiting. | | CT abdomen/pelvis with contrast August 05, 2018 at [place] | | [facility] in [facility] demonstrated no acute inflammatory | | changes in the abdomen or pelvis.7. EGD/ Colonoscopy with random | | biopsies by Dr. Shukla, [facility] on December 17, 2018; Specimen # | | [id number] (SurveySnap). "A-Mucosa, stomach, | | biopsy-infiltrating gastric adenocarcinoma." Specimens | | B-duodenum, C-antrum, D-gastroesophageal junction, E-ascending | | colon, F-transverse colon, G-descending colon, and H, sigmoid | | colon were all negative for invasive malignancy.8. CT | | chest/abdomen/pelvis on December 31, 2018; No concerning gastric | | mass, no findings to suggest metastatic disease.9. Admit to [facility] | | on May 06, 2019 for small bowel obstruction, with laparotomy | | and extensive lysis of adhesions May 07, 2019 ([place]). | | Last Assessment & Plan: Ashly Ramirez is referred by | | Matthew Shukla Md [address] | | [address] for evaluation and management of gastric adenocarcinoma.I | | met with Ashly and her daughter Nella, on 01/05/2019 at the | | [facility]. The patient's history | | includes chronic [...] pathological findings with Dr. 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 Dr. Shukla agreed that the lack of endoscopic or | | radiographic findings is atypical and agreed that endoscopic | | ultrasound is indicated for further evaluation. Dr. Shukla' office | | will co-ordinate endoscopic ultrasound with [facility] | | Group in [place]. I will follow up with Ashly Ramirez after | | her next procedure to review the results and to establish a plan | | of management. | + + + + + | Rectal bleeding | 12/16/2018 | + + + + + | Overview: Added automatically from request for surgery | | [id number] | + + + + + | Diarrhea, unspecified type | 12/16/2018 | + + + + + | Overview: Added automatically from request for surgery | | [id number] | + + + + + | Chronic abdominal pain | 12/16/2018 | + + + + + | Overview: Added automatically from request for surgery | | [id number] | + + + + + | Benzodiazepine dependence | 12/16/2018 | + + + + + | Overview: Added automatically from request for surgery | | [id number] | + + + + + | Narcotic dependence, episodic use | 12/16/2018 | + + + + + | Overview: Added automatically from request for surgery | | [id number] | + + + + + | LUQ pain | 12/16/2018 | + + + + + | Overview: Added automatically from request for surgery | | [id number] | + + + + + | Alternating constipation and diarrhea | 12/16/2018 | + + + + + | Overview: Added automatically from request for surgery | | [id number] | + + + + + | Hematochezia | 12/16/2018 | + + + + + | Overview: Added automatically from request for surgery | | [id number] | + + + + + | Weight loss, unintentional | 12/16/2018 | + + + + + | Overview: Added automatically from request for surgery | | [id number] | + + + + + | [...] | + + + + | INFLUENZA, [id number], | 04/29/2009 | | | UNSPECIFIED | [...] | Left: | CONMED | | | [id number] | | on 07/04/2017 by Prakash, | | Toe | JOHN- 91712 | | | [address] | | Jose Sanon DPM at [facility] | | | | | | /[id number] | | [facility] | | | | | | [id number] | | | | | | | | 624780 | | | | | | | | 638131 | | | | | | | | 847297 | | | | | | | | 165172 | | | | | | | | | | | | | | | | /[id number] | | | | | | | | 6 | + +------+--------+ +--------+--------+--------+ | .045 C-WireImplanted: Qty: 1 | | Left: | CONMED | | | [id number] | | on 07/04/2017 by Prakash, | | Toe | CONMED | | | 59838 | | [facility] at [facility] | | | JOHN. | | | /[id number] | | [facility] | | | | | | 865127 | | | | | | | | 511164 | | | | | | | | 570255 | | | | | | | | 544324 | | | | | | | | 306410 | | | | | | | | | | | | | | | | /61857 | | | | | | | | 7 | + +------+--------+ +--------+--------+--------+ | .045 C-WireImplanted: Qty: 1 | | Left: | CONMED | | | [id number] | | on 07/04/2017 by Prakash, | | Toe | CONMED | | | [address] | | Jose Sanon DPM at [facility] | | | JOHN. | | | /[id number] | | [facility] | | | | | | 871092 | | | | | | | | 163103 | | | | | | | | 048692 | | | | | | | | 181928 | | | | | | | | 284390 | | | | | | | | | | | | | | | | /13772 | | | | | | | | 6 | + +------+--------+ +--------+--------+--------+ | Pip DartImplanted: Qty: 1 on | | Right: | ARTHREX | | 06/11/ | AR-415 | | 02/13/2018 by Jose Randall | | Toe | ARTHREX | | 2021 | 5PS-30 | | JACKIE Sanon at [facility] | | | [employer] | | | 10 | | [facility] | | | | | | /+$$80 | | | | | | | | 547902 | | | | | | | | 695051 | | | | | | | | 77U | | | | | | | | /30624 | | | | | | | | 817 | + +------+--------+ +--------+--------+--------+ | Pip Trevor Implanted: Qty: 1 on | | Right: | ARTHREX | | 11/08/ | AR-415 | | 02/13/2018 by Prakash, | | Toe | ARTHREX | | 2022 | 4PS-30 | | Jose Sanon DPM at [facility] | | | INC[employer] | | | 10 | | [facility] | | | | | | /+$$80 | | | | | | | | 333348 | | | | | | | | 826261 | | | | | | | | 47$ | | | | | | | | /03688 | | | | | | | [...] Toe | ARTHREX | | 2020 | /[id number] | | Qty: 1 on 02/13/2018 at [facility] | | | INC[employer] | | | [id number] | | [facility] | | | | | | 152051 | | | | | | | | 943170 | | | | | | | | 569372 | | | | | | | | 369287 | | | | | | | | 761 | | | | | | | | /10476 | | | | | | | [...] + +--------+ | MEDICARE | MEDICA | [id number] | 10/11/19 | [phone] | | Medica | | | RE | | 04-Pre | 5 | | re | | | PART A | | sent | | | | | | AND B | | | | | | + +--------+ +--------+ + +--------+ | MODA | MODA | [id number] | 05/12/19 | [phone] | [address] | Indemn | | | HEALTH | | 17-Pre | 9 | [address] | ity | | | MDCR | | sent | | [place], | | | | [place] | | | | [place] [address] | | + +--------+ +--------+ + +--------+ | MEDICARE | MEDICA | [id number] | 10/11/19 | [phone] | | Medica | | | RE | | 04-Pre | 5 | | re | | | PART A | | sent | | | | | | AND B | | | | | | + +--------+ +--------+ + +--------+ | MODA | MODA | [id number] | 05/12/19 | [phone] | [address] | Indemn | | | HEALTH | | 19-Pre | 9 | [address] | ity | | | MDCR | | sent | | [place], | | | | [place] | | | | [place] [address] | | + +--------+ +--------+ + +--------+ + +--------+ +--------+ + + | Guarantor Name | Accoun | Relation to | Date | Phone | Billing Address | | | t Type | Patient | of | | | | | | | | | | + +--------+ +--------+ + + | Ashly Ramirez | Person | Self | [birth year] | | [address] | | | al/Fam | | 1941 | [phone] | [place], [place] | | | amrik | | | 9 (Home) | [address] | + +--------+ +--------+ + + | Ashly Ramirez | Person | Self | [birth year] | | [address] | | | al/Fam | | 1941 | [phone] | [place], [place] | | | amrik | | | 9 (Home) | [address] | + +--------+ +--------+ + + Advance Directives + + + + + | Type | Date Recorded | Patient | Explanation | | | | Nutrition Services Associate | | + + + + + | Power of | | | | | Career Services Assistant | | | | + + + [...]
--- OUTSIDE RECORDS SUMMARY | ~2019-10-14 | XMS | Clinical Summary ---
Demographics + + + | Address | [address] | | | [place] [address] | + + + | Home Phone [...] + | Matthew Ramirez | ECON | [address] | | | | | [place] | | | | | [address] | | + + + + + | Nella Haque | ECON | Unknown | | + + + + + Care Team Providers + +------+ + | Care Division Sergeant Name | Role | Phone | + +------+ + | Long Copeland MD | PCP | | + +------+ + Source Comments MEÑO is fully live on both [facility] and [facility] Allergies + + + + + [...] | | | | e | | [place] | once daily. | | | | [...] Refill Request | | 2020 | | Oncology | | | +--------+ + + + + | 08/23/ | Refill | Hematology & | Rodriguez Bower MD | Prescription | | 2020 | | Oncology | | (TRAMADOL 50 mg) | +--------+ + + + + | 08/15/ | Refill | Hematology & | Rodriguez Bower MD | Refill Request | | 2020 | | Oncology | | | +--------+ + + + + | 08/15/ | Refill | Hematology & | Rodriguez Bower MD | Refill Request | | 2020 | | Oncology | | | +--------+ [...] | Refill | Hematology & | Larissa Colón, | Medication | 2019 | | Oncology | PharmD | (Letrozole) | +--------+ + + + + | 07/27/ | Telephone | Hematology & | Rodriguez Bower MD | Symptom Management | 2019 | | Oncology | | (Constipation) | +--------+ + + + + | 07/25/ | Telephone | Hematology & | Rodriguez Bower MD | Scheduling | 2019 | | Oncology | | [...] | | | | | | | [address] | | + +--------+ +--------+ + +--------+ | MODA MEDICARE | MODA | xxxxxxxxx | 05/12/19 | [phone] | [address] | POS | | SUPPLEMENT | MEDICA | | 19-Pre | 4 | [phone] | | | | RE | | sent | | [place], | | | | [place]PP[place] | | | | [place] [address] | | | | MENT | | [...] Person | Self | [birth year] | | [address] | | | al/Fam | | 1941 | [phone] | [place] | | | amrik | | | 9 (Home) | [address] | + +--------+ +--------+ + + Advance [...]
--- OUTSIDE RECORDS SUMMARY | ~2019-10-14 | XMS | Encounter Summary ---
Demographics + + + | Address | [address] | | | [place] [address] | + + + | Home Phone [...] Author | [facility] | | | and Nenoana | + + + | Organization | [facility] | | | [...] + | Matthew Ramirez | ECON | [address] | | | | | [place] | | | | | [address] | | + + + + + Care Team Providers + +------+ + | Care Event Promoter Name | Role | Phone | + [...] + + | 01/24/ | Telephone | [facility] | Matthew Shukla MD | Results, Pathology | | 2019 | | GASTROENTEROLOGY | [address] [facility] | | | | | [address] [facility] | [place], [place] | | | | | [address] [place], [place] | [address] | | | | | [address] | [phone] | | | | | [phone] | | | +--------+ + + + [...]
--- OUTSIDE RECORDS SUMMARY | ~2019-10-14 | XMS | Encounter Summary ---
Demographics + + + | Address | [address] | | | [place] [address] | + + + | Home Phone | | + + + | Preferred Language | Unknown | + + + | Marital Status | | + + + | Rastafari Affiliation | NRP | + + + [...] + | Matthew Ramirez | CHRIS | [address] | | | | | [place] | | | | | [address] | | + + + + + | Nella Lowery ECON | Unknown | | + + + + + Care Team Providers + +------+ + | Care Video Game Creator Name | Role | Phone | + [...] | | | Ave Mail Code: | [place], [place] | | | | | [facility] | [address] | | | | | and Healing, | [phone] | | | | | [address] | | | | | | [place], [place] | | | | | | [address] | | | | | | [phone] | | | +--------+ + + + [...]
--- OUTSIDE RECORDS SUMMARY | ~2019-10-14 | XMS | Encounter Summary ---
Demographics + + + | Address | [address] | | | [place] [address] | + + + | Home Phone [...] | Author | [facility] | | | and Nenoana | + + + | Organization | [facility] | | | and Nenoana [...] + | Matthew Ramirez | ECON | [address] | | | | | [place] | | | | | [address] | | + + + + + Care Team Providers + +------+ + | Care Solar Resource Assessor Name | Role | Phone | + [...] | | | [place], [place] | [place] [address] | | | | | [address] | [phone] | | | | | [phone] | | | +--------+---------+ + + + [...] Care Everywhere.Foot Surgery: Maurice pace Fifth Toe (Colombian)Foot Surgery: Flexible and Rigid Hammertoes (Colombian)Mallet, Hammer , and Claw Toes, Treating (Colombian)Mallet, Hammer, and Claw Toes, What Are (Colombian)document ed in this encounter Medications at Time [...]
--- OUTSIDE RECORDS SUMMARY | ~2019-10-14 | XMS | Encounter Summary ---
Demographics + + + | Address | [address] | | | [place] [address] | + + + | Home Phone [...] + | Matthew Ramirez | CHRIS | [address] | | | | | [place] | | | | | [address] | | + + + + + | Nella Haque | ECON | Unknown | | + + + + + Care Team Providers + +------+ + | Care Lead Technical Writer Name | Role | Phone | + [...] Ron Villalobos | | | | | [facility] | [place], [place] | | | | | for Health and | [address] | | | | | Healing [address] | [phone] | | | | | Ave [place], [place] | | | | | | [address] | | | | | | [phone] | | | +--------+ + + + [...]
--- OUTSIDE RECORDS SUMMARY | ~2019-10-14 | XMS | Encounter Summary ---
Demographics + + + | Address | [address] | | | [place] [address] | + + + | Home Phone [...] + | Matthew Ramirez | CHRIS | [address] | | | | | [place] | | | | | [address] | | + + + + + | Nella Lowery ECON | Unknown | | + + + + + Care Team Providers + +------+ + | Care Lead Mechanical Engineer Name | Role | Phone [...] | | | Ave Mail Code: | [place], [place] | | | | | [facility] | [address] | | | | | and Healing, | [phone] | | | | | [address] | | | | | | [place], [place] | | | | | | [address] | | | | | | [phone] | | | +--------+ + + + [...]
--- OUTSIDE RECORDS SUMMARY | ~2019-10-14 | XMS | Clinical Summary ---
Demographics + + + | Address | [address] | | | [place] [address] | + + + | Home Phone [...] + | Author | [facility] | | | and Neno[place] | + + + | Organization | [facility] | [...] + | Matthew Ramirez | ECON | [address] | | | | | [place] | | | | | [address] | | + + + + + Care Team Providers + +------+ + | Care Instructor Ground Services Name | Role | Phone | [...] Repeat colonoscopy January 26, 2018 | | ([facility]) notable for a tubular adenoma.5. Admit [facility], October 18, 2017 | | for partial small bowel obstruction. CT scan of abdomen/pelvis | | with contrast demonstrated small bowel obstruction. Symptoms | | resolved with conservative management.6. Presentation on July | | 2018 with abdominal pain, nausea and one episode of vomiting. | | CT abdomen/pelvis with contrast August 05, 2018 at [place] | | [facility] in [facility] demonstrated no acute inflammatory | | changes in the abdomen or pelvis.7. EGD/ Colonoscopy with random | | biopsies by Dr. Shukla, [facility] on December 17, 2018; Specimen # | | [id number] ([facility]). "A-Mucosa, stomach, | | biopsy-infiltrating gastric adenocarcinoma." Specimens | | B-duodenum, C-antrum, D-gastroesophageal junction, E-ascending | | colon, F-transverse colon, G-descending colon, and H, sigmoid | | colon were all negative for invasive malignancy.8. CT | | chest/abdomen/pelvis on December 31, 2018; No concerning gastric | | mass, no findings to suggest metastatic disease.9. Admit to [facility] | | on May 06, 2019 for small bowel obstruction, with laparotomy | | and extensive lysis of adhesions May 07, 2019 ([place]). | | Last Assessment & Plan: Ashly Ramirez is referred by | | Matthew Shukla Md [address] | | [address] for evaluation and management of gastric adenocarcinoma.I | | met with Ashly and her daughter Nella, on 01/05/2019 at the | | [facility]. The patient's history | | [...] pathological findings with Dr. 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 Dr. Shukla agreed that the lack of endoscopic or | | radiographic findings is atypical and agreed that endoscopic | | ultrasound is indicated for further evaluation. Dr. Shukla' office | | will co-ordinate endoscopic ultrasound with [facility] | | Group in [place]. I will follow up with Ashly Ramirez after | | her next procedure to review the results and to establish a plan | | of management. | + + + + + | Rectal bleeding | 12/16/2018 | + + + + + | Overview: Added automatically from request for surgery | | [id number] | + + + + + | Diarrhea, unspecified type | 12/16/2018 | + + + + + | Overview: Added automatically from request for surgery | | [id number] | + + + + + | Chronic abdominal pain | 12/16/2018 | + + + + + | Overview: Added automatically from request for surgery | | [id number] | + + + + + | Benzodiazepine dependence | 12/16/2018 | + + + + + | Overview: Added automatically from request for surgery | | [id number] | + + + + + | Narcotic dependence, episodic use | 12/16/2018 | + + + + + | Overview: Added automatically from request for surgery | | [id number] | + + + + + | LUQ pain | 12/16/2018 | + + + + + | Overview: Added automatically from request for surgery | | [id number] | + + + + + | Alternating constipation and diarrhea | 12/16/2018 | + + + + + | Overview: Added automatically from request for surgery | | [id number] | + + + + + | Hematochezia | 12/16/2018 | + + + + + | Overview: Added automatically from request for surgery | | [id number] | + + + + + | Weight loss, unintentional | 12/16/2018 | + + + + + | Overview: Added automatically from request for surgery | | [id number] | + + + + + | [...] | + + + + | INFLUENZA, [id number], | 04/29/2009 | | | UNSPECIFIED | [...] | Left: | CONMED | | | [phone] | | on 07/04/2017 by Prakash, | | Toe | JOHN- 50230 | | | 17919 | | Jose Sanon DPM at [facility] | | | | | | /[address] | | [facility] | | | | | | 185661 | | | | | | | | 425287 | | | | | | | | 429638 | | | | | | | | 417052 | | | | | | | | 064508 | | | | | | | | | | | | | | | | /46343 | | | | | | | | 6 | + +------+--------+ +--------+--------+--------+ | .045 C-WireImplanted: Qty: 1 | | Left: | CONMED | | | [id number] | | on 07/04/2017 by Prakash, | | Toe | CONMED | | | 31005 | | [facility] | | | JOHN. | | | /[address] | | [facility] | | | | | | 439651 | | | | | | | | 326487 | | | | | | | | 716039 | | | | | | | | 331208 | | | | | | | | 651897 | | | | | | | | | | | | | | | | /19143 | | | | | | | | 7 | + +------+--------+ +--------+--------+--------+ | .045 C-WireImplanted: Qty: 1 | | Left: | CONMED | | | [id number] | | on 07/04/2017 by Prakash, | | Toe | CONMED | | | 88685 | | Jose Sanon DPM at [facility] | | | JOHN. | | | /[address] | | [facility] | | | | | | 505164 | | | | | | | | 434487 | | | | | | | | 663224 | | | | | | | | 212664 | | | | | | | | 319307 | | | | | | | | | | | | | | | | /95074 | | | | | | | | 6 | + +------+--------+ +--------+--------+--------+ | Pip DartImplanted: Qty: 1 on | | Right: | ARTHREX | | 06/11/ | AR-415 | | 02/13/2018 by Jose Randall | | Toe | ARTHREX | | 2021 | 5PS-30 | | JACKIE Sanon at [facility] | | | INC. | | | 10 | | [facility] | | | | | | /+$$80 | | | | | | | | [id number] | | | | | | | | 478015 | | | | | | | | 77U | | | | | | | | /61858 | | | | | | | | 817 | + +------+--------+ +--------+--------+--------+ | Pip Trveor Implanted: Qty: 1 on | | Right: | ARTHREX | | 11/08/ | AR-415 | | 02/13/2018 by Prakash, | | Toe | ARTHREX | | 2022 | 4PS-30 | | Jose Sanon DPM at [facility] | | | INC. | | | 10 | | [facility] | | | | | | /+$$80 | | | | | | | | [id number] | | | | | | | | 830808 | | | | | | | | 47$ | | | | | | | | /64054 | | | | | | | [...] Toe | ARTHREX | | 2020 | /[id number] | | Qty: 1 on 02/13/2018 at [facility] | | | INC. | | | [id number] | | [facility] | | | | | | 408171 | | | | | | | | 595582 | | | | | | | | 825654 | | | | | | | | 320713 | | | | | | | | 761 | | | | | | | | /16794 | | | | | | | [...] + +--------+ | MEDICARE | MEDICA | [id number] | 10/11/19 | [phone] | | Medica | | | RE | | 04-Pre | 5 | | re | | | PART A | | sent | | | | | | AND B | | | | | | + +--------+ +--------+ + +--------+ | MODA | MODA | [id number] | 05/12/19 | [phone] | [address] | Indemn | | | HEALTH | | 17-Pre | 9 | [phone] | ity | | | MDCR | | sent | | [place], | | | | [place] | | | | [place] [address] | | + +--------+ +--------+ + +--------+ | MEDICARE | MEDICA | [id number] | 10/11/19 | [phone] | | Medica | | | RE | | 04-Pre | 5 | | re | | | PART A | | sent | | | | | | AND B | | | | | | + +--------+ +--------+ + +--------+ | MODA | MODA | [id number] | 05/12/19 | [phone] | [address] | Indemn | | | HEALTH | | 19-Pre | 9 | [address] | ity | | | MDCR | | sent | | [place], | | | | [place] | | | | [place] [address] | | + +--------+ +--------+ + +--------+ + +--------+ +--------+ + + | Guarantor Name | Accoun | Relation to | Date | Phone | Billing Address | | | t Type | Patient | of | | | | | | | | | | + +--------+ +--------+ + + | Ashly Ramirez | Person | Self | [birth year] | [address] | | | al/Fam | | 1941 | [phone] | [place], [place] | | | amrik | | | 9 (Home) | [address] | + +--------+ +--------+ + + | Ashly Ramirez | Person | Self | [birth year] | | [address] | | | al/Fam | | 1941 | [phone] | [place], [place] | | | amrik | | | 9 (Home) | [address] | + +--------+ +--------+ + + Advance Directives + + + + + | Type | Date Recorded | Patient | Explanation | | | | Gta | | + + + + + | Power of | | | | | Shop Technician | | | | + + + [...]
--- OUTSIDE RECORDS SUMMARY | ~2019-10-14 | XMS | Encounter Summary ---
Demographics + + + | Address | [address] | | | [place] [address] | + + + | Home Phone [...] | Author | [facility] | | | and Nenoana | + + + | Organization | [facility] [...] + | Matthew Ramirez | CHRIS | [address] | | | | | [place] | | | | | [address] | | + + + + + Care Team Providers + +------+ + | Care Corrosion Prevention Metal Sprayer Name | Role | Phone | + +------+ + PCP | Unavailable | + +------+ + Encounter Details +--------+ + + + + | Date | Type | Department | Care Team | Description | +--------+ + + + + | 03/28/ | Hospital | [facility] | | | | 1996 | Encounter | [facility] | | | | | | [address] | | | | | | [place] | | | | | | [address] | | | | | | [phone] | | | +--------+ + + + [...]
--- OUTSIDE RECORDS SUMMARY | ~2019-10-14 | XMS | Encounter Summary ---
Demographics + + + | Address | [address] | | | [place] [address] | + + + | Home Phone [...] | [facility] | | | and Nenoana | + + + | Organization | [facility] | | [...] + | Matthew Ramirez | ECON | [address] | | | | | [place] | | | | | [address] | | + + + + + Care Team Providers + +------+ + | Care Butter Wrapper Name | Role | Phone | + [...] | | ma (HCC) | [address] | [place] | | | | | | [place] | [place], | | | | | | [address] | [place] [address] | | | | | | Phone: | Phone: | | | | | | [phone] | [phone] | | | | | | Fax: | Fax: | | | | | | [phone] | [phone] | +--------+ + + + + + [...] [address] | | | | | bhargav ([facility]) | [address] | [address] | | | | | | [place], [place] | [place], | | | | | | [address] | [place] [address] | | | | | | Phone: | Phone: | | | | | | [phone] | [phone] | | | | | | Fax: | Fax: | | | | | | [phone] | [phone] | +--------+ + + + + + Encounter Details +--------+ + + + + | Date | Type | Department | Care Team | Description | +--------+ + + + + | 01/05/ | Hospital | [facility] | Arpan, | Gastric | | 2019 | Encounter | [facility] MED[facility] | Luis Richards MD [address] | adenocarcinoma | | | | [facility] [address] [place] | (HCC); Malignant | | | | [address] [place] | [place] [address] | neoplasm of | | | | [place] [address] | [phone] | overlapping sites of | | | | [phone] | | stomach (HCC) | +--------+ + [...] adenocarcinoma (HCC) | starting 01/05/2019 | | ([facility]) | | | | until [...]
--- OUTSIDE RECORDS SUMMARY | ~2019-10-14 | XMS | Encounter Summary ---
Demographics + + + | Address | [address] | | | [place] [address] | + + + | Home Phone | | + + + | Preferred Language | Unknown | + + + | Marital Status | | + + + | Yarsanism Affiliation | NRP | + + + [...] + | Matthew Ramirez | CHRIS | [address] | | | | | [place] | | | | | [address] | | + + + + + | Nella Haque | ECON | Unknown | | + + + + + Care Team Providers + +------+ + | Care Sound Designer Name | Role | Phone | [...] | | | | | stress | [place], [place] | [place], [place] | | | | | incontinence | [address] | [address] | | | | | Procedures | Phone: | Phone: | | | | | REQUEST TO | [phone] | [phone] | | | | | SURGERY | Fax: | Fax: | | | | | [place] | [phone] | [phone] | | | | | [place] | [...] + + | 11/29/ | Office | [facility] | Avis Rios | Postop check | | 2010 | Visit | [facility] [address] | MD Gillian [address] | (Primary Dx) | | | | [address] | [address] | | | | | [address] | [place], [place] | | | | | [place], [facility] floor | [address] | | | | | [place], [place] | [phone] | | | | | [address] | | | | | | [phone] | | | +--------+---------+ + + + [...]
--- OUTSIDE RECORDS SUMMARY | ~2019-10-14 | XMS | Encounter Summary ---
Demographics + + + | Address | [address] | | | [place] [address] | + + + | Home Phone | | + + + | Preferred Language | Unknown | + + + | Marital Status | | + + + | Adventist Affiliation | NRP | + + + | Race | White | + + + | Ethnic Group | Not or | + + + Author + + + | Author | [facility] | + + + | Organization | [facility] | + + + | Address | Unknown | + + + | Phone | Unavailable | + + + Support + + + + + | Name | Relationship | Address | Phone | + + + + + | Matthew Ramirez | CHRIS | [address] | | | | | [place] | | | | | [address] | | + + + + + | Nella Haque | ECON | Unknown | | + + + + + Care Team Providers + +------+ + | Care Plant Engineering Supervisor Name | Role | Phone | [...] Clinics at S | [address] [facility] | | | | | [facility] | [place], [place] | | | | | [facility] and | [address] | | | | | Healing [address] | [phone] | | | | | Ave [place], [place] | | | | | | [address] | | | | | | [phone] | | | +--------+--------+ + + + [...]
--- OUTSIDE RECORDS SUMMARY | ~2019-10-14 | XMS | Encounter Summary ---
Demographics + + + | Address | [address] | | | [place] [address] | + + + | Home Phone [...] | Author | [facility] | | | and Nenoana | + + + | Organization | [facility] | [...] + | Matthew Ramirez | ECON | [address] | | | | | [place] | | | | | [address] | | + + + + + Care Team Providers + +------+ + | Care Asset Protection Associate Name | Role | Phone | [...] | | | | | | | IA REPAIR | | | | | | [...] Encounter | HOSPITAL OR INTRA OP | AJCKIE Sanon [address] | | | | | [address] [place] | [facility] [place], | | | | | [place], [place] | [place] [address] | | | | | [address] | [phone] | | | | | [phone] | | | +--------+ + + + [...]
--- OUTSIDE RECORDS SUMMARY | ~2019-10-14 | XMS | Encounter Summary ---
Demographics + + + | Address | [address] | | | [place] [address] | + + + | Home Phone [...] Author | [facility] | | | and Nenoana | + + + | Organization | [facility] | | [...] + | Matthew Ramirez | ECON | [address] | | | | | [place] | | | | | [address] | | + + + + + Care Team Providers + +------+ + | Care Ground Support Equipment Assembler Name | Role | Phone | [...] | | [address] | [place] [address] | | | | | [address] | | | | | | [phone] | | | +--------+ + + + [...]
--- OUTSIDE RECORDS SUMMARY | ~2019-10-14 | XMS | Encounter Summary ---
Demographics + + + | Address | [address] | | | [place] [address] | + + + | Home Phone [...] + | Matthew Ramirez | CHRIS | [address] | | | | | [place] | | | | | [address] | | + + + + + | Nella Haque | ECON | Unknown | | + + + + + Care Team Providers + +------+ + | Care Business Objects Developer Name | Role | Phone | [...] | | | Ave Mail Code: | [place], [place] | | | | | [facility] | [address] | | | | | and [place], | [phone] | | | | | Building [address] | | | | | | [place], [place] | | | | | | [address] | | | | | | [phone] | | | +--------+ + + + [...]
--- OUTSIDE RECORDS SUMMARY | ~2019-10-14 | XMS | Encounter Summary ---
Demographics + + + | Address | [address] | | | [place] [address] | + + + | Home Phone [...] Author | [facility] | | | and Nenoana | + + + | Organization | [facility] | | | and Nenoana [...] + | Matthew Ramirez | ECON | [address] | | | | | [place] | | | | | [address] | | + + + + + Care Team Providers + +------+ + | Care It Software Engineer Name | Role | Phone | [...] | | Disease of | | MD uSkumar | | | | | stomach | | [address] | | | | | Disease of | | [address] | | | | | stomach | | [place] | | | | | [K31.9] | | [address] Phone: | | | | | Procedures | | [phone] | | | | | ID | | Fax: | | | | | ESOPHAGOGAST | | [phone] | | | | | RODUODENOSCO | | | | | | | PY TRANSORAL | | | | | | | DIAGNOSTIC | | | | | | | ID EDG US | | | | | [...] + + | 01/13/ | Hospital | [facility] | Sukumar Stevenson MD | 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 | Encounter | [facility] | [address] [place] | of overlapping sites | | | | INTRA OP [address] | [address] [place] | of stomach (HCC) | | | | [address] [place] | [address] | | | | | [address] | | | | | | [phone] | | | +--------+ + + + [...] | | | LABORATORY | | Acct: [id number] Location: | [facility] | | [facility]; [facility] MEDICAL PROCEDURE UNIT POOL; [facility] | | | MEDICAL PROCEDURE UNIT POOL | | | Case #: [id number] Ordering: | | | SUKUMAR STEVENSON MD Client: [facility] | | | [facility] Copy To: | | | Printed: 01/20/2019 09:40 PDT | | | SURGICAL PATHOLOGY FINAL REPORTCollected: | | | Received: | | | Responsible Pathologist:01/13/2019 12:45 PDT | | | 01/13/2019 13:25 PDT [facility]ERFORMERLY [facility] | | | DIAGNOSIS:A. Gastric [...] | | | Mild inactive chronic gastritis.[facility] 01/14/19 01:36 pmVerified | | | by: ANNABELLE FULLER MDVerify Date: 01/20/2019 09:40 [facility] | | | [facility] [address] | | | SURGICAL PATHOLOGY FINAL REPORTCollected: [...] controls stain appropriately.As a part of our senior quality assurance specialist | | | policy, this case has [...] and their performance characteristics determined by [facility]. This test is used for clinical | | | purposes. It should not be regarded as investigational or for | | | research. [facility] is certified under the Clinical | [...] + | [facility] | [address] | [place] [address] | | | [facility] | | | | | LABORATORY EZE | | | | + + + + + EUS Upper (01/13/2019 11:39 AM PDT) + + | Specimen | + + | | + + + + + | Narrative | Performed At | + + + | [facility] | [address] | | [facility] | PROVATION | | CenterGI | | | Patient Name: Ashly Ramirez Procedure | | | Date: 01/13/2019 11:39 AMMRN: [id number] | | | of : 1940 | [...] AMNumber | | | of Addenda: 0 [facility] - | | | Endoscopy Services | | | | | |SUKUMAR STEVENSON MD | | |01/13/2019 1:07:25 PM | | |This report has been signed electronically. | | | | | |Note Initiated On: 01/13/2019 11:39 AM | | |Number of Addenda: 0 | | | | | | [facility] | | + + [...] | TRACEMASTER | | Duration:172 msP Horizontal Ulmer:28 degP Front Ulmer:60 degQ Onset:512 | | | msQRSD Interval:136 msQT Interval:448 msQTcB:477 msQTcF:467 msQRS | | | Horizontal Ulmer:150 degQRS Ulmer:-35 degI-40 Horizontal Ulmer:34 degI-40 | | | Front Ulmer:74 degT-40 Horizontal Ulmer:151 degT-40 Front Ulmer:-77 degT | | | Horizontal Ulmer:8 degT Wave Ulmer:51 degS-T Horizontal Ulmer:21 degS-T | | | Front Ulmer:83 degSeverity:- ABNORMAL ECG -INTERP:SINUS | | | RHYTHMINTERP:VENTRICULAR PREMATURE COMPLEXINTERP:RBBB AND | | | LAFBINTERP:LEFT VENTRICULAR HYPERTROPHYElectronically signed by: | | | ANDREAS MAXWELL 01-18-2019 07:24:33 | | |QTcF:467 ms | | |QRS Horizontal Ulmer:150 deg | | |QRS Ulmer:-35 deg | | |I-40 Horizontal Ulmer:34 deg | | |I-40 Front Ulmer:74 deg | | |T-40 Horizontal Ulmer:151 deg | | |T-40 Front Ulmer:-77 deg | | |T Horizontal Ulmer:8 deg | | |T Wave Ulmer:51 deg | | |S-T Horizontal Ulmer:21 deg | | |S-T Front Ulmer:83 deg | | |Severity:- ABNORMAL ECG - [...] + + + + + | [facility] | [address] | [place] [address] | [phone] | + + + + + POC [...] | POC | Performed by [facility] [address] | | SACRED | | | | [address] [place] | | HEART | | | | [address] | | MEDICAL | | | | [...] + + | [facility] | [address] | [place] [address] | | | [facility] | | | | | LABORATORY [...] scheduled: AC, NPO, Daytime | | | 5818-0757 Use NIGHT DOSE for | | | doses scheduled: HS, 3AM, | | | Nighttime 7601-1370 If the BG is | | | [...]
--- OUTSIDE RECORDS SUMMARY | ~2019-10-14 | XMS | Encounter Summary ---
Demographics + + + | Address | [address] | | | [place] [address] | + + + | Home Phone [...] | Author | [facility] | | | and Nenoana | + + + | Organization | [facility] | | [...] + | Matthew Ramirez | ECON | [address] | | | | | [place] | | | | | [address] | | + + + + + Care Team Providers + +------+ + | Care Health Care Marketing Specialist Name | Role | Phone | [...] | [address] | [place] [address] | | | | | [address] | | | | | | [phone] | | | +--------+ + + + [...]
--- OUTSIDE RECORDS SUMMARY | ~2019-10-14 | XMS | Encounter Summary ---
Demographics + + + | Address | [address] | | | [place] [address] | + + + | Home Phone [...] Author | [facility] | | | and Nenoana | + + + | Organization | [facility] [...] + | Matthew Ramirez | CHRIS | [address] | | | | | [place] | | | | | [address] | | + + + + + Care Team Providers + +------+ + | Care Building Architectural Designer Name | Role | Phone | + +------+ + PCP | Unavailable | + +------+ + Encounter Details +--------+ + + + + | Date | Type | Department | Care Team | Description | +--------+ + + + + | [facility]12/ | [facility] | | | [facility] - | Encounter | [facility] | | | | | | [address] | | | | 04/17/ | | [place] [address] | | | | 2005 | | [phone] | | | +--------+ + + + [...]
--- OUTSIDE RECORDS SUMMARY | ~2019-10-14 | XMS | Encounter Summary ---
Demographics + + + | Address | [address] | | | [place] [address] | + + + | Home Phone [...] + | Matthew Ramirez | CHRIS | [address] | | | | | [place] | | | | | [address] | | + + + + + | Nella Haque | ECON | Unknown | | + + + + + Care Team Providers + +------+ + | Care Top Stop Attacher Name | Role | Phone | + +------+ + | Long Copeland MD | PCP | | + +------+ + Encounter Details +--------+ + + + + | Date | Type | Department | Care Team | Description | +--------+ + + + + | 01/28/ | Procedure | Radiology/Imaging | | | | 2019 | Pass | Lab at [facility] [address] | | | | | | [address] Mailcode: | | | | | | [facility] | | | | | | Health and Healing, | | | | | | [place] [address] [facility] | | | | | | [place], [place] | | | | | | [address] | | | | | | [phone] | | | +--------+ + + + [...]
--- OUTSIDE RECORDS SUMMARY | ~2019-10-14 | XMS | Encounter Summary ---
Demographics + + + | Address | [address] | | | [place] [address] | + + + | Home Phone [...] Author | [facility] | | | and Nenoana | + + + | Organization | [facility] | | | and Nenoana [...] + | Matthew Ramirez | ECON | [address] | | | | | [place] | | | | | [address] | | + + + + + Care Team Providers + +------+ + | Care Emergency Crew Supervisor Name | Role | Phone | [...] + + | 01/20/ | Telephone | [facility] | Matthew Shukla MD | Results, Pathology | | 2019 | | GASTROENTEROLOGY | [address] [facility] | | | | | [address] [facility] | [place], [place] | | | | | [address] [place], [place] | [address] | | | | | [address] | [phone] | | | | | [phone] | | | +--------+ + + + [...]
--- OUTSIDE RECORDS SUMMARY | ~2019-10-14 | XMS | Encounter Summary ---
Demographics + + + | Address | [address] | | | [place] [address] | + + + | Home Phone [...] Author | [facility] | | | and Nenoana | + + + | Organization | [facility] | | | and Nenoana [...] + | Matthew Ramirez | ECON | [address] | | | | | [place] | | | | | [address] | | + + + + + Care Team Providers + +------+ + | Care Belting Cutter Name | Role | Phone | [...] | | | unspecified | | [place] [address] | | | | | type | | Phone: | | | | | Chronic | | [phone] | | | | | abdominal | | Fax: | | | | | pain | | [phone] | | | | | Benzodiazepi | [...] + + | 12/17/ | Hospital | [facility] | Matthew Shukla MD | Rectal bleeding; | | 2019 | Encounter | [facility] | [address] | Diarrhea, | | | | [address] | [place] | unspecified type; | | | | [place] | [address] | Chronic abdominal | | | | [address] | [phone] | pain; Benzodiazepine | | | | [phone] | | dependence (HCC); | | | [...] | | | | | episodic use ([facility]) | | | | | | [...] 12/17/2018 | PROVATION | | 3:06 PMMRN: [id number] #: [id number] of : | | | 1940dmit Type: [...] | | | the anesthesiologist and the avionics test technician in the pre-procedure | | | [...] PMScope Out: 3:26:19 | | | PM [facility], [address] [place] [address] | | | [place] [address] | | | - Await pathology results. [...] |Scope Out: 3:26:19 PM | | | [facility], [address] [place] [address] | | | [address] | | + + -+ + +---------+ [...] 12/17/2018 | PROVATION | | 3:04 PMMRN: [id number] #: [id number] of : | | | 9Admit Type: AmbulatoryAge: 78Room: Endo Room 2Gender: | | | FemaleNote Status: FinalizedAttending MD: Matthew Shukla , | | | MDProcedure: ColonoscopyIndications: Abdominal | | | pain in the left upper quadrant, Hematochezia, | | | Chronic diarrhea, Weight lossProviders: Matthew Rosales | | | MD Gayla, Rina Edouard RN, Conrado Kang, [facility], | | | Devon Murdock MD (Anesthesia [...] the anesthesiologist and the | | | avionics test technician in the pre-procedure area in the [...] | | | evaluated using the BBPS (Hersey Bowel Preparation Scale) with | | | [...] PMScope Out: | | | 3:55:04 PM [facility], [address] [facility], | | | [place] [address] | | | - Await pathology results. [...] |Scope Out: 3:55:04 PM | | | [facility], [address] [facility], [place] | | | [address] | | + + -+ + +---------+ + + | Performing | Address | City/State/[facility]ode | Phone Number | | Organization [...] | COMMENT: A -- As part of [facility]' Quality Improvement | | | Program, this [...] | and its performance characteristics determined by [facility]. | | | It has not been cleared or approved by the U.S. Food and Drug | | | Administration. The FDA has determined that such clearance or | | | approval is not necessary. This test is used for clinical purposes. | | | It should not be regarded as investigational or for research. | | | [facility] is certified under the Clinical Laboratory | | | Improvement Amendments of 1988 (CLIA) as qualified to perform high | | | complexity clinical laboratory testing. PERFORMING LABORATORY: | | | The technical component was performed by [facility], [address] | | | [place] [address] (Packer Fuser: Marilyn Dowell MD; | | | CLIA# [id number]). Professional interpretation was performed by | | | [facility], [address] | | | [address] [place] [address] (Packer Fuser: Guevara Ernandez | | | ; CLIA# [id number]). ADDITIONAL NOTES: Immunohistochemical | | | and/or in situ hybridization studies were performed on this case with | | | the appropriate positive controls that react as expected. This test | | | was developed and its performance characteristics determined by | | | [facility]. It has not been cleared or approved by the U.S. | | | Food and Drug Administration. The FDA has determined that such | | | clearance or approval is not necessary. This test is used for | | | clinical purposes. It should not be regarded as investigational or | | | for research. [facility] is certified under the Clinical | | | Laboratory Improvement Amendments of 1988 (CLIA) as qualified to | | | perform high complexity clinical laboratory testing. PERFORMING | | | LABORATORY: The technical component was performed by [facility] | | | [employer], [address] [place] [address] (Packer Fuser: | | | Marilyn Dowell MD; CLIA# [id number]). Professional interpretation was | | | performed by [facility], [address] [place] [address] | | | [place] [address] (Packer Fuser: Darien Kapoor D.O.; CLIA#: | | | [id number]). REASON FOR ADDENDUM: To add results of [...] the FDA-approved HER-2 Pathway is performed at [facility] | | | [place], on accession #[id number] from at the [...] the Vysis PathVysion kit was performed at [facility] | | | [place] The assay has not been validated [...] interpretation was | | | performed by [facility], [address] [place] [address] | | | [place] [address] (Packer Fuser: Everardo HillOPeggy; [facility]#: | | | [id number]). Diagnostician: Guevara Ernandez MD Pathologist | | [...] ONCE PRN, | | | Wheezing, Starting [facility] 12/17/18 at | | | 1346, For 1 dose, Pre-op | | + +---+ | | | + +---+ | albuterol-ipratropium 2.5-0.5 | | | mg/3 mL nebulizer solution 3 mL | | | 3 mL, Nebulization, ONCE PRN, | | | Wheezing, Shortness of Breath, | | | Starting [facility] 12/17/18 at 1615, For | | [...] glucose < 50, | | | Starting [facility] 12/17/18 at 1346, | | | [...]
--- OUTSIDE RECORDS SUMMARY | ~2019-10-14 | XMS | Encounter Summary ---
Demographics + + + | Address | [address] | | | [place] [address] | + + + | Home Phone | | + + + | Preferred Language | Unknown | + + + | Marital Status | | + + + | Mormon Affiliation | Unknown | + + + | Race | Unknown | + + + | Ethnic Group | Unknown | + + + Author + + + | Author | [facility] | | | and Nenoana | + + + | Organization | [facility] | | | [...] + | Matthew Ramirez | ECON | [address] | | | | | [place] | | | | | [address] | | + + + + + Care Team Providers + +------+ + | Care Process Description Writer Name | Role | Phone | [...] | findings on | Luis Richards, | [facility] | | | | | diagnostic | MD [address] | [address] | | | | | imaging of | [address] | [address]VE | | | | | liver and | [place], | [place], [place] | | | | | biliary | [place] [address] | [address] | | | | | tract | Phone: | Phone: | | | | | Metastatic | [phone] | [phone] | | | | | breast | Fax: | | | | | | cancer (HCC) | [phone] | | | | | | Procedures [...] | | | ON[facility]OGY CLINIC [address] | [facility] | | | | | [facility] | [place] [address] | | | | | [place] [address] | [phone] | | | | | [phone] | | | +--------+ + + + [...]
--- OUTSIDE RECORDS SUMMARY | ~2019-10-14 | XMS | Encounter Summary ---
Demographics + + + | Address | [address] | | | [place] [address] | + + + | Home Phone [...] + | Matthew Ramirez | CHRIS | [address] | | | | | [place] | | | | | [address] | | + + + + + | Nella Haque | ECON | Unknown | | + + + + + Care Team Providers + +------+ + | Care Agribusiness Internship Name | Role | Phone | [...] | | | | ma (HCC) | [place], | | | | | | Procedures | [place] | | | | | | CT ABDOMEN | [address] | | | | | | AND PELVIS W | Phone: | | | | | | IV CONTRAST | [phone] | | | | | | | Fax: | | | | | | | [phone] | | + +--------+ + + + [...] | | | | ma (HCC) | [place], | | | | | | Procedures | [place] | | | | | | [place] | [address] | | | | | | CONTRAST | Phone: | | | | | | | [phone] | | | | | | | Fax: | | | | | | | [phone] | | + +--------+ + + + + Encounter Details +--------+ + + + + | Date | Type | Department | Care Team | Description | +--------+ + + + + | 01/28/ | Inspector Timers | Surgical Oncology | Cristel Galicia MD | 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
--- OUTSIDE RECORDS SUMMARY | ~2019-10-14 | XMS | Encounter Summary ---
Demographics + + + | Address | [address] | | | [place] [address] | + + + | Home Phone [...] | Author | [facility] | | | and Nenoana | + + + | Organization | [facility] [...] + | Matthew Ramirez | ECON | [address] | | | | | [place] | | | | | [address] | | + + + + + [...] | | ma (HCC) | [address] | [place] | | | | | | [place] | [place], | | | | | | [address] | [place] [address] | | | | | | Phone: | Phone: | | | | | | [phone] | [phone] | | | | | | Fax: | Fax: | | | | | | [phone] | [phone] | +--------+ + + + + + [...] W | | | | | bhargav ([facility]) | [address] | [place] | | | | | | [place], [place] | [place], | | | | | | [address] | [place] [address] | | | | | | Phone: | Phone: | | | | | | [phone] | [phone] | | | | | | Fax: | Fax: | | | | | | [phone] | [phone] | +--------+ + + + + + Encounter Details +--------+ + + + + | Date | Type | Department | Care Team | Description | +--------+ + + + + | 01/05/ | Hospital | [facility] | Arpan, | Gastric | | 2019 | Encounter | [facility] | Luis Richards MD [address] | adenocarcinoma | | | | ONCOLOGY CLINIC [address] | [address] [place] | (HCC); Malignant | | | | [address] [place] | [place] [address] | neoplasm of | | | | [place] [address] | [phone] | overlapping sites of | | | | [phone] | | stomach (HCC) | +--------+ + [...] adenocarcinoma (HCC) | starting 01/05/2019 | [facility] | | | | until [...]
--- OUTSIDE RECORDS SUMMARY | ~2019-10-14 | XMS | Encounter Summary ---
Demographics + + + | Address | [address] | | | [place] [address] | + + + | Home Phone [...] + | Author | [facility] | | | and Nenoana | + + + | Organization | [facility] | | | and Nenoana [...] + | Matthew Ramirez | CHRIS | [address] | | | | | [place] | | | | | [address] | | + + + + + Care Team Providers + +------+ + | Care Production Recorder Name | Role | Phone | + +------+ + PCP | Unavailable | + +------+ + Encounter Details +--------+ + + + + | Date | Type | Department | Care Team | Description | +--------+ + + + + | 02/02/ | [facility] | | | [facility] | [facility] | [facility] | | | | | | [address] | | | | | | [place] | | | | | | [address] | | | | | | [phone] | | | +--------+ + + + [...]
--- OUTSIDE RECORDS SUMMARY | ~2019-10-14 | XMS | Encounter Summary ---
Demographics + + + | Address | [address] | | | [place] [address] | + + + | Home Phone [...] | [facility] | | | and Nenoana | + + + | Organization | [facility] | [...] + | Matthew Ramirez | ECON | [address] | | | | | [place] | | | | | [address] | | + + + + + Care Team Providers + +------+ + | Care Machine Adjuster Leader Case Trim Name | Role | Phone | + [...] | | | | | OR REPAIR | | | | | | [...] Event | HOSPITAL OR INTRA OP | PRELOAD SUPERVISOR [address] | | | | | [address] | [place] [address] | | | | | [place], [place] | [phone] | | | | | [address] | | | | | | [phone] | | | +--------+ + + + + Anesthesia Record + + + + + | Procedure Name | Responsible | Anesthesia Start | Anesthesia Stop Time | | | Anesthesiologist | Time | | + + + + + | CORRECTION | Mayank Honeycutt, | 07/04/17 0912 | 07/04/17 1022 | | MARSHA 2, 3, 4 | PRELOAD SUPERVISOR | | | | (Left Foot) | [...]
--- OUTSIDE RECORDS SUMMARY | ~2019-10-14 | XMS | Encounter Summary ---
Demographics + + + | Address | [address] | | | [place] [address] | + + + | Home Phone [...] + | Author | [facility] | | | and Nenoana | + + + | Organization | [facility] | | | [...] + | Matthew Ramirez | ECON | [address] | | | | | [place] | | | | | [address] | | + + + + + Care Team Providers + +------+ + | Care Inspector And Hand Packager Name | Role | Phone | + [...] + | 01/20/ | Telephone | [facility] | Matthew Shukla MD | Results, Pathology | | 2019 | | GASTROENTEROLOGY | [address] [facility] | | | | | [address] [facility] | [place], [place] | | | | | [address] [place], [place] | [address] | | | | | [address] | [phone] | | | | | [phone] | | | +--------+ + + + [...]
--- OUTSIDE RECORDS SUMMARY | ~2019-10-14 | XMS | Encounter Summary ---
Demographics + + + | Address | [address] | | | [place] [address] | + + + | Home Phone [...] + + | Author | [facility] | | | and [place]enoana | + + + | Organization | [facility] | | [...] + | Matthew Ramirez | ECON | [address] | | | | | [place] | | | | | [address] | | + + + + + Care Team Providers + +------+ + | Care Animal Daycare Provider Name | Role | Phone | + [...] + | 01/25/ | Telephone | [facility] | Arpan, | Family/caregiver | | 2019 | | [facility] | Luis Richards MD [address] | Concerns | | | | ONCOLOGY CLINIC [address] | [facility] | | | | | [address] [place] | [place] [address] | | | | | [place] [address] | [phone] | | | | | [phone] | | | +--------+ + + + [...]
--- OUTSIDE RECORDS SUMMARY | ~2019-10-14 | XMS | Encounter Summary ---
Demographics + + + | Address | [address] | | | [place] [address] | + + + | Home Phone [...] + + | Author | [facility] | + + + | Organization | [facility] | + + + | Address | Unknown | + + + | Phone | Unavailable | + + + Support + + + + + | Name | Relationship | Address | Phone | + + + + + | Matthew Ramirez | CHRIS | [address] | | | | | [place] | | | | | [address] | | + + + + + | Nella Haque | ECON | Unknown | | + + + + + Care Team Providers + +------+ + | Care Hospice Nurse Name | Role | Phone | + [...] (call back requested | | | | [facility] | [place], [place] | ) | | | | for Health and | [address] | | | | | Healing [address] | [phone] | | | | | [address] [place], [place] | | | | | | [address] | | | | | | [phone] | | | +--------+ + + + [...]
--- OUTSIDE RECORDS SUMMARY | ~2019-10-14 | XMS | Encounter Summary ---
Demographics + + + | Address | [address] | | | [place] [address] | + + + | Home Phone [...] + | Matthew Ramirez | CHRIS | [address] | | | | | [place] | | | | | [address] | | + + + + + | Nella Haque | ECON | Unknown | | + + + + + Care Team Providers + +------+ + | Care Melter Supervisor Electric Arc Furnace Name | Role | Phone | + [...] Ave | (Tamoxifen) | | | | [facility] | [place], [place] | | | | | [facility] and | [address] | | | | | Healing [address] | [phone] | | | | | [address] [place], [place] | | | | | | [address] | | | | | | [phone] | | | +--------+--------+ + + + [...]
--- OUTSIDE RECORDS SUMMARY | ~2019-10-14 | XMS | Encounter Summary ---
Demographics + + + | Address | [address] | | | [place] [address] | + + + | Home Phone [...] Author | [facility] | | | and [place]eno[place] | + + + | Organization | [facility] | | [...] + | Matthew Ramirez | ECON | [address] | | | | | [place] | | | | | [address] | | + + + + + Care Team Providers + +------+ + | Care Eating Disorder Specialist Name | Role | Phone | [...] | | | unspecified | | [place] [address] | | | | | type | | Phone: | | | | | Chronic | | [phone] | | | | | abdominal | | Fax: | | | | | pain | | [phone] | | | | | Benzodiazepi | [...] | | | | | | DE | | | | | | | ESOPHAGOGAST | | | | | | | RODUODENOSCO | | | | | | | PY TRANSORAL | | | | | | | DIAGNOSTIC | | | | | | | DE EGD | | | | | | | TRANSORAL | | | | | | | BIOPSY | | | | | | | SINGLE/MULTI | | | | | | | PLE DE | | | | | | | COLONOSCOPY | | | | | | | FLX DX | | | | | | | W/COLLJ SPEC | | | | | | | WHEN PFRMD | | | | | | | DE | | | | | | | COLONOSCOPY | | | | | | | W/BIOPSY | | | | | | | SINGLE/MULTI | | | | | | | PLE DE | | | | | | | COLSC FLX | | | | | | | W/RMVL OF | | | | | | | TUMOR POLYP | | | | | | | LESION SNARE | | | | | | | TQ DE | | | | | | | [...] + + | 12/17/ | Hospital | [facility] | Matthew Shukla MD | Rectal bleeding; | | 2019 | Encounter | MED CTR MP INTRA OP | [address] | Diarrhea, | | | | [address] | [place] | unspecified type; | | | | [place] | [address] | Chronic abdominal | | | | [address] | [phone] | pain; Benzodiazepine | | | | [phone] | | dependence (HCC); | | | [...] | | | | | episodic use ([facility]) | | | | | | [...] 12/17/2018 | PROVATION | | 3:06 PMMRN: [id number] #: [id number] of : | | | 1940dmit Type: [...] | | | the anesthesiologist and the hvac maintenance technician in the pre-procedure | | | [...] | | | PM [facility], [address] [place] [address] | | | [place] [address] | | | - Await pathology results. [...] PM | | | [facility], [address] [place] [address] | | | [address] | | + + -+ + +---------+ [...] 12/17/2018 | PROVATION | | 3:04 PMMRN: [id number] #: [id number] of : | | | 9Admit Type: AmbulatoryAge: 78Room: Endo Room 2Gender: | | | FemaleNote Status: FinalizedAttending MD: Matthew Shukla , | | | MDProcedure: ColonoscopyIndications: Abdominal | | | pain in the left upper quadrant, Hematochezia, | | | Chronic diarrhea, Weight lossProviders: Matthew Rosales | | | MD Gayla, Rina Edouard RN, Conrado Kang, [facility], | | | Devon Murdock MD [...] the anesthesiologist and the | | | hvac maintenance technician in the pre-procedure area in the [...] | | | evaluated using the BBPS (Biscoe Bowel Preparation Scale) with | | | [...] 3:55:04 PM [facility], [address] [facility], | | | [place] [address] | | | - Await pathology results. [...] PM | | | [facility], [address] [facility], [place] | | | [address] | | + + -+ + +---------+ + + | Performing | Address | City/State/[facility] Hospital[facility] | Phone Number | | Organization [...] | COMMENT: A -- As part of [facility]' Quality Improvement | | | Program, this portion of the case has been reviewed by another member | | | of our pathology staff with subspecialty training in gastrointestinal | | | pathology. Results called to Dr. Shukla office [facility]) 12/24/18 | | | 10:15 AM. Discussed [...] | and its performance characteristics determined by [facility]. | | | It has not been cleared or approved by the U.S. Food and Drug | | | Administration. The FDA has determined that such clearance or | | | approval is not necessary. This test is used for clinical purposes. | | | It should not be regarded as investigational or for research. | | | [facility] is certified under the Clinical Laboratory | | | Improvement Amendments of 1988 (CLIA) as qualified to perform high | | | complexity clinical laboratory testing. PERFORMING LABORATORY: | | | The technical component was performed by [facility], [address] | | | [place] [address] (Embroidery Machine Operator: Marilyn Dowell MD; | | | CLIA# [id number]). Professional interpretation was performed by | | | [facility], [address] | | | [address] [place] [address] (Embroidery Machine Operator: Guevara Ernandez | | | ; CLIA# [id number]). ADDITIONAL NOTES: Immunohistochemical | | | and/or in situ hybridization studies were performed on this case with | | | the appropriate positive controls that react as expected. This test | | | was developed and its performance characteristics determined by | | | [facility]. It has not been cleared or approved by the U.S. | | | Food and Drug Administration. The FDA has determined that such | | | clearance or approval is not necessary. This test is used for | | | clinical purposes. It should not be regarded as investigational or | | | for research. [facility] is certified under the Clinical | | | Laboratory Improvement Amendments of 1988 (CLIA) as qualified to | | | perform high complexity clinical laboratory testing. PERFORMING | | | LABORATORY: The technical component was performed by [facility] | | | [facility], [address] [place] [address] (Embroidery Machine Operator: | | | Marilyn Dowell MD; CLIA# [id number]). Professional interpretation was | | | performed by [facility], [address] [place] [address] | | | [place] [address] (Embroidery Machine Operator: Darien Kapoor D.O.; CLIA#: | | | [id number]). REASON FOR ADDENDUM: To add results of [...] the FDA-approved HER-2 Pathway is performed at [facility] | | | [place], on accession #[id number] from at [...] the Vysis PathVysion kit was performed at [facility] | | | [place]. The assay has not been [...] interpretation was | | | performed by [facility], [address] [place] [address] | | | [place] [address] (Embroidery Machine Operator: Everardo HillOPeggy; [facility]#: | | | [id number]). Diagnostician: Guevara Ernandez MD Pathologist | | [...] ONCE PRN, | | | Wheezing, Starting [facility] 12/17/18 at | | | 1346, For 1 dose, Pre-op | | + +---+ | | | + +---+ | albuterol-ipratropium 2.5-0.5 | | | mg/3 mL nebulizer solution 3 mL | | | 3 mL, Nebulization, ONCE PRN, | | | Wheezing, Shortness of Breath, | | | Starting [facility] 12/17/18 at 1615, For | | | [...] glucose < 50, | | | Starting [facility] 12/17/18 at 1346, | | | Repeat [...]
--- OUTSIDE RECORDS SUMMARY | ~2019-10-14 | XMS | Encounter Summary ---
Demographics + + + | Address | [address] | | | [place] [address] | + + + | Home Phone | | + + + | Preferred Language | Unknown | + + + | Marital Status | | + + + | Episcopalian Affiliation | NRP | + + + | Race | White | + + + | Ethnic Group | Not or | + + + Author + + + | Author | [facility] | + + + | Organization | [facility] | + + + | Address | Unknown | + + + | Phone | Unavailable | + + + Support + + + + + | Name | Relationship | Address | Phone | + + + + + | Matthew Ramirez | CHRIS | [address] | | | | | [place] | | | | | [address] | | + + + + + | Nella Haque | ECON | Unknown | | + + + + + Care Team Providers + +------+ + | Care Filteration Operator Name | Role | Phone | [...] [address] | | | | | [facility] | [place], [place] | | | | | for Health and | [address] | | | | | Healing [address] | [phone] | | | | | [address] [place], [place] | | | | | | [address] | | | | | | [phone] | | | +--------+ + + + [...]
--- OUTSIDE RECORDS SUMMARY | ~2019-10-14 | XMS | Encounter Summary ---
Demographics + + + | Address | [address] | | | [place] [address] | + + + | Home Phone [...] | Author | [facility] | | | and Nenoana | + + + | Organization | [facility] [...] + | Matthew Ramirez | ECON | [address] | | | | | [place] | | | | | [address] | | + + + + + Care Team Providers + +------+ + | Care Dance Hall Host/Hostess Name | Role | Phone | + [...] | | | | | | [place] REPAIR | | | | | | [...] HOSPITAL OR INTRA OP | JACKIE Sanon [address] | | | | | [address] [place] | [facility] [place], | | | | | [place], [place] | [place] [address] | | | | | [address] | [phone] | | | | | [phone] | | | +--------+ + + + [...]
--- OUTSIDE RECORDS SUMMARY | ~2019-10-14 | XMS | Encounter Summary ---
Demographics + + + | Address | [address] | | | [place] [address] | + + + | Home Phone [...] + | Matthew Ramirez | CHRIS | [address] | | | | | [place] | | | | | [address] | | + + + + + | Nella Haque | ECON | Unknown | | + + + + + Care Team Providers + +------+ + | Care Hair Worker Name | Role | Phone | [...] Amador | (Letrozole) | | | | [facility] | [facility] | | | | | [facility] and | [place], [place] | | | | | Healing [address] | [address] | | | | | [place], [place] | | | | | | [address] | | | | | | [phone] | | | +--------+--------+ + + + [...]
--- OUTSIDE RECORDS SUMMARY | ~2019-10-14 | XMS | Encounter Summary ---
Demographics + + + | Address | [address] | | | [place] [address] | + + + | Home Phone | | + + + | Preferred Language | Unknown | + + + | Marital Status | | + + + | Judaism Affiliation | NRP | + + + | Race | White | + + + | Ethnic Group | Not or | + + + Author + + + | Author | [facility] | + + + | Organization | [facility] | + + + | Address | Unknown | + + + | Phone | Unavailable | + + + Support + + + + + | Name | Relationship | Address | Phone | + + + + + | Matthew Ramirez | CHRIS | [address] | | | | | [place] | | | | | [address] | | + + + + + | Nella Haque | ECON | Unknown | | + + + + + Care Team Providers + +------+ + | Care Cotton Ball Bagger Name | Role | Phone | + [...] | | | | ma (HCC) | [place], | | | | | | Procedures | [place] | | | | | | [place] ABDOMEN | [address] | | | | | | AND PELVIS W | Phone: | | | | | | IV CONTRAST | [phone] | | | | | | | Fax: | | | | | | | [phone] | | + +--------+ + + + [...] | | | | ma (HCC) | [place], | | | | | | Procedures | [place] | | | | | | CT ABDOMEN | [address] | | | | | | AND PELVIS W | Phone: | | | | | | IV CONTRAST | [phone] | | | | | | | Fax: | | | | | | | [phone] | | + +--------+ + + + [...] | | | [address] Mailcode: | [place], [place] | | | | | [address] | [address] | | | | | Health and Healing, | [phone] | | | | | [address] | | | | | | Floor [facility] [place] | | | | | | [address] | | | | | | [phone] | | | +--------+ + + + [...] nostril | | | | | | Custar | once daily. | | | | [...] (H) | 0.6 - 1.1 mg/dL | WYYULI Bermudez [facility], | | | POC | | [...] + + | DANISHA FARIAS | [address] [facility] | [place] [address] | | | OF CARE TESTS | [...]
--- OUTSIDE RECORDS SUMMARY | ~2019-10-14 | XMS | Encounter Summary ---
Demographics + + + | Address | [address] | | | [place] [address] | + + + | Home Phone [...] + + + | Author | [facility] | + + + | Organization | [facility] | + + + | Address | Unknown | + + + | Phone | Unavailable | + + + Support + + + + + | Name | Relationship | Address | Phone | + + + + + | Matthew Ramirez | CHRIS | [address] | | | | | [place] | | | | | [address] | | + + + + + | Nella Haque | ECON | Unknown | | + + + + + Care Team Providers + +------+ + | Care Chief Lending Officer Name | Role | Phone | [...] | | | | ma (HCC) | [place], | | | | | | Procedures | [place] | | | | | | CT ABDOMEN | [address] | | | | | | AND PELVIS W | Phone: | | | | | | IV CONTRAST | [phone] | | | | | | | Fax: | | | | | | | [phone] | | + +--------+ + + + [...] | | | | ma (HCC) | [place], | | | | | | Procedures | [place] | | | | | | [place] | [address] | | | | | | CONTRAST | Phone: | | | | | | | [phone] | | | | | | | Fax: | | | | | | | [phone] | | + +--------+ + + + + Encounter Details +--------+ + + + + | Date | Type | Department | Care Team | Description | +--------+ + + + + | 01/28/ | Telephonic Rn | Surgical Oncology | Cristel Galicia MD | Gastric | | 2019 | | at [facility] [address] | [address] | adenocarcinoma (HCC) | | | | Ave Mail Code: | [place], [place] | (Primary Dx) | | | | [place] for [facility] | [address] | | | | | and Healing, | [phone] | | | | | [address] | | | | | | [place], [place] | | | | | | [address] | | | | | | [phone] | | | +--------+ + + + [...]
--- OUTSIDE RECORDS SUMMARY | ~2019-10-14 | XMS | Encounter Summary ---
Demographics + + + | Address | [address] | | | [place] [address] | + + + | Home Phone [...] | Author | [facility] | | | and Nenoana | + + + | Organization | [facility] | | [...] + | Matthew Ramirez | ECON | [address] | | | | | [place] | | | | | [address] | | + + + + + Care Team Providers + +------+ + | Care Chef Passenger Vessel Name | Role | Phone | + [...] | Gastric | [address] | [place] | | | | | adenocarcino | [facility], | [place], [place] | | | | | ma (HCC) | [place] | [address] | | | | | Procedures | [address] | Phone: | | | | | PET CT Skull | Phone: | [phone] | | | | | Base To Mid | [phone] | Fax: | | | | | Thigh | Fax: | [phone] | | | | | | [phone] | | +--------+--------+ + + + + [...] | Gastric | [address] | [place] | | | | | adenocarcino | [place], | [place], [place] | | | | | ma (HCC) | [place] | [address] | | | | | Procedures | [address] | Phone: | | | | | PET CT Skull | Phone: | [phone] | | | | | Base To Mid | [phone] | Fax: | | | | | Thigh | Fax: | [phone] | | | | | | [phone] | | +--------+--------+ + + + + Encounter Details +--------+ + + + + | Date | Type | Department | Care Team | Description | +--------+ + + + + | 02/18/ | Hospital | [facility] | Cristel Galicia MD | Tumor; Gastric | | 2019 | Encounter | MED CTR PET SCAN | [address] | adenocarcinoma (HCC) | | | | [address] [place] | [place], [place] | | | | | [place] [address] | [address] | | | | | [phone] | [phone] | | | | | | | [...] the common bile duct. | | | Vwrm-ps-tidp and in the right aspect of L4. [...] | |dilatation of the common bile duct. Wvnl-bl-lipn and in the right aspect of L4. [...] | | of the common bile duct. Quoz-mm-vmwz and in the right aspect of L4.IMPRESSION: [...] | |dilatation of the common bile duct. Oqzc-aq-aavw and in the right aspect of L4. [...]
--- OUTSIDE RECORDS SUMMARY | ~2019-10-14 | XMS | Encounter Summary ---
Demographics + + + | Address | [address] | | | [place] [address] | + + + | Home Phone [...] | Author | [facility] | | | and Nenoana | + + + | Organization | [facility] | | | and Neno[place] [...] + | Matthew Ramirez | ECON | [address] | | | | | [place] | | | | | [address] | | + + + + + Care Team Providers + +------+ + | Care Mainspring Torque Tester Name | Role | Phone | [...] | | [address] | [place] [address] | | | | | [address] | | | | | | [phone] | | | +--------+ + + + [...]
--- OUTSIDE RECORDS SUMMARY | ~2019-10-14 | XMS | Encounter Summary ---
Demographics + + + | Address | [address] | | | [place] [address] | + + + | Home Phone [...] | Author | [facility] | | | and [place] | + + + | Organization | [facility] | | | and Nenoana [...] + | Matthew Ramirez | ECON | [address] | | | | | [place] | | | | | [address] | | + + + + + Care Team Providers + +------+ + | Care General Accounting Clerk Name | Role | Phone | [...] + + | 01/24/ | Telephone | [facility] | Matthew Shukla MD | Results, Pathology | | 2019 | | GASTROENTEROLOGY | [address] [facility] | | | | | [address] [facility] | [place], [place] | | | | | [address] [place], [place] | [address] | | | | | [address] | [phone] | | | | | [phone] | | | +--------+ + + + [...]
--- OUTSIDE RECORDS SUMMARY | ~2019-10-14 | XMS | Encounter Summary ---
Demographics + + + | Address | [address] | | | [place] [address] | + + + | Home Phone | | + + + | Preferred Language | Unknown | + + + | Marital Status | | + + + | Church Affiliation | Unknown | + + + | Race | Unknown | + + + | Ethnic Group | Unknown | + + + Author + + + | Author | [facility] | | | and [place]eno[place] | + + + | Organization | [facility] | | | and [...] + | Matthew Ramirez | ECON | [address] | | | | | [place] | | | | | [address] | | + + + + + Care Team Providers + +------+ + | Care Community Liaison Name | Role | Phone | [...] Clinton Stringer, | | | | | ([facility]) | MD [address] | MD [address] | | | | | [address] | [address] | | | | | | [place], | [place], [place] | | | | | | [place] [address] | [address] | | | | | | Phone: | Phone: | | | | | | [phone] | [phone] | | | | | | Fax: | Fax: | | | | | | [phone] | [phone] | +--------+ + + + + + Encounter Details +--------+ + + + + | Date | Type | Department | Care Team | Description | +--------+ + + + + | 01/25/ | Orders Only | [facility] | Arpan, | Linitis plastica | | 2019 | | MED CTR MEDICAL | Luis Richards MD [address] | ([facility]) (Primary Dx) | | | | [facility] [address] [place] | | | | | [address] [place] | [place] [address] | | | | | [place] [address] | [phone] | | | | | [phone] | | | +--------+ + + + [...]
--- OUTSIDE RECORDS SUMMARY | ~2019-10-14 | XMS | Encounter Summary ---
Demographics + + + | Address | [address] | | | [place] [address] | + + + | Home Phone | | + + + | Preferred Language | Unknown | + + + | Marital Status | | + + + | Church Affiliation | NRP | + + + | Race | White | + + + | Ethnic Group | Not or | + + + Author + + + | Author | [facility] | + + + | Organization | [facility] | + + + | Address | Unknown | + + + | Phone | Unavailable | + + + Support + + + + + | Name | Relationship | Address | Phone | + + + + + | Matthew Ramirez | CHRIS | [address] | | | | | [place] | | | | | [address] | | + + + + + | Nella Haque | ECON | Unknown | | + + + + + Care Team Providers + +------+ + | Care Civil Service Clerk Name | Role | Phone | [...] [address] | Adjustment | | | | [facility] | [place], [place] | (Acetaminophen | | | | for Health and | [address] | adjustment ) | | | | Healing [address] | [phone] | | | | | [place], [place] | | | | | | [address] | | | | | | [phone] | | | +--------+ + + + [...]
--- OUTSIDE RECORDS SUMMARY | ~2019-10-14 | XMS | Encounter Summary ---
Demographics + + + | Address | [address] | | | [place] [address] | + + + | Home Phone [...] + + | Author | [facility] | | | and Nenoana | + + + | Organization | [facility] | | | and [...] + | Matthew Ramirez | CHRIS | [address] | | | | | [place] | | | | | [address] | | + + + + + Care Team Providers + +------+ + | Care Frame Stripper And Crusher Name | Role | Phone | + +------+ + PCP | Unavailable | + +------+ + Encounter Details +--------+ + + + + | Date | Type | Department | Care Team | Description | +--------+ + + + + | 11/27/ | Hospital | [facility] | | | | 1999 | Encounter | MED CTR GENERIC OP | | | | | | CONV DEPT [address] | | | | | | [place], | | | | | | [place] [address] | | | | | | [phone] | | | +--------+ + + + [...]
--- OUTSIDE RECORDS SUMMARY | ~2019-10-14 | XMS | Encounter Summary ---
Demographics + + + | Address | [address] | | | [place] [address] | + + + | Home Phone | | + + + | Preferred Language | Unknown | + + + | Marital Status | | + + + | Anabaptist Affiliation | Unknown | + + + | Race | Unknown | + + + | Ethnic Group | Unknown | + + + Author + + + | Author | [facility] | | | and [place] | + + + | Organization | [facility] [...] + | Matthew Ramirez | ECON | [address] | | | | | [place] | | | | | [address] | | + + + + + Care Team Providers + +------+ + | Care Travel Accommodation Inspector Name | Role | Phone | [...] | | | | | | | [place] REPAIR OF | | | | | [...] | | | [place], [place] | [place] [address] | | | | | [address] | [phone] | | | | | [phone] | | | +--------+ + + + [...] [facility] | | Dictated by: Jason Bruns | | + + + + + [...]
--- OUTSIDE RECORDS SUMMARY | ~2019-10-14 | XMS | Encounter Summary ---
Demographics + + + | Address | [address] | | | [place] [address] | + + + | Home Phone [...] + + + | Author | [facility] | + + + | Organization | [facility] | + + + | Address | Unknown | + + + | Phone | Unavailable | + + + Support + + + + + | Name | Relationship | Address | Phone | + + + + + | Matthew Ramirez | CHRIS | [address] | | | | | [place] | | | | | [address] | | + + + + + | Nella Lowery ECON | Unknown | | + + + + + Care Team Providers + +------+ + | Care Farmworker Fryer Farm Name | Role | Phone | + [...] | 2019 | marv | [facility] | [address] | | | | | [address] [place], [place] | [place], [place] | | | | | [address] | [address] | | | | | | [phone] | | | | | | | [...]
--- OUTSIDE RECORDS SUMMARY | ~2019-10-14 | XMS | Encounter Summary ---
Demographics + + + | Address | [address] | | | [place] [address] | + + + | Home Phone [...] | Author | [facility] | | | and [place]eno[place] | + + + | Organization | [facility] | | [...] + | Matthew Ramirez | CHRIS | [address] | | | | | [place] | | | | | [address] | | + + + + + Care Team Providers + +------+ + | Care Foreign Food Cook Specialty Name | Role | Phone | + +------+ + PCP | Unavailable | + +------+ + Encounter Details +--------+ + + + + | Date | Type | Department | Care Team | Description | +--------+ + + + + | 01/26/ | Hospital | [facility] | | | | 2008 | Encounter | MED CTR XRAY [address] | | | | | | [place] | | | | | | [place] [address] | | | | | | [phone] | | | +--------+ + + + [...]
--- OUTSIDE RECORDS SUMMARY | ~2019-10-14 | XMS | Encounter Summary ---
Demographics + + + | Address | [address] | | | [place] [address] | + + + | Home Phone [...] Author | [facility] | | | and Nenoana | + + + | Organization | [facility] | | | and [...] + | Matthew Ramirez | CHRIS | [address] | | | | | [place] | | | | | [address] | | + + + + + Care Team Providers + +------+ + | Care Mobile Solutions Architect Name | Role | Phone | + +------+ + PCP | Unavailable | + +------+ + Encounter Details +--------+ + + + + | Date | Type | Department | Care Team | Description | +--------+ + + + + | 06/15/ | Hospital | [facility] | | | | 2004 | Encounter | MED CTR XRAY [address] | | | | | | [place] | | | | | | [place] [address] | | | | | | [phone] | | | +--------+ + + + [...]
--- OUTSIDE RECORDS SUMMARY | ~2019-10-14 | XMS | Encounter Summary ---
Demographics + + + | Address | [address] | | | [place] [address] | + + + | Home Phone [...] + | Matthew Ramirez | CHRIS | [address] | | | | | [place] | | | | | [address] | | + + + + + | Nella Lowery ECON | Unknown | | + + + + + Care Team Providers + +------+ + | Care Chemical Radiation Technician Name | Role | Phone | [...] 2019 | Requisition | ALAINA English [place] | [address] | | | | | Rd [place], [place] | [place], [place] | | | | | [address] | [address] | | | | | | [phone] | | | | | | | [...] + + + + | PINKY | [address] [facility] [address] | [place] [address] | | | DIAGNOSTIC | [address] | | | | LABORATORIES | | | | + + + + + documented in this encounter Visit Diagnoses + + | Diagnosis | + + | Encounter for other screening for genetic and chromosomal anomalies | + + documented in this encounter"
--- OUTSIDE RECORDS SUMMARY | ~2019-10-14 | XMS | Encounter Summary ---
Demographics + + + | Address | [address] | | | [place] [address] | + + + | Home Phone [...] + | Author | [facility] | | | and Nenoana | + + + | Organization | [facility] | [...] + | Matthew Ramirez | ECON | [address] | | | | | [place] | | | | | [address] | | + + + + + Care Team Providers + +------+ + | Care Veneer Puller Name | Role | Phone | + [...] + + | 12/18/ | Telephone | [facility] | Matthew Shukla MD | Sore Throat | | 2019 | | GASTROENTEROLOGY | [address] [facility] | | | | | [address] [facility] | [place], [place] | | | | | [address] [place], [place] | [address] | | | | | [address] | [phone] | | | | | [phone] | | | +--------+ + + + [...]
--- OUTSIDE RECORDS SUMMARY | ~2019-10-14 | XMS | Encounter Summary ---
Demographics + + + | Address | [address] | | | [place] [address] | + + + | Home Phone [...] + | Matthew Ramirez | CHRIS | [address] | | | | | [place] | | | | | [address] | | + + + + + | Nella Lowery ECON | Unknown | | + + + + + Care Team Providers + +------+ + | Care Shell Grader Name | Role | Phone | [...] 2019 | Requisition | ALAINA English [place] | [address] | | | | | Rd [place], [place] | [place], [place] | | | | | [address] | [address] | | | | | | [phone] | | | | | | | [...] + + + + | PINKY | [address] [facility] [address] | [place] [address] | | | DIAGNOSTIC | [address] | | | | LABORATORIES | | | | + + + + + documented in this encounter Visit Diagnoses + + | Diagnosis | + + | Encounter for other screening for genetic and chromosomal anomalies | + + documented in this encounter"
--- OUTSIDE RECORDS SUMMARY | ~2019-10-14 | XMS | Encounter Summary ---
Demographics + + + | Address | [address] | | | [place] [address] | + + + | Home Phone [...] | Author | [facility] | | | and Nenoana | + + + | Organization | [facility] | | | and Nenoana [...] + | Matthew Ramirez | CHRIS | [address] | | | | | [place] | | | | | [address] | | + + + + + Care Team Providers + +------+ + | Care Knifer Up Name | Role | Phone | + +------+ + PCP | Unavailable | + +------+ + Encounter Details +--------+ + + + + | Date | Type | Department | Care Team | Description | +--------+ + + + + | 11/24/ | Hospital | [facility] | [place], | | | 2009 | Encounter | MED CTR GENERIC OP | Katerin Xavier MD | | | | | CONV DEPT [address] | | | | | | [place], | | | | | | [place] [address] | | | | | | [phone] | | | +--------+ + + + [...]
--- OUTSIDE RECORDS SUMMARY | ~2019-10-14 | XMS | Encounter Summary ---
Demographics + + + | Address | [address] | | | [place] [address] | + + + | Home Phone [...] + | Matthew Ramirez | CHRIS | [address] | | | | | [place] | | | | | [address] | | + + + + + | Nella Haque | ECON | Unknown | | + + + + + Care Team Providers + +------+ + | Care Wooden Fence Erector Name | Role | Phone | + [...] [address] | | | | | [facility] | [place], [place] | | | | | for Health and | [address] | | | | | Healing [address] | [phone] | | | | | Ave [place], [place] | | | | | | [address] | | | | | | [phone] | | | +--------+ + + + [...]
--- OUTSIDE RECORDS SUMMARY | ~2019-10-14 | XMS | Encounter Summary ---
Demographics + + + | Address | [address] | | | [place] [address] | + + + | Home Phone [...] + | Matthew Ramirez | CHRIS | [address] | | | | | [place] | | | | | [address] | | + + + + + | Nella Haque | ECON | Unknown | | + + + + + Care Team Providers + +------+ + | Care Pastry Assistant Name | Role | Phone | [...] + + | 07/28/ | Office | [facility] | Rodriguez Bower MD | Metastatic breast | | 2020 | Visit | Clinics at S | [address] | cancer (HCC) | | | | [facility] | [place], [place] | (Primary Dx) | | | | for Health and | [address] | | | | | Healing [address] | [phone] | | | | | [place], [place] | | | | | | [address] | | | | | | [phone] | | | +--------+---------+ + + + [...] adenocarcinoma -saw Dr. Antony of oncology at [place], discussed getting EUS for further evaluati on [...] with her daily activities. She lives in [place] with her , whom she cares for [...] Diagnosis 1. Multiple specimens A to F [id number]; 01/13/19): A. Stomach, antrum at great curvature, [...] Bonifacio Resendez MD Pathologist Pathology, [facility] My electronic signature indicates that I have [...] issues noted above. Rodriguez Bower MD, MS ID#[id number] Client Account Specialistreinforcing bar setter Division of Hematology and Medical Oncology [facility] [place] Pager#[phone] documented in this enco unter Plan of Treatment Not on filedocumented as of this encounter Visit Diagnoses + + | Diagnosis | + + | Metastatic breast cancer (HCC) - Primary | + + documented in this encounter"
--- OUTSIDE RECORDS SUMMARY | ~2019-10-14 | XMS | Encounter Summary ---
Demographics + + + | Address | [address] | | | [place] [address] | + + + | Home Phone [...] + | Matthew Ramirez | CHRIS | [address] | | | | | [place] | | | | | [address] | | + + + + + | Nella Haque | ECON | Unknown | | + + + + + Care Team Providers + +------+ + | Care Pot Washer Name | Role | Phone | [...] Amador | (Letrozole) | | | | [facility] | [facility] | | | | | [facility] and | [place], [place] | | | | | Healing [address] | [address] | | | | | [place], [place] | | | | | | [address] | | | | | | [phone] | | | +--------+--------+ + + + [...]
--- OUTSIDE RECORDS SUMMARY | ~2019-10-14 | XMS | Encounter Summary ---
Demographics + + + | Address | [address] | | | [place] [address] | + + + | Home Phone | | + + + | Preferred Language | Unknown | + + + | Marital Status | | + + + | Uatsdin Affiliation | Unknown | + + + | Race | Unknown | + + + | Ethnic Group | Unknown | + + + Author + + + | Author | [facility] | | | and Nenoana | + + + | Organization | [facility] | | [...] + | Matthew Ramirez | ECON | [address] | | | | | [place] | | | | | [address] | | + + + + + Care Team Providers + +------+ + | Care Business Development Specialist Name | Role | Phone | [...] 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 | [address] [place] | | | | | adenocarcino | [address] | [place], | | | | | ma (HCC) | [address] | [place] [address] | | | | | Procedures | [place], [place] | Phone: | | | | | CT Chest | [address] | [phone] | | | | | Abdomen | Phone: | Fax: | | | | | Pelvis w | [phone] | [phone] | | | | | Contrast | Fax: | | | | | | CHG CT | [phone] | | | | | | SCAN,ABDOMEN [...] 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 | [address] [place] | | | | | adenocarcino | [address] | [place], | | | | | ma (HCC) | [address] | [place] [address] | | | | | Procedures | [place], [place] | Phone: | | | | | CT Chest | [address] | [phone] | | | | | Abdomen | Phone: | Fax: | | | | | Pelvis w | [phone] | [phone] | | | | | Contrast | Fax: | | | | | | CHG CT | [phone] | | | | | | SCAN,ABDOMEN [...] + + | 12/31/ | Hospital | [facility] | Matthew Shukla MD | Gastric | | 2019 | Encounter | MED CTR [address] | [address] | adenocarcinoma (HCC) | | | | [place], | [place], [place] | | | | | [place] [address] | [address] | | | | | [phone] | [phone] | | | | | | | [...]
--- OUTSIDE RECORDS SUMMARY | ~2019-10-14 | XMS | Encounter Summary ---
Demographics + + + | Address | [address] | | | [place] [address] | + + + | Home Phone [...] | Author | [facility] | | | and Nenoana | + + + | Organization | [facility] | [...] + | Matthew Ramirez | ECON | [address] | | | | | [place] | | | | | [address] | | + + + + + Care Team Providers + +------+ + | Care Group Home Paraprofessional Name | Role | Phone | + [...] + + | 01/15/ | Telephone | [facility] | Arpan, | Patient Concerns | | 2019 | | MED [facility] | Luis Richards MD [address] | | | | | ONCOLOGY CLINIC [address] | [facility] | | | | | [address] | [place] [address] | | | | | [place] [address] | [phone] | | | | | [phone] | | | +--------+ + + + [...]
--- OUTSIDE RECORDS SUMMARY | ~2019-10-14 | XMS | Encounter Summary ---
Demographics + + + | Address | [address] | | | [place] [address] | + + + | Home Phone [...] | Author | [facility] | | | and Nenoana | + + + | Organization | [facility] | | | and [...] + | Matthew Ramirez | ECON | [address] | | | | | [place] | | | | | [address] | | + + + + + Care Team Providers + +------+ + | Care Recovery Room Nurse Name | Role | Phone | [...] | | | | | | | DC REPAIR OF | | | | | [...] [facility] | Mayank Honeycutt, | | | 2017 | Event | HOSPITAL OR INTRA OP | TREATING PLANT OPERATOR [address] | | | | | [address] [place] | [place] [address] | | | | | [place], [place] | [phone] | | | | | [address] | | | | | | [phone] | | | +--------+ + + + + Anesthesia Record + + + + + | Procedure Name | Responsible | Anesthesia Start | Anesthesia Stop Time | | | Anesthesiologist | Time | | + + + + + | ARTHROPLASTY 3rd and | Mayank Honeycutt, | 02/13/18 1306 | 02/13/18 1440 | | 4th Digits with | TREATING PLANT OPERATOR | | | | Impalnt Revision | [...] Pt A&O x3, comfortable, conversing, return to [facility] in bed. | | | 4 | [...] 1530 by | | eral | Antecubital; [email or web address]-[email or web address] | Steve Parry RN | [place] [...] 1:06 | | | | | Starting Fri02/13/18 at 1306, | | PM PDT | | | | | Anesthesia Intra-op | | | | | | + +---------+ +---+---+---+ +---+---+ | | | +---+---+ + +-------+ +------+---+---+ | midazolam (VERSED) 1 mg/mL | Given | 02/14/20 | 2 mg | | | | injection Intravenous, PRN, | | 18 1:10 | | | | | Anxiety, Starting 02/13/18 at | | PM PDT | | [...] mcg/kg/m | mL/hr | | | Starting 02/13/18 at 1313, | | PM PDT | [...]
--- OUTSIDE RECORDS SUMMARY | ~2019-10-14 | XMS | Encounter Summary ---
Demographics + + + | Address | [address] | | | [place] [address] | + + + | Home Phone [...] + | Matthew Ramirez | CHRIS | [address] | | | | | [place] | | | | | [address] | | + + + + + | Nella Haque | ECON | Unknown | | + + + + + Care Team Providers + +------+ + | Care New Car Make Ready Mechanic Name | Role | Phone | + +------+ + | Long Copeland MD | PCP | | + +------+ + Reason for Referral Consultation (Routine) + +--------+ + + + + | Status | Reason | Specialty | Diagnoses / | Referred By | Referred To | | | | | Procedures | Contact | Contact | + +--------+ + + + + | New Request | | Hematology & | Diagnoses | Sathish, | Hem Faculty | | | | Oncology | Metastatic | Rodriguez Hong MD | [facility] | | | | | breast | [address] | for Health | | | | | cancer (HCC) | Ave | and Healing | | | | | Procedures | [facility], [place] | [address] | | | | | CONSULT TO | [address] | Ave | | | | | ADULT OUTPT | Phone: | [place], [place] | | | | | SUPPORTIVE | [phone] | [address] | | | | | ONCOLOGY/PAL | Fax: | Phone: | | | | | LIATIVE | [phone] | [phone] | | | | | MEDICINE | | Fax: | | | | | | | [phone] | + +--------+ + + + + Consultation (Routine) + +--------+ + + + + | Status | Reason | Specialty | Diagnoses / | Referred By | Referred To | | | | | Procedures | Contact | Contact | + +--------+ + + + + | New Request | | Surgery | Diagnoses | Mitri, | Gs General | | | | | Metastatic | Rodriguez Hong MD | Surg Ch[facility]2 | | | | | breast | [address] | [address] | | | | | cancer (HCC) | Ave | Ave | | | | | Procedures | [place], [place] | Mailcode: | | | | | CONSULT TO | [address] | [facility] | | | | | | Phone: | Health and | | | | | GASTROENTERO | [phone] | Healing, | | | | | LOGY | Fax: | Building [address] | | | | | | [phone] | [place], [place] | | | | | | | [address] | | | | | | | Phone: | | | | | | | [phone] | | | | | | | Fax: | | | | | | | [phone] | + +--------+ + + + + Reason for Visit + + + | Reason | Comments | + + + | Refill Request | | + + + Encounter Details +--------+ + + + + | Date | Type | Department | Care Team | Description | +--------+ + + + + | 10/01/ | Telephone | [facility] | Rodriguez Bower MD | Refill Request | | 2020 | | Clinics at S | [address] [place] | | | | | [facility] | [place], [place] | | | | | for Health and | [address] | | | | | Healing [address] | [phone] | | | | | [place], [place] | | | | | | [address] | | | | | | [phone] | | | +--------+ + + + [...]
--- OUTSIDE RECORDS SUMMARY | ~2019-10-14 | XMS | Encounter Summary ---
Demographics + + + | Address | [address] | | | [place] [address] | + + + | Home Phone [...] + | Matthew Ramirez | CHRIS | [address] | | | | | [place] | | | | | [address] | | + + + + + | Nella Lowery ECON | Unknown | | + + + + + Care Team Providers + +------+ + | Care Circuit Court Judge Name | Role | Phone | + [...] | 2019 | marv | ALAINA English [facility] | [address] | | | | | Rd [place], [place] | [place], [place] | | | | | [address] | [address] | | | | | | [phone] | | | | | | | [...]
--- OUTSIDE RECORDS SUMMARY | ~2019-10-14 | XMS | Encounter Summary ---
Demographics + + + | Address | [address] | | | [place] [address] | + + + | Home Phone [...] | Author | [facility] | | | and Nenoana | + + + | Organization | [facility] [...] + | Matthew Ramirez | ECON | [address] | | | | | [place] | | | | | [address] | | + + + + + Care Team Providers + +------+ + | Care Production Supv Name | Role | Phone | + [...] | | | | | NM REPAIR | | | | | | [...] Event | HOSPITAL OR INTRA OP | POKER SUPERVISOR [address] | | | | | [address] [place] | [place] [address] | | | | | [place], [place] | [phone] | | | | | [address] | | | | | | [phone] | | | +--------+ + + + + Anesthesia Record + + + + + | Procedure Name | Responsible | Anesthesia Start | Anesthesia Stop Time | | | Anesthesiologist | Time | | + + + + + | CORRECTION | Mayank Honeycutt, | 07/04/17 0912 | 07/04/17 1022 | | MARSHA 2, 3, 4 | POKER SUPERVISOR | | | | (Left Foot) [...]
--- OUTSIDE RECORDS SUMMARY | ~2019-10-14 | XMS | Encounter Summary ---
Demographics + + + | Address | [address] | | | [place] [address] | + + + | Home Phone [...] | Author | [facility] | | | and Nenoana | + + + | Organization | [facility] | | | and Nenoana [...] + | Matthew Ramirez | ECON | [address] | | | | | [place] | | | | | [address] | | + + + + + Care Team Providers + +------+ + | Care Help Desk Engineer Name | Role | Phone | [...] [address] [place] | [address] [place], | | | | | [facility], [place] | [place] [address] | | | | | [address] | [phone] | | | | | [phone] | | | +--------+ + + + [...] Care Everywhere.Foot Surgery: Maurice pace Fifth Toe (Puerto [place]ican)Foot Surgery: Flexible and Rigid Hammertoes ([place]ican)Mallet, Hammer , and Claw Toes, Treating ([place]ican)Mallet, Hammer, and Claw Toes, What Are ([place]ican)document ed in this encounter Medications at Time [...]
--- OUTSIDE RECORDS SUMMARY | ~2019-10-14 | XMS | Encounter Summary ---
Demographics + + + | Address | [address] | | | [place] [address] | + + + | Home Phone [...] | Author | [facility] | | | and Nenoana | + + + | Organization | [facility] | | [...] + | Matthew Ramirez | ECON | [address] | | | | | [place] | | | | | [address] | | + + + + + Care Team Providers + +------+ + | Care Nailhead Operator Name | Role | Phone | [...] + | 12/17/ | Telephone | [facility] | Matthew Shukla MD | Procedure | | 2019 | | GASTROENTEROLOGY | [address] [facility] | | | | | [address] | [place], [place] | | | | | [address] [place], [place] | [address] | | | | | [address] | [phone] | | | | | [phone] | | | +--------+ + + + [...]
--- OUTSIDE RECORDS SUMMARY | ~2019-10-14 | XMS | Encounter Summary ---
Demographics + + + | Address | [address] | | | [place] [address] | + + + | Home Phone [...] | Author | [facility] | | | and Nenoana | + + + | Organization | [facility] [...] + | Matthew Ramirez | ECON | [address] | | | | | [place] | | | | | [address] | | + + + + + Care Team Providers + +------+ + | Care Food Handler Name | Role | Phone | [...] + + | 12/17/ | Telephone | [facility] | Matthew Shukla MD | Procedure | | 2019 | | GASTROENTEROLOGY | [address] [facility] | | | | | [address] [facility] | [place], [place] | | | | | [address] [place], [place] | [address] | | | | | [address] | [phone] | | | | | [phone] | | | +--------+ + + + [...]
--- OUTSIDE RECORDS SUMMARY | ~2019-10-14 | XMS | Encounter Summary ---
Demographics + + + | Address | [address] | | | [place] [address] | + + + | Home Phone [...] Author | [facility] | | | and Nenoana | + + + | Organization | [facility] | [...] + | Matthew Ramirez | ECON | [address] | | | | | [place] | | | | | [address] | | + + + + + Care Team Providers + +------+ + | Care Laundry Folder Name | Role | Phone | + [...] | | cancer | Luis Richards, | [place] | | | | | metastasized | MD [address] | [place], [place] | | | | | to multiple | [address] | [address] | | | | | sites, left | [place], | Phone: | | | | | (HCC) | [place] [address] | [phone] | | | | | Procedures | Phone: | Fax: | | | | | PET CT Skull | [phone] | [phone] | | | | | Base To Mid | Fax: | | | | | | Thigh | [phone] | | +--------+--------+ + + + + [...] | | cancer | Luis Richards, | [place] | | | | | metastasized | MD [address] | [place], [place] | | | | | to multiple | [address] | [address] | | | | | sites, left | [place], | Phone: | | | | | (HCC) | [place] [address] | [phone] | | | | | Procedures | Phone: | Fax: | | | | | PET CT Skull | [phone] | [phone] | | | | | Base To Mid | Fax: | | | | | | Thigh | [phone] | | +--------+--------+ + + + + Encounter Details +--------+ + + + + | Date | Type | Department | Care Team | Description | +--------+ + + + + | 07/21/ | Hospital | [facility] | Arpan, | Breast cancer | | 2020 | Encounter | MED CTR PET SCAN | Luis Richards MD [address] | metastasized to | | | | [address] [place] | [address] [place] | multiple sites, left | | | | [place] [address] | [place] [address] | (HCC) | | | | [phone] | [phone] | | | | | | | [...] millicur | | | | Intravenous, ONCE, [facility] 07/22/19 at | | AM PDT | ies | | | | 0930, For 1 dose | | | | | | + +--------+ + +------+------+ +---+---+ | | | +---+---+ documented in this encounter
--- OUTSIDE RECORDS SUMMARY | ~2019-10-14 | XMS | Encounter Summary ---
Demographics + + + | Address | [address] | | | [place] [address] | + + + | Home Phone [...] + | Author | [facility] | | | and Nenoana | + + + | Organization | [facility] | [...] + | Matthew Ramirez | ECON | [address] | | | | | [place] | | | | | [address] | | + + + + + Care Team Providers + +------+ + | Care Superintendent Electric Power Name | Role | Phone | + [...] | | [address] | [place] [address] | | | | | [address] | | | | | | [phone] | | | +--------+ + + + [...]
--- OUTSIDE RECORDS SUMMARY | ~2019-10-14 | XMS | Encounter Summary ---
Demographics + + + | Address | [address] | | | [place] [address] | + + + | Home Phone [...] Author | [facility] | | | and Nenoana | + + + | Organization | [facility] | | | [...] + | Matthew Ramirez | ECON | [address] | | | | | [place] | | | | | [address] | | + + + + + Care Team Providers + +------+ + | Care Harness Worker Name | Role | Phone | [...] | | | [address] [place] | [place] [address] | | | | | [place] [address] | | | | | | [phone] | | | +--------+ + + + [...]
--- OUTSIDE RECORDS SUMMARY | ~2019-10-14 | XMS | Encounter Summary ---
Demographics + + + | Address | [address] | | | [place] [address] | [...] Author | [facility] | | | and Nenoana | + + + | Organization | [facility] [...] + | Matthew Ramirez | CHRIS | [address] | | | | | [place] | | | | | [address] | | + + + + + Care Team Providers + +------+ + | Care Patch Finisher Name | Role | Phone | + +------+ + PCP | Unavailable | + +------+ + Encounter Details +--------+ + + + + | Date | Type | Department | Care Team | Description | +--------+ + + + + | 07/15/ | Hospital | [facility] | | | | 2001 | Encounter | MED CTR GENERIC OP | | | | | | CONV DEPT [address] | | | | | | [place], | | | | | | [place] [address] | | | | | | [phone] | | | +--------+ + + + [...]
--- OUTSIDE RECORDS SUMMARY | ~2019-10-14 | XMS | Encounter Summary ---
Demographics + + + | Address | [address] | | | [place] [address] | + + + | Home Phone [...] Author | [facility] | | | and Nenoana | + + + | Organization | [facility] | | [...] + | Matthew Ramirez | ECON | [address] | | | | | [place] | | | | | [address] | | + + + + + Care Team Providers + +------+ + | Care Concierge Receptionist Name | Role | Phone | + [...] [place] | | | | | [address] [place] | [place] [address] | | | | | [place] [address] | [phone] | | | | | [phone] | | | +--------+ + + + [...]
--- OUTSIDE RECORDS SUMMARY | ~2019-10-14 | XMS | Encounter Summary ---
Demographics + + + | Address | [address] | | | [place] [address] | + + + | Home Phone [...] + + + | Matthew Raimrez | CHRIS | [address] | | | | | [place] | | | | | [address] | | + + + + + | Nella Garland | ECON | Unknown | | + + + + + Care Team Providers + +------+ + | Care Parent Trainer Name | Role | Phone | [...] | | | | | ONCOLOGY | [address] | Ave | | | | | PRACTICE | Phone: | [place], [place] | | | | | | [phone] | [address] | | | | | | Fax: | Phone: | | | | | | [phone] | [phone] | | | | | | | Fax: | | | | | | | [phone] | + +---------+ + + + + Encounter Details +--------+ + + + + | Date | Type | Department | Care Team | Description | +--------+ + + + + | 03/04/ | Instrument Repairer | Surgical Oncology | Cristel Galicia MD | Tumor (Primary Dx) | | 2019 | | at [facility] [address] | [address] | | | | | Ave Mail Code: | [place], [place] | | | | | [facility] | [address] | | | | | and Healing, | [phone] | | | | | Building [address] | | | | | | [place], [place] | | | | | | [address] | | | | | | [phone] | | | +--------+ + + + [...]
--- OUTSIDE RECORDS SUMMARY | ~2019-10-14 | XMS | Encounter Summary ---
Demographics + + + | Address | [address] | | | [place] [address] | + + + | Home Phone | | + + + | Preferred Language | Unknown | + + + | Marital Status | | + + + | Yarsani Affiliation | Unknown | + + + | Race | Unknown | + + + | Ethnic Group | Unknown | + + + Author + + + | Author | [facility] | | | and Nenoana | + + + | Organization | [facility] | | [...] + | Matthew Ramirez | ECON | [address] | | | | | [place] | | | | | [address] | | + + + + + Care Team Providers + +------+ + | Care Warp Tension Tester Name | Role | Phone | [...] / | Diagnoses | Gayla | [facility] | | | Services | General | 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 | General | | | Required | Surgery | adenocarcino | [address] | Surgery [address] | | | | | bhargav ([facility]) | [address] | MICHAEL | | | | | | [place], [place] | [place], | | | | | | [address] | [place] [address] | | | | | | Phone: | Phone: | | | | | | [phone] | [phone] | | | | | | Fax: | Fax: | | | | | | [phone] | [phone] | +--------+ + + + + + Encounter Details +--------+---------+ + + + | Date | Type | Department | Care Team | Description | +--------+---------+ + + + | 01/07/ | Office | [facility] | Ana Mendez MD | Gastric | | 2019 | Visit | SURGERY [address] | [address] [facility] | adenocarcinoma (HCC) | | | | [place], [place] | [place] [address] | (Primary Dx) | | | | [address] | [phone] | | | | | [phone] | | | +--------+---------+ + + + [...] adenoma. COMMENT: A -- As part of [employer] Quality Improvement Program, this portion of the case h as been reviewed by another member of our pathology staff with subspecialty training in lisa rointestinal pathology. Results called to Dr. Shukla office ([place]) 12/24/18 10:15 AM. Discussed results on specimen [...] Impalnt Revision; Surgeon: Jose Randall DPM; Location: [facility] BLADDER REPAIR 1971 BLADDER SUSPENSION 2007 CARPAL TUNNEL RELEASE Bilateral CATARACT REMOVAL Right 03/2016 CHOLECYSTECTOMY, LAPAROSCOPIC 1997 COLECTOMY 2004 recurrent diverticulitis COLONOSCOPY 01/2018 One diminutive polyp COLONOSCOPY N/A 12/17/2018 Procedure: COLONOSCOPY; Surgeon: Matthew Shukla MD; Location: [facility]ICAL PROC[facility]URE UN[facility] FINGER SURGERY Left 2007 Thumb surgery for osteoarthritis FINGER SURGERY Left 11/2008 FINGER SURGERY Right 04/2012 Thumb surgery HAMMER TOE SURGERY Right 03/06/2017 Procedure: Correction Hammer Toes 2nd , 3rd, and 4th Toes; Surgeon: ANNIE Cuevas; Location: [facility] SURGERY HAMMER TOE SURGERY Left 07/04/2017 Procedure: CORRECTION HAMMERTOES 2, 3, 4; Surgeon: Jose Randall DPM; Location: [facility] SURGERY HAMMER TOE SURGERY Left 2018 x3 KNEE ARTHROSCOPY Right 2001 PUBOVAGINAL SLING 10/16/2010 TVT Retropubic sling at [facility] SIGMOID COLECTOMY 12/20/2002 Franck Davis MD - [facility] AND O 1996 TONSILLECTOMY AND ADENOIDECTOMY 1948 TOTAL KNEE ARTHROPLASTY Right 07/11/2011 TUBAL LIGATION 1976 UPPER GASTROINTESTINAL ENDOSCOPY N/A 12/17/2018 Procedure: EGD; Surgeon: Matthew Shukla MD; Location: [facility] MEDICAL PROCEDURE UNIT URETHROPEXY 07/11/2010 Revision [...] MCG tablet Take 800 mcg by mouth. Adxvosgmwzg-Mreoyozff-Rdi C-Mn (GLUCOSAMINE CHONDR 500 COMPLEX) CAPS 2 [...] this chart may have been created with [employer] voice recognition software. Occasi onal wrong-word or [...]
--- OUTSIDE RECORDS SUMMARY | ~2019-10-14 | XMS | Encounter Summary ---
Demographics + + + | Address | [address] | | | [place] [address] | + + + | Home Phone [...] Author | [facility] | | | and Nenoana | + + + | Organization | [facility] | | | and Nenoana | [...] + | Matthew Ramirez | ECON | [address] | | | | | [place] | | | | | [address] | | + + + + + Care Team Providers + +------+ + | Care Transportation Technician Name | Role | Phone | [...] | | | [address] | [place] [address] | | | | | [place] [address] | | | | | | [phone] | | | +--------+ + + + [...]
--- OUTSIDE RECORDS SUMMARY | ~2019-10-14 | XMS | Encounter Summary ---
Demographics + + + | Address | [address] | | | [place] [address] | + + + | Home Phone [...] Author | [facility] | | | and Nenoana | + + + | Organization | [facility] | [...] + | Matthew Ramirez | ECON | [address] | | | | | [place] | | | | | [address] | | + + + + + Care Team Providers + +------+ + | Care Laborer Pole Crew Name | Role | Phone | + [...] | | | [address] | [place] [address] | | | | | [place] [address] | | | | | | [phone] | | | +--------+ + + + [...]
--- OUTSIDE RECORDS SUMMARY | ~2019-10-14 | XMS | Encounter Summary ---
Demographics + + + | Address | [address] | | | [place] [address] | + + + | Home Phone [...] + | Matthew Ramirez | CHRIS | [address] | | | | | [place] | | | | | [address] | | + + + + + | Nella Haque | ECON | Unknown | | + + + + + Care Team Providers + +------+ + | Care On Air Director Name | Role | Phone | + +------+ + | Long Copeland MD | PCP | | + +------+ + Encounter Details +--------+ + + + + | Date | Type | Department | Care Team | Description | +--------+ + + + + | 08/22/ | Outside | UNKNOWN DEPARTMENT | Other, Faculty | | | 2019 | Records | [address] [facility] | [phone] | | | | | [address] | | | | | | [place], [place] | | | | | | [address] | | | +--------+ + + + [...]
--- OUTSIDE RECORDS SUMMARY | ~2019-10-14 | XMS | Encounter Summary ---
Demographics + + + | Address | [address] | | | [place] [address] | + + + | Home Phone [...] Author | [facility] | | | and Nenoana | + + + | Organization | [facility] | | [...] + | Matthew Ramirez | ECON | [address] | | | | | [place] | | | | | [address] | | + + + + + Care Team Providers + +------+ + | Care 4 H Youth Development Specialist Name | Role | Phone [...] | | | | Gastric mass | [place], [place] | [place] | | | | | Procedures | [address] | [address] Phone: | | | | | Urgent- | Phone: | [phone] | | | | | EGD + EUS | [phone] | Fax: | | | | | NEXT WEEK | Fax: | [phone] | | | | | | [phone] | | +--------+ + + + + + Encounter Details +--------+ + + + + | Date | Type | Department | Care Team | Description | +--------+ + + + + | 01/06/ | Orders Only | [facility] | Matthew Shukla MD | Gastric | | 2019 | | GASTROENTEROLOGY | [address] | adenocarcinoma (HCC) | | | | [address] [facility] | [place], [place] | (Primary Dx) | | | | [address] [place] | [address] | | | | | [address] | [phone] | | | | | [phone] | | | +--------+ + + + [...] Shukla notified patient needed Urgent referral to [facility] for Eval Egd/EUS of gastric adenocarcinoma r/o [...] Gastroenterology | | | | | | ([place]) | | | | | + + +--------+ + + documented as of this encounter Visit Diagnoses + + | Diagnosis | + + | Gastric adenocarcinoma (HCC) - Primary Malignant neoplasm of stomach, unspecified | | site | + + documented in this encounter"
--- OUTSIDE RECORDS SUMMARY | ~2019-10-14 | XMS | Encounter Summary ---
Demographics + + + | Address | [address] | | | [place] [address] | + + + | Home Phone [...] + | Author | [facility] | | | and Nenoana | + + + | Organization | [facility] | | | and [...] + | Matthew Ramirez | ECON | [address] | | | | | [place] | | | | | [address] | | + + + + + Care Team Providers + +------+ + | Care Business Editor Name | Role | Phone | + [...] | | | [address] | [place] [address] | | | | | [place] [address] | | | | | | [phone] | | | +--------+ + + + [...]
--- OUTSIDE RECORDS SUMMARY | ~2019-10-14 | XMS | Encounter Summary ---
Demographics + + + | Address | [address] | | | [place] [address] | + + + | Home Phone [...] + | Matthew Ramirez | CHRIS | [address] | | | | | [place] | | | | | [address] | | + + + + + | Nella Haque | ECON | Unknown | | + + + + + Care Team Providers + +------+ + | Care Identification Printing Machine Setter Name | Role | Phone | [...] | | | | | ma ([facility]) | [place], | | | | | | Procedures | [place] | | | | | [place] | [address] | | | | | | CONTRAST | Phone: | | | | | | | [phone] | | | | | | | Fax: | | | | | | | [phone] | | + +--------+ + + + [...] | | | | ma (HCC) | [place], | | | | | | Procedures | [place] | | | | | [place] | [address] | | | | | | CONTRAST | Phone: | | | | | | | [phone] | | | | | | | Fax: | | | | | | | [phone] | | + +--------+ + + + [...] | | | [address] Mailcode: | [place], [place] | | | | | [address] | [address] | | | | | Health and Healing, | [phone] | | | | | [address] | | | | | | Floor [place], [place] | | | | | | [address] | | | | | | [phone] | | | +--------+ + + + [...] nostril | | | | | | [place] | once daily. | | | | [...]
--- OUTSIDE RECORDS SUMMARY | ~2019-10-14 | XMS | Encounter Summary ---
Demographics + + + | Address | [address] | | | [place] [address] | + + + | Home Phone [...] | Author | [facility] | | | and Nenoana | + + + | Organization | [facility] [...] + | Matthew Ramirez | CHRIS | [address] | | | | | [place] | | | | | [address] | | + + + + + Care Team Providers + +------+ + | Care Device Engineer Name | Role | Phone | + +------+ + PCP | Unavailable | + +------+ + Encounter Details +--------+ + + + + | Date | Type | Department | Care Team | Description | +--------+ + + + + | 03/28/ | Hospital | [facility] | | | | 1996 | Encounter | [facility] | | | | | | [address] | | | | | | [place] | | | | | | [address] | | | | | | [phone] | | | +--------+ + + + [...]
--- OUTSIDE RECORDS SUMMARY | ~2019-10-14 | XMS | Encounter Summary ---
Demographics + + + | Address | [address] | | | [place] [address] | + + + | Home Phone | | + + + | Preferred Language | Unknown | + + + | Marital Status | | + + + | Advent Affiliation | Unknown | + + + | Race | Unknown | + + + | Ethnic Group | Unknown | + + + Author + + + | Author | [facility] | | | and Nenoana | + + + | Organization | [facility] | [...] + | Matthew Ramirez | ECON | [address] | | | | | [place] | | | | | [address] | | + + + + + Care Team Providers + +------+ + | Care Reclamation Furnace Operator Name | Role | Phone | [...] | | | | | [place] [facility] | | | | | [...] | | | [place], [place] | [place] [address] | | | | | [address] | [phone] | | | | | [phone] | | | +--------+ + + + [...]
--- OUTSIDE RECORDS SUMMARY | ~2019-10-14 | XMS | Encounter Summary ---
Demographics + + + | Address | [address] | | | [place] [address] | + + + | Home Phone [...] Author | [facility] | | | and Nenoana | + + + | Organization | [facility] | [...] + | Matthew Ramirez | ECON | [address] | | | | | [place] | | | | | [address] | | + + + + + Care Team Providers + +------+ + | Care Wood Machinist Name | Role | Phone | + [...] | | | [address] | [place] [address] | | | | | [place] [address] | | | | | | [phone] | | | +--------+ + + + [...]
--- OUTSIDE RECORDS SUMMARY | ~2019-10-14 | XMS | Encounter Summary ---
Demographics + + + | Address | [address] | | | [place] [address] | + + + | Home Phone [...] + + | Author | [facility] | | | and Nenoana | + + + | Organization | [facility] | | | and Nenoana | [...] + | Matthew Ramirez | ECON | [address] | | | | | [place] | | | | | [address] | | + + + + + Care Team Providers + +------+ + | Care Fruit Peeler Name | Role | Phone | + [...] | | | [address] | [place] [address] | | | | | [place] [address] | | | | | | [phone] | | | +--------+ + + + [...]
--- OUTSIDE RECORDS SUMMARY | ~2019-10-14 | XMS | Encounter Summary ---
Demographics + + + | Address | [address] | | | [place] [address] | + + + | Home Phone [...] + | Matthew Ramirez | ECON | [address] | | | | | [place] | | | | | [address] | | + + + + + Care Team Providers + +------+ + | Care Cutting Machine Operator Helper Name | Role | Phone | [...] | [address] | [place] [address] | | | | | [address] | | | | | | [phone] | | | +--------+ + + + [...]
--- OUTSIDE RECORDS SUMMARY | ~2019-10-14 | XMS | Encounter Summary ---
Demographics + + + | Address | [address] | | | [place] [address] | + + + | Home Phone [...] + | Matthew Ramirez | CHRIS | [address] | | | | | [place] | | | | | [address] | | + + + + + | Nella Haque | ECON | Unknown | | + + + + + Care Team Providers + +------+ + | Care Test Cell Technician Name | Role | Phone | [...] Clinics at S | [address] [facility] | | | | | [facility] | [place], [place] | | | | | [facility] and | [address] | | | | | Healing [address] | [phone] | | | | | Ave [place], [place] | | | | | | [address] | | | | | | [phone] | | | +--------+--------+ + + + [...]
--- OUTSIDE RECORDS SUMMARY | ~2019-10-14 | XMS | Encounter Summary ---
Demographics + + + | Address | [address] | | | [place] [address] | + + + | Home Phone [...] + | Matthew Ramirez | CHRIS | [address] | | | | | [place] | | | | | [address] | | + + + + + | Nella Haque | ECON | Unknown | | + + + + + Care Team Providers + +------+ + | Care Correctional Program Specialist Name | Role | Phone [...] | | | | | Procedures | [address] | | | | | | PET CT SKULL | Phone: | | | | | | [place] | [phone] | | | | | | [place]-THIGHS | Fax: | | | | | | | [phone] | | +--------+--------+ + + + + [...] | | | | [address] | [address] | | | | | | [place], | Phone: | | | | | | [place] [address] | [phone] | | | | | | Phone: | Fax: | | | | | | [phone] | [phone] | | | | | | Fax: | | | | | | | [phone] | | +--------+--------+ + + + + [...] | | | Ave Mail Code: | [place], [place] | (Primary Dx); Tumor | | | | [facility] for [facility] | [address] | | | | | and Healing, | [phone] | | | | | Building [address] | | | | | | [place], [place] | | | | | | [address] | | | | | | [phone] | | | +--------+---------+ + + + [...] obtain PET scan at local facility in [place]. Please contact Nelli Vaca, Nurse Coordinator for Dr. Cristel Galicia, with any questions at [phone]. We encourage all of our patients to sign up and use ENEFpro for communication . Please note: I am out of the office on Mondays and unable to monitor voicemail or email. If you need to get ahold of someone urgently, please call [phone]. documented in this encounter Progress Notes Cristel Galicia MD - 02/03/2019 9:00 AM PDTATTENDING PHYSICIAN STATEMENT AND SUMMARY This note has been dictated using [employer] voice recognition software. I saw Ashly Ramirez [...] will byrnes ve her set up in [facility], I will discuss her case when these results are avai lable in our multidisciplinary GI tumor board, and then contact the patient and a [facility] with any treatment recommendations. RECOMMENDATIONS 1. PET CT scan to be ordered and performed in [facility]. 2. We will discuss her [...] o their satisfaction. Cristel Galicia MD, MPH diamond wheel molder Division of Surgical Oncology [facility] [place], [place] Desmond Frank MD - 9:00 AM PDT 02/03/2019 Surgical Oncology Clinic New Patient Consultation--Gastric Cancer Referring Physician: Dr. Luis Antony Reason for consultation: Newly diagnosed gastric adenocarcinoma (This note is structured to facilitate communication among oncology providers) PLAN TODAY: 1. Return to clinic after discussion at tumor board. 2. Return to [facility] for EGD with biopsies for disease surveillance 3. Will need a PET/CT scan 4. Will present case and discuss in upcoming Multi-Disciplinary Tumor board and contact pat ient with recommendations. 5. Solid tumor Gene Trails 6. Follow up [facility] path review of outside records ONCOLOGIC [...] gastric adeno carcinoma. She subsequently went to [place] and underwent and EUS with Dr. Stevenson [...] and hematochezia. 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 Currently, she is functionally good allowing [...] case will be discussed at the [facility] Multidisciplinary Gastrointestinal Cancer Conference which includes [...] evelia tment. Desmond Voss MD R1 [facility] General Surgery documented in this enc [...] | [facility] | | | TESTED | [id number] E1 labeled as | | DIAGNOSTIC | [...] | | | | | | is graphic art sales representative of | | | | | | this tumor, we would | | | | | | welcome the opportunity | | | | | | to examine it. | | | | + + + + + + | DISCLAIMER | This test was developed | | [facility] | | | | and its performance | | DIAGNOSTIC | | | | characteristics | | | | | | determined by the [facility] | | LABORATORIE | | | | [facility] Diagnostic | | S [...] | | | | | (CLIA). [facility] | | | | | | Diagnostics | | | | | | Laboratories are fully | | | | | | licensed by the state of | | | | | | [place] under CLIA and | | | | | | are accredited by the | | | | | | [employer] | | | | | | Pathologists (CAP). | | | | | | Hydroelectric Production Technician: | | | | | | Rancho [...] + + + | PINKY | [address] | [place] [address] | | | DIAGNOSTIC | [address] [...]
--- OUTSIDE RECORDS SUMMARY | ~2019-10-14 | XMS | Encounter Summary ---
Demographics + + + | Address | [address] | | | [place] [address] | + + + | Home Phone [...] + + + + + | Matthew Ramirze | CHRIS | [address] | | | | | [place] | | | | | [address] | | + + + + + | Nella Haque | ECON | Unknown | | + + + + + Care Team Providers + +------+ + | Care Long Lines Operator Name | Role | Phone | + +------+ + | Long Copeland MD | PCP | | + +------+ + Encounter Details +--------+ + + + + | Date | Type | Department | Care Team | Description | +--------+ + + + + | 10/10/ | Outside | UNKNOWN DEPARTMENT | Other, Faculty | | | 2019 | Records | [address] [facility] | [phone] | | | | | [address] | | | | | | [place], [place] | | | | | | [address] | | | +--------+ + + + [...]
--- OUTSIDE RECORDS SUMMARY | ~2019-10-14 | XMS | Encounter Summary ---
Demographics + + + | Address | [address] | | | [place] [address] | + + + | Home Phone | | + + + | Preferred Language | Unknown | + + + | Marital Status | | + + + | Jainism Affiliation | NRP | + + + | Race | White | + + + | Ethnic Group | Not or | + + + Author + + + | Author | [facility] | + + + | Organization | [facility] | + + + | Address | Unknown | + + + | Phone | Unavailable | + + + Support + + + + + | Name | Relationship | Address | Phone | + + + + + | Matthew Ramirez | CHRIS | [address] | | | | | [place] | | | | | [address] | | + + + + + | Nella Garland | ECON | Unknown | | + + + + + Care Team Providers + +------+ + | Care Gardener Florist Name | Role | Phone | + [...] | | | | | ONCOLOGY | [address] | Ave | | | | | PRACTICE | Phone: | [place], [place] | | | | | | [phone] | [address] | | | | | | Fax: | Phone: | | | | | | [phone] | [phone] | | | | | | | Fax: | | | | | | | [phone] | + +---------+ + + + + Encounter Details +--------+ + + + + | Date | Type | Department | Care Team | Description | +--------+ + + + + | 03/04/ | Lead Mechanical Engineer | Surgical Oncology | Cristel Galicia MD | Tumor (Primary Dx) | | 2019 | | at [facility] [address] | [address] | | | | | Ave Mail Code: | [place], [place] | | | | | [facility] | [address] | | | | | and Healing, | [phone] | | | | | Building [address] | | | | | | [place], [place] | | | | | | [address] | | | | | | [phone] | | | +--------+ + + + [...]
--- OUTSIDE RECORDS SUMMARY | ~2019-10-14 | XMS | Encounter Summary ---
Demographics + + + | Address | [address] | | | [place] [address] | + + + | Home Phone [...] Author | [facility] | | | and Nenoana | + + + | Organization | [facility] [...] + | Matthew Ramirez | ECON | [address] | | | | | [place] | | | | | [address] | | + + + + + Care Team Providers + +------+ + | Care Aircraft Captain Name | Role | Phone | [...] + | 01/25/ | Telephone | [facility] | Arpan, | Family/caregiver | | 2019 | | [facility] | Luis Richards MD [address] | Concerns | | | | ONCOLOGY CLINIC [address] | [facility] | | | | | [address] | [place] [address] | | | | | [place] [address] | [phone] | | | | | [phone] | | | +--------+ + + + [...]
--- OUTSIDE RECORDS SUMMARY | ~2019-10-14 | XMS | Encounter Summary ---
Demographics + + + | Address | [address] | | | [place] [address] | + + + | Home Phone [...] + + | Author | [facility] | | | and Nenoana | + + + | Organization | [facility] | [...] + | Matthew Ramirez | ECON | [address] | | | | | [place] | | | | | [address] | | + + + + + Care Team Providers + +------+ + | Care Chart Writer Name | Role | Phone | [...] + + | 03/18/ | Telephone | [facility] | Arpan | Coordination Of Care | | 2019 | | [facility] | Luis Richards MD [address] | | | | | ONCOLOGY CLIN[facility] [address] | [facility] | | | | | [facility] | [place] [address] | | | | | [place] [address] | [phone] | | | | | [phone] | | | +--------+ + + + [...]
--- OUTSIDE RECORDS SUMMARY | ~2019-10-14 | XMS | Encounter Summary ---
Demographics + + + | Address | [address] | | | [place] [address] | + + + | Home Phone | | + + + | Preferred Language | Unknown | + + + | Marital Status | | + + + | Gnosticist Affiliation | Unknown | + + + | Race | Unknown | + + + | Ethnic Group | Unknown | + + + Author + + + | Author | [facility] | | | and Nenoana | + + + | Organization | [facility] [...] + | Matthew Ramirez | CHRIS | [address] | | | | | [place] | | | | | [address] | | + + + + + Care Team Providers + +------+ + | Care Permastone Mechanic Name | Role | Phone | + +------+ + PCP | Unavailable | + +------+ + Encounter Details +--------+ + + + + | Date | Type | Department | Care Team | Description | +--------+ + + + + | 09/06/ | Hospital | [facility] | | | | 2004 | Encounter | MED CTR XRAY [address] | | | | | | [address] | | | | | | [place] [address] | | | | | | [phone] | | | +--------+ + + + [...]
--- OUTSIDE RECORDS SUMMARY | ~2019-10-14 | XMS | Encounter Summary ---
Demographics + + + | Address | [address] | | | [place] [address] | + + + | Home Phone | | + + + | Preferred Language | Unknown | + + + | Marital Status | | + + + | Yarsanism Affiliation | Unknown | + + + | Race | Unknown | + + + | Ethnic Group | Unknown | + + + Author + + + | Author | [facility] | | | and Nenoana | + + + | Organization | [facility] | [...] + | Matthew Ramirez | ECON | [address] | | | | | [place] | | | | | [address] | | + + + + + Care Team Providers + +------+ + | Care Business Management Associate Name | Role | Phone | [...] | | | unspecified | | [place] [address] | | | | | type | | Phone: | | | | | Chronic | | [phone] | | | | | abdominal | | Fax: | | | | | pain | | [phone] | | | | | Benzodiazepi | [...] | | | | | | [place] | | | | | | | ESOPHAGOGAST | | | | | | | RODUODENOSCO | | | | | | | PY TRANSORAL | | | | | | | DIAGNOSTIC | | | | | | | [place] EGD | | | | | | | TRANSORAL | | | | | | | BIOPSY | | | | | | | SINGLE/MULTI | | | | | | | PLE [place] | | | | | | | COLONOSCOPY | | | | | | | FLX DX | | | | | | | W/COLLJ SPEC | | | | | | | WHEN PFRMD | | | | | | | [place] | | | | | | | COLONOSCOPY | | | | | | | W/BIOPSY | | | | | | | SINGLE/MULTI | | | | | | | PLE [place] | | | | | | | COLSC FLX | | | | | | | W/RMVL OF | | | | | | | TUMOR POLYP | | | | | | | LESION SNARE | | | | | | | TQ [place] | | | | | | [...] | | | | | [address] | [facility] | | | | | [place] | [place] [address] | | | | | [address] | [phone] | | | | | [phone] | | | +--------+ + + + [...] 12/17/18 1622 by | | nicolas | flwz-xcb-cbcepw catheter system; | Gris Davis RN | [...]
--- OUTSIDE RECORDS SUMMARY | ~2019-10-14 | XMS | Encounter Summary ---
Demographics + + + | Address | [address] | | | [place] [address] | + + + | Home Phone [...] Author | [facility] | | | and Nenoana | + + + | Organization | [facility] [...] + | Matthew Ramirez | CHRIS | [address] | | | | | [place] | | | | | [address] | | + + + + + Care Team Providers + +------+ + | Care Escalator Attendant Name | Role | Phone | + +------+ + PCP | Unavailable | + +------+ + Encounter Details +--------+ + + + + | Date | Type | Department | Care Team | Description | +--------+ + + + + | 11/27/ | Hospital | [facility] | | | | 1999 | Encounter | MED CTR GENERIC OP | | | | | | CONV DEPT [address] | | | | | | [place], | | | | | | [place] [address] | | | | | | [phone] | | | +--------+ + + + [...]
--- OUTSIDE RECORDS SUMMARY | ~2019-10-14 | XMS | Encounter Summary ---
Demographics + + + | Address | [address] | | | [place] [address] | + + + | Home Phone [...] + | Author | [facility] | | | and Nenoana | + + + | Organization | [facility] | | [...] + | Matthew Ramirez | ECON | [address] | | | | | [place] | | | | | [address] | | + + + + + Care Team Providers + +------+ + | Care Collator Name | Role | Phone | + [...] | | | [place], [place] | [place] [address] | | | | | [address] | [phone] | | | | | [phone] | | | +--------+ + + + [...]
--- OUTSIDE RECORDS SUMMARY | ~2019-10-14 | XMS | Encounter Summary ---
Demographics + + + | Address | [address] | | | [place] [address] | + + + | Home Phone [...] + | Matthew Ramirez | CHRIS | [address] | | | | | [place] | | | | | [address] | | + + + + + | Nella Haque | ECON | Unknown | | + + + + + Care Team Providers + +------+ + | Care Fast Brim Pouncer Name | Role | Phone | + [...] Villalobos | Coordination | | | | [facility] | [place], [place] | | | | | for Health and | [address] | | | | | Healing [address] | [phone] | | | | | [place], [place] | | | | | | [address] | | | | | | [phone] | | | +--------+ + + + [...]
--- OUTSIDE RECORDS SUMMARY | ~2019-10-14 | XMS | Encounter Summary ---
Demographics + + + | Address | [address] | | | [place] [address] | + + + | Home Phone [...] | Author | [facility] | | | and Nenoana | + + + | Organization | [facility] | | [...] + | Matthew Ramirez | ECON | [address] | | | | | [place] | | | | | [address] | | + + + + + Care Team Providers + +------+ + | Care Neurosurgeon Name | Role | Phone | + [...] | | | | [K31.9] | | [address] Phone: | | | | | Procedures | | [phone] | | | | | [place] | | Fax: | | | | | ESOPHAGOGAST | | [phone] | | | | | RODUODENOSCO | | | | | | | PY TRANSORAL | | | | | | | DIAGNOSTIC | | | | | | | [place] EDG US | | | | | [...] INTRA OP [address] | [place] [address] | | | | | [place] | [phone] | | | | | [address] | | | | | | [phone] | | | +--------+ + + + [...] handed off to recovery nurse. VSS and [facility] | | | 2 | | [...] 01/13/19 1323 by | | nicolas | ljce-vym-mevvsy catheter system; | Jacklyn Gore RN | [...]
--- OUTSIDE RECORDS SUMMARY | ~2019-10-14 | XMS | Encounter Summary ---
Demographics + + + | Address | [address] | | | [place] [address] | + + + | Home Phone | | + + + | Preferred Language | Unknown | + + + | Marital Status | | + + + | Bahai Affiliation | NRP | + + + [...] + | Matthew Ramirez | CHRIS | [address] | | | | | [place] | | | | | [address] | | + + + + + | Nella Haque | ECON | Unknown | | + + + + + Care Team Providers + +------+ + | Care Conditioning Yard Supervisor Name | Role | Phone | [...] | | | | | | | [place] | | | | | | | [place] | | | | | | | [address], [address] | | | | | | | [facility] | | | | | | | [place], [place] | | | | | | | [address] | | | | | | | Phone: | | | | | | | [phone] | | | | | | | Fax: | | | | | | | [phone] | +--------+--------+ + + + + Encounter [...] | | | [address] | [facility] [address] | | | | | [address] | [place], [place] | | | | | Pavilion, 7th floor | [address] | | | | | [place], [place] | [phone] | | | | | [address] | | | | | | [phone] | | | +--------+ + + + [...]
--- OUTSIDE RECORDS SUMMARY | ~2019-10-14 | XMS | Encounter Summary ---
Demographics + + + | Address | [address] | | | [place] [address] | + + + | Home Phone [...] + + | Author | [facility] | | | and Nenoana | + + + | Organization | [facility] | | [...] + | Matthew Ramirez | ECON | [address] | | | | | [place] | | | | | [address] | | + + + + + Care Team Providers + +------+ + | Care Welding Operator Name | Role | Phone | [...] | 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 | [address] [place] | | | | | adenocarcino | [address] | [place], | | | | | ma (HCC) | [address]VD | [place] [address] | | | | | Procedures | [place], [place] | Phone: | | | | | CT Chest | [address] | [phone] | | | | | Abdomen | Phone: | Fax: | | | | | Pelvis w | [phone] | [phone] | | | | | Contrast | Fax: | | | | | | CHG CT | [phone] | | | | | | SCAN,ABDOMEN [...] | | ma (HCC) | [address]VD | [place] | | | | | | [place], [place] | [place], | | | | | | [address] | [place] [address] | | | | | | Phone: | Phone: | | | | | | [phone] | [phone] | | | | | | Fax: | Fax: | | | | | | [phone] | [phone] | +--------+ + + + + + Reason for Visit + + + | Reason | Comments | + + + | Results, Pathology | | + + + Encounter Details +--------+ + + + + | Date | Type | Department | Care Team | Description | +--------+ + + + + | 12/29/ | Telephone | [facility] | Matthew Shukla MD | Results, Pathology | | 2019 | | GASTROENTEROLOGY | [address] [facility] | | | | | [address] | [place], [place] | | | | | [address] [place], [place] | [address] | | | | | [address] | [phone] | | | | | [phone] | | | +--------+ + + + [...] +--------+ + + | AMB REFERRAL TO [facility] | Outpatient | Routin | Gastric [...]
--- OUTSIDE RECORDS SUMMARY | ~2019-10-14 | XMS | Encounter Summary ---
Demographics + + + | Address | [address] | | | [place] [address] | + + + | Home Phone [...] + | Matthew Ramirez | CHRIS | [address] | | | | | [place] | | | | | [address] | | + + + + + | Nella Haque | ECON | Unknown | | + + + + + Care Team Providers + +------+ + | Care Floorhand Name | Role | Phone | + [...] | | | | | | | [facility] | | | | | | | [place] | | | | | | | Pavilion | | | | | | | ([facility]) | | | | | | | [place], | | | | | | | [place] [address] | | | | | | | Phone: | | | | | | | [phone] | | | | | | | Fax: | | | | | | | [phone] | +--------+--------+ + + + + Encounter Details +--------+ + + + + | Date | Type | Department | Care Team | Description | +--------+ + + + + | 10/26/ | Hospital | [facility] [address] | Avis Rios | | | 2010 | Encounter | [address] | MD Gillian [address] | | | | | [facility] | [address] | | | | | [place] [facility] | [place], [place] | | | | | ([facility]) | [address] | | | | | [place], [place] | [phone] | | | | | [address] | | | | | | [phone] | | | +--------+ + + + [...] Discharge Instructions Instructions Laura Mendes RN - 10/26/2010[facility] Transvaginal Suburethral Sling WHAT YOU SHOULD KNOW A transvaginal suburethral sling is surgery to treat stress incontinence (im-AOG-dnw-nasima) . The goal of surgery is to [...] TO REACH YOUR DOCTOR Friday call the [facility] at [phone] After hours, weekend and holidays call the Hospital Marketing Program Manager at [phone]. Ask them to page your doctor. RETURN [...] nostril | | | | | | [place] | once daily. | | | | [...]
--- OUTSIDE RECORDS SUMMARY | ~2019-10-14 | XMS | Encounter Summary ---
Demographics + + + | Address | [address] | | | [place] [address] | + + + | Home Phone | | + + + | Preferred Language | Unknown | + + + | Marital Status | | + + + | Sikhism Affiliation | Unknown | + + + | Race | Unknown | + + + | Ethnic Group | Unknown | + + + Author + + + | Author | [facility] | | | and Nenoana | + + + | Organization | [facility] | | | and Nenoana [...] + | Matthew Ramirez | ECON | [address] | | | | | [place] | | | | | [address] | | + + + + + Care Team Providers + +------+ + | Care Fiberglass Grinder Name | Role | Phone | [...] HOSPITAL OR INTRA OP | JACKIE Sanon [address] | | | | | [address] [place] | [facility] [place], | | | | | [place], [place] | [place] [address] | | | | | [address] | [phone] | | | | | [phone] | | | +--------+ + + + [...]
--- OUTSIDE RECORDS SUMMARY | ~2019-10-14 | XMS | Encounter Summary ---
Demographics + + + | Address | [address] | | | [place] [address] | + + + | Home Phone [...] + | Matthew Ramirez | CHRIS | [address] | | | | | [place] | | | | | [address] | | + + + + + | Nella Lowery ECON | Unknown | | + + + + + Care Team Providers + +------+ + | Care Child Monitor Name | Role | Phone | + [...] | | | Ave Mail Code: | [place], [place] | | | | | [facility] | [address] | | | | | and Healing, | [phone] | | | | | [address] | | | | | | [place], [place] | | | | | | [address] | | | | | | [phone] | | | +--------+ + + + [...]
--- OUTSIDE RECORDS SUMMARY | ~2019-10-14 | XMS | Encounter Summary ---
Demographics + + + | Address | [address] | | | [place] [address] | + + + | Home Phone [...] | Author | [facility] | | | and Nenoana | + + + | Organization | [facility] | [...] + | Matthew Ramirez | ECON | [address] | | | | | [place] | | | | | [address] | | + + + + + Care Team Providers + +------+ + | Care Webmethods Architect Name | Role | Phone | [...] + | 12/17/ | Telephone | [facility] | Matthew Shukla MD | Procedure | | 2019 | | GASTROENTEROLOGY | [address] [facility] | | | | | [address] [facility] | [place], [place] | | | | | [address] [place], [place] | [address] | | | | | [address] | [phone] | | | | | [phone] | | | +--------+ + + + [...]
--- OUTSIDE RECORDS SUMMARY | ~2019-10-14 | XMS | Encounter Summary ---
Demographics + + + | Address | [address] | | | [place] [address] | + + + | Home Phone [...] + | Matthew Ramirez | CHRIS | [address] | | | | | [place] | | | | | [address] | | + + + + + | Nella Haque | ECON | Unknown | | + + + + + Care Team Providers + +------+ + | Care Petrology Teacher Name | Role | Phone | [...] | | | | | stress | [place], [place] | [place], [place] | | | | | incontinence | [address] | [address] | | | | | Procedures | Phone: | Phone: | | | | | REQUEST TO | [phone] | [phone] | | | | | SURGERY | Fax: | Fax: | | | | | DESIGN MAINTENANCE ENGINEER | [phone] | [phone] | | | | | [place] | | | | | | | CYSTOU[place] | | | | | | | [place] | | | | | | | SLING OPER | | | | | | | STRES | | | | | | | INCONTINENCE | | | +--------+--------+ + + + + Encounter Details +--------+---------+ + + + | Date | Type | Department | Care Team | Description | +--------+---------+ + + + | 11/29/ | Office | [facility] | Avis Rois | Postop check | | 2010 | Visit | [facility] | MD Gillian [address] | (Primary Dx) | | | | [address] | [address] | | | | | [address] | [place], [place] | | | | | [place], [facility] floor | [address] | | | | | [place], [place] | [phone] | | | | | [address] | | | | | | [phone] | | | +--------+---------+ + + + [...]
--- OUTSIDE RECORDS SUMMARY | ~2019-10-14 | XMS | Encounter Summary ---
Demographics + + + | Address | [address] | | | [place] [address] | + + + | Home Phone [...] + | Matthew Ramirez | CHRIS | [address] | | | | | [place] | | | | | [address] | | + + + + + | Nella Mitchellox Beverley ECON | Unknown | | + + + + + Care Team Providers + +------+ + | Care Pulper Tender Name | Role | Phone | + +------+ + | Long Copeland MD | PCP | | + +------+ + Encounter Details +--------+ + + + + | Date | Type | Department | Care Team | Description | +--------+ + + + + | 01/28/ | Scoop Driver | Surgical Oncology | Cristel Galicia MD | Gastric | | 2019 | | at [facility] [address] | [address] | adenocarcinoma (HCC) | | | | Ave Mail Code: | [place], [place] | (Primary Dx) | | | | [facility] | [address] | | | | | and Healing, | [phone] | | | | | [address] | | | | | | [place], [place] | | | | | | [address] | | | | | | [phone] | | | +--------+ + + + [...] Electronically | | Pathologic | to [id number]; | | DEPARTMENT | signed by Bonifacio [...] PathologistPathology, | | | | | | [facility] retickr [facility] | | | | | | UniversityMy [...] [facility] | | | Received | Institution: [place] | | DEPARTMENT | | | | [facility] | | OF | | | | [place], [place] | | PATHOLOGY | | | | [id number] Accession | | | | | | Number: | | | | | | [id number] | | | | | | Collection [...] [facility] | [address] | [place] [address] | | | PATHOLOGY | [address] | | | + + + + + documented in this encounter Visit Diagnoses + + | Diagnosis | + + | Gastric adenocarcinoma (HCC) - Primary Malignant neoplasm of stomach, unspecified | | site | + + documented in this encounter"
--- OUTSIDE RECORDS SUMMARY | ~2019-10-14 | XMS | Encounter Summary ---
Demographics + + + | Address | [address] | | | [place] [address] | + + + | Home Phone [...] + | Matthew Ramirez | CHRIS | [address] | | | | | [place] | | | | | [address] | | + + + + + | Nella Haque | ECON | Unknown | | + + + + + Care Team Providers + +------+ + | Care Bryologist Name | Role | Phone | + [...] | | sphincter | MD Gillian | [address] | | | | | deficiency | [address] | [place] | | | | | (ISD) | [address] | [address] | | | | | Urinary | Rd | floor | | | | | stress | [place], [place] | [place], [place] | | | | | incontinence | [address] | [address] | | | | | Procedures | Phone: | Phone: | | | | | REQUEST TO | [phone] | [phone] | | | | | SURGERY | Fax: | Fax: | | | | | RADIATION CONTROL HEALTH PHYSICIST | [phone] | [phone] | | | | | [place] | | | | | | | [place] | | | | | | | [place] | | | | | | | [...] evaluation | | 2010 | Visit | [facility] | MD Gillian [address] | (Primary Dx); | | | | [address] | [address] | Urinary incontinence | | | | [address] | [place], [place] | | | | | [place], [facility] floor | [address] | | | | | [place], [place] | [phone] | | | | | [address] | | | | | | [phone] | | | +--------+---------+ + + + [...] - 10/25/2010 10:59 AM PDTDirections to [facility] in [facility] Exit the Lobby of the [facility] and turn right to take elevator 2 to the 9th floor of the [facility]. Follow signs directing you to the [place] [facility]. The [facility] is located on the 4th floor of the [facility] and [facility] ([facility]) just next to the exit for the tram. To return to the [facility] or to any of the facilities located on [facility], you will need a tram pass. These are available at no charge to patients with scheduled appointme nts and to those people accompanying them. For a tram pass, ask the case management social worker in the lob by of the [facility] or the person who checks you in for your [facility] appointment. Electronically minnie d by Jackie [...] 300 mg by mouth three times daily. Bdlzwplarwc-Utimibnep-Zir C-Mn (GLUCOSAMINE CHONDROITIN MAXSTR) 500-400 mg Oral [...] the evening. triamcinolone 55 mcg Nasal Aerosol, [place] Instill 2 Sprays into each nostril once [...] Ramirez Number of Children: 3 Occupational History [employer] Social History Main Topics Smoking status: Never Smoker Smokeless tobacco: Never Used Alcohol Use: Yes 0-3/day- wine Drug Use: No Sexually Active: No partner not able Social History Narrative Lives with partner in [facility]- 34yrs. Son in [place]. 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 Now traveling [employer]. Review of Systems: Per HPI. All other systems negative PHYSICAL EXAM: BP 140/90 | Pulse 86 | Ht 1.746 m (5' 8.74") | Wt 104.373 kg (230 lb 1.6 oz) | SpO2 99% | B ND 34.24 kg/(m^2) GENERAL: Healthy Appearing, No acute [...] view image for the detailed interpretation from [facility] results. | CARDIOLOGY | + + + + + + + + | Performing | Address | City/State/Zipcode | Phone Number | | Organization | | | | + + + + + | [facility] | [address] | [place], [place] | | | CARDIOLOGY | [address] | [address] | | + + + + + [...] DEPARTMENT OF | [address] | [place] [address] | | | PATHOLOGY | [address] [...] + + + | [facility] | [address] | [place] [address] | | | PATHOLOGY | [address] | | | + + + + + documented in this encounter Visit Diagnoses + + | Diagnosis | + + | Pre-op evaluation - Primary Preoperative examination, unspecified | + + | Urinary incontinence Unspecified urinary incontinence | + + documented in this encounter
--- OUTSIDE RECORDS SUMMARY | ~2019-10-14 | XMS | Encounter Summary ---
Demographics + + + | Address | [address] | | | [place] [address] | + + + | Home Phone [...] | Author | [facility] | | | and Nenoana | + + + | Organization | [facility] | | | and Nenoana [...] + | Matthew Gomez | ECON | [address] | | | | | [place] | | | | | [address] | | + + + + + Care Team Providers + +------+ + | Care Cartography Professor Name | Role | Phone | [...] | | | | [K31.9] | | [address] Phone: | | | | | Procedures | | [phone] | | | | | MD | | Fax: | | | | | ESOPHAGOGAST | | [phone] | | | | | RODUODENOSCO | | | | | | | PY TRANSORAL | | | | | | | DIAGNOSTIC | | | | | | | MD EDG US | | | | | [...] | | | [address] | [address] | | | | | [address] | | | | | | [phone] | | | +--------+---------+ + + + [...] | [facility] | | ASHLY GOMEZ | [place] | | : 1940 AGE: 78 years SEX: Female | [facility] | | | LABORATORY | | Acct: [id number] Location: | [facility] | | [facility] ([place] [place]); [facility]; [place] | | | [facility] | | | Case #: [id number] Ordering: | | | SUUKMAR STEVENSON MD Client: [facility] | | | [facility] Copy To: | | | Printed: [...] fragments. | | | Mild inactive chronic gastritis.[facility]/SK 01/14/19 01:36 pmVerified | | | by: ANNABELLE FULELR MDVerify Date: 01/20/2019 09:40 [facility] | | | [facility] [address] | | | SURGICAL PATHOLOGY FINAL REPORTCollected: [...] stain appropriately.As a part of our quality head | | | policy, this case has [...] developed and their performance characteristics determined by [facility]. This test is used for clinical | | | purposes. It should not be regarded as investigational or for | | | research. [facility] is certified under the Clinical | | | Laboratory Improvement Amendments of 1988 (CLIA) as qualified to | | | perform high complexity clinical laboratory testing. | | + + + + + + + + | Performing | Address | City/State/[facility] | Phone Number | | Organization | | | | + + + + + | [facility] | [address] [place] [address]. | [place] [address] | | | [facility] | | | | | LABORATORY [place] | | | | + + + + + EUS Upper (01/13/2019 11:39 AM PDT) + + | Specimen | + + | | + + + + + | Narrative | Performed At | + + + | [facility] | [facility] | | [facility] | [place]OVATION | | CenterGI | | | Patient Name: Ashly Gomez Procedure | | | Date: 01/13/2019 11:39 AMMRN: [id number] | | | of : 1940 | [...] Dr. SanReferring: | | | MATTHEW SAN, [facility]ITALedicines: Monitored | | | Anesthesia CareComplications: [...] AMNumber | | | of Addenda: 0 [facility] - | | | Endoscopy Services | | | | | |SUKUMAR STEVENSON MD | | |01/13/2019 1:07:25 PM | | |This report has been signed electronically. | | | | | |Note Initiated On: 01/13/2019 11:39 AM | | |Number of Addenda: 0 | | | | | | [facility] | | + [...] | TRACEMASTER | | Duration:172 msP Horizontal [place]:28 degP Front [place]:60 degQ Onset:512 | | | msQRSD Interval:136 msQT Interval:448 msQTcB:477 msQTcF:467 msQRS | | | Horizontal [place]:150 degQRS [place]:-35 degI-40 Horizontal [place]:34 degI-40 | | | Front [place]:74 degT-40 Horizontal [place]:151 degT-40 Front [place]:-77 degT | | | Horizontal [place]:8 degT Wave [place]:51 degS-T Horizontal [place]:21 degS-T | | | Front [place]:83 degSeverity:- ABNORMAL ECG -INTERP:SINUS | | | RHYTHMINTERP:VENTRICULAR PREMATURE COMPLEXINTERP:RBBB AND | | | LAFBINTERP:LEFT VENTRICULAR HYPERTROPHYElectronically signed by: | | | ANDREAS MAXWELL 01-18-2019 07:24:33 | | |QTcF:467 ms | | |QRS Horizontal [place]:150 deg | | |QRS [place]:-35 deg | | |I-40 Horizontal [place]:34 deg | | |I-40 Front [place]:74 deg | | |T-40 Horizontal [place]:151 deg | | |T-40 Front [place]:-77 deg | | |T Horizontal [place]:8 deg | | |T Wave [place]:51 deg | | |S-T Horizontal [place]:21 deg | | |S-T Front [place]:83 deg | | |Severity:- ABNORMAL ECG - [...] + + | [facility] TRACEMASTER | [address] | [place] [address] | [phone] | + + + + + POC Glucose (01/13/2019 10:06 AM PDT) + + + + + + | Component | Value | Ref Range | Performed | Pathologist | | | | | At | Signature | + + + + + + | Glucose, | 111 (H)Comment: | 65 - 99 mg/dL | [facility] | | | POC | Performed by [place] [address] | | [place] | | | | [address] [place], [place] | | HEART | | | | [address] | | MEDICAL | | | | [...] + + | [facility] | [address] | [place] [address] | | | [facility] | | | | | [...] scheduled: AC, NPO, Daytime | | | 4813-7815 Use NIGHT DOSE for | | | doses scheduled: HS, 3AM, | | | Nighttime 3964-0051 If the BG is | | | [...]
--- OUTSIDE RECORDS SUMMARY | ~2019-10-14 | XMS | Encounter Summary ---
Demographics + + + | Address | [address] | | | [place] [address] | + + + | Home Phone [...] + | Matthew Ramirez | CHRIS | [address] | | | | | [place] | | | | | [address] | | + + + + + | Nella Haque | ECON | Unknown | | + + + + + Care Team Providers + +------+ + | Care Terminal Superintendent Name | Role | Phone | + [...] Visit | Medicine Clinic at | T, FILER REPAIRER-C,MPH | Preop examination; | | | | [facility] 4th Floor [address] | | Diabetes mellitus | | | | [address] | | screening; Other | | | | Mailcode: CH4S | | specified | | | | [facility] | | pre-operative | | | | and Healing, | | examination | | | | Building 1,4th Floor | | | | | | [place], [place] | | | | | | [address] | | | | | | [phone] | | | +--------+---------+ + + + [...] % (0.1 mg/g) Vaginal Cream folic acid Yotvdxpbmvt-Tlzkwrsnx-Rzs C-Mn (GLUCOSAMINE CHONDROITIN MAXSTR)- HOLD 7 days [...] OR NON-STEROIDAL ANTI-INFLAMMATORY DRUGS (NSAIDs) Advil, Aleve, Roxanne-Tall[place], Anacin, Arthopan, Ascriptin, Aspergum, Aspirin with and [...] Phenylbutazone, Piroxicam, Propoxyphene, Relafen, Robomol, Rufen, Sine-aid, Eunice s cold tablets, Sulindac, Talwin, Tolectin, Triaminicin, [...] perfume, lotions or powder. Remove any nail colombian from at least one fingernail. Do not [...] Surgery Check in Locations Day Stay Unit [phone], [facility], fourth floor Room 4517 Surgery Check in Time Check-in times for Hospital Admissions are not available until the day prior to surgery. So meone from your surgeon's office or the hospital will contact you with your check in time. I f you do not hear from anyone by 3:00 PM please call your surgeons' office for [id number] . Going Home Your surgeon will decide [...] it is after office hours, call the [facility] cocoa butter filter operator at [phone] and ask them to page your doc [...] Scanned H&P. H and P entered into Audiolifecity(Chart review, Media tab). Vy Sosa RN, KAELA, MPH PREOPER[facility] [address] Mail Code: [facility],4th [facility] [address] documente d in this encounter Plan of Treatment Not on filedocumented as of this encounter Procedures + +--------+ + + + | Procedure Name | Priori | Date/Time | Associated Diagnosis | Comments | | | ty | | | | + +--------+ + + + | DE COLLECTION VENOUS | Routin | 10/25/2010 | [...] POINT | [address] | [place] [address] | | | OF CARE TESTS | [...] | | | DEPARTMENT | | | SRI LANKAN | | | OF | | | [...] + | [facility] | [address] | [place] [address] | | | PATHOLOGY | [address] [...] + | [facility] DEPARTMENT OF | [address] | [place] [address] | | | PATHOLOGY | [address] [...] + | [facility] | [address] | [place] [address] | | | PATHOLOGY | [address] [...]
--- OUTSIDE RECORDS SUMMARY | ~2019-10-14 | XMS | Encounter Summary ---
Demographics + + + | Address | [address] | | | [place] [address] | + + + | Home Phone [...] + | Author | [facility] | | | and Nenoana | + + + | Organization | [facility] [...] + | Matthew Ramirez | ECON | [address] | | | | | [place] | | | | | [address] | | + + + + + Care Team Providers + +------+ + | Care Java J2Ee Software Engineer Name | Role | Phone [...] + | 02/13/ | Anesthesia | [facility] | Mayank Honeycutt, | | | 2017 | Event | HOSPITAL OR INTRA OP | STEAM ENGINEER [address] | | | | [address] | [place] [address] | | | | | [place], [place] | [phone] | | | | | [address] | | | | | | [phone] | | | +--------+ + + + + Anesthesia Record + + + + + | Procedure Name | Responsible | Anesthesia Start | Anesthesia Stop Time | | | Anesthesiologist | Time | | + + + + + | ARTHROPLASTY 3rd and | Mayank Honeycutt, | 02/13/18 1306 | 02/13/18 1440 | | 4th Digits with | STEAM ENGINEER | | | | Impalnt Revision | [...] Pt A&O x3, comfortable, conversing, return to [facility] in bed. | | | 4 [...] 1530 by | | eral | Antecubital; [id number] | Steve Parry RN | [place] [...]
--- OUTSIDE RECORDS SUMMARY | ~2019-10-14 | XMS | Encounter Summary ---
Demographics + + + | Address | [address] | | | [place] [address] | + + + | Home Phone [...] + | Matthew Ramirez | CHRIS | [address] | | | | | [place] | | | | | [address] | | + + + + + | Nella Lowery ECON | Unknown | | + + + + + Care Team Providers + +------+ + | Care Librarian Name | Role | Phone | [...] 2019 | Requisition | [address]LA[address] [place] | [address] | | | | | [address] [place], [place] | [place], [place] | | | | | [address] | [address] | | | | | | [phone] | | | | | | | [...] + + + + | [facility] | [address] [facility] [address] | [place] [address] | | | DIAGNOSTIC | [address] | | | | LABORATORIES | | | | + + + + + documented in this encounter Visit Diagnoses + + | Diagnosis | + + | Encounter for other screening for genetic and chromosomal anomalies | + + documented in this encounter"
--- OUTSIDE RECORDS SUMMARY | ~2019-10-14 | XMS | Encounter Summary ---
Demographics + + + | Address | [address] | | | [place] [address] | + + + | Home Phone [...] | [facility] | | | and Nenoana | + + + | Organization | [facility] [...] + | Matthew Gomez | ECON | [address] | | | | | [place] | | | | | [address] | | + + + + + Care Team Providers + +------+ + | Care Therapeutic Activities Services Worker Name | Role | Phone | [...] | | | | [K31.9] | | [address] Phone: | | | | | Procedures | | [phone] | | | | | [place] | | Fax: | | | | | ESOPHAGOGAST | | [phone] | | | | | RODUODENOSCO | [...] | | | [address] | [address] | | | | | [address] | | | | | | [phone] | | | +--------+---------+ + + + [...] | [facility] | | ASHLY GOMEZ | [place] | | : 1940 AGE: 78 years SEX: Female | [facility] | | | LABORATORY | | Acct: [id number] Location: | [facility] | | [facility]; [facility] MEDICAL PROCEDURE UNIT [place]; [facility] | | | MEDICAL PROCEDURE UNIT [place] | | | Case #: [id number] Ordering: | | | SUKUMAR STEVENSON MD Client: [facility] | | | [employer] Copy To: | | | Printed: 01/20/2019 [...] fragments. | | | Mild inactive chronic gastritis.[facility]/SK 01/14/19 01:36 pmVerified | | | by: ANNABELLE FULLER MDVerify Date: 01/20/2019 09:40 [facility] | | | [facility] [address] | | | SURGICAL PATHOLOGY FINAL REPORTCollected: [...] stain appropriately.As a part of our quality and reliability engineer | | | policy, this case [...] developed and their performance characteristics determined by [facility]. This test is used for clinical [...] + + | Performing | Address | City/State/[facility] | Phone Number | | Organization | | | | + + + + + | [facility] | [address] [place] [address]. | [place] [address] | | | [facility] | | | | | LABORATORY [place] | | | | + + + + + EUS Upper (01/13/2019 11:39 AM PDT) + + | Specimen | + + | | + + + + + | Narrative | Performed At | + + + | [facility] | [facility] | | [facility] | [place]OVATION | | CenterGI | | | Patient Name: Ashly Gomez Procedure | | | Date: 01/13/2019 11:39 AMMRN: [id number] | | | of : 1940 | [...] | | | MATTHEW SAN, [facility]ITALedic[facility]: Monitored | | | Anesthesia CareComplications: [...] | TRACEMASTER | | Duration:172 msP Horizontal [place]:28 degP Front [place]:60 degQ Onset:512 | | | msQRSD Interval:136 msQT Interval:448 msQTcB:477 msQTcF:467 msQRS | | | Horizontal [place]:150 degQRS [place]:-35 degI-40 Horizontal [place]:34 degI-40 | | | Front [place]:74 degT-40 Horizontal [place]:151 degT-40 Front [place]:-77 degT | | | Horizontal [place]:8 degT Wave [place]:51 degS-T Horizontal [place]:21 degS-T | | | Front [place]:83 degSeverity:- ABNORMAL ECG -INTERP:SINUS | | | RHYTHMINTERP:VENTRICULAR PREMATURE COMPLEXINTERP:RBBB AND | | | LAFBINTERP:LEFT VENTRICULAR HYPERTROPHYElectronically signed by: | | | ANDREAS MAXWELL 01-18-2019 07:24:33 | | |QTcF:467 ms | | |QRS Horizontal [place]:150 deg | | |QRS [place]:-35 deg | | |I-40 Horizontal [place]:34 deg | | |I-40 Front [place]:74 deg | | |T-40 Horizontal [place]:151 deg | | |T-40 Front [place]:-77 deg | | |T Horizontal [place]:8 deg | | |T Wave [place]:51 deg | | |S-T Horizontal [place]:21 deg | | |S-T Front [place]:83 deg | | |Severity:- ABNORMAL ECG - [...] + + | [facility] TRACEMASTER | [address] | [place] [address] | [phone] | + + + + + POC Glucose (01/13/2019 10:06 AM PDT) + + + + + + | Component | Value | Ref Range | Performed | Pathologist | | | | | At | Signature | + + + + + + | Glucose, | 111 (H)Comment: | 65 - 99 mg/dL | [facility] | | | POC | Performed by [facility] [address] | | [place] | | | | [address] [place], [place] | | HEART | | | | [address] | | MEDICAL | | | | [...] + + | [facility] | [address] | [place] [address] | | | [facility] | | | | | LABORATORY [...] scheduled: AC, NPO, Daytime | | | 5458-6973 Use NIGHT DOSE for | | | doses scheduled: HS, 3AM, | | | Nighttime 1156-0780 If the BG is | | | [...]
--- OUTSIDE RECORDS SUMMARY | ~2019-10-14 | XMS | Encounter Summary ---
Demographics + + + | Address | [address] | | | [place] [address] | + + + | Home Phone [...] + | Matthew Ramirez | CHRIS | [address] | | | | | [place] | | | | | [address] | | + + + + + | Nella Haque | ECON | Unknown | | + + + + + Care Team Providers + +------+ + | Care Cake Stripper Name | Role | Phone | [...] 2019 | | Clinics at | [address] [facility] | (tamoxifen) | | | | [facility] | [facility], | | | | | [facility] and | [place] [address] | | | | | Healing [address] | | | | | | [place], [place] | | | | | | [address] | | | | | | [phone] | | | +--------+ + + + [...]
--- OUTSIDE RECORDS SUMMARY | ~2019-10-14 | XMS | Encounter Summary ---
Demographics + + + | Address | [address] | | | [place] [address] | + + + | Home Phone [...] + | Matthew Ramirez | CHRIS | [address] | | | | | [place] | | | | | [address] | | + + + + + | Nella Haque | ECON | Unknown | | + + + + + Care Team Providers + +------+ + | Care Bisque Brusher Name | Role | Phone | + [...] | | | Ave Mail Code: | [place], [place] | | | | | [facility] | [address] | | | | | and [place], | [phone] | | | | | Building [address] | | | | | | [place], [place] | | | | | | [address] | | | | | | [phone] | | | +--------+ + + + [...]
--- OUTSIDE RECORDS SUMMARY | ~2019-10-14 | XMS | Encounter Summary ---
Demographics + + + | Address | [address] | | | [place] [address] | + + + | Home Phone [...] | [facility] | | | and Nenoana | + + + | Organization | [facility] | | | [...] + | Matthew Ramirez | ECON | [address] | | | | | [place] | | | | | [address] | | + + + + + Care Team Providers + +------+ + | Care Clinical Nursing Intern Name | Role | Phone | [...] | | | [address] [place] | [place] [address] | | | | | [place] [address] | | | | | | [phone] | | | +--------+ + + + [...]
--- OUTSIDE RECORDS SUMMARY | ~2019-10-14 | XMS | Encounter Summary ---
Demographics + + + | Address | [address] | | | [place] [address] | + + + | Home Phone [...] | Author | [facility] | | | and Nenoana | + + + | Organization | [facility] | | [...] + | Matthew Ramirez | ECON | [address] | | | | | [place] | | | | | [address] | | + + + + + Care Team Providers + +------+ + | Care Pie Crust Mixer Name | Role | Phone | [...] | | | [address] [place] | [place] [address] | | | | | [place] [address] | | | | | | [phone] | | | +--------+ + + + [...]
--- OUTSIDE RECORDS SUMMARY | ~2019-10-14 | XMS | Encounter Summary ---
Demographics + + + | Address | [address] | | | [place] [address] | + + + | Home Phone [...] | Author | [facility] | | | and Nenoana | + + + | Organization | [facility] | [...] + | Matthew Ramirez | ECON | [address] | | | | | [place] | | | | | [address] | | + + + + + Care Team Providers + +------+ + | Care Cloth Printer Helper Name | Role | Phone | + +------+ + | Ashly Rojo PA-C | PCP | | + +------+ + Encounter Details +--------+ + + + + | Date | Type | Department | Care Team | Description | +--------+ + + + + | 01/05/ | Abstract | [facility] | Provider, | | | 2019 | | SURGERY [address] | MD [address] | | | | | [address] [place], [place] | [place] | | | | | [address] | [place] [address] | | | | | [phone] | | | +--------+ + + + [...]
--- OUTSIDE RECORDS SUMMARY | ~2019-10-14 | XMS | Encounter Summary ---
Demographics + + + | Address | [address] | | | [place] [address] | + + + | Home Phone [...] + | Matthew Ramirez | ECON | [address] | | | | | [place] | | | | | [address] | | + + + + + | Nella Haque | ECON | Unknown | | + + + + + Care Team Providers + +------+ + | Care Silk Screen Operator Name | Role | Phone | [...]
--- OUTSIDE RECORDS SUMMARY | ~2019-10-14 | XMS | Encounter Summary ---
Demographics + + + | Address | [address] | | | [place] [address] | + + + | Home Phone [...] | Author | [facility] | | | and Nenoana | + + + | Organization | [facility] | | [...] + | Matthew Ramirez | CHRIS | [address] | | | | | [place] | | | | | [address] | | + + + + + Care Team Providers + +------+ + | Care Planning Advisor Name | Role | Phone | + +------+ + PCP | Unavailable | + +------+ + Encounter Details +--------+ + + + + | Date | Type | Department | Care Team | Description | +--------+ + + + + | 11/24/ | Hospital | [facility] | [place], | | | 2009 | Encounter | MED CTR GENERIC OP | Katerin Xavier MD | | | | | CONV DEPT [address] | | | | | | [place], | | | | | | [place] [address] | | | | | | [phone] | | | +--------+ + + + [...]
--- OUTSIDE RECORDS SUMMARY | ~2019-10-14 | XMS | Encounter Summary ---
Demographics + + + | Address | [address] | | | [place] [address] | + + + | Home Phone [...] Author | [facility] | | | and Nenoana | + + + | Organization | [facility] [...] + | Matthew Ramirez | ECON | [address] | | | | | [place] | | | | | [address] | | + + + + + Care Team Providers + +------+ + | Care Research And Development Chemist Name | Role | Phone | + [...] | | cancer | Luis Richards, | [place] | | | | | metastasized | MD [address] | [place], [place] | | | | | to multiple | [address] | [address] | | | | | sites, left | [place], | Phone: | | | | | (HCC) | [place] [address] | [phone] | | | | | Procedures | Phone: | Fax: | | | | | PET CT Skull | [phone] | [phone] | | | | | Base To Mid | Fax: | | | | | | Thigh | [phone] | | +--------+--------+ + + + + [...] | | cancer | Luis Richards, | [place] | | | | | metastasized | MD [address] | [place], [place] | | | | | to multiple | [address] | [address] | | | | | sites, left | [place], | Phone: | | | | | (HCC) | [place] [address] | [phone] | | | | | Procedures | Phone: | Fax: | | | | | PET CT Skull | [phone] | [phone] | | | | | Base To Mid | Fax: | | | | | | Thigh | [phone] | | +--------+--------+ + + + + Encounter Details +--------+ + + + + | Date | Type | Department | Care Team | Description | +--------+ + + + + | 07/21/ | Hospital | [facility] | [place], | Breast cancer | | 2020 | Encounter | MED CTR PET SCAN | Luis Richards MD [address] | metastasized to | | | | [address] [place] | [address] [place] | multiple sites, left | | | | [place] [address] | [place] [address] | (HCC) | | | | [phone] | [phone] | | | | | | | [...] millicur | | | | Intravenous, ONCE, [facility] 07/22/19 at | | AM PDT | ies | | | | 0930, For 1 dose | | | | | | + +--------+ + +------+------+ +---+---+ | | | +---+---+ documented in this encounter
--- OUTSIDE RECORDS SUMMARY | ~2019-10-14 | XMS | Encounter Summary ---
Demographics + + + | Address | [address] | | | [place] [address] | + + + | Home Phone [...] | Author | [facility] | | | and Nenoana | + + + | Organization | [facility] | | [...] + | Matthew Ramirez | CHRIS | [address] | | | | | [place] | | | | | [address] | | + + + + + Care Team Providers + +------+ + | Care Horizontal Boring Mill Operator Name | Role | Phone | + +------+ + PCP | Unavailable | + +------+ + Encounter Details +--------+ + + + + | Date | Type | Department | Care Team | Description | +--------+ + + + + | 03/28/ | Hospital | [facility] | | | | 1996 | Encounter | MED CTR LABORATORY | | | | | | [address] [place] | | | | | | [place] | | | | | | [address] | | | | | | [phone] | | | +--------+ + + + [...]
--- OUTSIDE RECORDS SUMMARY | ~2019-10-14 | XMS | Encounter Summary ---
Demographics + + + | Address | [address] | | | [place] [address] | + + + | Home Phone [...] + | Author | [facility] | | | and Nenoana | + + + | Organization | [facility] | [...] + | Matthew Ramirez | CHRIS | [address] | | | | | [place] | | | | | [address] | | + + + + + Care Team Providers + +------+ + | Care Coning Machine Operator Name | Role | Phone | + +------+ + PCP | Unavailable | + +------+ + Encounter Details +--------+ + + + + | Date | Type | Department | Care Team | Description | +--------+ + + + + | 12/08/ | Hospital | [facility] | [place], | | | 2009 | Encounter | MED CTR GENERIC OP | Katerin Xavier MD | | | | | CONV DEPT [address] | | | | | | [place], | | | | | | [place] [address] | | | | | | [phone] | | | +--------+ + + + [...]
--- OUTSIDE RECORDS SUMMARY | ~2019-10-14 | XMS | Encounter Summary ---
Demographics + + + | Address | [address] | | | [place] [address] | + + + | Home Phone [...] | Author | [facility] | | | and Nenoana | + + + | Organization | [facility] [...] + | Matthew Ramirez | CHRIS | [address] | | | | | [place] | | | | | [address] | | + + + + + Care Team Providers + +------+ + | Care Corrections Cadet Name | Role | Phone | + +------+ + PCP | Unavailable | + +------+ + Encounter Details +--------+ + + + + | Date | Type | Department | Care Team | Description | +--------+ + + + + | 07/24/ | Hospital | [facility] | | | | 1999 | Encounter | MED CTR XRAY [address] | | | | | | [place] | | | | | | [place] [address] | | | | | | [phone] | | | +--------+ + + + [...]
--- OUTSIDE RECORDS SUMMARY | ~2019-10-14 | XMS | Encounter Summary ---
Demographics + + + | Address | [address] | | | [place] [address] | + + + | Home Phone [...] Author | [facility] | | | and Nenoana | + + + | Organization | [facility] | | | and [...] + | Matthew Ramirez | ECON | [address] | | | | | [place] | | | | | [address] | | + + + + + Care Team Providers + +------+ + | Care Solutions Developer Name | Role | Phone | [...] | Services | Oncology | Linitis | Arapn, | Ochoa, | | | Required | | plastica | Luis Richards, | Clinton Stringer, | | | | | ([facility]) | MD [address] | MD [address] | | | | | [address] | Ron [place]alobos | | | | | | [place], | [place], [place] | | | | | | [place] [address] | [address] | | | | | | Phone: | Phone: | | | | | | [phone] | [phone] | | | | | | Fax: | Fax: | | | | | | [phone] | [phone] | +--------+ + + + + + Encounter Details +--------+ + + + + | Date | Type | Department | Care Team | Description | +--------+ + + + + | 01/25/ | Orders Only | [facility] | Arpan, | Linitis plastica | | 2019 | | MED CTR MEDICAL | Luis Richards MD [address] | ([facility]) (Primary Dx) | | | | ONCOLOGY CLINIC [address] | [address] [place] | | | | | [address] [place] | [place] [address] | | | | | [place] [address] | [phone] | | | | | [phone] | | | +--------+ + + + [...]
--- OUTSIDE RECORDS SUMMARY | ~2019-10-14 | XMS | Encounter Summary ---
Demographics + + + | Address | [address] | | | [place] [address] | + + + | Home Phone [...] Author | [facility] | | | and Nenoana | + + + | Organization | [facility] | | | and [...] + | Matthew Ramirez | ECON | [address] | | | | | [place] | | | | | [address] | | + + + + + Care Team Providers + +------+ + | Care Guest Services Representative Name | Role | Phone | [...] + + | 01/15/ | Telephone | [facility] | Arpan, | Patient Concerns | | 2019 | | MED [facility] | Luis Richards MD [address] | | | | | ONCOLOGY CLINIC [address] | [facility] | | | | | [address] [place] | [place] [address] | | | | | [place] [address] | [phone] | | | | | [phone] | | | +--------+ + + + [...]
--- OUTSIDE RECORDS SUMMARY | ~2019-10-14 | XMS | Encounter Summary ---
Demographics + + + | Address | [address] | | | [place] [address] | + + + | Home Phone [...] + | Matthew Ramirez | ECON | [address] | | | | | [place] | | | | | [address] | | + + + + + | Nella Haque | ECON | Unknown | | + + + + + Care Team Providers + +------+ + | Care Civil Rights Representative Name | Role | Phone | [...]
--- OUTSIDE RECORDS SUMMARY | ~2019-10-14 | XMS | Encounter Summary ---
Demographics + + + | Address | [address] | | | [place] [address] | + + + | Home Phone [...] + | Matthew Ramirez | CHRIS | [address] | | | | | [place] | | | | | [address] | | + + + + + | Nella Lowery ECON | Unknown | | + + + + + Care Team Providers + +------+ + | Care Software Systems Architect Name | Role | Phone [...] Amador | | | | | at [facility] | [facility] | | | | | [address] | [place] [address] | | | | | Loop [facility] | | | | | | [place], 2nd floor | | | | | | [place], [place] | | | | | | [address] | | | | | | [phone] | | | +--------+ + + + [...] nostril | | | | | | [place] | once daily. | | | | [...] view image for the detailed interpretation from [employer] results. | CARDIOLOGY | + + + + + + + + | Performing | Address | City/State/Zipcode | Phone Number | | Organization | | | | + + + + + | [facility] | [address] | [place], [place] | | | CARDIOLOGY | [address] | [address] | | + + + + + documented in this encounter Visit Diagnoses Not on filedocumented in this encounter
--- OUTSIDE RECORDS SUMMARY | ~2019-10-14 | XMS | Encounter Summary ---
Demographics + + + | Address | [address] | | | [place] [address] | + + + | Home Phone [...] Author | [facility] | | | and Nenoana | + + + | Organization | [facility] | | | and Nenoana [...] + | Matthew Ramirez | ECON | [address] | | | | | [place] | | | | | [address] | | + + + + + Care Team Providers + +------+ + | Care Forgesmith Name | Role | Phone | + [...] | HOSPITAL OR INTRA OP | D, DIE MAKER APPRENTICE [address] | | | | [address] | [place], [place] | | | | | [place], [place] | [address] | | | | | [address] | | | | | | [phone] | | | +--------+ + + + + Anesthesia Record + + + + + | Procedure Name | Responsible | Anesthesia Start | Anesthesia Stop Time | | | Anesthesiologist | Time | | + + + + + | Correction Josué | Luz Farias, | 03/06/17 1119 | 10/26/17 1228 | | Toes 2nd , 3rd, and | DIE MAKER APPRENTICE | | | | 4th Toes (Right [...] | 2 | | [facility]. | | | 7 | [...] | Jacklyn Dominguez | | IV | rjan-ilb-aslzgo catheter system; | | VIRI Barillas | [...] | | CONTINUOUS, Starting [facility] 03/06/17 | | AM PDT | | [...]
--- OUTSIDE RECORDS SUMMARY | ~2019-10-14 | XMS | Encounter Summary ---
Demographics + + + | Address | [address] | | | [place] [address] | + + + | Home Phone [...] + | Matthew Ramirez | CHRIS | [address] | | | | | [place] | | | | | [address] | | + + + + + | Nella Haque | ECON | Unknown | | + + + + + Care Team Providers + +------+ + | Care Diving Instructor Name | Role | Phone | [...] | | sphincter | MD Gillian | [address] | | | | | deficiency | [address] | Gabriele | | | | | (ISD) | [address] | [address] | | | | | Urinary | Rd | floor | | | | | stress | [place], [place] | [place], [place] | | | | | incontinence | [address] | [address] | | | | | Procedures | Phone: | Phone: | | | | | REQUEST TO | [phone] | [phone] | | | | | SURGERY | Fax: | Fax: | | | | | ELECTRONIC HEALTH RECORDS SPECIALIST | [phone] | [phone] | | | | | [place] | | | | | | | [place]ST[place] | | | | | | | [place] | | | | | | | [...] Visit | [facility] | MD Gillian [address] | (Primary Dx); | | | | [address] | [address] | Urinary incontinence | | | | [address] | [place], [place] | | | | | [place], [facility] floor | [address] | | | | | [place], [place] | [phone] | | | | | [address] | | | | | | [phone] | | | +--------+---------+ + + + [...] 10:59 AM PDTDirections to [facility] Clinic in [facility] Exit the Lobby of the [facility] and turn right to take elevator 2 to the 9th floor of the [facility]. Follow signs directing you to the [place] [employer]. The [facility] is located on the 4th floor of the [facility] and [facility] ([facility]) just next to the exit for the tram. To return to the [facility] or to any of the facilities located on [facility], you will need a tram pass. These are available at no charge to patients with scheduled appointme nts and to those people accompanying them. For a tram pass, ask the events traffic controller in the lob by of the [facility] or the person who checks you in for your [facility] appointment. Electronically minnie d by [...] 300 mg by mouth three times daily. Igvvzfqyimt-Ryxsjrfjh-Hcq C-Mn (GLUCOSAMINE CHONDROITIN MAXSTR) 500-400 mg Oral [...] the evening. triamcinolone 55 mcg Nasal Aerosol, [place] Instill 2 Sprays into each nostril once [...] Social History Narrative Lives with partner in [facility]- 34yrs. Son in [place]. 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 Now traveling [facility]. Review of Systems: Per HPI. All other systems negative PHYSICAL EXAM: BP 140/90 | Pulse 86 | Ht 1.746 m (5' 8.74") | Wt 104.373 kg (230 lb 1.6 oz) | SpO2 99% | B NM 34.24 kg/(m^2) GENERAL: Healthy Appearing, No acute [...] view image for the detailed interpretation from [employer] results. | CARDIOLOGY | + + + + + + + + | Performing | Address | City/State/Zipcode | Phone Number | | Organization | | | | + + + + + | [facility] | [address] | [place], [place] | | | CARDIOLOGY | [address] | [address] | | + + + + + [...] DEPARTMENT OF | [address] | [place] [address] | | | PATHOLOGY | [address] [...] + + + + | [facility] | [address] | [place] [address] | | | PATHOLOGY | [address] | | | + + + + + documented in this encounter Visit Diagnoses + + | Diagnosis | + + | Pre-op evaluation - Primary Preoperative examination, unspecified | + + | Urinary incontinence Unspecified urinary incontinence | + + documented in this encounter
--- OUTSIDE RECORDS SUMMARY | ~2019-10-14 | XMS | Encounter Summary ---
Demographics + + + | Address | [address] | | | [place] [address] | + + + | Home Phone | | + + + | Preferred Language | Unknown | + + + | Marital Status | | + + + | Alevism Affiliation | NRP | + + + [...] + | Matthew Ramirez | CHRIS | [address] | | | | | [place] | | | | | [address] | | + + + + + | Nella Garland | ECON | Unknown | | + + + + + Care Team Providers + +------+ + | Care Machine Wiper Name | Role | Phone | + [...] | | | | | ONCOLOGY | [address] | Ave | | | | | PRACTICE | Phone: | [place], [place] | | | | | | [phone] | [address] | | | | | | Fax: | Phone: | | | | | | [phone] | [phone] | | | | | | | Fax: | | | | | | | [phone] | + +---------+ + + + + Encounter Details +--------+ + + + + | Date | Type | Department | Care Team | Description | +--------+ + + + + | 03/04/ | Jewelry Sales Representative | Surgical Oncology | Cristel Galicia MD | Tumor (Primary Dx) | | 2019 | | at [facility] [address] | [address] | | | | | Ave Mail Code: | [place], [place] | | | | | [facility] | [address] | | | | | and Healing, | [phone] | | | | | Building [address] | | | | | | [place], [place] | | | | | | [address] | | | | | | [phone] | | | +--------+ + + + [...]
--- OUTSIDE RECORDS SUMMARY | ~2019-10-14 | XMS | Encounter Summary ---
Demographics + + + | Address | [address] | | | [place] [address] | + + + | Home Phone [...] + | Matthew Ramirez | CHRIS | [address] | | | | | [place] | | | | | [address] | | + + + + + | Nella Haque | ECON | Unknown | | + + + + + Care Team Providers + +------+ + | Care Manager Strategic Development Name | Role | Phone | [...] | | | | | | | [facility] | | | | | | | [address] | | | | | | | [address] | | | | | | | ([facility]) | | | | | | | [place], | | | | | | | [place] [address] | | | | | | | Phone: | | | | | | | [phone] | | | | | | | Fax: | | | | | | | [phone] | +--------+--------+ + + + + Encounter Details +--------+ + + + + | Date | Type | Department | Care Team | Description | +--------+ + + + + | 10/26/ | Hospital | [facility] [address] | Avis Rios | | | 2010 | Encounter | [address] | MD Gillian [address] | | | | | [facility] | [address] | | | | | [address] | [place], [place] | | | | | ([facility] [facility]) | [address] | | | | | [place], [place] | [phone] | | | | | [address] | | | | | | [phone] | | | +--------+ + + + [...] Discharge Instructions Instructions Laura Mendes RN - 10/26/2010[facility] Transvaginal Suburethral Sling WHAT YOU SHOULD KNOW A transvaginal suburethral sling is surgery to treat stress incontinence (tp-AQW-lod-nasima) . The goal of surgery is to [...] TO REACH YOUR DOCTOR Friday call the [facility] at [phone] After hours, weekend and holidays call the [facility] Solutions Consultant at [phone]. Ask them to page your doctor. RETURN [...] nostril | | | | | | [place] | once daily. | | | | [...]
--- OUTSIDE RECORDS SUMMARY | ~2019-10-14 | XMS | Encounter Summary ---
Demographics + + + | Address | [address] | | | [place] [address] | + + + | Home Phone [...] Author | [facility] | | | and Nenoana | + + + | Organization | [facility] | | | and [...] + | Matthew Ramirez | ECON | [address] | | | | | [place] | | | | | [address] | | + + + + + Care Team Providers + +------+ + | Care Law Tutor Name | Role | Phone | + [...] | | Procedures | [address] | [place] [address] | | | | | office visit | [place] | Phone: | | | | | | [place] [address] | [phone] | | | | | | Phone: | Fax: | | | | | | [phone] | [phone] | | | | | | Fax: | | | | | | | [phone] | | +--------+--------+ + + + + Encounter Details +--------+---------+ + + + | Date | Type | Department | Care Team | Description | +--------+---------+ + + + | 12/14/ | Office | [facility] | Matthew Shukla MD | Chronic abdominal | | 2019 | Visit | GASTROENTEROLOGY | [address] | pain (Primary Dx); | | | | [address] [facility] | [place], [place] | Diarrhea, | | | | [address] [place], [place] | [address] | unspecified type; | | | | [address] | [phone] | Rectal bleeding; | | | | [phone] | | Benzodiazepine | | | | [...] on 12/17, finishing by 0830; 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 [...]
--- OUTSIDE RECORDS SUMMARY | ~2019-10-14 | XMS | Encounter Summary ---
Demographics + + + | Address | [address] | | | [place] [address] | + + + | Home Phone [...] Author | [facility] | | | and Nenoana | + + + | Organization | [facility] [...] + | Matthew Ramirez | ECON | [address] | | | | | [place] | | | | | [address] | | + + + + + Care Team Providers + +------+ + | Care Switch Operator Name | Role | Phone | [...] | | | [address] [place] | [place] [address] | | | | | [place] [address] | | | | | | [phone] | | | +--------+ + + + [...]
--- OUTSIDE RECORDS SUMMARY | ~2019-10-14 | XMS | Encounter Summary ---
Demographics + + + | Address | [address] | | | [place] [address] | + + + | Home Phone [...] Author | [facility] | | | and Nenoana | + + + | Organization | [facility] | | [...] + | Matthew Ramirez | ECON | [address] | | | | | [place] | | | | | [address] | | + + + + + Care Team Providers + +------+ + | Care Geotechnicial Properties Technician Name | Role | Phone | [...] | | | unspecified | | [place] [address] | | | | | type | | Phone: | | | | | Chronic | | [phone] | | | | | abdominal | | Fax: | | | | | pain | | [phone] | | | | | Benzodiazepi | [...] + + | 12/17/ | Surgery | [facility] | Matthew Shukla MD | EGD | | 2019 | | MED CTR MP INTRA OP | [address] | | | | | [address] | [place] | | | | | [place] | [address] | | | | | [address] | [phone] | | | | | [phone] | | | +--------+---------+ + + + [...] | | | | | episodic use ([facility]) | | | | | [...] 12/17/2018 | PROVATION | | 3:06 PMMRN: [id number] #: [id number] of : | | | 1940dmit Type: [...] | | the anesthesiologist and the hvac engineering technician in the pre-procedure | | [...] PMScope Out: 3:26:19 | | | PM [facility], [address] [facility] | | | [place] [address] | | | - Await pathology results. [...] |Scope Out: 3:26:19 PM | | | [facility], [address] [place], [place] | | | [address] | | + + -+ + +---------+ + + | Performing | Address | City/State/[facility] | Phone Number | | Organization | [...] 12/17/2018 | PROVATION | | 3:04 PMMRN: [id number] #: [id number] of : | | | 1940dmit Type: AmbulatoryAge: 78Room: Endo Room 2Gender: | | | FemaleNote Status: FinalizedAttending MD: Matthew Shukla , | | | MDProcedure: ColonoscopyIndications: Abdominal | | | pain in the left upper quadrant, Hematochezia, | | | Chronic diarrhea, Weight lossProviders: Matthew Rosales | | | MD Gayla, Rina Edouard RN, Conrado Kang [facility], | | | Devon Murdock [...] anesthesiologist and the | | | hvac engineering technician in the pre-procedure area in [...] | | | evaluated using the BBPS (Fults Bowel Preparation Scale) with | | | [...] PMScope Out: | | | 3:55:04 PM [facility], [address] [place] [address], | | | [place] [address] | | | - Await pathology results. [...] |Scope Out: 3:55:04 PM | | | [facility], [address] [facility], [place], [place] | | | [address] | | + + -+ + +---------+ [...] | COMMENT: A -- As part of [facility]' Quality Improvement | | | Program, this portion of the case has been reviewed by another member | | | of our pathology staff with subspecialty training in gastrointestinal | | | pathology. Results called to Dr. Shukla office [facility]) 12/24/18 | | | 10:15 AM. Discussed [...] | and its performance characteristics determined by [facility]. | | | It has not been cleared or approved by the U.S. Food and Drug | | | Administration. The FDA has determined that such clearance or | | | approval is not necessary. This test is used for clinical purposes. | | | It should not be regarded as investigational or for research. | | | [facility] is certified under the Clinical Laboratory | | | Improvement Amendments of 1988 (CLIA) as qualified to perform high | | | complexity clinical laboratory testing. PERFORMING LABORATORY: | | | The technical component was performed by [facility], [address] | | | [place] [address] (Automatic Head Sawyer: Marilyn Dowell MD; | | | CLIA# [id number]). Professional interpretation was performed by | | | [facility], [facility], [address] [place] [address]. | | | [address] [place] [address] (Automatic Head Sawyer: Guevara Ernandez | | | ; CLIA# [id number]). ADDITIONAL NOTES: Immunohistochemical | | | and/or in situ hybridization studies were performed on this case with | | | the appropriate positive controls that react as expected. This test | | | was developed and its performance characteristics determined by | | | [facility]. It has not been cleared or approved by the U.S. | | | Food and Drug Administration. The FDA has determined that such | | | clearance or approval is not necessary. This test is used for | | | clinical purposes. It should not be regarded as investigational or | | | for research. [facility] is certified under the Clinical | | | Laboratory Improvement Amendments of 1988 (CLIA) as qualified to | | | perform high complexity clinical laboratory testing. PERFORMING | | | LABORATORY: The technical component was performed by [facility] | | | [facility], [address] [place] [address] (Automatic Head Sawyer: | | | Marilyn Dowell MD; CLIA# [id number]). Professional interpretation was | | | performed by [facility], [address] [place] | | | [place] [address] (Automatic Head Sawyer: Darien Kapoor D.O.; CLIA#: | | | [id number]). REASON FOR ADDENDUM: To add results of [...] the FDA-approved HER-2 Pathway is performed at [facility] | | | [place], on accession #[id number] from at the [...] the Vysis PathVysion kit was performed at [facility] | | | [place]. The assay has not been validated [...] interpretation was | | | performed by [facility], [address] [facility] | | | [place] [address] (Automatic Head Sawyer: Darien Kapoor D.O.; CLIA#: | | | [id number]). Diagnostician: Guevara Ernandez MD Pathologist | | [...] [place] PATHOLOGY | | | | | [employer] | | | | + +---------+ + [...] | | | Wheezing, Starting [facility] [place] 12/17/18 at | | | 1346, For 1 dose, Pre-op | | + +---+ | | | + +---+ | albuterol-ipratropium 2.5-0.5 | | | mg/3 mL nebulizer solution 3 mL | | | 3 mL, Nebulization, ONCE PRN, | | | Wheezing, Shortness of Breath, | | | Starting [facility] 12/17/18 at 1615, For | | | [...]
--- OUTSIDE RECORDS SUMMARY | ~2019-10-14 | XMS | Encounter Summary ---
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
--- OUTSIDE RECORDS SUMMARY | ~2019-10-14 | XMS | Encounter Summary ---
Demographics + + + | Address | [address] | | | [place] [address] | + + + | Home Phone [...] + | Author | [facility] | | | and Nenoana | + + + | Organization | [facility] | | [...] + | Matthew Ramirez | ECON | [address] | | | | | [place] | | | | | [address] | | + + + + + Care Team Providers + +------+ + | Care Hydraulic Press Operator Name | Role | Phone [...] | HOSPITAL OR INTRA OP | D, YOUTH LEADER [address] | | | | | [address] | [place], [place] | | | | | [place], [place] | [address] | | | | | [address] | | | | | | [phone] | | | +--------+ + + + + Anesthesia Record + + + + + | Procedure Name | Responsible | Anesthesia Start | Anesthesia Stop Time | | | Anesthesiologist | Time | | + + + + + | Correction Josué | Luz Farias, | 03/06/17 1119 | 10/26/17 1228 | | Toes 2nd , 3rd, and | YOUTH LEADER | | | | 4th Toes (Right [...] | | [facility] | | | 7 | [...] | Jacklyn Dominguez | | IV | zkzx-xzu-xsnitm catheter system; | | VIRI Barillas | [...] | | | | | CONTINUOUS, Starting [facility] 03/06/17 | | AM PDT | [...]
--- OUTSIDE RECORDS SUMMARY | ~2019-10-14 | XMS | Encounter Summary ---
Demographics + + + | Address | [address] | | | [place] [address] | + + + | Home Phone [...] + + | Author | [facility] | | | and Nenoana | + + + | Organization | [facility] | | | and [...] + | Matthew Ramirez | ECON | [address] | | | | | [place] | | | | | [address] | | + + + + + Care Team Providers + +------+ + | Care Machinery Mover Name | Role | Phone | + [...] | | ma (HCC) | [address] | [place] | | | | | | [place] | [place], | | | | | | [address] | [place] [address] | | | | | | Phone: | Phone: | | | | | | [phone] | [phone] | | | | | | Fax: | Fax: | | | | | | [phone] | [phone] | +--------+ + + + + + [...] W | | | | | bhargav ([facility]) | [address] | [address] | | | | | | [place], [place] | [place], | | | | | | [address] | [place] [address] | | | | | | Phone: | Phone: | | | | | | [phone] | [phone] | | | | | | Fax: | Fax: | | | | | | [phone] | [phone] | +--------+ + + + + + Encounter Details +--------+ + + + + | Date | Type | Department | Care Team | Description | +--------+ + + + + | 01/05/ | Hospital | [facility] | Arpan, | Gastric | | 2019 | Encounter | MED CTR MEDICAL | uLis Richards MD [address] | adenocarcinoma | | | | ONCOLOGY CLINIC [address] | [address] [place] | (HCC); Malignant | | | | [address] [place] | [place] [address] | neoplasm of | | | | [place] [address] | [phone] | overlapping sites of | | | | [phone] | | stomach (HCC) | +--------+ + [...] (HCC) | starting 01/05/2019 | | ([facility]) | | | | until [...]
--- OUTSIDE RECORDS SUMMARY | ~2019-10-14 | XMS | Encounter Summary ---
Demographics + + + | Address | [address] | | | [place] [address] | + + + | Home Phone [...] + | Author | [facility] | | | and Nenoana | + + + | Organization | [facility] | | [...] + | Matthew Ramirez | ECON | [address] | | | | | [place] | | | | | [address] | | + + + + + Care Team Providers + +------+ + | Care Nanny Caregiver Name | Role | Phone | + [...] | | | | | | | [place] REPAIR | | | | | | [...] Event | HOSPITAL OR INTRA OP | RN DOCUMENTATION SPECIALIST [address] | | | | | [address] | [place] [address] | | | | | [place], [place] | [phone] | | | | | [address] | | | | | | [phone] | | | +--------+ + + + + Anesthesia Record + + + + + | Procedure Name | Responsible | Anesthesia Start | Anesthesia Stop Time | | | Anesthesiologist | Time | | + + + + + | CORRECTION | Mayank Honeycutt, | 07/04/17 0912 | 07/04/17 1022 | | MARSHA 2, 3, 4 | RN DOCUMENTATION SPECIALIST | | | | (Left [...]
--- OUTSIDE RECORDS SUMMARY | ~2019-10-14 | XMS | Encounter Summary ---
Demographics + + + | Address | [address] | | | [place] [address] | + + + | Home Phone [...] + | Author | [facility] | | | and Nenoana | + + + | Organization | [facility] | | [...] + | Matthew Ramirez | ECON | [address] | | | | | [place] | | | | | [address] | | + + + + + Care Team Providers + +------+ + | Care Pill Packer Name | Role | Phone | [...] | | | | | ([facility]) | MD [address] | MD [address] | | | | | | [address] | [place] | | | | | | [place], | [place], [place] | | | | | | [place] [address] | [address] | | | | | | Phone: | Phone: | | | | | | [phone] | [phone] | | | | | | Fax: | Fax: | | | | | | [phone] | [phone] | +--------+ + + + + + Encounter Details +--------+ + + + + | Date | Type | Department | Care Team | Description | +--------+ + + + + | 01/25/ | Orders Only | [facility] | Arpan, | Linitis plastica | | 2019 | | MED CTR MEDICAL | Luis Richards MD [address] | ([facility]) (Primary Dx) | | | | ONCOLOGY CLINIC [address] | [address] [place] | | | | | [address] [place] | [place] [address] | | | | | [place] [address] | [phone] | | | | | [phone] | | | +--------+ + + + [...]
--- OUTSIDE RECORDS SUMMARY | ~2019-10-14 | XMS | Encounter Summary ---
Demographics + + + | Address | [address] | | | [place] [address] | + + + | Home Phone [...] | [facility] | | | and Nenoana | + + + | Organization | [facility] | [...] + | Matthew Ramirez | CHRIS | [address] | | | | | [place] | | | | | [address] | | + + + + + Care Team Providers + +------+ + | Care Brake Engineer Name | Role | Phone | + +------+ + PCP | Unavailable | + +------+ + Encounter Details +--------+ + + + + | Date | Type | Department | Care Team | Description | +--------+ + + + + | 07/24/ | Hospital | [facility] | | | | 1999 | Encounter | MED CTR XRAY [address] | | | | | | [place] | | | | | | [place] [address] | | | | | | [phone] | | | +--------+ + + + [...]
--- OUTSIDE RECORDS SUMMARY | ~2019-10-14 | XMS | Encounter Summary ---
Demographics + + + | Address | [address] | | | [place] [address] | + + + | Home Phone | | + + + | Preferred Language | Unknown | + + + | Marital Status | | + + + | Zoroastrianism Affiliation | Unknown | + + + | Race | Unknown | + + + | Ethnic Group | Unknown | + + + Author + + + | Author | [facility] | | | and Nenoana | + + + | Organization | [facility] | | [...] + | Matthew Ramirez | ECON | [address] | | | | | [place] | | | | | [address] | | + + + + + Care Team Providers + +------+ + | Care Show Horse Driver Name | Role | Phone | [...] | | | | | LA REPAIR | | | | | | [...] HOSPITAL OR INTRA OP | JACKIE Sanon [address] | MARSHA 2, 3, 4 | | | | [address] | [facility] | | | | | [place], [place] | [place] [address] | | | | | [address] | [phone] | | | | | [phone] | | | +--------+---------+ + + + [...]
--- OUTSIDE RECORDS SUMMARY | ~2019-10-14 | XMS | Clinical Summary ---
Demographics + + + | Address | [address] | | | [place] [address] | + + + | Home Phone [...] + | Matthew Ramirez | ECON | [address] | | | | | [place] | | | | | [address] | | + + + + + | Nella Haque | ECON | Unknown | | + + + + + Care Team Providers + +------+ + | Care Retail Warehouse Associate Name | Role | Phone | + +------+ + | Long Copeland MD | PCP | | + +------+ + Source Comments MEÑO is fully live on both [facility] and [facility] InPatient.[facility] Allergies + + + + + [...] | | | | e | | [place] | once daily. | | | | [...] | Refill | Hematology & | Larissa Coóln, | Medication | 2019 | | Oncology [...] | | | | | | | [address] | | + +--------+ +--------+ + +--------+ | [employer] MEDICARE | MODA | xxxxxxxxx | 05/12/19 | [phone] | [address] | [address] | | SUPPLEMENT | MEDICA | | 19-Pre | 4 | [id number] | | | | RE | | sent | | [place], | | | | SUPPLE | | | | [place] [address] | | | | MENT | | [...] Person | Self | [birth year] | [address] | | | al/Fam | | 1941 | [phone] | [place] | | | amrik | | | 9 (Home) | [address] | + +--------+ +--------+ + + Advance [...]
--- OUTSIDE RECORDS SUMMARY | ~2019-10-14 | XMS | Encounter Summary ---
Demographics + + + | Address | [address] | | | [place] [address] | + + + | Home Phone [...] + | Matthew Ramirez | CHRIS | [address] | | | | | [place] | | | | | [address] | | + + + + + | Nella Haque | ECON | Unknown | | + + + + + Care Team Providers + +------+ + | Care Bus Monitor Name | Role | Phone | [...] | Clinics at S | [address] | Coordination | | | | [facility] | [place], [place] | | | | | for Health and | [address] | | | | | Healing [address] | [phone] | | | | | [place], [place] | | | | | | [address] | | | | | | [phone] | | | +--------+ + + + [...]
--- OUTSIDE RECORDS SUMMARY | ~2019-10-14 | XMS | Encounter Summary ---
Demographics + + + | Address | [address] | | | [place] [address] | + + + | Home Phone [...] | Author | [facility] | | | and Nenoana | + + + | Organization | [facility] [...] + | Matthew Ramirez | ECON | [address] | | | | | [place] | | | | | [address] | | + + + + + Care Team Providers + +------+ + | Care Spanish Literature Professor Name | Role | Phone | [...] | | | | | [place] [address] | | | | | | [phone] | | | +--------+ + + + [...]
--- OUTSIDE RECORDS SUMMARY | ~2019-10-14 | XMS | Encounter Summary ---
Demographics + + + | Address | [address] | | | [place] [address] | + + + | Home Phone [...] + | Matthew Ramirez | CHRIS | [address] | | | | | [place] | | | | | [address] | | + + + + + | Nella Haque | ECON | Unknown | | + + + + + Care Team Providers + +------+ + | Care Water Maintenance Supervisor Name | Role | Phone | [...] [address] | (Constipation) | | | | [facility] | [place], [place] | | | | | for Health and | [address] | | | | | Healing [address] | [phone] | | | | | [place], [place] | | | | | | [address] | | | | | | [phone] | | | +--------+ + + + [...]
--- OUTSIDE RECORDS SUMMARY | ~2019-10-14 | XMS | Encounter Summary ---
Demographics + + + | Address | [address] | | | [place] [address] | + + + | Home Phone [...] | Author | [facility] | | | and Nenoana | + + + | Organization | [facility] | | [...] + | Matthew Ramirez | CHRIS | [address] | | | | | [place] | | | | | [address] | | + + + + + Care Team Providers + +------+ + | Care Satellite Installation Technician Name | Role | Phone | + +------+ + PCP | Unavailable | + +------+ + Encounter Details +--------+ + + + + | Date | Type | Department | Care Team | Description | +--------+ + + + + | 02/02/ | Hospital [facility] | | | [facility] | Encounter | MED CTR MP INTRA OP | | | | | | [address] | | | | | | [place] | | | | | | [address] | | | | | | [phone] | | | +--------+ + + + [...]
--- OUTSIDE RECORDS SUMMARY | ~2019-10-14 | XMS | Encounter Summary ---
Demographics + + + | Address | [address] | | | [place] [address] | + + + | Home Phone [...] + | Matthew Ramirez | ECON | [address] | | | | | [place] | | | | | [address] | | + + + + + | Nella Haque | ECON | Unknown | | + + + + + Care Team Providers + +------+ + | Care Garbage Collector Driver Name | Role | Phone | [...]
--- OUTSIDE RECORDS SUMMARY | ~2019-10-14 | XMS | Encounter Summary ---
Demographics + + + | Address | [address] | | | [place] [address] | + + + | Home Phone [...] | Author | [facility] | | | and Nenoana | + + + | Organization | [facility] | | | [...] + | Matthew Ramirez | CHRIS | [address] | | | | | [place] | | | | | [address] | | + + + + + Care Team Providers + +------+ + | Care Cutter First Name | Role | Phone | + +------+ + PCP | Unavailable | + +------+ + Encounter Details +--------+ + + + + | Date | Type | Department | Care Team | Description | +--------+ + + + + | 03/20/ | Hospital | [facility] | | | | 1994 | Encounter | MED CTR XRAY [address] | | | | | | [address] | | | | | | [place] [address] | | | | | | [phone] | | | +--------+ + + + [...]
--- OUTSIDE RECORDS SUMMARY | ~2019-10-14 | XMS | Encounter Summary ---
Demographics + + + | Address | [address] | | | [place] [address] | + + + | Home Phone [...] + | Author | [facility] | | | and Nenoana | + + + | Organization | [facility] | | [...] + | Matthew Ramirez | ECON | [address] | | | | | [place] | | | | | [address] | | + + + + + Care Team Providers + +------+ + | Care Distribution Center Assistant Name | Role | Phone | [...] | Gastric | [address] | [place] | | | | | adenocarcino | [facility], | [place], [place] | | | | | ma (HCC) | [place] | [address] | | | | | Procedures | [address] | Phone: | | | | | PET CT Skull | Phone: | [phone] | | | | | Base To Mid | [phone] | Fax: | | | | | Thigh | Fax: | [phone] | | | | | | [phone] | | +--------+--------+ + + + + [...] | Gastric | [address] | [place] | | | | | adenocarcino | [place], | [place], [place] | | | | | ma (HCC) | [place] | [address] | | | | | Procedures | [address] | Phone: | | | | | PET CT Skull | Phone: | [phone] | | | | | Base To Mid | [phone] | Fax: | | | | | Thigh | Fax: | [phone] | | | | | | [phone] | | +--------+--------+ + + + + Encounter Details +--------+ + + + + | Date | Type | Department | Care Team | Description | +--------+ + + + + | 02/18/ | Hospital | [facility] | Cristel Galicia MD | Tumor; Gastric | | 2019 | Encounter | MED CTR PET SCAN | [address] | adenocarcinoma (HCC) | | | | [address] [place] [place] | [place], [place] | | | | | [place] [address] | [address] | | | | | [phone] | [phone] | | | | | | | [...] the common bile duct. | | | Coid-zy-nxar and in the right aspect of L4. [...] | |dilatation of the common bile duct. Fyfw-sq-frzl and in the right aspect of L4. [...] | | of the common bile duct. Fucx-ed-pmlg and in the right aspect of L4.IMPRESSION: [...] | |dilatation of the common bile duct. Cczp-zt-mhrt and in the right aspect of L4. [...]
--- OUTSIDE RECORDS SUMMARY | ~2019-10-14 | XMS | Encounter Summary ---
Demographics + + + | Address | [address] | | | [place] [address] | + + + | Home Phone [...] | Author | [facility] | | | and Nenoana | + + + | Organization | [facility] [...] + | Matthew Ramirez | CHRIS | [address] | | | | | [place] | | | | | [address] | | + + + + + Care Team Providers + +------+ + | Care Landscape Contractor Name | Role | Phone | + +------+ + PCP | Unavailable | + +------+ + Encounter Details +--------+ + + + + | Date | Type | Department | Care Team | Description | +--------+ + + + + | 12/30/ | Hospital | [facility] | | | | 2001 | Encounter | MED CTR XRAY [address] | | | | | | [address] | | | | | | [place] [address] | | | | | | [phone] | | | +--------+ + + + [...]
--- OUTSIDE RECORDS SUMMARY | ~2019-10-14 | XMS | Encounter Summary ---
Demographics + + + | Address | [address] | | | [place] [address] | + + + | Home Phone [...] | [facility] | | | and Neno[place] | + + + | Organization | [facility] [...] + | Matthew Ramirez | ECON | [address] | | | | | [place] | | | | | [address] | | + + + + + Care Team Providers + +------+ + | Care President Trust Company Name | Role | Phone | + [...] / | Diagnoses | Gayla | [facility] | | | Services | General | 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 | General | | | Required | Surgery | adenocarcino | [address] | Surgery [address] | | | | | bhargav ([facility]) | [address] | [place] | | | | | | [place], [place] | [place], | | | | | | [address] | [place] [address] | | | | | | Phone: | Phone: | | | | | | [phone] | [phone] | | | | | | Fax: | Fax: | | | | | | [phone] | [phone] | +--------+ + + + + + Encounter Details +--------+---------+ + + + | Date | Type | Department | Care Team | Description | +--------+---------+ + + + | 01/07/ | Office | [facility] | Ana Mendez MD | Gastric | | 2019 | Visit | SURGERY [address] | [address] [facility] | adenocarcinoma (HCC) | | | | [place], [place] | [place] [address] | (Primary Dx) | | | | [address] | [phone] | | | | | [phone] | | | +--------+---------+ + + + [...] + documented in this encounter Progress Notes Aan Mendez MD - 01/07/2019 2:30 PM PDT Consult Note Referring Provider: Matthew Shukla MD HISTORY OF PRESENT ILLNESS Ashly Ramirez is a 78 y.o. female patient of Ashly Rjoo PA-C here today for evalua tion of [...] adenoma. COMMENT: A -- As part of [facility]' Quality Improvement Program, this portion of the case h as been reviewed by another member of our pathology staff with subspecialty training in lisa rointestinal pathology. Results called to Dr. Shukla office ([place]) 12/24/18 10:15 AM. Discussed results on specimen [...] Impalnt Revision; Surgeon: Jose Randall DPM; Location: [facility] BLADDER REPAIR 1971 BLADDER SUSPENSION 2007 CARPAL TUNNEL RELEASE Bilateral CATARACT REMOVAL Right 03/2016 CHOLECYSTECTOMY, LAPAROSCOPIC 1997 COLECTOMY 2004 recurrent diverticulitis COLONOSCOPY 01/2018 One diminutive polyp COLONOSCOPY N/A 12/17/2018 Procedure: COLONOSCOPY; Surgeon: Matthew Shukla MD; Location: [facility] FINGER SURGERY Left 2007 Thumb surgery for osteoarthritis FINGER SURGERY Left 11/2008 FINGER SURGERY Right 04/2012 Thumb surgery HAMMER TOE SURGERY Right 03/06/2017 Procedure: Correction Hammer Toes 2nd , 3rd, and 4th Toes; Surgeon: ANNIE Cuevas; Location: [facility] HAMMER TOE SURGERY Left 07/04/2017 Procedure: CORRECTION HAMMERTOES 2, 3, 4; Surgeon: Jose Randall DPM; Location: [facility] [place] [facility] HAMMER TOE SURGERY Left 2018 x3 KNEE ARTHROSCOPY Right 2001 PUBOVAGINAL SLING 10/16/2010 TVT Retropubic sling at [facility] SIGMOID COLECTOMY 12/20/2002 Franck Davis MD - [facility] AND O 1996 TONSILLECTOMY AND ADENOIDECTOMY 1948 TOTAL KNEE ARTHROPLASTY Right 07/11/2011 TUBAL LIGATION 1976 UPPER GASTROINTESTINAL ENDOSCOPY N/A 12/17/2018 Procedure: EGD; Surgeon: Matthew Shukla MD; Location: [facility] URETHROPEXY 07/11/2010 Revision [...] MCG tablet Take 800 mcg by mouth. Wcrmmfcecvz-Rwmjoyhyl-Sgw C-Mn (GLUCOSAMINE CHONDR 500 COMPLEX) CAPS 2 [...] has put in an urgent referral to [facility] erologist for a repeat EGD with additional [...] this chart may have been created with [employer] voice recognition software. Occasi onal wrong-word or [...]
--- OUTSIDE RECORDS SUMMARY | ~2019-10-14 | XMS | Encounter Summary ---
Demographics + + + | Address | [address] | | | [place] [address] | + + + | Home Phone [...] + | Matthew Ramirez | CHRIS | [address] | | | | | [place] | | | | | [address] | | + + + + + | Nella Haque | ECON | Unknown | | + + + + + Care Team Providers + +------+ + | Care Recruiter Account Manager Name | Role | Phone | [...] | | [facility] | [place], [place] | | | | | for Health and | [address] | | | | | Healing [address] | [phone] | | | | | [place], [place] | | | | | | [address] | | | | | | [phone] | | | +--------+ + + + [...]
--- OUTSIDE RECORDS SUMMARY | ~2019-10-14 | XMS | Encounter Summary ---
Demographics + + + | Address | [address] | | | [place] [address] | + + + | Home Phone [...] | + + + + + | Mathtew Ramirez | CHRIS | [address] | | | | | [place] | | | | | [address] | | + + + + + | Nella Mitchellox Beverley ECON | Unknown | | + + + + + Care Team Providers + +------+ + | Care Proctologist Name | Role | Phone | + +------+ + | Long Copeland MD | PCP | | + +------+ + Encounter Details +--------+ + + + + | Date | Type | Department | Care Team | Description | +--------+ + + + + | 01/28/ | Sound Installation Worker | Surgical Oncology | Cristel Galicia MD | Gastric | | 2019 | | at [facility] [address] | [address] | adenocarcinoma (HCC) | | | | Ave Mail Code: | [place], [place] | (Primary Dx) | | | | [facility] | [address] | | | | | and Healing, | [phone] | | | | | [address] | | | | | | [place], [place] | | | | | | [address] | | | | | | [phone] | | | +--------+ + + + [...] Electronically | | Pathologic | to [phone] [id number]; | | DEPARTMENT | signed by Bonifacio [...] | | | | | | [facility] [facility] | | | | | [...] [facility] | | | Received | Institution: [place] | | DEPARTMENT | | | | [facility] | | OF | | | | [place], [place] | | PATHOLOGY | | | | [id number] Accession | | | | | | Number: | | | | | | [id number] | | | | | | Collection [...] | + + + + + | [facility] | [address] | [place] [address] | | | PATHOLOGY | [address] | | | + + + + + documented in this encounter Visit Diagnoses + + | Diagnosis | + + | Gastric adenocarcinoma (HCC) - Primary Malignant neoplasm of stomach, unspecified | | site | + + documented in this encounter"
--- OUTSIDE RECORDS SUMMARY | ~2019-10-14 | XMS | Encounter Summary ---
Demographics + + + | Address | [address] | | | [place] [address] | + + + | Home Phone [...] + | Author | [facility] | | | and Nenoana | + + + | Organization | [facility] [...] + | Matthew Ramirez | ECON | [address] | | | | | [place] | | | | | [address] | | + + + + + Care Team Providers + +------+ + | Care Auto Parker Name | Role | Phone | + [...] | | cancer | Luis Richards, | [place] | | | | | metastasized | MD [address] | [place], [place] | | | | | to multiple | [address] | [address] | | | | | sites, left | [place], | Phone: | | | | | (HCC) | [place] [address] | [phone] | | | | | Procedures | Phone: | Fax: | | | | | PET CT Skull | [phone] | [phone] | | | | | Base To Mid | Fax: | | | | | | Thigh | [phone] | | +--------+--------+ + + + + [...] POTTER | | | | | [address] [place] | [place] [address] | | | | | [place] [address] | [phone] | | | | | [phone] | | | +--------+ + + + [...]
--- OUTSIDE RECORDS SUMMARY | ~2019-10-14 | XMS | Encounter Summary ---
Demographics + + + | Address | [address] | | | [place] [address] | + + + | Home Phone [...] + | Matthew Ramirez | CHRIS | [address] | | | | | [place] | | | | | [address] | | + + + + + | Nella Haque | ECON | Unknown | | + + + + + Care Team Providers + +------+ + | Care Station Engineer Name | Role | Phone | [...] + + | 07/28/ | Office | [facility] | Rodriguez Bower MD | Metastatic breast | | 2020 | Visit | Clinics at S | [address] | cancer (HCC) | | | | [facility] | [place], [place] | (Primary Dx) | | | | for Health and | [address] | | | | | Healing [address] | [phone] | | | | | [place], [place] | | | | | | [address] | | | | | | [phone] | | | +--------+---------+ + + + [...] adenocarcinoma -saw Dr. Antony of oncology at [place], discussed getting EUS for further evaluati on [...] with her daily activities. She lives in [place] with her , whom she cares for [...] Diagnosis 1. Multiple specimens A to F (-[id number]; 01/13/19): A. Stomach, antrum at great curvature, [...] Pathology Resident Bonifacio Resendez MD Pathologist Pathology, [facility] My electronic signature indicates that [...] issues noted above. Rodriguez Bower MD, MS ID#[id number] Social Organization Professorwaitstaff captain Division of Hematology and Medical Oncology [facility] [place] Pager#[phone] documented in this enco unter Plan of Treatment Not on filedocumented as of this encounter Visit Diagnoses + + | Diagnosis | + + | Metastatic breast cancer (HCC) - Primary | + + documented in this encounter"
--- OUTSIDE RECORDS SUMMARY | ~2019-10-14 | XMS | Encounter Summary ---
Demographics + + + | Address | [address] | | | [place] [address] | + + + | Home Phone [...] + | Matthew Ramirez | CHRIS | [address] | | | | | [place] | | | | | [address] | | + + + + + | Nella Haque | ECON | Unknown | | + + + + + Care Team Providers + +------+ + | Care Network Operations Analyst Name | Role | Phone | + +------+ + | Long Copeland MD | PCP | | + +------+ + Reason for Referral Consultation (Routine) + +---------+ + + + [...] | | | | | Procedures | [place], [place] | [address] | | | | | CONSULT TO | [address] | Ave | | | | | ADULT OUTPT | Phone: | [place], [place] | | | | | SUPPORTIVE | [phone] | [address] | | | | | ONCOLOGY/PAL | Fax: | Phone: | | | | | LIATIVE | [phone] | [phone] | | | | | MEDICINE | | Fax: | | | | | | | [phone] | + +---------+ + + + + Consultation (Routine) + [...] | [address] | [address] | | | | | cancer (HCC) | Ave | Ave | | | | | Procedures | [facility] [place] | Mailcode: | | | | | CONSULT TO | [address] | [facility] | | | | | | Phone: | Health and | | | | | GASTROENTERO | [phone] | Healing, | | | | | LOGY | Fax: | Building [address] | | | | | | [phone] | [facility] [place] | | | | | | | [address] | | | | | | | Phone: | | | | | | | [phone] | | | | | | | Fax: | | | | | | | [phone] | + +--------+ + + + + [...] [address] | | | | | [facility] | [place], [place] | | | | | for Health and | [address] | | | | | Healing [address] | [phone] | | | | | Ave [place], [place] | | | | | | [address] | | | | | | [phone] | | | +--------+ + + + [...]
--- OUTSIDE RECORDS SUMMARY | ~2019-10-14 | XMS | Encounter Summary ---
Demographics + + + | Address | [address] | | | [place] [address] | + + + | Home Phone [...] + | Author | [facility] | | | and Nenoana | + + + | Organization | [facility] [...] + | Matthew Ramirez | ECON | [address] | | | | | [place] | | | | | [address] | | + + + + + Care Team Providers + +------+ + | Care Spool Tender Name | Role | Phone | [...] [place] | | | | | [address] | [place] [address] | | | | | [place] [address] | [phone] | | | | | [phone] | | | +--------+ + + + [...]
--- OUTSIDE RECORDS SUMMARY | ~2019-10-14 | XMS | Encounter Summary ---
Demographics + + + | Address | [address] | | | [place] [address] | + + + | Home Phone [...] | Author | [facility] | | | and Nenoana | + + + | Organization | [facility] [...] + | Matthew Ramirez | ECON | [address] | | | | | [place] | | | | | [address] | | + + + + + Care Team Providers + +------+ + | Care Supervising Broker Name | Role | Phone | [...] | | | | | [place] [facility] | | | | | [...] | | | [place], [place] | [place] [address] | | | | | [address] | [phone] | | | | | [phone] | | | +--------+---------+ + + + [...]
--- OUTSIDE RECORDS SUMMARY | ~2019-10-14 | XMS | Encounter Summary ---
Demographics + + + | Address | [address] | | | [place] [address] | + + + | Home Phone [...] | Author | [facility] | | | and Nenoana | + + + | Organization | [facility] | | [...] + | Matthew Ramirez | ECON | [address] | | | | | [place] | | | | | [address] | | + + + + + Care Team Providers + +------+ + | Care Program Rep Name | Role | Phone | [...] | | | unspecified | | [place] [address] | | | | | type | | Phone: | | | | | Chronic | | [phone] | | | | | abdominal | | Fax: | | | | | pain | | [phone] | | | | | Benzodiazepi | [...] | | | | | [address] | [address] [facility] | | | | | [place] | [place] [address] | | | | | [address] | [phone] | | | | | [phone] | | | +--------+ + + + [...] 12/17/18 1622 by | | nicolas | enly-[id number]-[id number] catheter system; | Gris Davis RN | [...]
--- OUTSIDE RECORDS SUMMARY | ~2019-10-14 | XMS | Encounter Summary ---
Demographics + + + | Address | [address] | | | [place] [address] | + + + | Home Phone [...] + | Matthew Ramirez | CHRIS | [address] | | | | | [place] | | | | | [address] | | + + + + + | Nella Haque | ECON | Unknown | | + + + + + Care Team Providers + +------+ + | Care Estimator Project Manager Name | Role | Phone | [...] Amador | (Letrozole) | | | | [facility] | [facility] | | | | | [facility] and | [place], [place] | | | | | Healing [address] | [address] | | | | | [place], [place] | | | | | | [address] | | | | | | [phone] | | | +--------+--------+ + + + [...]
--- OUTSIDE RECORDS SUMMARY | ~2019-10-14 | XMS | Encounter Summary ---
Demographics + + + | Address | [address] | | | [place] [address] | + + + | Home Phone [...] | Author | [facility] | | | and Nenoana | + + + | Organization | [facility] | [...] + | Matthew Ramirez | CHRIS | [address] | | | | | [place] | | | | | [address] | | + + + + + Care Team Providers + +------+ + | Care Buttermilk Drier Operator Name | Role | Phone | + +------+ + PCP | Unavailable | + +------+ + Encounter Details +--------+ + + + + | Date | Type | Department | Care Team | Description | +--------+ + + + + | 03/12/ | Hospital | [facility] | | | | 2005 - | Encounter | MED CTR OP REHAB | | | | | | [address] | | | | 04/17/ | | [place] [address] | | | | 2005 | | [phone] | | | +--------+ + + + [...]
--- OUTSIDE RECORDS SUMMARY | ~2019-10-14 | XMS | Encounter Summary ---
Demographics + + + | Address | [address] | | | [place] [address] | + + + | Home Phone [...] | Author | [facility] | | | and Nenoana | + + + | Organization | [facility] | [...] + | Matthew Ramirez | ECON | [address] | | | | | [place] | | | | | [address] | | + + + + + Care Team Providers + +------+ + | Care Collarette Separator Name | Role | Phone | + [...] + + | 03/18/ | Telephone | [facility] | Arpan | Coordination Of Care | | 2019 | | MED [facility] | Luis Richards MD [address] | | | | | ONCOLOGY CLINIC [address] | [facility] | | | | | [address] [facility] | [place] [address] | | | | | [place] [address] | [phone] | | | | | [phone] | | | +--------+ + + + [...]
--- OUTSIDE RECORDS SUMMARY | ~2019-10-14 | XMS | Encounter Summary ---
Demographics + + + | Address | [address] | | | [place] [address] | + + + | Home Phone [...] + | Matthew Ramirez | CHRIS | [address] | | | | | [place] | | | | | [address] | | + + + + + | Nella Lowery ECON | Unknown | | + + + + + Care Team Providers + +------+ + | Care Power Equipment Technology Instructor Name | Role | Phone | [...] Amador | | | | | at [facility] | [facility] | | | | | [address] | [place] [address] | | | | | Loop [facility] | | | | | | [place], 2nd floor | | | | | | [place], [place] | | | | | | [address] | | | | | | [phone] | | | +--------+ + + + [...] nostril | | | | | | [place] | once daily. | | | | [...] view image for the detailed interpretation from [employer] results. | CARDIOLOGY | + + + + + + + + | Performing | Address | City/State/Zipcode | Phone Number | | Organization | | | | + + + + + | [facility] | [address] | [place], [place] | | | CARDIOLOGY | [address] | [address] | | + + + + + documented in this encounter Visit Diagnoses Not on filedocumented in this encounter
--- OUTSIDE RECORDS SUMMARY | ~2019-10-14 | XMS | Encounter Summary ---
Demographics + + + | Address | [address] | | | [place] [address] | + + + | Home Phone [...] + | Matthew Ramirez | CHRIS | [address] | | | | | [place] | | | | | [address] | | + + + + + | Nella Haque | ECON | Unknown | | + + + + + Care Team Providers + +------+ + | Care Pattern Hanger Name | Role | Phone | [...] | | 2010 | | [facility] | MD Gillian [address] | | | | | [address] | [facility] | | | | | [address] | [place], [place] | | | | | [place], [facility] floor | [address] | | | | | [place], [place] | [phone] | | | | | [address] | | | | | | [phone] | | | +--------+ + + + [...]
--- OUTSIDE RECORDS SUMMARY | ~2019-10-14 | XMS | Encounter Summary ---
Demographics + + + | Address | [address] | | | [place] [address] | + + + | Home Phone [...] + | Matthew Ramirez | CHRIS | [address] | | | | | [place] | | | | | [address] | | + + + + + | Nella Haque | ECON | Unknown | | + + + + + Care Team Providers + +------+ + | Care Insurance Professional Name | Role | Phone | + [...] | | | Ave Mail Code: | [place], [place] | | | | | [facility] | [address] | | | | | and [place], | [phone] | | | | | [address] | | | | | | [place], [place] | | | | | | [address] | | | | | | [phone] | | | +--------+ + + + [...]
--- OUTSIDE RECORDS SUMMARY | ~2019-10-14 | XMS | Encounter Summary ---
Demographics + + + | Address | [address] | | | [place] [address] | + + + | Home Phone [...] | Author | [facility] | | | and [place]enoana | + + + | Organization | [facility] | | [...] + | Matthew Ramirez | ECON | [address] | | | | | [place] | | | | | [address] | | + + + + + Care Team Providers + +------+ + | Care Corporation Lawyer Name | Role | Phone | + [...] [address] [place] | [address] [place], | | | | | [facility], [place] | [place] [address] | | | | | [address] | [phone] | | | | | [phone] | | | +--------+ + + + [...] Care Everywhere.Foot Surgery: Maurice pace Fifth Toe (Pakistani)Foot Surgery: Flexible and Rigid Hammertoes (Pakistani)Mallet, Hammer , and Claw Toes, Treating (Pakistani)Mallet, Hammer, and Claw Toes, What Are (Pakistani)document ed in this encounter Medications at Time [...]
--- OUTSIDE RECORDS SUMMARY | ~2019-10-14 | XMS | Encounter Summary ---
Demographics + + + | Address | [address] | | | [place] [address] | + + + | Home Phone [...] | Author | [facility] | | | and Nenoana | + + + | Organization | [facility] | | | [...] + | Matthew Ramirez | CHRIS | [address] | | | | | [place] | | | | | [address] | | + + + + + Care Team Providers + +------+ + | Care Service Observer Chief Name | Role | Phone | + [...] [place] | | | | | | [address] | | | | | | [phone] | | | +--------+ + + + [...]
--- OUTSIDE RECORDS SUMMARY | ~2019-10-14 | XMS | Encounter Summary ---
Demographics + + + | Address | [address] | | | [place] [address] | + + + | Home Phone [...] [facility] | | | and Nenoana | + + + | Organization | [facility] | | [...] + | Matthew Ramirez | CHRIS | [address] | | | | | [place] | | | | | [address] | | + + + + + Care Team Providers + +------+ + | Care Film Flat Inspector Name | Role | Phone | + +------+ + PCP | Unavailable | + +------+ + Encounter Details +--------+ + + + + | Date | Type | Department | Care Team | Description | +--------+ + + + + | 01/26/ | Hospital | [facility] | | | | 2008 | Encounter | MED CTR XRAY [address] | | | | | | [address] | | | | | | [place] [address] | | | | | | [phone] | | | +--------+ + + + [...]
--- OUTSIDE RECORDS SUMMARY | ~2019-10-14 | XMS | Encounter Summary ---
Demographics + + + | Address | [address] | | | [place] [address] | + + + | Home Phone [...] | Author | [facility] | | | and Nenoana | + + + | Organization | [facility] | [...] + | Matthew Ramirez | ECON | [address] | | | | | [place] | | | | | [address] | | + + + + + Care Team Providers + +------+ + | Care Chassis Driver Name | Role | Phone | [...] | | | | | | [place] [address] | | | | | | [phone] | | | +--------+ + + + [...]
--- OUTSIDE RECORDS SUMMARY | ~2019-10-14 | XMS | Encounter Summary ---
Demographics + + + | Address | [address] | | | [place] [address] | + + + | Home Phone [...] + | Matthew Ramirez | CHRIS | [address] | | | | | [place] | | | | | [address] | | + + + + + [...] | Comments | + + + | Hospital Admission | | + + + Encounter Details +--------+ + + + + | Date | Type | Department | Care Team | Description | +--------+ + + + + | 10/13/ | Telephone | [facility] | Gail Mckeon MD | Hospital Admission | | 2020 | | Clinics at | [address] [facility] | | | | | [facility] | Elena Rosa [facility] | | | | | [facility] and | [place] [address] | | | | | Healing [address] | [phone] | | | | | [place], [place] | | | | | | [address] | | | | | | [phone] | | | +--------+ + + + [...]
--- OUTSIDE RECORDS SUMMARY | ~2019-10-14 | XMS | Encounter Summary ---
Demographics + + + | Address | [address] | | | [place] [address] | + + + | Home Phone [...] Author | [facility] | | | and Nenoana | + + + | Organization | [facility] [...] + | Matthew Ramirez | ECON | [address] | | | | | [place] | | | | | [address] | | + + + + + Care Team Providers + +------+ + | Care Cold Type Composing Machine Operator Name | Role | Phone [...] | [address] | [place] [address] | | | | | [address] | | | | | | [phone] | | | +--------+ + + + [...]
--- OUTSIDE RECORDS SUMMARY | ~2019-10-14 | XMS | Encounter Summary ---
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 [...]
--- OUTSIDE RECORDS SUMMARY | ~2019-10-14 | XMS | Encounter Summary ---
Demographics + + + | Address | [address] | | | [place] [address] | + + + | Home Phone [...] Author | [facility] | | | and Nenoana | + + + | Organization | [facility] | | [...] + | Matthew Ramirez | ECON | [address] | | | | | [place] | | | | | [address] | | + + + + + Care Team Providers + +------+ + | Care Top Trimmer Name | Role | Phone | [...] | | | [place], [place] | [place] [address] | | | | | [address] | [phone] | | | | | [phone] | | | +--------+---------+ + + + [...] Care Everywhere.Foot Surgery: Maurice pace Fifth Toe (Eritrean)Foot Surgery: Flexible and Rigid Hammertoes (Eritrean)Mallet, Hammer , and Claw Toes, Treating (Eritrean)Mallet, Hammer, and Claw Toes, What Are (Eritrean)document ed in this encounter Medications at Time [...]
--- OUTSIDE RECORDS SUMMARY | ~2019-10-14 | XMS | Encounter Summary ---
Demographics + + + | Address | [address] | | | [place] [address] | + + + | Home Phone [...] Author | [facility] | | | and Nenoana | + + + | Organization | [facility] | | [...] + | Matthew Ramirez | ECON | [address] | | | | | [place] | | | | | [address] | | + + + + + [...] | HOSPITAL OR INTRA OP | D, MAINTENANCE PAINTER [address] | | | | | [address] | [place], [place] | | | | | [place], [place] | [address] | | | | | [address] | | | | | | [phone] | | | +--------+ + + + + Anesthesia Record + + + + + | Procedure Name | Responsible | Anesthesia Start | Anesthesia Stop Time | | | Anesthesiologist | Time | | + + + + + | Correction Josué | Luz Farias, | 03/06/17 1119 | 10/26/17 1228 | | Toes 2nd , 3rd, and | MAINTENANCE PAINTER | | | | 4th Toes (Right [...] | | [facility] | | | 7 [...] | Jacklyn Dominguez | | IV | [id number] catheter system; | | VIRI Barillas | [...] | | | | | CONTINUOUS, Starting [facility] 03/06/17 | | AM PDT | | [...]
--- OUTSIDE RECORDS SUMMARY | ~2019-10-14 | XMS | Encounter Summary ---
Demographics + + + | Address | [address] | | | [place] [address] | + + + | Home Phone [...] | [facility] | | | and Nenoana | + + + | Organization | [facility] [...] + | Matthew Ramirez | ECON | [address] | | | | | [place] | | | | | [address] | | + + + + + Care Team Providers + +------+ + | Care Oven Roaster Name | Role | Phone | + [...] Event | HOSPITAL OR INTRA OP | SUBMARINE WORKER [address] | | | | | [address] | [place] [address] | | | | | [place], [place] | [phone] | | | | | [address] | | | | | | [phone] | | | +--------+ + + + + Anesthesia Record + + + + + | Procedure Name | Responsible | Anesthesia Start | Anesthesia Stop Time | | | Anesthesiologist | Time | | + + + + + | ARTHROPLASTY 3rd and | Mayank Honeycutt, | 02/13/18 1306 | 02/13/18 1440 | | 4th Digits with | SUBMARINE WORKER | | | | Impalnt Revision | [...] Pt A&O x3, comfortable, conversing, return to [facility] in bed. | | | [...] 1530 by | | eral | Antecubital; [id number] | Steve Parry RN | Cassie [place] [...]
--- OUTSIDE RECORDS SUMMARY | ~2019-10-14 | XMS | Encounter Summary ---
Demographics + + + | Address | [address] | | | [place] [address] | + + + | Home Phone [...] + | Author | [facility] | | | and Nenoana | + + + | Organization | [facility] | [...] + | Matthew Ramirez | ECON | [address] | | | | | [place] | | | | | [address] | | + + + + + Care Team Providers + +------+ + | Care Pointer Helper Name | Role | Phone | [...] + + | 12/18/ | Telephone | [facility] | Matthew Shukla MD | Sore Throat | | 2019 | | GASTROENTEROLOGY | [address] [facility] | | | | | [address] [facility] | [place], [place] | | | | | [address] [place], [place] | [address] | | | | | [address] | [phone] | | | | | [phone] | | | +--------+ + + + [...]
--- OUTSIDE RECORDS SUMMARY | ~2019-10-14 | XMS | Encounter Summary ---
Demographics + + + | Address | [address] | | | [place] [address] | + + + | Home Phone [...] | Author | [facility] | | | and Nenoana | + + + | Organization | [facility] | [...] + | Matthew Ramirez | CHRIS | [address] | | | | | [place] | | | | | [address] | | + + + + + Care Team Providers + +------+ + | Care Geoint Analyst Name | Role | Phone | + +------+ + PCP | Unavailable | + +------+ + Encounter Details +--------+ + + + + | Date | Type | Department | Care Team | Description | +--------+ + + + + | 09/06/ | Hospital | [facility] | | | | 2004 | Encounter | MED CTR XRAY [address] | | | | | | [address] | | | | | | [place] [address] | | | | | | [phone] | | | +--------+ + + + [...]
--- OUTSIDE RECORDS SUMMARY | ~2019-10-14 | XMS | Encounter Summary ---
Demographics + + + | Address | [address] | | | [place] [address] | + + + | Home Phone [...] + | Matthew Ramirez | CHRIS | [address] | | | | | [place] | | | | | [address] | | + + + + + | Nella Haque | ECON | Unknown | | + + + + + Care Team Providers + +------+ + | Care Senior Applications Architect Name | Role | Phone | [...] | | | | | Procedures | [facility], [place] | [address] | | | | | CONSULT TO | [address] | Ave | | | | | ADULT OUTPT | Phone: | [place], [place] | | | | | SUPPORTIVE | [phone] | [address] | | | | | ONCOLOGY/PAL | Fax: | Phone: | | | | | LIATIVE | [phone] | [phone] | | | | | MEDICINE | | Fax: | | | | | | | [phone] | + +--------+ + + + + [...] | | | | | Procedures | [place], [place] | Mailcode: | | | | | CONSULT TO | [address] | [facility] | | | | | | Phone: | Health and | | | | | GASTROENTERO | [phone] | Healing, | | | | | LOG[place] | Fax: | [address] | | | | | | [phone] | [place], [place] | | | | | | | [address] | | | | | | | Phone: | | | | | | | [phone] | | | | | | | Fax: | | | | | | | [phone] | + +--------+ + + + + [...] [address] | | | | | [facility] | [place], [place] | | | | | for Health and | [address] | | | | | Healing [address] | [phone] | | | | | [place], [place] | | | | | | [address] | | | | | | [phone] | | | +--------+ + + + [...]
--- OUTSIDE RECORDS SUMMARY | ~2019-10-14 | XMS | Encounter Summary ---
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 | [facility], | [place], [place] | | | | | ma (HCC) | [place] | [address] | | | | | Procedures | [address] | Phone: | | | | | PET CT Skull | Phone: | [phone] | | | | | Base To Mid | [phone] | Fax: | | | | | Thigh | Fax: | [phone] | | | | | | [phone] | | +--------+--------+ + + + + [...] | Gastric | [address] | [place] | | | | | adenocarcino | [place], | [place], [place] | | | | | ma (HCC) | [place] | [address] | | | | | Procedures | [address] | Phone: | | | | | PET CT Skull | Phone: | [phone] | | | | | Base To Mid | [phone] | Fax: | | | | | Thigh | Fax: | [phone] | | | | | | [phone] | | +--------+--------+ + + + + Encounter Details +--------+ + + + + | Date | Type | Department | Care Team | Description | +--------+ + + + + | 02/18/ | Hospital | [facility] | Cristel Galicia MD | Tumor; 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 | | | Dgqs-ku-lmyg and in the right aspect of L4. [...] | |dilatation of the common bile duct. Owoh-to-vmtf and in the right aspect of L4. [...] | | of the common bile duct. Btui-jl-kluk and in the right aspect of L4.IMPRESSION: [...] | |dilatation of the common bile duct. Iaou-bf-wqwl and in the right aspect of L4. [...]
--- OUTSIDE RECORDS SUMMARY | ~2019-10-14 | XMS | Encounter Summary ---
Demographics + + + | Address | [address] | | | [place] [address] | + + + | Home Phone [...] | Author | [facility] | | | and Nenoana | + + + | Organization | [facility] [...] + | Matthew Ramirez | ECON | [address] | | | | | [place] | | | | | [address] | | + + + + + Care Team Providers + +------+ + | Care Gluer Machine Operator Name | Role | Phone [...] HOSPITAL [place] INTRA OP | JACKIE Sanon [address] | MARSHA 2, 3, 4 | | | | [address] | [facility], | | | | | [place], [place] | [place] [address] | | | | | [address] | [phone] | | | | | [phone] | | | +--------+---------+ + + + [...]
--- OUTSIDE RECORDS SUMMARY | ~2019-10-14 | XMS | Encounter Summary ---
Demographics + + + | Address | [address] | | | [place] [address] | + + + | Home Phone [...] + | Matthew Ramirez | CHRIS | [address] | | | | | [place] | | | | | [address] | | + + + + + | Nella Garland | ECON | Unknown | | + + + + + Care Team Providers + +------+ + | Care Bevel Mill Operator Name | Role | Phone [...] | | sphincter | MD Gillian | [address] | | | | | deficiency | [address] | [place] | | | | | (ISD) | Neal Elena | [address] | | | | | Urinary | Rd | floor | | | | | stress | [facility] [place] | [place], [place] | | | | | incontinence | [address] | [address] | | | | | Procedures | Phone: | Phone: | | | | | REQUEST TO | [phone] | [phone] | | | | | SURGERY | Fax: | Fax: | | | | | ACID TENDER | [phone] | [phone] | | | | | SC | | | | | | | CYSTOURETHRO | | | | | | | [place] | | | | | | [...] | | | | | | [address] [facility] | | | | | | | floor | | | | | | | [place], [place] | | | | | | | [address] | | | | | | | Phone: | | | | | | | [phone] | | | | | | | Fax: | | | | | | | [phone] | +--------+--------+ + + + + Encounter Details +--------+---------+ + + + | Date | Type | Department | Care Team | Description | +--------+---------+ + + + | 10/03/ | [facility] Avis Rios | 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 Sprague and agree with [facility] findings and plan as documented [...] be found in the scanned documents in [facility]. They have also been ent ered into the [facility] database. PHYSICAL EXAM BP 160/90 | Pulse [...] October 26 with preop October 25. TVT [id number] Patient seen and discussed with Dr. Rios. Christiana Cullen RN - 10/03/2010 11:26 AM PDTUrine dipstick ordered and pt voided 295 mL of urine. Pt prepped with betadine. 14 georgian straight cath through pts external urethra for [...] | + +--------+ + + + | SC CYSTOMETROGRAM | Routin | 11/01/2010 | Intrinsic | | | W/LEAD MAN OVER ALL DIES IN PATTERN SHOP&UP | e | 10:19 PM | sphincter deficiency | | | | | PDT | (ISD) Urinary | | | | | | stress incontinence | | + +--------+ + + + | SC INTRAABDOMINAL | Routin | 11/01/2010 | Intrinsic | | | VOIDING PRESSURE | e | 10:19 PM | sphincter deficiency | | | STUDY,AP,GLOBAL | | PDT | (ISD) Urinary | | | | | | stress incontinence | | + +--------+ + + + | SC | Routin | 11/01/2010 | Intrinsic | | | UROFLOWMETRY,COMPLEX | e | 10:19 PM | sphincter deficiency | | | ,GLOBAL | | PDT | (ISD) Urinary | | | | | | stress incontinence | | + +--------+ + + + | SC CYSTOMETROGRAM, | Routin | 11/01/2010 | Intrinsic | | | COMPLEX, GLOBAL | e | 10:19 PM | sphincter deficiency | | | | | PDT | (ISD) Urinary | | | | | | stress incontinence | | + +--------+ + + + | SC INTRAABDOMINAL | Routin | 11/01/2010 | Intrinsic [...] | + +--------+ + + + | SC NURSE 2 | Routin | 10/03/2010 | [...] MARQUAM | [address] | [place], [place] | | | [facility] PO[facility] OF CARE | [address] | [address] | | | TESTS | | | [...]
--- OUTSIDE RECORDS SUMMARY | ~2019-10-14 | XMS | Encounter Summary ---
Demographics + + + | Address | [address] | | | [place] [address] | + + + | Home Phone [...] Author | [facility] | | | and Nenoana | + + + | Organization | [facility] | [...] + | Matthew Ramirez | CHRIS | [address] | | | | | [place] | | | | | [address] | | + + + + + Care Team Providers + +------+ + | Care Forensic Accountant Name | Role | Phone | + +------+ + PCP | Unavailable | + +------+ + Encounter Details +--------+ + + + + | Date | Type | Department | Care Team | Description | +--------+ + + + + | 11/24/ | Hospital | [facility] | [place], | | | 2009 | Encounter | MED CTR GENERIC OP | Katerin Xavier MD | | | | | CONV DEPT [address] | | | | | | [place], | | | | | | [place] [address] | | | | | | [phone] | | | +--------+ + + + [...]
--- OUTSIDE RECORDS SUMMARY | ~2019-10-14 | XMS | Encounter Summary ---
Demographics + + + | Address | [address] | | | [place] [address] | + + + | Home Phone [...] + | Author | [facility] | | | and Nenoana | + + + | Organization | [facility] | | | and Nenoana [...] + | Matthew Ramirez | CHRIS | [address] | | | | | [place] | | | | | [address] | | + + + + + Care Team Providers + +------+ + | Care Manager Call Center Name | Role | Phone | + +------+ + PCP | Unavailable | + +------+ + Encounter Details +--------+ + + + + | Date | Type | Department | Care Team | Description | +--------+ + + + + | 07/15/ | Hospital | [facility] | | | | 2001 | Encounter | MED CTR GENERIC OP | | | | | | CONV DEPT [address] | | | | | | [place], | | | | | | [place] [address] | | | | | | [phone] | | | +--------+ + + + [...]
--- OUTSIDE RECORDS SUMMARY | ~2019-10-14 | XMS | Encounter Summary ---
Demographics + + + | Address | [address] | | | [place] [address] | + + + | Home Phone [...] [facility] | | | and Nenoana | + + + | Organization | [facility] | | [...] + | Matthew Ramirez | ECON | [address] | | | | | [place] | | | | | [address] | | + + + + + Care Team Providers + +------+ + | Care Tracer Powder Blender Name | Role | Phone | + [...] + + | 01/24/ | Telephone | [facility] | Matthew Shukla MD | Results, Pathology | | 2019 | | GASTROENTEROLOGY | [address] [facility] | | | | | [address] [facility] | [place], [place] | | | | | [address] [place], [place] | [address] | | | | | [address] | [phone] | | | | | [phone] | | | +--------+ + + + [...]
--- OUTSIDE RECORDS SUMMARY | ~2019-10-14 | XMS | Encounter Summary ---
Demographics + + + | Address | [address] | | | [place] [address] | + + + | Home Phone [...] Author | [facility] | | | and Nenoana | + + + | Organization | [facility] [...] + | Matthew Ramirez | CHRIS | [address] | | | | | [place] | | | | | [address] | | + + + + + Care Team Providers + +------+ + | Care Manager Aviation Name | Role | Phone | + +------+ + PCP | Unavailable | + +------+ + Encounter Details +--------+ + + + + | Date | Type | Department | Care Team | Description | +--------+ + + + + | 12/30/ | Hospital | [facility] | | | | 2001 | Encounter | MED CTR XRAY [address] | | | | | | [place] | | | | | | [place] [address] | | | | | | [phone] | | | +--------+ + + + [...]
--- OUTSIDE RECORDS SUMMARY | ~2019-10-14 | XMS | Encounter Summary ---
Demographics + + + | Address | [address] | | | [place] [address] | + + + | Home Phone [...] + | Matthew Ramirez | CHRIS | [address] | | | | | [place] | | | | | [address] | | + + + + + | Nella Haque | ECON | Unknown | | + + + + + Care Team Providers + +------+ + | Care Bias Cutting Machine Operator Vertical Name | Role | Phone | + [...] | | | | ma ([facility]) | [place], | | | | | | Procedures | [place] | | | | | | [place] | [address] | | | | | | CONTRAST | Phone: | | | | | | | [phone] | | | | | | | Fax: | | | | | | | [phone] | | + +--------+ + + + [...] | | | | ma (HCC) | [place], | | | | | | Procedures | [place] | | | | | | [place] | [address] | | | | | | CONTRAST | Phone: | | | | | | | [phone] | | | | | | | Fax: | | | | | | | [phone] | | + +--------+ + + + [...] | | | [address] Mailcode: | [place], [place] | | | | | [address] | [address] | | | | | [facility], | [phone] | | | | | [address] | | | | | | Floor [place], [place] | | | | | | [address] | | | | | | [phone] | | | +--------+ + + + [...] nostril | | | | | | [place] | once daily. | | | | [...]
--- OUTSIDE RECORDS SUMMARY | ~2019-10-14 | XMS | Encounter Summary ---
Demographics + + + | Address | [address] | | | [place] [address] | + + + | Home Phone [...] + | Matthew Ramirez | CHRIS | [address] | | | | | [place] | | | | | [address] | | + + + + + | Nella Haque | ECON | Unknown | | + + + + + Care Team Providers + +------+ + | Care Flooring Sales Manager Name | Role | Phone | [...] + + | 07/28/ | Office | [facility] | Rodriguez Bower MD | Metastatic breast | | 2020 | Visit | Clinics at S | [address] | cancer (HCC) | | | | [facility] | [place], [place] | (Primary Dx) | | | | for Health and | [address] | | | | | Healing [address] | [phone] | | | | | [place], [place] | | | | | | [address] | | | | | | [phone] | | | +--------+---------+ + + + [...] adenocarcinoma -saw Dr. Antony of oncology at [place], discussed getting EUS for further evaluati on [...] with her daily activities. She lives in [place] with her , whom she cares for [...] Diagnosis 1. Multiple specimens A to F [id number]; 01/13/19): A. Stomach, antrum at great curvature, [...] Pathology Resident Bonifacio Resendez MD Pathologist Pathology, [facility] My electronic signature indicates that [...] issues noted above. Rodriguez Bower MD, MS ID#[id number] Filter Screen Cleanerfactory clerk Division of Hematology and Medical Oncology [facility] [place] Pager#[phone] documented in this enco unter Plan of Treatment Not on filedocumented as of this encounter Visit Diagnoses + + | Diagnosis | + + | Metastatic breast cancer (HCC) - Primary | + + documented in this encounter"
--- OUTSIDE RECORDS SUMMARY | ~2019-10-14 | XMS | Encounter Summary ---
Demographics + + + | Address | [address] | | | [place] [address] | + + + | Home Phone [...] + | Matthew Ramirez | CHRIS | [address] | | | | | [place] | | | | | [address] | | + + + + + | Nella Lowery ECON | Unknown | | + + + + + Care Team Providers + +------+ + | Care Family Services Manager Name | Role | Phone | [...] | 2019 | marv | [address] [facility] | [address] | | | | | [address] [place], [place] | [place], [place] | | | | | [address] | [address] | | | | | | [phone] | | | | | | | [...]
--- OUTSIDE RECORDS SUMMARY | ~2019-10-14 | XMS | Encounter Summary ---
Demographics + + + | Address | [address] | | | [place] [address] | + + + | Home Phone [...] Author | [facility] | | | and Nenoana | + + + | Organization | [facility] | [...] + | Matthew Ramirez | CHRIS | [address] | | | | | [place] | | | | | [address] | | + + + + + Care Team Providers + +------+ + | Care Lapel Padder Name | Role | Phone | + +------+ + PCP | Unavailable | + +------+ + Encounter Details +--------+ + + + + | Date | Type | Department | Care Team | Description | +--------+ + + + + | 06/15/ | Hospital | [facility] | | | | 2004 | Encounter | MED CTR XRAY [address] | | | | | | [address] | | | | | | [place] [address] | | | | | | [phone] | | | +--------+ + + + [...]
--- OUTSIDE RECORDS SUMMARY | ~2019-10-14 | XMS | Encounter Summary ---
Demographics + + + | Address | [address] | | | [place] [address] | + + + | Home Phone [...] + | Matthew Ramirez | CHRIS | [address] | | | | | [place] | | | | | [address] | | + + + + + | Nella Haque | ECON | Unknown | | + + + + + Care Team Providers + +------+ + | Care Rheostat Assembler Name | Role | Phone | [...] | | 2010 | | [facility] | MD Gillian [address] | | | | | [address] | [facility] | | | | | [address] | [place], [place] | | | | | [place], [facility] floor | [address] | | | | | [place], [place] | [phone] | | | | | [address] | | | | | | [phone] | | | +--------+ + + + [...]
--- OUTSIDE RECORDS SUMMARY | ~2019-10-14 | XMS | Encounter Summary ---
Demographics + + + | Address | [address] | | | [place] [address] | + + + | Home Phone [...] + | Author | [facility] | | | and Nenoana | + + + | Organization | [facility] | | [...] + | Matthew Ramirez | ECON | [address] | | | | | [place] | | | | | [address] | | + + + + + Care Team Providers + +------+ + | Care Lawn Care Professional Name | Role | Phone | [...] | 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 | [address] | | | | | adenocarcino | [address] | [place], | | | | | ma (HCC) | [address] | [place] [address] | | | | | Procedures | [place], [place] | Phone: | | | | | CT Chest | [address] | [phone] | | | | | Abdomen | Phone: | Fax: | | | | | Pelvis w | [phone] | [phone] | | | | | Contrast | Fax: | | | | | | CHG CT | [phone] | | | | | | SCAN,ABDOMEN | | | | | | | AND | | | | | | | PELVIS,W | | | | | | | CONTRAST TX | | | | | | [...] | 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 | [address] | | | | | adenocarcino | [address] | [place], | | | | | ma (HCC) | [address] | [place] [address] | | | | | Procedures | [place], [place] | Phone: | | | | | CT Chest | [address] | [phone] | | | | | Abdomen | Phone: | Fax: | | | | | Pelvis w | [phone] | [phone] | | | | | Contrast | Fax: | | | | | | CHG CT | [phone] | | | | | | SCAN,ABDOMEN | | | | | | | AND | | | | | | | PELVIS,W | | | | | | | CONTRAST TX | | | | | | [...] + + | 12/31/ | Hospital | [facility] | Matthew Shukla MD | Gastric | | 2019 | Encounter | MED CTR [address] | [address] | adenocarcinoma (HCC) | | | | [place], | [place], [place] | | | | | [place] [address] | [address] | | | | | [phone] | [phone] | | | | | | | [...]
--- OUTSIDE RECORDS SUMMARY | ~2019-10-14 | XMS | Encounter Summary ---
Demographics + + + | Address | [address] | | | [place] [address] | + + + | Home Phone [...] + + | Author | [facility] | | | and Nenoana | + + + | Organization | [facility] [...] + | Matthew Ramirez | ECON | [address] | | | | | [place] | | | | | [address] | | + + + + + Care Team Providers + +------+ + | Care Backhoe Operator Name | Role | Phone | [...] + + | 12/24/ | Telephone | [facility] | Matthew Shukla MD | Results | | 2019 | | GASTROENTEROLOGY | [address] [facility] | | | | | [address] [facility] | [place], [place] | | | | | [address] [place], [place] | [address] | | | | | [address] | [phone] | | | | | [phone] | | | +--------+ + + + [...]
--- OUTSIDE RECORDS SUMMARY | ~2019-10-14 | XMS | Encounter Summary ---
Demographics + + + | Address | [address] | | | [place] [address] | + + + | Home Phone [...] Author | [facility] | | | and Nenoana | + + + | Organization | [facility] | | [...] + | Matthew Ramirez | CHRIS | [address] | | | | | [place] | | | | | [address] | | + + + + + Care Team Providers + +------+ + | Care Photo Optics Technician Name | Role | Phone | [...] | | 04/17/ | | [place] [address] | | | | 2005 | | [phone] | | | +--------+ + + + [...]
--- OUTSIDE RECORDS SUMMARY | ~2019-10-14 | XMS | Encounter Summary ---
Demographics + + + | Address | [address] | | | [place] [address] | + + + | Home Phone | | + + + | Preferred Language | Unknown | + + + | Marital Status | | + + + | Mandaeism Affiliation | Unknown | + + + | Race | Unknown | + + + | Ethnic Group | Unknown | + + + Author + + + | Author | [facility] | | | and Nenoana | + + + | Organization | [facility] [...] + | Matthew Ramirez | ECON | [address] | | | | | [place] | | | | | [address] | | + + + + + Care Team Providers + +------+ + | Care Ethylbenzene Oxidizer Name | Role | Phone | + [...] [address] | [address] [place], | | | | | [facility], [place] | [place] [address] | | | | | [address] | [phone] | | | | | [phone] | | | +--------+ + + + [...] Care Everywhere.Foot Surgery: Maurice pace Fifth Toe (Greenlandic)Foot Surgery: Flexible and Rigid Hammertoes (Green[place]ic)Mallet, Hammer , and Claw Toes, Treating (Green[place]ic)Mallet, Hammer, and Claw Toes, What Are (Greenlandic)document ed in this encounter Medications at Time [...]
--- OUTSIDE RECORDS SUMMARY | ~2019-10-14 | XMS | Encounter Summary ---
Demographics + + + | Address | [address] | | | [place] [address] | + + + | Home Phone [...] Matthew Ramirez | ECON | [address] | | | | | [place] | | | | | [address] | | + + + + + | Nella Haque | ECON | Unknown | | + + + + + Care Team Providers + +------+ + | Care Skill Training Program Coordinator Name | Role | Phone | [...]
--- OUTSIDE RECORDS SUMMARY | ~2019-10-14 | XMS | Encounter Summary ---
Demographics + + + | Address | [address] | | | [place] [address] | + + + | Home Phone [...] | [facility] | | | and Nenoana | + + + | Organization | [facility] | | | and [...] + | Matthew Ramirez | CHRIS | [address] | | | | | [place] | | | | | [address] | | + + + + + Care Team Providers + +------+ + | Care Business Operations Manager Name | Role | Phone | + +------+ + PCP | Unavailable | + +------+ + Encounter Details +--------+ + + + + | Date | Type | Department | Care Team | Description | +--------+ + + + + | 06/27/ | Hospital | [facility] | | | | 2003 | Encounter | MED CTR XRAY [address] | | | | | | [address] | | | | | | [place] [address] | | | | | | [phone] | | | +--------+ + + + [...]
--- OUTSIDE RECORDS SUMMARY | ~2019-10-14 | XMS | Encounter Summary ---
Demographics + + + | Address | [address] | | | [place] [address] | + + + | Home Phone [...] + | Matthew Ramirez | CHRIS | [address] | | | | | [place] | | | | | [address] | | + + + + + | Nella Haque | ECON | Unknown | | + + + + + Care Team Providers + +------+ + | Care Hand Therapist Name | Role | Phone | [...] | | | | CONSULT TO | U[place]ER [place], | and [facility] | | | | | HEMATOLOGY / | [place] | [address] | | | | | ONCOLOGY | [address] | Ave | | | | | PRACTICE | Phone: | [place], [place] | | | | | | [phone] | [address] | | | | | | Fax: | Phone: | | | | | | [phone] | [phone] | | | | | | | Fax: | | | | | | | [phone] | + +---------+ + + + + [...] | metastasized to | | | | [facility] | [facility] [place] | multiple sites, | | | | for Health and | [address] | unspecified | | | | Healing [address] | [phone] | laterality (HCC) | | | | Ave [place], [place] | | (Primary Dx) | | | | [address] | | | | | | [phone] | | | +--------+---------+ + + + [...] due to this pain. She lives in [place] with her , whom she cares for [...] adenocarcinoma -saw Dr. Antony of oncology at [facility], discussed getting EUS for further evaluati on [...] 300 mg by mouth three times daily. Xkyjodrmoal-Ddamakewv-Hvn C-Mn (GLUCOSAMINE CHONDROITIN MAXSTR) 500-400 mg Oral [...] the evening. triamcinolone 55 mcg Nasal Aerosol, [place], Instill 2 Sprays into each nostril once [...] Social History Narrative Lives with partner in [facility]- 34yrs. Son in [place]. 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 Now traveling [facility]. Family History Problem Relation Cancer Mother multiple [...] Diagnosis 1. Multiple specimens A to F [id number]; 01/13/19): A. Stomach, antrum at great curvature, [...] Pathology Resident Bonifacio Resendez MD Pathologist Pathology, [facility] My electronic signature indicates that [...] Ramona Taylor MD Hematology/Oncology Fellow PGY-5 Pager [phone] Associated attestation - Rodriguez Bower MD - [...] contact their office Rodriguez Bower MD, MS ID#[id number] Orthodontist Assistantdirector translational Division of Hematology and Medical Oncology [facility] Pager#[phone] documented in this encounter Plan of Treatment Not on filedocumented as of this encounter Visit Diagnoses + + | Diagnosis | + + | Breast cancer metastasized to multiple sites, unspecified laterality (HCC) - Primary | + + documented in this encounter"
--- OUTSIDE RECORDS SUMMARY | ~2019-10-14 | XMS | Encounter Summary ---
Demographics + + + | Address | [address] | | | [place] [address] | + + + | Home Phone | | + + + | Preferred Language | Unknown | + + + | Marital Status | | + + + | Hinduism Affiliation | Unknown | + + + | Race | Unknown | + + + | Ethnic Group | Unknown | + + + Author + + + | Author | and [facility] | | | and Nenoana | + + + | Organization | and [facility] [...] + | Matthew Ramirez | CHRIS | [address] | | | | | [place] | | | | | [address] | | + + + + + Care Team Providers + +------+ + | Care Coal Screener Name | Role | Phone | + [...] [phone] | | | | | | [place], [place] | | | | | | [address] | | | | | | [phone] | | | +--------+ + + + [...]
--- OUTSIDE RECORDS SUMMARY | ~2019-10-14 | XMS | Encounter Summary ---
Demographics + + + | Address | [address] | | | [place] [address] | + + + | Home Phone [...] Author | [facility] | | | and Nenoana | + + + | Organization | [facility] | | | [...] + | Matthew Ramirez | ECON | [address] | | | | | [place] | | | | | [address] | | + + + + + Care Team Providers + +------+ + | Care Material Manager Name | Role | Phone | [...] [place] | | | | | [address] | [place] [address] | | | | | [place] [address] | [phone] | | | | | [phone] | | | +--------+ + + + [...]
--- OUTSIDE RECORDS SUMMARY | ~2019-10-14 | XMS | Encounter Summary ---
Demographics + + + | Address | [address] | | | [place] [address] | + + + | Home Phone [...] + | Matthew Ramirez | CHRIS | [address] | | | | | [place] | | | | | [address] | | + + + + + | Nella Haque | ECON | Unknown | | + + + + + Care Team Providers + +------+ + | Care Product Development Intern Name | Role | Phone | [...] | | | | | | | Eunice | | | | | | | Gabriele | | | | | | | Elida, 7th | | | | | | | [facility] | | | | | | | [place], [place] | | | | | | | [address] | | | | | | | Phone: | | | | | | | [phone] | | | | | | | Fax: | | | | | | | [phone] | +--------+--------+ + + + + Encounter [...] | | | [address] | [facility] | | | | | [address] | [place], [place] | | | | | Pavilion, 7th floor | [address] | | | | | [place], [place] | [phone] | | | | | [address] | | | | | | [phone] | | | +--------+ + + + [...]
--- OUTSIDE RECORDS SUMMARY | ~2019-10-14 | XMS | Encounter Summary ---
Demographics + + + | Address | [address] | | | [place] [address] | + + + | Home Phone [...] + | Matthew Ramirez | ECON | [address] | | | | | [place] | | | | | [address] | | + + + + + | Nella Haque | ECON | Unknown | | + + + + + Care Team Providers + +------+ + | Care Hand Molder Name | Role | Phone | [...]
--- OUTSIDE RECORDS SUMMARY | ~2019-10-14 | XMS | Encounter Summary ---
Demographics + + + | Address | [address] | | | [place] [address] | + + + | Home Phone [...] + + | Author | [facility] | | | and Nenoana | + + + | Organization | [facility] | | | and [...] + | Matthew Ramirez | ECON | [address] | | | | | [place] | | | | | [address] | | + + + + + Care Team Providers + +------+ + | Care Inspector And Sorter Name | Role | Phone | [...] H/O neoplasm | | | | [place], [place] | | of uncertain | | | | [address] | | behavior of skin; | | | | [phone] | | Primary localized | | | [...] of this encounter Progress Notes Adia Rosario, HYDROELECTRIC MACHINERY MECHANIC - 01/01/2019 11:27 AM PDTCT Chest Abdomen Pelvis w Contrast on 08/06/19 19 at [facility] FINDINGS: BONES: No osteoblastic or [...]
--- OUTSIDE RECORDS SUMMARY | ~2019-10-14 | XMS | Encounter Summary ---
Demographics + + + | Address | [address] | | | [place] [address] | + + + | Home Phone [...] Author | [facility] | | | and Nenoana | + + + | Organization | [facility] | | [...] + | Matthew Ramirez | ECON | [address] | | | | | [place] | | | | | [address] | | + + + + + Care Team Providers + +------+ + | Care Narcotics And/Or Vice Detective Name | Role | Phone | + [...] | | | | | ID REPAIR OF | | | | | [...] | | | [place], [place] | [place] [address] | | | | | [address] | [phone] | | | | | [phone] | | | +--------+---------+ + + + [...]
--- OUTSIDE RECORDS SUMMARY | ~2019-10-14 | XMS | Encounter Summary ---
Demographics + + + | Address | [address] | | | [place] [address] | + + + | Home Phone [...] + | Matthew Ramirez | CHRIS | [address] | | | | | [place] | | | | | [address] | | + + + + + | Nella Haque | ECON | Unknown | | + + + + + Care Team Providers + +------+ + | Care Primary Care Pediatrician Name | Role | Phone | + [...] | | | | [facility] | [place], [place] | (Acetaminophen | | | | for Health and | [address] | adjustment ) | | | | Healing [address] | [phone] | | | | | [place], [place] | | | | | | [address] | | | | | | [phone] | | | +--------+ + + + [...]
--- OUTSIDE RECORDS SUMMARY | ~2019-10-14 | XMS | Encounter Summary ---
Demographics + + + | Address | [address] | | | [place] [address] | + + + | Home Phone [...] | Author | [facility] | | | and Nenoana | + + + | Organization | [facility] | | [...] + | Matthew Ramirez | ECON | [address] | | | | | [place] | | | | | [address] | | + + + + + Care Team Providers + +------+ + | Care New Car Salesperson Name | Role | Phone | [...] | 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 | [address] | | | | | adenocarcino | [address] | [place], | | | | | ma (HCC) | [address]VD | [place] [address] | | | | | Procedures | [place], [place] | Phone: | | | | | CT Chest | [address] | [phone] | | | | | Abdomen | Phone: | Fax: | | | | | Pelvis w | [phone] | [phone] | | | | | Contrast | Fax: | | | | | | CHG CT | [phone] | | | | | | SCAN,ABDOMEN | | | | | | | AND | | | | | | | PELVIS,W | | | | | | | CONTRAST TN | | | | | | | [...] | 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 | [address] | | | | | adenocarcino | [address] | [place], | | | | | ma (HCC) | [address] | [place] [address] | | | | | Procedures | [place], [place] | Phone: | | | | | CT Chest | [address] | [phone] | | | | | Abdomen | Phone: | Fax: | | | | | Pelvis w | [phone] | [phone] | | | | | Contrast | Fax: | | | | | | CHG CT | [phone] | | | | | | SCAN,ABDOMEN | | | | | | | AND | | | | | | | PELVIS,W | | | | | | | CONTRAST TN | | | | | | | CAT SCAN OF | | | | | | | CHEST | | | | | | | CONTRAST | | | +--------+--------+ + + + + Encounter Details +--------+ + + + + | Date | Type | Department | Care Team | Description | +--------+ + + + + | 12/31/ | Hospital | [facility] | Matthew Shukla MD | Gastric | | 2019 | Encounter | MED [facility] [address] | [address] | adenocarcinoma (HCC) | | | | [place], | [place], [place] | | | | | [place] [address] | [address] | | | | | [phone] | [phone] | | | | | | | [...]
--- OUTSIDE RECORDS SUMMARY | ~2019-10-14 | XMS | Encounter Summary ---
Demographics + + + | Address | [address] | | | [place] [address] | + + + | Home Phone [...] + | Matthew Ramirez | CHRIS | [address] | | | | | [place] | | | | | [address] | | + + + + + | Nella Haque | ECON | Unknown | | + + + + + Care Team Providers + +------+ + | Care Channel Development Manager Name | Role | Phone [...] Clinics at S | [address] [facility] | | | | | [facility] | [place], [place] | | | | | chi [facility] and | [address] | | | | | Healing [address] | [phone] | | | | | Ave [place], [place] | | | | | | [address] | | | | | | [phone] | | | +--------+--------+ + + + [...]
--- OUTSIDE RECORDS SUMMARY | ~2019-10-14 | XMS | Encounter Summary ---
Demographics + + + | Address | [address] | | | [place] [address] | + + + | Home Phone [...] Author | [facility] | | | and Nenoana | + + + | Organization | [facility] | | [...] + | Matthew Ramirez | ECON | [address] | | | | | [place] | | | | | [address] | | + + + + + Care Team Providers + +------+ + | Care Test Deck Supervisor Name | Role | Phone | [...] | | | [address] | [place] [address] | | | | | [place] [address] | | | | | | [phone] | | | +--------+ + + + [...]
--- OUTSIDE RECORDS SUMMARY | ~2019-10-14 | XMS | Encounter Summary ---
Demographics + + + | Address | [address] | | | [place] [address] | + + + | Home Phone [...] Author | [facility] | | | and Nenoana | + + + | Organization | [facility] [...] + | Matthew Ramirez | ECON | [address] | | | | | [place] | | | | | [address] | | + + + + + Care Team Providers + +------+ + | Care Greenhouse Specialist Name | Role | Phone | [...] | | [address] | [place] [address] | | | | | [address] | | | | | | [phone] | | | +--------+ + + + [...]
--- OUTSIDE RECORDS SUMMARY | ~2019-10-14 | XMS | Encounter Summary ---
Demographics + + + | Address | [address] | | | [place] [address] | + + + | Home Phone [...] + | Matthew Ramirez | CHRIS | [address] | | | | | [place] | | | | | [address] | | + + + + + | Nella Mitchellox Beverley ECON | Unknown | | + + + + + Care Team Providers + +------+ + | Care Job Compositor Name | Role | Phone | + +------+ + | Long Copeland MD | PCP | | + +------+ + Encounter Details +--------+ + + + + | Date | Type | Department | Care Team | Description | +--------+ + + + + | 01/28/ | Nuclear Plant Equipment Operator | Surgical Oncology | Cristel Galicia MD | Gastric | | 2019 | | at [facility] [address] | [address] | adenocarcinoma (HCC) | | | | Ave Mail Code: | [place], [place] | (Primary Dx) | | | | [facility] | [address] | | | | | and Healing, | [phone] | | | | | Building [address] | | | | | | [place], [place] | | | | | | [address] | | | | | | [phone] | | | +--------+ + + + [...] Electronically | | Pathologic | to F [id number]; | | DEPARTMENT | signed by Bonifacio [...] | | | | | [facility] | | | | [...] [facility] | | | Received | Institution: [facility] | | DEPARTMENT | | | | [facility] | | OF | | | | [place], [place] | | PATHOLOGY | | | | [id number] Accession | | | | | | Number: | | | | | | [id number] | | | | | | Collection [...] | + + + + + | [facility] | [address] | [place] [address] | | | PATHOLOGY | [address] | | | + + + + + documented in this encounter Visit Diagnoses + + | Diagnosis | + + | Gastric adenocarcinoma (HCC) - Primary Malignant neoplasm of stomach, unspecified | | site | + + documented in this encounter"
--- OUTSIDE RECORDS SUMMARY | ~2019-10-14 | XMS | Encounter Summary ---
Demographics + + + | Address | [address] | | | [place] [address] | + + + | Home Phone [...] Author | [facility] | | | and Nenoana | + + + | Organization | [facility] | [...] + | Matthew Gomez | ECON | [address] | | | | | [place] | | | | | [address] | | + + + + + Care Team Providers + +------+ + | Care Automatic Punch Press Operator Name | Role | Phone [...] | | | | [K31.9] | | [address] Phone: | | | | | Procedures | | [phone] | | | | | [place] | | Fax: | | | | | ESOPHAGOGAST | | [phone] | | | | | RODUODENOSCO | | | | | | | PY TRANSORAL | | | | | | | DIAGNOSTIC | | | | | | | [place] | | | | | [...] | | | [address] | [address] | | | | | [address] | | | | | | [phone] | | | +--------+---------+ + + + [...] + + | | [facility] | | ASLHY GOMEZ | [place] | | : 1940 AGE: 78 years SEX: Female | [facility] | | | LABORATORY | | Acct: [id number] Location: | [facility] | | [facility]; [facility] MEDICAL PROCEDURE UNIT [place]; [facility] | | | MEDICAL PROCEDURE UNIT [place] | | | Case #: [id number] Ordering: | | | SUKUMAR STEVENSON MD Client: [facility] | | | [facility] Copy To: | | | Printed: [...] fragments. | | | Mild inactive chronic gastritis.[facility]/SK 01/14/19 01:36 pmVerified | | | by: ANNABELLE FULLER MDVerify Date: 01/20/2019 09:40 [facility] | | | [facility] [address] | | | SURGICAL PATHOLOGY FINAL REPORTCollected: [...] appropriately.As a part of our quality control assessor | | | policy, this case has [...] investigational or for | | | research. [facility] is certified under the Clinical | | | Laboratory Improvement Amendments of 1988 (CLIA) as qualified to | | | perform high complexity clinical laboratory testing. | | + + + + + + + + | Performing | Address | City/State/[facility] | Phone Number | | Organization | | | | + + + + + | [facility] | [address] [place] [address]. | [place] [address] | | | [facility] | | | | | LABORATORY [place] | | | | + + + + + EUS Upper (01/13/2019 11:39 AM PDT) + + | Specimen | + + | | + + + + + | Narrative | Performed At | + + + | [facility] | [address] | | [facility] | PROVATION | | CenterGI | | | Patient Name: Ashly Gomez Procedure | | | Date: 01/13/2019 11:39 AMMRN: [id number] | | | of : 1940 | [...] Dr. SanReferring: | | | MAT[facility]W [facility], [facility]ENTERedic[facility]: Monitored | | | Anesthesia [...] AMNumber | | | of Addenda: 0 Merged With [facility] - | | | Endoscopy Services | | | | | |SUKUMAR STEVENSON MD | | |01/13/2019 1:07:25 PM | | |This report has been signed electronically. | | | | | |Note Initiated On: 01/13/2019 11:39 AM | | |Number of Addenda: 0 | | | | | | Merged With [facility] | | + [...] | [facility] | | Duration:172 msP Horizontal [place]:28 degP Front [place]:60 degQ Onset:512 | | | msQRSD Interval:136 msQT Interval:448 msQTcB:477 msQTcF:467 msQRS | | | Horizontal [place]:150 degQRS [place]:-35 degI-40 Horizontal [place]:34 degI-40 | | | Front [place]:74 degT-40 Horizontal [place]:151 degT-40 Front [place]:-77 degT | | | Horizontal [place]:8 degT Wave [place]:51 degS-T Horizontal [place]:21 degS-T | | | Front [place]:83 degSeverity:- ABNORMAL ECG -INTERP:SINUS | | | RHYTHMINTERP:VENTRICULAR PREMATURE COMPLEXINTERP:RBBB AND | | | LAFBINTERP:LEFT VENTRICULAR HYPERTROPHYElectronically signed by: | | | ANDREAS MAXWELL 01-18-2019 07:24:33 | | |QTcF:467 ms | | |QRS Horizontal [place]:150 deg | | |QRS [place]:-35 deg | | |I-40 Horizontal [place]:34 deg | | |I-40 Front [place]:74 deg | | |T-40 Horizontal [place]:151 deg | | |T-40 Front [place]:-77 deg | | |T Horizontal [place]:8 deg | | |T Wave [place]:51 deg | | |S-T Horizontal [place]:21 deg | | |S-T Front [place]:83 deg | | |Severity:- ABNORMAL ECG - [...] + + | [facility] | [address] | [place] [address] | [phone] | + + + + + POC Glucose (01/13/2019 10:06 AM PDT) + + + + + + | Component | Value | Ref Range | Performed | Pathologist | | | | | At | Signature | + + + + + + | Glucose, | 111 (H)Comment: | 65 - 99 mg/dL | [facility] | | | POC | Performed by [facility] [address] | | [place]ED | | | | [address] [place], [place] | | HEART | | | | [address] | | MEDICAL | | | | [...] + + | [facility] | [address] | [place] [address] | | | [facility] | | | | | LABORATORY [...] scheduled: AC, NPO, Daytime | | | [phone] Use NIGHT DOSE for | | | doses scheduled: HS, 3AM, | | | Nighttime [phone] If the BG is | | | [...]
[~2019-10-14 14:40] MED LIST changes: +FEMARA2.5 MG NG; +FLUTICASONE PRO16 GM NAS; +ULTRAM50 MG PO
--- OUTSIDE RECORDS SUMMARY | 2019-10-14 14:44 | XMS ---
PreManage Notification: HOWIE GOMEZ Security Doll Wigs Hackler Events No recent Security Events currently on file CRITERIA MET - CHEN CARE PROVIDERS PATTI WELCH [facility] 06/28/2019-Current PHONE: [phone] HOWIE BAÑUELOS Physician Illuminating Engineer Current PHONE: Unknown Tavia has no Care Guidelines for this patient. [place] VISIT COUNT (12 MO.) Adryan Gilbert TOTAL 5 NOTE: Visits indicate total known visits. ED/UCC VISIT TRACKING (12 MO.) 10/14/2019 14:41 [facility] TYPE: Emergency COMPLAINT: - ABDOMINAL PAIN 09/12/2019 19:31 [facility] TYPE: Emergency [...] (postinfection) - Essential (primary) hypertension - Other records coordinator (current) drug therapy - Other specified abnormal findings of blood chemistry - Nausea with vomiting, unspecified - canine service instructor trainer (current) use of opiate analgesic 05/06/2019 22:17 [facility] TYPE: Emergency COMPLAINT: - VOMITING INPATIENT VISIT TRACKING (12 MO.) 09/13/2019 07:21 [facility] TYPE: Medical Surgical COMPLAINT: - SMALL BOWEL OBSTRUCTION DIAGNOSES: - Secondary malignant neoplasm of breast - Pure hypercholesterolemia, unspecified - canine service instructor trainer (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 - Partial intestinal obstruction, unspecified as to cause - Allergy status to sulfonamides status - Personal history of malignant neoplasm of cervix uteri - Klebsiella pneumoniae [K. pneumoniae] as the cause of disease - canine service instructor trainer (current) use of opiate analgesic - Other records coordinator (current) drug therapy - Fibromyalgia - Hypomagnesemia - Malignant (primary) neoplasm, unspecified - Chronic obstructive pulmonary disease, unspecified - Hypokalemia - Urinary tract infection, site not specified - Personal history of nicotine dependence - detention (current) use of non-steroidal anti-inflammatories - Essential (primary) hypertension 06/29/2019 07:00 [facility] TYPE: Medical Surgical COMPLAINT: - BOWEL OBSTRUCTION DIAGNOSES: - Pure hypercholesterolemia, unspecified - Essential (primary) hypertension - Pure hypercholesterolemia, unspecified - detention (current) use of non-steroidal anti-inflammatories - Fibromyalgia - Constipation, unspecified - Secondary malignant neoplasm of unspecified site - Allergy status to sulfonamides status - Personal history of malignant neoplasm of cervix uteri - Unspecified intestinal obstruction, unspecified as to partial - Chronic obstructive pulmonary disease, unspecified - Generalized abdominal pain - Unspecified intestinal obstruction, unspecified as to partial - Essential (primary) hypertension - canine service instructor trainer (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 - detention (current) use of opiate analgesic - Diverticulosis of intestine, part unspecified, without perfor - Allergy status to sulfonamides status - Constipation, unspecified - Fibromyalgia - Other records coordinator (current) drug therapy - Malignant neoplasm of unspecified site of unspecified female - Chronic obstructive pulmonary disease, unspecified - canine service instructor trainer (current) use of non-steroidal anti-inflammatories - Secondary malignant neoplasm of unspecified site - Personal history of malignant neoplasm of cervix uteri - Personal history of nicotine dependence - detention (current) use of opiate analgesic - Other senior care (current) drug therapy - Diverticulosis of intestine, part unspecified, without perfor - detention (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 - Malignant neoplasm of unspecified site of unspecified female - Personal history of nicotine dependence 05/07/2019 12:09 [facility] TYPE: Medical Surgical COMPLAINT: - SBO DIAGNOSES: - detention (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 - Other records coordinator (current) drug therapy - Malignant neoplasm of unspecified site of unspecified female - detention (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 - detention (current) use of selective estrogen receptor modula - Intestinal adhesions [bands], unspecified as to partial versu - Other records coordinator (current) drug therapy - Unspecified intestinal obstruction, unspecified as to partial - Allergy status to sulfonamides status - Secondary malignant neoplasm of other digestive organs - Allergy status to sulfonamides status - Malignant neoplasm of unspecified site of unspecified female - Intestinal adhesions [bands], unspecified as to partial versu - canine service instructor trainer (current) use of selective estrogen receptor modula - Secondary malignant neoplasm of other digestive organs [email or web address]
--- NOTE | 2019-10-14 22:14 | NUR ---
PATIENT IN BED AFTER ARRIVING FROM ER AND REPORT GIVEN. PREPARING FOR ASSESSMENT.
--- NOTE | 2019-10-14 23:18 | NUR ---
PATIENT HAD 1MG DILAUDID FOR 6/10 ABD PAIN AND IS FEELING BETTER, HAD CALLED FOR ANXIETY AND IV ATIVAN ORDERED AND 0.5 MG GIVEN FOR SLEEP. ADMIT DONE AND PATIENT JUST FINISHED USING THE BATHROOM WITH INSTRUCTOR APPAREL MANUFACTURE AND IS GOING TO TRY AND GO TO SLEEP. CALL LIGHT IN REACH.
--- NOTE | 2019-10-14 23:21 | NUR ---
HELPED PT TO THE BATHROOM AND BACK TO BED WITH HER CANE. BEDSIDE TABLE AND CALL LIGHT IN REACH. GARBAGE BAG AND LEMON SWABS GIVEN PER PT REQUEST.
--- NOTE | 2019-10-15 00:14 | NUR ---
PATIENT RESTING QUIETLY, EYES CLOSED, RESPIRATIONS REGULAR AND EVEN, EYES CLOSED, CALL LIGHT LIGHT IN REACH.
--- NOTE | 2019-10-15 02:07 | NUR ---
HELPED PT TO THE BATHROOM AND BACK TO BED. VITALS AND I&OS DONE AND CHARTED.PT NEEDS NOTHING MORE AT THIS TIME.
--- NOTE | 2019-10-15 03:47 | NUR ---
PATIENT RESTING QUIETLY, EYES CLOSED, PATIENT SUPINE, RESPIRATIONS REGULAR AND EVEN, CALL LIGHT IN REACH.
--- NOTE | 2019-10-15 04:27 | NUR ---
PATIENT HAS SLEPT WELL AND HAS HAD NO C/O PAIN SINCE SHE GOT 05.MG ATIVAN AND 1MG IV DILAUDID SHORTLY AFTER HER ADMISSION. PATIENT RESTING QUIETLY STILL AT THE TIME. CALL LIGHT IN REACH.
--- NOTE | 2019-10-15 05:17 | NUR ---
HELPED PT TO THE BATHROOM AND BACK TO BED. VITALS AND I&OS DONE AND CHARTED. BEDSIDE TABLE AND CALL LIGHT IN REACH. GARBAGES EMPTIED. PT NEEDS NOTHING MORE AT THIS TIME.
--- NOTE | 2019-10-15 06:51 | NUR ---
HELPED PT BACK TO BED FROM THE BATHROOM. BEDSIDE TABLE AND CALL LIGHT IN REACH. PT ASKED FOR SOMETHING FOR HER ANXIETY AND HER HEADACHE. I INFORMED HER RN AMY. PT RESTING IN BED WHEN I LEFT THE ROOM.
--- NOTE | 2019-10-15 07:06 | NUR ---
PATIENT GIVEN 1MG IV ATIVAN FOR ANXIETY AND 1MG IV DILAUDID FOR 10/10 [place]. PATIENT HAS NO OTHER NEEDS AT THIS TIME. CALL LIGHT IN REACH.
--- NOTE | 2019-10-15 10:03 | NUR ---
ASSESSMENT COMPLETED. IV MEDICATION GIVEN PRESCRIBED. EDUCATED ON PROTONIX, VERBALIZES UNDERSTANDING. TEARFUL. STATES SHE NEEDS TO CREATE A PLAN FOR HER SPOUSE, WHOM SHE IS VERY CONCERNED ABOUT. STATES SHE KNOWS THERE IS NOT MUCH THE DOCTORS CAN DO FOR HER. ALLOWED TO TALK AND CRY. NG TUBE CONTINUES ON LOW INTERMITTENT SUCTION IN RIGHT NARE. MINIMAL OUTPUT NOTED AT THIS TIME. CALL LIGHT IN REACH, BED RAILS UP X2. DENIES OTHER NEEDS AT THIS TIME.
--- NOTE | 2019-10-15 10:30 | NUR ---
MED REC COMPLETE
--- NOTE | 2019-10-15 12:47 | NUR ---
ASSESSMENT COMPLETED. PATIENT STATES SHE MAY WANT TO GET UP AND WALK LATER. STATES PAIN IS TOLERABLE AT THIS TIME AND DOES NOT NEED ANYTHING. DENIES OTHER NEEDS. CALL LIGHT IN REACH. BED RAILS UP X2. IV FLUIDS CONTINUE TO INFUSE. NG REMAINS ON LOW INTERMITTENT SUCTION.
--- NOTE | 2019-10-15 14:50 | NUR ---
TEARFUL. STATES SHE WANTS SOMETHING FOR ANXIETY AND PAIN. STATES SHE IS HAVING GENERALIZED PAIN DUE TO INABILITY TO TAKE FIBROMYALGIA MEDICATION. STATES SHE IS ALSO VERY ANXIOUS ABOUT HER PROGNOSIS AND HER . SHE WOULD LIKE TO GO HOME.
--- NOTE | 2019-10-15 16:03 | NUR ---
LYING IN BED. STATES SHE IS FEELING BETTER AT THIS TIME. REQUESTS DARK ROOM SO SHE MAY REST. DENIES OTHER NEEDS. CALL LIGHT IN REACH, SIDE RAILS UP X2.
--- NOTE | 2019-10-15 16:19 | NUR ---
TEARFUL INTERMITTENTLY THROUGHOUT THE DAY. PRN ANALGESIC AND ATIVAN GIVEN X1, WITH IMPROVEMENT IN PAIN AND FEELINGS OF ANXIETY. CONTINUES TO BE NPO. REMAINS ON IV FLUIDS. NG TO LOW INTERMITTENT SUCTION. AMBULATES TO BR WITH STANDBY ASSIST. CONTINENT AND INCONTINENT OF URINE. NO BOWEL MOVEMENTS TODAY. BOWEL SOUNDS REMAIN HYPOACTIVE. BEGINNING TO PASS GAS.
--- NOTE | 2019-10-15 18:45 | NUR ---
REQUESTING "CREAM FOR ARTHRITIS." DR. ZELAYA CALLED, STATES SHE WILL RETURN CALL LATER. PATIENT NOTIFIED. VERBALIZED UNDERSTAND.
--- NOTE | 2019-10-15 20:12 | NUR ---
PATIENT RESTING IN BED. HAS BEEN USING THE PHONE. PATIENT SAYS SHE HAS ARIEL NEEDS AT THIS TIME, AND NAYELI WANTS TO REST FOR NOW. PATIENT SORROWFUL, ABOUT DISCUSSIONS TODAY. CALL LIGHT IN REACH.
--- NOTE | 2019-10-15 20:53 | NUR ---
PATIENT GIVEN 1MG IV ATIVAN AND 1MG IV DILAUDID FOR ANXIETY AND GENERALIZED 7/10 PAIN. PATIENT RESTING QUIETLY NOW AND NEW ORAL SWABS GIVEN. CALL LIGHT IS IN REACH.
--- NOTE | 2019-10-15 23:30 | NUR ---
PATIENT UP TO THE BATHROOM AND BACK TO BED. 1MG IV DILAUDID GIVEN FOR 5/10 GENERALIZED PAIN.
--- NOTE | 2019-10-16 01:02 | NUR ---
PATIENT RESTING QUIETLY SUPINE, EYES CLOSED, RESPIRATIONS REGULAR AND EVEN, AND CALL LIGHT IN REACH.
--- NOTE | 2019-10-16 02:00 | NUR ---
PATIENT UP TO USE THE BATHROOM WITH 1PSBA AND THEN BACK TO BED. RESTING QUIETLY NOW AND TRYING TO GO BACK TO SLEEP. CALL LIGHT IN REACH.
--- NOTE | 2019-10-16 03:22 | NUR ---
PATITENT UP TO THE BATHROOM AND BACK TO BED WITH 1PSBA. PATIENT GOING TO TRY AND GET SOME MORE SLEEP. CALL LIGHT IN REACH.
--- NOTE | 2019-10-16 04:18 | NUR ---
PATIENT HAS RESTED WELL MOST OF THE NIGHT, EXCEPT FOR HAVING TO GET UP AND USE THE REST ROOM. PATIENT HAS HAD DILAUDID X2 FOR PAIN AND ATIVAN X1 FOR ANXIETY. PATIENT WOULD BE INDEPENDENT IN THE ROOM IF SHE WAS NOT ATTACHED TO THE NG TUBE AND IV. PATIENT RESTING QUIETLY AT THIS TIME. CALL LIGHT IN REACH.
--- NOTE | 2019-10-16 04:36 | NUR ---
PATIENT CALLED FOR A NEBULIZER TREATMENT, SO THIS NURSE CALLED RT JONNIE TO COME AND TALK WITH PATIENT ABOUT AND NEB TREATMENT.
--- NOTE | 2019-10-16 05:04 | NUR ---
PATIENT HAD HER NEB TREATMENT AND THEN WAS VERY ANXIOUS AND HAVING GENERALIZED PAIN OF 6/10 AND WAS GIVEN 1MG IV ATIVAN AND 1MG IV DILAUDID AND SHE IS TRY TO REST NOW. CALL LIGHT IN REACH.
--- NOTE | 2019-10-16 06:40 | NUR ---
PATIENT RESTING QUIETLY IN HER BED PLAYING ON HER PHONE. NO NEEDS AT THIS TIME.
--- NOTE | 2019-10-16 07:00 | NUR ---
LYING IN BED. STATES SHE IS NOT FEELING HERSELF THIS MORNING. ATTRIBUTES IT TO KNOWING SHE WILL NOT RECOVER FROM CANCER. STATES SHE WISHES SHE COULD HAVE FAMILY TO HELP EASE BURDEN. TEARFUL. AFTER A FEW MINUTES OF TALKING THROUGH ISSUES, TEARFULNESS RESOLVES AND BEGINS MAKING JOKES. RECIEVED REPORT FROM VIRI REYES.
--- NOTE | 2019-10-16 08:58 | NUR ---
ASSESSMENT COMPLETED. UPON ENTERING ROOM, PATIENT BEGINS DISCUSSING HOW SHE WOULD LIKE TO REARRANGE THE ROOM AND LAUGHS. STATES PAIN IS TOLERABLE AT THIS TIME. CALL LIGHT IN REACH, BED RAILS UP X2. STATES SHE WOULD LIKE TO CLEAN UP A BIT, BUT DOES NOT WANT FULL SHOWER.
--- NOTE | 2019-10-16 10:29 | NUR ---
NG CLAMPED. AMBULATES APPROXIMATELY 300 FEET IN HALLS WITH STANDBY ASSIST. UP IN RECLINER AT THIS TIME. ICE CHIPS AND WATER PROVIDED. EDUCATED TO TAKE SMALL SIPS AND TO DRINK A LITTLE AT A TIME TO ENSURE NO NAUSEA, VOMITING OR ABD PAIN. VERBALIZES UNDERSTANDING. CALL LIGHT IN REACH.
--- NOTE | 2019-10-16 12:14 | NUR ---
ASSESSMENT COMPLETED. NO C/O PAIN AT THIS TIME. CALL LIGHT IN REACH. TOLERATING PO LIQUIDS WITHOUT DIFFICULTY. BED RAILS UP X2. DR. ZELAYA UPDATED ON PATIENT CONDITION.
--- NOTE | 2019-10-16 13:38 | NUR ---
PATIENT IS NOT TOLERATING HAVING NG TUBE PLUGGED, HOOKED IT BACK IN INTERMITTANT SUCTION.
--- NOTE | 2019-10-16 14:19 | NUR ---
LYING IN BED. C/O NAUSEA, BUT NO EMESIS AT THIS TIME. RESTS WITH EYES CLOSED, OPENS THEM WHEN SPOKEN TO. CALL LIGHT IN REACH, BED RAILS UP X2. NG REMAINS CLAMPED AT THIS TIME.
--- NOTE | 2019-10-16 15:11 | NUR ---
USES CALL LIGHT STATING SHE VOMITED EVERYWHERE. NO EMESIS NOTED. NG CAME UNCLAMPED AND LEAKED A SMALL AMOUNT ON GOWN. GOWN CHANGED, NG SECURE CHANGED WELL. DENIES OTHER NEEDS AT THIS TIME.
--- NOTE | 2019-10-16 15:58 | NUR ---
DRESSING TO LEFT KNEE CHANGED. TOLERATED WITH MINIMAL COMPLAINTS OF PAIN AND DISCOMFORT. CALL LIGHT IN REACH, UP IN CHAIR.
--- NOTE | 2019-10-16 18:12 | NUR ---
PATIENT IN BED WATCHING TV. PATIENT ASKED ME TO GET INTO PERSONAL ITEMS BAG TO GET SOCKS, GOT SOCKS AND PUT THEM ON. CALL LIGHT IN REACH. NO FURTHER NEEDS AT THIS TIME.
--- NOTE | 2019-10-16 18:27 | NUR ---
PERIODS OF CONFUSION TODAY. BECOMES TEARFUL AND ANGRY AT TIMES. CALMS AFTER TALKING TO THIS NURSE. NG CLAMPED. NAUSEA FOR SHORT PERIOD THIS AFTERNOON, RESOLVES AFTER AMBULATING IN HALLS. DENIES PAIN THROUGHOUT DAY. RESTARTED CYMBALTA. DRINKING SIPS OF WATER AND EATING ICE CHIPS. CONTINUES TO PASS GAS. NO BM.
--- NOTE | 2019-10-16 19:42 | NUR ---
PATIENT RESTING QUIETLY IN BED, NO COMPLAINTS OF PAIN, WATCHING TV, NO OTHER NEEDS AT THIS TIME. CALL LIGHT IN REACH.
--- NOTE | 2019-10-16 20:13 | NUR ---
CHAIN SPLITTER ROUNDING NOTE. PT RESTING IN BED WATCHING TV. DENIES NEEDS AT THIS TIME. STATS SHE WILL CALL WHEN SHE IS READY TO USE THE BATHROOM. CALL LIGHT IN REACH. WHITE BOARD UDPATED.
--- NOTE | 2019-10-16 21:38 | NUR ---
PATIENT READY FOR BED, TOOK EVENING MEDS AND 1MG IV ATIVAN FOR ANXIETY. WATER AND CALL LIGHT IN REACH.
--- NOTE | 2019-10-16 23:11 | NUR ---
PATIENT UP TOT THE BATHROOM TO VOID AND BACK TO BED WITH 1PSBA. PATIENT COVERED UP, HAD NO OTHER NEEDS, CALL LIGHT IN REACH. LIGHTS TURNED DOWN.
--- NOTE | 2019-10-17 00:18 | NUR ---
PATIENT CALLED ABOUT HER DRY SORE THROAT AND SAID I GAVE HER SOMETHING FOR THAT LAST NIGHT THAT HELPED. ALL I GAVE HER WAS A VIAL OF DISPOSABLE SALINE DROPS. I WENT AND GOT A COUPLE OF THESE FOR HER AND SHE WAS SNORING WHEN i WENT BACK IN, TURNED BED ALARM ON AND PATIENT STILL SNORING. WILL RETURN TO TALK WITH PATIENT IF SHE CALLS AGAIN. CALL LIGHT IN REACH.
--- NOTE | 2019-10-17 01:26 | NUR ---
PATIENT BED LARM WENT OFF AND SHE NEEDED TO GO TO THE RESTROOM, 1PSBA TO RESTROOM AND VOIDED AND IS NOW BACK IN BED TRYING TO SLEEP. CALL LIGHT IN REACH.
--- NOTE | 2019-10-17 03:20 | NUR ---
PATIENT UP TO THE BATHROOM WITH YOSEPH GONZALEZ AND BACK TO BED 1PSBA.
--- NOTE | 2019-10-17 03:27 | NUR ---
PATIENT IS UP TO THE BATHROOM. SBA. PULL UPS PROVIDED. PATIENT IS BACK IN BED. CALL LIGHT IN REACH.
--- NOTE | 2019-10-17 04:25 | NUR ---
PATIENT HAS RESTED SOME TONIGHT, BETTER THAN LAST NIGHT. PATIENT HAS ONLY HAD 1MG OF ATIVAN SO FAR TONIGHT AND NO DILAUDID FOR PAIN. SOME SALINE AMPULES FOR HER THROAT SORENESS AND MULTIPLE TRIPS TO THE BATHROOM. IV SALINE STILL AT 125MLS/HR. PATIENT RESTING AT THIS TIME WWITH CALL LIGHT IN REACH.
--- NOTE | 2019-10-17 06:04 | NUR ---
PATIENT RESTING IN BED WATCHING TV AND GETTING READY FOR A LAB DRAW.
--- NOTE | 2019-10-17 06:35 | NUR ---
PATIENT JUST FINISHED HAVING LABS DRAWN AND WAS HAVING ANXIETY AND SOME INCREASED GENERALIZED PAIN OF 6/10. CALL LIGHT IN REACH.
--- NOTE | 2019-10-17 08:15 | NUR ---
PT AWAKE IN BED, SLIGHTLY FORGETFUL BUT ALERT AND ORIENTED TO ALL AT THIS TIME. REPORTS 6/10 ABD PAIN, MEDICATED WITH PRN TRAMADOL. PT TOOK A FEW SIPS OF WATER TO SWALLOW HER PILLS AND SHORTLY AFTER BEGAN VOMITING. APPROX 200ML OF LIQUIDY GREEN EMESIS. NO PILLS WERE NOTED IN EMESIS BAG. NGT IN PLACE, CLAMPED. PT REPORTS THAT HER THROAT IS SORE FROM NGT. DR. ZELAYA MADE AWARE OF PT VOMITING. CALL LIGHT WITHIN REACH.
--- NOTE | 2019-10-17 10:00 | NUR ---
NGT REMOVED PER ORDERS, PT SVETLANA WELL. DENIES PAIN, NAUSEA OR OTHER CONCERN AT THIS TIME. PT REQUESTED SOME TEA, PROVIDED. FULL LIQUID LUNCH ORDERED. CALL LIGHT WITHIN REACH.
--- NOTE | 2019-10-17 10:19 | NUR ---
NGT WAS REMOVED BY PRIMARY RN, PT CALLED TO REPORT THAT HER NOSE IS STILL STICKY. ADHESIVE REOMOVER IN THEN MOISTURE CREAM ON NOSE AFTER ADHESIVE REMOVED. NO OTHER REQUESTS.
--- NOTE | 2019-10-17 10:22 | NUR ---
CURRENTLY UPDATING DAUGHTER CINDY AT THIS TIME, OF PLAN OF CARE AND DISCHARGE PLAN EITHER TODAY OR TOMORROW, DEPENDING ON HOW TODAY GOES WITH THE NGT OUT, AND STARTING FULL LIQUID.
--- NOTE | 2019-10-17 10:57 | NUR ---
PATIENT DID HER OWN BED BATH SHE HASN'T WASHED HER FACE OR BRUSHED HER TEETH SHE SAID SHE WILL DO IT LATER.
--- NOTE | 2019-10-17 11:33 | NUR ---
PT SITTING UP IN BED AWAKE, DENIES PAIN OR OTHER NEEDS OR CONCERNS AT THIS TIME. CALL LIGHT WITHIN REACH.
--- NOTE | 2019-10-17 13:39 | NUR ---
PT ATE PUDDING AND YOGURT FOR LUNCH, SVETLANA WELL SO FAR. AMB TO RESTROOM WITH SBA. NOW BACK TO BED AND WOULD LIKE TO TAKE A NAP. CALL LIGHT WITHIN REACH.
--- NOTE | 2019-10-17 15:40 | NUR ---
PT AWAKE UP TO RESTROOM, STATES SHE FEELS GOOD AND WOULD LIKE TO GO HOME, DENIES PAIN OR NAUSEA. NOTIFED DR. ZELAYA.
--- NOTE | 2019-10-18 10:44 | NUR ---
CHW CALLED- PCP HOWIE BAÑUELOS OFFICE- PATIENT WAS LAST SEEN BY PCP ON 07/30/2019 NEXT APT IS SET FOR 11/02/2019. LAST PAIN MEDICATION REFILL WAS ON 07/27/2019. CHW STATED PATIENT IS CURRENTLY IN A LOT OF PAIN, PCP OFFICE STATED THEY WOULD CONTACT PATIENT AND SET UP AN APT FOR PAIN MANAGEMENT AND POSSIBLE HOSPICE REFERRAL. CHW CONTACTED DR GONZALEZ OFFICE-THEY HAVEN'T SEEN PATIENT IN A FEW YEARS BUT THEY WILL CONSULT WITH DR GONZALEZ TO SEE IF PATIENT PAIN MEDICATION PRESCRIPTION CAN BE MADE. THEY WILL CALL BACK WITH UPDATE.
== END 2019-10-17 16:50 | disposition home or self-care (01) ==
LOC: ED 14:40 → MS 14:42
PROVIDERS: ADMIT Internal Medicine
DX: K56.609 Unspecified intestinal obstruction, unspecified as to partial versus complete obstruction (principal); T69.9XXA Effect of reduced temperature, unspecified, initial encounter; C50.919 Malignant neoplasm of unspecified site of unspecified female breast; C78.5 Secondary malignant neoplasm of large intestine and rectum; J44.9 Chronic obstructive pulmonary disease, unspecified; M10.9 Gout, unspecified; I10 Essential (primary) hypertension; E78.5 Hyperlipidemia, unspecified; Z88.2 Allergy status to sulfonamides; Z79.899 Other long term (current) drug therapy
CPT/HCPCS: 36415; 71045; 74177; 80048; 80053; 81001; 83690; 83735; 84100; 85025; 94640; 96361; 96372; 96375; 96376; 99285-25; C9113; G0378; J1170; J1650; J2060; J2405; J7030; Q9967; U0002

== ENCOUNTER → 2020-02-10 | Emergency (ER) | payer MEDICARE, OTHER ==
[~2020-02-10] VITALS: Ht 175.3 cm; Wt 69.4 kg
[~2020-02-10] MED LIST changes: +KEFLEX500 MG PO
--- OUTSIDE RECORDS SUMMARY | ~2020-02-10 | XMS | Encounter Summary ---
Demographics + + + | Address | [address] | | | [place] [address] | + + + | Home Phone | | + + + | Preferred Language | Unknown | + + + | Marital Status | | + + + | Hinduism Affiliation | Unknown | + + + | Race | White | + + + | Ethnic Group | Not or | + + + Author + + + | Author | [facility] | | | and [place] | + + + | Organization | [facility] | | | and [place] | + + + | Address | Unknown | + + + | Phone | Unavailable | + + + Support + + + + + | Name | Relationship | Address | Phone | + + + + + | Nella Haque | ECON | Unknown | | + + + + + | Matthew Ramirez | ECON | [address] | | | | | [place] | | | | | [address] | | + + + + + Care Team Providers + +------+ + | Care Devops Engineer Name | Role | Phone | + +------+ + PCP | Unavailable | + +------+ + Encounter Details +--------+ + + + + | Date | Type | Department | Care Team | Description | +--------+ + + + + | 12/08/ | Hospital | [facility] | [place], | | | 2009 | Encounter | MED CTR GENERIC OP | Katerin Xavier MD | | | | | CONV DEPT [address] | | | | | | [place], | | | | | | [place] [address] | | | | | | [phone] | | | +--------+ + + + [...] on file | | + + + documented as of this encounter Plan of Treatment Not on filedocumented as of this encounter Visit Diagnoses Not on filedocumented in this encounter"
--- OUTSIDE RECORDS SUMMARY | ~2020-02-10 | XMS | Encounter Summary ---
Demographics + + + | Address | [address] | | | [place] [address] | + + + | Home Phone | | + + + | Preferred Language | Unknown | + + + | Marital Status | | + + + | Samaritan Affiliation | Unknown | + + + | Race | White | + + + | Ethnic Group | Not or | + + + Author + + + | Author | [facility] | | | and [place] | + + + | Organization | [facility] | | | and [...] + | Matthew Ramirez | ECON | [address] | | | | | [place] | | | | | [address] | | + + + + + Care Team Providers + +------+ + | Care Corporate Account Executive Name | Role | Phone | + +------+ + PCP | Unavailable | + +------+ + Encounter Details +--------+ + + + + | Date | Type | Department | Care Team | Description | +--------+ + + + + | 03/20/ | Hospital | [facility] | | | | 1994 | Encounter | MED CTR XRAY [address] | | | | | | [place] | | | | | | [place] [address] | | | | | | [phone] | | | +--------+ + + + [...]
--- OUTSIDE RECORDS SUMMARY | ~2020-02-10 | XMS | Encounter Summary ---
Demographics + + + | Address | [address] | | | [place] [address] | + + + | Home Phone | | + + + | Preferred Language | Unknown | + + + | Marital Status | | + + + | Holiness Affiliation | Unknown | + + + | Race | White | + + + | Ethnic Group | Not or | + + + Author + + + | Author | [facility] | | | and [place] | + + + | Organization | [facility] | | | [...] + | Matthew Ramirez | ECON | [address] | | | | | [place] | | | | | [address] | | + + + + + Care Team Providers + +------+ + | Care Machine Feller Name | Role | Phone | + +------+ + | Ashly Rojo PA-C | PCP | | + +------+ + Encounter Details +--------+ + + + + | Date | Type | Department | Care Team | Description | +--------+ + + + + | 12/31/ | Imaging | [facility] | Provider, | | | 2019 | Exam | MED CTR EXTERNAL | MD [address] | | | | | IMAGING [address] | | | | | [address] [place] | [place] [address] | | | | | [place] [address] | | | | | | [phone] | | | +--------+ + + + [...] | + +--------+ + + + | CT ABDOMEN PELVIS W | Routin | 08/05/2018 | | Results for this | | CONTRAST | e | 12:00 AM | | procedure are in the | | | | PDT | | results section. | + +--------+ + + + documented in this encounter Results CT Abdomen Pelvis w Contrast (08/05/2018 12:00 AM PDT) + + | Specimen | + + | | + + + + + | Narrative | Performed At | + + + | External films for comparison only | [facility] | | | | | No results will be in the chart. | | + + + + +---------+ + + | Performing | Address | City/State/Zipcode | Phone Number | | Organization | | | | + +---------+ + + | [facility] | | | | + +---------+ + + documented in this encounter Visit Diagnoses Not on filedocumented in this encounter"
--- OUTSIDE RECORDS SUMMARY | ~2020-02-10 | XMS | Encounter Summary ---
Demographics + + + | Address | [address] | | | [place] [address] | + + + | Home Phone | | + + + | Preferred Language | Unknown | + + + | Marital Status | | + + + | Nondenominational Affiliation | NRP | + + + | Race | White | + + + | Ethnic Group | Not or | + + + Author + + + | Author | [facility] | + + + | Organization | [facility] | + + + | Address | Unknown | + + + | Phone | Unavailable | + + + Support + + +---------+ + | Name | Relationship | Address | Phone | + + +---------+ + | Nella Haque | ECON | Unknown | | + + +---------+ + Care Team Providers + +------+ + | Care Internet Marketing Analyst Name | Role | Phone | + +------+ + | Lnog Copeland MD | PCP | | + +------+ + Reason for Visit +--------+--------+ + | Reason | Onset | Comments | | | Date | | +--------+--------+ + | Other | 01/18/ | | | | 2020 | | +--------+--------+ + Encounter Details +--------+ + + + + | Date | Type | Department | Care Team | Description | +--------+ + + + + | 01/18/ | Telephone | [facility] | Rodriguez Bower MD | Other | | 2019 | | Clinics at S | [address] | | | | | [place] [address] | [place], [place] | | | | | [address] for | [address] | | | | | [facility], | [phone] | | | | | [facility] | | | | | | [place], [place] | | | | | | [address] | | | | | | [phone] | | | +--------+ + + + [...] + + documented as of this encounter Miscellaneous Notes Telephone Encounter - Lizet Carbone - 01/21/2020 12:34 PM PDTPt's daughter calling in trisha galvez to know what is going on with PET scan results. PAS advise imaging is still pending to be received from [place].The longer the wait to hear the results is making pt sicker. She a sks for this to be taken care of today, pt can't go another weekend without not knowing anyt dewey. Another note- please make sure to call pt for all appts. Pt is 79 years old and can't do a nything virtual or online. e lephone Encounter - Sherry Ramirez, RN - 01/19/2020 9:00 AM PDTCall to pt to notify her matilda t images are being requested and provider or [facility] will follow up with her once available. --> Yellow TC: please request recent PET images from [facility] in [place]. elephone Encounter - HéctorCourtney candelario - 01/19/2020 8:21 AM PDTPatient calling in stating she had her PET sc an ordered by Dr. Bower last week on locally and has not heard any results. Patient is aware that the holiday may have dealyed the results but she would like a call as soon as possible. She will be avalble today until 1pm and then again after 4pm. Pt stated ok to leave voice mail. Routing to YASMEEN/ Tdocumented in this encounter Plan of Treatment +--------+ + + + + | Date | Type | Specialty | Care Team | Description | +--------+ + + + + | 05/08/ | Telephone-S | Hematology & | Rodriguez Bower MD | | 2019 | cheduled | Oncology | [address] | | | | | | [place], [place] | | | | | | [address] | | | | | | [phone] | | | | | | | | +--------+ + + + + documented as of this encounter Visit Diagnoses Not on filedocumented in this encounter"
--- OUTSIDE RECORDS SUMMARY | ~2020-02-10 | XMS | Encounter Summary ---
Demographics + + + | Address | [address] | | | [place] [address] | + + + | Home Phone | | + + + | Preferred Language | Unknown | + + + | Marital Status | | + + + | Mormon Affiliation | NRP | + + + [...] Team Providers + +------+ + | Care Superintendent Sales Name | Role | Phone | + +------+ + | Long Copeland MD | PCP | | + +------+ + Encounter Details +--------+--------+ + + + | Date | Type | Department | Care Team | Description | +--------+--------+ + + + | 03/18/ | Travel | | | | | 2019 | | | | | +--------+--------+ + [...] as of this encounter Plan of Treatment +--------+ + + + + | Date | Type | Specialty | Care Team | Description | +--------+ + + + + | 05/08/ | Telephone-S | Hematology & | Rodriguez Bower MD | | | 2020 | cheduled | Oncology | [address] | | | | | | [place], [place] | | | | | | [address] | | | | | | [phone] | | | | | | | | +--------+ + + + + documented as of this encounter Visit Diagnoses Not on filedocumented in this encounter"
--- OUTSIDE RECORDS SUMMARY | ~2020-02-10 | XMS | Encounter Summary ---
Demographics + + + | Address | [address] | | | [place] [address] | + + + | Home Phone | | + + + | Preferred Language | Unknown | + + + | Marital Status | | + + + | Yarsani Affiliation | Unknown | + + + | Race | White | + + + | Ethnic Group | Not or | + + + Author + + + | Author | [facility] | | | and [place] | + + + | Organization | [facility] | | | [...] + | Matthew Ramirez | ECON | [address] | | | | | [place] | | | | | [address] | | + + + + + Care Team Providers + +------+ + | Care Courtesy Booth Cashier Name | Role | Phone | + [...] | | | | Diagnoses | | Elva, | | | | | Disease of | | MD Christopher | | | | | stomach | | [address] | | | | | Disease of | | [address] | | | | | stomach | | [place] | | | | | [K31.9] | | [address] Phone: | | | | | Procedures | | [phone] | | | | | [place] | | Fax: | | | | | ESOPHAGOGAST | | [phone] | | | | | RODUODENOSCO | | | | | | | PY TRANSORAL | | | | | | | DIAGNOSTIC | | | | | | | UT EDG US | | | | | | | EXAM | | | | | | | SURGICAL | | | | | | | ALTER STOM | | | | | | | DUODENUM/JEJ | | | | | | | UNUM | | | | | | | ENDOSCOPIC | | | | | | | ULTRASOUND, | | | | | | | EGD EGD | | | +--------+--------+ + + + + Encounter Details +--------+ + + + + | Date | Type | Department | Care Team | Description | +--------+ + + + + | 01/13/ | Anesthesia | [facility] | Hiren Streeter MD | | | 2019 | Event | [facility] | [address] | | | | | INTRA OP [address] | [place] [address] | | | | | [place] | [phone] | | | | | [address] | | | | | | [phone] | | | +--------+ + + + + Anesthesia Record + + + + + | Procedure Name | Responsible | Anesthesia Start | Anesthesia Stop Time | | | Anesthesiologist | Time | | + + + + + | ENDOSCOPIC | Hiren Streeter MD | 01/13/19 1208 | 01/13/19 1253 | | ULTRASOUND, EGD (N/A | | | | | ) | | | | + + + + + +----+---+ + + | Da | T | Event | Comment | | te | i | | | | | m | | | | | e | | | +----+---+ + + | 09 | 0 | | | | /0 | 9 | | | | 4/ | 5 | | | | 20 | 3 | | | | 19 | | | | +----+---+ + + | | 1 | An Checkout | Pre-use anesthesia machine/equipment checkout. | | | 2 | | | | | 0 | | | | | 8 | | | +----+---+ + + | | 1 | An Start | Reassessment prior to anesthesia induction/procedure. | | | 2 | | | | | 0 | | | | | 8 | | | +----+---+ + + | | 1 | AN Bite | | | | 2 | Block | | | | 1 | | | | | 4 | | | +----+---+ + + | | 1 | An | | | | 2 | Induction | | | | 1 | | | | | 4 | | | +----+---+ + + | | 1 | Pre-Procedu | | | | 2 | ral Timeout | | | | 1 | Completed | | | | 7 | | | +----+---+ + + | | 1 | AN | Per surgeon request | | | 2 | Antibiotic | | | | 1 | declined | | | | 7 | | | +----+---+ + + | | 1 | First | | | | 2 | Inc/Proc St | | | | 1 | | | | | 8 | | | +----+---+ + + | | 1 | Moving | | | | 2 | Purposefull | | | | 4 | y | | | | 7 | | | +----+---+ + + | | 1 | An Stop | Patient handed off to recovery nurse. VSS and rampart airway | | | 2 | | patent on RA. Report given and all questions answered. Patient | | | 5 | | alert, oriented and resting comfortably at this time. | | | 3 | | | +----+---+ + + +------+ | Meds | +------+ + + + | Name | Total | + + + | lidocaine 2% | 100 mg | + + + | propofol | 50 mg | + + + | propofol | 374.54 mg | + + + | lactated ringers (LR) infusion | 0 mL | + + + + + | Name | + + | N2O Flow Rate (L/Min) | + + | O2 Flow Rate (L/Min) | + + | Insp O2 | + + | Exp N2O | + + | Air Flow Rate (L/Min) | + + | Secondary O2 Flow Rate | + + + + | No blood administrations on file. | + + +--------+ + + + | Type | Details | Placement | Removal | +--------+ + + + | Periph | 01/13/19; 1016; Right; Forearm; | 01/13/19 1016 by | 01/13/19 1323 by | | eral | [id number] catheter system; | Jacklyn Gore RN | Rosie Burgos RN | | IV | 20 gauge; 1; R forearm; | | | | | distraction, intradermal | | | | | injection, tolerated well, | | | | | appears comfortable; 01/13/19; | | | | | 1323 | | | +--------+ + + + [...] + + documented as of this encounter OR Notes Anesthesia Postprocedure Evaluation - Hiren Streeter MD - 01/13/2019 1:22 PM PDT ANESTHESIA POSTANESTHESIA EVALUATION Ashly Ramirez 78 y.o. female 1940 [id number] Procedure(s) ENDOSCOPIC ULTRASOUND, EGD (N/A ) EGD (N/A Mouth) Cooperates? Yes Mental Status Performs simple tasks. Respiratory Satisfactory - Airway patent (self maintained). Cardiovascular Satisfactory - Blood pressure and heart rate acceptable Temperature Satisfactory Pain Satisfactory N/V Control Satisfactory Hydration Satisfactory - No signs of dehydration Vitals Value Taken Time Temp 36.6 C (97.8 F) 01/13/2019 12:51 Pulse 70 01/13/2019 13:18 Resp 16 01/13/2019 13:18 BP 148/54 01/13/2019 13:18 Arterial Line BP Arterial Line BP 2 SpO2 97 % 01/13/2019 13:18 Electronically signed by Hiren Streeter MD 01/13/2019 13:22 [facility] nesthesia Preprocedure Evaluation - Hiren Streeter MD - 01/13/2019 9:43 AM PDTFormat ting of this note might be different from the original. ANESTHESIA PREANESTHESIA EVALUATION Ashly Ramirez 78 y.o. female 1940 [id number] Procedure(s): ENDOSCOPIC ULTRASOUND, EGD (N/A ) EGD (N/A Mouth) Medical,anesthesia, drug, allergy histories reviewed, NPO status verified. ECG reviewed. Labs reviewed. . Review of Systems / Med History Anesthesia History No anesthesia complications except where noted below. Cardiovascular , Exercise tolerance <4 METS(+) history of heart murmur (mitral) (+) hypert ension, (-) dysrhythmias (occasional palpitations): (-) congestive heart failure. (-) vásquez ry artery disease. (+) valvular problems/murmurs : MR . . Pulmonary (+) shortness of breath, pneumonia, Chronic Obstructive Pulmonary Disease. (+) asthma. (+) tobacco use. (+) ex-smoker. Gastrointestinal/Hepatic (+) hypercholesterolemia, diverticulitis.(-) jaundice. (+) acid reflux. (+) no hepatitis Renal Negative except where noted below. Endocrine (+) hypothyroidism. Neuromuscular (+) arthritis, chronic pain, fibromyalgia.(-) TIA, CVA. (-) seizures. Psychology (+) psychiatric history of anxiety. Physical Exam Airway MP III, CV Rhythm regular. (-) murmur. Pulm Clear to auscultation bilaterally. Anesthesia Plan ASA 2 Type: MAC. Induction: Intravenous. Potential problems: None anticipated. Monitors: Standard ASA monitors. Consent statement: . Consenting person understands and agrees to proceed . I discussed general anesthesia and the risks of general anesthesia with the patient. The risk discussion included but was not limited to cardiac complications, pulmonary compl ications, life threatening reactions, nausea and vomiting, sore throat and cough. The patient acknowledges the risks and agrees to proceed. All questions were answered.. Electronically Signed by: Hiren Streeter MD ESig date/time: 01/13/2019 9:43 documented in this encou nter Miscellaneous Notes Anesthesia Post-op Handoff - Barbara Gallegos CRNA - 01/13/2019 12:55 PM PDTFormatting of th is note might be different from the original. ANESTHESIA HANDOFF NOTE Ashly Ramirez 78 y.o. female 1940 [id number] The following were completed during the transfer of care: 1. Identification of patient 2. Identification of responsible practitioner (primary service) 3. Discussion of pertinent medical history 4. Discussion of the surgical/procedure course (procedure, reason for surgery, procedure pe rformed) 5. Intraoperative anesthetic management and issues/concerns 6. Expectations/plans for the early post-procedure period 7. Opportunity for questions and acknowledgement of understanding of report from receiving team ENDOSCOPIC ULTRASOUND, EGD (N/A ) EGD (N/A Mouth) Patient Location: Phase II Handoff Protocol Used: post-procedure handoff checklist completed Condition: alert and awake Airway/O2: no supplemental O2 The significant anesthesia concerns and VS in Epic were reviewed with the receiving team. Barbara Gallegos CRNA 01/13/2019 12:55 [facility] 1 2:56 PM PDTdocumented in this encounter Plan of Treatment Not on filedocumented as of this encounter Visit Diagnoses Not on filedocumented in this encounter Administered Medications + +--------+ +--------+------+------+ | Medication Order | MAR | Action | Dose | Rate | Site | | | Action | Date | | | | + +--------+ +--------+------+------+ | lidocaine (PF) 2% injection | Given | 01/14/20 | 100 mg | | | | Intravenous, PRN, Starting Wed | | 19 12:14 | | | | | 01/13/19 at 1214, Anesthesia | | PM PDT | | | | | Intra-op | | | | | | + +--------+ +--------+------+------+ +---+---+ | | | +---+---+ + +-------+ +-------+---+---+ | propofol (DIPRIVAN) injection | Given | 01/14/20 | 50 mg | | | | Intravenous, PRN, Starting Wed | | 19 12:14 | | | | | 01/13/19 at 1214, Anesthesia | | PM PDT | | | | | Intra-op | | | | | | + +-------+ +-------+---+---+ +---+---+ | | | +---+---+ + + + + +-------+---+ | propofol (DIPRIVAN) injection | Rate/Dos | 01/14/20 | 150 | 77.5 | | | Intravenous, CONTINUOUS PRN, | e Change | 19 12:23 | mcg/kg/m | mL/hr | | | Starting 01/13/19 at 1214, | | PM PDT | in | | | | Anesthesia Intra-op | | | | | | + + + + +-------+---+ +---------+ + +--------+---+ | New Bag | 01/14/20 | 200 | 103.3 | | | | 19 12:14 | mcg/kg/m | mL/hr | | | | PM PDT | in | | | +---------+ + +--------+---+ +---+---+ | | | +---+---+ documented in this encounter"
--- OUTSIDE RECORDS SUMMARY | ~2020-02-10 | XMS | Encounter Summary ---
Demographics + + + | Address | [address] | | | [place] [address] | + + + | Home Phone | | + + + | Preferred Language | Unknown | + + + | Marital Status | | + + + | Advent Affiliation | NRP | + + + | Race | White | + + + | Ethnic Group | Not or | + + + Author + + + | Author | [facility] | + + + | Organization | [facility] | + + + | Address | Unknown | + + + | Phone | Unavailable | + + + Support + + +---------+ + | Name | Relationship | Address | Phone | + + +---------+ + | Nella Haque | ECON | Unknown | | + + +---------+ + Care Team Providers + +------+ + | Care Vulcanizer Rubber Plate Name | Role | Phone | + +------+ + | Long Copeland MD | PCP | | + +------+ + Reason for Visit + +--------+ + | Reason | Onset | Comments | | | Date | | + +--------+ + | Refill Request | 06/23/ | Tamoxifen | | | 2020 | | + +--------+ + Encounter Details +--------+--------+ + + + | Date | Type | Department | Care Team | Description | +--------+--------+ + + + | 06/23/ | Refill | [facility] | Rodriguez Bower MD | Refill Request | | 2020 | | [facility]ics at S | [address] | (Tamoxifen) | | | | [place] [address] | [facility] [place] | | | | | [facility] for | [address] | | | | | Health and Healing, | [phone] | | | | | [address] | | | | | | [place], [place] | | | | | | [address] | | | | | | [phone] | | | +--------+--------+ + + + [...] this encounter Miscellaneous Notes Telephone Encounter - Larissa Colón PharmD - 06/24/2019 10:20 AM PSTPharmacy Document ation Oral Chemotherapy - Refill Request:: 10 Minutes Spent Medication: tamoxifen 20 mg once daily Assessment/Plan: After review of patient's chart, it appears the refill request is appropriate for this kelle ent. Medication, pending approval, requires a change to the prescription: pharmacy requesting 90 day supply. Will increase to 6 month supply and route to schedulers for appt, due ~September 2019 . Clinical Review: Drug interactions: Drug interactions identified using Collaaj resource. duloxetine may dec rease metabolism of tamoxifen to enodoxifen, but is not a strong CYP2D6 inhibitor Lab parameters: appropriate Toxicity review: No issues reported by patient. Supportive Care: No supportive care medications needed. Refill Review: Pharmacy: Opted to continue filling at their local pharmacy. elephone Encoun ter - Preeti Edmondson MA - 06/24/2019 10:17 AM PSTFormatting of this note might be differ ent from the original. Last appointment with Rodriguez Bower MD was on 03/18/19. Next appointment with Rodriguez Bower MD is scheduled on NO FUTURE APPOINTMENTS. Last LIP progress note reviewed. Is there documentation to indicate that medication being r equested has been changed or discontinued? No Allergy list reviewed--Is the medication being requested on the patient's current allergy l ist? No Previous Prescription Details copied below: Date and Time Department Ordering/Authorizing 03/19/2019 12:50 PM Hematology/Medical Oncology at [facility] Ramona Taylor MD Outpatient Medication Detail Disp Refills tamoxifen 20 mg oral tablet 30 tablet 5 Sig: Take 1 tablet by mouth once daily. Indications: Hormone Receptor Positive Breast Cance r Sent to pharmacy as: tamoxifen 20 mg tablet (NOLVADEX) Class: eRx Route: oral Order: [id number] E-Prescribing Status: Receipt confirmed by pharmacy (03/19/2019 12:50 PM PST) Routing to clinical pharmacists for review of oral antineoplastic agents. elephone Encounter - Jeanette Isbell - 06/23/2019 3:30 PM PSTRx Refill: Routing encounter to GUSTABO costello for theo waters. Pharmacy Name: [facility] Phone #: [phone] -->GUSTABO : Please review prescription refill request. Thank you. documented in this encounte r Plan of Treatment +--------+ + + + + | Date | Type | Specialty | Care Team | Description | +--------+ + + + + | 05/08/ | Telephone-S | Hematology & | Rodriguez Bower MD | | | 2020 | cheduled | Oncology | [address] | | | | | | [place], [place] | | | | | | [address] | | | | | | [phone] | | | | | | | | +--------+ + + + + documented as of this encounter Visit Diagnoses Not on filedocumented in this encounter"
--- OUTSIDE RECORDS SUMMARY | ~2020-02-10 | XMS | Encounter Summary ---
Demographics + + + | Address | [address] | | | [place] [address] | + + + | Home Phone | | + + + | Preferred Language | Unknown | + + + | Marital Status | | + + + | Baptist Affiliation | NRP | + + + | Race | White | + + + | Ethnic Group | Not or | + + + Author + + + | Author | [facility] | + + + | Organization | [facility] | + + + | Address | Unknown | + + + | Phone | Unavailable | + + + Support + + +---------+ + | Name | Relationship | Address | Phone | + + +---------+ + | Nella Haque | ECON | Unknown | | + + +---------+ + Care Team Providers + +------+ + | Care Transcription Specialist Name | Role | Phone | + +------+ + | Long Copeland MD | PCP | | + +------+ + Reason for Referral Diagnostic Testing (Routine) +--------+--------+ + + + + | Status | Reason | Specialty | Diagnoses / | Referred By | Referred To | | | | | Procedures | Contact | Contact | +--------+--------+ + + + + | Closed | | Radiology | Diagnoses | Cristel Galicia | | | | | | Tumor | MD [address] | | | | | | Gastric | [address] | | | | | | adenocarcino | [place], | | | | | | ma [facility] | [place] | | | | | | Procedures | [address] | | | | | | PET CT SKULL | Phone: | | | | | | B[facility] | [phone] | | | | | | [place] | Fax: | | | | | | | [phone] | | +--------+--------+ + + + + Reason for Visit Consultation (Routine) +--------+--------+ + + + + | Status | Reason | Specialty | Diagnoses / | Referred By | Referred To | | | | | Procedures | Contact | Contact | +--------+--------+ + + + + | Closed | | Surgical | | | Cristel Galicia | | | | Oncology | | Beverley Antony MD [address] | | | | | | [address] | [address] | | | | | | [address] | [place], [place] | | | | | | [address] | [address] | | | | | | [place], | Phone: | | | | | | [place] [address] | [phone] | | | | | | Phone: | Fax: | | | | | | [phone] | [phone] | | | | | | Fax: | | | | | | | [phone] | | +--------+--------+ + + + + Encounter Details +--------+---------+ + + + | Date | Type | Department | Care Team | Description | +--------+---------+ + + + | 02/03/ | Office | Surgical Oncology | Cristel Galicia MD | Gastric | | 2019 | Visit | at [facility] [address] | [address] | adenocarcinoma (HCC) | | | | e Center for | [place], [place] | (Primary Dx); Tumor | | | | Health and Healing, | [address] | | | | | [address] | [phone] | | | | | [place], [place] | | | | | | [address] | | | | | | [phone] | | | +--------+---------+ + + + [...] obtain PET scan at local facility in [place]. Please contact Nelli Vaca, Nurse Coordinator for Dr. Cristel Galicia, with any questions at . We encourage all of our patients to sign up and use YesPlz! for communication . Please note: I am out of the office on Mondays and unable to monitor voicemail or email. If you need to get ahold of someone urgently, please call [phone]. documented in this encounter Progress Notes Cristel Galicia MD - 02/03/2019 9:00 AM PDTATTENDING PHYSICIAN STATEMENT AND SUMMARY This note has been dictated using StartBull voice recognition software. I saw Ashly Ramirez [...] will byrnes ve her set up in [facility], I will discuss her case when these results are avai lable in our multidisciplinary GI tumor board, and then contact the patient and [facility] with any treatment recommendations. RECOMMENDATIONS 1. PET CT scan to be ordered and performed in [facility]. 2. We will discuss her case [...] o their satisfaction. Cristel Galicia MD, MPH candy counter clerk Division of Surgical Oncology [facility] [place], [place] Desmond Frank MD - 9:00 AM PDT 02/03/2019 Surgical Oncology Clinic New Patient Consultation--Gastric Cancer Referring Physician: Dr. Luis Antony Reason for consultation: Newly diagnosed gastric adenocarcinoma (This note is structured to facilitate communication among oncology providers) PLAN TODAY: 1. Return to clinic after discussion at tumor board. 2. Return to [facility] for EGD with biopsies for disease surveillance 3. Will need a PET/CT scan 4. Will present case and discuss in upcoming Multi-Disciplinary Tumor board and contact pat ient with recommendations. 5. Solid tumor Gene Trails 6. Follow up [facility] path review of outside records [...] colectomy for diverticular di sease (2002) and [facility] for cervical cancer (1973), who underwent a [...] gastric adeno carcinoma. She subsequently went to [place] and underwent and EUS with Dr. Stevenson [...] and hematochezia. She is here today from [place] with her daughter who is medical POA [...] of bladder for frequent UTIs Bladder suspension 2006 Lynx retropubic sling Colporrhaphy 2006 posterior repair, [...] mouth three times daily., Disp: , Rfl: Yhzeqrnpuzq-Shwuwjwbi-Roc C-Mn (GLUCOSAMINE CHONDROITIN MAXSTR) 500-400 mg Oral [...] , Rfl: triamcinolone 55 mcg Nasal Aerosol, Harvey, Instill 2 Sprays into each nostril once [...] the lamina propria and muscularis propria/ submuc tmimy in four of five biopsy fragments. 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 Currently, she is functionally good allowing [...] Ramirez case will be discussed at the [facility] Multidisciplinary Gastrointestinal Cancer Conference which [...] individualized evelia tment. Desmond Voss MD R1 [facility] General Surgery documented in this enc ounter Plan of Treatment +--------+ + + + + | Date | Type | Specialty | Care Team | Description | +--------+ + + + + | 05/08/ | Telephone-S | Hematology & | Rodriguez Bower MD | | | 2019 | cheduled | Oncology | [address] | | | | | | [place], [place] | | | | | | [address] | | | | | | [phone] | | | | | | | | +--------+ + + + + + +---------+--------+ + + | Name | [...] + | | | + + + [facility] COMPREHENSIVE SOLID TUMOR PANEL (01/13/2019 12:45 PM PDT) + + + + + + | Component | Value | Ref Range | Performed | Pathologist | | | | | At | Signature | + + + + + + | [facility] | Specimen insufficient | | [facility] | | | COMPREHENSI | for testing. | | DIAGNOSTIC | | | VE SOLID | | | | | | TUMOR PANEL | | | LABORATORIE | | | | | | S | | + + + + + + | SAMPLE | Outside sample no. | | [facility] | | | TESTED | [id number] E1 labeled as | | DIAGNOSTIC | | | | gastric body at lesser | | | | | | curvature | | LABORATORIE | | | | | | S | | + + + + + + | INTERPRETAT | Reported diagnosis: | | [facility] | | | ION | AdenocarcinomaInsufficie | [...] | | | | | | is member service representative of | | | | | | this tumor, we would | | | | | | welcome the opportunity | | | | | | to examine it. | | | | + + + + + + | DISCLAIMER | This test was developed | | [facility] | | | | and its performance | | DIAGNOSTIC | | | | characteristics | | | | | | determined by the [facility] | | LABORATORIE | | | | [facility] | | S | | | [...] | | | | | (CLIA). The [facility] | | | | | | Diagnostics | | | | | | Laboratories are fully | | | | | | licensed by the state of | | | | | | [place] under CLIA and | | | | | | are accredited by the | | | | | | [employer] | | | | | | [employer] ([employer]). | | | | | | Crook Operator: | | | | | | [place], | | | | | | [place], [...] + + + + | [facility] | [address] | [place] [address] | | | DIAGNOSTIC | [address] [...]
--- OUTSIDE RECORDS SUMMARY | ~2020-02-10 | XMS | Clinical Summary ---
Demographics + + + | Address | [address] | | | [place] [address] | + + + | Home Phone | | + + + | Preferred Language | Unknown | + + + | Marital Status | | + + + | Yazdanism Affiliation | Unknown | + + + | Race | White | + + + | Ethnic Group | Not or | + + + Author + + + | Author | [facility] | | | and [place] | + + + | Organization | [facility] | | | and [...] + | Matthew Ramirez | ECON | [address] | | | | | [place] | | | | | [address] | | + + + + + Care Team Providers + +------+ + | Care Lumber Material Handler Name | Role | Phone | + +------+ + | Ashly Rojo PA-C | PCP | | + +------+ + Allergies + + + + + + | Active Allergy | Reactions | Severity | Noted | Comments | | | | | Date | | + + + + + + | Codeine Sulfate | Hallucination | Medium | | | + + + + + + | Pollen Extract | Other (See | Low | 01/09/20 | Runny nose, | | | Comments), Cough | | 19 | horseness | + + + + + + | Sulfa Antibiotics | Swelling | High | | Lip swelling | + + + + + + Medications + + + +---------+------+------+-------+ | Medication | Sig | Dispensed | Refills | Star | End | Statu | | | | | | t | Date | s | | | | | | Date | | | + + + +---------+------+------+-------+ | vitamin B-12 | Take 1,000 mcg by | | 0 | 09/1 | | Activ | | (CYANOCOBALAMIN) | mouth Daily. | | | 3/20 | | e | | 1000 MCG tablet | | | | 12 | | | + + + +---------+------+------+-------+ | cholecalciferol | Take 1,000 Units by | | 0 | 09/1 | | Activ | | (VITAMIN D-3) 1000 | mouth Daily. | | | 320 | | e | | UNITS TABS | | | | 12 | | | + + + +---------+------+------+-------+ | levothyroxine | Take 112 mcg by | | 0 | 09/1 | | Activ | | (SYNTHROID, | mouth Daily. | | | 3/20 | | e | | LEVOTHROID) 112 mcg | | | | 12 | | | | tablet | | | | | | | + + + +---------+------+------+-------+ | Ascorbic Acid | Take 1,000 mg by | | 0 | 09/1 | | Activ | | (VITAMIN C) 1000 MG | mouth Daily. | | | 3/20 | | e | | tablet | | | | 12 | | | + + + +---------+------+------+-------+ | ALPRAZolam (XANAX) | Take 0.25 mg by | | 0 | 09/1 | | Activ | | 0.25 mg tablet | mouth as needed. | | | 3/20 | | e | | | | | | 12 | | | + + + +---------+------+------+-------+ | DULoxetine | Take 60 mg by mouth | | 0 | 10/0 | | Activ | | (CYMBALTA) [address] | Daily. | | | 6/20 | | e | | capsule | | | | 17 | | | + + + +---------+------+------+-------+ | lisinopril | Take 20 mg by mouth | | 0 | | | Activ | | (PRINIVIL, ZESTRIL) | Daily. | | | | | e | | 20 mg tablet | | | | | | | + + + +---------+------+------+-------+ | acetaminophen | Take 650 mg by mouth | | 0 | | | Activ | | (TYLENOL 8 HOUR | every 8 hours as | | | | | e | | ARTHRITIS PAIN) 650 | needed for Pain. | | | | | | | MG CR tablet | | | | | | | + + + +---------+------+------+-------+ | Cinnamon 500 MG | Take 500 mg by mouth | | 0 | | | Activ | | CAPS | Daily. | | | | | e | + + + +---------+------+------+-------+ | fish oil 1,000 mg | Take 1,000 mg by | | 0 | | | Activ | | capsule | mouth Daily. | | | | | e | + + + +---------+------+------+-------+ | albuterol (PROAIR | Inhale 2 puffs into | | 0 | | | Activ | | HFA) 90 mcg/puff | the lungs EVERY 4 TO | | | | | e | | inhaler | 6 HOURS NEEDED | | | | | | | | for Wheezing. | | | | | | + + + +---------+------+------+-------+ | doxepin (SINEQUAN) | Take 75 mg by mouth | | 0 | | | Activ | | 75 MG capsule | nightly. | | | | | e | + + + +---------+------+------+-------+ | DULoxetine | Take 30 mg by mouth | | 0 | | | Activ | | (CYMBALTA) [address] | Daily. | | | | | e | | capsule | | | | | | | + + + +---------+------+------+-------+ | Calcium | Take 2 tablets by | | 0 | | | Activ | | Carb-Cholecalciferol | mouth Daily. | | | | | e | | 600-200 MG-UNIT | | | | | | | | TABS | | | | | | | + + + +---------+------+------+-------+ | fluticasone | 4 sprays by Nasal | | 0 | | | Activ | | (FLONASE) 50 | route every evening. | | | | | e | | mcg/nasal spray | 2 sprays each | | | | | | | | nostril once a day | | | | | | | | every evening | | | | | | + + + +---------+------+------+-------+ | | Inhale 1 puff into | | 0 | | | Activ | | fluticasone-salmeter | the lungs every | | | | | e | | ol (ADVAIR, WIXELA | morning. Advair | | | | | | | INHUB) 250-50 | Diskus 250 mcg-50 | | | | | | | mcg/puff diskus | mcg/dose powder for | | | | | | | inhaler | inhalation 1 puff in | | | | | | | | am 1 puff in PM if | | | | | | | | needed | | | | | | + + + +---------+------+------+-------+ | | Inhale 1 puff into | | 0 | | | Activ | | fluticasone-salmeter | the lungs Daily as | | | | | e | | ol (ADVAIR, WIXELA | needed (in evening | | | | | | | INHUB) 250-50 | if needed in | | | | | | | mcg/puff diskus | addition to the | | | | | | | [...] | needed | | | | | | + + + +---------+------+------+-------+ | | Take 1 tablet by | | 0 | | | Activ | | oxyCODONE-acetaminop | mouth Twice daily | | | | | e | | hen (PERCOCET) 5-325 | as needed for Pain. | | | | | | | mg per tablet | | | | | | | + + + +---------+------+------+-------+ | VITAMIN E PO | Take 1 capsule by | | 0 | | | Activ | | | mouth Daily. | | | | | e | + + + +---------+------+------+-------+ | Cetirizine HCl (EQ | Take 2 tablets by | | 0 | | | Activ | | ALLERGY RELIEF, | mouth 2 times daily. | | | | | e | | CETIRIZINE, PO) | | | | | | | + + + +---------+------+------+-------+ | Probiotic Product | Take 1-2 capsules by | | 0 | | | Activ | | (PROBIOTIC DAILY PO) | mouth Daily. " | | | | | e | | | Perfect Biotic " | | | | | | + + + +---------+------+------+-------+ Active Problems + + + | Problem | Noted Date | + + + | Malignant neoplasm of overlapping sites of stomach | 01/07/2019 | + + + + + | Overview: ACTIVE DIAGNOSIS: Gastric adenocarcinoma.1. Sigmoid | | colectomy for diverticular disease in 2003.2. Screening | | colonoscopy in 2009 ([place]) notable for polyps.3. Chronic | | abdominal pain, evaluated by Dr. Julien Francisco in 2015. [place] | | [place], [place] notable for 3 tubular adenomas and | | one hyperplastic polyp.4. Repeat colonoscopy January 26, 2018 | | [place] notable for a tubular adenoma.5. Admit [facility], October 18, 2017 | | for partial small bowel obstruction. CT scan of abdomen/pelvis | | with contrast demonstrated small bowel obstruction. Symptoms | | resolved with conservative management.6. Presentation on July | | 2018 with abdominal pain, nausea and one episode of vomiting. | | CT abdomen/pelvis with contrast August 05, 2018 at [place] | | [facility] in [facility] demonstrated no acute inflammatory | | changes in the abdomen or pelvis.7. EGD/ Colonoscopy with random | | biopsies by Dr. Shukla, [facility] on December 17, 2018; Specimen # | | [id number] ([facility]). "A-Mucosa, stomach, | | biopsy-infiltrating gastric adenocarcinoma." Specimens | | B-duodenum, C-antrum, D-gastroesophageal junction, E-ascending | | colon, F-transverse colon, G-descending colon, and H, sigmoid | | colon were all negative for invasive malignancy.8. CT | | chest/abdomen/pelvis on December 31, 2018; No concerning gastric | | mass, no findings to suggest metastatic disease.9. Admit to [facility] | | on May 06, 2019 for small bowel obstruction, with laparotomy | | and extensive lysis of adhesions May 07, 2019 ([place]). | | Last Assessment & Plan: Ashly Ramirez is referred by | | [facility] [address] | | [id number] for evaluation and management of gastric adenocarcinoma.I | | met with Ashly and her daughter Nella, on 01/05/2019 at the | | [facility]. The patient's history | | includes chronic abdominal pain.Surgical history includes | | TEODORA/BSO for cervical cancer.Family history is notable for a | | daughter with breast cancer age 61, and a sister with bilateral | | breast cancer.Review of systems is notable for weight | | loss.Clinical exam is negative for sarcopenia.Laboratory exam is | | negative for anemia.Imaging is negative for metastatic | | disease.Assessment: gastric adenocarcinoma. Consider linitis | | plastica. Consider Brca-related biology.Plan; Case was discussed | | extensively with Dr. Shukla, who affirms that there was no | | evidence for gastric mass or ulcer and that the biopsy of the | | stomach was random. Dr. Shukla also reported that he discussed the | | pathological findings with Dr. Guevara Ernandez at [facility], who | | affirmed that the biopsy could be consistent with Linitis | | Plastica. Dr. Shukla agreed that the lack of endoscopic or | | radiographic findings is atypical and agreed that endoscopic | | ultrasound is indicated for further evaluation. Dr. Shukla' office | | will co-ordinate endoscopic ultrasound with [facility] | | Group in [place]. I will follow up with Ashly Ramirez after | | her next procedure to review the results and to establish a plan | | of management. | + + + + + | Rectal bleeding | 12/16/2018 | + + + + + | Overview: Added automatically from request for surgery | | [id number] | + + + + + | Diarrhea, unspecified type | 12/16/2018 | + + + + + | Overview: Added automatically from request for surgery | | [id number] | + + + + + | Chronic abdominal pain | 12/16/2018 | + + + + + | Overview: Added automatically from request for surgery | | [id number] | + + + + + | Benzodiazepine dependence | 12/16/2018 | + + + + + | Overview: Added automatically from request for surgery | | [id number] | + + + + + | Narcotic dependence, episodic use | 12/16/2018 | + + + + + | Overview: Added automatically from request for surgery | | [id number] | + + + + + | LUQ pain | 12/16/2018 | + + + + + | Overview: Added automatically from request for surgery | | [id number] | + + + + + | Alternating constipation and diarrhea | 12/16/2018 | + + + + + | Overview: Added automatically from request for surgery | | [id number] | + + + + + | Hematochezia | 12/16/2018 | + + + + + | Overview: Added automatically from request for surgery | | [id number] | + + + + + | Weight loss, unintentional | 12/16/2018 | + + + + + | Overview: Added automatically from request for surgery | | [id number] | + + + + + | Diverticular disease | 11/17/2018 | + + + | Abdominal pain | 11/17/2018 | + + + | History of colonic polyps | 01/08/2018 | + + + | COUGH | | + + + | SHORTNESS OF BREATH | | + + + | DYSPNEA ON EXERTION | | + + + | Acute reaction to stress | | + + + | H/O neoplasm of uncertain behavior of skin | | + + + | Primary localized osteoarthritis of left knee | | + + + | Complete intestinal obstruction, unspecified as to cause | | + + + | Mitral regurgitation | | + + + | Left lower quadrant pain | | + + + | IBS (irritable bowel syndrome) | | + + + | Hypothyroidism | | + + + | Fibromyalgia | | + + + | Dysfunction of left eustachian tube | | + + + | Vertigo | | + + + Immunizations + + + + | Name | Administration Dates | Next Due | + + + + | INFLUENZA 63 Y OR >, | 01/13/2018, 01/29/2017, 02/02/2016, | | | TRIVALENT HIGH-DOSE | 02/17/2015 | | + + + + | INFLUENZA TRIV | 03/01/2014, 01/26/2013, 01/28/2012, | | | W/PRES(PED/ADOL/ADUL | 03/12/2011 | | | T),MULTIDOSE | | | + + + + | INFLUENZA, [id number], | 04/29/2009 | | | UNSPECIFIED | | | + + + + | INFLUENZA, | 02/22/2010, 01/10/2009, 02/29/2008, | | | UNSPECIFIED | 02/17/2007 | | | FORMULATION | | | + + + + | TDAP, (ADOL/ADULT) | 07/28/2014 | | + + + + Family History + + +------+ + | Medical History | Relation | Name | Comments | + + +------+ + | Cancer | Brother | | throat cancer | + + +------+ + | Cancer | Daughter | | breast cancer | + + +------+ + | Other (see comment) | Father | | Multiple myeloma | + + +------+ + | Heart failure | Mother | | | + + +------+ + | Other (see comment) | Mother | | multiple myeloma | + + +------+ + | Breast cancer | Sister | | Both breast | + + +------+ + | Cancer | Sister | | Cervical | + + +------+ + + +------+ + + | Relation | Name | Status | Comments | + +------+ + + | Brother | | | | + +------+ + + | Daughter | | Alive | | + +------+ + + | Father | | | | | | | (Age | | | | | 68) | | + +------+ + + | Mother | | | | | | | (Age | | | | | 84) | | + +------+ + + | Sister | | Alive | | + +------+ + + Social History + +-------+ +--------+------+ | Tobacco Use | Types | Packs/Day | Years | Date | | | | | Used | | + +-------+ +--------+------+ | Former Smoker | | | | | + +-------+ +--------+------+ + +---+---+---+ | Smokeless Tobacco: | | | | | Never Used | | | | + +---+---+---+ + + | Tobacco Cessation: Counseling Given: No | | Comments: only smoked for 1 year [...] on file | | + + + Last Filed Vital Signs + + + + + | Vital Sign | Reading | Time Taken | Comments | + + + + + | Blood Pressure | 148/54 | 01/13/2019 1:18 PM | | | | | PDT | | + + + + + | Pulse | 70 | 01/13/2019 1:18 PM | | | | | PDT | | + + + + + | Temperature | 36.6 C (97.8 F) | 01/13/2019 12:51 PM | | | | | PDT | | + + + + + | Respiratory Rate | 16 | 01/13/2019 1:18 PM | | | | | PDT | | + + + + + | Oxygen Saturation | 97% | 01/13/2019 1:18 PM | | | | | PDT | | + + + + + | Inhaled Oxygen | - | - | | | Concentration | | | | + + + + + | Weight | 86.1 kg (189 lb 14.4 | 01/13/2019 10:14 AM | | | | oz) | PDT | | + + + + + | Height | 175.3 cm (5' 9") | 01/13/2019 10:14 AM | | | | | PDT | | + + + + + | Body Mass Index | 28.04 | 01/13/2019 10:14 AM | | | | | PDT | | + + + + + Plan of Treatment + + + + + | Health Maintenance | Due Date | Last | Comments | | | | Done | | + + + + + | Med Mgmt: TSH | | | | | | 9 | | | + + + + + | Med Mgmt: Vit D | | | | | | 9 | | | + + + + + | Medication | | | | | Management | 9 | | | + + + + + | Vaccine: | | | | | Pneumococcal 65+ (1 | 4 | | | | of 1 - PPSV23) | | | | + + + + + | Adult Annual | | | | | Wellness Visit | 5 | | | + + + + + | Med Mgmt: Cr | | 12/31/19 | | | | 0 | 19, | | | | | 12/31/19 | | | | | 19, | | | | | 08/05/19 | | | | | 19, | | | | | Addition | | | | | al | | | | | history | | | | | exists | | + + + + + | Med Mgmt: K | | 12/31/19 | | | | 0 | 19, | | | | | 12/31/19 | | | | | 19, | | | | | 08/05/19 | | | | | 19, | | | | | Addition | | | | | al | | | | | history | | | | | exists | | + + + + + | Med Mgmt: eGFR | | 12/31/19 | | | | 0 | 19, | | | | | 12/31/19 | | | | | 19, | | | | | 08/05/19 | | | | | 19, | | | | | Addition | | | | | al | | | | | history | | | | | exists | | + + + + + | Vaccine: Influenza | | 01/31/20 | | | (#1) | 0 | 19, | | | | | 01/14/20 | | | | | 18, | | | | | 01/30/20 | | | | | 17, | | | | | Addition | | | | | al | | | | | history | | | | | exists | | + + + + + | Vaccine: | | 07/29/19 | | | Dtap/Tdap/Td (2 - | 5 | 15 | | | Td) | | | | + + + + + | Vaccine: Zoster | Completed | 04/06/20 | | | | | 19, | | | | | 01/08/20 | | | | | 19 | | + + + + + Implants + +------+--------+ +--------+--------+--------+ | Implanted | Type | Area | Manufacture | Device | Shelf | Model | | | | | r | | Expira | / | | | | | | Identi | tion | Serial | | | | | | fier | Date | / Lot | + +------+--------+ +--------+--------+--------+ | .045 C-WireImplanted: Qty: 1 | | Left: | CONMED | | | [id number] | | on 07/04/2017 by Prakash, | | Toe | JOHN- [id number] | | | [id number] | | Jose Sanon DPM at [facility] | | | | | | /[id number] | | [facility] | | | | | | [id number] | | | | | | | | [id number] | | | | | | | | 249865 | | | | | | | | 608711 | | | | | | | | [id number] | | | | | | | | | | | | | | | | /[id number] | | | | | | | | 6 | + +------+--------+ +--------+--------+--------+ | .045 C-WireImplanted: Qty: 1 | | Left: | CONMED | | | [id number] | | on 07/04/2017 by Prakash, | | Toe | CONMED | | | [id number] | | Jose Sanon DPM at [facility] | | | JOHN. | | | /[id number] | | [facility] | | | | | | 826830 | | | | | | | | 467985 | | | | | | | | 910413 | | | | | | | | 899319 | | | | | | | | 082899 | | | | | | | | | | | | | | | | /[id number] | | | | | | | | 7 | + +------+--------+ +--------+--------+--------+ | .045 C-WireImplanted: Qty: 1 | | Left: | CONMED | | | [id number] | | on 07/04/2017 by Prakash, | | Toe | CONMED | | | [id number] | | Jose Sanon DPM at [facility] | | | JOHN. | | | /[id number] | | [facility] | | | | | | 995104 | | | | | | | | 421528 | | | | | | | | 145929 | | | | | | | | 792320 | | | | | | | | 213839 | | | | | | | | | | | | | | | | /80521 | | | | | | | | 6 | + +------+--------+ +--------+--------+--------+ | Pip DartImplanted: Qty: 1 on | | Right: | ARTHREX | | 06/11/ | AR-415 | | 02/13/2018 by Jose Randall | | Toe | ARTHREX | | 2021 | 5PS-30 | | JACKIE Sanon at [facility] | | | INC[employer] | | | 10 | | [facility] | | | | | | /+$$80 | | | | | | | | [id number] | | | | | | | | [phone] | | | | | | | | 77U | | | | | | | | /[id number] | | | | | | | | 817 | + +------+--------+ +--------+--------+--------+ | Pip Dart Implanted: Qty: 1 on | | Right: | ARTHREX | | 11/08/ | AR-415 | | 02/13/2018 by Prakash, | | Toe | ARTHREX | | 2022 | 4PS-30 | | Jose Sanon DPM at [facility] | | | INC[employer] | | | 10 | | [facility] | | | | | | /+$$80 | | | | | | | | [phone] | | | | | | | | [phone] | | | | | | | | 47$ | | | | | | | | /00373 | | | | | | | | 944 | + +------+--------+ +--------+--------+--------+ + +------+--------+ +--------+--------+--------+ | Explanted | Type | Area | Manufacture | Device | Shelf | Model | | | | | r | | Expira | / | | | | | | Identi | tion | Serial | | | | | | fier | Date | / Lot | + +------+--------+ +--------+--------+--------+ | Retrofusion Screw, 20 | | Right: | ARTHREX | | 03/11/ | | | MmImplanted: Qty: 1Explanted: | | Toe | ARTHREX | | 2020 | /[id number] | | Qty: 1 on 02/13/2018 at [facility] | | | INC. | | | [id number] | | [facility] | | | | | | [id number] | | | | | | | | 899022 | | | | | | | | 561743 | | | | | | | | 963153 | | | | | | | | 761 | | | | | | | | /26427 | | | | | | | | 761 | + +------+--------+ +--------+--------+--------+ + + | Description:3rd toe | + + Results Not on filefrom Last 3 Months Insurance + +--------+ +--------+ + +--------+ | Payer | Benefi | Subscriber | Effect | Phone | Address | Type | | | t Plan | ID | levy | | | | | | / | | Dates | | | | | | Group | | | | | | + +--------+ +--------+ + +--------+ | MEDICARE | MEDICA | [id number] | 10/11/19 | [phone] | | Medica | | | RE | | 04-Pre | 5 | | re | | | PART A | | sent | | | | | | AND B | | | | | | + +--------+ +--------+ + +--------+ | MODA | MODA | [id number] | 05/12/19 | [phone] | [address] | Indemn | | | HEALTH | | 17-Pre | 9 | [phone] | ity | | | MDCR | | sent | | [facility], | | | | [place] | | | | [place] [address] | | + +--------+ +--------+ + +--------+ | MEDICARE | MEDICA | [id number] | 10/11/19 | [phone] | | Medica | | | RE | | 04-Pre | 5 | | re | | | PART A | | sent | | | | | | AND B | | | | | | + +--------+ +--------+ + +--------+ | MODA | MODA | [id number] | 05/12/19 | [id number] | [address] | Indemn | | | HEALTH | | 19-Pre | 9 | [phone] | ity | | | MDCR | | sent | | [place], | | | | [place] | | | | [place] [address] | | + +--------+ +--------+ + +--------+ + +--------+ +--------+ + + | Guarantor Name | Accoun | Relation to | Date | Phone | Billing Address | | | t Type | Patient | of | | | | | | | | | | + +--------+ +--------+ + + | Ashly Ramirez | Person | Self | [birth year] | [address] | | | al/Fam | | [phone] | [phone] | [place] | | | [place] | | | 9 (Home) | [address] | + +--------+ +--------+ + + | Ashly Ramirez | Person | Self | [birth year] | [address] | | | al/Fam | | 1941 | [phone] | [place] | | | amrik | | | 9 ([place]) | [address] | + +--------+ +--------+ + + Advance Directives + + + + + | Type | Date Recorded | Patient | Explanation | | | | Offc Spec | | + + + + + | Power of | | | | | Spanish Interpreter | | | | + + + + + | Advance | 03/06/2017 | | | | Directive | 9:34 AM | | | + + + + + + + + + + | Code Status | Date | Date | Comments | | | Activated | Inactivated | | + + + + + | Full Code | 02/13/2018 | 02/15/2018 | | | | 2:57 PM | 3:17 AM | | + + + + + + + + +---+ | | | | | + + + +---+ | Full Code | 07/04/2017 | 07/04/2017 | | | | 10:41 AM | 2:49 PM | | + + + +---+ + + + +---+ | | | | | + + + +---+ | Full Code | 03/06/2017 | 03/06/2017 | | | | 12:46 PM | 4:35 PM | | + + + +---+
--- OUTSIDE RECORDS SUMMARY | ~2020-02-10 | XMS | Encounter Summary ---
Demographics + + + | Address | [address] | | | [place] [address] | + + + | Home Phone [...] Team Providers + +------+ + | Care Garage Helper Name | Role | Phone | + [...] [place] | | | | | | [place], [place] | | | | | | [address] | | | | | | [phone] | | | | | | | | +--------+ + + + + documented as of this encounter Visit Diagnoses Not on filedocumented in this encounter"
--- OUTSIDE RECORDS SUMMARY | ~2020-02-10 | XMS | Encounter Summary ---
Demographics + + + | Address | [address] | | | [place] [address] | + + + | Home Phone [...] Team Providers + +------+ + | Care Anchorman Name | Role | Phone | + +------+ + | Long Copeland MD | PCP | | + +------+ + Encounter Details +--------+ + + + + | Date | Type | Department | Care Team | Description | +--------+ + + + + | 01/13/ | Document-Sc | [facility] [address] | Cristel Galicia MD | | | 2019 | marv | [facility] | [address] | | | | | [place], [place] | [place], [place] | | | | | [address] | [address] | | | | | | [phone] | | | | | | | [...] [place] | | | | | | [place], [place] | | | | | | [address] | | | | | | [phone] | | | | | | | [...]
--- OUTSIDE RECORDS SUMMARY | ~2020-02-10 | XMS | Encounter Summary ---
Demographics + + + | Address | [address] | | | [place] [address] | + + + | Home Phone | | + + + | Preferred Language | Unknown | + + + | Marital Status | | + + + | Episcopal Affiliation | NRP | + + + [...] + +------+ + | Care Director Of Business Services Name | Role | Phone | + +------+ + | Long Copeland MD | PCP | | + +------+ + Encounter Details +--------+--------+ + + + | Date | Type | Department | Care Team | Description | +--------+--------+ + + + | 10/13/ | Intake | Transfer Center | | | | 2020 | | [address] | | | | | | [place], | | | | | | [place] [address] | | | +--------+--------+ + + + [...] [place] | | | | | | [place], [place] | | | | | | [address] | | | | | | [phone] | | | | | | | | +--------+ + + + + documented as of this encounter Visit Diagnoses Not on filedocumented in this encounter"
--- OUTSIDE RECORDS SUMMARY | ~2020-02-10 | XMS | Encounter Summary ---
Demographics + + + | Address | [address] | | | [place] [address] | + + + | Home Phone | | + + + | Preferred Language | Unknown | + + + | Marital Status | | + + + | Protestant Affiliation | NRP | + + + | Race | White | + + + | Ethnic Group | Not or | + + + Author + + + | Author | [facility] | + + + | Organization | [facility] | + + + | Address | Unknown | + + + | Phone | Unavailable | + + + Support + + +---------+ + | Name | Relationship | Address | Phone | + + +---------+ + | Nella Haque | ECON | Unknown | | + + +---------+ + Care Team Providers + +------+ + | Care Clinical Dietetic Technician Name | Role | Phone | [...] Description | +--------+--------+ + + + | 11/01/ | Refill | [facility] | Rodriguez Bower MD | Refill Request | | 2020 | | Clinics at S | [address] | | | | | [place] [address] | [place], [place] | | | | | [address] [place] for | [address] | | | | | Health and Healing, | [phone] | | | | | [facility] [address] | | | | | | [place], [place] | | | | | | [address] | | | | | | [phone] | | | +--------+--------+ + + + [...] this encounter Miscellaneous Notes Telephone Encounter - Yao MckeonGUSTABO - 11/03/2019 2:38 PM PDT Last appointment with Rodriguez Bower MD was on 07/29/2019. Next appointment with Rodriguez Bower MD is scheduled on 01/27/2020. Last LIP progress note reviewed. Is there documentation to indicate that medication being r equested has been changed or discontinued? No Allergy list reviewed--Is the medication being requested on the patient's current allergy l ist? No Previous Prescription Details copied below: Date and Time Department Ordering/Authorizing 10/05/2019 2:50 PM [facility] Rodriguez Bower MD Outpatient Medication Detail Disp Refills TRAMADOL 50 mg oral tablet 90 tablet 0 Sig: TAKE ONE TABLET BY MOUTH EVERY 8 HOURS NEEDED FOR MODERATE PAIN Sent to pharmacy as: traMADoL 50 mg tablet (ULTRAM) Class: eRx Order: [id number] E-Prescribing Status: Receipt confirmed by pharmacy (10/05/2019 2:51 PM PDT) Start Date October 05, 2019 Per [facility] policy, routing encounter to LIP for review and approval documented in this encounter Plan of Treatment +--------+ + + + + | Date | Type | Specialty | Care Team | Description | +--------+ + + + + | 05/08/ | Telephone-S | Hematology & | Rodriguez Bower MD | | | 2019 | cheduled | Oncology | [address] | | | | | | [place], [place] | | | | | | [address] | | | | | | [phone] | | | | | | | | +--------+ + + + + documented as of this encounter Visit Diagnoses Not on filedocumented in this encounter"
--- OUTSIDE RECORDS SUMMARY | ~2020-02-10 | XMS | Encounter Summary ---
Demographics + + + | Address | [address] | | | [place] [address] | + + + | Home Phone | | + + + | Preferred Language | Unknown | + + + | Marital Status | | + + + | Nondenominational Affiliation | Unknown | + + + | Race | White | + + + | Ethnic Group | Not or | + + + Author + + + | Author | [facility] | | | and [place] | + + + | Organization | [facility] | | | and [place] | + + + | Address | Unknown | + + + | Phone | Unavailable | + + + Support + + + + + | Name | Relationship | Address | Phone | + + + + + | Nelal Haque | ECON | Unknown | | + + + + + | Matthew Ramirez | ECON | [address] | | | | | [place] | | | | | [address] | | + + + + + Care Team Providers + +------+ + | Care Lead Quality Control Technician Name | Role | Phone | + +------+ + | Ashly Rojo PA-C | PCP | | + +------+ + Reason for Visit + +--------+ + | Reason | Onset | Comments | | | Date | | + +--------+ + | Patient Concerns | 09/06/ | | | | 2019 | | + +--------+ + Encounter Details +--------+ + + + + | Date | Type | Department | Care Team | Description | +--------+ + + + + | 01/15/ | Telephone | [facility] | [place], | Patient Concerns | | 2019 | | [facility] | Luis Richards MD [address] | | | | | [facility] [address] | [facility] | | | | | [address] [place] | [address] [place], [place] | | | | | [place] [address] | [id number] | | | | | [phone] | | | +--------+ + + + [...] this encounter Miscellaneous Notes Telephone Encounter - Luis Antony MD - 01/16/2019 8:30 AM PDTAwaiting results o f biopsies performed by Dr. Stevenson in [place] on January 13, 2019. Electronically signed by: Luis Antnoy MD 01/16/2019 8:30 elephone Sarbjit Salinas RN - 01/15/2019 2:[address] Antony's an d Dr Mendez's consult notes, as well as Dr Stevenson's procedural note, contacted Ashly to let he r know we were awaiting biopsy pathology from Dr Stevenson's endoscopy/US Ashly understands these results can take a couple weeks to result, and will await Dr Stevenson's office, Dr Mendez's office, Dr Antony's office, or Dr Shukla's office to contact her wi results when available elephone Wu Duvall - 01/15/2019 2:18 PM PDTPt called, she is confused about diagnosis. She states Dr. Shukla initially told her she had a spot of cancer, she sees Dr. Antony w ho questions / doesn't see it, so sends her to Dr. Mendez who also doesn't really see it a nd calls Dr. Shukla who sends her to [place] for an ultrasound of the lining of her stomach/ GI tract is fine. She states is "about out of her mind" trying to understand this. She also asked to be transferred to Dr. Shukla office. Asks for call from Dr. Antony or nursing anyone that can help her. documented in this enco unter Plan of Treatment Not on filedocumented as of this encounter Visit Diagnoses Not on filedocumented in this encounter
--- OUTSIDE RECORDS SUMMARY | ~2020-02-10 | XMS | Encounter Summary ---
Demographics + + + | Address | [address] | | | [place] [address] | + + + | Home Phone | | + + + | Preferred Language | Unknown | + + + | Marital Status | | + + + | Jewish Affiliation | Unknown | + + + | Race | White | + + + | Ethnic Group | Not or | + + + Author + + + | Author | [facility] | | | and [place] | + + + | Organization | [facility] | | | [...] + + + + + | Matthew Gomez | ECON | [address] | | | | | [place] | | | | | [address] | | + + + + + Care Team Providers + +------+ + | Care Simulation Tech Name | Role | Phone | + +------+ + | Ashly Rojo PA-C | PCP | | + +------+ + Encounter Details +--------+---------+ + + + | Date | Type | Department | Care Team | Description | +--------+---------+ + + + | 03/06/ | Surgery | [facility] | Guillermo Randall | [facility] | | 2016 | | [facility] | [facility] [address] | Toes 2nd , 3rd, and | | | | [address] [place] | [address] [place], | 4th Toes | | | | [place], [place] | [place] [address] | | | | | [address] | [phone] | | | | | [phone] | | | +--------+---------+ + + + [...] Care Everywhere.Foot Surgery: Maurice pace Fifth Toe ([facility])Foot Surgery: Flexible and Rigid Hammertoes ([facility])Mallet, Hammer , and Claw Toes, Treating ([facility])Mallet, Hammer, and Claw Toes, What Are ([facility])document ed in this encounter Medications at Time [...] + + documented as of this encounter H&P Guillermo Arce DPM - 03/06/2017 11:20 AM PDTH&P reviewed no changesElectronically minnie d by Guillermo Randall DPM at 03/06/2017 11:22 AM PDTdocumented in this encounter Miscellaneous Notes Op Note - Guillermo Randall DPM - 03/06/2017 10:34 PM PDT [facility] [address] [place] [address] OPERATIVE REPORT GUILLERMO RANDALL DPM Patient: ASHLY GOMEZ Admitting: GUILLERMO RANDALL MR #: [id number] LOC: PT TYPE: Adm Date: 03/06/2017 : 1940 Surgery was performed at [facility] in [place], [place] on 03/06/2017. PREOPERATIVE DIAGNOSIS: Hammertoes, digits 2, 3, and 4, right foot. POSTOPERATIVE DIAGNOSIS: Hammertoes, digits 2, 3, and 4, right foot. PROCEDURE: Correction of hammertoes, digits 2, 3, and 4, right foot. ANESTHESIA: Monitored anesthesia care provided by Luz Farias CRNA of the anesthesia service and 10 mL of 1 percent lidocaine and 16 mL of 0.5 percent Marcaine plain. SURGEON: Guillermo Randall DPM ASSISTANTS: None. ESTIMATED BLOOD LOSS: Minimal, less than 15 mL FINDINGS: Rigid hammertoe contractures of the proximal interphalangeal joints of the 2nd, 3rd and 4th digits, right foot. The 2nd distal interphalangeal joint with hypertrophied medial aspect of the head of the intermediate phalanx. TOURNIQUET: Right ankle tourniquet at 225 mmHg times 50 minutes. IMPLANTS: 0.045 K wires times 3. INDICATIONS FOR PROCEDURE: The patient is a 76-year-old female who presented to my office with a longstanding complaint of painful hammertoes to the right foot. The hammertoes limited her shoe gear as well as ambulation. She had tried padding splints, custom orthotics, and shoe gear modification with no improvement of symptoms. She elected to pursue surgical intervention. DESCRIPTION OF CASE: The patient was seen in the perioperative care unit. Surgical site was confirmed and signed. Surgery was discussed in detail with the patient. No guarantees were given or implied. The patient was then transferred to the operative suite and placed in supine position. A pneumatic tourniquet was placed about the right ankle. Monitored anesthesia care was administered by Luz Farias. Following a final pause confirming patient, location and procedures, the right lower extremity was then prepped and draped in the usual aseptic fashion. An Esmarch dressing was utilized to exsanguinate the right foot and tourniquet inflated to 225 mmHg. Attention was first directed to the dorsal aspect of the 2nd digit where a 6 cm curvilinear incision was created over the dorsum of the 2nd ray from 2 cm proximal to the metatarsophalangeal joint, distally to the distal interphalangeal joint. This incision was deepened with sharp and blunt dissection down to level of the periosteum to the joint capsule of the proximal interphalangeal joint. A transverse capsulotomy was then performed. Soft tissues were released from about the head of the proximal phalanx. Dissection was then carried distally over the medial aspect of the head of the intermediate phalanx. A rongeur was utilized to reduce the bony hypertrophy of this area. Following this, the extensor land was released medially, as well as the medial release of the joint capsule was performed. Following this, adequate reduction of the contracture of both the metatarsophalangeal joint, as well as the proximal interphalangeal joint, was achieved. A sagittal saw was used to resect the head of the proximal phalanx as well as the base of the intermediate phalanx. The wound was then copiously lavaged with normal saline and a 0.045 K wire was introduced in an intermedullary fashion. This was carried proximally into the metatarsal. The extensor digitorum longus tendon was reapproximated with 3-0 Vicryl and layered closure was carried out with 3-0 Vicryl, 4-0 Monocryl, and 4-0 nylon. Attention was then directed to the dorsum of the 3rd digit where a 3 cm linear longitudinal incision was created. This incision was deepened with sharp and blunt dissection down to the level of the proximal interphalangeal joint capsule. A transverse capsulotomy was then performed. Soft tissue was released from about the head of the proximal phalanx and the base of the intermediate phalanx. A sagittal saw was used to resect the head of the proximal phalanx as well as base of the intermediate phalanx. The wound was copiously lavaged with normal saline and a 0.045 K wire was introduced in an intramedullary fashion. This wire was then advanced across the metatarsophalangeal joint as well. Attention was then finally directed to the 4th digit where 2 intersecting, semielliptical incisions were made in a distal medial to proximal lateral fashion. The interposed tissue was sharply excised and passed from the surgical field. The proximal interphalangeal joint was then isolated. A transverse capsulotomy was performed. Soft tissues were released from about the head of the proximal phalanx. A sagittal saw was used to resect the head of the proximal phalanx. Following this, the wound was copiously lavaged with normal saline and a 0.045 K wire was introduced in an intramedullary fashion. Following this, the extensor digitorum longus slips to both digits 3 and 4 were reapproximated using 3-0 Vicryl and layered closure was carried out with 4-0 Monocryl and 4-0 nylon. Intraoperative fluoroscopy was utilized to confirm placement of the K wires as well as alignment of the arthrodesis sites to the proximal interphalangeal joints of digits 2 and 3. An additional 16 mL of 0.05 percent Marcaine plain were injected about the right forefoot. A dressing was applied with Adaptic, gauze, Kerlix and Coban. Please note that prior to following confirmation of placement of the K wires, the distal aspects of the K wires were bent and capped in the usual fashion. The tourniquet was deflated at 50 minutes with instant hyperemia to the digits of the right foot. The patient was then placed in a postop shoe with a toe protector. The patient was brought from monitored anesthesia care and transferred back to the perioperative care unit with all vital signs stable and vascular status intact to the digits of the right foot. The patient will be discharged to home when stable. The patient can to be weightbearing as tolerated in a postoperative shoe. The patient to contact my office for any signs or symptoms of infection or if the dressing becomes wet or soiled. The patient to follow up with my office within 1 week as scheduled. GUILLERMO RANDALL DPM Dictated by GUILLERMO RANDALL DPM 03/06/2017 22:34:23 Transcribed on 03/07/2017 00:13:31 by poncho khan# [id number] Confirmation #: [id number] rief Op Note - Ollie andradeGuillermo DPM - 03/06/2017 12:35 PM PDTFormatting of this note might be different fro m the original. Brief Operative Note Ashly Gomez 76 y.o. female 1940 [id number] Proc. Date 03/06/2017 Preop Dx Hammer Toes Postop Dx same Procedure Correction Hammer Toes 2nd , 3rd, and 4th Toes (Right) Anesthesia 10ml 1% lidocaine, 16ml 0.5% marcaine plain, MAC per anesthesia Surgeon Guillermo Randall DPM - Primary Computer Numerical Control Grinder EBL less than 50 mL Findings Findings consistent with scheduled procedure. No other abnormalities found. Complications none Specimens * No specimens in log * Drains Electronically signed by: Guillermo Randall DPM 03/06/2017 12:35 CC [facility] 12 :36 PM PDTdocumented in this encounter Plan of [...] | + +--------+ + + + | ECG 12 LEAD | STAT | 03/06/2017 | | | | | | 12:00 AM | | | | | | [...] | bupivacaine (PF) (MARCAINE) | Given | 03/06/20 | 16 mLs | | Foot-Rig | [...]
--- OUTSIDE RECORDS SUMMARY | ~2020-02-10 | XMS | Encounter Summary ---
Demographics + + + | Address | [address] | | | [place] [address] | + + + | Home Phone | | + + + | Preferred Language | Unknown | + + + | Marital Status | | + + + | Protestant Affiliation | Unknown | + + + | Race | White | + + + | Ethnic Group | Not or | + + + Author + + + | Author | [facility] | | | and [place] | + + + | Organization | [facility] | | | and [...] + | Matthew Ramirez | ECON | [address] | | | | | [place] | | | | | [address] | | + + + + + Care Team Providers + +------+ + | Care Supervisor Insecticide Name | Role | Phone | + +------+ + PCP | Unavailable | + +------+ + Encounter Details +--------+ + + + + | Date | Type | Department | Care Team | Description | +--------+ + + + + | 02/02/ | Hospital | [facility] | | | | 2001 | Encounter | [facility] OP | | | | | | [address] | | | | | | [place], [place] | | | | | | [address] | | | | | | [phone] | | | +--------+ + + + [...]
--- OUTSIDE RECORDS SUMMARY | ~2020-02-10 | XMS | Encounter Summary ---
Demographics + + + | Address | [address] | | | [place] [address] | + + + | Home Phone | | + + + | Preferred Language | Unknown | + + + | Marital Status | | + + + | Pentecostalism Affiliation | Unknown | + + + | Race | White | + + + | Ethnic Group | Not or | + + + Author + + + | Author | [facility] | | | and [place] | + + + | Organization | [facility] | | | and [...] + | Matthew Ramirez | ECON | [address] | | | | | [place] | | | | | [address] | | + + + + + Care Team Providers + +------+ + | Care Precinct Police Sergeant Name | Role | Phone | + +------+ + | Ashly Rojo PA-C | PCP | | + +------+ + Encounter Details +--------+ + + + + | Date | Type | Department | Care Team | Description | +--------+ + + + + | 11/17/ | Abstract | [facility] | Kristie, | | | 2018 | | GASTROENTEROLOGY | MD [address] | | | | | [address] | [place]. | | | | | [address] [place] | [place] [address] | | | | | [address] | | | | | | [phone] | | | +--------+ + + + [...] +--------+ + + + | EXTERNAL LAB: BUN | Routin | 08/04/2018 | | Results for this | | | e | | | procedure are in the | | | | | | results section. | + +--------+ + + + | EXTERNAL LAB: | Routin | 08/04/2018 | | Results for this | | GLUCOSE | e | | | procedure are in the | | | | | | results section. | + +--------+ + + + | EXTERNAL LAB: SALMA | Routin | 08/04/2018 | | Results for this | | | e | | | procedure are in the | | | | | | results section. | + +--------+ + + + | EXTERNAL LAB: KAVITA | Routin | 08/04/2018 | | Results for this | | | e | | | procedure are in the | | | | | | results section. | + +--------+ + + + | EXTERNAL LAB: | Routin | 08/04/2018 | | Results for this | | ALKALINE PHOSPHATASE | e | | | procedure are in the | | | | | | results section. | + +--------+ + + + | EXTERNAL LAB: | Routin | 08/04/2018 | | Results for this | | BILIRUBIN, TOTAL | e | | | procedure are in the | | | | | | results section. | + +--------+ + + + | EXTERNAL LAB: | Routin | 08/04/2018 | | Results for this | | ALBUMIN | e | | | procedure are in the | | | | | | results section. | + +--------+ + + + | EXTERNAL LAB: | Routin | 08/04/2018 | | Results for this | | PROTEIN, TOTAL | e | | | procedure are in the | | | | | | results section. | + +--------+ + + + | EXTERNAL LAB: | Routin | 08/04/2018 | | Results for this | | CALCIUM | e | | | procedure are in the | | | | | | results section. | + +--------+ + + + | EXTERNAL LAB: CARBON | Routin | 08/04/2018 | | Results for this | | DIOXIDE | e | | | procedure are in the | | | | | | results section. | + +--------+ + + + | EXTERNAL LAB: | Routin | 08/04/2018 | | Results for this | | CHLORIDE | e | | | procedure are in the | | | | | | results section. | + +--------+ + + + | EXTERNAL LAB: | Routin | 08/04/2018 | | Results for this | | POTASSIUM | e | | | procedure are in the | | | | | | results section. | + +--------+ + + + | EXTERNAL LAB: SODIUM | Routin | 08/04/2018 | | Results for this | | | e | | | procedure are in the | | | | | | results section. | + +--------+ + + + | EXTERNAL LAB: CBC | Routin | 08/04/2018 | | Results for this | | | e | | | procedure are in the | | | | | | results section. | + +--------+ + + + | EXTERNAL LAB: EGFR | Routin | 08/04/2018 | | Results for this | | | e | | | procedure are in the | | | | | | results section. | + +--------+ + + + | EXTERNAL LAB: | Routin | 08/04/2018 | | Results for this | | CREATININE | e | | | procedure are in the | | | | | | results section. | + +--------+ + + + | SEDIMENTATION RATE | Routin | 08/04/2018 | | Results for this | | | e | | | procedure are in the | | | | | | results section. | + +--------+ + + + | CBC WITH | Routin | 08/04/2018 | | Results for this | | DIFFERENTIAL | e | | | procedure are in the | | | | | | results section. | + +--------+ + + + | COMPREHENSIVE | Routin | 08/04/2018 | | Results for this | | METABOLIC PANEL | e | | | procedure are in the | | | | | | results section. | + +--------+ + + + documented in this encounter Results Sedimentation Rate (08/04/2018) + +-------+ + + + | Component | Value | Ref Range | Performed | Pathologist | | | | | At | Signature | + +-------+ + + + | Erythrocyte | 14 | 0 - 20 mm/hr | | | | | | | | | | Sedimentati | | | | | | on Rate | | | | | + +-------+ + + + + + | Specimen | + + | Blood | + + CBC with Differential (08/04/2018) + +-------+ + + + | Component [...] + + + | % Basophils | 0.6 | 0.0 - 2.0 % | | | + +-------+ + + + + + | Specimen | + + | Blood | + + Comprehensive Metabolic Panel (08/04/2018) + +-------+ + + + | Component | Value | Ref Range | Performed | Pathologist | | | | | At | Signature | + +-------+ + + + | Anion Gap | 19 | 7 - 21 mmol/L | | | + +-------+ + + + | Bun/Creatin | 18.8 | 6.0 - 28.6 | | | | ine | | Ratio | | | + +-------+ + + + | Globulin | 2.2 | 1.8 - 3.5 g/dl | | | + +-------+ + + + | Albumin/Rocío | 2.1 | 1.1 - 2.4 Ratio | | | | bulin Ratio | | | | | + +-------+ + + + + + | Specimen | + + | Blood | + + External Lab: BUN (08/04/2018) + +-------+ + + + | Component | Value | Ref Range | Performed | Pathologist | | | | | At | Signature | + +-------+ + + + | BUN, | 19 | 6 - 23 | EXTERNAL | | | External | | | LAB | | + +-------+ + + + + +---------+ + + | Performing | Address | City/State/Zipcode | Phone Number | | Organization | | | | + +---------+ + + | EXTERNAL LAB | | | | + +---------+ + + External Lab: Glucose (08/04/2018) + +---------+ + + + | Component | Value | Ref Range | Performed | Pathologist | | | | | At | Signature | + +---------+ + + + | Glucose, | 113 (A) | 70 - 100 | EXTERNAL | | | External | | | LAB | | + +---------+ + + + + +---------+ + + | Performing | Address | City/State/Zipcode | Phone Number | | Organization | | | | + +---------+ + + | EXTERNAL LAB | | | | + +---------+ + + External Lab: ALT (08/04/2018) + +-------+ + + + | Component | Value | Ref Range | Performed | Pathologist | | | | | At | Signature | + +-------+ + + + | ALT, | 17 | 7 - 52 | EXTERNAL | | | External | | | LAB | | + +-------+ + + + + +---------+ + + | Performing | Address | City/State/Zipcode | Phone Number | | Organization | | | | + +---------+ + + | EXTERNAL LAB | | | | + +---------+ + + External Lab: AST (08/04/2018) + +-------+ + + + | Component | Value | Ref Range | Performed | Pathologist | | | | | At | Signature | + +-------+ + + + | AST, | 17 | 13 - 39 | EXTERNAL | | | External | | | LAB | | + +-------+ + + + + +---------+ + + | Performing | Address | City/State/Zipcode | Phone Number | | Organization | | | | + +---------+ + + | EXTERNAL LAB | | | | + +---------+ + + External Lab: Alkaline Phosphatase (08/04/2018) + +-------+ + + + | Component | Value | Ref Range | Performed | Pathologist | | | | | At | Signature | + +-------+ + + + | ALP, | 106 | 31 - 130 | EXTERNAL | | | External | | | LAB | | + +-------+ + + + + +---------+ + + | Performing | Address | City/State/Zipcode | Phone Number | | Organization | | | | + +---------+ + + | EXTERNAL LAB | | | | + +---------+ + + External Lab: Bilirubin, Total (08/04/2018) + +-------+ + + + | Component [...] + +---------+ + + External Lab: Albumin (08/04/2018) + +-------+ + + + | Component | Value | Ref Range | Performed | Pathologist | | | | | At | Signature | + +-------+ + + + | Albumin, | 4.7 | 3.5 - 5 | EXTERNAL | | | External | | | LAB | | + +-------+ + + + + +---------+ + + | Performing | Address | City/State/Zipcode | Phone Number | | Organization | | | | + +---------+ + + | EXTERNAL LAB | | | | + +---------+ + + External Lab: Protein, Total (08/04/2018) + +-------+ + + + | Component [...] + +---------+ + + External Lab: Calcium (08/04/2018) + +-------+ + + + | Component | Value | Ref Range | Performed | Pathologist | | | | | At | Signature | + +-------+ + + + | Calcium, | 10.2 | 8.5 - 10.3 | EXTERNAL | | | External | | | LAB | | + +-------+ + + + + +---------+ + + | Performing | Address | City/State/Zipcode | Phone Number | | Organization | | | | + +---------+ + + | EXTERNAL LAB | | | | + +---------+ + + External Lab: Carbon Dioxide (08/04/2018) + +-------+ + + + | Component | Value | Ref Range | Performed | Pathologist | | | | | At | Signature | + +-------+ + + + | Carbon | 21 | 19 - 31 | EXTERNAL | [...] + +---------+ + + External Lab: Chloride (08/04/2018) + +-------+ + + + | Component | Value | Ref Range | Performed | Pathologist | | | | | At | Signature | + +-------+ + + + | Chloride, | 99 | 95 - 112 | EXTERNAL | | | External | | | LAB | | + +-------+ + + + + +---------+ + + | Performing | Address | City/State/Zipcode | Phone Number | | Organization | | | | + +---------+ + + | EXTERNAL LAB | | | | + +---------+ + + External Lab: Potassium (08/04/2018) + +-------+ + + + | Component | Value | Ref Range | Performed | Pathologist | | | | | At | Signature | + +-------+ + + + | Potassium, | 4.7 | 3.6 - 5.1 | EXTERNAL | | | External | | | LAB | | + +-------+ + + + + +---------+ + + | Performing | Address | City/State/Zipcode | Phone Number | | Organization | | | | + +---------+ + + | EXTERNAL LAB | | | | + +---------+ + + External Lab: Sodium (08/04/2018) + +-------+ + + + | Component | Value | Ref Range | Performed | Pathologist | | | | | At | Signature | + +-------+ + + + | Sodium, | 134 | 132 - 143 | EXTERNAL | | | External | | | LAB | | + +-------+ + + + + +---------+ + + | Performing | Address | City/State/Zipcode | Phone Number | | Organization | | | | + +---------+ + + | EXTERNAL LAB | | | | + +---------+ + + External Lab: CBC (08/04/2018) + +-------+ + + + | Component | Value | Ref Range | Performed | Pathologist | | | | | At | Signature | + +-------+ + + + | WBC, | 6.5 | 4.5 - 11 | EXTERNAL | | | External | | | LAB | | + +-------+ + + + | HGB, | 14.0 | 12 - 16 | EXTERNAL | | | External | | | LAB | | + +-------+ + + + | HCT, | 40.7 | 35 - 45 | EXTERNAL | | | External | | | LAB | | + +-------+ + + + | PLT, | 269 | 140 - 440 | EXTERNAL | | | External | | | LAB | | + +-------+ + + + | Neutrophils | 59.1 | 39 - 80 | EXTERNAL | | | %, | | | LAB | | | External | | | | | + +-------+ + + + | Lymphocytes | 29.4 | 24 - 44 | EXTERNAL | | | %, | | | LAB | | | External | | | | | + +-------+ + + + | Monocytes | 7.6 | 0 - 12 | EXTERNAL | | | %, External | | | LAB | | + +-------+ + + + | Eosinophils | 3.3 | 0 - 6 | EXTERNAL | | | %, | | | LAB | | | External | | | | | + +-------+ + + + | RBC, | 4.58 | 3.8 - 5.1 | EXTERNAL | | | External | | | LAB | | + +-------+ + + + | MCV, | 90 | 81 - 99 | EXTERNAL | | | External | | | LAB | | + +-------+ + + + | RDW, | 13.9 | 10.5 - 15 | EXTERNAL | | | External | | | LAB | | + +-------+ + + + + +---------+ + + | Performing | Address | City/State/Zipcode | Phone Number | | Organization | | | | + +---------+ + + | EXTERNAL LAB | | | | + +---------+ + + External Lab: eGFR (08/04/2018) + +--------+ + + + | Component [...] + +---------+ + + External Lab: Creatinine (08/04/2018) + + + + + + | Component | Value | Ref Range | Performed | Pathologist | | | | | At | Signature | + + + + + + | Creatinine, | 1.01 (A) | 0.7 - 1 | EXTERNAL | | | External | | | LAB | | + + + + + [...]
--- OUTSIDE RECORDS SUMMARY | ~2020-02-10 | XMS | Encounter Summary ---
Demographics + + + | Address | [address] | | | [place] [address] | + + + | Home Phone [...] + + + | Author | [facility] | | | and [place] | + + + | Organization | [facility] | | | [...] + | Matthew Ramirez | ECON | [address] | | | | | [place] | | | | | [address] | | + + + + + Care Team Providers + +------+ + | Care Box Car Checker Name | Role | Phone | + +------+ + PCP | Unavailable | + +------+ + Encounter Details +--------+ + + + + | Date | Type | Department | Care Team | Description | +--------+ + + + + | 07/15/ | Hospital | [facility] | | | | 2001 | Encounter | [facility] GENER[facility] | | | | | | CONV DEPT [address] | | | | | | [place], | | | | | | [place] [address] | | | | | | [phone] | | | +--------+ + + + [...]
--- OUTSIDE RECORDS SUMMARY | ~2020-02-10 | XMS | Encounter Summary ---
Demographics + + + | Address | [address] | | | [place] [address] | + + + | Home Phone [...] + | Author | [facility] | | | and [place] | + + + | Organization | [facility] | | | [...] + | Matthew Ramirez | ECON | [address] | | | | | [place] | | | | | [address] | | + + + + + Care Team Providers + +------+ + | Care Massage Operator Name | Role | Phone | [...] | | | [address] | [place] [address] | | | | | [place] [address] | | | | | | [phone] | | | +--------+ + + + [...]
--- OUTSIDE RECORDS SUMMARY | ~2020-02-10 | XMS | Encounter Summary ---
Demographics + + + | Address | [address] | | | [place] [address] | + + + | Home Phone [...] | Author | [facility] | | | and [place] | + + + | Organization | [facility] | | | [...] + | Matthew Ramirez | ECON | [address] | | | | | [place] | | | | | [address] | | + + + + + Care Team Providers + +------+ + | Care Deep Fat Cook Fry Name | Role | Phone | + [...] | | | | Gastric mass | [place], [place] | [place], [place] | | | | | Procedures | [address] | [address] Phone: | | | | | Urgent- | Phone: | [phone] | | | | | EGD + EUS | [phone] | Fax: | | | | | NEXT WEEK | Fax: | [phone] | | | | | | [phone] | | +--------+ + + + + + Encounter Details +--------+ + + + + | Date | Type | Department | Care Team | Description | +--------+ + + + + | 01/06/ | Orders Only | [facility] | Matthew Shukla MD | Gastric | | 2019 | | GASTROENTEROLOGY | [address] | adenocarcinoma (HCC) | | | | [address] | [place], [place] | (Primary Dx) | | | | [address] [place] | [address] | | | | | [address] | [phone] | | | | | [phone] | | | +--------+ + + + [...] + documented as of this encounter Progress Arlyn Gamez RN - 01/06/2019 3:11 PM PDTDr. Shukla notified patient needed Urgent referral to [facility] for Eval Egd/EUS of gastric adenocarcinoma r/o [...] Gastroenterology | | | | | | ([place]) | | | | | + + +--------+ + + documented as of this encounter Visit Diagnoses + + | Diagnosis | + + | Gastric adenocarcinoma (HCC) - Primary Malignant neoplasm of stomach, unspecified | | site | + + documented in this encounter"
--- OUTSIDE RECORDS SUMMARY | ~2020-02-10 | XMS | Encounter Summary ---
Demographics + + + | Address | [address] | | | [place] [address] | + + + | Home Phone | | + + + | Preferred Language | Unknown | + + + | Marital Status | | + + + | Confucianist Affiliation | NRP | + + + [...] Team Providers + +------+ + | Care Blending Plant Operator Name | Role | Phone | + +------+ + | Long Copeland MD | PCP | | + +------+ + Reason for Visit + +--------+ + | Reason | Onset | Comments | | | Date | | + +--------+ + | Scheduling | 07/25/ | | | | 2020 | | + +--------+ + Encounter Details +--------+ + + + + | Date | Type | Department | Care Team | Description | +--------+ + + + + | 07/25/ | Telephone | [facility] | Rodriguez Bower MD | Scheduling | | 2019 | | Clinics at S | [address] | | | | | [place] [address] | [facility] [place] | | | | | [address] [place] for | [address] | | | | | Health and Healing, | [phone] | | | | | [address] | | | | | | [place], [place] | | | | | | [address] | | | | | | [phone] | | | +--------+ + + + [...] this encounter Miscellaneous Notes Telephone Encounter - Aury Rose - 07/26/2019 1:19 PM PDTPatient left voicemail at 9 :40am requesting call back from traffic control operator. PAS called patient back and scheduled 07/28 appt time slot that was on hold and cancelled Ozzie quesada appt with , per earlier encounter; patient very appreciative. Routing to [facility] as FYI el ephone Encounter - Jeanette Juan - 07/26/2019 9:34 AM PDTPAS contacted pt to relay that MD lomax an see her for a follow up to discuss care plan on 07/28 at 1:35pm. Pt hesitant because she i s unsure if she will have a ride. PAS assured pt that the slot is held for her so to call louis weber whenever she knows if she can make it. Upon call back, if pt agreeable to 07/28 appt, please cancel May appt with Dr. Best. Elect ronically signed by Jeanette Juan at 07/26/2019 9:36 AM PDTdocumented in this encounter Plan of Treatment +--------+ + + + + | Date | Type | Specialty | Care Team | Description | +--------+ + + + + | 05/08/ | Telephone-S | Hematology & | Rodriguez Bower MD | | 2019 | cheduled | Oncology | [address] | | | | | | [place], [place] | | | | | | [address] | | | | | | [phone] | | | | | | | | +--------+ + + + + documented as of this encounter Visit Diagnoses Not on filedocumented in this encounter"
--- OUTSIDE RECORDS SUMMARY | ~2020-02-10 | XMS | Encounter Summary ---
Demographics + + + | Address | [address] | | | [place] [address] | + + + | Home Phone [...] + | Author | [facility] | | | and [place] | + + + | Organization | [facility] | | | [...] + | Matthew Ramirez | ECON | [address] | | | | | [place] | | | | | [address] | | + + + + + Care Team Providers + +------+ + | Care Industrial Twisting Machine Operator Name | Role | Phone | + +------+ + | Ashly Rojo PA-C | PCP | | + +------+ + Encounter Details +--------+ + + + + | Date | Type | Department | Care Team | Description | +--------+ + + + + | 01/05/ | Abstract | [facility] [place] | Kristie, | | | 2018 | | GASTROENTEROLOGY | MD [address] | | | | | [address] [facility] | [place]. | | | | | [address] [place] | [place] [address] | | | | | [address] | | | | | | [phone] | | | +--------+ + + + [...] | EXTERNAL LAB: BUN | Routin | 12/30/2018 | | Results [...] | EXTERNAL LAB: SALMA | Routin | 12/30/2018 | | Results for this | | | e | | | procedure are in the | | | | | | results section. | + +--------+ + + + | EXTERNAL LAB: KAVITA | [place] | 12/30/2018 | | Results for this [...]
--- OUTSIDE RECORDS SUMMARY | ~2020-02-10 | XMS | Clinical Summary ---
Demographics + + + | Address | [address] | | | [place] [address] | + + + | Home Phone | | + + + | Preferred Language | Unknown | + + + | Marital Status | | + + + | Cheondoism Affiliation | NRP | + + + [...] Providers + +------+ + | Care Application Systems Architect Name | Role | Phone | + +------+ + | Long Copeland MD | PCP | | + +------+ + Source Comments [facility] is fully live on both [facility] and [facility] InPatient.[facility] Allergies + + + + + + | Active Allergy | Reactions | Severity | Noted | Comments | | | | | Date | | + + + + + + | Codeine | Psychosis | Medium | 10/04/19 | | | | | | 11 | | + + + + + + | Sulfa (Sulfonamide | Edema | Medium | 20 | | | Antibiotics) | | | [...] | | | | e | | [place] | once daily. | | | | [...] TABLET BY | 90 | 0 | 09/2 | | Activ | | oral tablet | MOUTH EVERY 8 HOURS | tablet | | 4/20 | | e | | | NEEDED FOR | | | 20 | | | | | MODERATE PAIN | | | | | | + + + +---------+------+------+-------+ Active Problems + + + | Problem | Noted Date | + + + | Lobular breast cancer, unspecified laterality | 10/29/2019 | + + + | Metastatic breast cancer | 07/29/2019 | + + + Encounters +--------+ + + + + | Date | Type | Specialty | Care Team | Description | +--------+ + + + + | 02/02/ | Refill | Hematology & | Rodriguez Bower MD | Refill Request | 2019 | | Oncology | | | +--------+ + + + + | 01/26/ | Telephone-S | Hematology & | Rodriguez Bower MD | Follow-up visit | | 2019 | cheduled | Oncology | | | +--------+ + + + + | 01/18/ | Telephone | Hematology & | Rodriguez Bower MD | Other | 2019 | | Oncology | | | +--------+ + + + + | 01/02/ | Refill | Hematology & | Rodriguez Bower MD | Refill Request | | 2019 | | Oncology | | | +--------+ + + + + | 12/05/ | Refill | Hematology & | Rodriguez [...] + + + + Plan of Treatment +--------+ + + + + | Date | Type | Specialty | Care Team | Description | +--------+ + + + + | 05/08/ | Telephone-S | Hematology & | Rodriguez Bower MD | | | 2020 | cheduled | Oncology | [address] | | | | | | [place], [place] | | | | | | [address] | | | | | | [phone] | | | | | | | | +--------+ + + + + + + + + + | Health Maintenance | Due Date | Last | Comments | | | | Done | | + + + + + | Mammogram | | | | | | 9 | | | + + + + + | Pneumococcal | | | | | vaccination (1 of 1 | 4 | | | | - PPSV23) | | | | + + + + + | Influenza (Flu) | | 01/31/20 | | | vaccination (#1) | 0 | 19, | | [...] + +--------+ | MEDICARE | MEDICA | [id number] | 10/11/19 | [phone] | [address] | Medica | | | RE A & | | 04-Pre | 1 | [address] | re | | | B | | sent | | [place], [place] | | | | | | | | [address] | | + +--------+ +--------+ + +--------+ | MODA MEDICARE | MODA | [id number] | 05/12/19 | [phone] | [address] | POS | | SUPPLEMENT | MEDICA | | 19-Pre | 4 | [phone] | | | | RE | | sent | | [place], | | | | [place]PPLE | | | | [place] [address] | | | | MENT | | [...] Person | Self | [birth year] | [address] | | | al/Rene | | 1941 | [phone] | [place] | | | amrik | | | [address] (Home) | [address] | + +--------+ +--------+ + + Advance [...]
--- OUTSIDE RECORDS SUMMARY | ~2020-02-10 | XMS | Encounter Summary ---
Demographics + + + | Address | [address] | | | [place] [address] | + + + | Home Phone | | + + + | Preferred Language | Unknown | + + + | Marital Status | | + + + | Latter Day Affiliation | Unknown | + + + | Race | White | + + + | Ethnic Group | Not or | + + + Author + + + | Author | [facility] | | | and [place] | + + + | Organization | [facility] | | | [...] + | Matthew Ramirez | ECON | [address] | | | | | [place] | | | | | [address] | | + + + + + Care Team Providers + +------+ + | Care Learning Developer Name | Role | Phone | + +------+ + | Ashly Rojo PA-C | PCP | | + +------+ + Reason for Referral Diagnostic/Screening (Urgent) +--------+--------+ + + + + | Status | Reason | Specialty | Diagnoses / | Referred By | Referred To | | | | | Procedures | Contact | Contact | +--------+--------+ + + + + | Closed | | Radiology | Diagnoses | Cristel Galicia | [facility] | | | | | Tumor | MD [address] | Scan [address] | | | | | Gastric | [address] | [place] | | | | | adenocarcino | [facility], | [place], [place] | | | | | ma (HCC) | [place] | [address] | | | | | Procedures | [address] | Phone: | | | | | PET CT Skull | Phone: | [phone] | | | | | Base To Mid | [phone] | Fax: | | | | | Thigh | Fax: | [phone] | | | | | | [phone] | | +--------+--------+ + + + + Reason for Visit Diagnostic/Screening (Urgent) +--------+--------+ + + + + | Status | Reason | Specialty | Diagnoses / | Referred By | Referred To | | | | | Procedures | Contact | Contact | +--------+--------+ + + + + | Closed | | Radiology | Diagnoses | Cristel Galicia | [facility] | | | | | Tumor | MD [address] | Scan [address] | | | | | Gastric | [address] | [place] | | | | | adenocarcino | [place], | [place], [place] | | | | | ma (HCC) | [place] | [address] | | | | | Procedures | [address] | Phone: | | | | | PET CT Skull | Phone: | [phone] | | | | | Base To Mid | [phone] | Fax: | | | | | Thigh | Fax: | [phone] | | | | | | [phone] | | +--------+--------+ + + + + Encounter Details +--------+ + + + + | Date | Type | Department | Care Team | Description | +--------+ + + + + | 02/18/ | Hospital | [facility] | Cristle Galicia MD | Tumor; Gastric | | 2019 | Encounter | MED CTR PET SCAN | [address] | adenocarcinoma (HCC) | | | | [address] | [place], [place] | | | | | [place] [address] | [address] | | | | | [phone] | [phone] | | | | | | | [...] | | | | | | ol (ADVRHONDA MARINO | morning. Advair | | | | [...] the common bile duct. | | | Wboq-dt-ntcz and in the right aspect of L4. [...] | |dilatation of the common bile duct. Jcbk-em-tdmd and in the right aspect of L4. [...] | | of the common bile duct. Jucp-jw-bzod and in the right aspect of L4.IMPRESSION: [...] | |dilatation of the common bile duct. Czhn-gn-tvqz and in the right aspect of L4. [...] fluorine-18 FDG injection 10.62 | Given | 10/10/20 | 10.62 | | | | millicurie 10.62 millicurie, | | 19 10:39 | millicur | | | | Intravenous, ONCE, [facility] 02/18/19 | | AM PDT | ies | | | | at 1045, For 1 dose | | | | | | + +--------+ + +------+------+ +---+---+ | | | +---+---+ documented in this encounter
--- OUTSIDE RECORDS SUMMARY | ~2020-02-10 | XMS | Encounter Summary ---
Demographics + + + | Address | [address] | | | [place] [address] | + + + | Home Phone | | + + + | Preferred Language | Unknown | + + + | Marital Status | | + + + | Orthodox Affiliation | NRP | + + + | Race | White | + + + | Ethnic Group | Not or | + + + Author + + + | Author | [facility] | + + + | Organization | [facility] | + + + | Address | Unknown | + + + | Phone | Unavailable | + + + Support + + +---------+ + | Name | Relationship | Address | Phone | + + +---------+ + | Nella Haque | ECON | Unknown | | + + +---------+ + Care Team Providers + +------+ + | Care Restaurant Team Member Name | Role | Phone | + [...] +--------+--------+ + + + | 02/02/ | Refill | [facility] | Rodriguez Bower MD | Refill Request | | 2020 | | Clinics at S | [address] | | | | | [address] | [place], [place] | | | | | [address] [place] for | [address] | | | | | Health and Healing, | [phone] | | | | | [facility] | | | | | | [place], [place] | | | | | | [address] | | | | | | [phone] | | | +--------+--------+ + + + [...] encounter Miscellaneous Notes Telephone Encounter - Yao Mckeon MA - 02/03/2020 1:34 PM PDT Last appointment with Rodriguez Bower MD was on 01/27/2020. Next appointment with Rodriguez Bower MD is scheduled on 05/08/2020. Last LIP progress note reviewed. Is there documentation to indicate that medication being r equested has been changed or discontinued? No Allergy list reviewed--Is the medication being requested on the patient's current allergy l ist? No Previous Prescription Details copied below: Date and Time Department Ordering/Authorizing 01/03/2020 4:00 PM [facility] Rodriguez Bower MD Outpatient Medication Detail Disp Refills TRAMADOL 50 mg oral tablet 90 tablet 0 Sig: TAKE ONE TABLET BY MOUTH EVERY 8 HOURS NEEDED FOR MODERATE PAIN Sent to pharmacy as: traMADoL 50 mg tablet (ULTRAM) Class: eRx Order: [id number] E-Prescribing Status: Receipt confirmed by pharmacy (01/03/2020 4:00 PM PDT) Start Date Jan 03, 2020 Per [facility] policy, routing encounter to LIP for review [...] [address] | | | | | | [place], [place] | | | | | | [address] | | | | | | [phone] | | | | | | | | +--------+ + + + + documented as of this encounter Visit Diagnoses Not on filedocumented in this encounter"
--- OUTSIDE RECORDS SUMMARY | ~2020-02-10 | XMS | Encounter Summary ---
Demographics + + + | Address | [address] | | | [place] [address] | + + + | Home Phone [...] + | Author | [facility] | | | and [place] | + + + | Organization | [facility] | | | and [...] + | Matthew Ramirez | ECON | [address] | | | | | [place] | | | | | [address] | | + + + + + Care Team Providers + +------+ + | Care Cultural Historian Name | Role | Phone | + [...] + + | Closed | | | Diagnoses | | OP ST | | | | | Abnormal | Arpan, | BRENDEN | | | | | findings on | [facility] | | | | | diagnostic | MD [address] | [address] | | | | | imaging of | [address] | AVE | | | | | liver and | [address] | [place], [place] | | | | | biliary | [place], | [address] | | | | | tract | [place] [address] | Phone: | | | | | Metastatic | Phone: | [phone] | | | | | breast | [phone] | | | | | | cancer (HCC) | Fax: | | | | | | Procedures | [phone] | | | | | | PET CT | | | | | | | Skull Base | | | | | | | To Mid Thigh | | | +--------+--------+ + + + + Reason for Visit + +--------+ + | Reason | Onset | Comments | | | Date | | + +--------+ + | Family Concerns/ | 10/12/ | | | Communication | 2020 | | + +--------+ + Encounter Details +--------+ + + + + | Date | Type | Department | Care Team | Description | +--------+ + + + + | 10/12/ | Telephone | [facility] | Arpan, | Family Concerns/ | | 2020 | | MED CTR MEDICAL | Luis Richards MD [address] | Communication | | | | ONCOLOGY CLINIC [address] | [facility] | | | | | [address] | [address] [place], [place] | | | | | [place] [address] | [address] | | | | | [phone] | | | +--------+ + + + [...] this encounter Miscellaneous Notes Telephone Encounter - Gris Davis RN - 10/14/2019 8:51 AM PDTPatient notified that the PET scan order is placed and she will be contacted when it is scheduled.Electronically s igned by Gris Davis RN at 10/14/2019 8:53 AM PDTTelephone Encounter - Natalee Davis RN - 10/14/2019 8:43 AM PDTPlease schedule this patient for a PET scan and notify her with the date and time, please alfie as she is having symptoms that need to attended to. Than ks elephone Kentrell pérez - Luis Antony MD - 10/14/2019 8:[address] PDT[address] for PET CT scan placed in [facility], please schedule sooner rather than later due to patient's symptoms. Electronically signed by: Luis Antony MD 10/14/2019 8:20 AM elephone Dawson lemus - Gris Davis RN - 10/13/2019 4:08 PM PDTContacted Ashly about her concerns, ra kedar 02/18. Takes tramadol three times a day. States her pain is in the abdomen. She has not seen Dr. Antony since December 2018. She has been following her cancer care at [facility], she states Dr. Antony places the orders for her PET scans. I informed her Dr. Antony will be in his [place] office only after tomorrow and that I will route this information t o him. Also that she should call Dr. Antony's office for follow up especially since her meds are not helping with the pain. Please advise, thanks. elephone Encounter - Estefanía Hall - 10/13/2019 3: 46 PM PDTDaughter Nella called stating that [facility] wants another PET scan scheduled for November wants Dr. Antony to order it since she is not going to [place] to have it done. Nory reid is very concerned because she (Ashly) is in constant pain and is taking max dose of osvaldo n meds and still having extreme pain. She would like to talk with Dr. Antony about her moms condition. Please return call, thank you.Electronically signed by Estefanía Hall at 07/2019 3:50 PM PDTdocumented in this encounter Plan of Treatment + +---------+--------+ [...]
--- OUTSIDE RECORDS SUMMARY | ~2020-02-10 | XMS | Encounter Summary ---
Demographics + + + | Address | [address] | | | [place] [address] | + + + | Home Phone | | + + + | Preferred Language | Unknown | + + + | Marital Status | | + + + | Congregational Affiliation | Unknown | + + + | Race | White | + + + | Ethnic Group | Not or | + + + Author + + + | Author | [facility] | | | and [place] | + + + | Organization | [facility] | | [...] + | Matthew Ramirez | ECON | [address] | | | | | [place] | | | | | [address] | | + + + + + Care Team Providers + +------+ + | Care Vat House Supervisor Name | Role | Phone | + +------+ + | Ashly Rojo PA-C | PCP | | + +------+ + Encounter Details +--------+ + + + + | Date | Type | Department | Care Team | Description | +--------+ + + + + | 01/05/ | Abstract | [facility] | Provider, | | | 2019 | | SURGERY [address] | [address] | | | | | [place], [place] | [place]. | | | | | [address] | [place] [address] | | | | | [phone] | | | +--------+ + + + [...]
--- OUTSIDE RECORDS SUMMARY | ~2020-02-10 | XMS | Encounter Summary ---
Demographics + + + | Address | [address] | | | [place] [address] | + + + | Home Phone | | + + + | Preferred Language | Unknown | + + + | Marital Status | | + + + | Sabianism Affiliation | Unknown | + + + | Race | White | + + + | Ethnic Group | Not or | + + + Author + + + | Author | [facility] | | | and [place] | + + + | Organization | [facility] | | | [...] + | Matthew Ramirez | ECON | [address] | | | | | [place] | | | | | [address] | | + + + + + Care Team Providers + +------+ + | Care Business Office Technician Name | Role | Phone | + +------+ + | Ashly Rojo PA-C | PCP | | + +------+ + Reason for Visit + +--------+ + | Reason | Onset | Comments | | | Date | | + +--------+ + | Procedure | 12/17/ | | | | 2019 | | + +--------+ + Encounter Details +--------+ + + + + | Date | Type | Department | Care Team | Description | +--------+ + + + + | 12/17/ | Telephone | [facility] | Matthew Shukla MD | Procedure | | 2019 | | GASTROENTEROLOGY | [address] [facility] | | | | | [address] [facility] | [place], [place] | | | | | [address] [place], [place] | [address] | | | | | [address] | [phone] | | | | | [phone] | | | +--------+ + + + [...] this encounter Miscellaneous Notes Telephone Encounter - Nathaly Hatch RN - 12/17/2018 1:17 PM PDTPatient arrived on time in Endo. elephone Enc oumariah - Nathaly Hatch RN - 12/17/2018 10:45 AM PDTPatient concerned because she is still expelling lots of water from rectum after prepping and has to get on road to drive here in about an hour. Said water almost clear and she has soaked through pads. She will bring plast ic bags, baby wipes and pads with her [place] [address] She will call me if thinking she w ill be late due to having to stop on way so I can alert Same day. Her check-in time is 1300. elephone Encounter - Nelli Espinosa CNA - 12/17/2018 10:38 AM PDTPt has a procedure today and wanted to talk to Nathaly regarding her system "not being able to stop going". Please call pt back. Thank yo u documented in thi s encounter Plan of Treatment Not on filedocumented as of this encounter Visit Diagnoses Not on filedocumented in this encounter
--- OUTSIDE RECORDS SUMMARY | ~2020-02-10 | XMS | Encounter Summary ---
Demographics + + + | Address | [address] | | | [place] [address] | + + + | Home Phone | | + + + | Preferred Language | Unknown | + + + | Marital Status | | + + + | Worship Affiliation | Unknown | + + + | Race | White | + + + | Ethnic Group | Not or | + + + Author + + + | Author | [facility] | | | and [place] | + + + | Organization | [facility] | | [...] + | Matthew Ramirez | ECON | [address] | | | | | [place] | | | | | [address] | | + + + + + Care Team Providers + +------+ + | Care Yam Curer Name | Role | Phone | + +------+ + PCP | Unavailable | + +------+ + Encounter Details +--------+ + + + + | Date | Type | Department | Care Team | Description | +--------+ + + + + | 09/06/ | Hospital | [facility] | | | | 2005 | Encounter | MED CTR XRAY [address] | | | | | | [address] | | | | | | [place] [address] | | | | | | [phone] | | | +--------+ + + + [...]
--- OUTSIDE RECORDS SUMMARY | ~2020-02-10 | XMS | Encounter Summary ---
Demographics + + + | Address | [address] | | | [place] [address] | + + + | Home Phone | | + + + | Preferred Language | Unknown | + + + | Marital Status | | + + + | Mu-Ism Affiliation | NRP | + + + [...] Team Providers + +------+ + | Care State Game Warden Name | Role | Phone | + +------+ + | Long Copeland MD | PCP | | + +------+ + Reason for Visit + +--------+ + | Reason | Onset | Comments | | | Date | | + +--------+ + | Scheduling | 07/07/ | | | | 2020 | | + +--------+ + | Care Coordination | 07/07/ | | | | 2020 | | + +--------+ + Encounter Details +--------+ + + + + | Date | Type | Department | Care Team | Description | +--------+ + + + + | 07/07/ | Telephone | [facility] | Rodriguez Bower MD | Scheduling; Care | | 2020 | | Clinics at S | [address] | Coordination | | | | [address] | [facility] [place] | | | | | [address] [facility] | [address] | | | | | Health and Healing, | [phone] | | | | | [address] | | | | | | [facility] [place] | | | | | | [address] | | | | | | [phone] | | | +--------+ + + + [...] this encounter Miscellaneous Notes Telephone Encounter - Cassy Mclain RN - 07/20/2019 5:09 PM PDTDrPeggy Bower spoke to local onc and will see pt next week. Routed to ventilating engineer and pt's daughter Nella informed of updat e. elephone Encounter - Cassy Mclain RN - 07/20/2019 4:30 PM PDTI spoke to Nella. She [facility]ly[facility] and found what they believe to be mor e cancer. Daughter is not aware of a biopsy done during/after this surgery or any new path r eport. Nella states that Dr. 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 Siri cordova wants consultation for Ashly with Dr. Sathish HERNANDEZ. Additionally she told me Ashly has a P ET scan scheduled for @ [facility]. I will ask TC to obtain records, then when available Dr. Bower will review and we will call back with appropriate appointment time. I told Nella she will hear back from us at the end o f this week with add'l input. elephone Mike Lee - 07/20/2019 2:55 PM PDTLisa Haque left voice me michele at 2:44 pm, asks to move the patient's appointment sooner because her local oncologist states that the current cancer medication isn't working anymore. Asks for a call back at [phone] Routing to RNC elephone Suellen Chaidez RN - 07/08/2019 6:13 PM PSTRPRO called and spoke to Nella. I told her that 6 months is about as far out as we can go given her mother's dx and treatment and t hat is only because we are working in conjunction with her local oncologist, Dr. Figueroa. He is going to order 6 month pet-ct to be done locally. Nella will contact Dr. mustafa t o get CT orders. I told her to contact us if they need any assistance with lodging. She may just call later to change appt time. I let her know we are available if she has more questio ns. elephone Mike Lee - 07/08/2019 1:20 PM PSTLisa Haque (daughter, states she has POA for the p atient) calls, has questions about upcoming appointment. Nella states that the patient is doing well on the medication prescribed by Dr. Bower. Want s to know more about the appointment before driving 200+ miles - this is a very long drive f or the patient to sit through. Also asks to reschedule the appointment for later in the day, as they cannot get here at 9: 30 am, and reschedule to be with the MD the patient saw before, Dr. Bower, as that would be easier on the patient. Before rescheduling though, wants to know if the appointment is really necessary - doesn't want to drive that far "just to talk to the doctor for a minute." She also asks if Dr. Bower/Nasir needs the patient to get a PET scan, and if so, please se nd the orders to [place] so it can be done locally. Nella asks for it to be sent to the "same clinic as last time," does not remember the facility name. Nella asks for a call back at [phone] Routing to RNC elephone En counter - Preeti Whitlock RN - 07/07/2019 1:53 PM PSTReturned phone call to Ashly, she s tates she continues to get blockages in her colon. Asked her to let the INTERACTIVE DIGITAL MEDIA SPECIALIST to contact her o ncologist to coordinate care if needed. She verbalizes understanding. She is also requesting an earlier time in the day if possible for her appt in September. --> Yellow Rn Integrity: Please call patient to reschedule if possible to earlier in the day or September appt. elephone Encounter - Janneth Vasques - 07/07/2019 1:04 PM PSTGeneral Message: What is your request today?: PAS called pt per scheduling request: Pt needs follow up (gale yeager) in September. PAS scheduled follow-up appt with Nasir. Pt stated she was in the hospital ([facility] in [place], [place]) last night with "a block age". Pt states this was her third time in the last month. Pt states she has an appt with her INTERACTIVE DIGITAL MEDIA SPECIALIST (Ashly Tompkins) tomorrow 07/08/19 to discuss. Pt is won dering if there is anything we can advise her/recommend. Is it ok to leave a confidential voicemail?: Patient approves confidential and detailed mes sages left on answering machine and voicemail. Rout[facility] to [facility] documented in this encounter Plan of Treatment +--------+ + + + + | Date | Type | Specialty | Care Team | Description | +--------+ + + + + | 05/08/ | Telephone-S | Hematology & | Rodriguez Bower MD | | | 2019 | cheduled | Oncology | [address] | | | | | | [place], [place] | | | | | | [address] | | | | | | [phone] | | | | | | | | +--------+ + + + + documented as of this encounter Visit Diagnoses Not on filedocumented in this encounter
--- OUTSIDE RECORDS SUMMARY | ~2020-02-10 | XMS | Encounter Summary ---
Demographics + + + | Address | [address] | | | [place] [address] | + + + | Home Phone [...] Team Providers + +------+ + | Care Lining Setter Name | Role | Phone | + +------+ + | Long Copeland MD | PCP | | + +------+ + Encounter Details +--------+ + + + + | Date | Type | Department | Care Team | Description | +--------+ + + + + | 01/28/ | Procedure | Radiology/Imaging | | | | 2019 | Pass | Lab at [facility] [address] | | | | | | [address] [facility] | | | | | | Health and Healing, | | | | | | [address] | | | | | | Floor [place], [place] | | | | | | [address] | | | | | | [phone] | | | +--------+ + + + [...] [address] | | | | | | [place], [place] | | | | | | [address] | | | | | | [phone] | | | | | | | | +--------+ + + + + documented as of this encounter Visit Diagnoses Not on filedocumented in this encounter"
--- OUTSIDE RECORDS SUMMARY | ~2020-02-10 | XMS | Encounter Summary ---
Demographics + + + | Address | [address] | | | [place] [address] | + + + | Home Phone | | + + + | Preferred Language | Unknown | + + + | Marital Status | | + + + | Confucianist Affiliation | Unknown | + + + | Race | White | + + + | Ethnic Group | Not or | + + + Author + + + | Author | [facility] | | | and [place] | + + + | Organization | [facility] | | | and [...] + | Matthew Ramirez | ECON | [address] | | | | | [place] | | | | | [address] | | + + + + + Care Team Providers + +------+ + | Care Corncob Pipes Assembler Name | Role | Phone | + +------+ + | Ashly Rojo PA-C | PCP | | + +------+ + Encounter Details +--------+ + + + + | Date | Type | Department | Care Team | Description | +--------+ + + + + | 11/17/ | Abstract | [facility] | Kristie, | | | 2018 | | GASTROENTEROLOGY | [address] | | | | | [address] | [place] | | | | | [address] [place] [address] [place] | [place] [address] | | | | | [address] | | | | | | [phone] | | | +--------+ + + + [...]
--- OUTSIDE RECORDS SUMMARY | ~2020-02-10 | XMS | Encounter Summary ---
Demographics + + + | Address | [address] | | | [place] [address] | + + + | Home Phone [...] | Author | [facility] | | | and [place] | + + + | Organization | [facility] | | | [...] + | Matthew Ramirez | ECON | [address] | | | | | [place] | | | | | [address] | | + + + + + Care Team Providers + +------+ + | Care Systems Software Designer Name | Role | Phone | [...] | 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 | [address] | | | | | adenocarcino | [address] | [place], | | | | | ma (HCC) | [address] | [place] [address] | | | | | Procedures | [place], [place] | Phone: | | | | | CT Chest | [address] | [phone] | | | | | Abdomen | Phone: | Fax: | | | | | Pelvis w | [phone] | [phone] | | | | | Contrast | Fax: | | | | | | CHG CT | [phone] | | | | | | SCAN,ABDOMEN | | | | | | | AND | | | | | | | PELVIS,W | | | | | | | CONTRAST [place] | | | | | | | [...] | 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 | [address] | | | | | adenocarcino | [address] | [place], | | | | | ma (HCC) | [address]VD | [place] [address] | | | | | Procedures | [place], [place] | Phone: | | | | | CT Chest | [address] | [phone] | | | | | Abdomen | Phone: | Fax: | | | | | Pelvis w | [phone] | [phone] | | | | | Contrast | Fax: | | | | | | CHG CT | [phone] | | | | | | SCAN,ABDOMEN | | | | | | | AND | | | | | | | PELVIS,W | | | | | | | CONTRAST [place] | | | | | | | CAT SCAN OF | | | | | | | CHEST | | | | | | | CONTRAST | | | +--------+--------+ + + + + Encounter Details +--------+ + + + + | Date | Type | Department | Care Team | Description | +--------+ + + + + | 12/31/ | Hospital | [facility] | Matthew Shukla MD | 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
--- OUTSIDE RECORDS SUMMARY | ~2020-02-10 | XMS | Encounter Summary ---
Demographics + + + | Address | [address] | | | [place] [address] | + + + | Home Phone | | + + + | Preferred Language | Unknown | + + + | Marital Status | | + + + | Congregational Affiliation | NRP | + + + [...] Providers + +------+ + | Care Research Intern Name | Role | Phone | + +------+ + | Long Copeland MD | PCP | | + +------+ + Reason for Visit + +--------+ + | Reason | Onset | Comments | | | Date | | + +--------+ + | Refill Request | 08/15/ | | | | 2020 | | [...] CENTER [place] | | | | | [address] [place] for | [address] | | | | | Health and Healing, | [phone] | | | | | [address] | | | | | | [facility] [place] | | | | | | [address] | | | | | | [phone] | | | +--------+--------+ + + + [...] Telephone Encounter - Cassy Mclain RN - 08/16/2019 2:39 PM PDTChart review indicates t he scheduled drug is within prescribed timeline for refill. I am routing the refill to the p rescribing provider for final review and signature. elephone Encounter - Preeti Edmondson MA - 08/16/2019 2:17 PM PDTFormatting of this note might be different f rom the original. Last appointment with Rodriguez Bower MD was on 07/29/19. Next appointment with Rodriguez Bower MD is scheduled on NO FUTURE APPOINTMENTS. Last LIP progress note reviewed. Is there documentation to indicate that medication being r equested has been changed or discontinued? No Allergy list reviewed--Is the medication being requested on the patient's current allergy l ist? No Previous Prescription Details copied below: Date and Time Department Ordering/Authorizing 07/29/2019 4:05 PM [facility] Rodriguez Bower MD Outpatient Medication Detail Disp Refills traMADoL 50 mg oral tablet 45 tablet 0 Sig: Take 1 tablet by mouth every eight hours as needed for moderate pain. Indications: osvaldo n Sent to pharmacy as: traMADoL 50 mg tablet (ULTRAM) Class: eRx Route: oral Order: [id number] E-Prescribing Status: Receipt confirmed by pharmacy (07/29/2019 4:05 PM PDT) Controlled Substance Requested: Routing to RN Coordinator for review prior to sending to [facility] Dangelo elephone Encounter - Mike Cadet - 08/16/2019 10:28 AM PDTMedication Refill Request Ambulatory Oncology What is the name of the provider for this prescription refill request?: Medication prescrib ed by any other LIP Have you already contacted your pharmacy to refill?: Yes, but this pharm acy will not send a request for this category of medication and redirected patient to contac t clinic directly. Name of medication: Tramadol ACL Dose: 50 mg Frequency - How often are you taking it?: 3 per day How much of the prescription do you have left - When will you run out?: none left Pharmacy the patient wants the prescription refilled at: [id number] - [place], [place] - [address] [phone] Is it ok to leave a confidential voicemail?: Patient approves confidential and detailed konstantin sagehawa left on answering machine and voicemail. Patient reminded of Clinic Refill Policy: 48-72 business hours to process refill requests. documented in this encount er Plan of Treatment +--------+ + + + + | Date | Type | Specialty | Care Team | Description | +--------+ + + + + | 05/08/ | Telephone-S | Hematology & | Rodriguez Bower MD | | | 2020 | cheduled | Oncology | [address] | | | | | | [place], [place] | | | | | | [address] | | | | | | [phone] | | | | | | | | +--------+ + + + + documented as of this encounter Visit Diagnoses Not on filedocumented in this encounter"
--- OUTSIDE RECORDS SUMMARY | ~2020-02-10 | XMS | Encounter Summary ---
Demographics + + + | Address | [address] | | | [place] [address] | + + + | Home Phone | | + + + | Preferred Language | Unknown | + + + | Marital Status | | + + + | Roman Catholic Affiliation | NRP | + + + [...] Team Providers + +------+ + | Care Trimmer Sawyer Name | Role | Phone | [...] Ave | | | | | Ave Center for | [place], [place] | | | | | Health and Healing, | [address] | | | | | [address] | [phone] | | | | | [place], [place] | | | | | | [address] | | | | | | [phone] | | | +--------+ + + + [...] [address] | | | | | | [place], [place] | | | | | | [address] | | | | | | [phone] | | | | | | | | +--------+ + + + + documented as of this encounter Visit Diagnoses Not on filedocumented in this encounter"
--- OUTSIDE RECORDS SUMMARY | ~2020-02-10 | XMS | Encounter Summary ---
Demographics + + + | Address | [address] | | | [place] [address] | + + + | Home Phone [...] Providers + +------+ + | Care Assistant Manager/Embalmer Name | Role | Phone | + [...] & | Diagnoses | Gabriel, | Blake Urokevinn | | | | Gynecology | Intrinsic [...] | | | | | stress | [facility], [place] | [place], [place] | | | | | incontinence | [address] | [address] | | | | | Procedures | Phone: | Phone: | | | | | REQUEST TO | [phone] | [phone] | | | | | SURGERY | Fax: | Fax: | | | | | [employer] | [phone] | [phone] | | | | | [place] | | | | | | | [place] | | | | | | | [place] | | | | | | [...] evaluation | | 2010 | Visit | [facility] | MD Gillian [address] | (Primary Dx); | | | | [address] | [address] | Urinary incontinence | | | | [address] | [place], [place] | | | | | [place], [facility] floor | [address] | | | | | [place], [place] | [phone] | | | | | [address] | | | | | | [phone] | | | +--------+---------+ + + + [...] MD - 10/25/2010 10:59 AM PDTDirections to [facility] Clinic in [facility] Exit the Lobby of the [facility] and turn right to take elevator 2 to the 9th [facility]. Follow signs directing you to the [facility]. The [facility] is located on the 4th floor of the [facility] and [facility]aling ([facility]) just next to the exit for the tram. To return to the [facility] or to any of the facilities located on [facility], you will need a tram pass. These are available at no charge to patients with scheduled appointme nts and to those people accompanying them. For a tram pass, ask the office coordinator receptionist in the lob by of the [facility] or the person who checks you in for your [facility] appointment. Electronically minnie d by Jackie Sprague MD at 10/25/2010 10:59 AM PDT documented in this encounter Progress Notes Avis Rios MD - 10/25/2010 2:28 PM PDTI was present with Dr. Sprague during the h istory, exam and procedures performed. I discussed the case with Dr. Sprague and agree with nadia findings and plan as documented in her [...] Surgical History Procedure Date Total abdominal hysterectomy 1974 age 33, [...] 300 mg by mouth three times daily. Dpeafhjnhmp-Zowfnxsna-Ofv C-Mn (GLUCOSAMINE CHONDROITIN MAXSTR) 500-400 mg Oral [...] the evening. triamcinolone 55 mcg Nasal Aerosol, Boissevain Instill 2 Sprays into each nostril once [...] with partner in [place]- 34yrs. Son in [place]. 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 Now traveling [facility]. Review of Systems: Per HPI. All other systems negative PHYSICAL EXAM: BP 140/90 | Pulse 86 | Ht 1.746 m (5' 8.74") | Wt 104.373 kg (230 lb 1.6 oz) | SpO2 99% | B VT 34.24 kg/(m^2) GENERAL: Healthy Appearing, No acute [...] Dr. Rios. documented in t his encounter H&P Notes Avis Rios MD - 10/25/2010 2:39 PM PDTFormatting of this note might be differe nt from the original. Pre-Procedure History & Physical Date of Admission: [...] Surgical History Procedure Date Total abdominal hysterectomy 1974 age 33, cervical cancer, no chemo/radiation Tubal ligation 1975 Appendectomy 1950 Tonsillectomy and adenoidectomy 1947 Cholecystectomy, laparoscopic 1996 Knee arthroscopy 2001 Colectomy partial / total 2004 diverticulosis, removed 12 inch Bladder surgery 1971 removed urethral scar tissue and part of [...] 300 mg by mouth three times daily. Kqyhvtupyns-Chbnqwvsu-Dye C-Mn (GLUCOSAMINE CHONDROITIN MAXSTR) 500-400 mg Oral [...] the evening. 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 Son in [place]. 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 Now traveling [facility]. Review of Systems: Per HPI. All other systems negative PHYSICAL EXAM: BP 140/90 | Pulse 86 | Ht 1.746 m (5' 8.74") | Wt 104.373 kg (230 lb 1.6 oz) | SpO2 99% | B VT 34.24 kg/(m^2) GENERAL: Healthy Appearing, No acute [...] with the Lynx sling not for cure. documented in this encounter Plan of Treatment +--------+ + + + + | Date | Type | Specialty | Care Team | Description | +--------+ + + + + | 05/08/ | Telephone-S | Hematology & | Rodriguez Bower MD | | | 2020 | suyapa | Oncology | [address] | | | | | | [place], [place] | | | | | | [address] | | | | | | [phone] | | | | | | | [...] view image for the detailed interpretation from [employer] results. | CARDIOLOGY | + + + + + + + + | Performing | Address | City/State/Zipcode | Phone Number | | Organization | | | | + + + + + | [facility] | [address] | [place], [place] | | | CARDIOLOGY | [address] | [address] | | + + + + + [...] + + + + | [facility] | [address] | [place] [address] | | | PATHOLOGY | [address] [...] + | [facility] | [address] | [place] [address] | | | PATHOLOGY | [address] | | | + + + + + documented in this encounter Visit Diagnoses + + | Diagnosis | + + | Pre-op evaluation - Primary Preoperative examination, unspecified | + + | Urinary incontinence Unspecified urinary incontinence | + + documented in this encounter
--- OUTSIDE RECORDS SUMMARY | ~2020-02-10 | XMS | Encounter Summary ---
Demographics + + + | Address | [address] | | | [place] [address] | + + + | Home Phone [...] Team Providers + +------+ + | Care Sample Sewer Name | Role | Phone | + +------+ + | Long Copeland MD | PCP | | + +------+ + Reason for Visit + +--------+ + | Reason | Onset | Comments | | | Date | | + +--------+ + | Referral To Surgery | 10/17/ | | | - General | 2020 | | + +--------+ + Encounter Details +--------+ + + + + | Date | Type | Department | Care Team | Description | +--------+ + + + + | 10/17/ | Abstract | Digestive Health | Clinic, Surgery | Referral To Surgery | | 2020 | | Center at [facility] [address] | | - General | | | | [address] [facility] | | | | | | for Health and | | | | | | Healing, [address] | | | | | | [place], [place] | | | | | | [address] | | | | | | [phone] | | | +--------+ + + + [...] | cheduled | Oncology | [address] | | | | | | [place], [place] | | | | | | [address] | | | | | | [phone] | | | | | | | | +--------+ + + + + documented as of this encounter Visit Diagnoses Not on filedocumented in this encounter"
--- OUTSIDE RECORDS SUMMARY | ~2020-02-10 | XMS | Encounter Summary ---
Demographics + + + | Address | [address] | | | [place] [address] | + + + | Home Phone [...] | Author | [facility] | [...] + | Matthew Ramirez | ECON | [address] | | | | | [place] | | | | | [address] | | + + + + + Care Team Providers + +------+ + | Care Hr Associate Name | Role | Phone | + +------+ + PCP | Unavailable | + +------+ + Encounter Details +--------+ + + + + | Date | Type | Department | Care Team | Description | +--------+ + + + + | 11/27/ | Hospital | [facility] | | | | 1999 | Encounter | MED CTR GENERIC OP | | | | | | CONV DEPT [address] | | | | | | [place], | | | | | | [place] [address] | | | | | | [phone] | | | +--------+ + + + [...]
--- OUTSIDE RECORDS SUMMARY | ~2020-02-10 | XMS | Encounter Summary ---
Demographics + + + | Address | [address] | | | [place] [address] | + + + | Home Phone [...] Team Providers + +------+ + | Care Production Supervisor Name | Role | Phone | [...] | Oncology | Tumor | MD Maurice [address] | [facility] [address] | | | | | Procedures | [address] | [address] | | | | | CONSULT TO | [facility] | [place] [facility] | | | | | HEMATOLOGY / | [place] | Health and | | | | | ONCOLOGY | [address] | Healing, | | | | | PRACTICE | Phone: | [address] | | | | | | [phone] | [place], [place] | | | | | | Fax: | [address] | | | | | | [phone] | Phone: | | | | | | | [phone] | | | | | | | Fax: | | | | | | | [phone] | + +---------+ + + + + Encounter Details +--------+ + + + + | Date | Type | Department | Care Team | Description | +--------+ + + + + | 03/04/ | Equipment Technician | Surgical Oncology | Cristel Galicia MD | Tumor (Primary Dx) | | 2019 | | at [facility] [address] | [address] | | | | | Ave Center for | [place], [place] | | | | | Health and Healing, | [address] | | | | | [address] | [phone] | | | | | [place], [place] | | | | | | [address] | | | | | | [phone] | | | +--------+ + + + [...] Bower MD | | | 2019 | suyapa | Oncology | [address] | | | | | | [place], [place] | | | | | | [address] | | | | | | [phone] | | | | | | | | +--------+ + + + + documented as of this encounter Visit Diagnoses + + | Diagnosis | + + | Tumor - Primary | + + documented in this encounter"
--- OUTSIDE RECORDS SUMMARY | ~2020-02-10 | XMS | Encounter Summary ---
Demographics + + + | Address | [address] | | | [place] [address] | + + + | Home Phone [...] | Author | [facility] | | | and [place] | + + + | Organization | [facility] | | | [...] + | Matthew Gomez | ECON | [address] | | | | | [place] | | | | | [address] | | + + + + + Care Team Providers + +------+ + | Care Glass Handler Name | Role | Phone | + +------+ + | Ashly Rojo PA-C | PCP | | + +------+ + Encounter Details +--------+ + + + + | Date | Type | Department | Care Team | Description | +--------+ + + + + | 03/06/ | Hospital | [facility] | Guillermo Randall | Josué toe of right | | 2017 | Encounter | HOSPITAL [facility] INTRA OP | Fab, DPM [address] | foot | | | | [address] [place] | [facility], | | | | | [place], [place] | [place] [address] | | | | | [address] | [phone] | | | | | [phone] | | | +--------+ + + + [...] Care Everywhere.Foot Surgery: Maurice pace Fifth Toe (Angolan)Foot Surgery: Flexible and Rigid Hammertoes (Angolan)Mallet, Hammer , and Claw Toes, Treating (Angolan)Mallet, Hammer, and Claw Toes, What Are (Angolan)document ed in this encounter Medications at Time [...] Randall DPM - 03/06/2017 10:34 PM PDT [facility] [address] [place] [address] OPERATIVE REPORT GUILLERMO RANDALL DPM Patient: ASHLY GOMEZ Admitting: GUILLERMO RANDALL MR #: [id number] LOC: PT TYPE: Adm Date: 03/06/2017 : 1940 Surgery was performed at [facility] in [place], [place] on 03/06/2017. PREOPERATIVE DIAGNOSIS: Hammertoes, digits [...] Transcribed on 03/07/2017 00:13:31 by poncho khan# [id number] Confirmation #: [id number] rief Op Note - Ollie andradeGuillermo DPM - 03/06/2017 12:35 PM PDTFormatting of this note might be different fro m the original. Brief Operative Note Ashly Gomez 76 y.o. female 1940 [id number] Proc. Date 03/06/2017 Preop Dx Hammer Toes Postop Dx same Procedure Correction Hammer Toes 2nd , 3rd, and 4th Toes (Right) Anesthesia 10ml 1% lidocaine, 16ml 0.5% marcaine plain, MAC per anesthesia Surgeon Guillermo Randall DPM - Primary Photographer EBL less than 50 mL Findings Findings consistent with scheduled procedure. No other abnormalities found. Complications none Specimens * No specimens in log * Drains Electronically signed by: Guillermo Randall DPM 03/06/2017 12:35 [facility] 12 :36 PM PDTdocumented in this encounter [...]
--- OUTSIDE RECORDS SUMMARY | ~2020-02-10 | XMS | Encounter Summary ---
Demographics + + + | Address | [address] | | | [place] [address] | + + + | Home Phone | | + + + | Preferred Language | Unknown | + + + | Marital Status | | + + + | Holiness Affiliation | Unknown | + + + | Race | White | + + + | Ethnic Group | Not or | + + + Author + + + | Author | [facility] | | | and [place] | + + + | Organization | [facility] | | | [...] + | Matthew Ramirez | ECON | [address] | | | | | [place] | | | | | [address] | | + + + + + Care Team Providers + +------+ + | Care Retail Maintenance Technician Name | Role | Phone [...] | Gastroenterol | Diagnoses | Alia, | Gayla | | | | angelica | Left lower | RAMESH Limon | MD Matthew | | | | | quadrant | [address] | [address] | | | | | pain | [place] | [place], | | | | | Procedures | [address] | [place] [address] | | | | | office visit | [place] | Phone: | | | | | | [place] [address] | [phone] | | | | | | Phone: | Fax: | | | | | | [phone] | [phone] | | | | | | Fax: | | | | | | | [phone] | | +--------+--------+ + + + + Encounter Details +--------+---------+ + + + | Date | Type | Department | Care Team | Description | +--------+---------+ + + + | 12/14/ | Office | [facility] | Matthew Shukla MD | Chronic abdominal | | 2019 | Visit | GASTROENTEROLOGY | [address] [facility] | pain (Primary Dx); | | | | [address] | [place], [place] | Diarrhea, | | | | [address] [place], [place] | [address] | unspecified type; | | | | [address] | [phone] | Rectal bleeding; | | | | [phone] | | Benzodiazepine | | | | [...] at 4pm on 12/16 and remain ing /4 at 0700 on 12/17, finishing by 0830; 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 Encouraged patient to seek support group for stress due to having spouse with dementia/ariella castaneda, she agreed. do cumented in this encounter H&P Notes Matthew Shukla MD - 12/14/2018 2:30 PM PDT Date of Office Visit: 12/14/18 Chief Complaint: Abdominal Pain History of Present Illness: Ashly Ramirez is a 78 y.o. female who presents to the GI cli vish with complaints of left upper quadrant abdominal pain for the past 2 to 3 months. The p atient also complains of frequent reflux symptoms as well as nausea and vomiting. She has h ad unintentional weight loss of approximately 60 pounds over the past 1 to 2 years. She watkins s have alternating diarrhea and constipation however diarrhea predominates. She occasionall y sees blood in her stool and on the toilet paper. CT scan was performed earlier this year which was unremarkable except for sigmoid diverticulosis. There is no family history of col on or rectal cancer. Colonoscopy done last year revealed chronic inflammation however this was mild and felt to be nonspecific. The patient denies a prior history of inflammatory bow el disease including Crohn's disease or ulcerative colitis. The patient states that she has had problems with her stomach and her bowels for many years. Her abdominal pain improves w ith defecation. The patient did have partial colectomy years ago due to a infection which m ay have been diverticulitis. Past Medical History: Past Medical History: Diagnosis Date Abdominal pain Abnormal Hepatic Enzyme Acid reflux Acute reaction to stress Allergic rhinitis Anxiety disorder Arthritis Benign paroxysmal positional vertigo Benign paroxysmal vertigo Bladder irritability Bronchitis Cataract, right eye Cervical cancer (HCC) Chronic sinusitis Complete intestinal obstruction, unspecified as to cause (HCC) COPD, mild (HCC) Diverticulitis Dizziness Esophageal reflux Essential hypertension Eustachian tube dysfunction, left Fatigue Fibromyalgia Heart murmur History of alcohol abuse History of cervical cancer History of depression Hyperlipidemia Hypertension Hypothyroidism Irritable bowel disease Left lower quadrant pain Mitral regurgitation Moderate persistent asthma Neoplasm of uncertain behavior of skin Osteoarthritis Primary localized osteoarthritis of left knee Sepsis (HCC) 2016 Hx of urosepsis and sepsis Sinus infection Thyroid activity decreased Vertigo Vision loss of left eye secondary to amblyopia as a child Past Surgical History: Past Surgical History: Procedure Laterality Date APPENDECTOMY 1950 ARTHROPLASTY Left 02/13/2018 Procedure: ARTHROPLASTY 3rd and 4th Digits with Impalnt Revision; Surgeon: Jose Randall DPM; Location: [facility] SURGERY BLADDER REPAIR 1971 BLADDER SUSPENSION 2007 CARPAL TUNNEL RELEASE Bilateral CATARACT REMOVAL Right 03/2016 CHOLECYSTECTOMY, LAPAROSCOPIC 1996 COLECTOMY 2004 recurrent diverticulitis COLONOSCOPY 01/2018 One diminutive polyp FINGER SURGERY Left 2007 Thumb surgery for osteoarthritis FINGER SURGERY Left 11/2008 FINGER SURGERY Right 04/2012 Thumb surgery HAMMER TOE SURGERY Right 03/06/2017 Procedure: Correction Hammer Toes 2nd , 3rd, and 4th Toes; Surgeon: ANNIE Cuevas; Location: [facility] SURGERY HAMMER TOE SURGERY Left 07/04/2017 Procedure: CORRECTION HAMMERTOES 2, 3, 4; Surgeon: Jose Randall DPM; Location: [facility] SURGERY HAMMER TOE SURGERY Left 2018 x3 HYSTERECTOMY 1996 KNEE ARTHROSCOPY Right 2001 KNEE JOINT REPLACEMENT Bilateral PUBOVAGINAL SLING 10/16/2010 TVT Retropubic sling at [facility] TONSILLECTOMY AND ADENOIDECTOMY 194 TOTAL KNEE ARTHROPLASTY Right 07/11/2011 TUBAL LIGATION URETHROPEXY 07/11/2010 Revision sling urethropexy Family History: Family History Problem Relation Age of Onset Diabetes Mother Heart failure Mother Other (see comment) Father Multiple myeloma Allergies: Allergies Allergen Reactions Sulfa Antibiotics Anaphylaxis Codeine Sulfate Not Noted Intolerance No active intolerances/contraindications Medications: has a current medication list which includes the following prescription(s): acetaminophen, proair hfa, alprazolam, vitamin c, calcium + d, cholecalciferol, doxepin, duloxetine, duloxe micha, fluticasone, fluticasone-salmeterol, glucosamine chondr 500 complex, levothyroxine, li sinopril, oxycodone-acetaminophen, and cyanocobalamin. Review of Systems: A 10-point review of systems was performed and was negative except as n oted in the history of present illness. Physical Exam: Vitals:BP 162/70 | Pulse 87 | Temp 37.1 C (98.8 F) (Temporal) | Resp 16 | Wt 88.8 k g (195 lb 12.3 oz) | SpO2 94% | BMI 28.91 kg/m General: This is a well-developed,well-nurished female in no apparent distress, alert and o riented times 3. HEENT: Reveals normocephalic, atraumatic with extraocular muscles intact. Oropharynx is mary ellen ar without obstruction. Neck: Supple without lymphadenopathy or thyromegaly. Lungs: Clear to auscultation without rales or wheezes. Cardiac: Reveals regular rate and rhythm with normal S1 and S2 and no murmurs, rubs or gall ops. Abdomen: Soft and nontender without masses or organmegaly. Extremities: Without cyanosis, clubbing or edema. Neuro: Awake, alert, oriented x3. Normal station and gait. Skin: Warm and dry, no erythematous rash. Lab Results Component Value Date ANIONGAP 19 08/04/2018 ESR 14 08/04/2018 No results found for this or any previous visit. No results found for: LACTOQL, CAMPY, CULTURE, SHIGATOXINI, SHIGATOXINII, GIARDIAAG, CRSPAG , CDIFFICILEGD, CDIFF, LABOVA Last CT abd - No results found for this or any previous visit. Last MRI abd - No results found for this or any previous visit. Last US abd - No results found for this or any previous visit. Assessment and Plan: 78-year-old female with multiple gastrointestinal complaints including nausea and vomiting, gastroesophageal reflux, unintentional weight loss, left upper quadran t abdominal pain, as well as alternating diarrhea and constipation with rectal bleeding. Di fferential diagnosis includes inflammatory bowel disease disease such as Crohn's disease or ulcerative colitis as well as gastritis, celiac disease, anorectal disorder including hemorr hoids. CT scan has been unremarkable with no evidence of malignancy however left-sided diverticulo sis was noted. The indications risk benefits and possible complications for upper endoscopy were discussed with the patient and they wish to proceed with EGD. At this time I recommend that colonoscopy be performed for further evaluation. Indications risks benefits and possible complications were discussed with the patient who wishes to pro ceed with colonoscopy at this time. I strongly recommend that the procedure to be performed with anesthesia and propofol due to the patient's advanced age, multiple medical problems, and use of narcotic pain medications . documented in this enc ounter Plan of Treatment Not on filedocumented as [...]
--- OUTSIDE RECORDS SUMMARY | ~2020-02-10 | XMS | Encounter Summary ---
Demographics + + + | Address | [address] | | | [place] [address] | + + + | Home Phone [...] Team Providers + +------+ + | Care Vacuum Cleaner Operator Name | Role | Phone | + +------+ + | Long Copeland MD | PCP | | + +------+ + Reason for Visit + +--------+ + | Reason | Onset | Comments | | | Date | | + +--------+ + | Social Work Notes | 10/18/ | social work | | | 2020 | | + +--------+ + Encounter Details +--------+ + + + + | Date | Type | Department | Care Team | Description | +--------+ + + + + | 10/18/ | Telephone | [facility] | Work, Social | Social Work Notes | | 2020 | | [facility] | | (social work) | | | | [facility] [address] | | | | | | [facility] | | | | | [facility], | | | | | | [address] | | | | | | [place], [place] | | | | | | [address] | | | | | | [phone] | | | +--------+ + + + [...] this encounter Miscellaneous Notes Telephone Encounter - Mamie Richard MSW - 10/19/2019 1:20 PM PDTSW referral from YASMEEN Powell to assist with emotional support and practical needs. Left a vm for dtelisa Carmen ([phone]) with my contact information and availability. Encour aged a return call at her convenience. GEORGIA Muller, [facility] Asbestos Brake Lining Finisher [phone] Pager # [phone] documented in this encounter Plan of Treatment +--------+ + + + + | Date | Type | Specialty | Care Team | Description | +--------+ + + + + | 05/08/ | Telephone-S | Hematology & | Rodriguez Bower MD | | | 2020 | cheduled | Oncology | [address] | | | | | | [place], [place] | | | | | | [address] | | | | | | [phone] | | | | | | | | +--------+ + + + + documented as of this encounter Visit Diagnoses Not on filedocumented in this encounter"
--- OUTSIDE RECORDS SUMMARY | ~2020-02-10 | XMS | Encounter Summary ---
Demographics + + + | Address | [address] | | | [place] [address] | + + + | Home Phone [...] + + + | Author | [facility] | + + + | Organization | [facility] | + + + | Address | Unknown | + + + | Phone | Unavailable | + + + Support + + +---------+ + | Name | Relationship | Address | Phone | + + +---------+ + | Nella Haque | ECON | Unknown | | + + +---------+ + Care Team Providers + +------+ + | Care Interior Design Assistant Name | Role | Phone | + +------+ + | Long Copeland MD | PCP | | + +------+ + Encounter Details +--------+ + + + + | Date | Type | Department | Care Team | Description | +--------+ + + + + | 10/25/ | Hospital | Cardiac | S[facility] | | | 2010 | Encounter | Non-Invasive Testing | [address] | | | | | at [facility] | [facility] | | | | | [address] | [place] [address] | | | | | [address] | | | | | | [place], [address] [place] [address] | | | | | | [place], [place] | | | | | | [address] | | | | | | [phone] | | | +--------+ + + + [...] nostril | | | | | | [place] | once daily. | | | | | + + + +---------+--------+ + documented as of this encounter Plan of Treatment +--------+ + + + + | Date | Type | Specialty | Care Team | Description | +--------+ + + + + | 05/08/ | Telephone-S | Hematology & | Rodriguez Bower MD | | | 2019 | cheduseble | Oncology | [address] | | | | | | [place], [place] | | | | | | [address] | | | | | | [phone] | | | | | | | [...] view image for the detailed interpretation from [employer] results. | CARDIOLOGY | + + + + + + + + | Performing | Address | City/State/Zipcode | Phone Number | | Organization | | | | + + + + + | [facility] | [address] | [place], [place] | | | CARDIOLOGY | [facility] | [address] | | + + + + + documented in this encounter Visit Diagnoses Not on filedocumented in this encounter
--- OUTSIDE RECORDS SUMMARY | ~2020-02-10 | XMS | Encounter Summary ---
Demographics + + + | Address | [address] | | | [place] [address] | + + + | Home Phone [...] Team Providers + +------+ + | Care Preparer Making Department Name | Role | Phone | + +------+ + | Long Copeland MD | PCP | | + +------+ + Reason for Visit + +--------+ + | Reason | Onset | Comments | | | Date | | + +--------+ + | Erroneous Encounter | 10/04/ | | | - Disregard | 2010 | | + +--------+ + Benefits Check (Routine) +--------+--------+ + + [...] | | | | | | | [facility] | | | | | | | [address] | | | | | | | [place], | | | | | | | floor | | | | | | | [place], [place] | | | | | | | [address] | | | | | | | Phone: | | | | | | | [phone] | | | | | | | Fax: | | | | | | | [phone] | +--------+--------+ + + + + Encounter Details +--------+ + + + + | Date | Type | Department | Care Team | Description | +--------+ + + + + | 10/03/ | [facility] Avis Rios | Erroneous Encounter | | 2010 | | [facility] | MD Gillian [address] | - Disregard | | | | [place] [address] | | | | | [address] | [place], [place] | | | | | [place], [facility] floor | [address] | | | | | [place], [place] | [phone] | | | | | [address] | | | | | | [phone] | | | +--------+ + + + [...] | +--------+ + + + + | 12/28/ | Telephone-S | Hematology & | Rodriguez Bower MD | | | 2019 | cheduled | Oncology | [address] | | | | | | [place], [place] | | | | | | [address] | | | | | | [phone] | | | | | | | | +--------+ + + + + documented as of this encounter Visit Diagnoses + + | Diagnosis | + + | ERRONEOUS ENCOUNTER - NO DIAGNOSIS - Primary | + + documented in this encounter"
--- OUTSIDE RECORDS SUMMARY | ~2020-02-10 | XMS | Encounter Summary ---
Demographics + + + | Address | [address] | | | [place] [address] | + + + | Home Phone [...] | Author | [facility] | | | and [place] [...] + | Matthew Ramirez | ECON | [address] | | | | | [place] | | | | | [address] | | + + + + + Care Team Providers + +------+ + | Care Contract Engineer Name | Role | Phone | + +------+ + | Ashly Rojo PA-C | PCP | | + +------+ + Encounter Details +--------+ + + + + | Date | Type | Department | Care Team | Description | +--------+ + + + + | 01/01/ | Abstract | [facility] | No, Physician p | Acute reaction to | | 2018 | | SURGERY [address] | | stress; 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
--- OUTSIDE RECORDS SUMMARY | ~2020-02-10 | XMS | Encounter Summary ---
Demographics + + + | Address | [address] | | | [place] [address] | + + + | Home Phone [...] Author | [facility] | | | and [place] | + + + | Organization | [facility] | | | [...] + | Matthew Ramirez | ECON | [address] | | | | | [place] | | | | | [address] | | + + + + + Care Team Providers + +------+ + | Care Scrap Preparer Name | Role | Phone | [...] | | | unspecified | | [place] [address] | | | | | type | | Phone: | | | | | Chronic | | [phone] | | | | | abdominal | | Fax: | | | | | pain | | [phone] | | | | | Benzodiazepi | [...] | | | | | | | AR | | | | | | | ESOPHAGOGAST | | | | | | | RODUODENOSCO | | | | | | | PY TRANSORAL | | | | | | | DIAGNOSTIC | | | | | | | AR EGD | | | | | | | TRANSORAL | | | | | | | BIOPSY | | | | | | | SINGLE/MULTI | | | | | | | PLE AR | | | | | | | COLONOSCOPY | | | | | | | FLX DX | | | | | | | W/COLLJ SPEC | | | | | | | WHEN PFRMD | | | | | | | AR | | | | | | | COLONOSCOPY | | | | | | | W/BIOPSY | | | | | | | SINGLE/MULTI | | | | | | | PLE AR | | | | | | | COLSC FLX | | | | | | | W/RMVL OF | | | | | | | TUMOR POLYP | | | | | | | LESION SNARE | | | | | | | TQ AR | | | | | | | [...] + + | 12/17/ | Surgery | [facility] | Matthew Shukla MD | EGD | | 2019 | | MED CTR [facility] INTRA OP | [address] | | | | | [address] | [place] | | | | | [place] | [address] | | | | | [address] | [phone] | | | | | [phone] | | | +--------+---------+ + + + [...] + + + | Blood Pressure | 153/82 | 12/17/2018 1:45 PM | | | | | PDT | | + + + + + | Pulse | 94 | 12/17/2018 1:45 PM | | | | | PDT | | + + + + + | Temperature | - | - | | + + + + + | Respiratory Rate | 16 | 12/17/2018 1:45 PM | | | | | PDT | | + + + + + | Oxygen Saturation | 96% | 12/17/2018 1:45 PM | | | [...] + documented as of this encounter H&P Notes Matthew Shukla MD - 12/17/2018 3:14 PM PDTPatient interviewed, history and physical, symp toms reviewed VS signs noted, no change from previous H&P or assessment and plan.Electronic ally signed by Matthew Shukla MD at 12/17/2018 3:14 PM PDTMatthew Shukla MD - 12/17/2018 3:13 PM PDT PRE-ENDOSCOPY HISTORY AND PRE-SEDATION ASSESSMENT PATIENT NAME: Ashly Ramirez : 1940 TODAY'S DATE: 12/17/2018 PLANNED PROCEDURE: endoscopy and colonoscopy PERTINENT HISTORY/INDICATION FOR PROCEDURE: Ashly Ramirez is a 78 y.o. female who is un dergoing endoscopy for GERD, N/V, bloody stools, diarrhea, abd pain. PAST HISTORY: Past Medical History: Diagnosis Date Abdominal pain [...] eye secondary to amblyopia as a child PAST SURGICAL HISTORY Past Surgical History: Procedure Laterality Date APPENDECTOMY 1950 ARTHROPLASTY Left 02/13/2018 Procedure: ARTHROPLASTY 3rd and 4th Digits with Impalnt Revision; Surgeon: Jose Randall DPM; Location: [facility] RONDE SURGERY BLADDER REPAIR 1970 BLADDER SUSPENSION 2006 CARPAL TUNNEL RELEASE Bilateral CATARACT REMOVAL Right 03/2016 CHOLECYSTECTOMY, LAPAROSCOPIC 1997 COLECTOMY 2004 recurrent diverticulitis COLONOSCOPY 01/2018 One diminutive polyp FINGER SURGERY Left 2007 Thumb surgery for osteoarthritis FINGER SURGERY Left 11/2008 FINGER SURGERY Right 04/2012 Thumb surgery HAMMER TOE SURGERY Right 03/06/2017 Procedure: Correction Hammer Toes 2nd , 3rd, and 4th Toes; Surgeon: ANNIE Cuevas; Location: [facility] SUR[facility]ERY HAMMER TOE SURGERY Left 07/04/2017 Procedure: CORRECTION HAMMERTOES 2, 3, 4; Surgeon: Jose Randall DPM; Location: [facility]ERY HAMMER TOE SURGERY Left 2017 x3 HYSTERECTOMY 1997 KNEE ARTHROSCOPY Right 2001 KNEE JOINT REPLACEMENT Bilateral PUBOVAGINAL SLING 10/16/2010 TVT Retropubic sling at [facility] TONSILLECTOMY AND ADENOIDECTOMY 194 TOTAL KNEE ARTHROPLASTY Right 07/11/2011 TUBAL LIGATION URETHROPEXY 07/11/2010 Revision sling urethropexy HOME MEDS: Scheduled Meds: Continuous Infusions: lactated ringers 1,000 mL (12/17/18 1414) lactated ringers sodium chloride 0.9% PRN Meds:.albuterol-ipratropium, dextrose ALLERGIES Allergies Allergen Reactions Sulfa Antibiotics Anaphylaxis Codeine Sulfate ASA CLASSIFICATION: Class 3 - A patient with severe systemic disease that limits activity b ut is not incapacitating EXAMINATION: BP 153/82 | Pulse 94 | Resp 16 | Ht 1.753 m (5' 9") | Wt 88.5 kg (195 lb 1.7 oz) | SpO 2 96% | ? No | BMI 28.81 kg/m General: Alert and oriented Throat: Normal Lungs: Clear Heart: Regular rate and rhythm with out significant murmur Abdomen: flat, normal bowel sounds. Soft, nontender 1. Available medical records have been reviewed. 2. Medication list reviewed. IMPRESSION: . Patient appropriate for procedure. PLAN: 1. Proceed with procedure as stated above with moderate sedation/analgesia 2. Procedure, indications, risks and alternatives explained to patient/family and they agre ed to proceed and consent was signed. 3. Patient will be reevaluated immediately (1-2 minutes) before sedation administration and approved for the plan as stated above. Electronically Signed by: Matthew Shukla MD 12/17/2018 [facility] Portions of this chart may have been created with [employer] voice recognition software. Occasi onal wrong-word or sound-alike substitutions may have occurred due to the inherent hidalgo itations of voice recognition software. Please read the chart carefully and recognize, using context, where these substitutions have occurred documented in this encounter Miscellaneous Notes D-C Instructions Provation - Matthew Shukla MD - 12/17/2018 3:06 PM PDTDischarge Instruct ions for Upper Endoscopy Patient: Ashly Ramirez : 1940 Acct: [id number] Exam Date: December Doctor: Matthew Shukla MD The chances of difficulty following this procedure are minimal. The following instructions will assist you in your recovery. 1. Do Not eat or drink anything for 1 hour. Try sips of water first. If tolerated, resume your regular diet or one recommended by your physician. 2. Do not drive, operate machinery, make critical decisions, or do activities that require coordination or balance for 24 hours. 3. You may experience a sore throat for 24 - 48 hours. You may use throat lozenges or gargle with warm salt water to relieve the discomfort. 4. Because air was put into your stomach druing the procedure, you may experience some belching. 5. Do not use any medication containing aspirin for 10 days, unless otherwise directed by your physician. 6. Sometimes the medications given to you druing the exam can aggravate the veins. The chemical irritation can cause inflammation or pain along the arm with redness, swelling and warmth. This does not mean there is an infection. You can treat the affected area by applying warm, wet compresses (towels) 4 times a day for 20 minutes at a time until inflammation is resolved 7. Report to your doctor: Chills and/or fever over 100 Persistent vomiting or vomiting with blood/nasal regurgitation Severe abdominal pain, other than gas cramps Severe chest pain Black, tarry stools You may reach your physician at Work: . If unable to reach your physician, call [facility] Emergency Department at [address]. [phone] Your doctor recommends these additional instructions: You have a contact number available for emergencies. The signs and symptoms of potential delayed complications were discussed with you. You may return to normal activities tomorrow. Written discharge instructions were provided to you. Resume your previous diet. Continue your present medications. We are waiting for your pathology results. Your physician has recommended a repeat upper endoscopy for surveillance based on pathology results. Return to your GI clinic as needed. Follow an antireflux regimen. This includes: - Do not lie down for at least 3 to 4 hours after meals. - Raise the head of the bed 4 to 6 inches. - Decrease excess weight. - Avoid citrus juices and other acidic foods, alcohol, chocolate, mints, coffee and other caffeinated beverages, carbonated beverages, fatty and fried foods. - Avoid tight-fitting clothing. - Avoid cigarettes and other tobacco products. Do not take any aspirin, ibuprofen (including Advil, Motrin or Nuprin), naproxen (including Aleve), or any other non-steroidal anti-inflammatory drugs. The findings and recommendations have been discussed with you. These instructions have been explained to the patient and/or escort. A copy has been given to the patient/escort. Nurse Signature Patient Signature Escort Signature Date Matthew Shukla MD 12/17/2018 3:30:22 PM This report has been signed electronically.Electronically signed by Matthew Shukla MD at 3:30 PM PDTD-C Instructions Provation - Matthew Shukla MD - 12/17/2018 3:04 PM P DTDischarge Instructions for Colonoscopy Exams Patient: Ashly Ramirez : 1940 Acct: [id number] Exam Date: December Doctor: Matthew Shukla MD You have had an examination of the gastrointestinal tract. The chances of difficulty following this procedure are minimal. The following instructions will assist you in your recovery. ACTIVITIES: Rest quietly until sedation wears off. DO NOT drive a motor vehicle or operate machinery for 24 hours after sedation. Be cautious making critical decisions for 24 hours after sedation. DIET: If throat has been sprayed, do not eat or drink for 1 hour after. Start with a swallow of tap water, if you experience any lack of sensation in your throat, wait another 30 - 60 minutes and start with water again. Once swallowing has returned to normal you may resume your usual diet unless otherwise instructed by your physician. DISCOMFORT: If you had a bowel exam, you may have some abdominal discomfort from the air put into your bowel during the exam. Moving about will help you pass this air. Sometimes the medications given to you during the exam can aggravate the veins. The chemical irritation can cause inflammation or pain along the arm with redness, swelling and warmth. This does not mean there is an infection. You can treat the affected area by applying warm,wet compresses (towels) 4 times a day for 20 minutes at a time until inflammation is resolved. REPORT TO YOUR DOCTOR: Unusual abdominal pain Chest pain or unusual shortness of breath Shoulder pain Nausea, vomiting Fever over 100 degrees, chills Signs of rectal bleeding (red or black stools) Any concern you have resulting from procedure You may reach your physician at Work: . If unable to reach your physician, call [facility] Emergency Department at [address]. [phone] Your doctor recommends these additional instructions: You have a contact number available for emergencies. The signs and symptoms of potential delayed complications were discussed with you. You may return to normal activities tomorrow. Written discharge instructions were provided to you. Eat a high fiber diet. Continue your present medications. We are waiting for your pathology results. Your physician has recommended a repeat colonoscopy in five years for surveillance based on pathology results. Return to your GI office as needed. Do not take any aspirin, ibuprofen (including Advil, Motrin or Nuprin), naproxen (including Aleve), or any other non-steroidal anti-inflammatory drugs. The findings and recommendations have been discussed with you. These instructions have been explained to the patient and/or escort. A copy has been given to the patient/escort. Nurse Signature Patient Signature Escort Signature Date Matthew Shukla MD 12/17/2018 4:05:18 PM This report has been signed electronically.Electronically signed by Matthew Shukla MD at 4:05 PM PDTdocumented in this encounter Plan of [...] | [facility] | | GastroenterologyPatient Name: Ashly RamirezProcedure Date: 12/17/2018 | PROVATION | | 3:06 PMMRN: [id number] #: [id number] of : | | | 9Admit Type: [...] | | | the anesthesiologist and the radio electronics technician in the pre-procedure | | | [...] PMScope Out: 3:26:19 | | | PM [facility], [address] [place] [address] | | | [place] [address] | | | - Await pathology results. [...] |Scope Out: 3:26:19 PM | | | [facility], [facility] [address] [place], [place] | | | [address] | | + + -+ + +---------+ [...] | [facility] | | GastroenterologyPatient Name: Ashly RamirezProcedure Date: 12/17/2018 | PROVATION | | 3:04 PMMRN: [id number] #: [id number] of : | | | 9Admit Type: AmbulatoryAge: 78Room: Endo Room 2Gender: | | | FemaleNote Status: FinalizedAttending MD: Matthew Shukla , | | | MDProcedure: ColonoscopyIndications: Abdominal | | | pain in the left upper quadrant, Hematochezia, | | | Chronic diarrhea, Weight lossProviders: Matthew Rosales | | | MD Gayla, Rina Edouard RN, Conrado Kang CMA, | | | Devon Murdock MD (Anesthesia [...] the anesthesiologist and the | | | radio electronics technician in the pre-procedure area in the [...] | | | evaluated using the BBPS (Leblanc Bowel Preparation Scale) with | | | [...] PMScope Out: | | | 3:55:04 PM [facility], [address] [facility], | | | [place] [address] | | | - Await pathology results. [...] |Scope Out: 3:55:04 PM | | | [facility], [address] [place] [address], [place], [place] | | | [address] | | + + -+ + +---------+ [...] | COMMENT: A -- As part of [facility]' Quality Improvement | | | Program, this portion of the case has been reviewed by another member | | | of our pathology staff with subspecialty training in gastrointestinal | | | pathology. Results called to Dr. Shukla office ([place]) 12/24/18 | | | 10:15 AM. Discussed [...] | and its performance characteristics determined by [facility]. | | | It has not been cleared or approved by the U.S. Food and Drug | | | Administration. The FDA has determined that such clearance or | | | approval is not necessary. This test is used for clinical purposes. | | | It should not be regarded as investigational or for research. | | | [facility] is certified under the Clinical Laboratory | | | Improvement Amendments of 1988 (CLIA) as qualified to perform high | | | complexity clinical laboratory testing. PERFORMING LABORATORY: | | | The technical component was performed by [facility], [address] | | | [place] [address] (Engagement Liaison: Marilyn Dowell MD; | | | CLIA# [id number]). Professional interpretation was performed by | | | [facility], [facility] [address]. | | | [facility], [place], [place] [address] (Engagement Liaison: Guevara Ernandez | | | ; CLIA# [id number]). ADDITIONAL NOTES: Immunohistochemical | | | and/or in situ hybridization studies were performed on this case with | | | the appropriate positive controls that react as expected. This test | | | was developed and its performance characteristics determined by | | | [facility]. It has not been cleared or approved by the U.S. | | | Food and Drug Administration. The FDA has determined that such | | | clearance or approval is not necessary. This test is used for | | | clinical purposes. It should not be regarded as investigational or | | | for research. [facility] is certified under the Clinical | | | Laboratory Improvement Amendments of 1988 (CLIA) as qualified to | | | perform high complexity clinical laboratory testing. PERFORMING | | | LABORATORY: The technical component was performed by [facility] | | | [facility], [address] [place] [id number] (Engagement Liaison: | | | Marilyn Dowell MD; CLIA# [id number]). Professional interpretation was | | | performed by [facility], [address] [place] [address] | | | [place] [address] (Engagement Liaison: Darien Kapoor D.O.; CLIA#: | | | [id number]). REASON FOR ADDENDUM: To add results of [...] the FDA-approved HER-2 Pathway is performed at [facility] | | | [place], on accession #[id number] from at the [...] | by FISH: - Negative for amplification. MZ:gissell ADDENDUM | | | MICROSCOPIC EXAMINATION: Block: A1. Cold ischemia time: Unknown. | | | The fixation is 10% buffered formalin. The length of fixation is | | | unknown. Scoring method: Manual. Fluorescence in situ | | | hybridization (FISH) study (multiplex probe) for HER-2 gene | | | amplification using the Vysis PathVysion kit was performed at [facility] | | | [place], [place]. The assay has not been validated [...] interpretation was | | | performed by [facility], [address] [place] [address] | | | [place] [address] (Engagement Liaison: Everardo HillOPeggy; CLIA#: | | | [id number]). Diagnostician: Guevara Ernandez MD Pathologist | | [...] ONCE PRN, | | | Wheezing, Starting [facility] 12/17/18 at | | | 1346, For 1 dose, Pre-op | | + +---+ | | | + +---+ | albuterol-ipratropium 2.5-0.5 | | | mg/3 mL nebulizer solution 3 mL | | | 3 mL, Nebulization, ONCE PRN, | | | Wheezing, Shortness of Breath, | | | Starting [facility] 12/17/18 at 1615, For | | | [...] glucose < 50, | | | Starting [facility] 12/17/18 at 1346, | | | Repeat [...] | mL/hr | | | CONTINUOUS, Starting [facility] 12/17/18 | | PM PDT | | [...]
--- OUTSIDE RECORDS SUMMARY | ~2020-02-10 | XMS | Encounter Summary ---
Demographics + + + | Address | [address] | | | [place] [address] | + + + | Home Phone [...] Team Providers + +------+ + | Care Tree Planter Name | Role | Phone | + +------+ + | Long Copeland MD | PCP | | + +------+ + Reason for Visit + +--------+ + | Reason | Onset | Comments | | | Date | | + +--------+ + | Medication | 07/28/ | Letrozole | | | 2019 | | + +--------+ + Encounter Details +--------+--------+ + + + | Date | Type | Department | Care Team | Description | +--------+--------+ + + + | 07/28/ | Refill | [facility] | Larissa Colón, | Medication | | 2019 | | [facility] | PharmD [address] | (Letrozole) | | | | [facility] [address] | [address] | | | | | [facility] | [place], [place] | | | | | [facility], | [address] | | | | | [address] | | | | | | [place], [place] | | | | | | [address] | | | | | | [phone] | | | +--------+--------+ + + + [...] Telephone Encounter - Larissa Colón PharmD - 07/29/2019 4:45 PM [facility]Ph[facility] 5 Minutes Spent Called Ashly to inform her that Dr. Bower sent a prescription for acetaminophen 1000 mg TID . I informed her that often insurance won't cover that, so if the don't, she can get regular strength acetaminophen (325 mg) and take 3 tabs per dose. ddendum Note - Larissa Colón PharmD - 07/29/2019 4:37 PM PDT Addended by: LARISSA COLÓN on: 07/29/19 04:37 PM Modules accepted: Orders ddendum Note - Larissa Colón PharmD - 07/29/2019 4:36 PM PDT Addended by: LARISSA COLÓN on: 2019 04:36 PM Modules accepted: Orders elephone Ilianao Mike Lobato - 07/29/2019 4:24 PM PDTPatient calls back, said there is no acetami nophen extra-strength in town. Grocery stores are depleted of many supplies due to the COVI D-19 panic. Asks for a prescription for this, to assist getting the medication. Routing to [facility] and Rx elep Larissa Ayala PharmD - 07/29/2019 2:25 PM PDTPharmacy Documentation Hormonal Therapy - Education:: 50 Minutes Spent The patient and daughter Nella was called for education regarding letrozole hormonal therapy . The following information was discussed with the patient: The first portion of our phone visit was to discuss pain management as requested by Dr. Christiano polanco. Ashly has significant pain from arthritis, fibromyalgia, and her tumor. She takes duloxe micha 90 mg and lidocaine patches. When she took 2 doses of oxycodone, she ended up in the ho spital d/t small bowel obstruction, though admits she didn't take her Miralax. Because she i s on lisinopril, has moderate kidney disease (CrCl ~51 ml/min), and is elderly, I would try to minimize NSAID use. Recommended acetaminophen 1000 mg TID, which she will start. Dr. Chung i will send a prescription for tramadol. Discussed that we would want to try oral pain medic ations before transitioning to a fentanyl patch, which Dr. Bower would want to refer her to a pain/palliative care provider for. They are okay with this plan. She also mentioned she ta kes ondansetron for nausea, but informed her this can also cause constipation. Our final plan was: Acetaminophen 1000 mg TID + tramadol every 8 hours as needed. Prescription: The prescription will be filled at [facility] pharmacy in [place]. The patient will excelsior picker the prescription within the next couple days. The copay is unknown, but usually a low copay and not a large concern. Dose and Administration: Take 1 tablet (2.5 mg) by mouth once daily. Adverse Effects: Patient was provided an education handout on the medications prescribed. The most frequent side effects were reviewed, including hot flashes, arthralgias/myalgias, weight gain, decrea sed bone density, increased cholesterol. Drug Interactions: Medication list reviewed and updated. No significant drug interactions identified using [employer] resource. Monitoring/Supportive Care: The following labs and/or tests are recommended for monitoring: DEXA, cholesterol (PCP) Appropriate supportive care medications also prescribed, including: calcium 500-600 mg BID + vitamin D 800 IU BID is what patient is currently taking - appropriate dosing Follow-Up Information: No future appt yet scheduled. The patient and daughter expressed understanding and all questions were answered. They unde rstand to call the clinic for any questions. Thank you for the consult, Larissa Colón PharmD, [facility] Clinical Oncology Pharmacist documented in th is encounter Plan of Treatment +--------+ + + + + | Date | Type | Specialty | Care Team | Description | +--------+ + + + + | 05/08/ | Telephone-S | Hematology & | Rodriguez Bower MD | | 2019 | cheduled | Oncology | [address] | | | | | | [facility] [place] | | | | | | [address] | | | | | | [phone] | | | | | | | | +--------+ + + + + documented as of this encounter Visit Diagnoses Not on filedocumented in this encounter"
--- OUTSIDE RECORDS SUMMARY | ~2020-02-10 | XMS | Encounter Summary ---
Demographics + + + | Address | [address] | | | [place] [address] | + + + | Home Phone [...] Team Providers + +------+ + | Care Bundle Tier And Labeler Name | Role | Phone | + +------+ + | Long Copeland MD | PCP | | + +------+ + Encounter Details +--------+ + + + + | Date | Type | Department | Care Team | Description | +--------+ + + + + | 02/24/ | Lab | [facility] [address] | Cristel Galicia MD | | | 2019 | Requisition | [address] | [address] | | | | | [place], [place] | [place], [place] | | | | | [address] | [address] | | | | | | [phone] | | | | | | | [...] [address] | | | | | | [place], [place] | | | | | | [address] | | | | | | [phone] | | | | | | | [...] + + + + | [facility] | [address] | [place] [address] | | | DIAGNOSTIC | [address] | | | | LABORATORIES | | | | + + + + + documented in this encounter Visit Diagnoses + + | Diagnosis | + + | Encounter for other screening for genetic and chromosomal anomalies | + + documented in this encounter"
--- OUTSIDE RECORDS SUMMARY | ~2020-02-10 | XMS | Encounter Summary ---
Demographics + + + | Address | [address] | | | [place] [address] | + + + | Home Phone [...] | [facility] | | | and [place] | + + + | Organization | [facility] | | [...] + | Matthew Ramirez | ECON | [address] | | | | | [place] | | | | | [address] | | + + + + + Care Team Providers + +------+ + | Care C D Stripper Name | Role | Phone | + +------+ + | Ashly Rojo PA-C | PCP | | + +------+ + Reason for Visit +---------+--------+ + | Reason | Onset | Comments | | | Date | | +---------+--------+ + | Results | 12/24/ | | | | 2019 | | +---------+--------+ + Encounter Details +--------+ + + + + | Date | Type | Department | Care Team | Description | +--------+ + + + + | 12/24/ | Telephone | [facility] | Matthew Shukla MD | Results | | 2019 | | GASTROENTEROLOGY | [address] [facility] | | | | | [address] [facility] | [place], [place] | | | | | [address] [place], [place] | [address] | | | | | [address] | [phone] | | | | | [phone] | | | +--------+ + + + [...] Telephone Encounter - Nathaly Hatch RN - 12/29/2018 7:34 AM PDTDrPeggy Shukla informed final pathology in Epic now Telephone Encounter - Nathaly Hatch RN - 12/24/2018 2:13 PM PDTDr. Shukla spoke with Dr. Ernandez regarding pathology. Final report should be received tomorrow. elephone Encounter - Nathaly Hatch RN - 0 12/24/2018 10:15 AM PDTReceived call from Dr. 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 He is going to have the GI pathologist look at it and it doing some add itional antrum stains so final diagnosis and report will be ready tomorrow. Dr. Ernandez can be reached before 2pm at [phone] but receptions spotty, and after 2pm he will be in [place] and can be reached at [phone]. Message sent to Dr. Shukla informing him. Electronically signed by Nathaly Hatch RN at 10:24 AM PDTdocumented in this encounter Plan of Treatment Not on filedocumented as of this encounter Visit Diagnoses Not on filedocumented in this encounter
--- OUTSIDE RECORDS SUMMARY | ~2020-02-10 | XMS | Encounter Summary ---
Demographics + + + | Address | [address] | | | [place] [address] | + + + | Home Phone [...] + + + | Author | [facility] | + + + | Organization | [facility] | + + + | Address | Unknown | + + + | Phone | Unavailable | + + + Support + + +---------+ + | Name | Relationship | Address | Phone | + + +---------+ + | Nella Haque | ECON | Unknown | | + + +---------+ + Care Team Providers + +------+ + | Care Salon Coordinator Name | Role | Phone | [...] Description | +--------+--------+ + + + | 12/05/ | Refill | [facility] | Rodriguez Bower MD | Refill Request | | 2020 | | Clinics at S | [address] | | | | | [address] | [place], [place] | | | | | [address] [place] for | [address] | | | | | Health and Healing, | [phone] | | | | | [facility] | | | | | | [place], [place] | | | | | | [address] | | | | | | [phone] | | | +--------+--------+ + + + [...] Notes Telephone Encounter - Yao MckeonGUSTABO - 12/07/2019 9:07 AM PDT Last appointment with Rodriguez Bower MD was on 07/29/2019 . Next appointment with Rodriguez Bower MD is scheduled on 01/27/2020. Last LIP progress note reviewed. Is there documentation to indicate that medication being r equested has been changed or discontinued? No Allergy list reviewed--Is the medication being requested on the patient's current allergy l ist? No Previous Prescription Details copied below: Date and Time Department Ordering/Authorizing 11/03/2019 2:45 PM [facility] Rodriguez Bower MD Outpatient Medication Detail Disp Refills TRAMADOL 50 mg oral tablet 90 tablet 0 Sig: TAKE ONE TABLET BY MOUTH EVERY 8 HOURS NEEDED FOR PAIN- MODERATE Sent to pharmacy as: traMADoL 50 mg tablet (ULTRAM) Class: eRx Order: [id number] E-Prescribing Status: Receipt confirmed by pharmacy (11/03/2019 2:45 PM PDT) Start Date Nov 03, 2019 Per [facility] policy, routing encounter to LIP for [...] [address] | | | | | | [place], [place] | | | | | | [address] | | | | | | [phone] | | | | | | | | +--------+ + + + + documented as of this encounter Visit Diagnoses Not on filedocumented in this encounter"
--- OUTSIDE RECORDS SUMMARY | ~2020-02-10 | XMS | Encounter Summary ---
Demographics + + + | Address | [address] | | | [place] [address] | + + + | Home Phone | | + + + | Preferred Language | Unknown | + + + | Marital Status | | + + + | Uatsdin Affiliation | NRP | + + + [...] Team Providers + +------+ + | Care Underwear Hemmer Name | Role | Phone | + [...] + + + | Authorized | | Radiology | Diagnoses | Mitri, | External | | | | | Metastatic | Rodriguez Hong MD | Order | | | | | breast | [address] | | | | | | cancer (HCC) | Ave | | | | | | Lobular | [place], [place] | | | | | | breast | [address] | | | | | | cancer, | Phone: | | | | | | unspecified | [phone] | | | | | | laterality | Fax: | | | | | | (HCC) | [phone] | | | | | | Neoplasm of | | | | | | | unspecified | | | | | | | behavior of | | | | | | | breast | | | | | | | Procedures | | | | | | | PET CT SKULL | | | | | | | BASE TO | | | | | | | MID-THIGHS | | | + +--------+ + + + + Diagnostic Testing (Routine) + +--------+ + + + + | Status | Reason | Specialty | Diagnoses / | Referred By | Referred To | | | | | Procedures | Contact | Contact | + +--------+ + + + + | Authorized | | Radiology | Diagnoses | Mitri, | External | | | | | Neoplasm of | Rodriguez Hong MD | Order | | | | | unspecified | [address] | | | | | | behavior of | Ave | | | | | | breast | [place], [place] | | | | | | Metastatic | [address] | | | | | | breast | Phone: | | | | | | cancer (HCC) | [phone] | | | | | | Lobular | Fax: | | | | | | breast | [phone] | | | | | | cancer, | | | | | | | unspecified | | | | | | | laterality | | | | | | | (HCC) | | | | | | | Procedures | | | | | | | PET CT | | | | | | | AXUMIN SKULL | | | | | | | BASE TO | | | | | | | MID-THIGHS | | | + +--------+ + + + + Reason for Visit + +--------+ + | Reason | Onset | Comments | | | Date | | + +--------+ + | Care Coordination | 10/17/ | local PET & VV in 3 months | | | 2020 | | + +--------+ + Encounter Details +--------+ + + + + | Date | Type | Department | Care Team | Description | +--------+ + + + + | 10/17/ | Telephone | [facility] | Rodriguez Bower MD | Care Coordination | | 2020 | | Clinics at S | [address] | (local PET & VV in 3 | | | | [address] | [facility], [place] | months) | | | | [address] [place] for | [address] | | | | | Health and Healing, | [phone] | | | | | [address] | | | | | | [place], [place] | | | | | | [address] | | | | | | [phone] | | | +--------+ + + + [...] this encounter Miscellaneous Notes Telephone Encounter - Jeanette Isbell - 01/21/2020 4:40 PM PDTTeam Coordinator Documentation : Subject: Note Imaging is available in [facility]. Report has been uploaded to the [employer] tab. elephone Encounter - Jeanette Alexander - 01/19/2020 10:50 AM PDTTeam Coordinator Documentation: Subject: Note 2nd request has been sent to [facility]. elephone Encounter Jeanette Hickman - 01/14/2020 10:46 AM PDTTeam Coordinator Documentation: Subject: Note [facility] and [facility] Jeanette Cardenas - 01/07/2020 11:30 AM PDTTeam Coordinator Documentation: Subject: Note Faxed last OV note to [phone]. elephone Lizet Cordova - 01/07/2020 10:03 AM PDT [facility] They need most recent office visit chart note faxed over. Pt is scheduled for PET 01/11. elephone Uriel Parisi RN - 12/31/2019 1:23 PM PDTI called Ashly to let her know we fa xed PET scan orders to [facility] and she will call them to set up an appt. elephone Encounter Jeanette Stewart - 12/29/2019 2:33 PM PDTTeam Coordinator Documentation: Subject: Note PET order has been faxed to [facility]. elephone Mike Lee - 12/29/2019 2:24 PM PDTPatient calls, states she just checked with [facility] in [place] and they still don't have the orders for the scan. Asks for them to be sent a gain, will check back in a few days if she doesn't hear back by then. Routing to TC and RNC elep Lizet Mustafa - 12/24/2019 3:53 PM PDTPt wants PET scan orders to [facility] [place] Pt had last one done there, no need to drive to [place] and would like call back to heri yanez elephone Jeanette Flores - 12/24/2019 9:35 AM PDTTeam Coordinator Documentation: Subject: Note Authorization is not required. Order has been faxed to [phone]. ddendum Note - Malini Malik RN - 12/24/2019 8:08 AM PDT Addended by: URIEL MALIK on: 12/24/2019 08:08 AM Modules accepted: Orders elephone Encounter - Uriel Malik RN - 12/24/2019 8:[address] AXUMIM is the incorrect order - Correct PET CT order has now been placed and routed to . elephone Encounter - Rodriguez Bower MD - 12/23/2019 10 :55 AM PDTCan we order regular PET for that location elephone Encounter - Mike Cadet - 12/23/2019 10:49 AM PDTP [facility] Imaging department calls about orders received for [facility] PET Scan. Re ports that this kind of PET scan cannot be done at this location, as they do not have the pr oper equipment. Routing to RNC and MD elep tess Encounter - Jeanette Isbell - 12/22/2019 4:41 PM PDTTeam Coordinator Documentation: Subject: Note Authorization is not required. Order has been faxed to [facility]. ddendum Note - Malini Malik RN - 10/29/2019 2:40 PM PDT Addended by: URIEL MALIK on: 10/29/2019 02:40 PM Modules accepted: Orders elephone Encounter - Uriel Malik RN - 10/29/2019 2:[address] Bower, plan for Ashly is: - PET scan locally in 3 months - visit with us (virtual ok) in 3 months PET scan order placed for [facility], routed to dental scheduler & TC. Electronical ly signed by Uriel Malik RN at 10/29/2019 2:39 PM PDTTelephone Encounter - Rodriguez Bower MD - 10/18/2019 4:08 PM PDTTelephone Follow Up: I called the patient to follow up after her hospital discharge this past week, she did not want to talk to us and hung up. I followed up per prior discussions with her daughter by phone. Plan is: - repeat PET scan this week - refer to palliative care for pain management - continue letrozole Will check back later this week after imaging complete to try and discuss results with Ms Ricardo conde Rodriguez Bower MD, MS ID#[id number] [employer] Division of Hematology and Medical Oncology [facility] Pager#[phone] documented in this enco unter Plan of Treatment +--------+ + + + + | Date | Type | Specialty | Care Team | Description | +--------+ + + + + | 05/08/ | Telephone-S | Hematology & | Rodriguez Bower MD | | | 2020 | suyapa | Oncology | [address] | | | | | | [place], [place] | | | | | | [address] | | | | | | [phone] | | | | | | | | +--------+ + + + + + +---------+--------+ + + | Name | Type | Priori | Associated Diagnoses | Order Schedule | | | | ty | | | + +---------+--------+ + + | PET CT AXUMIN SKULL | Imaging | Routin | Neoplasm of | Expected: | | BASE TO MID-THIGHS | | e | unspecified behavior | 10/29/2019, Expires: | | | | | of breast | 11/27/2020 | | | | | Metastatic breast | | | | | | cancer (HCC) | | | | | | Lobular breast | | | | | | cancer, unspecified | | | | | | laterality (HCC) | | + +---------+--------+ + + | PET CT SKULL BASE TO | Imaging | Routin | Metastatic breast | Expected: | | MID-THIGHS | | e | cancer (HCC) | 12/24/2019, Expires: | | | | | Lobular breast | 01/23/2021 | | | | | cancer, unspecified | | | | | | laterality (HCC) | | | | | | Neoplasm of | | | | | | unspecified behavior | | | | | | of breast | | + +---------+--------+ + + documented as of this encounter Visit Diagnoses + + | Diagnosis | + + | Metastatic breast cancer (HCC) - Primary | + + | Lobular breast cancer, unspecified laterality (HCC) | + + | Neoplasm of unspecified behavior of breast | + + documented in this encounter"
--- OUTSIDE RECORDS SUMMARY | ~2020-02-10 | XMS | Encounter Summary ---
Demographics + + + | Address | [address] | | | [place] [address] | + + + | Home Phone [...] Providers + +------+ + | Care Glass Cleaner Name | Role | Phone | + +------+ + | Long Copeland MD | PCP | | + +------+ + Reason for Visit + +--------+ + | Reason | Onset | Comments | | | Date | | + +--------+ + | Infection of bladder | 10/22/ | surgery 10/26/10, urogyn | | | 2010 | | + +--------+ + Encounter Details +--------+ + + + + | Date | Type | Department | Care Team | Description | +--------+ + + + + | 10/22/ | Telephone | [facility] | Avis Rios | Infection of bladder | | 2010 | | [facility] | MD Gillian [address] | (surgery 10/26/10, | | | | [address] | [address] | urogyn) | | | | [address] | [place], [place] | | | | | [place], [facility] floor | [address] | | | | | [place], [place] | [phone] | | | | | [address] | | | | | | [phone] | | | +--------+ + + + [...] this encounter Miscellaneous Notes Telephone Encounter - Christiana Carlos RN - 10/24/2010 2:58 PM PDT Addended by: CHRISTIANA CARLOS RN on: 10/24/2010 Modules accepted: Orders elephone Encounter - Christiana Carlos RN - 10/24/2010 2:51 PM PDT10/22/10 urine culture result received via fax. R esulted as "> 100,000 CFU/mL Escherichia coli." Entered as external result and routed to Dr. Rios. Pt provided with tx for Cipro on 10/22/10, which is susceptible. Call to pt to ramez hernandez LM with her , Matthew. 2: 57 PM PDTTelephone Encounter - Ubaldo Nella - 10/22/2010 12:[address] Gabriel THOMAS. elephone Encounter - Ubaldo Nella - 10/22/2010 12:00 PM PDTDiscussed patient's call with Dr. Burrell who informed dee zuniga that Dr. Rios is patient's provider. Call Center must have documented the wrong provid er and the patient didn't correct me. Dr. Burrell ordered cipro as well as urine culture. O rders entered into [employer]. [facility] [phone]. Patient aware that she needs to drop off urine and then continuous pickling line pickler and start antibiotics. Patient agrees with plan. elephone Encounter - Ubaldo Nella - 10/22/2010 10:11 AM PDTCalled patient back. Patient reports 5 days of UTI symptoms. Trying to flush with water and cranberry pills. S ymptoms include urinary frequency, urgency and dysuria. No gross hematuria. Has a little " icky feeling" in her lower abdomen. No flank pain or fever. Last UTI: Has had a few times in the past 6 months (maybe 3 months ago). Upcoming surgery 10/25/10. Would like antibioti cs called in - unsure which ones she usually gets prescribed for her. Verified allergies: Sulfa and codeine Verified pharmacy. Advised that I would discuss with Dr. Burrell and get back with her. Patient agrees. Elect ronically signed by Nella Conner at 10/22/2010 10:14 AM PDTTelephone Encounter - DimpleJd - 10/22/2010 8:47 AM PDT Reason for Call: Infection of bladder Patient: Ashly Ramirez Contact Information: Home Phone Message: Description of reason for call: Pt requests antibiotics for bladder infection, states "I byrnes ve surgery scheduled 10/25/[address] Burrell and have been trying to fight off this bladder i nfection for five days. Please call antibiotics into the pharmacy for me." Home Phone Patient states it is ok to leave confidential message on patient's answering machine. Pharmacy Preferences: [id number] [place] [address] New symptoms: Yes - Patient Reports: bladder infection per pt Duration of symptoms: 5 days What has been done to treat symptoms: -- Associated fever, pain, illness, etc: -- Pain Score: Last Visit: 10/03/10 at 10:00 am Next Visit: Next Appointment in [facility] is on 10/25/10 at 9:00 am with Gillian Rios MD. LMP: No LMP recorded. Patient has had a hysterectomy. . Last Pap: No results found for this basename: pap Last Mammogram: No results found for this basename: mammogram Patient's Preferred Pharmacy: Pharmacy Preferences: [id number] [place] [address] Pharmacy Verified: Yes Patient states it is ok to leave confidential message on her answering machine. documented in this encounter Plan of Treatment +--------+ + + + + | Date | Type | Specialty | Care Team | Description | +--------+ + + + + | 05/08/ | Telephone-S | Hematology & | Rodriguez Bower MD | | | 2020 | cheduled | Oncology | [address] | | | | | | [place], [place] | | | | | | [address] | | | | | | [phone] | | | | | | | [...] | [facility] - | [address] | [place] | | | [place] | [address] | [address] | | + + + + + documented in this encounter Visit Diagnoses + + | Diagnosis | + + | UTI (urinary tract infection) - Primary Urinary tract infection, site not specified | + + documented in this encounter
--- OUTSIDE RECORDS SUMMARY | ~2020-02-10 | XMS | Encounter Summary ---
Demographics + + + | Address | [address] | | | [place] [address] | + + + | Home Phone [...] Team Providers + +------+ + | Care Entrepreneur Name | Role | Phone | + +------+ + | Long Copeland MD | PCP | | + +------+ + Reason for Visit +---------+--------+ + | Reason | Onset | Comments | | | Date | | +---------+--------+ + | Post Op | 10/30/ | | | | 2010 | | +---------+--------+ + Encounter Details +--------+ + + + + | Date | Type | Department | Care Team | Description | +--------+ + + + + | 10/30/ | Telephone | [facility] | Avis Rios | Post Op | | 2010 | | [facility] [place] [facility] | MD Gillian [address] | | | | | [place] [address] | [facility] | | | | | [address] | [place], [place] | | | | | [place], [facility] floor | [address] | | | | | [place], [place] | [phone] | | | | | [address] | | | | | | [phone] | | | +--------+ + + + [...] this encounter Miscellaneous Notes Telephone Encounter - Avis Rios MD - 10/31/2010 10:17 PM PDTThis is good news. We will evaluate further at her postop visit. elephone Encounter - Christiana Carlos RN - 10/30/2010 4:30 PM PDTCall to pt to f/u post operatively. Pt states "I'm feeling pretty good." Pt states she i s leaking "a lot less" than she did prior to surgery. Pt states she now has the urge to urin ate prior to leaking and states prior to surgery she did not have the urge to urinate. Pt st ates she will head to the [place] and leak on her way there. Pt states she continues to have enur esis, saturating 2 large poise pads each night. Pt denies pain with urination, hematuria, f ever, N/V/D/chills, lower back pain. Pt notes she is drinking fluids more often since surgery. Pt states she is stops consuming fluids after 2000 each night. Encouraged pt to stop consuming fluids after dinner, briefly discussed timed voiding during day. Forwarding to Dr. Rios as WILLIAM. documented in this enco unter Plan of Treatment +--------+ + + + + | Date | Type | Specialty | Care Team | Description | +--------+ + + + + | 05/08/ | Telephone-S | Hematology & | Rodriguez Bower MD | | | 2019 | cheduled | Oncology | [address] | | | | | | [place], [place] | | | | | | [address] | | | | | | [phone] | | | | | | | | +--------+ + + + + documented as of this encounter Visit Diagnoses Not on filedocumented in this encounter
--- OUTSIDE RECORDS SUMMARY | ~2020-02-10 | XMS | Encounter Summary ---
Demographics + + + | Address | [address] | | | [place] [address] | + + + | Home Phone [...] Author | [facility] | | | and [...] + | Matthew Gomez | ECON | [address] | | | | | [place] | | | | | [address] | | + + + + + Care Team Providers + +------+ + | Care Leather Flesher Name | Role | Phone | + [...] + + + + | 02/13/ | [facility] | [place] [facility] | Guillermo Randall | | | 2018 | Encounter | HOSPITAL OR INTRA OP | JACKIE [address] | | | | | [address] [place] | [place], | | | | | [place], [place] | [place] [address] | | | | | [address] | [phone] | | | | | [phone] | | | +--------+ + + + [...] + documented in this encounter Discharge Instructions Teresa Guillermo Randall, JACKIE - 02/13/2018Jose linda hoffmannyesikadipak documented in this encounter Medications at Time [...] documented as of this encounter H&P Notes Guillermo Randall DPM - 02/13/2018 1:00 PM PDTH&P reviewed no changes Guillermo Solorzano DPM - 02/02/2018 5:00 PM PDT Ashly Gomez is an 77 y.o. female. Chief Complaint: Left foot hammertoes. History of Present Illness: Contracted toe pain: Very annoying, the 3rd toe goes under the other and is very aggrivati ng. Bothers her at night while in bed. The affected toe hurts in all shoegear. The contrac ture deformity is located at digit 2, 3 and 4 left foot. The condition has been present for few years with gradual onset. There is no history of injury or trauma. She continues to h ave daily pain to the left foot that is sharp 6/10 worse with shoes. Her left foot pain limi ts her activity She notes that her right foot digits are doing well, she can wear shoes with minimal compla int much better than prior to surgery. She notes they remain somewhat swollen. She notes pain with any motion of the left 3rd or 4th PIPJ, notes she would like to proceed with surgery revision. Past Medical History: Diagnosis Date Acid reflux Arthritis Bronchitis Cervical cancer (HCC) COPD (chronic obstructive pulmonary disease) (HCC) Fibromyalgia Heart murmur Irritable bowel disease Sinus infection Thyroid activity decreased Allergies: Allergies Allergen Reactions Codeine Sulfate Sulfa Antibiotics No current facility-administered medications for this encounter. Current Outpatient Prescriptions: albuterol (PROAIR HFA) 90 mcg/puff inhaler, 2 puffs every 4 to 6 hours as needed, Disp : , Rfl: ALPRAZolam (XANAX) 0.25 mg tablet, Take 0.25 mg by mouth as needed., Disp: , Rfl: Ascorbic Acid (VITAMIN C) 1000 MG tablet, Take 1,000 mg by mouth Daily., Disp: , Rfl: Black Cohosh 160 MG CAPS, Take 160 mg by mouth Daily. (Patient not taking: Reported on 07/04/2017), Disp: , Rfl: Calcium Carbonate-Vitamin D (CALCIUM + D) 600-200 MG-UNIT TABS, 2 tablets by mouth angel ly, Disp: , Rfl: cholecalciferol (VITAMIN D-3) 1000 UNITS TABS, Take 1,000 Units by mouth Daily., Disp: , Rfl: CINNAMON PO, Take by mouth Daily., Disp: , Rfl: doxepin (SINEQUAN) 75 MG capsule, 2 capsules by mouth at bedtime, Disp: , Rfl: DULoxetine (CYMBALTA) [address] capsule, , Disp: , Rfl: DULoxetine (CYMBALTA) [address] capsule, , Disp: , Rfl: esomeprazole (NEXIUM) 40 mg capsule, Take 40 mg by mouth 2 times daily. (Patient mallory galvez differently: Take 40 mg by mouth as needed.), Disp: , Rfl: fluticasone-salmeterol (ADVAIR) 250-50 mcg/puff diskus inhaler, Inhale 1 puff into the lungs Twice Daily., Disp: , Rfl: gabapentin (NEURONTIN) 100 mg capsule, Take by mouth Daily., Disp: , Rfl: Ocngwbxxros-Uajpxstyq-Bzp C-Mn (GLUCOSAMINE CHONDR 500 COMPLEX) CAPS, 2 capsules by [facility] daily, Disp: , Rfl: HYDROcodone-acetaminophen (NORCO) 5-325 mg per tablet, , Disp: , Rfl: levothyroxine (SYNTHROID, LEVOTHROID) 112 mcg tablet, Take 112 mcg by mouth Daily., Di sp: , Rfl: oxyCODONE-acetaminophen (PERCOCET) 5-325 mg per tablet, 1 to 2 tablets by mouth every 8 hours as needed, Disp: , Rfl: Triamcinolone Acetonide (NASACORT AQ NA), AERS Nasal spray as needed, Disp: , Rfl: vitamin B-12 (CYANOCOBALAMIN) 1000 MCG tablet, Take 1,000 mcg by mouth Daily., Disp: , Rfl: Active Problems: * No active hospital problems. * There were no vitals taken for this visit. Review of Systems Constitutional: Negative. HENT: Negative. Eyes: Negative. Respiratory: Negative. Cardiovascular: Negative. Gastrointestinal: Negative. Genitourinary: Negative. Musculoskeletal: Negative. Skin: Negative. Neurological: Negative. Endo/Heme/Allergies: Negative. Physical Exam Constitutional: She is oriented to person, place, and time. She appears well-developed and well-nourished. HENT: Head: Normocephalic and atraumatic. Eyes: Pupils are equal, round, and reactive to light. No scleral icterus. Neck: Normal range of motion. Neck supple. No thyromegaly present. Cardiovascular: Normal rate, regular rhythm, normal heart sounds and intact distal pulses. Pulmonary/Chest: Effort normal and breath sounds normal. Abdominal: Soft. Bowel sounds are normal. Neurological: She is alert and oriented to person, place, and time. Physical Examination: Vitals: Height: 69. Weight: 200. Temperature: 99.6 degrees F. Blood Pressure: 167/98. Pulse: 75. Dermatologic Exam: Skin turgor and texture is normal bilaterally. There is digital hair growth bilaterally. S kin temperature is within normal limits bilaterally. Musculoskeletal Exam: pes valgo planus and right foot digits are well aligned to the foot with moderate swelling well coapted dorsal incisions, no pain with palpation, digits are stable. Left 2nd.3rd,4th digit s/p arthrodesis, the left 2nd is rigid and pain free, distal abduction deformity note d, 3rd and 4th digit are in adductovarus, very tender to palpation or with minimal ROM of th e PIPJ's, no pain with ROM of the MTPJ's. Mild swelling noted to the area. Biomechanical Exam: Weight-bearing Evaluation Left RCSP 10 degrees valgus. Right RCSP 8 degrees v algus. Left NCSP 3 degrees valgus. Right NCSP 0 degrees va lgus. There is a partially compensated forefoot varus deformity of both feet. With relaxed stance, there is L >R. Complete loss of medial longitudinal arch. Moderate to severe pro nation bilaterally. Midfoot collapse medially. Neurological Exam: 5.07 Monofilament intact. Vibratory sensation (128C tuning fork) absent from the MTPs dist ally. Vascular Exam: Dorsalis pedis pulse is +2/4 bilateral. Posterior tibial pulse is +2/4 bilateral. Assessment and Tx Plan: 1. Pain L. foot (719.47) (M79.672). Pain in left ankle and joints of left foot (719.47) (M25.572). 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 Hammertoe de formity 2, 3 and 4 left foot ( M20.42 ). Rationale for TP and Alternatives: Local/Mac anesthesia discussed. Surgical intervention including Arthroplasty toe 3,4 with implants to the PIPJ left foot wa s discussed. Risks and complications discussed included, but was not limited to: delayed healing, infect ion, chcf swelling postoperative, additional surgery if complications arise, floppy toe , failure of implant, remaining pain, restricted range of motion of the joint and remaining deformity. Recovery discussed. Informed consent was obtained, risks benefits and alternatives were described in detail to the patient, no guarantees were given nor implied. All questions were answered to her satisf action, Verbal and Written pre and post operative instructions were given to the patient including but no limited to NPO instructions and instructions on any changes to medication schedule. Follow-up and Instructions: Return to Office: as scheduled for post operative care. Guillermo Randall 02/04/2018 docu mented in this encounter Miscellaneous Notes Op Note - Guillermo Randall DPM - 02/13/2018 3:01 PM [facility] [address] [place] [address] OPERATIVE REPORT GUILLERMO T RANDALL JACKIE Patient: ASHLY GOMEZ Admitting: GUILLERMO RANDALL MR #: [id number] LOC: PT TYPE: Adm Date: 02/13/2018 : 1940 DATE OF SURGERY: 02/13/2018 LOCATION: Surgery was done at the [facility] in [place], [place]. ATTENDING SURGEON: Guillermo Randall DPM PREOPERATIVE DIAGNOSIS: Left 3rd and 4th digit hammertoes with painful proximal interphala ngeal joint arthritis. POSTOPERATIVE DIAGNOSIS: Left 3rd and 4th digit hammertoes with painful proximal interphal angeal joint arthritis. PROCEDURE PERFORMED: Left 3rd and 4th PIPJ arthrodesis with Arthrex dart fixation. This i s a revision of previous arthroplasties. ASSISTANTS: None. ANESTHESIA: Monitored anesthesia care with 20 mL of 1 percent lidocaine and 10 mL of 0.5 p ercent Marcaine plain. HEMOSTASIS: Left ankle tourniquet at 250 mmHg times 66 minutes. INDICATION: Ms. Gomez is a 77-year-old female who is well known to my service having pr evious performed arthrodesis of the 2nd PIPJ and arthroplasty of the 3rd and 4th, she subseq uently developed a painful pseudoarthrosis and recurrent hammertoe contracture. The patient failed conservative care with padding, anti-inflammatories, steroid injections and elected to pursue revision surgical intervention. FINDINGS: Pseudoarthrosis to the proximal interphalangeal joint of the left 3rd and 4th di gits. IMPLANTS: A one 3 x 30 mm and one 2.5 x 30 mm Arthrex dart. ESTIMATED BLOOD LOSS: 10 mL IV FLUIDS: 600 mL lactated Ringer's. Counts were correct. DESCRIPTION OF CASE: The patient was seen in the perioperative care and surgical site was confirmed and signed. Surgery was discussed in detail with the patient. No guarantees were given or implied. The patient was taken to the operating room, placed on the operative tab le in supine position. Monitored anesthesia care was administered by Dr. Honeycutt, 20 mL of 1 percent lidocaine plain was injected about the left forefoot. Pneumatic ankle tournique t was placed with standard padding. Ipsilateral hip roll was placed underneath the left hip and a left lower extremity was then prepped and draped in usual aseptic fashion. Following final pause confirming patient, location and procedures, an Esmarch dressing was utilized t o exsanguinate the left foot and tourniquet inflated to 250 mmHg. Attention was first directed to the dorsal aspect of the 3rd digit where a 3 cm curvilinear longitudinal incision was created. This incision was deepened with sharp and blunt dissect ion down to the level of the proximal interphalangeal joint capsule. There was significant scarring. Soft tissue planes had to be recreated. The pseudoarthrosis was identified and a transverse resection was performed. Following this, a sagittal saw was used to resect bot h the arthrodesed proximal phalanx and the base of the intermediate phalanx. Appropriate gu idewire was then utilized and placed in an axial fashion along the 3rd digit for use with th e Arthrex retrofusion screw system. A 3 x 20 mm implant was placed into the 3rd digit; hanson sherry, there was some lateral blowout of the head of the proximal phalanx and the device faile d to engage the intermediate phalanx after multiple attempts. Decision was made to convert and use a 3 mm dart device. This was placed in a standard fashion and excellent stability and alignment of the digit was achieved. Following this, attention was directed to the 4th digit where a 2 cm linear longitudinal incision was created. This incision was deepened wit h sharp and blunt dissection down to the level of the proximal interphalangeal joint arthros is. Significant scarring was noted and soft tissue planes were recreated. Transverse caps ulotomy was performed. Soft tissues were released from about the head of the proximal phala nx and the base of the intermediate phalanx. The appropriate drill was used in an axial fas hion to the 4th digit for placement of 2.5 mm Arthrex dart. This was placed in a standard f ashion and excellent alignment of the digit was achieved. The extensor digitorum longus ten don was resected approximately 2 mm and closure was carried out with 3-0 Vicryl to extensor tendon and then a 4-0 Monocryl and 3-0 nylon to the skin. Additional 0.5-percent Marcaine plain was injected about the left foot. A dressing was applied with Adaptic, gauze, Kerlix, and Noe. The tourniquet was deflated at 66 minutes with instant hyperemia to the digits of the left foot. The dressing was then finished and the digits were closed over. The patien t was placed into the postoperative shoe. The [facility] was [facility] and transferred back to the [facility] with all vital signs stable and vascular status in tact to the digits of the left foot. PLAN: The patient will be discharged home when stable. The patient to be partially weight bearing to the left foot in a postoperative shoe. The patient is to keep the dressing clean , dry, and intact at all times. The patient to notify my office or present to the emergency room for any signs or symptoms of infection or if the dressing becomes wet or soiled. GUILLERMO RANDALL DPM Dictated by GUILLERMO RANDALL DPM 02/13/2018 15:01:50 Transcribed on 02/13/2018 20:09:26 by júnior job# [id number] Confirmation #: [id number] signed by Guillermo Randall DPM at 02/17/2018 6: 38 AM PDTBrief Op Note - Guillermo Randall DPM - 02/13/2018 2:46 PM PDT Foot & Ankle Surgery Brief Post Operative Note 14:46; 02/13/2018 Ashly Alberto Wilkinsonelva Age/Gender 77 y.o. female [facility] INTRA OP Attending T[facility] Day # 0 PCP Ashly Rojo PA-C Date of Surgery: 02/13/2018 Pre-op Diagnosis: left 3rd and 4th digit hammertoe and painful DJD Post-op Diagnosis: Same Procedure: Left 3rd and 4th PIPJ arthrodesis with arthrex dart fixation Surgeon: Tasha Moses Assistants: none Anesthesia: MAC 20ml 1% lidocaine,10 0.5%marcaine plain Hemostasis: left ankle tourniquet 250mmHg x 66minutes Indication Unknown Findings See operative report. Implants Used: 3.0mm x 30mm, 2.5mm x 30mm arthrex dart Estimated Blood Loss: 10 ml IV Fluids: Refer to anesthesia record. Drains: none Counts: Instrument, sponge, and needle counts were correct prior to closure and at the conc lusion of the case. Disposition The patient was taken to the recovery room in excellent condition. Complications None Guillermo Randall DPM at 14:46 on 02/13/2018 Electronically signed by: Guillermo Randall DPM 02/13/2018 14:46 CC [facility] 18 2:49 PM PDTdocumented in this encounter Plan of [...]
--- OUTSIDE RECORDS SUMMARY | ~2020-02-10 | XMS | Encounter Summary ---
Demographics + + + | Address | [address] | | | [place] [address] | + + + | Home Phone [...] | Author | [facility] | | | and [...] + | Matthew Ramirez | ECON | [address] | | | | | [place] | | | | | [address] | | + + + + + Care Team Providers + +------+ + | Care Boiler Technician Name | Role | Phone | [...] | | | [address] [place] | [place] [address] | | | | | [place] [address] | | | | | | [phone] | | | +--------+ + + + [...]
--- OUTSIDE RECORDS SUMMARY | ~2020-02-10 | XMS | Encounter Summary ---
Demographics + + + | Address | [address] | | | [place] [address] | + + + | Home Phone [...] | Author | [facility] | | | and [place] | + + + | Organization | [facility] | | | and [place] | + [...] + | Matthew Ramirez | ECON | [address] | | | | | [place] | | | | | [address] | | + + + + + Care Team Providers + +------+ + | Care Wardrobe Custodian Name | Role | Phone | + [...] | | cancer | Luis Richards, | [place] | | | | | metastasized | MD [address] | [place] | | | | | to multiple | [place] | [address] | | | | | sites, left | [address] | Phone: | | | | | ([facility]) | [place], | [phone] | | | | | Procedures | [place] [address] | Fax: | | | | | PET CT Skull | Phone: | [phone] | | | | | Base To Mid | [phone] | | | | | | Thigh | Fax: | | | | | | | [phone] | | +--------+--------+ + + + + Reason for Visit + +--------+ + | Reason | Onset | Comments | | | Date | | + +--------+ + | Care Coordination | 07/09/ | | | | 2020 | | + +--------+ + Encounter Details +--------+ + + + + | Date | Type | Department | Care Team | Description | +--------+ + + + + | 07/09/ | Telephone | [facility] | Arpan | Care Coordination | | 2020 | | MED [facility] | Luis Richards MD [address] | | | | | [facility] [address] | [facility] | | | | | [address] | [address] [place], [place] | | | | | [place] [address] | [address] | | | | | [phone] | | | +--------+ + + + [...] Telephone Encounter - Luis Antony MD - 07/10/2019 11:38 AM PSTReturned call to brittany Carmen. Patient home now following two admissions to [facility] for bowel obstruction. Requesting PET/CT at this time. PET scan ordered in [place]. Please call patient with a ppointment for PET scan. Electronically signed by: Luis Antony MD 07/10/2019 11:40 AM elephone [facility] - Eileen, Mary Morales RN - 07/09/2019 4:17 PM PSTDr. Arpan, please advise. I did call Nella back and let her know you were out of the office until Friday, she said she would appreciate a call back from our office sometime next week to update her. Electronically sign ed by Mary Arellano, RN at 07/09/2019 4:26 PM PSTTelephone Encounter - Wu Stanley - 07/09/2019 4:06 PM PSTLisa called, pt is supposed to go to [facility] but they are wanting a ne w PET scan done prior to visit. Pt is supposed to go in August. Please advise. She asks that you call her (Nella) and not pt because she is the one coordinating all of [facility]. [phone] documented in this encounter Plan of Treatment [...] + -----+ | Exam: PET CT | [facility] | | SKULL BASE TO [...]
--- OUTSIDE RECORDS SUMMARY | ~2020-02-10 | XMS | Encounter Summary ---
Demographics + + + | Address | [address] | | | [place] [address] | + + + | Home Phone | | + + + | Preferred Language | Unknown | + + + | Marital Status | | + + + | Denominational Affiliation | Unknown | + + + | Race | White | + + + | Ethnic Group | Not or | + + + Author + + + | Author | [facility] | | | and [place] | + + + | Organization | [facility] | | [...] + | Matthew Ramirez | ECON | [address] | | | | | [place] | | | | | [address] | | + + + + + Care Team Providers + +------+ + | Care Engineering Program Analyst Name | Role | Phone | + +------+ + PCP | Unavailable | + +------+ + Encounter Details +--------+ + + + + | Date | Type | Department | Care Team | Description | +--------+ + + + + | 03/28/ | Hospital | [facility] | | | | 1996 | Encounter | MED CTR LABORATORY | | | | | | [address] | | | | | | [place] | | | | | | [address] | | | | | | [phone] | | | +--------+ + + + [...]
--- OUTSIDE RECORDS SUMMARY | ~2020-02-10 | XMS | Encounter Summary ---
Demographics + + + | Address | [address] | | | [place] [address] | + + + | Home Phone [...] | [facility] | | | and [place] | + + + | Organization | [facility] | | [...] + | Matthew Gomez | ECON | [address] | | | | | [place] | | | | | [address] | | + + + + + Care Team Providers + +------+ + | Care Eap Clinician Name | Role | Phone | + [...] | | | | | | AL REPAIR OF | | | | | [...] 02/13/ | Surgery | [place] [facility] | Guillermo Randall | ARTHROPLASTY 3rd and | | 2017 | | HOSPITAL OR INTRA OP | [address]ACK[place] [address] | 4th Digits with | | | | [address] [place] | [place], | Impalnt Revision | | | | [place], [place] | [place] [address] | | | | | [address] | [phone] | | | | | [phone] | | | +--------+---------+ + + + [...] + + + | Blood Pressure | - | - | | + [...] + documented in this encounter Discharge Instructions Guillermo Vaughn DPM - 02/13/2018Jose puga documented in [...] Take by mouth Daily., Disp: , Rfl: Hdmiltjjfpk-Jczxwisqx-Wjz C-Mn (GLUCOSAMINE CHONDR 500 COMPLEX) CAPS, 2 capsules by mo uth daily, Disp: , Rfl: HYDROcodone-acetaminophen (NORCO) 5-325 [...] not limited to: delayed healing, infect ion, salvage determiner swelling postoperative, additional surgery if complications arise, [...] Guillermo Randall DPM - 02/13/2018 3:01 PM [facility] [address] [place] [address] OPERATIVE REPORT GUILLERMO RANDALL DPM Patient: ASHLY GOMEZ Admitting: GUILLERMO RANDALL MR #: [id number] LOC: PT TYPE: Adm Date: 02/13/2018 : 1940 DATE OF SURGERY: 02/13/2018 LOCATION: Surgery was done at the [facility] in [place], [place]. ATTENDING SURGEON: Guillermo Randall DPM PREOPERATIVE [...] postoperative shoe. The patient was brought from [facility] care and transferred back to the [facility] with all vital signs stable and vascular [...] 02/13/2018 15:01:50 Transcribed on 02/13/2018 20:09:26 by job# [id number] Confirmation #: [id number] signed by Guillermo Randall DPM at 02/17/2018 6: 38 AM PDTBrief Op Note - Guillermo Randall DPM - 02/13/2018 2:46 PM PDT Foot & Ankle Surgery Brief Post Operative Note 14:46; 02/13/2018 Ashly Gomez Age/Gender 77 y.o. female [facility] OR INTRA OP Attending [facility] [...] by: Guillermo Randall DPM 02/13/2018 14:46 CC R [place] [facility] 18 2:49 PM PDTdocumented in [...] + + documented in this encounter Results HERNAN Mayen 2 Vw (02/13/2018 2:33 PM PDT) + [...]
--- OUTSIDE RECORDS SUMMARY | ~2020-02-10 | XMS | Encounter Summary ---
Demographics + + + | Address | [address] | | | [place] [address] | + + + | Home Phone [...] Author | [facility] | | | and [place] | + + + | Organization | [facility] | | [...] + | Matthew Ramirez | ECON | [address] | | | | | [place] | | | | | [address] | | + + + + + Care Team Providers + +------+ + | Care Saddle Stitch Operator Name | Role | Phone | + +------+ + PCP | Unavailable | + +------+ + Encounter Details +--------+ + + + + | Date | Type | Department | Care Team | Description | +--------+ + + + + | 12/30/ | Hospital | [facility] | | | | 2001 | Encounter | MED CTR XRAY [address] | | | | | | [place] | | | | | | [place] [address] | | | | | | [phone] | | | +--------+ + + + [...]
--- OUTSIDE RECORDS SUMMARY | ~2020-02-10 | XMS | Encounter Summary ---
Demographics + + + | Address | [address] | | | [place] [address] | + + + | Home Phone [...] | Author | [facility] | | | and [place] | + + + | Organization | [facility] | | | [...] + | Matthew Gomez | ECON | [address] | | | | | [place] | | | | | [address] | | + + + + + Care Team Providers + +------+ + | Care Brand Executive Name | Role | Phone | [...] 07/04/ | Hospital | [facility] | Guillermo Randall | | | 2018 | Encounter | [facility] OP | Fab, DPM [address] | | | | [address] [place] | [facility], | | | | | [place], [place] | [place] [address] | | | | | [address] | [phone] | | | | | [phone] | | | +--------+ + + + [...] encounter H&P Notes Guillermo Randall DPM - 07/04/2017 8:36 AM PSTH&P reviewed no changesElectronically minnie d by Guillermo Randall DPM at 07/04/2017 8:36 AM Guillermo Teixeira DPM - 06/27/2017 1: 51 PM PST Ashly Gomez is an 76 y.o. female. HPI Chief Complaint: Left foot hammertoes. History of Present Illness: Contracted toe pain: The contracture deformity is located at digit 2, 3 and 4 left foot. Very annoying, the 2nd toe goes under the other and is very aggrivating. Bothers her at nigh t while in bed. The affected toe hurts in all shoegear. Patient reports no previous treatm ent for the condition. The condition has been present for few years with gradual onset. Th ere is no history of injury or trauma. She continues to have daily pain to the left foot th at is sharp 6/10 worse with shoes. Her left foot pain limits her activity She notes that her right foot digits are doing well, she can wear shoes with minimal compla int much better than prior to surgery. She notes they remain somewhat swollen. Past Medical History: Medical- Cervical cancer (C53.9)., COPD, Fibromyalgia, Gastrointestinal reflux disorder and Thyroid disorder and Arthritis. . Past Medical History: Diagnosis Date Acid reflux Arthritis Bronchitis Cervical cancer (HCC) COPD (chronic obstructive pulmonary disease) (HCC) Fibromyalgia Heart murmur Irritable bowel disease Sinus infection Thyroid activity decreased Allergies: Allergies Allergen Reactions Codeine Sulfate Sulfa Antibiotics Surgical- ankle ORIF 2014, knee replacement, gall bladder surgery, right 2nd 3rd and 4th digit hammer toe repair. Medications- Advair Diskus and alprazolam, Perfect Biotics, Benadryl, duloxetine and doxepin, levothyrox ine, Ventolin HFA and Zantac. Review of Systems Constitutional: Negative. HENT: Negative. Eyes: Negative. Respiratory: Negative. Cardiovascular: Negative. Gastrointestinal: Negative. Genitourinary: Negative. Musculoskeletal: Negative. Skin: Negative. Neurological: Negative. Endo/Heme/Allergies: Bruises/bleeds easily. Vitals: Height: 67. Weight: 200. Temperature: 98.9 degrees F. Blood Pressure: 157/90. Pulse: 74. Physical Exam Constitutional: She appears well-developed and well-nourished. No distress. HENT: Head: Normocephalic. Eyes: Conjunctivae and EOM are normal. Neck: Normal range of motion. Neck supple. No thyromegaly present. Cardiovascular: Normal rate, regular rhythm, normal heart sounds and intact distal pulses. Pulmonary/Chest: Effort normal and breath sounds normal. No respiratory distress. She has n o wheezes. She has no rales. Abdominal: Soft. Bowel sounds are normal. She exhibits no distension. There is no tendernes s. X-RAYS 05/01/17: S/p 2nd PIPJ arthrodesis, excellent alignement of digit and approximation of arthrodesis site. Right foot - 2 views (42223 RT). Left foot - 3 views ([id number]). Art hrodesis noted to 3rd digit, arthroplasty noted to 4th, early trabeculation noted at arthrodesis sites,. Left foot xrays demonstrate contractures to the PIPJ of the left 2nd,3rd and 4th digits, 5th digit synostosis is noted. Severe arthri tic changes noted to the left 2nd DIPJ and 3rd PIPJ. Assessment and Tx Plan: 1. Pain L. foot (719.47) (M79.672). Primary osteoarthritis, left ankle and foot (715.16 ) (M19.072). Hammertoe deformity 2, 3 and 4 left foot ( M20.42 ). There has been no improv ement. Rationale for TP and Alternatives: Patient has tried various conservative measures includi ng shoe modification and palliative care and this has failed to alleviate the symptoms. Thi s patient has decided to undergo surgical repair of the foot condition. Local/Mac anesthesi a discussed. Surgical intervention including Arthrodesis toes Lt 2,3 with K-wire pinning and Arthroplast y toes Lt 4 was discussed. Local/Mac anesthesia discussed. Risks and complications discussed included, but was not limited to: infection, additional s urgery if complications arise, recurrence of deformity, remaining pain, premature removal of the K-wire related to potential complications; with less than optimum outcome, prolonged sw elling, remaining deformity and restricted range of motion of the joint. Recovery discussed . Recovery discussed. Patient to transition her right foot back to normal shoegear. She is to increase her activity to tolerance. Informed consent was obtained, risks benefits and alternatives were described indetail to t he patient, no gaurantees were given nor implied. All questions were answered to her satisfa ction, Verbal and Written pre and post operative instructions were given to the patient including but no limited to NPO instructions and instructions on any changes to medication schedule. Guillermo Randall 06/27/2017 Pippa soto in this encounter Miscellaneous Notes Op Note - Guillermo Randall DPM - 07/04/2017 10:36 AM [facility] [address] [place] [address] OPERATIVE REPORT GUILLERMO RANDALL DPM Patient: ASHLY GOMEZ Admitting: GUILLERMO RANDALL MR #: [id number] LOC: PT TYPE: Adm Date: 07/04/2017 : 1940 Surgery was performed in [facility] in [place], [place], on 07/04/2017. ATTENDING SURGEON: Guillermo Randall DPM PREOPERATIVE DIAGNOSIS: Left 2nd, 3rd and 4th digit hammertoes. POSTOPERATIVE DIAGNOSIS: Left 2nd, 3rd and 4th digit hammertoes. PROCEDURE PERFORMED: Left 2nd and 3rd proximal interphalangeal joint arthrodesis and left 4th digit arthroplasty. SURGEON: Guillermo Randall DPM ASSISTANTS: None. ANESTHESIA: Monitored anesthesia care with 20 mL of 1 percent lidocaine and 10 mL of 0.5 percent Marcaine plain. HEMOSTASIS: Was Left ankle tourniquet 250 mmHg times 48 minutes. INDICATIONS: Ms. Gomez is a 76-year-old female with longstanding history of painful hammertoes to the left foot. She presented to my office with complaint of pain with shoe gear and limitation of activities. She has failed conservative treatment including wider shoes, orthotics, anti-inflammatories and digital splinting and elected to pursue surgical intervention. FINDINGS: Contracture of the proximal interphalangeal joints, digits 2, 3, and 4, stage III, osteoarthritis to the left 3rd digit. Left 2nd digit had a contracture of the extensor digitorum longus tendon, which was reduced with a release of the extensor retinaculum. IMPLANTS: 0.045 K wires times 3. ESTIMATED BLOOD LOSS: 5 mL. IV FLUIDS: 600 mL lactated Ringer's. DRAINS: One TLS was used. DESCRIPTION OF CASE: The patient was seen in the preoperative care unit. Surgical site was confirmed and signed. Surgery discussed in detail with the patient. No guarantees were given or implied. The patient was then transferred to the operating room, placed on operative table in a supine position. Monitored anesthesia care was administered by Mars Honeycutt of the anesthesia service. A pneumatic tourniquet was placed about the left ankle. Left lower extremity was then prepped and draped in the usual aseptic fashion. A total of 20 mL of 1-percent lidocaine plain was injected to the left forefoot prior to prep. Following a final pause confirming patient, location and procedures, attention was then directed to the left foot. Esmarch dressing was used to exsanguinate the left foot and tourniquet inflated to 250 mmHg. Attention was then directed to the dorsal aspect of the 2nd ray where an approximate 6 cm curvilinear longitudinal incision was created. This incision was deepened with sharp and blunt dissection down to the level of the proximal interphalangeal joint. A transverse capsulotomy was performed and soft tissues were released from the head of the proximal phalanx. Our dissection was then carried distally and medially and a hypertrophic epicondyle was removed with a rongeur. The foot was then loaded and revealed a mild contracture of the extensor digitorum longus tendon. Release of the extensor retinaculum was performed and excellent alignment of the digit was achieved. Following this, a sagittal saw was used to resect the head of the proximal phalanx and base of the intermediate phalanx. A 0.045 K wire was introduced in an axial fashion to the 2nd ray. Attention was then directed to the 3rd digit where a 2 cm linear longitudinal incision was created over the proximal interphalangeal joint. This incision was deepened with sharp and blunt dissection down to the level of the capsule of the interphalangeal joint. Transverse capsulotomy was performed and soft tissues were released from the head of the proximal phalanx. Sagittal saw was used to resect the head of the proximal phalanx and the base of the intermediate phalanx. A K wire was introduced in axial fashion. This did not transverse the 1st metatarsophalangeal joint. Attention was then directed to the 4th digit where a 3 cm linear longitudinal incision was created. This incision was deepened with sharp and blunt dissection down to the level of the proximal interphalangeal joint. Transverse capsulotomy was performed and soft tissues were released from about the head of the proximal phalanx. The sagittal saw was then used to resect the head of the proximal phalanx and a K wire was introduced in an axial fashion as well. Copious lavage of the surgical wounds was then performed. Intraoperative fluoroscopy was utilized to confirm the placement of the K wires, minor adjustment of the K wires was performed and final x-rays taken. Following this, a 3-0 Vicryl was used to reapproximate the extensor digitorum longus tendons to all digits and layered closure was carried out to all incisions with 3-0 and 4-0 Vicryl and 3-0 and 4-0 nylon. Following closure, a TLS drain was introduced to the 2nd ray surgical site and additional 10 mL of 0.5 percent Marcaine was introduced. Dressings were applied with Adaptic, gauze and Coban. The patient was placed into a postoperative shoe with a toe protector. K wires were bent and cut and capped prior to closure. The tourniquet was deflated at 48 minutes with instant hyperemia noted to the digits of the left foot. The patient was then brought from monitored anesthesia care and transferred back to the perioperative care unit with all vital signs stable and vascular status intact to the left lower extremity. PLAN: The patient will follow up as scheduled. The patient to be weightbearing as tolerated in her postoperative shoe. The patient is to keep the foot elevated as much possible, ice behind the knee or on top of the foot. The patient will remove the drain in 24 hours. The patient to notify my office or present to the emergency room for any signs or symptoms of infection or if the dressing becomes wet or soiled. GUILLERMO RANDALL DPM Dictated by GUILLERMO RANDALL DPM 07/04/2017 10:36:45 Transcribed on 07/04/2017 11:04:22 by [facility] job# [id number] Confirmation #: [id number] signed by Guillermo Randall DPM at 07/17/2017 4:58 PM PSTBrief Op Note - Guillermo Randall DPM - 07/04/2017 10:23 AM PST Brief Operative Note Ashly Gomez 76 y.o. female 1940 [id number] Foot & Ankle Surgery Brief Post Operative Note 10:24; 07/04/2017 Ashly Gomez Age/Gender 76 y.o. female [facility] OR INTRA OP Attending Guillermo Randall DPM Hosp Day # 0 PCP Ashly Rojo PA-C Date of Surgery: 07/04/2017 Pre-op Diagnosis: Left 2nd,3rd,4th hammertoes Post-op Diagnosis: Same Procedure: Left 2nd,3rd PIPJ arthrodesis, left 4th digit arthroplasty Surgeon: Guillermo Randall DPM Assistants: none Anesthesia: MAC Hemostasis: Left ankle tourniquet at 250mmHg [id number] Indication Findings See operative report. Implants Used: 0.045 kwire x3 Estimated Blood Loss: 5 ml IV Fluids: Refer to anesthesia record. Drains: TLS x1 Counts: Instrument, sponge, and needle counts were correct prior to closure and at the conc lusion of the case. Disposition The patient was taken to the recovery room in excellent condition. Complications None Guillermo Randall DPM at 10:24 on 07/04/2017 Electronically signed by: Guillermo Randall DPM 07/04/2017 10:[address] [facility] 10 :25 AM PSTdocumented in this encounter Plan of Treatment Not [...] | Procedure Note | + + | Rich Palumbo Results In - 07/04/2017 10:21 AM PST [...]
--- OUTSIDE RECORDS SUMMARY | ~2020-02-10 | XMS | Encounter Summary ---
Demographics + + + | Address | [address] | | | [place] [address] | + + + | Home Phone [...] Author | [facility] | | | and [place] | + + + | Organization | [facility] | | [...] + | Matthew Ramirez | ECON | [address] | | | | | [place] | | | | | [address] | | + + + + + Care Team Providers + +------+ + | Care Sales Counselor Name | Role | Phone | + +------+ + PCP | Unavailable | + +------+ + Encounter Details +--------+ + + + + | Date | Type | Department | Care Team | Description | +--------+ + + + + | 03/12/ | Hospital | [facility] | | | | 2005 - | Encounter | [facility] | | | | | | [address] | | | | 04/17/ | | [place] [address] | | | | 2005 | | [phone] | | | +--------+ + + + [...]
--- OUTSIDE RECORDS SUMMARY | ~2020-02-10 | XMS | Encounter Summary ---
Demographics + + + | Address | [address] | | | [place] [address] | + + + | Home Phone [...] Team Providers + +------+ + | Care Statement Processor Name | Role | Phone | + [...] | | | | | | | [address] | | | | | | | [address] | | | | | | | [address] | | | | | | | [facility] | | | | | | | [place] | | | | | | | [address] | | | | | | | ([facility]) | | | | | | | [facility] | | | | | | | [place] [address] | | | | | | | Phone: | | | | | | | [phone] | | | | | | | Fax: | | | | | | | [phone] | +--------+--------+ + + + + Encounter Details +--------+ + + + + | Date | Type | Department | Care Team | Description | +--------+ + + + + | 10/26/ | Hospital | [facility] [address] | Avis Rios | | | 2010 | Encounter | [address] | MD Gillian [address] | | | | | [facility] | [facility] | | | | | Madhavi Marrero | [place], [place] | | | | | ([facility]) | [address] | | | | | [place], [place] | [phone] | | | | | [address] | | | | | | [phone] | | | +--------+ + + + [...] Discharge Instructions Instructions Laura Mendes RN - 10/26/2010[facility] Transvaginal Suburethral Sling WHAT YOU SHOULD KNOW A transvaginal suburethral sling is surgery to treat stress incontinence ([id number]) . The goal of surgery is to [...] TO REACH YOUR DOCTOR Friday call the [facility] at [phone] After hours, weekend and holidays call the [facility] at [phone]. Ask them to page your doctor. RETURN [...] nostril | | | | | | [place] | once daily. | | | | | + + + +---------+--------+ + documented as of this encounter H&P Notes Other, Faculty - 10/30/2010 2:15 PM PDT documented in this encou nter Procedure Notes Other, Faculty - 10/30/2010 2:15 PM PDT ther, Faculty - 011 2:15 PM PDT Avis Lopez M D - 10/26/2010 10:30 AM PDTAssociated Order(s): ANESTHESIA/SEDATION; ANESTHESIA/SEDATION ther, Facult y - 10/26/2010 8:44 AM PDTAssociated Order(s): ANESTHESIA/SEDATION; ANESTHESIA/SEDATION Avis Lopez M D - 10/26/2010 7:30 AM PDTAssociated Order(s): HB TAPE TVT GYNECAREProcedure(s): HB TAPE TV T GYNECARE; HB TAPE TVT GYNECAREPre-Procedure Diagnose(s): ZAK (stress urinary incontinence) ; Intrinsic sphincter deficiency (ISD); ZAK (stress urinary incontinence); Intrinsic sphinct er deficiency (ISD)Post-Procedure Diagnose(s): ZAK (stress urinary incontinence); Intrinsic sphincter deficiency (ISD); ZAK (stress urinary incontinence); Intrinsic sphincter deficienc y (ISD)Preoperative Diagnosis(es): Stress urinary incontinence with ISD Postoperative Diagnosis(es): Stress urinary incontinence with ISD Procedures Performed: Tension-free vaginal tape and cystoscopy. Surgeon: Gillian Rios Estimated Blood Loss: 10cc Anesthesia: MAC plus local. Cystoscopic Findings: Normal bladder mucosa. No trauma to the bladder. Complications: None. Procedure: The patient was prepped and draped in the usual sterile fashion after satisfactory IV sedat ion had been obtained with the patient [facility]. Prior to the be ginning of the procedure, the team paused to verify the patient s identity, the procedure to be performed (in accordance with the consent,) and the correct side/site. The patient was positioned appropriately. We addressed antibiotic prophylaxis and fluids for irrigation as applicable to this patient. Any safety precautions were addressed. Examination under anesthesia was consistent with office examination of fixed urethra. A 10 mL of 1% lidocaine with epinephrine was injected into each of 2 sites on the anterior abdominal wall, one 2 fingerbreadths to the left and the other 2 fingerbreadth s to the right of the midline. Injection was carried out of the skin, the subcutaneous tissu e, the fascia, and the intended tract of the TVT trocar through the retropubic space. A stab wound was made at each of these injection sites. Attention was now turned to the vaginal fi eld where an 18-Bahamian Fuentes catheter was introduced into the patient's urethra, and the urine was dr ained. The anterior vaginal wall over the location of the mid urethra was then injected with 1% lidocaine with epinephrine injected in the mid portion of the vagina and the lateral asp ects heading to the inferior surface of the pubic bone bilaterally. Two Allis clamps were th en placed approximately 2 cm apart with the mid portion of the Allis clamps corresponding to t he mid portion of the urethra as determined by palpation of the Fuentes within the patient's u rethra. A scalpel was then used to incise between the 2 Allis clamps, and Metzenbaum scissor s were used to dissect the vaginal mucosa off the overlying urethra heading to the inferior surface of the pubic bone bilaterally. A rigid catheter guide was then introduced into the Fuentes catheter, and the external urethra was deviated to the patient's right which moved the internal urethra to the patient's left. The TVT Exact trocar coupled to the plastic introdu cer sheath was now placed through the right sided anterior vaginal wall channel, and the tro car was rotated through the right retropubic space with careful attention being paid to stay beneath and behind the pub ic bone as it rotated through the space up to the previously made stab wound on the right an terior abdominal wall. On this side scar tissue was encountered likely corresponding to the prior slings. The TVT trocar was uncoupled from the introducer and the mesh was tagged. Th e rigid catheter guide was again introduced into the 18-Bahamian Fuentes catheter, and the exter nal urethra was deviated to the patient's left which moved the internal urethra to the patie nt's right. The TVT Exact trocar was now introduced into the left anterior vaginal wall guy alan and rotated through the left retropubic space with careful attention being paid to stay beneath and behind the pubic bone as it rotated through this site up to the previously made stab wound on the left anterior abdominal wall. No scar tissue was encountered on this side. 70-degree cystoscopy confirmed no trocar placement or any trauma to the bladder. Therefore , the bladder was drained, and the mesh was brought through the abdominal wall site where it was tagged and cut. The mesh was now brought to sit underneath of the urethra without any t ensioning at all as determined by a hemostat used as a spacer between the urethra and the sl ing. The bladder was retrograde filled with approximately 200 cc of sterile Water as the pa tient was not able to hold any more than this due to spontaneous leakage across her urethra due to ISD, and the patient was brought up from her IV sedation. She was asked to repetitive ly cough. With the mesh sitting loose underneath of the urethra without any tensioning at al l but parallel to the floor and repetitive coughing, she was noted to have a small amount of urinary leakage. No additional tensioning was desired d ue to risk for urinary retention therefore, the hemostat as a spacer was used to stabilize t he position of the mesh as plastic sheaths were removed through the abdominal wall site. The skin wounds were closed with the use of skin glue after trimming the mesh. The vaginal woun d was closed with a running stitch of 3-0 Dexon. This closure was somewhat difficult due to her l ichen sclerosis and scarring from prior surgery but no mesh was left exposed. Hemostasis wa s noted to be excellent throughout, and final sponge, instrument, and needle count was noted to be correct. The patient was moved back to the preoperative holding area in stable condit ion having tolerated the procedure well. ther, Faculty - 10/25/2010 4:43 PM PDT ther, Faculty - 011 2:28 PM PDT documented in this encou nter Miscellaneous Notes Scan - Other, Faculty - 10/30/2010 2:15 PM PDT can - Other, Faculty - 10/30/2010 2:15 PM PDT can - Other, Faculty - 10/30/2010 2:15 PM PDT can - Other, Faculty - 10/30/2010 2:15 PM PDT vis Lockhart MD - 10/26/2010 3:16 PM PDT vis Bynum MD - 10/25/2010 4:55 PM PDT Avis Brand MD - 10/25/2010 3:32 PM PDT documented in this encounter Plan of Treatment +--------+ + + + + | Date | Type | Specialty | Care Team | Description | +--------+ + + + + | 12/28/ | Telephone-S | Hematology & | Rodriguez Bower MD | | | 2020 | suyapa | Oncology | [address] | | | | | | [place], [place] | | | | | | [address] | | | | | | [phone] | | | | | | | [...] | Procedure Note | + + | Other, Faculty - 10/26/2010 8:44 AM PDT | | [...]
--- OUTSIDE RECORDS SUMMARY | ~2020-02-10 | XMS | Encounter Summary ---
Demographics + + + | Address | [address] | | | [place] [address] | + + + | Home Phone | | + + + | Preferred Language | Unknown | + + + | Marital Status | | + + + | Advent Affiliation | Unknown | + + + | Race | White | + + + | Ethnic Group | Not or | + + + Author + + + | Author | [facility] | | | and [place] | + + + | Organization | [facility] | | | [...] + | Matthew Ramirez | ECON | [address] | | | | | [place] | | | | | [address] | | + + + + + Care Team Providers + +------+ + | Care Compliance Auditor Name | Role | Phone | + [...] | | | | | | NM REPAIR OF | | | | | [...] + + + + | 02/13/ | Anesthesia | [facility] | Mayank Honeycutt, | | | 2018 | Event | HOSP[facility] | [address] | | | | | [address] | [place] [address] | | | | | [place], [place] | [phone] | | | | | [address] | | | | | | [phone] | | | +--------+ + + + + Anesthesia Record + + + + + | Procedure Name | Responsible | Anesthesia Start | Anesthesia Stop Time | | | Anesthesiologist | Time | | + + + + + | ARTHROPLASTY 3rd and | Mayank Honeycutt, | 02/13/18 1306 | 02/13/18 1440 | | 4th Digits with | ROAD CLEANER | | | | Impalnt Revision | | | | | (Left Metatarsal) | | | | + + + + + +----+---+ + + | Da | T | Event | Comment | | te | i | | | | | m | | | | | e | | | +----+---+ + + | 10 | 1 | | | | /0 | 2 | | | | 5/ | 4 | | | | 20 | 9 | | | | 18 | | | | +----+---+ + + | | 1 | An Checkout | Pre-use anesthesia machine/equipment checkout. | | | 3 | | | | | 0 | | | | | 5 | | | +----+---+ + + | | 1 | An Start | Reassessment prior to anesthesia induction/procedure. | | | 3 | | | | | 0 | | | | | 6 | | | +----+---+ + + | | 1 | Pre-Procedu | | | | 3 | ral Timeout | | | | 1 | Completed | | | | 2 | | | +----+---+ + + | | 1 | Breathing | | | | 3 | Spontaneous | | | | 1 | ly | | | | 7 | | | +----+---+ + + | | 1 | First | | | | 3 | Inc/Proc St | | | | 2 | | | | | 8 | | | +----+---+ + + | | 1 | An Tourn | | | | 3 | Inflated | | | | 2 | | | | | 9 | | | +----+---+ + + | | 1 | An Tourn | | | | 4 | Deflated | | | | 3 | | | | | 5 | | | +----+---+ + + | | 1 | Moving | | | | 4 | Purposefull | | | | 4 | y | | | | 0 | | | +----+---+ + + | | 1 | Quick Note | Pt A&O x3, comfortable, conversing, return to [facility] in bed. | | | 4 | | | | | 4 | | | | | 0 | | | +----+---+ + + | | 1 | An Stop | Patient handed off to recovery nurse. | | | 4 | | | | | 0 | | | +----+---+ + + +------+ | Meds | +------+ + + + | Name | Total | + + + | midazolam 1 mg/mL (2 mL vial) | 2 mg | + + + | fentaNYL | 100 mcg | + + + | propofol | 523.79 mg | + + + | lactated ringers (Infusion) | 0 mL | + + + [...] Removal | +--------+ + + + | Read | 07/04/17; 0938; Left; foot; | 07/04/17 0938 by | 08/04/18 1342 by | | only - | 08/04/18 (Completed/Removed by | Jessica Gore RN | User Epic | | | Utility); 1342 (Completed/Removed | | | | Incisi | by Utility) | | | | on | | | | +--------+ + + + | Drain/ | 07/04/17; 0951; #1; Left; foot; | 07/04/17 0951 by | 08/03/18 1643 by | | Device | evacuation tube; 08/03/18 | Jessica Gore RN | User Epic | | Site | (Removed/Completed by utility); | | | | | 1643 (Removed/Completed by | | | | | utility) | | | +--------+ + + + | Periph | 02/13/18; 1250; Left; | 02/13/18 1250 by | 02/13/18 1530 by | | eral | Antecubital; [id number] | Steve Parry RN | Cassie Washington RN | | IV | catheter system; 20 gauge; no | | | | | longer indicated, catheter/device | | | | | intact; expected removal post | | | | | discharge; 02/13/18; 1530 | | | +--------+ + + + | Read | 02/13/18; 1450; Right; foot; | 02/13/18 1450 by | 08/04/18 1342 by | | only - | 08/04/18 (Completed/Removed by | Ene Boyer RN | User Epic | | | [...] encounter [place] Notes Anesthesia Postprocedure Evaluation - Mayank Honeycutt CRNA - 02/13/2018 4:57 PM PDTForma tting of this note might be different from the original. ANESTHESIA POSTANESTHESIA EVALUATION Ashly Ramirez 77 y.o. female 1940 [id number] Procedure(s) ARTHROPLASTY 3rd and 4th Digits with Impalnt Revision (Left Metatarsal) Cooperates? Yes Mental Status Performs simple tasks. Respiratory Satisfactory - Airway patent (self maintained). Cardiovascular Satisfactory - Blood pressure and heart rate acceptable Temperature Satisfactory Pain Satisfactory N/V Control Satisfactory Hydration Satisfactory - No signs of dehydration Complications None apparent Vitals: 02/13/18 1455 02/13/18 1525 BP: (!) 133/101 128/50 Pulse: 65 73 Temp: 36.6 C (97.9 F) Resp: 16 16 SpO2: 99% 95% Electronically signed by Mayank Honeycutt CRNA 02/13/2018 16:57 [facility] 4 :57 PM PDTAnesthesia Preprocedure Evaluation - Mayank Honeycutt CRNA - 02/13/2018 12:42 PM PDT ANESTHESIA PREANESTHESIA EVALUATION Ashly Ramirez 77 y.o. female 1940 [id number] Procedure(s): ARTHROPLASTY 3rd and 4th Digits with Impalnt Revision (Left Metatarsal) Medical history, anesthesia, medications, allergy, NPO status verified histories reviewed. Review of Systems / Med History Anesthesia History No anesthesia complications. Cardiovascular Negative except where noted below. Pulmonary (+) shortness of breath, COPD Neurology (+) fibromyalgia Renal Negative except where noted below. Endocrine (+) hypothyroidism Other (+) arthritis Physical Exam Airway MP II, TM >3 FB, Mouth opening <2 FB. Neck: full ROM, extends >30 degrees. Dental Bala ssly normal except where noted below.; (+) Age appropriate dentition. CV Rhythm regular. Rate normal. Pulm Clear to auscultation bilaterally. Anesthesia Plan ASA 2 Type: MAC. Induction: Intravenous. Potential problems: None anticipated. Monitors: Standard ASA monitors. Consent statement:Anesthetic plan, alternatives, risks and benefits discussed with patient. Risks discussed included (but were not limited to): nausea, pain, . Consenting person understands and agrees to proceed. Anesthesia consent form used. Electronically Signed by: Mayank Honeycutt CRNA ESig date/time: 02/13/2018 12:42 documented in this encounter Plan of Treatment Not on filedocumented as of this encounter Visit Diagnoses Not on filedocumented in this encounter Administered Medications + +--------+ +--------+------+------+ | Medication Order | MAR | Action | Dose | Rate | Site | | | Action | Date | | | | + +--------+ +--------+------+------+ | fentaNYL (PF) injection | Given | 02/14/20 | 25 mcg | | | | Intravenous, PRN, Pain, Starting | | 18 2:07 | | | | | 02/13/18 at 1313, Anesthesia | | PM PDT | | | | | Intra-op | | | | | | + +--------+ +--------+------+------+ +-------+ +--------+---+---+ | Given | 02/14/20 | 25 mcg | | | | | 18 1:54 | | | | | | PM PDT | | | | +-------+ +--------+---+---+ | Given | 02/14/20 | 25 mcg | | | | | 18 1:36 | | | | | | PM PDT | | | | +-------+ +--------+---+---+ +---+---+ | | | +---+---+ + +---------+ +---+---+---+ | lactated ringers (LR) infusion | New Bag | 02/14/20 | | | | | Intravenous, CONTINUOUS PRN, | | 18 1:06 | | | | | Starting 02/13/18 at 1306, | | PM PDT | | | | | Anesthesia Intra-op | | | | | | + +---------+ +---+---+---+ +---+---+ | | | +---+---+ + +-------+ +------+---+---+ | midazolam (VERSED) 1 mg/mL | Given | 02/14/20 | 2 mg | | | | injection Intravenous, PRN, | | 18 1:10 | | | | | Anxiety, Starting Fri02/13/18 at | | PM PDT | | | | | 1310, Anesthesia Intra-op | | | | | | + +-------+ +------+---+---+ +---+---+ | | | +---+---+ + + + + +-------+---+ | propofol (DIPRIVAN) injection | Rate/Dos | 02/14/20 | 75 | 40.8 | | | Intravenous, CONTINUOUS PRN, | e Change | 18 1:28 | mcg/kg/m | mL/hr | | | Starting Fri02/13/18 at 1313, | | PM PDT | in | | | | Anesthesia Intra-op | | | | | | + + + + +-------+---+ +---------+ + +-------+---+ | New Bag | 02/14/20 | 100 | 54.4 | | | | 18 1:13 | mcg/kg/m | mL/hr | | | | PM PDT | in | | | +---------+ + +-------+---+ +---+---+ | | | +---+---+ documented in this encounter"
--- OUTSIDE RECORDS SUMMARY | ~2020-02-10 | XMS | Encounter Summary ---
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 | [address] | Gabriele | | | | | (ISD) | [address] | [address] | | | | | Urinary | Rd | floor | | | | | stress | [place], [place] | [place], [place] | | | | | incontinence | [address] | [address] | | | | | Procedures | Phone: | Phone: | | | | | REQUEST TO | [phone] | [phone] | | | | | SURGERY | Fax: | Fax: | | | | | INTEGRATION AIDE | [phone] | [phone] | | | | | [place] | | | | | | | CYSTOURETHRO | | | | | | | [place] | | | | | | [...] | 2010 | Visit | [facility] | MD Gillian [address] | (Primary Dx) | | | | [address] | [address] | | | | | [place] [address] | [place], [place] | | | | | [address], [facility] floor | [address] | | | | | [place], [place] | [phone] | | | | | [address] | | | | | | [phone] | | | +--------+---------+ + + + [...] not choose to start anti-cholinergics as jaun casey recommended talking with her PCP about resuming a diuretic for bilateral pedal edema that i s leading to nocturia and leakage documented in t his encounter Plan of Treatment +--------+ + + + + | Date | Type | Specialty | Care Team | Description | +--------+ + + + + | 05/08/ | Telephone-S | Hematology & | Rodriguez Bower MD | | | 2020 | cheduled | Oncology | [address] | | | | | | [place], [place] | | | | | | [address] | | | | | | [phone] | | | | | | | | +--------+ + + + + documented as of this encounter Visit Diagnoses + + | Diagnosis | + + | Postop check - Primary Follow-up examination, following unspecified surgery | + + documented in this encounter"
--- OUTSIDE RECORDS SUMMARY | ~2020-02-10 | XMS | Encounter Summary ---
Demographics + + + | Address | [address] | | | [place] [address] | + + + | Home Phone | | + + + | Preferred Language | Unknown | + + + | Marital Status | | + + + | Quaker Affiliation | NRP | + + + | Race | White | + + + | Ethnic Group | Not or | + + + Author + + + | Author | [facility] | + + + | Organization | [facility] | + + [...] Providers + +------+ + | Care Price Analyst Name | Role | Phone | [...] Visit | Medicine Clinic at | T, DIRECTOR OF ACADEMIC SUPPORT-C,MPH | Preop examination; | | | | [facility] 4th Floor [address] | | Diabetes mellitus | | | | [address] | | screening; Other | | | | Mailcode: CH4S | | specified | | | | [facility] | | pre-operative | | | | and Healing, | | examination | | | | Building [address],[facility] Floor | | | | | | [place], [place] | | | | | | [address] | | | | | | [phone] | | | +--------+---------+ + + + [...] encounter Patient Instructions Patient Instructions Vy Sosa, NAVEEN,MPH - 10/25/2010 1:01 PM PDTPREOPERATIVE INSTRUCTIONS Do [...] % (0.1 mg/g) Vaginal Cream folic acid Azobtwdesmo-Kktvwuxey-Ysk C-Mn (GLUCOSAMINE CHONDROITIN MAXSTR)- HOLD 7 days [...] OR NON-STEROIDAL ANTI-INFLAMMATORY DRUGS (NSAIDs) Advil, Aleve, Roxanne-Raymore, Anacin, Arthopan, Ascriptin, Aspergum, Aspirin with and [...] Phenylbutazone, Piroxicam, Propoxyphene, Relafen, Robomol, Rufen, Sine-aid, [place] s cold tablets, Sulindac, Talwin, Tolectin, Triaminicin, [...] perfume, lotions or powder. Remove any nail chinese from at least one fingernail. Do not [...] Surgery Check in Locations Day Stay Unit [phone], [facility], fourth floor Room 5713 Surgery Check in Time Check-in times for Hospital Admissions are not available until the day prior to surgery. So meone from your surgeon's office or the hospital will contact you with your check in time. I f you do not hear from anyone by 3:00 PM please call your surgeons' office for [id number] . Going Home Your surgeon will decide [...] it is after office hours, call the [facility] featheredge machine operator at [phone] and ask them to page your doc [...] Scanned H&P. H and P entered into Centricity(Chart review, Media tab). Vy Sosa RN, KAELA, MPH PREOPERATIVE MEDICINE CLINIC [address] Mail Code: [address] [facility] [address] documente d in this encounter Plan of Treatment +--------+ + + + + | Date | Type | Specialty | Care Team | Description | +--------+ + + + + | 05/08/ | Telephone-S | Hematology & | Rodriguez Bower MD | | | 2020 | suyapa | Oncology | [address] | | | | | | [place], [place] | | | | | | [address] | | | | | | [phone] | | | | | | | | +--------+ + + + + documented as of this encounter Procedures + +--------+ + + + | Procedure Name | Priori | Date/Time | Associated Diagnosis | Comments | | | ty | | | | + +--------+ + + + | NV COLLECTION VENOUS | Routin | 10/25/2010 | [...] 4.0 - 5.7 % | [facility], | | | A1C,POC | | | [...] + + | DANISHA FARIAS | [address] [facility] | [place] [address] | | | OF CARE TESTS | [...] | | | DEPARTMENT | | | CYPRIOT | | | OF | | | [...] DEPARTMENT OF | [address] | [place] [address] | | | PATHOLOGY | [address] [...] | + + + + + | [place] DEPARTMENT | [address] | [place] [address] | | | PATHOLOGY | [address] [...] + + + + | [facility] | [address] | [place] [address] | | | PATHOLOGY | [address] [...]
--- OUTSIDE RECORDS SUMMARY | ~2020-02-10 | XMS | Encounter Summary ---
Demographics + + + | Address | [address] | | | [place] [address] | + + + | Home Phone [...] | Author | [facility] | | | and [place] | + + + | Organization | [facility] | | | [...] + | Matthew Ramirez | ECON | [address] | | | | | [place] | | | | | [address] | | + + + + + Care Team Providers + +------+ + | Care Reinforcement Maker Name | Role | Phone | [...] | | | unspecified | | [place] [address] | | | | | type | | Phone: | | | | | Chronic | | [phone] | | | | | abdominal | | Fax: | | | | | pain | | [phone] | | | | | Benzodiazepi | [...] | | | | | | | NE | | | | | | | ESOPHAGOGAST | | | | | | | RODUODENOSCO | | | | | | | PY TRANSORAL | | | | | | | DIAGNOSTIC | | | | | | | NE EGD | | | | | | | TRANSORAL | | | | | | | BIOPSY | | | | | | | SINGLE/MULTI | | | | | | | PLE NE | | | | | | | COLONOSCOPY | | | | | | | FLX DX | | | | | | | W/COLLJ SPEC | | | | | | | WHEN PFRMD | | | | | | | NE | | | | | | | COLONOSCOPY | | | | | | | W/BIOPSY | | | | | | | SINGLE/MULTI | | | | | | | PLE NE | | | | | | | COLSC FLX | | | | | | | W/RMVL OF | | | | | | | TUMOR POLYP | | | | | | | LESION SNARE | | | | | | | TQ NE | | | | | | | [...] | Anesthesia | [facility] | Devon uMrdock | | | 2019 | Event | MED CTR [facility] INTRA OP | DO Matthew [address] | | | | | [address] | [address] | | | | | [place] | [place] [address] | | | | | [address] | [phone] | | | | | [phone] | | | +--------+ + + + [...] by | 12/17/18 1622 by | | eral | [id number] catheter system; | Gris Davis RN | [...] encounter [place] Notes Anesthesia Postprocedure Evaluation - Devon Murdock DO - 12/17/2018 4:43 PM PDTFor matting of this note might be different from the original. ANESTHESIA POSTANESTHESIA EVALUATION Ashly Ramirez 78 y.o. female 1940 [id number] Procedure(s) EGD (N/A Mouth) COLONOSCOPY (N/A Rectum) Cooperates? Yes Mental Status Performs simple tasks. Respiratory Satisfactory - Airway patent (self maintained). Cardiovascular Satisfactory - Blood pressure and heart rate acceptable Temperature Satisfactory Pain Satisfactory N/V Control Satisfactory Hydration Satisfactory - No signs of dehydration Vitals Value Taken Time Temp 36.5 C (97.7 F) 12/17/2018 16:02 Pulse 81 12/17/2018 16:17 Resp 12 12/17/2018 16:02 BP 143/78 12/17/2018 16:15 Arterial Line BP Arterial Line BP 2 SpO2 99 % 12/17/2018 16:17 Vitals shown include unvalidated device data. Electronically signed by Devon Murdock DO 12/17/2018 16:43 [facility] nesthesia Preprocedure Evaluation - Devon Murdock DO - 11/2018 2:52 PM PDT ANESTHESIA PREANESTHESIA EVALUATION Ashly Ramirez 78 y.o. female 1940 [id number] Procedure(s): EGD (N/A Mouth) COLONOSCOPY (N/A Rectum) Medical,anesthesia, drug, allergy histories reviewed, NPO status verified. ECG reviewed. Labs reviewed. . Review of Systems / Med History Anesthesia History (-) PONV, difficult intubation, malignant hyperthermia . Cardiovascular , Exercise tolerance >4 METS(+) history of heart murmur (+) hypertension, ( -) coronary artery disease. (+) valvular problems/murmurs : MR . . Pulmonary (+) Chronic Obstructive Pulmonary Disease. (-) sleep apnea. (+) asthma. Gastrointestinal/Hepatic (+) hypercholesterolemia, diverticulitis. (-) acid reflux. Renal No results found for: CREA, BUN, NA, K, CL, CO2 . (-) end-stage renal disease. Endocrine (+) hypothyroidism. (-) Diabetes. Hematology/Other No results found for: WBC, HGB, HCT, MCV, LABPLAT, PLT . Cancer Cervical cancer . Neuromuscular (+) arthritis, chronic pain, fibromyalgia. Psychology (+) psychiatric history of anxiety. Additional Comments: Benzodiazepine dependence Physical Exam Airway MP II, TM >3 FB, Mouth opening >2 FB. Neck: full ROM, extends >30 degrees. Jaw protrus ion normal. Dental ; Patient denies loose, chipped or missing teeth (+) Age appropriate dentition. CV Rhythm regular. Rate normal. (-) murmur. Pulm Clear to auscultation bilaterally. Neuro Grossly normal. Anesthesia Plan ASA 3 (copd, htn, mr, benzodiazepine dependence ) Type: General, TIVA. Induction: Intravenous. Potential problems: None anticipated. Monitors: Standard ASA monitors. Consent statement:Anesthetic plan, alternatives, risks and benefits discussed with patient. discussed risks to teeth, heart problems, pain, perioperative CV events, respiratory events , sore throat. Consenting person understands and agrees to proceed . PARQ. Intravenous induction to loss of reflexes. Spontaneous ventilation throughout. Risk of as piration and hypoxia with endoscopy under TIVA explicitly discussed and patient desires to p roceed. Electronically Signed by: DO Keely House date/time: 12/16/2018 14:52 documented in th is encounter Miscellaneous Notes Anesthesia Post-op Handoff - Devon Murdock DO - 12/17/2018 4:01 PM PDTFormatting o f this note might be different from the original. ANESTHESIA HANDOFF NOTE Ashly Ramirez 78 y.o. female 1940 [id number] The following were completed during the transfer [...] of understanding of report from receiving team EGD (N/A Mouth) COLONOSCOPY (N/A Rectum) Patient Location: Phase II Handoff Protocol Used: post-procedure handoff checklist completed Condition: sedated Airway/O2: other (see comments) Multimodal analgesia: multimodal analgesia not used between 6 hours prior to anesthesia sta rt to PACU discharge Analgesics allergies?: Patient does not have documented allergies to multiple classes of an algesics Comments: Supplemental Oxygen administered as necessary to maintain oxygen saturations abov e 92%. If the surgery does not typically require Narcotics then Multi-Modal Analgesia is not indic ated. The significant anesthesia concerns and VS in Epic were reviewed with the receiving team. Devon Murdock DO 12/17/2018 16:01 [facility] documented in this encounter Plan of Treatment [...]
--- OUTSIDE RECORDS SUMMARY | ~2020-02-10 | XMS | Encounter Summary ---
Demographics + + + | Address | [address] | | | [place] [address] | + + + | Home Phone [...] Author | [facility] | | | and [place] | + + + | Organization | [facility] | | [...] + | Matthew Ramirez | ECON | [address] | | | | | [place] | | | | | [address] | | + + + + + Care Team Providers + +------+ + | Care Stenographic Court Reporter Name | Role | Phone | + +------+ + PCP | Unavailable | + +------+ + Encounter Details +--------+ + + + + | Date | Type | Department | Care Team | Description | +--------+ + + + + | 01/26/ | Hospital | [facility] | | | | 2008 | Encounter | MED CTR XRAY [address] | | | | | | [address] | | | | | | [place] [address] | | | | | | [phone] | | | +--------+ + + + [...]
--- OUTSIDE RECORDS SUMMARY | ~2020-02-10 | XMS | Encounter Summary ---
Demographics + + + | Address | [address] | | | [place] [address] | + + + | Home Phone | | + + + | Preferred Language | Unknown | + + + | Marital Status | | + + + | Yazidi Affiliation | NRP | + + + [...] Team Providers + +------+ + | Care Hospital Director Name | Role | Phone | [...] | | | Gastric | MD [address] | | | | | | mian | [address] | | | | | | bhargav ([facility]) | [place], | | | | | | Procedures | [place] | | | | | | CT ABDOMEN | [address] | | | | | | AND PELVIS W | Phone: | | | | | | IV CONTRAST | [phone] | | | | | | | Fax: | | | | | | | [phone] | | + +--------+ + + + [...] | | | Gastric | MD [address] | | | | | | mian | [address] | | | | | | bhargav ([facility]) | [place], | | | | | | Procedures | [place] | | | | | | [place]ST [place] | [address] | | | | | | CONTRAST | Phone: | | | | | | | [phone] | | | | | | | Fax: | | | | | | | [phone] | | + +--------+ + + + + Encounter Details +--------+ + + + + | Date | Type | Department | Care Team | Description | +--------+ + + + + | 01/28/ | Back Hanger | Surgical Oncology | Cristel Galicia MD | 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 | [place], [place] | (Primary Dx) | | | | Health and Healing, | [address] | | | | | [facility] | [phone] | | | | | [place], [place] | | | | | | [address] | | | | | | [phone] | | | +--------+ + + + [...] [address] | | | | | | [place], [place] | | | | | | [address] | | | | | | [phone] | | | | | | | | +--------+ + + + + + +------+--------+ + + | Name | [...] Preliminary: Ravindra Allison MD Dictation initiated: Ravindra | | | MD Estefany 02/02/2019 5:11 PM | | + + [...]
--- OUTSIDE RECORDS SUMMARY | ~2020-02-10 | XMS | Encounter Summary ---
Demographics + + + | Address | [address] | | | [place] [address] | + + + | Home Phone [...] Team Providers + +------+ + | Care Development Technical Lead Name | Role | Phone | + +------+ + | Long Copeland MD | PCP | | + +------+ + Reason for Visit Consultation (Routine) + +---------+ + + + + | Status | Reason | Specialty | Diagnoses / | Referred By | Referred To | | | | | Procedures | Contact | Contact | + +---------+ + + + + | New Request | Other | Hematology & | Diagnoses | Mitri, | Hem Faculty | | | | Oncology | Metastatic | Rodriguez Hong MD | [facility] [address] | | | | | breast | [address] | [address] | | | | | cancer (HCC) | Ave | Center for | | | | | Procedures | [place], [place] | [facility] and | | | | | CONSULT TO | [address] | Healing, | | | | | ADULT OUTPT | Phone: | Building [address] | | | | | SUPPORTIVE | [phone] | [place], [place] | | | | | ONCOLOGY/PAL | Fax: | [phone] | | | | | LIATIVE | [phone] | Phone: | | | | | MEDICINE | | [phone] | | | | | | | Fax: | | | | | | | [phone] | + +---------+ + + + + Encounter Details +--------+ + + + + | Date | Type | Department | Care Team | Description | +--------+ + + + + | 10/28/ | Telephone-S | [facility] | Tono Hairston S, | | | 2020 | cheduled | Clinics at S | EVENT PRODUCER [address] | | | | | [address] | [place], [place] | | | | | [address] [place] for | [address] | | | | | Health and Healing, | [phone] | | | | | Building [address] | | | | | | [place], [place] | | | | | | [address] | | | | | | [phone] | | | +--------+ + + + [...] documented as of this encounter Progress Notes Tono Hairston, YULI - 10/29/2019 9:45 AM PDTSupportive Oncology/Palliative Medicine Clini c Ashly Ramirez is a 78 y.o. YO with metastatic breast cancer. I am consulted by Dr. Bower to assist with pain and symptom management, advance care planning. THIS VISIT CONDUCTED VIA PHONE IN LIGHT OF COVID-19 PRECAUTIONS. Assessment and Plan: Diagnoses and all orders for this visit: Metastatic breast cancer (HCC) Chronic pain syndrome Palliative care by specialist Advance care planning #Metastatic breast cancer: diagnosed 2019 after persistent LUQ pain. Site of primary was di fficutl to ascertain. Ultimately, diagnosed with metastatic lobular breast cancer. Started t amoxifen but changed to letrozole with progression. Reports she is largely asymptomatic toda y, other then when she is having intermittent SBO symptoms, likely associated with metastati c lesions. So far, these have resolved with NGT decompression, and Ashly denies daily gastri c discomfort. Continues letrozole and reports last PET (completed at OSH) was stable. Plan: -Continue letrozole per Dr. Bower -No follow up scheduled with , though has clearly had close phone follow up. Will reach out to Dr. Bower/Naa re: when formal follow up appointment (phone/video/in-person) is needed #Pain: As above, Ashly reports that her abdominal pain is transient (though severe) and has generally been relieved with NGT decompression. Reports she does suffer with chronic pain r elated to OA and fibromyalgia for 20+ years. I reviewed that, at times, letrozole or other c ancer therapies can seem to exacerbate areas of chronic pain. Ashly does not feel that this is the case for her. Reports FM/OA are managed by PCP's office. She is taking duloxetine (wh ich she feels is helpful, because she notes a large increase in pain if she forgets to take this.) She has tried gabapentin in the past, but didn't find it helpful and her doctor took her off this as the PCP "didn't like" this medication. Could consider pregabalin, which is g enerally effective for pain related to fibromyalgia. However, sAhly is already on several me dications for pain mood (duloxetine, xanax bid, doxepine) and is hesitant to add more daily medications. Especially given her age, I do have concern for polypharmacy and, as Ashly repo rts that she is generally functional and able to do what she needs to do, I don't feel stron gly compelled to add this. In terms of malignant pain, per Ashly's description today, this is not constant and relate d to adhesions/SBO (though prior notes do indicate some ongoing abdominal). Given associatio n with motility, would generally avoid regular use of opioid for pain of this etiology, as i t may be likely to worsen underlying motility issues. Obviously, depending on severity of pa in and, for example, if hospitalized with NGT, would certainly find judicious use of opioids appropriate. However, ideally should be avoided on a daily basis. Ashly does take tramadol intermittently for pain. Given that this is preferred for fibromy algia and other central sensitization syndromes, this is a good choice for Ashly. She attemp ts to minimize use of this, which I encouraged as tramadol can interact with her other medic ations and does slow bowel transit. Ashly prefers to continue to follow up with PCP for management of fibromylagia. She has so ught specialty evaluation for this in the past, and feels her current medication regimen is likely managing things as well as possible (which, given the multimodal nature of her pain c ontrol, I think is true). Palliative Care is certainly happy to be involved in pain manageme nt at any time, especially if Ashly experiences worsening malignant pain. Plan: -Reports intermittent (though severe) abdominal pain associated with adhesions/SBOs--this resolves once SBO resolves -Chronic pain related to fibromyalgia/OA for 20+ years -Continue duloxetine for pain related to fibromyalgia -Could consider pregabalin (evidence-based for fibromyalgia; however, given her other medi cations including duloxetine, xanax, doxepine and prior lack of effectiveness with gabapenti n, don't strongly advocate for this) -Continue tramadol as needed--while will cause some bowel hypomotility, this is likely bes t as needed medication for FM pain -Opioids appropriate for pain associated with SBO (though may worsen motility) or for pain clearly due to cancer -For now, patient prefers PCP to manage pain concerns. Let her know that Palliative Care i s available anytime for consultation on pain #Other symptoms: Ashly reports that she is generally capable of taking care of her home and , though acknowledges that this is not true when she is experiencing severe abdomina l pain. Ashly reports some fatigue and says that she struggles with anxiety (and has for yea rs) but that she doesn't feel that these things are worse. We briefly discussed concern on t he part of daughter Nella, and Ashly states that she knows that Nella worries about her and th at Nella herself may be overwhelmed at times, leading Nella to contact our office with symptom concerns. I let Ashly know that, in Palliative Care, our goal is to focus on symptom manage ment and quality of life concerns for those living with serious illness, its symptoms, and s akash effects of treatment. She is very pleasant and states she is grateful for the call, but denies major symptom concerns now. Also reports she maintains very close follow up with PCP' s office, to whom she can turn for support with this. Plan: -Denies specific symptom concerns today -Reports has close relationship with PCPs office, who is also a resource for symptom manag ement -I reviewed role of Palliative Care in symptom management, and let Ashly know we are avail able if we can be helpful in the future. #Advance Care Planning: Ashly is uncertain about plan for follow up with Dr. Bower, though she did speak with him about results of most recent PET, which she says are stable. She does wish to continue letrozole, though expresses some uncertainty about what to expect with thi s (I.e. seems to know that disease isn't curable, but not sure whether she should expect dis ease to get smaller on letrozole or to stay stable). I will follow up with Dr. Bower's offic e to find out when he would like to have another formal OV with her (last 07/30/19). Ashly has an Advance Directive with daughter Nella as surrogate decision maker for healthca re. Per Ashly, this is on file at the hospital in [place] and at PCP's office. Ashly would not generally want aggressive interventions aimed at prolonging her life in the face of irr eversible health conditions (I.e. progression of cancer not responsive treatment) and has di scussed these wishes with Nella. Ashly does note that she is the primary caregiver for her , who has dementia. We di scussed caregiver respite programs, and Ashly states she is "looking into" some of these. [place] and I'm uncertain about program availability in her are a and the impact that Covid-19 may have on any existing programs. Per chart review, it seems daughter Nella has significant, understandable worry about Ashly 's ability to handle caregiving responsibilities, and also has concerns about poor symptom c ontrol. From Ashly's report, Ashly has concerns that Nella feels overwhelmed with worry and t his may result in Nella following up with our clinic about issues the Ashly is used to dealin g with. I also think it is entirely possible that Ashly is stoic and or doesn't feel situati on is changeable, so is resigned to difficulties of her current life. I will ask GEORGIA Muller to follow up with Nella/Ashly again. Appears Mamie left a me ssage for Nella on 10/18 regarding resources/coping assistance, which was not returned. Plan: -Some questions about goals of treatment (I believe understands disease isn't curable, but uncertain if should expect shrinkage or stability of disease) -No follow up with Dr. Bower currently scheduled. I will reach out and see whether this sh ould be scheduled (last formal OV 07/29/19, though multiple phone contacts between RNC, ALAINA Mathias and Nella and Ashly since that time). -Advance Directive on file with [place] [facility] and PCP's office. Daughter Nella is surr ogate decision maker for healthcare -OK with repeat hospitalizations for reversible issues. Per my understanding of Ashly's st atements today, would not want life-prolonging treatment in context of irreversible situatio n (I.e. worsening condition due to progressive disease). Wishes have been discussed with Tata hardy -Enjoys gardening, sitting in her yard, spending time with grandchildren, and is able to d o those things -Reviewed role of Palliative Care in facilitating discussions of how quality of life goals impact treatment decisions -High-degree of distress expressed by daughter. I'm unsure today whether Ashly is minimizi ng symptoms, having a good day, feels difficulty concerns (symptoms, caregiving burden with ) are not solveable, or if daughter has higher degree of distress than does patient. -Will ask SW to reach out re: potential caregiving assistance for , for whom Ashly is primary caregiver. Per chart review, GEORGIA Muller reached out 10/18, but this call wasn't returned. Follow up as needed for ongoing symptom management or advance care planning concern. Subjective/Objective: We discussed the following issues: All my pain has to do with fibromyalgia and OA. Rare times that has abdominal pain but this resolves with intermittent obstructions. "I don't feel that the cancer is causing a lot of pain at this point. It could...when I hav e these attacks [bowel blockages]" Has had NG tubes 5 times now, and on liquid diet. This relieves symptoms. Local surgeon "says my stomach is just a mess... I've got so much scar tissue, and when I h ave the blockages, the pain is horrendous." Thinks that daughter is more concerned with symptoms. I can't really say that I think there's anything that you can do for me. Takes medications etc but doesn't make pain go away. Only has belly pain with obstruction. Arthritis really bothersome in feet and ankles. Has history of surgery in feet. Has pain more with walking on concrete. Makes it challenging as live with who has dementia, and is caring for him. Fibromyalgia doesn't keep her awake, but aware of it. Pain is "everywhere" in my body "sometimes even in my face." "I've convinced myself that I can deal with this." Has been living with the chronic pain for several years--suggested that she see a psychiatr ist. Is on duloxetine. Notices that, if she forgets to take it, pain is elevated by end of the d ay. Takes alprazolam bid and doxepin qhs. Ashly Oliver is EVENT PRODUCER in Dr. Copeland's clinic (and is actually Ashly's PCP) and feels like the y get great care. Nella feels worried, overwhelmed. Ashly is working on getting some caregiving support for . Feels excellent information/communication from Dr. Bower. "I can't say that I might not hav e more questions in the future...but Dr. Bower has communicated with everybody great." Asks how response to medication is monitored. Did hear that recent PET was stable. Wonders about plan for follow up with Dr. Bower. Feels "a little like I'm in a ho-chunk, going around and around." Probably would benefit more discussion of this. Has Advance Directive with Nella as surrogate decision maker for healthcare. Hospital locally in [place] has a copy of this. Loves to garden "it kills me," but does this, and enjoys sitting and looking at garden. Als o spends time with grandchildren. Has preferences for aggressive care are listed in Advance Directive. Oncology History: Per Dr. 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 Antony of oncology at [facility], discussed getting EUS for furth er evaluation : EUS with gastric adenocarcinoma within the [...] obstruction (adhesion, metastatic carcinoma) 07/29/2019: switch to Letrozole... ASSESSMENT/PLAN Ms. Ashly Ramirez is a 78 [...] connect with her PCP to manage moving forward." Per further chart review, has had several follow up ED visit/hospital admissions for adhesi ons/SBO. 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 Lives in independently in [facility]. Enjoys gardening, spending time with grandchildren. Daughter Nella is large support. Pertinent Medical History: 20+ years chronic pain secondary to fibromyalgia, OA. Current Outpatient Medications: Acetaminophen 500 mg oral capsule, Take 2 capsules by mouth three times daily., Disp: 180 capsule, Rfl: 5 acetaminophen 500 mg oral tablet, Take 1,000 mg by mouth three times daily., Disp: , Rfl: ALPRAZolam 0.25 mg oral tablet, Take 0.25 mg by mouth three times daily as needed., Disp: , Rfl: ascorbic acid SR (VITAMIN C) 1,000 mg Oral Tablet, Take 1,000 mg by mouth two times daily., Disp: , Rfl: CALCIUM CARBONATE/VITAMIN D3 (CALCIUM 600 + D OR), Take by mouth., Disp: , Rfl: cyanocobalamin (VITAMIN B-12) 1,000 mcg Oral Tablet, Take 5,000 mcg by mouth once daily. , Disp: , Rfl: doxepin 75 mg Oral Capsule, Take 10 mg by mouth once daily at bedtime., Disp: , Rfl: DULoxetine (CYMBALTA) 60 mg Oral Capsule, Delayed Release(E.C.), Take 60 mg by mouth once d aily., Disp: , Rfl: fluticasone propion-salmeteroL 250-50 mcg/dose inhalation blister with device, Inhale 1 puf f two times daily., Disp: , Rfl: letrozole 2.5 mg oral tablet, Take 1 tablet by mouth once daily., Disp: 90 tablet, Rfl: 3 levothyroxine (LEVOTHROID) 112 mcg Oral Tablet, Take 112 mcg by mouth once daily., Disp: , Rfl: lisinopril 20 mg Oral Tablet, Take 20 mg by mouth once daily., Disp: , Rfl: polyethylene glycol 17 gram oral powder in packet, Mix 1 packet and take orally two times d aily., Disp: , Rfl: Psyllium Husk-Aspartame 3.4 gram oral powder in packet, Mix 1 packet and take orally once d aily., Disp: , Rfl: TRAMADOL 50 mg oral tablet, TAKE ONE TABLET BY MOUTH EVERY 8 HOURS NEEDED FOR MODERATE P AIN, Disp: 90 tablet, Rfl: 0 triamcinolone 55 mcg Nasal Aerosol, Breaks, Instill 2 Sprays into each nostril once daily., Disp: , Rfl: Exam: There were no vitals taken for this visit. A and O x3. No STML. Answers questions appropriately. Good insight. Pleasant. Patient agrees to a telephone encounter for today's visit. They understand they may be resp onsible for the balance after insurance processes the claim. The visit took place via telephone with the provider located at the distant site of [facility]. T he patient stated they were located at the originating site of home and were in the state of [place] at the time of the telephone visit. The names of all additional persons participatin g in the telephone visit and their roles are: Ashly Ramirez (patient). Time spent on the call: 36 min. The patients encounter was accomplished via a telephone call today due to COVID-19 precauti onary measures to limit the patient's unnecessary exposure. I spent 36 minutes on the phone with the patient (except charting). I spent > 50% in couns [facility] about history of chronic pain, abdominal pain with SBO, quality of life, advance care planning, and other issues as above. Tono Hairston NP [facility] [address] [place] [address] Kassandra Miller MA - 10/29/2019 9:45 AM PDTAlton unable to contact pt for COVID screening or Virtual Rooming prior to phone/virtual visit. Message left explaining the below day of expectations and resources . ? For all eVisits: o Expect provider contact + or - 20 min from appt start time ? For virtual visits only: o Log into [employer] ahead of time o Test diane/equipment functionality o Download Zoom Diane, no account needed o At appt time, they will need to follow the steps outlined in the "[facility] Virtual Visits" gu akash at [facility]/virtualprep o Provided below MyChart support information ? Advised pt to call back with any questions regarding appt MyChart Support: Fri-Fri 8a-5p [phone] [facility]/mychart Xander heller in this encounter Plan of Treatment +--------+ + + + + | Date | Type | Specialty | Care Team | Description | +--------+ + + + + | 05/08/ | Telephone-S | Hematology & | Rodriguez Bower MD | | | 2020 | cheduled | Oncology | [address] | | | | | | [place], [place] | | | | | | [address] | | | | | | [phone] | | | | | | | | +--------+ + + + + documented as of this encounter Visit Diagnoses + + | Diagnosis | + + | Metastatic breast cancer (HCC) - Primary | + + | Chronic pain syndrome | + + | Palliative care by specialist | + + | Advance care planning Other specified counseling | + + documented in this encounter
--- OUTSIDE RECORDS SUMMARY | ~2020-02-10 | XMS | Encounter Summary ---
Demographics + + + | Address | [address] | | | [place] [address] | + + + | Home Phone [...] Team Providers + +------+ + | Care Naval Architect Name | Role | Phone | [...] | Oncology | Tumor | MD [address] | [facility] [address] | | | | | Procedures | [address] | [address] | | | | | CONSULT TO | [facility], | Center for | | | | | HEMATOLOGY / | [place] | Health and | | | | | ONCOLOGY | [address] | Healing, | | | | | PRACTICE | Phone: | [address] | | | | | | [phone] | [place], [place] | | | | | | Fax: | [address] | | | | | | [phone] | Phone: | | | | | | | [phone] | | | | | | | Fax: | | | | | | | [phone] | + +---------+ + + + + Encounter Details +--------+---------+ + + + | Date | Type | Department | Care Team | Description | +--------+---------+ + + + | 03/18/ | Office | [facility] | Rodriguez Bower MD | Breast cancer | | 2019 | Visit | Clinics at S | [address] | metastasized to | | | | [facility] [address] | [place], [place] | multiple sites, | | | | [address] [facility] for | [address] | unspecified | | | | Health and Healing, | [phone] | laterality (HCC) | | | | [address] | | (Primary Dx) | | | | [place], [place] | | | | | | [address] | | | | | | [phone] | | | +--------+---------+ + + + [...] due to this pain. She lives in [place] with her , whom she cares for [...] adenocarcinoma -saw Dr. Antony of oncology at [facility], discussed getting EUS for further evaluati on [...] 300 mg by mouth three times daily. Ggrrlvszlbl-Fluqxgrth-Gnm C-Mn (GLUCOSAMINE CHONDROITIN MAXSTR) 500-400 mg Oral [...] the evening. triamcinolone 55 mcg Nasal Aerosol, Globe, Instill 2 Sprays into each nostril once daily. triamcinolone acetonide 0.1 % Topical Cream, Apply to affected area three times daily. Diane ly thin film to affected areas. Social History Socioeconomic History Marital status: Spouse name: Matthew Ramirez Number of children: 3 Years of education: Not on file Highest education level: Not on file Occupational History Occupation: [employer] Social Needs Financial resource strain: Not on [...] History Narrative Lives with partner in [facility]- 34yrs. Son in [place]. 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 Now traveling [facility]. Family History Problem Relation Cancer Mother [...] Diagnosis 1. Multiple specimens A to F (-[id number]; 01/13/19): A. Stomach, antrum at great curvature, [...] Resident Bonifacio Resendez MD Pathologist Pathology, [facility] My electronic signature indicates that [...] Ramona Taylor MD Hematology/Oncology Fellow PGY-5 Pager [phone] Associated attestation - Rodriguez Bower MD - [...] contact their office Rodriguez Bower MD, MS ID#[id number] Remedy Developerblind lacer Division of Hematology and Medical Oncology [facility] Pager#[phone] documented in this encounter Plan of Treatment +--------+ + + + + | Date | Type | Specialty | Care Team | Description | +--------+ + + + + | 05/08/ | Telephone-S | Hematology & | Rodriguez Bower MD | | | 2019 | cheduled | Oncology | [address] | | | | | | [place], [place] | | | | | | [address] | | | | | | [phone] | | | | | | | | +--------+ + + + + documented as of this encounter Visit Diagnoses + + | Diagnosis | + + | Breast cancer metastasized to multiple sites, unspecified laterality (HCC) - Primary | + + documented in this encounter"
--- OUTSIDE RECORDS SUMMARY | ~2020-02-10 | XMS | Encounter Summary ---
Demographics + + + | Address | [address] | | | [place] [address] | + + + | Home Phone [...] + + + | Author | [facility] | | | and [place] | + + + | Organization | [facility] | | [...] + + + + + | Matthew Ramierz | ECON | [address] | | | | | [place] | | | | | [address] | | + + + + + Care Team Providers + +------+ + | Care Clam Grader Name | Role | Phone | + +------+ + | Ashly Rojo PA-C | PCP | | + +------+ + Reason for Visit +--------+--------+ + | Reason | Onset | Comments | | | Date | | +--------+--------+ + | Other | 01/04/ | | | | 2018 | | +--------+--------+ + Encounter Details +--------+ + + + + | Date | Type | Department | Care Team | Description | +--------+ + + + + | 01/04/ | Telephone | [facility] | Tanya Huerta RN | Other | | 2019 | | [facility] | | | | | | ONCOLOGY CLINIC [address] | | | | | | [address] | | | | | | [place] [address] | | | | | | [phone] | | | +--------+ + + + [...] this encounter Miscellaneous Notes Telephone Encounter - Tanya Huerta RN - 01/04/2019 12:16 PM PDTLinda was screened for he reditary cancers and base on the information she provided there are no red flags to indicate further genetic testing at this time. documented in this encounter Plan of Treatment Not on filedocumented as of this encounter Visit Diagnoses Not on filedocumented in this encounter"
--- OUTSIDE RECORDS SUMMARY | ~2020-02-10 | XMS | Encounter Summary ---
Demographics + + + | Address | [address] | | | [place] [address] | + + + | Home Phone [...] Author | [facility] | | | and [place] [...] + | Matthew Ramirez | ECON | [address] | | | | | [place] | | | | | [address] | | + + + + + Care Team Providers + +------+ + | Care Orthopedic Rn Name | Role | Phone | [...] | 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 | [address] | | | | | adenocarcino | [address] | [place], | | | | | ma (HCC) | [address] | [place] [address] | | | | | Procedures | [place], [place] | Phone: | | | | | CT Chest | [address] | [phone] | | | | | Abdomen | Phone: | Fax: | | | | | Pelvis w | [phone] | [phone] | | | | | Contrast | Fax: | | | | | | CHG CT | [phone] | | | | | | SCAN,ABDOMEN | | | | | | | AND | | | | | | | PELVIS,W | | | | | | | CONTRAST [place] | | | | | | | [...] W | | | | | bhargav ([facility]) | [place] | Rashad | | | | | | [facility] | [place], | | | | | | [address] | [place] [address] | | | | | | Phone: | Phone: | | | | | | [phone] | [phone] | | | | | | Fax: | Fax: | | | | | | [phone] | [phone] | +--------+ + + + + + Reason for Visit + +--------+ + | Reason | Onset | Comments | | | Date | | + +--------+ + | Results, Pathology | 12/29/ | | | | 2018 | | + +--------+ + Encounter Details +--------+ + + + + | Date | Type | Department | Care Team | Description | +--------+ + + + + | 12/29/ | Telephone | [facility] | Matthew Shukla MD | Results, Pathology | | 2019 | | GASTROENTEROLOGY | [address] [facility] | | | | | [address] [facility] | [place], [place] | | | | | [address] [place], [place] | [address] | | | | | [address] | [phone] | | | | | [phone] | | | +--------+ + + + [...] this encounter Miscellaneous Notes Telephone Encounter - Mary Alcie León RN - 12/30/2018 8:37 AM PDTCT approved and patient transferred to Radiology to schedule. Lab orders faxed to [facility]. Electronicall y signed by Mary Alice León RN at 12/30/2018 8:39 AM PDTAddendum Note - Mary Alice León RN - 12/29/2018 4:16 PM PDT Addended by: MARY ALICE LEÓN on: 12/29/2018 16:16 Modules accepted: Orders elephone Encounter - Mary Alice León RN - 12/29/2018 4:12 PM PDTReferrals to general surgery and oncology pl aced, they will contact patient to schedule once approved; labs ordered and [facility] to [facility]; CT chest/abdomen/pelvis ordered and I will ca ll her to schedule once approved; patient will contact me by Friday if haven't heard yet on scheduling from gen surgery and cancer center since marked urgent per Dr. Shukla request.Elec tronically signed by Mary Alice León RN at 12/29/2018 4:15 PM PDTTelephone Encounter - Matthew Perkins MD - 12/29/2018 12:18 PM PDTI contacted pt today about gastric bx revealing lisa ligia adenocarcinoma. GI nurse will order routine labs and CT scan (C/A/P) and send DAVID referrals to Oncology an d Gen Surg. documented i n this encounter Plan of Treatment + + +--------+ + + | Name | Type | Priori | Associated Diagnoses | Order Schedule | | | | ty | | | + + +--------+ + + | AMB REFERRAL TO [facility] | Outpatient | Routin | Gastric | Expected: 12/29/2018 | | Medical Oncology | Referral | e | adenocarcinoma (HCC) | (Approximate), | | ([facility]) | | | | Expires: 12/30/2019 [...]
--- OUTSIDE RECORDS SUMMARY | ~2020-02-10 | XMS | Encounter Summary ---
Demographics + + + | Address | [address] | | | [place] [address] | + + + | Home Phone | | + + + | Preferred Language | Unknown | + + + | Marital Status | | + + + | Jew Affiliation | NRP | + + + | Race | White | + + + | Ethnic Group | Not or | + + + Author + + + | Author | [facility] | + + + | Organization | [facility] | + + + | Address | Unknown | + + + | Phone | Unavailable | + + + Support + + +---------+ + | Name | Relationship | Address | Phone | + + +---------+ + | Nella Haque | ECON | Unknown | | + + +---------+ + Care Team Providers + +------+ + | Care Fitter/Welder Name | Role | Phone | + [...] | | | Gastric | MD [address] | | | | | | mian | [address] | | | | | | bhargav ([facility]) | [place], | | | | | | Procedures | [place] | | | | | | [place] | [address] | | | | | | CONTRAST | Phone: | | | | | | | [phone] | | | | | | | Fax: | | | | | | | [phone] | | + +--------+ + + + [...] | | | Gastric | MD [address] | | | | | | mian | [address] | | | | | | bhargav ([facility]) | [place], | | | | | | Procedures | [place] | | | | | | [place] | [address] | | | | | | CONTRAST | Phone: | | | | | | | [phone] | | | | | | | Fax: | | | | | | | [phone] | | + +--------+ + + + + Encounter Details +--------+ + + + + | Date | Type | Department | Care Team | Description | +--------+ + + + + | 02/02/ | Hospital | Radiology/Imaging | Cristel Galicia MD | | | 2019 | Encounter | Lab at [facility] [address] | | | | | [address] [place] for | [place], [place] | | | | | Health and [facility], | [address] | | | | | [address] | [phone] | | | | | Floor [place], [place] | | | | | | [address] | | | | | | [phone] | | | +--------+ + + + [...] nostril | | | | | | [place] | once daily. | | | | [...] [address] | | | | | | [place], [place] | | | | | | [address] | | | | | | [phone] | | | | | | | [...] Allison MD Dictation initiated: Ravindra | | Beverley Allison MD 02/02/2019 5:11 PM | | [...]
--- OUTSIDE RECORDS SUMMARY | ~2020-02-10 | XMS | Encounter Summary ---
Demographics + + + | Address | [address] | | | [place] [address] | + + + | Home Phone [...] Team Providers + +------+ + | Care Dancer Or Choreographer Name | Role | Phone | + +------+ + | Long Copeland MD | PCP | | + +------+ + Reason for Visit + +--------+ + | Reason | Onset | Comments | | | Date | | + +--------+ + | Prescription | 08/23/ | TRAMADOL 50 mg | | | 2020 | | + +--------+ + Encounter Details +--------+--------+ + + + | Date | Type | Department | Care Team | Description | +--------+--------+ + + + | 08/23/ | Refill | [facility] | Rodriguez Bower MD | Prescription | | 2020 | | Clinics at S | [address] | (TRAMADOL 50 mg) | | | | [facility] [address] | [facility] [place] | | | | | [facility] | [address] | | | | | Health and Healing, | [phone] | | | | | [address] | | | | | | [place], [place] | | | | | | [address] | | | | | | [phone] | | | +--------+--------+ + + + [...] Telephone Encounter - Cassy Mclain RN - 08/24/2019 1:30 PM PDTI called [facility] and they do not have RX for tramadol 50 mg #90 from 08/16/19 so I will ask Dr. Bower to rese nd the RX as this will satisfy Nella's wish and provide a 30-day supply of the drug (which is max we can do for scheduled drugs). I confirmed Ashly is taking this as prescribed. I infor med Nella and she appreciates this. elephone Encounter - Lizet Carbone - 08/24/2019 12:32 PM PDTLisa Haque lv at 11: 07am on 08/23 Calling about the TRAMADOL 50 mg oral tablet rx. She asks for the rx refill to last longer than the current quantity of 45 for 2 weeks. Pt will again need refill by this coming Friday , and she is struggling brain picker the meds and taking them to pt often. Again nella would appre ciate the rx to last longer than 2 weeks, as last time pt almost went a full day w/out meds due the two weeks quicky snuck up on her. RNC documented in this encounter Plan of Treatment +--------+ + + + + | Date | Type | Specialty | Care Team | Description | +--------+ + + + + | 05/08/ | Telephone-S | Hematology & | Rodriguez Bower MD | | | 2019 | cheduled | Oncology | [address] | | | | | | [place], [place] | | | | | | [address] | | | | | | [phone] | | | | | | | | +--------+ + + + + documented as of this encounter Visit Diagnoses Not on filedocumented in this encounter"
--- OUTSIDE RECORDS SUMMARY | ~2020-02-10 | XMS | Encounter Summary ---
Demographics + + + | Address | [address] | | | [place] [address] | + + + | Home Phone [...] + | Author | [facility] | | | and [place] | + + + | Organization | [facility] | | | [...] + | Matthew Ramirez | ECON | [address] | | | | | [place] | | | | | [address] | | + + + + + Care Team Providers + +------+ + | Care Property Custodian Name | Role | Phone | [...] | HOSPITAL OR INTRA OP | D, SCHOOL BUS MONITOR [address] | | | | | [address] [place] | [place], [place] | | | | | [place], [place] | [address] | | | | | [address] | | | | | | [phone] | | | +--------+ + + + + Anesthesia Record + + + + + | Procedure Name | Responsible | Anesthesia Start | Anesthesia Stop Time | | | Anesthesiologist | Time | | + + + + + | Correction Josué | Luz Farias, | 03/06/17 1119 | 03/06/17 1228 | | Toes 2nd , 3rd, and | SCHOOL BUS MONITOR | | | | 4th Toes (Right [...] | 2 | | Patient returned to surgicenter by stretcher. | | | 7 | | | [...] | Jacklyn Dominguez | | IV | hetz-[id number] catheter system; | | VIRI Barillas | | | 20 gauge, 1 1/4 in length; 0; | | | | | distraction; 03/06/17; 1411 | | | +--------+ + + + | Read | 03/06/17; 1224; Right; foot; | 03/06/17 1224 by | 03/06/17 1411 by | | only - | 03/06/17; 141 | Haim Kapoor RN | Jacklyn Dominguez | | | | | Shine-VIRI Peacock | | [place] | | | | | on | [...] encounter [place] Notes Anesthesia Postprocedure Evaluation - Luz Farias CRNA - 03/06/2017 12:28 PM PDTFo rmatting of this note might be different from the original. ANESTHESIA POSTANESTHESIA EVALUATION Ashly Ramirez 76 y.o. female 1940 [id number] Procedure(s) Correction Hammer Toes 2nd , 3rd, and 4th Toes (Right ) Cooperates? Yes Mental Status Answers questions appropriately. and Performs simple tasks. Respiratory Satisfactory - Airway patent (self maintained). Cardiovascular Satisfactory - Blood pressure and heart rate acceptable Temperature Satisfactory Pain Satisfactory N/V Control Satisfactory Hydration Satisfactory - No signs of dehydration Complications None apparent Vitals: 03/06/17 1014 03/06/17 1229 BP: 152/63 148/71 Pulse: 93 72 Temp: 36.4 C (97.5 F) SpO2: 97% 94% Electronically signed by Luz Farias CRNA 03/06/2017 12:28 CC [facility] nesthesia Preprocedure Evaluation - Luz Farias CRNA - 03/06/2017 10: 57 AM PDT ANESTHESIA PREANESTHESIA EVALUATION Ashly Ramirez 76 y.o. female 1940 [id number] Procedure(s): Correction Hammer Toes 2nd , 3rd, and 4th Toes (Right ) Medical history, anesthesia, medications, allergy, NPO status verified histories reviewed. ECG reviewed. Labs reviewed. Review of Systems / Med History Anesthesia History No anesthesia complications. (-) PONV, difficult intubation Cardiovascular Negative except where noted below. , Exercise tolerance <4 METS Pulmonary Negative except where noted below. (+) shortness of breath Neurology Negative except where noted below. (+) back pain, weakness, fibromyalgia Psychology (+) anxiety Renal Negative except where noted below. Gastrointestinal/Hepatic (+) reflux/GERD Endocrine (+) hypothyroidism Cancer Negative except where noted below. Physical Exam Airway MP III, TM >3 FB, Mouth opening <2 FB. Neck: full ROM, extends >30 degrees. Jaw protru roge limited. Dental Grossly normal except where noted below.; (+) Age appropriate dentition. CV cardiovascular normal Rhythm regular. Rate Normal. (-) murmur and peripheral edema. Pulm Clear to auscultation bilaterally. (-) wheezing. Neuro Grossly normal. Other Secure crowns upper front teeth. Anesthesia Plan ASA 2 Type: MAC. Induction: Local anesthesia. Potential problems: None anticipated. Monitors: Standard ASA monitors. Consent statement:Anesthetic plan, alternatives, risks and benefits discussed with patient. . Consenting person understands and agrees to proceed. Anesthesia consent form used. Electronically Signed by: Luz Farias CRNA ESi date/time: 03/06/2017 10:57 documented in t his encounter Plan of [...]
--- OUTSIDE RECORDS SUMMARY | ~2020-02-10 | XMS | Encounter Summary ---
Demographics + + + | Address | [address] | | | [place] [address] | + + + | Home Phone [...] Author | [facility] | | | and [place] | + + + | Organization | [facility] | | | [...] + | Matthew Ramirez | ECON | [address] | | | | | [place] | | | | | [address] | | + + + + + Care Team Providers + +------+ + | Care Oracle Erp Developer Name | Role | Phone | [...] | | plastica | Luis Richards, | Clitnon Stringer | | | | | ([facility]) | [address] | [address] | | | | | [address] | [address] | | | | | | [address] | [place], [place] | | | | | | [place], | [address] | | | | | | [place] [address] | Phone: | | | | | | Phone: | [phone] | | | | | | [phone] | Fax: | | | | | | Fax: | [phone] | | | | | | [phone] | | +--------+ + + + + + Encounter Details +--------+ + + + + | Date | Type | Department | Care Team | Description | +--------+ + + + + | 01/25/ | Orders Only | [facility] | Arpan, | Linitis plastica | | 2019 | | [facility] | Luis Richards MD [address] | (HCC) (Primary Dx) | | | | [facility] [address] | [address] [facility] | | | | | [address] [place] | [address] [place] | | | | | [place] [address] | [address] | | | | | [phone] | | | +--------+ + + + [...]
--- OUTSIDE RECORDS SUMMARY | ~2020-02-10 | XMS | Encounter Summary ---
Demographics + + + | Address | [address] | | | [place] [address] | + + + | Home Phone [...] Providers + +------+ + | Care Mold Loft Worker Name | Role | Phone | [...] Description | +--------+--------+ + + + | 01/02/ | Refill | [facility] | Rodriguez Bower MD | Refill Request | | 2020 | | Clinics at S | [address] | | | | | [facility] [address] | [place], [place] | | | | | [address] [place] for | [address] | | | | | Health and Healing, | [phone] | | | | | [facility] | | | | | | [place], [place] | | | | | | [address] | | | | | | [phone] | | | +--------+--------+ + + + [...] Notes Telephone Encounter - Yao MckeonGUSTABO - 01/03/2020 3:52 PM PDT Last appointment with Rodriguez Bower [...] copied below: Date and Time Department Ordering/Authorizing 12/07/2019 9:54 AM [facility] Rodriguez Bower MD Outpatient Medication Detail Disp Refills TRAMADOL 50 mg oral tablet 90 tablet 0 Sig: TAKE ONE TABLET BY MOUTH EVERY 8 HOURS NEEDED FOR MODERATE PAIN Sent to pharmacy as: traMADoL 50 mg tablet (ULTRAM) Class: eRx Order: [id number] E-Prescribing Status: Receipt confirmed by pharmacy (12/07/2019 9:54 AM PDT) Start Date Dec 07, 2019 Per [facility] policy, routing encounter to LIP for [...] [address] | | | | | | [place], [place] | | | | | | [address] | | | | | | [phone] | | | | | | | | +--------+ + + + + documented as of this encounter Visit Diagnoses Not on filedocumented in this encounter"
--- OUTSIDE RECORDS SUMMARY | ~2020-02-10 | XMS | Encounter Summary ---
Demographics + + + | Address | [address] | | | [place] [address] | + + + | Home Phone [...] Team Providers + +------+ + | Care Team Psychologist Name | Role | Phone | + +------+ + | Long Copeland MD | PCP | | + +------+ + Reason for Visit + +--------+ + | Reason | Onset | Comments | | | Date | | + +--------+ + | Tumor Board | 03/04/ | | | Recommendation | 2019 | | + +--------+ + [...] | Recommendation | | | | [address] [facility] for | [place], [place] | | | | | [facility], | [address] | | | | | Building [address] | [phone] | | | | | [place], [place] | | | | | | [address] | | | | | | [phone] | | | +--------+ + + + [...] this encounter Miscellaneous Notes Telephone Encounter - Cristel Galicia MD - 03/04/2019 4:23 PM PDTMultidisciplinary GI Tumor Board Conference Report Ashly Ramirez's case was presented an discussed with at the [facility] [place] Multidisciplinary GI Tumor Board conference on 03/04/19. Representatives from multiple disc iplines including medical oncology, colorectal surgery, surgical oncology, radiation oncolog y, body radiology, interventional radiology, supportive oncology, and surgical pathology wer e present for the discussion. Relevant history, exam findings, procedures, radiographs and pathology were reviewed. Significant discussion points included recurrence risk and whether further surgical treatme nt is needed. NCCN guidelines were reviewed as relevant to the diagnosis of this cancer. Her clinical, radiographic, and pathology picture were felt to be inconsistent with a diagn osis of diffuse gastric cancer. In-depth review of her tumor staining in conference revealed that her cancer has markers staining consistent with metastatic breast cancer. The tumor dony yuri recommended referral to Breast Medical Oncology and for the patient to have a clinical b reast exam and then further radiographic evaluation as appropriate. Specifically, Drs. Silverio lopez (surgical oncology) and Jaleesa (surgical pathology) provided expertise in this this ch allenging case. The patient reports she has a mammogram every year and has one scheduled in a few months. N o personal history of breast cancer. She has an extensive family history of breast cancer (b oth sisters who had breast cancer twice and most recently her daughter who had a mastectomy for breast cancer last week). RECOMMENDATIONS 1. Referral to Breast Medical Oncology here at [facility] 2. Addendum to surgical pathology report to indicate the staining supportive of a diagnosis of breast cancer. 3. No need to return to Surgical Oncology clinic for follow-up given that she now has a aparna gnosis of metastatic breast cancer. The degree of consensus was HIGH. I spent 25 minutes reviewing imaging, presenting his case at tumor board, and called the pa tient to relay the recommendations. Greater than 50% of the time was spent counseling the pa tient regarding the pathology, the potential treatment options, and the next steps in the di agnosis and management of his disease. The patient and family have indicated that all questions and concerns have been addressed t o their satisfaction. Cristel Galicia MD, MPH gasoline catalyst operator Division of Surgical Oncology [facility] [place], [place] documented in this encou nter Plan of Treatment +--------+ + + + + | Date | Type | Specialty | Care Team | Description | +--------+ + + + + | 05/08/ | Telephone-S | Hematology & | Rodriguez Bower MD | | | 2020 | cheduled | Oncology | [address] | | | | | | [place], [place] | | | | | | [address] | | | | | | [phone] | | | | | | | | +--------+ + + + + documented as of this encounter Visit Diagnoses Not on filedocumented in this encounter"
--- OUTSIDE RECORDS SUMMARY | ~2020-02-10 | XMS | Encounter Summary ---
Demographics + + + | Address | [address] | | | [place] [address] | + + + | Home Phone [...] | Author | [facility] | | | and [place] | + + + | Organization | [facility] | | [...] + | Matthew Ramirez | ECON | [address] | | | | | [place] | | | | | [address] | | + + + + + Care Team Providers + +------+ + | Care Air Pumper Name | Role | Phone | + [...] | | | | | | | [place] REPA[facility] | | | | | | [...] Event | HOSPITAL OR INTRA OP | TECHNICAL DOCUMENTATION SPECIALIST [address] | | | | | [address] | [place] [address] | | | | | [place], [place] | [phone] | | | | | [address] | | | | | | [phone] | | | +--------+ + + + + Anesthesia Record + + + + + | Procedure Name | Responsible | Anesthesia Start | Anesthesia Stop Time | | | Anesthesiologist | Time | | + + + + + | CORRECTION | Mayank Honeycutt, | 07/04/17 0912 | 07/04/17 1022 | | MARSHA 2, 3, 4 | TECHNICAL DOCUMENTATION SPECIALIST | | | | (Left Foot) | [...] 0855; Left; | 07/04/17 0855 by | 07/04/17 1133 by | | eral | Antecubital; 20 gauge; 0; | [place] [...] Postprocedure Evaluation - Mayank Honeycutt CRNA - 07/04/2017 10:34 AM PSTForma tting of this note might be different from the original. ANESTHESIA POSTANESTHESIA EVALUATION Ashly Ramirez 76 y.o. female 1940 [id number] Procedure(s) CORRECTION HAMMERTOES 2, 3, 4 (Left Foot) Cooperates? Yes Mental Status Performs simple tasks. Respiratory Satisfactory - Airway patent (self maintained). Cardiovascular Satisfactory - Blood pressure and heart rate acceptable Temperature Satisfactory Pain Satisfactory N/V Control Satisfactory Hydration Satisfactory - No signs of dehydration Complications None apparent Vitals: 07/04/17 0837 07/04/17 1027 BP: 149/83 131/79 Pulse: 78 70 Temp: 36.2 C (97.2 F) SpO2: 100% 93% Electronically signed by Mayank Honeycutt CRNA 07/04/2017 10:34 [facility] 10 :34 AM PSTAnesthesia Preprocedure Evaluation - Mayank Honeycutt CRNA - 07/04/2017 8:56 AM PST ANESTHESIA PREANESTHESIA EVALUATION Ashly Ramirez 76 y.o. female 1940 [id number] Procedure(s): CORRECTION HAMMERTOES 2, 3, 4 (Left ) Medical history, anesthesia, medications, allergy, NPO status verified histories reviewed. Review of Systems / Med History Anesthesia History No anesthesia complications. Cardiovascular Negative except where noted below. Pulmonary (+) shortness of breath, COPD Neurology (+) fibromyalgia Psychology (+) anxiety Renal Negative except where noted below. Endocrine (+) hypothyroidism Other (+) arthritis Physical Exam Airway MP II, TM >3 FB, Mouth opening >2 FB. Neck: full ROM, extends >30 degrees. Dental ; (+) implants(s)/bridges(s)/caps(s). CV Rhythm regular. Rate normal. Pulm Clear to auscultation bilaterally. Anesthesia Plan ASA 2 Type: MAC. Induction: Intravenous. Potential problems: None anticipated. Monitors: Standard ASA monitors. Consent statement:Anesthetic plan, alternatives, risks and benefits discussed with patient. Risks discussed included (but were not limited to): pain, heart problems, dental injury, na usea, . Consenting person understands and agrees to proceed. Anesthesia consent form used. Electronically Signed by: Mayank Honeycutt CRNA ESi date/time: 07/04/2017 8:56 documented in this encounter Plan of Treatment [...] 9:47 | | | | | Starting Fri07/04/17 at 0947, | | AM PST | [...] | | | | | Vomiting, Starting 07/04/17 at | | AM PST | | [...]
--- OUTSIDE RECORDS SUMMARY | ~2020-02-10 | XMS | Encounter Summary ---
Demographics + + + | Address | [address] | | | [place] [address] | + + + | Home Phone [...] Author | [facility] | | | and [place] | + + + | Organization | [facility] | | | [...] + | Matthew Ramirez | ECON | [address] | | | | | [place] | | | | | [address] | | + + + + + Care Team Providers + +------+ + | Care Drum Maker Name | Role | Phone | + +------+ + PCP | Unavailable | + +------+ + Encounter Details +--------+ + + + + | Date | Type | Department | Care Team | Description | +--------+ + + + + | 07/24/ | Hospital | [facility] | | | | 1999 | Encounter | MED CTR XRAY [address] | | | | | | [place] | | | | | | [place] [address] | | | | | | [phone] | | | +--------+ + + + [...]
--- OUTSIDE RECORDS SUMMARY | ~2020-02-10 | XMS | Encounter Summary ---
Demographics + + + | Address | [address] | | | [place] [address] | + + + | Home Phone [...] Team Providers + +------+ + | Care Aerodynamics Teacher Name | Role | Phone | + +------+ + | Long Copeland MD | PCP | | + +------+ + Reason for Visit + +--------+ + | Reason | Onset | Comments | | | Date | | + +--------+ + | Medication | 08/02/ | Acetaminophen adjustment | | Adjustment | 2019 | | + +--------+ + Encounter Details +--------+ + + + + | Date | Type | Department | Care Team | Description | +--------+ + + + + | 08/02/ | Telephone | [facility] | Rodriguez Bower MD | Medication | | 2020 | | Clinics at S | [address] | Adjustment | | | | [facility] [address] | [place], [place] | (Acetaminophen | | | | [facility] | [address] | adjustment ) | | | | [facility], | [phone] | | | | | [address] | | | | | | [place], [place] | | | | | | [address] | | | | | | [phone] | | | +--------+ + + + [...] Telephone Encounter - Cassy Mclain RN - 08/03/2019 2:40 PM PDTI called Nella back and i nformed her that Dr. Bower send RX for acet 500 to [facility] pharmacy in [place] on 07/28 and she will pick it up. elephone Encounter - Kel Lopez - 08/03/2019 12:46 PM PDTPt's daughter called and lvm @ 11 :45am. Pt's daughter (Nella) stated that Dr. Bower prescribed acetaminophen 1000 mg. Pt's d dechter could only find 325 mg in town of [place]. Nella would like Dr Bower to prescribed acetaminophen 1000 mg if possible. Nella would like a call back at her number and not the P t's primary number Nella Haque - [phone] Routing to [facility] documented in this encounter Plan of Treatment +--------+ + + + + | Date | Type | Specialty | Care Team | Description | +--------+ + + + + | 05/08/ | Telephone-S | Hematology & | Rodriguez Bower MD | | 2019 | cheduled | Oncology | [address] | | | | | | [place], [place] | | | | | | [address] | | | | | | [phone] | | | | | | | | +--------+ + + + + documented as of this encounter Visit Diagnoses Not on filedocumented in this encounter"
--- OUTSIDE RECORDS SUMMARY | ~2020-02-10 | XMS | Encounter Summary ---
Demographics + + + | Address | [address] | | | [place] [address] | + + + | Home Phone [...] Team Providers + +------+ + | Care Electronics Mechanic Apprentice Name | Role | Phone | + +------+ + | Long Copeland MD | PCP | | + +------+ + Reason for Visit + +--------+ + | Reason | Onset | Comments | | | Date | | + +--------+ + | Oral Chemo | 03/18/ | tamoxifen | | | 2019 | | + +--------+ + Encounter Details +--------+ + + + + | Date | Type | Department | Care Team | Description | +--------+ + + + + | 03/18/ | Telephone | [facility] | Gregg Ordoñez PharmD | Oral Chemo | | 2019 | | Clinics at | [address] | (tamoxifen) | | | | [facility] [address] [place], | | | | | [facility] | [place] [address] | | | | | [facility], | | | | | | [address] | | | | | | [place], [place] | | | | | | [address] | | | | | | [phone] | | | +--------+ + + + [...] Notes Telephone Encounter - Aury Rose - 03/19/2019 2:55 PM PSTPatient calling in asking i f her pharmacy already has the Tamoxifen prescription for her, stated she's just a little un sure and might want to have medication sent to her home unless the pharmacy already has dariel JEAN BAPTISTE confirmed with pharmacy that prescription received and is ready for pickup. Patient jason kaminski surprised prescription already ready for pickup and thanks and his team. Routing to [facility]/ Rx / Documenting as FYI elephone Encounter - Gregg Ordoñez, RobbiD - 03/18/2019 3:19 PM PSTPharmacy D ocumentation Oral Chemotherapy - Education:: 15 Minutes Spent The patient and daughter presented to clinic for education regarding tamoxifen chemotherapy . The following information was discussed with the patient: Prescription: The prescription will be filled at [facility] in [place]. The patient will burr picker t he prescription when available. The copay is unknown. Dose and Administration: 20 mg tablets: take 1 tablet by mouth once daily Adverse Effects: Patient was provided an education handout on the medications prescribed. The most frequent side effects were reviewed, including hot flashes, upset stomach, dizziness, muscle or joint pain, hair thinning, vaginal discharge, blood clots, and increased cholesterol. Drug Interactions: Duloxetine: may decrease metabolism of tamoxifen to enodoxifen, but is not a strong CYP2D6 inhibitor Monitoring/Supportive Care: The following labs are recommended for monitoring: cholesterol panel, CMP,CBC Follow-Up Information: Patient to see Dr. Bower in 3 months. The patient and daughter expressed understanding, all questions were answered, and understa nds to call the clinic for any questions. documented in this enco unter Plan of Treatment +--------+ + + + + | Date | Type | Specialty | Care Team | Description | +--------+ + + + + | 05/08/ | Telephone-S | Hematology & | Rodriguez Bower MD | | | 2020 | cheduled | Oncology | [address] | | | | | | [place], [place] | | | | | | [address] | | | | | | [phone] | | | | | | | | +--------+ + + + + documented as of this encounter Visit Diagnoses Not on filedocumented in this encounter"
--- OUTSIDE RECORDS SUMMARY | ~2020-02-10 | XMS | Encounter Summary ---
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 Name | Role | Phone | + [...] Specialty | Oncology / | Diagnoses | Gayla, | [facility] | | | Services | Pediatric | 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 | Oncology | | | Required | Oncology | adenocarcino | [address] | Clinic [address] | | | | | bhargav ([facility]) | [address] | [address] | | | | | | [place], [place] | [place], | | | | | | [address] | [place] [address] | | | | | | Phone: | Phone: | | | | | | [phone] | [phone] | | | | | | Fax: | Fax: | | | | | | [phone] | [phone] | +--------+ + + + + + [...] W | | | | | bhargav ([facility]) | [address] | [address] | | | | | | [place], [place] | [place], | | | | | | [address] | [place] [address] | | | | | | Phone: | Phone: | | | | | | [phone] | [phone] | | | | | | Fax: | Fax: | | | | | | [phone] | [phone] | +--------+ + + + + + Encounter Details +--------+ + + + + | Date | Type | Department | Care Team | Description | +--------+ + + + + | 01/05/ | Hospital | [facility] | Arpan, | Gastric | | 2019 | Encounter | [facility] | Luis Richards MD [address] | adenocarcinoma | | | | ONCOLOGY CLINIC [address] | [facility] | (HCC); Malignant | | | | [address] | [address] | neoplasm of | | | | [place] [address] | [id number] | overlapping sites of | | | | [phone] | | stomach (HCC) | +--------+ + [...] + + documented as of this encounter Consult Notes Luis Antony MD - 01/05/2019 1:40 PM PDTFormatting of this note might be differe nt from the original. Hematology/Oncology Conslut Note [facility] BUZZ Bartholomew Pt. Name/Age/: Ashly Gomez 78 y.o. 1940 Med. Record Number: [id number] Date of admission: 01/05/2019 The patient's primary care provider is Ashly Rojo PA-C. Identifying Statement: Ashly Gomez is a 78 y.o. female from [id number] [place] [address] [place] [address] with Gastric Cancer. The patient chart and medications were reviewed in detail and the patient was seen and exam ined. History of Present Illnesses, their Current Assessments and Plans: Problem List Malignant neoplasm of overlapping sites of stomach Overview ACTIVE DIAGNOSIS: Gastric adenocarcinoma. 1. Sigmoid colectomy for diverticular disease in 2003. 2. Screening colonoscopy in 2009 ([facility]) notable for polyps. 3. Chronic abdominal pain, evaluated by Dr. Julien Francisco in 2015. Colonoscopy on October 29 ([facility]) was notable for 3 tubular adenomas and one hyperplastic polyp. 4. Repeat colonoscopy January 26, 2018 ([facility]) notable for a tubular adenoma. 5. Admit [facility], October 18, 2017 for partial small bowel obstruction. CT scan of abdomen/pelvis with contrast demonstrated small bowel obstruction. Symptoms resolved with conservative man agement. 6. Presentation on August 04, 2018 with abdominal pain, nausea and one episode of vomiting. CT abdomen/pelvis with contrast August 05, 2018 at [facility] in [facility] demonstrated no acute inflammatory changes in the abdomen or pelvis. 7. EGD/ Colonoscopy with random biopsies by Dr. Shukla, [facility] on December 17, 2018; Specimen # [id number] ([id number]). "A-Mucosa, stomach, biopsy-infiltrating gastric tati nocarcinoma." Specimens B-duodenum, C-antrum, D-gastroesophageal junction, E-ascending colo n, F-transverse colon, G-descending colon, and H, sigmoid colon were all negative for invasi ve malignancy. 8. CT chest/abdomen/pelvis on December 31, 2018; No concerning gastric mass, no findings to s uggest metastatic disease. Current Assessment & Plan Ashly Gomez is referred by Matthew Shukla Md [address] [place] [id number] for evaluation and management of gastric adenocarcinoma. I met with Ashly and her daughter Nella, on 01/05/2019 at the [facility]. The patient's history includes chronic abdominal pain. Surgical history includes TEODORA/BSO for cervical cancer. Family history is notable for a daughter with breast cancer age 61, and a sister with bilat eral breast cancer. Review of systems is notable for weight loss. Clinical exam is negative for sarcopenia. Laboratory exam is negative for anemia. Imaging is negative for metastatic disease. Assessment: gastric adenocarcinoma. Consider linitis plastica. Consider Brca-related biolog y. Plan; Case was discussed extensively with Dr. Shukla, who affirms that there was no evidence for gastric mass or ulcer and that the biopsy of the stomach was random. Dr. Shukla also rep orted that he discussed the pathological findings with Dr. Guevara Ernandez at [facility], who aff irmed that the biopsy could be consistent with Linitis Plastica. Dr. Shukla agreed that the l ack of endoscopic or radiographic findings is atypical and agreed that endoscopic ultrasound is indicated for further evaluation. Dr. Shukla' office will co-ordinate endoscopic ultrasou nd with [facility] in [place]. I will follow up with Ashly Gomez afte r her next procedure to review the results and to establish a plan of management. Review of Systems: Constitutional: Reports low energy levels, related to pain. Reports night sweats, also hot flashes during the day. Denies high fevers, shaking chills, anorexia, nausea, vomiting, weig ht loss, or night sweats. Reports eating less than usual, poor appetite for the past couple days. Ear, Nose, Mouth, Throat: Denies odynophagia, dysphagia, or tinnitus. Cardiovascular: Reports SOB and chest pain, attributes to pulmonary hx. Denies palpitations or orthopnea. Respiratory: Reports ongoing dry cough, allergy-related. Hoarse voice today, too. Denies he moptysis, or sputum production. Gastrointestinal: Reports abdominal discomfort. Reports hx of irritable bowel syndrome, mul tiple month hx of stomach upset prior to dx. Denies constipation, diarrhea, melena, or brigh t red blood per rectum. Genitourinary: Reports urinary incontinence. Denies hematuria or dysuria. Musculoskeletal: Reports increase in pain, related to arthritis and fibromyalgia. Neurologic: Reports numbness/tingling "everywhere." Denies headache, visual changes. Endocrine: Reports LE edema, R side worse than L. Denies heat/cold intolerance. Hematologic: Reports bruising easily, bruise noted to L forearm. Denies spontaneous bleedin g. Integumentary: Denies rash, wounds or other skin concerns. Pain: Reports increase in pain, related to arthritis and fibromyalgia. Note: here for consultation w/ Dr Antony Here w/ daughter Nella today My chart: Pending Feminine Hx P: 3 A: 1 M: 0 Menarche: 12yo 1st : 16yo Breast feeding: none control: oral, unknown type HRT: yes, unknown type. ~11 years, from age 47yo to 58yo PAP: none MMG: yes, 02/2018 Review of systems as above otherwise negative Scheduled Medications: Current Outpatient Medications Medication Sig Dispense Refill acetaminophen (TYLENOL 8 [...] MCG tablet Take 800 mcg by mouth. Tvcktajlsyg-Whlwqboqy-Hod C-Mn (GLUCOSAMINE CHONDR 500 COMPLEX) CAPS 2 [...] Take 1,000 mcg by mouth Daily. No current facility-administered medications for this encounter. Allergies: Allergy: Allergies Allergen Reactions Sulfa Antibiotics Anaphylaxis Codeine Sulfate Past Medical and Surgical History, Social History and Problems: Past Medical History: Diagnosis Date Abdominal pain [...] localized osteoarthritis of left knee Sepsis (HCC) 2015 Hx of urosepsis and sepsis Sinus infection Thyroid activity decreased Vertigo Vision loss of left eye secondary to amblyopia as a child Past Surgical History: Procedure Laterality Date APPENDECTOMY 1950 ARTHROPLASTY Left 02/13/2018 Procedure: ARTHROPLASTY 3rd and 4th Digits with Impalnt Revision; Surgeon: Jose Randall DPM; Location: [facility] SURGERY BLADDER REPAIR 1971 BLADDER SUSPENSION 2007 CARPAL TUNNEL RELEASE Bilateral CATARACT REMOVAL Right 03/2016 CHOLECYSTECTOMY, LAPAROSCOPIC 1997 COLECTOMY 2004 recurrent diverticulitis COLONOSCOPY 01/2018 One diminutive polyp COLONOSCOPY N/A 12/17/2018 Procedure: COLONOSCOPY; Surgeon: Matthew Shukla MD; Location: [facility] MEDICAL PROCEDURE UNIT FINGER SURGERY Left 2007 Thumb surgery for osteoarthritis FINGER SURGERY Left 11/2008 FINGER SURGERY Right 04/2012 Thumb surgery HAMMER TOE SURGERY Right 03/06/2017 Procedure: Correction Hammer Toes 2nd , 3rd, and 4th Toes; Surgeon: ANNIE Cuevas; Location: [facility] DIONICIO RONDE SURGERY HAMMER TOE SURGERY Left 07/04/2017 Procedure: CORRECTION HAMMERTOES 2, 3, 4; Surgeon: Jose Randall DPM; Location: [facility] DIONICIO RONDE SURGERY HAMMER TOE SURGERY Left 2017 x3 KNEE ARTHROSCOPY Right 2001 PUBOVAGINAL SLING 10/16/2010 TVT Retropubic sling at [facility] SIGMOID COLECTOMY 12/20/2002 Franck Davis MD [facility] 1996 TONSILLECTOMY AND ADENOIDECTOMY 1948 TOTAL KNEE ARTHROPLASTY Right 07/11/2011 TUBAL LIGATION 1976 UPPER GASTROINTESTINAL ENDOSCOPY N/A 12/17/2018 Procedure: EGD; Surgeon: Matthew Shukla MD; Location: [facility] MEDICAL PROCEDURE UNIT URETHROPEXY 07/11/2010 Revision sling urethropexy Social History Socioeconomic History Marital status: Spouse name: Not on file Number of children: Not on file Years of education: Not on file Highest education level: Not on file Social Needs Financial resource strain: Not on file Food insecurity - worry: Not on file Food insecurity - inability: Not on file Transportation needs - medical: Not on file Transportation needs - non-medical: Not on file Occupational History Not on file Tobacco Use Smoking status: Former Smoker Smokeless tobacco: Never Used Substance and Sexual Activity Alcohol use: Yes Comment: occasionally Drug use: Never Sexual activity: Not on file Comment: Not on file Other Topics Concern Not on file Social History Narrative Not on file Patient Active Problem List Diagnosis COUGH SHORTNESS OF BREATH DYSPNEA ON EXERTION Diverticular disease Abdominal pain History of colonic polyps Rectal bleeding Diarrhea, unspecified type Chronic abdominal pain Benzodiazepine dependence Narcotic dependence, episodic use LUQ pain Alternating constipation and diarrhea Hematochezia Weight loss, unintentional Acute reaction to stress H/O neoplasm of uncertain behavior of skin Primary localized osteoarthritis of left knee Complete intestinal obstruction, unspecified as to cause Mitral regurgitation Left lower quadrant pain IBS (irritable bowel syndrome) Hypothyroidism Fibromyalgia Dysfunction of left eustachian tube Vertigo Malignant neoplasm of overlapping sites of stomach Family History Problem Relation Age of Onset Heart failure Mother Other (see comment) Mother multiple myeloma Other (see comment) Father Multiple myeloma Breast cancer Sister Both breast Cancer Sister Cervical Cancer Brother throat cancer Cancer Daughter 61 breast cancer Objectives: Temp: 36.5 C (97.7 F) BP: 155/83 Pulse: 88 Resp: 16 SpO2: 95 % on Min/Max Temp past 24 hours:No data recorded No intake or output data in the 24 hours ending 01/07/19 1800 Wt. Admission: Weight: 86.2 kg (190 lb 0.6 oz) Wt. Current: Weight: 86.2 kg (190 lb 0.6 oz) Wt Readings from Last 3 Encounters: 01/07/19 86 kg (189 lb 9.5 oz) 01/05/19 86.2 kg (190 lb 0.6 oz) 12/17/18 88.5 kg (195 lb 1.7 oz) Physical Exam: General: The patient is alert and oriented. No acute distress. Eyes: Conjunctiva clear. Sclera anicteric. ENMT: Oropharynx fee of lesions, mucous membranes moist. Cardiovascular: Regular rate and rhythm, no rubs, gallops, or murmurs. Lungs: Clear to auscultation and percussion. Abdomen: Soft, nontender, no hepatospenomegaly. No palpable masses. Bowel sounds present. Extremities: Nontender, no erythema, no edema. Skin: No rashes, bruising, or petechiae. Lymph: No palpable nodes in the neck, supraclavicular fossa, axilla or groin. Neurological: Face symmetric, voice articulate. Station and gait are without deficit. Muscular/Skeletal: No acute bony tenderness. No evidence of sarcopenia. Psychiatric: Normal mood and affect. ECOG Performance Status [x] 0 [] 1 [] 2 []3 [] 4 ECOG PERFORMANCE STATUS* Grade ECOG Karnofsky 0 Fully active, able to carry on all pre-disease performance without restriction. 90 - 100 1 Restricted in physically strenuous activity but ambulatory and able to carry out work of a light or sedentary nature, e.g., light house work, office work 70 - 80 2 Ambulatory and capable of all selfcare but unable to carry out any work activ ities. Up and about more than 50% of waking hours 50 - 60 3 Capable of only limited selfcare, confined to bed or chair more than 50% of w aking hours 30 - 40 4 Completely disabled. Cannot carry on any selfcare. Totally confined to bed or chair 10 - 20 * As published in Am. J. Clin. Oncol.: Vianney Anna., Tashi Chaney., Orquidea Mckinney., Torri Duran, Claudio TMaurilio., Dona Parnell., Javid, P PeggyP.: Toxicity And Response Criteria Of The Eastern Cooperative Oncology Group. Am J Clin Onc ol 5:649-655, 1982. The ECOG Performance Status is in the public domain therefore available for public use. To duplicate the scale, please cite the reference above and credit the Eastern Cooperative Onco logy Group, Luis Bowden M.D., Group Chair Diagnostic studies: Available data and images were reviewed personally. See reports. Significant results and findings are addressed here or in the Assessment and Plan. Specimen ID: [id number] Collected: 12/17/2018 0000 Result Notes for Surgical Pathology Exam Notes recorded by Matthew Shukla MD on 12/29/2018 at 12:16 PDT The pt was contacted by me today and the results given, including gastric CA. We will send Oncology and Gen Surg referrals DAVID and order routine labs and CT chest/abd/p vaibhav with contrast. Repeat cscope is advised in 5 years. The pt understands the pathology results and will await calls from Oncology and Gen Surg. F/u GI prn. Surgical Pathology Exam Order: [id number] Status: Final result Visible to patient: No (Not Released) Next appt: None Narrative Performed by: BUZZ GILL SPECIMEN(S): A GASTRIC BIOPSY SPECIMEN(S): B DUODENAL BIOPSY SPECIMEN(S): C GASTRIC ANTRUM SPECIMEN(S): D GE JUNCTION SPECIMEN(S): E ASCENDING COLON SPECIMEN(S): F TRANSVERSE COLON SPECIMEN(S): G DESCENDING COLON SPECIMEN(S): H SIGMOID POLYP SPECIMEN SOURCE: A. GASTRIC BIOPSY B. DUODENAL BIOPSY C. GASTRIC ANTRUM D. GE JUNCTION E. ASCENDING COLON F. TRANSVERSE COLON G. DESCENDING COLON H. SIGMOID POLYP CLINICAL HISTORY: K62.5 (rectal bleeding), R19.7 (diarrhea, unspecified), R10.9, G89.29 (chronic abdominal pa in), F13.20 (benzodiazepine dependence), F11.20 (narcotic dependence, episodic use), R10.12 (LUQ pain), R19.8 (alternating constipation and diarrhea), K92.1 (hematochezia), R63.4 (weight loss, unintent ional). MICROSCOPIC DESCRIPTION: A. Sections reveal biopsies of gastric mucosa. The epithelial surface is intact has ret ained mucous-secreting ability. The lamina propria is mildly expanded by a population of p lasma cells, lymphocytes, and infrequent eosinophils. No acute inflammatory cells, goblet cells, Panet h cells, or bacteria morphologically consistent with Helicobacter are seen on HE-stained sec tions. One of the biopsies contains an atypical infiltrate on somewhat cohesive-appearing cells in terspersed between benign glandular epithelium. Individual cells have enlarged, minimally hyperchromatic nuclei with one large red macronucleolus and moderate amounts of fluffy-appearing, somewhat vacuolated cytoplasm. Immunostains are obtained for CK AE1/A3, CD 138, CD 68, and Melan-A , along with appropriately positive controls. The cells of interest are positive for CK AE1/AE3 and n egative for CD138, CD68, and Melan A, though there is a background of CD138 and CD68 positiv e cells mixed in. Histologic features and immunostain results are consistent with infiltrating signet ring ga stric carcinoma. C. Sections reveal a biopsy of gastric mucosa. The epithelial surface is intact and has retained mucous-secreting ability. The lamina propria is mildly expanded by a population of plasma cells, lymphocytes, and occasional eosinophils. No acute inflammatory cells, goblet cells, Panet h cells, or bacteria morphologically consistent with Helicobacter are seen on HE-stained sec tions. Given the presence of signet ring carcinoma in specimen A, immunostain for CK AE1/AE3 is ob tained, along with an appropriately positive control, looking for occult single malignant ce lls in the interstices between glands. No such cells are found, and thus there is no evidence of mal ignancy or atypia. D. Sections of gastroesophageal junction reveal multiple pieces of glandular mucosa con sistent with proximal gastric origin. The epithelial surface is intact and has retained mu cous secreting ability. The lamina propria is mildly expanded by a population of plasma cells, lymphocyt es, and occasional eosinophils. No acute inflammatory cells or goblet cells are seen. No squamous mucosa is present. Immunostain for CK AE1/AE3 is obtained along with an appropriately positive cont rol, and is negative for occult malignant cells in the interstices between glands. E. Sections reveal biopsies of colonic mucosa. The epithelial surface is intact and h as retained mucous-secreting ability. The basement membrane is not thickened. Glands are simple and tubular and reach all the way to the muscularis mucosae. The lamina propria is minimally expanded by a population of plasma cells, lymphocytes, and infrequent eosinophils. A small amount of edema and intramucosal hemorrhage is present. No acute inflammatory cells, excess intraepithelial l ymphocytes, crypt abscesses, areas of fibrosis, or granulomas are seen. There is no eviden ce of malignancy or atypia. SHIRLEYA:smn FINAL PATHOLOGIC DIAGNOSIS: A. Mucosa, stomach, biopsy: [...] adenoma. COMMENT: A -- As part of [facility]' Quality Improvement Program, this portion of the case h as been reviewed by another member of our pathology staff with subspecialty training in lisa rointestinal pathology. Results called to Dr. Shukla office ([place]) 12/24/18 10:15 AM. Discussed results on specimen A with Dr. Shukla 2:15 PM. OPAL:smn:C2NR GROSS DESCRIPTION: Eight specimens are received in eight containers, labeled "Ashly Unger." A. The specimen, labeled "LS, gastric," is received in formalin and consists of three caraballo s oft tissue fragment(s) that measure 0.3-0.8 cm in greatest dimension. The specimen is entire ly submitted in cassette (A1). B. The specimen, labeled "LS, duodenal biopsy," is received in formalin and consists of s ix caraballo soft tissue fragment(s) that measure 0.1-0.4 cm in greatest dimension. The specimen i s entirely submitted in cassette (B1). C. The specimen, labeled "LS, antrum," is received in formalin and consists of seven caraballo soft tissue fragment(s) that measure 0.1-0.4 cm in greatest dimension. The specimen is entir derek submitted in cassette (C1). D. The specimen, labeled "LS, GE junction," is received in formalin and consists of three caraballo soft tissue fragment(s) that measure 0.4-0.7 cm in greatest dimension. The specimen is entirely submitted in cassette (D1). E. The specimen, labeled "LS, ascending colon," is received in formalin and consists of t hree caraballo soft tissue fragment(s) that measure 0.2-0.4 cm in greatest dimension. The specimen is entirely submitted in cassette (E1). F. The specimen, labeled "LS, transverse colon," is received in formalin and consists of one caraballo soft tissue fragment that measures 0.4 cm in greatest dimension. The specimen is en tirely submitted in cassette (F1). G. The specimen, labeled "LS, descending colon," is received in formalin and consists of three caraballo soft tissue fragment(s) that measure 0.2-0.3 cm in greatest dimension. The specim en is entirely submitted in cassette (G1). H. The specimen, labeled "LS, sigmoid polyp," is received in formalin and consists of on e caraballo soft tissue fragment that measures 0.4 cm in greatest dimension. The specimen is entir derek submitted in cassette (H1). FB (under the direct supervision of a pathologist) The Gross Description was prepared using a voice recognition system. The report was revie wed for accuracy; however, sound-alike word errors, addition and/or deletions may occur. I f there is any question about this report, please contact Client Services. ADDITIONAL NOTES: Immunohistochemical and/or in situ hybridization studies were performed on this case with t he appropriate positive controls that react as expected. This test was developed and its p erformance characteristics determined by [facility]. It has not been cleared or approved by the U.S. Food and Drug Administration. The FDA has determined that such clearance or appro karley is not necessary. This test is used for clinical purposes. It should not be regarded as invest igational or for research. [facility] is certified under the Clinical Laboratory I mprovement Amendments of 1988 (CLIA) as qualified to perform high complexity clinical laboratory testi ng. PERFORMING LABORATORY: The technical component was performed by [facility], [address] [place] [id number] (Arboreal Scientist: Marilyn Dowell MD; CLIA# [id number]). Professional interpretation was performed by [facility], [facility], [address], [place] [address], [place], [place] [address] (Arboreal Scientist: Guevara Ernandez MD; CLIA# [id number]). Diagnostician: Guevara Ernandez MD Pathologist Electronically Signed 12/28/2018 Results for ASHLY GOMEZ ( ) as of 01/07/2019 15:09 Ref. Range 12/30/2018 00:00 WBC, External Latest Ref Range: 4.5 - 11 6.5 RBC, External Latest Ref Range: 3.8 - 5.1 4.21 HGB, External Latest Ref Range: 12 - 16 12.9 HCT, External Latest Ref Range: 35 - 45 37.8 MCV, External Latest Ref Range: 81 - 99 90 MCH Latest Ref Range: 27.0 - 33.0 pg 31.0 MCHC Latest Ref Range: 30.0 - 36.0 g/dL 34.0 RDW, External Latest Ref Range: 10.5 - 15 14.8 PLT, External Latest Ref Range: 140 - 440 230 Neutrophils %, External Latest Ref Range: 39 - 80 47.8 Lymphocytes %, External Latest Ref Range: 24 - 44 39.8 Monocytes %, External Latest Ref Range: 0 - 12 9.1 Eosinophils %, External Latest Ref Range: 0 - 6 2.8 % Basophils Latest Ref Range: 0.0 - 2.0 % 0.5 Sodium, External Latest Ref Range: 132 - 143 141 Potassium, External Latest Ref Range: 3.6 - 5.1 4.3 Carbon Dioxide, External Latest Ref Range: 19 - 31 26 Chloride, External Latest Ref Range: 95 - 112 104 Anion Gap Latest Ref Range: 7 - 21 mmol/L 15 Glucose, External Latest Ref Range: 70 - 100 106 (A) BUN, External Latest Ref Range: 6 - 23 17 Creatinine, External Latest Ref Range: 0.7 - 1.11 1.00 Bun/Creatinine Latest Ref Range: 6.0 - 28.6 Ratio 17.0 Albumin, External Latest Ref Range: 3.5 - 5 4.2 Calcium, External Latest Ref Range: 8.5 - 10.3 9.9 ALP, External Latest Ref Range: 31 - 130 101 ALT, External Latest Ref Range: 7 - 52 16 AST, External Latest Ref Range: 13 - 39 18 Bilirubin, Total, External Latest Ref Range: 0 - 1.2 0.5 Protein, Total, External Latest Ref Range: 6 - 8.3 6.9 A/G Ratio Latest Ref Range: 1.1 - 2.4 Ratio 1.6 eGFR, External Latest Ref Range: 60 - 99,999 53 (A) Globulin Latest Ref Range: 1.8 - 3.5 g/dl 2.7 CT chest/abdomen/pelvis at [facility] on December 31, 2018: TECHNIQUE: After administration of 100 mL Omnipaque 350 intravenously, axial CT imaging was obtained through the chest, abdomen, and pelvis with coronal and sagittal reformats. CLINICAL INFORMATION: gastric adenocarcinoma COMPARISON: CT dated 08/05/2018 chest radiograph 10/11/2009. FINDINGS: BONES: No osteoblastic or osteolytic lesion. [...] by: Jose Snyder MD Electronically signed: 12/31/2018 3:23 PM Pharmacovigilance: Palliative Care: Procedure: Luis Antony MD Portions of this chart may have been created with [employer] voice recognition software. Occasi onal wrong-word or sound-alike substitutions may have occurred due to the inherent hidalgo itations of voice recognition software. Please read the chart carefully and recognize, using context, where these substitutions have occurred. documented in this encounter Miscellaneous Notes Assessment & Plan Note - Luis Antony MD - 01/07/2019 5:44 PM PDTAssociated Prob kaylee(s): Malignant neoplasm of overlapping sites of stomach (HCC)Ashly Gomez is referr ed by Matthew Shukla Md [address] [place] [address] for evaluation and management of gastric adenocarcinoma. I met with Ashly and her daughter Nella, on 01/05/2019 at the [facility]. The patient's history includes chronic abdominal pain. Surgical history includes TEODORA/BSO for cervical cancer. Family history is notable for a daughter with breast cancer age 61, and a sister with bilat eral breast cancer. Review of systems is notable for weight loss. Clinical exam is negative for sarcopenia. Laboratory exam is negative for anemia. Imaging is negative for metastatic disease. Assessment: gastric adenocarcinoma. Consider linitis plastica. Consider Brca-related biolog y. Plan; Case was discussed extensively with Dr. Shukla, who affirms that there was no evidence for gastric mass or ulcer and that the biopsy of the stomach was random. Dr. Shukla also rep orted that he discussed the pathological findings with Dr. Guevara Ernandez at [facility], who aff irmed that the biopsy could be consistent with Linitis Plastica. Dr. Shukla agreed that the l ack of endoscopic or radiographic findings is atypical and agreed that endoscopic ultrasound is indicated for further evaluation. Dr. Shukla' office will co-ordinate endoscopic ultrasou nd with [facility] in [place]. I will follow up with Ashly dailey r her next procedure to review the results and to establish a plan of management. documented in t his encounter Plan of Treatment + + +--------+ + + | Name | Type | Priori | Associated Diagnoses | Order Schedule | | | | ty | | | + + +--------+ + + | AMB REFERRAL TO [facility] | Outpatient | Routin | Gastric | 1 Occurrences | | Medical Oncology | Referral | e | adenocarcinoma (HCC) | starting 01/05/2019 | | (cancer center) | | | | until 01/05/2019 [...]
--- OUTSIDE RECORDS SUMMARY | ~2020-02-10 | XMS | Encounter Summary ---
Demographics + + + | Address | [address] | | | [place] [address] | + + + | Home Phone [...] Team Providers + +------+ + | Care Copper Plate Printer Name | Role | Phone | + +------+ + | Long Copeland MD | PCP | | + +------+ + Reason for Visit + +--------+ + | Reason | Onset | Comments | | | Date | | + +--------+ + | Social Work Notes | 11/02/ | social work | | | 2020 | | + +--------+ + Encounter Details +--------+ + + + + | Date | Type | Department | Care Team | Description | +--------+ + + + + | 11/02/ | Telephone | [facility] | Work, Social | Social Work Notes | | 2020 | | Clinics at S | | (social work) | | | | [facility] [address] | | | | | | [facility] for | | | | | | Health and Healing, | | | | | | [address] | | | | | | [place], [place] | | | | | | [address] | | | | | | [phone] | | | +--------+ + + + [...] encounter Miscellaneous Notes Telephone Encounter - Mamie Richard, [place] - 11/03/2019 2:09 PM PDTSocial Work Brief Inte rvention Identified needs: SW referral from Tono Hairston, palliative PARTS CATALOGUER to assess emotional and pra ctical needs Interventions: Call placed to pt to discuss the above Reports spouse has memory loss - has initial appointment coming up to rule out dementia/al zheimer's etc.He is independent for all personal care needs. Has been getting dizzy - related to low BP - appt next week Assessed Ashly's current LOF: B ADLs: Bathing: Independent (I) Grooming/hygiene: I Toileting:I Denisha care:I Ambulation/mobility:I Transfers:I Bed mobility:I Eating:liquid diet - I. Questions the need for this. Will follow up with her PARTS CATALOGUER. I ADLs: House work:I Meal prep: preparing frozen meals for - decreased interest in cooking since she is unable to eat solid food. Driving/transportation:I Groceries:I - starting grocery online seed cone picker through [facility] blairement: I Appointment management:I Yard work:I Supports: Dtr Nella. Reports Nella is heavily involved in oncology care. Prefers that I do not reach o ut to Nella at this time. Recommendations and Referrals: Pt denies support and resource needs at this time. Is happy to know that support exists should she need it in the future. She has specifically request ed that I not reach out to her dtr. [place] Muller, [facility] Glazing Department Supervisor [phone] Pager # [phone] documented in this encounter Plan of Treatment +--------+ + + + + | Date | Type | Specialty | Care Team | Description | +--------+ + + + + | 05/08/ | Telephone-S | Hematology & | Rodriguez Bower MD | | 2019 | cheduled | Oncology | [address] | | | | | | [place], [place] | | | | | | [address] | | | | | | [phone] | | | | | | | | +--------+ + + + + documented as of this encounter Visit Diagnoses Not on filedocumented in this encounter"
--- OUTSIDE RECORDS SUMMARY | ~2020-02-10 | XMS | Encounter Summary ---
Demographics + + + | Address | [address] | | | [place] [address] | + + + | Home Phone [...] Team Providers + +------+ + | Care Change Control Manager Name | Role | Phone | + +------+ + | Long Copeland MD | PCP | | + +------+ + Encounter Details +--------+ + + + + | Date | Type | Department | Care Team | Description | +--------+ + + + + | 02/18/ | Outside | UNKNOWN DEPARTMENT | Other, Faculty | | | 2019 | Records | [address] [facility] | [phone] | | | | | [address] | | | | | | [place], [place] | | | | | | [address] | | | +--------+ + + + [...] [address] | | | | | | [place], [place] | | | | | | [address] | | | | | | [phone] | | | | | | | [...]
--- OUTSIDE RECORDS SUMMARY | ~2020-02-10 | XMS | Encounter Summary ---
Demographics + + + | Address | [address] | | | [place] [address] | + + + | Home Phone [...] Team Providers + +------+ + | Care Fur Remodeler Name | Role | Phone | + [...] + + | 07/28/ | Office | [facility] | Rodriguez Bower MD | Metastatic breast | | 2020 | Visit | Clinics at S | [address] [facility] | cancer (HCC) | | | | [facility] [address] | [facility] [place] | (Primary Dx) | | | | [facility] | [address] | | | | | Health and Healing, | [phone] | | | | | [address] | | | | | | [place], [place] | | | | | | [address] | | | | | | [phone] | | | +--------+---------+ + + + [...] adenocarcinoma -saw Dr. Antony of oncology at [place], discussed getting EUS for further evaluati on [...] as a telephone encounter secondary to the ID- pandemic) I called the patient today to [...] with her daily activities. She lives in [place] with her , whom she cares for [...] of bladder for frequent UTIs BLADDER SUSPENSION 2006 Lynx retropubic sling BLADDER SUSPENSION 07/2010 revision [...] REPAIR KNEE ARTHROSCOPY 2001 TONSILLECTOMY AND ADENOIDECTOMY 194 TOTAL ABDOMINAL HYSTERECTOMY 1974 age 33, cervical [...] Diagnosis 1. Multiple specimens A to F [id number]; 01/13/19): A. Stomach, antrum at great curvature, [...] Bonifacio Resendez MD Pathologist Pathology, [facility] [place] My electronic signature indicates that I have [...] issues noted above. Rodriguez Bower MD, MS ID#[id number] Sap Pp Consultantevaporator Division of Hematology and Medical Oncology [facility] [place] Pager#[phone] documented in this enco unter Plan of Treatment +--------+ + + + + | Date | Type | Specialty | Care Team | Description | +--------+ + + + + | 05/08/ | Telephone-S | Hematology & | Rodriguez Bower MD | | | 2020 | cheduled | Oncology | [address] | | | | | | [place], [place] | | | | | | [address] | | | | | | [phone] | | | | | | | | +--------+ + + + + documented as of this encounter Visit Diagnoses + + | Diagnosis | + + | Metastatic breast cancer (HCC) - Primary | + + documented in this encounter"
--- OUTSIDE RECORDS SUMMARY | ~2020-02-10 | XMS | Encounter Summary ---
Demographics + + + | Address | [address] | | | [place] [address] | + + + | Home Phone [...] Author | [facility] | | | and [place] | + + + | Organization | [facility] | | [...] + | Matthew Gomez | ECON | [address] | | | | | [place] | | | | | [address] | | + + + + + Care Team Providers + +------+ + | Care Deputy Attorney General Name | Role | Phone | + [...] | | | | [K31.9] | | [address] Phone: | | | | | Procedures | | [phone] | | | | | [place] | | Fax: | | | | | ESOPHAGOGAST | | [phone] | | | | | R[place]EN[place] | [...] + | 01/13/ | Surgery | [facility] | Sukumar Stevenson MD | ENDOSCOPIC | | 2019 | | [facility] | [address] [place] | ULTRASOUND, EGD | | | | INTRA OP [address] | [address] [place] | | | | | [address] [place] | [address] | | | | | [address] | | | | | | [phone] | | | +--------+---------+ + + + [...] + + + | Blood Pressure | 131/60 | 01/13/2019 10:14 AM | | | | | PDT | | + + + + + | Pulse | 71 | 01/13/2019 10:14 AM | | | | | PDT | | + + + + + | Temperature | 36.9 C (98.4 F) | 01/13/2019 10:14 AM | | | | | PDT | | + + + + + | Respiratory Rate | 16 | 01/13/2019 10:14 AM | | | | | PDT | | + + + + + | Oxygen Saturation | 96% | 01/13/2019 10:14 AM | | | [...] 01/13/2019 13:35 documented in this en counter H&P Notes Sukumar Stevenson MD - 01/13/2019 12:00 PM PDT PRESEDATION ASSESSMENT/PLAN Pertinent History and Pre-Procedure Diagnosis: Patient presents to endoscopy for evaluati on of recently diagnosed gastric adenocarcinoma on 1 of the random biopsies during EGD perfo rmed by Dr. San. Proposed Procedure: EGD and EUS Sedation Preassessment: ASA Classification: ASA 3 - A patient with severe systemic disease Past Medical History: Diagnosis Date Abdominal pain Abnormal Hepatic Enzyme Acid reflux Acid reflux disease Acute reaction to stress Allergic rhinitis Anxiety disorder Arthritis Benign paroxysmal positional vertigo Benign paroxysmal vertigo Bladder irritability Bronchitis Cataract, right eye Cervical cancer (HCC) Chronic cough Chronic sinusitis Complete intestinal obstruction, unspecified as [...] Neoplasm of uncertain behavior of skin Osteoarthritis Pneumonia x2-3 times Primary localized osteoarthritis of left knee Sepsis (HCC) 2016 Hx of urosepsis and sepsis Sinus infection Snores Thyroid activity decreased Vertigo Vision loss of left eye secondary to amblyopia as a child Past Surgical History: Procedure Laterality Date APPENDECTOMY 1950 ARTHROPLASTY Left 02/13/2018 Procedure: ARTHROPLASTY 3rd and 4th Digits with Impalnt Revision; Surgeon: Jose Randall DPM; Location: [facility] DIONICIO [facility] SURGERY BLADDER REPAIR 1971 BLADDER SUSPENSION 2007 CARPAL TUNNEL RELEASE Bilateral CATARACT REMOVAL Right 03/2016 CHOLECYSTECTOMY, LAPAROSCOPIC 1997 COLECTOMY 2004 recurrent diverticulitis COLONOSCOPY 01/2018 One diminutive polyp COLONOSCOPY N/A 12/17/2018 Procedure: COLONOSCOPY; Surgeon: Matthew San MD; Location: [facility] MEDICAL PROCEDURE UNIT FINGER SURGERY Left 2007 Thumb surgery for osteoarthritis FINGER SURGERY Left 11/2008 FINGER SURGERY Right 04/2012 Thumb surgery HAMMER TOE SURGERY Right 03/06/2017 Procedure: Correction Hammer Toes 2nd , 3rd, and 4th Toes; Surgeon: ANNIE Cuevas; Location: [facility] DIONICIO RONDE SURGERY HAMMER TOE SURGERY Left 07/04/2017 Procedure: CORRECTION HAMMERTOES 2, 3, 4; Surgeon: Jose Randall DPM; Location: [facility] DIONICIO [facility]ON[facility] SURGERY HAMMER TOE SURGERY Left 2017 x3 KNEE ARTHROSCOPY Right 2001 PUBOVAGINAL SLING 10/16/2010 TVT Retropubic sling at [facility] SIGMOID COLECTOMY 12/20/2002 Franck Davis MD - [facility] 1996 TONSILLECTOMY AND ADENOIDECTOMY 194 TOTAL KNEE ARTHROPLASTY Right 07/11/2011 TUBAL LIGATION 1976 UPPER GASTROINTESTINAL ENDOSCOPY N/A 12/17/2018 Procedure: EGD; Surgeon: Matthew San MD; Location: [facility] MEDICAL PROCEDURE UNIT URETHROPEXY 07/11/2010 Revision sling urethropexy Allergies Allergen Reactions Sulfa Antibiotics Swelling Lip swelling Codeine Sulfate Hallucination Pollen Extract Other (See Comments) and Cough Runny nose, horseness SEE MED LIST Patient Reported Taking Dosage acetaminophen (TYLENOL 8 HOUR ARTHRITIS PAIN) 650 MG CR tablet (Taking) Take 650 mg by mo uth every 8 hours as needed for Pain. albuterol (PROAIR HFA) 90 mcg/puff inhaler (Taking) Inhale 2 puffs into the lungs EVERY 4 TO 6 HOURS NEEDED for Wheezing. Number of times this order has been changed since signin Order Audit [place] ALPRAZolam (XANAX) 0.25 mg tablet (Taking) Take 0.25 mg by mouth as needed. Ascorbic Acid (VITAMIN C) 1000 MG tablet (Taking) Take 1,000 mg by mouth Daily. Calcium Carb-Cholecalciferol 600-200 MG-UNIT TABS (Taking) Take 2 tablets by mouth Daily. Cetirizine HCl (EQ ALLERGY RELIEF, CETIRIZINE, PO) (Taking) Take 2 tablets by mouth 2 jimena es daily. cholecalciferol (VITAMIN D-3) 1000 UNITS TABS (Taking) Take 1,000 Units by mouth Daily. doxepin (SINEQUAN) 75 MG capsule (Taking) Take 75 mg by mouth nightly. DULoxetine (CYMBALTA) [address] capsule (Taking) Take 30 mg by mouth Daily. DULoxetine (CYMBALTA) [address] capsule (Taking) Take 60 mg by mouth Daily. Number of times this order has been changed since signin Order Audit [place] fish oil 1,000 mg capsule (Taking) Take 1,000 mg by mouth Daily. fluticasone (FLONASE) 50 mcg/nasal spray (Taking) 4 sprays by Nasal route every evening. 2 sprays each nostril once a day every evening fluticasone-salmeterol (ADVAIR, WIXELA INHUB) 250-50 mcg/puff diskus inhaler (Taking) Inh maico 1 puff into the lungs every morning. Advair Diskus 250 mcg-50 mcg/dose powder for inhala tion 1 puff in am 1 puff in PM if needed fluticasone-salmeterol (ADVAIR, WIXELA INHUB) 250-50 mcg/puff diskus inhaler (Taking) Inh maico 1 puff into the lungs Daily as needed (in evening if needed in addition to the daily dos e). Advair Diskus 250 mcg-50 mcg/dose powder for inhalation 1 puff in am 1 puff in PM if nee ded levothyroxine (SYNTHROID, LEVOTHROID) 112 mcg tablet (Taking) Take 112 mcg by mouth Daily . lisinopril (PRINIVIL, ZESTRIL) 20 mg tablet (Taking) Take 20 mg by mouth Daily. oxyCODONE-acetaminophen (PERCOCET) 5-325 mg per tablet (Taking) Take 1 tablet by mouth Tw ice daily as needed for Pain. Probiotic Product (PROBIOTIC DAILY PO) (Taking) Take 1-2 capsules by mouth Daily. " Perfe ct Biotic " vitamin B-12 (CYANOCOBALAMIN) 1000 MCG tablet (Taking) Take 1,000 mcg by mouth Daily. VITAMIN E PO (Taking/Discontinued) Take by mouth Daily. VITAMIN E PO (Taking) Take 1 capsule by mouth Daily. Review of Systems: 10 point ROS completed and noncontributory other than listed in pertinent history. Exam within normal limits: Airway/Dental: yes Cardiac: Yes Chest/respiratory: Yes Level of consciousness: Normal Abdomen: abdomen is soft without significant tenderness, masses, organomegaly or guarding Plan for Sedation: Deep Sedation (MAC with Propofol) ASSESSMENT: Active Problems: * No active hospital problems. * PLAN: Available medical records have been reviewed. Medication list has been reviewed. NPO status is acceptable. Patient approved for planned sedation and procedure. PARQ held: PARQ conference regarding the above mentioned procedure was held with the patien t or patient's field sales representative prior to the procedure. Benefits and alternatives were reviewe d. Risks of procedure and sedation including bleeding, infection, perforation, missed lesion s were discussed. All questions were answered. Patient wishes to proceed. Electronically sig jeanie by Sukumar Stevenson MD at 01/13/2019 1:00 PM PDTdocumented in this encounter Miscellaneous Notes D-C Instructions Provation - Sukumar Stevenson MD - 01/13/2019 11:39 AM PDTPatient Instruction s After Upper EUS Patient: Ashly Gomez Procedure Date: Sunday, January 13, 2019 Attending MD: SUKUMAR STEVENSON MD; Work: You had a Upper EUS today. Your doctor made the following findings: 1. 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 The signs and symptoms of potential delayed complications were discussed with you. You may return to normal activities tomorrow. Written discharge instructions were provided to you. Resume your previous diet. Continue your present medications. We are waiting for pathology results. Return to your referring physician in one week. CALL YOUR PHYSICIAN IF YOU EXPERIENCE: Work: < Any unusual abdominal pain. < Any shoulder pain. < Temperature above 100 degrees Fahrenheit < Rectal bleeding in excess of 2 Tablespoons DIET: If you have undergone diagnostic colonosocpy, you may resume your regular diet immediately after the procedure unless otherwise instructed by your doctor. CAUTIONS: The medications used to make the examination more comfortable for you will be acting in your body for up to 24 hours. Therefore: < DO NOT drive a car or operate machinery or power tools. < DO NOT drink alcohol or take tranquillizers or sleeping pills. < DO NOT make major personal decisions. This includes signing legal documents and/or contracts. MEDICATIONS: Most medications can be safely resumed once you can eat. The exceptions would be tranquillizers and sleeping pills. SUKUMAR STEVENSON MD 01/13/2019 1:07:25 PM This report has been signed electronically.Electronically signed by Sukumar Stevenson MD at 08/2018 1:07 PM PDTdocumented in this encounter Plan of [...] | [facility] | | ASHLY GOMEZ | [facility] | | : 1940 AGE: 78 years SEX: Female | MEDICAL CENTER | | | LABORATORY | | Acct: [id number] Location: | [facility] | [facility] MEDICAL PROCEDURE UNIT POOL; [facility] | | | MEDICAL PROCEDURE UNIT POOL | | | Case #: [id number] Ordering: | | | SUKUMAR STEVENSON MD Client: [facility] | | | [facility] Copy To: | | | [...] fragments. | | | Mild inactive chronic gastritis.MTR/SK 01/14/19 01:36 pmVerified | | | by: ANNABELLE FULLER MDVerify Date: 01/20/2019 09:40 [facility] | | | [facility] [address] | | | SURGICAL PATHOLOGY FINAL REPORTCollected: [...] | fundus biopsies" are five fragments of craaballo soft tissue 0.1 to 0.4 cm. | | | Submitted entirely in "F1".CZ/DB09/04/MICROSCOPIC | | | DESCRIPTION:Histologic sections of all [...] their performance characteristics determined by [facility]. This test is used for clinical | | | purposes. It should not be regarded as investigational or for | | | research. [facility] is certified under the Clinical | [...] + | [facility] | [address] | [place] [address] | | | [facility] | | | | | [place] | | | | + + + + + EUS Upper (01/13/2019 11:39 AM PDT) + + | Specimen | + + | | + + + + + | Narrative | Performed At | + + + | [facility] | [place] | | [facility] | PROVATION | | [facility] | | | Patient Name: Ashly Gomez Procedure | | | Date: 01/13/2019 11:39 AMMRN: [id number] | | | of : 1940 | [...] Dr. SanReferring: | | | MATTHEW SAN, [facility]IL[facility]ATIONedicines: Monitored | | | Anesthesia CareComplications: No [...] AMNumber | | | of Addenda: 0 [facility] - | | | Endoscopy Services | | | | | |SUKUMAR STEVENSON MD | | |01/13/2019 1:07:25 PM | | |This report has been signed electronically. | | | | | |Note Initiated On: 01/13/2019 11:39 AM | | |Number of Addenda: 0 | | | | | | [facility] | | + [...] | TRACEMASTER | | Duration:172 msP Horizontal [place]:28 degP Front [place]:60 degQ Onset:512 | | | msQRSD Interval:136 msQT Interval:448 msQTcB:477 msQTcF:467 msQRS | | | Horizontal [place]:150 degQRS [place]:-35 degI-40 Horizontal [place]:34 degI-40 | | | Front [place]:74 degT-40 Horizontal [place]:151 degT-40 Front [place]:-77 degT | | | Horizontal [place]:8 degT Wave [place]:51 degS-T Horizontal [place]:21 degS-T | | | Front [place]:83 degSeverity:- ABNORMAL ECG -INTERP:SINUS | | | RHYTHMINTERP:VENTRICULAR PREMATURE COMPLEXINTERP:RBBB AND | | | LAFBINTERP:LEFT VENTRICULAR HYPERTROPHYElectronically signed by: | | | ANDREAS MAXWELL 01-18-2019 07:24:33 | | |QTcF:467 ms | | |QRS Horizontal [place]:150 deg | | |QRS [place]:-35 deg | | |I-40 Horizontal [place]:34 deg | | |I-40 Front [place]:74 deg | | |T-40 Horizontal [place]:151 deg | | |T-40 Front [place]:-77 deg | | |T Horizontal [place]:8 deg | | |T Wave [place]:51 deg | | |S-T Horizontal [place]:21 deg | | |S-T Front [place]:83 deg | | |Severity:- ABNORMAL ECG - [...] + + + + + | [facility] | [address] | [place] [address] | [phone] | + + + + + POC Glucose (01/13/2019 10:06 AM PDT) + + + + + + | Component | Value | Ref Range | Performed | Pathologist | | | | | At | Signature | + + + + + + | Glucose, | 111 (H)Comment: | 65 - 99 mg/dL | [facility] | | | POC | Performed by [facility] [address] | [address] | | | [address], [place] | | HEART | | | | | | MEDICAL | | | | [...] | + + + + + | [facility] | [address] | [place] [address] | | | HEART [facility] | | | | | [...] SEE | | | ADMIN INST., Starting 9/4/19 | | | at 0931, Only for [...] scheduled: AC, NPO, Daytime | | | [id number] Use NIGHT DOSE for | | | doses scheduled: HS, 3AM, | | | Nighttime 8630-6128 If the BG is | | | [...]
--- OUTSIDE RECORDS SUMMARY | ~2020-02-10 | XMS | Encounter Summary ---
Demographics + + + | Address | [address] | | | [place] [address] | + + + | Home Phone [...] + + + | Author | [facility] | | | and [place] | + + + | Organization | [facility] | | [...] + | Matthew Ramirez | ECON | [address] | | | | | [place] | | | | | [address] | | + + + + + Care Team Providers + +------+ + | Care Java Solutions Architect Name | Role | Phone [...] | | | unspecified | | [place] [address] | | | | | type | | Phone: | | | | | Chronic | | [phone] | | | | | abdominal | | Fax: | | | | | pain | | [phone] | | | | | Benzodiazepi | [...] + + | 12/17/ | Hospital | [facility] | Matthew Shukla MD | Rectal bleeding; | | 2019 | Encounter | MED CTR MP INTRA OP | [address] | Diarrhea, | | | | [address] | [place] | unspecified type; | | | | [place], [place] | [address] | Chronic abdominal | | | | [address] | [phone] | pain; Benzodiazepine | | | | [phone] | | dependence (HCC); | | | [...] Impalnt Revision; Surgeon: Jose Randall DPM; Location: [facility] SURGERY BLADDER REPAIR 1971 BLADDER SUSPENSION 2007 [...] and 4th Toes; Surgeon: ANNIE Cuevas; Location: [facility] SURGERY HAMMER TOE SURGERY Left 07/04/2017 Procedure: CORRECTION HAMMERTOES 2, 3, 4; Surgeon: Jose Randall DPM; Location: [facility] RONTX SURGERY HAMMER TOE SURGERY Left 2018 x3 HYSTERECTOMY 1997 KNEE ARTHROSCOPY Right 2001 KNEE JOINT REPLACEMENT Bilateral PUBOVAGINAL SLING 10/16/2010 TVT Retropubic sling at [facility] TONSILLECTOMY AND ADENOIDECTOMY 1948 TOTAL KNEE ARTHROPLASTY [...] Electronically Signed by: Matthew Shukla MD 12/17/2018 [facility] Portions of this chart may have been created with [employer] voice recognition software. Occasi onal wrong-word or [...] Endoscopy Patient: Ashly Ramirez : 1940 Acct: [id number] Exam Date: December Doctor: Matthew Shukla MD [...] If unable to reach your physician, call [facility] Emergency Department at Ext. 2500 Your [...] Exams Patient: Ashly Ramirez : 1940 Acct: [id number] Exam Date: December Doctor: Matthew Shukla MD [...] If unable to reach your physician, call [facility] Emergency Department at Ext. [address] Your [...] 12/17/2018 | [facility] | | 3:06 PMMRN: [id number] #: [id number] of : | | | 9Admit Type: [...] | | | the anesthesiologist and the product support technician in the pre-procedure | | | [...] [facility], [address] [facility] | | | [place] [address] | | | - Await pathology results. [...] [facility], [address] [facility], [place] | | | [address] | | + + -+ + +---------+ [...] 12/17/2018 | [facility] | | 3:04 PMMRN: [id number] #: [id number] of : | | | 1940dmit Type: [...] the anesthesiologist and the | | | product support technician in the pre-procedure area in the [...] | | | evaluated using the BBPS (Preston Bowel Preparation Scale) with | | | [...] [facility], [address] [place] [address], | | | [place] [address] | | | - Await pathology results. [...] [facility], [facility] [address] [facility], [place], [place] | | | [address] | | + + -+ + +---------+ [...] | COMMENT: A -- As part of [facility]' Quality Improvement | | | Program, this portion of the case has been reviewed by another member | | | of our pathology staff with subspecialty training in gastrointestinal | | | pathology. Results called to Dr. Shukla office ([place]) 12/24/18 | | | 10:15 AM. Discussed [...] | and its performance characteristics determined by [facility]. | | | It has not been cleared or approved by the U.S. Food and Drug | | | Administration. The FDA has determined that such clearance or | | | approval is not necessary. This test is used for clinical purposes. | | | It should not be regarded as investigational or for research. | | | [facility] is certified under the Clinical Laboratory | | | Improvement Amendments of 1988 (CLIA) as qualified to perform high | | | complexity clinical laboratory testing. PERFORMING LABORATORY: | | | The technical component was performed by [facility], [address] | | | [place] [address] (Saw Setter: Marilyn Dowell MD; | | | CLIA# [id number]). Professional interpretation was performed by | | | [facility], [facility], [address] [facility]. | | | [address] [place] [address] (Saw Setter: Guevara Ernandez, | | | ; CLIA# [id number]). ADDITIONAL NOTES: Immunohistochemical | | | and/or in situ hybridization studies were performed on this case with | | | the appropriate positive controls that react as expected. This test | | | was developed and its performance characteristics determined by | | | [facility]. It has not been cleared or approved by the U.S. | | | Food and Drug Administration. The FDA has determined that such | | | clearance or approval is not necessary. This test is used for | | | clinical purposes. It should not be regarded as investigational or | | | for research. [facility] is certified under the Clinical | | | Laboratory Improvement Amendments of 1988 (CLIA) as qualified to | | | perform high complexity clinical laboratory testing. PERFORMING | | | LABORATORY: The technical component was performed by [facility] | | | [facility], [address] [place] [address] (Saw Setter: | | | Marilyn Dowell MD; CLIA# [id number]). Professional interpretation was | | | performed by [facility], [address] | | | [place] [address] (Saw Setter: Darien Kapoor D.O.; CLIA#: | | | [id number]). REASON FOR ADDENDUM: To add results of [...] the FDA-approved HER-2 Pathway is performed at [facility] | | | [place], [place], on accession #[id number] from at the [...] the Vysis PathVysion kit was performed at [facility] | | | [place], [place]. The assay has not been validated [...] 4.0 | | | regardless of ratio). MZ:gissell Professional interpretation was | | | performed by [facility], [address] [facility] | | | [place] [address] (Saw Setter: Darien Kapoor D.O.; IA#: | | | [id number]). Diagnostician: Guevara Ernandez MD Pathologist | | [...] | | | Wheezing, Starting [facility] 12/17/18 at | | | 1346, For 1 dose, Pre-op | | + +---+ | | | + +---+ | albuterol-ipratropium 2.5-0.5 | | | mg/3 mL nebulizer solution 3 mL | | | 3 mL, Nebulization, ONCE PRN, | | | Wheezing, Shortness of Breath, | | | Starting [facility] 12/17/18 at 1615, For | | [...] glucose < 50, | | | Starting [facility] 12/17/18 at 1346, | | | [...]
--- OUTSIDE RECORDS SUMMARY | ~2020-02-10 | XMS | Encounter Summary ---
Demographics + + + | Address | [address] | | | [place] [address] | + + + | Home Phone [...] Phone | + + +---------+ + | Nlela Haque | ECON | Unknown | | + + +---------+ + Care Team Providers + +------+ + | Care Track Equipment Operator Name | Role | Phone | + +------+ + | Long Copeland MD | PCP | | + +------+ + Encounter Details +--------+ + + + + | Date | Type | Department | Care Team | Description | +--------+ + + + + | 12/31/ | Outside | UNKNOWN DEPARTMENT | Other, Faculty | | | 2019 | Records | [address] [facility] | [phone] | | | | | [address] | | | | | | [place], [place] | | | | | | [address] | | | +--------+ + + + [...] [address] | | | | | | [place], [place] | | | | | | [address] | | | | | | [phone] | | | | | | | [...]
--- OUTSIDE RECORDS SUMMARY | ~2020-02-10 | XMS | Encounter Summary ---
Demographics + + + | Address | [address] | | | [place] [address] | + + + | Home Phone | | + + + | Preferred Language | Unknown | + + + | Marital Status | | + + + | Restoration Affiliation | Unknown | + + + | Race | White | + + + | Ethnic Group | Not or | + + + Author + + + | Author | [facility] | | | and [place] | + + + | Organization | [facility] | | | [...] + | Matthew Ramirez | ECON | [address] | | | | | [place] | | | | | [address] | | + + + + + Care Team Providers + +------+ + | Care Telephone Worker Name | Role | Phone | + +------+ + PCP | Unavailable | + +------+ + Encounter Details +--------+ + + + + | Date | Type | Department | Care Team | Description | +--------+ + + + + | 06/15/ | Hospital | [facility] | | | | 2005 | Encounter | MED CTR XRAY [address] | | | | | | [address] | | | | | | [place] [address] | | | | | | [phone] | | | +--------+ + + + [...]
--- OUTSIDE RECORDS SUMMARY | ~2020-02-10 | XMS | Encounter Summary ---
Demographics + + + | Address | [address] | | | [place] [address] | + + + | Home Phone [...] + | Author | [facility] | | | and [place] [...] + | Matthew Gomez | ECON | [address] | | | | | [place] | | | | | [address] | | + + + + + Care Team Providers + +------+ + | Care Mental Health Case Manager Name | Role | Phone | [...] 07/04/ | Surgery | [facility] | Guillermo Randall | CORRECTION | | 2018 | | HOSP[facility] OR INTRA OP | Fab, DPM [address] | MARSHA 2, 3, 4 | | | | [address] [place] | [facility], | | | | | [place], [place] | [place] [address] | | | | | [address] | [phone] | | | | | [phone] | | | +--------+---------+ + + + [...] + + + | Blood Pressure | 131/79 | 07/04/2017 10:27 AM | | | | | PST | | + + + + + | Pulse | 70 | 07/04/2017 10:27 AM | | | | | PST | | + + + + + | Temperature | 36.2 C (97.2 F) | 07/04/2017 8:37 AM | | | | | PST | | + + + + + | Respiratory Rate | 16 | 07/04/2017 10:27 AM | | | | | PST | | + + + + + | Oxygen Saturation | 93% | 07/04/2017 10:27 AM | | | | | PST [...] arthrodesis site. Right foot - 2 views (60542 RT). Left foot - 3 views (76302LJ). Art hrodesis noted to 3rd digit, arthroplasty [...] benefits and alternatives were described indetail to abel motta patient, no gaurantees were given nor implied. All questions were answered to her satisfa ction, Verbal and Written pre and post operative instructions were given to the patient including but no limited to NPO instructions and instructions on any changes to medication schedule. Guillermo Randall 06/27/2017 Pippa soto in this encounter Miscellaneous Notes Op Note - Guillermo Randall DPM - 07/04/2017 10:36 AM [facility] [address] [place] [address] OPERATIVE REPORT GUILLERMO RANDLAL DPM Patient: ASHLY GOMEZ Admitting: GUILLERMO RANDALL MR #: [id number] LOC: PT TYPE: Adm Date: 07/04/2017 : 1940 Surgery was performed in [facility] in [place], [place], on 07/04/2017. ATTENDING SURGEON: Guillermo Randall [...] 07/04/2017 10:36:45 Transcribed on 07/04/2017 11:04:22 by [facility] job# [id number] Confirmation #: [id number] signed by Guillermo Randall DPM at 07/17/2017 4:58 PM PSTBrief Op Note - Guillermo Randall DPM - 07/04/2017 10:23 AM PST Brief Operative Note Ashly Gomez 76 y.o. female 1940 [id number] Foot & Ankle Surgery Brief Post Operative Note 10:24; 07/04/2017 Ashly Gomez Age/Gender 76 y.o. female [facility] OR INTRA OP Attending Guillermo Randall DPM Hosp Day # 0 PCP Ashly Rojo PA-C Date of Surgery: 07/04/2017 Pre-op Diagnosis: Left 2nd,3rd,4th hammertoes Post-op Diagnosis: Same Procedure: Left 2nd,3rd PIPJ arthrodesis, left 4th digit arthroplasty Surgeon: Guillermo Randall DPM Assistants: none Anesthesia: MAC Hemostasis: Left ankle tourniquet at 250mmHg [id number] Indication Findings See operative report. Implants Used: [...] by: Guillermo Randall DPM 07/04/2017 10:23 CC [facility] 10 :25 AM PSTdocumented in this encounter [...] | | Surgical | | PRN, Starting 07/04/17 at | | 18 9:52 | | | Site | | 0952, Intra-op | | AM PST | | | | + +-------+ +--------+---+ + +---+---+ | | | +---+---+ documented in this encounter"
--- OUTSIDE RECORDS SUMMARY | ~2020-02-10 | XMS | Encounter Summary ---
Demographics + + + | Address | [address] | | | [place] [address] | + + + | Home Phone [...] + | Author | [facility] | | | and [place] [...] + | Matthew Ramirez | ECON | [address] | | | | | [place] | | | | | [address] | | + + + + + Care Team Providers + +------+ + | Care Hand Zipper Trimmer Name | Role | Phone | + +------+ + | Ashly Rojo PA-C | PCP | | + +------+ + Reason for Visit + +--------+ + | Reason | Onset | Comments | | | Date | | + +--------+ + | Coordination Of Care | 03/18/ | | | | 2019 | | + +--------+ + Encounter Details +--------+ + + + + | Date | Type | Department | Care Team | Description | +--------+ + + + + | 03/18/ | Telephone | [facility] | Arpan | Coordination Of Care | | 2018 | | MED [facility] MEDICAL | Luis Richards MD [address] | | | | | ONCOLOGY CLINIC [address] | [facility] | | | | | [address] | [address] [place], [place] | | | | | [place] [address] | [address] | | | | | [phone] | | | +--------+ + + + [...] Telephone Encounter - Luis Antony MD - 03/18/2019 4:31 PM PSTNoted. Thank you. Electronically signed by: Luis Antony MD 03/18/2019 16:31 elephone Gloria Epstein - 03/18/2019 4:14 PM PSTDrPeggy Claudia is calling from Dr. Bower's offi ce. They saw Mr. Ramirez today. They are recommending MRI breast now. They are starting her on tamoxifen. Recommending PET CT in 6 months (September) to be done in this area.. She bri l followup with Dr. Bower;s office.in 6 mo. If you have any questions, please call i's cellphone @[phone]. documented in this encounter Plan of Treatment Not on filedocumented as of this encounter Visit Diagnoses Not on filedocumented in this encounter"
--- OUTSIDE RECORDS SUMMARY | ~2020-02-10 | XMS | Encounter Summary ---
Demographics + + + | Address | [address] | | | [place] [address] | + + + | Home Phone [...] + | Author | [facility] | | | and [place] | + + + | Organization | [facility] | | | [...] + | Matthew Ramirez | ECON | [address] | | | | | [place] | | | | | [address] | | + + + + + Care Team Providers + +------+ + | Care Linux Admin Engineer Name | Role | Phone | + +------+ + PCP | Unavailable | + +------+ + Encounter Details +--------+ + + + + | Date | Type | Department | Care Team | Description | +--------+ + + + + | 11/24/ | Hospital | [facility] | [place], | | | 2009 | Encounter | MED CTR GENERIC OP | Katerin Xavier MD | | | | | CONV DEPT [address] | | | | | | [place], | | | | | | [place] [address] | | | | | | [phone] | | | +--------+ + + + [...]
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
--- OUTSIDE RECORDS SUMMARY | ~2020-02-10 | XMS | Encounter Summary ---
Demographics + + + | Address | [address] | | | [place] [address] | + + + | Home Phone [...] Team Providers + +------+ + | Care Brick Veneer Maker Name | Role | Phone | + +------+ + | Long Copeland MD | PCP | | + +------+ + Reason for Visit + +--------+ + | Reason | Onset | Comments | | | Date | | + +--------+ + | Symptom Management | 07/27/ | Constipation | | | 2020 | | + +--------+ + Encounter Details +--------+ + + + + | Date | Type | Department | Care Team | Description | +--------+ + + + + | 07/27/ | Telephone | [facility] | Rodriguez Bower MD | Symptom Management | | 2020 | | Clinics at S | [address] | (Constipation) | | | | [address] | [place], [place] | | | | | [facility] for | [address] | | | | | Health and Healing, | [phone] | | | | | [address] | | | | | | [place], [place] | | | | | | [address] | | | | | | [phone] | | | +--------+ + + + [...] this encounter Miscellaneous Notes Telephone Encounter - Gabriela Duncan RN - 07/28/2019 9:12 AM PDTCall back to patient to inform that Dr Bower will plan to do phone visit tomorrow at 1335, previously scheduled jimena zuniga. Requested patient stay near phone around that time so she does not miss his call. Patient agreed and appreciates opportunity for phone visit. elephone Encounter - Gabriela Duncan RN - 07/28/2019 8:22 AM PDTReceived call from patient reporting issues with constipation due to taking increased oxycodone for back pain. Patient has only passed small amounts of very hard stool for the l ast 4 days. Patient reports significant abd discomfort and pain to the L of her umbilicus. Adryan nye has history of multiple bowel obstructions. Due to the increased back pain and seemin gly complex GI history recommended patient call PCP DAVID to f/u on concerns. Patient agreed. During call patient mentioned that she is scheduled to come to [facility] tomorrow to see Dr Sheldon kuo and given her current condition she is unsure if she will be up to the trip. Informed kelle ent that this appointment could possible be changed to a phone visit or rescheduled. This RN will contact the team to advise and someone will call her back prior to the end of the day. Patient agreed with plan and wanted to make sure that [facility] has received PET scan she had co mpleted recently. ele phone Encounter - Janneth Vasques - 07/28/2019 8:04 AM PDTWhat are your symptoms? pt states she has been taking oxycodone for pain too many days in a row and she is so bound-up and mis erable. Last Bowel movement was about 4 days ago. Are you having any pain?: yes Severity scale 0-10 (or mild/moderate/severe)?: 8 How long have you had these symptoms?: has had issues with constipation and diarrhea in the past, but all the sudden it is really bad. Action taken: Transferred call to needle grader/RNC (name): Gabriela documented in this encounte r Plan of Treatment +--------+ + + + + | Date | Type | Specialty | Care Team | Description | +--------+ + + + + | 05/08/ | Telephone-S | Hematology & | Rodriguez Bower MD | | | 2020 | cheduled | Oncology | [address] | | | | | | [place], [place] | | | | | | [address] | | | | | | [phone] | | | | | | | | +--------+ + + + + documented as of this encounter Visit Diagnoses Not on filedocumented in this encounter"
--- OUTSIDE RECORDS SUMMARY | ~2020-02-10 | XMS | Encounter Summary ---
Demographics + + + | Address | [address] | | | [place] [address] | + + + | Home Phone [...] Providers + +------+ + | Care Technical Mgr Name | Role | Phone | + +------+ + | Long Copeland MD | PCP | | + +------+ + Encounter Details +--------+ + + + + | Date | Type | Department | Care Team | Description | +--------+ + + + + | 01/28/ | Certified Low Vision Therapist | Surgical Oncology | Cristel Galicia MD | Gastric | | 2019 | | at [facility] [address] | [address] | adenocarcinoma (HCC) | | | | [facility] | [place], [place] | (Primary Dx) | | | | [facility], | [address] | | | | | Building [address] | [phone] | | | | | [place], [place] | | | | | | [address] | | | | | | [phone] | | | +--------+ + + + [...] [address] | | | | | | [place], [place] | | | | | | [address] | | | | | | [phone] | | | | | | | [...] Electronically | | Pathologic | to F [id number]; | | DEPARTMENT | signed by Bonifacio [...] PathologistPathology, | | | | | | [facility] | | | | | | [facility] electronic | | | | | | [...] [facility] | | | Received | Institution: [place] | | DEPARTMENT | | | | [facility] | | OF | | | | [place], [place] | | PATHOLOGY | | | | [id number] Accession | | | | | | Number: | | | | | | [id number] | | | | | | Collection [...] + + + + | [facility] | [address] | [place] [address] | | | PATHOLOGY | [address] | | | + + + + + documented in this encounter Visit Diagnoses + + | Diagnosis | + + | Gastric adenocarcinoma (HCC) - Primary Malignant neoplasm of stomach, unspecified | | site | + + documented in this encounter"
--- OUTSIDE RECORDS SUMMARY | ~2020-02-10 | XMS | Encounter Summary ---
Demographics + + + | Address | [address] | | | [place] [address] | + + + | Home Phone [...] Author | [facility] | [...] + | Matthew Ramirez | ECON | [address] | | | | | [place] | | | | | [address] | | + + + + + Care Team Providers + +------+ + | Care Pipe Threader Name | Role | Phone | + +------+ + | Ashly Rojo PA-C | PCP | | + +------+ + Reason for Visit + +--------+ + | Reason | Onset | Comments | | | Date | | + +--------+ + | Results, Pathology | 01/24/ | | | | 2019 | | + +--------+ + Encounter Details +--------+ + + + + | Date | Type | Department | Care Team | Description | +--------+ + + + + | 01/24/ | Telephone | [facility] | Matthew Shukla MD | Results, Pathology | | 2018 | | GASTROENTEROLOGY | [address] | | | | | [address] [facility] | [place], [place] | | | | | [address] [place], [place] | [address] | | | | | [address] | [phone] | | | | | [phone] | | | +--------+ + + + [...] Telephone Encounter - Nathaly Hatch RN - 01/25/2019 11:50 AM PDTDr. Figueroa sent refe rral to [facility] for surgical consult and patient daughter informed by oncology RN elephone Encounter - Matthew Shulka MD - 01/24/2019 11:49 AM PDTPt was contacted by me today and I informed her that Dr Mendez recommends Surgical Oncology since she is unable to perform the surgery if that is recommen ded due to the extensive involvement of adenocarcinoma throughout the stomach. The patient states that she prefers Surg Onc at [facility] however will await a recommendation fr Dr Antony (Oncology). I asked her to contact the Oncology clinic Friday to schedule an expedited appt with Dr Ron aj. The GI clinic will assist her with the appt on Friday. The pt understands this rec and states that her daughter is helping with scheduling as well . documented in this enc ounter Plan of Treatment Not on filedocumented as of this encounter Visit Diagnoses + + | Diagnosis | + + | Malignant neoplasm of stomach, unspecified location (HCC) - Primary | + + documented in this encounter"
--- OUTSIDE RECORDS SUMMARY | ~2020-02-10 | XMS | Encounter Summary ---
Demographics + + + | Address | [address] | | | [place] [address] | + + + | Home Phone [...] | Author | [facility] | | | and [place] | + + + | Organization | [facility] | | | [...] + | Matthew Ramirez | ECON | [address] | | | | | [place] | | | | | [address] | | + + + + + Care Team Providers + +------+ + | Care Belting And Webbing Inspector Name | Role | Phone | + +------+ + | Ashly Rojo PA-C | PCP | | + +------+ + Reason for Visit + +--------+ + | Reason | Onset | Comments | | | Date | | + +--------+ + | Results, Pathology | 01/20/ | | | | 2019 | | + +--------+ + Encounter Details +--------+ + + + + | Date | Type | Department | Care Team | Description | +--------+ + + + + | 01/20/ | Telephone | [facility] | Matthew Shukla MD | Results, Pathology | | 2018 | | GASTROENTEROLOGY | [address] | | | | | [address] | [place], [place] | | | | | [address] [place], [place] | [address] | | | | | [address] | [phone] | | | | | [phone] | | | +--------+ + + + [...] this encounter Miscellaneous Notes Telephone Encounter - Matthew Shukla MD - 01/20/2019 5:24 PM PDTThe patient was contacted by me today regarding the pathology from her recent upper endoscopy. Gastric mapping revealed adenocarcinoma in multiple areas of the stomach including the antr um, incisura, lesser and greater curvatures, and fundus. I advised her that she should follow-up in the oncology clinic with Dr. Antony and the general surgery clinic with Dr. Mendez as soon as possible to discuss her options for treat ment. The patient stated that she understood the pathology findings and will contact both clinics in the morning. She was given the phone numbers for the oncology clinic in general surgery clinic. I advised her to contact the GI clinic if she has any further questions.Electronically sign ed by Matthew Shukla MD at 01/20/2019 5:29 PM PDTdocumented in this encounter Plan of Treatment Not on filedocumented as of this encounter Visit Diagnoses + + | Diagnosis | + + | Malignant neoplasm of stomach, unspecified location (HCC) - Primary | + + documented in this encounter"
--- OUTSIDE RECORDS SUMMARY | ~2020-02-10 | XMS | Encounter Summary ---
Demographics + + + | Address | [address] | | | [place] [address] | + + + | Home Phone [...] Author | [facility] | | | and [place] | + + + | Organization | [facility] | | [...] + | Matthew Ramirez | ECON | [address] | | | | | [place] | | | | | [address] | | + + + + + Care Team Providers + +------+ + | Care Test Rider Name | Role | Phone | + +------+ + | Ashly Rojo PA-C | PCP | | + +------+ + Encounter Details +--------+ + + + + | Date | Type | Department | Care Team | Description | +--------+ + + + + | 05/12/ | Documentati | [facility] | [place], | | | 2020 | on | [facility] | Luis Richards MD [address] | | | | | ONCOLOGY CLINIC [address] | [address] | | | | | [address] | [address] | | | | | [place] [address] | [address] | | | | | [phone] | | | +--------+ + + + [...]
--- OUTSIDE RECORDS SUMMARY | ~2020-02-10 | XMS | Encounter Summary ---
Demographics + + + | Address | [address] | | | [place] [address] | + + + | Home Phone [...] + | Author | [facility] | | | and [place] | + + + | Organization | [facility] | | | [...] + | Matthew Ramirez | ECON | [address] | | | | | [place] | | | | | [address] | | + + + + + Care Team Providers + +------+ + | Care Clinical Registered Nurse Name | Role | Phone | [...] [address] | | | | | | [place], [place] | | | | | | [address] | | | | | | [phone] | | | +--------+ + + + [...]
--- OUTSIDE RECORDS SUMMARY | ~2020-02-10 | XMS | Encounter Summary ---
Demographics + + + | Address | [address] | | | [place] [address] | + + + | Home Phone [...] Team Providers + +------+ + | Care Composite Bond Technician Name | Role | Phone | + +------+ + | Long Copeland MD | PCP | | + +------+ + Reason for Visit + +--------+ + | Reason | Onset | Comments | | | Date | | + +--------+ + | Care Coordination | 06/22/ | call back requested | | | 2020 | | + +--------+ + Encounter Details +--------+ + + + + | Date | Type | Department | Care Team | Description | +--------+ + + + + | 06/22/ | Telephone | [facility] | Rodriguez Bower MD | Care Coordination | | 2020 | | Clinics at S | [address] | (call back requested | | | | [facility] [address] | [facility] [place] | ) | | | | [address] | [address] | | | | | Health and Healing, | [phone] | | | | | Building [address] | | | | | | [place], [place] | | | | | | [address] | | | | | | [phone] | | | +--------+ + + + [...] Telephone Encounter - Cassy Mclain RN - 06/22/2019 1:04 PM AMILCARI returned call to Ashly and she reports that she had emergency gastric surgery recently in [place] in [place] - report is being sent to us for Dr. Bower's review. She was unable to give me much informa tion on what the surgery entailed. She continues to have severe abdominal pain and I advised that she contact surgeon's office or PCP DAVID. She states she has appt with PCP tomorrow at which time she will bring this up for discussion. I told her if pain becomes intolerable, p resent to ED prior to PCP visit and she states understanding. She is following up with Dr. Lamin pulido for breast cancer mgmt. She will call if she wants further appts here to see Dr. Roger kuo but at this time pain plus distance from [place] are prohibitive.Electronically minnie d by Cassy Mclain RN at 06/22/2019 1:19 PM PSTTelephone Encounter - Lizet Carbone - 06/22 12:21 PM PSTVm left at 11:49am on 06/22/19 Pt asks for a call back from YASMEEN Ken, she has her card as was told to call this number is she has a question. RNC documented in this encoun ter Plan of Treatment +--------+ + + + + | Date | Type | Specialty | Care Team | Description | +--------+ + + + + | 05/08/ | Telephone-S | Hematology & | Rodriguez Bower MD | | 2019 | cheduled | Oncology | [address] | | | | | | [place], [place] | | | | | | [address] | | | | | | [phone] | | | | | | | | +--------+ + + + + documented as of this encounter Visit Diagnoses Not on filedocumented in this encounter"
--- OUTSIDE RECORDS SUMMARY | ~2020-02-10 | XMS | Encounter Summary ---
Demographics + + + | Address | [address] | | | [place] [address] | + + + | Home Phone [...] + | Author | [facility] | | | and [place] | + + + | Organization | [facility] | | | [...] + | Matthew Ramirez | ECON | [address] | | | | | [place] | | | | | [address] | | + + + + + Care Team Providers + +------+ + | Care Frame Gate Mortiser Operator Name | Role | Phone | [...] | | | [address] [place] | [place] [address] | | | | | [place] [address] | | | | | | [phone] | | | +--------+ + + + [...]
--- OUTSIDE RECORDS SUMMARY | ~2020-02-10 | XMS | Encounter Summary ---
Demographics + + + | Address | [address] | | | [place] [address] | + + + | Home Phone [...] | Author | [facility] | | | and [place] | + + + | Organization | [facility] | | | and [...] + | Matthew Ramirez | ECON | [address] | | | | | [place] | | | | | [address] | | + + + + + Care Team Providers + +------+ + | Care Shank Sander Name | Role | Phone | + +------+ + | Ashly Rojo PA-C | PCP | | + +------+ + Reason for Visit + +--------+ + | Reason | Onset | Comments | | | Date | | + +--------+ + | Family/caregiver | 01/25/ | | | Concerns | 2019 | | + +--------+ + Encounter Details +--------+ + + + + | Date | Type | Department | Care Team | Description | +--------+ + + + + | 01/25/ | Telephone | [facility] | [place], | Family/caregiver | | 2019 | | [facility] | Luis Richards MD [address] | Concerns | | | | ONCOLOGY CLINIC [address] | [facility] | | | | | [address] | [address] [place], [place] | | | | | [place] [address] | [address] | | | | | [phone] | | | +--------+ + + + [...] this encounter Miscellaneous Notes Telephone Encounter - Cayla Schwartz RN - 01/25/2019 11:01 AM PDTDaughter Nella weller med of direction from Dr Antony. Electronically signed by Cayla Schwartz RN at 11:01 AM PDTTelephone Encounter - Luis Antony MD - 01/25/2019 10:37 AM P DTExtended T/C with Dr. Clinton Packer at [facility] surgical oncology who is willing to see earnest trish for consultation. He suggested that he may recommend staging laparotomy first, with placement of a feeding tu be and port-a-cath, and potentially chemotherapy first, before definitive surgery. Referral to Clinton Packer at [facility] placed in [facility]. elephone Encounter - Cayla Schwartz RN - 01/25 9:09 AM PDTDaughter contacted and notified that this information will be passed on to Dr Antony now. Daughter states she prefers [facility] if patient needs to be referred out fo care. Telephone encounter from Dr Shukla of [facility]/20/19 [facility] for review by Dr Antony. Adryan herr. el ephone Encounter - Wu Stanley - 01/25/2019 8:05 AM PDTPt daughter Nella cyn ramirez Gayla called pt over the weekend and told her very vaguely that her cancer was not treata ble in [place] and she would need to be ref'd out. Nella would like better clarification, says her mother is very upset and confused and if she is going to be ref'd out where will she be going [phone] (Nella) Nella further states talking to her mother about this won't be helpful a s she won't remember. Thank you documented in this encou nter Plan of Treatment Not on filedocumented as of this encounter Visit Diagnoses Not on filedocumented in this encounter"
--- OUTSIDE RECORDS SUMMARY | ~2020-02-10 | XMS | Encounter Summary ---
Demographics + + + | Address | [address] | | | [place] [address] | + + + | Home Phone [...] Author | [facility] | | | and [place] | + + + | Organization | [facility] | | | and [...] + | Matthew Ramirez | ECON | [address] | | | | | [place] | | | | | [address] | | + + + + + Care Team Providers + +------+ + | Care Marine Pipefitter Name | Role | Phone | + +------+ + | Ashly Rojo PA-C | PCP | | + +------+ + Reason for Visit + +--------+ + | Reason | Onset | Comments | | | Date | | + +--------+ + | Sore Throat | 12/18/ | | | | 2019 | | + +--------+ + Encounter Details +--------+ + + + + | Date | Type | Department | Care Team | Description | +--------+ + + + + | 12/18/ | Telephone | [facility] | Matthew Shukla MD | Sore Throat | | 2019 | | GASTROENTEROLOGY | [address] [facility] | | | | | [address] [facility] | [place], [place] | | | | | [address] [place], [place] | [address] | | | | | [address] | [phone] | | | | | [phone] | | | +--------+ + + + [...] this encounter Miscellaneous Notes Telephone Encounter - Rachael Georges RN - 12/18/2018 11:40 AM PDTPatient calls gloria galvez she had egd yesterday by Dr Shukla. She feels as though her throat is sore and swollen. S he did eat sausage and pancakes for breakfast. She is swallowing without difficulty. States her neighbor came over and told her that her throat was not sore after her upper endoscopy and prompted patient to call our office. Discussed with patient that her throat is sprayed with a numbing medication and the endoscope can also cause some irritation. Patient will tr y sucking on Cepacol throat lozenges to ease her sore throat. If symptoms worsen she will c all GI provider specimen preparation assistant who is Dr Matthew Shukla. documented in this encounter Plan of Treatment Not on filedocumented as of this encounter Visit Diagnoses Not on filedocumented in this encounter"
--- OUTSIDE RECORDS SUMMARY | ~2020-02-10 | XMS | Encounter Summary ---
Demographics + + + | Address | [address] | | | [place] [address] | + + + | Home Phone [...] Author | [facility] | | [...] + | Matthew Ramirez | ECON | [address] | | | | | [place] | | | | | [address] | | + + + + + Care Team Providers + +------+ + | Care Border Machine Operator Name | Role | Phone [...] Specialty | Surgery / | Diagnoses | Gayla, | [facility] | | | Services | General | 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 | General | | | Required | Surgery | adenocarcino | [address] | Surgery [address] | | | | | [address]argav ([facility]) | [address] | | | | | | [place], [place] | [place], | | | | | | [address] | [place] [address] | | | | | | Phone: | Phone: | | | | | | [phone] | [phone] | | | | | | Fax: | Fax: | | | | | | [phone] | [phone] | +--------+ + + + + + Encounter Details +--------+---------+ + + + | Date | Type | Department | Care Team | Description | +--------+---------+ + + + | 01/07/ | Office | [facility] | Ana Mendez MD | Gastric | | 2019 | Visit | SURGERY [address] | [address] [facility] | adenocarcinoma (HCC) | | | | [facility] [place] | [place] [address] | (Primary Dx) | | | | [address] | [phone] | | | | | [phone] | | | +--------+---------+ + + + [...] Risk Tool (ORT): Total Score 1 (01/07/19 5626) Interpretation of Total Score: 0 to 3 [...] adenoma. COMMENT: A -- As part of [employer]' Quality Improvement Program, this portion of the case h as been reviewed by another member of our pathology staff with subspecialty training in lisa rointestinal pathology. Results called to Dr. Shukla office ([place]) 12/24/18 10:15 AM. Discussed results on specimen A with Dr. Shukla 2:15 PM. LJA:smn:C2NR CT Chest abdomen pelvis [...] Impalnt Revision; Surgeon: Jose Randall DPM; Location: [facility] RONJODY SURGERY BLADDER REPAIR 1971 BLADDER SUSPENSION 2007 CARPAL TUNNEL RELEASE Bilateral CATARACT REMOVAL Right 03/2016 CHOLECYSTECTOMY, LAPAROSCOPIC 1997 COLECTOMY 2004 recurrent diverticulitis COLONOSCOPY 01/2018 One diminutive polyp COLONOSCOPY N/A 12/17/2018 Procedure: COLONOSCOPY; Surgeon: Matthew Shukla MD; Location: [facility] FINGER SURGERY Left 2007 Thumb surgery for osteoarthritis FINGER SURGERY Left 11/2008 FINGER SURGERY Right 04/2012 Thumb surgery HAMMER TOE SURGERY Right 03/06/2017 Procedure: Correction Hammer Toes 2nd , 3rd, and 4th Toes; Surgeon: ANNIE Cuevas; Location: [facility] DIONIHI SURGERY HAMMER TOE SURGERY Left 07/04/2017 Procedure: CORRECTION HAMMERTOES 2, 3, 4; Surgeon: Jose Randall DPM; [facility] HAMMER TOE SURGERY Left 2017 x3 KNEE ARTHROSCOPY Right 2001 PUBOVAGINAL SLING 10/16/2010 TVT Retropubic sling at [facility] SIGMOID COLECTOMY 12/20/2002 Franck Davis MD [facility] 1996 TONSILLECTOMY AND ADENOIDECTOMY 1948 TOTAL KNEE ARTHROPLASTY Right 07/11/2011 TUBAL LIGATION 1976 UPPER GASTROINTESTINAL ENDOSCOPY N/A 12/17/2018 Procedure: EGD; Surgeon: Matthew Shukla MD; Location: [facility] URETHROPEXY 07/11/2010 Revision [...] MCG tablet Take 800 mcg by mouth. Ubsawoszwsu-Aaywlcvzh-Hyv C-Mn (GLUCOSAMINE CHONDR 500 COMPLEX) CAPS 2 [...] has put in an urgent referral to [facility] erologist for a repeat EGD [...] repeat biopsies and EUS. Ana Mendez MD PCP: Ashly Rojo PA-C Portions of this chart may have been created with [employer] voice recognition software. Occasi onal wrong-word or [...]
--- OUTSIDE RECORDS SUMMARY | ~2020-02-10 | XMS | Encounter Summary ---
Demographics + + + | Address | [address] | | | [place] [address] | + + + | Home Phone [...] Author | [facility] | | | and [place] | + + + | Organization | [facility] | | | [...] + | Matthew Ramirez | ECON | [address] | | | | | [place] | | | | | [address] | | + + + + + Care Team Providers + +------+ + | Care Radio Talk Show Host Name | Role | Phone | + +------+ + PCP | Unavailable | + +------+ + Encounter Details +--------+ + + + + | Date | Type | Department | Care Team | Description | +--------+ + + + + | 06/27/ | Hospital | [facility] | | | | 2004 | Encounter | MED CTR XRAY [address] | | | | | | [address] | | | | | | [place] [address] | | | | | | [phone] | | | +--------+ + + + [...]
--- OUTSIDE RECORDS SUMMARY | ~2020-02-10 | XMS | Encounter Summary ---
Demographics + + + | Address | [address] | | | [place] [address] | + + + | Home Phone [...] Providers + +------+ + | Care Customer Service Operator Name | Role | Phone | [...] | | sphincter | MD Gillian | [place] | | | | | deficiency | [address] | [place] | | | | | (ISD) | [address] | [address] | | | | | Urinary | Rd | floor | | | | | stress | [place], [place] | [place], [place] | | | | | incontinence | [address] | [address] | | | | | Procedures | Phone: | Phone: | | | | | REQUEST TO | [phone] | [phone] | | | | | SURGERY | Fax: | Fax: | | | | | PIGMENT MIXER | [phone] | [phone] | | | | | [place] | | | | | | | CYSTOURETHRO | | | | | | | [place] | | | | | | [...] | | | | | | | [place] | | | | | | | [address] | | | | | | | [address] | | | | | | | floor | | | | | | | [place], [place] | | | | | | | [address] | | | | | | | Phone: | | | | | | | [phone] | | | | | | | Fax: | | | | | | | [phone] | +--------+--------+ + + + + Encounter Details +--------+---------+ + + + | Date | Type | Department | Care Team | Description | +--------+---------+ + + + | 10/03/ | Office [facility] | Avis Rios | 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 Sprague and agree with e findings and plan as documented in [...] for incontinence. Dr. Zhou discussed with Ms Wilkinsonelva that there may be few treatment options at this point . The past medical history, surgical history, family history, social history, 10-point review of systems and current medications were reviewed on the patient intake questionnaire provid ed at today s visit to be found in the scanned documents in [facility]. They have also been ent ered into the [facility] database. PHYSICAL EXAM BP 160/90 [...] see scanned report in Epic In summary: RESIDENTIAL 368cc with no DO; MUCP 10 cm [...] October 26 with preop October 25. TVT 25915 Patient seen and discussed with Dr. Rios. Christiana Cullen RN - 10/03/2010 11:26 AM PDTUrine dipstick ordered and pt voided 295 mL of urine. Pt prepped with betadine. 14 israeli straight cath through pts external urethra for 15 mL of clear yell ow urine (PVR). T-DOC air charged catheters placed in urethra and vagina. Verbal orders per Dr. Ernandez, read back performed. documented in this enco unter Miscellaneous Notes Scan - Other, Faculty - 10/19/2010 10:01 AM PDT can - Other, Faculty - 10/15/2010 10:52 AM PDT can - Other, Faculty - 10/03/2010 12:00 AM PDT can - Other, Faculty - 10/03/2010 12:00 AM PDTAssociated Order(s): LAB REPORTS documented in this encou nter Plan of Treatment +--------+ + + + + | Date | Type | Specialty | Care Team | Description | +--------+ + + + + | 05/08/ | Telephone-S | Hematology & | Rodriguez Bower MD | | | 2020 | cheduled | Oncology | [address] | | | | | | [place], [place] | | | | | | [address] | | | | | | [phone] | | | | | | | | +--------+ + + + + documented as of this encounter Procedures + +--------+ + + + | Procedure Name | Priori | Date/Time | Associated Diagnosis | Comments | | | ty | | | | + +--------+ + + + | [place] CYSTOMETROGRAM | Routin | 11/01/2010 | Intrinsic | | | W/HARDWOOD FLOOR SANDER&UP - GLOBAL | e | 10:19 PM | sphincter deficiency | | | | | PDT | (ISD) Urinary | | | | | | stress incontinence | | + +--------+ + + + | [place] INTRAABDOMINAL | Routin | 11/01/2010 | Intrinsic | | | VOIDING PRESSURE | e | 10:19 PM | sphincter deficiency | | | STUDY,AP,GLOBAL | | PDT | (ISD) Urinary | | | | | | stress incontinence | | + +--------+ + + + | [place] | Routin | 11/01/2010 | Intrinsic | | | UROFLOWMETRY,COMPLEX | e | 10:19 PM | sphincter deficiency | | | ,GLOBAL | | PDT | (ISD) Urinary | | | | | | stress incontinence | | + +--------+ + + + | [place] CYSTOMETROGRAM, | Routin | 11/01/2010 | Intrinsic | | | COMPLEX, GLOBAL | e | 10:19 PM | sphincter deficiency | | | | | PDT | (ISD) Urinary | | | | | | stress incontinence | | + +--------+ + + + | [place] INTRAABDOMINAL | Routin | 11/01/2010 | Intrinsic [...] | + +--------+ + + + | [place] NURSE 2 | Routin | 10/03/2010 | [...] [facility] | | | | | | ISABELLA, POINT | | | | | | OF CARE | | | | | | TESTS | | + + + + + + | APPEARANCE | clear | | [facility] - | | | (UA DIP), | | | [facility] | | | POC | | | ISABELLA, POINT | | | | | | OF CARE | | | | | | TESTS | | + + + + + + | LEUKOCYTES | negative | Negative | [facility] - | | | (UA DIP), | | | [facility] | | | POC | | | [place], POINT | | | | | | OF CARE | | | | | | TESTS | | + + + + + + | NITRITES | negative | Negative | [facility] - | | | (UA DIP), | | | [facility] | | | POC | | | [place], POINT | | | | | | OF CARE | | | | | | TESTS | | + + + + + + | UROBILINOGE | 0.2 | 0.2 JERICHO | [facility] - | | | N (UA DIP), | | UNITS | [facility] | | | POC | | | [place], POINT | | | | | | OF CARE | | | | | | TESTS | | + + + + + + | PROTEIN (UA | negative | Negative to | [facility] - | | | DIP), POC | | Trace mg/dL | [facility] | | | | | | [place], POINT | | | | | | OF CARE | | | | | | TESTS | | + + + + + + | PH (UA | 5.0 | 5 - 8 | [facility] - | | | DIP), POC | | | [facility] | | | | | | [place], POINT | | | | | | OF CARE | | | | | | TESTS | | + + + + + + | BLOOD (UA | negative | Negative | [facility] - | | | DIP), POC | | | [facility] | | | | | | H[place], POINT | | | | | | OF CARE | | | | | | TESTS | | + + + + + + | SPECIFIC | 1.010 | 1.005 - 1.03 | [facility] - | | | GRAVITY (UA | | | [facility] | | | DIP), POC | | | ISABELLA, POINT | | | | | | OF CARE | | | | | | TESTS | | + + + + + + | KETONES (UA | negative | Negative mg/dL | [facility] - | | | DIP), POC | | | [facility] | | | | | | ISABELLA, POINT | | | | | | OF CARE | | | | | | TESTS | | + + + + + + | BILIRUBIN | negative | Negative | [facility] - | | | (UA DIP), | | | [facility] | | | POC | | | [place], POINT | | | | | | [...] [place] | [address] | [place], [place] | | | DANISHA MASON OF CARE | [facility] | [address] | | | TESTS | | | [...]
--- OUTSIDE RECORDS SUMMARY | ~2020-02-10 | XMS | Encounter Summary ---
Demographics + + + | Address | [address] | | | [place] [address] | + + + | Home Phone [...] Providers + +------+ + | Care Pipe Layer Helper Name | Role | Phone | [...] | | | | | Procedures | [place], [place] | [facility] and | | | | | CONSULT TO | [address] | Healing, | | | | | ADULT OUTPT | Phone: | [address] | | | | | SUPPORTIVE | [phone] | [place], [place] | | | | | ONCOLOGY/PAL | Fax: | [address] | | | | | LIATIVE | [phone] | Phone: | | | | | MEDICINE | | [phone] | | | | | | | Fax: | | | | | | | [phone] | + +---------+ + + + + Consultation (Routine) +--------+--------+ + + + + | Status | Reason | Specialty | Diagnoses / | Referred By | Referred To | | | | | Procedures | Contact | Contact | +--------+--------+ + + + + | Closed | | Surgery | Diagnoses | Mitri, | Gs General | | | | | Metastatic | Rodriguez Hnog MD | Surg Ch[facility]2 | | | | | breast | [address] | [address] | | | | | cancer (HCC) | Ave | [address] Center | | | | | Procedures | [facility] [place] | for Health | | | | | CONSULT TO | [address] | and Healing, | | | | | | Phone: | [address] | | | | | GASTROENTERO | [phone] | [place], [place] | | | | | LOGY | Fax: | [address] | | | | | | [phone] | Phone: | | | | | | | [phone] | | | | | | | Fax: | | | | | | | [phone] | +--------+--------+ + + + + Reason [...] | | | [address] | [place], [place] | | | | | [address] [place] for | [address] | | | | | Health and Healing, | [phone] | | | | | [address] | | | | | | [place], [place] | | | | | | [address] | | | | | | [phone] | | | +--------+ + + + [...] this encounter Miscellaneous Notes Telephone Encounter - Sherry Sanchez RN - 10/15/2019 9:17 AM PDTReceived call from Tata hardy, the patient's daughter. She states that her mother has been admitted to [facility] and that she was unable to get information on what testing they had performed. She sta kedar she relayed to the admitting doctor the imaging and tests that Dr. Bower had suggested h er mother receive. Nella would like [facility] to follow up with [facility]. A chart review reveals that the attending MD at [facility] called the on-call MD at [facility] last night to discuss care coordination, and a message was sent to Dr. Bower to call [facility]. Dr. Bower and the hospital were able to connect and the patient will remain admitted until she is stable to be discharged. Discussed with Nella the possible delay in Palliative care contacting her due to increased v olume and staff availability. Nella understands and looks forward to SW/Palliative support wh en they are available. elephone Encounter - Lizet Carbone - 10/15/2019 8:51 AM PDTLisa calling in wanting to speak to video poker floorman. PAS transferred to RN. elephone Encounter - Sherry Sanchez RN - 10/14/2019 4:13 PM PDTReceived a phone call from Dr. Jennifer triplett stating that the patient was going to the ED. This RN called the [facility]'s ED and gave a report to Ramona, labor/excavator. Relayed Dr. Bower's suggestion that the patie nt should receive an abd CT, KUB and blood work. Discussed the patient's history and reasons for coming to the Ed, Ramona states that the pat ient has already arrived. ddendum Note - Sherry Sanchez RN - 10/14/2019 2:30 PM PDT Addended by: NIKO SANCHEZ on: 10/14/2019 02:30 PM Modules accepted: Orders elephone Encount er - Sherry Sanchez RN - 10/14/2019 2:00 PM PDTCalled the patient and her daughter Nella back. Nella is feeling frustrated that the patient's pain is not managed. She was told by her loca l surgeon that if the patient needed any more surgical treatment that they would need to com e to [facility] as there wasn't anything more he could do for her. The patient's pain is usually v angel high, from her abdominals to her rectum, and she refuses to got to the ED for a work up. She requests better pain management system to keep her mother more comfortable. Gabriela video poker floorman spoke to the patient and her daughter Nella yesterday, and the patient was directed to the ED for KUB, abd CT and lab work but has refused to go. She took two tramado l last night at one time and states she felt better today, but according to Nella, as the day wears on her pain gets worse and worse. Reiterated the plan that the patient should go to [facility] ED for the suggested tests. Nella understands and will speak to her mother more about it. We discussed the options available to the patient and family, including palliative care and social work, and that the challenge with medications is that opiods can slow a gut down far ther, possibly contributing to gastric slowing and more pain. This is why her team suggested that she get evaluated in her local ED with a KUB, abd CT and labs, to rule out any mechani kirk obstructions. Nella states that they have been referred to a gastrologist at [facility], though initially they w ere told that since her mother has breast cancer her gastric issues should be managed by her oncologist. She would like more information on the plan of care and state that at their las t office visit her mother "didn't hear" Dr. Bower's assessment of her cancer. They have cont acted their local MD, Dr. Antony, who expressed that he would order the November 2019 PET s can "DAVID" and Nella requests a telephone visit when the PET is ordered and results are in. After discussing the difficulties that the family is facing with her mother's illness, this RN suggested a palliative care referral and to get SW involved. Nella asks that this RN send a MyChart with this information so she can have it in one location. Routing to teams for follow up and recommendations. elephone Encounter - Aury Rose - 10/14/2019 12:37 P M PDTPatient's daughter left voicemail at 10:57am stating that patient is feeling slightly b davide, but won't go to the ED. MARKEL called Nella back. Nella states that patient took 2 Tramidol last night, which seemed to ease the pain, so patient still in a lot of pain, but not needing to go to ED, pain is twing es now, not constant. Nella states pain is from top of stomach through to the rectum, states patient would say it is a 10+ and "hurts as bad as childbirth, but without the baby at the end". Nella states that patient is never not in severe pain, that patient is not managed at all with her pain medic ation, and needs to have something done where she actually has pain medication. MARKEL messaged Triage, who unable to take call, but will call Nella back. Nella's phone dropped call while on hold, so PAS called back and advised video poker floorman would be calling her back from a blocked number, Nella very appreciative. Ph. [phone] Routing to Triage elephone Encounter - Gabriela Delong, RN - 10/13/2019 5:01 PM PDTCall from daughter to report that patient is exp eriencing 10 lower abd pain. Patient has required ED visit/hospital admission every 4-6 w eeks since the beginning of the year. Per daughter during the last admission in September the fami ly was told that there was nothing further that could be done for her locally and that if sh e required recurrent hospitalization she should come to [place] to [facility] since her oncologis t is here. 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 This info rmation was relayed by Dr Adorno local surgeon per daughter. Daughter reports patient is experiencing n/v. Patient is taking miralax daily and is having BMs. Daughter is unsure of frequency but patient has stated this is bordering on "too many" BMs. Daughter states this has become too much and that she is about to put patient in an ambulan ce to [place]. Patient is resistant to going back to the hospital as she does not want to l eave her at home. Patient's has advanced dementia and is not able to care fo r himself. Daughter is the primary CG for the both her mother and father. Informed daughter this RN will consult with team and call back. Spoke with Dr Bower and Marisol Lentz. The team determined that the best way to proceed is to have patient go to local ED ([facility] Patient will likely need KU B, abd CT and blood work. It would be more reasonable for patient to have initial work up lo perico to determine if there would be any benefit to traveling to [facility]. If it is determined t hat this could be beneficial patient could be transferred to [facility]. Call back to daughter to inform of above recommendations. Daughter states she spoke with [facility] while waiting for call back and patient stated she wants to tough it out for tonight. Patient is refusing to go to ED currently. Daughter states patient may change her mind at so me point during the night if pain increases. Informed daughter this RN will call ED with rep ort just in case patient decides to go in. Gave daughter physician consult line number and e xplained intended purpose. Also gave daughter the initial work up recommended by Dr Bower (K UB, CT, blood work). Called report to charge nurse at [facility] ED. Informed that patient may come in but is currently not planning to come in. Gave physician consult line number and shared tentative plan. eleph one Encounter - Mike Cadet - 10/13/2019 4:09 PM PDT What are your symptoms? Are you having any pain?: Stomach and abdomen pain. Local ER's w ill not see the patient because "there's nothing they can do for her" Severity scale 0-10 (or mild/moderate/severe)?: 10/10, "worst pain she's ever been in in her life" How long have you had these symptoms?: ongoing, but not getting better Action taken: Patient placed on hold - Triage/RNC paged (name): Gabriela ddendum Note - Uriel Malik RN - 10/05/2019 4:32 PM PDT Addended by: URIEL MALIK on: 10/05/2019 04:32 PM Modules accepted: Orders elephone Encounter - Uriel Malik RN - 10/05/2019 4:31 PM PDTReferral to GI placed per Dr. Bower.Electron ically signed by Uriel Malik RN at 10/05/2019 4:32 PM PDTTelephone Encounter - Uriel Malik RN - 10/05/2019 3:44 PM PDTRegarding upcoming appts: pt due for PET scan and provi aura visit in early/mid-November. I called pt's daughter and she reports that Ashly get scans at [facility] - Dr. Figueroa orders the PET scans so pt doesn't need orders to be sent. Daughter reports that Ashly has been hospitalized again for bowel obstruction and is genera lly hospitalized every 6-7 weeks for this. She'd like Dr. Bower's input on this - is there a nother specialist that Ashly should see for this? Message sent to Dr. Bower. [facility] will follow up pending provider response. elephone Encounter - Aury Rose - 10/05/2019 2:36 PM PDTPatient's daughter Nella calling in, patient will be out of medication Tramodol after tomorrows mornings dose, would like to make sure their pharmacy put in the order for it? PAS reassured Nella that pharmacy put in the request already and being worked on. Nella very appreciative and asks if there is anyway she can pick it up early next time? PAS advised that usually it is on the insurance side that dictates timing, but that PAS would fo rward request to team if possible. Routing to RNC as FYI elephone Encounter - Preeti Mireles MA - 10/05/2019 1:28 PM PDT Last appointment with Rodriguez Bower [...] copied below: Date and Time Department Ordering/Authorizing 08/24/2019 2:[address] [facility] Rodriguez Bower MD Outpatient Medication Detail Disp Refills traMADoL 50 mg oral tablet 90 tablet 0 Sig: Take 1 tablet by mouth every eight hours as needed for moderate pain. Indications: osvaldo n Sent to pharmacy as: traMADoL 50 mg tablet (ULTRAM) Class: eRx Route: oral Order: [id number] E-Prescribing Status: Receipt confirmed by pharmacy (08/24/2019 2:27 PM PDT) Per [facility] policy, routing encounter to [facility] for review and approval. documented in this encounter Plan of Treatment +--------+ + + + + | Date | Type | Specialty | Care Team | Description | +--------+ + + + + | 05/08/ | Telephone-S | Hematology & | Rodriguez Bower MD | | | 2019 | suyapa | Oncology | [address] | | | | | | [place], [place] | | | | | | [address] | | | | | | [phone] | | | | | | | | +--------+ + + + + documented as of this encounter Visit Diagnoses + + | Diagnosis | + + | Metastatic breast cancer (HCC) - Primary | + + documented in this encounter
--- OUTSIDE RECORDS SUMMARY | ~2020-02-10 | XMS | Encounter Summary ---
Demographics + + + | Address | [address] | | | [place] [address] | + + + | Home Phone [...] Team Providers + +------+ + | Care Phlebotomy Manager Name | Role | Phone | [...] + + | 08/15/ | Refill | [facility] | Rodriguez Bower MD | Refill Request | | 2020 | | Clinics at S | [address] | | | | | [address] | [place], [place] | | | | | [address] [place] for | [address] | | | | | Health and Healing, | [phone] | | | | | [facility] [address] | | | | | | [place], [place] | | | | | | [address] | | | | | | [phone] | | | +--------+--------+ + + + [...] Miscellaneous Notes Telephone Encounter - Yao Mckeon GUSTABO - 08/16/2019 3:36 PM PDT Last appointment with Rodriguez Bower MD was on 07/29/2019. Next appointment with Rodriguez Bower MD is scheduled on NO FUTURE APPOINTMENT. Last LIP progress note reviewed. Is there documentation to indicate that medication being r equested has been changed or discontinued? No Allergy list reviewed--Is the medication being requested on the patient's current allergy l ist? No Previous Prescription Details copied below: Date and Time Department Ordering/Authorizing 08/16/2019 2:49 PM [facility] Rodriguez Bower MD Outpatient Medication Detail Disp Refills traMADoL 50 mg oral tablet 90 tablet 0 Sig: Take 1 tablet by mouth every eight hours as needed for moderate pain. Indications: osvaldo n Sent to pharmacy as: traMADoL 50 mg tablet (ULTRAM) Class: eRx Route: oral Order: [id number] E-Prescribing Status: Receipt confirmed by pharmacy (08/16/2019 2:49 PM PDT) Start Date Aug 16, 2019 Per [facility] policy, routing encounter to [facility] for review and approval documented in this encounter Plan of Treatment +--------+ + + + + | Date | Type | Specialty | Care Team | Description | +--------+ + + + + | 05/08/ | Telephone-S | Hematology & | Rodriguez Bower MD | | 2019 | cheduled | Oncology | [address] | | | | | | [place], [place] | | | | | | [address] | | | | | | [phone] | | | | | | | | +--------+ + + + + documented as of this encounter Visit Diagnoses Not on filedocumented in this encounter"
--- OUTSIDE RECORDS SUMMARY | ~2020-02-10 | XMS | Encounter Summary ---
Demographics + + + | Address | [address] | | | [place] [address] | + + + | Home Phone [...] + | Author | [facility] | | | and [...] + | Matthew Gomez | ECON | [address] | | | | | [place] | | | | | [address] | | + + + + + Care Team Providers + +------+ + | Care Engine Test Cell Technician Name | Role | [...] | | | | [K31.9] | | [address] Phone: | | | | | Procedures | | [phone] | | | | | [place] | | Fax: | | | | | ESOPHAGOGAST | | [phone] | | | | | RODUODENOSCO | [...] + + | 01/13/ | Hospital | [facility] | Sukumar Stevenson MD | 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 | Encounter | [facility] | [address] [place] | of overlapping sites | | | | INTRA OP [address] | [address] [place] | of stomach (HCC) | | | | [address] [place] | [address] | | | | | [address] | | | | | | [phone] | | | +--------+ + + + [...] Impalnt Revision; Surgeon: Jose Randall DPM; Location: [facility] DIONICIO RONDE SURGERY BLADDER REPAIR 1971 BLADDER SUSPENSION 2007 CARPAL TUNNEL RELEASE Bilateral CATARACT REMOVAL Right 03/2016 CHOLECYSTECTOMY, LAPAROSCOPIC 1997 COLECTOMY 2004 recurrent diverticulitis COLONOSCOPY 01/2018 One diminutive polyp COLONOSCOPY N/A 12/17/2018 Procedure: COLONOSCOPY; Surgeon: Matthew San MD; Location: [facility] MEDICAL PROCEDURE UNIT FINGER SURGERY Left 2007 Thumb surgery for osteoarthritis FINGER SURGERY Left 11/2008 FINGER SURGERY Right 04/2012 Thumb surgery HAMMER TOE SURGERY Right 03/06/2017 Procedure: Correction Hammer Toes 2nd , 3rd, and 4th Toes; Surgeon: ANNIE Cuevas; Location: [facility] DIONICIO RONDE SURGERY HAMMER TOE SURGERY Left 07/04/2017 Procedure: CORRECTION HAMMERTOES 2, 3, 4; Surgeon: Jose Randall DPM; Location: [facility] DIONICIO RONJODY SURGERY HAMMER TOE SURGERY Left 2017 x3 KNEE ARTHROSCOPY Right 2001 PUBOVAGINAL SLING 10/16/2010 TVT Retropubic sling at [facility] SIGMOID COLECTOMY 12/20/2002 Franck Davis MD - [facility] AND BSO 1996 TONSILLECTOMY AND ADENOIDECTOMY 1948 TOTAL KNEE ARTHROPLASTY Right 07/11/2011 TUBAL LIGATION 1976 UPPER GASTROINTESTINAL ENDOSCOPY N/A 12/17/2018 Procedure: EGD; Surgeon: Matthew San MD; Location: [facility] MEDICAL PROCEDURE UNIT URETHROPEXY 07/11/2010 [...] has been changed since signin Order Audit [place] ALPRAZolam (XANAX) 0.25 mg tablet (Taking) Take [...] has been changed since signin Order Audit [place] fish oil 1,000 mg capsule (Taking) Take [...] held with the patien t or patient's benefits representative prior to the procedure. Benefits and [...] | [facility] | | ASHLY GOMEZ | [place] | | : 1940 AGE: 78 years SEX: Female | MEDICAL [facility]ENTER | | | LABORATORY | | Acct: [id number] Location: | CERNER | | [facility] MPINTR; [facility] MEDICAL PROCEDURE UNIT POOL; [facility] | | | MEDICAL PROCEDURE UNIT POOL | | | Case #: [id number] Ordering: | | | SUKUMAR STEVENSON MD Client: [facility] | | | [facility] Copy To: | | | Printed: 01/20/2019 [...] by: ANNABELLE FULLER MDVerify Date: 01/20/2019 09:40 [facility] | | | [facility] [address] | | | SURGICAL PATHOLOGY FINAL REPORTCollected: [...] appropriately.As a part of our air quality consultant | | | policy, this case has [...] and their performance characteristics determined by [facility]. This test is used for clinical | | | purposes. It should not be regarded as investigational or for | | | research. [facility] is certified under the Clinical | | | Laboratory Improvement Amendments of 1988 (CLIA) as qualified to | | | perform high complexity clinical laboratory testing. | | + + + + + + + + | Performing | Address | City/State/Zipcode | Phone Number | | Organization | | | | + + + + + | [facility] | [address] | [place] [address] | | | [facility] | | | | | [place] | | | | + + + + + TEENA Givens (01/13/2019 11:39 AM PDT) + + | Specimen | + + | | + + + + + | Narrative | Performed At | + + + | [facility] | [place] | | [facility] | PROVATION | | CenterGI | | | Patient Name: Ashly Gomez Procedure | | | Date: 01/13/2019 11:39 AMMRN: [id number] | | | of : 1940 | [...] Dr. SanReferring: | | | MATTHEW SAN, SHANAedicines: Monitored | | | Anesthesia CareComplications: No [...] | TRACEMASTER | | Duration:172 msP Horizontal [place]:28 degP Front [place]:60 degQ Onset:512 | | | msQRSD Interval:136 msQT Interval:448 msQTcB:477 msQTcF:467 msQRS | | | Horizontal [place]:150 degQRS [place]:-35 degI-40 Horizontal [place]:34 degI-40 | | | Front [place]:74 degT-40 Horizontal [place]:151 degT-40 Front [place]:-77 degT | | | Horizontal [place]:8 degT Wave [place]:51 degS-T Horizontal [place]:21 degS-T | | | Front [place]:83 degSeverity:- ABNORMAL ECG -INTERP:SINUS | | | RHYTHMINTERP:VENTRICULAR PREMATURE COMPLEXINTERP:RBBB AND | | | LAFBINTERP:LEFT VENTRICULAR HYPERTROPHYElectronically signed by: | | | ANDREAS MAXWELL 01-18-2019 07:24:33 | | |QTcF:467 ms | | |QRS Horizontal [place]:150 deg | | |QRS [place]:-35 deg | | |I-40 Horizontal [place]:34 deg | | |I-40 Front [place]:74 deg | | |T-40 Horizontal [place]:151 deg | | |T-40 Front [place]:-77 deg | | |T Horizontal [place]:8 deg | | |T Wave [place]:51 deg | | |S-T Horizontal [place]:21 deg | | |S-T Front [place]:83 deg | | |Severity:- ABNORMAL ECG - [...] + + + + + | [facility] | [address] | [place] [address] | [phone] | + + + + + POC [...] | POC | Performed by [facility] [address] | | [address], [place], [place] | | HEART | | | | [address] | | MEDICAL | | | | [...] | + + + + + | [facility] | [address] | [place] [address] | | | [facility] | [...] scheduled: AC, NPO, Daytime | | | 8700-5495 Use NIGHT DOSE for | | | doses scheduled: HS, 3AM, | | | Nighttime 0109-3945 If the BG is | | | [...]
--- OUTSIDE RECORDS SUMMARY | ~2020-02-10 | XMS | Encounter Summary ---
Demographics + + + | Address | [address] | | | [place] [address] | + + + | Home Phone [...] Team Providers + +------+ + | Care Videographer Name | Role | Phone | + +------+ + | Long Copeland MD | PCP | | + +------+ + Reason for Visit + +--------+ + | Reason | Onset | Comments | | | Date | | + +--------+ + | Hospital Admission | 10/13/ | | | | 2020 | | + +--------+ + Encounter Details +--------+ + + + + | Date | Type | Department | Care Team | Description | +--------+ + + + + | 10/13/ | Telephone | [facility] | Gail Mckeon MD | Hospital Admission | | 2020 | | Clinics at S | [address] [facility] | | | | | [place] [address] [place], | | | | | [facility] | [place] [address] | | | | | Health and Healing, | [phone] | | | | | [address] | | | | | | [place], [place] | | | | | | [address] | | | | | | [phone] | | | +--------+ + + + [...] Notes Telephone Encounter - Jeanette Isbell - 10/22/2019 3:47 PM PDTTeam Coordinator Documentation : Subject: Note PET scan report has been uploaded to the Smart Adventure tab. elephone Encounter - Cassy Win RN - 10/18/2019 2:03 PM PDTI called Ashly to f/up on hospitalization and she byrnse s been discharged but is having troublesome diarrhea. She is on liquid diet and is consuming lots of fluids. I told her to consider presenting to ED again if she is unable to keep flui ds down. She reports she is miserable and expresses a great amount of sadness and hopelessne ss about the medical community's inability to control her symptoms, as well as her prognosis which she perceives to be quite poor. I relayed empathy and our willingness to help in what ever ways we can. She is scheduled for PCP appt and PET scan tomorrow at [facility]. I told Ashly that I w ould get Dr. Bower's input and get back to her. Additionally, I will ask TC to obtain PET sc an results. elephone Encounter - Gail Mckeon MD - 10/14/2019 8:26 PM PDTReceived a call from [facility] pro vider Dr. Cassie Barajas, that patient is currently admitted with another bowel obstruction. Provider is unable to view Epic and was hoping for advice on patient. Dr. Barajas states that the family says they spoke with Dr. Bower today and that he is recommending she get some matilda cathi (they do not know what). Dr. Barajas tells me that patient has been evaluated for surgery numerous times at [facility] (admitted many times recently for bowel obstruction) but was deemed not a candidate by their surgical team. Patient will be admitted for IVF and NG tube decompression. Dr. Barajas requests a call back from Dr. Bower to clarify patients plan - please call . documented in t his encounter Plan of Treatment +--------+ + + + + | Date | Type | Specialty | Care Team | Description | +--------+ + + + + | 05/08/ | Telephone-S | Hematology & | Rodriguez Bower MD | | | 2020 | suyapa | Oncology | [address] | | | | | | [place] | | | | | | [address] | | | | | | [phone] | | | | | | | | +--------+ + + + + documented as of this encounter Visit Diagnoses Not on filedocumented in this encounter"
--- OUTSIDE RECORDS SUMMARY | ~2020-02-10 | XMS | Encounter Summary ---
Demographics + + + | Address | [address] | | | [place] [address] | + + + | Home Phone [...] Providers + +------+ + | Care Program Engineer Name | Role | Phone | + +------+ + | Long Copeland MD | PCP | | + +------+ + Encounter Details +--------+ + + + + | Date | Type | Department | Care Team | Description | +--------+ + + + + | 10/21/ | Abstract | Dig[facility] | Clinic, Surgery | | | 2020 | | [place] [address] [address] | | | | | | [facility] | | | | | | for Health and | | | | | | Healing, [address] | | | | | | [place], [place] | | | | | | [address] | | | | | | [phone] | | | +--------+ + + + [...] [address] | | | | | | [place], [place] | | | | | | [address] | | | | | | [phone] | | | | | | | | +--------+ + + + + documented as of this encounter Visit Diagnoses Not on filedocumented in this encounter"
--- OUTSIDE RECORDS SUMMARY | ~2020-02-10 | XMS | Encounter Summary ---
Demographics + + + | Address | [address] | | | [place] [address] | + + + | Home Phone [...] Team Providers + +------+ + | Care Shipfitters Supervisor Name | Role | Phone | [...] | | | Gastric | MD [address] | | | | | | mian | [address] | | | | | | bhargav ([facility]) | [place], | | | | | | Procedures | [place] | | | | | | CT ABDOMEN | [address] | | | | | | AND PELVIS W | Phone: | | | | | | IV CONTRAST | [phone] | | | | | | | Fax: | | | | | | | [phone] | | + +--------+ + + + [...] | | | Gastric | MD [address] | | | | | | adenocarcino | [address] | | | | | | bhargav ([facility]) | [place], | | | | | | Procedures | [place] | | | | | | CT ABDOMEN | [address] | | | | | | AND PELVIS W | Phone: | | | | | | IV CONTRAST | [phone] | | | | | | | Fax: | | | | | | | [phone] | | + +--------+ + + + + Encounter Details +--------+ + + + + | Date | Type | Department | Care Team | Description | +--------+ + + + + | 02/02/ | Hospital | Radiology/Imaging | Cristel Galicia MD | | | 2019 | Encounter | Lab at [facility] [address] | | | | | [facility] [facility] | [place], [place] | | | | | [facility], | [address] | | | | | [address] | [phone] | | | | | Floor [place], [place] | | | | | | [address] | | | | | | [phone] | | | +--------+ + + + [...] nostril | | | | | | Rochelle | once daily. | | | | [...] [address] | | | | | | [place], [place] | | | | | | [address] | | | | | | [phone] | | | | | | | [...] (H) | 0.6 - 1.1 mg/dL | [facility], | | | POC | | | [...] | + + + + + | [facility] | [address] [facility] | [place] [address] | | | OF CARE TESTS | [...]
--- OUTSIDE RECORDS SUMMARY | ~2020-02-10 | XMS | Encounter Summary ---
Demographics + + + | Address | [address] | | | [place] [address] | + + + | Home Phone [...] Author | [facility] | | [...] + | Matthew Ramirez | ECON | [address] | | | | | [place] | | | | | [address] | | + + + + + Care Team Providers + +------+ + | Care Tape Controlled Machine Stitcher Name | Role | Phone | + [...] | | cancer | Luis Richards, | [place] | | | | | metastasized | MD [address] | [place] | | | | | to multiple | [address] | [address] | | | | | sites, left | [address] | Phone: | | | | | ([facility]) | [place], | [phone] | | | | | Procedures | [place] [address] | Fax: | | | | | PET CT Skull | Phone: | [phone] | | | | | Base To Mid | [phone] | | | | | | Thigh | Fax: | | | | | | | [phone] | | +--------+--------+ + + + + [...] | | | | cancer | Luis Maurice, | [place] | | | | | metastasized | MD [address] | [place] | | | | | to multiple | [address] | [address] | | | | | sites, left | [address] | Phone: | | | | | (HCC) | [place], | [phone] | | | | | Procedures | [place] [address] | Fax: | | | | | PET CT Skull | Phone: | [phone] | | | | | Base To Mid | [phone] | | | | | | Thigh | Fax: | | | | | | | [phone] | | +--------+--------+ + + + + Encounter Details +--------+ + + + + | Date | Type | Department | Care Team | Description | +--------+ + + + + | 07/21/ | Hospital | [facility] | [place], | Breast cancer | | 2020 | Encounter | MED CTR PET SCAN | Luis Richards MD [address] | metastasized to | | | | [address] [place] | [address] | multiple sites, left | | | | [place] [address] | [address] [place] | ([facility]) | | | | [phone] | [address] | | | | | | | [...] | | | | | ol (ADVAIR, WIJerryELA | morning. Advair | | | | [...] | | | | | | ol (ADVJAMAR MARINOELA | needed (in evening | | | [...] + -----+ | Exam: PET CT | [facility] | | SKULL BASE TO [...] millicur | | | | Intravenous, ONCE, [facility] 07/22/19 at | | AM PDT | ies | | | | 0930, For 1 dose | | | | | | + +--------+ + +------+------+ +---+---+ | | | +---+---+ documented in this encounter
--- OUTSIDE RECORDS SUMMARY | 2020-02-10 17:32 | XMS ---
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 [place] VISIT COUNT (12 MO.) Sean Gilbert TOTAL 6 NOTE: Visits indicate total known visits. ED/UCC VISIT TRACKING (12 MO.) 02/10/2020 15:24 [facility] [place] TYPE: Emergency COMPLAINT: - LOW BLOOD PRESSURE, DEHYDRATED 10/14/2019 14:41 [facility] [place] TYPE: Emergency [...] (postinfection) - Essential (primary) hypertension - Other alf (current) drug therapy - Other specified abnormal findings of blood chemistry - Nausea with vomiting, unspecified - retirement (current) use of opiate analgesic 05/06/2019 22:17 [facility] [place] TYPE: Emergency COMPLAINT: - VOMITING INPATIENT VISIT TRACKING (12 MO.) 10/14/2019 14:42 [facility] [place] TYPE: Observation COMPLAINT: - SMALL BOWEL OBSTRUCTION DIAGNOSES: - Malignant neoplasm of unspecified site of unspecified female - Essential (primary) hypertension - Chronic obstructive pulmonary disease, unspecified - Hyperlipidemia, unspecified - Gout, unspecified - Unspecified abdominal pain - Effect of reduced temperature, unspecified, initial encounter - Allergy status to sulfonamides status - Contact with and (suspected) exposure to other viral communic - Unspecified intestinal obstruction, unspecified as to partial - 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 - Fibromyalgia - Hypomagnesemia - Malignant (primary) neoplasm, unspecified - Chronic obstructive pulmonary disease, unspecified - Hypokalemia - Urinary tract infection, site not specified - Personal history of nicotine dependence - retirement (current) use of non-steroidal anti-inflammatories - Essential (primary) hypertension 06/29/2019 07:00 [facility] [place] TYPE: Medical Surgical COMPLAINT: - BOWEL OBSTRUCTION DIAGNOSES: - Pure hypercholesterolemia, unspecified - Essential (primary) hypertension - Pure hypercholesterolemia, unspecified - retirement (current) use of non-steroidal anti-inflammatories - Fibromyalgia - Constipation, unspecified - Secondary malignant neoplasm of unspecified site - Allergy status to sulfonamides status - Personal history of malignant neoplasm of cervix uteri - Unspecified intestinal obstruction, unspecified as to partial - Chronic obstructive pulmonary disease, unspecified - Generalized abdominal pain - Unspecified intestinal obstruction, unspecified as to partial - Essential (primary) hypertension - retirement (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 - superintendent terminal (current) use of opiate analgesic - Diverticulosis of intestine, part unspecified, without perfor - Allergy status to sulfonamides status - Constipation, unspecified - Fibromyalgia - 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 - Malignant neoplasm of unspecified site of unspecified female - Chronic obstructive pulmonary disease, unspecified - retirement (current) use of non-steroidal anti-inflammatories - Secondary malignant neoplasm of unspecified site - Personal history of malignant neoplasm of cervix uteri - Personal history of nicotine dependence - superintendent 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 (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 - Diverticulosis of intestine, part unspecified, without perfor - retirement (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 - Malignant neoplasm of unspecified site of unspecified female - Personal history of nicotine dependence 05/07/2019 12:09 [facility] [place] TYPE: Medical Surgical COMPLAINT: - SBO DIAGNOSES: - retirement (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 - Other alf (current) drug therapy - Malignant neoplasm of unspecified site of unspecified female - superintendent terminal (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 - retirement (current) use of selective estrogen receptor modula - Intestinal adhesions [bands], unspecified as to partial versu - Other alf (current) drug therapy - Unspecified intestinal obstruction, unspecified as to partial - Allergy status to sulfonamides status - Secondary malignant neoplasm of other digestive organs - Allergy status to sulfonamides status - Malignant neoplasm of unspecified site of unspecified female - Intestinal adhesions [bands], unspecified as to partial versu - superintendent terminal (current) use of selective estrogen receptor modula - Secondary malignant neoplasm of other digestive organs [email or web address]
--- NOTE | 2020-02-11 13:59 | EKG ---
[facility] [address] [facility] [place] [address] Signed Normal sinus rhythm with sinus arrhythmia Right bundle branch block Left anterior fascicular block Bifascicular block Left ventricular hypertrophy with repolarization abnormality Cannot rule out Anterior infarct , age undetermined Abnormal ECG When compared with ECG of 07-MAY-2019 12:19, No significant change was found Confirmed by EMERITA SCHNEIDER DO ([id number]) on 02/11/2020 1:59:27 PM Electronically Signed By: EMERITA SCHNEIDER DO 02/11/20 1359 PATIENT NAME: HOWIE GOMEZ Electrocardiogram DATE OF : 36 PHYSICIAN: EMERITA SCHNEIDER DO REPORT #: [id number] REPORT IS CONFIDENTIAL AND NOT TO BE RELEASED WITHOUT AUTHORIZATION
== END ==
LOC: ED 15:23
DX: N39.0 Urinary tract infection, site not specified (principal); N17.9 Acute kidney failure, unspecified; E86.0 Dehydration; D64.9 Anemia, unspecified; E87.1 Hypo-osmolality and hyponatremia; J44.9 Chronic obstructive pulmonary disease, unspecified; Z85.3 Personal history of malignant neoplasm of breast; I10 Essential (primary) hypertension; Z88.2 Allergy status to sulfonamides; Z79.899 Other long term (current) drug therapy
CPT/HCPCS: 71045; 80053; 81001; 83735; 84484; 85025; 93005; 93010; 96374; 99285-25; J0696; J7030